=== PATIENT | male | born 1945 | race Caucasian/White ===

== ENCOUNTER → 2017-12-11 06:11 | Outpatient (CLI) | payer MEDICARE, SELFPAY ==
[2017-12-11 08:11] LABS: Hemoglobin A1c 7.4 % (4.2-6.3)
[2017-12-11 08:38] LABS: Anion Gap 8 (5-15); BUN 29 mg/dL (7-18); BUN/Creat Ratio 14.4 RATIO (10-20); Chloride 105 mmol/L (98-107); Creatinine, Serum 2.02 mg/dL (0.70-1.30); EST Glomerular Filtration Rate 35 mL/min (>60); Est Glom Filt Rate - Afr Amer 42 mL/min (>60); Glucose 84 mg/dL (74-106); Potassium 4.3 mmol/L (3.5-5.1); Sodium Level 136 mmol/L (136-145)
== END ==
PROVIDERS: Family Provider Family Medicine; PCP Family Medicine; Visit Provider Family Medicine
DX: E11.9 Type 2 diabetes mellitus without complications (principal); R97.20 Elevated prostate specific antigen [PSA]
CPT/HCPCS: 36415; 80048; 83036; 84153

== ENCOUNTER → 2018-01-30 09:54 | Outpatient (CLI) | payer MEDICARE, SELFPAY ==
[2018-01-30 11:20] LABS: AST(SGOT) 19 U/L (15-37); Alanine Aminotransfer ALT/SGPT 20 U/L (16-61); Albumin, Serum 3.7 g/dL (3.2-5.0); Alkaline Phosphatase 96 U/L (45-117); Bilirubin, Direct 0.17 mg/dL (0.00-0.30); Cholesterol 131 mg/dL (200); Globulin 3.8 g/dL (2.2-4.2); High Density Lipoprotein 36 mg/dL; Protein, Total 7.5 g/dL (6.4-8.2); Triglycerides 146 mg/dL; Very Low Density Lipoprotein 29 mg/dL (5-40)
== END ==
PROVIDERS: Physician Assistant Medical; Family Provider Family Medicine; PCP Family Medicine; Visit Provider Internal Medicine Cardiovascular Disease
DX: E78.5 Hyperlipidemia, unspecified (principal); I10 Essential (primary) hypertension; I25.810 Atherosclerosis of coronary artery bypass graft(s) without angina pectoris; E11.9 Type 2 diabetes mellitus without complications; I25.5 Ischemic cardiomyopathy; Z79.899 Other long term (current) drug therapy
CPT/HCPCS: 36415; 80061; 80076

== ENCOUNTER → 2018-03-27 08:25 | Outpatient (CLI) | payer MEDICARE, SELFPAY ==
[2018-03-27 08:48] LABS: Absolute Lymphocyte Count 2.49 X10^3/ul (0.83-4.51); Absolute Neutrophil Count 4.3 X10^3/uL (2.0-7.7); Basophil# 0.02 X10^3/uL; Basophil% 0.3 % (0-1); Eosinophil# 0.17 X10^3/uL; Eosinophils% 2.2 % (0-5); Hematocrit 35.6 % (40-54); Hemoglobin 11.5 g/dl (13.0-16.5); Lymphocyte # 2.49 X10^3/ul (4.0); Lymphocyte % 32.8 % (19-41); Mean Corp Hgb Conc 32.3 g/gl (32-36); Mean Corpuscular Volume 89.9 fL (80-94); Mean Platelet Vol. 11.1 fl (6.2-12.0); Monocyte# 0.59 X10^3/uL; Monocyte% 7.8 % (0-10); Neutrophil # 4.31 X10^3/uL (2.7-7.7); Neutrophil % 56.8 % (47-70); Platelet Count 234 K/mm3 (150-450); RBC Distribution Width CV 13.1 % (11.6-14.6); Red Blood Count 3.96 M/mm3 (4.6-6.2); White Blood Count 7.6 K/mm3 (4.4-11.0)
[2018-03-27 08:49] LABS: POSITIVE COUNT NO; POSITIVE DIFFERENTIAL NO; POSITIVE MORPHOLOGY NO
[2018-03-27 09:04] LABS: Hemoglobin A1c 6.9 % (4.2-6.3)
[2018-03-27 09:22] LABS: Anion Gap 7 (5-15); BUN 22 mg/dL (7-18); BUN/Creat Ratio 10.3 RATIO (10-20); Calcium,Total 8.6 mg/dL (8.5-10.1); Chloride 103 mmol/L (98-107); Creatinine, Serum 2.14 mg/dL (0.70-1.30); EST Glomerular Filtration Rate 32 mL/min (>60); Est Glom Filt Rate - Afr Amer 39 mL/min (>60); Glucose 96 mg/dL (74-106); Potassium 3.9 mmol/L (3.5-5.1); Sodium Level 140 mmol/L (136-145)
== END ==
PROVIDERS: Family Provider Family Medicine; PCP Family Medicine; Visit Provider Nurse Practitioner Adult Health
DX: E11.9 Type 2 diabetes mellitus without complications (principal); N18.3 Chronic kidney disease, stage 3 (moderate); R97.20 Elevated prostate specific antigen [PSA]
CPT/HCPCS: 36415; 80048; 83036; 84153; 85025

== ENCOUNTER 2018-03-29 08:06 | Observation (INO) | payer MEDICARE, SELFPAY ==
[2018-03-29] VITALS (14 sets, daily range): BP systolic 109–176; BP diastolic 58–83; PULSE 65–92; RESP 16–18; TEMP 36–37.3; O2SAT 93–100; BMI 23.8; BMI 24.3
--- NOTE | 2018-03-29 08:16 | EKG12_ITS ---
Test Reason : MALE PAIN Blood Pressure : / mmHG Vent. Rate : 066 BPM Atrial Rate : 066 BPM P-R Int : 148 ms QRS Dur : 088 ms QT Int : 410 ms P-R-T Axes : 043 021 143 degrees QTc Int : 429 ms Sinus rhythm with frequent Premature ventricular complexes Septal infarct , age undetermined ST & T wave abnormality, consider inferolateral ischemia Abnormal ECG Confirmed by LOUANN CIFUENTES, GLENNA ([id number]), brands editor CARLITA VASQUEZ ([id number]) on 04/03/2018 3:40:17 PM Referred By: Nilda Irwin Confirmed By:GLENNA LEW MD
--- NOTE | 2018-03-29 08:16 | RAD_ITS ---
STUDY: X-RAY CHEST REASON FOR EXAM: Male, 72 years old. Pre-op abdominal surgery. TECHNIQUE: Single AP portable view of the chest. COMPARISON: 02/01/15. FINDINGS: The lungs are clear and expanded. Very mild pleural-parenchymal scarring in the lower left lung. There is no demonstrated pleural abnormality. Sternal cerclage wires and vascular clips are present from a prior sternotomy and coronary artery bypass graft procedure (CABG). Normal mediastinum and clay. Normal visualized pulmonary arteries. Normal visualized aortic arch and descending thoracic aorta. Normal visualized thoracic spine. Normal visualized ribs, clavicles, and shoulders. There is no demonstrated abnormality of the visualized soft tissue structures of the upper abdomen. RAD/Chest 1 View (Portable) IMPRESSION: No acute chest disease. Electronically Signed: Deejay Quiñones MD at 9:03 EDT , Service support ,
[2018-03-29] MEDS: 0.9% Normal Saline 1,000 ML 150 ML IV (08:37)
[2018-03-29] MEDS: Morphine 4 MG/ML Syringe IV (08:37)
[2018-03-29] MEDS: Ondansetron 4 MG/2 ML Vial IV ×2 (08:38→17:28)
--- NOTE | 2018-03-29 08:40 | ED.VISSUMM ---
- ER Visit Summary Date of Service: 03/29/18 Chief Complaint: Severe right groin pain History of Present Illness: The patient is a 72 M who presents because of severe right groin pain. He states he has had a hernia for some time and never had it checked. He does complain of mild nausea. He denies dysuria, frequency, urgency or hematuria. He denies fever, chills or night sweats. He denies any cardiac respiratory symptoms. He last ate last evening. He is not on any anticoagulant. He does have history of coronary disease and Dr. Zabala is his chief counsel. He also has history of type 2 diabetes and hypertension and GERD. PCP is Dr. ALAN Bagley. Physical Examination: Patient appears uncomfortable. Blood pressure elevated 165/70. HEENT exam is remarkable poor dentition. Trach is midline. There is no stridor. There is no carotid bruit. Heart is irregular. Monitor reveals frequent PVCs. Lungs are clear to auscultation. Abdomen soft nontender. Patient has a large right inguinal hernia that is not reducible. There are no penile lesions or discharge noted. There is no CVA tenderness. Neuro exam is nonfocal. Test Results: Portable chest x-ray reveals no acute process. Median sternotomy wires noted. Surgical clips noted as well. There is no acute process noted. Bony structures appear normal. X-ray was compared to film obtained on February 01, 2015 and unchanged. Twelve-lead EKG reveals a sinus rhythm with frequent premature ventricular beats. Decreased anterior force. Blood work is pending. Emergency Department Course and Treatment: Dr. Trinidad was paged after seeing patient and informed of his findings, history and past medical history. EKG, chest x-ray and appropriate blood work was obtained. IV was established and he was medicated with 4 mg of Zofran and 4 mg of morphine IV push. Treatment Plan: To OR Disposition: Per Dr. Derrick Henning Impression: 1. Non-reducible right inguinal hernia 2. History of coronary disease 3. History of type 2 diabetes 4. History of hypertension This note was generated with Orbsteration software. It may contain incorrect words, spelling, and punctuation that were not noted in review of the chart prior to signing ED Disposition - Plan for ED Patient: Chief Complaint: Male Pain/Injury Referrals: Saman Bagley MD [Primary Care Provider] -
--- NOTE | 2018-03-29 08:45 | ED.DCSUM_ITS ---
- ER Visit Summary Date of Service: 03/29/18 Chief Complaint: Severe right groin pain History of Present Illness: The patient is a 72 M who presents because of severe right groin pain. He states he has had a hernia for some time and never had it checked. He does complain of mild nausea. He denies dysuria, frequency , urgency or hematuria. He denies fever, chills or night sweats. He denies any cardiac respiratory symptoms. He last ate last evening. He is not on any anticoagulant. He does have history of coronary disease and Dr. Zabala is his suction plate roller hand. He also has history of type 2 diabetes and hypertension and GERD. PCP is Dr. ALAN Bagley. Physical Examination: Patient appears uncomfortable. Blood pressure elevated 165/70. HEENT exam is remarkable poor dentition. Trach is midline. There is no stridor. There is no carotid bruit. Heart is irregular. Monitor reveals frequent PVCs. Lungs are clear to auscultation. Abdomen soft nontender. Patient has a large right inguinal hernia that is not reducible. There are no penile lesions or discharge noted. There is no CVA tenderness. Neuro exam is nonfocal. Test Results: Portable chest x-ray reveals no acute process. Median sternotomy wires noted. Surgical clips noted as well. There is no acute process noted. Bony structures appear normal. X-ray was compared to film obtained on January and unchanged. Twelve-lead EKG reveals a sinus rhythm with frequent premature ventricular beats. Decreased anterior force. Blood work is pending. Emergency Department Course and Treatment: Dr. Trinidad was paged after seeing patient and informed of his findings, history and past medical history. EKG, chest x-ray and appropriate blood work was obtained. IV was established and he was medicated with 4 mg of Zofran and 4 mg of morphine IV push. Treatment Plan: To OR Disposition: Per Dr. Derrick Henning Impression: 1. Non-reducible right inguinal hernia 2. History of coronary disease 3. History of type 2 diabetes 4. History of hypertension This note was generated with MOBEXOation software. It may contain incorrect words, spelling, and punctuation that were not noted in review of the chart prior to signing ED Disposition - Plan for ED Patient: Chief Complaint: Male Pain/Injury Referrals: Saman Bagley MD [Primary Care Provider] -
[2018-03-29 08:53] LABS: Absolute Lymphocyte Count 2.64 X10^3/ul (0.83-4.51); Absolute Neutrophil Count 6.2 X10^3/uL (2.0-7.7); Basophil# 0.02 X10^3/uL; Basophil% 0.2 % (0-1); Eosinophil# 0.14 X10^3/uL; Eosinophils% 1.4 % (0-5); Hematocrit 37.4 % (40-54); Hemoglobin 12.4 g/dl (13.0-16.5); Lymphocyte # 2.64 X10^3/ul (4.0); Lymphocyte % 26.2 % (19-41); Mean Corp Hgb Conc 33.2 g/gl (32-36); Mean Corpuscular Volume 90.6 fL (80-94); Mean Platelet Vol. 11.7 fl (6.2-12.0); Monocyte# 1.11 X10^3/uL; Neutrophil # 6.16 X10^3/uL (2.7-7.7); Platelet Count 251 K/mm3 (150-450); RBC Distribution Width CV 12.8 % (11.6-14.6); RBC Distribution Width SD 41.7 fl (35.1-43.9); Red Blood Count 4.13 M/mm3 (4.6-6.2); White Blood Count 10.1 K/mm3 (4.4-11.0)
--- NOTE | 2018-03-29 08:53 | PCM.HP.STD ---
Problem List (1) Incarcerated right inguinal hernia Status: Acute History of Present Illness Date of Admission: 03/29/18 The patient is a 72 year old M who presents to the emergency room this morning. He presents with a 2 day history of severe right groin pain. He has had a many year history of a right anal hernia. There is been intermittently symptomatic but he never thought severe enough to deserve attention. Yesterday developed severe pain and bulging. He denies nausea or vomiting. He notes that there is been diaphoresis. His past history is notable for diabetes. He has had coronary bypass grafting 2 years ago. In 2013 he had congestive heart failure. He is diabetic and he has spontaneous eruptions of ulcers of both lower extremities. Primary care physician Dr. ALAN Bagley and vp research is Dr. Napoleon Zabala. The patient is complaining currently of severe right groin pain. An attempt was made by Dr. Lu to reduce it. That was not successful. 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) CAB04/30/2014 [facility], DIAG, SVG-OM, SVG-PDA RCA Atherosclerotic heart disease of [place] coronary artery without angina pectoris (Chronic) CAD (coronary artery disease) (Chronic) Cardiomyopathy, ischemic (Chronic) Pure hypercholesterolemia (Chronic) HTN (hypertension) (Chronic) Type II diabetes mellitus (Chronic) HLD (hyperlipidemia) (Chronic) Congestive heart failure (Chronic) Medical History: Medical History (Last Reviewed 02/07/18 @ 09:43 by Napoleon Zabala MD) Atherosclerosis of coronary artery bypass graft without angina pectoris (Chronic) I25.810 CAB04/30/2014 [facility], DIAG, SVG-OM, SVG-PDA RCA Atherosclerotic heart disease of [place] coronary artery without angina pectoris (Chronic) I25.10 Cardiomyopathy, ischemic (Chronic) I25.5 HTN (hypertension) (Chronic) I10 Type II diabetes mellitus (Chronic) E11.9 HLD (hyperlipidemia) (Chronic) E78.5 Congestive heart failure (Chronic) I50.9 Bilateral pleural effusion J90 Allergies No Known Allergies Allergy (Verified 03/29/18 08:17) Home Medications: Ambulatory Orders Medication Instructions Recorded Atorvastatin Calcium [Lipitor] 80 mg PO QHS 04/26/14 Glimepiride 4 mg PO DAILY 04/26/14 Aspirin [Aspirin, Baby] 81 mg PO DAILY@0800 09/29/14 Furosemide [Lasix] 40 mg PO DAILY #30 tab 10/15/14 carvedilol 12.5 mg tablet 12.5 mg PO BID #180 tab 01/28/18 escitalopram 10 mg tablet 10 mg PO QDAY 30 Days #30 tab 02/04/18 lisinopril 5 mg tablet 5 mg PO QDAY #90 tab 02/07/18 metformin 850 mg tablet 850 mg PO BID 30 Days #60 tab 02/07/18 pantoprazole 40 mg tablet,delayed 40 mg PO QDAY 30 Days #30 tab 02/07/18 release Surgical History: Surgical History (Last Reviewed 02/07/18 @ 09:43 by Napoleon Zabala MD) History of left heart catheterization (LHC) Z98.890 Left heart cath March 2012; LHC W/ IABP INsertion 04/27/14 History of thoracentesis Z98.890 Surgical History: coronary bypass surgery, - - CABG Smoking Status: Never smoker - *Family History Maternal Family History: Family History (Last Reviewed 02/07/18 @ 09:43 by Napoleon Zabala MD) Brother CAD (coronary artery disease) History Items: No pertinent history Sibling Family History: Family History (Last Reviewed 02/07/18 @ 09:43 by Napoleon Zabala MD) Brother CAD (coronary artery disease) History Items: Heart Disease Review of Systems Constitutional: Reports: Night Sweats Eyes: Denies: Blurred vision HEENT: Reports: Difficulty Hearing Cardiovascular: Reports: Claudication. Denies: Chest Pain, Chest Pressure Respiratory: Denies: Cough Gastrointestinal: Reports: Abdominal Pain Genitourinary: Denies: Dysuria Musculoskeletal: Denies: Arm Pain Skin: Reports: Wounds, -. Denies: Dryness Neurological: Denies: Balance problems Psychiatric: Denies: Anxiety VTE Information - Inpt Only VTE Present on Admission: No Patient Problems: Active and Suspected Problems (Last Reviewed 02/07/18 @ 09:43 by Napoleon Zabala MD) Incarcerated right inguinal hernia (Acute) - Physical Exam General: Alert, - - Patient is diaphoretic. Clearly uncomfortable. [place] respirations due to discomfort and pain. Lying supine HEENT: Atraumatic Oral: Moist Mucosa Neck: Supple, - - 3+ carotid pulses no bruits Lungs: Clear to auscultation Cardiovascular: Regular rate Abdomen: - - Abdomen is tightly distended, bowel sounds absent, very large right inguinal hernia with palpable bowel, tender to even light palpation, nonreducible, testicle cannot be from the loops of bowel Extremities: - - Areas of punctate ulceration bilateral lower extremities with erythema, no drainage Musculoskeletal: - - Muscle wasting of bilateral lower extremities noted. Calves are supple nontender Lymphatic: No Cervical, Supraclavicular, or Inguinal Adenopathy Neurological: Cranial nerves II-XII grossly intact Psych/Mental Status: Anxious Vital Signs Temp Pulse Resp BP Pulse Ox 97.9 F 65 18 169/76 H 99 03/29/18 08:41 03/29/18 08:41 03/29/18 08:41 03/29/18 08:41 03/29/18 08:41 Oxygen Delivery Method Room Air Weight: 138 lb 7.205 oz Body Mass Index (BMI) 23.8 Laboratory Tests Past 24 Hrs 03/29/18 03/29/18 03/29/18 08:40 08:40 08:40 WBC Pending RBC Pending Hgb Pending Hct Pending MCV Pending MCH Pending MCHC Pending RDW Pending RDW Differential Pending Plt Count Pending Neut % (Auto) Pending Absolute Neuts (auto) Pending Total Counted Pending PT Pending INR Pending APTT Pending Sodium Pending Potassium Pending Chloride Pending Carbon Dioxide Pending Anion Gap Pending BUN Pending Creatinine Pending Est GFR (MDRD) Af Amer Pending Est GFR (MDRD) Non-Af Pending BUN/Creatinine Ratio Pending Glucose Pending Calcium Pending Assessment/Plan All Active Problems (Last Reviewed 02/07/18 @ 09:43 by Napoleon Zabala MD) Incarcerated right inguinal hernia (Acute) Systolic CHF, acute on chronic (Acute) Dyspnea (Acute) 72-year-old gentleman who clearly is an acute abdominal and groin distress. It is evident that he has likely cecum and multiple loops of bowel incarcerated within a right inguinal hernia. The viability of the bowel is not clear. He is diaphoretic. EKG shows septal infarct age undetermined. ST and T-wave abnormality possible inferior lateral ischemia. I will consult cardiology. I recommended the patient a laparoscopic visualization of the bowel to assess for viability. Possible laparoscopic repair possible open repair possible laparotomy possible ileostomy possible colostomy. Possible utilization of mesh. The patient and his are aware that this is now a very high risk intervention. The patient may require ICU stay and ventilatory management postoperatively. He has had an opportunity to ask and have questions answered. He is received with surgical intervention. Derrick Henning M.D., F.A.C.S.
[2018-03-29 08:54] LABS: POSITIVE COUNT NO; POSITIVE DIFFERENTIAL NO; POSITIVE MORPHOLOGY NO
[2018-03-29 08:55] LABS: Bedside Glucose 131 mg/dL (70-110)
--- NOTE | 2018-03-29 09:01 | HP.PCM_ITS ---
Problem List (1) Incarcerated right inguinal hernia Status: Acute History of Present Illness Date of Admission: 03/29/18 The patient is a 72 year old M who presents to the emergency room this morning. He presents with a 2 day history of severe right groin pain. He has had a many year history of a right anal hernia. There is been intermittently symptomatic but he never thought severe enough to deserve attention. Yesterday developed severe pain and bulging. He denies nausea or vomiting. He notes that there is been diaphoresis. His past history is notable for diabetes. He has had coronary bypass grafting 2 years ago. In 2013 he had congestive heart failure. He is diabetic and he has spontaneous eruptions of ulcers of both lower extremities. Primary care physician Dr. ALAN Bagley and drawing frame tender is Dr. Napoleon Zabala. The patient is complaining currently of severe right groin pain. An attempt was made by Dr. Lu to reduce it. That was not successful. 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 ) CAB04/30/2014 [facility], DIAG, SVG-OM, SVG-PDA RCA Atherosclerotic heart disease of [place] coronary artery without angina pectoris (Chronic) CAD (coronary artery disease) (Chronic) Cardiomyopathy, ischemic (Chronic) Pure hypercholesterolemia (Chronic) HTN (hypertension) (Chronic) Type II diabetes mellitus (Chronic) HLD (hyperlipidemia) (Chronic) Congestive heart failure (Chronic) Medical History: Medical History (Last Reviewed 02/07/18 @ 09:43 by Napoleon Zabala MD) Atherosclerosis of coronary artery bypass graft without angina pectoris (Chronic ) I25.810 CAB04/30/2014 [facility], DIAG, SVG-OM, SVG-PDA RCA Atherosclerotic heart disease of [place] coronary artery without angina pectoris (Chronic) I25.10 Cardiomyopathy, ischemic (Chronic) I25.5 HTN (hypertension) (Chronic) I10 Type II diabetes mellitus (Chronic) E11.9 HLD (hyperlipidemia) (Chronic) E78.5 Congestive heart failure (Chronic) I50.9 Bilateral pleural effusion J90 Allergies No Known Allergies Allergy (Verified 03/29/18 08:17) Home Medications: Ambulatory Orders Medication Instructions Recorded Atorvastatin Calcium [Lipitor] 80 mg PO QHS 04/26/14 Glimepiride 4 mg PO DAILY 04/26/14 Aspirin [Aspirin, Baby] 81 mg PO DAILY@0800 09/29/14 Furosemide [Lasix] 40 mg PO DAILY #30 tab 10/15/14 carvedilol 12.5 mg tablet 12.5 mg PO BID #180 tab 01/28/18 escitalopram 10 mg tablet 10 mg PO QDAY 30 Days #30 tab 02/04/18 lisinopril 5 mg tablet 5 mg PO QDAY #90 tab 02/07/18 metformin 850 mg tablet 850 mg PO BID 30 Days #60 tab 02/07/18 pantoprazole 40 mg tablet,delayed 40 mg PO QDAY 30 Days #30 tab 02/07/18 release Surgical History: Surgical History (Last Reviewed 02/07/18 @ 09:43 by Napoleon Zabala MD) History of left heart catheterization (LHC) Z98.890 Left heart cath March 2012; LHC W/ IABP INsertion 04/27/14 History of thoracentesis Z98.890 Surgical History: coronary bypass surgery, - - CABG Smoking Status: Never smoker - *Family History Maternal Family History: Family History (Last Reviewed 02/07/18 @ 09:43 by Napoleon Zabala MD) Brother CAD (coronary artery disease) History Items: No pertinent history Sibling Family History: Family History (Last Reviewed 02/07/18 @ 09:43 by Napoleon Zabala MD) Brother CAD (coronary artery disease) History Items: Heart Disease Review of Systems Constitutional: Reports: Night Sweats Eyes: Denies: Blurred vision HEENT: Reports: Difficulty Hearing Cardiovascular: Reports: Claudication. Denies: Chest Pain, Chest Pressure Respiratory: Denies: Cough Gastrointestinal: Reports: Abdominal Pain Genitourinary: Denies: Dysuria Musculoskeletal: Denies: Arm Pain Skin: Reports: Wounds, -. Denies: Dryness Neurological: Denies: Balance problems Psychiatric: Denies: Anxiety VTE Information - Inpt Only VTE Present on Admission: No Patient Problems: Active and Suspected Problems (Last Reviewed 02/07/18 @ 09:43 by Napoleon Zabala MD ) Incarcerated right inguinal hernia (Acute) - Physical Exam General: Alert, - - Patient is diaphoretic. Clearly uncomfortable. [place] respirations due to discomfort and pain. Lying supine HEENT: Atraumatic Oral: Moist Mucosa Neck: Supple, - - 3+ carotid pulses no bruits Lungs: Clear to auscultation Cardiovascular: Regular rate Abdomen: - - Abdomen is tightly distended, bowel sounds absent, very large right inguinal hernia with palpable bowel, tender to even light palpation, nonreducible, testicle cannot be from the loops of bowel Extremities: - - Areas of punctate ulceration bilateral lower extremities with erythema, no drainage Musculoskeletal: - - Muscle wasting of bilateral lower extremities noted. Calves are supple nontender Lymphatic: No Cervical, Supraclavicular, or Inguinal Adenopathy Neurological: Cranial nerves II-XII grossly intact Psych/Mental Status: Anxious Vital Signs Temp Pulse Resp BP Pulse Ox 97.9 F 65 18 169/76 H 99 03/29/18 08:41 03/29/18 08:41 03/29/18 08:41 03/29/18 08:41 03/29/18 08:41 Oxygen Delivery Method Room Air Weight: 138 lb 7.205 oz Body Mass Index (BMI) 23.8 Laboratory Tests Past 24 Hrs 03/29/18 03/29/18 03/29/18 08:40 08:40 08:40 WBC Pending RBC Pending Hgb Pending Hct Pending MCV Pending MCH Pending MCHC Pending RDW Pending RDW Differential Pending Plt Count Pending Neut % (Auto) Pending Absolute Neuts (auto) Pending Total Counted Pending PT Pending INR Pending APTT Pending Sodium Pending Potassium Pending Chloride Pending Carbon Dioxide Pending Anion Gap Pending BUN Pending Creatinine Pending Est GFR (MDRD) Af Amer Pending Est GFR (MDRD) Non-Af Pending BUN/Creatinine Ratio Pending Glucose Pending Calcium Pending Assessment/Plan All Active Problems (Last Reviewed 02/07/18 @ 09:43 by Napoleon Zabala MD) Incarcerated right inguinal hernia (Acute) Systolic CHF, acute on chronic (Acute) Dyspnea (Acute) 72-year-old gentleman who clearly is an acute abdominal and groin distress. It is evident that he has likely cecum and multiple loops of bowel incarcerated within a right inguinal hernia. The viability of the bowel is not clear. He is diaphoretic. EKG shows septal infarct age undetermined. ST and T-wave abnormality possible inferior lateral ischemia. I will consult cardiology. I recommended the patient a laparoscopic visualization of the bowel to assess for viability. Possible laparoscopic repair possible open repair possible laparotomy possible ileostomy possible colostomy. Possible utilization of mesh. The patient and his are aware that this is now a very high risk intervention. The patient may require ICU stay and ventilatory management postoperatively. He has had an opportunity to ask and have questions answered. He is received with surgical intervention. Derrick Henning M.D., F.A.C.S.
[2018-03-29 09:17] LABS: Anion Gap 8 (5-15); BUN 22 mg/dL (7-18); Calcium,Total 9.2 mg/dL (8.5-10.1); Chloride 103 mmol/L (98-107); EST Glomerular Filtration Rate 31 mL/min (>60); Est Glom Filt Rate - Afr Amer 38 mL/min (>60); Estimated Creatinine Clearance 24.67 ml/min; Glucose 145 mg/dL (74-106); Sodium Level 138 mmol/L (136-145)
[2018-03-29 09:27] LABS: International Normalized Ratio 1.1; Prothrombin Time (Protime)PT. 13.7 SECONDS (11.7-14.9)
--- NOTE | 2018-03-29 09:36 | EKGRS_ITS ---
Test Reason : PRE OP Blood Pressure : / mmHG Vent. Rate : 063 BPM Atrial Rate : 063 BPM P-R Int : 136 ms QRS Dur : 104 ms QT Int : 434 ms P-R-T Axes : 047 006 179 degrees QTc Int : 444 ms Sinus rhythm with occasional Premature ventricular complexes ST & T wave abnormality, consider lateral ischemia Abnormal ECG Confirmed by LOUANN CIFUENTES, GLENNA ([id number]), art editor CARLITA VASQUEZ ([id number]) on 04/03/2018 4:05:04 PM Referred By: Nilda Irwin Confirmed By:GLENNA LEW MD
--- NOTE | 2018-03-29 11:19 | PCM.CONS.C ---
Problem List (1) CAD (coronary artery disease) Status: Chronic Qualifiers: Coronary Disease-Associated Artery/Lesion type: bypass graft [place] vs. transplanted heart: [place] heart Associated angina: without angina Qualified Code(s): I25.810 - Atherosclerosis of coronary artery bypass graft(s) without angina pectoris (2) S/P CABG (coronary artery bypass graft) Status: Chronic (3) Cardiomyopathy, ischemic Status: Chronic (4) CHF (congestive heart failure) Status: Chronic Qualifiers: Heart failure type: systolic (5) HLD (hyperlipidemia) Status: Chronic (6) HTN (hypertension) Status: Chronic (7) Type II diabetes mellitus Status: Chronic (8) Incarcerated right inguinal hernia Status: Acute (9) Preop cardiovascular exam Status: Acute Reason for Consult Date of Consultation: 03/29/18 History of Present Illness: The patient is a 72 year old white male with a past cardiovascular history of underlying CAD, status post CABG, ischemic mediated cardiomyopathy, chronic systolic CHF, hyperlipidemia, and hypertension who now presents for an incarcerated inguinal hernia requiring urgent/emergent surgical intervention. The patient, since his last outpatient cardiovascular visit on 02/07/2018, states that he had been doing well with respect to his cardiovascular status. He has denied any ongoing chest discomfort or difficulty breathing at rest or with exertion. There has been no orthopnea, PND, or peripheral pitting edema. He has not had any near-syncope or syncope. He states that his inguinal hernia has markedly enlarged within the last 1-2 days and has become painful. He presented to the emergency department for evaluation. He has been deemed to have an incarcerated inguinal hernia requiring urgent/emergent surgical intervention. He has had a preoperative ECG performed. His ECG has demonstrated underlying sinus rhythm with PVCs with ST and T-wave changes potentially compatible with inferolateral myocardial ischemia. His ECG was repeated without significant change. It was compared to a previous ECG from 02/01/2015. Again there were similar type findings. The patient has undergone previous evaluation on 10/14/2014 which included a transthoracic echocardiogram. At that time he had moderately severe segmental systolic dysfunction with an LVEF of 30% with mild diffuse mitral valve thickening with mild papillary muscle dysfunction with mild diffuse aortic valve thickening and mild focal aortic valve calcification. He did have a calcified aortic root. [] Past Medical History Allergies/Adverse Reactions: Allergies No Known Allergies Allergy (Verified 03/29/18 08:17) Home Medications: Ambulatory Orders Medication Instructions Recorded Atorvastatin Calcium [Lipitor] 80 mg PO QHS 04/26/14 Glimepiride 4 mg PO DAILY 04/26/14 Aspirin [Aspirin, Baby] 81 mg PO DAILY@0800 09/29/14 Furosemide [Lasix] 40 mg PO DAILY #30 tab 10/15/14 carvedilol 12.5 mg tablet 12.5 mg PO BID #180 tab 01/28/18 escitalopram 10 mg tablet 10 mg PO QDAY 30 Days #30 tab 02/04/18 lisinopril 5 mg tablet 5 mg PO QDAY #90 tab 02/07/18 metformin 850 mg tablet 850 mg PO BID 30 Days #60 tab 02/07/18 pantoprazole 40 mg tablet,delayed 40 mg PO QDAY 30 Days #30 tab 02/07/18 release Past Medical History (Chronic Problems): Chronic Problems (Last Reviewed 02/07/18 @ 09:43 by Napoleon Zabala MD) S/P CABG (coronary artery bypass graft) (Chronic) CHF (congestive heart failure) (Chronic) Claudication of both lower extremities (Chronic) Atherosclerosis of coronary artery bypass graft without angina pectoris (Chronic) CAB04/30/2014 [facility] [place], DIAG, SVG-OM, SVG-PDA RCA Atherosclerotic heart disease of [place] coronary artery without angina pectoris (Chronic) CAD (coronary artery disease) (Chronic) Cardiomyopathy, ischemic (Chronic) Pure hypercholesterolemia (Chronic) HTN (hypertension) (Chronic) Type II diabetes mellitus (Chronic) HLD (hyperlipidemia) (Chronic) Congestive heart failure (Chronic) Surgical History: coronary bypass surgery, - - CABG - *Family History Maternal Family History: Family History (Last Reviewed 02/07/18 @ 09:43 by Napoleon Zabala MD) Brother CAD (coronary artery disease) History Items: No pertinent history Sibling Family History: Family History (Last Reviewed 02/07/18 @ 09:43 by Napoleon Zabala MD) Brother CAD (coronary artery disease) History Items: Heart Disease Lives: Spouse/ Significant Other Smoking Status: Never smoker Alcohol: None Drugs: None Review of Systems - Review of Systems General: Denies: Fever, Night Sweats, Fatigue Cardiovascular: Denies: Chest Discomfort, Shortness of Breath, Orthopnea, PND, Peripheral Edema, Palpitations, Lightheadedness, Dizziness, Near Syncope, Syncope Respiratory: Denies: Cough, Sputum Production, Hemoptysis Gastrointestinal: Reports: Abdominal Discomfort. Denies: Hematemesis, Hematochezia, Melena Genitourinary: Reports: - - Enlarged scrotum compatible with the diagnosis of an incarcerated inguinal hernia. Denies: Dysuria, Hematuria Skin: Denies: Rash Subjectve: This is a 72-year-old white male who appears to be resting comfortably at the moment in no acute cardiovascular distress. Objective: Vital Signs Temp Pulse Resp BP Pulse Ox 97.9 F 65 18 169/76 H 99 03/29/18 08:41 03/29/18 09:23 03/29/18 09:23 03/29/18 09:23 03/29/18 09:23 Oxygen Delivery Method Room Air Weight: 138 lb 7.205 oz Body Mass Index (BMI) 23.8 General: Awake, Alert, Oriented x 3, Cooperative, No Acute Distress HEENT: Atraumatic, Normocephalic, PERRL, EOMI, Sclera Non Icteric Oral: Moist Mucosa Neck: Supple, Good ROM, No JVD Lungs: Clear to auscultation Cardiovascular: Regular Rhythm, Premature Ectopic Beats, Normal S1, Normal S2 Vascular: No Carotid Bruits Abdomen: Bowel Sounds Present, Soft Genitalia: Scrotal Edema Extremities: No Cyanosis, No Clubbing, No edema Neurological: No Focal Motor or Sensory Deficit Psych/Mental Status: Appropriate, Normal Affect 03/29/18 08:40: WBC 10.1, RBC 4.13 L, Hgb 12.4 L, Hct 37.4 L, MCV 90.6, MCH 30.0, MCHC 33.2, RDW 12.8, RDW Differential 41.7, Plt Count 251, MPV 11.7, Immature Gran % (Auto) 0.200, Neut % (Auto) 61.0, Lymph % (Auto) 26.2, [place] % (Auto) 11.0 H, Eos % (Auto) 1.4, Baso % (Auto) 0.2, Absolute Neuts (auto) 6.2, Total Counted Not Reportable 03/29/18 08:40: PT 13.7, INR 1.1, APTT 29.0 03/29/18 08:40: Sodium 138, Potassium 4.0, Chloride 103, Carbon Dioxide 27.0, Anion Gap 8, BUN 22 H, Creatinine 2.20 H, Est GFR (MDRD) Af Amer 38 L, Est GFR (MDRD) Non-Af 31 L, BUN/Creatinine Ratio 10.0, Glucose 145 H, Calcium 9.2 03/29/18 08:40: Troponin I 0.016 Rhythm: Sinus rhythm; PVCs EKG: As noted above ECHO: As noted above Cardiac Cath: 04/27/2014: [facility]: LVEF reported at 20-25%; left main coronary artery patent; LAD with proximal 50% stenosis and mid to distal 70-80% stenosis; first diagonal branch with proximal 70% stenosis; LCx with proximal 90-99% stenosis; first OM with 70% stenosis; RCA with proximal 70-80% stenosis, mid 80-90% stenosis, and distal 70% stenosis; right PDA with 80% stenosis CT Surgery: 2013: [facility]: F[place] to the LAD-diagonal distal branch; SVG to the OM; SVG to the distal right PDA CXR: Preliminary evaluation: Post open heart surgery changes: Please see official report Assessment/Plan 1. CAD status post CABG The patient has no symptoms of acute coronary syndrome. He will continue medical management as deemed appropriate. It does not appear he requires additional cardiac diagnostic studies or therapeutic intervention at this time with respect to his underlying CAD status. 2. Ischemic mediated cardiomyopathy The patient does have an ischemic mediated cardiomyopathy. His overall LV systolic function has changed over time. This will need to be followed over time. In the interim he does not appear to have any acute symptoms with respect to acute on chronic systolic CHF. Thus she will continue medical management. 3. Chronic systolic CHF The patient has a history of chronic systolic CHF. At the moment he appears to be without any acute changes. He will continue medical therapy and follow-up. 4. Hyperlipidemia The patient should continue lipid-lowering therapy as part of his cardiovascular risk factor modification. 5. Hypertension The patient's blood pressure will need be followed. His medications can be adjusted as needed. 6. Diabetes mellitus The patient will continue under the care of internal medicine. 7. Incarcerated inguinal hernia The patient has been evaluated by Dr. Derrick Henning of general surgery and Dr. Anthony Martin of anesthesiology. He has been deemed in need of urgent/emergent surgery. 8. Preoperative cardiovascular evaluation At the present time the patient appears to be without acute cardiovascular symptoms. He is in need of urgent/emergent general surgery. It would be recommended that he have close monitoring of his cardiac rate, rhythm, and blood pressure during and after his surgical procedure. He should continue his medical therapy as best as possible in and around the time of his surgical procedure especially with respect to his beta-hernán therapy. Attempt should be made to avoid IV volume overload that may bring out acute on chronic systolic CHF symptoms/objective changes. Following surgery it would not be unreasonable to place the patient in a cardiac telemetry unit and/or ICU cardiovascular monitoring. The patient is, based on his previous cardiovascular condition, at an increased risk for adverse cardiovascular events from noncardiac surgery, however, hopefully with the patient appearing without acute cardiovascular symptoms and close monitoring these risk and be kept at a minimum. Comment: The above was discussed with Dr. Derrick Henning and Dr. Anthony Martin. This note was generated with [employer] dictation software. It may contain incorrect words, spelling, and punctuation that were not noted in checking the note before signing.
--- NOTE | 2018-03-29 11:29 | CON.PCM_ITS ---
Problem List (1) CAD (coronary artery disease) Status: Chronic Qualifiers: Coronary Disease-Associated Artery/Lesion type: bypass graft [place] vs. transplanted heart: [place] heart Associated angina: without angina Qualified Code(s): I25.810 - Atherosclerosis of coronary artery bypass graft(s) without angina pectoris (2) S/P CABG (coronary artery bypass graft) Status: Chronic (3) Cardiomyopathy, ischemic Status: Chronic (4) CHF (congestive heart failure) Status: Chronic Qualifiers: Heart failure type: systolic (5) HLD (hyperlipidemia) Status: Chronic (6) HTN (hypertension) Status: Chronic (7) Type II diabetes mellitus Status: Chronic (8) Incarcerated right inguinal hernia Status: Acute (9) Preop cardiovascular exam Status: Acute Reason for Consult Date of Consultation: 03/29/18 History of Present Illness: The patient is a 72 year old white male with a past cardiovascular history of underlying CAD, status post CABG, ischemic mediated cardiomyopathy, chronic systolic CHF, hyperlipidemia, and hypertension who now presents for an incarcerated inguinal hernia requiring urgent/emergent surgical intervention. The patient, since his last outpatient cardiovascular visit on 02/07/2018, states that he had been doing well with respect to his cardiovascular status. He has denied any ongoing chest discomfort or difficulty breathing at rest or with exertion. There has been no orthopnea, PND, or peripheral pitting edema. He has not had any near-syncope or syncope. He states that his inguinal hernia has markedly enlarged within the last 1-2 days and has become painful. He presented to the emergency department for evaluation. He has been deemed to have an incarcerated inguinal hernia requiring urgent/emergent surgical intervention. He has had a preoperative ECG performed. His ECG has demonstrated underlying sinus rhythm with PVCs with ST and T-wave changes potentially compatible with inferolateral myocardial ischemia. His ECG was repeated without significant change. It was compared to a previous ECG from 02/01/2015. Again there were similar type findings. The patient has undergone previous evaluation on 10/14/2014 which included a transthoracic echocardiogram. At that time he had moderately severe segmental systolic dysfunction with an LVEF of 30% with mild diffuse mitral valve thickening with mild papillary muscle dysfunction with mild diffuse aortic valve thickening and mild focal aortic valve calcification. He did have a calcified aortic root. [] Past Medical History Allergies/Adverse Reactions: Allergies No Known Allergies Allergy (Verified 03/29/18 08:17) Home Medications: Ambulatory Orders Medication Instructions Recorded Atorvastatin Calcium [Lipitor] 80 mg PO QHS 04/26/14 Glimepiride 4 mg PO DAILY 04/26/14 Aspirin [Aspirin, Baby] 81 mg PO DAILY@0800 09/29/14 Furosemide [Lasix] 40 mg PO DAILY #30 tab 10/15/14 carvedilol 12.5 mg tablet 12.5 mg PO BID #180 tab 01/28/18 escitalopram 10 mg tablet 10 mg PO QDAY 30 Days #30 tab 02/04/18 lisinopril 5 mg tablet 5 mg PO QDAY #90 tab 02/07/18 metformin 850 mg tablet 850 mg PO BID 30 Days #60 tab 02/07/18 pantoprazole 40 mg tablet,delayed 40 mg PO QDAY 30 Days #30 tab 02/07/18 release Past Medical History (Chronic Problems): Chronic Problems (Last Reviewed 02/07/18 @ 09:43 by Napoleon Zabala MD) S/P CABG (coronary artery bypass graft) (Chronic) CHF (congestive heart failure) (Chronic) Claudication of both lower extremities (Chronic) Atherosclerosis of coronary artery bypass graft without angina pectoris (Chronic ) CAB04/30/2014 [facility], DIAG, SVG-OM, SVG-PDA RCA Atherosclerotic heart disease of [place] coronary artery without angina pectoris (Chronic) CAD (coronary artery disease) (Chronic) Cardiomyopathy, ischemic (Chronic) Pure hypercholesterolemia (Chronic) HTN (hypertension) (Chronic) Type II diabetes mellitus (Chronic) HLD (hyperlipidemia) (Chronic) Congestive heart failure (Chronic) Surgical History: coronary bypass surgery, - - CABG - *Family History Maternal Family History: Family History (Last Reviewed 02/07/18 @ 09:43 by Napoleon Zabala MD) Brother CAD (coronary artery disease) History Items: No pertinent history Sibling Family History: Family History (Last Reviewed 02/07/18 @ 09:43 by Napoleon Zabala MD) Brother CAD (coronary artery disease) History Items: Heart Disease Lives: Spouse/ Significant Other Smoking Status: Never smoker Alcohol: None Drugs: None Review of Systems - Review of Systems General: Denies: Fever, Night Sweats, Fatigue Cardiovascular: Denies: Chest Discomfort, Shortness of Breath, Orthopnea, PND, Peripheral Edema, Palpitations, Lightheadedness, Dizziness, Near Syncope, Syncope Respiratory: Denies: Cough, Sputum Production, Hemoptysis Gastrointestinal: Reports: Abdominal Discomfort. Denies: Hematemesis, Hematochezia, Melena Genitourinary: Reports: - - Enlarged scrotum compatible with the diagnosis of an incarcerated inguinal hernia. Denies: Dysuria, Hematuria Skin: Denies: Rash Subjectve: This is a 72-year-old white male who appears to be resting comfortably at the moment in no acute cardiovascular distress. Objective: Vital Signs Temp Pulse Resp BP Pulse Ox 97.9 F 65 18 169/76 H 99 03/29/18 08:41 03/29/18 09:23 03/29/18 09:23 03/29/18 09:23 03/29/18 09:23 Oxygen Delivery Method Room Air Weight: 138 lb 7.205 oz Body Mass Index (BMI) 23.8 General: Awake, Alert, Oriented x 3, Cooperative, No Acute Distress HEENT: Atraumatic, Normocephalic, PERRL, EOMI, Sclera Non Icteric Oral: Moist Mucosa Neck: Supple, Good ROM, No JVD Lungs: Clear to auscultation Cardiovascular: Regular Rhythm, Premature Ectopic Beats, Normal S1, Normal S2 Vascular: No Carotid Bruits Abdomen: Bowel Sounds Present, Soft Genitalia: Scrotal Edema Extremities: No Cyanosis, No Clubbing, No edema Neurological: No Focal Motor or Sensory Deficit Psych/Mental Status: Appropriate, Normal Affect 03/29/18 08:40: WBC 10.1, RBC 4.13 L, Hgb 12.4 L, Hct 37.4 L, MCV 90.6, MCH 30.0 , MCHC 33.2, RDW 12.8, RDW Differential 41.7, Plt Count 251, MPV 11.7, Immature Gran % (Auto) 0.200, Neut % (Auto) 61.0, Lymph % (Auto) 26.2, [place] % (Auto) 11.0 H, Eos % (Auto) 1.4, Baso % (Auto) 0.2, Absolute Neuts (auto) 6.2, Total Counted Not Reportable 03/29/18 08:40: PT 13.7, INR 1.1, APTT 29.0 03/29/18 08:40: Sodium 138, Potassium 4.0, Chloride 103, Carbon Dioxide 27.0, Anion Gap 8, BUN 22 H, Creatinine 2.20 H, Est GFR (MDRD) Af Amer 38 L, Est GFR ( MDRD) Non-Af 31 L, BUN/Creatinine Ratio 10.0, Glucose 145 H, Calcium 9.2 03/29/18 08:40: Troponin I 0.016 Rhythm: Sinus rhythm; PVCs EKG: As noted above ECHO: As noted above Cardiac Cath: 04/27/2014: [facility]: LVEF reported at 20-25%; left main coronary artery patent; LAD with proximal 50% stenosis and mid to distal 70-80% stenosis; first diagonal branch with proximal 70% stenosis; LCx with proximal 90-99% stenosis; first OM with 70% stenosis; RCA with proximal 70- 80% stenosis, mid 80-90% stenosis, and distal 70% stenosis; right PDA with 80% stenosis CT Surgery: 2013: [facility]: [place] to the LAD-diagonal distal branch; SVG to the OM; SVG to the distal right PDA CXR: Preliminary evaluation: Post open heart surgery changes: Please see official report Assessment/Plan 1. CAD status post CABG The patient has no symptoms of acute coronary syndrome. He will continue medical management as deemed appropriate. It does not appear he requires additional cardiac diagnostic studies or therapeutic intervention at this time with respect to his underlying CAD status. 2. Ischemic mediated cardiomyopathy The patient does have an ischemic mediated cardiomyopathy. His overall LV systolic function has changed over time. This will need to be followed over time. In the interim he does not appear to have any acute symptoms with respect to acute on chronic systolic CHF. Thus she will continue medical management. 3. Chronic systolic CHF The patient has a history of chronic systolic CHF. At the moment he appears to be without any acute changes. He will continue medical therapy and follow-up. 4. Hyperlipidemia The patient should continue lipid-lowering therapy as part of his cardiovascular risk factor modification. 5. Hypertension The patient's blood pressure will need be followed. His medications can be adjusted as needed. 6. Diabetes mellitus The patient will continue under the care of internal medicine. 7. Incarcerated inguinal hernia The patient has been evaluated by Dr. Derrick Henning of general surgery and Dr. Anthony Martin of anesthesiology. He has been deemed in need of urgent/emergent surgery. 8. Preoperative cardiovascular evaluation At the present time the patient appears to be without acute cardiovascular symptoms. He is in need of urgent/emergent general surgery. It would be recommended that he have close monitoring of his cardiac rate, rhythm, and blood pressure during and after his surgical procedure. He should continue his medical therapy as best as possible in and around the time of his surgical procedure especially with respect to his beta-hernán therapy. Attempt should be made to avoid IV volume overload that may bring out acute on chronic systolic CHF symptoms/objective changes. Following surgery it would not be unreasonable to place the patient in a cardiac telemetry unit and/or ICU cardiovascular monitoring. The patient is, based on his previous cardiovascular condition, at an increased risk for adverse cardiovascular events from noncardiac surgery, however, hopefully with the patient appearing without acute cardiovascular symptoms and close monitoring these risk and be kept at a minimum. Comment: The above was discussed with Dr. Derrick Henning and Dr. Anthony Martin. This note was generated with [employer] dictation software. It may contain incorrect words, spelling, and punctuation that were not noted in checking the note before signing.
[2018-03-29] MEDS: Bupivacaine Mpf 0.5% 30 ML VIAL (11:55)
--- NOTE | 2018-03-29 12:08 | OP.PCM_ITS ---
Problem List (1) Incarcerated right inguinal hernia Status: Acute Report of Operation Date of Procedure: 03/29/18 Pre-Operative Diagnosis: Incarcerated right inguinal hernia Post-Operative Diagnosis: Congested multiple loops of small bowel within the right inguinal hernia with incarceration Surgery/Procedure Performed:: Laparoscopic right inguinal herniorrhaphy with reduction of incarcerated small bowel Description of Surgical Findings:: Timeout informed consent was obtained 2-year-old gent was taken the operating room. This is an emergency high risk case. He received 2 g of cefotetan. The abdomen sterilely prepped draped. 0.5% Marcaine was used as local anesthetic. Throughout the procedure a total of 30 cc was used. Skin sites were pre- anesthetized. A vertical umbilical incision was created holding sutures of 0 Vicryl placed varies needle inserted saline drop test performed the abdomen was insufflated with CO2 to pressure of 12 mmHg pressure. Pulmonary trocar inserted 10 lap scope was inserted over the joint trocar injuries five-minute trochars are placed in the right left lower quadrant. There is evidence of incarcerated small bowel within the right anal hernia. With careful trans- scrotal pressure is able to reduce the bowel. The bowel was noted to be markedly congested. There was free fluid in the abdomen. There is no perforation. The bowel was allowed to rest and appeared to pink up. I did not feel any of the bowel was necrotic. The peritoneum superior lateral to the internal ring was incised carried medially and extraordinary large hernia sac was encountered this was bluntly dissected free due to the absolute massive size of the hernia sac I elected to transect the sac and about its midportion I did that with Martines scissors. This allowed me then to completely reduce the peritoneum I dissected free until I had the direct space indirect space and femoral area clearly identified. I selected a Bard 3D max extra-large mesh for the right. I placed that and it nicely covered the defect area very nicely seating and placed a secured that medially superiolaterally with secure strap. Wonderful positioning was achieved. The peritoneum was then approximated with secure strap and Hem-o-roxana clips completely obliterating access to the mesh. The bowel was now reinspected it was noted it was carefully run from the terminal ileum that was noted be completely viable albeit still somewhat congested. Did not feel that any resection was required. The trochars removed the abdomen was deflated CO2 the fascia at the umbilicus approximated with interrupted 0 Vicryl figure 8 suture. Skin edges proximate interrupted 4 Monocryl subdermal stitches. Steri-Strips Telfa OpSite dressings applied. Sponge instrument and needle counts were reported the surgeon be correct. Specimens none. Drains none. Blood loss minimal. He was taken to the recovery area in satisfactory condition without apparent complication. Derrick Henning M.D., F.A.C.S. Type of Anesthesia:: General Anesthesiologist: Reese Olivares
--- NOTE | 2018-03-29 12:36 | EKG12_ITS ---
Test Reason : POST OP Blood Pressure : / mmHG Vent. Rate : 075 BPM Atrial Rate : 075 BPM P-R Int : 160 ms QRS Dur : 090 ms QT Int : 402 ms P-R-T Axes : 044 038 065 degrees QTc Int : 448 ms Sinus rhythm with occasional Premature ventricular complexes Left ventricular hypertrophy with repolarization abnormality Anteroseptal infarct , age undetermined Abnormal ECG Confirmed by LOUANN CIFUENTES, GLENNA ([id number]), health editor CARLITA VASQUEZ ([id number]) on 04/03/2018 4:05:26 PM Referred By: Nilda Irwin Confirmed By:GLENNA LEW MD
[2018-03-29 12:45] LABS: Bedside Glucose 163 mg/dL (70-110)
[2018-03-29] MEDS: Lactated Ringers 1,000 ML 50 ML IV (13:08)
[2018-03-29 16:56] LABS: Bedside Glucose 167 mg/dL (70-110)
[2018-03-29] MEDS: Carvedilol 12.5 MG Tablet PO (22:30)
[2018-03-29] MEDS: Atorvastatin Calcium 80 MG Tablet PO (22:30)
[2018-03-29 22:40] LABS: Bedside Glucose 172 mg/dL (70-110)
[2018-03-30 03:00] VITALS: PULSE 81
[2018-03-30 04:00] VITALS: BP 124/68; PULSE 82; RESP 18; TEMP 36.9; O2SAT 93
--- NOTE | 2018-03-30 05:40 | PN.SURG_ITS ---
Patient Problems: Active and Suspected Problems (Last Reviewed 02/07/18 @ 09:43 by Napoleon Zabala MD ) Incarcerated right inguinal hernia (Acute) Preop cardiovascular exam (Acute) Subjective: Pt states minimal pain No flatus Stov[place] just removed No nausea - Physical Exam General: Alert, Oriented x3, Cooperative, No apparent distress Lungs: Clear to auscultation Abdomen: Soft, Non Tender, Hypoactive Bowel Sounds Vital Signs Temp Pulse Resp BP Pulse Ox 98.4 F 82 18 124/68 H 93 03/30/18 04:00 03/30/18 04:00 03/30/18 04:00 03/30/18 04:00 03/30/18 04:00 Oxygen Flow Rate (L/min) 2 Oxygen Delivery Method Room Air Weight: 146 lb 9.718 oz Body Mass Index (BMI) 24.3 Finger Stick Blood Glucose 163 Intake and Output for Last 24 Hours 03/28/18 03/29/18 03/30/18 23:59 23:59 23:59 Intake Total 1848 / 1848 Output Total 475 / 950 Balance 1373 / 898 POC Glucose 03/29/18 03/29/18 22:33 16:50 POC Glucose 172 H 167 H Medical Necessity - Tobacco Use Smoking Status: Never smoker Assessment/Plan All Active Problems (Last Reviewed 02/07/18 @ 09:43 by Napoleon Zabala MD) Incarcerated right inguinal hernia (Acute) Preop cardiovascular exam (Acute) Systolic CHF, acute on chronic (Acute) Dyspnea (Acute) Good progress If he is able to void and passes flatus then I will discharge later today
--- NOTE | 2018-03-30 05:55 | EKG12_ITS ---
Test Reason : AM EKG Blood Pressure : / mmHG Vent. Rate : 080 BPM Atrial Rate : 080 BPM P-R Int : 150 ms QRS Dur : 084 ms QT Int : 376 ms P-R-T Axes : 036 -02 137 degrees QTc Int : 433 ms Normal sinus rhythm ST & T wave abnormality, consider lateral ischemia Abnormal ECG When compared with ECG of 29-MAR-2018 12:41, MANUAL COMPARISON REQUIRED, DATA IS UNCONFIRMED Confirmed by LOUANN CIFUENTES, GLENNA ([id number]), editor in chief CARLITA VASQUEZ ([id number]) on 04/04/2018 10:41:06 AM Referred By: DR GOMEZ Confirmed By:GLENNA LEW MD
--- NOTE | 2018-03-30 05:57 | PCM.DC.GS ---
Discharge Diet: Light diet - advance as tolerated - if you have questions about your diet instructions, please talk to you doctor. Discharge Activity: May Not Drive - for 1 week or while taking narcotic pain medicine. May shower in (days): 1 Lifting Restrictions: 10 pounds Call your doctor if your incision/area has: Continuous Slow Oozing, Sudden Increased Bleeding, Increased Pain/ Swelling, Increased Redness, Foul Smelling Discharge Call your doctor if you observe: Fever of 101 or Higher Suture Line Care: Avoid Pulling/Pushing, Avoid Pinching/Bending Additional Dressing/Incision Instructions:: Change or remove dressing in 3 days. Leave steri-strips in place for 1 week. Allergies/Adverse Reactions: Allergies No Known Allergies Allergy (Verified 03/29/18 08:17) Medications to take at Discharge Atorvastatin Calcium [Lipitor] 80 mg PO QHS 04/26/14 Glimepiride 4 mg PO DAILY 04/26/14 Aspirin [Aspirin, Baby] 81 mg PO DAILY@0800 09/29/14 Furosemide [Lasix] 40 mg PO DAILY #30 tab 10/15/14 carvedilol 12.5 mg tablet 12.5 mg PO BID #180 tab 01/28/18 escitalopram 10 mg tablet 10 mg PO QDAY 30 Days #30 tab 02/04/18 lisinopril 5 mg tablet 5 mg PO QDAY #90 tab 02/07/18 metformin 850 mg tablet 850 mg PO BID 30 Days #60 tab 02/07/18 pantoprazole 40 mg tablet,delayed release 40 mg PO QDAY 30 Days #30 tab 02/07/18 Primary Care Physician: Saman Bagley MD [Primary Care Provider] - Please Follow Up With: Derrick Henning MD - [phone] When: Call to make an appointment to be seen in about 10 days.
[2018-03-30] MEDS: Polyethylene Glycol 3350 17 GM PACKET PO (06:13)
[2018-03-30 06:57] VITALS: PULSE 77
[2018-03-30 07:05] LABS: Bedside Glucose 152 mg/dL (70-110)
[2018-03-30 07:25] LABS: Anion Gap 7 (5-15); BUN 28 mg/dL (7-18); BUN/Creat Ratio 11.3 RATIO (10-20); Chloride 106 mmol/L (98-107); Creatinine, Serum 2.47 mg/dL (0.70-1.30); EST Glomerular Filtration Rate 27 mL/min (>60); Est Glom Filt Rate - Afr Amer 33 mL/min (>60); Estimated Creatinine Clearance 22.82 ml/min; Glucose 146 mg/dL (74-106); Potassium 4.2 mmol/L (3.5-5.1); Sodium Level 140 mmol/L (136-145)
[2018-03-30] MEDS: Aspirin 81 MG TAB.CHEW PO (08:27)
[2018-03-30] MEDS: Glimepiride 4 MG Tablet PO (08:27)
[2018-03-30 09:15] VITALS: BP 141/57; PULSE 82; RESP 16; TEMP 36.4; O2SAT 94
[2018-03-30] MEDS: Pantoprazole Sodium 40 MG Tablet PO (09:20)
[2018-03-30] MEDS: Escitalopram Oxalate 10 MG Tablet PO (09:20)
[2018-03-30] MEDS: Carvedilol 12.5 MG Tablet PO (09:20)
[2018-03-30] MEDS: Lisinopril 5 MG Tablet PO (09:20)
[2018-03-30] MEDS: Furosemide 40 MG Tablet PO (09:20)
== END 2018-03-30 10:30 | disposition home or self-care (01) ==
LOC: ED 08:29 → SDC 09:38 → AC 09:39 → PCU 15:56 → MS3 03-30 08:11 → SDC 03-30 08:12 → PCU 03-30 08:13
PROVIDERS: Anesthesiology; Internal Medicine Cardiovascular Disease; Admitting Provider Surgery; Emergency Provider Emergency Medicine; Family Provider Family Medicine; PCP Family Medicine; Visit Provider Surgery
PROC: (CPT 49650; principal; 2018-03-29 07:10)
DX: K40.30 Unilateral inguinal hernia, with obstruction, without gangrene, not specified as recurrent (principal); K21.9 Gastro-esophageal reflux disease without esophagitis; I25.10 Atherosclerotic heart disease of native coronary artery without angina pectoris; E11.622 Type 2 diabetes mellitus with other skin ulcer; L97.829 Non-pressure chronic ulcer of other part of left lower leg with unspecified severity; L97.819 Non-pressure chronic ulcer of other part of right lower leg with unspecified severity; E11.22 Type 2 diabetes mellitus with diabetic chronic kidney disease; I13.2 Hypertensive heart and chronic kidney disease with heart failure and with stage 5 chronic kidney disease, or end stage renal disease; N18.6 End stage renal disease; I50.23 Acute on chronic systolic (congestive) heart failure; I25.5 Ischemic cardiomyopathy; E78.5 Hyperlipidemia, unspecified; F41.9 Anxiety disorder, unspecified; Z95.1 Presence of aortocoronary bypass graft; Z79.82 Long term (current) use of aspirin; Z79.899 Other long term (current) drug therapy; Z79.84 Long term (current) use of oral hypoglycemic drugs
CPT/HCPCS: 49650; 36415; 71045; 80048; 82962; 84484; 85025; 85610; 85730; 93005; 96361; 96374; 96375; 96376; 99218; 99285; J7030; J7120; A4216; C1781; G0378; J0330; J2405

== ENCOUNTER → 2018-07-24 09:48 | Outpatient (CLI) | payer MEDICARE, SELFPAY ==
[2018-07-24 12:18] LABS: Absolute Lymphocyte Count 2.07 X10^3/ul (0.83-4.51); Basophil# 0.03 X10^3/uL; Basophil% 0.4 % (0-1); Eosinophils% 4.1 % (0-5); Hematocrit 35.8 % (40-54); Hemoglobin 11.4 g/dl (13.0-16.5); Lymphocyte # 2.07 X10^3/ul (4.0); Lymphocyte % 28.5 % (19-41); Mean Corp Hgb Conc 31.8 g/gl (32-36); Mean Corpuscular Hgb 28.7 pg (27.0-32.0); Mean Corpuscular Volume 90.2 fL (80-94); Mean Platelet Vol. 11.6 fl (6.2-12.0); Monocyte# 0.82 X10^3/uL; Monocyte% 11.3 % (0-10); Neutrophil # 4.04 X10^3/uL (2.7-7.7); Neutrophil % 55.6 % (47-70); Platelet Count 243 K/mm3 (150-450); RBC Distribution Width CV 13.3 % (11.6-14.6); RBC Distribution Width SD 43.8 fl (35.1-43.9); Red Blood Count 3.97 M/mm3 (4.6-6.2); White Blood Count 7.3 K/mm3 (4.4-11.0)
[2018-07-24 12:19] LABS: POSITIVE COUNT NO; POSITIVE DIFFERENTIAL NO; POSITIVE MORPHOLOGY NO
[2018-07-24 13:02] LABS: Anion Gap 9 (5-15); BUN 28 mg/dL (7-18); BUN/Creat Ratio 11.3 RATIO (10-20); Chloride 107 mmol/L (98-107); Creatinine, Serum 2.48 mg/dL (0.70-1.30); EST Glomerular Filtration Rate 27 mL/min (>60); Est Glom Filt Rate - Afr Amer 33 mL/min (>60); Glucose 120 mg/dL (74-106); Potassium 4.3 mmol/L (3.5-5.1); Sodium Level 142 mmol/L (136-145)
[2018-07-24 13:12] LABS: AST(SGOT) 23 U/L (15-37); Alanine Aminotransfer ALT/SGPT 26 U/L (16-61); Albumin, Serum 3.7 g/dL (3.2-5.0); Alkaline Phosphatase 100 U/L (45-117); Bilirubin, Direct 0.16 mg/dL (0.00-0.30); Cholesterol 139 mg/dL (200); Globulin 4.1 g/dL (2.2-4.2); High Density Lipoprotein 42 mg/dL; Protein, Total 7.8 g/dL (6.4-8.2); Triglycerides 127 mg/dL; Very Low Density Lipoprotein 25 mg/dL (5-40)
== END ==
PROVIDERS: Family Provider Family Medicine; PCP Family Medicine; Referring Provider Physician Assistant Medical; Visit Provider Physician Assistant Medical
DX: N18.3 Chronic kidney disease, stage 3 (moderate) (principal); E11.9 Type 2 diabetes mellitus without complications; E78.5 Hyperlipidemia, unspecified
CPT/HCPCS: 36415; 80048; 80061; 80076; 85025

== ENCOUNTER → 2019-01-23 09:10 | Outpatient (CLI) | payer MEDICARE, SELFPAY ==
[2018-08-07 10:09] VITALS: BMI 23.5
[2019-01-23 10:00] LABS: Absolute Lymphocyte Count 1.24 X10^3/ul (0.83-4.51); Absolute Neutrophil Count 3.1 X10^3/uL (2.0-7.7); Basophil# 0.02 X10^3/uL; Basophil% 0.4 % (0-1); Eosinophil# 0.16 X10^3/uL; Eosinophils% 3.1 % (0-5); Hematocrit 32.3 % (40-54); Hemoglobin 10.2 g/dl (13.0-16.5); Lymphocyte # 1.24 X10^3/ul (4.0); Lymphocyte % 24.4 % (19-41); Mean Corp Hgb Conc 31.6 g/gl (32-36); Mean Corpuscular Hgb 28.5 pg (27.0-32.0); Mean Corpuscular Volume 90.2 fL (80-94); Monocyte# 0.54 X10^3/uL; Monocyte% 10.6 % (0-10); Neutrophil # 3.13 X10^3/uL (2.7-7.7); Neutrophil % 61.5 % (47-70); Platelet Count 273 K/mm3 (150-450); RBC Distribution Width CV 14.3 % (11.6-14.6); RBC Distribution Width SD 47.3 fl (35.1-43.9); Red Blood Count 3.58 M/mm3 (4.6-6.2); White Blood Count 5.1 K/mm3 (4.4-11.0)
[2019-01-23 10:03] LABS: POSITIVE COUNT NO; POSITIVE DIFFERENTIAL NO; POSITIVE MORPHOLOGY NO
[2019-01-23 10:20] LABS: Hemoglobin A1c 6.9 % (4.2-6.3)
[2019-01-23 10:40] LABS: AST(SGOT) 21 U/L (15-37); Alanine Aminotransfer ALT/SGPT 17 U/L (16-61); Albumin, Serum 3.8 g/dL (3.2-5.0); Alkaline Phosphatase 103 U/L (45-117); Bilirubin, Direct 0.21 mg/dL (0.00-0.30); Cholesterol 125 mg/dL (200); Globulin 3.5 g/dL (2.2-4.2); High Density Lipoprotein 38 mg/dL; Protein, Total 7.3 g/dL (6.4-8.2); Triglycerides 145 mg/dL; Very Low Density Lipoprotein 29 mg/dL (5-40)
[2019-01-23 10:47] LABS: Anion Gap 9 (5-15); BUN 21 mg/dL (7-18); BUN/Creat Ratio 9.1 RATIO (10-20); Calcium,Total 8.8 mg/dL (8.5-10.1); Chloride 107 mmol/L (98-107); Creatinine, Serum 2.31 mg/dL (0.70-1.30); EST Glomerular Filtration Rate 30 mL/min (>60); Est Glom Filt Rate - Afr Amer 36 mL/min (>60); Glucose 88 mg/dL (74-106); Sodium Level 140 mmol/L (136-145)
== END ==
PROVIDERS: Physician Assistant Medical; Family Provider Family Medicine; PCP Family Medicine; Referring Provider Internal Medicine Cardiovascular Disease; Visit Provider Internal Medicine Cardiovascular Disease
DX: E11.22 Type 2 diabetes mellitus with diabetic chronic kidney disease (principal); N18.3 Chronic kidney disease, stage 3 (moderate); E78.5 Hyperlipidemia, unspecified
CPT/HCPCS: 36415; 80048; 80061; 80076; 83036; 85025

== ENCOUNTER → 2019-01-30 09:44 | Outpatient (CLI) | payer MEDICARE, SELFPAY ==
--- NOTE | 2019-01-30 09:49 | US_ITS ---
STUDY: RENAL ULTRASOUND - COMPLETE REASON FOR EXAM: Male, 73 years old. Chronic renal disease TECHNIQUE: Ultrasound evaluation of the kidneys was performed with real-time and static sauceda-scale imaging. COMPARISON: None. FINDINGS: RIGHT KIDNEY: Normal location of the right kidney, which is normal in size. The right kidney measures 10.7 x 5 x 4.3 cm. There is a normal cortex of the right kidney. The renal cortex measures 1.1 cm. There is a cyst measuring 2.8 x 3.6 x 3.4 cm. There is a second more solid-appearing nodule measuring 2.1 x 3.09 cm There are no right renal calculi. There is no right hydronephrosis. DISTAL RIGHT URETER: There is non-visualization of the distal right ureter. There is no demonstrated right ureterovesical junction calculus. There is a visualized right ureteral jet. LEFT KIDNEY: Normal location of the left kidney, which is normal in size. The left kidney measures 10.0 x 4.9 x 5.2 cm. There is a normal cortex of the left kidney. The renal cortex measures 1.3 cm. There is no left renal mass or cyst. There are no left renal calculi. There is no left hydronephrosis. DISTAL LEFT URETER: There is non-visualization of the distal left ureter. There is no demonstrated left ureterovesical junction calculus. There is a visualized left ureteral jet. Diffusely increased cortical echoes are seen consistent with nonspecific renal parenchymal disease. BLADDER: The distended urinary bladder has a volume of 160.44 ml. There is a normal wall thickness of the distended urinary bladder. There is no demonstrated mass within the urinary bladder. There are no demonstrated bladder calculi. The solid nodule in the right kidney is unchanged in size since previous CT exam on October 13, 2014 US/Kidney and Bladder IMPRESSION: Findings consistent with chronic renal parenchymal disease. There is a simple cyst in the upper pole the right kidney as well as a solid nodule which is stable since previous study. Follow-up CT or MRI may be helpful for more definitive evaluation if indicated Electronically Signed: Gary Tomas MD at 20:23 EDT , Service support ,
== END ==
PROVIDERS: Family Provider Family Medicine; PCP Family Medicine; Referring Provider Family Medicine; Visit Provider Family Medicine
DX: N18.3 Chronic kidney disease, stage 3 (moderate) (principal)
CPT/HCPCS: 76770

== ENCOUNTER → 2019-03-12 15:01 | Outpatient (CLI) | payer MEDICARE, SELFPAY ==
[2019-03-07 13:26] VITALS: BMI 23.5
[2019-03-12 16:07] LABS: Absolute Lymphocyte Count 0.87 X10^3/ul (0.83-4.51); Absolute Neutrophil Count 4.5 X10^3/uL (2.0-7.7); Basophil# 0.03 X10^3/uL; Basophil% 0.5 % (0-1); Eosinophil# 0.09 X10^3/uL; Eosinophils% 1.5 % (0-5); Hematocrit 27.5 % (40-54); Hemoglobin 8.5 g/dl (13.0-16.5); Lymphocyte # 0.87 X10^3/ul (4.0); Lymphocyte % 14.3 % (19-41); Mean Corp Hgb Conc 30.9 g/gl (32-36); Mean Corpuscular Hgb 28.9 pg (27.0-32.0); Mean Corpuscular Volume 93.5 fL (80-94); Mean Platelet Vol. 11.7 fl (6.2-12.0); Monocyte% 9.8 % (0-10); Neutrophil % 73.7 % (47-70); Platelet Count 219 K/mm3 (150-450); RBC Distribution Width CV 14.8 % (11.6-14.6); RBC Distribution Width SD 48.4 fl (35.1-43.9); Red Blood Count 2.94 M/mm3 (4.6-6.2); White Blood Count 6.1 K/mm3 (4.4-11.0)
[2019-03-12 16:08] LABS: POSITIVE COUNT NO; POSITIVE DIFFERENTIAL NO; POSITIVE MORPHOLOGY NO
[2019-03-12 16:31] LABS: ALB/GLOB Ratio 1.1 RATIO (0.9-2.4); AST(SGOT) 18 U/L (15-37); Alanine Aminotransfer ALT/SGPT 20 U/L (16-61); Alkaline Phosphatase 101 U/L (45-117); Bilirubin, Direct 0.44 mg/dL (0.00-0.30); Globulin 3.5 g/dL (2.2-4.2); Protein, Total 7.5 g/dL (6.4-8.2)
== END ==
PROVIDERS: Family Provider Family Medicine; PCP Family Medicine; Referring Provider Family Medicine; Visit Provider Nurse Practitioner Family
DX: R17 Unspecified jaundice (principal)
CPT/HCPCS: 36415; 80076; 84156; 85025

== ENCOUNTER → 2019-03-13 11:25 | Outpatient (CLI) | payer MEDICARE, SELFPAY ==
[2019-03-07 13:26] VITALS: BMI 23.5
[2019-03-13 12:42] LABS: Absolute Lymphocyte Count 0.77 X10^3/ul (0.83-4.51); Absolute Neutrophil Count 4.5 X10^3/uL (2.0-7.7); Basophil# 0.02 X10^3/uL; Basophil% 0.3 % (0-1); Eosinophil# 0.08 X10^3/uL; Eosinophils% 1.4 % (0-5); Hematocrit 26.7 % (40-54); Hemoglobin 8.3 g/dl (13.0-16.5); Lymphocyte # 0.77 X10^3/ul (4.0); Mean Corp Hgb Conc 31.1 g/gl (32-36); Mean Corpuscular Hgb 29.2 pg (27.0-32.0); Mean Platelet Vol. 11.7 fl (6.2-12.0); Monocyte# 0.55 X10^3/uL; Monocyte% 9.3 % (0-10); Neutrophil # 4.48 X10^3/uL (2.7-7.7); Neutrophil % 75.7 % (47-70); Platelet Count 206 K/mm3 (150-450); RBC Distribution Width CV 14.8 % (11.6-14.6); Red Blood Count 2.84 M/mm3 (4.6-6.2); White Blood Count 5.9 K/mm3 (4.4-11.0)
[2019-03-13 12:43] LABS: POSITIVE COUNT NO; POSITIVE DIFFERENTIAL NO; POSITIVE MORPHOLOGY NO
[2019-03-13 13:49] LABS: ALB/GLOB Ratio 1.1 RATIO (0.9-2.4); AST(SGOT) 18 U/L (15-37); Alanine Aminotransfer ALT/SGPT 19 U/L (16-61); Albumin, Serum 3.8 g/dL (3.2-5.0); Alkaline Phosphatase 92 U/L (45-117); Anion Gap 8 (5-15); BUN 29 mg/dL (7-18); Calcium,Total 8.9 mg/dL (8.5-10.1); Chloride 109 mmol/L (98-107); Creatinine, Serum 2.42 mg/dL (0.70-1.30); EST Glomerular Filtration Rate 28 mL/min (>60); Est Glom Filt Rate - Afr Amer 34 mL/min (>60); Ferritin 187 ng/mL (26-388); Globulin 3.5 g/dL (2.2-4.2); Glucose 195 mg/dL (74-106); Potassium 4.1 mmol/L (3.5-5.1); Protein, Total 7.3 g/dL (6.4-8.2); Sodium Level 139 mmol/L (136-145)
[2019-03-14 12:26] LABS: Carcinoembryonic Antigen 4.1 ng/mL (0.0-4.7)
== END ==
PROVIDERS: Family Provider Family Medicine; PCP Family Medicine; Referring Provider Family Medicine; Visit Provider Family Medicine
DX: R17 Unspecified jaundice (principal)
CPT/HCPCS: 36415; 80053; 82378; 82728; 84153; 85025

== ENCOUNTER → 2019-03-15 09:51 | Outpatient (CLI) | payer MEDICARE, SELFPAY ==
[2019-03-07 13:26] VITALS: BMI 23.5
--- NOTE | 2019-03-15 10:07 | US_ITS ---
STUDY: ABDOMINAL ULTRASOUND - RIGHT UPPER QUADRANT REASON FOR VISIT: Male, 73 years old. Right-sided abdominal pain TECHNIQUE: Ultrasound evaluation of the right upper quadrant was performed with real-time and static worley-scale imaging. TECHNICAL QUALITY: Adequate. COMPARISON: 10/13/2014 FINDINGS: Liver: The liver measures 14.6 cm. There is normal echogenicity of the liver. The bile ducts are within normal limits. There is hepatic color flow. The direction of portal flow is hepatopetal. There is no demonstrated mass lesion. Gallbladder: Normal distended gallbladder. The gallbladder wall measures 3 mm. There is a negative sonographic Galarza's sign. There is no pericholecystic fluid. There are multiple echogenic structures within the gallbladder, consistent with multiple gallstones and sludge. Common Bile Duct (C.B.D.): The common bile duct measures 2.4 mm. Pancreas: There is normal echogenicity of the visualized pancreas. There is no demonstrated pancreatic mass or cyst. Right Kidney: Normal size of the right kidney. The right kidney measures 11.1 x 5.2 x 4.4 cm. Normal renal cortex. The right cortex measures 1.5 cm. Anechoic cyst of the right kidney measures 3.3 cm. Along the superior right kidney, there is a hypoechoic exophytic lesion measuring 2.6 cm, not documented on prior renal ultrasound of January 2019. There is no right hydronephrosis. US/Abdomen Limited IMPRESSION: 1. Cholelithiasis without evidence of acute cholecystitis or biliary obstruction. 2. 2.6 cm exophytic solid lesion of the superior right kidney, not previously documented on ultrasound of January 2019. Differential considerations include solid neoplasm or lobulation/cortical scarring artifact. Renal protocol MRI or CT recommended. 3. Simple right renal cyst. Electronically Signed: Vargas Rojas MD at 19:28 EDT , Service support ,
--- NOTE | 2019-03-15 10:40 | RAD_ITS ---
STUDY: X-RAY CHEST REASON FOR EXAM: Male, 73 years old. Cough with abdominal pain TECHNIQUE: PA and lateral views of the chest. COMPARISON: 03/29/2018 FINDINGS: There are interstitial fibrotic changes of the lungs. No airspace consolidation. There is pleural fibrotic scarring of the left costophrenic angle. There is mild cardiac enlargement. Sternal wires and mediastinal surgical clips compatible with prior CABG. Normal visualized pulmonary arteries. There is atherosclerotic tortuosity of the aortic arch and descending thoracic aorta. There is demineralization of the osseous structures. Normal visualized ribs, clavicles, and shoulders. There is no demonstrated abnormality of the visualized soft tissue structures of the upper abdomen. RAD/Chest PA and Lateral IMPRESSION: 1. No acute cardiopulmonary process. 2. Stable cardiomegaly. CABG. Electronically Signed: Vargas Rojas MD at 19:24 EDT , Service support ,
== END ==
PROVIDERS: Family Provider Family Medicine; PCP Family Medicine; Referring Provider Family Medicine; Visit Provider Family Medicine
DX: R10.9 Unspecified abdominal pain (principal); R05 Cough
CPT/HCPCS: 71046; 76705

== ENCOUNTER 2019-03-19 01:23 | Inpatient (IN) | payer MEDICARE, SELFPAY ==
[2019-03-07 13:26] VITALS: BMI 23.5
[2019-03-19] VITALS (14 sets, daily range): BP systolic 121–146; BP diastolic 47–89; PULSE 59–85; RESP 15–20; TEMP 36.4–36.9; O2SAT 92–100; BMI 23.4; BMI 22.9; BMI 23.0
--- NOTE | 2019-03-19 01:24 | ED.RN ---
CALLED FOR EKG PER RN REQUEST, PULLED OLD EKGS FOR
--- NOTE | 2019-03-19 01:26 | EKG12_ITS ---
Test Reason : CP Blood Pressure : / mmHG Vent. Rate : 071 BPM Atrial Rate : 071 BPM P-R Int : 146 ms QRS Dur : 158 ms QT Int : 440 ms P-R-T Axes : 023 108 -23 degrees QTc Int : 478 ms Normal sinus rhythm Right bundle branch block Abnormal ECG Confirmed by LUIGI GALVAN ([id number]), news video editor CARLITA VASQUEZ ([id number]) on 03/21/2019 6:10:34 AM Referred By: Ana Moncada Confirmed By:LUIGI GALVAN
--- NOTE | 2019-03-19 01:26 | RAD_ITS ---
STUDY: X-RAY CHEST REASON FOR EXAM: Male, 73 years old. Chest pain TECHNIQUE: 1 view COMPARISON: March 15, 2019 FINDINGS: There is cardiomegaly with median sternotomy wires in place and mild central vascular congestion but no pneumonia and no pleural effusions Normal visualized thoracic spine. Normal visualized ribs, clavicles, and shoulders. There is no demonstrated abnormality of the visualized soft tissue structures of the upper abdomen. RAD/Chest 1 View (Portable) IMPRESSION: Cardiomegaly with mild central vascular congestion. No pneumonia. No pleural effusions. Electronically Signed: Alphonso Fontana MD at 1:50 EDT Tel , Service support ,
--- NOTE | 2019-03-19 01:29 | ED.VISSUMM ---
- ER Visit Summary Date of Service: 03/19/19 Chief Complaint: Chest pain History of Present Illness: The patient is a 73 M presents to the emergency department with chest pain. The patient states is been off and on for the past few weeks. He states that sometimes, when he exerts himself, he will get heaviness. He states if he stands too quickly, he will get lightheaded and feels that he is going to pass out. He states is also been having some intermittent abdominal cramping. He is unsure if it is made worse with exertion. Patient does have history of prior bypass. He does follow with Dr. Zabala. He did have outpatient lab work done by his primary care physician this week. He denies any trouble laying flat. He states the pain did come on tonight and seemed to be worse that the reason that he came in. He was mildly nauseated without vomiting. Physical Examination: Vital signs reviewed General: Well-nourished, well-developed Head: Normocephalic, atraumatic Eyes: Pupils equal and reactive, extraocular muscles intact Neck, supple, no lymphadenopathy Heart: Regular rate and rhythm Respiratory: No distress, clear bilaterally Abdomen: Soft, nontender, nondistended, no peritoneal signs Back: Nontender Extremities: Nontender, no edema, no cords Skin: Normal color no rash Neuro: Alert and oriented, no focal or lateralizing deficits Test Results: [] Emergency Department Course and Treatment: Patient presents to the emergency department with intermittent chest pain, dyspnea, and lightheadedness. He is also been having some abdominal fullness. He does not weigh himself and is unsure if he is been gaining weight. His EKG does not show acute ischemic change. Chest x-ray does show some cephalization and mild edema. His cardiac enzymes were negative. However, given the patient's advanced cardiovascular disease history, evidence of heart failure, and intermittent chest pain that he would benefit from admission for diuresis and potentially stress first echo to determine his cardiac function. The patient is comfortable with this plan of care. He was discussed with the hospitalist. Treatment Plan: [] Disposition: Admission Impression: 1. Chest pain with history of coronary vascular disease 2. CHF exacerbation This note was generated with [employer] software. It may contain incorrect words, spelling, and punctuation that were not noted in review of the chart prior to signing ED Disposition - Plan for ED Patient: Referrals: Saman Bagley MD [Primary Care Provider] -
[2019-03-19] MEDS: Aspirin 81 MG TAB.CHEW 324 MG PO (01:34)
[2019-03-19 01:46] LABS: Absolute Lymphocyte Count 1.13 X10^3/ul (0.83-4.51); Absolute Neutrophil Count 4.6 X10^3/uL (2.0-7.7); Basophil# 0.02 X10^3/uL; Basophil% 0.3 % (0-1); Eosinophils% 1.6 % (0-5); Hematocrit 26.3 % (40-54); Hemoglobin 8.3 g/dl (13.0-16.5); Lymphocyte # 1.13 X10^3/ul (4.0); Lymphocyte % 17.7 % (19-41); Mean Corp Hgb Conc 31.6 g/gl (32-36); Mean Corpuscular Hgb 29.6 pg (27.0-32.0); Mean Corpuscular Volume 93.9 fL (80-94); Mean Platelet Vol. 11.3 fl (6.2-12.0); Monocyte# 0.55 X10^3/uL; Monocyte% 8.6 % (0-10); Neutrophil # 4.58 X10^3/uL (2.7-7.7); Neutrophil % 71.6 % (47-70); Platelet Count 225 K/mm3 (150-450); RBC Distribution Width CV 15.1 % (11.6-14.6); RBC Distribution Width SD 49.2 fl (35.1-43.9); White Blood Count 6.4 K/mm3 (4.4-11.0)
[2019-03-19 01:47] LABS: POSITIVE COUNT NO; POSITIVE DIFFERENTIAL NO; POSITIVE MORPHOLOGY NO
[2019-03-19 02:01] LABS: AST(SGOT) 25 U/L (15-37); Alanine Aminotransfer ALT/SGPT 22 U/L (16-61); Albumin, Serum 3.8 g/dL (3.2-5.0); Alkaline Phosphatase 93 U/L (45-117); Anion Gap 11 (5-15); BUN 31 mg/dL (7-18); BUN/Creat Ratio 12.3 RATIO (10-20); Calcium,Total 8.6 mg/dL (8.5-10.1); Chloride 108 mmol/L (98-107); Creatinine, Serum 2.52 mg/dL (0.70-1.30); EST Glomerular Filtration Rate 27 mL/min (>60); Est Glom Filt Rate - Afr Amer 32 mL/min (>60); Estimated Creatinine Clearance 22.03 ml/min; Globulin 3.7 g/dL (2.2-4.2); Glucose 119 mg/dL (74-106); Magnesium 1.8 mg/dL (1.6-2.6); Potassium 4.4 mmol/L (3.5-5.1); Protein, Total 7.5 g/dL (6.4-8.2); Sodium Level 139 mmol/L (136-145)
[2019-03-19] MEDS: Furosemide 40 MG/4 ML Vial IV (02:10)
--- NOTE | 2019-03-19 02:20 | HP.PCM_ITS ---
Problem List (1) Chest pain Status: Acute Qualifiers: Chest pain type: unspecified Qualified Code(s): R07.9 - Chest pain, unspecified (2) Diabetes mellitus, type II Status: Chronic Qualifiers: Diabetes mellitus senior care insulin use: without senior care use Diabetes mellitus complication status: with unspecified complications Qualified Code(s): E11.8 - Type 2 diabetes mellitus with unspecified complications (3) GERD (gastroesophageal reflux disease) Status: Chronic Qualifiers: Esophagitis presence: esophagitis presence not specified Qualified Code(s): K21.9 - Gastro-esophageal reflux disease without esophagitis (4) Essential (primary) hypertension Status: Chronic (5) Chronic systolic (congestive) heart failure Status: Chronic (6) Ischemic cardiomyopathy Status: Chronic (7) H/O coronary artery bypass surgery Status: Resolved Comment: CABG x 3: [place]-distal D1, SVG-OM, SVG-Distal PDA 04/30/2014 (8) HLD (hyperlipidemia) Status: Chronic Qualifiers: History of Present Illness Date of Admission: 03/19/19 Chief Complaint: Chest pain The patient is a 73 y/o M w/ PMHx: CKD stage III, Chronic Anemia, Chronic Systolic CHF, Ischemic Cardiomyopathy, CAD s/p CABG x 3, HTN, HLD, Diabetes mellitus type II, Anxiety and Depression who presents to the [facility] ED on 03/19/19 with history of intermittent chest pain and dyspnea over the last few weeks, worse with exertion, described as heaviness although it also does seem to be exacerbated certain movements with lightheadedness, rated 5/10 at its worse and upon evaluation in the ED 0/10. He has been unable to lay flat and has notable coughing when he does attempt to do so. Also notes recent abdominal cramping and fullness with normal outpatient US evaluation per his PCP with currently noted mild nausea without any emesis. He recently saw his human resources office assistant approximately 3 weeks prior to current presentation and had a felt fine at that time. Work-up in the ED included T 97.7, heart rate 75, BP 143/80, respiratory rate 15, 92% on room air, CBC with WBC 6.4, hemoglobin 8.3, platelet 225 market shift, CMP with chloride 108, carbon dioxide 20, BUN/creatinine 31/2.52, glucose 119, T Bili 2.20, trop 0.039, chest x-ray with cardiomegaly with mild vascular congestion with no evidence of pneumonia or pleural effusions, EKG with with no acute evidence of ischemia w/ RBBB. In the ED patient administered Lasix 40 mg IV x1 as well as aspirin 324 mg p.o. x1. 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) CABG x 3: FULTON-distal D1, SVG-OM, SVG-Distal PDA 04/30/2014 Atherosclerotic heart disease of [place] coronary artery without angina pectoris (Chronic) CABG x 3: FULTON-distal D1, SVG-OM, SVG-Distal PDA 04/30/2014 HLD (hyperlipidemia) (Chronic) Medical History: Medical History (Last Reviewed 03/07/19 @ 14:04 by Napoleon Zabala MD) Essential (primary) hypertension (Chronic) I10 Chronic systolic (congestive) heart failure (Chronic) I50.22 Ischemic cardiomyopathy (Chronic) I25.5 Claudication of both lower extremities (Chronic) I73.9 Atherosclerosis of coronary artery bypass graft without angina pectoris (Chronic) I25.810 CABG x 3: FULTON-distal D1, SVG-OM, SVG-Distal PDA 04/30/2014 Atherosclerotic heart disease of [place] coronary artery without angina pectoris (Chronic) I25.10 CABG x 3: FULTON-distal D1, SVG-OM, SVG-Distal PDA 04/30/2014 HLD (hyperlipidemia) (Chronic) E78.5 Bilateral pleural effusion J90 Type 2 diabetes mellitus E11.9 Dyspnea (Resolved) R06.00 Incarcerated right inguinal hernia (Resolved) K40.30 Preop cardiovascular exam (Resolved) Z01.810 Allergies No Known Allergies Allergy (Verified 03/07/19 13:26) Home Medications: Ambulatory Orders Medication Instructions Recorded Glimepiride 4 mg PO DAILY 04/26/14 Aspirin [Aspirin, Baby] 81 mg PO DAILY@0800 09/29/14 escitalopram 10 mg tablet 10 mg PO QDAY 30 Days #30 tab 02/04/18 pantoprazole 40 mg tablet,delayed 40 mg PO QDAY 30 Days #30 tab 02/07/18 release atorvastatin 80 mg tablet 80 mg PO QHS #90 tab 04/08/18 furosemide 40 mg tablet 40 mg PO DAILY #90 tab 09/03/18 carvedilol 12.5 mg tablet 12.5 mg PO BID #180 tab 02/05/19 lisinopril 5 mg tablet 5 mg PO QDAY #90 tab 02/10/19 metformin 850 mg tablet 850 mg PO DAILY 30 Days #30 tab 03/07/19 Ferrous Sulfate [Iron] 325 mg PO DAILY 03/19/19 Surgical History: Surgical History (Last Reviewed 03/07/19 @ 14:04 by Napoleon Zabala MD) H/O coronary artery bypass surgery (Resolved) Onset Date: 04/30/14 Z95.1 CABG x 3: FULTON-distal D1, SVG-OM, SVG-Distal PDA 04/30/2014 History of left heart catheterization (LHC) Onset Date: 04/27/14 Z98.890 Left heart cath March 2012; LHC W/ IABP INsertion 04/27/14 History of right inguinal hernia repair Onset Date: 03/2018 Z98.890, Z87.19 History of thoracentesis Z98.890 Surgical History: coronary bypass surgery, - - CABG x 3, R inguinal hernia repair. Psychiatric History: Anxiety, Depression Lives: Spouse/ Significant Other Smoking Status: Never smoker Tobacco Use: Non-smoker Alcohol: None Drugs: None - *Family History Maternal Family History: Family History (Last Reviewed 03/07/19 @ 14:04 by Napoleon Zabala MD) Brother CAD (coronary artery disease) History Items: Heart Disease Sibling Family History: Family History (Last Reviewed 03/07/19 @ 14:04 by Napoleon Zabala MD) Brother CAD (coronary artery disease) History Items: Heart Disease Paternal Family History: Family History (Last Reviewed 03/07/19 @ 14:04 by Napoleon Zabala MD) Brother CAD (coronary artery disease) History Items: - - Patient notes father with a history of polio with debility secondary to this but otherwise had been healthy and in his 90s. Review of Systems Constitutional: Reports: Malaise, Weakness, Fatigue. Denies: Chills, Fever, Weight Change HEENT: Denies: Head Aches, Sinus Congestion, Sinus Drainage Cardiovascular: Reports: Chest Pain, Chest Pressure, Edema, Heaviness, Light Headedness, Orthopnea. Denies: Palpitations, Syncope Respiratory: Reports: Cough, Shortness of breath upon exertion. Denies: Shortness of breath at rest, Sputum production Gastrointestinal: Denies: Abdominal Pain, Nausea, Vomiting Genitourinary: Denies: Dysuria Musculoskeletal: Reports: Joint Pain. Denies: Joint Tenderness Skin: Denies: Rash, Wounds Neurological: Denies: Numbness, Tingling, Focal weakness Psychiatric: Reports: Anxiety, Depression. Denies: Homicidal Ideations, Suicidal Ideations Hematologic/ Lymphatic: Reports: Anemia. Denies: Easy Bruising, Easy Bleeding VTE Information - Inpt Only VTE Present on Admission: No VTE Mechan Device Prophylaxis: SCD's VTE Pharm Prophylaxis ordered?: Yes Patient Problems: Active and Suspected Problems (Last Reviewed 03/07/19 @ 14:04 by Napoleon Zabala MD) Chest pain (Acute) Subjective: Seated upright in the ED bed, no acute distress, denies any current chest discomfort. Objective: Physical Examination: General: awake, alert, oriented x 3 and cooperative, seated upright in the ED bed in no apparent distress, denies any current chest discomfort or dyspnea. Skin: normal color, turgor, no icterus, cyanosis. HEENT: AT/NC, EOMI, PERRLA, MMM, no carotid bruits, mild JVD noted. Lungs: Diminished breath sounds bilateral bases, moderate effort, mild rales bases, no rhonchi or wheezing. Heart: regular rate and rhythm; no gallop, rub audible, SM. Abdomen: soft, NTTP, ND, mildly hypoactive BS, no HSM. Extremities: no cyanosis, clubbing, or edema. Neurological: patient awake, alert, oriented x 3; cognitive function intact; pupils equally reactive to light and accomodation; cranial nerves II-XII grossly normal, moving all 4 extremities, no focal deficits, strength moderately globally decreased secondary to acute presentation. Psychiatric: affect appears normal, no acute evidence of depressive or anxiety feelings. - Physical Exam Vital Signs Temp Pulse Resp BP Pulse Ox 97.7 F L 75 15 143/80 H 92 03/19/19 01:24 03/19/19 01:24 03/19/19 01:24 03/19/19 01:24 03/19/19 01:24 Oxygen Flow Rate (L/min) 2 Oxygen Delivery Method Nasal Cannula Weight: 141 lb 1.533 oz Body Mass Index (BMI) 23.4 Finger Stick Blood Glucose 163 Laboratory Tests Past 24 Hrs 03/19/19 03/19/19 03/19/19 01:35 01:35 01:35 WBC 6.4 RBC 2.80 L Hgb 8.3 L Hct 26.3 L MCV 93.9 MCH 29.6 MCHC 31.6 L RDW 15.1 H RDW Differential 49.2 H Plt Count 225 MPV 11.3 Immature Gran % (Auto) 0.200 Neut % (Auto) 71.6 H Lymph % (Auto) 17.7 L [place] % (Auto) 8.6 Eos % (Auto) 1.6 Baso % (Auto) 0.3 Absolute Neuts (auto) 4.6 Absolute Lymphs (auto) 1.13 Total Counted Not Reportable Sodium 139 Potassium 4.4 Chloride 108 H Carbon Dioxide 20.0 L Anion Gap 11 BUN 31 H Creatinine 2.52 H Estim Creat Clear Calc 22.03 Est GFR (MDRD) Af Amer 32 L Est GFR (MDRD) Non-Af 27 L BUN/Creatinine Ratio 12.3 Glucose 119 H Calcium 8.6 Magnesium 1.8 Total Bilirubin 2.20 H AST 25 ALT 22 Alkaline Phosphatase 93 Troponin I 0.039 B-Natriuretic Peptide Pending Total Protein 7.5 Albumin 3.8 Globulin 3.7 Albumin/Globulin Ratio 1.0 Assessment/Plan All Active Problems (Last Reviewed 03/07/19 @ 14:04 by Napoleon Zabala MD) Chest pain (Acute) H/O coronary artery bypass surgery (Resolved 04/30/14) Dyspnea (Resolved) Incarcerated right inguinal hernia (Resolved) Preop cardiovascular exam (Resolved) The patient is a 73 y/o M w/ PMHx: CKD stage III, Chronic Anemia, Chronic Systolic CHF, Ischemic Cardiomyopathy, CAD s/p CABG x 3, HTN, HLD, Diabetes mellitus type II, Anxiety and Depression who presents to the [facility] ED on 03/19/19 with history of intermittent chest pain and dyspnea over the last few weeks, worse with exertion, described as heaviness although it also does seem to be exacerbated certain movements with lightheadedness, rated 5/10 at its worse and upon evaluation in the ED 0/10 with associated pedal edema, orthopnea. (1) Acute Decompensated Systolic CHF with Chest Pain: Work-up in the ED included T 97.7, heart rate 75, BP 143/80, respiratory rate 15, 92% on room air, CBC with WBC 6.4, hemoglobin 8.3, platelet 225 market shift, CMP with chloride 108, carbon dioxide 20, BUN/creatinine 31/2.52, glucose 119, T Bili 2.20, trop 0.039, chest x-ray with cardiomegaly with mild vascular congestion with no evidence of pneumonia or pleural effusions, EKG with with no acute evidence of ischemia w/ RBBB. Patient administered IV lasix in the ED, will admit to PCU, maintain on cardiac telemetry, obtain cardiac enzyme series, obtain serial EKGs, continue IV lasix diuresis, monitor I/Os, maintain on intake restriction, continue medical therapy w/ asa, statin, BB, ACEI. Will obtain TSH and magnesium level. Most recent ECHO noted 2013 with repeat pending. Cardiology consulted, pending. PRN morphine to decrease afterload, continue oxygen supplementation, if necessary will position w/ upright position with legs off bed to decrease preload. Given presentation once exacerbation resolved may need to consider stress testing. (2) CAD: Status post CABG x 3 (FULTON-distal D1, SVG-OM, SVG-Distal PDA 04/30/2014 at [facility]), continue home aspirin, statin, Coreg, lisinopril (3) Chronic Normocytic Anemia, Fe Deficiency, AOCD: Admission hemoglobin 8.3, prior noted similar 8.3-8.5, baseline more remotely 10-11 range, stable, trend CBC. Continue Fe supplementation. (4) Chronic Kidney Disease Stage ? IV: Admission BUN/Cr 31/2.52, baseline renal function 2.4, repeat BMP in AM. (5) Hypertension: Continue home regimen including IV Lasix as noted, Coreg, lisinopril, PRN hydralazine. (6) Hyperlipidemia: Continue home statin regimen. (7) Diabetes mellitus type II: Hold oral home regimen, ADA diet, accu checks w/ ISS. Given patient renal function, prior to discharge his medications will need to be adjusted for his renal disease. (8) Anxiety and depression: Continue home escitalopram regimen. (9) GERD: PPI. (10) DVT prophylaxis: SCD, heparin. Code Visit Inpatient E&M: 21522 Init Hosp L3
[2019-03-19 05:07] LABS: Absolute Lymphocyte Count 0.81 X10^3/ul (0.83-4.51); Absolute Neutrophil Count 3.4 X10^3/uL (2.0-7.7); Basophil# 0.02 X10^3/uL; Basophil% 0.4 % (0-1); Eosinophil# 0.08 X10^3/uL; Eosinophils% 1.7 % (0-5); Hematocrit 23.9 % (40-54); Hemoglobin 7.6 g/dl (13.0-16.5); Lymphocyte # 0.81 X10^3/ul (4.0); Mean Corp Hgb Conc 31.8 g/gl (32-36); Mean Corpuscular Hgb 29.7 pg (27.0-32.0); Mean Corpuscular Volume 93.4 fL (80-94); Mean Platelet Vol. 11.1 fl (6.2-12.0); Monocyte# 0.43 X10^3/uL; Neutrophil # 3.41 X10^3/uL (2.7-7.7); Neutrophil % 71.7 % (47-70); POSITIVE COUNT NO; POSITIVE DIFFERENTIAL NO; POSITIVE MORPHOLOGY NO; Platelet Count 195 K/mm3 (150-450); RBC Distribution Width CV 14.7 % (11.6-14.6); RBC Distribution Width SD 48.2 fl (35.1-43.9); Red Blood Count 2.56 M/mm3 (4.6-6.2); White Blood Count 4.8 K/mm3 (4.4-11.0)
[2019-03-19 05:35] LABS: Anion Gap 11 (5-15); BUN 33 mg/dL (7-18); BUN/Creat Ratio 13.3 RATIO (10-20); Calcium,Total 8.2 mg/dL (8.5-10.1); Chloride 110 mmol/L (98-107); Cholesterol 78 mg/dL (200); Creatinine, Serum 2.48 mg/dL (0.70-1.30); EST Glomerular Filtration Rate 27 mL/min (>60); Est Glom Filt Rate - Afr Amer 33 mL/min (>60); Estimated Creatinine Clearance 21.55 ml/min; Glucose 115 mg/dL (74-106); High Density Lipoprotein 27 mg/dL; Potassium 3.7 mmol/L (3.5-5.1); Sodium Level 142 mmol/L (136-145); Thyroid Stim Hormone (TSH) 3.27 uIU/mL (0.358-3.74); Triglycerides 115 mg/dL; Very Low Density Lipoprotein 23 mg/dL (5-40)
--- NOTE | 2019-03-19 05:55 | EKG12_ITS ---
Test Reason : ADM EKG Blood Pressure : / mmHG Vent. Rate : 076 BPM Atrial Rate : 076 BPM P-R Int : 158 ms QRS Dur : 152 ms QT Int : 438 ms P-R-T Axes : 056 100 003 degrees QTc Int : 492 ms Sinus rhythm with frequent Premature ventricular complexes in a pattern of bigeminy Right bundle branch block Abnormal ECG When compared with ECG of 30-MAR-2018 05:42, Premature ventricular complexes are now Present Right bundle branch block is now Present Confirmed by LOUANN CIFUENTES, GLENNA ([id number]), senior editor CARLITA VASQUEZ ([id number]) on 03/21/2019 8:14:35 AM Referred By: Ana Moncada Confirmed By:GLENNA LEW MD
--- NOTE | 2019-03-19 05:55 | ECHOCS_ITS ---
Reason For Study: CHF Procedure This was a 2D Doppler, Color Flow transthoracic echocardiogram. Exam performed in department. Left Ventricle Severely dilated left ventricle. The estimated ejection fraction is 15 %. Septal motion consistent with IVCD. There is severe global hypokinesis of the left ventricle. Right Ventricle Moderately dilated right ventricle. Normal systolic function. Atria The left atrium is moderately enlarged. Normal right atrium. Normal atrial septum. Mitral Valve The mitral valve is structurally normal. No prolapse or stenosis seen. Mild-Moderate (1-2+) eccentric mitral valve insufficiency. Tricuspid Valve Normal tricuspid valve. Mild (1+) tricuspid valve insufficiency. Right ventricular systolic pressure estimated to be 61 mmHg. Severe pulmonary hypertension. Aortic Valve Trisinus/trileaflet aortic valve. Pulmonic Valve Normal pulmonic valve. Great Vessels Calcified aortic root. Normal arch. The inferior vena cava is dilated. No collapse of the inferior vena cava. Pericardium/Pleural No pericardial effusion. Medication Diluted definity 1ml given slow IV push to enhance endocardial definition. MMode/2D Measurements & Calculations LVIDd: 6.4 cm IVSd: 0.91 cm Ao root diam: 3.0 cm LVIDs: 6.0 cm LVPWd: 0.94 cm RVDd: 4.3 cm FS: 6.2 % LAV(MOD-bp): 89.3 ml EDV(MOD-sp4): 212.3 ml EDV(MOD-sp2): 199.9 ml LAV(MOD-bp) Indexed: 53.0 ml/m2 ESV(MOD-sp4): 166.9 ml EF(MOD-sp2): 22.5 % LAV(MOD-sp2): 95.3 ml EF(MOD-sp4): 21.4 % LAV(MOD-sp4): 72.2 ml SV(MOD-sp4): 45.4 ml SV(MOD-sp2): 44.9 ml LA A4 area: 21.4 cm2 LA dimension(2D): 4.9 cm RA A4 area: 15.8 cm2 Time Measurements MV dec time: 0.14 sec Doppler Measurements & Calculations MV E max silvio: 92.6 cm/sec Lat Peak E' Silvio: 2.0 cm/sec Med Peak E' Silvio: 1.4 cm/sec MV A max silvio: 23.4 cm/sec E/E' lat: 45.5 E/E' med: 65.2 MV E/A: 4.0 Ao V2 max: 117.3 cm/sec LV V1 max: 61.2 cm/sec PA V2 max: 77.3 cm/sec Ao max P.5 mmHg LV V1 max P.5 mmHg PI end-d silvio: 167.3 cm/sec TR max silvio: 338.4 cm/sec TR max P.9 mmHg Interpretation Summary Severely dilated left ventricle. The estimated ejection fraction is 15 %. There is severe global hypokinesis of the left ventricle. Moderately dilated right ventricle. The left atrium is moderately enlarged. Mild-Moderate (1-2+) eccentric mitral valve insufficiency. Mild (1+) tricuspid valve insufficiency. Right ventricular systolic pressure estimated to be 61 mmHg. Severe pulmonary hypertension. The inferior vena cava is dilated Compared to echo report dated 10/14/2014, LV function has worsened from 30% to 15%. RVSP not estimated at that time. The study was technically difficult. Contrast injection was performed. Ordering Physician: Ana Moncada Referring Physician: AURA VASQUEZ Performed By: Alisha Shabazz RDCS, RVT
[2019-03-19 06:56] LABS: Bedside Glucose 106 mg/dL (70-110)
[2019-03-19 07:41] LABS: Hematocrit 27.4 % (40-54); Hemoglobin 8.7 g/dl (13.0-16.5)
[2019-03-19 08:13] LABS: Iron 44 ug/dL (65-175); Iron Binding Capacity,Total 285 ug/dL (250-450); PERCENT IRON SATURATION 15.4 % (15.0-55.0)
--- NOTE | 2019-03-19 08:44 | CON.PCM_ITS ---
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 transplanted heart: [place] heart Qualified Code(s): I25.810 - Atherosclerosis of coronary artery bypass graft(s) without angina pectoris Comment: CABG x 3: FULTON-distal D1, SVG-OM, SVG-Distal PDA 04/30/2014 (5) Atherosclerotic heart disease of [place] coronary artery without angina pectoris Status: Chronic Comment: CABG x 3: FULTON-distal D1, SVG-OM, SVG-Distal PDA 04/30/2014 (6) HLD (hyperlipidemia) Status: Chronic Qualifiers: Reason for Consult Date of Consultation: 03/19/19 Reason for Consultation: Chest pain, coronary artery disease, hypertension, hyperlipidemia, diabetes, dyspnea on exertion History of Present Illness: The patient is a 73 year old M with a history of hypertension, hypercholesterolemia, coronary artery disease status post multivessel bypass surgery which took place at [facility] on 04/30/[address] Owens. At that time he had a high risk coronary bypass surgery x3 with a FULTON to the LAD/diagonal distal branch, saphenous vein graft to the obtuse marginal, and a saphenous vein graft to the distal PDA. The patient has been doing well up into the last couple of months when he developed new onset atypical, nonexertional chest pain, worse with laying down flat and improves with sitting forward. However, he also complains of worsening dyspnea on exertion going to get his mail at the end of the driveway, shortness of breath and lower extremity edema. He apparently has not had a heart catheterization since his bypass surgery in 2013. Apparently he sees Dr. Zabala however he has memory issues and does not recall who his talent development consultant is. Patient was admitted last evening, and his EKG showed sinus rhythm with ventricular bigeminy in a right bundle branch pattern. No acute changes were noted. Troponins were negative x2. He is has no chest pain this morning. He is a non-smoker, is medically compliant, and does complain of lower extremity edema. In addition he complains of mild lightheadedness getting up from a sitting position. Echocardiogram and stress test are pending. [] Past Medical History Allergies/Adverse Reactions: Allergies No Known Allergies Allergy (Verified 03/07/19 13:26) Home Medications: Ambulatory Orders Medication Instructions Recorded Glimepiride 4 mg PO DAILY 04/26/14 Aspirin [Aspirin, Baby] 81 mg PO DAILY@0800 09/29/14 escitalopram 10 mg tablet 10 mg PO QDAY 30 Days #30 tab 02/04/18 pantoprazole 40 mg tablet,delayed 40 mg PO QDAY 30 Days #30 tab 02/07/18 release atorvastatin 80 mg tablet 80 mg PO QHS #90 tab 04/08/18 furosemide 40 mg tablet 40 mg PO DAILY #90 tab 09/03/18 carvedilol 12.5 mg tablet 12.5 mg PO BID #180 tab 02/05/19 lisinopril 5 mg tablet 5 mg PO QDAY #90 tab 02/10/19 metformin 850 mg tablet 850 mg PO DAILY 30 Days #30 tab 03/07/19 Ferrous Sulfate [Iron] 325 mg PO DAILY 03/19/19 Past Medical History (Chronic Problems): Chronic Problems (Last Reviewed 03/07/19 @ 14:04 by Napoleon Zabala MD) Diabetes mellitus, type II (Chronic) GERD (gastroesophageal reflux disease) (Chronic) Essential (primary) hypertension (Chronic) Chronic systolic (congestive) heart failure (Chronic) Ischemic cardiomyopathy (Chronic) 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 Psychiatric History: Anxiety, Depression - *Family History Paternal Family History: Family History (Last Reviewed 03/07/19 @ 14:04 by Napoleon Zabala MD) Brother CAD (coronary artery disease) History Items: - - Patient notes father with a history of polio with debility secondary to this but otherwise had been healthy and in his 90s. Maternal Family History: Family History (Last Reviewed 03/07/19 @ 14:04 by Napoleon Zabala MD) Brother CAD (coronary artery disease) History Items: Heart Disease Sibling Family History: Family History (Last Reviewed 03/07/19 @ 14:04 by Napoleon Zabala MD) Brother CAD (coronary artery disease) History Items: Heart Disease Lives: Spouse/ Significant Other Smoking Status: Never smoker Tobacco Use: Non-smoker Alcohol: None Drugs: None Review of Systems - Review of Systems General: Denies: Fever, Night Sweats, Fatigue Cardiovascular: Reports: Chest Discomfort, Chest Discomfort at Rest, Chest Discomfort with Exertion, Shortness of Breath, Shortness of Breath with Exertion, Peripheral Edema. Denies: Orthopnea, PND, Palpitations, Lightheadedness, Dizziness, Near Syncope, Syncope Respiratory: Denies: Cough, Sputum Production, Hemoptysis Gastrointestinal: Denies: Hematemesis, Hematochezia, Melena Genitourinary: Denies: Dysuria, Hematuria Skin: Denies: Rash Subjectve: Patient sitting on the edge of the bed, no acute distress. Objective: Vital Signs Temp Pulse Resp BP Pulse Ox 97.8 F 84 18 127/89 H 94 03/19/19 06:50 03/19/19 07:03 03/19/19 06:50 03/19/19 06:50 03/19/19 06:50 Oxygen Flow Rate (L/min) 1 Oxygen Delivery Method Nasal Cannula Weight: 137 lb 9.095 oz Body Mass Index (BMI) 22.9 Finger Stick Blood Glucose 163 Intake and Output for Last 24 Hours 03/17/19 03/18/19 03/19/19 23:59 23:59 23:59 Intake Total 240 / 240 Output Total 50 / 50 Balance 190 / 190 General: Awake, Alert, Oriented x 3 HEENT: PERRL, EOMI, Sclera Non Icteric Neck: Supple, Good ROM, No Lymph Node Enlargement Lungs: Clear to auscultation Cardiovascular: Regular Rhythm, Premature Ectopic Beats, Normal S1, Normal S2, No Murmurs, No Rubs, No Gallops Vascular: No Carotid Bruits, Normal Femoral Pulses, Normal Radial Pulses, Normal Dorsalis Pedal Pulse, Normal Posterior Tibial Pulses Abdomen: Bowel Sounds Present, Soft, Non Tender, No HSM, No Organomegaly Extremities: No Cyanosis, No Clubbing, No edema Neurological: No Focal Motor or Sensory Deficit 03/19/19 01:35: WBC 6.4, RBC 2.80 L, Hgb 8.3 L, Hct 26.3 L, MCV 93.9, MCH 29.6, MCHC 31.6 L, RDW 15.1 H, RDW Differential 49.2 H, Plt Count 225, MPV 11.3, Immature Gran % (Auto) 0.200, Neut % (Auto) 71.6 H, Lymph % (Auto) 17.7 L, [place] % (Auto) 8.6, Eos % (Auto) 1.6, Baso % (Auto) 0.3, Absolute Neuts (auto) 4.6, Total Counted Not Reportable 03/19/19 01:35: Sodium 139, Potassium 4.4, Chloride 108 H, Carbon Dioxide 20.0 L , Anion Gap 11, BUN 31 H, Creatinine 2.52 H, Est GFR (MDRD) Af Amer 32 L, Est GFR (MDRD) Non-Af 27 L, BUN/Creatinine Ratio 12.3, Glucose 119 H, Calcium 8.6, Magnesium 1.8, Total Bilirubin 2.20 H, Troponin I 0.039 03/19/19 01:35: B-Natriuretic Peptide 1692.0 H 03/19/19 05:00: WBC 4.8, RBC 2.56 L, Hgb 7.6 L, Hct 23.9 L, MCV 93.4, MCH 29.7, MCHC 31.8 L, RDW 14.7 H, RDW Differential 48.2 H, Plt Count 195, MPV 11.1, Immature Gran % (Auto) 0.200, Neut % (Auto) 71.7 H, Lymph % (Auto) 17.0 L, [place] % (Auto) 9.0, Eos % (Auto) 1.7, Baso % (Auto) 0.4, Absolute Neuts (auto) 3.4, Total Counted Not Reportable 03/19/19 05:00: Sodium 142, Potassium 3.7, Chloride 110 H, Carbon Dioxide 21.0, Anion Gap 11, BUN 33 H, Creatinine 2.48 H, Est GFR (MDRD) Af Amer 33 L, Est GFR (MDRD) Non-Af 27 L, BUN/Creatinine Ratio 13.3, Glucose 115 H, Calcium 8.2 L, Troponin I 0.041, Triglycerides 115, Cholesterol 78, LDL Cholesterol 28, VLDL Cholesterol 23, HDL Cholesterol 27 L 03/19/19 07:25: Troponin I 0.040 03/19/19 07:25: Hgb 8.7 L, Hct 27.4 L 03/19/19 07:25: Iron 44 L, TIBC 285, Iron Saturation 15.4 Rhythm: EKG: ECHO: Stress Test: Cardiac Cath: PCI: CT Surgery: Holter monitor: EPS: PPM: CXR: Chest CT Scan: Assessment/Plan 1. Coronary artery disease: The patient complains of both atypical and typical chest pain symptoms, some with exertion, some with rest and with recumbency. His EKG shows no overt abnormalities, no ST elevation in his troponins have been essentially negative x2. Patient also has some memory issues, as well as chronic renal insufficiency and anemia which may all be contributing to his overall symptoms. I have recommended the patient undergo a 2D echo with Doppler to determine his LV function, valvular status and pulmonary pressures. In addition I recommend that he undergo a modified Ravi treadmill echocardiogram to evaluate for possible ischemia. If the patient's stress test is markedly abnormal, I would recommend a repeat catheterization and graft angiography with either myself or Dr. Zabala. Would not recommend LV angiogram given his chronic renal insufficiency, and should the patient require intervention we may want to consider a staged procedure. In the meantime we will continue baby aspirin, and would only loaded with Plavix if he was to require a catheterization given his anemia. Would recommend keeping his hemoglobin above 9.0, and this may assist with his positional lightheadedness, dizziness, shortness of breath, and oxygen carrying capacity. His anemia may be a result of his chronic renal insufficiency but would recommend evaluation to look for a GI source. 2. Hyperlipidemia: His LDL and HDL cholesterol are fairly well-controlled. Continue Lipitor. 3. Thank you very much for the opportunity to participate in the cardiac care of your patient. Consultation time took place between 8 AM and 8:30 AM. Code Visit Inpatient E&M: 65448 Init Hosp L2
[2019-03-19] MEDS: Aspirin 81 MG TAB.CHEW PO (08:49)
[2019-03-19] MEDS: Lisinopril 5 MG Tablet PO (08:49)
[2019-03-19] MEDS: Pantoprazole Sodium 40 MG Tablet PO (08:49)
--- NOTE | 2019-03-19 10:14 | PCM.PN.HOSP ---
Patient Problems: Active and Suspected Problems (Last Reviewed 03/07/19 @ 14:04 by Napoleon Zabala MD) Chest pain (Acute) Subjective: Patient seen and examined. He was admitted with complaint of intermittent chest pain and dyspnea over the last few weeks which worsened with exertion. He also had orthopnea and coughing with lying down. BNP was markedly elevated on admission chest x-ray showed cardiomegaly with mild vascular congestion. He was admitted and is being managed for acute CHF exacerbation. Patient has no complaints this morning. Shortness of breath has improved. He denies any chest pain now. Denies any palpitations or dizziness, abdominal pain, diarrhea vomiting. Review of systems otherwise negative. Labs and vitals reviewed. Cardiology on board. Vitals/I&O's: Vital Signs Temp Pulse Resp BP Pulse Ox 97.6 F L 85 16 137/75 H 96 03/19/19 08:48 03/19/19 08:48 03/19/19 08:48 03/19/19 08:48 03/19/19 08:48 Oxygen Flow Rate (L/min) 1 Oxygen Delivery Method Room Air Weight: 137 lb 9.095 oz Body Mass Index (BMI) 22.9 Finger Stick Blood Glucose 163 Intake and Output for Last 24 Hours 03/17/19 03/18/19 03/19/19 23:59 23:59 23:59 Intake Total 240 / 240 Output Total 50 / 50 Balance 190 / 190 General: Alert, Oriented x3, Cooperative, No apparent distress HEENT: Atraumatic, PERRLA, EOMI, Normocephalic, - - patient looks pale Oral: Moist Mucosa Neck: Supple, No JVD, Negative Carotid Bruits Lungs: - - decreased breath sounds bibasally, no wheezes or crackles Cardiovascular: Regular rate, Regular Rhythm, Normal S1, Normal S2, No murmurs Abdomen: Bowel Sounds Present, Soft, Non Tender, Non-Distended, No Hepato-splenomegaly Extremities: No clubbing, No cyanosis, No edema, Capillary Refill Less than 3 Seconds Skin: No rashes, No breakdown Musculoskeletal: No Tenderness to Palpation of Joints or Extremities Lymphatic: No Cervical, Supraclavicular, or Inguinal Adenopathy Neurological: Cranial nerves II-XII grossly intact, Neuro grossly intact, Motor Exam 5/5 strength throughout Psych/Mental Status: Normal Affect, Appropriate, Alert and oriented to time, place, person, mood and affect Laboratory Results 03/19/19 01:35: WBC 6.4, RBC 2.80 L, Hgb 8.3 L, Hct 26.3 L, MCV 93.9, MCH 29.6, MCHC 31.6 L, RDW 15.1 H, RDW Differential 49.2 H, Plt Count 225, MPV 11.3, Immature Gran % (Auto) 0.200, Neut % (Auto) 71.6 H, Lymph % (Auto) 17.7 L, [place] % (Auto) 8.6, Eos % (Auto) 1.6, Baso % (Auto) 0.3, Absolute Neuts (auto) 4.6, Absolute Lymphs (auto) 1.13, Total Counted Not Reportable 03/19/19 01:35: Sodium 139, Potassium 4.4, Chloride 108 H, Carbon Dioxide 20.0 L, Anion Gap 11, BUN 31 H, Creatinine 2.52 H, Estim Creat Clear Calc 22.03, Est GFR (MDRD) Af Amer 32 L, Est GFR (MDRD) Non-Af 27 L, BUN/Creatinine Ratio 12.3, Glucose 119 H, Calcium 8.6, Magnesium 1.8, Total Bilirubin 2.20 H, AST 25, ALT 22, Alkaline Phosphatase 93, Troponin I 0.039, Total Protein 7.5, Albumin 3.8, Globulin 3.7, Albumin/Globulin Ratio 1.0 03/19/19 01:35: B-Natriuretic Peptide 1692.0 H 03/19/19 05:00: WBC 4.8, RBC 2.56 L, Hgb 7.6 L, Hct 23.9 L, MCV 93.4, MCH 29.7, MCHC 31.8 L, RDW 14.7 H, RDW Differential 48.2 H, Plt Count 195, MPV 11.1, Immature Gran % (Auto) 0.200, Neut % (Auto) 71.7 H, Lymph % (Auto) 17.0 L, [place] % (Auto) 9.0, Eos % (Auto) 1.7, Baso % (Auto) 0.4, Absolute Neuts (auto) 3.4, Absolute Lymphs (auto) 0.81 L, Total Counted Not Reportable 03/19/19 05:00: Sodium 142, Potassium 3.7, Chloride 110 H, Carbon Dioxide 21.0, Anion Gap 11, BUN 33 H, Creatinine 2.48 H, Estim Creat Clear Calc 21.55, Est GFR (MDRD) Af Amer 33 L, Est GFR (MDRD) Non-Af 27 L, BUN/Creatinine Ratio 13.3, Glucose 115 H, Calcium 8.2 L, Troponin I 0.041, Triglycerides 115, Cholesterol 78, LDL Cholesterol 28, VLDL Cholesterol 23, HDL Cholesterol 27 L, TSH 3.27 03/19/19 06:45: POC Glucose 106 03/19/19 07:25: Troponin I 0.040 03/19/19 07:25: Hgb 8.7 L, Hct 27.4 L 03/19/19 07:25: Iron 44 L, TIBC 285, Iron Saturation 15.4 Diagnostic Data Chest X-Ray 03/19/19 01:26 IMPRESSION: Cardiomegaly with mild central vascular congestion. No pneumonia. No pleural effusions. Electronically Signed: Alphonso Fontana MD at 1:50 EDT Tel , Service support , Current Medications Acetaminophen (Tylenol) 650 mg PO Q6H PRN PRN PRN Reason: Non-cardiac pain (mod-severe) Hydrocodone Bitart/Acetaminophen ([place] 5mg-325mg) 1 - 2 tablet PO Q6H PRN PRN PRN Reason: MOD-SEVERE PAIN (4-10/10) Al Hydroxide/Mg Hydroxide (Mylanta Ii) 15 - 30 ml PO Q4H PRN PRN PRN Reason: INDIGESTION Albuterol Sulfate (Ventolin Aerosols) 2.5 mg INHALATION Q2H PRN PRN PRN Reason: dyspnea, wheezing Aspirin (Aspirin, Baby) 81 mg PO DAILY@0800 [facility] Last Admin: 03/19/19 08:49 Dose: 81 mg Atorvastatin Calcium (Lipitor) 80 mg PO QHS [facility] Carvedilol (Coreg) 12.5 mg PO BID [facility] Dextrose (D50w Syringe) 0 gm IV X1 PRN; Protocol PRN Reason: Hypoglycemia Escitalopram Oxalate (Lexapro) 10 mg PO DAILY [facility] Ferrous Sulfate (Ferrous Sulfate) [facility] Furosemide (Lasix) 60 mg IV Q8 [facility] Glucagon () 1 mg IM .X1 PRN PRN Reason: Hypoglycemia Heparin Sodium (Porcine) (Heparin Na) 5,000 unit SC Q12 [facility] Hydralazine HCl (Apresoline Iv) 10 mg IV Q4H PRN PRN PRN Reason: SBP > 160 Insulin Human Lispro (Humalog Kwikpen (Bkc)) 0 unit SQ ACHS [facility]; Protocol Last Admin: 03/19/19 06:51 Dose: Not Given Lisinopril (Zestril) 5 mg PO DAILY [facility] Last Admin: 03/19/19 08:49 Dose: 5 mg Melatonin (Melatonin) 3 mg PO QHS PRN PRN PRN Reason: INSOMNIA Morphine Sulfate () 1 - 2 mg IV Q4H PRN PRN PRN Reason: PAIN Nitroglycerin (Nitrostat) 0.4 mg SUBLINGUAL Q5M PRN PRN Reason: CARDIAC/CHEST PAIN Nutritional Formula (Lactose Free) (Glucerna Shake) 120 ml PO TIDCM [facility] Last Admin: 03/19/19 08:49 Dose: Not Given Ondansetron HCl (Zofran) 4 mg IV Q8H PRN PRN PRN Reason: NAUSEA/VOMITING Pantoprazole Sodium (Protonix) 40 mg PO DAILY [facility] Last Admin: 03/19/19 08:49 Dose: 40 mg Sodium Chloride () 5 - 15 ml IV UD PRN PRN Reason: SALINE FLUSH Medical Necessity - Tobacco Use Smoking Status: Never smoker Tobacco Use: Non-smoker Assessment/Plan All Active Problems (Last Reviewed 03/07/19 @ 14:04 by Napoleon Zabala MD) Chest pain (Acute) H/O coronary artery bypass surgery (Resolved 04/30/14) Dyspnea (Resolved) Incarcerated right inguinal hernia (Resolved) Preop cardiovascular exam (Resolved) 1. Acute exacerbation of Heart failure with reduced EF BNP was 1692 on admission currently on IV lasix 40mg bid; monitor input output and daily weights. restrict fluid to 1500cc daily EKG showed no acute ST changes and troponins x 3 were negative cardiology on board chest pain hasnt recurred since admission 2D echo done showed EF of 15%, with septal motion consistent with IVCD, severely dilated LV and sevre global hypokinesis of LV; modrately dilated RV and left artrium also moderatley dilated. RVSP estimated to be 61mmhg for cardiac cath tomorrow per cardiology 2. CAD s/p CABG x 3: chest pain hasnt recurred since admission. On aspirin, statin, coreg and lisinopril. For stress test today 3. Chronic normocytic iron deficiency anemia Hemoglobin was 8.3 on admission. Repeat this morning was 7.6 but one was repeated again it was 8.6. This has been noted to be around his baseline. Oral iron supplementation. Iron panel showed iron of 44, with iron saturation of 15.4. 4. Hypertension: On Coreg, lisinopril and PRN hydralazine. 5. CKD stage IV: Creatinine is 2.48 today with his baseline around 2.4. Will monitor. 6. Hyperlipidemia: On statin 7. Anxiety and depression: On Lexapro 8. GERD: On PPI. DVT prophylaxis: Heparin Code Visit Inpatient E&M: 89320 Subs Hosp L3
--- NOTE | 2019-03-19 10:18 | PN_ITS ---
Patient Problems: Active and Suspected Problems (Last Reviewed 03/07/19 @ 14:04 by Napoleon Zabala MD) Chest pain (Acute) Subjective: Patient seen and examined. He was admitted with complaint of intermittent chest pain and dyspnea over the last few weeks which worsened with exertion. He also had orthopnea and coughing with lying down. BNP was markedly elevated on admission chest x-ray showed cardiomegaly with mild vascular congestion. He was admitted and is being managed for acute CHF exacerbation. Patient has no complaints this morning. Shortness of breath has improved. He denies any chest pain now. Denies any palpitations or dizziness, abdominal pain, diarrhea vomiting. Review of systems otherwise negative. Labs and vitals reviewed. Cardiology on board. Vitals/I&O's: Vital Signs Temp Pulse Resp BP Pulse Ox 97.6 F L 85 16 137/75 H 96 03/19/19 08:48 03/19/19 08:48 03/19/19 08:48 03/19/19 08:48 03/19/19 08:48 Oxygen Flow Rate (L/min) 1 Oxygen Delivery Method Room Air Weight: 137 lb 9.095 oz Body Mass Index (BMI) 22.9 Finger Stick Blood Glucose 163 Intake and Output for Last 24 Hours 03/17/19 03/18/19 03/19/19 23:59 23:59 23:59 Intake Total 240 / 240 Output Total 50 / 50 Balance 190 / 190 General: Alert, Oriented x3, Cooperative, No apparent distress HEENT: Atraumatic, PERRLA, EOMI, Normocephalic, - - patient looks pale Oral: Moist Mucosa Neck: Supple, No JVD, Negative Carotid Bruits Lungs: - - decreased breath sounds bibasally, no wheezes or crackles Cardiovascular: Regular rate, Regular Rhythm, Normal S1, Normal S2, No murmurs Abdomen: Bowel Sounds Present, Soft, Non Tender, Non-Distended, No Hepato- splenomegaly Extremities: No clubbing, No cyanosis, No edema, Capillary Refill Less than 3 Seconds Skin: No rashes, No breakdown Musculoskeletal: No Tenderness to Palpation of Joints or Extremities Lymphatic: No Cervical, Supraclavicular, or Inguinal Adenopathy Neurological: Cranial nerves II-XII grossly intact, Neuro grossly intact, Motor Exam 5/5 strength throughout Psych/Mental Status: Normal Affect, Appropriate, Alert and oriented to time, place, person, mood and affect Laboratory Results 03/19/19 01:35: WBC 6.4, RBC 2.80 L, Hgb 8.3 L, Hct 26.3 L, MCV 93.9, MCH 29.6, MCHC 31.6 L, RDW 15.1 H, RDW Differential 49.2 H, Plt Count 225, MPV 11.3, Immature Gran % (Auto) 0.200, Neut % (Auto) 71.6 H, Lymph % (Auto) 17.7 L, [place] % (Auto) 8.6, Eos % (Auto) 1.6, Baso % (Auto) 0.3, Absolute Neuts (auto) 4.6, Absolute Lymphs (auto) 1.13, Total Counted Not Reportable 03/19/19 01:35: Sodium 139, Potassium 4.4, Chloride 108 H, Carbon Dioxide 20.0 L , Anion Gap 11, BUN 31 H, Creatinine 2.52 H, Estim Creat Clear Calc 22.03, Est GFR (MDRD) Af Amer 32 L, Est GFR (MDRD) Non-Af 27 L, BUN/Creatinine Ratio 12.3, Glucose 119 H, Calcium 8.6, Magnesium 1.8, Total Bilirubin 2.20 H, AST 25, ALT 22, Alkaline Phosphatase 93, Troponin I 0.039, Total Protein 7.5, Albumin 3.8, Globulin 3.7, Albumin/Globulin Ratio 1.0 03/19/19 01:35: B-Natriuretic Peptide 1692.0 H 03/19/19 05:00: WBC 4.8, RBC 2.56 L, Hgb 7.6 L, Hct 23.9 L, MCV 93.4, MCH 29.7, MCHC 31.8 L, RDW 14.7 H, RDW Differential 48.2 H, Plt Count 195, MPV 11.1, Immature Gran % (Auto) 0.200, Neut % (Auto) 71.7 H, Lymph % (Auto) 17.0 L, [place] % (Auto) 9.0, Eos % (Auto) 1.7, Baso % (Auto) 0.4, Absolute Neuts (auto) 3.4, Absolute Lymphs (auto) 0.81 L, Total Counted Not Reportable 03/19/19 05:00: Sodium 142, Potassium 3.7, Chloride 110 H, Carbon Dioxide 21.0, Anion Gap 11, BUN 33 H, Creatinine 2.48 H, Estim Creat Clear Calc 21.55, Est GFR (MDRD) Af Amer 33 L, Est GFR (MDRD) Non-Af 27 L, BUN/Creatinine Ratio 13.3, Glucose 115 H, Calcium 8.2 L, Troponin I 0.041, Triglycerides 115, Cholesterol 78, LDL Cholesterol 28, VLDL Cholesterol 23, HDL Cholesterol 27 L, TSH 3.27 03/19/19 06:45: POC Glucose 106 03/19/19 07:25: Troponin I 0.040 03/19/19 07:25: Hgb 8.7 L, Hct 27.4 L 03/19/19 07:25: Iron 44 L, TIBC 285, Iron Saturation 15.4 Diagnostic Data Chest X-Ray 03/19/19 01:26 IMPRESSION: Cardiomegaly with mild central vascular congestion. No pneumonia. No pleural effusions. Electronically Signed: Alphonso Fontana MD at 1:50 EDT Tel , Service support , Current Medications Acetaminophen (Tylenol) 650 mg PO Q6H PRN PRN PRN Reason: Non-cardiac pain (mod-severe) Hydrocodone Bitart/Acetaminophen (Dupree 5mg-325mg) 1 - 2 tablet PO Q6H PRN PRN PRN Reason: MOD-SEVERE PAIN (4-10/10) Al Hydroxide/Mg Hydroxide (Mylanta Ii) 15 - 30 ml PO Q4H PRN PRN PRN Reason: INDIGESTION Albuterol Sulfate (Ventolin Aerosols) 2.5 mg INHALATION Q2H PRN PRN PRN Reason: dyspnea, wheezing Aspirin (Aspirin, Baby) 81 mg PO DAILY@0800 [facility] Last Admin: 03/19/19 08:49 Dose: 81 mg Atorvastatin Calcium (Lipitor) 80 mg PO QHS [facility] Carvedilol (Coreg) 12.5 mg PO BID [facility] Dextrose (D50w Syringe) 0 gm IV X1 PRN; Protocol PRN Reason: Hypoglycemia Escitalopram Oxalate (Lexapro) 10 mg PO DAILY [facility] Furosemide (Lasix) 60 mg IV Q8 [facility] Glucagon () 1 mg IM .X1 PRN PRN Reason: Hypoglycemia Heparin Sodium (Porcine) (Heparin Na) 5,000 unit SC Q12 [facility] Hydralazine HCl (Apresoline Iv) 10 mg IV Q4H PRN PRN PRN Reason: SBP > 160 Insulin Human Lispro (Humalog Kwikpen (Bkc)) 0 unit SQ ACHS [facility]; Protocol Last Admin: 03/19/19 06:51 Dose: Not Given Lisinopril (Zestril) 5 mg PO DAILY [facility] Last Admin: 03/19/19 08:49 Dose: 5 mg Melatonin (Melatonin) 3 mg PO QHS PRN PRN PRN Reason: INSOMNIA Morphine Sulfate () 1 - 2 mg IV Q4H PRN PRN PRN Reason: PAIN Nitroglycerin (Nitrostat) 0.4 mg SUBLINGUAL Q5M PRN PRN Reason: CARDIAC/CHEST PAIN Nutritional Formula (Lactose Free) (Glucerna Shake) 120 ml PO TIDCM [facility] Last Admin: 03/19/19 08:49 Dose: Not Given Ondansetron HCl (Zofran) 4 mg IV Q8H PRN PRN PRN Reason: NAUSEA/VOMITING Pantoprazole Sodium (Protonix) 40 mg PO DAILY [facility] Last Admin: 03/19/19 08:49 Dose: 40 mg Sodium Chloride () 5 - 15 ml IV UD PRN PRN Reason: SALINE FLUSH Medical Necessity - Tobacco Use Smoking Status: Never smoker Tobacco Use: Non-smoker Assessment/Plan All Active Problems (Last Reviewed 03/07/19 @ 14:04 by Napoleon Zabala MD) Chest pain (Acute) H/O coronary artery bypass surgery (Resolved 04/30/14) Dyspnea (Resolved) Incarcerated right inguinal hernia (Resolved) Preop cardiovascular exam (Resolved) 1. Acute exacerbation of Heart failure with reduced EF * BNP was 1692 on admission * currently on IV lasix 40mg bid; * monitor input output and daily weights. restrict fluid to 1500cc daily * EKG showed no acute ST changes and troponins x 3 were negative * cardiology on board * chest pain hasnt recurred since admission * 2D echo done showed EF of 15%, with septal motion consistent with IVCD, severely dilated LV and sevre global hypokinesis of LV; modrately dilated RV and left artrium also moderatley dilated. RVSP estimated to be 61mmhg * for cardiac cath tomorrow per cardiology * 2. CAD s/p CABG x 3: chest pain hasnt recurred since admission. On aspirin, statin, coreg and lisinopril. For stress test today 3. Chronic normocytic iron deficiency anemia * Hemoglobin was 8.3 on admission. Repeat this morning was 7.6 but one was repeated again it was 8.6. This has been noted to be around his baseline. * Oral iron supplementation. * Iron panel showed iron of 44, with iron saturation of 15.4. * 4. Hypertension: On Coreg, lisinopril and PRN hydralazine. 5. CKD stage IV: Creatinine is 2.48 today with his baseline around 2.4. Will monitor. 6. Hyperlipidemia: On statin 7. Anxiety and depression: On Lexapro 8. GERD: On PPI. DVT prophylaxis: Heparin Code Visit Inpatient E&M: 47448 Subs Hosp L3
--- NOTE | 2019-03-19 10:44 | CASEMGMT ---
According to the [facility], the following are in-network tertiary facilities: [facility], [facility], [facility], [facility], [facility], [facility], [facility], and . [facility] PICKER[facility] CM
[2019-03-19] MEDS: Escitalopram Oxalate 10 MG Tablet PO (11:01)
[2019-03-19] MEDS: Heparin Injection (Vial) 5,000 UNIT/ML VIAL 5000 UNIT SC ×2 (11:01→21:10)
[2019-03-19] MEDS: Ferrous Sulfate 325 MG Tablet PO (11:01)
[2019-03-19] MEDS: Carvedilol 12.5 MG Tablet PO ×2 (11:01→21:10)
[2019-03-19] MEDS: Glucerna Shake 120 ML LIQUID PO ×2 (11:04→17:01)
[2019-03-19 11:05] LABS: Bedside Glucose 123 mg/dL (70-110)
[2019-03-19] MEDS: Clopidogrel Bisulfate 300 MG Tablet PO (11:07)
--- NOTE | 2019-03-19 13:34 | CASEMGMT ---
RAHEEL CANTU assessment: Face to Face with patient for initial transition planning/care coordination assessment. RAHEEL CANTU introduced self and role at [facility], pt voices understanding and consents to assessment at this time. Pt is sitting up in bed in no distress at this time. Pt is A/Ox4 at this time and answers all questions appropriately at this time. Care providers, pharmacy, and demographics verified at this time. PCP: Saman Bagley Specialists: Sag[facility] cardio Yvonne Pharmacy: [facility] Insurance: [employer] Prescription Benefit: [employer] Living Will/HPOA: Pt states does have LW/HPOA and is aware that they are not currently on file at [facility] at this time. Pt states that his , Vicki Lerma, is HPOA. LNOK: Vicki Lerma, Living Arrangements: Pt states lives with on main level of home with 3-4 steps into home and states no concerns at home at this time. Pt states is mostly independent with ADL's. 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 Transportation: Pt states drives and states no transportation concerns at this time. DME/HHC: Pt states has a cane and walker and states no need for any further DME at this time. Pt states no hx of HHC or SNF in the past. Pt states no concerns with going home at this time. Pt states is retired. Pt states does not smoke or drink ETOH. Pt states no further questions/concerns/needs at this time. CM to follow for any further discharge planning/needs. Advised pt to ask for CM if any further questions/concerns/needs arise, voices understanding. Pt Goal: Home Plan[place] RAHEEL CANTU
[2019-03-19] MEDS: Furosemide 100 MG/10 ML Vial 60 MG IV ×2 (14:16→21:10)
[2019-03-19] MEDS: 0.9% NaCl Peripheral Flush Adult/Peds IV (14:16)
[2019-03-19 16:31] LABS: Bedside Glucose 278 mg/dL (70-110)
[2019-03-19] MEDS: Insulin Lispro 100 UNIT/ML INSULN.PEN SQ ×2 (17:01→21:10)
[2019-03-19] MEDS: Atorvastatin Calcium 80 MG Tablet PO (21:10)
[2019-03-19 21:25] LABS: Bedside Glucose 171 mg/dL (70-110)
[2019-03-19] MEDS: MELATONIN 3 MG TABLET PO (22:31)
[2019-03-20] VITALS (22 sets, daily range): BP systolic 94–137; BP diastolic 44–75; PULSE 56–75; RESP 13–20; TEMP 36.3–37.1; O2SAT 91–98
[2019-03-20 05:31] LABS: Absolute Lymphocyte Count 0.97 X10^3/ul (0.83-4.51); Absolute Neutrophil Count 3.2 X10^3/uL (2.0-7.7); Basophil# 0.02 X10^3/uL; Basophil% 0.4 % (0-1); Eosinophil# 0.06 X10^3/uL; Eosinophils% 1.2 % (0-5); Hematocrit 22.8 % (40-54); Hemoglobin 7.2 g/dl (13.0-16.5); Lymphocyte # 0.97 X10^3/ul (4.0); Lymphocyte % 19.9 % (19-41); Mean Corp Hgb Conc 31.6 g/gl (32-36); Mean Corpuscular Hgb 29.4 pg (27.0-32.0); Mean Corpuscular Volume 93.1 fL (80-94); Mean Platelet Vol. 11.2 fl (6.2-12.0); Monocyte# 0.59 X10^3/uL; Monocyte% 12.1 % (0-10); Neutrophil # 3.22 X10^3/uL (2.7-7.7); Platelet Count 201 K/mm3 (150-450); RBC Distribution Width CV 14.8 % (11.6-14.6); RBC Distribution Width SD 47.9 fl (35.1-43.9); Red Blood Count 2.45 M/mm3 (4.6-6.2); White Blood Count 4.9 K/mm3 (4.4-11.0)
[2019-03-20 05:37] LABS: International Normalized Ratio 1.3; Prothrombin Time (Protime)PT. 15.8 SECONDS (11.7-14.9)
[2019-03-20 05:38] LABS: Partial Thromboplast Time 36.8 Seconds (24.1-36.2)
[2019-03-20 05:42] LABS: POSITIVE COUNT NO; POSITIVE DIFFERENTIAL NO; POSITIVE MORPHOLOGY NO
[2019-03-20 05:54] LABS: Anion Gap 8 (5-15); BUN 35 mg/dL (7-18); BUN/Creat Ratio 13.6 RATIO (10-20); Calcium,Total 8.5 mg/dL (8.5-10.1); Chloride 109 mmol/L (98-107); Creatinine, Serum 2.57 mg/dL (0.70-1.30); EST Glomerular Filtration Rate 26 mL/min (>60); Est Glom Filt Rate - Afr Amer 32 mL/min (>60); Glucose 109 mg/dL (74-106); Potassium 3.5 mmol/L (3.5-5.1); Sodium Level 143 mmol/L (136-145)
--- NOTE | 2019-03-20 05:55 | EKG12_ITS ---
Test Reason : AM EKG Blood Pressure : / mmHG Vent. Rate : 060 BPM Atrial Rate : 060 BPM P-R Int : 156 ms QRS Dur : 158 ms QT Int : 484 ms P-R-T Axes : 031 104 -53 degrees QTc Int : 484 ms Normal sinus rhythm Right bundle branch block Abnormal ECG When compared with ECG of 19-MAR-2019 03:24, MANUAL COMPARISON REQUIRED, DATA IS UNCONFIRMED Confirmed by LOUANN CIFUENTES, GLENNA ([id number]), editorial manager CARLITA VASQUEZ ([id number]) on 03/21/2019 8:11:31 AM Referred By: Ana Moncada Confirmed By:GLENNA LEW MD
[2019-03-20] MEDS: Carvedilol 12.5 MG Tablet PO ×2 (06:19→22:16)
[2019-03-20] MEDS: Lisinopril 5 MG Tablet PO (06:19)
[2019-03-20] MEDS: Clopidogrel Bisulfate 75 MG Tablet PO (06:20)
[2019-03-20] MEDS: Aspirin 81 MG TAB.CHEW PO (06:20)
[2019-03-20 06:30] LABS: Bedside Glucose 115 mg/dL (70-110)
[2019-03-20 06:32] LABS: Bacteria 0 SEEN /hpf (None Seen); Mucous, Urine 0 SEEN /hpf (<or=2+); Red Blood Cells-Urine 0 SEEN /hpf (0-5); Squamous Epithelial Cells - UA 0 SEEN /hpf (0-5); White Blood Cells 0 SEEN /hpf (0-5)
[2019-03-20 06:33] LABS: Color, Urine Straw (Yellow); Glucose, Dipstick Normal (Normal); Ketone-Dipstick Negative (Negative); Leukocyte Esterase-Dipstick Negative /ul (Negative); Nitrite-Dipstick Negative (Negative); Occult Blood-Urine Negative /ul (Negative); Protein-Dipstick 15 mg/dl (Negative); Specific Gravity, Urine 1.005 (1.002-1.030); Urine Bilirubin Dipstick Negative (Negative); Urine Clarity Clear (Clear); Urine Urobilinogen Normal (Normal)
[2019-03-20 06:37] LABS: Hematocrit 25.5 % (40-54); Hemoglobin 8.1 g/dl (13.0-16.5)
[2019-03-20] MEDS: DiphenhydrAMINE 25 MG Capsule 50 MG PO (08:03)
[2019-03-20] MEDS: 0.9% NaCl Peripheral Flush Adult/Peds IV (08:03)
--- NOTE | 2019-03-20 09:25 | CL.D_ITS ---
Patient Name: TAM BUSTOS Study Date: 03/20/2019 Performing: Trev Stinson MD Ht: 64.96 inches 165 cm : 1945 Wt: 132.28 lbs 60 kg Age: 73 Gender: male BSA: 1.66 PROCEDURE(S) PERFORMED [id number]/COR/CABG CLINICAL PROFILE AND INDICATIONS Indications: Stable Known CAD, LV Dysfunction Heart Failure: NYHA Class: 3, Newly Diagnosed: No, Heart Failure Type: Systolic Stress/Imaging Stress/Image Study Performed: No Angina Classification Anginal Classification w/in 2 Weeks: No symptoms CAD Presentations: Other: Severe LV dysfunction, CAD, CHF. Comorbidities/Risk Factors: Hypertension Dyslipidemia Prior CHF Prior CABG CONCLUSIONS Triple vessel CAD of the LAD, LCX and RCA [place] patet FULTON to LAD Widely patent SVG to OM Occluded SVG to PDA (appears old) No LV angiogram done due to CRI. Elevated Left Ventricular End Diastolic Pressure RECOMMENDATIONS Management as per referring Assembly Inspector Start coumadin for pulmonary HTN and Severe LV dysfunction. Manual sheath removal. DESCRIPTION OF PROCEDURE The patient arrived to the procedure lab. The risks and benefits of the procedure as well as a full d escription of our services here and current unavailability of surgical backup were fully explained to the patient and/or their significant other prior to the catheterization. The Timeout was completed, verifying the correct patient and procedure. The patient's procedural site was prepped and draped in the usual fashion. Local anesthetic was given subcutaneously to right groin region with Lidocaine 2%. Using a modified Seldinger technique, arterial access was obtained via the right femoral artery, a 4 Fr sheath was inserted Left Coronary Artery selective angiography was performed in multiple views us ing a 4 Fr. JL5 catheter. Right Coronary Artery selective angiography was then performed in multiple views using a 4 Fr. 3DRC catheter. Saphenous Vein graft to the OM 1 selective angiography was perform ed in multiple views using a 4 Fr. 3DRC catheter. Left internal mammary artery graft to the DIAG 1 selective angiography was performed in multiple views using a 4 Fr. 3DRC catheter. Sapheno us Vein graft to the RPDA selective angiography was performed in multiple views using a 4 Fr. AR MOD 2 catheter, appears occluded. LV to AO pullback pressures were then recorded.The arterial sheath was pulled and manual compression applied until hemostasis is achieved. CORONARY ANGIOGRAPHY DOMINANCE: Right Dominant LEFT HEART ASSESSMENT Left Ventricular Ejection Fraction: Not assessed Elevated Left Ventricular End Diastolic Pressure LEFT MAIN: Mild luminal irregularities less than 30% LEFT ANTERIOR DESCENDING ARTERY: MID LAD: 85 % Stenosis CIRCUMFLEX ARTERY: PROX CIRC: is occluded RIGHT CORONARY ARTERY: PROX RCA: Severe calcification, 85 % Stenosis DISTAL RCA: Severe calcification, 90 % Stenosis RT PDA: Proximal - is occluded GRAFTS: FULTON graft to the LAD is patent Saphenous Vein graft to the 1st OM is patent Saphenous Vein graft to the RPDA is totally occluded COLLATERAL FLOW: Collateral flow from Left to Right Collateral flow from Right to Right COMPLICATIONS No Complications PROCEDURE MEDICATIONS Oxygen: 2 L/min via nasal cannula SUMMARY OF HEMODYNAMIC DATA Time AIR REST ECG 08:21:03 AO 98/45 (66) SA 08:59:37 LV 125/-3, 20 09:08:56 LV 120/0, 22 09:09:03 LVp 127/15, 34 09:09:09 AOp 127/46 (72) 09:09:15 Signed By Trev Stinson MD On 03/20/2019 09:24:31 Trev Stinson MD
--- NOTE | 2019-03-20 09:42 | PCM.PN.HOSP ---
Patient Problems: Active and Suspected Problems (Last Reviewed 03/07/19 @ 14:04 by Napoleon Zabala MD) Chest pain (Acute) Subjective: Patient seen and examined this morning. was by his bedside. He had no complaints. Shortness of breath had resolved. He denied any palpitations, dizziness, chest pain, diarrhea vomiting. Review of systems otherwise negative. Labs and vitals reviewed. He is for cardiac cath today. Vitals/I&O's: Vital Signs Temp Pulse Resp BP Pulse Ox 97.8 F 71 13 126/68 H 97 03/20/19 08:00 03/20/19 09:30 03/20/19 09:30 03/20/19 09:30 03/20/19 09:30 Oxygen Flow Rate (L/min) 2 Oxygen Delivery Method Nasal Cannula Weight: 132 lb 0.91 oz Body Mass Index (BMI) 22.9 Finger Stick Blood Glucose 163 Intake and Output for Last 24 Hours 03/18/19 03/19/19 03/20/19 23:59 23:59 23:59 Intake Total 1225 / 1225 240 / 240 Output Total 150 / 150 Balance 1075 / 1075 240 / 240 General: Alert, Oriented x3, Cooperative, No apparent distress HEENT: Atraumatic, PERRLA, EOMI, Normocephalic, Oral: Moist Mucosa Neck: Supple, No JVD, Negative Carotid Bruits Lungs: lungs clear to auscultation. no wheezes or crackles. Cardiovascular: Regular rate, Regular Rhythm, Normal S1, Normal S2, No murmurs Abdomen: Bowel Sounds Present, Soft, Non Tender, Non-Distended, No Hepato-splenomegaly Extremities: No clubbing, No cyanosis, No edema, Capillary Refill Less than 3 Seconds Skin: No rashes, No breakdown Musculoskeletal: No Tenderness to Palpation of Joints or Extremities Lymphatic: No Cervical, Supraclavicular, or Inguinal Adenopathy Neurological: Cranial nerves II-XII grossly intact, Neuro grossly intact, Motor Exam 5/5 strength throughout Psych/Mental Status: Normal Affect, Appropriate, Alert and oriented to time, place, person, mood and affect Microbiology Past 72 Hours 03/19/19 15:30 Stool Stool Occult Blood (SANA) - Final Laboratory Results 03/19/19 10:55: POC Glucose 123 H 03/19/19 16:24: POC Glucose 278 H 03/19/19 21:05: POC Glucose 171 H 03/19/19 21:50: Urine Color Straw, Urine Clarity Clear, Urine pH 7.0, Ur Specific [place] 1.005, Urine Protein 15 H, Urine Glucose (UA) Normal, Urine Ketones Negative, Urine Occult Blood Negative, Urine Nitrite Negative, Urine Bilirubin Negative, Urine Urobilinogen Normal, Ur Leukocyte Esterase Negative, Urine RBC 0 SEEN, Urine WBC 0 SEEN, Ur Squamous Epith Cells 0 SEEN, Urine Bacteria 0 SEEN, Urine Mucus 0 SEEN 03/20/19 05:05: WBC 4.9, RBC 2.45 L, Hgb 7.2 L, Hct 22.8 L, MCV 93.1, MCH 29.4, MCHC 31.6 L, RDW 14.8 H, RDW Differential 47.9 H, Plt Count 201, MPV 11.2, Immature Gran % (Auto) 0.400, Neut % (Auto) 66.0, Lymph % (Auto) 19.9, [place] % (Auto) 12.1 H, Eos % (Auto) 1.2, Baso % (Auto) 0.4, Absolute Neuts (auto) 3.2, Absolute Lymphs (auto) 0.97, Total Counted Not Reportable 03/20/19 05:05: PT 15.8 H, INR 1.3, APTT 36.8 H 03/20/19 05:05: Sodium 143, Potassium 3.5, Chloride 109 H, Carbon Dioxide 26.0, Anion Gap 8, BUN 35 H, Creatinine 2.57 H, Estim Creat Clear Calc 20.80, Est GFR (MDRD) Af Amer 32 L, Est GFR (MDRD) Non-Af 26 L, BUN/Creatinine Ratio 13.6, Glucose 109 H, Calcium 8.5 03/20/19 06:15: Hgb 8.1 L, Hct 25.5 L 03/20/19 06:23: POC Glucose 115 H Diagnostic Data Chest X-Ray 03/19/19 01:26 IMPRESSION: Cardiomegaly with mild central vascular congestion. No pneumonia. No pleural effusions. Electronically Signed: Alphonso Fontana MD at 1:50 EDT Tel , Service support , Current Medications Acetaminophen (Tylenol) 650 mg PO Q6H PRN PRN PRN Reason: Non-cardiac pain (mod-severe) Hydrocodone Bitart/Acetaminophen (Hope 5mg-325mg) 1 - 2 tablet PO Q6H PRN PRN PRN Reason: MOD-SEVERE PAIN (4-10/10) Al Hydroxide/Mg Hydroxide (Mylanta Ii) 15 - 30 ml PO Q4H PRN PRN PRN Reason: INDIGESTION Albuterol Sulfate (Ventolin Aerosols) 2.5 mg INHALATION Q2H PRN PRN PRN Reason: dyspnea, wheezing Aspirin (Aspirin, Baby) 81 mg PO DAILY@0800 [facility] Last Admin: 03/20/19 06:20 Dose: 81 mg Atorvastatin Calcium (Lipitor) 80 mg PO QHS [facility] Last Admin: 03/19/19 21:10 Dose: 80 mg Carvedilol (Coreg) 12.5 mg PO BID [facility] Last Admin: 03/20/19 06:19 Dose: 12.5 mg Dextrose (D50w Syringe) 0 gm IV X1 PRN; Protocol PRN Reason: Hypoglycemia Escitalopram Oxalate (Lexapro) 10 mg PO DAILY [facility] Last Admin: 03/19/19 11:01 Dose: 10 mg Furosemide (Lasix) 40 mg PO BID@1000,1800 [facility] Glucagon () 1 mg IM .X1 PRN PRN Reason: Hypoglycemia Heparin Sodium (Beef Lung) (Heparin 500 Unit/5 Ml (100/Ml)) 500 unit IV UD PRN PRN Reason: HEPARIN FLUSH Heparin Sodium (Porcine) (Heparin Na) 5,000 unit SC Q12 [facility] Last Admin: 03/19/19 21:10 Dose: 5,000 unit Hydralazine HCl (Apresoline Iv) 10 mg IV Q4H PRN PRN PRN Reason: SBP > 160 Hydralazine HCl (Apresoline) 10 mg PO TID [facility] Sodium Chloride () 1,000 mls @ 0 mls/hr IV .Q0M [facility] Insulin Human Lispro (Humalog Kwikpen (Bkc)) 0 unit SQ ACHS [facility]; Protocol Last Admin: 03/20/19 06:23 Dose: Not Given Labetalol HCl (Trandate) 5 mg IV X1 PRN PRN Reason: SBP > 160 prior to sheath pull Stop: 03/22/19 09:12 Melatonin (Melatonin) 3 mg PO QHS PRN PRN PRN Reason: INSOMNIA Last Admin: 03/19/19 22:31 Dose: 3 mg Morphine Sulfate () 1 - 2 mg IV Q4H PRN PRN PRN Reason: PAIN Nitroglycerin (Nitrostat) 0.4 mg SUBLINGUAL Q5M PRN PRN Reason: CARDIAC/CHEST PAIN Nutritional Formula (Lactose Free) (Glucerna Shake) 120 ml PO TIDCM [facility] Last Admin: 03/19/19 17:01 Dose: 120 ml Ondansetron HCl (Zofran) 4 mg IV Q8H PRN PRN PRN Reason: NAUSEA/VOMITING Pantoprazole Sodium (Protonix) 40 mg PO DAILY [facility] Last Admin: 03/19/19 08:49 Dose: 40 mg Sodium Chloride () 5 - 15 ml IV UD PRN PRN Reason: SALINE FLUSH Last Admin: 03/20/19 08:03 Dose: 10 ml Medical Necessity - Tobacco Use Smoking Status: Never smoker Tobacco Use: Non-smoker Assessment/Plan All Active Problems (Last Reviewed 03/07/19 @ 14:04 by Napoleon Zabala MD) Chest pain (Acute) H/O coronary artery bypass surgery (Resolved 04/30/14) Dyspnea (Resolved) Incarcerated right inguinal hernia (Resolved) Preop cardiovascular exam (Resolved) 1. Acute exacerbation of Heart failure with reduced EF currently on IV lasix 40mg bid; now on room air. chest pain hasnt recurred since admission 2D echo done showed EF of 15%, with septal motion consistent with IVCD, severely dilated LV and sevre global hypokinesis of LV; modrately dilated RV and left artrium also moderatley dilated. RVSP estimated to be 61mmhg cardiac cath today: mild LAD with 85% stenosis; severe calcification of the RCA and patent graft to the LAD and 1st OM; graft to RPDA totally occluded per cardiology, for medical management. TO stop plavix and start oral anticoagulation for severe LV dysfunction and pulmonary hypertension 2. CAD s/p CABG x 3: as under 1. 3. Chronic normocytic iron deficiency anemia Hb today is 8.1 on oral iron supplementation 4. Hypertension: On Coreg, lisinopril and PRN hydralazine. 5. CKD stage IV: Creatinine is 2.57 today with his baseline around 2.4. will monitor Cr as he received a bit of dye during cath; will verify quantity of dye received 6. Hyperlipidemia: On statin 7. Anxiety and depression: On Lexapro 8. GERD: On PPI. DVT prophylaxis: Heparin; will switch to PO coumadin tomorrow. Code Visit Inpatient E&M: 03054 Subs Hosp L3
--- NOTE | 2019-03-20 09:49 | PN_ITS ---
Patient Problems: Active and Suspected Problems (Last Reviewed 03/07/19 @ 14:04 by Napoleon Zabala MD) Chest pain (Acute) Subjective: Patient seen and examined this morning. was by his bedside. He had no complaints. Shortness of breath had resolved. He denied any palpitations, dizziness, chest pain, diarrhea vomiting. Review of systems otherwise negative. Labs and vitals reviewed. He is for cardiac cath today. Vitals/I&O's: Vital Signs Temp Pulse Resp BP Pulse Ox 97.8 F 71 13 126/68 H 97 03/20/19 08:00 03/20/19 09:30 03/20/19 09:30 03/20/19 09:30 03/20/19 09:30 Oxygen Flow Rate (L/min) 2 Oxygen Delivery Method Nasal Cannula Weight: 132 lb 0.91 oz Body Mass Index (BMI) 22.9 Finger Stick Blood Glucose 163 Intake and Output for Last 24 Hours 03/18/19 03/19/19 03/20/19 23:59 23:59 23:59 Intake Total 1225 / 1225 240 / 240 Output Total 150 / 150 Balance 1075 / 1075 240 / 240 General: Alert, Oriented x3, Cooperative, No apparent distress HEENT: Atraumatic, PERRLA, EOMI, Normocephalic, Oral: Moist Mucosa Neck: Supple, No JVD, Negative Carotid Bruits Lungs: lungs clear to auscultation. no wheezes or crackles. Cardiovascular: Regular rate, Regular Rhythm, Normal S1, Normal S2, No murmurs Abdomen: Bowel Sounds Present, Soft, Non Tender, Non-Distended, No Hepato- splenomegaly Extremities: No clubbing, No cyanosis, No edema, Capillary Refill Less than 3 Seconds Skin: No rashes, No breakdown Musculoskeletal: No Tenderness to Palpation of Joints or Extremities Lymphatic: No Cervical, Supraclavicular, or Inguinal Adenopathy Neurological: Cranial nerves II-XII grossly intact, Neuro grossly intact, Motor Exam 5/5 strength throughout Psych/Mental Status: Normal Affect, Appropriate, Alert and oriented to time, place, person, mood and affect Microbiology Past 72 Hours 03/19/19 15:30 Stool Stool Occult Blood (SANA) - Final Laboratory Results 03/19/19 10:55: POC Glucose 123 H 03/19/19 16:24: POC Glucose 278 H 03/19/19 21:05: POC Glucose 171 H 03/19/19 21:50: Urine Color Straw, Urine Clarity Clear, Urine pH 7.0, Ur Specific [place] 1.005, Urine Protein 15 H, Urine Glucose (UA) Normal, Urine Ketones Negative, Urine Occult Blood Negative, Urine Nitrite Negative, Urine Bilirubin Negative, Urine Urobilinogen Normal, Ur Leukocyte Esterase Negative, Urine RBC 0 SEEN, Urine WBC 0 SEEN, Ur Squamous Epith Cells 0 SEEN, Urine Bacteria 0 SEEN, Urine Mucus 0 SEEN 03/20/19 05:05: WBC 4.9, RBC 2.45 L, Hgb 7.2 L, Hct 22.8 L, MCV 93.1, MCH 29.4, MCHC 31.6 L, RDW 14.8 H, RDW Differential 47.9 H, Plt Count 201, MPV 11.2, Immature Gran % (Auto) 0.400, Neut % (Auto) 66.0, Lymph % (Auto) 19.9, [place] % (Auto) 12.1 H, Eos % (Auto) 1.2, Baso % (Auto) 0.4, Absolute Neuts (auto) 3.2, Absolute Lymphs (auto) 0.97, Total Counted Not Reportable 03/20/19 05:05: PT 15.8 H, INR 1.3, APTT 36.8 H 03/20/19 05:05: Sodium 143, Potassium 3.5, Chloride 109 H, Carbon Dioxide 26.0, Anion Gap 8, BUN 35 H, Creatinine 2.57 H, Estim Creat Clear Calc 20.80, Est GFR (MDRD) Af Amer 32 L, Est GFR (MDRD) Non-Af 26 L, BUN/Creatinine Ratio 13.6, Glucose 109 H, Calcium 8.5 03/20/19 06:15: Hgb 8.1 L, Hct 25.5 L 03/20/19 06:23: POC Glucose 115 H Diagnostic Data Chest X-Ray 03/19/19 01:26 IMPRESSION: Cardiomegaly with mild central vascular congestion. No pneumonia. No pleural effusions. Electronically Signed: Alphonso Fontana MD at 1:50 EDT Tel , Service support , Current Medications Acetaminophen (Tylenol) 650 mg PO Q6H PRN PRN PRN Reason: Non-cardiac pain (mod-severe) Hydrocodone Bitart/Acetaminophen ([place] 5mg-325mg) 1 - 2 tablet PO Q6H PRN PRN PRN Reason: MOD-SEVERE PAIN (4-10/10) Al Hydroxide/Mg Hydroxide (Mylanta Ii) 15 - 30 ml PO Q4H PRN PRN PRN Reason: INDIGESTION Albuterol Sulfate (Ventolin Aerosols) 2.5 mg INHALATION Q2H PRN PRN PRN Reason: dyspnea, wheezing Aspirin (Aspirin, Baby) 81 mg PO DAILY@0800 ON LICENSE OF [facility] Last Admin: 03/20/19 06:20 Dose: 81 mg Atorvastatin Calcium (Lipitor) 80 mg PO QHS ON LICENSE OF [facility] Last Admin: 03/19/19 21:10 Dose: 80 mg Carvedilol (Coreg) 12.5 mg PO BID ON LICENSE OF [facility] Last Admin: 03/20/19 06:19 Dose: 12.5 mg Dextrose (D50w Syringe) 0 gm IV X1 PRN; Protocol PRN Reason: Hypoglycemia Escitalopram Oxalate (Lexapro) 10 mg PO DAILY ON LICENSE OF [facility] Last Admin: 03/19/19 11:01 Dose: 10 mg Furosemide (Lasix) 40 mg PO BID@1000,1800 ON LICENSE OF [facility] Glucagon () 1 mg IM .X1 PRN PRN Reason: Hypoglycemia Heparin Sodium (Beef Lung) (Heparin 500 Unit/5 Ml (100/Ml)) 500 unit IV UD PRN PRN Reason: HEPARIN FLUSH Heparin Sodium (Porcine) (Heparin Na) 5,000 unit SC Q12 ON LICENSE OF [facility] Last Admin: 03/19/19 21:10 Dose: 5,000 unit Hydralazine HCl (Apresoline Iv) 10 mg IV Q4H PRN PRN PRN Reason: SBP > 160 Hydralazine HCl (Apresoline) 10 mg PO TID ON LICENSE OF [facility] Sodium Chloride () 1,000 mls @ 0 mls/hr IV .Q0M ON LICENSE OF [facility] Insulin Human Lispro (Humalog Kwikpen (Bkc)) 0 unit SQ ACHS ON LICENSE OF [facility]; Protocol Last Admin: 03/20/19 06:23 Dose: Not Given Labetalol HCl (Trandate) 5 mg IV X1 PRN PRN Reason: SBP > 160 prior to sheath pull Stop: 03/22/19 09:12 Melatonin (Melatonin) 3 mg PO QHS PRN PRN PRN Reason: INSOMNIA Last Admin: 03/19/19 22:31 Dose: 3 mg Morphine Sulfate () 1 - 2 mg IV Q4H PRN PRN PRN Reason: PAIN Nitroglycerin (Nitrostat) 0.4 mg SUBLINGUAL Q5M PRN PRN Reason: CARDIAC/CHEST PAIN Nutritional Formula (Lactose Free) (Glucerna Shake) 120 ml PO TIDCM ON LICENSE OF [facility] Last Admin: 03/19/19 17:01 Dose: 120 ml Ondansetron HCl (Zofran) 4 mg IV Q8H PRN PRN PRN Reason: NAUSEA/VOMITING Pantoprazole Sodium (Protonix) 40 mg PO DAILY ON LICENSE OF [facility] Last Admin: 03/19/19 08:49 Dose: 40 mg Sodium Chloride () 5 - 15 ml IV UD PRN PRN Reason: SALINE FLUSH Last Admin: 03/20/19 08:03 Dose: 10 ml Medical Necessity - Tobacco Use Smoking Status: Never smoker Tobacco Use: Non-smoker Assessment/Plan All Active Problems (Last Reviewed 03/07/19 @ 14:04 by Napoleon Zabala MD) Chest pain (Acute) H/O coronary artery bypass surgery (Resolved 04/30/14) Dyspnea (Resolved) Incarcerated right inguinal hernia (Resolved) Preop cardiovascular exam (Resolved) 1. Acute exacerbation of Heart failure with reduced EF * currently on IV lasix 40mg bid; * now on room air. * chest pain hasnt recurred since admission * 2D echo done showed EF of 15%, with septal motion consistent with IVCD, severely dilated LV and sevre global hypokinesis of LV; modrately dilated RV and left artrium also moderatley dilated. RVSP estimated to be 61mmhg * cardiac cath today: mild LAD with 85% stenosis; severe calcification of the RCA and patent graft to the LAD and 1st OM; graft to RPDA totally occluded * per cardiology, for medical management. TO stop plavix and start oral anticoagulation for severe LV dysfunction and pulmonary hypertension * 2. CAD s/p CABG x 3: as under 1. 3. Chronic normocytic iron deficiency anemia * Hb today is 8.1 * on oral iron supplementation * 4. Hypertension: On Coreg, lisinopril and PRN hydralazine. 5. CKD stage IV: Creatinine is 2.57 today with his baseline around 2.4. will monitor Cr as he received a bit of dye during cath; will verify quantity of dye received 6. Hyperlipidemia: On statin 7. Anxiety and depression: On Lexapro 8. GERD: On PPI. DVT prophylaxis: Heparin; will switch to PO coumadin tomorrow. Code Visit Inpatient E&M: 73660 Subs Hosp L3
[2019-03-20 10:51] LABS: Bedside Glucose 120 mg/dL (70-110)
--- NOTE | 2019-03-20 11:02 | CASEMGMT ---
Patient has a Healthcare POA and Healthcare LW and he is aware they are not on file at [facility]. Rachelle BARBOUR MSW
[2019-03-20] MEDS: Escitalopram Oxalate 10 MG Tablet PO (11:07)
[2019-03-20] MEDS: Pantoprazole Sodium 40 MG Tablet PO (11:07)
--- NOTE | 2019-03-20 13:40 | NURSING ---
Patient ambulated small lap around hallway. Dressing remains c/d/i, soft.
[2019-03-20] MEDS: Furosemide 40 MG Tablet PO ×2 (13:41→17:46)
[2019-03-20] MEDS: hydrALAZINE 10 MG Tablet PO ×2 (13:41→22:15)
[2019-03-20 16:56] LABS: Bedside Glucose 190 mg/dL (70-110)
[2019-03-20] MEDS: Insulin Lispro 100 UNIT/ML INSULN.PEN SQ ×2 (17:46→22:16)
[2019-03-20] MEDS: Glucerna Shake 120 ML LIQUID 60 ML PO (17:46)
[2019-03-20] MEDS: Atorvastatin Calcium 80 MG Tablet PO (22:16)
[2019-03-20] MEDS: Heparin Injection (Vial) 5,000 UNIT/ML VIAL 5000 UNIT SC (22:16)
[2019-03-20 22:51] LABS: Bedside Glucose 203 mg/dL (70-110)
[2019-03-21] VITALS (19 sets, daily range): BP systolic 96–141; BP diastolic 46–78; PULSE 57–77; RESP 13–16; TEMP 36.4–37.2; O2SAT 94–99; BMI 22.1
[2019-03-21 05:36] LABS: Absolute Lymphocyte Count 1.08 X10^3/ul (0.83-4.51); Absolute Neutrophil Count 3.3 X10^3/uL (2.0-7.7); Basophil# 0.03 X10^3/uL; Basophil% 0.6 % (0-1); Eosinophil# 0.11 X10^3/uL; Eosinophils% 2.1 % (0-5); Hematocrit 23.5 % (40-54); Hemoglobin 7.3 g/dl (13.0-16.5); Lymphocyte # 1.08 X10^3/ul (4.0); Lymphocyte % 20.7 % (19-41); Mean Corp Hgb Conc 31.1 g/gl (32-36); Mean Corpuscular Volume 93.3 fL (80-94); Mean Platelet Vol. 11.1 fl (6.2-12.0); Monocyte% 13.4 % (0-10); Platelet Count 206 K/mm3 (150-450); RBC Distribution Width CV 14.9 % (11.6-14.6); RBC Distribution Width SD 49.1 fl (35.1-43.9); Red Blood Count 2.52 M/mm3 (4.6-6.2); White Blood Count 5.2 K/mm3 (4.4-11.0)
[2019-03-21 05:42] LABS: POSITIVE COUNT NO; POSITIVE DIFFERENTIAL NO; POSITIVE MORPHOLOGY NO
[2019-03-21 05:57] LABS: Anion Gap 10 (5-15); BUN 35 mg/dL (7-18); BUN/Creat Ratio 12.8 RATIO (10-20); Calcium,Total 8.3 mg/dL (8.5-10.1); Chloride 110 mmol/L (98-107); Creatinine, Serum 2.74 mg/dL (0.70-1.30); EST Glomerular Filtration Rate 24 mL/min (>60); Est Glom Filt Rate - Afr Amer 29 mL/min (>60); Estimated Creatinine Clearance 19.51 ml/min; Glucose 87 mg/dL (74-106); Potassium 3.6 mmol/L (3.5-5.1); Sodium Level 144 mmol/L (136-145)
[2019-03-21] MEDS: hydrALAZINE 10 MG Tablet PO ×3 (06:54→21:26)
[2019-03-21 07:05] LABS: Bedside Glucose 92 mg/dL (70-110)
[2019-03-21 08:09] LABS: Hematocrit 24.3 % (40-54)
[2019-03-21] MEDS: Glucerna Shake 120 ML LIQUID 60 ML PO (08:50)
[2019-03-21] MEDS: Aspirin 81 MG TAB.CHEW PO (08:51)
[2019-03-21] MEDS: Furosemide 40 MG Tablet PO (08:51)
[2019-03-21] MEDS: Pantoprazole Sodium 40 MG Tablet PO (08:51)
[2019-03-21] MEDS: Heparin Injection (Vial) 5,000 UNIT/ML VIAL 5000 UNIT SC (08:51)
[2019-03-21] MEDS: Escitalopram Oxalate 10 MG Tablet PO (08:51)
[2019-03-21] MEDS: Carvedilol 12.5 MG Tablet PO ×2 (08:51→21:26)
--- NOTE | 2019-03-21 09:29 | PCM.PN.CARD ---
Subjectve: Patient doing better this morning, no shortness of breath, dyspnea, right groin is clean/dry/intact. Telemetry shows normal sinus rhythm with rare PACs. Patient is [place] heart classification 1 at this time. Hemoglobin has decreased slightly, but was already anemic at baseline. Objective: Vital Signs Temp Pulse Resp BP Pulse Ox 98.4 F 70 15 124/62 H 94 03/21/19 08:50 03/21/19 08:50 03/21/19 08:50 03/21/19 08:50 03/21/19 08:50 Oxygen Flow Rate (L/min) 2 Oxygen Delivery Method Room Air Weight: 132 lb 11.492 oz Body Mass Index (BMI) 22.9 Finger Stick Blood Glucose 163 Intake and Output for Last 24 Hours 03/19/19 03/20/19 03/21/19 23:59 23:59 23:59 Intake Total 1225 / 1225 910 / 910 Output Total 150 / 150 600 / 600 Balance 1075 / 1075 310 / 310 General: Awake, Alert, Oriented x 3 HEENT: PERRL, EOMI, Sclera Non Icteric Neck: Supple, Good ROM, No Lymph Node Enlargement Lungs: Clear to auscultation Cardiovascular: Regular Rhythm, Normal S1, Normal S2, No Murmurs, No Rubs, No Gallops Vascular: No Carotid Bruits, Normal Femoral Pulses, Normal Radial Pulses, Normal Dorsalis Pedal Pulse, Normal Posterior Tibial Pulses Abdomen: Bowel Sounds Present, Soft, Non Tender, No HSM, No Organomegaly Extremities: No Cyanosis, No Clubbing, No edema Neurological: No Focal Motor or Sensory Deficit 03/21/19 05:18: WBC 5.2, RBC 2.52 L, Hgb 7.3 L, Hct 23.5 L, MCV 93.3, MCH 29.0, MCHC 31.1 L, RDW 14.9 H, RDW Differential 49.1 H, Plt Count 206, MPV 11.1, Immature Gran % (Auto) 0.200, Neut % (Auto) 63.0, Lymph % (Auto) 20.7, [place] % (Auto) 13.4 H, Eos % (Auto) 2.1, Baso % (Auto) 0.6, Absolute Neuts (auto) 3.3, Total Counted Not Reportable 03/21/19 05:18: Sodium 144, Potassium 3.6, Chloride 110 H, Carbon Dioxide 24.0, Anion Gap 10, BUN 35 H, Creatinine 2.74 H, Est GFR (MDRD) Af Amer 29 L, Est GFR (MDRD) Non-Af 24 L, BUN/Creatinine Ratio 12.8, Glucose 87, Calcium 8.3 L 03/21/19 08:00: Hgb 8.0 L, Hct 24.3 L Rhythm: EKG: ECHO: Stress Test: Cardiac Cath: PCI: CT Surgery: Holter monitor: EPS: PPM: CXR: Chest CT Scan: Medical Necessity - Tobacco Use Smoking Status: Never smoker Tobacco Use: Non-smoker Assessment/Plan 1. Coronary artery disease: The patient complains of both atypical and typical chest pain symptoms, some with exertion, some with rest and with recumbency. His EKG shows no overt abnormalities, no ST elevation in his troponins have been essentially negative x2. Patient also has some memory issues, as well as chronic renal insufficiency and anemia which may all be contributing to his overall symptoms. Patient underwent a 2D echo with Doppler which showed severe global LV dysfunction, with an EF around 15%, and severe pulmonary hypertension with PA pressures in the 60s. He underwent diagnostic coronary angiogram yesterday which demonstrated occluded saphenous vein graft to the PDA, subtotal right coronary artery which was not amenable to PCI, widely patent [place] to the LAD, and widely patent saphenous vein graft to the circumflex. No LV gram was performed for dye conservation purposes. Given the patient's severe LV dysfunction, pulmonary hypertension, I recommended that we start him on Coumadin therapy in place of Xarelto or Eliquis given his chronic renal insufficiency. However, it appears that he has baseline anemia, which appears to be getting worse despite IV diuretic therapy. Have recommended he be transfused 1 unit of PRBCs to assist with oncotic pressure and oxygen carrying capacity. Would recommend discontinuation of his Plavix, but continue baby aspirin unless it is determined the patient has some sort of ulcer. PPI prophylaxis may be a good idea as well. 2. Hyperlipidemia: His LDL and HDL cholesterol are fairly well-controlled. Continue Lipitor. 3. Ischemic cardiomyopathy: The patient has significant deterioration of his LV dysfunction from 30% down to 15% on this admission. His Lasix at home was 40 mg p.o. twice daily. He appears to be euvolemic at this time, but given his chronic renal insufficiency I recommend increasing this to 60 mg p.o. twice daily. Would not recommend spironolactone given his chronic renal insufficiency. He may require periodic metolazone to assist with fluid management. 4. Discussed with Dr. Heredia. Would recommend keeping the patient 1 more day until his transfusion is been completed.
--- NOTE | 2019-03-21 10:47 | PCM.PN.HOSP ---
Patient Problems: Active and Suspected Problems (Last Reviewed 03/07/19 @ 14:04 by Napoleon Zabala MD) Chest pain (Acute) Subjective: Patient seen and examined. He had no complaints. Review of systems otherwise negative. Labs and vitals reviewed. Patient does look quite pale and hemoglobin noted to have dropped to 7.3. Will repeat hemoglobin. Vitals/I&O's: Vital Signs Temp Pulse Resp BP Pulse Ox 98.4 F 70 15 124/62 H 94 03/21/19 08:50 03/21/19 08:50 03/21/19 08:50 03/21/19 08:50 03/21/19 08:50 Oxygen Flow Rate (L/min) 2 Oxygen Delivery Method Room Air Weight: 132 lb 11.492 oz Body Mass Index (BMI) 22.9 Finger Stick Blood Glucose 163 Intake and Output for Last 24 Hours 03/19/19 03/20/19 03/21/19 23:59 23:59 23:59 Intake Total 1225 / 1225 910 / 910 Output Total 150 / 150 600 / 600 Balance 1075 / 1075 310 / 310 General: Alert, Oriented x3, Cooperative, No apparent distress HEENT: Atraumatic, PERRLA, EOMI, Normocephalic, Oral: Moist Mucosa Neck: Supple, No JVD, Negative Carotid Bruits Lungs: lungs clear to auscultation. no wheezes or crackles. Cardiovascular: Regular rate, Regular Rhythm, Normal S1, Normal S2, No murmurs Abdomen: Bowel Sounds Present, Soft, Non Tender, Non-Distended, No Hepato-splenomegaly Extremities: No clubbing, No cyanosis, No edema, Capillary Refill Less than 3 Seconds Skin: No rashes, No breakdown Musculoskeletal: No Tenderness to Palpation of Joints or Extremities Lymphatic: No Cervical, Supraclavicular, or Inguinal Adenopathy Neurological: Cranial nerves II-XII grossly intact, Neuro grossly intact, Motor Exam 5/5 strength throughout Psych/Mental Status: Normal Affect, Appropriate, Alert and oriented to time, place, person, mood and affect Microbiology Past 72 Hours 03/19/19 15:30 Stool Stool Occult Blood (SANA) - Final Laboratory Results 03/20/19 10:43: POC Glucose 120 H 03/20/19 16:50: POC Glucose 190 H 03/20/19 22:07: POC Glucose 203 H 03/21/19 05:18: WBC 5.2, RBC 2.52 L, Hgb 7.3 L, Hct 23.5 L, MCV 93.3, MCH 29.0, MCHC 31.1 L, RDW 14.9 H, RDW Differential 49.1 H, Plt Count 206, MPV 11.1, Immature Gran % (Auto) 0.200, Neut % (Auto) 63.0, Lymph % (Auto) 20.7, [place] % (Auto) 13.4 H, Eos % (Auto) 2.1, Baso % (Auto) 0.6, Absolute Neuts (auto) 3.3, Absolute Lymphs (auto) 1.08, Total Counted Not Reportable 03/21/19 05:18: Sodium 144, Potassium 3.6, Chloride 110 H, Carbon Dioxide 24.0, Anion Gap 10, BUN 35 H, Creatinine 2.74 H, Estim Creat Clear Calc 19.51, Est GFR (MDRD) Af Amer 29 L, Est GFR (MDRD) Non-Af 24 L, BUN/Creatinine Ratio 12.8, Glucose 87, Calcium 8.3 L 03/21/19 06:53: POC Glucose 92 03/21/19 08:00: Hgb 8.0 L, Hct 24.3 L 03/21/19 08:00: Blood Type Pending, Antibody Screen Pending, Crossmatch See Detail Current Medications Acetaminophen (Tylenol) 650 mg PO Q6H PRN PRN PRN Reason: Non-cardiac pain (mod-severe) Hydrocodone Bitart/Acetaminophen ([place] 5mg-325mg) 1 - 2 tablet PO Q6H PRN PRN PRN Reason: MOD-SEVERE PAIN (4-10/10) Al Hydroxide/Mg Hydroxide (Mylanta Ii) 15 - 30 ml PO Q4H PRN PRN PRN Reason: INDIGESTION Albuterol Sulfate (Ventolin Aerosols) 2.5 mg INHALATION Q2H PRN PRN PRN Reason: dyspnea, wheezing Aspirin (Aspirin, Baby) 81 mg PO DAILY@0800 [facility] Last Admin: 03/21/19 08:51 Dose: 81 mg Atorvastatin Calcium (Lipitor) 80 mg PO QHS [facility] Last Admin: 03/20/19 22:16 Dose: 80 mg Carvedilol (Coreg) 12.5 mg PO BID [facility] Last Admin: 03/21/19 08:51 Dose: 12.5 mg Dextrose (D50w Syringe) 0 gm IV X1 PRN; Protocol PRN Reason: Hypoglycemia Escitalopram Oxalate (Lexapro) 10 mg PO DAILY [facility] Last Admin: 03/21/19 08:51 Dose: 10 mg Furosemide (Lasix) 60 mg PO BID@1000,1800 [facility] Glucagon () 1 mg IM .X1 PRN PRN Reason: Hypoglycemia Heparin Sodium (Beef Lung) (Heparin 500 Unit/5 Ml (100/Ml)) 500 unit IV UD PRN PRN Reason: HEPARIN FLUSH Heparin Sodium (Porcine) (Heparin Na) 5,000 unit SC Q12 [facility] Last Admin: 03/21/19 08:51 Dose: 5,000 unit Hydralazine HCl (Apresoline Iv) 10 mg IV Q4H PRN PRN PRN Reason: SBP > 160 Hydralazine HCl (Apresoline) 10 mg PO TID [facility] Last Admin: 03/21/19 06:54 Dose: 10 mg Sodium Chloride () 1,000 mls @ 0 mls/hr IV .Q0M [facility] Insulin Human Lispro (Humalog Kwikpen (Bkc)) 0 unit SQ ACHS [facility]; Protocol Last Admin: 03/21/19 06:55 Dose: Not Given Labetalol HCl (Trandate) 5 mg IV X1 PRN PRN Reason: SBP > 160 prior to sheath pull Stop: 03/22/19 09:12 Melatonin (Melatonin) 3 mg PO QHS PRN PRN PRN Reason: INSOMNIA Last Admin: 03/19/19 22:31 Dose: 3 mg Morphine Sulfate () 1 - 2 mg IV Q4H PRN PRN PRN Reason: PAIN Nitroglycerin (Nitrostat) 0.4 mg SUBLINGUAL Q5M PRN PRN Reason: CARDIAC/CHEST PAIN Nutritional Formula (Lactose Free) (Glucerna Shake) 60 ml PO TIDCM [facility] Last Admin: 03/21/19 08:50 Dose: 60 ml Ondansetron HCl (Zofran) 4 mg IV Q8H PRN PRN PRN Reason: NAUSEA/VOMITING Pantoprazole Sodium (Protonix) 40 mg PO DAILY [facility] Last Admin: 03/21/19 08:51 Dose: 40 mg Sodium Chloride () 5 - 15 ml IV UD PRN PRN Reason: SALINE FLUSH Last Admin: 03/20/19 08:03 Dose: 10 ml Medical Necessity - Tobacco Use Smoking Status: Never smoker Tobacco Use: Non-smoker Assessment/Plan All Active Problems (Last Reviewed 03/07/19 @ 14:04 by Napoleon Zabala MD) Chest pain (Acute) H/O coronary artery bypass surgery (Resolved 04/30/14) Dyspnea (Resolved) Incarcerated right inguinal hernia (Resolved) Preop cardiovascular exam (Resolved) 1. Acute exacerbation of Heart failure with reduced EF lasix switched to PO lasix 60mg daily by cardiology. on room air. 2D echo done showed EF of 15%, with septal motion consistent with IVCD, severely dilated LV and sevre global hypokinesis of LV; modrately dilated RV and left atrium also moderatley dilated. RVSP estimated to be 61mmhg cardiac cath today: mild LAD with 85% stenosis; severe calcification of the RCA and patent graft to the LAD and 1st OM; graft to RPDA totally occluded per cardiology, for medical management. TO stop plavix and start oral anticoagulation for severe LV dysfunction and pulmonary hypertension due to anemia, will hold off on starting coumadin and get general surgery evaluation to transfuse one unit of PRBC today. 2. CAD s/p CABG x 3: as under 1. 3. Chronic normocytic iron deficiency anemia Hb today was 7.3, and on repeat was 6 on oral iron supplementation general surgery consulted; for EGD and colonoscopy tomorrow. 5. Right kidney mass: Abdominal ultrasound done on 03/15/2019 showed right superior pole hypoechoic exophytic lesion measuring 2.6cm, not documented on prior renal USG Of January 2019 this was discussed on phone with his PCP Dr karin Bagley; Abdominal USG had been ordered o/a of elevated bilirubin, and had not yet been followed up. to follow up with PCP on outpatient basis. of note, patient also has elevated which could be a solid tumor 4. Hypertension: On Coreg, lisinopril and PRN hydralazine. 5. CKD stage IV: Creatinine is 2.74 today. had some hypotension overnight which could have cause slight uptrend in Cr. lasix could also have contributed. Did not have an LV gram during cath in order to protect kidneys will contiue to monitor 6. Hyperlipidemia: On statin 7. Anxiety and depression: On Lexapro 8. GERD: On PPI. DVT prophylaxis: Heparin; plan is to switch to coumadin after EGD and colonoscopy tomorrow. Code Visit Inpatient E&M: [id number] [facility] L3
--- NOTE | 2019-03-21 11:07 | PN_ITS ---
Patient Problems: Active and Suspected Problems (Last Reviewed 03/07/19 @ 14:04 by Napoleon Zabala MD) Chest pain (Acute) Subjective: Patient seen and examined. He had no complaints. Review of systems otherwise negative. Labs and vitals reviewed. Patient does look quite pale and hemoglobin noted to have dropped to 7.3. Will repeat hemoglobin. Vitals/I&O's: Vital Signs Temp Pulse Resp BP Pulse Ox 98.4 F 70 15 124/62 H 94 03/21/19 08:50 03/21/19 08:50 03/21/19 08:50 03/21/19 08:50 03/21/19 08:50 Oxygen Flow Rate (L/min) 2 Oxygen Delivery Method Room Air Weight: 132 lb 11.492 oz Body Mass Index (BMI) 22.9 Finger Stick Blood Glucose 163 Intake and Output for Last 24 Hours 03/19/19 03/20/19 03/21/19 23:59 23:59 23:59 Intake Total 1225 / 1225 910 / 910 Output Total 150 / 150 600 / 600 Balance 1075 / 1075 310 / 310 General: Alert, Oriented x3, Cooperative, No apparent distress HEENT: Atraumatic, PERRLA, EOMI, Normocephalic, Oral: Moist Mucosa Neck: Supple, No JVD, Negative Carotid Bruits Lungs: lungs clear to auscultation. no wheezes or crackles. Cardiovascular: Regular rate, Regular Rhythm, Normal S1, Normal S2, No murmurs Abdomen: Bowel Sounds Present, Soft, Non Tender, Non-Distended, No Hepato- splenomegaly Extremities: No clubbing, No cyanosis, No edema, Capillary Refill Less than 3 Seconds Skin: No rashes, No breakdown Musculoskeletal: No Tenderness to Palpation of Joints or Extremities Lymphatic: No Cervical, Supraclavicular, or Inguinal Adenopathy Neurological: Cranial nerves II-XII grossly intact, Neuro grossly intact, Motor Exam 5/5 strength throughout Psych/Mental Status: Normal Affect, Appropriate, Alert and oriented to time, place, person, mood and affect Microbiology Past 72 Hours 03/19/19 15:30 Stool Stool Occult Blood (SANA) - Final Laboratory Results 03/20/19 10:43: POC Glucose 120 H 03/20/19 16:50: POC Glucose 190 H 03/20/19 22:07: POC Glucose 203 H 03/21/19 05:18: WBC 5.2, RBC 2.52 L, Hgb 7.3 L, Hct 23.5 L, MCV 93.3, MCH 29.0, MCHC 31.1 L, RDW 14.9 H, RDW Differential 49.1 H, Plt Count 206, MPV 11.1, Immature Gran % (Auto) 0.200, Neut % (Auto) 63.0, Lymph % (Auto) 20.7, [place] % (Auto) 13.4 H, Eos % (Auto) 2.1, Baso % (Auto) 0.6, Absolute Neuts (auto) 3.3, Absolute Lymphs (auto) 1.08, Total Counted Not Reportable 03/21/19 05:18: Sodium 144, Potassium 3.6, Chloride 110 H, Carbon Dioxide 24.0, Anion Gap 10, BUN 35 H, Creatinine 2.74 H, Estim Creat Clear Calc 19.51, Est GFR (MDRD) Af Amer 29 L, Est GFR (MDRD) Non-Af 24 L, BUN/Creatinine Ratio 12.8, Glucose 87, Calcium 8.3 L 03/21/19 06:53: POC Glucose 92 03/21/19 08:00: Hgb 8.0 L, Hct 24.3 L 03/21/19 08:00: Blood Type Pending, Antibody Screen Pending, Crossmatch See Detail Current Medications Acetaminophen (Tylenol) 650 mg PO Q6H PRN PRN PRN Reason: Non-cardiac pain (mod-severe) Hydrocodone Bitart/Acetaminophen ([place] 5mg-325mg) 1 - 2 tablet PO Q6H PRN PRN PRN Reason: MOD-SEVERE PAIN (4-10/10) Al Hydroxide/Mg Hydroxide (Mylanta Ii) 15 - 30 ml PO Q4H PRN PRN PRN Reason: INDIGESTION Albuterol Sulfate (Ventolin Aerosols) 2.5 mg INHALATION Q2H PRN PRN PRN Reason: dyspnea, wheezing Aspirin (Aspirin, Baby) 81 mg PO DAILY@0800 [facility] Last Admin: 03/21/19 08:51 Dose: 81 mg Atorvastatin Calcium (Lipitor) 80 mg PO QHS [facility] Last Admin: 03/20/19 22:16 Dose: 80 mg Carvedilol (Coreg) 12.5 mg PO BID [facility] Last Admin: 03/21/19 08:51 Dose: 12.5 mg Dextrose (D50w Syringe) 0 gm IV X1 PRN; Protocol PRN Reason: Hypoglycemia Escitalopram Oxalate (Lexapro) 10 mg PO DAILY [facility] Last Admin: 03/21/19 08:51 Dose: 10 mg Furosemide (Lasix) 60 mg PO BID@1000,1800 [facility] Glucagon () 1 mg IM .X1 PRN PRN Reason: Hypoglycemia Heparin Sodium (Beef Lung) (Heparin 500 Unit/5 Ml (100/Ml)) 500 unit IV UD PRN PRN Reason: HEPARIN FLUSH Heparin Sodium (Porcine) (Heparin Na) 5,000 unit SC Q12 [facility] Last Admin: 03/21/19 08:51 Dose: 5,000 unit Hydralazine HCl (Apresoline Iv) 10 mg IV Q4H PRN PRN PRN Reason: SBP > 160 Hydralazine HCl (Apresoline) 10 mg PO TID [facility] Last Admin: 03/21/19 06:54 Dose: 10 mg Sodium Chloride () 1,000 mls @ 0 mls/hr IV .Q0M [facility] Insulin Human Lispro (Humalog Kwikpen (Bkc)) 0 unit SQ ACHS [facility]; Protocol Last Admin: 03/21/19 06:55 Dose: Not Given Labetalol HCl (Trandate) 5 mg IV X1 PRN PRN Reason: SBP > 160 prior to sheath pull Stop: 03/22/19 09:12 Melatonin (Melatonin) 3 mg PO QHS PRN PRN PRN Reason: INSOMNIA Last Admin: 03/19/19 22:31 Dose: 3 mg Morphine Sulfate () 1 - 2 mg IV Q4H PRN PRN PRN Reason: PAIN Nitroglycerin (Nitrostat) 0.4 mg SUBLINGUAL Q5M PRN PRN Reason: CARDIAC/CHEST PAIN Nutritional Formula (Lactose Free) (Glucerna Shake) 60 ml PO TIDCM [facility] Last Admin: 03/21/19 08:50 Dose: 60 ml Ondansetron HCl (Zofran) 4 mg IV Q8H PRN PRN PRN Reason: NAUSEA/VOMITING Pantoprazole Sodium (Protonix) 40 mg PO DAILY [facility] Last Admin: 03/21/19 08:51 Dose: 40 mg Sodium Chloride () 5 - 15 ml IV UD PRN PRN Reason: SALINE FLUSH Last Admin: 03/20/19 08:03 Dose: 10 ml Medical Necessity - Tobacco Use Smoking Status: Never smoker Tobacco Use: Non-smoker Assessment/Plan All Active Problems (Last Reviewed 03/07/19 @ 14:04 by Napoleon Zabala MD) Chest pain (Acute) H/O coronary artery bypass surgery (Resolved 04/30/14) Dyspnea (Resolved) Incarcerated right inguinal hernia (Resolved) Preop cardiovascular exam (Resolved) 1. Acute exacerbation of Heart failure with reduced EF * lasix switched to PO lasix 60mg daily by cardiology. * on room air. * 2D echo done showed EF of 15%, with septal motion consistent with IVCD, severely dilated LV and sevre global hypokinesis of LV; modrately dilated RV and left atrium also moderatley dilated. RVSP estimated to be 61mmhg * cardiac cath today: mild LAD with 85% stenosis; severe calcification of the RCA and patent graft to the LAD and 1st OM; graft to RPDA totally occluded * per cardiology, for medical management. * TO stop plavix and start oral anticoagulation for severe LV dysfunction and pulmonary hypertension * due to anemia, will hold off on starting coumadin and get general surgery evaluation * to transfuse one unit of PRBC today. * 2. CAD s/p CABG x 3: as under 1. 3. Chronic normocytic iron deficiency anemia * Hb today was 7.3, and on repeat was 6 * on oral iron supplementation * general surgery consulted; for EGD and colonoscopy tomorrow. * 5. Right kidney mass: * Abdominal ultrasound done on 03/15/2019 showed right superior pole hypoechoic exophytic lesion measuring 2.6cm, not documented on prior renal USG Of January 2019 * this was discussed on phone with his PCP Dr karin Bagley; Abdominal USG had been ordered o/a of elevated bilirubin, and had not yet been followed up. * to follow up with PCP on outpatient basis. * of note, patient also has elevated which could be a solid tumor * 4. Hypertension: On Coreg, lisinopril and PRN hydralazine. 5. CKD stage IV: * Creatinine is 2.74 today. had some hypotension overnight which could have cause slight uptrend in Cr. lasix could also have contributed. * Did not have an LV gram during cath in order to protect kidneys * will contiue to monitor 6. Hyperlipidemia: On statin 7. Anxiety and depression: On Lexapro 8. GERD: On PPI. DVT prophylaxis: Heparin; plan is to switch to coumadin after EGD and colonoscopy tomorrow. Code Visit Inpatient E&M: 52522 Subs Hosp L3
[2019-03-21] MEDS: Insulin Lispro 100 UNIT/ML INSULN.PEN SQ (11:15)
[2019-03-21 11:30] LABS: Bedside Glucose 216 mg/dL (70-110)
--- NOTE | 2019-03-21 13:09 | PCM.CONS.GEN ---
Reason for Consult Date of Consultation: 03/21/19 History of Present Illness: The patient is a 73 year old M consult for anemia. Patient underwent cardiac cath yesterday which showed severe 3 vessel disease along with occluded previous graft. Patient's ejection fraction is currently 15% from 30%. Dr. Stinson wanted to start the patient on Coumadin however patient came in his hemoglobin has been between 8.7 and 7.3. Patient denies any blood in his stools currently or in the past. is also present for this conversation as may have some short-term memory issues. Patient has never had a colonoscopy in the past per his . Patient denies any abdominal pain or heartburn or reflux however he is on Protonix 40 mg p.o. daily as well as states that he did have some reflux symptoms but does not think he has any on the medication. Patient's fecal occult blood test was negative here. 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) CABG x 3: FULTON-distal D1, SVG-OM, SVG-Distal PDA 04/30/2014 Atherosclerotic heart disease of [place] coronary artery without angina pectoris (Chronic) CABG x 3: FULTON-distal D1, SVG-OM, SVG-Distal PDA 04/30/2014 HLD (hyperlipidemia) (Chronic) Medical History: Medical History (Last Reviewed 03/07/19 @ 14:04 by Napoleon Zabala MD) Essential (primary) hypertension (Chronic) I10 Chronic systolic (congestive) heart failure (Chronic) I50.22 Ischemic cardiomyopathy (Chronic) I25.5 Claudication of both lower extremities (Chronic) I73.9 Atherosclerosis of coronary artery bypass graft without angina pectoris (Chronic) I25.810 CABG x 3: FULTON-distal D1, SVG-OM, SVG-Distal PDA 04/30/2014 Atherosclerotic heart disease of [place] coronary artery without angina pectoris (Chronic) I25.10 CABG x 3: FULTON-distal D1, SVG-OM, SVG-Distal PDA 04/30/2014 HLD (hyperlipidemia) (Chronic) E78.5 Bilateral pleural effusion J90 Type 2 diabetes mellitus E11.9 Dyspnea (Resolved) R06.00 Incarcerated right inguinal hernia (Resolved) K40.30 Preop cardiovascular exam (Resolved) Z01.810 Allergies No Known Allergies Allergy (Verified 03/07/19 13:26) Home Medications: Ambulatory Orders Medication Instructions Recorded Glimepiride 4 mg PO DAILY 04/26/14 Aspirin [Aspirin, Baby] 81 mg PO DAILY@0800 09/29/14 escitalopram 10 mg tablet 10 mg PO QDAY 30 Days #30 tab 02/04/18 pantoprazole 40 mg tablet,delayed 40 mg PO QDAY 30 Days #30 tab 02/07/18 release atorvastatin 80 mg tablet 80 mg PO QHS #90 tab 04/08/18 furosemide 40 mg tablet 40 mg PO DAILY #90 tab 09/03/18 carvedilol 12.5 mg tablet 12.5 mg PO BID #180 tab 02/05/19 lisinopril 5 mg tablet 5 mg PO QDAY #90 tab 02/10/19 metformin 850 mg tablet 850 mg PO DAILY 30 Days #30 tab 03/07/19 Ferrous Sulfate [Iron] 325 mg PO DAILY 03/19/19 Surgical History: Surgical History (Last Updated 03/20/19 @ 16:59 by Radha Denney) H/O coronary artery bypass surgery (Resolved) Onset Date: 04/30/14 Z95.1 CABG x 3: FULTON-distal D1, SVG-OM, SVG-Distal PDA 04/30/2014 History of left heart catheterization (LHC) Onset Date: 03/20/19 Z98.890 Per [facility] 03/20/2019: Triple vessel CAD of the LAD, LCX and RCA; [place] patent FULTON to LAD; Widely patent SVG to OM; Occluded SVG to PDA (appears old); No LV angiogram done due to CRI. Elevated Left Ventricular End Diastolic Pressure Left heart cath March 2012; LHC W/ IABP INsertion 04/27/14 History of thoracentesis Z98.890 History of right inguinal hernia repair Onset Date: 03/2018 Z98.890, Z87.19 Surgical History: coronary bypass surgery, - - CABG x 3, R inguinal hernia repair. Psychiatric History: Anxiety, Depression Lives: Spouse/ Significant Other Smoking Status: Never smoker Tobacco Use: Non-smoker Alcohol: None Drugs: None - *Family History Paternal Family History: Family History (Last Reviewed 03/07/19 @ 14:04 by Napoleon Zabala MD) Brother CAD (coronary artery disease) History Items: - - Patient notes father with a history of polio with debility secondary to this but otherwise had been healthy and in his 90s. Maternal Family History: Family History (Last Reviewed 03/07/19 @ 14:04 by Napoleon Zabala MD) Brother CAD (coronary artery disease) History Items: Heart Disease Sibling Family History: Family History (Last Reviewed 03/07/19 @ 14:04 by Napoleon Zabala MD) Brother CAD (coronary artery disease) History Items: Heart Disease Review of Systems Constitutional: Denies: Anorexia, Fever HEENT: Denies: Difficulty Swallowing Cardiovascular: Denies: Chest Pain Respiratory: Denies: Cough Gastrointestinal: Denies: Abdominal Pain, Nausea, Vomiting Genitourinary: Denies: Dysuria Skin: Denies: Jaundice Neurological: Denies: Blurred vision Psychiatric: Denies: Anxiety, Depression Hematologic/ Lymphatic: Reports: Anemia Patient Problems: Active and Suspected Problems (Last Reviewed 03/07/19 @ 14:04 by Napoleon Zabala MD) Chest pain (Acute) - Physical Exam General: Alert, Oriented x3, Cooperative, No apparent distress HEENT: Atraumatic Lungs: Normal air movement Cardiovascular: Regular rate Abdomen: Soft, Non Tender - No peritoneal signs, Non-Distended Extremities: No clubbing, No cyanosis, No edema, - - Right groin dressed, clean dry and intact Neurological: Cranial nerves II-XII grossly intact Psych/Mental Status: Normal Affect Vital Signs Temp Pulse Resp BP Pulse Ox 97.5 F L 62 15 108/53 L 97 03/21/19 13:05 03/21/19 13:05 03/21/19 13:05 03/21/19 13:03/21/19 13:05 Oxygen Flow Rate (L/min) 2 Oxygen Delivery Method Room Air Weight: 132 lb 11.492 oz Body Mass Index (BMI) 22.9 Finger Stick Blood Glucose 163 Intake and Output for Last 24 Hours 06/03/0203/20/19 03/21/19 23:59 23:59 23:59 Intake Total 1225 / 1225 910 / 910 240 / 240 Output Total 150 / 150 600 / 600 Balance 1075 / 1075 310 / 310 240 / 240 Microbiology Past 72 Hours 03/19/19 15:30 Stool Occult Blood (SANA) - Final Stool Laboratory Tests Past 24 Hrs 03/21/19 03/21/19 03/21/19 05:18 05:18 08:00 WBC 5.2 RBC 2.52 L Hgb 7.3 L 8.0 L Hct 23.5 L 24.3 L MCV 93.3 MCH 29.0 MCHC 31.1 L RDW 14.9 H RDW Differential 49.1 H Plt Count 206 MPV 11.1 Immature Gran % (Auto) 0.200 Neut % (Auto) 63.0 Lymph % (Auto) 20.7 [place] % (Auto) 13.4 H Eos % (Auto) 2.1 Baso % (Auto) 0.6 Absolute Neuts (auto) 3.3 Absolute Lymphs (auto) 1.08 Total Counted Not Reportable Sodium 144 Potassium 3.6 Chloride 110 H Carbon Dioxide 24.0 Anion Gap 10 BUN 35 H Creatinine 2.74 H Estim Creat Clear Calc 19.51 Est GFR (MDRD) Af Amer 29 L Est GFR (MDRD) Non-Af 24 L BUN/Creatinine Ratio 12.8 Glucose 87 Calcium 8.3 L Blood Type Antibody Screen Crossmatch 03/21/19 08:00 WBC RBC Hgb Hct MCV MCH MCHC RDW RDW Differential Plt Count MPV Immature Gran % (Auto) Neut % (Auto) Lymph % (Auto) [place] % (Auto) Eos % (Auto) Baso % (Auto) Absolute Neuts (auto) Absolute Lymphs (auto) Total Counted Sodium Potassium Chloride Carbon Dioxide Anion Gap BUN Creatinine Estim Creat Clear Calc Est GFR (MDRD) Af Amer Est GFR (MDRD) Non-Af BUN/Creatinine Ratio Glucose Calcium Blood Type A POSITIVE Antibody Screen NEGATIVE Crossmatch See Detail POC Glucose 03/21/19 03/21/19 03/20/19 11:12 06:53 22:07 POC Glucose 216 H 92 203 H 03/20/19 16:50 POC Glucose 190 H Assessment/Plan All Active Problems (Last Reviewed 05/24/19 @ 14:04 by Napoleon Zabala MD) Chest pain (Acute) H/O coronary artery bypass surgery (Resolved 04/30/14) Dyspnea (Resolved) Incarcerated right inguinal hernia (Resolved) Preop cardiovascular exam (Resolved) 73-year-old male with anemia, severe three-vessel cardiac disease, congestive heart failure, ejection fraction 15%. I have discussed the above with the patient and his . Did discuss with the patient and his that due to patient's severe cardiac disease he would be at high risk for anesthesia and there could be a possibility of not being able to proceed with endoscopy or possibly even need to stop the endoscopy once we have started. and the patient were agreeable for a full code during the procedure. I have offered the patient EGD and colonoscopy for evaluation plan for 8 AM tomorrow. I have explained the risks/benefits of the procedure and described the procedure. I have discussed the risks with the patient, including but not limited to: infection, bleeding, perforation of the GI tract requiring emergency surgery, inability to complete the procedure, injury to any internal organs, complications of anesthesia, etc. - the patient understands and agrees to proceed. I have answered all the patient's questions to the patient's satisfaction and the patient has no further questions. Jody was ordered for a colon prep 4 L x 1 Ana María Kruse M.D. Pager: [phone] [facility] [address] [place] [address], [facility], [address] [place] [address] Office: [phone] Code Visit Inpatient E&M: 60174 Init Hosp L2
--- NOTE | 2019-03-21 13:13 | CON.PCM_ITS ---
Reason for Consult Date of Consultation: 03/21/19 History of Present Illness: The patient is a 73 year old M consult for anemia. Patient underwent cardiac cath yesterday which showed severe 3 vessel disease along with occluded previous graft. Patient's ejection fraction is currently 15% from 30%. Dr. Stinson wanted to start the patient on Coumadin however patient came in his hemoglobin has been between 8.7 and 7.3. Patient denies any blood in his stools currently or in the past. is also present for this conversation as may have some short-term memory issues. Patient has never had a colonoscopy in the past per his . Patient denies any abdominal pain or heartburn or reflux however he is on Protonix 40 mg p.o. daily as well as states that he did have some reflux symptoms but does not think he has any on the medication. Patient's fecal occult blood test was negative here. 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) CABG x 3: FULTON-distal D1, SVG-OM, SVG-Distal PDA 04/30/2014 Atherosclerotic heart disease of [place] coronary artery without angina pectoris (Chronic) CABG x 3: FULTON-distal D1, SVG-OM, SVG-Distal PDA 04/30/2014 HLD (hyperlipidemia) (Chronic) Medical History: Medical History (Last Reviewed 03/07/19 @ 14:04 by Napoleon Zabala MD) Essential (primary) hypertension (Chronic) I10 Chronic systolic (congestive) heart failure (Chronic) I50.22 Ischemic cardiomyopathy (Chronic) I25.5 Claudication of both lower extremities (Chronic) I73.9 Atherosclerosis of coronary artery bypass graft without angina pectoris (Chronic) I25.810 CABG x 3: FULTON-distal D1, SVG-OM, SVG-Distal PDA 04/30/2014 Atherosclerotic heart disease of [place] coronary artery without angina pectoris (Chronic) I25.10 CABG x 3: FULTON-distal D1, SVG-OM, SVG-Distal PDA 04/30/2014 HLD (hyperlipidemia) (Chronic) E78.5 Bilateral pleural effusion J90 Type 2 diabetes mellitus E11.9 Dyspnea (Resolved) R06.00 Incarcerated right inguinal hernia (Resolved) K40.30 Preop cardiovascular exam (Resolved) Z01.810 Allergies No Known Allergies Allergy (Verified 03/07/19 13:26) Home Medications: Ambulatory Orders Medication Instructions Recorded Glimepiride 4 mg PO DAILY 04/26/14 Aspirin [Aspirin, Baby] 81 mg PO DAILY@0800 09/29/14 escitalopram 10 mg tablet 10 mg PO QDAY 30 Days #30 tab 02/04/18 pantoprazole 40 mg tablet,delayed 40 mg PO QDAY 30 Days #30 tab 02/07/18 release atorvastatin 80 mg tablet 80 mg PO QHS #90 tab 04/08/18 furosemide 40 mg tablet 40 mg PO DAILY #90 tab 09/03/18 carvedilol 12.5 mg tablet 12.5 mg PO BID #180 tab 02/05/19 lisinopril 5 mg tablet 5 mg PO QDAY #90 tab 02/10/19 metformin 850 mg tablet 850 mg PO DAILY 30 Days #30 tab 03/07/19 Ferrous Sulfate [Iron] 325 mg PO DAILY 03/19/19 Surgical History: Surgical History (Last Updated 03/20/19 @ 16:59 by Radha Denney) H/O coronary artery bypass surgery (Resolved) Onset Date: 04/30/14 Z95.1 CABG x 3: FULTON-distal D1, SVG-OM, SVG-Distal PDA 04/30/2014 History of left heart catheterization (LHC) Onset Date: 03/20/19 Z98.890 Per [facility] 03/20/2019: Triple vessel CAD of the LAD, LCX and RCA; [place] patent FULTON to LAD; Widely patent SVG to OM; Occluded SVG to PDA (appears old); No LV angiogram done due to CRI. Elevated Left Ventricular End Diastolic Pressure Left heart cath March 2012; LHC W/ IABP INsertion 04/27/14 History of thoracentesis Z98.890 History of right inguinal hernia repair Onset Date: 03/2018 Z98.890, Z87.19 Surgical History: coronary bypass surgery, - - CABG x 3, R inguinal hernia repair. Psychiatric History: Anxiety, Depression Lives: Spouse/ Significant Other Smoking Status: Never smoker Tobacco Use: Non-smoker Alcohol: None Drugs: None - *Family History Paternal Family History: Family History (Last Reviewed 03/07/19 @ 14:04 by Napoleon Zabala MD) Brother CAD (coronary artery disease) History Items: - - Patient notes father with a history of polio with debility secondary to this but otherwise had been healthy and in his 90s. Maternal Family History: Family History (Last Reviewed 03/07/19 @ 14:04 by Napoleon Zabala MD) Brother CAD (coronary artery disease) History Items: Heart Disease Sibling Family History: Family History (Last Reviewed 03/07/19 @ 14:04 by Napoleon Zabala MD) Brother CAD (coronary artery disease) History Items: Heart Disease Review of Systems Constitutional: Denies: Anorexia, Fever HEENT: Denies: Difficulty Swallowing Cardiovascular: Denies: Chest Pain Respiratory: Denies: Cough Gastrointestinal: Denies: Abdominal Pain, Nausea, Vomiting Genitourinary: Denies: Dysuria Skin: Denies: Jaundice Neurological: Denies: Blurred vision Psychiatric: Denies: Anxiety, Depression Hematologic/ Lymphatic: Reports: Anemia Patient Problems: Active and Suspected Problems (Last Reviewed 03/07/19 @ 14:04 by Napoleon Zabala MD) Chest pain (Acute) - Physical Exam General: Alert, Oriented x3, Cooperative, No apparent distress HEENT: Atraumatic Lungs: Normal air movement Cardiovascular: Regular rate Abdomen: Soft, Non Tender - No peritoneal signs, Non-Distended Extremities: No clubbing, No cyanosis, No edema, - - Right groin dressed, clean dry and intact Neurological: Cranial nerves II-XII grossly intact Psych/Mental Status: Normal Affect Vital Signs Temp Pulse Resp BP Pulse Ox 97.5 F L 62 15 108/53 L 97 03/21/19 13:05 03/21/19 13:05 03/21/19 13:05 03/21/19 13:03/21/19 13:05 Oxygen Flow Rate (L/min) 2 Oxygen Delivery Method Room Air Weight: 132 lb 11.492 oz Body Mass Index (BMI) 22.9 Finger Stick Blood Glucose 163 Intake and Output for Last 24 Hours 06/03/0203/20/19 03/21/19 23:59 23:59 23:59 Intake Total 1225 / 1225 910 / 910 240 / 240 Output Total 150 / 150 600 / 600 Balance 1075 / 1075 310 / 310 240 / 240 Microbiology Past 72 Hours 03/19/19 15:30 Stool Occult Blood (SANA) - Final Stool Laboratory Tests Past 24 Hrs 03/21/19 03/21/19 03/21/19 05:18 05:18 08:00 WBC 5.2 RBC 2.52 L Hgb 7.3 L 8.0 L Hct 23.5 L 24.3 L MCV 93.3 MCH 29.0 MCHC 31.1 L RDW 14.9 H RDW Differential 49.1 H Plt Count 206 MPV 11.1 Immature Gran % (Auto) 0.200 Neut % (Auto) 63.0 Lymph % (Auto) 20.7 [place] % (Auto) 13.4 H Eos % (Auto) 2.1 Baso % (Auto) 0.6 Absolute Neuts (auto) 3.3 Absolute Lymphs (auto) 1.08 Total Counted Not Reportable Sodium 144 Potassium 3.6 Chloride 110 H Carbon Dioxide 24.0 Anion Gap 10 BUN 35 H Creatinine 2.74 H Estim Creat Clear Calc 19.51 Est GFR (MDRD) Af Amer 29 L Est GFR (MDRD) Non-Af 24 L BUN/Creatinine Ratio 12.8 Glucose 87 Calcium 8.3 L Blood Type Antibody Screen Crossmatch 03/21/19 08:00 WBC RBC Hgb Hct MCV MCH MCHC RDW RDW Differential Plt Count MPV Immature Gran % (Auto) Neut % (Auto) Lymph % (Auto) [place] % (Auto) Eos % (Auto) Baso % (Auto) Absolute Neuts (auto) Absolute Lymphs (auto) Total Counted Sodium Potassium Chloride Carbon Dioxide Anion Gap BUN Creatinine Estim Creat Clear Calc Est GFR (MDRD) Af Amer Est GFR (MDRD) Non-Af BUN/Creatinine Ratio Glucose Calcium Blood Type A POSITIVE Antibody Screen NEGATIVE Crossmatch See Detail POC Glucose 03/21/19 03/21/19 03/20/19 11:12 06:53 22:07 POC Glucose 216 H 92 203 H 03/20/19 16:50 POC Glucose 190 H Assessment/Plan All Active Problems (Last Reviewed 05/24/19 @ 14:04 by Napoleon Zabala MD) Chest pain (Acute) H/O coronary artery bypass surgery (Resolved 04/30/14) Dyspnea (Resolved) Incarcerated right inguinal hernia (Resolved) Preop cardiovascular exam (Resolved) 73-year-old male with anemia, severe three-vessel cardiac disease, congestive heart failure, ejection fraction 15%. I have discussed the above with the patient and his . Did discuss with the patient and his that due to patient's severe cardiac disease he would be at high risk for anesthesia and there could be a possibility of not being able to proceed with endoscopy or possibly even need to stop the endoscopy once we have started. and the patient were agreeable for a full code during the procedure. I have offered the patient EGD and colonoscopy for evaluation plan for 8 AM tomorrow. I have explained the risks/benefits of the procedure and described the procedure. I have discussed the risks with the patient, including but not limited to: infection, bleeding, perforation of the GI tract requiring emergency surgery, inability to complete the procedure, injury to any internal organs, complications of anesthesia, etc. - the patient understands and agrees to proceed. I have answered all the patient's questions to the patient's satisfaction and the patient has no further questions. Jody was ordered for a colon prep 4 L x 1 Ana María Kruse M.D. Pager: [phone] [facility] [address] [place] [address], [facility], [address] [place] [address] Office: [phone] Code Visit Inpatient E&M: 54618 Init Hosp L2
[2019-03-21] MEDS: 0.9% NaCl Peripheral Flush Adult/Peds IV (13:16)
[2019-03-21] MEDS: Electrolyte Solution/Peg's 4000 ML PO (14:28)
[2019-03-21] MEDS: Furosemide 20 MG Tablet 60 MG PO (16:30)
[2019-03-21 17:05] LABS: Bedside Glucose 194 mg/dL (70-110)
[2019-03-21] MEDS: Atorvastatin Calcium 80 MG Tablet PO (21:26)
[2019-03-21 21:36] LABS: Bedside Glucose 147 mg/dL (70-110)
[2019-03-22] VITALS (12 sets, daily range): BP systolic 118–137; BP diastolic 56–66; PULSE 59–78; RESP 14–18; TEMP 36.4–37.1; O2SAT 90–98
--- NOTE | 2019-03-22 | COLBX_PTH ---
PATIENT: TAM BUSTOS LOC: [facility] U#:[id number] AGE/SX: 73/M ROOM: [facility] RE03/19/[address]: Dr. Judith Heredia MD : [id number] BED: 1 DIS: 03/22/2019 SPEC #: [id number] RECD: 03/22/19 10:05 STATUS: TYRONE RECortez #: [id number] BRITTANY: 03/22/19 00:[address]: Ana María Kruse DEPT: SURGICAL PATHOLOGY RECD BY: Wilfredo Muñoz ENTERED: 03/24/19 08:48 SP TYPE: COLON BX OTHR DR: MD Dr. Saman Shore MD Dr. Nana Yaa Koram, MD Dr. Paul Moodispaw, MD Dr. Tamera Robotham, MD Tissues: Rectum, NOS Procedures: Surgery Specimen Level IV Comments: @ Ordering doctor for SUIV edited from to @ by KAY at 03/24/19 1448 @ Submitting doctor edited from to @ by RGOOD at 03/24/19 1448 HEADER OPERATION: Colonoscopy, EGD ([facility]) PRE-OP DIAGNOSIS: Anemia TISSUE SUBMITTED: Rectal polyp MICROSCOPIC DIAGNOSIS Rectal polyp, biopsy: Fragments of tubular adenoma. AM:prudence 03/25/19 MICROSCOPIC DESCRIPTION Slides are reviewed. GROSS DESCRIPTION Received in fixative is one container labeled with the patient's name and designated rectal polyp biopsy. The specimen consists of multiple irregular fragments of light nathan soft tissue that in aggregate measure 1.5 x 0.3 x 0.1 cm. The specimen is totally submitted in one cassette. / SJ:prudence 03/24/19 TC:5 CPT: 45858
--- NOTE | 2019-03-22 05:55 | EKG12_ITS ---
Test Reason : Blood Pressure : / mmHG Vent. Rate : 064 BPM Atrial Rate : 064 BPM P-R Int : 162 ms QRS Dur : 154 ms QT Int : 464 ms P-R-T Axes : 050 109 -18 degrees QTc Int : 478 ms Normal sinus rhythm Right bundle branch block Abnormal ECG Confirmed by SEBASTIAN CIFUENTES, AYANNA ([id number]), editor newspaper NATALY NATHAN ([id number]) on 03/26/2019 11:36:39 AM Referred By: Ana Moncada Confirmed By:AYANNA CORTES MD
--- NOTE | 2019-03-22 06:47 | NURSING ---
This RN spoke with RN from Endo with an update of patient throughout the night.
[2019-03-22 07:05] LABS: Bedside Glucose 109 mg/dL (70-110)
[2019-03-22 07:31] LABS: Absolute Lymphocyte Count 0.74 X10^3/ul (0.83-4.51); Absolute Neutrophil Count 3.7 X10^3/uL (2.0-7.7); Basophil# 0.02 X10^3/uL; Basophil% 0.4 % (0-1); Eosinophil# 0.11 X10^3/uL; Eosinophils% 2.1 % (0-5); Hematocrit 27.4 % (40-54); Hemoglobin 8.9 g/dl (13.0-16.5); Lymphocyte # 0.74 X10^3/ul (4.0); Lymphocyte % 14.2 % (19-41); Mean Corp Hgb Conc 32.5 g/gl (32-36); Mean Corpuscular Hgb 29.5 pg (27.0-32.0); Mean Corpuscular Volume 90.7 fL (80-94); Mean Platelet Vol. 10.7 fl (6.2-12.0); Monocyte# 0.67 X10^3/uL; Monocyte% 12.9 % (0-10); Neutrophil # 3.65 X10^3/uL (2.7-7.7); Neutrophil % 70.2 % (47-70); Platelet Count 200 K/mm3 (150-450); RBC Distribution Width CV 15.8 % (11.6-14.6); Red Blood Count 3.02 M/mm3 (4.6-6.2); White Blood Count 5.2 K/mm3 (4.4-11.0)
--- NOTE | 2019-03-22 07:31 | PN.SURG_ITS ---
Patient Problems: Active and Suspected Problems (Last Reviewed 03/07/19 @ 14:04 by Napoleon Zabala MD) Chest pain (Acute) Subjective: Patient states prep went well and bowel movements are clear. Patient denies any chest or abdominal pain labs are pending - Physical Exam General: Alert, Oriented x3, Cooperative, No apparent distress HEENT: Atraumatic Lungs: Normal air movement Cardiovascular: Regular rate Abdomen: Soft, Non Tender, Non-Distended Extremities: No clubbing, No cyanosis, No edema Neurological: Cranial nerves II-XII grossly intact Psych/Mental Status: Normal Affect Vital Signs Temp Pulse Resp BP Pulse Ox 98.7 F 66 15 137/61 H 95 03/22/19 06:51 03/22/19 07:00 03/22/19 06:51 03/22/19 06:51 03/22/19 06:51 Oxygen Flow Rate (L/min) 2 Oxygen Delivery Method Room Air Weight: 133 lb 6.075 oz Body Mass Index (BMI) 22.1 Finger Stick Blood Glucose 163 Intake and Output for Last 24 Hours 03/20/19 03/21/19 03/22/19 23:59 23:59 23:59 Intake Total 910 / 910 4745 / 4745 Output Total 600 / 600 Balance 310 / 310 4745 / 4745 Microbiology Past 72 Hours 03/19/19 15:30 Stool Occult Blood (SANA) - Final Stool Laboratory Tests Past 24 Hrs 03/21/19 03/21/19 03/22/19 08:00 08:00 07:02 WBC Pending RBC Pending Hgb 8.0 L Pending Hct 24.3 L Pending MCV Pending MCH Pending MCHC Pending RDW Pending RDW Differential Pending Plt Count Pending Neut % (Auto) Pending Absolute Neuts (auto) Pending Total Counted Pending PT INR APTT Sodium Potassium Chloride Carbon Dioxide Anion Gap BUN Creatinine Est GFR (MDRD) Af Amer Est GFR (MDRD) Non-Af BUN/Creatinine Ratio Glucose Calcium Magnesium Blood Type A POSITIVE Antibody Screen NEGATIVE Crossmatch See Detail 03/22/19 03/22/19 07:02 07:02 WBC RBC Hgb Hct MCV MCH MCHC RDW RDW Differential Plt Count Neut % (Auto) Absolute Neuts (auto) Total Counted PT Pending INR Pending APTT Pending Sodium Pending Potassium Pending Chloride Pending Carbon Dioxide Pending Anion Gap Pending BUN Pending Creatinine Pending Est GFR (MDRD) Af Amer Pending Est GFR (MDRD) Non-Af Pending BUN/Creatinine Ratio Pending Glucose Pending Calcium Pending Magnesium Pending Blood Type Antibody Screen Crossmatch POC Glucose 03/22/19 03/21/19 03/21/19 06:54 21:23 16:29 POC Glucose 109 147 H 194 H 03/21/19 11:12 POC Glucose 216 H Medical Necessity - Tobacco Use Smoking Status: Never smoker Tobacco Use: Non-smoker Assessment/Plan All Active Problems (Last Reviewed 03/07/19 @ 14:04 by Napoleon Zabala MD) Chest pain (Acute) H/O coronary artery bypass surgery (Resolved 04/30/14) Dyspnea (Resolved) Incarcerated right inguinal hernia (Resolved) Preop cardiovascular exam (Resolved) 73-year-old male with anemia, severe three-vessel cardiac disease, congestive heart failure, ejection fraction 15%. Reviewed the procedure with the patient and his . Also discussed that due to his Plavix loading dose on 03/19/19 and Plavix on 03/20/19 would not be planning to do any larger biopsies at this time. Also discussed with patient and his that if he would need further surgery if the mass were to be found I would recommend surgery be done at tertiary care center due to his cardiac disease/function. Patient is had no further questions this morning. Ana María Kruse M.D. Pager: [phone] [facility] [address] [place] [address], [facility], [address] [place] [address] Office: [phone]
[2019-03-22 07:32] LABS: POSITIVE COUNT NO; POSITIVE DIFFERENTIAL NO; POSITIVE MORPHOLOGY NO
[2019-03-22 07:39] LABS: BUN 31 mg/dL (7-18); BUN/Creat Ratio 11.9 RATIO (10-20); Calcium,Total 8.7 mg/dL (8.5-10.1); Chloride 111 mmol/L (98-107); EST Glomerular Filtration Rate 26 mL/min (>60); Est Glom Filt Rate - Afr Amer 31 mL/min (>60); Estimated Creatinine Clearance 20.56 ml/min; Glucose 108 mg/dL (74-106); International Normalized Ratio 1.2; Partial Thromboplast Time 33.2 Seconds (24.1-36.2); Potassium 3.5 mmol/L (3.5-5.1); Prothrombin Time (Protime)PT. 14.8 SECONDS (11.7-14.9); Sodium Level 142 mmol/L (136-145)
[2019-03-22 07:40] LABS: Anion Gap 7 (5-15)
--- NOTE | 2019-03-22 08:54 | OP.ENDO_ITS ---
03/22/2019 Saman Bagley [address] [place] [address] Re : Upper GI endoscopy procedure for Bakari Lerma Dear Dr. Bagley This procedure was performed on Friday, March 22, 2019. My impressions and recommendations are as follows: Impressions : - No gross lesions in esophagus. - No gross lesions in the stomach. - Normal examined duodenum. - No specimens collected. Recommendations : - [facility]. - Resume previous diet. - Continue present medications. My findings are described in the full procedure note, which is enclosed. If I can be of further assistance, please feel free to contact me at Doctor phone number(s): , Work: . Sincerely, MD Ana María Solares MD 03/22/2019 8:54:03 AM This report has been signed electronically.
--- NOTE | 2019-03-22 08:59 | OP.ENDO_ITS ---
03/22/2019 Saman Bagley [address] [place] [address] Re : Colonoscopy procedure for Bakari Lerma Dear Dr. Bagley This procedure was performed on Friday, March 22, 2019. My impressions and recommendations are as follows: Impressions : - Hemorrhoids found on perianal exam. - Diverticulosis in the entire examined colon. - The distal rectum and anal verge are normal on retroflexion view. - One less than 5 mm polyp in the rectum, removed with a cold biopsy forceps. Resected and retrieved. Recommendations : - Await pathology results. - Return patient to [facility] for [facility] care. - Cardiac diet. - Continue present medications. - No repeat colonoscopy for screening due to current age (66 years or older) and overall health. My findings are described in the full procedure note, which is enclosed. If I can be of further assistance, please feel free to contact me at Doctor phone number(s): , Work: . Sincerely, MD Ana María Solares MD 03/22/2019 8:59:10 AM This report has been signed electronically.
[2019-03-22] MEDS: hydrALAZINE 10 MG Tablet PO (09:23)
[2019-03-22] MEDS: Aspirin 81 MG TAB.CHEW PO (09:24)
[2019-03-22] MEDS: Glucerna Shake 120 ML LIQUID 60 ML PO ×2 (09:24→11:21)
[2019-03-22] MEDS: Escitalopram Oxalate 10 MG Tablet PO (09:25)
[2019-03-22] MEDS: Pantoprazole Sodium 40 MG Tablet PO (09:26)
[2019-03-22] MEDS: Furosemide 20 MG Tablet 60 MG PO (11:14)
[2019-03-22] MEDS: Carvedilol 12.5 MG Tablet PO (11:14)
[2019-03-22] MEDS: Insulin Lispro 100 UNIT/ML INSULN.PEN SQ (11:20)
[2019-03-22 11:26] LABS: Bedside Glucose 163 mg/dL (70-110)
--- NOTE | 2019-03-22 11:47 | DCINST_ITS ---
- Discharge Diagnoses Current Active Problems: Current Active and Chronic Problems (Last Reviewed 03/07/19 @ 14:04 by Napoleon Zabala MD) Chest pain (Acute) Diabetes mellitus, type II (Chronic) GERD (gastroesophageal reflux disease) (Chronic) You will use the following diet at home:: Cardiac Your food should be the consistency of: Regular Your liquids should be the consistency of: Regular/Thin Discharge Activity: Return to Normal Activity Weight Bearing Status: Weight bearing as tolerated Call your doctor if you observe: Inability to urinate, Shortness of breath, Fainting spells, Swelling in the ankles, Chest pain Instructions: Discharge Instructions for Heart Failure, Heart Failure: Tracking Your Weight, What Is Heart Failure? Allergies/Adverse Reactions: Allergies No Known Allergies Allergy (Verified 03/07/19 13:26) Medications to take at Discharge Glimepiride 4 mg PO DAILY 04/26/14 Aspirin [Aspirin, Baby] 81 mg PO DAILY@0800 09/29/14 escitalopram 10 mg tablet 10 mg PO QDAY 30 Days #30 tab 02/04/18 pantoprazole 40 mg tablet,delayed release 40 mg PO QDAY 30 Days #30 tab 02/07/18 atorvastatin 80 mg tablet 80 mg PO QHS #90 tab 04/08/18 carvedilol 12.5 mg tablet 12.5 mg PO BID #180 tab 02/05/19 Ferrous Sulfate [Iron] 325 mg PO DAILY 03/19/19 Furosemide [Lasix] 60 mg PO BID@1000,1800 #180 tablet 03/22/19 hydrALAZINE [Apresoline] 10 mg PO TID #90 tablet 03/22/19 The following prescriptions were given: Furosemide [Lasix] 60 mg PO BID@1000,1800 #180 tablet hydrALAZINE [Apresoline] 10 mg PO TID #90 tablet Primary Care Physician: Saman Bagley MD [Primary Care Provider] - Please follow up with your Primary Care Physician in: one week Test Results: Test results from this visit will be discussed in further detail at your follow- up appointment, if applicable. Please Follow Up With: Napoleon Zabala MD When: one week Proposed Discharge Date: 03/22/19
--- NOTE | 2019-03-22 14:22 | DS.PCM_ITS ---
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 No pneumonia. No pleural effusions. Electronically Signed: Alphonso Fontana MD at 1:50 EDT Tel , Service support , Dr Stinson- Cardiology Operations: None Procedures: 2-D Echocardiogram, Cardiac catheterization, Colonoscopy, EGD Summary of Care Provided: The patient is a 73 year old M with an extensive past medical history as listed. He was admitted through the ED on 03/19/2019 with a complaint of intermittent chest pain and dyspnea which had been going on for about a few weeks prior to admission. He also had some chest heaviness which was exacerbated by movement. He had orthopnea and PND. Chest x-ray done on admission showed mild vascular congestion with no evidence of pneumonia or pleural effusions and EKG showed no acute ST changes. BNP up done was over 1600. He was admitted and managed for acute exacerbation of heart failure with reduced ejection fraction. 2D echo done showed EF of 15% with septal motion consistent with IVCD and severely dilated left ventricle and severe global hypokinesia of the right ventricle. RVSP was estimated to be 61 mmHg. Cardiology was consulted and patient went for cardiac cath on 03/20/2019 which showed triple-vessel CAD of the LAD, left circumflex and RCA with widely patent grafts to the LAD and OM and occluded graft to the PDA which appeared to be old. He did not have an LV gram to conserve dye on account of CKD stage III. Cardiology recommendation was to start Coumadin for pulmonary hypertension and severe left ventricular dysfunction. However patient was noted to be anemic with hemoglobin falling is low at 7.3. He was transfused with 1 unit of packed red blood cells. General surgery was consulted and he had an EGD and colonoscopy which showed no obvious bleeding or source of bleeding on EGD or colonoscopy and he had a small rectal polyp which was removed as well as diverticulosis and external hemorrhoids. On day of discharge hemoglobin was 8.9. Patient remained stable and was discharged home on 03/22/2019. His Lasix was increased to 60 mg twice daily. Lisinopril and metformin were stopped and he was started on p.o. hydralazine. Discontinue glimepiride. Of note, patient was being worked up on outpatient basis for anemia and had an abdominal ultrasound which showed a right superior pole hypoechoic exophytic lesion measuring about 2.6 cm. This was discussed with his PCP Dr. Saman Bagley on phone and he will follow patient up on outpatient basis for further work-up of the mass. Patient is to follow-up with his primary care doctor and with cardiology. Patient seen and examined prior to discharge. was by his bedside. He had no complaints and felt well. Review of systems is otherwise negative. Labs and vitals reviewed. Home medications reviewed and reconciled. o/e: Vital Signs Height 5 ft 4.96 in Weight: 133 lb 6.075 oz Weight in Pounds 133.4 lbs Pulse Ox 94 Temperature 97.7 F Pulse Rate 71 Respiratory Rate 18 Blood Pressure 122/60 Blood Pressure Position Semi-Fowlers [] General: Alert, Oriented x3, Cooperative, No apparent distress HEENT: Atraumatic, PERRLA, EOMI, Normocephalic, Oral: Moist Mucosa Neck: Supple, No JVD, Negative Carotid Bruits Lungs: lungs clear to auscultation. no wheezes or crackles. Cardiovascular: Regular rate, Regular Rhythm, Normal S1, Normal S2, No murmurs Abdomen: Bowel Sounds Present, Soft, Non Tender, Non-Distended, No Hepato- splenomegaly Extremities: No clubbing, No cyanosis, No edema, Capillary Refill Less than 3 Seconds Skin: No rashes, No breakdown Musculoskeletal: No Tenderness to Palpation of Joints or Extremities Lymphatic: No Cervical, Supraclavicular, or Inguinal Adenopathy Neurological: Cranial nerves II-XII grossly intact, Neuro grossly intact, Motor Exam 5/5 strength throughout Psych/Mental Status: Normal Affect, Appropriate, Alert and oriented to time, place, person, mood and affect Plan as above. Of note, per discussion with patient's primary fisher scallop Dr. Zabala, Coumadin was not started as he will follow patient up on outpatient basis and decide about Coumadin. - Physical Exam Vital Signs Temp Pulse Resp BP Pulse Ox 97.7 F L 71 18 122/60 H 94 03/22/19 11:12 03/22/19 11:12 03/22/19 11:12 03/22/19 11:12 03/22/19 11:12 Oxygen Flow Rate (L/min) 2 Oxygen Delivery Method Room Air Weight: 133 lb 6.075 oz Body Mass Index (BMI) 22.1 Finger Stick Blood Glucose 163 Intake and Output for Last 24 Hours 03/20/19 03/21/19 03/22/19 23:59 23:59 23:59 Intake Total 910 / 910 4745 / 4745 250 / 250 Output Total 600 / 600 Balance 310 / 310 4745 / 4745 250 / 250 Microbiology Past 72 Hours 03/19/19 15:30 Stool Occult Blood (SANA) - Final Stool Laboratory Tests Past 24 Hrs 03/21/19 03/22/19 03/22/19 08:00 07:02 07:02 WBC 5.2 RBC 3.02 L Hgb 8.9 L Hct 27.4 L MCV 90.7 MCH 29.5 MCHC 32.5 RDW 15.8 H RDW Differential 52.0 H Plt Count 200 MPV 10.7 Immature Gran % (Auto) 0.200 Neut % (Auto) 70.2 H Lymph % (Auto) 14.2 L [place] % (Auto) 12.9 H Eos % (Auto) 2.1 Baso % (Auto) 0.4 Absolute Neuts (auto) 3.7 Absolute Lymphs (auto) 0.74 L Total Counted Not Reportable PT INR APTT Sodium 142 Potassium 3.5 Chloride 111 H Carbon Dioxide 24.0 Anion Gap 7 BUN 31 H Creatinine 2.60 H Estim Creat Clear Calc 20.56 Est GFR (MDRD) Af Amer 31 L Est GFR (MDRD) Non-Af 26 L BUN/Creatinine Ratio 11.9 Glucose 108 H Calcium 8.7 Magnesium 2.0 Crossmatch See Detail 03/22/19 07:02 WBC RBC Hgb Hct MCV MCH MCHC RDW RDW Differential Plt Count MPV Immature Gran % (Auto) Neut % (Auto) Lymph % (Auto) [place] % (Auto) Eos % (Auto) Baso % (Auto) Absolute Neuts (auto) Absolute Lymphs (auto) Total Counted PT 14.8 INR 1.2 APTT 33.2 Sodium Potassium Chloride Carbon Dioxide Anion Gap BUN Creatinine Estim Creat Clear Calc Est GFR (MDRD) Af Amer Est GFR (MDRD) Non-Af BUN/Creatinine Ratio Glucose Calcium Magnesium Crossmatch POC Glucose 03/22/19 03/22/19 03/21/19 11:20 06:54 21:23 POC Glucose 163 H 109 147 H 03/21/19 16:29 POC Glucose 194 H Discharge Diet: Low fat/ Low Cholesterol Discharge Activity: Return to Normal Activity Weight Bearing Status: Weight bearing as tolerated Call your doctor if you observe: Inability to urinate, Shortness of breath, Fainting spells, Swelling in the ankles, Chest pain Home Medications: Medications to take at Discharge Glimepiride 4 mg PO DAILY 04/26/14 Aspirin [Aspirin, Baby] 81 mg PO DAILY@0800 09/29/14 escitalopram 10 mg tablet 10 mg PO QDAY 30 Days #30 tab 02/04/18 pantoprazole 40 mg tablet,delayed release 40 mg PO QDAY 30 Days #30 tab 02/07/18 atorvastatin 80 mg tablet 80 mg PO QHS #90 tab 04/08/18 carvedilol 12.5 mg tablet 12.5 mg PO BID #180 tab 02/05/19 Ferrous Sulfate [Iron] 325 mg PO DAILY 03/19/19 Furosemide [Lasix] 60 mg PO BID@1000,1800 #180 tablet 03/22/19 hydrALAZINE [Apresoline] 10 mg PO TID #90 tablet 03/22/19 Following Prescrptions Were Given to Patient: Furosemide [Lasix] 60 mg PO BID@1000,1800 #180 tablet hydrALAZINE [Apresoline] 10 mg PO TID #90 tablet Primary Care Physician: Saman Bagley MD [Primary Care Provider] - Please follow up with your Primary Care Physician in: one week Please Follow Up With: Napoleon Zabala MD When: one week Please Follow Up With: Saman Bagley MD When: one week Patient Instructions: What Is Heart Failure?, Heart Failure: Tracking Your Weight, Discharge Instructions for Heart Failure Disposition: Home Minutes spent on discharge:: 45 Patient Condition:: Stable Medical Necessity - Tobacco Use Smoking Status: Never smoker Tobacco Use: Non-smoker Meaningful Use Info Meaningful Use Diagnoses (Choose all that apply): CHF - CHF ELDER/ARB ordered at discharge?: No Reason ELDER/ARB not ordered?: Worsening renal disease Documented LVEF (%): 15 Code Visit Inpatient E&M: 91974 Disch Hosp
--- NOTE | 2019-03-25 15:32 | CASEMGMT ---
RAHEEL CANTU Discharge Follow-Up Phone Call. Lace: 11 Strata: 3 Discharge Date: 03/22/19 Adm Dx: CHF Exac, CP Attempted discharge follow-up phone call. No answer. Message left for pt to return call to CONFIGURATION MANAGEMENT ARCHITECTHeidi PICKERING CM, if he has any questions/concerns re: discharge instructions, medications, or follow-up appts. Phone number provided. Adilson YANES RN, CM
== END 2019-03-22 13:01 | disposition home or self-care (01) | DRG 286 ==
LOC: ED 02:25 → PCU 02:37
PROVIDERS: Anesthesiology; Surgery; Admitting Provider Family Medicine; Emergency Provider Emergency Medicine; Family Provider Family Medicine; PCP Family Medicine; Referring Provider Family Medicine; Visit Provider Student in an Organized Health Care Education/Training Program
PROC: 0DJD8ZZ Inspection of Lower Intestinal Tract, Via Natural or Artificial Opening Endoscopic (ICD-10-PCS; CPT 45378; principal; 2019-03-22 07:55)
DX: I13.0 Hypertensive heart and chronic kidney disease with heart failure and stage 1 through stage 4 chronic kidney disease, or unspecified chronic kidney disease (principal); I50.23 Acute on chronic systolic (congestive) heart failure; I25.810 Atherosclerosis of coronary artery bypass graft(s) without angina pectoris; N18.4 Chronic kidney disease, stage 4 (severe); E11.22 Type 2 diabetes mellitus with diabetic chronic kidney disease; N18.3 Chronic kidney disease, stage 3 (moderate); D50.9 Iron deficiency anemia, unspecified; E11.51 Type 2 diabetes mellitus with diabetic peripheral angiopathy without gangrene; I27.20 Pulmonary hypertension, unspecified; K62.1 Rectal polyp; D63.8 Anemia in other chronic diseases classified elsewhere; I25.5 Ischemic cardiomyopathy; E78.5 Hyperlipidemia, unspecified; F32.9 Major depressive disorder, single episode, unspecified; F41.9 Anxiety disorder, unspecified; K21.9 Gastro-esophageal reflux disease without esophagitis; Z79.84 Long term (current) use of oral hypoglycemic drugs; Z79.82 Long term (current) use of aspirin; Z79.899 Other long term (current) drug therapy; Z95.1 Presence of aortocoronary bypass graft
CPT/HCPCS: 36415; 71045; 80048; 80053; 80061; 81001; 82274; 82962; 83540; 83550; 83735; 83880; 84443; 84484; 85014; 85018; 85025; 85610; 85730; 86850; 86900; 86920; 86922; 88305; 93005; 93306; 93455; 97161; 97165; 97802; 99285; J7040; P9016; Q9957; Q9967; A4216; C1769; C1894; C8929; J1940

== ENCOUNTER → 2019-04-07 10:37 | Outpatient (CLI) | payer MEDICARE, SELFPAY ==
[2019-03-21 23:42] VITALS: BMI 22.1
[2019-04-07 12:33] LABS: Absolute Lymphocyte Count 1.12 X10^3/ul (0.83-4.51); Absolute Neutrophil Count 3.7 X10^3/uL (2.0-7.7); Basophil# 0.03 X10^3/uL; Basophil% 0.5 % (0-1); Eosinophil# 0.17 X10^3/uL; Hematocrit 33.3 % (40-54); Hemoglobin 10.4 g/dl (13.0-16.5); Lymphocyte # 1.12 X10^3/ul (4.0); Lymphocyte % 19.6 % (19-41); Mean Corp Hgb Conc 31.2 g/gl (32-36); Mean Corpuscular Hgb 28.7 pg (27.0-32.0); Mean Corpuscular Volume 91.7 fL (80-94); Mean Platelet Vol. 11.5 fl (6.2-12.0); Monocyte# 0.72 X10^3/uL; Monocyte% 12.6 % (0-10); Neutrophil # 3.67 X10^3/uL (2.7-7.7); Neutrophil % 64.3 % (47-70); Platelet Count 222 K/mm3 (150-450); RBC Distribution Width CV 13.7 % (11.6-14.6); RBC Distribution Width SD 44.6 fl (35.1-43.9); Red Blood Count 3.63 M/mm3 (4.6-6.2); White Blood Count 5.7 K/mm3 (4.4-11.0)
[2019-04-07 12:37] LABS: Anion Gap 8 (5-15); BUN 28 mg/dL (7-18); BUN/Creat Ratio 11.5 RATIO (10-20); Calcium,Total 9.1 mg/dL (8.5-10.1); Chloride 103 mmol/L (98-107); Creatinine, Serum 2.43 mg/dL (0.70-1.30); EST Glomerular Filtration Rate 28 mL/min (>60); Est Glom Filt Rate - Afr Amer 34 mL/min (>60); Glucose 129 mg/dL (74-106); Potassium 3.9 mmol/L (3.5-5.1); Sodium Level 140 mmol/L (136-145)
[2019-04-07 12:46] LABS: POSITIVE COUNT NO; POSITIVE DIFFERENTIAL NO; POSITIVE MORPHOLOGY NO
== END ==
PROVIDERS: Family Provider Family Medicine; PCP Family Medicine; Visit Provider Family Medicine
DX: E11.9 Type 2 diabetes mellitus without complications (principal); E78.00 Pure hypercholesterolemia, unspecified; D63.8 Anemia in other chronic diseases classified elsewhere
CPT/HCPCS: 36415; 80048; 85025

== ENCOUNTER → 2019-04-09 12:08 | Outpatient (CLI) | payer MEDICARE, SELFPAY ==
[2019-03-21 23:42] VITALS: BMI 22.1
--- NOTE | 2019-04-09 12:14 | MRI_ITS ---
STUDY: MRI ABDOMEN WITHOUT CONTRAST REASON FOR EXAM: Male, 73 years old. Right renal lesion TECHNIQUE: Standardized fat and water weighted pulse sequences were obtained in all 3 orthogonal planes. COMPARISON: Ultrasound dated 03/15/2019. CT dated 10/13/2014. FINDINGS: This study is limited by contrast. There is a rounded contour abnormality in the upper pole of the right kidney (image 16 series 10, medial to the cyst) which likely corresponds to the solid nodule seen on the recent ultrasound. This is not well evaluated without contrast. Based on the ultrasound findings, this is highly suspicious for renal cell carcinoma. There is a 3.5 cm exophytic simple cyst arising from the upper pole of the right kidney. The left kidney is unremarkable. There is no hydronephrosis. There are gallstones noted in the gallbladder. There is no biliary duct dilatation. The liver, spleen, pancreas and adrenal glands are normal in contour and signal intensity. The visualized bowel demonstrates no evidence of obstruction. The aorta is normal in caliber. MRI/Abdomen without Contrast IMPRESSION: Study significantly limited by lack of contrast. Rounded contour abnormality in the upper pole of the right kidney which likely corresponds to the solid nodule seen on the recent ultrasound. This is not well evaluated without contrast. Based on the ultrasound findings, this is highly suspicious for renal cell carcinoma. Electronically Signed: Param Iyer, at 17:26 EDT Tel , Service support ,
== END ==
PROVIDERS: Family Provider Family Medicine; PCP Family Medicine; Referring Provider Family Medicine; Visit Provider Family Medicine
DX: N28.89 Other specified disorders of kidney and ureter (principal)
CPT/HCPCS: 74181

== ENCOUNTER → 2019-04-21 09:40 | Outpatient (CLI) | payer MEDICARE, SELFPAY ==
[2019-04-11 11:46] VITALS: BMI 22.8
== END ==
PROVIDERS: Family Provider Family Medicine; PCP Family Medicine; Referring Provider Urology; Visit Provider Urology
DX: R97.20 Elevated prostate specific antigen [PSA] (principal)
CPT/HCPCS: 36415; 84153

== ENCOUNTER 2019-04-28 09:41 | Observation (INO) | payer MEDICARE, SELFPAY ==
[2019-04-11 11:46] VITALS: BMI 22.8
[2019-04-28] VITALS (12 sets, daily range): BP systolic 105–154; BP diastolic 49–71; PULSE 76–81; RESP 15–21; TEMP 36.4–36.8; O2SAT 94–96; BMI 22.4; BMI 23.6
--- NOTE | 2019-04-28 09:54 | RAD_ITS ---
STUDY: X-RAY CHEST REASON FOR EXAM: Male, 73 years old. Shortness of breath with weakness and cough. TECHNIQUE: Single AP portable view of the chest. COMPARISON: Comparison is made with prior study dated March 19, 2019. FINDINGS: EKG electrodes are seen. Mild degree of vascular congestion. Blunting of the left costophrenic angle. Sternal cerclage wires and vascular clips are present from a prior sternotomy and coronary artery bypass graft procedure (CABG). Mild cardiomegaly. Normal mediastinum and clay. Normal visualized pulmonary arteries. Normal visualized aortic arch and descending thoracic aorta. Normal visualized thoracic spine. Normal visualized ribs, clavicles, and shoulders. There is no demonstrated abnormality of the visualized soft tissue structures of the upper abdomen. RAD/Chest 1 View (Portable) IMPRESSION: Cardiomegaly and vascular congestion with blunting of the left costophrenic angle. Electronically Signed: Raheel Ortega, at 10:25 EDT , Service support ,
--- NOTE | 2019-04-28 09:58 | EKG12_ITS ---
Test Reason : CP Blood Pressure : / mmHG Vent. Rate : 073 BPM Atrial Rate : 073 BPM P-R Int : 152 ms QRS Dur : 156 ms QT Int : 458 ms P-R-T Axes : 043 105 -74 degrees QTc Int : 504 ms Normal sinus rhythm Right bundle branch block T wave abnormality, consider inferolateral ischemia Abnormal ECG Confirmed by SEBASTIAN CIFUENTES, AYANNA ([id number]), supervising editor news reel ASHLEY ROSE ([id number]) on 04/30/2019 11:32:03 AM Referred By: Lexy Rosenberg Confirmed By:AYANNA CORTES MD
--- NOTE | 2019-04-28 10:00 | ED.VIS.GEN ---
History of Present Illness Chief Complaint: Weakness Informant: Patient Onset: Days - 5 Context: Onset with activity Timing: Continuous Current Severity: Moderate Maximum Severity: Moderate Narrative: Patient presents with shortness of breath and generalized weakness for 4 to 5 days, he also has a chronic cough. No reported fever chills or productive cough. He does not have chest pain but he has intermittent chest discomfort. He has a history of congestive heart failure, per his clinical presentation is similar. No recent weight gain or weight loss, no lower extremity edema. He does not have orthopnea but he does have exertional dyspnea. He has no DVT or PE risk factors. He was found to be hypoxic prior to arrival to the room he was 88% on room air in triage. Past Medical History - Allergies and Home Meds Allergies/Adverse Reactions: Allergies No Known Allergies Allergy (Verified 04/11/19 11:46) Primary Care Physician: Saman Bagley MD [Primary Care Provider] - Past Medical History: - - As in HPI, hypertension, CHF Surgical History: noncontributory, coronary bypass surgery, - - CABG x 3, R inguinal hernia repair. Lives: Spouse/ Significant Other Smoking Status: Never smoker Drugs: None - Family History Paternal Family History: Family History (Last Reviewed 04/11/19 @ 12:30 by Napoleon Zabala MD) Brother CAD (coronary artery disease) Family History: Reports: - - Patient notes father with a history of polio with debility secondary to this but otherwise had been healthy and in his 90s. Maternal Family History: Family History (Last Reviewed 04/11/19 @ 12:30 by Napoleon Zabala MD) Brother CAD (coronary artery disease) Family History: Reports: Heart Disease Sibling Family History: Family History (Last Reviewed 04/11/19 @ 12:30 by Napoleon Zabala MD) Brother CAD (coronary artery disease) Family History: Reports: Heart Disease Review of Systems All systems negative except as indicated General: Denies: Chills, Fever, Sweats ENT: Denies: Rhinorrhea, Sore throat Cardiovascular: Denies: Chest pain, Palpitations Respiratory: Reports: Dyspnea, Cough, Dyspnea on exertion. Denies: Sputum Gastrointestinal: Denies: Abdominal pain, Nausea, Vomiting, Diarrhea, Melena, Hematochezia Genitourinary: Denies: Dysuria, Hematuria, Frequency Musculoskeletal: Denies: Back pain, Extremity Pain Skin: Denies: Rash, Wounds Neurological: Reports: Weakness. Denies: Headache, Numbness Hematologic: Denies: Easy bruising Physical Exam Vital Signs/Narrative: Vital Signs Temp Pulse Resp BP Pulse Ox 04/28/19 09:43 98.3 F 76 15 105/49 L 95 General: Well nourished, Well developed Eyes: Negative for: Scleral icterus ENT: Moist mucous membranes. Negative for: Nasal congestion Cardiovascular: Regular rate, Regular rhythm Respiratory: - - Coarse bilateral breath sounds speaking full sentences no wheezing. Negative for: No distress Abdomen: Soft, Nontender Back: Nontender, Normal Inspection Extremities: Nontender, No edema. Negative for: Calf Tenderness Skin: Normal color Neurological: Alert, Oriented x3 Diagnostic/Tx/Re-eval - Rhythm Strip Rhythm Strip: Sinus Rhythm Rate: 73 Ectopy: None - EKG Initial EKG Interpretation: Sinus Rhythm, RBBB, Non-Specific ST Changes, - - Normal NV and QTc intervals. Interpreted by emergency doctor - Medical Decision Making Patient is found to have a CHF exacerbation, I gave Lasix, I will admit to the hospitalist. Disposition admit in stable condition ED Disposition - Plan for ED Patient: Diagnosis: Congestive heart failure Referrals: Saman Bagley MD [Primary Care Provider] -
[2019-04-28 10:09] LABS: Absolute Lymphocyte Count 0.82 X10^3/ul (0.83-4.51); Absolute Neutrophil Count 6.6 X10^3/uL (2.0-7.7); Basophil# 0.02 X10^3/uL; Basophil% 0.2 % (0-1); Eosinophil# 0.11 X10^3/uL; Eosinophils% 1.3 % (0-5); Hematocrit 25.6 % (40-54); Hemoglobin 8.4 g/dl (13.0-16.5); Lymphocyte # 0.82 X10^3/ul (4.0); Lymphocyte % 9.8 % (19-41); Mean Corp Hgb Conc 32.8 g/gl (32-36); Mean Corpuscular Hgb 28.8 pg (27.0-32.0); Mean Corpuscular Volume 87.7 fL (80-94); Mean Platelet Vol. 10.5 fl (6.2-12.0); Monocyte# 0.81 X10^3/uL; Monocyte% 9.7 % (0-10); Neutrophil # 6.55 X10^3/uL (2.7-7.7); Neutrophil % 78.8 % (47-70); Platelet Count 336 K/mm3 (150-450); RBC Distribution Width SD 44.8 fl (35.1-43.9); Red Blood Count 2.92 M/mm3 (4.6-6.2); White Blood Count 8.3 K/mm3 (4.4-11.0)
[2019-04-28 10:10] LABS: POSITIVE COUNT NO; POSITIVE DIFFERENTIAL NO; POSITIVE MORPHOLOGY NO
[2019-04-28 10:26] LABS: ALB/GLOB Ratio 0.8 RATIO (0.9-2.4); AST(SGOT) 20 U/L (15-37); Alanine Aminotransfer ALT/SGPT 19 U/L (16-61); Albumin, Serum 3.2 g/dL (3.2-5.0); Alkaline Phosphatase 101 U/L (45-117); Anion Gap 8 (5-15); BUN 29 mg/dL (7-18); BUN/Creat Ratio 11.7 RATIO (10-20); Calcium,Total 8.6 mg/dL (8.5-10.1); Chloride 107 mmol/L (98-107); Creatinine, Serum 2.48 mg/dL (0.70-1.30); EST Glomerular Filtration Rate 27 mL/min (>60); Est Glom Filt Rate - Afr Amer 33 mL/min (>60); Estimated Creatinine Clearance 22.29 ml/min; Globulin 4.2 g/dL (2.2-4.2); Glucose 191 mg/dL (74-106); Protein, Total 7.4 g/dL (6.4-8.2); Sodium Level 139 mmol/L (136-145)
[2019-04-28 10:40] LABS: BNP,B-Type NATRIURETIC PEPTIDE 2277.5 pg/mL (0-100)
--- NOTE | 2019-04-28 11:23 | NURSING ---
314 ACUTE ON CHRONIC SYSTOLIC CHF SEMENTI
[2019-04-28] MEDS: Furosemide 40 MG/4 ML Vial IV ×2 (11:29→17:05)
--- NOTE | 2019-04-28 13:35 | HP.PCM_ITS ---
Problem List (1) Chronic renal failure, stage 4 (severe) Status: Chronic (2) Diabetes mellitus type 2 in nonobese Status: Chronic (3) GERD (gastroesophageal reflux disease) Status: Chronic (4) Anemia of chronic renal failure, stage 4 (severe) Status: Chronic (5) Elevated PSA, between 10 and less than 20 ng/ml Status: Chronic (6) Right bundle branch block (RBBB) Status: Chronic (7) Secondary pulmonary arterial hypertension Status: Chronic (8) Acute on chronic systolic (congestive) heart failure Status: Acute (9) Essential (primary) hypertension Status: Chronic (10) Ischemic cardiomyopathy Status: Chronic Comment: EF is 15% on 03/19/2019 with severe global hypokinesis of the left ventricle and moderately dilated right ventricle. (11) H/O coronary artery bypass surgery Status: Resolved Comment: CABG x 3: FULTON-distal D1, SVG-OM, SVG-Distal PDA 04/30/2014 (12) Atherosclerosis of coronary artery bypass graft without angina pectoris Status: Chronic Qualifiers: [place] vs. transplanted heart: [place] heart Qualified Code(s): I25.810 - Atherosclerosis of coronary artery bypass graft(s) without angina pectoris Comment: CABG x 3: FULTON-distal D1, SVG-OM, SVG-Distal PDA 04/30/2014 (13) HLD (hyperlipidemia) Status: Chronic Qualifiers: History of Present Illness Date of Admission: 04/28/19 Chief Complaint: Dry cough when lying down at night, shortness of breath and weakness in his legs The patient is a 73 year old M with a past medical history of hypertension, hyperlipidemia, diabetes mellitus type 2, chronic renal failure stage IV, anemia of chronic renal failure, coronary artery disease with history of CABG, elevated PSA and severe cardiomyopathy with a 15% ejection fraction in March 2019 who presented to the emergency department at [facility] on 04/28/2019 complaining of increasing shortness of breath with exertion, orthopnea and dry cough when he lies down at night. His weight ranges between 131 and 135 and he thinks it was 134 on 04/27/2019. He was admitted to the hospital in early March 2019 for acute on chronic congestive heart failure and at that time Lasix was increased to 60 mg daily and hydralazine was added to his drug regimen. He has been compliant with his medications. He also tells me he feels lightheaded when standing at times and his legs feel weak. He has not noticed any significant change in his urine output. He has trace lower extremity edema where his socks are tighter. Vital signs of presentation to the emergency room are temperature 98.3, pulse rate 76, blood pressure 105/49, respiratory rate 15 and he was 95 to 96% saturated on room air. Current blood pressure is 138/71. White blood cell count is within normal limits with 79% neutrophils. Hemoglobin is 8.4, down from 8.9 in March 2019. Platelets are within normal limits. BUN is 29 and his creatinine is 2.48 which is within his baseline. Potassium is 4.0 today. Troponin was 0.046 and he chronically has some mildly increased troponin. BNP was 2277 which was up from approximately 1700 in March 2019. Chest x-ray shows increased pulmonary vascular congestion with some blunting of the left costophrenic angle. He is being admitted to the hospital with a diagnosis of acute on chronic systolic congestive heart failure. He received 40 mg of IV Lasix in the emergency department and has urinated 3 times already. Past Medical History Past Medical History (Chronic Problems): Chronic Problems (Last Reviewed 04/11/19 @ 12:30 by Napoleon Zabala MD) Chronic renal failure, stage 4 (severe) (Chronic) Diabetes mellitus type 2 in nonobese (Chronic) GERD (gastroesophageal reflux disease) (Chronic) Anemia of chronic renal failure, stage 4 (severe) (Chronic) Elevated PSA, between 10 and less than 20 ng/ml (Chronic) Right bundle branch block (RBBB) (Chronic) Secondary pulmonary arterial hypertension (Chronic) Essential (primary) hypertension (Chronic) Ischemic cardiomyopathy (Chronic) EF is 15% on 03/19/2019 with severe global hypokinesis of the left ventricle and moderately dilated right ventricle. Atherosclerosis of coronary artery bypass graft without angina pectoris (Chronic) CABG x 3: FULTON-distal D1, SVG-OM, SVG-Distal PDA 04/30/2014 HLD (hyperlipidemia) (Chronic) Medical History: Medical History (Last Reviewed 04/28/19 @ 13:44 by Lexy Rosenberg DO) Right bundle branch block (RBBB) (Chronic) I45.10 Secondary pulmonary arterial hypertension (Chronic) I27.21 Acute on chronic systolic (congestive) heart failure (Acute) Onset Date: 03/20 I50.23 Essential (primary) hypertension (Chronic) I10 Ischemic cardiomyopathy (Chronic) I25.5 EF is 15% on 03/19/2019 with severe global hypokinesis of the left ventricle and moderately dilated right ventricle. Atherosclerosis of coronary artery bypass graft without angina pectoris (Chronic) I25.810 CABG x 3: FULTON-distal D1, SVG-OM, SVG-Distal PDA 04/30/2014 HLD (hyperlipidemia) (Chronic) E78.5 Anemia D64.9 Bilateral pleural effusion J90 Claudication of both lower extremities I73.9 Type 2 diabetes mellitus E11.9 Dyspnea (Resolved) R06.00 Incarcerated right inguinal hernia (Resolved) K40.30 Allergies No Known Allergies Allergy (Verified 04/11/19 11:46) Home Medications: Ambulatory Orders Medication Instructions Recorded Glimepiride 4 mg PO DAILY 04/26/14 Aspirin [Aspirin, Baby] 81 mg PO DAILY@0800 09/29/14 escitalopram 10 mg tablet 10 mg PO QDAY 30 Days #30 tab 02/04/18 pantoprazole 40 mg tablet,delayed 40 mg PO QDAY 30 Days #30 tab 02/07/18 release Ferrous Sulfate [Iron] 325 mg PO DAILY 03/19/19 Atorvastatin Calcium 80 mg PO QHS 04/28/19 Carvedilol [Coreg (Beta Demetrio)] 12.5 mg PO BID 04/28/19 Furosemide [Lasix] 60 mg PO DAILY 04/28/19 Hydralazine HCl 10 mg PO TID 04/28/19 Surgical History: Surgical History (Last Reviewed 04/28/19 @ 13:44 by Lexy Rosenberg DO) H/O coronary artery bypass surgery (Resolved) Onset Date: 04/30/14 Z95.1 CABG x 3: FULTON-distal D1, SVG-OM, SVG-Distal PDA 04/30/2014 History of left heart catheterization (LHC) Onset Date: 03/20/19 Z98.890 Per LHC 03/20/2019: Triple vessel CAD of the LAD, LCX and RCA; [place] patent FULTON to LAD; Widely patent SVG to OM; Occluded SVG to PDA (appears old); No LV angiogram done due to CRI. Elevated Left Ventricular End Diastolic Pressure Left heart cath March 2012; LHC W/ IABP INsertion 04/27/14 History of right inguinal hernia repair Onset Date: 03/2018 Z98.890, Z87.19 History of thoracentesis Z98.890 Surgical History: noncontributory, coronary bypass surgery, - - CABG x 3, R inguinal hernia repair. Psychiatric History: Anxiety, Depression Lives: Spouse/ Significant Other Smoking Status: Never smoker Tobacco Use: Non-smoker Alcohol: None Drugs: None - *Family History Paternal Family History: Family History (Last Reviewed 04/28/19 @ 13:45 by Lexy Rosenberg DO) Brother CAD (coronary artery disease) History Items: - - Patient notes father with a history of polio with debility secondary to this but otherwise had been healthy and in his 90s. Maternal Family History: Family History (Last Reviewed 04/28/19 @ 13:45 by Lexy Rosenberg DO) Brother CAD (coronary artery disease) History Items: Heart Disease Sibling Family History: Family History (Last Reviewed 04/28/19 @ 13:45 by Lexy Rosenberg DO) Brother CAD (coronary artery disease) History Items: Heart Disease Review of Systems Constitutional: Reports: Chills - He tells me he is often cold but TSH was recently normal and this may be due to marked decrease in ejection fraction with poor cardiac output.. Denies: Fever, Weight Change Eyes: Denies: Blurred vision HEENT: Denies: Head Aches, Sinus Congestion, Sinus Drainage Cardiovascular: Reports: Edema - Trace of the ankles, Light Headedness, Orthopnea. Denies: Chest Pain, Palpitations, Syncope Respiratory: Reports: Cough - Dry cough at night when he lies down to sleep, Shortness of breath upon exertion, - - He also has shortness of breath when lying down.. Denies: Hemoptysis, Pleuritic Pain, Sputum production Gastrointestinal: Denies: Abdominal Pain, Nausea, Vomiting Genitourinary: Denies: Dysuria Musculoskeletal: Denies: Joint Pain, Joint Tenderness Skin: Denies: Rash, Wounds Neurological: Denies: Focal weakness, Numbness, Tingling, Tremor, Seizures Psychiatric: Reports: Anxiety, Depression. Denies: Homicidal Ideations, Suicidal Ideations Endocrine: Denies: Change in Body Habitus Hematologic/ Lymphatic: Denies: Easy Bruising, Easy Bleeding, Hx of blood clot VTE Information - Inpt Only VTE Present on Admission: No VTE Mechan Device Prophylaxis: Knee High DANITA Hose VTE Pharm Prophylaxis ordered?: Yes - Physical Exam General: Alert, Oriented x3, Cooperative, No apparent distress, Well developed, Well nourished HEENT: Atraumatic, PERRLA, EOMI, Normocephalic Oral: Moist Mucosa Neck: Supple, Negative Carotid Bruits, Trachea Midline, JVD, Bilateral - Mild Lungs: Normal air movement, Rales - Bilateral bases, right greater than left Cardiovascular: Regular rate, Normal S1, Normal S2, No murmurs, No Ectopic Activity, Gallops - Positive S4, No rub noted Abdomen: Bowel Sounds Present, Soft, Non Tender, Non-Distended Extremities: No clubbing, No cyanosis, Capillary Refill Less than 3 Seconds, No Calf Tenderness, Edema - He has a slight ring above his ankles secondary to a tight sock Skin: No rashes, No breakdown, - - He has some scabs on his right lower extremity when he fell playing basketball with his grandson. None appear infected. Musculoskeletal: No Tenderness to Palpation of Joints or Extremities Neurological: Cranial nerves II-XII grossly intact, Neuro grossly intact Psych/Mental Status: Normal Affect, Appropriate Vital Signs Temp Pulse Resp BP Pulse Ox 97.5 F L 79 18 154/70 H 94 04/28/19 12:24 04/28/19 12:24 04/28/19 12:53 04/28/19 12:24 04/28/19 12:24 Oxygen Flow Rate (L/min) 2 Oxygen Delivery Method Nasal Cannula Weight: 137 lb 9.095 oz Body Mass Index (BMI) 23.6 Finger Stick Blood Glucose 163 Laboratory Tests Past 24 Hrs 04/28/19 04/28/19 04/28/19 10:00 10:00 10:00 WBC 8.3 RBC 2.92 L Hgb 8.4 L Hct 25.6 L MCV 87.7 MCH 28.8 MCHC 32.8 RDW 14.0 RDW Differential 44.8 H Plt Count 336 MPV 10.5 Immature Gran % (Auto) 0.200 Neut % (Auto) 78.8 H Lymph % (Auto) 9.8 L [place] % (Auto) 9.7 Eos % (Auto) 1.3 Baso % (Auto) 0.2 Absolute Neuts (auto) 6.6 Absolute Lymphs (auto) 0.82 L Total Counted Not Reportable Sodium 139 Potassium 4.0 Chloride 107 Carbon Dioxide 24.0 Anion Gap 8 BUN 29 H Creatinine 2.48 H Estim Creat Clear Calc 22.29 Est GFR (MDRD) Af Amer 33 L Est GFR (MDRD) Non-Af 27 L BUN/Creatinine Ratio 11.7 Glucose 191 H Calcium 8.6 Total Bilirubin 1.50 H AST 20 ALT 19 Alkaline Phosphatase 101 Troponin I 0.046 H B-Natriuretic Peptide 2277.5 H Total Protein 7.4 Albumin 3.2 Globulin 4.2 Albumin/Globulin Ratio 0.8 L Assessment/Plan All Active Problems (Last Reviewed 04/11/19 @ 12:30 by Napoleon Zabala MD) Acute on chronic systolic (congestive) heart failure (Acute 03/20/19) H/O coronary artery bypass surgery (Resolved 04/30/14) Dyspnea (Resolved) Incarcerated right inguinal hernia (Resolved) Impressions 1. Acute on chronic systolic congestive heart failure 2. Severe ischemic cardiomyopathy with a 15% ejection fraction in March 2019 3. Severe pulmonary hypertension 4. Coronary artery disease with history of CABG x3 vessels 5. hyperlipidemia 6. Diabetes mellitus type 2-well controlled with recent hemoglobin A1c less than 7 7. Hypertension 8. Chronic renal failure stage IV 9. Anemia of chronic renal failure stage IV-stable 10. Chronic mild elevation in troponin-likely secondary to chronic renal failure 11. Chronic elevation in PSA-most recent 14.6 Admit to a monitored bed on PCU Weigh at admission to the floor and then daily Acccurate I&O's Chest XRAY BNP Diurese with Lasix 40 mg IV twice today and then transition to oral Lasix 60 mg daily in the a.m. It is possible he will require an increase in the Lasix to twice daily. Recheck lab in the AM Salt restriction-reinforced the need to restrict salt to prevent excess fluid accumulation Fluid restriction-1200 cc daily Dietary consult for education regarding low sodium diet and fluid restriction Check orthostatic vital signs Increase hydralazine to 25 mg p.o. 3 times daily for better blood pressure control Code Visit Inpatient E&M: 79571 Init Hosp L3
[2019-04-28 13:47] LABS: Magnesium 2.1 mg/dL (1.6-2.6)
[2019-04-28] MEDS: Heparin Injection (Vial) 5,000 UNIT/ML VIAL 5000 UNIT SC ×2 (14:50→22:04)
[2019-04-28] MEDS: hydrALAZINE 25 MG Tablet PO ×2 (14:50→22:03)
[2019-04-28] MEDS: Glucerna Shake 120 ML LIQUID PO (17:06)
[2019-04-28 17:16] LABS: Bedside Glucose 213 mg/dL (70-110)
[2019-04-28] MEDS: Acetaminophen 325 MG Tablet 650 MG PO (22:02)
[2019-04-28] MEDS: Carvedilol 12.5 MG Tablet PO (22:03)
[2019-04-28] MEDS: Atorvastatin Calcium 80 MG Tablet PO (22:03)
[2019-04-28 22:20] LABS: Bedside Glucose 240 mg/dL (70-110)
[2019-04-28 23:24] LABS: Bacteria 0 SEEN /hpf (None Seen); Mucous, Urine 0 SEEN /hpf (<or=2+); Red Blood Cells-Urine 0 SEEN /hpf (0-5); Squamous Epithelial Cells - UA 0 SEEN /hpf (0-5); White Blood Cells 0 SEEN /hpf (0-5)
[2019-04-28 23:25] LABS: Color, Urine Straw (Yellow); Glucose, Dipstick Normal (Normal); Ketone-Dipstick Negative (Negative); Leukocyte Esterase-Dipstick Negative /ul (Negative); Nitrite-Dipstick Negative (Negative); Occult Blood-Urine Negative /ul (Negative); Protein-Dipstick 15 mg/dl (Negative); Specific Gravity, Urine 1.005 (1.002-1.030); Urine Bilirubin Dipstick Negative (Negative); Urine Clarity Clear (Clear); Urine Urobilinogen Normal (Normal); Urine pH 6.5 (5.0 - 8.0)
[2019-04-29] VITALS (9 sets, daily range): BP systolic 106–133; BP diastolic 48–61; PULSE 51–75; RESP 16; TEMP 36.7–37.2; O2SAT 94–97
[2019-04-29] MEDS: Heparin Injection (Vial) 5,000 UNIT/ML VIAL 5000 UNIT SC ×2 (06:33→14:27)
[2019-04-29] MEDS: hydrALAZINE 25 MG Tablet PO ×2 (06:33→14:27)
[2019-04-29 06:45] LABS: Bedside Glucose 138 mg/dL (70-110)
[2019-04-29 07:06] LABS: Anion Gap 5 (5-15); BUN 28 mg/dL (7-18); Calcium,Total 8.6 mg/dL (8.5-10.1); Chloride 108 mmol/L (98-107); Creatinine, Serum 2.33 mg/dL (0.70-1.30); EST Glomerular Filtration Rate 29 mL/min (>60); Est Glom Filt Rate - Afr Amer 35 mL/min (>60); Estimated Creatinine Clearance 22.94 ml/min; Glucose 143 mg/dL (74-106); Phosphorus 3.5 mg/dL (2.5-4.9); Potassium 3.3 mmol/L (3.5-5.1); Sodium Level 139 mmol/L (136-145)
[2019-04-29] MEDS: Aspirin 81 MG TAB.CHEW PO (08:05)
[2019-04-29] MEDS: Ferrous Sulfate 325 MG Tablet PO (08:05)
[2019-04-29] MEDS: Glimepiride 4 MG Tablet PO (08:05)
[2019-04-29] MEDS: Escitalopram Oxalate 10 MG Tablet PO (08:06)
[2019-04-29] MEDS: Pantoprazole Sodium 40 MG Tablet PO (08:06)
[2019-04-29] MEDS: Carvedilol 12.5 MG Tablet PO (08:06)
[2019-04-29] MEDS: Furosemide 20 MG Tablet 60 MG PO (08:06)
[2019-04-29] MEDS: Glucerna Shake 120 ML LIQUID PO ×2 (08:11→16:04)
[2019-04-29 11:05] LABS: Bedside Glucose 175 mg/dL (70-110)
--- NOTE | 2019-04-29 14:23 | CASEMGMT ---
RN CM Assessment Introduced role of RN CM to patient and patient Vicki at bedside.? Patient is alert, oriented and able?to participate in RN CM Assessment. ?Care providers, pharmacy, and demographics verified. Presentation: SOB, Generalized Weakness 4-5days, Chronic Cough Admit Dx: AoC Systolic CHF Re-Admit: No, Inpt 03/29-03/22/19 for CHF Exacerbation Barriers/Issues: None. Patient states that he does not drink much fluids, states consumes salt and is better than he used to be, however indicated patient likes salt and patient states he eats what she makes. has a scale and does weigh himself, states that he had lost 10lbs awhile back and had not gained weight since and has been maintaining his weight. States does take a diuretic. Denies any issues with getting f/u with his providers. PCP: Saman Bagley. just received a letter in the mail that PCP is retiring and was provided a new person that is going to be taking over, states their plan is to stay within that office with the new provider. Specialists: Uro- Dr Tavarez, Cardio- Dr Zabala Preferred Pharmacy: [facility] Insurance: [employer] [facility] Rx Benefit:?Yes LNOK: Vicki Lerma LW/HPOA: Has both, HPOA- Vicki Lerma Living Arrangements:?Lives with in a SS home, has to go down to basement to do laundry 10-12 steps. 1-2 steps to enter home. ADL?s: Independent with ambulation and ADLs Transportation: DME: [employer] HHC: None SNF: None Goal: Home, Does not think will have any needs. Denies any questions/concerns/issues with DC Planning. Aware CM remains available for any emerging needs. DC PLAN: Home with no anticipated needs identified at this time. GABRIELA Colmenares
--- NOTE | 2019-04-29 16:19 | DCINST_ITS ---
- Discharge Diagnoses Current Active Problems: Current Active and Chronic Problems (Last Reviewed 04/28/19 @ 13:44 by Lexy Rosenberg DO) Chronic renal failure, stage 4 (severe) (Chronic) Diabetes mellitus type 2 in nonobese (Chronic) GERD (gastroesophageal reflux disease) (Chronic) Anemia of chronic renal failure, stage 4 (severe) (Chronic) Elevated PSA, between 10 and less than 20 ng/ml (Chronic) You will use the following diet at home:: Cardiac - low cholesterol and LOW SALT, Fluid restricted (specify 2000 mls, 1500 mls) - 40 oz a day Your food should be the consistency of: Regular Your liquids should be the consistency of: Regular/Thin Discharge Activity: Return to Normal Activity Call your doctor if you observe: Fever of 101 or Higher, Shortness of breath, Dizziness, Fainting spells, Swelling in the ankles, Chest pain Additional Instructions: 1. Keep weighing yourself everyday in the morning after you urinate. If the weight increases by 4 lbs in 3-4 days you should take a second lasix in the afternoon until the weight comes down to your baseline. You weighed 137.9lbs at admission to the hospital and 133 at discharge. Your BP was a little high at admission and I increased the dose of the Hydralazine to 25 mg 3 times a day instead of 10 mg. The BP on the day of DC is very good. Pending Tests on Discharge: none Allergies/Adverse Reactions: Allergies No Known Allergies Allergy (Verified 04/11/19 11:46) Medications to take at Discharge Glimepiride 4 mg PO DAILY 04/26/14 Aspirin [Aspirin, Baby] 81 mg PO DAILY@0800 09/29/14 escitalopram 10 mg tablet 10 mg PO DAILY 30 Days #30 tab 02/04/18 pantoprazole 40 mg tablet,delayed release 40 mg PO DAILY 30 Days #30 tab 02/07/18 Ferrous Sulfate [Iron] 325 mg PO DAILY 03/19/19 Atorvastatin Calcium 80 mg PO QHS 04/28/19 Carvedilol [Coreg (Beta Demetrio)] 12.5 mg PO BID 04/28/19 Furosemide [Lasix] 60 mg PO DAILY 04/28/19 hydrALAZINE [Apresoline] 25 mg PO TID #90 tab 04/29/19 The following prescriptions were given: hydrALAZINE [Apresoline] 25 mg PO TID #90 tab Transmission Status: Pending to [facility] Primary Care Physician: Saman Bagley MD [Primary Care Provider] - Please follow up with your Primary Care Physician in: 1 week Test Results: Test results from this visit will be discussed in further detail at your follow- up appointment, if applicable. Please Follow Up With: Napoleon Zabala MD When: 1 month Proposed Discharge Date: 04/29/19
--- NOTE | 2019-04-29 17:47 | PCM.DC.SUM ---
Discharge Date and Diagnosis - Problem List Patient Problems: Active and Suspected Problems (Last Reviewed 04/28/19 @ 13:44 by Lexy Rosenberg DO) Hypokalemia (Acute) Date of Admission: 04/28/19 Date of Discharge: 04/29/19 - Primary Discharge Diagnosis Active and Suspected Problems (Last Reviewed 04/28/19 @ 13:44 by Lexy Rosenberg DO) Acute on chronic systolic congestive heart failure Hypokalemia (Acute) - Secondary Discharge Diagnosis Chronic Problems (Last Reviewed 04/28/19 @ 13:44 by Lexy Rosenberg DO) Chronic renal failure, stage 4 (severe) (Chronic) Diabetes mellitus type 2 in nonobese (Chronic) GERD (gastroesophageal reflux disease) (Chronic) Anemia of chronic renal failure, stage 4 (severe) (Chronic) Elevated PSA, between 10 and less than 20 ng/ml (Chronic) Right bundle branch block (RBBB) (Chronic) Secondary pulmonary arterial hypertension (Chronic) Essential (primary) hypertension (Chronic) Ischemic cardiomyopathy (Chronic) EF is 15% on 03/19/2019 with severe global hypokinesis of the left ventricle and moderately dilated right ventricle. Atherosclerosis of coronary artery bypass graft without angina pectoris (Chronic) CABG x 3: FULTON-distal D1, SVG-OM, SVG-Distal PDA 04/30/2014 HLD (hyperlipidemia) (Chronic) Hospital Course and Treatment Imaging Results: Clinical Impression(s) from Imaging Studies Chest X-Ray 04/28/19 09:54 IMPRESSION: Cardiomegaly and vascular congestion with blunting of the left costophrenic angle. Electronically Signed: Raheel Ortega, at 10:25 EDT , Service support , Laboratory Results - last 24 hr 04/28/19 04/28/19 04/29/19 15:50 22:08 06:15 Sodium 139 Potassium 3.3 L Chloride 108 H Carbon Dioxide 26.0 Anion Gap 5 BUN 28 H Creatinine 2.33 H Estim Creat Clear Calc 22.94 Est GFR (MDRD) Af Amer 35 L Est GFR (MDRD) Non-Af 29 L BUN/Creatinine Ratio 12.0 Glucose 143 H Calcium 8.6 Phosphorus 3.5 Magnesium 2.0 Urine Color Straw Urine Clarity Clear Urine pH 6.5 Ur Specific [place] 1.005 Urine Protein 15 H Urine Glucose (UA) Normal Urine Ketones Negative Urine Occult Blood Negative Urine Nitrite Negative Urine Bilirubin Negative Urine Urobilinogen Normal Ur Leukocyte Esterase Negative Urine RBC 0 SEEN Urine WBC 0 SEEN Ur Squamous Epith Cells 0 SEEN Urine Bacteria 0 SEEN Urine Mucus 0 SEEN POC Glucose 240 H 04/29/19 04/29/19 06:38 11:01 Sodium Potassium Chloride Carbon Dioxide Anion Gap BUN Creatinine Estim Creat Clear Calc Est GFR (MDRD) Af Amer Est GFR (MDRD) Non-Af BUN/Creatinine Ratio Glucose Calcium Phosphorus Magnesium Urine Color Urine Clarity Urine pH Ur Specific [place] Urine Protein Urine Glucose (UA) Urine Ketones Urine Occult Blood Urine Nitrite Urine Bilirubin Urine Urobilinogen Ur Leukocyte Esterase Urine RBC Urine WBC Ur Squamous Epith Cells Urine Bacteria Urine Mucus POC Glucose 138 H 175 H None Operations: None Procedures: None Summary of Care Provided: The patient is a 73 year old M with a past medical history of hypertension, hyperlipidemia, diabetes mellitus type 2, chronic renal failure stage IV, anemia of chronic renal failure, coronary artery disease with history of CABG, elevated PSA and severe cardiomyopathy with a 15% ejection fraction in March 2019 who presented to the emergency department at [facility] on 04/28/2019 complaining of increasing shortness of breath with exertion, orthopnea and dry cough when he lies down at night. His weight ranges between 131 and 135 and he thinks it was 134 on 04/27/2019. It was 137.9 on PCU. He was admitted to the hospital in early March 2019 for acute on chronic congestive heart failure and at that time Lasix was increased to 60 mg daily and hydralazine was added to his drug regimen. He has been compliant with his medications. He also told me he feels lightheaded when standing at times and his legs feel weak. He has not noticed any significant change in his urine output. He has trace lower extremity edema where his socks are tighter. Vital signs of presentation to the emergency room were temperature 98.3, pulse rate 76, blood pressure 105/49, respiratory rate 15 and he was 95 to 96% saturated on room air. BP was 138/71 when he arrived on PCU. White blood cell count was within normal limits with 79% neutrophils. Hemoglobin was 8.4, down from 8.9 in March 2019. Platelets were within normal limits. BUN was 29 and his creatinine was 2.48 which is within his baseline. Potassium was 4.0. Troponin was 0.046 and he chronically has some mildly increased troponin. BNP was 2277 which was up from approximately 1700 in March 2019. Chest x-ray showed increased pulmonary vascular congestion with some blunting of the left costophrenic angle. He was admitted to the hospital with a diagnosis of acute on chronic systolic congestive heart failure. He received 40 mg of IV Lasix in the emergency department and received a second dose of 40 mg in the evening. Hydralazine was increased to 25 mg TID to better control the BP in this pt with a 15% EF. He diuresed well and he was restarted on Lasix 60 mg daily in the AM on 04/29/2019. Repeat lab on 04/29/2019 showed a low potassium at 3.3 and he received potassium supplements. He denied shortness of breath and denied lightheadedness or weakness. He stated his cough had nearly completely resolved. He was discharged home and was given a prescription for hydralazine 25 mg p.o. 3 times daily. He was instructed to continue weighing himself daily and if his weight increases by 4 pounds in 3 to 4 days he should take an extra Lasix in the afternoon until his weight is back to baseline. We reinforced with he and his the need for salt restriction to prevent further episodes of acute congestive heart failure. He was instructed to follow-up with his primary care physician, Dr. Saman Bagley, in [address] Zabala in 1 month. PHYSICAL EXAM: GENERAL: alert, oriented X 3, Cooperative, NAD ORAL: moist mucosa, no mucosal lesions NECK: No JVD, supple, trachea midline LUNGS: persistent coarse crackles in the bases BL that do not change with several deep breaths , symmetric chest expansion, not tachypnea, no conversational dyspnea, no accessory muscle use, able to lay nearly flat in bed with no shortness of breath. HEART: RRR, Normal S1 and S2, no rub, no gallop, no murmur ABDOMEN: soft, NT, ND, BS present, no guarding with palpation EXTREMITIES: no edema, no cyanosis, no calf tenderness SKIN: No rashes, no breakdown NEUROLOGIC: no focal neurologic deficits PSYCH: appropriate, normal affect, pleasant This note was generated with Dragon dictation software. It may contain incorrect words, spelling, and punctuation that were not noted in checking the note before signing. Patient Problems: Active and Suspected Problems (Last Reviewed 04/28/19 @ 13:44 by Lexy Rosenberg DO) Hypokalemia (Acute) - Physical Exam Vital Signs Temp Pulse Resp BP Pulse Ox 98.0 F 58 L 16 116/59 L 94 04/29/19 14:22 04/29/19 15:00 04/29/19 14:22 04/29/19 14:22 04/29/19 14:22 Oxygen Flow Rate (L/min) 1 Oxygen Delivery Method Room Air Weight: 133 lb 9.602 oz Body Mass Index (BMI) 23.6 Finger Stick Blood Glucose 163 Intake and Output for Last 24 Hours 04/27/19 04/28/19 04/29/19 23:59 23:59 23:59 Intake Total 330 / 330 290 / 290 Output Total 1550 / 1550 300 / 300 Balance -1220 / -1220 -10 / -10 Laboratory Tests Past 24 Hrs 04/28/19 04/29/19 15:50 06:15 Sodium 139 Potassium 3.3 L Chloride 108 H Carbon Dioxide 26.0 Anion Gap 5 BUN 28 H Creatinine 2.33 H Estim Creat Clear Calc 22.94 Est GFR (MDRD) Af Amer 35 L Est GFR (MDRD) Non-Af 29 L BUN/Creatinine Ratio 12.0 Glucose 143 H Calcium 8.6 Phosphorus 3.5 Magnesium 2.0 Urine Color Straw Urine Clarity Clear Urine pH 6.5 Ur Specific [place] 1.005 Urine Protein 15 H Urine Glucose (UA) Normal Urine Ketones Negative Urine Occult Blood Negative Urine Nitrite Negative Urine Bilirubin Negative Urine Urobilinogen Normal Ur Leukocyte Esterase Negative Urine RBC 0 SEEN Urine WBC 0 SEEN Ur Squamous Epith Cells 0 SEEN Urine Bacteria 0 SEEN Urine Mucus 0 SEEN POC Glucose 04/29/19 04/29/19 04/28/19 11:01 06:38 22:08 POC Glucose 175 H 138 H 240 H Discharge Activity: Return to Normal Activity Call your doctor if you observe: Fever of 101 or Higher, Shortness of breath, Dizziness, Fainting spells, Swelling in the ankles, Chest pain Home Medications: Medications to take at Discharge Glimepiride 4 mg PO DAILY 04/26/14 Aspirin [Aspirin, Baby] 81 mg PO DAILY@0800 09/29/14 escitalopram 10 mg tablet 10 mg PO DAILY 30 Days #30 tab 02/04/18 pantoprazole 40 mg tablet,delayed release 40 mg PO DAILY 30 Days #30 tab 02/07/18 Ferrous Sulfate [Iron] 325 mg PO DAILY 03/19/19 Atorvastatin Calcium 80 mg PO QHS 04/28/19 Carvedilol [Coreg (Beta Demetrio)] 12.5 mg PO BID 04/28/19 Furosemide [Lasix] 60 mg PO DAILY 04/28/19 hydrALAZINE [Apresoline] 25 mg PO TID #90 tab 04/29/19 Following Prescrptions Were Given to Patient: hydrALAZINE [Apresoline] 25 mg PO TID #90 tab Transmission Status: Received by [facility]30 Primary Care Physician: Saman Bagley MD [Primary Care Provider] - Please follow up with your Primary Care Physician in: 1 week Please Follow Up With: Napoleon Zabala MD When: 1 month Disposition: Home Minutes spent on discharge:: 30 Patient Condition:: Good Medical Necessity - Tobacco Use Smoking Status: Never smoker Tobacco Use: Non-smoker Meaningful Use Info Meaningful Use Diagnoses (Choose all that apply): CHF - CHF ELDER/ARB ordered at discharge?: No Reason ELDER/ARB not ordered?: Worsening renal disease Documented LVEF (%): 15 Code Visit OBSV E&M: 44744 Observation care discharge
== END 2019-04-29 17:23 | disposition home or self-care (01) ==
LOC: ED 10:00 → PCU 11:38
PROVIDERS: Admitting Provider Internal Medicine; Emergency Provider Emergency Medicine; Family Provider Family Medicine; PCP Family Medicine; Referring Provider Internal Medicine; Visit Provider Internal Medicine
DX: E87.6 Hypokalemia (principal); I13.0 Hypertensive heart and chronic kidney disease with heart failure and stage 1 through stage 4 chronic kidney disease, or unspecified chronic kidney disease; I50.23 Acute on chronic systolic (congestive) heart failure; N18.4 Chronic kidney disease, stage 4 (severe); E11.22 Type 2 diabetes mellitus with diabetic chronic kidney disease; K21.9 Gastro-esophageal reflux disease without esophagitis; E78.5 Hyperlipidemia, unspecified; I25.5 Ischemic cardiomyopathy; I27.21 Secondary pulmonary arterial hypertension; I45.10 Unspecified right bundle-branch block; D63.1 Anemia in chronic kidney disease; I25.810 Atherosclerosis of coronary artery bypass graft(s) without angina pectoris; Z79.899 Other long term (current) drug therapy; Z79.82 Long term (current) use of aspirin; Z79.84 Long term (current) use of oral hypoglycemic drugs
CPT/HCPCS: 36415; 71045; 80048; 80053; 81001; 82962; 83735; 83880; 84100; 84484; 85025; 93005; 96372; 96374; 96376; 97802; 99218; 99284; A4216; G0378; J1940

== ENCOUNTER → 2019-05-19 16:30 | Outpatient (CLI) | payer MEDICARE, SELFPAY ==
[2019-05-19 15:44] VITALS: BMI 24.0
--- NOTE | 2019-05-19 16:35 | RAD_ITS ---
STUDY: X-RAY CHEST REASON FOR EXAM: Male, 73 years old. Cough TECHNIQUE: Frontal view of the chest was performed COMPARISON: 28 April 2019 FINDINGS: There is no pneumothorax or pneumonia. There is mild hepatomegaly with mild pulmonary edema and small left pleural effusion. Sternotomy wires and coronary bypass clips are in place. Osseous structures are intact. Appearance is similar to prior. [ ] RAD/Chest PA and Lateral IMPRESSION: 1. No change since prior. 2. Cardiomegaly with mild heart failure. Electronically Signed: Salomon Casiano, at 18:43 EDT Tel , Service support ,
== END ==
PROVIDERS: Family Provider Family Medicine; PCP Family Medicine; Referring Provider Nurse Practitioner Family; Visit Provider Nurse Practitioner Family
DX: I50.23 Acute on chronic systolic (congestive) heart failure (principal); I25.5 Ischemic cardiomyopathy; R05 Cough
CPT/HCPCS: 71046

== ENCOUNTER 2019-05-20 16:50 | Emergency (ER) | payer MEDICARE, SELFPAY ==
[2019-05-19 15:44] VITALS: BMI 24.0
[2019-05-20 16:51] VITALS: BP 114/75; PULSE 72; RESP 16; TEMP 36.1; O2SAT 95; BMI 22.6
--- NOTE | 2019-05-20 17:10 | RAD_ITS ---
STUDY: X-RAY CHEST REASON FOR EXAM: Male, 73 years old. Dizziness TECHNIQUE: Frontal and lateral views of the chest. COMPARISON: 05/19/2019 FINDINGS: Median sternotomy wires and CABG clips. The lungs are clear and expanded. Stable small left pleural effusion. Stable cardiomediastinal silhouette. Normal mediastinum and clay. Normal visualized pulmonary arteries. Normal visualized aortic arch and descending thoracic aorta. Normal visualized thoracic spine. Normal visualized ribs, clavicles, and shoulders. Carotid calcifications. There is no demonstrated abnormality of the visualized soft tissue structures of the upper abdomen. RAD/Chest PA and Lateral IMPRESSION: Stable small left pleural effusion. Electronically Signed: Paul Mcmahan MD at 17:28 EDT Tel , Service support ,
--- NOTE | 2019-05-20 17:57 | ED.RN ---
STATES HE IS GOING TO CALL PCP TOMORROW
== END 2019-05-20 18:00 | disposition left against medical advice (07) ==
LOC: ED 18:08
PROVIDERS: Emergency Provider Emergency Medicine; Family Provider Family Medicine; PCP Family Medicine
DX: R42 Dizziness and giddiness (principal); Z53.21 Procedure and treatment not carried out due to patient leaving prior to being seen by health care provider
CPT/HCPCS: 71046

== ENCOUNTER 2019-05-20 21:49 | Emergency (ER) | payer MEDICARE, SELFPAY ==
[2019-05-20 16:51] VITALS: BMI 22.6
[2019-05-20 21:50] VITALS: BP 126/63; PULSE 77; RESP 15; TEMP 36.7; O2SAT 96; BMI 23.6
--- NOTE | 2019-05-20 22:53 | EKG12_ITS ---
Test Reason : Blood Pressure : / mmHG Vent. Rate : 072 BPM Atrial Rate : 072 BPM P-R Int : 166 ms QRS Dur : 146 ms QT Int : 460 ms P-R-T Axes : 055 097 -28 degrees QTc Int : 503 ms Sinus rhythm with frequent Premature ventricular complexes Right bundle branch block Septal infarct , age undetermined Abnormal ECG Confirmed by LUIGI GALVAN ([id number]), editorial clerk NATALY NATHAN ([id number]) on 05/21/2019 2:28:59 PM Referred By: Saman Guillen Confirmed By:LUIGI GALVAN
--- NOTE | 2019-05-20 22:56 | ED.DCSUM_ITS ---
- ER Visit Summary Date of Service: 05/20/19 Chief Complaint: Multiple complaints History of Present Illness: The patient is a 73 M presenting with multiple complaints. He states that he has had dizziness and lightheadedness. He has been able to walk without difficulty. He has not fallen. He denies vertigo, weakness, numbness. He denies shortness of breath or chest pain. He has had a cough. He denies fever. He denies abdominal pain. He states that he has lower extremity swelling. He was seen by cardiology yesterday and had an echocardiogram and chest x-ray ordered. He had the chest x-ray today. He complains of decreased sleep. He also complains of anxiety. Physical Examination: Vitals are stable. Patient is afebrile. Alert no acute distress. HEENT exam is unremarkable. Neck is supple. Lungs are clear and equal bilaterally. Heart is regular rate and rhythm. Abdomen is soft nontender nondistended. Extremities mild symmetric edema Skin is warm and dry. No focal neurologic deficit. Remainder of exam is unremarkable. Emergency Department Course and Treatment: Chest x-ray from earlier today shows stable left pleural effusion. EKG is sinus with frequent PVCs rate of 72. CBC shows hemoglobin 8.2. Chemistries show glucose 182, BUN 31, creatinine 2.56. Total bili 1.4. Urinalysis unremarkable. Troponin 0.071. Patient was given Ativan on arrival. He is requesting discharge home. His troponin is indeterminate, I recommend admission for further testing. Patient declines admission. He understands the risks including VT and . He will sign out AGAINST MEDICAL ADVICE. Family is at bedside. He is advised if his symptoms worsen he should return to the ED. Advised to follow-up with primary care physician. Disposition: Left AGAINST MEDICAL ADVICE Impression: Dizziness, indeterminate troponin This note was generated with Popcorn5 dictation software. It may contain incorrect words, spelling, and punctuation that were not noted in review of the chart prior to signing ED Disposition - Plan for ED Patient: Disposition: Home or Assisted Living Instructions: DIZZINESS, Unk Cause Referrals: Saman Bagley MD [Primary Care Provider] -
[2019-05-20] MEDS: LORazepam 0.5 MG Tablet PO (22:59)
[2019-05-20 23:08] LABS: Absolute Lymphocyte Count 0.94 X10^3/uL (0.83-4.51); Absolute Neutrophil Count 5.9 X10^3/uL (2.0-7.7); Basophil# 0.03 X10^3/uL; Basophil% 0.4 % (0-1); Eosinophil# 0.08 X10^3/uL; Hematocrit 25.7 % (40-54); Hemoglobin 8.2 g/dL (13.0-16.5); Lymphocyte # 0.94 X10^3/ul (4.0); Lymphocyte % 12.2 % (19-41); Mean Corp Hgb Conc 31.9 g/dL (32-36); Mean Corpuscular Hgb 28.6 pg (27.0-32.0); Mean Corpuscular Volume 89.5 fL (80-94); Mean Platelet Vol. 11.5 fl (6.2-12.0); Monocyte# 0.77 X10^3/uL; NRBC Flagged by Analyzer 0 % (0-5); Neutrophil # 5.87 X10^3/uL (2.7-7.7); Platelet Count 255 K/mm3 (150-450); RBC Distribution Width CV 14.9 % (11.6-14.6); RBC Distribution Width SD 48.5 fl (35.1-43.9); Red Blood Count 2.87 M/mm3 (4.6-6.2); White Blood Count 7.7 K/mm3 (4.4-11.0)
[2019-05-20 23:21] LABS: Red Blood Cells-Urine 0 SEEN /hpf (0-5)
[2019-05-20 23:24] LABS: Color, Urine Yellow (Yellow); Glucose, Dipstick Normal (Normal); Ketone-Dipstick Negative (Negative); Leukocyte Esterase-Dipstick 25 /ul (Negative); Nitrite-Dipstick Negative (Negative); Occult Blood-Urine Negative /ul (Negative); Protein-Dipstick 100 mg/dl (Negative); Urine Bilirubin Dipstick Negative (Negative); Urine Clarity Clear (Clear); Urine Urobilinogen Normal (Normal); Urine pH 6.5 (5.0 - 8.0)
[2019-05-20 23:27] LABS: ALB/GLOB Ratio 0.8 RATIO (0.9-2.4); AST(SGOT) 16 U/L (15-37); Alanine Aminotransfer ALT/SGPT 15 U/L (16-61); Albumin, Serum 3.4 g/dL (3.2-5.0); Alkaline Phosphatase 102 U/L (45-117); Anion Gap 9 (5-15); BUN 31 mg/dL (7-18); BUN/Creat Ratio 12.1 RATIO (10-20); Calcium,Total 8.8 mg/dL (8.5-10.1); Chloride 104 mmol/L (98-107); Creatinine, Serum 2.56 mg/dL (0.70-1.30); EST Glomerular Filtration Rate 26 mL/min (>60); Est Glom Filt Rate - Afr Amer 32 mL/min (>60); Estimated Creatinine Clearance 21.69 ml/min; Glucose 182 mg/dL (74-106); Protein, Total 7.4 g/dL (6.4-8.2); Sodium Level 138 mmol/L (136-145)
[2019-05-20 23:36] LABS: Bacteria RARE /hpf (None Seen); White Blood Cells 0-5 SEEN /hpf (0-5)
[2019-05-20 23:37] LABS: Mucous, Urine 1+ /hpf (<or=2+); Squamous Epithelial Cells - UA 0-5 SEEN /hpf (0-5)
[2019-05-21] VITALS: BP 140/69; PULSE 74; RESP 16; O2SAT 97
[2019-05-21 01:09] VITALS: BP 147/66; PULSE 82; RESP 16; O2SAT 94
--- NOTE | 2019-05-21 01:45 | ED.DEP ---
ED Disposition - Plan for ED Patient: Instructions: DIZZINESS, Unk Cause Referrals: Saman Bagley MD [Primary Care Provider] -
[2019-05-21 01:52] VITALS: BP 142/70; PULSE 80; RESP 16; O2SAT 93
== END 2019-05-21 01:53 | disposition left against medical advice (07) ==
PROVIDERS: Emergency Provider Emergency Medicine; Family Provider Family Medicine; PCP Family Medicine
DX: R42 Dizziness and giddiness (principal); F41.9 Anxiety disorder, unspecified; I45.10 Unspecified right bundle-branch block; I25.10 Atherosclerotic heart disease of native coronary artery without angina pectoris; D64.9 Anemia, unspecified; I49.3 Ventricular premature depolarization; I13.0 Hypertensive heart and chronic kidney disease with heart failure and stage 1 through stage 4 chronic kidney disease, or unspecified chronic kidney disease; E11.22 Type 2 diabetes mellitus with diabetic chronic kidney disease; N18.9 Chronic kidney disease, unspecified; I50.9 Heart failure, unspecified; M79.89 Other specified soft tissue disorders; K21.9 Gastro-esophageal reflux disease without esophagitis; Z79.84 Long term (current) use of oral hypoglycemic drugs; Z79.82 Long term (current) use of aspirin; Z79.899 Other long term (current) drug therapy; Z95.1 Presence of aortocoronary bypass graft
CPT/HCPCS: 71046; 80053; 81001; 84484; 85025; 93005; 99285; A4216

== ENCOUNTER → 2019-05-23 08:20 | Outpatient (CLI) | payer MEDICARE, SELFPAY ==
[2019-05-20 21:50] VITALS: BMI 23.6
[2019-05-23 10:19] LABS: Absolute Lymphocyte Count 0.91 X10^3/uL (0.83-4.51); Absolute Neutrophil Count 4.9 X10^3/uL (2.0-7.7); Basophil# 0.04 X10^3/uL; Basophil% 0.6 % (0-1); Eosinophil# 0.14 X10^3/uL; Eosinophils% 2.1 % (0-5); Hematocrit 25.7 % (40-54); Lymphocyte # 0.91 X10^3/ul (4.0); Lymphocyte % 13.6 % (19-41); Mean Corp Hgb Conc 31.1 g/dL (32-36); Mean Corpuscular Hgb 27.7 pg (27.0-32.0); Mean Corpuscular Volume 88.9 fL (80-94); Mean Platelet Vol. 11.8 fl (6.2-12.0); Monocyte# 0.71 X10^3/uL; Monocyte% 10.6 % (0-10); NRBC Flagged by Analyzer 0 % (0-5); Neutrophil # 4.87 X10^3/uL (2.7-7.7); Neutrophil % 72.7 % (47-70); Platelet Count 252 K/mm3 (150-450); RBC Distribution Width CV 15.3 % (11.6-14.6); RBC Distribution Width SD 49.6 fl (35.1-43.9); Red Blood Count 2.89 M/mm3 (4.6-6.2); White Blood Count 6.7 K/mm3 (4.4-11.0)
[2019-05-23 10:48] LABS: Hemoglobin A1c 7.5 % (4.2-6.3)
[2019-05-23 10:49] LABS: Anion Gap 10 (5-15); BUN 31 mg/dL (7-18); BUN/Creat Ratio 12.2 RATIO (10-20); Calcium,Total 8.6 mg/dL (8.5-10.1); Chloride 107 mmol/L (98-107); Creatinine, Serum 2.54 mg/dL (0.70-1.30); EST Glomerular Filtration Rate 26 mL/min (>60); Est Glom Filt Rate - Afr Amer 32 mL/min (>60); Glucose 120 mg/dL (74-106); Potassium 3.7 mmol/L (3.5-5.1); Sodium Level 141 mmol/L (136-145)
== END ==
PROVIDERS: Nurse Practitioner Family; Family Provider Family Medicine; PCP Family Medicine; Referring Provider Family Medicine; Visit Provider Family Medicine
DX: I50.23 Acute on chronic systolic (congestive) heart failure (principal); E11.22 Type 2 diabetes mellitus with diabetic chronic kidney disease; N18.3 Chronic kidney disease, stage 3 (moderate)
CPT/HCPCS: 36415; 80048; 83036; 83880; 85025

== ENCOUNTER 2019-05-26 18:15 | Observation (INO) | payer MEDICARE, SELFPAY ==
[2019-05-26 18:15] VITALS: BP 115/60; PULSE 68; RESP 18; TEMP 36.6; O2SAT 96; BMI 23.3
--- NOTE | 2019-05-26 18:46 | CT_ITS ---
STUDY: CT BRAIN WITHOUT CONTRAST REASON FOR EXAM: Male, 73 years old. Headache RADIATION DOSAGE (If Supplied By Facility): DLP = ( 745.49 ) mGycm TECHNIQUE: Transaxial CT imaging of the brain was performed without administration of intravenous contrast material. Individualized dose optimization techniques were used for this CT. COMPARISON: None. FINDINGS: There is no acute bleed or infarct. There are chronic ischemic and atrophic changes. The ventricles are normal in configuration. There is no hydrocephalus. A right maxillary sinus retention cyst is present. The mastoid air cells are well aerated. There is no skull fracture. CT/Brain/Head without Contrast IMPRESSION: No acute intracranial abnormality. Chronic ischemic and atrophic changes. Right maxillary sinus retention cyst. Electronically Signed: Gary Sarmiento, at 19:43 EDT Tel , Service support ,
--- NOTE | 2019-05-26 18:46 | EKG12_ITS ---
Test Reason : Blood Pressure : / mmHG Vent. Rate : 065 BPM Atrial Rate : 065 BPM P-R Int : 154 ms QRS Dur : 162 ms QT Int : 470 ms P-R-T Axes : 073 121 -63 degrees QTc Int : 488 ms Normal sinus rhythm Right bundle branch block T wave abnormality, consider inferolateral ischemia Abnormal ECG Confirmed by SEBASTIAN CIFUENTES, AYANNA ([id number]), technical editor NATALY NATHAN ([id number]) on 05/28/2019 9:03:43 AM Referred By: Confirmed By:AYANNA CORTES MD
--- NOTE | 2019-05-26 18:47 | ED.DCSUM_ITS ---
History of Present Illness Chief Complaint: Headache Informant: Patient, Significant Other Onset: Weeks - Greater than 1 week of vertigo described as spinning lasting hours. He had several episodes. Context: Sudden Onset Timing: Intermittent Quality and Location: Difficulty with Ambulation Onset: 1.5 weeks ago Current Severity: Mild Maximum Severity: Severe Worsened by: Nothing Relieved by: Nothing Associated Symptoms: Nausea. Negative for: Headache, Vomiting, Chest Pain Narrative: Patient is an elderly male. He has a poor informant. states he has had significant decline in his recall of events over the past 6 months. He has told his physician. No work-up was undertaken. He presently states he does not feel well. He states his stomach feels nauseous. He is no longer spinning. He has complained of binocular blurred vision. He denied double vision, partial loss or complete loss of vision. Prior similar symptoms: No Recent Illness/Hospitalization: No - Past Medical History (1) Anemia of chronic renal failure, stage 4 (severe) Status: Chronic (2) Atherosclerosis of coronary artery bypass graft without angina pectoris Status: Chronic Comment: CABG x 3: FULTON-distal D1, SVG-OM, SVG-Distal PDA 04/30/2014 (3) Diabetes mellitus type 2 in nonobese Status: Chronic (4) Elevated PSA, between 10 and less than 20 ng/ml Status: Chronic (5) Essential (primary) hypertension Status: Chronic (6) GERD (gastroesophageal reflux disease) Status: Chronic (7) HLD (hyperlipidemia) Status: Chronic (8) Ischemic cardiomyopathy Status: Chronic Comment: EF is 15% on 03/19/2019 with severe global hypokinesis of the left ventricle and moderately dilated right ventricle. (9) Secondary pulmonary arterial hypertension Status: Chronic Past Medical History - Allergies and Home Meds Allergies/Adverse Reactions: Allergies No Known Allergies Allergy (Verified 05/26/19 18:18) Primary Care Physician: Saman Bagley MD [Primary Care Provider] - Prior records reviewed: Yes Surgical History: noncontributory, coronary bypass surgery, - - CABG x 3, R inguinal hernia repair. Lives: Spouse/ Significant Other Smoking Status: Never smoker Alcohol: None Drugs: None - Family History Paternal Family History: Family History (Last Reviewed 04/28/19 @ 13:45 by Lexy Rosenberg DO) Brother CAD (coronary artery disease) Family History: Reports: - - Patient notes father with a history of polio with debility secondary to this but otherwise had been healthy and in his 90s. Maternal Family History: Family History (Last Reviewed 04/28/19 @ 13:45 by Lexy Rosenberg DO) Brother CAD (coronary artery disease) Family History: Reports: Heart Disease Sibling Family History: Family History (Last Reviewed 04/28/19 @ 13:45 by Lexy Rosenberg DO) Brother CAD (coronary artery disease) Family History: Reports: Heart Disease Review of Systems General: Denies: Chills, Fever, Sweats Eyes: Reports: Visual changes - bilaterally, Blurred Vision - bilaterally. Denies: Diplopia ENT: Denies: Bilateral ear pain, Rhinorrhea, Sore throat Cardiovascular: Denies: Chest pain, Palpitations Respiratory: Denies: Dyspnea, Cough, Dyspnea on exertion Gastrointestinal: Reports: Nausea. Denies: Abdominal pain, Vomiting, Diarrhea, Constipation, Melena, Hematochezia Genitourinary: Denies: Dysuria, Hematuria, Frequency Musculoskeletal: Denies: Myalgias, Arthralgias, Neck pain, Back pain, Swelling, Extremity Pain Skin: Denies: Rash, Wounds Neurological: Reports: Weakness, Numbness. Denies: Headache Endocrine: Denies: Polyuria, Polydipsia Hematologic: Denies: Easy bruising, Easy bleeding Allergy: Denies: Uticaria, Swelling of the mouth, Swelling of the tongue STROKE Vital Signs/Narrative: Vital Signs Temp Pulse Resp BP Pulse Ox 05/26/19 18:15 97.9 F 68 18 115/60 96 - NIHSS Initial 1a Level of Consciousness: 0 1b LOC Questions (Score 2 if aphasic/stupor): 2 1c LOC Commands (Only score 1st attempt): 0 2 Best Gaze (If aphasic, use reflexive mvmts.): 0 3 Visual: 0 4 Facial Palsy: 0 5 Motor Arm Right (UN = amputation/fusion): 0 5 Motor Arm Left: 0 6 Motor Leg Right: 0 6 Motor Leg Left: 0 7 Limb ataxia (Only + if out of proportion): 0 8 Sensory (Aphasia/stupor=0 or 1, coma=2): 0 9 Best Language: 0 10 Dysarthria (mute, coma=2, intubated=UN): 0 11 Extinction and Inattention (only scored if +): 0 Total Score: 2 General: Well nourished, Well developed Head: Normocephalic, Atraumatic Eyes: Perrl, EOMI, Pale conjunctiva, Scleral icterus, - - Posterior 1 to 2 mm and reactive. ENT: Moist mucous membranes, No rhinorrhea, TM's clear Neck: Supple, Nontender, No lymphadenopathy, No JVD Cardiovascular: Regular rate, Regular rhythm, No murmurs, Normal S1, Normal S2 Respiratory: No distress, CTA bilaterally, Chest nontender Abdomen: Soft, Nontender, Nondistended, Normal bowel sounds Rectal: Deferred Back: Nontender, Normal Inspection. Negative for: CVA tenderness Extremities: Nontender, No edema Skin: Normal color, No rash, No Trauma. Negative for: Cyanosis, Diaphoresis, Jaundice Neurological: Alert, Cranial nerves II-XII grossly intact, Normal Strength, Normal Sensation, Normal DTR - There is no clonus equivocal Babinski left, - - Memory is impaired. Negative for: Oriented x3 Psychological: Normal affect, Normal Mood Diagnostic/Tx/Re-eval Impressions Brain CT 05/26/19 18:46 IMPRESSION: No acute intracranial abnormality. Chronic ischemic and atrophic changes. Right maxillary sinus retention cyst. Electronically Signed: Gary Guillermina, at 19:43 EDT Tel , Service support , 05/26/19 18:46 Brain/Head without Contrast [CT] Stat Laboratory Results 05/26/19 05/26/19 05/26/19 19:00 19:00 19:00 WBC 10.1 RBC 3.05 L Hgb 8.7 L Hct 27.6 L MCV 90.5 MCH 28.5 MCHC 31.5 L RDW Std Deviation 52.3 H RDW Coeff of Milad 16.0 H Plt Count 255 MPV 11.2 Immature Gran % (Auto) 0.600 Neut % (Auto) 83.9 H Lymph % (Auto) 6.3 L [place] % (Auto) 7.8 Eos % (Auto) 1.1 Baso % (Auto) 0.3 Absolute Neuts (auto) 8.5 H Absolute Lymphs (auto) 0.64 L Nucleated RBC % 0 PT 13.9 INR 1.1 APTT 34.4 Sodium 135 L Potassium 4.0 Chloride 103 Carbon Dioxide 24.0 Anion Gap 8 BUN 26 H Creatinine 2.45 H Estim Creat Clear Calc 21.81 Est GFR (MDRD) Af Amer 33 L Est GFR (MDRD) Non-Af 28 L BUN/Creatinine Ratio 10.6 Glucose 193 H Calcium 9.2 Troponin I 0.022 - Medical Decision Making Stroke Team Activated: No Reviewed Inclusion/Exclusion criteria: No Was Patient considered for Endovascular Intervention?: No IV Alteplase (t-PA) Administered: No With altered mental status that started 6 months ago concerned patient may have undiagnosed dementia. With him reporting vertigo this may represent vertebrobasilar insufficiency, peripheral vertigo. Doubt full since this is not positional and last for hours. History is comp gated by the fact the patient's mental status is altered and he is unable to give specifics. Stroke work-up was undertaken. Will need to assess for metabolic causes as well. Hospitalist has been paged for further work-up of patient's vertigo. ED Disposition - Plan for ED Patient: Disposition: Acute Care Hospital [facility] Diagnosis: Vertigo Referrals: Saman Bagley MD [Primary Care Provider] -
[2019-05-26 19:06] VITALS: O2SAT 96
[2019-05-26 19:27] LABS: Absolute Lymphocyte Count 0.64 X10^3/uL (0.83-4.51); Absolute Neutrophil Count 8.5 X10^3/uL (2.0-7.7); Basophil# 0.03 X10^3/uL; Basophil% 0.3 % (0-1); Eosinophil# 0.11 X10^3/uL; Eosinophils% 1.1 % (0-5); Hematocrit 27.6 % (40-54); Hemoglobin 8.7 g/dL (13.0-16.5); Lymphocyte # 0.64 X10^3/ul (4.0); Lymphocyte % 6.3 % (19-41); Mean Corp Hgb Conc 31.5 g/dL (32-36); Mean Corpuscular Hgb 28.5 pg (27.0-32.0); Mean Corpuscular Volume 90.5 fL (80-94); Mean Platelet Vol. 11.2 fl (6.2-12.0); Monocyte# 0.79 X10^3/uL; Monocyte% 7.8 % (0-10); NRBC Flagged by Analyzer 0 % (0-5); Neutrophil # 8.49 X10^3/uL (2.7-7.7); Neutrophil % 83.9 % (47-70); Platelet Count 255 K/mm3 (150-450); RBC Distribution Width SD 52.3 fl (35.1-43.9); Red Blood Count 3.05 M/mm3 (4.6-6.2); White Blood Count 10.1 K/mm3 (4.4-11.0)
[2019-05-26 19:32] LABS: International Normalized Ratio 1.1; Prothrombin Time (Protime)PT. 13.9 SECONDS (11.7-14.9)
[2019-05-26 19:33] LABS: Partial Thromboplast Time 34.4 Seconds (24.1-36.2)
[2019-05-26 19:38] LABS: Anion Gap 8 (5-15); BUN 26 mg/dL (7-18); BUN/Creat Ratio 10.6 RATIO (10-20); Calcium,Total 9.2 mg/dL (8.5-10.1); Chloride 103 mmol/L (98-107); Creatinine, Serum 2.45 mg/dL (0.70-1.30); EST Glomerular Filtration Rate 28 mL/min (>60); Est Glom Filt Rate - Afr Amer 33 mL/min (>60); Estimated Creatinine Clearance 21.81 ml/min; Glucose 193 mg/dL (74-106); Sodium Level 135 mmol/L (136-145)
[2019-05-26 21:51] VITALS: BP 143/66; PULSE 74; RESP 18; O2SAT 95
[2019-05-26 21:56] VITALS: PULSE 75; RESP 18
--- NOTE | 2019-05-26 22:13 | HP.PCM_ITS ---
Problem List (1) Vertigo Status: Acute (2) Chronic renal failure, stage 4 (severe) Status: Chronic (3) Diabetes mellitus type 2 in nonobese Status: Chronic (4) GERD (gastroesophageal reflux disease) Status: Chronic (5) Anemia of chronic renal failure, stage 4 (severe) Status: Chronic (6) Elevated PSA, between 10 and less than 20 ng/ml Status: Chronic (7) Acute on chronic systolic (congestive) heart failure Status: Acute (8) Essential (primary) hypertension Status: Chronic (9) H/O coronary artery bypass surgery Status: Resolved Comment: CABG x 3: FULTON-distal D1, SVG-OM, SVG-Distal PDA 04/30/2014 (10) HLD (hyperlipidemia) Status: Chronic Qualifiers: Hyperlipidemia type: pure hypercholesterolemia Qualified Code(s): E78.00 - Pure hypercholesterolemia, unspecified; E78.0 - Pure hypercholesterolemia History of Present Illness Date of Admission: 05/26/19 Chief Complaint: headache, dizziness The patient is a 73 year old male patient with a significant past medical history coronary artery disease status post CABG who presents the emergency room with chief complaint of headache and dizziness (the second ER visit 2 weeks). The patient is a poor historian, his describes cognitive decline over the past 6 months. He recently complains of random episodes or attacks of dizziness associated with nausea and imbalance. He denies falling or injury. Currently he is without dizziness during my examination. But he does complain of anxiety over staying here overnight. CT scan is negative for acute hemorrhage or neurologic deficits at this time. Laboratory studies are remarkable for elevated creatinine consistent with his chronic kidney disease and anemia also associated with chronic disease he will be admitted overnight for observation with neuro checks being done. May need case management to assist with discharge planning as it seems the patient may have undiagnosed dementia and there may be needs at home that are not able to be met by the spouse at this time. Past Medical History Past Medical History (Chronic Problems): Chronic Problems (Last Reviewed 04/28/19 @ 13:44 by Lexy Rosenberg DO) Chronic renal failure, stage 4 (severe) (Chronic) Diabetes mellitus type 2 in nonobese (Chronic) GERD (gastroesophageal reflux disease) (Chronic) Anemia of chronic renal failure, stage 4 (severe) (Chronic) Elevated PSA, between 10 and less than 20 ng/ml (Chronic) Right bundle branch block (RBBB) (Chronic) Secondary pulmonary arterial hypertension (Chronic) Essential (primary) hypertension (Chronic) Ischemic cardiomyopathy (Chronic) EF is 15% on 03/19/2019 with severe global hypokinesis of the left ventricle and moderately dilated right ventricle. Atherosclerosis of coronary artery bypass graft without angina pectoris (Chronic) CABG x 3: FULTON-distal D1, SVG-OM, SVG-Distal PDA 04/30/2014 HLD (hyperlipidemia) (Chronic) Medical History: Medical History (Last Reviewed 04/28/19 @ 13:44 by Lexy Rosenberg DO) Right bundle branch block (RBBB) (Chronic) I45.10 Secondary pulmonary arterial hypertension (Chronic) I27.21 Acute on chronic systolic (congestive) heart failure (Acute) Onset Date: 03/20/19 I50.23 Essential (primary) hypertension (Chronic) I10 Ischemic cardiomyopathy (Chronic) I25.5 EF is 15% on 03/19/2019 with severe global hypokinesis of the left ventricle and moderately dilated right ventricle. Atherosclerosis of coronary artery bypass graft without angina pectoris (Chronic) I25.810 CABG x 3: FULTON-distal D1, SVG-OM, SVG-Distal PDA 04/30/2014 HLD (hyperlipidemia) (Chronic) E78.5 Anemia D64.9 Bilateral pleural effusion J90 Claudication of both lower extremities I73.9 Type 2 diabetes mellitus E11.9 Dyspnea (Resolved) R06.00 Incarcerated right inguinal hernia (Resolved) K40.30 Allergies No Known Allergies Allergy (Verified 05/26/19 18:18) Home Medications: Ambulatory Orders Medication Instructions Recorded Aspirin [Aspirin, Baby] 81 mg PO DAILY@0800 09/29/14 escitalopram 10 mg tablet 10 mg PO DAILY 30 Days #30 tab 02/04/18 pantoprazole 40 mg tablet,delayed 40 mg PO DAILY 30 Days #30 tab 02/07/18 release Ferrous Sulfate [Iron] 325 mg PO DAILY@1200 03/19/19 Atorvastatin Calcium 80 mg PO QHS 04/28/19 Carvedilol [Coreg (Beta Demetrio)] 12.5 mg PO BID 04/28/19 Furosemide [Lasix] 20 mg PO DAILY 04/28/19 hydralazine 25 mg tablet 25 mg PO TID #90 tab 05/23/19 Furosemide [Lasix] 40 mg PO BID 05/26/19 Glimepiride 4 mg PO DAILY 05/26/19 Surgical History: Surgical History (Last Reviewed 04/28/19 @ 13:44 by Lexy Rosenberg DO) H/O coronary artery bypass surgery (Resolved) Onset Date: 04/30/14 Z95.1 CABG x 3: FULTON-distal D1, SVG-OM, SVG-Distal PDA 04/30/2014 History of left heart catheterization (LHC) Onset Date: 03/20/19 Z98.890 Per [facility] 03/20/2019: Triple vessel CAD of the LAD, LCX and RCA; [place] patent FULTON to LAD; Widely patent SVG to OM; Occluded SVG to PDA (appears old); No LV angiogram done due to CRI. Elevated Left Ventricular End Diastolic Pressure Left heart cath March 2012; [facility] W/ IABP INsertion 04/27/14 History of right inguinal hernia repair Onset Date: 03/2018 Z98.890, Z87.19 History of thoracentesis Z98.890 Surgical History: noncontributory, coronary bypass surgery, - - CABG x 3, R inguinal hernia repair. Psychiatric History: Anxiety, Depression Lives: Spouse/ Significant Other Smoking Status: Never smoker Alcohol: None Drugs: None - *Family History Paternal Family History: Family History (Last Reviewed 04/28/19 @ 13:45 by Lexy Rosenberg DO) Brother CAD (coronary artery disease) History Items: - - Patient notes father with a history of polio with debility secondary to this but otherwise had been healthy and in his 90s. Maternal Family History: Family History (Last Reviewed 04/28/19 @ 13:45 by Lexy Rosenberg DO) Brother CAD (coronary artery disease) History Items: Heart Disease Sibling Family History: Family History (Last Reviewed 04/28/19 @ 13:45 by Lexy Rosenberg DO) Brother CAD (coronary artery disease) History Items: Heart Disease Review of Systems Constitutional: Denies: Chills, Fever, Weight Change HEENT: Denies: Head Aches, Sinus Congestion, Sinus Drainage Cardiovascular: Denies: Chest Pain, Palpitations Respiratory: Denies: Cough, Shortness of breath at rest, Sputum production Gastrointestinal: Reports: Nausea. Denies: Abdominal Pain, Vomiting Genitourinary: Denies: Dysuria Musculoskeletal: Denies: Joint Pain, Joint Tenderness Skin: Denies: Rash, Wounds Neurological: Reports: Balance problems, Blurred vision, Confusion, Incoordination. Denies: Focal weakness, Numbness, Tingling Psychiatric: Reports: Anxiety. Denies: Depression, Homicidal Ideations, Suicidal Ideations Hematologic/ Lymphatic: Denies: Easy Bruising, Easy Bleeding VTE Information - Inpt Only VTE Present on Admission: No VTE Mechan Device Prophylaxis: None VTE Pharm Prophylaxis ordered?: Yes Patient Problems: Active and Suspected Problems (Last Reviewed 04/28/19 @ 13:44 by Lexy Rosenberg DO) Vertigo (Acute) - Physical Exam General: Alert, Cooperative, Confused HEENT: Atraumatic, PERRLA, EOMI, Normocephalic Neck: Supple Lungs: Clear to auscultation, Normal air movement, No rhonchi, No wheeze, No ral es Cardiovascular: Regular rate, Normal S1, Normal S2, No murmurs Abdomen: Bowel Sounds Present, Soft, Non Tender Extremities: No edema Skin: No rashes Musculoskeletal: No Tenderness to Palpation of Joints or Extremities Neurological: Cranial nerves II-XII grossly intact Psych/Mental Status: Appropriate, Anxious Vital Signs Temp Pulse Resp BP Pulse Ox 97.9 F 75 18 143/66 H 95 05/26/19 18:15 05/26/19 21:56 05/26/19 21:56 05/26/19 21:51 05/26/19 21:51 Oxygen Delivery Method Room Air Weight: 136 lb Body Mass Index (BMI) 23.3 Finger Stick Blood Glucose 163 Laboratory Tests Past 24 Hrs 05/26/19 05/26/19 05/26/19 19:00 19:00 19:00 WBC 10.1 RBC 3.05 L Hgb 8.7 L Hct 27.6 L MCV 90.5 MCH 28.5 MCHC 31.5 L RDW Std Deviation 52.3 H RDW Coeff of Milad 16.0 H Plt Count 255 MPV 11.2 Immature Gran % (Auto) 0.600 Neut % (Auto) 83.9 H Lymph % (Auto) 6.3 L [place] % (Auto) 7.8 Eos % (Auto) 1.1 Baso % (Auto) 0.3 Absolute Neuts (auto) 8.5 H Absolute Lymphs (auto) 0.64 L Nucleated RBC % 0 PT 13.9 INR 1.1 APTT 34.4 Sodium 135 L Potassium 4.0 Chloride 103 Carbon Dioxide 24.0 Anion Gap 8 BUN 26 H Creatinine 2.45 H Estim Creat Clear Calc 21.81 Est GFR (MDRD) Af Amer 33 L Est GFR (MDRD) Non-Af 28 L BUN/Creatinine Ratio 10.6 Glucose 193 H Calcium 9.2 Troponin I 0.022 Assessment/Plan All Active Problems (Last Reviewed 04/28/19 @ 13:44 by Lexy Rosenberg DO) Vertigo (Acute) Hypokalemia (Acute) Acute on chronic systolic (congestive) heart failure (Acute 03/20/19) H/O coronary artery bypass surgery (Resolved 04/30/14) Dyspnea (Resolved) Incarcerated right inguinal hernia (Resolved) Chronic Problems (Last Reviewed 04/28/19 @ 13:44 by Lexy Rosenberg DO) Chronic renal failure, stage 4 (severe) (Chronic) Diabetes mellitus type 2 in nonobese (Chronic) GERD (gastroesophageal reflux disease) (Chronic) Anemia of chronic renal failure, stage 4 (severe) (Chronic) Elevated PSA, between 10 and less than 20 ng/ml (Chronic) Right bundle branch block (RBBB) (Chronic) Secondary pulmonary arterial hypertension (Chronic) Essential (primary) hypertension (Chronic) Ischemic cardiomyopathy (Chronic) EF is 15% on 03/19/2019 with severe global hypokinesis of the left ventricle and moderately dilated right ventricle. Atherosclerosis of coronary artery bypass graft without angina pectoris (Chronic) CABG x 3: FULTON-distal D1, SVG-OM, SVG-Distal PDA 04/30/2014 HLD (hyperlipidemia) (Chronic) Plan 1. Transient dizziness with headache?CT scan was unremarkable to admit to progressive care unit initiate neurologic evaluations per protocol, will give low-dose Valium this evening to assist with sleep and dizziness symptoms that are presumably related to vertigo. 2. Cognitive decline?consult case management to assist with discharge planning 3. Chronic renal failure?BMP in the a.m. 4. Anemia of chronic disease?CBC in the a.m. 5. Hypertension?continue routine home medication 6. Hyperlipidemia?continue home medication 7. GERD continue routine home medication 8. DVT prophylaxis?low molecular weight heparin Code Visit Inpatient E&M: 96974 Init Hosp L3
[2019-05-26 22:52] VITALS: BMI 23.8
[2019-05-26 23:00] VITALS: PULSE 82
[2019-05-26 23:01] VITALS: BP 136/74; PULSE 82; RESP 18; TEMP 37; O2SAT 95
[2019-05-26] MEDS: diazePAM 2 MG Tablet PO (23:45)
[2019-05-26] MEDS: Atorvastatin Calcium 80 MG Tablet PO (23:46)
[2019-05-27] VITALS (13 sets, daily range): BP systolic 109–142; BP diastolic 50–75; PULSE 60–85; RESP 14–20; TEMP 36.4–37; O2SAT 87–97; BMI 23.8
[2019-05-27 05:48] LABS: Absolute Lymphocyte Count 0.87 X10^3/uL (0.83-4.51); Basophil# 0.02 X10^3/uL; Basophil% 0.3 % (0-1); Eosinophil# 0.07 X10^3/uL; Eosinophils% 0.9 % (0-5); Hematocrit 25.9 % (40-54); Hemoglobin 8.1 g/dL (13.0-16.5); Lymphocyte # 0.87 X10^3/ul (4.0); Lymphocyte % 11.3 % (19-41); Mean Corp Hgb Conc 31.3 g/dL (32-36); Mean Corpuscular Hgb 27.8 pg (27.0-32.0); Mean Platelet Vol. 10.9 fl (6.2-12.0); Monocyte# 0.71 X10^3/uL; Monocyte% 9.2 % (0-10); NRBC Flagged by Analyzer 0 % (0-5); Neutrophil # 6.03 X10^3/uL (2.7-7.7); Neutrophil % 77.9 % (47-70); Platelet Count 250 K/mm3 (150-450); Red Blood Count 2.91 M/mm3 (4.6-6.2); White Blood Count 7.7 K/mm3 (4.4-11.0)
[2019-05-27] MEDS: hydrALAZINE 25 MG Tablet PO ×2 (06:04→13:50)
[2019-05-27 06:12] LABS: Anion Gap 10 (5-15); BUN 25 mg/dL (7-18); BUN/Creat Ratio 10.6 RATIO (10-20); Calcium,Total 8.8 mg/dL (8.5-10.1); Chloride 105 mmol/L (98-107); Cholesterol 87 mg/dL (200); Creatinine, Serum 2.35 mg/dL (0.70-1.30); EST Glomerular Filtration Rate 29 mL/min (>60); Est Glom Filt Rate - Afr Amer 35 mL/min (>60); Estimated Creatinine Clearance 22.74 ml/min; Glucose 172 mg/dL (74-106); High Density Lipoprotein 32 mg/dL; Potassium 4.2 mmol/L (3.5-5.1); Sodium Level 138 mmol/L (136-145); Triglycerides 126 mg/dL; Very Low Density Lipoprotein 25 mg/dL (5-40)
[2019-05-27] MEDS: Ondansetron 4 MG/2 ML Vial IV (06:43)
[2019-05-27] MEDS: 0.9% NaCl Peripheral Flush Adult/Peds IV ×3 (06:43→10:03)
--- NOTE | 2019-05-27 07:04 | PCM.PROGNOTE ---
Patient Problems: Active and Suspected Problems (Last Reviewed 04/28/19 @ 13:44 by Lexy Rosenberg DO) Vertigo (Acute) Subjective: The patient is a 73 year old M with a past medical history of hypertension, hyperlipidemia, diabetes mellitus type 2, chronic renal failure stage IV, anemia of chronic renal failure, coronary artery disease with history of CABG, elevated PSA and severe cardiomyopathy with a 15% ejection fraction in March 2019 who presented to the emergency department at [facility] on 05/26/2019 complaining of episodic dizziness nausea and loss of balance. Vital signs at presentation to the emergency temp 97.9, pulse rate 68, blood pressure 136/68, respiratory rate 18 and he was 92 to 96% saturated on room air. White blood cell count was 10.1 with 84% neutrophils. Hemoglobin was 8.7 which is within his baseline. Platelets were within normal limits. Sodium was mildly decreased at 135 and the BUN was 26 with a creatinine of 2.45 which is within his baseline. Troponin was 0.022. A noncontrasted brain CT showed no acute intracranial abnormality. He was admitted to a monitored bed on PCU and neuro checks were ordered. NIH has been 0 since admission and the neuro checks were discontinued. He received IV fluids in the ED......no documentation as to how much. Bakari is a poor historian. He really can not tell me if he gets nauseated, sweaty or SOB with the episodic dizziness. He thinks it happens more when he is standing but, orthostatics were negative this AM. His weight is 138 and 14 ounces today, up from 134 pounds and 4 ounces on 04/29/2019. He tells me he has been weighing himself every day and his weight varies between 135 and 136. He sleeps on 2 pillows and denies PND or coughing. He has no swelling of his legs this AM but tells me at the end of the day his ankles are swollen. CXR on 05/20/2019 shows cardiomegaly with stable blunting of the Left costophrenic angle, no infiltrates and no pulmonary vascular congestion. He is sitting in bed today eating his breakfast and appears to be in no distress. He denies CP, SOB, palpitations, lightheadedness. - Physical Exam General: Alert, Cooperative, No apparent distress, Well developed, Well nourished HEENT: Atraumatic, Normocephalic Oral: Moist Mucosa Neck: Supple, No JVD, No Nodes, Trachea Midline Lungs: Rales - He has coarse crackles in the R base only. He had coarse crackles in both bases at the time of DC in April. No wheezes and no rhonchi. Cardiovascular: Regular rate, Regular Rhythm, Normal S1, Normal S2, No murmurs, No rub noted, No Gallop, - - He has a fixed split of S2. Tlelemetry overnight shows NSR with PVC's and a RBBB with stable ST and T wave changes Abdomen: Bowel Sounds Present, Soft, Non Tender, Non-Distended Extremities: No clubbing, No cyanosis, No edema, Diminished Peripheral Pulses Skin: No rashes Neurological: Cranial nerves II-XII grossly intact, Neuro grossly intact Psych/Mental Status: Normal Affect, Appropriate Vital Signs Temp Pulse Resp BP Pulse Ox 98.6 F 82 20 H 142/75 H 92 05/27/19 06:00 05/27/19 06:04 05/27/19 06:00 05/27/19 06:00 05/27/19 06:00 Oxygen Flow Rate (L/min) 2 Oxygen Delivery Method Room Air Weight: 138 lb 14.259 oz Body Mass Index (BMI) 23.8 Finger Stick Blood Glucose 163 Laboratory Tests Past 24 Hrs 05/26/19 05/26/19 05/26/19 19:00 19:00 19:00 WBC 10.1 RBC 3.05 L Hgb 8.7 L Hct 27.6 L MCV 90.5 MCH 28.5 MCHC 31.5 L RDW Std Deviation 52.3 H RDW Coeff of Milad 16.0 H Plt Count 255 MPV 11.2 Immature Gran % (Auto) 0.600 Neut % (Auto) 83.9 H Lymph % (Auto) 6.3 L [place] % (Auto) 7.8 Eos % (Auto) 1.1 Baso % (Auto) 0.3 Absolute Neuts (auto) 8.5 H Absolute Lymphs (auto) 0.64 L Nucleated RBC % 0 PT 13.9 INR 1.1 APTT 34.4 Sodium 135 L Potassium 4.0 Chloride 103 Carbon Dioxide 24.0 Anion Gap 8 BUN 26 H Creatinine 2.45 H Estim Creat Clear Calc 21.81 Est GFR (MDRD) Af Amer 33 L Est GFR (MDRD) Non-Af 28 L BUN/Creatinine Ratio 10.6 Glucose 193 H Calcium 9.2 Troponin I 0.022 Triglycerides Cholesterol LDL Cholesterol VLDL Cholesterol HDL Cholesterol 05/27/19 05/27/19 05:35 05:35 WBC 7.7 RBC 2.91 L Hgb 8.1 L Hct 25.9 L MCV 89.0 MCH 27.8 MCHC 31.3 L RDW Std Deviation 52.0 H RDW Coeff of Milad 16.0 H Plt Count 250 MPV 10.9 Immature Gran % (Auto) 0.400 Neut % (Auto) 77.9 H Lymph % (Auto) 11.3 L [place] % (Auto) 9.2 Eos % (Auto) 0.9 Baso % (Auto) 0.3 Absolute Neuts (auto) 6.0 Absolute Lymphs (auto) 0.87 Nucleated RBC % 0 PT INR APTT Sodium 138 Potassium 4.2 Chloride 105 Carbon Dioxide 23.0 Anion Gap 10 BUN 25 H Creatinine 2.35 H Estim Creat Clear Calc 22.74 Est GFR (MDRD) Af Amer 35 L Est GFR (MDRD) Non-Af 29 L BUN/Creatinine Ratio 10.6 Glucose 172 H Calcium 8.8 Troponin I Triglycerides 126 Cholesterol 87 LDL Cholesterol 30 VLDL Cholesterol 25 HDL Cholesterol 32 L Medical Necessity - Tobacco Use Smoking Status: Never smoker Assessment/Plan All Active Problems (Last Reviewed 04/28/19 @ 13:44 by Lexy Rosenberg DO) Vertigo (Acute) Hypokalemia (Acute) Acute on chronic systolic (congestive) heart failure (Acute 03/20/19) H/O coronary artery bypass surgery (Resolved 04/30/14) Dyspnea (Resolved) Incarcerated right inguinal hernia (Resolved) Impressions 1. episodic lightheadedness with negative orthostatics today. With a 15% EF he is at high risk for VT and he has frequent PVC's in the past. Will repeat a limited ECHO and if the EF is still <30% will need an AICD. 2. RBBB 3. CAD with hx of CABG - cardiac cath in March of 2019 showed an occluded saphenous vein graft to PDA with widely patent FULTON to LAD and SVG to OM. 4. Stage IV chronic renal failure -he tells me his only [address] Zabala [address]. Bagley. He should be evaluated by nephrology, this can be done as an outpatient. 5. Anemia of chronic renal failure and iron deficiency 6. Diabetes mellitus type 2 7. Hypertension 8. Hyperlipidemia 9. Elevated PSA-follows with Dr. Tavarez 10. Severe ischemic cardiomyopathy with a recent 15% ejection fraction Echocardiogram today Consult Dr. Lara Restart telemetry -if he has any ventricular tachycardia he can be referred immediately for AICD placement if his EF is less than 35% Intravenous iron supplementation - he should have 1 GM of iron over the next 2 weeks recheck lab in the AM
[2019-05-27 07:42] LABS: Magnesium 2.4 mg/dL (1.6-2.6); Phosphorus 2.9 mg/dL (2.5-4.9)
[2019-05-27] MEDS: Aspirin 81 MG TAB.CHEW PO (08:01)
[2019-05-27] MEDS: Glimepiride 4 MG Tablet PO (08:01)
[2019-05-27] MEDS: Enoxaparin 30 MG/0.3 ML Syringe SC (08:02)
[2019-05-27] MEDS: Escitalopram Oxalate 10 MG Tablet PO (08:02)
[2019-05-27] MEDS: Carvedilol 12.5 MG Tablet PO (08:02)
[2019-05-27] MEDS: Ferrous Sulfate 325 MG Tablet PO (08:03)
[2019-05-27] MEDS: Pantoprazole Sodium 40 MG Tablet PO (08:03)
[2019-05-27] MEDS: Furosemide 20 MG Tablet 60 MG PO (08:05)
--- NOTE | 2019-05-27 09:22 | EKG12_ITS ---
Test Reason : CAD Blood Pressure : / mmHG Vent. Rate : 063 BPM Atrial Rate : 063 BPM P-R Int : 156 ms QRS Dur : 158 ms QT Int : 466 ms P-R-T Axes : 050 106 253 degrees QTc Int : 476 ms Normal sinus rhythm Right bundle branch block T wave abnormality, consider inferolateral ischemia Abnormal ECG When compared with ECG of 26-MAY-2019 18:25, MANUAL COMPARISON REQUIRED, DATA IS UNCONFIRMED Confirmed by LUIGI GALVAN ([id number]), editorial cartoonist NATALY NATHAN ([id number]) on 05/29/2019 2:55:39 PM Referred By: TERRIE Confirmed By:LUIGI GALVAN
--- NOTE | 2019-05-27 13:50 | CASEMGMT ---
Addendum entered by Heidi Amanda 05/27/19 15:42: updated as well at this time, voices understanding. Murray PICKERING CM Original Note: Per Dr. Rosenberg, pt needs to be set up with OP iron(venofer) infusion at discharge. Call to infusion center to notify and then call to [facility] to see if pre cert required. Per rep at [facility], pre-cert is not required for Jcode [id number] and CPT codes 07260 and 45730 at this time. Ref# [id number]. Order, along with facesheet and copies of cards faxed to infusion center at this time. Call to Jennifer at Infusion center to notify her order faxed and to advise that this RN PEPE will keep them up to date on pt discharge so that they can set up OP times/dates, voices understanding. Jennifer voices no further questions/concerns/needs at this time. Pt updated on all at this time, voices understanding. Murray PICKERING CM
--- NOTE | 2019-05-27 14:11 | PCM.CONS.C ---
Problem List (1) Dizziness Status: Acute (2) Ventricular ectopy Status: Acute (3) CAD in [place] artery Status: Chronic (4) H/O coronary artery bypass surgery Status: Resolved Comment: CABG x 3: FULTON-distal D1, SVG-OM, SVG-Distal PDA 04/30/2014 (5) Ischemic cardiomyopathy Status: Chronic Comment: EF is 15% on 03/19/2019 with severe global hypokinesis of the left ventricle and moderately dilated right ventricle. (6) HLD (hyperlipidemia) Status: Chronic Qualifiers: Hyperlipidemia type: pure hypercholesterolemia Qualified Code(s): E78.00 - Pure hypercholesterolemia, unspecified; E78.0 - Pure hypercholesterolemia (7) Essential (primary) hypertension Status: Chronic (8) Diabetes mellitus type 2 in nonobese Status: Chronic (9) GERD (gastroesophageal reflux disease) Status: Chronic (10) Chronic renal failure, stage 4 (severe) Status: Chronic (11) Anemia of chronic renal failure, stage 4 (severe) Status: Chronic Reason for Consult Date of Consultation: 05/27/19 History of Present Illness: The patient is a 73 year old male with a past medical history of underlying CAD, CABG, ischemic cardiomyopathy, hyperlipidemia, hypertension, diabetes mellitus, GERD, chronic renal insufficiency, anemia, who presents for concerns of dizziness and has been found to have evidence of underlying ventricular ectopy on cardiac rhythm monitoring and evidence of continued diminished LV systolic function/LVEF on follow-up transthoracic echocardiogram. The patient has been followed both as an outpatient and inpatient. His most recent outpatient visit was on 05-19-19. At that time his case was reviewed noting his underlying CAD process in his previous noninvasive and invasive studies. It appeared that in March of this year he underwent noninvasive evaluation which concluded a transthoracic echocardiogram. At that time his left ventricle was listed as dilated with left ventricular systolic dysfunction with an estimated LVEF of 15% with right ventricular dilatation, left atrial enlargement, mild to moderate MR, mild TR, and an estimated RV systolic pressure of 61 mmHg. He also underwent invasive evaluation which included a diagnostic cardiac catheterization based on concerns of his diminished LV systolic function. At that time his left main coronary artery had mild luminal irregularities, the LAD had a mid 85% stenosis, the LCx was occluded, the RCA had severe calcification with proximal and distal 85% and 90% stenosis respectively, the right PDA was occluded, FULTON graft to the LAD was patent, the SVG to the first OM was patent, the SVG to the right PDA was occluded, there was collateral flow from the left to the right as well as collateral flow from the right to the right. He was treated medically. During his most recent outpatient visit there was consideration that if despite medical management he did not have overall improvement in his LV systolic function/LVEF he would need to be considered for primary prevention ICD therapy. He presents back to the hospital now because of concerns of episodes of dizziness. He states that he has had episodes, spontaneously, becoming dizzy. He has had no syncopal events. He has had no new concerning chest discomfort. He has chronic shortness of breath and dyspnea. He has had no significant change with lower extremity peripheral pitting edema. He has remained on medical management. He was placed in the hospital based upon his symptoms and concerns for further evaluation and care. His troponin I level was negative. His ECG is demonstrated sinus rhythm with a right bundle branch block pattern. A follow-up transthoracic echocardiogram was performed. The results are as noted below although his LV systolic function remain decreased and his estimated LVEF was 20%. He remains with chronic renal insufficiency with an elevated creatinine level and with chronic anemia. He stated he had been taking his medications as prescribed. His cardiac rhythm was monitored. On cardiac rhythm evaluation he was noted to have sinus rhythm with episodes of PVCs as well as an episode appearing compatible with a IVR and a separate episode of a somewhat tacky wide-complex tachycardia with a differential being related to his underlying bundle branch block pattern versus ventricular ectopy/tachycardia. Cardiology was consulted to evaluate the patient for consideration for ICD placement. [] Past Medical History Allergies/Adverse Reactions: Allergies No Known Allergies Allergy (Verified 05/26/19 18:18) Home Medications: Ambulatory Orders Medication Instructions Recorded Aspirin [Aspirin, Baby] 81 mg PO DAILY@0800 09/29/14 escitalopram 10 mg tablet 10 mg PO DAILY 30 Days #30 tab 02/04/18 pantoprazole 40 mg tablet,delayed 40 mg PO DAILY 30 Days #30 tab 02/07/18 release Ferrous Sulfate [Iron] 325 mg PO DAILY@1200 03/19/19 Atorvastatin Calcium 80 mg PO QHS 04/28/19 Carvedilol [Coreg (Beta Demetrio)] 12.5 mg PO BID 04/28/19 Furosemide [Lasix] 20 mg PO DAILY 04/28/19 hydralazine 25 mg tablet 25 mg PO TID #90 tab 05/23/19 Furosemide [Lasix] 40 mg PO BID 05/26/19 Glimepiride 4 mg PO DAILY 05/26/19 Past Medical History (Chronic Problems): Chronic Problems (Last Reviewed 04/28/19 @ 13:44 by Lexy Rosenberg DO) CAD in [place] artery (Chronic) Chronic renal failure, stage 4 (severe) (Chronic) Diabetes mellitus type 2 in nonobese (Chronic) GERD (gastroesophageal reflux disease) (Chronic) Anemia of chronic renal failure, stage 4 (severe) (Chronic) Elevated PSA, between 10 and less than 20 ng/ml (Chronic) Right bundle branch block (RBBB) (Chronic) Secondary pulmonary arterial hypertension (Chronic) Essential (primary) hypertension (Chronic) Ischemic cardiomyopathy (Chronic) EF is 15% on 03/19/2019 with severe global hypokinesis of the left ventricle and moderately dilated right ventricle. Atherosclerosis of coronary artery bypass graft without angina pectoris (Chronic) CABG x 3: FULTON-distal D1, SVG-OM, SVG-Distal PDA 04/30/2014 HLD (hyperlipidemia) (Chronic) Surgical History: noncontributory, coronary bypass surgery, - - CABG x 3, R inguinal hernia repair. Psychiatric History: Anxiety, Depression - *Family History Paternal Family History: Family History (Last Reviewed 04/28/19 @ 13:45 by Lexy Rosenberg DO) Brother CAD (coronary artery disease) History Items: - - Patient notes father with a history of polio with debility secondary to this but otherwise had been healthy and in his 90s. Maternal Family History: Family History (Last Reviewed 04/28/19 @ 13:45 by Lexy Rosenberg DO) Brother CAD (coronary artery disease) History Items: Heart Disease Sibling Family History: Family History (Last Reviewed 04/28/19 @ 13:45 by Lexy Rosenberg DO) Brother CAD (coronary artery disease) History Items: Heart Disease Lives: Spouse/ Significant Other Smoking Status: Never smoker Alcohol: None Drugs: None Review of Systems - Review of Systems General: Reports: Fatigue. Denies: Fever, Night Sweats Cardiovascular: Reports: Shortness of Breath, Dizziness. Denies: Chest Discomfort, Orthopnea, PND, Peripheral Edema, Palpitations, Lightheadedness, Near Syncope, Syncope Respiratory: Reports: Shortness of Breath. Denies: Cough, Sputum Production, Hemoptysis Gastrointestinal: Denies: Hematemesis, Hematochezia, Melena Genitourinary: Denies: Dysuria, Hematuria Skin: Denies: Rash Subjectve: This is a 73-year-old white male who appears to be resting comfortably at the moment in no acute distress. Objective: Vital Signs Temp Pulse Resp BP Pulse Ox 98.2 F 60 14 117/57 L 95 05/27/19 09:26 05/27/19 13:50 05/27/19 09:26 05/27/19 09:26 05/27/19 09:57 Oxygen Flow Rate (L/min) 2 Oxygen Delivery Method Room Air Weight: 138 lb 14.259 oz Body Mass Index (BMI) 23.8 Finger Stick Blood Glucose 163 Orthostatic Vital Signs Start: 05/27/19 08:12 Freq: q24h Status: Active Protocol: Activity Type Activity Date Activity User E-Sign Co-Sign Detail Recorded Client Recorded Date Recorded By Document 05/27/19 08:12 MLB [id number] 05/27/19 08:13 MLB 05/27/19 08:12 Orthostatic Vitals Standing -Blood Pressure (90/60-120/80) 114/55 L -Extremity Use Left Arm -Pulse Rate (60-100) 74 Sitting -Blood Pressure (90/60-120/80) 116/50 L -Extremity Use Left Arm -Pulse Rate (60-100) 71 Lying -Blood Pressure (90/60-120/80) 118/60 -Extremity Use Left Arm -Pulse Rate (60-100) 71 Intake and Output for Last 24 Hours 05/25/19 05/26/19 05/27/19 23:59 23:59 23:59 Intake Total 406 / 406 Balance 406 / 406 General: Awake, Alert, Oriented x 3, Cooperative, No Acute Distress HEENT: Atraumatic, Normocephalic, PERRL, EOMI Oral: Moist Mucosa Neck: Supple, Good ROM, No JVD Lungs: Diminished [place] Bases Cardiovascular: Regular Rhythm, Premature Ectopic Beats, Normal S1, Normal S2 Murmur Murmur: Grade 2/6, Soft, Mid Systolic, LLSB, [place] Abdomen: Bowel Sounds Present, Soft, Non Tender Extremities: No Cyanosis, No Clubbing, No edema Psych/Mental Status: Appropriate 05/26/19 19:00: WBC 10.1, RBC 3.05 L, Hgb 8.7 L, Hct 27.6 L, MCV 90.5, MCH 28.5, MCHC 31.5 L, Plt Count 255, MPV 11.2, Immature Gran % (Auto) 0.600, Neut % (Auto) 83.9 H, Lymph % (Auto) 6.3 L, [place] % (Auto) 7.8, Eos % (Auto) 1.1, Baso % (Auto) 0.3, Absolute Neuts (auto) 8.5 H, Nucleated RBC % 0 05/26/19 19:00: PT 13.9, INR 1.1, APTT 34.4 05/26/19 19:00: Sodium 135 L, Potassium 4.0, Chloride 103, Carbon Dioxide 24.0, Anion Gap 8, BUN 26 H, Creatinine 2.45 H, Est GFR (MDRD) Af Amer 33 L, Est GFR (MDRD) Non-Af 28 L, BUN/Creatinine Ratio 10.6, Glucose 193 H, Calcium 9.2, Troponin I 0.022 05/27/19 05:35: WBC 7.7, RBC 2.91 L, Hgb 8.1 L, Hct 25.9 L, MCV 89.0, MCH 27.8, MCHC 31.3 L, Plt Count 250, MPV 10.9, Immature Gran % (Auto) 0.400, Neut % (Auto) 77.9 H, Lymph % (Auto) 11.3 L, [place] % (Auto) 9.2, Eos % (Auto) 0.9, Baso % (Auto) 0.3, Absolute Neuts (auto) 6.0, Nucleated RBC % 0 05/27/19 05:35: Sodium 138, Potassium 4.2, Chloride 105, Carbon Dioxide 23.0, Anion Gap 10, BUN 25 H, Creatinine 2.35 H, Est GFR (MDRD) Af Amer 35 L, Est GFR (MDRD) Non-Af 29 L, BUN/Creatinine Ratio 10.6, Glucose 172 H, Calcium 8.8, Triglycerides 126, Cholesterol 87, LDL Cholesterol 30, VLDL Cholesterol 25, HDL Cholesterol 32 L 05/27/19 05:35: Phosphorus 2.9, Magnesium 2.4 Rhythm: Sinus rhythm; PVCs EKG: Sinus rhythm; right bundle branch block pattern ECHO: Technically diminished quality study Contrast injection performed Moderate left ventricular dilatation Severe segmental left ventricular systolic dysfunction Estimated LVEF 20% Moderate right ventricular dilatation Moderate global right ventricular systolic dysfunction Moderate left atrial enlargement Mild diffuse mitral valve thickening Mild MR Moderate TR Focal aortic valve calcification Calcified aortic root Estimated RV systolic pressure 45 mmHg Unable to assess diastolic dysfunction Cardiac Cath: As noted above CT Surgery: Reported is being performed in April,: FULTON to the LAD SVG to the OM SVG to the right PDA CXR: Small left pleural effusion: Please see official report Assessment/Plan 1. Dizziness The patient has episodes of dizziness. The etiology may be multifactorial, however, from a cardiovascular standpoint there are concerns about the patient's underlying ischemic mediated cardiomyopathy with diminished LV systolic function and findings of underlying ventricular ectopy as a potential contributing factor. He has been evaluated noninvasively as noted above. He also has findings of chronic renal insufficiency and chronic anemia. He has been receiving iron supplement. From a cardiac standpoint at the present time he will continue to be monitored. However, it was felt reasonable his case was reviewed with elective physiology for consideration based upon his symptoms and findings of superimposed upon his underlying ischemic mediated cardia myopathy diminished LV systolic function for proceeding further with primary prevention ICD placement. 2. Ventricular ectopy He has been found on cardiac rhythm monitor to have an element of ventricular ectopy. This is included PVCs as well as an episode appearing compatible with AI VR. He also had a somewhat tachycardic wide-complex rhythm with a differential including his underlying aberrancy versus ventricular tachycardia. Thus, it was felt reasonable to continue his cardiovascular medical therapy and consider EP input for primary prevention ICD placement. 3. CAD status post CABG The details of his CAD status are as noted above based upon his recent diagnostic cardiac catheterization. He did not require additional revascularization therapy. He required continued medical management. 4. Ischemic mediated cardiomyopathy He does have an ischemic mediated cardiomyopathy. His LV systolic function is diminished. It has been reevaluated and remains diminished. He will continue medical therapy. He will be considered for primary prevention ICD placement. 5. Hyperlipidemia He will continue lipid-lowering therapy as deemed appropriate. 6. Hypertension His blood pressure will be followed. His medications can be adjusted as deemed appropriate. 7. Diabetes mellitus He will continue under the care of internal medicine. 8. GERD He will continue medical management with adjustment as needed. 7. Chronic renal insufficiency He does have a history of chronic renal insufficiency. He will continue evaluation care per internal medicine and nephrology as needed. 8. Anemia He has a history of chronic anemia. He is continuing medical therapy/supplement. Comment: The patient's case was discussed and reviewed with patient, his spouse, and Dr. Rosenberg of the [facility] staff. This note was generated with [employer] dictation software. It may contain incorrect words, spelling, and punctuation that were not noted in checking the note before signing.
--- NOTE | 2019-05-27 15:46 | CASEMGMT ---
According to [facility] website, the following are in-network tertiary facilities: [facility], [facility], [facility], [facility], [facility], [facility], [facility], and . [facility]
--- NOTE | 2019-05-27 16:36 | DS.PCM_ITS ---
Discharge Date and Diagnosis - Problem List Patient Problems: Active and Suspected Problems (Last Reviewed 04/28/19 @ 13:44 by Lexy Rosenberg DO) Vertigo (Acute) Dizziness (Acute) Ventricular ectopy (Acute) Date of Admission: 05/26/19 Date of Discharge: 05/27/19 - Primary Discharge Diagnosis Active and Suspected Problems (Last Reviewed 04/28/19 @ 13:44 by Lexy Rosenberg DO) Dizziness/near syncope (Acute) Frequent Ventricular ectopy with bigeminal PVC's, Triplets and couplets iron deficiency - Secondary Discharge Diagnosis Chronic Problems (Last Reviewed 04/28/19 @ 13:44 by Lexy Rosenberg DO) CAD in [place] artery (Chronic) Chronic renal failure, stage 4 (severe) (Chronic) Diabetes mellitus type 2 in nonobese (Chronic) GERD (gastroesophageal reflux disease) (Chronic) Anemia of chronic renal failure AND iron deficiency (Chronic) Elevated PSA, between 10 and less than 20 ng/ml (Chronic) follows with urology Right bundle branch block (RBBB) (Chronic) Secondary pulmonary arterial hypertension (Chronic) with a PA systolic of 45 on ECHO Essential (primary) hypertension (Chronic) Ischemic cardiomyopathy (Chronic) EF is 15% on 03/19/2019 with severe global hypokinesis of the left ventricle and moderately dilated right ventricle. 20% on 05/27/19 Atherosclerosis of coronary artery bypass graft without angina pectoris (Chronic) CABG x 3: FULTON-distal D1, SVG-OM, SVG-Distal PDA 04/30/2014 PDA was occluded on cath done in March 2019 HLD (hyperlipidemia) (Chronic) Moderate left atrial enlargement, 1+ MR and 2+ TR Hospital Course and Treatment Imaging Results: 05/27/19 09:20 Echo Limited w/Contrast [ECHO] Routine Clinical Impression(s) from Imaging Studies Brain CT 05/26/19 18:46 IMPRESSION: No acute intracranial abnormality. Chronic ischemic and atrophic changes. Right maxillary sinus retention cyst. Electronically Signed: Gary Sarmiento, at 19:43 EDT Tel , Service support , [facility] None Procedures: 2-D Echocardiogram Summary of Care Provided: The patient is a 73 year old M with a past medical history of hypertension, hyperlipidemia, pulmonary hypertension, diabetes mellitus type 2, chronic renal failure stage IV, anemia of chronic renal failure, iron deficiency, coronary artery disease with history of CABG, elevated PSA (followed by urology) and severe cardiomyopathy with a 15% ejection fraction in March 2019 who presented to the emergency department at [facility] on 05/26/2019 complaining of episodic dizziness, nausea and loss of balance. He denied vertigo. Vital signs at presentation to the emergency room were temp 97.9, pulse rate 68, blood pressure 136/68, respiratory rate 18 and he was 92 to 96% saturated on room air. White blood cell count was 10.1 with 84% neutrophils. Hemoglobin was 8.7 which is within his baseline. Platelets were within normal limits. Sodium was mildly decreased at 135 and the BUN was 26 with a creatinine of 2.45 which is within his baseline. Troponin was 0.022. A noncontrasted brain CT showed no acute intracranial abnormality. He was admitted to a monitored bed on PCU and neuro checks were ordered. NIH was never higher than 0 since admission and the neuro checks were discontinued. Review of telemetry showed frequent PVC's with ventricular bigeminy, couplets and triplets. He denied dizziness while admitted to the hospital. Orthostatic VS's were negative for orthostatic hypotension. Calcium and magnesium were within normal limits. LDL is well controlled at 30 and the HDL is 32 with triglycerides of 126. Dr. Gregory Lara from [facility] was consulted and a repeat echocardiogram was obtained. The left ventricular ejection fraction was estimated at 20% and there was severe segmental systolic dysfunction, moderately dilated left ventricle and right ventricle, moderate global right ventricular systolic dysfunction, moderate left atrial enlargement, +1 MR, +2 TR and the right ventricular systolic pressure was estimated to be 45. Recent chest x-ray showed blunting of the left costophrenic angle with no pulmonary vascular congestion and no infiltrates. His weight has been stable between 135 and 136 on his scale at home and he weighs himself daily. Dr. Lara recommended transfer for AICD placement. This was discussed with Dr. Tai from [facility] and Dr. Tai has accepted the pt for AICD placement. He will be admitted to the hospital service with consult for Dr. Tai. - Physical Exam General: Alert, Cooperative, No apparent distress, Well developed, Well nourished HEENT: Atraumatic, Normocephalic Oral: Moist Mucosa Neck: Supple, No JVD, No Nodes, Trachea Midline Lungs: Rales - He has coarse crackles in the R base only. He had coarse crackles in both bases at the time of DC in April. No wheezes and no rhonchi. Cardiovascular: Regular rate, Regular Rhythm, Normal S1, Normal S2, No murmurs, No rub noted, No Gallop, - - He has a fixed split of S2. Tlelemetry overnight shows NSR with PVC's and a RBBB with stable ST and T wave changes Abdomen: Bowel Sounds Present, Soft, Non Tender, Non-Distended Extremities: No clubbing, No cyanosis, No edema, Diminished Peripheral Pulses Skin: No rashes Neurological: Cranial nerves II-XII grossly intact, Neuro grossly intact Psych/Mental Status: Normal Affect, Appropriate He was given 100 mg of IV iron sucrose for iron deficiency and will need to get an additional 900 mg over the next 2 weeks. He can follow up in the infusion center at [facility] following discharge from [facility] for Iron infusions which have already been arranged. This note was generated with [employer] dictation software. It may contain incorrect words, spelling, and punctuation that were not noted in checking the note before signing. Patient Problems: Active and Suspected Problems (Last Reviewed 04/28/19 @ 13:44 by Lexy Rosenberg DO) Vertigo (Acute) Dizziness (Acute) Ventricular ectopy (Acute) - Physical Exam Vital Signs Temp Pulse Resp BP Pulse Ox 97.6 F L 61 16 109/61 95 05/27/19 15:26 05/27/19 15:26 05/27/19 15:26 05/27/19 15:26 05/27/19 15:26 Oxygen Flow Rate (L/min) 2 Oxygen Delivery Method Nasal Cannula Weight: 138 lb 14.259 oz Body Mass Index (BMI) 23.8 Finger Stick Blood Glucose 163 Orthostatic Vital Signs Start: 05/27/19 08:12 Freq: q24h Status: Active Protocol: Activity Type Activity Date Activity User E-Sign Co-Sign Detail Recorded Client Recorded Date Recorded By Document 05/27/19 08:12 MLB [id number] 05/27/19 08:13 MLB 08/13/19 08:12 Orthostatic Vitals Standing -Blood Pressure (90/60-120/80 mm Hg) 114/55 L -Extremity Use Left Arm -Pulse Rate (60-100 beats/min) 74 Sitting -Blood Pressure (90/60-120/80 mm Hg) 116/50 L -Extremity Use Left Arm -Pulse Rate (60-100 beats/min) 71 Lying -Blood Pressure (90/60-120/80 mm Hg) 118/60 -Extremity Use Left Arm -Pulse Rate (60-100 beats/min) 71 Intake and Output for Last 24 Hours 05/25/19 05/26/19 05/27/19 23:59 23:59 23:59 Intake Total 406 / 406 Balance 406 / 406 Laboratory Tests Past 24 Hrs 05/26/19 05/26/19 05/26/19 19:00 19:00 19:00 WBC 10.1 RBC 3.05 L Hgb 8.7 L Hct 27.6 L MCV 90.5 MCH 28.5 MCHC 31.5 L RDW Std Deviation 52.3 H RDW Coeff of Milad 16.0 H Plt Count 255 MPV 11.2 Immature Gran % (Auto) 0.600 Neut % (Auto) 83.9 H Lymph % (Auto) 6.3 L [place] % (Auto) 7.8 Eos % (Auto) 1.1 Baso % (Auto) 0.3 Absolute Neuts (auto) 8.5 H Absolute Lymphs (auto) 0.64 L Nucleated RBC % 0 PT 13.9 INR 1.1 APTT 34.4 Sodium 135 L Potassium 4.0 Chloride 103 Carbon Dioxide 24.0 Anion Gap 8 BUN 26 H Creatinine 2.45 H Estim Creat Clear Calc 21.81 Est GFR (MDRD) Af Amer 33 L Est GFR (MDRD) Non-Af 28 L BUN/Creatinine Ratio 10.6 Glucose 193 H Calcium 9.2 Phosphorus Magnesium Troponin I 0.022 Triglycerides Cholesterol LDL Cholesterol VLDL Cholesterol HDL Cholesterol 05/27/19 05/27/19 05/27/19 05:35 05:35 05:35 WBC 7.7 RBC 2.91 L Hgb 8.1 L Hct 25.9 L MCV 89.0 MCH 27.8 MCHC 31.3 L RDW Std Deviation 52.0 H RDW Coeff of Milad 16.0 H Plt Count 250 MPV 10.9 Immature Gran % (Auto) 0.400 Neut % (Auto) 77.9 H Lymph % (Auto) 11.3 L [place] % (Auto) 9.2 Eos % (Auto) 0.9 Baso % (Auto) 0.3 Absolute Neuts (auto) 6.0 Absolute Lymphs (auto) 0.87 Nucleated RBC % 0 PT INR APTT Sodium 138 Potassium 4.2 Chloride 105 Carbon Dioxide 23.0 Anion Gap 10 BUN 25 H Creatinine 2.35 H Estim Creat Clear Calc 22.74 Est GFR (MDRD) Af Amer 35 L Est GFR (MDRD) Non-Af 29 L BUN/Creatinine Ratio 10.6 Glucose 172 H Calcium 8.8 Phosphorus 2.9 Magnesium 2.4 Troponin I Triglycerides 126 Cholesterol 87 LDL Cholesterol 30 VLDL Cholesterol 25 HDL Cholesterol 32 L Home Medications: Medications to take at Discharge Aspirin [Aspirin, Baby] 81 mg PO DAILY@0800 09/29/14 escitalopram 10 mg tablet 10 mg PO DAILY 30 Days #30 tab 02/04/18 pantoprazole 40 mg tablet,delayed release 40 mg PO DAILY 30 Days #30 tab 02/07/18 Ferrous Sulfate [Iron] 325 mg PO DAILY@1200 03/19/19 Atorvastatin Calcium 80 mg PO QHS 04/28/19 Carvedilol [Coreg (Beta Demetrio)] 12.5 mg PO BID 04/28/19 Furosemide [Lasix] 20 mg PO DAILY 04/28/19 hydralazine 25 mg tablet 25 mg PO TID #90 tab 05/23/19 Furosemide [Lasix] 40 mg PO BID 05/26/19 Glimepiride 4 mg PO DAILY 05/26/19 Primary Care Physician: Saman Bagley MD [Primary Care Provider] - Disposition: [facility] Minutes spent on discharge:: 40 Patient Condition:: Guarded Medical Necessity - Tobacco Use Smoking Status: Never smoker Tobacco Use: Non-smoker Meaningful Use Info Meaningful Use Diagnoses (Choose all that apply): None applicable Code Visit Inpatient E&M: 01570 Disch Hosp
--- NOTE | 2019-05-27 17:15 | PCM.PN.CARD ---
Objective: Vital Signs Temp Pulse Resp BP Pulse Ox 97.6 F L 61 16 109/61 95 05/27/19 15:26 05/27/19 15:26 05/27/19 15:26 05/27/19 15:26 05/27/19 15:26 Oxygen Flow Rate (L/min) 2 Oxygen Delivery Method Nasal Cannula Weight: 63 kg Body Mass Index (BMI) 23.8 Finger Stick Blood Glucose 163 Orthostatic Vital Signs Start: 05/27/19 08:12 Freq: q24h Status: Active Protocol: Activity Type Activity Date Activity User E-Sign Co-Sign Detail Recorded Client Recorded Date Recorded By Document 05/27/19 08:12 MLB [id number] 05/27/19 08:13 MLB 05/27/19 08:12 Orthostatic Vitals Standing -Blood Pressure (90/60-120/80 mm Hg) 114/55 L -Extremity Use Left Arm -Pulse Rate (60-100 beats/min) 74 Sitting -Blood Pressure (90/60-120/80 mm Hg) 116/50 L -Extremity Use Left Arm -Pulse Rate (60-100 beats/min) 71 Lying -Blood Pressure (90/60-120/80 mm Hg) 118/60 -Extremity Use Left Arm -Pulse Rate (60-100 beats/min) 71 Intake and Output for Last 24 Hours 05/25/19 05/26/19 05/27/19 23:59 23:59 23:59 Intake Total 406 / 406 Balance 406 / 406 05/26/19 19:00: WBC 10.1, RBC 3.05 L, Hgb 8.7 L, Hct 27.6 L, MCV 90.5, MCH 28.5, MCHC 31.5 L, Plt Count 255, MPV 11.2, Immature Gran % (Auto) 0.600, Neut % (Auto) 83.9 H, Lymph % (Auto) 6.3 L, [place] % (Auto) 7.8, Eos % (Auto) 1.1, Baso % (Auto) 0.3, Absolute Neuts (auto) 8.5 H, Nucleated RBC % 0 05/26/19 19:00: PT 13.9, INR 1.1, APTT 34.4 05/26/19 19:00: Sodium 135 L, Potassium 4.0, Chloride 103, Carbon Dioxide 24.0, Anion Gap 8, BUN 26 H, Creatinine 2.45 H, Est GFR (MDRD) Af Amer 33 L, Est GFR (MDRD) Non-Af 28 L, BUN/Creatinine Ratio 10.6, Glucose 193 H, Calcium 9.2, Troponin I 0.022 05/27/19 05:35: WBC 7.7, RBC 2.91 L, Hgb 8.1 L, Hct 25.9 L, MCV 89.0, MCH 27.8, MCHC 31.3 L, Plt Count 250, MPV 10.9, Immature Gran % (Auto) 0.400, Neut % (Auto) 77.9 H, Lymph % (Auto) 11.3 L, [place] % (Auto) 9.2, Eos % (Auto) 0.9, Baso % (Auto) 0.3, Absolute Neuts (auto) 6.0, Nucleated RBC % 0 05/27/19 05:35: Sodium 138, Potassium 4.2, Chloride 105, Carbon Dioxide 23.0, Anion Gap 10, BUN 25 H, Creatinine 2.35 H, Est GFR (MDRD) Af Amer 35 L, Est GFR (MDRD) Non-Af 29 L, BUN/Creatinine Ratio 10.6, Glucose 172 H, Calcium 8.8, Triglycerides 126, Cholesterol 87, LDL Cholesterol 30, VLDL Cholesterol 25, HDL Cholesterol 32 L 05/27/19 05:35: Phosphorus 2.9, Magnesium 2.4 Rhythm: EKG: ECHO: Stress Test: Cardiac Cath: PCI: CT Surgery: Holter monitor: EPS: PPM: CXR: Chest CT Scan: Medical Necessity - Tobacco Use Smoking Status: Never smoker Tobacco Use: Non-smoker
--- NOTE | 2019-05-28 14:52 | CASEMGMT ---
Call to Jennifer at [facility] infusion center to notify them that pt was transferred to [facility] last evening to have AICD placed and that they will have to call pt's to set up infusions once pt is home, voices understanding. Murray PICKERING CM
== END 2019-05-27 16:35 | disposition short-term general hospital (02) ==
LOC: ED 21:22 → PCU 23:02
PROVIDERS: Admitting Provider Family Medicine; Emergency Provider Emergency Medicine; Family Provider Family Medicine; PCP Family Medicine; Visit Provider Internal Medicine
DX: R42 Dizziness and giddiness (principal); I49.3 Ventricular premature depolarization; R51 Headache; R11.0 Nausea; H53.8 Other visual disturbances; D63.1 Anemia in chronic kidney disease; N18.4 Chronic kidney disease, stage 4 (severe); E11.22 Type 2 diabetes mellitus with diabetic chronic kidney disease; I13.0 Hypertensive heart and chronic kidney disease with heart failure and stage 1 through stage 4 chronic kidney disease, or unspecified chronic kidney disease; I25.10 Atherosclerotic heart disease of native coronary artery without angina pectoris; K21.9 Gastro-esophageal reflux disease without esophagitis; E78.5 Hyperlipidemia, unspecified; I27.21 Secondary pulmonary arterial hypertension; I25.5 Ischemic cardiomyopathy; R29.702 NIHSS score 2; I50.23 Acute on chronic systolic (congestive) heart failure; F41.9 Anxiety disorder, unspecified; Z95.1 Presence of aortocoronary bypass graft; Z79.899 Other long term (current) drug therapy; Z79.82 Long term (current) use of aspirin; Z79.84 Long term (current) use of oral hypoglycemic drugs; F32.9 Major depressive disorder, single episode, unspecified; R97.20 Elevated prostate specific antigen [PSA]; I45.10 Unspecified right bundle-branch block
CPT/HCPCS: 36415; 70450; 80048; 80061; 83735; 84100; 84484; 85025; 85610; 85730; 93005; 93308; 94762; 96365; 96372; 96375; 97162; 97166; 99218; 99285; J1756; Q9957; A4216; C8924; G0378; J2405

== ENCOUNTER → 2019-06-03 10:41 | Outpatient (CLI) | payer MEDICARE, SELFPAY ==
[2019-05-27 00:43] VITALS: BMI 23.8
[2019-06-03 12:41] LABS: ALB/GLOB Ratio 0.9 RATIO (0.9-2.4); AST(SGOT) 19 U/L (15-37); Alanine Aminotransfer ALT/SGPT 18 U/L (16-61); Albumin, Serum 3.3 g/dL (3.2-5.0); Alkaline Phosphatase 80 U/L (45-117); Anion Gap 8 (5-15); BUN 27 mg/dL (7-18); BUN/Creat Ratio 11.6 RATIO (10-20); Calcium,Total 8.5 mg/dL (8.5-10.1); Chloride 108 mmol/L (98-107); Creatinine, Serum 2.33 mg/dL (0.70-1.30); EST Glomerular Filtration Rate 29 mL/min (>60); Est Glom Filt Rate - Afr Amer 35 mL/min (>60); Globulin 3.8 g/dL (2.2-4.2); Glucose 141 mg/dL (74-106); Potassium 4.1 mmol/L (3.5-5.1); Protein, Total 7.1 g/dL (6.4-8.2); Sodium Level 139 mmol/L (136-145)
== END ==
PROVIDERS: Family Provider Family Medicine; PCP Family Medicine; Referring Provider Family Medicine; Visit Provider Nurse Practitioner Adult Health
DX: R17 Unspecified jaundice (principal)
CPT/HCPCS: 36415; 80053

== ENCOUNTER → 2019-06-03 12:39 | Outpatient (CLI) | payer MEDICARE, SELFPAY ==
[2019-05-27 00:43] VITALS: BMI 23.8
[2019-06-03 12:52] VITALS: BP 102/46; PULSE 67; RESP 16; TEMP 36.3; O2SAT 94; BMI 22.9
== END ==
PROVIDERS: Family Provider Family Medicine; PCP Family Medicine; Referring Provider Internal Medicine; Visit Provider Internal Medicine
DX: N18.4 Chronic kidney disease, stage 4 (severe) (principal); D50.9 Iron deficiency anemia, unspecified; R17 Unspecified jaundice
CPT/HCPCS: 96365; 36415; 80053; J1756; J7050; A4216

== ENCOUNTER → 2019-06-05 08:00 | Outpatient (CLI) | payer MEDICARE, SELFPAY ==
[2019-06-03 12:52] VITALS: BMI 22.9
--- NOTE | 2019-06-05 | IMM_PTH ---
PATIENT: TAM BUSTOS LOC: [facility] U#:[id number] AGE/SX: 79/M ROOM: RE06/05/[address]: Dr. Shiva Tavarez MD : 1945 BED: DIS: SPEC #: [id number] RECD: 06/09/19 10:45 STATUS: TYRONE REQ #: [id number] BRITTANY: 06/05/19 00:[address]: Shiva Tavarez DEPT: IMMUNOHISTOCHEMISTRY RECD BY: Abdirahman Baer ENTERED: 06/09/19 10:46 SP TYPE: IMMUNO OTHR DR: Dr. Saman Bagley MD Tissues: PROSTATE BIOPSY Procedures: 34BE12 (add) P40 (add) 34BE12 (initial) PHYSICIAN & INSTITUTION [place] [id number] SPECIMEN INFORMATION: Tissue Source: B. Prostate biopsy, right mid C. Prostate biopsy, right base Clinical Info: R97.20 Specimen Number: [id number] B & C CPT code: 56389, 56771 x3 METHODOLOGY: Deparaffinized sections of prefer/formalin-fixed tissue or PAP/DQ stained slides are incubated with monoclonal/polyclonal antibodies/oligonucleotide probes. Localization is made via biotin free immunoperoxidase method. Appropriate controls are performed and reacted as expected. Results on target cell population are indicated in the following table: RESULTS: ANTIBODY / CLONE RESULT Block B 34BE12 (34BE12) positive P40 (BC28) positive Block C 34BE12 (34BE12) positive P40 (BC28) positive These tests were developed and their performance characteristics determined by [facility]. They may not have been cleared or approved by the U.S. Food and Drug Administration. The FDA has determined that such clearance or approval is not necessary. INTERPRETATION: B. Right mid prostate, needle core biopsy: Benign prostatic tissue C. Right prostate base, needle core biopsy: Benign prostatic tissue AM:herve 06/09/19
--- NOTE | 2019-06-05 | PROSBIL_PTH ---
PATIENT: TAM BUSTOS LOC: [facility] U#:[id number] AGE/SX: 79/M ROOM: RE06/05/[address]: Dr. Shiva Tavarez MD : 1945 BED: DIS: SPEC #: [id number] RECD: 06/05/19 08:54 STATUS: TYRONE YOLANDA #: [id number] BRITTANY: 06/05/19 00:[address]: Shiva Tavarez DEPT: SURGICAL PATHOLOGY RECD BY: Wilfredo Muñoz ENTERED: 06/06/19 08:55 SP TYPE: PROST BX CORWIN DR: Dr. Saman Bagley MD Tissues: A - PROSTATE RIGHT B - PROSTATE RIGHT C - PROSTATE RIGHT D - PROSTATE LEFT E - PROSTATE LEFT F - PROSTATE LEFT Procedures: PROSTATE BX HEADER OPERATION: Prostate biopsy PRE-OP DIAGNOSIS: R97.20 TISSUE SUBMITTED: A - Right apex, B - Right mid, C - Right base, D - Left apex, E - Left mid, F - Left base MICROSCOPIC DIAGNOSIS A. Right prostate, apex, core biopsy: Focal glandular atrophy. Mild chronic inflammation. B. Right prostate, mid, core biopsy: Focal glandular atrophy. Mild chronic inflammation. C. Right prostate, base, core biopsy: Focal glandular atrophy. Mild chronic inflammation. Focal high-grade PIN. D. Left prostate, apex, core biopsy: Focal glandular atrophy. E. Left prostate, mid, core biopsy: Focal glandular atrophy. Focal acute inflammation. F. Left prostate, base, core biopsy: Focal glandular atrophy. Mild chronic inflammation. AM:syeda 06/09/19 COMMENT B&C: Immunohistochemistry ([id number]) supports the above diagnosis. MICROSCOPIC DESCRIPTION Slides are reviewed. GROSS DESCRIPTION A - Received is one container designated prostate, right apex. The specimen consists of two elongated fragments of light nathan-white soft tissue each measuring 1 and 1.5 cm in length and 0.1 cm in diameter. The specimen is totally submitted in one cassette. B - Received is one container designated prostate, right mid. The specimen consists of two elongated fragments of light nathan-white soft tissue each measuring 1.2 cm in length and 0.1 cm in diameter. The specimen is totally submitted in one cassette. C - Received is one container designated prostate, right base. The specimen consists of two elongated fragments of light nathan-white soft tissue each measuring 1 and 1.3 cm in length and 0.1 cm in diameter. The specimen is totally submitted in one cassette. D - Received is one container designated prostate, left apex. The specimen consists of two elongated fragments of light nathan-white soft tissue each measuring 1.5 cm in length and 0.1 cm in diameter. The specimen is totally submitted in one cassette. E - Received is one container designated prostate, left mid. The specimen consists of two elongated fragments of light nathan-white soft tissue each measuring 1.5 cm in length and 0.1 cm in diameter. The specimen is totally submitted in one cassette. F - Received is one container designated prostate, left base. The specimen consists of two elongated fragments of light nathan-white soft tissue each measuring 1.5 cm in length and 0.1 cm in diameter. The specimen is totally submitted in one cassette. /JORY:sp 06/06/19 TC:2 CPT: G0146
== END ==
PROVIDERS: Family Provider Family Medicine; PCP Family Medicine; Referring Provider Urology; Visit Provider Urology
DX: R97.20 Elevated prostate specific antigen [PSA] (principal)
CPT/HCPCS: 88305; 88341; 88342; G0416

== ENCOUNTER → 2019-06-06 12:45 | Outpatient (CLI) | payer MEDICARE, SELFPAY ==
[2019-05-27 00:43] VITALS: BMI 23.8
[2019-06-03 12:52] VITALS: BMI 22.9
[2019-06-06 13:14] VITALS: BP 113/55; PULSE 62; RESP 16; TEMP 36.4; BMI 22.4
== END ==
PROVIDERS: Family Provider Family Medicine; PCP Family Medicine; Referring Provider Internal Medicine; Visit Provider Internal Medicine
DX: N18.4 Chronic kidney disease, stage 4 (severe) (principal); D50.9 Iron deficiency anemia, unspecified
CPT/HCPCS: 96365; J1756; J7050; A4216

== ENCOUNTER → 2019-06-10 13:35 | Outpatient (CLI) | payer MEDICARE, SELFPAY ==
[2019-06-06 13:14] VITALS: BMI 22.4
[2019-06-10 13:41] VITALS: BP 136/61; PULSE 71; RESP 16; TEMP 36.4; O2SAT 94; BMI 22.9
== END ==
PROVIDERS: Family Provider Family Medicine; PCP Family Medicine; Referring Provider Internal Medicine; Visit Provider Internal Medicine
DX: N18.4 Chronic kidney disease, stage 4 (severe) (principal); D50.9 Iron deficiency anemia, unspecified
CPT/HCPCS: 96365; J1756; J7050; A4216

== ENCOUNTER → 2019-06-13 13:34 | Outpatient (CLI) | payer MEDICARE, SELFPAY ==
[2019-06-06 13:14] VITALS: BMI 22.4
[2019-06-12 13:20] VITALS: BMI 23.4
[2019-06-13 13:53] VITALS: BP 138/64; PULSE 70; RESP 18; O2SAT 95; BMI 23.4
== END ==
PROVIDERS: Family Provider Family Medicine; PCP Family Medicine; Referring Provider Internal Medicine; Visit Provider Internal Medicine
DX: N18.4 Chronic kidney disease, stage 4 (severe) (principal); D50.9 Iron deficiency anemia, unspecified
CPT/HCPCS: 96365; J1756; J7050; A4216

== ENCOUNTER → 2019-07-10 09:23 | Outpatient (CLI) | payer MEDICARE, SELFPAY ==
[2019-06-13 13:53] VITALS: BMI 23.4
[2019-07-10 10:02] LABS: Absolute Lymphocyte Count 0.78 X10^3/uL (0.83-4.51); Absolute Neutrophil Count 4.4 X10^3/uL (2.0-7.7); Basophil# 0.03 X10^3/uL; Basophil% 0.5 % (0-1); Eosinophil# 0.14 X10^3/uL; Eosinophils% 2.4 % (0-5); Hematocrit 29.4 % (40-54); Hemoglobin 9.1 g/dL (13.0-16.5); Lymphocyte # 0.78 X10^3/ul (4.0); Lymphocyte % 13.2 % (19-41); Mean Corpuscular Hgb 28.6 pg (27.0-32.0); Mean Corpuscular Volume 92.5 fL (80-94); Mean Platelet Vol. 11.2 fl (6.2-12.0); Monocyte# 0.55 X10^3/uL; Monocyte% 9.3 % (0-10); NRBC Flagged by Analyzer 0 % (0-5); Neutrophil # 4.38 X10^3/uL (2.7-7.7); Neutrophil % 74.4 % (47-70); Platelet Count 175 K/mm3 (150-450); RBC Distribution Width CV 16.3 % (11.6-14.6); RBC Distribution Width SD 55.9 fl (35.1-43.9); Red Blood Count 3.18 M/mm3 (4.6-6.2); White Blood Count 5.9 K/mm3 (4.4-11.0)
== END ==
PROVIDERS: Family Medicine; Family Provider Family Medicine; PCP Family Medicine; Referring Provider Family Medicine; Visit Provider Family Medicine
DX: E11.9 Type 2 diabetes mellitus without complications (principal); D63.8 Anemia in other chronic diseases classified elsewhere
CPT/HCPCS: 36415; 85025

== ENCOUNTER → 2019-10-14 08:59 | Outpatient (CLI) | payer MEDICARE, SELFPAY ==
[2019-06-13 13:53] VITALS: BMI 23.4
[2019-10-14 10:08] LABS: AST(SGOT) 25 U/L (15-37); Alanine Aminotransfer ALT/SGPT 28 U/L (16-61); Albumin, Serum 3.7 g/dL (3.2-5.0); Alkaline Phosphatase 109 U/L (45-117); Bilirubin, Direct 0.32 mg/dL (0.00-0.30); Cholesterol 155 mg/dL (200); Globulin 3.9 g/dL (2.2-4.2); High Density Lipoprotein 39 mg/dL; Protein, Total 7.6 g/dL (6.4-8.2); Triglycerides 162 mg/dL; Very Low Density Lipoprotein 32 mg/dL (5-40)
[2019-10-14 10:24] LABS: Microalbumin:Creatinine Ratio 592.8 mg/g CRE (<30 mg/g CRE)
== END ==
PROVIDERS: Family Medicine; Physician Assistant Medical; Family Provider Family Medicine; PCP Family Medicine; Referring Provider Urology; Visit Provider Urology
DX: R97.20 Elevated prostate specific antigen [PSA] (principal); E11.9 Type 2 diabetes mellitus without complications; E78.5 Hyperlipidemia, unspecified
CPT/HCPCS: 36415; 80061; 80076; 82043; 82570; 84153

== ENCOUNTER → 2019-10-31 11:10 | Outpatient (CLI) | payer MEDICARE, SELFPAY ==
[2019-10-31 09:20] VITALS: BMI 22.8
[2019-10-31 11:42] LABS: Absolute Lymphocyte Count 0.87 X10^3/uL (0.83-4.51); Absolute Neutrophil Count 5.5 X10^3/uL (2.0-7.7); Basophil# 0.04 X10^3/uL; Basophil% 0.5 % (0-1); Eosinophil# 0.12 X10^3/uL; Eosinophils% 1.6 % (0-5); Hematocrit 38.8 % (40-54); Hemoglobin 12.6 g/dL (13.0-16.5); Lymphocyte # 0.87 X10^3/ul (4.0); Lymphocyte % 11.9 % (19-41); Mean Corp Hgb Conc 32.5 g/dL (32-36); Mean Corpuscular Hgb 28.8 pg (27.0-32.0); Mean Corpuscular Volume 88.6 fL (80-94); Mean Platelet Vol. 10.5 fl (6.2-12.0); Monocyte# 0.76 X10^3/uL; Monocyte% 10.4 % (0-10); NRBC Flagged by Analyzer 0 % (0-5); Neutrophil # 5.47 X10^3/uL (2.7-7.7); Neutrophil % 75.2 % (47-70); Platelet Count 258 K/mm3 (150-450); RBC Distribution Width CV 13.5 % (11.6-14.6); RBC Distribution Width SD 43.9 fl (35.1-43.9); Red Blood Count 4.38 M/mm3 (4.6-6.2); White Blood Count 7.3 K/mm3 (4.4-11.0)
[2019-10-31 12:09] LABS: Anion Gap 4 (5-15); BUN 24 mg/dL (7-18); Calcium,Total 9.5 mg/dL (8.5-10.1); Chloride 104 mmol/L (98-107); EST Glomerular Filtration Rate 28 mL/min (>60); Est Glom Filt Rate - Afr Amer 34 mL/min (>60); Glucose 201 mg/dL (74-106); Potassium 3.9 mmol/L (3.5-5.1); Sodium Level 137 mmol/L (136-145)
== END ==
PROVIDERS: PCP Family Medicine; Referring Provider Internal Medicine Cardiovascular Disease; Visit Provider Internal Medicine Cardiovascular Disease
DX: I11.0 Hypertensive heart disease with heart failure (principal); I50.23 Acute on chronic systolic (congestive) heart failure; E78.00 Pure hypercholesterolemia, unspecified
CPT/HCPCS: 36415; 80048; 85025

== ENCOUNTER → 2020-07-06 08:11 | Outpatient (CLI) | payer MEDICARE, SELFPAY ==
[2019-10-31 09:20] VITALS: BMI 22.8
[2020-07-06 08:57] LABS: AST(SGOT) 23 U/L (15-37); Alanine Aminotransfer ALT/SGPT 27 U/L (16-61); Albumin, Serum 3.9 g/dL (3.2-5.0); Alkaline Phosphatase 119 U/L (45-117); Bilirubin, Direct 0.36 mg/dL (0.00-0.30); Cholesterol 130 mg/dL (200); Globulin 4.1 g/dL (2.2-4.2); High Density Lipoprotein 36 mg/dL; Triglycerides 178 mg/dL; Very Low Density Lipoprotein 36 mg/dL (5-40)
[2020-07-06 09:00] LABS: Anion Gap 7 (5-15); BUN 39 mg/dL (7-18); BUN/Creat Ratio 13.6 RATIO (10-20); Calcium,Total 9.2 mg/dL (8.5-10.1); Chloride 98 mmol/L (98-107); Creatinine, Serum 2.87 mg/dL (0.70-1.30); EST Glomerular Filtration Rate 23 mL/min (>60); Est Glom Filt Rate - Afr Amer 28 mL/min (>60); Glucose 256 mg/dL (74-106); Hemoglobin A1c 11.8 % (3.8-5.6); Potassium 3.9 mmol/L (3.5-5.1); Sodium Level 135 mmol/L (136-145)
== END ==
PROVIDERS: PCP Family Medicine; Referring Provider Physician Assistant Medical; Visit Provider Physician Assistant Medical
DX: E11.9 Type 2 diabetes mellitus without complications (principal); E78.00 Pure hypercholesterolemia, unspecified
CPT/HCPCS: 36415; 80048; 80061; 80076; 83036

== ENCOUNTER → 2020-09-24 08:52 | Outpatient (CLI) | payer MEDICARE, SELFPAY ==
[2020-09-22 08:34] VITALS: BMI 22.3
[2020-09-24 09:26] LABS: Absolute Neutrophil Count 6.8 X10^3/uL (2.0-7.7); Basophil# 0.04 X10^3/uL; Basophil% 0.4 % (0-1); Eosinophil# 0.07 X10^3/uL; Eosinophils% 0.7 % (0-5); Hematocrit 41.9 % (40-54); Hemoglobin 13.5 g/dL (13.0-16.5); Lymphocyte % 20.3 % (19-41); Mean Corp Hgb Conc 32.2 g/dL (32-36); Mean Corpuscular Hgb 29.1 pg (27.0-32.0); Mean Corpuscular Volume 90.3 fL (80-94); Mean Platelet Vol. 10.3 fl (6.2-12.0); Monocyte# 0.89 X10^3/uL; NRBC Flagged by Analyzer 0 % (0-5); Neutrophil # 6.83 X10^3/uL (2.7-7.7); Neutrophil % 69.2 % (47-70); Platelet Count 345 K/mm3 (150-450); RBC Distribution Width CV 12.8 % (11.6-14.6); RBC Distribution Width SD 41.8 fl (35.1-43.9); Red Blood Count 4.64 M/mm3 (4.6-6.2); White Blood Count 9.9 K/mm3 (4.4-11.0)
[2020-09-24 09:59] LABS: ALB/GLOB Ratio 0.8 RATIO (0.9-2.4); AST(SGOT) 25 U/L (15-37); Alanine Aminotransfer ALT/SGPT 25 U/L (16-61); Albumin, Serum 3.5 g/dL (3.2-5.0); Alkaline Phosphatase 116 U/L (45-117); Anion Gap 6 (5-15); BUN 30 mg/dL (7-18); BUN/Creat Ratio 12.3 RATIO (10-20); Calcium,Total 9.1 mg/dL (8.5-10.1); Chloride 105 mmol/L (98-107); Creatinine, Serum 2.44 mg/dL (0.70-1.30); EST Glomerular Filtration Rate 28 mL/min (>60); Est Glom Filt Rate - Afr Amer 33 mL/min (>60); Globulin 4.3 g/dL (2.2-4.2); Glucose 82 mg/dL (74-106); Protein, Total 7.8 g/dL (6.4-8.2); Sodium Level 138 mmol/L (136-145)
== END ==
PROVIDERS: PCP Family Medicine; Referring Provider Podiatrist; Visit Provider Podiatrist
DX: E11.622 Type 2 diabetes mellitus with other skin ulcer (principal); L98.499 Non-pressure chronic ulcer of skin of other sites with unspecified severity
CPT/HCPCS: 36415; 80053; 85025

== ENCOUNTER 2020-10-13 11:15 | Outpatient (RCR) | payer MEDICARE, SELFPAY ==
[2020-07-13 07:58] VITALS: BMI 22.4
[2020-09-22 08:34] VITALS: BP 111/51; PULSE 66; RESP 16; TEMP 36.2; BMI 22.3
--- NOTE | 2020-09-22 12:27 | HP.PCM_ITS ---
(1) Ulcer of left foot with fat layer exposed Status: Acute Code(s): L97.522 - Non-pressure chronic ulcer of other part of left foot with fat layer exposed (2) Callus of foot Status: Chronic Code(s): L84 - Corns and callosities Comment: right (3) Diabetes mellitus with neuropathy Status: Acute Qualifiers: Diabetes mellitus type: type 2 Code(s): E11.40 - Type 2 diabetes mellitus with diabetic neuropathy, unspecified (4) Peripheral vascular disease Status: Suspected Code(s): I73.9 - Peripheral vascular disease, unspecified (5) Malnutrition Status: Suspected Code(s): E46 - Unspecified protein-calorie malnutrition (6) Hammertoe of left foot Status: Chronic Code(s): M20.42 - Other hammer toe(s) (acquired), left foot (7) Colonization status Status: Suspected Code(s): Z22.9 - Carrier of infectious disease, unspecified History of Present Illness Date of Service: 09/24/20 Chief Complaint: Left foot ulcer History of Wound: This 74-year-old male was seen for left foot ulcer with an onset of approximately 2 weeks ago. He relates it started as a callus and a blister. The patient as well as his thinks it may have been from wearing his shoe too tight. He is not a full feeling and he has a similar callus pattern on the right foot as well that has not started draining. He reports drainage, discomfort, and skin peeling. His pain is moderate rated as at least a 5 out of 10. He denies a known odor. He thinks it may have been read but has difficulty seeing his foot. He denies any additional known traumas. He denies claudications. Past Medical History Past Medical History: Chronic Problems (Last Reviewed 10/31/19 @ 10:[address] Napoleon Zabala MD) Callus of foot (Chronic) right Hammertoe of left foot (Chronic) Ischemic cardiomyopathy (Chronic) Atherosclerosis of coronary artery bypass graft without angina pectoris (Chronic) CABG x 3: FULTON-distal D1, SVG-OM, SVG-Distal PDA 04/30/2014 Acute on chronic systolic (congestive) heart failure (Chronic) Right bundle branch block (RBBB) (Chronic) Secondary pulmonary arterial hypertension (Chronic) Essential (primary) hypertension (Chronic) HLD (hyperlipidemia) (Chronic) Surgical History: noncontributory, coronary bypass surgery, - - CABG x 3, R inguinal hernia repair. Allergies/Adverse Reactions: Allergies No Known Allergies Allergy (Verified 09/22/20 08:50) Home Medications: Ambulatory Orders Medication Instructions Recorded Aspirin [Aspirin, Baby] 81 mg PO DAILY@0800 09/29/14 pantoprazole 40 mg tablet,delayed 40 mg PO DAILY 30 Days #30 tab 02/07/18 release Ferrous Sulfate [Iron] 325 mg PO DAILY@1200 03/19/19 carvedilol 12.5 mg tablet 12.5 mg PO BID #180 tab 01/14/20 atorvastatin 80 mg tablet 80 mg PO QHS #90 tab 04/14/20 hydralazine 25 mg tablet 25 mg PO TID #270 tab 06/30/20 escitalopram oxalate 10 mg tablet 10 mg PO DAILY 30 Days #60 tab 07/13/20 furosemide 20 mg tablet 60 mg PO DAILY 90 Days #270 tab 09/20/20 Glimepiride 4 mg PO DAILY 09/22/20 Insulin Glargine,Hum.rec.anlog 25 unit SQ DAILY 09/22/20 [Lantus Solostar] hydrALAZINE [Apresoline] 25 mg PO TID 09/22/20 traZODone [Desyrel] 50 mg PO QHS PRN 09/22/20 - Family History Paternal Family History: Family History (Last Reviewed 10/31/19 @ 10:[address] Napoleon Zabala MD) Brother CAD (coronary artery disease) - - Patient notes father with a history of polio with debility secondary to this but otherwise had been healthy and in his 90s. Maternal Family History: Family History (Last Reviewed 10/31/19 @ 10:[address] Napoleon Zabala MD) Brother CAD (coronary artery disease) Heart Disease Sibling Family History: Family History (Last Reviewed 10/31/19 @ 10:[address] Napoleon Zabala MD) Brother CAD (coronary artery disease) Heart Disease Smoking Status: Never smoker Review of Systems Constitutional: Denies: Chills, Fever Cardiovascular: Denies: Edema Respiratory: Denies: Cough Gastrointestinal: Denies: Constipation, Vomiting Musculoskeletal: Reports: Foot Pain. Denies: Leg Pain Skin: Reports: Skin Changes, Wounds Hematologic/ Lymphatic: Denies: Easy Bleeding - Physical Exam Vital Signs Temp Pulse Resp BP 97.1 F L 66 16 111/51 L 09/22/20 08:34 12 08:34 09/22/20 08:34 09/22/20 08:34 General: Alert, Oriented x3, Cooperative, No apparent distress HEENT: Atraumatic Extremities: No cyanosis, Capillary Refill Less than 3 Seconds, No Calf Tenderness - Negative Sarahi present bilateral, Diminished Peripheral Pulses, Edema Skin: Ulcer/ Wound - Skin discontinuity to plantar lateral fifth metatarsal head with adjacent skin peeling and blister formation. After removal of loose nonadherent tissue there is granular base with no exposed capsule or probe to bone. Some of the adjacent distal blister skin was left intact as a biological barrier, - - There is no additional interdigital maceration, necrosis, erythema streaking or purulence. The left foot has a callus subfifth metatarsal head Wound Measurements and Assessment WC - Nurse 1 - General Ulcer Measurement Start: 09/22/20 08:29 Freq: Status: Active Protocol: Activity Type Activity Date Activity User E-Sign Co-Sign Detail Recorded Client Recorded Date Recorded By Document 09/22/20 08:34 [facility] [id number] 09/22/20 08:48 [facility] 09/22/20 08:34 Wound Center Nurse 1 [Ulcer Assessment] #1- L LATERAL FOOT -Combined with other wound No -Current Size (cm) - Length 0.6 -Current Size (cm) - Width 0.4 -Current Size (cm) - Depth 0.1 -Total Square Cm 0.24 -Date of Last Picture (Recall this 09/22/20 field) -Photo Taken Yes -Epithelialization None Present -Tunneling No -Undermining/Tunneling No -Circular Undermining No -Exudate Amt Small -Exudate Type Serosanguineous -Wound Margin Distinct, Outline Attached -Granulation Amt Small (1-33%) -Granulation Quality Red -Slough/Fibrin Yes -Necrosis Amt Large (67-100%) -Necrotic Tissue Type Adherent Slough -Texture (Kasia-wound Skin Appearance) Assessed -Moisture (Kasia-wound Skin Appearance Assessed, ) Maceration -Color (Kasia-wound Skin Appearance) Assessed, Erythema,Palor -Temperature (Kasia-wound Skin No Abnormality Appearance) (Pt Warm) -Tenderness on Palpation (Kasia-wound Yes Skin Appearance) -Ulcer Cleansing Rinsed/ Irrigated with Saline -Foul Odor after Cleansing No -Anesthetic Used 5% Lidocaine Gel [Edema Assessment] -Right Calf (cm) 27.6 -Right Ankle (cm) 16.8 -Left Calf (cm) 27.4 -Left Ankle (cm) 17.1 WC - Nurse 2 - General Ulcer CM Notes Start: 09/22/20 08:29 Freq: Status: Active Protocol: Activity Type Activity Date Activity User E-Sign Co-Sign Detail Recorded Client Recorded Date Recorded By Document 09/22/20 09:09 [id number] 09/22/20 09:12 09/22/20 09:09 Wound Center Nurse 2 [Procedure/Treatment] #1- L LATERAL FOOT -Time 09:09 -Correct Patient Yes -Correct Side, Site, Position Yes -Correct Procedure Yes -Procedure Performed Yes -Type of Procedure Debridement -Clinical Debridement Subcutaneous -Tissue Removed Subcutaneous -Post Debridement (cm) - Length 3.4 -Post Debridement (cm) - Width 1.5 -Post Debridement (cm) - Depth 0.3 -Total Square (Post) (cm) 5.10 -Area of Debridement (cm) - Length 3.4 -Area of Debridement (cm) - Width 1.5 -Total Square (Area) (cm) 5.10 -Tunneling No -Undermining/Tunneling No -Circular Undermining No -Wound/Ulcer Outcome Not Healed -Ulcer Cleansing Rinsed/ Irrigated with Saline -Foul Odor after Cleansing No -Bioengineered Tissue No -Bleeding Controlled with Pressure -Offloading Yes -Type of Offloading Surgical Shoe -Treatment Response Procedure Tolerated Well -Debridement - Subq, 1st 20sq cm Yes [See Physician Procedure note for Specifics] Pain Scale: 0-10 Numeric [Pain] -Is Patient Pain Free? Yes - Nurse 3 - General Ulcer D/C NN Start: 09/22/20 08:29 Freq: Status: Active Protocol: Activity Type Activity Date Activity User E-Sign Co-Sign Detail Recorded Client Recorded Date Recorded By Document 09/22/20 09:29 RI [id number] 09/22/20 09:30 RI 09/22/20 09:29 Wound Care Nurse 3 [Wound Dressing] #1- L LATERAL FOOT -Ulcer Cleansing Rinsed/ Irrigated with Saline -Foul Odor after Cleansing No -Negative Pressure Wound Therapy N/A -Primary Dressing Applied Aquacel AG 4x4 -Primary Dressing Covered/Secured Dry Gauze & with Roll Gauze, Secured with Tape -Aquacel AG 4x4 1 WC - Visit Discharge [Visit Discharge Information] -Notes: LABS, XRAY AND VASCULAR AT HOSPITAL. Musculoskeletal: No Tenderness to Palpation of Joints or Extremities, Muscle Wasting, - - Dorsal contraction of lesser toes with prominent metatarsal heads Neurological: - - Lack of epicritic sensation light touch Psych/Mental Status: Normal Affect, Appropriate Debridement Note Post-Debridement Measurements/Treatment WC - Nurse 2 - General Ulcer CM Notes Start: 09/22/20 08:29 Freq: Status: Active Protocol: Activity Type Activity Date Activity User E-Sign Co-Sign Detail Recorded Client Recorded Date Recorded By Document 09/22/20 09:09 [id number] 09/22/20 09:12 09/22/20 09:09 Wound Center Nurse 2 #1- L LATERAL FOOT -Time 09:09 -Correct Patient Yes -Correct Side, Site, Position Yes -Correct Procedure Yes -Procedure Performed Yes -Type of Procedure Debridement -Clinical Debridement Subcutaneous -Tissue Removed Subcutaneous -Post Debridement (cm) - Length 3.4 -Post Debridement (cm) - Width 1.5 -Post Debridement (cm) - Depth 0.3 -Total Square (Post) (cm) 5.10 -Area of Debridement (cm) - Length 3.4 -Area of Debridement (cm) - Width 1.5 -Total Square (Area) (cm) 5.10 -Tunneling No -Undermining/Tunneling No -Circular Undermining No -Wound/Ulcer Outcome Not Healed -Ulcer Cleansing Rinsed/ Irrigated with Saline -Foul Odor after Cleansing No -Bioengineered Tissue No -Bleeding Controlled with Pressure -Offloading Yes -Type of Offloading Surgical Shoe -Treatment Response Procedure Tolerated Well -Debridement - Subq, 1st 20sq cm Yes Pain Scale: 0-10 Numeric Is Patient Pain Free? Yes - Nurse 3 - General Ulcer D/C NN Start: 09/22/20 08:29 Freq: Status: Active Protocol: Activity Type Activity Date Activity User E-Sign Co-Sign Detail Recorded Client Recorded Date Recorded By Document 09/22/20 09:29 RI [id number] 09/22/20 09:30 RI 09/22/20 09:29 Wound Care Nurse 3 #1- L LATERAL FOOT -Ulcer Cleansing Rinsed/ Irrigated with Saline -Foul Odor after Cleansing No -Negative Pressure Wound Therapy N/A -Primary Dressing Applied Aquacel AG 4x4 -Primary Dressing Covered/Secured with Dry Gauze & Roll Gauze, Secured with Tape -Aquacel AG 4x4 1 WC - Visit Discharge Notes: LABS, XRAY AND VASCULAR AT HOSPITAL. Wound debrided: plantar lateral forefoot Laterality: Left Wound Grade/Stage: grade 1 Type of Debridement: Excisional debridement Anesthesia Used: 5% Lidocaine Gel Depth: in the subcutaneous layer Percentage of wound debrided: 100 Instrument Used: #15 blade Tissue Removed: fibrous, devitalized subcutaneous, biofilm, slough Severity: Fat Layer Exposed Amount of bleeding with debridement: Mild Bleeding Controlled with: Pressure Patient tolerated procedure well Assessment/Plan Active Problems (Last Reviewed 10/31/19 @ 10:[address] Napoleon Zabala MD) Ulcer of left foot with fat layer exposed (Acute) Callus of foot (Chronic) right Diabetes mellitus with neuropathy (Acute) Hammertoe of left foot (Chronic) Assessment: Left foot ulcer with fat layer exposed, left (subfifth metatarsal head). Right foot subfifth metatarsal head callus. Diabetes with suspected neuropathy. Peripheral vascular disease work-up in process. Hammertoes with forefoot deformities bilateral. Malnutrition suspected Plan: I reviewed and discussed his plan. Subcutaneous excisional debridement was performed as noted in the clinical panel. He was advised to change his dressing daily with Aquacel Ag. To change his daily wash with antibacterial soap and water. I recommend offloading bilateral subfifth metatarsal head areas with surgical shoes. These were fitted and dispensed today. To try to keep mostly weight on the heel. Basic labs were ordered including CBC and CMP. I would also like to review his most recent hemoglobin A1c level and will see if this is on file. X-rays were ordered of the left foot to evaluate for any evidence of trauma. Due to the periulcer inflammation infection screening will be started with a wound culture including aerobic, anaerobic, and MRSA PCR. This was obtained in clinic and will follow the results. He understands the inflammatory changes may be secondary to mechanical pressure and therefore local wound care and routine soap use will be addressed today. An antibiotic will be considered if these inflammatory changes do not reside with his new treatment planned and depending on what organisms grow. I recommend nutritional supplementation optimize healing including Neri nutritional supplement pack daily. Noninvasive arterial studies including segmental pressures, MEHREEN, systolic toe pressures were ordered to screen for any vascular impairment to the lower extremity. I recommend that he return to the wound healing center 1 week or call sooner if he has any questions or concerns. I answered all his questions.
[2020-09-29 08:24] VITALS: BP 121/63; PULSE 77; RESP 18; TEMP 36.3; BMI 22.3
--- NOTE | 2020-09-29 09:00 | PCM.WC.PN ---
(1) Ulcer of left foot with fat layer exposed Status: Acute Code(s): L97.522 - Non-pressure chronic ulcer of other part of left foot with fat layer exposed (2) Diabetes mellitus with neuropathy Status: Acute Qualifiers: Diabetes mellitus type: type 2 Code(s): E11.40 - Type 2 diabetes mellitus with diabetic neuropathy, unspecified (3) Peripheral vascular disease Status: Chronic Code(s): I73.9 - Peripheral vascular disease, unspecified (4) Malnutrition Status: Suspected Code(s): E46 - Unspecified protein-calorie malnutrition (5) Hammertoe of left foot Status: Chronic Code(s): M20.42 - Other hammer toe(s) (acquired), left foot (6) Colonization status Status: Ruled-out Code(s): Z22.9 - Carrier of infectious disease, unspecified Type of Wound Date of Service: 09/29/20 Chief Complaint: Left foot ulcer History of Wound: This 74-year-old male was seen for left foot ulcer return to the wound healing center today. He has been changing the dressing as advised. He wears offloading surgical shoe. He reports drainage, discomfort, and skin peeling. His pain is moderate rated as at least a 5 out of 10. He denies a known odor. He did not get his foot x-ray scheduled noninvasive blood flow studies yet. He denies odor or redness. Progress of Wound: Stabilizing - Physical Exam Vital Signs Temp Pulse Resp BP 97.4 F L 77 18 121/63 H 09/29/20 08:24 09/29/20 08:24 09/29/20 08:24 09/29/20 08:24 General: Alert, Oriented x3, Cooperative, No apparent distress HEENT: Atraumatic Extremities: No cyanosis, Capillary Refill Less than 3 Seconds, No Calf Tenderness, Diminished Peripheral Pulses, Edema Skin: Ulcer/ Wound - No purulence, erythema, streaking, odor, infection. The ulcer bed is pale and granular. There is no deep tissue exposed, maceration or necrosis. No bogginess or fluctuance. The adjacent skin is hairless and atrophic Wound Measurements and Assessment WC - Nurse 1 - General Ulcer Measurement Start: 09/22/20 08:29 Freq: Status: Active Protocol: Activity Type Activity Date Activity User E-Sign Co-Sign Detail Recorded Client Recorded Date Recorded By Document 12/16/20 08:24 MARK [id number] 09/29/20 08:30 DL 09/29/20 08:24 Wound Center Nurse 1 [Ulcer Assessment] #1- L LATERAL FOOT -Current Size (cm) - Length 1.5 -Current Size (cm) - Width 1.4 -Current Size (cm) - Depth 0.1 -Total Square Cm 2.10 -Photo Taken No -Exudate Amt Small -Exudate Type Serosanguineous -Wound Margin Distinct, Outline Attached -Granulation Amt Large (67-100%) -Granulation Quality Red -Necrosis Amt Small (1-33%) -Necrotic Tissue Type Adherent Slough -Structure Exposed N/A -Texture (Kasia-wound Skin Appearance) Scarring -Moisture (Kasia-wound Skin Appearance Dry/Scaly ) -Color (Kasia-wound Skin Appearance) No Abnormality -Temperature (Kasia-wound Skin No Abnormality Appearance) (Pt Warm) -Tenderness on Palpation (Kasia-wound No Skin Appearance) -Ulcer Cleansing Rinsed/ Irrigated with Saline -Foul Odor after Cleansing No -Anesthetic Used 4% Lidocaine Solution WC - Nurse 2 - General Ulcer CM Notes Start: 09/22/20 08:29 Freq: Status: Active Protocol: Activity Type Activity Date Activity User E-Sign Co-Sign Detail Recorded Client Recorded Date Recorded By Document 09/29/20 08:48 MICHA [id number] 09/29/20 08:52 MICHA 09/29/20 08:48 Wound Center Nurse 2 [Procedure/Treatment] -Time 08:49 -Correct Patient Yes -Correct Side, Site, Position Yes -Correct Procedure Yes -Procedure Performed Yes -Type of Procedure Incision & Drainage -Clinical Debridement Subcutaneous -Tissue Removed Subcutaneous -Post Debridement (cm) - Length 3 -Post Debridement (cm) - Width 1 -Post Debridement (cm) - Depth 0.2 -Total Square (Post) (cm) 3 -Area of Debridement (cm) - Length 3 -Area of Debridement (cm) - Width 1 -Total Square (Area) (cm) 3 -Tunneling No -Undermining/Tunneling No -Circular Undermining No -Wound/Ulcer Outcome Not Healed -Ulcer Cleansing Rinsed/ Irrigated with Saline -Foul Odor after Cleansing No -Bioengineered Tissue No -Bleeding Controlled with Pressure -Offloading Yes -Type of Offloading Surgical Shoe -Treatment Response Procedure Tolerated Well -Debridement - Subq, 1st 20sq cm Yes [See Physician Procedure note for Specifics] Pain Scale: 0-10 Numeric [Pain] -Is Patient Pain Free? Yes Musculoskeletal: No Tenderness to Palpation of Joints or Extremities, Muscle Wasting Neurological: - - Lack of epicritic sensation light touch is consistent with neuropathy status Psych/Mental Status: Normal Affect, Appropriate Debridement Note Post-Debridement Measurements/Treatment WC - Nurse 2 - General Ulcer CM Notes Start: 09/22/20 08:29 Freq: Status: Active Protocol: Activity Type Activity Date Activity User E-Sign Co-Sign Detail Recorded Client Recorded Date Recorded By Document 09/22/20 09:09 [id number] 09/22/20 09:12 Document 09/29/20 08:48 [id number] 09/29/20 08:52 09/22/20 09/29/20 09:09 08:48 Wound Center Nurse 2 #1- L LATERAL FOOT -Time 09:09 08:49 -Correct Patient Yes Yes -Correct Side, Site, Position Yes Yes -Correct Procedure Yes Yes -Procedure Performed Yes Yes -Type of Procedure Debridement Incision & Drainage -Clinical Debridement Subcutaneous Subcutaneous -Tissue Removed Subcutaneous Subcutaneous -Post Debridement (cm) - Length 3.4 3 -Post Debridement (cm) - Width 1.5 1 -Post Debridement (cm) - Depth 0.3 0.2 -Total Square (Post) (cm) 5.10 3 -Area of Debridement (cm) - Length 3.4 3 -Area of Debridement (cm) - Width 1.5 1 -Total Square (Area) (cm) 5.10 3 -Tunneling No No -Undermining/Tunneling No No -Circular Undermining No No -Wound/Ulcer Outcome Not Healed Not Healed -Ulcer Cleansing Rinsed/ Rinsed/ Irrigated with Irrigated with Saline Saline -Foul Odor after Cleansing No No -Bioengineered Tissue No No -Bleeding Controlled with Pressure Pressure -Offloading Yes Yes -Type of Offloading Surgical Shoe Surgical Shoe -Treatment Response Procedure Procedure Tolerated Well Tolerated Well -Debridement - Subq, 1st 20sq cm Yes Yes Pain Scale: 0-10 Numeric Is Patient Pain Free? Yes Yes ALFREDO - Nurse 3 - General Ulcer D/C NN Start: 09/22/20 08:29 Freq: Status: Active Protocol: Activity Type Activity Date Activity User E-Sign Co-Sign Detail Recorded Client Recorded Date Recorded By Document 09/22/20 09:29 NE [id number] 09/22/20 09:30 NE 09/22/20 09:29 Wound Care Nurse 3 #1- L LATERAL FOOT -Ulcer Cleansing Rinsed/ Irrigated with Saline -Foul Odor after Cleansing No -Negative Pressure Wound Therapy N/A -Primary Dressing Applied Aquacel AG 4x4 -Primary Dressing Covered/Secured with Dry Gauze & Roll Gauze, Secured with Tape -Aquacel AG 4x4 1 WC - Visit Discharge Notes: LABS, XRAY AND VASCULAR AT HOSPITAL. Wound debrided: sub 5th metatarsal head Laterality: Left Type of Debridement: Excisional debridement Anesthesia Used: 5% Lidocaine Gel Depth: in the subcutaneous layer Percentage of wound debrided: 100 Instrument Used: #15 blade Tissue Removed: fibrous, devitalized subcutaneous, biofilm, slough Severity: Fat Layer Exposed Amount of bleeding with debridement: Mild Bleeding Controlled with: Pressure Patient tolerated procedure well Assessment/Plan Active Problems (Last Reviewed 10/31/19 @ 10:[address] Napoleon Zabala MD) Ulcer of left foot with fat layer exposed (Acute) Callus of foot (Chronic) right Diabetes mellitus with neuropathy (Acute) Peripheral vascular disease (Chronic) Hammertoe of left foot (Chronic) Assessment: Left foot ulcer with fat layer exposed, left (subfifth metatarsal head). Right foot subfifth metatarsal head callus. Diabetes with suspected neuropathy. Peripheral vascular disease work-up in process. Hammertoes with forefoot deformities bilateral. Malnutrition suspected Plan: I reviewed and discussed his plan. Subcutaneous excisional debridement was performed as noted in the clinical panel. He was advised to change his dressing daily with Aquacel Ag. To change his daily wash with antibacterial soap and water. I recommend offloading bilateral subfifth metatarsal head areas with surgical shoes. These were fitted and dispensed today. To try to keep mostly weight on the heel. Basic labs were ordered including CBC and CMP. I would also like to review his most recent hemoglobin A1c level and will see if this is on file. X-rays were ordered of the left foot to evaluate for any evidence of trauma. He did not get this yet and he was encouraged to do so. Due to the periulcer inflammation infection screening will be started with a wound culture including aerobic, anaerobic, and MRSA PCR. There is no bacterial growth so far. He understands the inflammatory changes may be secondary to mechanical pressure and therefore local wound care and routine soap use will be addressed today. He has been using the surgical shoe well. I fabricated dual density offloading liners today to take additional pressure off of the ulcer site. I recommend nutritional supplementation optimize healing including Neri nutritional supplement pack daily. Noninvasive arterial studies including segmental pressures, MEHREEN, systolic toe pressures were ordered to screen for any vascular impairment to the lower extremity. I recommend that he return to the wound healing center 1 week or call sooner if he has any questions or concerns. I answered all his questions.
--- NOTE | 2020-09-29 09:23 | RAD_ITS ---
STUDY: X-RAY - LEFT FOOT CLINICAL: Male, 74 years old. ULCER ON DISTAL LATERAL FOOT AND 5TH DIGIT TECHNIQUE: 3 view(s) of the foot. COMPARISON: None. FINDINGS: Normal talus, calcaneus, and tarsal bones. Large posterior calcaneal enthesophyte. Tiny plantar calcaneal enthesophyte. Normal visualized subtalar, talonavicular, calcaneocuboid, tarsal and tarsometatarsal articulations. Normal metatarsi. Normal metatarsophalangeal joint of the great toe. There is a bipartite tibial sesamoid. Normal interphalangeal joint of the great toe. Normal phalanges of the great toe. Normal second through fifth metatarsophalangeal joints. Normal interphalangeal joints and phalanges of the lesser toes. The soft tissue structures are unremarkable. RAD/Foot min 3 Views IMPRESSION: Normal x-ray examination of the foot. No radiographic evidence of osteomyelitis. Electronically Signed: Ray Zamorano MD at 8:27 EST Tel , Service support ,
[2020-10-06 09:00] VITALS: BP 124/60; PULSE 67; TEMP 36.2; BMI 22.3
--- NOTE | 2020-10-06 21:08 | PCM.WC.PN ---
(1) Ulcer of left foot with fat layer exposed Status: Chronic Code(s): L97.522 - Non-pressure chronic ulcer of other part of left foot with fat layer exposed (2) Diabetes mellitus with neuropathy Status: Acute Qualifiers: Diabetes mellitus type: type 2 Code(s): E11.40 - Type 2 diabetes mellitus with diabetic neuropathy, unspecified (3) Peripheral vascular disease Status: Chronic Code(s): I73.9 - Peripheral vascular disease, unspecified (4) Malnutrition Status: Suspected Code(s): E46 - Unspecified protein-calorie malnutrition (5) Hammertoe of left foot Status: Chronic Code(s): M20.42 - Other hammer toe(s) (acquired), left foot Type of Wound Date of Service: 10/06/20 Chief Complaint: Left foot ulcer History of Wound: He got his foot x-ray and would like to discuss results today. He is scheduled to have noninvasive vascular studies performed next week. This 74-year-old male was seen for left foot ulcer return to the wound healing center today. He has been changing the dressing as advised. He wears offloading surgical shoe. He reports drainage, discomfort, and skin peeling. He denies a known odor. He denies odor or redness. Progress of Wound: Stabilizing - Physical Exam Vital Signs Temp Pulse Resp BP 97.2 F L 67 18 124/60 H 10/06/20 09:00 10/06/20 09:00 09/29/20 08:24 10/06/20 09:00 General: Alert, Oriented x3, Cooperative, No apparent distress HEENT: Atraumatic Extremities: No cyanosis, Capillary Refill Less than 3 Seconds, No Calf Tenderness, Diminished Peripheral Pulses, Edema Skin: Ulcer/ Wound - No purulence, erythema, streaking, odor, infection. Atrophic skin. The ulcer is dry with some intermittent fibrous and eschar tissue. No deep tissue exposure noted Wound Measurements and Assessment WC - Nurse 1 - General Ulcer Measurement Start: 09/22/20 08:29 Freq: Status: Active Protocol: Activity Type Activity Date Activity User E-Sign Co-Sign Detail Recorded Client Recorded Date Recorded By Document 10/06/20 09:00 KR [id number] 10/06/20 09:06 KR 10/06/20 09:00 Wound Center Nurse 1 [Ulcer Assessment] #1- L LATERAL FOOT -Current Size (cm) - Length 2.5 -Current Size (cm) - Width 0.7 -Current Size (cm) - Depth 0.1 -Total Square Cm 1.75 -Exudate Amt None Present -Wound Margin Distinct, Outline Attached -Granulation Amt None Present (0 %) -Necrosis Amt Small (1-33%) -Necrotic Tissue Type Adherent Slough -Texture (Kasia-wound Skin Appearance) Assessed, Scarring -Moisture (Kasia-wound Skin Appearance Assessed,Dry/ ) Scaly -Color (Kasia-wound Skin Appearance) No Abnormality, Assessed -Temperature (Kasia-wound Skin No Abnormality Appearance) (Pt Warm) -Tenderness on Palpation (Kasia-wound No Skin Appearance) -Ulcer Cleansing Rinsed/ Irrigated with Saline -Foul Odor after Cleansing No -Anesthetic Used 4% Lidocaine Solution ALFREDO - Nurse 2 - General Ulcer CM Notes Start: 09/22/20 08:29 Freq: Status: Active Protocol: Activity Type Activity Date Activity User E-Sign Co-Sign Detail Recorded Client Recorded Date Recorded By Document 10/06/20 09:18 MICHA [id number] 10/06/20 09:21 MICHA 10/06/20 09:18 Wound Center Nurse 2 [Procedure/Treatment] -Time 09:19 -Correct Patient Yes -Correct Side, Site, Position Yes -Correct Procedure Yes -Procedure Performed Yes -Type of Procedure Debridement -Clinical Debridement Subcutaneous -Tissue Removed Subcutaneous -Post Debridement (cm) - Length 2.5 -Post Debridement (cm) - Width 0.8 -Post Debridement (cm) - Depth 0.1 -Total Square (Post) (cm) 2.00 -Area of Debridement (cm) - Length 2.5 -Area of Debridement (cm) - Width 0.8 -Total Square (Area) (cm) 2.00 -Tunneling No -Undermining/Tunneling No -Circular Undermining No -Wound/Ulcer Outcome Not Healed -Ulcer Cleansing Rinsed/ Irrigated with Saline -Foul Odor after Cleansing No -Bioengineered Tissue No -Bleeding Controlled with Pressure -Offloading Yes -Type of Offloading Surgical Shoe -Treatment Response Procedure Tolerated Well -Debridement - Subq, 1st 20sq cm Yes [See Physician Procedure note for Specifics] Pain Scale: 0-10 Numeric [Pain] -Is Patient Pain Free? Yes ALFREDO - Nurse 3 - General Ulcer D/C NN Start: 12/09/20 08:29 Freq: Status: Active Protocol: Activity Type Activity Date Activity User E-Sign Co-Sign Detail Recorded Client Recorded Date Recorded By Document 10/06/20 09:31 [email or web address] [id number] 10/06/20 09:37 FREDDIE 10/06/20 09:31 Wound Care Nurse 3 [Wound Dressing] #1- L LATERAL FOOT -Ulcer Cleansing Rinsed/ Irrigated with Saline -Primary Dressing Applied C Hydrogel ($) -Primary Dressing Covered/Secured Dry Gauze, with Secured with Tape Pain Scale: 0-10 Numeric [Pain] -Is Patient Pain Free? Yes WC - Visit Discharge [Visit Discharge Information] -Discharge Condition Stable -Ambulatory Status Ambulatory -Transportation Private Auto -Accompanied by Musculoskeletal: No Tenderness to Palpation of Joints or Extremities, Muscle Wasting Neurological: Sensory exam intact to light touch and pain, - Psych/Mental Status: Normal Affect, Appropriate Debridement Note Post-Debridement Measurements/Treatment WC - Nurse 2 - General Ulcer CM Notes Start: 09/22/20 08:29 Freq: Status: Active Protocol: Activity Type Activity Date Activity User E-Sign Co-Sign Detail Recorded Client Recorded Date Recorded By Document 09/22/20 09:09 [id number] 09/22/20 09:12 Document 09/29/20 08:48 [id number] 09/29/20 08:52 Document 10/06/20 09:18 [id number] 10/06/20 09:21 09/22/20 09/29/20 10/06/20 09:09 08:48 09:18 Wound Center Nurse 2 #1- L LATERAL FOOT -Time 09:09 08:49 09:19 -Correct Patient Yes Yes Yes -Correct Side, Site, Position Yes Yes Yes -Correct Procedure Yes Yes Yes -Procedure Performed Yes Yes Yes -Type of Procedure Debridement Incision & Debridement Drainage -Clinical Debridement Subcutaneous Subcutaneous Subcutaneous -Tissue Removed Subcutaneous Subcutaneous Subcutaneous -Post Debridement (cm) - Length 3.4 3 2.5 -Post Debridement (cm) - Width 1.5 1 0.8 -Post Debridement (cm) - Depth 0.3 0.2 0.1 -Total Square (Post) (cm) 5.10 3 2.00 -Area of Debridement (cm) - Length 3.4 3 2.5 -Area of Debridement (cm) - Width 1.5 1 0.8 -Total Square (Area) (cm) 5.10 3 2.00 -Tunneling No No No -Undermining/Tunneling No No No -Circular Undermining No No No -Wound/Ulcer Outcome Not Healed Not Healed Not Healed -Ulcer Cleansing Rinsed/ Rinsed/ Rinsed/ Irrigated with Irrigated with Irrigated with Saline Saline Saline -Foul Odor after Cleansing No No No -Bioengineered Tissue No No No -Bleeding Controlled with Pressure Pressure Pressure -Offloading Yes Yes Yes -Type of Offloading Surgical Shoe Surgical Shoe Surgical Shoe -Treatment Response Procedure Procedure Procedure Tolerated Well Tolerated Well Tolerated Well -Debridement - Subq, 1st 20sq cm Yes Yes Yes Pain Scale: 0-10 Numeric Is Patient Pain Free? Yes Yes Yes - Nurse 3 - General Ulcer D/C NN Start: 09/22/20 08:29 Freq: Status: Active Protocol: Activity Type Activity Date Activity User E-Sign Co-Sign Detail Recorded Client Recorded Date Recorded By Document 09/22/20 09:29 MT [id number] 09/22/20 09:30 MT Document 09/29/20 09:04 DL [id number] 09/29/20 09:05 DL Document 10/06/20 09:31 KR [id number] 10/06/20 09:37 KR 09/22/20 09/29/20 10/06/20 09:29 09:04 09:31 Wound Care Nurse 3 #1- L LATERAL FOOT -Ulcer Cleansing Rinsed/ Rinsed/ Rinsed/ Irrigated with Irrigated with Irrigated with Saline Saline Saline -Foul Odor after Cleansing No No -Negative Pressure Wound Therapy N/A -Primary Dressing Applied Aquacel AG 4x4 Aquacel AG 4x4 C Hydrogel ($) -Primary Dressing Covered/Secured with Dry Gauze & Dry Gauze & Dry Gauze, Roll Gauze, Roll Gauze, Secured with Secured with Secured with Tape Tape Tape -Aquacel AG 4x4 1 1 Treatment Response Procedure Tolerated Well Pain Scale: 0-10 Numeric Is Patient Pain Free? Yes Yes - Visit Discharge Discharge Condition Stable Stable Ambulatory Status Ambulatory Ambulatory Transportation Private Auto Private Auto Accompanied by Notes: LABS, XRAY AND VASCULAR AT HOSPITAL. Wound debrided: plantar lateral foot Laterality: Left Wound Grade/Stage: grade 1 Type of Debridement: Excisional debridement Anesthesia Used: 5% Lidocaine Gel Depth: in the subcutaneous layer Percentage of wound debrided: 100 Instrument Used: #15 blade Tissue Removed: fibrous, devitalized subcutaneous, biofilm, slough Severity: Fat Layer Exposed Amount of bleeding with debridement: Mild Bleeding Controlled with: Pressure Patient tolerated procedure well Assessment/Plan Clinical Impression(s) from Imaging Studies Foot X-Ray 09/29/20 09:23 IMPRESSION: Normal x-ray examination of the foot. No radiographic evidence of osteomyelitis. Electronically Signed: Ray Zamorano MD at 8:27 EST Tel , Service support , Active Problems (Last Reviewed 10/31/19 @ 10:[address] Napoleon Zabala MD) Ulcer of left foot with fat layer exposed (Chronic) Callus of foot (Chronic) right Diabetes mellitus with neuropathy (Acute) Peripheral vascular disease (Chronic) Hammertoe of left foot (Chronic) Assessment: Left foot ulcer with fat layer exposed, left (subfifth metatarsal head). Diabetes with suspected neuropathy. Peripheral vascular disease work-up in process. Hammertoes with forefoot deformities bilateral. Malnutrition suspected Plan: I reviewed and discussed his plan. Subcutaneous excisional debridement was performed as noted in the clinical panel. He was advised to change his dressing daily with Aquacel Ag. To change his daily wash with antibacterial soap and water. I recommend offloading bilateral subfifth metatarsal head areas with surgical shoes. These were fitted and dispensed today. To try to keep mostly weight on the heel. Basic labs were ordered including CBC and CMP. I would also like to review his most recent hemoglobin A1c level and will see if this is on file. X-rays were ordered of the left foot. This was reviewed without fracture, dislocation, soft tissue emphysema, osseous destruction or foreign body. Due to the periulcer inflammation infection screening will be started with a wound culture including aerobic, anaerobic, and MRSA PCR. There is no bacterial growth so far. He understands the inflammatory changes may be secondary to mechanical pressure and therefore local wound care and routine soap use will be addressed today. He has been using the surgical shoe well. I fabricated dual density offloading liners today to take additional pressure off of the ulcer site. I recommend nutritional supplementation optimize healing including Neri nutritional supplement pack daily. Noninvasive arterial studies including segmental pressures, MEHREEN, systolic toe pressures were ordered to screen for any vascular impairment to the lower extremity. This is scheduled for next week. I recommend that he return to the wound healing center 1 week or call sooner if he has any questions or concerns. I answered all his questions.
--- NOTE | 2020-10-13 08:47 | ART_ITS ---
Reason For Study: LEFT FOOT ULCER Procedure A bilateral lower extremity continuous wave Doppler with analog waveform analysis,segmental pressures,and ankle brachial indexes without exercise. Left Segmental Pressures Left brachial= 137mmHg. Left thigh = NON-compressiblemmHg. Left calf = NON-compressiblemmHg. The left dorsalis pedis waveforms are monophasic. The left posterior tibial artery waveforms are monophasic. Right Segmental Pressures Right brachial= 144mmHg. Right thigh = NON-compressiblemmHg. Right calf = 189mmHg. Right posterior tibial artery = 96mmHg. Right dorsalis pedis artery = 158mmHg. Right digit = 55 mmHg. The right dorsalis pedis waveforms are monophasic. The right posterior tibial artery waveforms are monophasic. Indices The right ankle brachial index by the dorsalis pedis is 1.1. The right ankle brachial index by the posterior tibial artery is 0.67. The left ankle brachial index by the dorsalis pedis is 1.1. The left ankle brachial index by the posterior tibial artery is 0.63. Interpretation Summary Monophasic Doppler waveforms are noted at ankle level bilaterally. Pulse-volume recording waveform amplitudes are diminished at digital level on the left, but satisfactory at all other levels bilaterally. Resting ankle-brachial indices are normal. Digital-brachial indices are moderately/severely diminished. Arterial flow appears to be normal at ankle level bilaterally based upon resting ankle-brachial indices. 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 There appears to be [id number] impairment of arterial flow at digital level bilaterally. Ordering Physician: Aleyda Mandujano Referring Physician: Saman Arenas Performed By: Isela Werner RVT, RDCS
[2020-10-13 11:47] VITALS: BP 152/74; PULSE 68; RESP 18; TEMP 36.6; BMI 22.3
--- NOTE | 2020-10-13 12:50 | PCM.WC.PN ---
(1) Ulcer of left foot with fat layer exposed Status: Chronic Code(s): L97.522 - Non-pressure chronic ulcer of other part of left foot with fat layer exposed (2) Diabetes mellitus with neuropathy Status: Acute Qualifiers: Diabetes mellitus type: type 2 Code(s): E11.40 - Type 2 diabetes mellitus with diabetic neuropathy, unspecified (3) Peripheral vascular disease Status: Chronic Code(s): I73.9 - Peripheral vascular disease, unspecified (4) Malnutrition Status: Suspected Code(s): E46 - Unspecified protein-calorie malnutrition (5) Hammertoe of left foot Status: Chronic Code(s): M20.42 - Other hammer toe(s) (acquired), left foot Type of Wound Date of Service: 10/13/20 Chief Complaint: Left foot ulcer History of Wound: He got his noninvasive vascular studies completed this morning, and would like to discuss results today. This 74-year-old male was seen for left foot ulcer return to the wound healing center today. He has been changing the dressing as advised. He wears offloading surgical shoe. He reports drainage, discomfort, and skin peeling. He denies a known odor. He denies odor or redness. Progress of Wound: Stabilizing - Physical Exam Vital Signs Temp Pulse Resp BP 97.8 F 68 18 152/74 H 10/13/20 11:47 10/13/20 11:47 10/13/20 11:47 10/13/20 11:47 General: Alert, Oriented x3, Cooperative, No apparent distress HEENT: Atraumatic Extremities: No cyanosis, No edema, Capillary Refill Less than 3 Seconds, No Calf Tenderness, Diminished Peripheral Pulses Skin: Ulcer/ Wound - No purulence, erythema, string, odor, infection. Ulcers moist eschar with intermittent fibrous and granulation tissue. No exposed bone or capsule. Adjacent skin is hairless and atrophic Wound Measurements and Assessment WC - Nurse 1 - General Ulcer Measurement Start: 09/22/20 08:29 Freq: Status: Active Protocol: Activity Type Activity Date Activity User E-Sign Co-Sign Detail Recorded Client Recorded Date Recorded By Document 10/13/20 11:47 DL [id number] 10/13/20 11:49 DL 10/13/20 11:47 Wound Center Nurse 1 [Ulcer Assessment] #1- L LATERAL FOOT -Current Size (cm) - Length 2.2 -Current Size (cm) - Width 0.6 -Current Size (cm) - Depth 0.2 -Total Square Cm 1.32 -Photo Taken No -Exudate Amt Small -Wound Margin Distinct, Outline Attached -Granulation Amt Small (1-33%) -Granulation Quality Red -Necrosis Amt Small (1-33%) -Necrotic Tissue Type Adherent Slough -Structure Exposed N/A -Texture (Kasia-wound Skin Appearance) Scarring -Moisture (Kasia-wound Skin Appearance No Abnormality, ) Dry/Scaly -Color (Kasia-wound Skin Appearance) Erythema,Rubor -Tenderness on Palpation (Kasia-wound No Skin Appearance) -Ulcer Cleansing Rinsed/ Irrigated with Saline -Foul Odor after Cleansing No -Anesthetic Used 4% Lidocaine Solution ALFREDO - Nurse 2 - General Ulcer CM Notes Start: 09/22/20 08:29 Freq: Status: Active Protocol: Activity Type Activity Date Activity User E-Sign Co-Sign Detail Recorded Client Recorded Date Recorded By Document 10/13/20 11:56 MICHA [id number] 10/13/20 12:00 MICHA 10/13/20 11:56 Wound Center Nurse 2 [Procedure/Treatment] -Time 11:57 -Correct Patient Yes -Correct Side, Site, Position Yes -Correct Procedure Yes -Procedure Performed Yes -Type of Procedure Debridement -Clinical Debridement Epidermis / Dermis -Tissue Removed Epidermis, Dermis -Post Debridement (cm) - Length 2.2 -Post Debridement (cm) - Width 0.6 -Post Debridement (cm) - Depth 0.2 -Total Square (Post) (cm) 1.32 -Area of Debridement (cm) - Length 2.2 -Area of Debridement (cm) - Width 0.6 -Total Square (Area) (cm) 1.32 -Tunneling No -Undermining/Tunneling No -Circular Undermining No -Wound/Ulcer Outcome Not Healed -Ulcer Cleansing Rinsed/ Irrigated with Saline -Foul Odor after Cleansing No -Bioengineered Tissue No -Bleeding Controlled with Pressure -Offloading Yes -Type of Offloading Surgical Shoe -Treatment Response Procedure Tolerated Well -Debridement - Open, 1st 20sq cm Yes -Debridement - Subq, 1st 20sq cm No [See Physician Procedure note for Specifics] Pain Scale: 0-10 Numeric [Pain] -Is Patient Pain Free? Yes - Nurse 3 - General Ulcer D/C NN Start: 09/22/20 08:29 Freq: Status: Active Protocol: Activity Type Activity Date Activity User E-Sign Co-Sign Detail Recorded Client Recorded Date Recorded By Document 10/13/20 12:10 MARK [id number] 10/13/20 12:10 MARK 10/13/20 12:10 Wound Care Nurse 3 [Wound Dressing] #1- L LATERAL FOOT -Ulcer Cleansing Rinsed/ Irrigated with Saline -Foul Odor after Cleansing No -Other Dressing hydrogel -Primary Dressing Covered/Secured Dry Gauze & with Roll Gauze, Secured with Tape [Post Procedure Tolerated] -Treatment Response Procedure Tolerated Well Pain Scale: 0-10 Numeric [Pain] -Is Patient Pain Free? Yes - Visit Discharge [Visit Discharge Information] -Discharge Condition Stable -Ambulatory Status Ambulatory -Transportation Private Auto Musculoskeletal: No Tenderness to Palpation of Joints or Extremities, Muscle Wasting, - - Prominent fifth metatarsal head and varus rotation fifth toe Psych/Mental Status: Normal Affect, Appropriate Debridement Note Post-Debridement Measurements/Treatment - Nurse 2 - General Ulcer CM Notes Start: 09/22/20 08:29 Freq: Status: Active Protocol: Activity Type Activity Date Activity User E-Sign Co-Sign Detail Recorded Client Recorded Date Recorded By Document 09/22/20 09:09 MICHA [id number] 09/22/20 09:12 Document 09/29/20 08:48 [id number] 09/29/20 08:52 Document 10/06/20 09:18 [id number] 10/06/20 09:21 Document 10/13/20 11:56 [id number] 10/13/20 12:00 09/22/20 09/29/20 10/06/20 09:09 08:48 09:18 Wound Center Nurse 2 #1- L LATERAL FOOT -Time 09:09 08:49 09:19 -Correct Patient Yes Yes Yes -Correct Side, Site, Position Yes Yes Yes -Correct Procedure Yes Yes Yes -Procedure Performed Yes Yes Yes -Type of Procedure Debridement Incision & Debridement Drainage -Clinical Debridement Subcutaneous Subcutaneous Subcutaneous -Tissue Removed Subcutaneous Subcutaneous Subcutaneous -Post Debridement (cm) - Length 3.4 3 2.5 -Post Debridement (cm) - Width 1.5 1 0.8 -Post Debridement (cm) - Depth 0.3 0.2 0.1 -Total Square (Post) (cm) 5.10 3 2.00 -Area of Debridement (cm) - Length 3.4 3 2.5 -Area of Debridement (cm) - Width 1.5 1 0.8 -Total Square (Area) (cm) 5.10 3 2.00 -Tunneling No No No -Undermining/Tunneling No No No -Circular Undermining No No No -Wound/Ulcer Outcome Not Healed Not Healed Not Healed -Ulcer Cleansing Rinsed/ Rinsed/ Rinsed/ Irrigated with Irrigated with Irrigated with Saline Saline Saline -Foul Odor after Cleansing No No No -Bioengineered Tissue No No No -Bleeding Controlled with Pressure Pressure Pressure -Offloading Yes Yes Yes -Type of Offloading Surgical Shoe Surgical Shoe Surgical Shoe -Treatment Response Procedure Procedure Procedure Tolerated Well Tolerated Well Tolerated Well -Debridement - Open, 1st 20sq cm -Debridement - Subq, 1st 20sq cm Yes Yes Yes Pain Scale: 0-10 Numeric Is Patient Pain Free? Yes Yes Yes 10/13/20 11:56 Wound Center Nurse 2 #1- L LATERAL FOOT -Time 11:57 -Correct Patient Yes -Correct Side, Site, Position Yes -Correct Procedure Yes -Procedure Performed Yes -Type of Procedure Debridement -Clinical Debridement Epidermis / Dermis -Tissue Removed Epidermis, Dermis -Post Debridement (cm) - Length 2.2 -Post Debridement (cm) - Width 0.6 -Post Debridement (cm) - Depth 0.2 -Total Square (Post) (cm) 1.32 -Area of Debridement (cm) - Length 2.2 -Area of Debridement (cm) - Width 0.6 -Total Square (Area) (cm) 1.32 -Tunneling No -Undermining/Tunneling No -Circular Undermining No -Wound/Ulcer Outcome Not Healed -Ulcer Cleansing Rinsed/ Irrigated with Saline -Foul Odor after Cleansing No -Bioengineered Tissue No -Bleeding Controlled with Pressure -Offloading Yes -Type of Offloading Surgical Shoe -Treatment Response Procedure Tolerated Well -Debridement - Open, 1st 20sq cm Yes -Debridement - Subq, 1st 20sq cm No Pain Scale: 0-10 Numeric Is Patient Pain Free? Yes WC - Nurse 3 - General Ulcer D/C NN Start: 09/22/20 08:29 Freq: Status: Active Protocol: Activity Type Activity Date Activity User E-Sign Co-Sign Detail Recorded Client Recorded Date Recorded By Document 09/22/20 09:29 MT [id number] 09/22/20 09:30 MT Document 09/29/20 09:04 DL [id number] 09/29/20 09:05 DL Document 10/06/20 09:31 KR [id number] 10/06/20 09:37 KR Document 10/13/20 12:10 DL [id number] 10/13/20 12:10 DL 09/22/20 09/29/20 10/06/20 09:29 09:04 09:31 Wound Care Nurse 3 #1- L LATERAL FOOT -Ulcer Cleansing Rinsed/ Rinsed/ Rinsed/ Irrigated with Irrigated with Irrigated with Saline Saline Saline -Foul Odor after Cleansing No No -Negative Pressure Wound Therapy N/A -Primary Dressing Applied Aquacel AG 4x4 Aquacel AG 4x4 C Hydrogel ($) -Other Dressing -Primary Dressing Covered/Secured with Dry Gauze & Dry Gauze & Dry Gauze, Roll Gauze, Roll Gauze, Secured with Secured with Secured with Tape Tape Tape -Aquacel AG 4x4 1 1 Treatment Response Procedure Tolerated Well Pain Scale: 0-10 Numeric Is Patient Pain Free? Yes Yes WC - Visit Discharge Discharge Condition Stable Stable Ambulatory Status Ambulatory Ambulatory Transportation Private Auto Private Auto Accompanied by Notes: LABS, XRAY AND VASCULAR AT HOSPITAL. 10/13/20 12:10 Wound Care Nurse 3 #1- L LATERAL FOOT -Ulcer Cleansing Rinsed/ Irrigated with Saline -Foul Odor after Cleansing No -Negative Pressure Wound Therapy -Primary Dressing Applied -Other Dressing hydrogel -Primary Dressing Covered/Secured with Dry Gauze & Roll Gauze, Secured with Tape -Aquacel AG 4x4 Treatment Response Procedure Tolerated Well Pain Scale: 0-10 Numeric Is Patient Pain Free? Yes WC - Visit Discharge Discharge Condition Stable Ambulatory Status Ambulatory Transportation Private Auto Accompanied by Notes: Wound debrided: plantar lateral forefoot Laterality: Left Wound Grade/Stage: grade 1 Type of Debridement: Excisional debridement Anesthesia Used: 5% Lidocaine Gel Depth: in the subcutaneous layer Percentage of wound debrided: 100 Instrument Used: #15 blade Tissue Removed: fibrous, devitalized subcutaneous, biofilm, slough Severity: Fat Layer Exposed Amount of bleeding with debridement: Mild Bleeding Controlled with: Pressure Patient tolerated procedure well Assessment/Plan Clinical Impression(s) from Imaging Studies Foot X-Ray 09/29/20 09:23 IMPRESSION: Normal x-ray examination of the foot. No radiographic evidence of osteomyelitis. Electronically Signed: Ray Zamorano MD at 8:27 EST Tel , Service support , Active Problems (Last Reviewed 10/31/19 @ 10:[address] Napoleon Zabala MD) Ulcer of left foot with fat layer exposed (Chronic) Callus of foot (Chronic) right Diabetes mellitus with neuropathy (Acute) Peripheral vascular disease (Chronic) Hammertoe of left foot (Chronic) Assessment: Left foot ulcer with fat layer exposed, left (subfifth metatarsal head). Diabetes with suspected neuropathy. Peripheral vascular disease. Low cardiac output. Hammertoes with forefoot deformities bilateral. Malnutrition suspected Plan: I reviewed and discussed his plan. Subcutaneous excisional debridement was performed as noted in the clinical panel. He was advised to change his dressing daily with hydrogel. To change his daily wash with antibacterial soap and water. I recommend offloading bilateral subfifth metatarsal head areas with surgical shoes. To try to keep mostly weight on the heel. Basic labs were ordered including CBC and CMP. This was reviewed without fracture, dislocation, soft tissue emphysema, osseous destruction or foreign body. Due to the periulcer inflammation infection screening will be started with a wound culture including aerobic, anaerobic, and MRSA PCR. There is no bacterial growth so far. He understands the inflammatory changes may be secondary to mechanical pressure and therefore local wound care and routine soap use will be addressed today. He has been using the surgical shoe well. I fabricated dual density offloading liners today to take additional pressure off of the ulcer site. I recommend nutritional supplementation optimize healing including Neri nutritional supplement pack daily. Noninvasive arterial studies including segmental pressures, MEHREEN, systolic toe pressures were ordered to screen for any vascular impairment to the lower extremity. He has apparent calcification and monophasic PT and DP waveforms bilateral. I recommend a referral to vascular specialist, Dr. Bowens. I recommend that he return to the wound healing center 1 week or call sooner if he has any questions or concerns. I answered all his questions.
== END 2020-10-14 23:59 ==
LOC: WC 11:15
PROVIDERS: PCP Family Medicine; Referring Provider Family Medicine; Visit Provider Podiatrist
DX: E11.621 Type 2 diabetes mellitus with foot ulcer (principal); L97.522 Non-pressure chronic ulcer of other part of left foot with fat layer exposed; L84 Corns and callosities; E11.51 Type 2 diabetes mellitus with diabetic peripheral angiopathy without gangrene; E11.40 Type 2 diabetes mellitus with diabetic neuropathy, unspecified; M20.42 Other hammer toe(s) (acquired), left foot; Z79.899 Other long term (current) drug therapy; Z79.4 Long term (current) use of insulin; Z79.82 Long term (current) use of aspirin
CPT/HCPCS: 11042; 73630; 87070; 87075; 87205; 93923; 97597; 99213; G0463

== ENCOUNTER 2020-11-03 09:00 | Outpatient (RCR) | payer MEDICARE, SELFPAY ==
[2020-10-15 00:37] VITALS: BP 152/74; PULSE 68; RESP 18; TEMP 36.6
[2020-10-20 10:19] VITALS: BP 126/61; PULSE 63; RESP 18; TEMP 36.4; BMI 22.3
--- NOTE | 2020-10-20 14:04 | PN.PCM_ITS ---
(1) Ulcer of left foot with fat layer exposed Status: Chronic Code(s): L97.522 - Non-pressure chronic ulcer of other part of left foot with fat layer exposed (2) Diabetes mellitus with neuropathy Status: Chronic Code(s): E11.40 - Type 2 diabetes mellitus with diabetic neuropathy, unspecified (3) Peripheral vascular disease Status: Chronic Code(s): I73.9 - Peripheral vascular disease, unspecified (4) Malnutrition Status: Chronic Code(s): E46 - Unspecified protein-calorie malnutrition (5) Hammertoe of left foot Status: Chronic Code(s): M20.42 - Other hammer toe(s) (acquired), left foot Type of Wound Date of Service: 10/20/20 Chief Complaint: Left foot ulcer History of Wound: He got his noninvasive vascular studies completed recently and he still did not schedule his vascular referral as advised. This 74-year-old male was seen for left foot ulcer return to the wound healing center today. He has been changing the dressing as advised. He wears offloading surgical shoe. He reports drainage, discomfort, and skin peeling. He denies a known odor. He denies odor or redness. Progress of Wound: Stable with noted delayed healing - Physical Exam Vital Signs Temp Pulse Resp BP 97.6 F L 63 18 126/61 H 10/20/20 10:19 10/20/20 10:19 10/20/20 10:19 10/20/20 10:19 General: Alert, Oriented x3, Cooperative, No apparent distress HEENT: Atraumatic Extremities: No cyanosis, Capillary Refill Less than 3 Seconds, No Calf Tenderness, Diminished Peripheral Pulses, Edema - Mild Skin: Ulcer/ Wound - No purulence, erythema, string, odor, infection. There is continued delays in healing and the base granular fibers. The skin is hairless, atrophic, and with dependent rubor Wound Measurements and Assessment WC - Nurse 1 - General Ulcer Measurement Start: 10/20/20 10:18 Freq: Status: Active Protocol: Activity Type Activity Date Activity User E-Sign Co-Sign Detail Recorded Client Recorded Date Recorded By Document 10/20/20 10:19 RB [id number] 10/20/20 10:20 RB 10/20/20 10:19 Wound Center Nurse 1 [Ulcer Assessment] #1- L LATERAL FOOT -Combined with other wound No -Current Size (cm) - Length 2.1 -Current Size (cm) - Width 0.8 -Current Size (cm) - Depth 0.3 -Total Square Cm 1.68 -Tunneling No -Undermining/Tunneling No -Circular Undermining No -Exudate Amt Small -Exudate Type Serosanguineous -Wound Margin Thickened -Granulation Amt Small (1-33%) -Granulation Quality [place] -Slough/Fibrin Yes -Necrosis Amt Medium (34-66%) -Necrotic Tissue Type Adherent Slough -Structure Exposed N/A -Texture (Kasia-wound Skin Appearance) Scarring -Moisture (Kasia-wound Skin Appearance Dry/Scaly ) -Color (Kasia-wound Skin Appearance) Assessed -Temperature (Kasia-wound Skin No Abnormality Appearance) (Pt Warm) -Tenderness on Palpation (Kasia-wound No Skin Appearance) -Ulcer Cleansing Wound Cleanser -Foul Odor after Cleansing No -Anesthetic Used 4% Lidocaine Solution WC - Nurse 2 - General Ulcer CM Notes Start: 10/20/20 10:18 Freq: Status: Active Protocol: Activity Type Activity Date Activity User E-Sign Co-Sign Detail Recorded Client Recorded Date Recorded By Document 10/20/20 12:45 PL [id number] 10/20/20 12:46 PL 10/20/20 12:45 Wound Center Nurse 2 [Procedure/Treatment] -Time 10:38 -Correct Patient Yes -Correct Side, Site, Position Yes -Correct Procedure Yes -Procedure Performed Yes -Type of Procedure Debridement -Clinical Debridement Subcutaneous -Tissue Removed Subcutaneous -Post Debridement (cm) - Length 2.1 -Post Debridement (cm) - Width 0.8 -Post Debridement (cm) - Depth 0.3 -Total Square (Post) (cm) 1.68 -Area of Debridement (cm) - Length 2.1 -Area of Debridement (cm) - Width 0.8 -Total Square (Area) (cm) 1.68 -Tunneling No -Undermining/Tunneling No -Circular Undermining No -Wound/Ulcer Outcome Not Healed -Ulcer Cleansing Rinsed/ Irrigated with Saline -Foul Odor after Cleansing No -Bioengineered Tissue No -Debridement - Subq, 1st 20sq cm Yes [See Physician Procedure note for Specifics] Pain Scale: 0-10 Numeric [Pain] -Is Patient Pain Free? Yes WC - Nurse 3 - General Ulcer D/C NN Start: 10/20/20 10:18 Freq: Status: Active Protocol: Activity Type Activity Date Activity User E-Sign Co-Sign Detail Recorded Client Recorded Date Recorded By Document 10/20/20 10:47 [facility] [id number] 10/20/20 10:48 [facility] 10/20/20 10:47 Wound Care Nurse 3 [Wound Dressing] #1- L LATERAL FOOT -Ulcer Cleansing Rinsed/ Irrigated with Saline -Foul Odor after Cleansing No -Primary Dressing Applied C Hydrogel ($) -Primary Dressing Covered/Secured Dry Gauze, with Secured with Tape [Post Procedure Tolerated] -Treatment Response Procedure Tolerated Well Pain Scale: 0-10 Numeric [Pain] -Is Patient Pain Free? Yes - Visit Discharge [Visit Discharge Information] -Discharge Condition Stable -Ambulatory Status Ambulatory -Transportation Private Auto -Accompanied by Musculoskeletal: No Tenderness to Palpation of Joints or Extremities, Muscle Wasting Neurological: - - Lack of full epicritic sensation light touch Psych/Mental Status: Normal Affect, Appropriate Debridement Note Post-Debridement Measurements/Treatment ALFREDO - Nurse 2 - General Ulcer CM Notes Start: 10/20/20 10:18 Freq: Status: Active Protocol: Activity Type Activity Date Activity User E-Sign Co-Sign Detail Recorded Client Recorded Date Recorded By Document 10/20/20 12:45 PL [id number] 10/20/20 12:46 PL 10/20/20 12:45 Wound Center Nurse 2 #1- L LATERAL FOOT -Time 10:38 -Correct Patient Yes -Correct Side, Site, Position Yes -Correct Procedure Yes -Procedure Performed Yes -Type of Procedure Debridement -Clinical Debridement Subcutaneous -Tissue Removed Subcutaneous -Post Debridement (cm) - Length 2.1 -Post Debridement (cm) - Width 0.8 -Post Debridement (cm) - Depth 0.3 -Total Square (Post) (cm) 1.68 -Area of Debridement (cm) - Length 2.1 -Area of Debridement (cm) - Width 0.8 -Total Square (Area) (cm) 1.68 -Tunneling No -Undermining/Tunneling No -Circular Undermining No -Wound/Ulcer Outcome Not Healed -Ulcer Cleansing Rinsed/ Irrigated with Saline -Foul Odor after Cleansing No -Bioengineered Tissue No -Debridement - Subq, 1st 20sq cm Yes Pain Scale: 0-10 Numeric Is Patient Pain Free? Yes - Nurse 3 - General Ulcer D/C NN Start: 10/20/20 10:18 Freq: Status: Active Protocol: Activity Type Activity Date Activity User E-Sign Co-Sign Detail Recorded Client Recorded Date Recorded By Document 10/20/20 10:47 [facility] [id number] 10/20/20 10:48 [facility] 10/20/20 10:47 Wound Care Nurse 3 #1- L LATERAL FOOT -Ulcer Cleansing Rinsed/ Irrigated with Saline -Foul Odor after Cleansing No -Primary Dressing Applied C Hydrogel ($) -Primary Dressing Covered/Secured with Dry Gauze, Secured with Tape Treatment Response Procedure Tolerated Well Pain Scale: 0-10 Numeric Is Patient Pain Free? Yes WC - Visit Discharge Discharge Condition Stable Ambulatory Status Ambulatory Transportation Private Auto Accompanied by Wound debrided: plantar lateral foot Laterality: Left Wound Grade/Stage: grade 1 Type of Debridement: Excisional debridement Anesthesia Used: 5% Lidocaine Gel Depth: in the subcutaneous layer Percentage of wound debrided: 100 Instrument Used: #15 blade Tissue Removed: fibrous, devitalized subcutaneous, biofilm, slough Severity: Fat Layer Exposed Amount of bleeding with debridement: Mild Bleeding Controlled with: Pressure Patient tolerated procedure well Assessment/Plan Active Problems (Last Reviewed 10/31/19 @ 10:[address] Napoleon Zabala MD) Ulcer of left foot with fat layer exposed (Chronic) Diabetes mellitus with neuropathy (Chronic) Peripheral vascular disease (Chronic) Malnutrition (Chronic) Hammertoe of left foot (Chronic) Assessment: Left foot ulcer with fat layer exposed, left (subfifth metatarsal head). Diabetes with suspected neuropathy. Peripheral vascular disease. Low cardiac output. Hammertoes with forefoot deformities bilateral. Malnutrition suspected Plan: I reviewed and discussed his plan. Subcutaneous excisional debridement was performed as noted in the clinical panel. He was advised to change his dressing daily with hydrogel. To change his daily wash with antibacterial soap and water. I recommend offloading bilateral subfifth metatarsal head areas with surgical shoes. To try to keep mostly weight on the heel. Basic labs were ordered including CBC and CMP. This was reviewed without fracture, dislocation, soft tissue emphysema, osseous destruction or foreign body. Due to the periulcer inflammation infection screening will be started with a wound cult ure including aerobic, anaerobic, and MRSA PCR. There is no bacterial growth. He understands the inflammatory changes may be secondary to mechanical pressure and therefore local wound care and routine soap use will be addressed today. He has been using the surgical shoe well. I fabricated dual density offloading liners today to take additional pressure off of the ulcer site. I recommend nutritional supplementation optimize healing including Neri nutritional supplement pack daily. Noninvasive arterial studies including segmental pressures, MEHREEN, systolic toe pressures were ordered to screen for any vascular impairment to the lower extremity. He has apparent calcification and monophasic PT and DP waveforms bilateral. I recommend a referral to vascular specialist, Dr. Bowens. He relates he is not interested in completing the referral and I educated him that his potential for healing is extremely limited without perfusion to the feet. It is also noted that his A1c is 11.8% which also does not have a good healing outcome. I advised him on continued improved diabetic control. The etiology of the ulcer development and component needed for wound healing were reviewed in detail again today. I recommend that he return to the wound healing center 2 weeks or call sooner if he has any questions or concerns. At this point may be more appropriate to debride every other week due to his vascular status and low cardiac output. I answered all his questions. The problems addressed require a moderate decision making level which includes one or more chronic illnesses (w/ exacerbation, progression, or side effects), two or more stable chronic illnesses, one undiagnosed new problem w/ uncertain prognosis, one acute illness with systemic symptoms, or one acute complicated injury. The medical decision making level is moderate. There is noted moderate risk of morbidity after considering this treatment plan and diagnostic data. Considerations were given to prescription management, decisions regarding surgical options, or social determinants of health. Note: [employer] speech recognition transcription coordinator software was used to create portions of this document. Sound-alike and misspelled words, as well as other transcription coordinator errors may be contained in the documentation. Macra 2020: reviewed today: medications and allergies reviewed and reconciled. reviewed 10/20/2020: BMI 24.0. blood pressure 126/61. He was advised to follow-up with his primary care physician on his systolic blood pressure which is over 120. He was advised on proper activity levels and diet to optimize wound healing and for overall health. Tobacco status: It is noted he was never smoker. Living will: Yes
[2020-11-03 08:51] VITALS: BP 135/70; PULSE 68; TEMP 35.8; BMI 22.3
--- NOTE | 2020-11-03 09:20 | PN.PCM_ITS ---
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: Acute Code(s): L97.523 - Non-pressure chronic ulcer of other part of left foot with necrosis of muscle (2) Diabetes mellitus with neuropathy Status: Chronic Code(s): E11.40 - Type 2 diabetes mellitus with diabetic neuropathy, unspecified (3) Peripheral vascular disease Status: Chronic Code(s): I73.9 - Peripheral vascular disease, unspecified (4) Malnutrition Status: Chronic Code(s): E46 - Unspecified protein-calorie malnutrition (5) Hammertoe of left foot Status: Chronic Code(s): M20.42 - Other hammer toe(s) (acquired), left foot Type of Wound Date of Service: 11/03/20 Chief Complaint: Left foot ulcer History of Wound: This 74-year-old male was seen for left foot ulcer return to the wound healing center today. He got his noninvasive vascular studies completed recently and he still did not schedule his vascular referral as advised. He states he does not want to. He has been changing the dressing as advised with hydrogel. He wears offloading surgical shoe. He reports drainage, discomfort, and skin peeling. He denies a known odor. He denies redness. He has some discomforts to the arch of his foot. Progress of Wound: Worsening status change with increased ulcer depth - Physical Exam Vital Signs Temp Pulse Resp BP 96.5 F L 68 18 135/70 H 11/03/20 08:51 11/03/20 08:51 10/20/20 10:19 11/03/20 08:51 General: Alert, Oriented x3, Cooperative, No apparent distress HEENT: Atraumatic Extremities: No cyanosis, Capillary Refill Less than 3 Seconds, No Calf Tenderness, Diminished Peripheral Pulses Skin: Ulcer/ Wound - No purulence, erythema, streaking, necrosis or infection. There is increased all third depth now with devitalized capsule noted that is fibrous and discolored. No direct exposed bone however this is in close approximation. His adjacent skin is hairless and atrophic the leg level Wound Measurements and Assessment WC - Nurse 1 - General Ulcer Measurement Start: 10/20/20 10:18 Freq: Status: Active Protocol: Activity Type Activity Date Activity User E-Sign Co-Sign Detail Recorded Client Recorded Date Recorded By Document 11/03/20 08:51 FREDDIE [id number] 11/03/20 08:54 11/03/20 08:51 Wound Center Nurse 1 [Ulcer Assessment] #1- L LATERAL FOOT -Current Size (cm) - Length 2.5 -Current Size (cm) - Width 1 -Current Size (cm) - Depth 0.3 -Total Square Cm 2.5 -Exudate Amt Small -Exudate Type Serosanguineous -Wound Margin Distinct, Outline Attached -Granulation Amt Small (1-33%) -Granulation Quality Red -Necrosis Amt Medium (34-66%) -Necrotic Tissue Type Adherent Slough -Texture (Kasia-wound Skin Appearance) Assessed, Scarring -Moisture (Kasia-wound Skin Appearance Assessed ) -Color (Kasia-wound Skin Appearance) No Abnormality, Assessed -Temperature (Kasia-wound Skin No Abnormality Appearance) (Pt Warm) -Tenderness on Palpation (Kasia-wound No Skin Appearance) -Ulcer Cleansing Rinsed/ Irrigated with Saline -Foul Odor after Cleansing No -Anesthetic Used 4% Lidocaine Solution WC - Nurse 2 - General Ulcer CM Notes Start: 10/20/20 10:18 Freq: Status: Active Protocol: Activity Type Activity Date Activity User E-Sign Co-Sign Detail Recorded Client Recorded Date Recorded By Document 11/03/20 09:00 [id number] 11/03/20 09:06 MICHA 11/03/20 09:00 Wound Center Nurse 2 [Procedure/Treatment] -Time 09:05 -Correct Patient Yes -Correct Side, Site, Position Yes -Correct Procedure Yes -Procedure Performed Yes -Type of Procedure Debridement -Clinical Debridement Subcutaneous -Tissue Removed Subcutaneous -Post Debridement (cm) - Length 2.5 -Post Debridement (cm) - Width 1.1 -Post Debridement (cm) - Depth 0.4 -Total Square (Post) (cm) 2.75 -Area of Debridement (cm) - Length 2.5 -Area of Debridement (cm) - Width 1.1 -Total Square (Area) (cm) 2.75 -Tunneling No -Undermining/Tunneling No -Circular Undermining No -Wound/Ulcer Outcome Not Healed -Ulcer Cleansing Rinsed/ Irrigated with Saline -Foul Odor after Cleansing No -Bioengineered Tissue No -Bleeding Controlled with Pressure -Offloading Yes -Type of Offloading Surgical Shoe -Treatment Response Procedure Tolerated Well -Debridement - Subq, 1st 20sq cm Yes [See Physician Procedure note for Specifics] Pain Scale: 0-10 Numeric [Pain] -Is Patient Pain Free? Yes Musculoskeletal: No Tenderness to Palpation of Joints or Extremities, Muscle Wasting, - - Varus rotation and dorsal contraction of fifth toe with prominent fifth metatarsal head left foot. No bogginess or fluctuance on palpation. Pain with ulcer manipulation Neurological: Sensory exam intact to light touch and pain Psych/Mental Status: Normal Affect, Appropriate Debridement Note Post-Debridement Measurements/Treatment - Nurse 2 - General Ulcer CM Notes Start: 10/20/20 10:18 Freq: Status: Active Protocol: Activity Type Activity Date Activity User E-Sign Co-Sign Detail Recorded Client Recorded Date Recorded By Document 10/20/20 12:45 PL [id number] 10/20/20 12:46 PL Document 11/03/20 09:00 JF [id number] 11/03/20 09:06 MICHA 10/20/20 11/03/20 12:45 09:00 Wound Center Nurse 2 #1- L LATERAL FOOT -Time 10:38 09:05 -Correct Patient Yes Yes -Correct Side, Site, Position Yes Yes -Correct Procedure Yes Yes -Procedure Performed Yes Yes -Type of Procedure Debridement Debridement -Clinical Debridement Subcutaneous Subcutaneous -Tissue Removed Subcutaneous Subcutaneous -Post Debridement (cm) - Length 2.1 2.5 -Post Debridement (cm) - Width 0.8 1.1 -Post Debridement (cm) - Depth 0.3 0.4 -Total Square (Post) (cm) 1.68 2.75 -Area of Debridement (cm) - Length 2.1 2.5 -Area of Debridement (cm) - Width 0.8 1.1 -Total Square (Area) (cm) 1.68 2.75 -Tunneling No No -Undermining/Tunneling No No -Circular Undermining No No -Wound/Ulcer Outcome Not Healed Not Healed -Ulcer Cleansing Rinsed/ Rinsed/ Irrigated with Irrigated with Saline Saline -Foul Odor after Cleansing No No -Bioengineered Tissue No No -Bleeding Controlled with Pressure -Offloading Yes -Type of Offloading Surgical Shoe -Treatment Response Procedure Tolerated Well -Debridement - Subq, 1st 20sq cm Yes Yes Pain Scale: 0-10 Numeric Is Patient Pain Free? Yes Yes - Nurse 3 - General Ulcer D/C NN Start: 10/20/20 10:18 Freq: Status: Active Protocol: Activity Type Activity Date Activity User E-Sign Co-Sign Detail Recorded Client Recorded Date Recorded By Document 10/20/20 10:47 [facility] [id number] 10/20/20 10:48 [facility] 10/20/20 10:47 Wound Care Nurse 3 #1- L LATERAL FOOT -Ulcer Cleansing Rinsed/ Irrigated with Saline -Foul Odor after Cleansing No -Primary Dressing Applied C Hydrogel ($) -Primary Dressing Covered/Secured with Dry Gauze, Secured with Tape Treatment Response Procedure Tolerated Well Pain Scale: 0-10 Numeric Is Patient Pain Free? Yes WC - Visit Discharge Discharge Condition Stable Ambulatory Status Ambulatory Transportation Private Auto Accompanied by Wound debrided: lateral foot Laterality: Left Wound Grade/Stage: grade 2 Type of Debridement: Excisional debridement Anesthesia Used: 5% Lidocaine Gel Depth: in the subcutaneous layer Percentage of wound debrided: 100 Instrument Used: #15 blade Tissue Removed: fibrous, devitalized subcutaneous, biofilm, slough Severity: Fat Layer Exposed Amount of bleeding with debridement: Mild Bleeding Controlled with: Pressure Patient tolerated procedure well Assessment/Plan Active Problems (Last Reviewed 10/31/19 @ 10:[address] Napoleon Zabala MD) Ulcer of left foot with fat layer exposed (Chronic) Diabetes mellitus with neuropathy (Chronic) Peripheral vascular disease (Chronic) Malnutrition (Chronic) Hammertoe of left foot (Chronic) Assessment: Left foot ulcer now with the capsule layer exposed, left (subfifth metatarsal head). Diabetes with suspected neuropathy. Peripheral vascular disease. Low cardiac output. Hammertoes with forefoot deformities bilateral. Malnutrition suspected Plan: I reviewed and discussed his plan. Subcutaneous excisional debridement was performed as noted in the clinical panel. He was advised to change his dressing daily with collagenase, enzymatic debrider. A prescription was provided and they were advised on proper application. His will be performing the dressing change. To change his daily wash with antibacterial soap and water. I recommend offloading bilateral subfifth metatarsal head areas with surgical shoes. To try to keep mostly weight on the heel. Basic labs were ordered including CBC and CMP. This was reviewed without fracture, dislocation, soft tissue emphysema, osseous destruction or foreign body. Due to the periulcer inflammation infection screening will be started with a wound culture including aerobic, anaerobic, and MRSA PCR. There is no bacterial growt h. I fabricated dual density offloading liners today to take additional pressure off of the ulcer site. I recommend nutritional supplementation optimize healing including Neri nutritional supplement pack daily. Noninvasive arterial studies including segmental pressures, MEHREEN, systolic toe pressures were ordered to screen for any vascular impairment to the lower extremity. He has apparent calcification and monophasic PT and DP waveforms bilateral. I recommend a referral to vascular specialist, Dr. Bowens. He is apprehensive to go for this referral and is considering a palliative care plan which I do not recommend at this time. I recommend proceeding forward with a consult to see what the treatment options are. His healing potential is limited without adequate blood flow. It is also noted that his A1c is 11.8% which also does not have a good healing outcome. I advised him on continued improved diabetic control. The etiology of the ulcer development and component needed for wound healing were reviewed in detail again today. I recommend that he return to the wound healing center 2 weeks or call sooner if he has any questions or concerns. At this point may be more appropriate to debride every other week due to his vascular status and low cardiac output. I answered all his questions. The problems addressed require a moderate decision making level which includes one or more chronic illnesses (w/ exacerbation, progression, or side effects), two or more stable chronic illnesses, one undiagnosed new problem w/ uncertain prognosis, one acute illness with systemic symptoms, or one acute complicated injury. The medical decision making level is moderate. There is noted moderate risk of morbidity after considering this treatment plan and diagnostic data. Considerations were given to prescription management, decisions regarding surgical options, or social determinants of health. Note: [employer] speech recognition loom fixer apprentice software was used to create portions of this document. Sound-alike and misspelled words, as well as other loom fixer apprentice errors may be contained in the documentation. [employer]ra 2020: reviewed today: medications and allergies reviewed and reconciled. reviewed 10/20/2020: BMI 24.0. blood pressure 126/61. He was advised to follow-up with his primary care physician on his systolic blood pressure which is over 120. He was advised on proper activity levels and diet to optimize wound healing and for overall health. Tobacco status: It is noted he was never smoker. Living will: Yes
== END 2020-11-14 23:59 ==
LOC: WC 09:00
PROVIDERS: PCP Family Medicine; Referring Provider Family Medicine; Visit Provider Podiatrist
DX: E11.621 Type 2 diabetes mellitus with foot ulcer (principal); E11.51 Type 2 diabetes mellitus with diabetic peripheral angiopathy without gangrene; E11.40 Type 2 diabetes mellitus with diabetic neuropathy, unspecified; L97.522 Non-pressure chronic ulcer of other part of left foot with fat layer exposed; M20.42 Other hammer toe(s) (acquired), left foot
CPT/HCPCS: 11042

== ENCOUNTER 2020-12-08 10:45 | Outpatient (RCR) | payer MEDICARE, SELFPAY ==
[2020-11-15 00:33] VITALS: BP 135/70; PULSE 68; RESP 18; TEMP 35.8
[2020-11-17 09:21] VITALS: BP 116/54; PULSE 73; RESP 18; TEMP 35.8; BMI 22.3
[2020-11-17 09:57] VITALS: BP 116/54
--- NOTE | 2020-11-17 11:45 | PCM.WC.PN ---
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 Code(s): L97.523 - Non-pressure chronic ulcer of other part of left foot with necrosis of muscle (2) Diabetes mellitus with neuropathy Status: Chronic Code(s): E11.40 - Type 2 diabetes mellitus with diabetic neuropathy, unspecified (3) Peripheral vascular disease Status: Chronic Code(s): I73.9 - Peripheral vascular disease, unspecified (4) Malnutrition Status: Chronic Code(s): E46 - Unspecified protein-calorie malnutrition Type of Wound Date of Service: 11/17/20 Chief Complaint: Left foot ulcer History of Wound: This 74-year-old male was seen for left foot ulcer return to the wound healing center today. He got his noninvasive vascular studies completed recently and he still did not schedule his vascular referral as advised. He states he does not want to. He has been changing the dressing as advised with hydrogel. He wears offloading surgical shoe. He reports drainage, discomfort, and skin peeling. He denies a known odor. He denies redness. He scheduled his vascular surgery consultation visit. Progress of Wound: Stable - Physical Exam Vital Signs Temp Pulse Resp BP 96.5 F L 73 18 116/54 L 11/17/20 09:21 11/17/20 09:21 11/17/20 09:21 11/17/20 09:57 General: Alert, Oriented x3, Cooperative, No apparent distress Extremities: No cyanosis, No edema, Capillary Refill Less than 3 Seconds, No Calf Tenderness, Diminished Peripheral Pulses Skin: Ulcer/ Wound - Dry wound with fibrinous and scant granulation tissue. No purulence, erythema, streaking, odor. This is in near proximity to the capsule and fifth metatarsal head. Wound Measurements and Assessment WC - Nurse 1 - General Ulcer Measurement Start: 11/17/20 09:21 Freq: Status: Active Protocol: Activity Type Activity Date Activity User E-Sign Co-Sign Detail Recorded Client Recorded Date Recorded By Document 11/17/20 09:21 MICHA [id number] 11/17/20 09:23 MICHA 11/17/20 09:21 Wound Center Nurse 1 [Ulcer Assessment] #1- L LATERAL FOOT -Combined with other wound No -Current Size (cm) - Length 2.5 -Current Size (cm) - Width 1.3 -Current Size (cm) - Depth 0.3 -Total Square Cm 3.25 -Photo Taken No -Epithelialization Small 1-33% -Tunneling No -Undermining/Tunneling No -Circular Undermining No -Exudate Amt Small -Exudate Type Serosanguineous -Wound Margin Indistinct, Non -Visible -Granulation Amt None Present (0 %) -Slough/Fibrin Yes -Necrosis Amt Large (67-100%) -Necrotic Tissue Type Adherent Slough -Structure Exposed N/A -Texture (Kasia-wound Skin Appearance) Assessed -Moisture (Kasia-wound Skin Appearance Assessed,Dry/ ) Scaly -Color (Kasia-wound Skin Appearance) Assessed -Temperature (Kasia-wound Skin No Abnormality Appearance) (Pt Warm) -Tenderness on Palpation (Kasia-wound No Skin Appearance) -Ulcer Cleansing Rinsed/ Irrigated with Saline -Foul Odor after Cleansing No -Anesthetic Used 4% Lidocaine Solution [Edema Assessment] -Lower Limb Edema Present NA WC - Nurse 2 - General Ulcer CM Notes Start: 11/17/20 09:21 Freq: Status: Active Protocol: Activity Type Activity Date Activity User E-Sign Co-Sign Detail Recorded Client Recorded Date Recorded By Document 11/17/20 09:40 MICHA [id number] 11/17/20 09:45 MICHA 11/17/20 09:40 Wound Center Nurse 2 [Procedure/Treatment] #1- L LATERAL FOOT -Time 09:40 -Correct Patient Yes -Correct Side, Site, Position Yes -Correct Procedure Yes -Procedure Performed Yes -Type of Procedure Debridement -Clinical Debridement Subcutaneous -Tissue Removed Subcutaneous -Post Debridement (cm) - Length 2.6 -Post Debridement (cm) - Width 1.4 -Post Debridement (cm) - Depth 0.3 -Total Square (Post) (cm) 3.64 -Area of Debridement (cm) - Length 2.6 -Area of Debridement (cm) - Width 1.4 -Total Square (Area) (cm) 3.64 -Tunneling No -Undermining/Tunneling No -Circular Undermining No -Wound/Ulcer Outcome Not Healed -Ulcer Cleansing Rinsed/ Irrigated with Saline -Foul Odor after Cleansing No -Bioengineered Tissue No -Bleeding Controlled with Pressure -Offloading Yes -Type of Offloading Surgical Shoe -Treatment Response Procedure Tolerated Well -Debridement - Subq, 1st 20sq cm Yes [See Physician Procedure note for Specifics] Pain Scale: 0-10 Numeric [Pain] -Is Patient Pain Free? Yes - Nurse 3 - General Ulcer D/C NN Start: 11/17/20 09:21 Freq: Status: Active Protocol: Activity Type Activity Date Activity User E-Sign Co-Sign Detail Recorded Client Recorded Date Recorded By Document 11/17/20 09:57 RB [id number] 11/17/20 09:58 RB 11/17/20 09:57 Wound Care Nurse 3 [Wound Dressing] #1- L LATERAL FOOT -Other Dressing hydrogel -Primary Dressing Covered/Secured Dry Gauze,Dry with Gauze & Roll Gauze,Secured with Tape [Post Procedure Tolerated] -Treatment Response Procedure Tolerated Well Vital Signs [Blood Pressure] -Blood Pressure (90/60-120/80) 116/54 L -Blood Pressure Mean (mm Hg) 74 -Source Monitor -Position Semi-Fowlers -Blood Pressure Location Left Arm Pain Scale: 0-10 Numeric [Pain] -Is Patient Pain Free? Yes - Visit Discharge [Visit Discharge Information] -Discharge Condition Stable -Ambulatory Status Ambulatory -Transportation Private Auto -Medication Reconcilliation completed No & provided to patient/care provider -Clinical Summary of Care Provided Yes Musculoskeletal: Muscle Wasting, - - Prominent fifth metatarsal head Neurological: - - Lack of epicritic sensation light touch is consistent with neuropathy Psych/Mental Status: Normal Affect, Appropriate Debridement Note Post-Debridement Measurements/Treatment - Nurse 2 - General Ulcer CM Notes Start: 11/17/20 09:21 Freq: Status: Active Protocol: Activity Type Activity Date Activity User E-Sign Co-Sign Detail Recorded Client Recorded Date Recorded By Document 11/17/20 09:40 MICHA [id number] 11/17/20 09:45 MICHA 11/17/20 09:40 Wound Center Nurse 2 #1- L LATERAL FOOT -Time 09:40 -Correct Patient Yes -Correct Side, Site, Position Yes -Correct Procedure Yes -Procedure Performed Yes -Type of Procedure Debridement -Clinical Debridement Subcutaneous -Tissue Removed Subcutaneous -Post Debridement (cm) - Length 2.6 -Post Debridement (cm) - Width 1.4 -Post Debridement (cm) - Depth 0.3 -Total Square (Post) (cm) 3.64 -Area of Debridement (cm) - Length 2.6 -Area of Debridement (cm) - Width 1.4 -Total Square (Area) (cm) 3.64 -Tunneling No -Undermining/Tunneling No -Circular Undermining No -Wound/Ulcer Outcome Not Healed -Ulcer Cleansing Rinsed/ Irrigated with Saline -Foul Odor after Cleansing No -Bioengineered Tissue No -Bleeding Controlled with Pressure -Offloading Yes -Type of Offloading Surgical Shoe -Treatment Response Procedure Tolerated Well -Debridement - Subq, 1st 20sq cm Yes Pain Scale: 0-10 Numeric Is Patient Pain Free? Yes - Nurse 3 - General Ulcer D/C NN Start: 11/17/20 09:21 Freq: Status: Active Protocol: Activity Type Activity Date Activity User E-Sign Co-Sign Detail Recorded Client Recorded Date Recorded By Document 11/17/20 09:57 RB [id number] 11/17/20 09:58 RB 11/17/20 09:57 Wound Care Nurse 3 #1- L LATERAL FOOT -Other Dressing hydrogel -Primary Dressing Covered/Secured with Dry Gauze,Dry Gauze & Roll Gauze,Secured with Tape Treatment Response Procedure Tolerated Well Vital Signs Blood Pressure (90/60-120/80) 116/54 L Blood Pressure Mean (mm Hg) 74 Source Monitor Position Semi-Fowlers Blood Pressure Location Left Arm Pain Scale: 0-10 Numeric Is Patient Pain Free? Yes WC - Visit Discharge Discharge Condition Stable Ambulatory Status Ambulatory Transportation Private Auto Medication Reconcilliation completed & No provided to patient/care provider Clinical Summary of Care Provided Yes Wound debrided: plantar lateral foot Laterality: Left Wound Grade/Stage: grade 2 Type of Debridement: Excisional debridement Anesthesia Used: 5% Lidocaine Gel Depth: in the subcutaneous layer Percentage of wound debrided: 100 Instrument Used: #15 blade Tissue Removed: fibrous, devitalized subcutaneous, biofilm, slough Severity: Fat Layer Exposed Amount of bleeding with debridement: Mild Bleeding Controlled with: Pressure Patient tolerated procedure well Assessment/Plan Active Problems (Last Reviewed 10/31/19 @ 10:[address] 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 Diabetes with suspected neuropathy. Peripheral vascular disease. Low cardiac output. Hammertoes with forefoot deformities bilateral. Malnutrition suspected Plan: I reviewed and discussed his plan. Subcutaneous excisional debridement was performed as noted in the clinical panel. He was advised to change his dressing daily with collagenase, enzymatic debrider. To continue. To change his daily wash with antibacterial soap and water. I recommend offloading bilateral subfifth metatarsal head areas with surgical shoes. To try to keep mostly weight on the heel. Basic labs were ordered including CBC and CMP. This was reviewed without fracture, dislocation, soft tissue emphysema, osseous destruction or foreign body. Due to the periulcer inflammation infection screening will be started with a wound culture including aerobic, anaerobic, and MRSA PCR. There is no bacterial growth. I fabricated dual density offloading liners today to take additional pressure off of the ulcer site. I recommend nutritional supplementation optimize healing including Neri nutritional supplement pack daily. Noninvasive arterial studies including segmental pressures, MEHREEN, systolic toe pressures were ordered to screen for any vascular impairment to the lower extremity. He has apparent calcification and monophasic PT and DP waveforms bilateral. I recommend a referral to vascular specialist, Dr. Bowens. He has scheduled this. I recommend proceeding forward with a consult to see what the treatment options are. His healing potential is limited without adequate blood flow. It is also noted that his A1c is 11.8% which also does not have a good healing outcome. I advised him on continued improved diabetic control. The etiology of the ulcer development and component needed for wound healing were reviewed in detail again today. I recommend that he return to the wound healing center 2 weeks or call sooner if he has any questions or concerns. At this point may be more appropriate to debride every other week due to his vascular status and low cardiac output. I answered all his questions. The problems addressed require a moderate decision making level which includes one or more chronic illnesses (w/ exacerbation, progression, or side effects), two or more stable chronic illnesses, one undiagnosed new problem w/ uncertain prognosis, one acute illness with systemic symptoms, or one acute complicated injury. The medical decision making level is moderate. There is noted moderate risk of morbidity after considering this treatment plan and diagnostic data. Considerations were given to prescription management, decisions regarding surgical options, or social determinants of health. Note: [employer] speech recognition personnel generalist manager software was used to create portions of this document. Sound-alike and misspelled words, as well as other personnel generalist manager errors may be contained in the documentation. Mac2020: reviewed today: medications and allergies reviewed and reconciled. reviewed 10/20/2020: BMI 24.0. blood pressure 126/61. He was advised to follow-up with his primary care physician on his systolic blood pressure which is over 120. He was advised on proper activity levels and diet to optimize wound healing and for overall health. Tobacco status: It is noted he was never smoker. Living will: Yes
[2020-12-08 10:58] VITALS: BP 141/69; PULSE 66; RESP 18; TEMP 36.1; BMI 22.3
--- NOTE | 2020-12-08 11:42 | PN.PCM_ITS ---
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 Code(s): L97.523 - Non-pressure chronic ulcer of other part of left foot with necrosis of muscle (2) Diabetes mellitus with neuropathy Status: Chronic Code(s): E11.40 - Type 2 diabetes mellitus with diabetic neuropathy, unspecified (3) Peripheral vascular disease Status: Chronic Code(s): I73.9 - Peripheral vascular disease, unspecified (4) Malnutrition Status: Chronic Code(s): E46 - Unspecified protein-calorie malnutrition Type of Wound Date of Service: 12/08/20 Chief Complaint: Left foot ulcer History of Wound: This 75-year-old male was seen for left foot ulcer return to the wound healing center today. He got his noninvasive vascular studies completed recently and he canceled his referral appointment last week. This is now rescheduled for next week. He has been changing the dressing as advised with Adelso. He wears offloading surgical shoe. He reports drainage, discomfort, and skin peeling. He denies a known odor. He denies redness. He is with his today. Progress of Wound: Stable - Physical Exam Vital Signs Temp Pulse Resp BP 97 F L 66 18 141/69 H 12/08/20 10:58 12/08/20 10:58 12/08/20 10:58 12/08/20 10:58 General: Alert, Oriented x3, Cooperative, No apparent distress Extremities: No edema, Capillary Refill Less than 3 Seconds, No Calf Tenderness, Diminished Peripheral Pulses Skin: Ulcer/ Wound - No purulence, erythema, streaking, odor, infection. The ulcer that is fibrous partially adhered devitalized tissue that may potentially be part of the capsule. There is no visualized bone. His adjacent skin is hairless and atrophic Wound Measurements and Assessment WC - Nurse 1 - General Ulcer Measurement Start: 11/17/20 09:21 Freq: Status: Active Protocol: Activity Type Activity Date Activity User E-Sign Co-Sign Detail Recorded Client Recorded Date Recorded By Document 12/08/20 10:58 [email or web address] [id number] 12/08/20 11:00 RB 12/08/20 10:58 Wound Center Nurse 1 [Ulcer Assessment] #1- L LATERAL FOOT -Combined with other wound No -Current Size (cm) - Length 1.7 -Current Size (cm) - Width 1.4 -Current Size (cm) - Depth 0.1 -Total Square Cm 2.38 -Tunneling No -Undermining/Tunneling No -Circular Undermining No -Exudate Amt Medium -Exudate Type Serosanguineous -Wound Margin Thickened -Granulation Amt Medium (34-66%) -Granulation Quality [place] -Slough/Fibrin Yes -Necrosis Amt Small (1-33%) -Necrotic Tissue Type Adherent Slough -Structure Exposed N/A -Texture (Kasia-wound Skin Appearance) Assessed, Scarring -Moisture (Kasia-wound Skin Appearance Assessed ) -Color (Kasia-wound Skin Appearance) Assessed -Temperature (Kasia-wound Skin No Abnormality Appearance) (Pt Warm) -Tenderness on Palpation (Kasia-wound No Skin Appearance) -Ulcer Cleansing Wound Cleanser -Foul Odor after Cleansing No -Anesthetic Used 5% Lidocaine Gel WC - Nurse 2 - General Ulcer CM Notes Start: 11/17/20 09:21 Freq: Status: Active Protocol: Activity Type Activity Date Activity User E-Sign Co-Sign Detail Recorded Client Recorded Date Recorded By Document 12/08/20 11:39 MICHA [id number] 12/08/20 11:41 MICHA 12/08/20 11:39 Wound Center Nurse 2 [Procedure/Treatment] -Time 11:39 -Correct Patient Yes -Correct Side, Site, Position Yes -Correct Procedure Yes -Procedure Performed Yes -Type of Procedure Debridement -Clinical Debridement Subcutaneous -Tissue Removed Subcutaneous -Post Debridement (cm) - Length 1.8 -Post Debridement (cm) - Width 1.5 -Post Debridement (cm) - Depth 0.3 -Total Square (Post) (cm) 2.70 -Area of Debridement (cm) - Length 1.8 -Area of Debridement (cm) - Width 1.5 -Total Square (Area) (cm) 2.70 -Tunneling No -Undermining/Tunneling No -Circular Undermining No -Wound/Ulcer Outcome Not Healed -Ulcer Cleansing Rinsed/ Irrigated with Saline -Foul Odor after Cleansing No -Bioengineered Tissue No -Bleeding Controlled with Pressure -Offloading Yes -Type of Offloading Surgical Shoe -Treatment Response Procedure Tolerated Well -Debridement - Subq, 1st 20sq cm Yes [See Physician Procedure note for Specifics] Pain Scale: 0-10 Numeric [Pain] -Is Patient Pain Free? Yes Musculoskeletal: No Tenderness to Palpation of Joints or Extremities, Muscle Wasting, - - Prominent fifth metatarsal head and adjacent varus rotation of the fifth toe Neurological: - - Lack of normal epicritic sensation light touch is consistent with neuropathic status Psych/Mental Status: Normal Affect, Appropriate Debridement Note Post-Debridement Measurements/Treatment WC - Nurse 2 - General Ulcer CM Notes Start: 11/17/20 09:21 Freq: Status: Active Protocol: Activity Type Activity Date Activity User E-Sign Co-Sign Detail Recorded Client Recorded Date Recorded By Document 11/17/20 09:40 [id number] 11/17/20 09:45 Document 12/08/20 11:39 [id number] 12/08/20 11:41 11/17/20 12/08/20 09:40 11:39 Wound Center Nurse 2 #1- L LATERAL FOOT -Time 09:40 11:39 -Correct Patient Yes Yes -Correct Side, Site, Position Yes Yes -Correct Procedure Yes Yes -Procedure Performed Yes Yes -Type of Procedure Debridement Debridement -Clinical Debridement Subcutaneous Subcutaneous -Tissue Removed Subcutaneous Subcutaneous -Post Debridement (cm) - Length 2.6 1.8 -Post Debridement (cm) - Width 1.4 1.5 -Post Debridement (cm) - Depth 0.3 0.3 -Total Square (Post) (cm) 3.64 2.70 -Area of Debridement (cm) - Length 2.6 1.8 -Area of Debridement (cm) - Width 1.4 1.5 -Total Square (Area) (cm) 3.64 2.70 -Tunneling No No -Undermining/Tunneling No No -Circular Undermining No No -Wound/Ulcer Outcome Not Healed Not Healed -Ulcer Cleansing Rinsed/ Rinsed/ Irrigated with Irrigated with Saline Saline -Foul Odor after Cleansing No No -Bioengineered Tissue No No -Bleeding Controlled with Pressure Pressure -Offloading Yes Yes -Type of Offloading Surgical Shoe Surgical Shoe -Treatment Response Procedure Procedure Tolerated Well Tolerated Well -Debridement - Subq, 1st 20sq cm Yes Yes Pain Scale: 0-10 Numeric Is Patient Pain Free? Yes Yes ALFREDO - Nurse 3 - General Ulcer D/C NN Start: 11/17/20 09:21 Freq: Status: Active Protocol: Activity Type Activity Date Activity User E-Sign Co-Sign Detail Recorded Client Recorded Date Recorded By Document 11/17/20 09:57 RB [id number] 11/17/20 09:58 RB 11/17/20 09:57 Wound Care Nurse 3 #1- L LATERAL FOOT -Other Dressing hydrogel -Primary Dressing Covered/Secured with Dry Gauze,Dry Gauze & Roll Gauze,Secured with Tape Treatment Response Procedure Tolerated Well Vital Signs Blood Pressure (90/60-120/80) 116/54 L Blood Pressure Mean (mm Hg) 74 Source Monitor Position Semi-Fowlers Blood Pressure Location Left Arm Pain Scale: 0-10 Numeric Is Patient Pain Free? Yes WC - Visit Discharge Discharge Condition Stable Ambulatory Status Ambulatory Transportation Private Auto Medication Reconcilliation completed & No provided to patient/care provider Clinical Summary of Care Provided Yes Wound debrided: lateral forefoot Laterality: Left Wound Grade/Stage: grade 2 Type of Debridement: Excisional debridement Anesthesia Used: 5% Lidocaine Gel Depth: in the subcutaneous layer Percentage of wound debrided: 100 Instrument Used: #15 blade, Forceps Tissue Removed: fibrous, devitalized subcutaneous, biofilm, slough Severity: Fat Layer Exposed Amount of bleeding with debridement: Mild - Scant Bleeding Controlled with: Pressure Patient tolerated procedure well Assessment/Plan Active Problems (Last Reviewed 10/31/19 @ 10:[address] 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 Diabetes with suspected neuropathy. Peripheral vascular disease. Low cardiac output. Hammertoes with forefoot deformities bilateral. Malnutrition suspected Plan: I reviewed and discussed his plan. Subcutaneous excisional debridement was performed as noted in the clinical panel. He was advised to change his dressing daily with collagenase, enzymatic debrider. To continue. To change his daily wash with antibacterial soap and water. I recommend offloading bila teral subfifth metatarsal head areas with surgical shoes. To try to keep mostly weight on the heel. Basic labs were ordered including CBC and CMP. This was reviewed without fracture, dislocation, soft tissue emphysema, osseous destruction or foreign body. Due to the periulcer inflammation infection screening will be started with a wound culture including aerobic, anaerobic, and MRSA PCR. There is no bacterial growth. I fabricated dual density offloading liners today to take additional pressure off of the ulcer site. I recommend nutritional supplementation optimize healing including Neri nutritional supplement pack daily. Noninvasive arterial studies including segmental pressures, MEHREEN, systolic toe pressures were ordered to screen for any vascular impairment to the lower extremity. He has apparent calcification and monophasic PT and DP waveforms bilateral. I recommend a referral to vascular specialist, Dr. Bowens. He has scheduled this. I recommend proceeding forward with a consult to see what the treatment options are. His healing potential is limited without adequate blood flow. It is also noted that his A1c is 11.8% which also does not have a good healing outcome. I advised him on continued improved diabetic control. The etiology of the ulcer development and component needed for wound healing were reviewed in detail again today. I recommend that he return to the wound healing center 2 weeks or call sooner if he has any questions or concerns. At this point may be more appropriate to debride every other week due to his vascular status and low cardiac output. I answered all his questions. . Note: [employer] speech recognition dairy processing equipment operator software was used to create portions of this document. Sound-alike and misspelled words, as well as other dairy processing equipment operator errors may be contained in the documentation. Dawna 2020: reviewed today: medications and allergies reviewed and reconciled. reviewed 10/20/2020: BMI 24.0. blood pressure 126/61. He was advised to follow- up with his primary care physician on his systolic blood pressure which is over 120. He was advised on proper activity levels and diet to optimize wound healing and for overall health. Tobacco status: It is noted he was never smoker. Living will: Yes
[2020-12-08 11:53] VITALS: BP 140/70
== END 2020-12-12 23:59 ==
LOC: WC 10:45
PROVIDERS: PCP Family Medicine; Referring Provider Family Medicine; Visit Provider Podiatrist
DX: E11.621 Type 2 diabetes mellitus with foot ulcer (principal); E11.51 Type 2 diabetes mellitus with diabetic peripheral angiopathy without gangrene; E11.40 Type 2 diabetes mellitus with diabetic neuropathy, unspecified; L97.522 Non-pressure chronic ulcer of other part of left foot with fat layer exposed; M20.42 Other hammer toe(s) (acquired), left foot; M20.41 Other hammer toe(s) (acquired), right foot
CPT/HCPCS: 11042

== ENCOUNTER → 2020-12-09 12:14 | Outpatient (CLI) | payer MEDICARE, SELFPAY ==
[2020-12-08 10:58] VITALS: BMI 22.3
[2020-12-09 15:13] LABS: Absolute Lymphocyte Count 1.48 X10^3/uL (0.83-4.51); Absolute Neutrophil Count 6.3 X10^3/uL (2.0-7.7); Basophil# 0.02 X10^3/uL; Basophil% 0.2 % (0-1); Eosinophil# 0.03 X10^3/uL; Eosinophils% 0.3 % (0-5); Hematocrit 41.5 % (40-54); Hemoglobin 13.3 g/dL (13.0-16.5); Lymphocyte # 1.48 X10^3/ul (4.0); Mean Corpuscular Volume 90.4 fL (80-94); Mean Platelet Vol. 11.3 fl (6.2-12.0); Monocyte# 0.89 X10^3/uL; Monocyte% 10.2 % (0-10); NRBC Flagged by Analyzer 0 % (0-5); Neutrophil # 6.28 X10^3/uL (2.7-7.7); Platelet Count 305 K/mm3 (150-450); RBC Distribution Width CV 12.8 % (11.6-14.6); RBC Distribution Width SD 42.1 fl (35.1-43.9); Red Blood Count 4.59 M/mm3 (4.6-6.2); White Blood Count 8.7 K/mm3 (4.4-11.0)
[2020-12-09 15:58] LABS: Vitamin B12 398 pg/mL (211-911)
[2020-12-09 16:02] LABS: ALB/GLOB Ratio 0.8 RATIO (0.9-2.4); AST(SGOT) 20 U/L (15-37); Alanine Aminotransfer ALT/SGPT 20 U/L (16-61); Albumin, Serum 3.6 g/dL (3.2-5.0); Alkaline Phosphatase 128 U/L (45-117); Anion Gap 7 (5-15); BUN 25 mg/dL (7-18); BUN/Creat Ratio 10.2 RATIO (10-20); Calcium,Total 9.1 mg/dL (8.5-10.1); Chloride 104 mmol/L (98-107); Creatinine, Serum 2.45 mg/dL (0.70-1.30); EST Glomerular Filtration Rate 27 mL/min (>60); Est Glom Filt Rate - Afr Amer 33 mL/min (>60); Globulin 4.3 g/dL (2.2-4.2); Glucose 136 mg/dL (74-106); Protein, Total 7.9 g/dL (6.4-8.2); Sodium Level 137 mmol/L (136-145)
[2020-12-09 16:23] LABS: Microalbumin,Random Urine 36.3 mg/L (NO RANGE EST.)
== END ==
PROVIDERS: PCP Family Medicine; Referring Provider Family Medicine; Visit Provider Family Medicine
DX: E11.40 Type 2 diabetes mellitus with diabetic neuropathy, unspecified (principal)
CPT/HCPCS: 36415; 80053; 82043; 82570; 82607; 85025

== ENCOUNTER → 2020-12-31 12:32 | Outpatient (CLI) | payer MEDICARE, SELFPAY ==
[2020-12-08 10:58] VITALS: BMI 22.3
[2020-12-22 10:34] VITALS: BMI 22.3
--- NOTE | 2020-12-31 12:34 | ADUL_ITS ---
Reason For Study: STRICTURE OF ARTERY Left Velocities Common Iliac Artery, dist = 136.3 cm./sec. Common Femoral Artery, mid = 77.3 cm./sec. Supf. Femoral Artery, prox = 96.5 cm./sec. Supf. Femoral Artery, mid = 351.3 cm./sec. Supf. Femoral Artery, dist = 39.8 cm./sec. Profunda Femoral Artery = 96.9 cm./sec. Popliteal Artery, proximal, = 99.0 cm./sec. Popliteal Artery, mid = 68.8 cm./sec. Popliteal Artery, distal = 64.1 cm./sec. Post. Tibial Artery, prox = 111.2 cm./sec. Post Tibial Artery, mid = 47.5 cm./sec. Post Tibial Artery, dist. = 43.1 cm./sec. Peroneal Artery, prox = 34.2 cm./sec. Peroneal Artery, mid = 35.3 cm./sec. Peroneal Artery,dist. = 19.1 cm./sec. Ant.Tibial Artery, prox = 21.3 cm./sec. Ant Tibial Artery, mid = 19.4 cm./sec. Ant. Tibial Artery, distal = 19.4 cm./sec. Procedure Technically difficult study below the knee. The exam was diagnostic. Exam performed in department. Interpretation Summary Left SFA with severe stenosis and goes from triphasic to biphasic flow. Ordering Physician: Emerson Bowens Referring Physician: Saman Arenas Performed By: Isela Werner, GINNACS, RVT
== END ==
PROVIDERS: PCP Family Medicine; Referring Provider Surgery Vascular Surgery; Visit Provider Surgery Vascular Surgery
DX: I73.9 Peripheral vascular disease, unspecified (principal); I77.1 Stricture of artery; E11.9 Type 2 diabetes mellitus without complications; E78.00 Pure hypercholesterolemia, unspecified; I10 Essential (primary) hypertension; L97.509 Non-pressure chronic ulcer of other part of unspecified foot with unspecified severity
CPT/HCPCS: 93926

== ENCOUNTER 2021-01-12 09:15 | Outpatient (RCR) | payer MEDICARE, SELFPAY ==
[2020-12-13 00:29] VITALS: BP 140/70; PULSE 66; RESP 18; TEMP 36.1
[2020-12-22 10:34] VITALS: BP 139/70; PULSE 61; RESP 18; TEMP 36.5; BMI 22.3
[2020-12-22 11:13] VITALS: BP 140/70
--- NOTE | 2020-12-22 11:52 | PCM.WC.PN ---
(1) Ulcer of left foot with fat layer exposed Status: Chronic Code(s): L97.522 - Non-pressure chronic ulcer of other part of left foot with fat layer exposed (2) Diabetes mellitus with neuropathy Status: Chronic Code(s): E11.40 - Type 2 diabetes mellitus with diabetic neuropathy, unspecified (3) Peripheral vascular disease Status: Chronic Code(s): I73.9 - Peripheral vascular disease, unspecified Type of Wound Date of Service: 12/22/20 Chief Complaint: Left foot ulcer History of Wound: This 75-year-old male was seen for left foot ulcer return to the wound healing center today. He got his noninvasive vascular studies completed recently. He was referred to vascular surgery and went for consultation. Additional arterial Doppler was ordered. It is noted he has a low ejection fraction and also small vessel disease is suspected. Dr. Bowens's note was reviewed. He has been changing the dressing as advised with Adelso. He wears offloading surgical shoe. He is with his today. Progress of Wound: Stable - Physical Exam Vital Signs Temp Pulse Resp BP 97.7 F L 61 18 140/70 H 12/22/20 10:34 12/22/20 10:34 12/22/20 10:34 12/22/20 11:13 General: Alert, Oriented x3, Cooperative, No apparent distress HEENT: Atraumatic Extremities: No cyanosis, No edema, Capillary Refill Less than 3 Seconds, No Calf Tenderness, Diminished Peripheral Pulses Skin: Ulcer/ Wound - No purulence, erythema, string, odor, infection. There is exposed devitalized fibers tissue including capsular tissue noted without healing progress. Adjacent skin is hairless and atrophic Wound Measurements and Assessment WC - Nurse 1 - General Ulcer Measurement Start: 12/22/20 10:34 Freq: Status: Active Protocol: Activity Type Activity Date Activity User E-Sign Co-Sign Detail Recorded Client Recorded Date Recorded By Document 12/22/20 10:34 DL [id number] 12/22/20 10:41 DL 12/22/20 10:34 Wound Center Nurse 1 [Ulcer Assessment] #1- L LATERAL FOOT -Current Size (cm) - Length 1.6 -Current Size (cm) - Width 1.6 -Current Size (cm) - Depth 0.3 -Total Square Cm 2.56 -Photo Taken No -Exudate Amt Medium -Wound Margin Thickened -Granulation Amt None Present (0 %) -Necrosis Amt Large (67-100%) -Necrotic Tissue Type Adherent Slough -Structure Exposed N/A -Texture (Kasia-wound Skin Appearance) Localized Edema ,Scarring -Moisture (Kasia-wound Skin Appearance No Abnormality ) -Color (Kasia-wound Skin Appearance) Erythema -Temperature (Kasia-wound Skin No Abnormality Appearance) (Pt Warm) -Tenderness on Palpation (Kasia-wound Yes Skin Appearance) -Ulcer Cleansing Rinsed/ Irrigated with Saline -Foul Odor after Cleansing No -Anesthetic Used 4% Lidocaine Solution ALFREDO - Nurse 2 - General Ulcer CM Notes Start: 12/22/20 10:34 Freq: Status: Active Protocol: Activity Type Activity Date Activity User E-Sign Co-Sign Detail Recorded Client Recorded Date Recorded By Document 12/22/20 10:51 MICHA [id number] 12/22/20 10:56 MICHA 12/22/20 10:51 Wound Center Nurse 2 [Procedure/Treatment] -Time 10:52 -Correct Patient Yes -Correct Side, Site, Position Yes -Correct Procedure Yes -Procedure Performed Yes -Type of Procedure Debridement -Clinical Debridement Subcutaneous -Tissue Removed Subcutaneous -Post Debridement (cm) - Length 1.6 -Post Debridement (cm) - Width 1.7 -Post Debridement (cm) - Depth 0.3 -Total Square (Post) (cm) 2.72 -Area of Debridement (cm) - Length 1.6 -Area of Debridement (cm) - Width 1.7 -Total Square (Area) (cm) 2.72 -Tunneling No -Undermining/Tunneling No -Circular Undermining No -Wound/Ulcer Outcome Not Healed -Ulcer Cleansing Rinsed/ Irrigated with Saline -Foul Odor after Cleansing No -Bioengineered Tissue No -Bleeding Controlled with Pressure -Offloading Yes -Type of Offloading Surgical Shoe -Debridement - Subq, 1st 20sq cm Yes [See Physician Procedure note for Specifics] Pain Scale: 0-10 Numeric [Pain] -Is Patient Pain Free? Yes ALFREDO - Nurse 3 - General Ulcer D/C NN Start: 12/22/20 10:34 Freq: Status: Active Protocol: Activity Type Activity Date Activity User E-Sign Co-Sign Detail Recorded Client Recorded Date Recorded By Document 12/22/20 11:13 RB [id number] 12/22/20 11:14 RB 12/22/20 11:13 Wound Care Nurse 3 [Wound Dressing] #1- L LATERAL FOOT -Ulcer Cleansing Rinsed/ Irrigated with Saline -Other Dressing hydrogel -Primary Dressing Covered/Secured Dry Gauze,Dry with Gauze & Roll Gauze,Secured with Tape [Post Procedure Tolerated] -Treatment Response Procedure Tolerated Well Vital Signs [Blood Pressure] -Blood Pressure (90/60-120/80) 140/70 H -Blood Pressure Mean (mm Hg) 93 -Source Monitor -Position Sitting -Blood Pressure Location Left Arm Pain Scale: 0-10 Numeric [Pain] -Is Patient Pain Free? Yes WC - Visit Discharge [Visit Discharge Information] -Discharge Condition Stable -Ambulatory Status Ambulatory -Transportation Private Auto -Medication Reconcilliation completed No & provided to patient/care provider -Clinical Summary of Care Provided Yes Musculoskeletal: No Tenderness to Palpation of Joints or Extremities, Muscle Wasting, - - Prominent fifth metatarsal head and subtle varus rotation of the fifth adjacent toe Neurological: Sensory exam intact to light touch and pain Psych/Mental Status: Normal Affect, Appropriate Debridement Note Post-Debridement Measurements/Treatment WC - Nurse 2 - General Ulcer CM Notes Start: 12/22/20 10:34 Freq: Status: Active Protocol: Activity Type Activity Date Activity User E-Sign Co-Sign Detail Recorded Client Recorded Date Recorded By Document 12/22/20 10:51 MICHA [id number] 12/22/20 10:56 MICHA 12/22/20 10:51 Wound Center Nurse 2 #1- L LATERAL FOOT -Time 10:52 -Correct Patient Yes -Correct Side, Site, Position Yes -Correct Procedure Yes -Procedure Performed Yes -Type of Procedure Debridement -Clinical Debridement Subcutaneous -Tissue Removed Subcutaneous -Post Debridement (cm) - Length 1.6 -Post Debridement (cm) - Width 1.7 -Post Debridement (cm) - Depth 0.3 -Total Square (Post) (cm) 2.72 -Area of Debridement (cm) - Length 1.6 -Area of Debridement (cm) - Width 1.7 -Total Square (Area) (cm) 2.72 -Tunneling No -Undermining/Tunneling No -Circular Undermining No -Wound/Ulcer Outcome Not Healed -Ulcer Cleansing Rinsed/ Irrigated with Saline -Foul Odor after Cleansing No -Bioengineered Tissue No -Bleeding Controlled with Pressure -Offloading Yes -Type of Offloading Surgical Shoe -Debridement - Subq, 1st 20sq cm Yes Pain Scale: 0-10 Numeric Is Patient Pain Free? Yes - Nurse 3 - General Ulcer D/C NN Start: 12/22/20 10:34 Freq: Status: Active Protocol: Activity Type Activity Date Activity User E-Sign Co-Sign Detail Recorded Client Recorded Date Recorded By Document 12/22/20 11:13 RB [id number] 12/22/20 11:14 RB 12/22/20 11:13 Wound Care Nurse 3 #1- L LATERAL FOOT -Ulcer Cleansing Rinsed/ Irrigated with Saline -Other Dressing hydrogel -Primary Dressing Covered/Secured with Dry Gauze,Dry Gauze & Roll Gauze,Secured with Tape Treatment Response Procedure Tolerated Well Vital Signs Blood Pressure (90/60-120/80) 140/70 H Blood Pressure Mean (mm Hg) 93 Source Monitor Position Sitting Blood Pressure Location Left Arm Pain Scale: 0-10 Numeric Is Patient Pain Free? Yes WC - Visit Discharge Discharge Condition Stable Ambulatory Status Ambulatory Transportation Private Auto Medication Reconcilliation completed & No provided to patient/care provider Clinical Summary of Care Provided Yes Wound debrided: lateral 5th metatarsal head Laterality: Left Wound Grade/Stage: grade 2 Type of Debridement: Excisional debridement Anesthesia Used: 5% Lidocaine Gel Depth: in the subcutaneous layer Percentage of wound debrided: 100 Instrument Used: #15 blade Tissue Removed: fibrous, devitalized subcutaneous, biofilm, slough Severity: Fat Layer Exposed Amount of bleeding with debridement: None Bleeding Controlled with: Pressure Patient tolerated procedure well Assessment/Plan Assessment: Left foot ulcer now with the capsule layer exposed, left (subfifth metatarsal head). Diabetes with suspected neuropathy. Peripheral vascular disease. Low cardiac output. Hammertoes with forefoot deformities bilateral. Malnutrition suspected Plan: I reviewed and discussed his plan. Subcutaneous excisional debridement was performed as noted in the clinical panel. He was advised to change his dressing daily with collagenase, enzymatic debrider. To continue. To change his daily wash with antibacterial soap and water. I recommend offloading bilateral subfifth metatarsal head areas with surgical shoes. To try to keep mostly weight on the heel. Basic labs were ordered including CBC and CMP. This was reviewed without fracture, dislocation, soft tissue emphysema, osseous destruction or foreign body. Due to the periulcer inflammation infection screening will be started with a wound culture including aerobic, anaerobic, and MRSA PCR. There is no bacterial growth. I fabricated dual density offloading liners today to take additional pressure off of the ulcer site. I recommend nutritional supplementation optimize healing including Enri nutritional supplement pack daily. Noninvasive arterial studies including segmental pressures, MEHREEN, systolic toe pressures were ordered to screen for any vascular impairment to the lower extremity. He has apparent calcification and monophasic PT and DP waveforms bilateral. I recommend a referral to vascular specialist, Dr. Bowens. He was seen by Dr. Bowens and his note was reviewed. An arterial Doppler was ordered to see if additional intervention is appropriate. His healing potential is limited without adequate blood flow. It is also noted that his A1c is 11.8% which also does not have a good healing outcome. I advised him on continued improved diabetic control. The etiology of the ulcer development and component needed for wound healing were reviewed in detail again today. I recommend that he return to the wound healing center 2 weeks or call sooner if he has any questions or concerns. At this point may be more appropriate to debride every other week due to his vascular status and low cardiac output. I answered all his questions. . Note: [employer] speech recognition crisis counselor software was used to create portions of this document. Sound-alike and misspelled words, as well as other crisis counselor errors may be contained in the documentation. 11 minutes was spent on this encounter. This included face to face and non face to face care including preparing for the visit, reviewing the history, performing the exam, counseling and providing education to the patient, family, or caregiver, ordering medications/test/ procedures if indicated as documented, communicating with other healthcare providers, documenting information in the medical record, interpreting / sharing this information when indicated as documented, and care coordination. Macra 2020: reviewed today: medications and allergies reviewed and reconciled. reviewed 10/20/2020: BMI 24.0. blood pressure 140/70. He was advised to follow-up with his primary care physician on his systolic blood pressure which is over 120. He was advised on proper activity levels and diet to optimize wound healing and for overall health. Tobacco status: It is noted he was never smoker. Living will: Yes
--- NOTE | 2021-01-05 | BON_PTH ---
PATIENT: TAM BUSTOS LOC: U#:[id number] AGE/SX: 75/M ROOM: RE01/12/[address]: Dr. Aleyda Mandujano DPM : 1945 BED: DIS: 01/12/2021 SPEC #: [id number] RECD: 01/05/21 12:44 STATUS: TYRONE RECortez #: [id number] BRITTANY: 01/05/21 00:[address]: Aleyda Mandujano DEPT: SURGICAL PATHOLOGY RECD BY: Wilfredo Muñoz ENTERED: 01/05/21 12:45 SP TYPE: Bone OTHR DR: Dr. Saman Arenas MD Tissues: Bone of foot, NOS Procedures: Decalcification bone/plaque Surgery Specimen Level IV HEADER OPERATION: Bone biopsy fifth metatarsal, left PRE-OP DIAGNOSIS: Osteomyelitis, chronic ulcer TISSUE SUBMITTED: Left fifth metatarsal head bone MICROSCOPIC DIAGNOSIS Left fifth metatarsal head bone, biopsy: Fibrocartilaginous tissue with associated fibrinoid material, acute inflammation and dystrophic microcalcifications. Minute fragment of bone with no pathologic change. Bacterial colonies present. AM:prudence 01/07/2021 COMMENT GMS stain with matched control supports the diagnosis. Clinical correlation is necessary. Case has been reviewed in consultation with Dr. Martin who concurs with the above diagnosis. IDC:JORY MICROSCOPIC DESCRIPTION Slides are reviewed. GROSS DESCRIPTION Received in fixative is one container labeled with the patient's name and designated left fifth metatarsal head bone. The specimen consists of a piece of bone measuring 1 x 0.6 x 0.3 cm. The entire specimen is submitted in one cassette after decalcification. / JORY:prudence 01/05/21 TC:2 CPT: 74394, 46831,45117
[2021-01-05 10:33] VITALS: BP 113/54; PULSE 77; RESP 18; TEMP 36.6; BMI 22.3
[2021-01-05 11:15] VITALS: BP 113/54
--- NOTE | 2021-01-05 11:15 | PCM.WC.PN ---
(1) Non-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 Status: Chronic Code(s): L97.524 - Non-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 (2) Diabetes mellitus with neuropathy Status: Chronic Code(s): E11.40 - Type 2 diabetes mellitus with diabetic neuropathy, unspecified (3) Peripheral vascular disease Status: Chronic Code(s): I73.9 - Peripheral vascular disease, unspecified (4) Tailor's bunion of left foot Status: Chronic Code(s): M21.622 - Bunionette of left foot Type of Wound Date of Service: 01/05/21 Chief Complaint: Left foot ulcer History of Wound: This 75-year-old male was seen for left foot ulcer return to the wound healing center today. He got his noninvasive vascular studies completed recently. He was referred to vascular surgery and went for consultation. Additional arterial Doppler was ordered and he is in the process of getting scheduled for interventional procedure. It is noted he has a low ejection fraction and also small vessel disease is suspected. Dr. Bowens's note was reviewed. He has been changing the dressing as advised with Santyl. He wears offloading surgical shoe. He is with his today. His foot has pain today. He denies odor. Progress of Wound: Worse status with deeper tissue exposed - Physical Exam Vital Signs Temp Pulse Resp BP 97.9 F 77 18 113/54 L 01/05/21 10:33 01/05/21 10:33 01/05/21 10:33 01/05/21 10:33 General: Alert, Oriented x3, Cooperative, No apparent distress HEENT: Atraumatic Extremities: No cyanosis, Capillary Refill Less than 3 Seconds, No Calf Tenderness, Diminished Peripheral Pulses, Edema - Mild peripheral ulcer site, Tenderness - Ulcer manipulation and debridement, left Skin: Ulcer/ Wound - No purulence, odor, erythema or streaking. There is no exposed capsule and bone at the fifth metatarsal head site. No adjacent bogginess or fluctuance on palpation. The adjacent skin is hairless and atrophic. There is intermittent eschar fibrous and devitalized tissue in the ulcer bed., - Wound Measurements and Assessment WC - Nurse 1 - General Ulcer Measurement Start: 12/22/20 10:34 Freq: Status: Active Protocol: Activity Type Activity Date Activity User E-Sign Co-Sign Detail Recorded Client Recorded Date Recorded By Document 01/05/21 10:33 DL [id number] 01/05/21 10:42 DL 01/05/21 10:33 Wound Center Nurse 1 [Ulcer Assessment] #1- L LATERAL FOOT -Current Size (cm) - Length 1.8 -Current Size (cm) - Width 1.8 -Current Size (cm) - Depth 0.2 -Total Square Cm 3.24 -Undermining/Tunneling Starts (O' 2 clock) -Undermining/Tunneling Ends (O'clock) 5 -Maximum Distance (cm) 0.2 -Exudate Amt Medium -Exudate Type Serosanguineous -Wound Margin Distinct, Outline Attached -Granulation Amt None Present (0 %) -Slough/Fibrin Yes -Necrotic Tissue Type Eschar -Texture (Kasia-wound Skin Appearance) Localized Edema ,Scarring -Moisture (Kasia-wound Skin Appearance No Abnormality ) -Color (Kasia-wound Skin Appearance) Erythema -Temperature (Kasia-wound Skin Hot Appearance) -Tenderness on Palpation (Kasia-wound Yes Skin Appearance) -Ulcer Cleansing Wound Cleanser -Foul Odor after Cleansing No -Anesthetic Used 4% Lidocaine Solution,5% Lidocaine Gel WC - Nurse 2 - General Ulcer CM Notes Start: 12/22/20 10:34 Freq: Status: Active Protocol: Activity Type Activity Date Activity User E-Sign Co-Sign Detail Recorded Client Recorded Date Recorded By Document 01/05/21 10:55 MICHA [id number] 01/05/21 10:59 MICHA 01/05/21 10:55 Wound Center Nurse 2 [Procedure/Treatment] -Time 10:57 -Correct Patient Yes -Correct Side, Site, Position Yes -Correct Procedure Yes -Procedure Performed Yes -Type of Procedure Debridement -Clinical Debridement Bone -Tissue Removed Muscle,Slough, Non-viable tissue -Post Debridement (cm) - Length 1.8 -Post Debridement (cm) - Width 1.8 -Post Debridement (cm) - Depth 0.2 -Total Square (Post) (cm) 3.24 -Area of Debridement (cm) - Length 1.8 -Area of Debridement (cm) - Width 1.8 -Total Square (Area) (cm) 3.24 -Tunneling No -Undermining/Tunneling No -Circular Undermining No -Wound/Ulcer Outcome Not Healed -Ulcer Cleansing Rinsed/ Irrigated with Saline -Foul Odor after Cleansing No -Bioengineered Tissue No -Bleeding Controlled with Pressure -Offloading No -Treatment Response Procedure Tolerated Well -Debridement - Open, 1st 20sq cm No -Debridement - Bone, 20sq cm Yes [See Physician Procedure note for Specifics] Pain Scale: 0-10 Numeric [Pain] -Is Patient Pain Free? Yes Musculoskeletal: Muscle Wasting Neurological: Sensory exam intact to light touch and pain Psych/Mental Status: Normal Affect, Appropriate Debridement Note Post-Debridement Measurements/Treatment WC - Nurse 2 - General Ulcer CM Notes Start: 12/22/20 10:34 Freq: Status: Active Protocol: Activity Type Activity Date Activity User E-Sign Co-Sign Detail Recorded Client Recorded Date Recorded By Document 12/22/20 10:51 [id number] 12/22/20 10:56 Document 01/05/21 10:55 [id number] 01/05/21 10:59 12/22/20 01/05/21 10:51 10:55 Wound Center Nurse 2 #1- L LATERAL FOOT -Time 10:52 10:57 -Correct Patient Yes Yes -Correct Side, Site, Position Yes Yes -Correct Procedure Yes Yes -Procedure Performed Yes Yes -Type of Procedure Debridement Debridement -Clinical Debridement Subcutaneous Bone -Tissue Removed Subcutaneous Muscle,Slough, Non-viable tissue -Post Debridement (cm) - Length 1.6 1.8 -Post Debridement (cm) - Width 1.7 1.8 -Post Debridement (cm) - Depth 0.3 0.2 -Total Square (Post) (cm) 2.72 3.24 -Area of Debridement (cm) - Length 1.6 1.8 -Area of Debridement (cm) - Width 1.7 1.8 -Total Square (Area) (cm) 2.72 3.24 -Tunneling No No -Undermining/Tunneling No No -Circular Undermining No No -Wound/Ulcer Outcome Not Healed Not Healed -Ulcer Cleansing Rinsed/ Rinsed/ Irrigated with Irrigated with Saline Saline -Foul Odor after Cleansing No No -Bioengineered Tissue No No -Bleeding Controlled with Pressure Pressure -Offloading Yes No -Type of Offloading Surgical Shoe -Treatment Response Procedure Tolerated Well -Debridement - Open, 1st 20sq cm No -Debridement - Subq, 20sq cm Yes -Debridement - Bone, 1st 20sq cm Yes Pain Scale: 0-10 Numeric Is Patient Pain Free? Yes Yes WC - Nurse 3 - General Ulcer D/C NN Start: 12/22/20 10:34 Freq: Status: Active Protocol: Activity Type Activity Date Activity User E-Sign Co-Sign Detail Recorded Client Recorded Date Recorded By Document 12/22/20 11:13 RB [id number] 12/22/20 11:14 RB 12/22/20 11:13 Wound Care Nurse 3 #1- L LATERAL FOOT -Ulcer Cleansing Rinsed/ Irrigated with Saline -Other Dressing hydrogel -Primary Dressing Covered/Secured with Dry Gauze,Dry Gauze & Roll Gauze,Secured with Tape Treatment Response Procedure Tolerated Well Vital Signs Blood Pressure (90/60-120/80) 140/70 H Blood Pressure Mean (mm Hg) 93 Source Monitor Position Sitting Blood Pressure Location Left Arm Pain Scale: 0-10 Numeric Is Patient Pain Free? Yes WC - Visit Discharge Discharge Condition Stable Ambulatory Status Ambulatory Transportation Private Auto Medication Reconcilliation completed & No provided to patient/care provider Clinical Summary of Care Provided Yes Wound debrided: lateral forefoot Laterality: Left Wound Grade/Stage: grade 2 Type of Debridement: Excisional debridement Anesthesia Used: 5% Lidocaine Gel Depth: in the subcutaneous layer Percentage of wound debrided: 100 Instrument Used: #15 blade Tissue Removed: fibrous, devitalized subcutaneous, biofilm, slough Severity: Fat Layer Exposed Amount of bleeding with debridement: Mild Bleeding Controlled with: Pressure Patient tolerated procedure well Assessment/Plan Active Problems (Last Reviewed 10/31/19 @ 10:[address] Napoleon Zabala MD) Ulcer of left foot with fat layer exposed (Chronic) Diabetes mellitus with neuropathy (Chronic) Peripheral vascular disease (Chronic) Non-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 (Chronic) Tailor's bunion of left foot (Chronic) Assessment: Left foot ulcer now with the bone layer exposed, left (subfifth metatarsal head). Diabetes with suspected neuropathy. Peripheral vascular disease. Low cardiac output. Hammertoes with forefoot deformities bilateral. Malnutrition suspected Plan: I reviewed and discussed his plan. Subcutaneous excisional debridement was performed as noted in the clinical panel including the recently exposed bone. He was advised to change his dressing daily with Dakin wet-to-dry daily to continue. To change his daily wash with antibacterial soap and water. I am concerned about his exposed bone and this is classified as a [place] grade 2. Work-up for osteomyelitis ([place] grade 3) will be started due to this exposed deep layer. There was some of the bone cortex debrided and this was sent to both microbiology and pathology. Updated labs were ordered including CBC, CMP, ESR, C-reactive protein. A foot x-ray was also ordered. I will follow up with him with these results prior to his follow-up visit next week. He does not have systemic illness or even any adjacent purulence or erythema. At this time this, this work-up can be completed in the outpatient setting. I recommend offloading bilateral subfifth metatarsal head areas with surgical shoes. To try to keep mostly weight on the heel. I previously fabricated dual density offloading liners today to take additional pressure off of the ulcer site. I recommend nutritional supplementation optimize healing including Neri nutritional supplement pack daily. Noninvasive arterial studies including segmental pressures, MEHREEN, systolic toe pressures were ordered to screen for any vascular impairment to the lower extremity. He has apparent calcification and monophasic PT and DP waveforms bilateral. I recommend a referral to vascular specialist, Dr. Bowens. He was seen by Dr. Bowens and his note was reviewed. An arterial Doppler was ordered to see if additional intervention is appropriate and scheduling is in process. His healing potential is limited without adequate blood flow. It is also noted that his A1c is 11.8% which also does not have a good healing outcome. I advised him on continued improved diabetic control. The etiology of the ulcer development and component needed for wound healing were reviewed in detail again today. I recommend that he return to the wound healing center 1 weeks or call sooner if he has any questions or concerns. I answered all his questions. . Note: [employer] speech recognition procurement clerk software was used to create portions of this document. Sound-alike and misspelled words, as well as other procurement clerk errors may be contained in the documentation. 11 minutes was spent on this encounter. This included face to face and non face to face care including preparing for the visit, reviewing the history, performing the exam, counseling and providing education to the patient, family, or caregiver, ordering medications/test/ procedures if indicated as documented, communicating with other healthcare providers, documenting information in the medical record, interpreting / sharing this information when indicated as documented, and care coordination. Mac 2020: reviewed today: medications and allergies reviewed and reconciled. reviewed 10/20/2020: BMI 24.0. blood pressure 140/70. He was advised to follow-up with his primary care physician on his systolic blood pressure which is over 120. He was advised on proper activity levels and diet to optimize wound healing and for overall health. Tobacco status: It is noted he was never smoker. Living will: Yes
--- NOTE | 2021-01-05 12:00 | RAD_ITS ---
ACR Level 3 findings have been noted. An addendum which confirms receipt of the report will follow. STUDY: X-RAY - LEFT FOOT CLINICAL: Open wound of the fifth digit for one year, diabetic, evaluate osteomyelitis. TECHNIQUE: 3 view(s) of the foot. COMPARISON: Radiographs 09/29/2020. FINDINGS: There is a posterior calcaneal enthesophyte. Otherwise, unremarkable talus, calcaneus, and tarsal bones. Normal visualized subtalar, talonavicular, calcaneocuboid, tarsal and tarsometatarsal articulations. Normal metatarsophalangeal joint of the great toe. Normal tibial and fibular sesamoid bones. There is a bipartite tibial sesamoid. Normal interphalangeal joint of the great toe. Normal phalanges of the great toe. Normal second through fifth metatarsophalangeal joints. There is interval development of osseous destruction of the fifth proximal diametaphysis of the fifth proximal phalanx and of the lateral aspect of the fifth metatarsal head. There is vascular calcification. RAD/Foot min 3 Views IMPRESSION: Interval development of osseous destruction of the fifth metatarsal head and fifth proximal phalanx suggestive of osteomyelitis. Electronically Signed: Anand Eckert MD at 14:43 EDT Tel , Service support ,
[2021-01-05 12:27] LABS: Erythrocyte Sedimentation Rate 55 mm/hr (0-20)
[2021-01-05 12:31] LABS: Absolute Lymphocyte Count 1.53 X10^3/uL (0.83-4.51); Absolute Neutrophil Count 9.3 X10^3/uL (2.0-7.7); Basophil# 0.04 X10^3/uL; Basophil% 0.3 % (0-1); Eosinophil# 0.02 X10^3/uL; Eosinophils% 0.2 % (0-5); Hematocrit 40.1 % (40-54); Hemoglobin 12.8 g/dL (13.0-16.5); Lymphocyte # 1.53 X10^3/ul (4.0); Lymphocyte % 12.6 % (19-41); Mean Corp Hgb Conc 31.9 g/dL (32-36); Mean Corpuscular Hgb 29.2 pg (27.0-32.0); Mean Corpuscular Volume 91.6 fL (80-94); Mean Platelet Vol. 10.8 fl (6.2-12.0); Monocyte% 9.9 % (0-10); NRBC Flagged by Analyzer 0 % (0-5); Neutrophil # 9.27 X10^3/uL (2.7-7.7); Neutrophil % 76.6 % (47-70); Platelet Count 316 K/mm3 (150-450); RBC Distribution Width CV 12.8 % (11.6-14.6); RBC Distribution Width SD 42.9 fl (35.1-43.9); Red Blood Count 4.38 M/mm3 (4.6-6.2); White Blood Count 12.1 K/mm3 (4.4-11.0)
[2021-01-05 13:23] LABS: ALB/GLOB Ratio 0.6 RATIO (0.9-2.4); AST(SGOT) 21 U/L (15-37); Alanine Aminotransfer ALT/SGPT 18 U/L (16-61); Albumin, Serum 3.1 g/dL (3.2-5.0); Alkaline Phosphatase 129 U/L (45-117); Anion Gap 8 (5-15); BUN 29 mg/dL (7-18); BUN/Creat Ratio 11.2 RATIO (10-20); Calcium,Total 9.3 mg/dL (8.5-10.1); Chloride 106 mmol/L (98-107); Creatinine, Serum 2.59 mg/dL (0.70-1.30); EST Glomerular Filtration Rate 26 mL/min (>60); Est Glom Filt Rate - Afr Amer 31 mL/min (>60); Estimated Creatinine Clearance 20.53 ml/min; Globulin 4.8 g/dL (2.2-4.2); Glucose 118 mg/dL (74-106); Protein, Total 7.9 g/dL (6.4-8.2); Sodium Level 136 mmol/L (136-145)
[2021-01-12 09:20] VITALS: BP 123/59; PULSE 74; RESP 18; TEMP 35.9; BMI 22.3
--- NOTE | 2021-01-12 11:16 | PN.PCM_ITS ---
(1) Non-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 Status: Chronic Code(s): L97.524 - Non-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 (2) Diabetes mellitus with neuropathy Status: Chronic Code(s): E11.40 - Type 2 diabetes mellitus with diabetic neuropathy, unspecified (3) Peripheral vascular disease Status: Chronic Code(s): I73.9 - Peripheral vascular disease, unspecified (4) Tailor's bunion of left foot Status: Chronic Code(s): M21.622 - Bunionette of left foot (5) Osteomyelitis Status: Chronic Code(s): M86.9 - Osteomyelitis, unspecified Type of Wound Date of Service: 01/12/21 Chief Complaint: Left foot ulcer History of Wound: This 75-year-old male was seen for left foot ulcer return to the wound healing center today. He got his noninvasive vascular studies completed and is scheduled for an interventional procedure next week. It is noted he has a low ejection fraction and also small vessel disease is suspected. Dr. Bowens's note was reviewed. He has been changing the dressing as advised with Dakins solution. He wears offloading surgical shoe. He is with his today. He has odor and redness and was started on Augmentin within the past week. He has been taking it without side effects or diarrhea. He was scheduled with infectious disease this upcoming in the [place] office however relates he he has canceled this and does not feel comfortable driving in [place]. His rescheduled the appointment for next month and this is not recommended. Progress of Wound: Worse status with deeper tissue exposed - Physical Exam Vital Signs Temp Pulse Resp BP 96.7 F L 74 18 123/59 H 01/12/21 09:20 01/12/21 09:20 01/12/21 09:20 01/12/21 09:20 General: Alert, Oriented x3, Cooperative, No apparent distress Extremities: No cyanosis, Capillary Refill Less than 3 Seconds, No Calf Tenderness, Diminished Peripheral Pulses, Edema Skin: Ulcer/ Wound - There is exposed fifth metatarsal and proximal phalanx bone that is worley soft and necrotic with adjacent devitalized tissue. Upon debridement there is bleeding tissue and no additional purulence fluctuance or bogginess. His adjacent skin is hairless and atrophic., - - Erythema extends approximately 1 cm adjacent to ulcer in each direction Wound Measurements and Assessment WC - Nurse 1 - General Ulcer Measurement Start: 12/22/20 10:34 Freq: Status: Active Protocol: Activity Type Activity Date Activity User E-Sign Co-Sign Detail Recorded Client Recorded Date Recorded By Document 01/12/21 09:20 DL [id number] 01/12/21 09:24 DL 01/12/21 09:20 Wound Center Nurse 1 [Ulcer Assessment] #1- L LATERAL FOOT -Current Size (cm) - Length 1.8 -Current Size (cm) - Width 1.8 -Current Size (cm) - Depth 0.3 -Total Square Cm 3.24 -Photo Taken No -Exudate Amt Medium -Exudate Type Serosanguineous -Wound Margin Distinct, Outline Attached -Granulation Amt None Present (0 %) -Necrosis Amt Large (67-100%) -Necrotic Tissue Type Adherent Slough -Structure Exposed Bone -Texture (Kasia-wound Skin Appearance) Localized Edema ,Scarring -Moisture (Kasia-wound Skin Appearance No Abnormality ) -Color (Kasia-wound Skin Appearance) Erythema -Temperature (Kasia-wound Skin No Abnormality Appearance) (Pt Warm) -Tenderness on Palpation (Kasia-wound Yes Skin Appearance) -Ulcer Cleansing Wound Cleanser -Foul Odor after Cleansing No -Anesthetic Used 4% Lidocaine Solution,5% Lidocaine Gel WC - Nurse 2 - General Ulcer CM Notes Start: 12/22/20 10:34 Freq: Status: Active Protocol: Activity Type Activity Date Activity User E-Sign Co-Sign Detail Recorded Client Recorded Date Recorded By Document 01/12/21 09:57 MICHA [id number] 01/12/21 09:59 01/12/21 09:57 Wound Center Nurse 2 [Procedure/Treatment] -Time 09:58 -Correct Patient Yes -Correct Side, Site, Position Yes -Correct Procedure Yes -Procedure Performed Yes -Type of Procedure Debridement -Clinical Debridement Bone -Tissue Removed Slough,Non- viable tissue -Post Debridement (cm) - Length 1.8 -Post Debridement (cm) - Width 2 -Post Debridement (cm) - Depth 0.3 -Total Square (Post) (cm) 3.6 -Area of Debridement (cm) - Length 1.8 -Area of Debridement (cm) - Width 2 -Total Square (Area) (cm) 3.6 -Tunneling No -Undermining/Tunneling No -Circular Undermining No -Wound/Ulcer Outcome Not Healed -Ulcer Cleansing Rinsed/ Irrigated with Saline -Foul Odor after Cleansing No -Bioengineered Tissue No -Bleeding Controlled with Pressure -Offloading Yes -Type of Offloading Surgical Shoe -Treatment Response Procedure Tolerated Well -Debridement - Bone, 1st 20sq cm Yes [See Physician Procedure note for Specifics] Pain Scale: 0-10 Numeric [Pain] -Is Patient Pain Free? Yes - Nurse 3 - General Ulcer D/C NN Start: 12/22/20 10:34 Freq: Status: Active Protocol: Activity Type Activity Date Activity User E-Sign Co-Sign Detail Recorded Client Recorded Date Recorded By Document 01/12/21 10:08 [facility] [id number] 01/12/21 10:08 [facility] 01/12/21 10:08 Wound Care Nurse 3 [Wound Dressing] #1- L LATERAL FOOT -Ulcer Cleansing Rinsed/ Irrigated with Saline -Foul Odor after Cleansing No -Primary Dressing Applied Other -Other Dressing MOIST TO DRY DRSG -Primary Dressing Covered/Secured Dry Gauze & with Roll Gauze, Secured with Tape [Post Procedure Tolerated] -Treatment Response Procedure Tolerated Well Pain Scale: 0-10 Numeric [Pain] -Is Patient Pain Free? Yes - Visit Discharge [Visit Discharge Information] -Discharge Condition Stable -Ambulatory Status Ambulatory,Cane -Transportation Private Auto -Accompanied by Musculoskeletal: No Tenderness to Palpation of Joints or Extremities, Muscle Wasting, Tenderness, - - Compartment soft to palpate to the foot without skin tenting Neurological: Sensory exam intact to light touch and pain Psych/Mental Status: Normal Affect, Appropriate Debridement Note Post-Debridement Measurements/Treatment - Nurse 2 - General Ulcer CM Notes Start: 12/22/20 10:34 Freq: Status: Active Protocol: Activity Type Activity Date Activity User E-Sign Co-Sign Detail Recorded Client Recorded Date Recorded By Document 12/22/20 10:51 [id number] 12/22/20 10:56 Document 01/05/21 10:55 [id number] 01/05/21 10:59 Document 01/12/21 09:57 [id number] 01/12/21 09:59 JF 12/22/20 01/05/21 01/12/21 10:51 10:55 09:57 Wound Center Nurse 2 #1- L LATERAL FOOT -Time 10:52 10:57 09:58 -Correct Patient Yes Yes Yes -Correct Side, Site, Position Yes Yes Yes -Correct Procedure Yes Yes Yes -Procedure Performed Yes Yes Yes -Type of Procedure Debridement Debridement Debridement -Clinical Debridement Subcutaneous Bone Bone -Tissue Removed Subcutaneous Muscle,Slough, Slough,Non- Non-viable viable tissue tissue -Post Debridement (cm) - Length 1.6 1.8 1.8 -Post Debridement (cm) - Width 1.7 1.8 2 -Post Debridement (cm) - Depth 0.3 0.2 0.3 -Total Square (Post) (cm) 2.72 3.24 3.6 -Area of Debridement (cm) - Length 1.6 1.8 1.8 -Area of Debridement (cm) - Width 1.7 1.8 2 -Total Square (Area) (cm) 2.72 3.24 3.6 -Tunneling No No No -Undermining/Tunneling No No No -Circular Undermining No No No -Wound/Ulcer Outcome Not Healed Not Healed Not Healed -Ulcer Cleansing Rinsed/ Rinsed/ Rinsed/ Irrigated with Irrigated with Irrigated with Saline Saline Saline -Foul Odor after Cleansing No No No -Bioengineered Tissue No No No -Bleeding Controlled with Pressure Pressure Pressure -Offloading Yes No Yes -Type of Offloading Surgical Shoe Surgical Shoe -Treatment Response Procedure Procedure Tolerated Well Tolerated Well -Debridement - Open, 1st 20sq cm No -Debridement - Subq, 1st 20sq cm Yes -Debridement - Bone, 1st 20sq cm Yes Yes Pain Scale: 0-10 Numeric Is Patient Pain Free? Yes Yes Yes - Nurse 3 - General Ulcer D/C NN Start: 12/22/20 10:34 Freq: Status: Active Protocol: Activity Type Activity Date Activity User E-Sign Co-Sign Detail Recorded Client Recorded Date Recorded By Document 12/22/20 11:13 RB [id number] 12/22/20 11:14 RB Document 01/05/21 11:15 RB [id number] 01/05/21 11:16 RB Document 01/05/21 11:24 DL [id number] 01/05/21 11:26 DL Document 01/12/21 10:08 BMF [id number] 01/12/21 10:08 BMF 12/22/20 01/05/21 01/05/21 11:13 11:15 11:24 Wound Care Nurse 3 #1- L LATERAL FOOT -Ulcer Cleansing Rinsed/ Rinsed/ Irrigated with Irrigated with Saline Saline -Foul Odor after Cleansing No -Primary Dressing Applied -Other Dressing hydrogel saline moist gauze moistened gauze -Primary Dressing Covered/Secured with Dry Gauze,Dry Dry Gauze,Dry Dry Gauze & Gauze & Roll Gauze & Roll Roll Gauze, Gauze,Secured Gauze,Secured Secured with with Tape with Tape Tape Treatment Response Procedure Procedure Procedure Tolerated Well Tolerated Well Tolerated Well Vital Signs Blood Pressure (90/60-120/80) 140/70 H 113/54 L Blood Pressure Mean (mm Hg) 93 73 Source Monitor Monitor Position Sitting Sitting Blood Pressure Location Left Arm Left Arm Pain Scale: 0-10 Numeric Is Patient Pain Free? Yes Yes WC - Visit Discharge Discharge Condition Stable Stable Stable Ambulatory Status Ambulatory Ambulatory Ambulatory,Cane Transportation Private Auto Private Auto Private Auto Accompanied by Medication Reconcilliation completed & No No provided to patient/care provider Clinical Summary of Care Provided Yes Yes Notes: instructed on application of Dakins and where to obtain it. 01/12/21 10:08 Wound Care Nurse 3 #1- L LATERAL FOOT -Ulcer Cleansing Rinsed/ Irrigated with Saline -Foul Odor after Cleansing No -Primary Dressing Applied Other -Other Dressing MOIST TO DRY DRSG -Primary Dressing Covered/Secured with Dry Gauze & Roll Gauze, Secured with Tape Treatment Response Procedure Tolerated Well Vital Signs Blood Pressure (90/60-120/80) Blood Pressure Mean (mm Hg) Source Position Blood Pressure Location Pain Scale: 0-10 Numeric Is Patient Pain Free? Yes WC - Visit Discharge Discharge Condition Stable Ambulatory Status Ambulatory,Cane Transportation Private Auto Accompanied by Medication Reconcilliation completed & provided to patient/care provider Clinical Summary of Care Provided Notes: Wound debrided: lateral forefoot Laterality: Left Wound Grade/Stage: grade 3 Type of Debridement: Excisional debridement Anesthesia Used: 5% Lidocaine Gel, - - 8 cc 2% lidocaine plain administered in typical left foot fifth ray block fashion Depth: in the subcutaneous layer, to muscle, to bone Percentage of wound debrided: 100 Instrument Used: #15 blade Tissue Removed: fibrous, devitalized subcutaneous and bone, biofilm, slough Severity: Necrosis of Bone Amount of bleeding with debridement: Mild Bleeding Controlled with: Pressure Patient tolerated procedure well Assessment/Plan Clinical Impression(s) from Imaging Studies Foot X-Ray 01/05/21 12:00 IMPRESSION: Interval development of osseous destruction of the fifth metatarsal head and fifth proximal phalanx suggestive of osteomyelitis. Electronically Signed: Anand Eckert MD at 14:43 EDT Tel , Service support , ADDENDUM: 01/05/21 1538 IMPRESSION: Interval development of osseous destruction of the fifth metatarsal head and fifth proximal phalanx suggestive of osteomyelitis. N.B. : Aleyda Mandujano MD, confirmed on 01/05/2021 15:31:16 (ET) that the healthcare facility has received the radiology report. Electronically Signed: Anand Eckert MD at 14:43 EDT Tel , Service support , Active Problems (Last Reviewed 10/31/19 @ 10:[address] Napoleon Zabala MD) Ulcer of left foot with fat layer exposed (Chronic) Diabetes mellitus with neuropathy (Chronic) Peripheral vascular disease (Chronic) Non-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 ( Chronic) Tailor's bunion of left foot (Chronic) Osteomyelitis (Chronic) Assessment: Left foot ulcer now with the bone layer exposed, left (subfifth metatarsal head). Osteomyelitis. Diabetes with suspected neuropathy. Peripheral vascular disease. Low cardiac output. Hammertoes with forefoot deformities bilateral. Malnutrition suspected Plan: I reviewed and discussed his plan. Subcutaneous and bone excisional debridement was performed as noted in the clinical panel. This is consistent with clinical diagnosis of osteomyelitis due to the worley discoloration softness and necrotic tissue. He was advised to change his dressing daily with Dakin wet-to-dry daily to continue. To change his daily wash with antibacterial soap and water. I am concerned about his exposed bone and this is classified as a [place] grade 3. Work-up for osteomyelitis ([place] grade 3). Culture growth is reviewed (staph aginoginosus, staph caprae, and enterococcus faecalis) and he was advised to continue Augmentin. His previous bone biopsy did not confirm osteomyelitis however there is now significant clinical change and this is being treated at this time. He had leukocytosis last week. He had a white blood cell count of 12.1, ESR 55, C-reactive protein is 64.2. His prior hemoglobin A1c from June was 11.8%. A foot x-ray was also reviewed from the foot and ankle center this past Sunday with continued diminished bone density to the head of the fifth metatarsal consistent with osteomyelitis and a rare fraction. There is no soft tissue emphysema or foreign body or other william osseous destruction. I recommended infectious disease referral. I like to see him treated for to inspection and stabilized while he undergoes vascular surgery intervention and then foot specific surgery including a fifth ray resection. The patient understands and is amenable. It is noted he rescheduled his infectious disease consult for approximately 1 month later which is not appropriate. I advised him to see if he can find a ride to go to [place] later this week or try for a phone consultation. If his condition worsens in regards to his infection status he may require hospital admission. I recommend offloading bilateral subfifth metatarsal head areas with surgical shoes. To try to keep mostly weight on the heel. I previously fabricated dual density offloading liners today to take additional pressure off of the ulcer site. I recommend nutritional supplementation optimize healing including Neri nutritional supplement pack daily. Noninvasive arterial studies including segmental pressures, MEHREEN, systolic toe pressures were ordered to screen for any vascular impairment to the lower extremity. He has apparent calcification and monophasic PT and DP waveforms bilateral. I recommend a referral to vascular specialist, Dr. Bowens. He was seen by Dr. Bowens and his note was reviewed. An arterial Doppler was ordered to see if additional intervention is appropriate and is scheduled next week. His healing potential is limited without adequate blood flow. It is also noted that his A1c is 11.8% which also does not have a good healing outcome. I advised him on continued improved diabetic control. The etiology of the ulcer development and component needed for wound healing were reviewed in detail again today. I recommend that he return to the wound healing center 1 weeks or call sooner if he has any questions or concerns. I answered all his questions. . Note: [employer] speech recognition professor of fine art software was used to create portions of this document. Sound-alike and misspelled words, as well as other professor of fine art errors may be contained in the documentation. 20 minutes was spent on this encounter. This included face to face and non face to face care including preparing for the visit, reviewing the history, performing the exam, counseling and providing education to the patient, family, or caregiver, ordering medications/test/ procedures if indicated as documented, communicating with other healthcare providers, documenting information in the medical record, interpreting / sharing this information when indicated as documented, and care coordination. Macra 2020: reviewed today: medications and allergies reviewed and reconciled. BMI 24.0. blood pressure 123/59. He was advised to follow-up with his primary care physician on his systolic blood pressure which is over 120. He was advised on proper activity levels and diet to optimize wound healing and for overall health. Tobacco status: It is noted he was never smoker. Living will: Yes
== END 2021-01-12 23:59 ==
LOC: WC 09:15
PROVIDERS: PCP Family Medicine; Referring Provider Family Medicine; Visit Provider Podiatrist
DX: E11.621 Type 2 diabetes mellitus with foot ulcer (principal); E11.40 Type 2 diabetes mellitus with diabetic neuropathy, unspecified; L97.522 Non-pressure chronic ulcer of other part of left foot with fat layer exposed; E11.51 Type 2 diabetes mellitus with diabetic peripheral angiopathy without gangrene; M20.42 Other hammer toe(s) (acquired), left foot; M20.41 Other hammer toe(s) (acquired), right foot; M21.622 Bunionette of left foot; L97.524 Non-pressure chronic ulcer of other part of left foot with necrosis of bone
CPT/HCPCS: 11042; 11044; 36415; 73630; 80053; 85025; 85652; 86140; 87015; 87070; 87075; 87077; 87101; 87116; 87176; 87186; 87205; 87206; 88304; 88305; 88311; 97597

== ENCOUNTER 2021-01-20 07:05 | Day surgery (SDC) | payer MEDICARE, SELFPAY ==
[2021-01-05 10:33] VITALS: BMI 22.3
[2021-01-19 09:22] VITALS: BMI 22.3
[2021-01-19 10:13] VITALS: BMI 23.5
[2021-01-20 07:17] LABS: Hemoglobin 12.2 g/dL (13.0-16.5); Mean Corp Hgb Conc 32.1 g/dL (32-36); Mean Corpuscular Volume 90.5 fL (80-94); Mean Platelet Vol. 10.2 fl (6.2-12.0); Platelet Count 359 K/mm3 (150-450); RBC Distribution Width CV 12.8 % (11.6-14.6); RBC Distribution Width SD 41.7 fl (35.1-43.9); White Blood Count 11.8 K/mm3 (4.4-11.0)
[2021-01-20 07:30] LABS: Albumin, Serum 3.1 g/dL (3.2-5.0); BUN 36 mg/dL (7-18); BUN/Creat Ratio 13.5 RATIO (10-20); Chloride 106 mmol/L (98-107); Creatinine, Serum 2.67 mg/dL (0.70-1.30); EST Glomerular Filtration Rate 25 mL/min (>60); Est Glom Filt Rate - Afr Amer 30 mL/min (>60); Glucose 82 mg/dL (74-106); Phosphorus 3.1 mg/dL (2.5-4.9); Potassium 3.8 mmol/L (3.5-5.1); Sodium Level 136 mmol/L (136-145)
--- NOTE | 2021-01-20 10:47 | PCM.OPRPT ---
Problem List (1) Peripheral vascular disease Status: Chronic Report of Operation Date of Procedure: 01/20/21 Pre-Operative Diagnosis: Nonhealing wound left leg Post-Operative Diagnosis: The same Surgery/Procedure Performed:: 1. Ultrasound-guided cyst retrograde right common femoral artery. 2. Left lower extremity angiogram with catheter placed into the distal popliteal artery. 3. Balloon angioplasty the entire SFA through the mid popliteal with a 4 x 200 balloon. 4. Closure with Star close Type of Anesthesia:: Sedation,Conscious Description of Procedure: Patient brought to the [facility]. Underwent appropriate timeout consent. Underwent sedation. Prepped and draped in a sterile fashion. We did ultrasound-guided access retrograde right common femoral artery. Put a Glidewire up and then a 5 Dutch sheath. A 5000 units of heparin. Got up and over the bifurcation did an angiogram from the left external iliac artery. This showed the common femoral artery and the profunda are widely patent. Femoral artery had some areas of the a moderate to severe stenosis. Put the catheter and wire down through here image distally and it showed the popliteal artery with an occlusion from the proximal segment through to the distal segment. Collateral flow was filling around the knee joint down. A look like below this flow end of 3 tibials. Secondary to his elevated creatinine we did not image all the way down into the ankle. We brought in a longer 6 Dutch sheath. Using different wires and catheters we eventually got through the occlusion and confirm that we are into the [place] vessel. We imaged from there and it showed flow through all distal tibial arteries via the peroneal and posterior tibial as we were injecting through the tibioperoneal trunk. We replaced the wire and then ballooned but could not get it to get all the way down. We inflated from the popliteal through the femoral for over 2 minutes. We pulled this back and then in flatus throughout the entire proximal femoral for over 3 minutes. We then got the balloon further down through to the mid popliteal artery inflated at there for over 3 minutes. Completion proximally is much improved with better flow. We imaged distally and there is good flow all the way through this segment filling all 3 tibials. We then put in 035 wire in and removed out the sheath and deployed a Star close with good hemostasis. Patient brought to recovery stable condition. Sedation: This 75-year-old gentleman underwent moderate sedation given by Dr. Emerson Bowens. He was monitored EKG blood pressure and pulse ox for over the 30 minutes of the procedure. See the EMR for the complete record. Fluoroscopy: Contrast dye: 25 cc
== END 2021-01-20 14:55 | disposition home or self-care (01) ==
LOC: CLSP 07:06
PROVIDERS: PCP Family Medicine; Referring Provider Surgery Vascular Surgery; Visit Provider Surgery Vascular Surgery
DX: E11.621 Type 2 diabetes mellitus with foot ulcer (principal); E11.51 Type 2 diabetes mellitus with diabetic peripheral angiopathy without gangrene; L97.509 Non-pressure chronic ulcer of other part of unspecified foot with unspecified severity; I10 Essential (primary) hypertension; I27.20 Pulmonary hypertension, unspecified; E78.00 Pure hypercholesterolemia, unspecified; F41.9 Anxiety disorder, unspecified; Z79.82 Long term (current) use of aspirin; Z79.899 Other long term (current) drug therapy; Z79.4 Long term (current) use of insulin; Z95.1 Presence of aortocoronary bypass graft
CPT/HCPCS: 36245; 36415; 37224; 75710; 76937; 80069; 85027; 99152; 99153; C1769; J7040; Q9967; C1725; C1760; C1887; C1894

== ENCOUNTER → 2021-01-27 09:34 | Outpatient (CLI) | payer MEDICARE, SELFPAY ==
[2021-01-27 06:18] VITALS: BMI 23.3
[2021-01-27 12:23] LABS: Absolute Lymphocyte Count 1.57 X10^3/uL (0.83-4.51); Absolute Neutrophil Count 4.3 X10^3/uL (2.0-7.7); Basophil# 0.04 X10^3/uL; Basophil% 0.6 % (0-1); Eosinophil# 0.04 X10^3/uL; Eosinophils% 0.6 % (0-5); Hematocrit 38.9 % (40-54); Hemoglobin 12.3 g/dL (13.0-16.5); Lymphocyte # 1.57 X10^3/ul (0.83-4.51); Lymphocyte % 21.8 % (19-41); Mean Corp Hgb Conc 31.6 g/dL (32-36); Mean Corpuscular Hgb 28.8 pg (27.0-32.0); Mean Corpuscular Volume 91.1 fL (80-94); Mean Platelet Vol. 11.2 fl (6.2-12.0); Monocyte% 16.7 % (0-10); NRBC Flagged by Analyzer 0 % (0-5); Neutrophil # 4.31 X10^3/uL (2.7-7.7); Neutrophil % 59.9 % (47-70); Platelet Count 340 K/mm3 (150-450); RBC Distribution Width CV 13.2 % (11.6-14.6); RBC Distribution Width SD 43.3 fl (35.1-43.9); Red Blood Count 4.27 M/mm3 (4.6-6.2); White Blood Count 7.2 K/mm3 (4.4-11.0)
[2021-01-27 12:24] LABS: Erythrocyte Sedimentation Rate 38 mm/hr (0-20)
[2021-01-27 12:30] LABS: ALB/GLOB Ratio 0.7 RATIO (0.9-2.4); AST(SGOT) 22 U/L (15-37); Alanine Aminotransfer ALT/SGPT 27 U/L (16-61); Albumin, Serum 3.3 g/dL (3.2-5.0); Alkaline Phosphatase 111 U/L (45-117); Anion Gap 6 (5-15); BUN 31 mg/dL (7-18); Calcium,Total 9.2 mg/dL (8.5-10.1); Chloride 105 mmol/L (98-107); Creatinine, Serum 2.59 mg/dL (0.70-1.30); EST Glomerular Filtration Rate 26 mL/min (>60); Est Glom Filt Rate - Afr Amer 31 mL/min (>60); Globulin 4.5 g/dL (2.2-4.2); Glucose 74 mg/dL (74-106); Potassium 4.1 mmol/L (3.5-5.1); Protein, Total 7.8 g/dL (6.4-8.2); Sodium Level 137 mmol/L (136-145)
== END ==
PROVIDERS: PCP Family Medicine; Referring Provider Podiatrist; Visit Provider Podiatrist
DX: M86.9 Osteomyelitis, unspecified (principal); L98.499 Non-pressure chronic ulcer of skin of other sites with unspecified severity
CPT/HCPCS: 36415; 80053; 85025; 85652; 86140

== ENCOUNTER 2021-02-02 14:15 | Outpatient (RCR) | payer MEDICARE, SELFPAY ==
[2021-01-13 00:38] VITALS: BP 123/59; PULSE 74; RESP 18; TEMP 35.9
[2021-01-19 09:22] VITALS: BP 140/61; PULSE 85; RESP 18; TEMP 37.1; BMI 22.3
--- NOTE | 2021-01-19 10:02 | PN.PCM_ITS ---
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 He got his noninvasive vascular studies completed and is scheduled for an interventional procedure tomorrow. It is noted he has a low ejection fraction and also small vessel disease is suspected. Dr. Bowens's note was reviewed. He has been changing the dressing as advised with Dakins solution. He wears offloading surgical shoe. He is with his today. He is on augmentin for cellulitis and osteomyelitis. He is scheduled to see infectious disease as soon as they could make arrangements. His is unable to drive and not able to do a phone visit. He denies odor or increased redness. Progress of Wound: Worse status with deeper tissue exposed; stabilized compared to last week - Physical Exam Vital Signs Temp Pulse Resp BP 98.7 F 85 18 140/61 H 01/19/21 09:22 01/19/21 09:22 01/19/21 09:22 01/19/21 09:22 General: Alert, Cooperative, No apparent distress, Confused - intermittent; corona kuhn on for communication about half of the time HEENT: Atraumatic Extremities: No edema, Diminished Peripheral Pulses - non palpable pulses, left, - - delayed capillary fill time to fifth toe, left Skin: Ulcer/ Wound - lateral forefoot ulcer with exposed fifth proximal phalanx and fifth metatarsal head with discoloration consistent with osteomyelitis. rubour noted. erythema less intense without streaking. no odor or purulence. atrophic and hairless skin Wound Measurements and Assessment WC - Nurse 1 - General Ulcer Measurement Start: 01/19/21 09:20 Freq: Status: Active Protocol: Activity Type Activity Date Activity User E-Sign Co-Sign Detail Recorded Client Recorded Date Recorded By Document 01/19/21 09:22 DL [id number] 01/19/21 09:26 DL 01/19/21 09:22 Wound Center Nurse 1 [Ulcer Assessment] #1- L LATERAL FOOT -Current Size (cm) - Length 1.8 -Current Size (cm) - Width 1.8 -Current Size (cm) - Depth 0.2 -Total Square Cm 3.24 -Photo Taken No -Exudate Amt Medium -Exudate Type Serosanguineous -Wound Margin Distinct, Outline Attached -Granulation Quality [place] -Necrosis Amt Large (67-100%) -Necrotic Tissue Type Adherent Slough -Structure Exposed Bone -Texture (Kasia-wound Skin Appearance) Localized Edema ,Scarring -Moisture (Kasia-wound Skin Appearance Dry/Scaly ) -Color (Kasia-wound Skin Appearance) Erythema -Temperature (Kasia-wound Skin No Abnormality Appearance) (Pt Warm) -Tenderness on Palpation (Kasia-wound No Skin Appearance) -Ulcer Cleansing Rinsed/ Irrigated with Saline -Foul Odor after Cleansing No -Anesthetic Used 4% Lidocaine Solution,5% Lidocaine Gel WC - Nurse 2 - General Ulcer CM Notes Start: 01/19/21 09:20 Freq: Status: Active Protocol: Activity Type Activity Date Activity User E-Sign Co-Sign Detail Recorded Client Recorded Date Recorded By Document 01/19/21 09:43 MICHA [id number] 01/19/21 09:44 MICHA 01/19/21 09:43 Wound Center Nurse 2 [Procedure/Treatment] -Correct Patient No -Correct Side, Site, Position No -Correct Procedure No -Procedure Performed No -Wound/Ulcer Outcome Not Healed [See Physician Procedure note for Specifics] Pain Scale: 0-10 Numeric [Pain] -Is Patient Pain Free? Yes WC - Nurse 3 - General Ulcer D/C NN Start: 01/19/21 09:20 Freq: Status: Active Protocol: Activity Type Activity Date Activity User E-Sign Co-Sign Detail Recorded Client Recorded Date Recorded By Document 01/19/21 09:45 MICHA [id number] 01/19/21 09:52 MICHA 01/19/21 09:45 Wound Care Nurse 3 [Wound Dressing] #1- L LATERAL FOOT -Ulcer Cleansing Rinsed/ Irrigated with Saline -Foul Odor after Cleansing No -Other Dressing BETADINE -Primary Dressing Covered/Secured Dry Gauze, with Secured with Tape Pain Scale: 0-10 Numeric [Pain] -Is Patient Pain Free? Yes - Visit Discharge [Visit Discharge Information] -Discharge Condition Stable -Ambulatory Status Ambulatory -Transportation Private Auto -Accompanied by Maria Ines -Medication Reconcilliation completed Yes & provided to patient/care provider -Clinical Summary of Care Provided Yes Musculoskeletal: No Tenderness to Palpation of Joints or Extremities, Muscle Wasting, - Neurological: Sensory exam intact to light touch and pain, - - altered sensation consistent with neuropathy Psych/Mental Status: Normal Affect, Appropriate Debridement Note Post-Debridement Measurements/Treatment - Nurse 2 - General Ulcer CM Notes Start: 01/19/21 09:20 Freq: Status: Active Protocol: Activity Type Activity Date Activity User E-Sign Co-Sign Detail Recorded Client Recorded Date Recorded By Document 01/19/21 09:43 MICHA [id number] 01/19/21 09:44 MICHA 01/19/21 09:43 Wound Center Nurse 2 #1- L LATERAL FOOT -Correct Patient No -Correct Side, Site, Position No -Correct Procedure No -Procedure Performed No -Wound/Ulcer Outcome Not Healed Pain Scale: 0-10 Numeric Is Patient Pain Free? Yes - Nurse 3 - General Ulcer D/C NN Start: 01/19/21 09:20 Freq: Status: Active Protocol: Activity Type Activity Date Activity User E-Sign Co-Sign Detail Recorded Client Recorded Date Recorded By Document 01/19/21 09:45 MICHA [id number] 01/19/21 09:52 MICHA 01/19/21 09:45 Wound Care Nurse 3 #1- L LATERAL FOOT -Ulcer Cleansing Rinsed/ Irrigated with Saline -Foul Odor after Cleansing No -Other Dressing BETADINE -Primary Dressing Covered/Secured with Dry Gauze, Secured with Tape Pain Scale: 0-10 Numeric Is Patient Pain Free? Yes - Visit Discharge Discharge Condition Stable Ambulatory Status Ambulatory Transportation Private Auto Accompanied by Maria Ines Medication Reconcilliation completed & Yes provided to patient/care provider Clinical Summary of Care Provided Yes Wound debrided: lateral forefoot Laterality: Left No debridement was completed today Assessment/Plan Active Problems (Last Reviewed 10/31/19 @ 10:[address] 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 Osteomyelitis. Diabetes with suspected neuropathy (A1C 11%). Peripheral vascular disease. Low cardiac output (EF 15 %). Hammertoes with forefoot deformities bilateral. Malnutrition suspected Plan: I reviewed and discussed his plan. Debridement was not performed today. This is consistent with clinical diagnosis of osteomyelitis due to the worley discoloration softness and necrotic tissue. He was advised to change his dressing daily with Dakin wet-to-dry daily to continue. To change his daily wash with antibacterial soap and water. I am concerned about his exposed bone and this is classified as a [place] grade 3. Work-up for osteomyelitis ([place] grade 3). Culture growth is reviewed (staph aginoginosus, staph caprae, and enterococcus faecalis) and he was advised to continue Augmentin. His previous bone biopsy did not confirm osteomyelitis however there is now significant clinical change and this is being treated at this time. Augmentin refill sent to pharmacy of choice electronically. To monitor for side effects or diarrhea which is not noted so far. Previous labs were reviewed. He had a white blood cell count of 12.1, ESR 55, C-reactive protein is 64.2. His prior hemoglobin A1c from June was 11.8%. A foot x-ray was also reviewed from the foot and ankle center this past week with continued diminished bone density to the head of the fifth metatarsal consistent with osteomyelitis and a rare fraction. There is no soft tissue emphysema or foreign body or other william osseous destruction. I recommended infectious disease referral. I like to see him treated for to inspection and stabilized while he undergoes vascular surgery intervention and then foot specific surgery including a fifth ray resection in the following weeks. The patient understands and is amenable. It is noted he rescheduled his infectious disease consult for approximately 1 month later which is not recommended however his is not able to drive anywhere else or do a phone visit. I advised him to see if he can find a ride to go to [place] or consider a phone consultation. Surgical informed consent was performed today. The indications, benefits, risks, complications, anticipated procedure and management were reviewed with the patient ans his . Consents were signed for left foot debridement of non viable soft tissue and bone including a fifth ray resection to be open versus closed. I anticipate MAC/local anesthesia with post operative observation admission due to his comorobidities. No guarantees were made. He understands risks and complications include but are not limited to the following: pain, swelling, scarring, infection, delayed or non healing, transfer lesions, contractions, blood clots, allergic reactions, loss of limb, function or life. I answered his questions. He understands clearance for the surgery with pcp and possibly also cardiology will be needed. His prior labs and ekg/echo were reviewed. I recommend offloading bilateral subfifth metatarsal head areas with surgical shoes. To try to keep mostly weight on the heel. I previously fabricated dual density offloading liners today to take additional pressure off of the ulcer site. I recommend nutritional supplementation optimize healing including Neri nutritional supplement pack daily. Noninvasive arterial studies including segmental pressures, MEHREEN, systolic toe pressures were ordered to screen for any vascular impairment to the lower extremity. He has apparent calcification and monophasic PT and DP waveforms bilateral. I recommend a referral to vascular specialist, Dr. Bowens. He was seen by Dr. Bowens and his note was reviewed. An arterial Doppler was ordered to see if additional intervention is appropriate and is scheduled tomorrow. His healing potential is limited without adequate blood flow. It is also noted that his A1c is 11.8% which also does not have a good healing outcome. I advised him on continued improved diabetic control. The etiology of the ulcer development and component needed for wound healing were reviewed in detail again today. I recommend that he return to the wound healing center 1 weeks or call sooner if he has any questions or concerns. I answered all his questions. . Note: [employer] speech recognition retail sales professional software was used to create portions of this document. Sound-alike and misspelled words, as well as other retail sales professional errors may be contained in the documentation. . The medical decision making level is moderate. There is noted moderate risk of morbidity after considering this treatment plan and diagnostic data. Considerations were given to prescription management, decisions regarding surgical options, or social determinants of health. The problems addressed require a moderate decision making level which includes one or more chronic illnesses (w/ exacerbation, progression, or side effects), two or more stable chronic illnesses, one undiagnosed new problem w/ uncertain prognosis, one acute illness with systemic symptoms, or one acute complicated injury. ----. MACRA 2020: meds/allergies reconciled and reviewed. he is a tobacco non user. denies fall this past year. Blood pressure 140/61 which is elevated. to follow up w/ pcp and diet and activity were reviewed for wound healing and health.
[2021-01-26 09:55] VITALS: BP 122/60; PULSE 73; RESP 20; TEMP 36.4; BMI 22.3
--- NOTE | 2021-01-26 12:04 | PN.PCM_ITS ---
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 Code(s): L97.524 - Non-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 (2) Diabetes mellitus with neuropathy Status: Chronic Code(s): E11.40 - Type 2 diabetes mellitus with diabetic neuropathy, unspecified (3) Peripheral vascular disease Status: Chronic Code(s): I73.9 - Peripheral vascular disease, unspecified (4) Malnutrition Status: Chronic Code(s): E46 - Unspecified protein-calorie malnutrition (5) Osteomyelitis Status: Chronic Code(s): M86.9 - Osteomyelitis, unspecified Type of Wound Date of Service: 01/26/21 Chief Complaint: Left foot ulcer History of Wound: This 75-year-old male was seen for left foot ulcer return to the wound healing center today. He had lower extremity vascular successful intervention performed last with Dr. Bowens. He relates he has improved warmth and sensation to his left foot. It is noted he has a low ejection fraction and also small vessel disease is suspected. He has been changing the dressing as advised with Dakins solution. He wears offloading surgical shoe. He is with his today. He is on augmentin for cellulitis and osteomyelitis. He is scheduled to see infectious disease as soon as they could make arrangements. His is unable to drive and not able to do a phone visit. He denies odor or increased redness. Progress of Wound: Stable still with bone exposed - Physical Exam Vital Signs Temp Pulse Resp BP 97.5 F L 73 20 H 122/60 H 01/26/21 09:55 01/26/21 09:55 01/26/21 09:55 01/26/21 09:55 General: Alert, Oriented x3, Cooperative, No apparent distress HEENT: Atraumatic Extremities: No cyanosis, No edema, Capillary Refill Less than 3 Seconds, No Calf Tenderness, Diminished Peripheral Pulses Skin: Ulcer/ Wound - No purulence, erythema, streaking, odor, infection. Adjacent skin atrophic. Minimal necrosis and devitalized bone is still noted with dusky fifth toe. This is consistent with osteomyelitis and peripheral vascular disease Wound Measurements and Assessment WC - Nurse 1 - General Ulcer Measurement Start: 01/19/21 09:20 Freq: Status: Active Protocol: Activity Type Activity Date Activity User E-Sign Co-Sign Detail Recorded Client Recorded Date Recorded By Document 01/26/21 09:55 DL [id number] 01/26/21 10:07 DL 01/26/21 09:55 Wound Center Nurse 1 [Ulcer Assessment] #2 L 5th toe -Current Size (cm) - Length 1.5 -Current Size (cm) - Width 0.4 -Current Size (cm) - Depth 0.1 -Total Square Cm 0.60 -Photo Taken No -Exudate Amt Small -Exudate Type Serosanguineous -Wound Margin Indistinct, Non -Visible -Granulation Amt Medium (34-66%) -Granulation Quality Red -Necrosis Amt Medium (34-66%) -Necrotic Tissue Type Adherent Slough -Structure Exposed N/A -Texture (Kasia-wound Skin Appearance) Localized Edema -Moisture (Kasia-wound Skin Appearance Weeping ) -Color (Kasia-wound Skin Appearance) Erythema -Temperature (Kasia-wound Skin No Abnormality Appearance) (Pt Warm) -Tenderness on Palpation (Kasia-wound No Skin Appearance) -Ulcer Cleansing Rinsed/ Irrigated with Saline -Foul Odor after Cleansing No -Anesthetic Used 4% Lidocaine Solution #1- L LATERAL FOOT -Current Size (cm) - Length 1.8 -Current Size (cm) - Width 1.8 -Current Size (cm) - Depth 0.1 -Total Square Cm 3.24 -Photo Taken No -Exudate Amt Small -Exudate Type Serosanguineous -Wound Margin Distinct, Outline Attached -Granulation Amt None Present (0 %) -Necrosis Amt Large (67-100%) -Necrotic Tissue Type Adherent Slough -Structure Exposed Bone -Texture (Kasia-wound Skin Appearance) Localized Edema ,Scarring -Moisture (Kasia-wound Skin Appearance No Abnormality ) -Color (Kasia-wound Skin Appearance) Erythema -Temperature (Kasia-wound Skin Hot Appearance) -Tenderness on Palpation (Kasia-wound Yes Skin Appearance) -Ulcer Cleansing Rinsed/ Irrigated with Saline -Foul Odor after Cleansing No -Anesthetic Used 4% Lidocaine Solution WC - Nurse 2 - General Ulcer CM Notes Start: 01/19/21 09:20 Freq: Status: Active Protocol: Activity Type Activity Date Activity User E-Sign Co-Sign Detail Recorded Client Recorded Date Recorded By Document 01/26/21 10:20 MICHA [id number] 01/26/21 10:22 01/26/21 10:20 Wound Center Nurse 2 [Procedure/Treatment] #2 L 5th toe -Correct Patient No -Correct Side, Site, Position No -Correct Procedure No -Procedure Performed No -Wound/Ulcer Outcome Not Healed #1- L LATERAL FOOT -Correct Patient No -Correct Side, Site, Position No -Correct Procedure No -Procedure Performed No -Wound/Ulcer Outcome Not Healed [See Physician Procedure note for Specifics] Pain Scale: 0-10 Numeric [Pain] -Is Patient Pain Free? Yes - Nurse 3 - General Ulcer D/C NN Start: 01/19/21 09:20 Freq: Status: Active Protocol: Activity Type Activity Date Activity User E-Sign Co-Sign Detail Recorded Client Recorded Date Recorded By Document 01/26/21 10:23 [id number] 01/26/21 10:23 01/26/21 10:23 Wound Care Nurse 3 [Wound Dressing] #1- L LATERAL FOOT -Ulcer Cleansing Rinsed/ Irrigated with Saline -Foul Odor after Cleansing No -Other Dressing BETADINE -Primary Dressing Covered/Secured Dry Gauze, with Secured with Tape Pain Scale: 0-10 Numeric [Pain] -Is Patient Pain Free? Yes - Visit Discharge [Visit Discharge Information] -Discharge Condition Stable -Ambulatory Status Ambulatory -Transportation Private Auto -Medication Reconcilliation completed Yes & provided to patient/care provider -Clinical Summary of Care Provided Yes Musculoskeletal: No Tenderness to Palpation of Joints or Extremities, Muscle Wasting Neurological: - - Altered of epicritic sensation to light touch is consistent with neuropathy Psych/Mental Status: Normal Affect, Appropriate Debridement Note Post-Debridement Measurements/Treatment - Nurse 2 - General Ulcer CM Notes Start: 01/19/21 09:20 Freq: Status: Active Protocol: Activity Type Activity Date Activity User E-Sign Co-Sign Detail Recorded Client Recorded Date Recorded By Document 01/19/21 09:43 [id number] 01/19/21 09:44 Document 01/26/21 10:20 [id number] 01/26/21 10:22 01/19/21 01/26/21 09:43 10:20 Wound Center Nurse 2 #2 L 5th toe -Correct Patient No -Correct Side, Site, Position No -Correct Procedure No -Procedure Performed No -Wound/Ulcer Outcome Not Healed #1- L LATERAL FOOT -Correct Patient No No -Correct Side, Site, Position No No -Correct Procedure No No -Procedure Performed No No -Wound/Ulcer Outcome Not Healed Not Healed Pain Scale: 0-10 Numeric Is Patient Pain Free? Yes Yes - Nurse 3 - General Ulcer D/C NN Start: 01/19/21 09:20 Freq: Status: Active Protocol: Activity Type Activity Date Activity User E-Sign Co-Sign Detail Recorded Client Recorded Date Recorded By Document 01/19/21 09:45 [id number] 01/19/21 09:52 Document 01/26/21 10:23 [id number] 01/26/21 10:23 01/19/21 01/26/21 09:45 10:23 Wound Care Nurse 3 #1- L LATERAL FOOT -Ulcer Cleansing Rinsed/ Rinsed/ Irrigated with Irrigated with Saline Saline -Foul Odor after Cleansing No No -Other Dressing BETADINE BETADINE -Primary Dressing Covered/Secured with Dry Gauze, Dry Gauze, Secured with Secured with Tape Tape Pain Scale: 0-10 Numeric Is Patient Pain Free? 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 Osteomyelitis. Diabetes with suspected neuropathy (A1C 11%). Peripheral vascular disease now with recent intervention. Low cardiac output (EF 15 %). Hammertoes with forefoot deformities bilateral. Malnutrition suspected Plan: I reviewed and discussed his plan. Debridement was not performed today. This is consistent with clinical diagnosis of osteomyelitis due to the worley discoloration softness and necrotic tissue. He was advised to change his dressing daily with Dakin wet-to-dry daily to continue. To change his daily wash with antibacterial soap and water. I am concerned about his exposed bone and this is classified as a [place] grade 3. Work-up for osteomyelitis ([place] grade 3). Culture growth is reviewed (staph aginoginosus, staph caprae, and enterococcus faecalis) and he was advised to continue Augmentin. His previous bone biopsy did not confirm osteomyelitis however there is now significant clinical change and this is being treated at this time. Augmentin refill sent to pharmacy of choice electronically. To monitor for side effects or diarrhea which is not noted so far. Previous labs were reviewed. He had a white blood cell count of 12.1, ESR 55, C-reactive protein is 64.2. His prior hemoglobin A1c from June was 11.8%. A foot x-ray was also reviewed from the foot and ankle center this past week with continued diminished bone density to the head of the fifth metatarsal consistent with osteomyelitis and a rare fraction. There is no soft tissue emphysema or foreign body or other william osseous destruction. I recommended infectious disease referral. I like to see him treated for to inspection and stabilized while he undergoes vascular surgery intervention and then foot specific surgery including a fifth ray resection in the following weeks. The patient understands and is amenable. It is noted he rescheduled his infectious disease consult for approximately 1 month later which is not recommended however his is not able to drive anywhere else or do a phone visit. I advised him to see if he can find a ride to go to [place] or do a phone consultation. Surgical informed consent was performed last week for fifth ray resection. The indications, benefits, risks, complications, anticipated procedure and management were reviewed with the patient ans his . I anticipate MAC/local anesthesia with post operative observation admission due to his comorobidities. No guarantees were made. I answered his questions. He understands clearance for the surgery with pcp and possibly also cardiology will be needed. His prior labs and ekg/echo were reviewed. It is noted he saw cardiology yesterday and his current EF is 15%. He is considered stable from a cardiac standpoint and was advised to proceed forward with the foot surgery with known comorbidity risks. Is also recommended he has monitor closely in the postoperative setting for fluid management to avoid going into congestive heart failure. He is tentatively scheduled for surgery next Sunday at [facility]. I recommend offloading bilateral subfifth metatarsal head areas with surgical shoes. To try to keep mostly weight on the heel. I previously fabricated dual density offloading liners today to take additional pressure off of the ulcer site. I recommend nutritional supplementation optimize healing including Neri nutritional supplement pack daily. Noninvasive arterial studies including segmental pressures, MEHREEN, systolic toe pressures were ordered to screen for any vascular impairment to the lower extremity. He has apparent calcification and monophasic PT and DP waveforms bilateral. His recent intervention with Dr. Bowens last is noted and appears to be successful. This is an ideal time to perform a staged foot surgery as previously detailed. His healing potential is limited without adequate blood flow. It is also noted that his A1c is 11.8% which also does not have a good healing outcome. I advised him on continued improved diabetic control. The etiology of the ulcer development and component needed for wound healing were reviewed in detail again today. I recommend that he return to the wound healing center 1 weeks or call sooner if he has any questions or concerns. I answered all his questions. . Note: [employer] speech recognition lightning rod erector software was used to create portions of this document. Sound-alike and misspelled words, as well as other lightning rod erector errors may be contained in the documentation. . The medical decision making level is moderate. There is noted moderate risk of morbidity after considering this treatment plan and diagnostic data. Considerations were given to prescription management, decisions regarding surgical options, or social determinants of health. The problems addressed require a moderate decision making level which includes one or more chronic illnesses (w/ exacerbation, progression, or side effects), two or more stable chronic illnesses, one undiagnosed new problem w/ uncertain prognosis, one acute illness with systemic symptoms, or one acute complicated injury. ----. MACRA 2020: meds/allergies reconciled and reviewed. he is a tobacco non user. denies fall this past year. Blood pressure 122/60 which is slightly elevated. to follow up w/ pcp and diet and activity were reviewed for wound healing and health.
[2021-02-02 14:17] VITALS: BP 136/82; PULSE 71; TEMP 36.8; BMI 22.3
--- NOTE | 2021-02-02 14:51 | PCM.PROGNOTE ---
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
--- NOTE | 2021-02-02 17:09 | PCM.WC.PN ---
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 Code(s): L97.524 - Non-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 (2) Diabetes mellitus with neuropathy Status: Chronic Code(s): E11.40 - Type 2 diabetes mellitus with diabetic neuropathy, unspecified (3) Peripheral vascular disease Status: Chronic Code(s): I73.9 - Peripheral vascular disease, unspecified (4) Malnutrition Status: Chronic Code(s): E46 - Unspecified protein-calorie malnutrition (5) Osteomyelitis Status: Chronic Code(s): M86.9 - Osteomyelitis, unspecified Type of Wound Date of Service: 02/02/21 Chief Complaint: Left foot ulcer History of Wound: This 75-year-old male was seen for left foot ulcer return to the wound healing center today. He had recent lower extremity vascular successful intervention performed with Dr. Bowens. He relates he has improved warmth and sensation to his left foot. It is noted he has a low ejection fraction and also small vessel disease is suspected. He has been changing the dressing as advised with Dakins solution. He wears offloading surgical shoe. He is with his today. He is on augmentin for cellulitis and osteomyelitis. He is scheduled to see infectious disease as soon as they could make arrangements which is this afternoon. His is unable to drive and was not able to do a prior phone visit. He denies odor or increased redness. He is ready to proceed with surgical intervention this Sunday for a ray resection. Progress of Wound: Stable still with bone exposed - Physical Exam Vital Signs Temp Pulse Resp BP 98.2 F 71 20 H 136/82 H 02/02/21 14:17 02/02/21 14:17 01/26/21 09:55 02/02/21 14:17 General: Alert, Oriented x3, Cooperative, No apparent distress HEENT: Atraumatic Extremities: No cyanosis, Capillary Refill Less than 3 Seconds, No Calf Tenderness, Diminished Peripheral Pulses, Edema Skin: Ulcer/ Wound - No purulence, erythema, streaking, odor. There is exposed bone with some devitalized fibrous soft discolored bone and devitalized tissue consistent with clinical osteomyelitis. His adjacent skin is with lack of capillary refill time, atrophic, hairless. This is tender to touch Wound Measurements and Assessment WC - Nurse 1 - General Ulcer Measurement Start: 01/19/21 09:20 Freq: Status: Active Protocol: Activity Type Activity Date Activity User E-Sign Co-Sign Detail Recorded Client Recorded Date Recorded By Document 02/02/21 14:17 KR [id number] 02/02/21 14:22 FREDDIE 02/02/21 14:17 Wound Center Nurse 1 [Ulcer Assessment] #1- L LATERAL FOOT -Current Size (cm) - Length 2 -Current Size (cm) - Width 1.5 -Current Size (cm) - Depth 0.3 -Total Square Cm 3.0 -Exudate Amt Medium -Exudate Type Serosanguineous -Wound Margin Distinct, Outline Attached -Granulation Amt Small (1-33%) -Granulation Quality Green [place],Red -Necrosis Amt Medium (34-66%) -Necrotic Tissue Type Adherent Slough -Texture (Kasia-wound Skin Appearance) Assessed, Scarring -Moisture (Kasia-wound Skin Appearance No Abnormality, ) Assessed -Color (Kasia-wound Skin Appearance) No Abnormality, Assessed -Temperature (Kasia-wound Skin No Abnormality Appearance) (Pt Warm) -Tenderness on Palpation (Kasia-wound No Skin Appearance) -Ulcer Cleansing Rinsed/ Irrigated with Saline -Foul Odor after Cleansing No -Anesthetic Used 4% Lidocaine Solution WC - Nurse 2 - General Ulcer CM Notes Start: 01/19/21 09:20 Freq: Status: Active Protocol: Activity Type Activity Date Activity User E-Sign Co-Sign Detail Recorded Client Recorded Date Recorded By Document 02/02/21 14:42 MICHA [id number] 02/02/21 14:43 MICHA 02/02/21 14:42 Wound Center Nurse 2 [Procedure/Treatment] -Time 14:42 -Correct Patient Yes -Correct Side, Site, Position Yes -Correct Procedure Yes -Procedure Performed Yes -Type of Procedure Debridement -Clinical Debridement Subcutaneous -Tissue Removed Subcutaneous -Post Debridement (cm) - Length 2.1 -Post Debridement (cm) - Width 1.2 -Post Debridement (cm) - Depth 0.3 -Total Square (Post) (cm) 2.52 -Area of Debridement (cm) - Length 2.1 -Area of Debridement (cm) - Width 1.2 -Total Square (Area) (cm) 2.52 -Tunneling No -Undermining/Tunneling No -Circular Undermining No -Wound/Ulcer Outcome Not Healed -Ulcer Cleansing Rinsed/ Irrigated with Saline -Foul Odor after Cleansing No -Bioengineered Tissue No -Bleeding Controlled with Pressure -Offloading Yes -Type of Offloading Surgical Shoe -Treatment Response Procedure Tolerated Well -Debridement - Subq, 1st 20sq cm Yes [See Physician Procedure note for Specifics] Pain Scale: 0-10 Numeric [Pain] -Is Patient Pain Free? Yes - Nurse 3 - General Ulcer D/C NN Start: 01/19/21 09:20 Freq: Status: Active Protocol: Activity Type Activity Date Activity User E-Sign Co-Sign Detail Recorded Client Recorded Date Recorded By Document 02/02/21 16:20 RB [id number] 02/02/21 16:21 RB 02/02/21 16:20 Wound Care Nurse 3 [Wound Dressing] #1- L LATERAL FOOT -Other Dressing betadine to wound and wrapped with gauze -Primary Dressing Covered/Secured Dry Gauze & with Roll Gauze, Secured with Tape - Visit Discharge [Visit Discharge Information] -Discharge Condition Stable -Ambulatory Status Ambulatory -Transportation Private Auto -Medication Reconcilliation completed No & provided to patient/care provider -Clinical Summary of Care Provided Yes Musculoskeletal: Muscle Wasting, - - No adjacent ulcer bogginess, fluctuance, or crepitus Neurological: - - Altered sensation light touch Psych/Mental Status: Normal Affect, Appropriate Debridement Note Post-Debridement Measurements/Treatment - Nurse 2 - General Ulcer CM Notes Start: 01/19/21 09:20 Freq: Status: Active Protocol: Activity Type Activity Date Activity User E-Sign Co-Sign Detail Recorded Client Recorded Date Recorded By Document 01/19/21 09:43 [id number] 01/19/21 09:44 Document 01/26/21 10:20 [id number] 01/26/21 10:22 Document 02/02/21 14:42 [id number] 02/02/21 14:43 01/19/21 01/26/21 02/02/21 09:43 10:20 14:42 Wound Center Nurse 2 #2 L 5th toe -Correct Patient No -Correct Side, Site, Position No -Correct Procedure No -Procedure Performed No -Wound/Ulcer Outcome Not Healed #1- L LATERAL FOOT -Time 14:42 -Correct Patient No No Yes -Correct Side, Site, Position No No Yes -Correct Procedure No No Yes -Procedure Performed No No Yes -Type of Procedure Debridement -Clinical Debridement Subcutaneous -Tissue Removed Subcutaneous -Post Debridement (cm) - Length 2.1 -Post Debridement (cm) - Width 1.2 -Post Debridement (cm) - Depth 0.3 -Total Square (Post) (cm) 2.52 -Area of Debridement (cm) - Length 2.1 -Area of Debridement (cm) - Width 1.2 -Total Square (Area) (cm) 2.52 -Tunneling No -Undermining/Tunneling No -Circular Undermining No -Wound/Ulcer Outcome Not Healed Not Healed Not Healed -Ulcer Cleansing Rinsed/ Irrigated with Saline -Foul Odor after Cleansing No -Bioengineered Tissue No -Bleeding Controlled with Pressure -Offloading Yes -Type of Offloading Surgical Shoe -Treatment Response Procedure Tolerated Well -Debridement - Subq, 1st 20sq cm Yes Pain Scale: 0-10 Numeric Is Patient Pain Free? Yes Yes Yes - Nurse 3 - General Ulcer D/C NN Start: 01/19/21 09:20 Freq: Status: Active Protocol: Activity Type Activity Date Activity User E-Sign Co-Sign Detail Recorded Client Recorded Date Recorded By Document 01/19/21 09:45 [id number] 01/19/21 09:52 Document 01/26/21 10:23 [id number] 01/26/21 10:23 Document 02/02/21 16:20 RB [id number] 02/02/21 16:21 RB 01/19/21 01/26/21 02/02/21 09:45 10:23 16:20 Wound Care Nurse 3 #1- L LATERAL FOOT -Ulcer Cleansing Rinsed/ Rinsed/ Irrigated with Irrigated with Saline Saline -Foul Odor after Cleansing No No -Other Dressing BETADINE BETADINE betadine to wound and wrapped with gauze -Primary Dressing Covered/Secured with Dry Gauze, Dry Gauze, Dry Gauze & Secured with Secured with Roll Gauze, Tape Tape Secured with Tape Pain Scale: 0-10 Numeric Is Patient Pain Free? Yes Yes - Visit Discharge Discharge Condition Stable Stable Stable Ambulatory Status Ambulatory Ambulatory Ambulatory Transportation Private Auto Private Auto Private Auto Accompanied by Maria Ines Medication Reconcilliation completed & Yes Yes No provided to patient/care provider Clinical Summary of Care Provided Yes Yes Yes Wound debrided: lateral forefoot Laterality: Left Wound Grade/Stage: grade 3 Type of Debridement: Excisional debridement Anesthesia Used: 5% Lidocaine Gel Depth: in the subcutaneous layer Percentage of wound debrided: 100 Instrument Used: #15 blade Tissue Removed: fibrous, devitalized subcutaneous, biofilm, slough Severity: Fat Layer Exposed Amount of bleeding with debridement: Mild Bleeding Controlled with: Pressure Patient tolerated procedure well Assessment/Plan Active Problems (Last Reviewed 01/25/21 @ 13:41 by Traci GARCIA, PA) Diabetes mellitus with neuropathy (Chronic) Peripheral vascular disease (Chronic) Malnutrition (Chronic) Osteomyelitis (Chronic) 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 Osteomyelitis. Diabetes with suspected neuropathy (A1C 11%). Peripheral vascular disease now with recent intervention. Low cardiac output (EF 15 %). Hammertoes with forefoot deformities bilateral. Malnutrition suspected Plan: I reviewed and discussed his plan. Debridement was performed today as noted in the clinical nursing panel. This is consistent with clinical diagnosis of osteomyelitis due to the worley discoloration softness and necrotic tissue. He was advised to change his dressing daily with Dakin wet-to-dry daily. To change his daily wash with antibacterial soap and water. I am concerned about his exposed bone and this is classified as a [place] grade 3. Work-up for osteomyelitis ([place] grade 3). Culture growth is reviewed (staph aginoginosus, staph caprae, and enterococcus faecalis) and he was advised to continue Augmentin (renal dosing) unless recommended otherwise by infectious disease physician, Dr. Balderas. He has a consultation this afternoon and I will follow up on the updated recommendations. His previous bone biopsy did not confirm osteomyelitis however there is now significant clinical change and this is being treated at this time. Previous labs were reviewed. He had a white blood cell count of 12.1, ESR 55, C-reactive protein is 64.2. His prior hemoglobin A1c from June was 11.8%. A foot x-ray was also reviewed from the foot and ankle center recently with continued diminished bone density to the head of the fifth metatarsal consistent with osteomyelitis and a rarefraction. There is no soft tissue emphysema or foreign body or other william osseous destruction. He is scheduled for left foot fifth ray resection open versus closed this upcoming Sunday in the morning. Surgical consents were already obtained and I answered his questions. I also answered his 's questions. No guarantees were made. The patient understands and is amenable. The surgical indications, benefits, risks, complications, anticipated procedure and management were reviewed with the patient and his . I anticipate MAC/local anesthesia with post operative observation admission due to his comorobidities. His clearance and preoperative diagnostic data have also been reviewed as noted. It is also recommended is monitored closely in the postoperative setting for fluid management to avoid going into congestive heart failure. I recommend continued offloading subfifth metatarsal head areas with surgical shoes. To try to keep mostly weight on the heel. I previously fabricated dual density offloading liners today to take additional pressure off of the ulcer site. I recommend nutritional supplementation optimize healing including Neri nutritional supplement pack daily. It is also noted that his A1c is 11.8% which also does not have a good healing outcome. I advised him on continued improved diabetic control. . Note: [employer] speech recognition recycling tech software was used to create portions of this document. Sound-alike and misspelled words, as well as other recycling tech errors may be contained in the documentation. . The medical decision making level is moderate. There is noted moderate risk of morbidity after considering this treatment plan and diagnostic data. Considerations were given to prescription management, decisions regarding surgical options, or social determinants of health. The problems addressed require a moderate decision making level which includes one or more chronic illnesses (w/ exacerbation, progression, or side effects), two or more stable chronic illnesses, one undiagnosed new problem w/ uncertain prognosis, one acute illness with systemic symptoms, or one acute complicated injury. ----. MACRA 2020: meds/allergies reconciled and reviewed. he is a tobacco non user. denies fall this past year. Blood pressure 136/82 which is slightly elevated. to follow up w/ pcp and diet and activity were reviewed for wound healing and health.
--- NOTE | 2021-02-02 23:39 | PCM.HP.ID ---
Problem List (1) Osteomyelitis Status: Chronic Reason for Consult: osteo Consulted by: Dr. Mandujano History of Present Illness: The patient is a 75 year old M with DM neuropathy, PAD, follows at wound center for L lateral foot ulcer, worsened over past 4-5 months. Increasing redness, drainage, pain. No fever or chills. Cx with strep, CoNS, and enterococcus, now on augmentin for past 10 or so days, seeing improvement in redness. He and his have gotten covid shots. Plan is for OR in 2 days. No n/v/d. Full ROS performed and neg except as noted above. 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) Osteomyelitis (Chronic) 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 (Chronic) Ischemic cardiomyopathy (Chronic) Atherosclerosis of coronary artery bypass graft without angina pectoris (Chronic) CABG x 3: FULTON-distal D1, SVG-OM, SVG-Distal PDA 04/30/2014 Acute on chronic systolic (congestive) heart failure (Chronic) Right bundle branch block (RBBB) (Chronic) Secondary pulmonary arterial hypertension (Chronic) Essential (primary) hypertension (Chronic) HLD (hyperlipidemia) (Chronic) Allergies/Adverse Reactions: Allergies No Known Allergies Allergy (Verified 02/01/21 15:10) Home Medications: Ambulatory Orders Medication Instructions Recorded Aspirin [Aspirin, Baby] 81 mg PO DAILY@0800 09/29/14 pantoprazole 40 mg tablet,delayed 40 mg PO DAILY 30 Days #30 tablet 02/07/18 release Ferrous Sulfate [Iron] 325 mg PO DAILY@1200 03/19/19 carvedilol 12.5 mg tablet 12.5 mg PO BID #180 tablet 01/14/20 atorvastatin 80 mg tablet 80 mg PO QHS #90 tablet 04/14/20 escitalopram oxalate 10 mg tablet 10 mg PO DAILY 30 Days #60 tablet 09/29/20 furosemide 20 mg tablet 60 mg PO DAILY 90 Days #270 tablet 09/20/20 Insulin Glargine,Hum.rec.anlog 12.5 unit SQ BID 09/22/20 [Lantus Solostar] traZODone [Desyrel] 50 mg PO QHS PRN 09/22/20 hydralazine 25 mg tablet 25 mg PO TID #270 tablet 10/21/20 Gabapentin [Neurontin] 100 mg PO QHS 12/22/20 - Social History Tobacco Use: non-smoker Vital Signs Temp Pulse Resp BP 98.2 F 71 20 H 136/82 H 02/02/21 14:17 02/02/21 14:17 01/26/21 09:55 02/02/21 14:17 Weight: 60.781 kg Body Mass Index (BMI) 22.3 Finger Stick Blood Glucose 163 reviewed. - Other Studies Radiology: [] reviewed Other Studies: [] Route of nutrition/ use of supplements: [] Nutritional Intake: [] IV Site: [] Stovall Catheter: [] - Physical Exam General: Alert, Oriented x3, Cooperative, No apparent distress HEENT: Atraumatic, PERRLA, EOMI Neck: Supple, No Nodes Lungs: Clear to auscultation, Normal air movement Cardiovascular: Regular rate, Regular Rhythm Abdomen: Soft, Non Tender, Non-Distended Extremities: No edema Skin: Ulcer/ Wound - L lateral foot ulcer Musculoskeletal: No Tenderness to Palpation of Joints or Extremities Neurological: Cranial nerves II-XII grossly intact - Assessment/Plan Antibiotics: [] Assessment/Plan: [] L foot osteo with PAD and DM neuropathy - recent wound cx with strep, CoNS, and enterococcus. Agree with augmentin, on 10/16 tab 875mg bid given CKD. OR planned for 02/[address] Mandujano, will assist with abx. He and have completed covid vaccination. Will follow, thank you, d/w Dr. Mandujano.
== END 2021-02-11 23:59 ==
LOC: WC 14:15
PROVIDERS: PCP Family Medicine; Referring Provider Family Medicine; Visit Provider Podiatrist
DX: E11.621 Type 2 diabetes mellitus with foot ulcer (principal); E11.51 Type 2 diabetes mellitus with diabetic peripheral angiopathy without gangrene; E11.40 Type 2 diabetes mellitus with diabetic neuropathy, unspecified; L03.90 Cellulitis, unspecified; E11.69 Type 2 diabetes mellitus with other specified complication; M86.9 Osteomyelitis, unspecified; L97.522 Non-pressure chronic ulcer of other part of left foot with fat layer exposed; M20.42 Other hammer toe(s) (acquired), left foot; M20.41 Other hammer toe(s) (acquired), right foot; I11.0 Hypertensive heart disease with heart failure; L84 Corns and callosities; I50.22 Chronic systolic (congestive) heart failure; Z95.1 Presence of aortocoronary bypass graft; I27.21 Secondary pulmonary arterial hypertension; E78.5 Hyperlipidemia, unspecified; Z79.4 Long term (current) use of insulin; Z79.899 Other long term (current) drug therapy; Z79.82 Long term (current) use of aspirin
CPT/HCPCS: 11042; 99213; G0463

== ENCOUNTER 2021-02-04 07:16 | Inpatient (IN) | payer MEDICARE, SELFPAY ==
[2021-01-27 06:18] VITALS: BMI 23.3
[2021-02-04] VITALS (18 sets, daily range): BP systolic 139–179; BP diastolic 57–93; PULSE 56–82; RESP 16–18; TEMP 36.3–36.8; O2SAT 69–99; BMI 23.6
--- NOTE | 2021-02-04 | BON_PTH ---
PATIENT: TAM BUSTOS LOC: [facility] U#:[id number] AGE/SX: 75/M [place] [facility] [place]05[place]: Dr. Aleyda Mandujano DPM : 1945 BED: 1 DIS: 02/06/2021 SPEC #: [id number] RECD: 02/04/21 10:16 STATUS: TYRONE YOLANDA #: [id number] BRITTANY: 02/04/21 00:[address]: Aleyda Mandujano DEPT: SURGICAL PATHOLOGY RECD BY: Wilfredo Muñoz ENTERED: 02/04/21 10:17 SP TYPE: Bone OTHR DR: MD Dr. Ramu Tyler, DO Dr. Derrick Balderas MD Tissues: A - Bone of foot, NOS B - Bone of foot, NOS Procedures: Decalcification bone/plaque Surgery Specimen Level III Surgery Specimen Level IV HEADER OPERATION: Debridement of nonviable soft tissue and bone including fifth toe PRE-OP DIAGNOSIS: Osteomyelitis left foot TISSUE SUBMITTED: A ? Left metatarsal, B ? Left clearance fragment metatarsal MICROSCOPIC DIAGNOSIS A. Left fifth metatarsal and toe, amputation: Focal ulceration with associated acute inflammation. Underlying bone with acute osteomyelitis. B. Left clearance fragment metatarsal: A piece of bone with reactive changes, negative for acute osteomyelitis. JORY:prudence 02/09/2021 MICROSCOPIC DESCRIPTION Slides are reviewed. GROSS DESCRIPTION A - Received in fixative is one container labeled with the patient's name and designated left fifth metatarsal. The specimen consists of a distal toe with attached nail, bone and soft tissue measuring 4.5 cm in length and 1.6 cm in diameter. Also present in the specimen container are multiple irregular fragments of nathan-red bone measuring in aggregate 3 x 2 x 1.5 cm. Inspection Machine Tender sections are submitted in two cassettes after decalcification. B - Received in fixative is one container labeled with the patient's name and designated left clearance fragment metatarsal. The specimen consists of a single discoid fragment of nathan bone measuring 1 x 0.8 x 0.2 cm. The specimen is submitted in its entirety in one cassette after decalcification. / AM:prudence 02/04/21 TC:2 CPT: 07460, 62892, 61325 x2
[2021-02-04] MEDS: Lactated Ringers 1,000 ML 80 ML IV ×2 (06:39→10:51)
--- NOTE | 2021-02-04 07:23 | PCM.HP.STD ---
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 He had recent vascular surgery intervention with improved perfusion. He has the following medical conditions: stage IV renal failure, uncontrolled diabetes with neuropathy, peripheral vascular disease, GERD, hypertension, hyperlipidemia, right bundle branch block. He also has ejection fraction of 15%. He was admitted for postoperative medical observation. Prior to his surgery he was treated with oral antibiotics for osteomyelitis and has been under a comprehensive wound healing plan at the wound center. 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 (Chronic) Tailor's bunion of left foot (Chronic) Osteomyelitis (Chronic) 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 (Chronic) Ischemic cardiomyopathy (Chronic) Atherosclerosis of coronary artery bypass graft without angina pectoris (Chronic) CABG x 3: FULTON-distal D1, SVG-OM, SVG-Distal PDA 04/30/2014 Acute on chronic systolic (congestive) heart failure (Chronic) Right bundle branch block (RBBB) (Chronic) Secondary pulmonary arterial hypertension (Chronic) Essential (primary) hypertension (Chronic) HLD (hyperlipidemia) (Chronic) Medical History: Medical History (Last Reviewed 01/25/21 @ 13:41 by Traci GARCIA, PA) Peripheral vascular occlusive disease (Chronic) I73.9 Ischemic cardiomyopathy (Chronic) I25.5 Atherosclerosis of coronary artery bypass graft without angina pectoris (Chronic) I25.810 CABG x 3: FULTON-distal D1, SVG-OM, SVG-Distal PDA 04/30/2014 Acute on chronic systolic (congestive) heart failure (Chronic) I50.23 Right bundle branch block (RBBB) (Chronic) I45.10 Secondary pulmonary arterial hypertension (Chronic) I27.21 Essential (primary) hypertension (Chronic) I10 HLD (hyperlipidemia) (Chronic) E78.5 Anemia D64.9 Anemia of chronic renal failure, stage 4 (severe) N18.4, D63.1 Bilateral pleural effusion J90 Chronic renal failure, stage 4 (severe) N18.4 Claudication of both lower extremities I73.9 Diabetes mellitus type 2 in nonobese E11.9 Elevated PSA, between 10 and less than 20 ng/ml R97.20 GERD (gastroesophageal reflux disease) K21.9 Type 2 diabetes mellitus E11.9 Dyspnea (Resolved) R06.00 Incarcerated right inguinal hernia (Resolved) K40.30 Allergies No Known Allergies Allergy (Verified 02/04/21 06:24) Home Medications: Ambulatory Orders Medication Instructions Recorded Aspirin [Aspirin, Baby] 81 mg PO DAILY@0800 09/29/14 pantoprazole 40 mg tablet,delayed 40 mg PO DAILY 30 Days #30 tablet 02/07/18 release Ferrous Sulfate [Iron] 325 mg PO DAILY@1200 03/19/19 carvedilol 12.5 mg tablet 12.5 mg PO BID #180 tablet 01/14/20 atorvastatin 80 mg tablet 80 mg PO QHS #90 tablet 04/14/20 escitalopram oxalate 10 mg tablet 10 mg PO DAILY 30 Days #60 tablet 07/13/20 furosemide 20 mg tablet 60 mg PO DAILY 90 Days #270 tablet 09/20/20 Insulin Glargine,Hum.rec.anlog 12.5 unit SQ BID 09/22/20 [Lantus Solostar] traZODone [Desyrel] 50 mg PO QHS PRN 09/22/20 hydralazine 25 mg tablet 25 mg PO TID #270 tablet 10/21/20 Gabapentin [Neurontin] 100 mg PO QHS 12/22/20 Amoxicillin 875 mg PO 02/04/21 Clopidogrel Bisulfate [Clopidogrel] 75 mg PO 02/04/21 Surgical History: Surgical History (Last Reviewed 01/25/21 @ 13:41 by Traci Gan PA, PA) History of angioplasty of peripheral vessel (Resolved) Onset Date: 01/20/21 Z98.62 Balloon angioplasty the entire Left SFA through the mid popliteal with a 4 x 200 balloon. 01/20/21 H/O coronary artery bypass surgery (Resolved) Onset Date: 04/30/14 Z95.1 CABG x 3: FULTON-distal D1, SVG-OM, SVG-Distal PDA 04/30/2014 History of left heart catheterization (LHC) Onset Date: 03/20/19 Z98.890 Per [facility] 03/20/2019: Triple vessel CAD of the LAD, LCX and RCA; [place] patent FULTON to LAD; Widely patent SVG to OM; Occluded SVG to PDA (appears old); No LV angiogram done due to CRI. Elevated Left Ventricular End Diastolic Pressure Left heart cath March 2012; C W/ IABP INsertion 04/27/14 History of right inguinal hernia repair Onset Date: 03/2018 Z98.890, Z87.19 History of thoracentesis Z98.890 Surgical History: noncontributory, coronary bypass surgery, - - CABG x 3, R inguinal hernia repair. Left fifth ray resection Psychiatric History: Anxiety, Depression Lives: Spouse/ Significant Other Smoking Status: Never smoker Tobacco Use: Non-smoker - *Family History Paternal Family History: Family History (Last Reviewed 01/25/21 @ 13:41 by Traci GARCIA, PA) Brother CAD (coronary artery disease) History Items: - - Patient notes father with a history of polio with debility secondary to this but otherwise had been healthy and in his 90s. Maternal Family History: Family History (Last Reviewed 01/25/21 @ 13:41 by Traci GARCIA, PA) Brother CAD (coronary artery disease) History Items: Heart Disease Sibling Family History: Family History (Last Reviewed 01/25/21 @ 13:41 by Traci GARCIA, PA) Brother CAD (coronary artery disease) History Items: Heart Disease Review of Systems Constitutional: Denies: Chills, Fever Cardiovascular: Denies: Chest Pain Respiratory: Denies: Shortness of Breath VTE Information - Inpt Only VTE Present on Admission: No VTE Mechan Device Prophylaxis: SCD's VTE Pharm Prophylaxis ordered?: Yes - Physical Exam Vitals/I&O's: Vital Signs Temp Pulse Resp BP Pulse Ox 98.3 F 67 16 151/68 H 99 02/04/21 06:32 02/04/21 06:32 02/04/21 06:32 02/04/21 06:32 02/04/21 06:32 Oxygen Delivery Method Room Air Weight: 62.3 kg Body Mass Index (BMI) 23.6 Finger Stick Blood Glucose 163 General: Alert, Cooperative, Confused - intermittent confusion is his baseline status HEENT: Atraumatic Extremities: No cyanosis, No edema, Capillary Refill Less than 3 Seconds, No Calf Tenderness, Diminished Peripheral Pulses Skin: Incision - left foot Musculoskeletal: Muscle Wasting, - - fifth ray resection left foot; dressing intact Neurological: - - altered via light touch Psych/Mental Status: Normal Affect, Appropriate Microbiology Past 72 Hours 02/03/21 09:41 Interface Orders SARS-CoV-2 Antigen (Rapid) - Final Current Medications Docusate Sodium (Docusate Sodium 100 Mg Capsule) 100 mg PO BID PRN PRN PRN Reason: Constipation Lactated Ringer's () 1,000 mls @ 80 mls/hr IV .[id number] JENN Last Admin: 02/04/21 06:39 Dose: 80 mls/hr Documented by: Cefazolin Sodium 2 gm/ Sodium (Chloride) 110 mls @ 150 mls/hr IV X1 ONE Stop: 02/04/21 08:13 Ondansetron HCl (Ondansetron 4 Mg/2 Ml Vial) 4 mg IV Q8H PRN PRN PRN Reason: NAUSEA/VOMITING Oxycodone HCl (Oxycodone 5 Mg Tablet) 5 mg PO Q4H PRN PRN PRN Reason: Pain Score 4-5 Assessment/Plan All Active Problems (Last Reviewed 01/25/21 @ 13:41 by Traci Gan PA, PA) History of angioplasty of peripheral vessel (Resolved 01/20/21) Colonization status (Ruled-out) H/O coronary artery bypass surgery (Resolved 04/30/14) Dizziness (Acute) Ventricular ectopy (Acute) Dyspnea (Resolved) Hypokalemia (Resolved) Incarcerated right inguinal hernia (Resolved) Postoperative day #0 left fifth ray resection for treatment of osteomyelitis Recent peripheral vascular disease intervention with balloon angioplasty of the distal popliteal, SFA Uncontrolled diabetes with A1c over 11% Other comorbidities: stage IV renal failure, GERD, hypertension, hyperlipidemia, coronary artery disease with EF 15% (previously declined ICD) Malnutrition suspected Delayed healing He has been admitted postoperative for medical observation. There is no purulence, necrosis, or erythema noted after the resection was performed. Specimens were sent to both microbiology and pathology including clearance fragment of the fifth metatarsal. His preoperative cultures were noted and were previously covered with Augmentin. Infectious disease has seen this patient in the outpatient setting and also placed on consultation while here in the postoperative setting which is appreciated. Hospitalist was also asked to be on consultation for medical management and DVT prophylaxis recommendations. Case was discussed with Dr. Sanchez. It is noted the patient has continued on Plavix during the ashley and postoperative time due to his recent revascularization procedure. Postoperative x-rays were reviewed with adequate resection of the fifth ray. He was advised to maintain a nonweightbearing status to the left lower extremity and only heel weight-bear with surgical shoe as needed for transferring. PT OT ordered for tomorrow morning. I will follow him close while in house. Please do not hesitate to call if you have any questions. Aleyda Mandujano DPM, [facility] [phone]
--- NOTE | 2021-02-04 07:30 | RAD_ITS ---
STUDY: X-RAY - LEFT FOOT CLINICAL: Male, 75 years old. DEBRIDEMENT TECHNIQUE: 2 view(s) of the foot. COMPARISON: 01/05/2021 FINDINGS: 3 seconds of fluoroscopy of the left foot was utilized and operating room during transmetatarsal orientation of the fifth digit.. RAD/Foot 2 Views IMPRESSION: Fluoroscopy during surgery. Electronically Signed: Ray Zamorano MD at 6:44 EDT Tel , Service support ,
[2021-02-04 07:40] LABS: Bedside Glucose 104 mg/dL (70-110)
[2021-02-04] MEDS: Cefazolin 2 GM in 0.9% Normal Saline 100 ML IV (08:04)
[2021-02-04] MEDS: Bupivacaine Mpf 0.5% 30 ML VIAL (08:05)
[2021-02-04] MEDS: Lidocaine 1% (30 ml sdv) 30 ML Vial (08:05)
--- NOTE | 2021-02-04 08:21 | OP.PCM_ITS ---
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 tailor bunion, left Post-Operative Diagnosis: ulcer left foot with osteomyelitis of fifth metatarsal head. tailor bunion, left Surgery/Procedure Performed:: left fifth ray resection Description of Surgical Findings:: Hemostasis: Well-padded pneumatic left ankle tourniquet, 250 mmHg, 13 minutes Materials: 2-0 Vicryl, 3-0 and 4-0 nylon Specimens sent Complications: None Main findings: No necrosis, purulence, infection noted at amputation level The patient tolerated the procedure and anesthesia well. The patient was transported to the PACU with vital signs stable and vascular status intact to the surgical limb. To ice for pain and inflammation management. Pain medication was additionally ordered if needed. Postoperative x-rays were reviewed prior to leaving the operating room with status post fifth ray resection without acute injuries, foreign body, soft tissue emphysema or other remaining acute osseous destruction. Postoperative orders were entered electronically. He will stay for observation and will be transferred to the medical floor. sander hand: yes - Surgeon: Aleyda Mandujano DPM. Web Application Developer: Edy Pabon PGY2, DPLarry Type of Anesthesia:: MAC/Supplemental/Local - Preoperative: One-to-one mixture of 1% lidocaine plain and 0.5% Marcaine plain ministered and typical left foot fashion, 10 cc Intraoperative: One-to-one mixture of 1% lidocaine plain and 0.5% Marcaine plain ministered and typical left foot fashion, 5 cc Specimen's removed: 1. Left foot soft tissue and bone sent to pathology. 2. Left foot soft tissue and bone sent to microbiology (aerobic, anaerobic, acid- fast, fungal). 3. Left metatarsal clearance fragment sent to pathology. 4. Left metatarsal clearance fragment sent to microbiology (aerobic, anaerobic, acid-fast, fungal) Estimated Blood Loss (mL): < 25 mL Description of Procedure: Indications: This 75-year-old male has been treated at the wound healing center for nonhealing left foot ulcer with exposed bone that has deteriorated. He has a diagnosis of osteomyelitis and his comprehensive wound healing plan has included vascular surgery intervention, offloading, antibiotic use, and local wound care including debridements. He has multiple comorbidities including the following: stage IV renal failure, uncontrolled diabetes with neuropathy (A1c over 11%), peripheral vascular disease, GERD, hypertension, hyperlipidemia, right bundle branch block, and malnutrition with significant delayed healing. He also has ejection fraction of 15%. His preoperative H&P were reviewed including his diagnostic data. His impaired cardiac function is noted and his most recent echo demonstrated significantly reduced EF. His renal impairment is also noted. He does not have leukocytosis or acute purulence at this time. Clinically, he has tissue loss and recent vascular intervention is noted including balloon angioplasty of the left SFA and distal popliteal with Dr. Bowens. He also has tailor bunion deformity and adjacent hammer toe which has contributed to pressure at this fifth metatarsal head fragile site. He has exposed discolored and soft fifth metatarsal head bone thatcorresponds with his clinical diagnosis of osteomyelitis. His prior cultures demonstrated bacterial growth in which Augmentin with renal dosing per infectious disease physician, Dr. Balderas provided adequate coverage. The preoperative indications, planned procedure, benefits, risk, anticipated healing time and management were reviewed. The patient understands and elects proceed with surgery at this time. No guarantees were made. The patient understands risk and complications include but are not limited to following: pain, swelling, scarring, need for further surgery, tendon contracture, transfer lesions or ulcers, arthritis, need for further surgery, delayed or nonhealing, infection, blood clot, allergic reaction, loss of limb, function, or life. The informed surgical limb and consent were signed. I answered all the patient's questions. The patient also understands there is an inherent risk with being in the hospital and undergoing a procedure during the time of COVID-19 pandemic. The patient understands precautions are being taken to prevent transmission. This patient understands the benefits and risks of having a procedure at this time versus waiting in which the benefits are reasonable at this time. Procedure in detail: The patient was transported to the operating room via cart and placed on the operating table in the supine position. Final verification of the patient, surgery, limb designation was performed via the timeout procedure. MAC anesthesia was initiated by the anesthesia team. Preoperative local anesthetic was initiated by the podiatry team. A well-padded pneumatic left ankle tourniquet was placed. His left hip was bumped to allow good exposure. The left lower extremity was prepped and draped in the usual aseptic manner. [place] exsanguination was performed the tourniquet was inflated at this time. Surgery began the following manner: Attention was first directed to the lateral left forefoot in which a linear and distal fishmouth incision was made to excise the ulcer and allow good exposure of the distal half of the metatarsal. Blunt dissection was performed down to the bone level and care was taken to identify, protect, and retract all neurovascular structures at this point and throughout the remainder of surgery for the desired remaining tissue. A sagittal saw was next used to excise the fifth metatarsal and digit excised and this was sent to microbiology and pathology. Any devitalized tissue including remaining plantar plate and tendons were also excised. Healthy bleeding tissue was noted however there was minimal bleeding. Copious saline irrigation was performed and it is noted there is no purulence, necrosis or remaining devitalized tissue. At this time new instruments, adjacent drapes, and gloves were used. A clean sagittal saw was used to obtain a clearance fragment of the fifth metatarsal which was also sent to microbiology and pathology. Saline irrigation was performed again. The tourniquet was deflated at this time and capillary fill time was noted to the dorsal and plantar aspects of the distal amputation site less than three seconds. No pulsatile bleeding was noted and minimal electrocauterization was performed. Deep closure was performed with Vicryl suture. The skin was reapproximated utilizing vertical mattress and simple suture techniques in a nontension and no touch technique manner. A postoperative dressing consisting of Betadine soaked Adaptic, gauze, Kerlix, and Sean wrap applied in a noncompressive manner was applied to the left foot. After procedure: The patient tolerated the procedure and anesthesia well. The patient was transported to the PACU with vital signs stable and vascular status intact to the surgical limb. To ice and elevate for pain and inflammation management. Postoperative x-rays were reviewed prior to leaving the operating room as noted. He will stay for observation and medical management in the immediate postoperative setting. He will be transferred to the medical floor upon continued stability. PT and OT will see him tomorrow to confirm he is able to stay off of his surgical amputation site. Infectious diseases on consult as well and additional input will be appreciated. Hospitalist service was also consulted for medical management. It is noted he continues on Plavix during the intra and postoperative time due to his recent revascularization procedure. Intraoperative specimens including clearance fragments were sent to both microbiology and pathology and these results are pending. Postoperative orders were entered electronically. Aleyda Mandujano DPM, [facility] [place] Grafts/Implants Used: none - Complications none - Admit VTE Documentation VTE Present on Admission: No VTE Mechan Device Prophylaxis: SCD's VTE Pharm Prophylaxis ordered?: Yes
--- NOTE | 2021-02-04 12:25 | RAD_ITS ---
STUDY: X-RAY - LEFT FOOT CLINICAL: Male, 75 years old. s/p fifth ray resection TECHNIQUE: 3 view(s) of the foot. COMPARISON: 01/05/2021 FINDINGS: Normal talus, calcaneus, and tarsal bones. Small posterior calcaneal enthesophyte. Normal visualized subtalar, talonavicular, calcaneocuboid, tarsal and tarsometatarsal articulations. Interval transmetatarsal amputation of the fifth digit. Normal metatarsophalangeal joint of the great toe. There is a bipartite tibial sesamoid. Normal interphalangeal joint of the great toe. Normal phalanges of the great toe. Normal second through fifth metatarsophalangeal joints. Normal interphalangeal joints and phalanges of the lesser toes. The soft tissue structures are unremarkable. RAD/Foot min 3 Views IMPRESSION: Interval transmetatarsal amputation of the fifth digit. Electronically Signed: Ray Zamorano MD at 6:45 EDT Tel , Service support ,
[2021-02-04] MEDS: oxyCODONE 5 MG Tablet PO ×3 (12:55→22:06)
--- NOTE | 2021-02-04 13:41 | PN_ITS ---
Subjective: Patient seen and examined. Underwent left fifth ray resection secondary to left foot ulcer with osteomyelitis. Patient complains of mild throbbing sensation. Denies other associated symptoms or complaints. - Physical Exam Vitals/I&O's: Vital Signs Temp Pulse Resp BP Pulse Ox 97.4 F L 57 L 18 146/57 H 96 02/04/21 11:59 02/04/21 11:59 02/04/21 11:59 02/04/21 11:59 02/04/21 11:59 Oxygen Delivery Method Room Air Weight: 137 lb 5.568 oz Body Mass Index (BMI) 23.6 Finger Stick Blood Glucose 163 Intake and Output for Last 24 Hours 02/02/21 02/03/21 02/04/21 23:59 23:59 23:59 Intake Total 446 / 446 Output Total 1600 / 1600 Balance -1154 / -1154 General: Alert, Oriented x3, Cooperative HEENT: Atraumatic, PERRLA, EOMI, Normocephalic Neck: Supple, No JVD, Negative Carotid Bruits Lungs: Clear to auscultation, Normal air movement Cardiovascular: Regular rate, No murmurs Abdomen: Bowel Sounds Present, Soft, Non Tender, Non-Distended Extremities: No clubbing, No cyanosis, No edema Skin: No rashes, No breakdown, - - Left foot postop dressing intact Musculoskeletal: No Tenderness to Palpation of Joints or Extremities Neurological: Cranial nerves II-XII grossly intact, Neuro grossly intact Psych/Mental Status: Normal Affect, Appropriate Microbiology Past 72 Hours 02/04/21 08:05 Tissue - Clearance Fragment Gram Stain - Final 02/04/21 08:01 Tissue - 5th Metatarsal Bone Gram Stain - Final 02/03/21 09:41 Interface Orders SARS-CoV-2 Antigen (Rapid) - Final Laboratory Results 02/04/21 06:14: POC Glucose 104 Current Medications Docusate Sodium (Docusate Sodium 100 Mg Capsule) 100 mg PO BID PRN PRN PRN Reason: Constipation Lactated Ringer's () 1,000 mls @ 80 mls/hr IV .[id number] [facility] Last Admin: 02/04/21 10:51 Dose: 80 mls/hr Documented by: Ampicillin Sodium/Sulbactam (Sodium 3 gm/ Sodium Chloride) 112 mls @ 150 mls/hr IV Q12 JENN Vancomycin IV Pharmacy to Dose (1 each/ Sodium Chloride) 500 mls @ 250 mls/hr IV X1 PRN; Protocol PRN Reason: Rx to Dose Vancomycin HCl 1,500 mg/ (Sodium Chloride) 530 mls @ 250 mls/hr IV X1 ONE Stop: 02/04/21 15:37 Vancomycin HCl () 500 mg in 100 mls @ 100 mls/hr IV Q24H JENN Ondansetron HCl (Ondansetron 4 Mg/2 Ml Vial) 4 mg IV Q8H PRN PRN PRN Reason: NAUSEA/VOMITING Oxycodone HCl (Oxycodone 5 Mg Tablet) 5 mg PO Q4H PRN PRN PRN Reason: Pain Score 4-10 Last Admin: 02/04/21 12:55 Dose: 5 mg Documented by: Sodium Chloride (0.9% Saline Lock 10 Ml Syringe) 10 - 40 ml IV UD PRN PRN Reason: SALINE FLUSH Medical Necessity - Tobacco Use Smoking Status: Never smoker Tobacco Use: Non-smoker Assessment/Plan All Active Problems (Last Reviewed 01/25/21 @ 13:41 by Traci Gan PA, PA) History of angioplasty of peripheral vessel (Resolved 01/20/21) Colonization status (Ruled-out) H/O coronary artery bypass surgery (Resolved 04/30/14) Dizziness (Acute) Ventricular ectopy (Acute) Dyspnea (Resolved) Hypokalemia (Resolved) Incarcerated right inguinal hernia (Resolved) 1. Left foot ulcer with osteomyelitis status post left fifth ray resection 02/04/[address] Mandujano- management per podiatry. On IV Vanc and IV Unasyn. As needed pain regimen. PT/OT. 2. CAD with history of CABG/severe cardiomyopathy-echocardiogram March 2019 demonstrated an EF of 15%. Following as outpatient cardiology. Continue aspirin, statin, carvedilol, Plavix, Lasix, hydralazine. 3. Type 2 diabetes [id number] with sliding scale insulin. Continue home Lantus regimen. 4. Hypertension-stable, continue carvedilol, Lasix, hydralazine. 5. Hyperlipidemia-continue statin. 6. Anemia of chronic disease-stable, trend CBC. 7. Chronic kidney disease stage IV-at baseline. DVT prophylaxis-SCDs, pharmacologic prophylaxis if approved per podiatry This patient was seen by CHAITANYA Mao under the supervision of Dr. Sanchez.
--- NOTE | 2021-02-04 13:46 | PCM.HP.ID ---
Problem List (1) Osteomyelitis Status: Chronic Reason for Consult: osteo Consulted by: Dr. Mandujano History of Present Illness: The patient is a 75 year old M with PAD, CHF, CKD, DM neuropathy, presented with L foot ulcer since at least 09/2020. Follows at wound care, has had continued redness, ulceration, drainage. Wound cx done as outpt, has been on augmentin without much improvement. Has completed covid series. Now admitted for L 5th ray resection by Dr. Mandujano this AM, c/o some throbbing in foot, otherwise ok. Full ROS performed and neg except as noted above. 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) Osteomyelitis (Chronic) 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 (Chronic) Ischemic cardiomyopathy (Chronic) Atherosclerosis of coronary artery bypass graft without angina pectoris (Chronic) CABG x 3: FULTON-distal D1, SVG-OM, SVG-Distal PDA 04/30/2014 Acute on chronic systolic (congestive) heart failure (Chronic) Right bundle branch block (RBBB) (Chronic) Secondary pulmonary arterial hypertension (Chronic) Essential (primary) hypertension (Chronic) HLD (hyperlipidemia) (Chronic) Allergies/Adverse Reactions: Allergies No Known Allergies Allergy (Verified 02/04/21 06:24) Home Medications: Ambulatory Orders Medication Instructions Recorded Aspirin [Aspirin, Baby] 81 mg PO DAILY@0800 09/29/14 pantoprazole 40 mg tablet,delayed 40 mg PO DAILY 30 Days #30 tablet 02/07/18 release Ferrous Sulfate [Iron] 325 mg PO DAILY@1200 03/19/19 carvedilol 12.5 mg tablet 12.5 mg PO BID #180 tablet 01/14/20 atorvastatin 80 mg tablet 80 mg PO QHS #90 tablet 04/14/20 escitalopram oxalate 10 mg tablet 10 mg PO DAILY 30 Days #60 tablet 07/13/20 furosemide 20 mg tablet 60 mg PO DAILY 90 Days #270 tablet 09/20/20 Insulin Glargine,Hum.rec.anlog 12.5 unit SQ BID 09/22/20 [Lantus Solostar] traZODone [Desyrel] 50 mg PO QHS PRN 09/22/20 hydralazine 25 mg tablet 25 mg PO TID #270 tablet 10/21/20 Gabapentin [Neurontin] 100 mg PO QHS 12/22/20 Amoxicillin 875 mg PO 02/04/21 Clopidogrel Bisulfate [Clopidogrel] 75 mg PO 02/04/21 - Social History Tobacco Use: non-smoker Vital Signs Temp Pulse Resp BP Pulse Ox 97.4 F L 57 L 18 146/57 H 96 02/04/21 11:59 02/04/21 11:59 02/04/21 11:59 02/04/21 11:59 02/04/21 11:59 Oxygen Delivery Method Room Air Weight: 62.3 kg Body Mass Index (BMI) 23.6 Finger Stick Blood Glucose 163 Microbiology Past 72 Hours 02/04/21 08:05 Gram Stain - Final Tissue - Clearance Fragment 02/04/21 08:01 Gram Stain - Final Tissue - 5th Metatarsal Bone 02/03/21 09:41 SARS-CoV-2 Antigen (Rapid) - Final Interface Orders - Other Studies Radiology: [] reviewed Other Studies: [] Route of nutrition/ use of supplements: [] Nutritional Intake: [] IV Site: [] Stovall Catheter: [] - Physical Exam General: Alert, Oriented x3, Cooperative, No apparent distress HEENT: Atraumatic, PERRLA, EOMI Neck: Supple, No Nodes Lungs: Clear to auscultation, Normal air movement Cardiovascular: Regular rate, Regular Rhythm Abdomen: Soft, Non Tender, Non-Distended Extremities: No edema Skin: Ulcer/ Wound - foot wrapped IV Site: Peripheral, without redness Musculoskeletal: No Tenderness to Palpation of Joints or Extremities Neurological: Cranial nerves II-XII grossly intact - Assessment/Plan Antibiotics: [] Assessment/Plan: [] L foot osteo - now s/p L 5th ray resection by Dr. Mandujano 02/04/21. Surg cx pending. Recent wound cx with strep, MS-CoNS, and enterococcus. Had been on augmentin up until admit for OR. Will cover with vanc/unasyn empirically now, adjusted for GFR. With good source control, hopefully will be able to d/c home on po abx. Will follow, thank you, d/w case advocate
--- NOTE | 2021-02-04 15:20 | PCM.RX.CS ---
Consult Type of Consult: New start Prior Doses of Antibiotics Received/Current Regimen: Medications Vancomycin HCl 1,500 mg/ (Sodium Chloride) 530 mls @ 250 mls/hr IV X1 ONE Stop: 02/04/21 15:37 Last Admin: 02/04/21 14:49 Dose: 250 mls/hr Documented by: Microbiology: Microbiology 02/04/21 08:05 Tissue - Clearance Fragment Gram Stain - Final 02/04/21 08:01 Tissue - 5th Metatarsal Bone Gram Stain - Final 02/03/21 09:41 Interface Orders SARS-CoV-2 Antigen (Rapid) - Final Weight used for dosin kg Estimated Creatinine Clearance: 20 Goal Trough: 15-20 mcg/mL Pharmacy Plan for Drug Dosinmg load given, follow with 500mg IV q24h with trough prior to 3rd dose per policy. Pharmacy Service will continue to monitor and adjust dosing as required. Follow-Up Labs: Trough Vancomycin - 02/06 @ 1430
[2021-02-04] MEDS: Morphine 2 MG/ML Syringe IV ×2 (15:44→23:31)
[2021-02-04] MEDS: Insulin Lispro 100 UNIT/ML INSULN.PEN SC ×2 (16:02→22:07)
[2021-02-04] MEDS: Tamsulosin HCl 0.4 MG Capsule PO (17:00)
[2021-02-04] MEDS: Gabapentin 100 MG Capsule PO (19:50)
[2021-02-04] MEDS: hydrALAZINE 25 MG Tablet PO (19:50)
[2021-02-04] MEDS: Aspirin 81 MG TAB.CHEW PO (19:50)
[2021-02-04] MEDS: Carvedilol 12.5 MG Tablet PO (19:50)
[2021-02-04] MEDS: Docusate Sodium 100 MG Capsule PO (19:50)
[2021-02-04] MEDS: Atorvastatin Calcium 80 MG Tablet PO (19:50)
[2021-02-04] MEDS: traZODone 50 MG Tablet PO (22:06)
[2021-02-04 22:21] LABS: Bedside Glucose 206 mg/dL (70-110)
[2021-02-05] VITALS (8 sets, daily range): BP systolic 110–135; BP diastolic 57–82; PULSE 78–88; RESP 18; TEMP 36.6–36.9; O2SAT 93–98
[2021-02-05] MEDS: Lactated Ringers 1,000 ML 80 ML IV ×2 (01:30→14:24)
[2021-02-05 03:05] LABS: Bedside Glucose 186 mg/dL (70-110)
[2021-02-05] MEDS: hydrALAZINE 25 MG Tablet PO ×3 (05:06→22:43)
[2021-02-05 06:40] LABS: Bedside Glucose 126 mg/dL (70-110)
[2021-02-05 06:57] LABS: Absolute Lymphocyte Count 1.79 X10^3/uL (0.83-4.51); Basophil# 0.04 X10^3/uL; Basophil% 0.3 % (0-1); Eosinophil# 0.08 X10^3/uL; Eosinophils% 0.5 % (0-5); Hematocrit 34.6 % (40-54); Lymphocyte # 1.79 X10^3/ul (0.83-4.51); Lymphocyte % 11.5 % (19-41); Mean Corp Hgb Conc 31.8 g/dL (32-36); Mean Corpuscular Hgb 28.8 pg (27.0-32.0); Mean Corpuscular Volume 90.6 fL (80-94); Mean Platelet Vol. 10.9 fl (6.2-12.0); Monocyte% 10.9 % (0-10); NRBC Flagged by Analyzer 0 % (0-5); Neutrophil # 11.96 X10^3/uL (2.7-7.7); Neutrophil % 76.4 % (47-70); POSITIVE DIFFERENTIAL YES; Platelet Count 302 K/mm3 (150-450); RBC Distribution Width CV 13.6 % (11.6-14.6); RBC Distribution Width SD 45.2 fl (35.1-43.9); Red Blood Count 3.82 M/mm3 (4.6-6.2); White Blood Count 15.6 K/mm3 (4.4-11.0)
[2021-02-05] MEDS: Polyethylene Glycol 3350 17 GM PACKET PO (06:57)
[2021-02-05 07:06] LABS: Differential Indicated SCAN CRITERIA MET
[2021-02-05 07:20] LABS: ALB/GLOB Ratio 0.7 RATIO (0.9-2.4); AST(SGOT) 21 U/L (15-37); Alanine Aminotransfer ALT/SGPT 13 U/L (16-61); Albumin, Serum 2.8 g/dL (3.2-5.0); Alkaline Phosphatase 91 U/L (45-117); Anion Gap 3 (5-15); BUN 37 mg/dL (7-18); BUN/Creat Ratio 15.2 RATIO (10-20); Calcium,Total 8.8 mg/dL (8.5-10.1); Chloride 107 mmol/L (98-107); Creatinine, Serum 2.43 mg/dL (0.70-1.30); EST Glomerular Filtration Rate 28 mL/min (>60); Est Glom Filt Rate - Afr Amer 33 mL/min (>60); Estimated Creatinine Clearance 21.32 ml/min; Globulin 4.1 g/dL (2.2-4.2); Glucose 120 mg/dL (74-106); Potassium 4.7 mmol/L (3.5-5.1); Protein, Total 6.9 g/dL (6.4-8.2); Sodium Level 136 mmol/L (136-145)
[2021-02-05 07:42] LABS: Hemoglobin A1c 7.5 % (3.8-5.6)
--- NOTE | 2021-02-05 08:39 | PCM.PROGNOTE ---
Subjective: This 75-year-old male with multiple comorbidities was seen bedside postoperative day #1 left foot fifth ray resection for treatment of osteomyelitis. He rates his pain at worst a 5 out of 10 that is controlled well with his pain medication. He denies fever, chill, nausea, vomiting, shortness of breath or chest pain or calf pain. Urinary retention yesterday. He did not see physical therapy yet. - Physical Exam Vitals/I&O's: Vital Signs Temp Pulse Resp BP Pulse Ox 98.4 F 80 18 121/58 H 93 02/05/21 04:00 02/05/21 05:06 02/05/21 04:00 02/05/21 04:00 02/05/21 04:00 Oxygen Delivery Method Room Air Weight: 62.3 kg Body Mass Index (BMI) 23.6 Finger Stick Blood Glucose 163 Intake and Output for Last 24 Hours 02/03/21 02/04/21 02/05/21 23:59 23:59 23:59 Intake Total 1560 / 1560 1120 / 1120 Output Total 2850 / 2850 200 / 200 Balance -1290 / -1290 920 / 920 General: Alert, Oriented x3, Cooperative HEENT: Atraumatic Extremities: No cyanosis, No edema, Capillary Refill Less than 3 Seconds - adjacent to incision site, No Calf Tenderness, Diminished Peripheral Pulses, Tenderness - with amputation site palpation Skin: Incision - well aligned and coapted with sutures intact without gapping, purulence, erythema, odor or infection Musculoskeletal: Muscle Wasting, Tenderness Neurological: Sensory exam intact to light touch and pain Psych/Mental Status: Normal Affect, Appropriate Microbiology Past 72 Hours 02/04/21 08:05 Tissue - Clearance Fragment Gram Stain - Final 02/04/21 08:01 Tissue - 5th Metatarsal Bone Gram Stain - Final 02/03/21 09:41 Interface Orders SARS-CoV-2 Antigen (Rapid) - Final Laboratory Results 02/04/21 15:58: POC Glucose 186 H 02/04/21 22:05: POC Glucose 206 H 02/05/21 06:32: POC Glucose 126 H 02/05/21 06:49: WBC 15.6 H, RBC 3.82 L, Hgb 11.0 L, Hct 34.6 L, MCV 90.6, MCH 28.8, MCHC 31.8 L, RDW Std Deviation 45.2 H, RDW Coeff of Milad 13.6, Plt Count 302, MPV 10.9, Immature Gran % (Auto) 0.400, Neut % (Auto) 76.4 H, Lymph % (Auto) 11.5 L, [place] % (Auto) 10.9 H, Eos % (Auto) 0.5, Baso % (Auto) 0.3, Absolute Neuts (auto) 12.0 H, Absolute Lymphs (auto) 1.79, Nucleated RBC % 0, Diff Path Review February02/05/21 06:49: Sodium 136, Potassium 4.7, Chloride 107, Carbon Dioxide 26.0, Anion Gap 3 L, BUN 37 H, Creatinine 2.43 H, Estim Creat Clear Calc 21.32, Est GFR (MDRD) Af Amer 33 L, Est GFR (MDRD) Non-Af 28 L, BUN/Creatinine Ratio 15.2, Glucose 120 H, Calcium 8.8, Total Bilirubin 1.00, AST 21, ALT 13 L, Alkaline Phosphatase 91, Total Protein 6.9, Albumin 2.8 L, Globulin 4.1, Albumin/Globulin Ratio 0.7 L 02/05/21 06:49: Hemoglobin A1c 7.5 H Current Medications Al Hydroxide/Mg Hydroxide (Mag Hydrox/Al Hydrox/Simeth 30 Ml Udc) 30 ml PO Q6H PRN PRN PRN Reason: Gastric Burning Aspirin (Aspirin 81 Mg Tab.Chew) 81 mg PO QHS [facility] Last Admin: 02/04/21 19:50 Dose: 81 mg Documented by: Atorvastatin Calcium (Atorvastatin Calcium 80 Mg Tablet) 80 mg PO QHS [facility] Last Admin: 02/04/21 19:50 Dose: 80 mg Documented by: Bisacodyl (Bisacodyl 5 Mg Tablet) 10 mg PO DAILY PRN PRN PRN Reason: Constipation Carvedilol (Carvedilol 12.5 Mg Tablet) 12.5 mg PO BID [facility] Last Admin: 02/04/21 19:50 Dose: 12.5 mg Documented by: Docusate Sodium (Docusate Sodium 100 Mg Capsule) 100 mg PO BID PRN PRN PRN Reason: Constipation Last Admin: 02/04/21 19:50 Dose: 100 mg Documented by: Escitalopram Oxalate (Escitalopram Oxalate 10 Mg Tablet) 10 mg PO DAILY [facility] Ferrous Sulfate (Ferrous Sulfate 325 Mg Tablet) 325 mg PO DAILY@1200 [facility] Furosemide (Furosemide 20 Mg Tablet) 60 mg PO DAILY [facility] Gabapentin (Gabapentin 100 Mg Capsule) 100 mg PO QHS [facility] Last Admin: 02/04/21 19:50 Dose: 100 mg Documented by: Hydralazine HCl (Hydralazine 25 Mg Tablet) 25 mg PO TID [facility] Last Admin: 02/05/21 05:06 Dose: 25 mg Documented by: Lactated Ringer's () 1,000 mls @ 80 mls/hr IV .[id number] [facility] Last Admin: 02/05/21 01:30 Dose: 80 mls/hr Documented by: Ampicillin Sodium/Sulbactam (Sodium 3 gm/ Sodium Chloride) 112 mls @ 150 mls/hr IV Q12 [facility] Last Infusion: 02/04/21 22:51 Dose: Infused Documented by: Vancomycin IV Pharmacy to Dose (1 each/ Sodium Chloride) 500 mls @ 250 mls/hr IV X1 PRN; Protocol PRN Reason: Rx to Dose Vancomycin HCl () 500 mg in 100 mls @ 100 mls/hr IV Q24H [facility] Insulin Glargine (Insulin Glargine 100 Units/Ml Pen) 15 units SC 1100,2200 [facility] Last Admin: 02/04/21 22:15 Dose: 15 u Documented by: Insulin Human Lispro (Insulin Lispro 100 Unit/Ml Insuln.Pen) 0 unit SC ACHS [facility]; Protocol Last Admin: 02/05/21 06:33 Dose: Not Given Documented by: Morphine Sulfate (Morphine 2 Mg/Ml Syringe) 2 mg IV Q2H PRN PRN PRN Reason: Pain Score 6-10 Last Admin: 02/04/21 23:31 Dose: 2 mg Documented by: Ondansetron HCl (Ondansetron 4 Mg/2 Ml Vial) 4 mg IV Q8H PRN PRN PRN Reason: NAUSEA/VOMITING Oxycodone HCl (Oxycodone 5 Mg Tablet) 5 mg PO Q4H PRN PRN PRN Reason: Pain Score 4-5 Last Admin: 02/04/21 22:06 Dose: 5 mg Documented by: Pantoprazole Sodium (Pantoprazole Sodium 40 Mg Tablet) 40 mg PO DAILY [facility] Polyethylene Glycol (Polyethylene Glycol 3350 17 Gm Packet) 17 gm PO DAILY [facility] Last Admin: 04/24/21 06:57 Dose: 17 gm Documented by: Sodium Chloride (0.9% Saline Lock 10 Ml Syringe) 10 - 40 ml IV UD PRN PRN Reason: SALINE FLUSH Tamsulosin HCl (Tamsulosin Hcl 0.4 Mg Capsule) 0.4 mg PO DAILY@1730 [facility] Last Admin: 02/04/21 17:00 Dose: 0.4 mg Documented by: Trazodone HCl (Trazodone 50 Mg Tablet) 50 mg PO QHS PRN PRN PRN Reason: SLEEP Last Admin: 02/04/21 22:06 Dose: 50 mg Documented by: Medical Necessity - Tobacco Use Smoking Status: Never smoker Tobacco Use: Non-smoker Assessment/Plan All Active Problems (Last Reviewed 01/25/21 @ 13:41 by Traci GARCIA, PA) History of angioplasty of peripheral vessel (Resolved 01/20/21) Colonization status (Ruled-out) H/O coronary artery bypass surgery (Resolved 04/30/14) Dizziness (Acute) Ventricular ectopy (Acute) Dyspnea (Resolved) Hypokalemia (Resolved) Incarcerated right inguinal hernia (Resolved) Postoperative day #1 left fifth ray resection for treatment of osteomyelitis Recent peripheral vascular disease intervention with balloon angioplasty of the distal popliteal, SFA Uncontrolled diabetes with A1c now reduced to 7.5% Other comorbidities: stage IV renal failure, GERD, hypertension, hyperlipidemia, coronary artery disease with EF 15% (previously declined ICD) Malnutrition suspected Delayed healing I reviewed his case. He is afebrile vital signs are stable. His dressing was changed with Betadine wet-to-dry gauze and there is no local signs of infection or william necrosis noted at the surgical site. Today his Sean wrap and surgical shoe were not applied to alleviate pressure to the surgical incision site. His leukocytosis is noted and will be monitored. Infectious diseases on consult and greatly appreciated. He is on Unasyn and vancomycin at this time. Transition to oral antibiotics is anticipated. Intraoperative clearance fragments were sent to both pathology microbiology and these results are pending. Continue plavix; post operative vascular surgery. He was advised to maintain a nonweightbearing status to the left lower extremity and only heel weight-bear. Ok to heel weightbear occasionally for transfers with surgical shoe. PT / OT ordered. Hospitalist on consultation for medical management and DVT prophylaxis recommendations. Urinary retention note and celestin placed. I will follow him close while in house. Please do not hesitate to call if you have any questions. Aleyda Mandujano DPM, FACFAS [facility] [phone]
--- NOTE | 2021-02-05 09:44 | PCM.PROGNOTE ---
Subjective: Patient seen and examined. Denies significant foot pain. Denies other associated symptoms or complaints. Stovall placed last evening due to urinary retention. - Physical Exam Vitals/I&O's: Vital Signs Temp Pulse Resp BP Pulse Ox 98.4 F 80 18 121/58 H 93 02/05/21 04:00 02/05/21 05:06 02/05/21 04:00 02/05/21 04:00 02/05/21 04:00 Oxygen Delivery Method Room Air Weight: 137 lb 5.568 oz Body Mass Index (BMI) 23.6 Finger Stick Blood Glucose 163 Intake and Output for Last 24 Hours 02/03/21 02/04/21 02/05/21 23:59 23:59 23:59 Intake Total 1560 / 1560 1120 / 1120 Output Total 2850 / 2850 200 / 200 Balance -1290 / -1290 920 / 920 General: Alert, Oriented x3, Cooperative HEENT: Atraumatic, PERRLA, EOMI, Normocephalic Neck: Supple, No JVD, Negative Carotid Bruits Lungs: Clear to auscultation, Normal air movement Cardiovascular: Regular rate, No murmurs Abdomen: Bowel Sounds Present, Soft, Non Tender, Non-Distended Extremities: No clubbing, No cyanosis, No edema, Capillary Refill Less than 3 Seconds Skin: No rashes, No breakdown, - - Left foot postop dressing intact Musculoskeletal: No Tenderness to Palpation of Joints or Extremities Neurological: Cranial nerves II-XII grossly intact, Neuro grossly intact Psych/Mental Status: Normal Affect, Appropriate Microbiology Past 72 Hours 02/04/21 08:05 Tissue - Clearance Fragment Gram Stain - Final 02/04/21 08:01 Tissue - 5th Metatarsal Bone Gram Stain - Final 02/03/21 09:41 Interface Orders SARS-CoV-2 Antigen (Rapid) - Final Laboratory Results 02/04/21 15:58: POC Glucose 186 H 02/04/21 22:05: POC Glucose 206 H 02/05/21 06:32: POC Glucose 126 H 02/05/21 06:49: WBC 15.6 H, RBC 3.82 L, Hgb 11.0 L, Hct 34.6 L, MCV 90.6, MCH 28.8, MCHC 31.8 L, RDW Std Deviation 45.2 H, RDW Coeff of Milad 13.6, Plt Count 302, MPV 10.9, Immature Gran % (Auto) 0.400, Neut % (Auto) 76.4 H, Lymph % (Auto) 11.5 L, [place] % (Auto) 10.9 H, Eos % (Auto) 0.5, Baso % (Auto) 0.3, Absolute Neuts (auto) 12.0 H, Absolute Lymphs (auto) 1.79, Nucleated RBC % 0, Diff Path Review February02/05/21 06:49: Sodium 136, Potassium 4.7, Chloride 107, Carbon Dioxide 26.0, Anion Gap 3 L, BUN 37 H, Creatinine 2.43 H, Estim Creat Clear Calc 21.32, Est GFR (MDRD) Af Amer 33 L, Est GFR (MDRD) Non-Af 28 L, BUN/Creatinine Ratio 15.2, Glucose 120 H, Calcium 8.8, Total Bilirubin 1.00, AST 21, ALT 13 L, Alkaline Phosphatase 91, Total Protein 6.9, Albumin 2.8 L, Globulin 4.1, Albumin/Globulin Ratio 0.7 L 02/05/21 06:49: Hemoglobin A1c 7.5 H Current Medications Al Hydroxide/Mg Hydroxide (Mag Hydrox/Al Hydrox/Simeth 30 Ml Udc) 30 ml PO Q6H PRN PRN PRN Reason: Gastric Burning Aspirin (Aspirin 81 Mg Tab.Chew) 81 mg PO QHS [facility] Last Admin: 02/04/21 19:50 Dose: 81 mg Documented by: Atorvastatin Calcium (Atorvastatin Calcium 80 Mg Tablet) 80 mg PO QHS [facility] Last Admin: 02/04/21 19:50 Dose: 80 mg Documented by: Bisacodyl (Bisacodyl 5 Mg Tablet) 10 mg PO DAILY PRN PRN PRN Reason: Constipation Carvedilol (Carvedilol 12.5 Mg Tablet) 12.5 mg PO BID [facility] Last Admin: 02/04/21 19:50 Dose: 12.5 mg Documented by: Docusate Sodium (Docusate Sodium 100 Mg Capsule) 100 mg PO BID PRN PRN PRN Reason: Constipation Last Admin: 02/04/21 19:50 Dose: 100 mg Documented by: Escitalopram Oxalate (Escitalopram Oxalate 10 Mg Tablet) 10 mg PO DAILY [facility] Ferrous Sulfate (Ferrous Sulfate 325 Mg Tablet) 325 mg PO DAILY@1200 [facility] Furosemide (Furosemide 20 Mg Tablet) 60 mg PO DAILY [facility] Gabapentin (Gabapentin 100 Mg Capsule) 100 mg PO QHS [facility] Last Admin: 02/04/21 19:50 Dose: 100 mg Documented by: Hydralazine HCl (Hydralazine 25 Mg Tablet) 25 mg PO TID [facility] Last Admin: 02/05/21 05:06 Dose: 25 mg Documented by: Lactated Ringer's () 1,000 mls @ 80 mls/hr IV .[id number] [facility] Last Admin: 02/05/21 01:30 Dose: 80 mls/hr Documented by: Ampicillin Sodium/Sulbactam (Sodium 3 gm/ Sodium Chloride) 112 mls @ 150 mls/hr IV Q12 [facility] Last Infusion: 02/04/21 22:51 Dose: Infused Documented by: Vancomycin IV Pharmacy to Dose (1 each/ Sodium Chloride) 500 mls @ 250 mls/hr IV X1 PRN; Protocol PRN Reason: Rx to Dose Vancomycin HCl () 500 mg in 100 mls @ 100 mls/hr IV Q24H [facility] Insulin Glargine (Insulin Glargine 100 Units/Ml Pen) 15 units SC 1100,2200 [facility] Last Admin: 02/04/21 22:15 Dose: 15 u Documented by: Insulin Human Lispro (Insulin Lispro 100 Unit/Ml Insuln.Pen) 0 unit SC ACHS [facility]; Protocol Last Admin: 02/05/21 06:33 Dose: Not Given Documented by: Morphine Sulfate (Morphine 2 Mg/Ml Syringe) 2 mg IV Q2H PRN PRN PRN Reason: Pain Score 6-10 Last Admin: 02/04/21 23:31 Dose: 2 mg Documented by: Ondansetron HCl (Ondansetron 4 Mg/2 Ml Vial) 4 mg IV Q8H PRN PRN PRN Reason: NAUSEA/VOMITING Oxycodone HCl (Oxycodone 5 Mg Tablet) 5 mg PO Q4H PRN PRN PRN Reason: Pain Score 4-5 Last Admin: 02/04/21 22:06 Dose: 5 mg Documented by: Pantoprazole Sodium (Pantoprazole Sodium 40 Mg Tablet) 40 mg PO DAILY [facility] Polyethylene Glycol (Polyethylene Glycol 3350 17 Gm Packet) 17 gm PO DAILY [facility] Last Admin: 02/05/21 06:57 Dose: 17 gm Documented by: Sodium Chloride (0.9% Saline Lock 10 Ml Syringe) 10 - 40 ml IV UD PRN PRN Reason: SALINE FLUSH Tamsulosin HCl (Tamsulosin Hcl 0.4 Mg Capsule) 0.4 mg PO DAILY@1730 [facility] Last Admin: 02/04/21 17:00 Dose: 0.4 mg Documented by: Trazodone HCl (Trazodone 50 Mg Tablet) 50 mg PO QHS PRN PRN PRN Reason: SLEEP Last Admin: 02/04/21 22:06 Dose: 50 mg Documented by: Medical Necessity - Tobacco Use Smoking Status: Never smoker Tobacco Use: Non-smoker Assessment/Plan All Active Problems (Last Reviewed 01/25/21 @ 13:41 by Traci Gan PA, PA) History of angioplasty of peripheral vessel (Resolved 01/20/21) Colonization status (Ruled-out) H/O coronary artery bypass surgery (Resolved 04/30/14) Dizziness (Acute) Ventricular ectopy (Acute) Dyspnea (Resolved) Hypokalemia (Resolved) Incarcerated right inguinal hernia (Resolved) 1. Left foot ulcer with osteomyelitis status post left fifth ray resection 02/04/[address] Mandujano- management per podiatry. On IV Vanc and IV Unasyn. As needed pain regimen. PT/OT. ID following. 2. Urinary retention-Stovall placed last evening due to difficult straight cath. Initiated on Flomax. Will need voiding trial prior to discharge. 3. CAD with history of CABG/severe cardiomyopathy-echocardiogram March 2019 demonstrated an EF of 15%. Following as outpatient cardiology. Continue aspirin, statin, carvedilol, Lasix, hydralazine. Resume Plavix if okay per podiatry. 4. Type 2 diabetes [id number] with sliding scale insulin. Continue home Lantus regimen. 5. Hypertension-stable, continue carvedilol, Lasix, hydralazine. 6. Hyperlipidemia-continue statin. 7. Anemia of chronic disease-stable, trend CBC. 8. Chronic kidney disease stage IV-at baseline. DVT prophylaxis-SCDs, pharmacologic prophylaxis if approved per podiatry This patient was seen by CHAITANYA Mao under the supervision of Dr. Sanchez.
--- NOTE | 2021-02-05 10:23 | NURSING ---
Addendum entered and electronically signed by Heidi Alarcon 02/05/21 15:08: [id number]-Patient with current Celestin Catheter d/t retention. Will need trail void prior to DC. Patient may be Dc'd with celestin/leg bag. HH order for PT/OT, SN for wound care and celestin management placed for potential weekend discharge. In network list for DME placed on chart if patient requiring WC order. Call to [facility] at this time [phone], left to return call- inquire about acceptance if patient to discharge over weekend. GABRIELA Colmenares Original Note: RN CM Assessment Introduced role of RN CM to patient.? Patient is alert, oriented and able?to participate in RN CM Assessment. Sitting up in chair next to bedside. ?Care providers, pharmacy, and demographics verified. Admit Dx: Osteomyelitis, Lt foot Ulcer. S/p 5th ray resection 02/04/21 Re-Admit: No Barriers/Issues: None. Lives with whom he states can assist him. PCP: Saman Arenas Specialists: None [facility]acy[facility] Insurance: Maricarmen Isabel Rx Benefit:?Yes LNOK: Vicki Norr LW/HPOA: States believes he has completed and HPOA Vicki. Aware if brought in, copy can be scanned on file. Living Arrangements:? Lives with in a H, 2 steps to enter home. ADL?s: Ambulates with a single prong cane. Independent with bathing and dressing, assists with medication and meals. Transportation: Both and patient drive. [place] to transport upon DC. DME: [facility] HHC: None. In network list provided, preference [facility] if needed. Pending PT/OT evals SNF: None Goal: Home with . Denies any issues, questions, concerns or needs with DC planning at this time. DC PLAN: Home with and possible HH for PT/OT, Possible walker. RNCM to f/u. GABRIELA Colmenares
[2021-02-05] MEDS: Docusate Sodium 100 MG Capsule PO (10:29)
[2021-02-05] MEDS: oxyCODONE 5 MG Tablet PO ×2 (10:29→22:55)
[2021-02-05] MEDS: Carvedilol 12.5 MG Tablet PO ×2 (10:30→20:00)
[2021-02-05] MEDS: Pantoprazole Sodium 40 MG Tablet PO (10:30)
[2021-02-05] MEDS: Escitalopram Oxalate 10 MG Tablet PO (10:30)
[2021-02-05] MEDS: Furosemide 20 MG Tablet 60 MG PO (10:30)
[2021-02-05 13:01] LABS: Bedside Glucose 137 mg/dL (70-110)
[2021-02-05] MEDS: Ferrous Sulfate 325 MG Tablet PO (13:10)
[2021-02-05] MEDS: ALPRAZolam 0.25 MG Tablet 0.125 MG PO (13:10)
[2021-02-05] MEDS: Vancomycin IV 500 MG/100 ML BAG 100 MG IV (15:27)
[2021-02-05] MEDS: Tamsulosin HCl 0.4 MG Capsule 0.8 MG PO (17:27)
[2021-02-05] MEDS: QUEtiapine 25 MG Tablet 12.5 MG PO ×2 (17:27→20:03)
[2021-02-05 17:35] LABS: Bedside Glucose 134 mg/dL (70-110)
[2021-02-05] MEDS: Atorvastatin Calcium 80 MG Tablet PO (20:00)
[2021-02-05] MEDS: traZODone 50 MG Tablet PO (20:00)
[2021-02-05] MEDS: Aspirin 81 MG TAB.CHEW PO (20:01)
[2021-02-05] MEDS: Gabapentin 100 MG Capsule PO (20:01)
[2021-02-05] MEDS: Insulin Lispro 100 UNIT/ML INSULN.PEN SC (20:20)
--- NOTE | 2021-02-05 20:25 | NURSING ---
Pt extremely agitated since start of this shift, setting off chair alarm and bed exit. Wanting to get up constantly thinking he is at home. Multiple attempts to reorient pt. Pt kept getting up and pulling at celestin. Pt walked twice down the hallway even after multiple attempts to educate about the Drs orders to non weight bear. Tried to distract pt with newspaper and tv. Spoke with hospitalist who ordered another 12.5mg seroquel. Finally able to get pt to lay in bed after walking the hallways. Gave pt all his medications as pt starting to close his eyes. Encouraged pt to try sleep as reported he did not sleep last night and during the day today. When this nurse left pt's room pt was closing his eyes.
[2021-02-05 20:26] LABS: Bedside Glucose 214 mg/dL (70-110)
[2021-02-05] MEDS: Haloperidol Lactate 5 MG/ML Vial 1 MG IM (22:44)
[2021-02-06] MEDS: Lactated Ringers 1,000 ML 80 ML IV (03:14)
[2021-02-06 06:08] LABS: Absolute Lymphocyte Count 1.26 X10^3/uL (0.83-4.51); Absolute Neutrophil Count 10.7 X10^3/uL (2.0-7.7); Basophil# 0.03 X10^3/uL; Basophil% 0.2 % (0-1); Eosinophil# 0.08 X10^3/uL; Eosinophils% 0.6 % (0-5); Hematocrit 29.8 % (40-54); Hemoglobin 9.4 g/dL (13.0-16.5); Lymphocyte # 1.26 X10^3/ul (0.83-4.51); Lymphocyte % 9.4 % (19-41); Mean Corp Hgb Conc 31.5 g/dL (32-36); Mean Corpuscular Hgb 28.4 pg (27.0-32.0); Mean Platelet Vol. 10.3 fl (6.2-12.0); Monocyte# 1.29 X10^3/uL; Monocyte% 9.6 % (0-10); NRBC Flagged by Analyzer 0 % (0-5); Neutrophil # 10.65 X10^3/uL (2.7-7.7); Neutrophil % 79.8 % (47-70); Platelet Count 244 K/mm3 (150-450); RBC Distribution Width CV 13.7 % (11.6-14.6); RBC Distribution Width SD 45.4 fl (35.1-43.9); Red Blood Count 3.31 M/mm3 (4.6-6.2); White Blood Count 13.4 K/mm3 (4.4-11.0)
[2021-02-06 06:30] LABS: Anion Gap 4 (5-15); BUN 42 mg/dL (7-18); BUN/Creat Ratio 17.3 RATIO (10-20); Calcium,Total 8.5 mg/dL (8.5-10.1); Chloride 107 mmol/L (98-107); Creatinine, Serum 2.43 mg/dL (0.70-1.30); EST Glomerular Filtration Rate 28 mL/min (>60); Est Glom Filt Rate - Afr Amer 33 mL/min (>60); Estimated Creatinine Clearance 21.32 ml/min; Glucose 81 mg/dL (74-106); Sodium Level 138 mmol/L (136-145)
[2021-02-06 07:29] VITALS: BP 123/55; PULSE 77; RESP 16; TEMP 36.9; O2SAT 95
[2021-02-06 07:39] VITALS: PULSE 77
[2021-02-06] MEDS: Carvedilol 12.5 MG Tablet PO (07:39)
[2021-02-06] MEDS: Pantoprazole Sodium 40 MG Tablet PO (07:39)
[2021-02-06] MEDS: Polyethylene Glycol 3350 17 GM PACKET PO (07:39)
[2021-02-06] MEDS: Escitalopram Oxalate 10 MG Tablet PO (07:39)
[2021-02-06] MEDS: hydrALAZINE 25 MG Tablet PO (07:39)
[2021-02-06] MEDS: Furosemide 20 MG Tablet 60 MG PO (07:39)
[2021-02-06] MEDS: oxyCODONE 5 MG Tablet PO (07:42)
[2021-02-06 07:56] LABS: Bedside Glucose 80 mg/dL (70-110)
--- NOTE | 2021-02-06 09:52 | DCINST_ITS ---
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) You will use the following diet at home:: Calorie/Carbohydrate Controlled (specify 1200, 1400, etc), Cardiac Discharge Activity: Return to Normal Activity Weight Bearing Status: No weight bearing - Left lower extremity, may heel weight-bear only Call your doctor if your incision/area has: Continuous Slow Oozing, Sudden Increased Bleeding, Increased Pain/ Swelling, Increased Redness, Foul Smelling Discharge, Swelling at the incision site Call your doctor if you observe: Fever of 101 or Higher, Shortness of breath, Dizziness, Fainting spells, Chest pain Additional Instructions: Leave dressing in place until follow up with podiatry. Allergies/Adverse Reactions: Allergies No Known Allergies Allergy (Verified 02/04/21 06:24) Medications to take at Discharge Aspirin [Aspirin, Baby] 81 mg PO DAILY@0800 09/29/14 pantoprazole 40 mg tablet,delayed release 40 mg PO DAILY 30 Days #30 tablet 02/07/18 Ferrous Sulfate [Iron] 325 mg PO DAILY@1200 03/19/19 carvedilol 12.5 mg tablet 12.5 mg PO BID #180 tablet 01/14/20 atorvastatin 80 mg tablet 80 mg PO QHS #90 tablet 04/14/20 escitalopram oxalate 10 mg tablet 10 mg PO DAILY 30 Days #60 tablet 07/13/20 furosemide 20 mg tablet 60 mg PO DAILY 90 Days #270 tablet 09/20/20 Insulin Glargine,Hum.rec.anlog [Lantus Solostar] 12.5 unit SQ BID 09/22/20 traZODone [Desyrel] 50 mg PO QHS PRN 09/22/20 hydralazine 25 mg tablet 25 mg PO TID #270 tablet 10/21/20 Gabapentin [Neurontin] 100 mg PO QHS 12/22/20 Clopidogrel Bisulfate [Clopidogrel] 75 mg PO 02/04/21 Amox/Clavulanate Tablet [Augmentin Tablet] 500 mg PO Q12H #42 tab 02/06/21 Ciprofloxacin [Cipro] 500 mg PO DAILY #21 tab 04/25/21 Tamsulosin HCl [Flomax] 0.8 mg PO DAILY@1730 #60 capsule 02/06/21 The following prescriptions were given: Amox/Clavulanate Tablet [Augmentin Tablet] 500 mg PO Q12H #42 tab Transmission Status: Pending to [facility] #30 Ciprofloxacin [Cipro] 500 mg PO DAILY #21 tab Transmission Status: Pending to [facility] #30 Tamsulosin HCl [Flomax] 0.8 mg PO DAILY@1730 #60 capsule Transmission Status: Pending to [facility] #30 Primary Care Physician: Saman Arenas MD [Primary Care Provider] - Please follow up with your Primary Care Physician in: 1 Week Test Results: Test results from this visit will be discussed in further detail at your follow- up appointment, if applicable. Please Follow Up With: Aleyda Mandujano DPM When: 3-5 Days Proposed Discharge Date: 02/06/21 - Home with home health
--- NOTE | 2021-02-06 09:59 | PCM.PROGNOTE ---
Subjective: Patient was seen this morning for follow up on left foot. Patient has been walking on foot. He had celestin removed this morning. Patient afebrile, no complaints at this time. - Physical Exam Vitals/I&O's: Vital Signs Temp Pulse Resp BP Pulse Ox 98.4 F 77 16 123/55 H 95 02/06/21 07:29 02/06/21 07:39 02/06/21 07:29 02/06/21 07:29 02/06/21 07:29 Oxygen Delivery Method Room Air Weight: 62.3 kg Body Mass Index (BMI) 23.6 Finger Stick Blood Glucose 163 Intake and Output for Last 24 Hours 02/04/21 02/05/21 02/06/21 23:59 23:59 23:59 Intake Total 1560 / 1560 3321.33 / 3671.33 1212.67 / 1212.67 Output Total 2850 / 2850 1400 / 1875 675 / 675 Balance -1290 / -1290 1921.33 / 1796.33 537.67 / 537.67 General: Alert, No apparent distress Extremities: Capillary Refill Less than 3 Seconds, No Calf Tenderness, - - s/p 5th ray resection left foot without evidence of complication, no acute ischemia noted to the left foot, incision site well coapted, sutures intact, no dehiscence, no cellulitis, no malodor, no necrosis, no flucutuance, no crepitus, no break down noted. Microbiology Past 72 Hours 02/04/21 08:05 Tissue - Clearance Fragment Gram Stain - Final 02/04/21 08:05 Tissue - Clearance Fragment Wound Culture - Preliminary Gram negative stevo 02/04/21 08:01 Tissue - 5th Metatarsal Bone Gram Stain - Final 02/04/21 08:01 Tissue - 5th Metatarsal Bone Wound Culture - Preliminary GNR lactose validation intern 02/03/21 09:41 Interface Orders SARS-CoV-2 Antigen (Rapid) - Final Laboratory Results 02/05/21 12:20: POC Glucose 137 H 02/05/21 17:30: POC Glucose 134 H 02/05/21 20:17: POC Glucose 214 H 02/06/21 06:03: WBC 13.4 H, RBC 3.31 L, Hgb 9.4 L, Hct 29.8 L, MCV 90.0, MCH 28.4, MCHC 31.5 L, RDW Std Deviation 45.4 H, RDW Coeff of Milad 13.7, Plt Count 244, MPV 10.3, Immature Gran % (Auto) 0.400, Neut % (Auto) 79.8 H, Lymph % (Auto) 9.4 L, Story % (Auto) 9.6, Eos % (Auto) 0.6, Baso % (Auto) 0.2, Absolute Neuts (auto) 10.7 H, Absolute Lymphs (auto) 1.26, Nucleated RBC % 0 02/06/21 06:03: Sodium 138, Potassium 4.0, Chloride 107, Carbon Dioxide 27.0, Anion Gap 4 L, BUN 42 H, Creatinine 2.43 H, Estim Creat Clear Calc 21.32, Est GFR (MDRD) Af Amer 33 L, Est GFR (MDRD) Non-Af 28 L, BUN/Creatinine Ratio 17.3, Glucose 81, Calcium 8.5 02/06/21 07:37: POC Glucose 80 Current Medications Al Hydroxide/Mg Hydroxide (Mag Hydrox/Al Hydrox/Simeth 30 Ml Udc) 30 ml PO Q6H PRN PRN PRN Reason: Gastric Burning Aspirin (Aspirin 81 Mg Tab.Chew) 81 mg PO QHS [facility] Last Admin: 02/05/21 20:01 Dose: 81 mg Documented by: Atorvastatin Calcium (Atorvastatin Calcium 80 Mg Tablet) 80 mg PO QHS [facility] Last Admin: 02/05/21 20:00 Dose: 80 mg Documented by: Bisacodyl (Bisacodyl 5 Mg Tablet) 10 mg PO DAILY PRN PRN PRN Reason: Constipation Carvedilol (Carvedilol 12.5 Mg Tablet) 12.5 mg PO BID [facility] Last Admin: 02/06/21 07:39 Dose: 12.5 mg Documented by: Docusate Sodium (Docusate Sodium 100 Mg Capsule) 100 mg PO BID PRN PRN PRN Reason: Constipation Last Admin: 02/05/21 10:29 Dose: 100 mg Documented by: Escitalopram Oxalate (Escitalopram Oxalate 10 Mg Tablet) 10 mg PO DAILY [facility] Last Admin: 02/06/21 07:39 Dose: 10 mg Documented by: Ferrous Sulfate (Ferrous Sulfate 325 Mg Tablet) 325 mg PO DAILY@1200 [facility] Last Admin: 02/05/21 13:10 Dose: 325 mg Documented by: Furosemide (Furosemide 20 Mg Tablet) 60 mg PO DAILY [facility] Last Admin: 02/06/21 07:39 Dose: 60 mg Documented by: Gabapentin (Gabapentin 100 Mg Capsule) 100 mg PO QHS [facility] Last Admin: 02/05/21 20:01 Dose: 100 mg Documented by: Haloperidol Lactate (Haloperidol Lactate 5 Mg/Ml Vial) 1 mg IM Q4H PRN PRN PRN Reason: SEVERE AGITATION Hydralazine HCl (Hydralazine 25 Mg Tablet) 25 mg PO TID [facility] Last Admin: 02/06/21 07:39 Dose: 25 mg Documented by: Lactated Ringer's () 1,000 mls @ 80 mls/hr IV .[id number] [facility] Last Admin: 02/06/21 03:14 Dose: 80 mls/hr Documented by: Ampicillin Sodium/Sulbactam (Sodium 3 gm/ Sodium Chloride) 112 mls @ 150 mls/hr IV Q12 [facility] Last Infusion: 02/05/21 21:47 Dose: Infused Documented by: Vancomycin IV Pharmacy to Dose (1 each/ Sodium Chloride) 500 mls @ 250 mls/hr IV X1 PRN; Protocol PRN Reason: Rx to Dose Vancomycin HCl () 500 mg in 100 mls @ 100 mls/hr IV Q24H [facility] Last Infusion: 02/05/21 16:27 Dose: Infused Documented by: Insulin Glargine (Insulin Glargine 100 Units/Ml Pen) 15 units SC 1100,2200 [facility] Last Admin: 02/05/21 20:19 Dose: 15 u Documented by: Insulin Human Lispro (Insulin Lispro 100 Unit/Ml Insuln.Pen) 0 unit SC ACHS [facility]; Protocol Last Admin: 02/06/21 07:37 Dose: Not Given Documented by: Morphine Sulfate (Morphine 2 Mg/Ml Syringe) 2 mg IV Q2H PRN PRN PRN Reason: Pain Score 6-10 Last Admin: 02/04/21 23:31 Dose: 2 mg Documented by: Ondansetron HCl (Ondansetron 4 Mg/2 Ml Vial) 4 mg IV Q8H PRN PRN PRN Reason: NAUSEA/VOMITING Oxycodone HCl (Oxycodone 5 Mg Tablet) 5 mg PO Q4H PRN PRN PRN Reason: Pain Score 4-5 Last Admin: 02/06/21 07:42 Dose: 5 mg Documented by: Pantoprazole Sodium (Pantoprazole Sodium 40 Mg Tablet) 40 mg PO DAILY [facility] Last Admin: 02/06/21 07:39 Dose: 40 mg Documented by: Polyethylene Glycol (Polyethylene Glycol 3350 17 Gm Packet) 17 gm PO DAILY [facility] Last Admin: 02/06/21 07:39 Dose: 17 gm Documented by: Sodium Chloride (0.9% Saline Lock 10 Ml Syringe) 10 - 40 ml IV UD PRN PRN Reason: SALINE FLUSH Tamsulosin HCl (Tamsulosin Hcl 0.4 Mg Capsule) 0.8 mg PO DAILY@1730 [facility] Last Admin: 02/05/21 17:27 Dose: 0.8 mg Documented by: Trazodone HCl (Trazodone 50 Mg Tablet) 50 mg PO QHS PRN PRN PRN Reason: SLEEP Last Admin: 02/05/21 20:00 Dose: 50 mg Documented by: Medical Necessity - Tobacco Use Smoking Status: Never smoker Tobacco Use: Non-smoker Assessment/Plan All Active Problems (Last Reviewed 01/25/21 @ 13:41 by Traci Gan PA, PA) History of angioplasty of peripheral vessel (Resolved 01/20/21) Colonization status (Ruled-out) H/O coronary artery bypass surgery (Resolved 04/30/14) Dizziness (Acute) Ventricular ectopy (Acute) Dyspnea (Resolved) Hypokalemia (Resolved) Incarcerated right inguinal hernia (Resolved) Postoperative day #2 left fifth ray resection for treatment of osteomyelitis Recent peripheral vascular disease intervention with balloon angioplasty of the distal popliteal, SFA Uncontrolled diabetes with A1c now reduced to 7.5% Other comorbidities: stage IV renal failure, GERD, hypertension, hyperlipidemia, coronary artery disease with EF 15% (previously declined ICD) Malnutrition suspected Delayed healing Reviewed data. He is afebrile vital signs are stable. His dressing was changed with and there is no local signs of infection or william necrosis noted at the surgical site. Applied clean, dry, sterile gauze and kerlix dressing. Sean wrap and surgical shoe were not applied to alleviate pressure to the surgical incision site. Infectious diseases on consult and greatly appreciated. He is on IV antibiotics at this time, with plan to transition to oral antibiotics. Intraoperative clearance fragments were sent to both pathology microbiology and these results are pending. Continue plavix; post operative vascular surgery. He was advised to maintain a nonweightbearing status to the left lower extremity and only heel weight-bear. Ok to heel weightbear occasionally for transfers with surgical shoe. Hospitalist on consultation for medical management and DVT prophylaxis recommendations. D/C home likely today.
--- NOTE | 2021-02-06 10:00 | PN_ITS ---
Subjective: Patient seen and examined. Nursing reports confusion overnight. Improved at this morning. Discussed with ID, plan for DC home on oral antibiotics. - Physical Exam Vitals/I&O's: Vital Signs Temp Pulse Resp BP Pulse Ox 98.4 F 77 16 123/55 H 95 02/06/21 07:29 02/06/21 07:39 02/06/21 07:29 02/06/21 07:29 02/06/21 07:29 Oxygen Delivery Method Room Air Weight: 137 lb 5.568 oz Body Mass Index (BMI) 23.6 Finger Stick Blood Glucose 163 Intake and Output for Last 24 Hours 02/04/21 02/05/21 02/06/21 23:59 23:59 23:59 Intake Total 1560 / 1560 3321.33 / 3671.33 1212.67 / 1212.67 Output Total 2850 / 2850 1400 / 1875 675 / 675 Balance -1290 / -1290 1921.33 / 1796.33 537.67 / 537.67 General: Alert, Oriented x3, Cooperative HEENT: Atraumatic, PERRLA, EOMI, Normocephalic Neck: Supple, No JVD, Negative Carotid Bruits Lungs: Clear to auscultation, Normal air movement Cardiovascular: Regular rate, No murmurs Abdomen: Bowel Sounds Present, Soft, Non Tender, Non-Distended Extremities: No clubbing, No cyanosis, No edema, Capillary Refill Less than 3 Seconds Skin: No rashes, No breakdown, - - Left foot postop dressing intact Musculoskeletal: No Tenderness to Palpation of Joints or Extremities Neurological: Cranial nerves II-XII grossly intact, Neuro grossly intact Psych/Mental Status: Normal Affect, Appropriate Microbiology Past 72 Hours 02/04/21 08:05 Tissue - Clearance Fragment Gram Stain - Final 02/04/21 08:05 Tissue - Clearance Fragment Wound Culture - Preliminary Gram negative stevo 02/04/21 08:01 Tissue - 5th Metatarsal Bone Gram Stain - Final 02/04/21 08:01 Tissue - 5th Metatarsal Bone Wound Culture - Preliminary GNR lactose business relationship manager 02/03/21 09:41 Interface Orders SARS-CoV-2 Antigen (Rapid) - Final Laboratory Results 02/05/21 12:20: POC Glucose 137 H 02/05/21 17:30: POC Glucose 134 H 02/05/21 20:17: POC Glucose 214 H 02/06/21 06:03: WBC 13.4 H, RBC 3.31 L, Hgb 9.4 L, Hct 29.8 L, MCV 90.0, MCH 28.4, MCHC 31.5 L, RDW Std Deviation 45.4 H, RDW Coeff of Milad 13.7, Plt Count 244, MPV 10.3, Immature Gran % (Auto) 0.400, Neut % (Auto) 79.8 H, Lymph % (Auto) 9.4 L, [place] % (Auto) 9.6, Eos % (Auto) 0.6, Baso % (Auto) 0.2, Absolute Neuts (auto) 10.7 H, Absolute Lymphs (auto) 1.26, Nucleated RBC % 0 02/06/21 06:03: Sodium 138, Potassium 4.0, Chloride 107, Carbon Dioxide 27.0, Anion Gap 4 L, BUN 42 H, Creatinine 2.43 H, Estim Creat Clear Calc 21.32, Est GFR (MDRD) Af Amer 33 L, Est GFR (MDRD) Non-Af 28 L, BUN/Creatinine Ratio 17.3, Glucose 81, Calcium 8.5 02/06/21 07:37: POC Glucose 80 Current Medications Al Hydroxide/Mg Hydroxide (Mag Hydrox/Al Hydrox/Simeth 30 Ml Udc) 30 ml PO Q6H PRN PRN PRN Reason: Gastric Burning Aspirin (Aspirin 81 Mg Tab.Chew) 81 mg PO QHS [facility] Last Admin: 02/05/21 20:01 Dose: 81 mg Documented by: Atorvastatin Calcium (Atorvastatin Calcium 80 Mg Tablet) 80 mg PO QHS [facility] Last Admin: 02/05/21 20:00 Dose: 80 mg Documented by: Bisacodyl (Bisacodyl 5 Mg Tablet) 10 mg PO DAILY PRN PRN PRN Reason: Constipation Carvedilol (Carvedilol 12.5 Mg Tablet) 12.5 mg PO BID [facility] Last Admin: 02/06/21 07:39 Dose: 12.5 mg Documented by: Docusate Sodium (Docusate Sodium 100 Mg Capsule) 100 mg PO BID PRN PRN PRN Reason: Constipation Last Admin: 02/05/21 10:29 Dose: 100 mg Documented by: Escitalopram Oxalate (Escitalopram Oxalate 10 Mg Tablet) 10 mg PO DAILY [facility] Last Admin: 02/06/21 07:39 Dose: 10 mg Documented by: Ferrous Sulfate (Ferrous Sulfate 325 Mg Tablet) 325 mg PO DAILY@1200 [facility] Last Admin: 02/05/21 13:10 Dose: 325 mg Documented by: Furosemide (Furosemide 20 Mg Tablet) 60 mg PO DAILY [facility] Last Admin: 02/06/21 07:39 Dose: 60 mg Documented by: Gabapentin (Gabapentin 100 Mg Capsule) 100 mg PO QHS [facility] Last Admin: 02/05/21 20:01 Dose: 100 mg Documented by: Haloperidol Lactate (Haloperidol Lactate 5 Mg/Ml Vial) 1 mg IM Q4H PRN PRN PRN Reason: SEVERE AGITATION Hydralazine HCl (Hydralazine 25 Mg Tablet) 25 mg PO TID [facility] Last Admin: 02/06/21 07:39 Dose: 25 mg Documented by: Lactated Ringer's () 1,000 mls @ 80 mls/hr IV .[id number] [facility] Last Admin: 02/06/21 03:14 Dose: 80 mls/hr Documented by: Ampicillin Sodium/Sulbactam (Sodium 3 gm/ Sodium Chloride) 112 mls @ 150 mls/hr IV Q12 [facility] Last Infusion: 02/05/21 21:47 Dose: Infused Documented by: Vancomycin IV Pharmacy to Dose (1 each/ Sodium Chloride) 500 mls @ 250 mls/hr IV X1 PRN; Protocol PRN Reason: Rx to Dose Vancomycin HCl () 500 mg in 100 mls @ 100 mls/hr IV Q24H [facility] Last Infusion: 02/05/21 16:27 Dose: Infused Documented by: Insulin Glargine (Insulin Glargine 100 Units/Ml Pen) 15 units SC 1100,2200 [facility] Last Admin: 02/05/21 20:19 Dose: 15 u Documented by: Insulin Human Lispro (Insulin Lispro 100 Unit/Ml Insuln.Pen) 0 unit SC ACHS [facility]; Protocol Last Admin: 02/06/21 07:37 Dose: Not Given Documented by: Morphine Sulfate (Morphine 2 Mg/Ml Syringe) 2 mg IV Q2H PRN PRN PRN Reason: Pain Score 6-10 Last Admin: 02/04/21 23:31 Dose: 2 mg Documented by: Ondansetron HCl (Ondansetron 4 Mg/2 Ml Vial) 4 mg IV Q8H PRN PRN PRN Reason: NAUSEA/VOMITING Oxycodone HCl (Oxycodone 5 Mg Tablet) 5 mg PO Q4H PRN PRN PRN Reason: Pain Score 4-5 Last Admin: 02/06/21 07:42 Dose: 5 mg Documented by: Pantoprazole Sodium (Pantoprazole Sodium 40 Mg Tablet) 40 mg PO DAILY [facility] Last Admin: 02/06/21 07:39 Dose: 40 mg Documented by: Polyethylene Glycol (Polyethylene Glycol 3350 17 Gm Packet) 17 gm PO DAILY [facility] Last Admin: 02/06/21 07:39 Dose: 17 gm Documented by: Sodium Chloride (0.9% Saline Lock 10 Ml Syringe) 10 - 40 ml IV UD PRN PRN Reason: SALINE FLUSH Tamsulosin HCl (Tamsulosin Hcl 0.4 Mg Capsule) 0.8 mg PO DAILY@1730 [facility] Last Admin: 02/05/21 17:27 Dose: 0.8 mg Documented by: Trazodone HCl (Trazodone 50 Mg Tablet) 50 mg PO QHS PRN PRN PRN Reason: SLEEP Last Admin: 02/05/21 20:00 Dose: 50 mg Documented by: Medical Necessity - Tobacco Use Smoking Status: Never smoker Tobacco Use: Non-smoker Assessment/Plan All Active Problems (Last Reviewed 01/25/21 @ 13:41 by Traci GARCIA, PA) History of angioplasty of peripheral vessel (Resolved 01/20/21) Colonization status (Ruled-out) H/O coronary artery bypass surgery (Resolved 04/30/14) Dizziness (Acute) Ventricular ectopy (Acute) Dyspnea (Resolved) Hypokalemia (Resolved) Incarcerated right inguinal hernia (Resolved) 1. Left foot ulcer with osteomyelitis status post left fifth ray resection 02/04/[address] Mandujano- management per podiatry. ID consulted during admission. Plan for discharge on Cipro 500 mg daily for 3 weeks and Augmentin 500 mg twice daily for 3 weeks with further outpatient follow-up with podiatry. Home with home health/PT/OT at discharge. 2. Urinary retention-continue Flomax at discharge. Voiding trial prior to discharge. 3. CAD with history of CABG/severe cardiomyopathy-echocardiogram March 2019 demonstrated an EF of 15%. Following as outpatient cardiology. Continue aspirin, statin, carvedilol, Lasix, hydralazine, Plavix. 4. Type 2 diabetes mellitus-continue home regimen. 5. Hypertension-stable, continue carvedilol, Lasix, hydralazine. 6. Hyperlipidemia-continue statin. 7. Anemia of chronic disease-stable, trend CBC. 8. Chronic kidney disease stage IV-at baseline. DVT prophylaxis-SCDs This patient was seen by CHAITANYA Mao under the supervision of Dr. Sanchez.
--- NOTE | 2021-02-06 10:05 | DCINST_ITS ---
Discharge Activity: Return to Normal Activity, Use Walker Weight Bearing Status: No weight bearing - No weightbearing left foot, but may use heel only for transitions. Call your doctor if your incision/area has: Continuous Slow Oozing, Sudden Increased Bleeding, Increased Pain/ Swelling, Increased Redness, Foul Smelling Discharge, Swelling at the incision site Call your doctor if you observe: Fever of 101 or Higher, Shortness of breath, Dizziness, Fainting spells, Chest pain Cleanse incision/area with: Do not get Incision Wet, Keep Dressing Clean & Dry - Keep dressing/bandage left foot clean, dry and intact until you see Dr. Mandujano in office this coming week. Allergies/Adverse Reactions: Allergies No Known Allergies Allergy (Verified 02/04/21 06:24) Medications to take at Discharge Aspirin [Aspirin, Baby] 81 mg PO DAILY@0800 09/29/14 pantoprazole 40 mg tablet,delayed release 40 mg PO DAILY 30 Days #30 tablet 02/07/18 Ferrous Sulfate [Iron] 325 mg PO DAILY@1200 03/19/19 carvedilol 12.5 mg tablet 12.5 mg PO BID #180 tablet 01/14/20 atorvastatin 80 mg tablet 80 mg PO QHS #90 tablet 04/14/20 escitalopram oxalate 10 mg tablet 10 mg PO DAILY 30 Days #60 tablet 07/13/20 furosemide 20 mg tablet 60 mg PO DAILY 90 Days #270 tablet 09/20/20 Insulin Glargine,Hum.rec.anlog [Lantus Solostar] 12.5 unit SQ BID 09/22/20 traZODone [Desyrel] 50 mg PO QHS PRN 09/22/20 hydralazine 25 mg tablet 25 mg PO TID #270 tablet 10/21/20 Gabapentin [Neurontin] 100 mg PO QHS 12/22/20 Clopidogrel Bisulfate [Clopidogrel] 75 mg PO 02/04/21 Amox/Clavulanate Tablet [Augmentin Tablet] 500 mg PO Q12H #42 tab 02/06/21 Ciprofloxacin [Cipro] 500 mg PO DAILY #21 tab 02/06/21 Tamsulosin HCl [Flomax] 0.8 mg PO DAILY@1730 #60 capsule 02/06/21 The following prescriptions were given: Amox/Clavulanate Tablet [Augmentin Tablet] 500 mg PO Q12H #42 tab Transmission Status: Received by [facility] #30 Ciprofloxacin [Cipro] 500 mg PO DAILY #21 tab Transmission Status: Received by [facility] #30 Tamsulosin HCl [Flomax] 0.8 mg PO DAILY@1730 #60 capsule Transmission Status: Received by [facility] #30 Primary Care Physician: Saman Arenas MD [Primary Care Provider] - Please follow up with your Primary Care Physician in: 1 Week Test Results: Test results from this visit will be discussed in further detail at your follow- up appointment, if applicable. Please Follow Up With: Aleyda Mandujano DPM - Please call office [phone] on Sunday to schedule appointment for Sunday When: on Sunday02/08/2021 at the [facility] Proposed Discharge Date: 02/06/21 - Home with home health
[2021-02-06] MEDS: Insulin Lispro 100 UNIT/ML INSULN.PEN SC (12:21)
[2021-02-06] MEDS: Ferrous Sulfate 325 MG Tablet PO (12:21)
[2021-02-06 12:30] LABS: Bedside Glucose 151 mg/dL (70-110)
[2021-02-06 13:31] VITALS: BP 117/49; PULSE 80; RESP 16; TEMP 36.7; O2SAT 95
[2021-02-07 11:51] LABS: Pathologist Review Reviewed
--- NOTE | 2021-02-07 15:17 | CASEMGMT ---
RAHEEL CANTU received call that [facility] was unable to accept the patient. RAHEEL CANTU called patient and spoke with . states that patient is doing well and feel that they do not need HHC at this time. Patient has appt with 4th grade teacher tomorrow. RAHEEL CANTU updated that should the reconsider HHC they can follow-up with PCP. voiced understanding and had no further questions at this time.
== END 2021-02-06 13:55 | disposition home or self-care (01) | DRG 616 ==
LOC: ACINP 09:10 → SDC 09:12 → MS3 09:12
PROVIDERS: Family Medicine; Nurse Practitioner Family; Admitting Provider Podiatrist; PCP Family Medicine; Referring Provider Podiatrist; Visit Provider Podiatrist
DX: E11.621 Type 2 diabetes mellitus with foot ulcer (principal); I50.23 Acute on chronic systolic (congestive) heart failure; E43 Unspecified severe protein-calorie malnutrition; I13.0 Hypertensive heart and chronic kidney disease with heart failure and stage 1 through stage 4 chronic kidney disease, or unspecified chronic kidney disease; M86.172 Other acute osteomyelitis, left ankle and foot; M86.672 Other chronic osteomyelitis, left ankle and foot; I25.810 Atherosclerosis of coronary artery bypass graft(s) without angina pectoris; E11.69 Type 2 diabetes mellitus with other specified complication; E78.5 Hyperlipidemia, unspecified; D63.1 Anemia in chronic kidney disease; N18.4 Chronic kidney disease, stage 4 (severe); L97.524 Non-pressure chronic ulcer of other part of left foot with necrosis of bone; M20.42 Other hammer toe(s) (acquired), left foot; M21.622 Bunionette of left foot; E11.51 Type 2 diabetes mellitus with diabetic peripheral angiopathy without gangrene; E11.40 Type 2 diabetes mellitus with diabetic neuropathy, unspecified; E11.65 Type 2 diabetes mellitus with hyperglycemia; E11.22 Type 2 diabetes mellitus with diabetic chronic kidney disease; I25.5 Ischemic cardiomyopathy; I27.21 Secondary pulmonary arterial hypertension; I45.10 Unspecified right bundle-branch block; K21.9 Gastro-esophageal reflux disease without esophagitis; R33.9 Retention of urine, unspecified; I25.10 Atherosclerotic heart disease of native coronary artery without angina pectoris; Z95.1 Presence of aortocoronary bypass graft; Z79.82 Long term (current) use of aspirin; Z79.02 Long term (current) use of antithrombotics/antiplatelets; Z79.4 Long term (current) use of insulin; Z79.899 Other long term (current) drug therapy
CPT/HCPCS: 11042; 36415; 73620; 73630; 76000; 80048; 80053; 82962; 83036; 85025; 87015; 87070; 87075; 87077; 87102; 87116; 87176; 87186; 87205; 87206; 87426; 88304; 88305; 88311; 97110; 97116; 97162; 97166; 97530; 97802; C9803; J7040; J7120; J0295; J1940

== ENCOUNTER 2021-03-02 14:15 | Outpatient (RCR) | payer MEDICARE, SELFPAY ==
[2021-02-04 10:20] VITALS: BMI 23.6
[2021-02-12 00:38] VITALS: BP 136/82; PULSE 71; RESP 20; TEMP 36.8
[2021-02-23 13:58] VITALS: BP 128/41; PULSE 69; RESP 16; TEMP 36.1; BMI 23.6
--- NOTE | 2021-02-23 16:34 | PCM.WC.PN ---
History of Present Illness Date of Service: 02/23/21 Chief Complaint: Left foot ulcer History of Wound: This 75-year-old male was seen for left foot ulcer return to the wound healing center today. He had recent lower extremity vascular successful intervention performed with Dr. Bowens. He relates he has improved warmth and sensation to his left foot. It is noted he has a low ejection fraction and also small vessel disease is suspected. I performed a fifth ray resection of the left foot at [facility] on 02/04/2021 for treatment of nonhealing ulcer and osteomyelitis. His sutures are still in place and there is some gapping his noted. He has been changing the dressing as advised with Dakins solution. He wears offloading surgical shoe. He is with his today. He completed a course of augmentin and cipro. He was seen by infectious disease during his last hospital admission. Progress of Wound: Worsening status Objective Data Objective Data Vital Signs: Vital Signs Temp Pulse Resp BP 97.0 F L 69 16 128/41 H 02/23/21 13:58 02/23/21 13:58 02/23/21 13:58 02/23/21 13:58 Weight: 60.781 kg Body Mass Index (BMI) 23.6 Finger Stick Blood Glucose 163 Assessment & Plan Assessment/Plan (1) Peripheral vascular occlusive disease: (2) Ulcer of left foot with fat layer exposed: (3) History of angioplasty of peripheral vessel: (4) Diabetes mellitus with neuropathy: (5) Delayed wound healing: PLAN: I reviewed and discussed his plan. Debridement was performed today as noted. He was advised to change his dressing daily with Santyl applied nickel thickness. To change his daily wash with antibacterial soap and water. To avoid soaking activities. He was previously diagnosed with osteomyelitis and underwent a fifth ray resection of the left foot at [facility] on 02-04-21. The diagnosis was confirmed with pathological acute osteomyelitis. The clearance fragment that was sent to pathology was negative for acute osteomyelitis. The clearance fragment that was sent to microbiology did not demonstrate some E. coli growth. He was discharged home from the hospital on oral Augmentin and Cipro. He was seen by infectious disease while in the hospital setting. He was advised to follow-up as scheduled and to confirm follow-up date and time. Previous labs were reviewed. Hemoglobin A1c on 02-05-21 was 7.5%. On 01-27-21 his ESR was 38 and C-reactive protein was 14.5. On 02-06-21 his white blood cell count was 13.4. Serial labs will be monitored. I recommend continued offloading surgical site areas with a surgical shoe. To try to keep mostly weight on the heel. I previously fabricated dual density offloading liners today to take additional pressure off of the ulcer site. I recommend nutritional supplementation optimize healing including Neri nutritional supplement pack daily. It is also noted that his A1c is still elevated which also does not have a good healing outcome. I advised him on continued improved diabetic control. Note: [employer] speech recognition binitrotoluene operator software was used to create portions of this document. Sound-alike and misspelled words, as well as other binitrotoluene operator errors may be contained in the documentation. 20 was spent on this encounter. This included face to face and non face to face care including preparing for the visit, reviewing the history, performing the exam, counseling and providing education to the patient, family, or caregiver, ordering medications/test/ procedures if indicated as documented, communicating with other healthcare providers, documenting information in the medical record, interpreting / sharing this information when indicated as documented, and care coordination. ---- 2020: meds/allergies reconciled and reviewed. Blood pressure 128/40 which is slightly elevated. to follow up w/ pcp and diet and activity were reviewed for wound healing and health. Physical Exam Const alert and oriented x3 General Appearance: cooperative HEENT normocephalic Extremity Extremity Narrative: No calf tenderness Diminished pulses Muscle wasting noted fifth ray resection left foot No adjacent bogginess, fluctuance or crepitus General Extremity: edema and no tenderness to palpation of joints or extremities; Negative for cyanosis Skin Skin Narrative: no purulence, no streaking, no odor, no infection Sutures intact and coapted with incisional healing at the distal and proximal aspect. The central aspect with gapping with fibrosis and granulation tissue. No direct exposure to bone. Incisional eschar noted General Skin Exam: Negative for erythema Neuro Neuro Narrative: lack of normal epicritic sensation via light touch is consistent with neuropathy status Psych cooperative and affect normal Debridement Note Debridement Note Post-Debridement Measurements and Additional Note: Post-Debridement Measurements/Treatment ALFREDO - Nurse 1 - General Ulcer Assessment Start: 02/23/21 13:58 Freq: Status: Active Protocol: WC.LOWEXT Activity Type Activity Date Activity User E-Sign Co-Sign Detail Recorded Client Recorded Date Recorded By Document 02/23/21 13:58 MS [id number] 02/23/21 14:00 MS 02/23/21 13:58 WC - Today's Visit Information Type of service Follow-up Visit (Physician/RESEARCH PROGRAM COORDINATOR ) Arrival Mode Ambulatory Patient Identification Verified (Name & Yes ) Patient Requires Transmission-Based No Precautions Safety Precautions NA Finger Stick Blood Sugar(mg/dl) (if 98 indicated): Blood Sugar Stated by Patient Height and Weight Body Mass Index (BMI) 23.6 BMI Classification Normal Vital Signs Temperature (97.8 F-99.1 F) 97.0 F L Temperature Source Temporal Pulse Rate (60-100) 69 Pulse Location Monitor Respiratory Rate (12-18) 16 Respiratory rate source Observation Blood Pressure (90/60-120/80) 128/41 H Blood Pressure Mean (mm Hg) 70 Source Monitor Position Sitting Blood Pressure Location Left Arm History Since Last Visit- (Skip if this is Patient's initial visit) Have you changed medications since your No last visit? Any new allergies or adverse reactions No Had a fall/change in ADL's that may No increase risk of falls Signs or symptoms of abuse and/or No neglect since last visit Have you been in the hospital since your No last visit? Has dressing in place as prescribed Yes Has compression in place as prescribed N/A Has offloadiing in place as prescribed N/A Experienced any changes in pain level or No management Left Footwear Surgical Shoe with pressure relief insole Right Footwear Surgical Shoe with pressure relief insole Pain Scale: 0-10 Numeric Is Patient Pain Free? Yes - Nurse 1 - General Ulcer Measurement Start: 02/23/21 13:58 Freq: Status: Active Protocol: Activity Type Activity Date Activity User E-Sign Co-Sign Detail Recorded Client Recorded Date Recorded By Document 02/23/21 13:58 MS [id number] 02/23/21 14:00 MS 02/23/21 13:58 Wound Center Nurse 1 #1- L LATERAL FOOT -Current Size (cm) - Length 6 -Current Size (cm) - Width 2 -Current Size (cm) - Depth 0.4 -Total Square Cm 12 -Exudate Amt Medium -Exudate Type Serosanguineous -Wound Margin Distinct, Outline Attached -Granulation Amt Medium (34-66%) -Slough/Fibrin Yes -Necrotic Tissue Type Adherent Slough -Texture (Kasia-wound Skin Appearance) No Abnormality -Moisture (Kasia-wound Skin Appearance) No Abnormality -Color (Kasia-wound Skin Appearance) No Abnormality -Temperature (Kasia-wound Skin No Abnormality Appearance) (Pt Warm) -Tenderness on Palpation (Kasia-wound No Skin Appearance) -Ulcer Cleansing Rinsed/ Irrigated with Saline -Foul Odor after Cleansing No -Anesthetic Used 4% Lidocaine Solution WC - Nurse 2 - General Ulcer CM Notes Start: 02/23/21 13:58 Freq: Status: Active Protocol: Activity Type Activity Date Activity User E-Sign Co-Sign Detail Recorded Client Recorded Date Recorded By Document 02/23/21 14:07 MICHA [id number] 02/23/21 14:13 MICHA 02/23/21 14:07 Wound Center Nurse 2 -Time 14:07 -Correct Patient Yes -Correct Side, Site, Position Yes -Correct Procedure Yes -Procedure Performed Yes -Type of Procedure Debridement -Clinical Debridement Subcutaneous -Tissue Removed Subcutaneous -Post Debridement (cm) - Length 3.5 -Post Debridement (cm) - Width 1 -Post Debridement (cm) - Depth 0.3 -Total Square (Post) (cm) 3.5 -Area of Debridement (cm) - Length 3.5 -Area of Debridement (cm) - Width 1 -Total Square (Area) (cm) 3.5 -Tunneling No -Undermining/Tunneling No -Circular Undermining No -Wound/Ulcer Outcome Not Healed -Ulcer Cleansing Rinsed/ Irrigated with Saline -Foul Odor after Cleansing No -Bioengineered Tissue No -Bleeding Controlled with Pressure -Offloading Yes -Type of Offloading Knee Walker -Debridement - Subq, 1st 20sq cm Yes Pain Scale: 0-10 Numeric Is Patient Pain Free? Yes - Nurse 3 - General Ulcer D/C NN Start: 02/23/21 13:58 Freq: Status: Active Protocol: Activity Type Activity Date Activity User E-Sign Co-Sign Detail Recorded Client Recorded Date Recorded By Document 02/23/21 14:20 BMF [id number] 02/23/21 14:20 [facility] 02/23/21 14:20 Wound Care Nurse 3 #1- L LATERAL FOOT -Ulcer Cleansing Rinsed/ Irrigated with Saline -Foul Odor after Cleansing No -Primary Dressing Applied Other -Other Dressing hydrogel -Primary Dressing Covered/Secured with Dry Gauze & Roll Gauze, Secured with Tape -Other Covering drsg per joaquina reyes Treatment Response Procedure Tolerated Well Pain Scale: 0-10 Numeric Is Patient Pain Free? Yes WC - Visit Discharge Discharge Condition Stable Ambulatory Status Ambulatory Transportation Private Auto Accompanied by Wound debrided: lateral left foot Wound Grade/Stage: Type of Debridement: Excisional debridement Anesthesia Used: 4% Lidocaine Solution Depth: in the subcutaneous layer Percentage of wound debrided: 100 Instrument Used: #15 blade and Forceps Tissue Removed: fibrous, devitalized subcutaneous, biofilm, slough Severity: Fat Layer Exposed Amount of bleeding with debridement: Mild Bleeding Controlled with: Pressure Patient tolerated procedure: Patient tolerated procedure well
[2021-03-02 14:26] VITALS: BP 110/76; PULSE 68; TEMP 36.3; BMI 23.6
--- NOTE | 2021-03-02 22:26 | PCM.WC.PN ---
History of Present Illness Date of Service: 03/05/21 Chief Complaint: Left foot ulcer History of Wound: This 75-year-old male was seen for left foot ulcer return to the wound healing center today. He had recent lower extremity vascular successful intervention performed with Dr. Bowens. He relates he has improved warmth and sensation to his left foot. It is noted he has a low ejection fraction and also small vessel disease is suspected. I performed a fifth ray resection of the left foot at [facility] on 02/04/2021 for treatment of nonhealing ulcer and osteomyelitis. He has been changing the dressing as advised. He wears offloading surgical shoe. He is with his today. He completed a course of augmentin and cipro. He was seen by infectious disease during his last hospital admission. Progress of Wound: Worsening status Objective Data Objective Data Vital Signs: Vital Signs Temp Pulse Resp BP 97.4 F L 68 16 110/76 03/02/21 14:26 03/02/21 14:26 02/23/21 13:58 03/02/21 14:26 Weight: 60.781 kg Body Mass Index (BMI) 23.6 Physical Exam Const alert and oriented x3 General Appearance: cooperative HEENT normocephalic Extremity Extremity Narrative: No calf tenderness Diminished pulses Muscle wasting noted fifth ray resection left foot No adjacent bogginess, fluctuance or crepitus General Extremity: edema and no tenderness to palpation of joints or extremities; Negative for cyanosis Skin Skin Narrative: no purulence, no streaking, no odor, no infection The central aspect and most distal apex is gapping with fibrosis and granulation tissue. No direct exposure to bone. Incisional eschar noted General Skin Exam: Negative for erythema Neuro Neuro Narrative: lack of normal epicritic sensation via light touch is consistent with neuropathy status Psych cooperative and affect normal Debridement Note Debridement Note Post-Debridement Measurements and Additional Note: Post-Debridement Measurements/Treatment WC - Nurse 1 - General Ulcer Assessment Start: 02/23/21 13:58 Freq: Status: Active Protocol: JV Activity Type Activity Date Activity User E-Sign Co-Sign Detail Recorded Client Recorded Date Recorded By Document 02/23/21 13:58 MS [id number] 02/23/21 14:00 MS Document 03/02/21 14:26 KR [id number] 03/02/21 14:28 KR 02/23/21 03/02/21 13:58 14:26 - Today's Visit Information Type of service Follow-up Visit Follow-up Visit (Physician/GLOVE PARTS INSPECTOR (Physician/GLOVE PARTS INSPECTOR ) ) Arrival Mode Ambulatory Ambulatory Patient Identification Verified (Name & Yes Yes ) Patient Requires Transmission-Based No Precautions Safety Precautions NA Finger Stick Blood Sugar(mg/dl) (if 98 indicated): Blood Sugar Stated by Patient Height and Weight Body Mass Index (BMI) 23.6 23.6 BMI Classification Normal Normal Vital Signs Temperature (97.8 F-99.1 F) 97.0 F L 97.4 F L Temperature Source Temporal Temporal Pulse Rate (60-100) 69 68 Pulse Location Monitor Monitor Respiratory Rate (12-18) 16 Respiratory rate source Observation Blood Pressure (90/60-120/80) 128/41 H 110/76 Blood Pressure Mean (mm Hg) 70 87 Source Monitor Monitor Position Sitting Sitting Blood Pressure Location Left Arm Left Arm History Since Last Visit- (Skip if this is Patient's initial visit) Have you changed medications since your No No last visit? Any new allergies or adverse reactions No No Had a fall/change in ADL's that may No No increase risk of falls Signs or symptoms of abuse and/or No No neglect since last visit Have you been in the hospital since your No No last visit? Has dressing in place as prescribed Yes Yes Has compression in place as prescribed N/A N/A Has offloadiing in place as prescribed N/A N/A Experienced any changes in pain level or No No management Left Footwear Surgical Shoe Regular Shoe with pressure relief insole Right Footwear Surgical Shoe Regular Shoe with pressure relief insole Pain Scale: 0-10 Numeric Is Patient Pain Free? Yes Yes - Nurse 1 - General Ulcer Measurement Start: 02/23/21 13:58 Freq: Status: Active Protocol: Activity Type Activity Date Activity User E-Sign Co-Sign Detail Recorded Client Recorded Date Recorded By Document 02/23/21 13:58 MS [id number] 02/23/21 14:00 MS Document 03/02/21 14:26 KR [id number] 03/02/21 14:28 KR 02/23/21 03/02/21 13:58 14:26 Wound Center Nurse 1 #1- L LATERAL FOOT -Current Size (cm) - Length 6 5 -Current Size (cm) - Width 2 1 -Current Size (cm) - Depth 0.4 0.5 -Total Square Cm 12 5 -Exudate Amt Medium Small -Exudate Type Serosanguineous Serosanguineous -Wound Margin Distinct, Distinct, Outline Outline Attached Attached -Granulation Amt Medium (34-66%) None Present (0 %) -Slough/Fibrin Yes -Necrosis Amt Medium (34-66%) -Necrotic Tissue Type Adherent Slough Eschar -Texture (Kasia-wound Skin Appearance) No Abnormality Assessed, Scarring -Moisture (Kasia-wound Skin Appearance) No Abnormality -Color (Kasia-wound Skin Appearance) No Abnormality Assessed, Erythema -Temperature (Kasia-wound Skin No Abnormality No Abnormality Appearance) (Pt Warm) (Pt Warm) -Tenderness on Palpation (Kasia-wound No No Skin Appearance) -Ulcer Cleansing Rinsed/ Rinsed/ Irrigated with Irrigated with Saline Saline -Foul Odor after Cleansing No No -Anesthetic Used 4% Lidocaine 4% Lidocaine Solution Solution,5% Lidocaine Gel WC - Nurse 2 - General Ulcer CM Notes Start: 02/23/21 13:58 Freq: Status: Active Protocol: Activity Type Activity Date Activity User E-Sign Co-Sign Detail Recorded Client Recorded Date Recorded By Document 02/23/21 14:07 JF [id number] 02/23/21 14:13 Document 03/02/21 14:45 [id number] 03/02/21 14:49 02/23/21 03/02/21 14:07 14:45 Wound Center Nurse 2 #1- L LATERAL FOOT -Time 14:07 14:46 -Correct Patient Yes Yes -Correct Side, Site, Position Yes Yes -Correct Procedure Yes Yes -Procedure Performed Yes Yes -Type of Procedure Debridement Debridement -Clinical Debridement Subcutaneous Subcutaneous -Tissue Removed Subcutaneous Subcutaneous -Post Debridement (cm) - Length 3.5 5.1 -Post Debridement (cm) - Width 1 1.1 -Post Debridement (cm) - Depth 0.3 0.9 -Total Square (Post) (cm) 3.5 5.61 -Area of Debridement (cm) - Length 3.5 5.1 -Area of Debridement (cm) - Width 1 1.1 -Total Square (Area) (cm) 3.5 5.61 -Tunneling No No -Undermining/Tunneling No No -Circular Undermining No No -Wound/Ulcer Outcome Not Healed Not Healed -Ulcer Cleansing Rinsed/ Rinsed/ Irrigated with Irrigated with Saline Saline -Foul Odor after Cleansing No No -Bioengineered Tissue No No -Bleeding Controlled with Pressure Pressure -Offloading Yes Yes -Type of Offloading Knee Walker Surgical Shoe -Treatment Response Procedure Tolerated Well -Debridement - Subq, 1st 20sq cm Yes Yes Pain Scale: 0-10 Numeric Is Patient Pain Free? Yes Yes - Nurse 3 - General Ulcer D/C NN Start: 02/23/21 13:58 Freq: Status: Active Protocol: Activity Type Activity Date Activity User E-Sign Co-Sign Detail Recorded Client Recorded Date Recorded By Document 02/23/21 14:20 BMF [id number] 02/23/21 14:20 BMF Document 03/02/21 15:05 DL [id number] 03/02/21 15:06 DL 02/23/21 03/02/21 14:20 15:05 Wound Care Nurse 3 #1- L LATERAL FOOT -Ulcer Cleansing Rinsed/ Rinsed/ Irrigated with Irrigated with Saline Saline -Foul Odor after Cleansing No No -Primary Dressing Applied Other -Other Dressing hydrogel hydrogel today -Primary Dressing Covered/Secured with Dry Gauze & Dry Gauze & Roll Gauze, Roll Gauze, Secured with Secured with Tape Tape -Other Covering drsg per kr recreational counselor Treatment Response Procedure Procedure Tolerated Well Tolerated Well Pain Scale: 0-10 Numeric Is Patient Pain Free? Yes Yes - Visit Discharge Discharge Condition Stable Stable Ambulatory Status Ambulatory Ambulatory Transportation Private Auto Private Auto Accompanied by Notes: Pt to resume Santly at home Wound debrided: left foot lateral near fifth ray resection Wound Grade/Stage: 3 Type of Debridement: Excisional debridement Anesthesia Used: 4% Lidocaine Solution Depth: in the subcutaneous layer Percentage of wound debrided: 100 Instrument Used: #15 blade Tissue Removed: fibrous, devitalized subcutaneous, biofilm, slough Severity: Fat Layer Exposed Amount of bleeding with debridement: Mild Bleeding Controlled with: Pressure Patient tolerated procedure: Patient tolerated procedure well Assessment/Plan Assessment/Plan (1) Peripheral vascular occlusive disease: CODE(S): Code(s): I73.9 - Peripheral vascular disease, unspecified (2) Ulcer of left foot with fat layer exposed: CODE(S): Code(s): L97.522 - Non-pressure chronic ulcer of other part of left foot with fat layer exposed (3) History of angioplasty of peripheral vessel: CODE(S): Code(s): Z98.62 - Peripheral vascular angioplasty status (4) Diabetes mellitus with neuropathy: CODE(S): Code(s): E11.40 - Type 2 diabetes mellitus with diabetic neuropathy, unspecified (5) Delayed wound healing: CODE(S): Code(s): T14.8XXD - Other injury of unspecified body region, subsequent encounter PLAN: I reviewed and discussed his plan. Debridement was performed today as noted. He was advised to change his dressing daily with Santyl applied nickel thickness. To change his daily wash with antibacterial soap and water. To avoid soaking activities. He was previously diagnosed with osteomyelitis and underwent a fifth ray resection of the left foot at [facility] on 02-04-21. The diagnosis was confirmed with pathological acute osteomyelitis. The clearance fragment that was sent to pathology was negative for acute osteomyelitis. The clearance fragment that was sent to microbiology did not demonstrate some E. coli growth. He was discharged home from the hospital on oral Augmentin and Cipro. He was seen by infectious disease while in the hospital setting. He was advised to follow-up as scheduled and to confirm follow-up date and time. Previous labs were reviewed. Hemoglobin A1c on 02-05-21 was 7.5%. On 01-27-21 his ESR was 38 and C-reactive protein was 14.5. On 02-06-21 his white blood cell count was 13.4. Serial labs will be monitored. I recommend continued offloading surgical site areas with a surgical shoe. To try to keep mostly weight on the heel. I previously fabricated dual density offloading liners today to take additional pressure off of the ulcer site. I recommend nutritional supplementation optimize healing including Neri nutritional supplement pack daily. It is also noted that his A1c is still elevated which also does not have a good healing outcome. I advised him on continued improved diabetic control. Note: [employer] speech recognition paper cup machine operator software was used to create portions of this document. Sound-alike and misspelled words, as well as other paper cup machine operator errors may be contained in the documentation.
== END 2021-03-14 23:59 ==
LOC: WC 14:15
PROVIDERS: PCP Family Medicine; Referring Provider Family Medicine; Visit Provider Podiatrist
DX: E11.621 Type 2 diabetes mellitus with foot ulcer (principal); E11.51 Type 2 diabetes mellitus with diabetic peripheral angiopathy without gangrene; L97.522 Non-pressure chronic ulcer of other part of left foot with fat layer exposed; E11.40 Type 2 diabetes mellitus with diabetic neuropathy, unspecified
CPT/HCPCS: 11042

== ENCOUNTER → 2021-03-10 09:13 | Outpatient (CLI) | payer MEDICARE, SELFPAY ==
[2021-03-02 14:26] VITALS: BMI 23.6
--- NOTE | 2021-03-10 09:16 | US_ITS ---
STUDY: ULTRASOUND BREAST - BILATERAL REASON FOR EXAM: Male, 75 years old. Palpable lump in the right breast. TECHNIQUE: Axial and longitudinal images of the BILATERAL breast were performed with a high resolution ultrasound transducer. # OF IMAGES: 12 COMPARISON: Comparison is made with prior mammogram done earlier in the day. FINDINGS: Right Breast: The palpable abnormality corresponds to a 1.3 cm x 1.5 cm x 0.7 cm irregular density. A biopsy is recommended. US/Breast Complete Bilateral IMPRESSION: 1.3 cm x 1.5 cm x 0.7 cm irregular nodular density in the retroareolar region of the right breast. A biopsy is recommended. ASSESSMENT CATEGORY: BIRADS Category 4: Suspicious - Biopsy Should Be Considered. A letter regarding these results will be sent to the patient by the facility within 30 days. Electronically Signed: Raheel Ortega MD at 15:15 EDT , Service support ,
--- NOTE | 2021-03-10 09:16 | BI_ITS ---
MAMMOGRAPHY - BILATERAL DIAGNOSTIC REASON FOR EXAM: Male, 75 years old. Right breast lump. PERTINENT HISTORY: Non-contributory. TECHNIQUE: Digital bilateral breast megan (3D mammographic acquisition) in the CC and MLO projections. 2-D mediolateral oblique (MLO) and craniocaudad (CC) views of both breasts were obtained. CAD: Full Field Digital Mammography with Computer Added Detection was performed. COMPARISON: None. Baseline examination. FINDINGS: Breast Composition: There are scattered areas of fibroglandular density in the retroareolar region more prominent on the right side. There are no dominant masses or suspicious calcifications. No other significant abnormalities are identified. BI/DIAG MAMM W/CAD, BILAT IMPRESSION: Retroareolar breast tissue more prominent on the right side. This is suggestive of gynecomastia. Correlation with ultrasound of the right breast is recommended for further evaluation. ASSESSMENT CATEGORY: BIRADS Category 0: Incomplete. Need additional imaging evaluation. A letter regarding these results will be sent to the patient by the facility within 30 days. Approximately 10% of breast cancers are not detected by mammography. A normal mammogram should not delay biopsy of a clinically suspicious abnormality. Electronically Signed: Raheel Ortega MD at 10:44 EDT , Service support ,
== END ==
PROVIDERS: PCP Family Medicine; Referring Provider Family Medicine; Visit Provider Family Medicine
DX: N63.10 Unspecified lump in the right breast, unspecified quadrant (principal); R92.8 Other abnormal and inconclusive findings on diagnostic imaging of breast
CPT/HCPCS: 76641; 77062; 77066; G0279

== ENCOUNTER → 2021-03-28 13:20 | Outpatient (CLI) | payer MEDICARE, SELFPAY ==
--- NOTE | 2021-03-28 | BRBX_PTH ---
PATIENT: TAM BUSTOS LOC: [facility] U#:[id number] AGE/SX: 79/M ROOM: RE03/28/[address]: Dr. Lamonte Muñoz MD : 1945 BED: DIS: SPEC #: [id number] RECD: 03/28/21 13:17 STATUS: TRYONE YOLANDA #: [id number] BRITTANY: 03/28/21 00:[address]: Lamonte Muñoz DEPT: SURGICAL PATHOLOGY RECD BY: Wilfredo Muñoz ENTERED: 03/29/21 08:10 SP TYPE: BREAST BX OTHR DR: Dr. Saman Arenas MD Tissues: Right breast, NOS Procedures: Surgery Specimen Level IV HEADER OPERATION: Ultrasound-guided right breast needle core biopsy PRE-OP DIAGNOSIS: Mass of right breast TISSUE SUBMITTED: Right breast tissue MICROSCOPIC DIAGNOSIS Right breast, ultrasound-guided core biopsy: Consistent with gynecomastia. AM:prudence 03/30/2021 MICROSCOPIC DESCRIPTION Slides are reviewed. GROSS DESCRIPTION Received in fixative is one container labeled with the patient's name and designated right breast. The specimen consists of multiple irregular and elongated fragments of light nathan soft tissue that in aggregate measure 1.8 x 0.7 x 0.1 cm. The specimen is totally submitted in one cassette. / AM:prudence 03/29/21 TC:5 CPT: 94057
[2021-03-28 09:25] VITALS: BMI 23.6
== END ==
PROVIDERS: PCP Family Medicine; Referring Provider Surgery; Visit Provider Surgery
DX: N63.10 Unspecified lump in the right breast, unspecified quadrant (principal)
CPT/HCPCS: 88305

== ENCOUNTER 2021-04-13 13:15 | Outpatient (RCR) | payer MEDICARE, SELFPAY ==
[2021-03-15 00:24] VITALS: BP 110/76; PULSE 68; RESP 16; TEMP 36.3
[2021-03-16 13:21] VITALS: BP 127/59; PULSE 69; RESP 16; TEMP 36.4; BMI 23.6
--- NOTE | 2021-03-16 15:02 | PN.PCM_ITS ---
History of Present Illness Date of Service: 03/16/21 Chief Complaint: Left foot ulcer History of Wound: This 75-year-old male was seen for left foot ulcer return to the wound healing center today. He had recent lower extremity vascular successful intervention performed with Dr. Bowens. He relates he has improved warmth and sensation to his left foot. It is noted he has a low ejection fraction and also small vessel disease is suspected. I performed a fifth ray resection of the left foot at [facility] on 02/04/2021 for treatment of nonhealing ulcer and osteomyelitis. He has been changing the dressing as advised with darlin. He wears offloading surgical shoe. He is with his ying borden. Progress of Wound: stable Objective Data Objective Data Vital Signs: Vital Signs Temp Pulse Resp BP 97.5 F L 69 16 127/59 H 03/16/21 13:21 03/16/21 13:21 03/16/21 13:21 03/16/21 13:21 Weight: 60.781 kg Body Mass Index (BMI) 23.6 Physical Exam Const alert and oriented x3 General Appearance: cooperative HEENT normocephalic Extremity Extremity Narrative: No calf tenderness Diminished pulses Muscle wasting noted General Extremity: edema and no tenderness to palpation of joints or extremities; Negative for cyanosis Skin Skin Narrative: no purulence, no streaking, no odor, no infection. atrophic and hairless skin. eschar and fibrous ulcer base with some granulation tissue noted. no exposed bone General Skin Exam: Negative for erythema Neuro Neuro Narrative: lack of normal epicritic sensation via light touch is consistent with neuropathy status Psych cooperative and affect normal Debridement Note Debridement Note Post-Debridement Measurements and Additional Note: Post-Debridement Measure ments/Treatment - Nurse 1 - General Ulcer Assessment Start: 03/16/21 13:21 Freq: Status: Active Protocol: ALFREDO.LOWEXT Activity Type Activity Date Activity User E-Sign Co-Sign Detail Recorded Client Recorded Date Recorded By Document 03/16/21 13:21 MICHA [id number] 03/16/21 13:28 MICHA 03/16/21 13:21 - Today's Visit Information Type of service Follow-up Visit (Physician/FUDGE CANDY MAKER ) Arrival Mode Ambulatory,Cane Accompanied by Patient Requires Transmission-Based No Precautions Height and Weight Body Mass Index (BMI) 23.6 BMI Classification Normal Vital Signs Temperature (97.8 F-99.1 F) 97.5 F L Temperature Source Temporal Pulse Rate (60-100) 69 Pulse Location Monitor Respiratory Rate (12-18) 16 Respiratory rate source Observation Blood Pressure (90/60-120/80) 127/59 H Blood Pressure Mean (mm Hg) 81 Source Monitor Position Semi-Fowlers Blood Pressure Location Left Arm History Since Last Visit- (Skip if this is Patient's initial visit) Have you changed medications since your No last visit? Any new allergies or adverse reactions No Had a fall/change in ADL's that may No increase risk of falls Signs or symptoms of abuse and/or No neglect since last visit Have you been in the hospital since your No last visit? Has dressing in place as prescribed Yes Has compression in place as prescribed N/A Has offloadiing in place as prescribed Yes Experienced any changes in pain level or No management Left Footwear Surgical Shoe with pressure relief insole Right Footwear Regular Shoe Pain Scale: 0-10 Numeric Is Patient Pain Free? Yes WC - Nurse 1 - General Ulcer Measurement Start: 03/16/21 13:21 Freq: Status: Active Protocol: Activity Type Activity Date Activity User E-Sign Co-Sign Detail Recorded Client Recorded Date Recorded By Document 03/16/21 13:21 MICHA [id number] 03/16/21 13:28 MICHA 03/16/21 13:21 Wound Center Nurse 1 #1- L LATERAL FOOT -Combined with other wound No -Current Size (cm) - Length 5.4 -Current Size (cm) - Width 1.2 -Current Size (cm) - Depth 0.4 -Total Square Cm 6.48 -Photo Taken No -Epithelialization None Present -Tunneling No -Undermining/Tunneling No -Circular Undermining No -Exudate Amt Medium -Exudate Type Serosanguineous -Wound Margin Flat & Intact -Granulation Amt None Present (0 %) -Slough/Fibrin Yes -Necrosis Amt Large (67-100%) -Necrotic Tissue Type Adherent Slough -Structure Exposed N/A -Texture (Kasia-wound Skin Appearance) Assessed -Moisture (Kasia-wound Skin Appearance) Assessed,Dry/ Scaly -Color (Kasia-wound Skin Appearance) Assessed -Temperature (Kasia-wound Skin No Abnormality Appearance) (Pt Warm) -Tenderness on Palpation (Kasia-wound No Skin Appearance) -Ulcer Cleansing Rinsed/ Irrigated with Saline -Foul Odor after Cleansing No -Anesthetic Used 5% Lidocaine Gel Lower Limb Edema Present NA WC - Nurse 2 - General Ulcer CM Notes Start: 03/16/21 13:21 Freq: Status: Active Protocol: Activity Type Activity Date Activity User E-Sign Co-Sign Detail Recorded Client Recorded Date Recorded By Document 03/16/21 13:32 MICHA [id number] 03/16/21 13:34 MICHA 03/16/21 13:32 Wound Center Nurse 2 #1- L LATERAL FOOT -Time 13:32 -Correct Patient Yes -Correct Side, Site, Position Yes -Correct Procedure Yes -Procedure Performed Yes -Type of Procedure Debridement -Clinical Debridement Epidermis / Dermis -Tissue Removed Epidermis, Dermis -Post Debridement (cm) - Length 5.5 -Post Debridement (cm) - Width 1.2 -Post Debridement (cm) - Depth 0.5 -Total Square (Post) (cm) 6.60 -Area of Debridement (cm) - Length 5.5 -Area of Debridement (cm) - Width 1.2 -Total Square (Area) (cm) 6.60 -Tunneling No -Undermining/Tunneling No -Circular Undermining No -Wound/Ulcer Outcome Not Healed -Ulcer Cleansing Rinsed/ Irrigated with Saline -Foul Odor after Cleansing No -Bioengineered Tissue No -Bleeding Controlled with Pressure -Offloading Yes -Type of Offloading Surgical Shoe -Treatment Response Procedure Tolerated Well -Debridement - Open, 1st 20sq cm Yes Pain Scale: 0-10 Numeric Is Patient Pain Free? Yes - Nurse 3 - General Ulcer D/C NN Start: 03/16/21 13:21 Freq: Status: Active Protocol: Activity Type Activity Date Activity User E-Sign Co-Sign Detail Recorded Client Recorded Date Recorded By Document 03/16/21 13:54 RB [id number] 03/16/21 13:54 RB 03/16/21 13:54 Wound Care Nurse 3 #1- L LATERAL FOOT -Ulcer Cleansing Wound Cleanser -Other Dressing santyl -Primary Dressing Covered/Secured with Dry Gauze,Dry Gauze & Roll Gauze,Secured with Tape -Other Covering abd Pain Scale: 0-10 Numeric Is Patient Pain Free? Yes WC - Visit Discharge Discharge Condition Stable Ambulatory Status Ambulatory Transportation Private Auto Medication Reconcilliation completed & No provided to patient/care provider Clinical Summary of Care Provided Yes Wound debrided: lateral left foot Wound Grade/Stage: Type of Debridement: Selective debridement Anesthesia Used: 4% Lidocaine Solution Depth: in the subcutaneous layer Percentage of wound debrided: 100 Instrument Used: #15 blade Tissue Removed: fibrous, devitalized tissue, eschar, biofilm, slough Severity: Fat Layer Exposed Amount of bleeding with debridement: Mild Bleeding Controlled with: Pressure Patient tolerated procedure: Patient tolerated procedure well Assessment/Plan Assessment/Plan (1) Delayed wound healing: CODE(S): T14.8XXD - Other injury of unspecified body region, subsequent encounter (2) Peripheral vascular occlusive disease: CODE(S): I73.9 - Peripheral vascular disease, unspecified (3) Ulcer of left foot with fat layer exposed: CODE(S): L97.522 - Non-pressure chronic ulcer of other part of left foot with fat layer exposed (4) Diabetes mellitus with neuropathy: CODE(S): E11.40 - Type 2 diabetes mellitus with diabetic neuropathy, unspecified (5) Peripheral vascular disease: CODE(S): I73.9 - Peripheral vascular disease, unspecified (6) Malnutrition: CODE(S): E46 - Unspecified protein-calorie malnutrition PLAN: I reviewed and discussed his plan. Debridement was performed today as noted. He was advised to change his dressing daily with Santyl applied nickel thickness. To change his daily wash with antibacterial soap and water. To avoid soaking activities. He was previously diagnosed with osteomyelitis and underwent a fifth ray resection of the left foot at [facility] on 02-04-21. The diagnosis was confirmed with pathological acute osteomyelitis. The clearance fragment that was sent to pathology was negative for acute osteomyelitis. The clearance fragment that was sent to microbiology did not demonstrate some E. coli growth. He was discharged home from the hospital on oral Augmentin and Cipro. He was seen by infectious disease while in the hospital setting. He was advised to follow-up as scheduled and to confirm follow-up date and time. Previous labs were reviewed. Hemoglobin A1c on 02-05-21 was 7.5%. On 01-27-21 his ESR was 38 and C-reactive protein was 14.5. On 02-06-21 his white blood cell count was 13.4. Serial labs will be monitored. I recommend continued offloading surgical site areas with a surgical shoe. To try to keep mostly weight on the heel. I previously fabricated dual density offloading liners today to take additional pressure off of the ulcer site. I recommend nutritional supplementation optimize healing including Neri nutritional supplement pack daily. It is also noted that his A1c is still elevated which also does not have a good healing outcome. I advised him on continued improved diabetic control. If lack of healing persists, palliative wound care plan versus more proximal amputation will be considered. Note: [employer] speech recognition field crop grower software was used to create portions of this document. Sound-alike and misspelled words, as well as other field crop grower errors may be contained in the documentation. 10 minutes was spent on this encounter. This included face to face and non face to face care including preparing for the visit, reviewing the history, performing the exam, counseling and providing education to the patient, family, or caregiver, ordering medications/test/ procedures if indicated as documented, communicating with other healthcare providers, documenting information in the medical record, interpreting / sharing this information when indicated as documented, and care coordination.
[2021-03-30 13:12] VITALS: BP 124/49; PULSE 62; RESP 18; TEMP 36.2; BMI 23.6
--- NOTE | 2021-03-30 16:27 | PN.PCM_ITS ---
History of Present Illness Date of Service: 03/30/21 Chief Complaint: Left foot ulcer History of Wound: This 75-year-old male was seen for left foot ulcer return to the wound healing center today. He had recent lower extremity vascular successful intervention performed with Dr. Bowens. He relates he has improved warmth and sensation to his left foot. It is noted he has a low ejection fraction and also small vessel disease is suspected. I performed a fifth ray resection of the left foot at [facility] on 02/04/2021 for treatment of nonhealing ulcer and osteomyelitis. He has been changing the dressing as advised with darlin. He wears offloading surgical shoe. He is with his ying borden who thinks it is starting to shrink. Progress of Wound: stable Objective Data Objective Data Vital Signs: Vital Signs Temp Pulse Resp BP 97.2 F L 62 18 124/49 H 03/30/21 13:12 03/30/21 13:12 03/30/21 13:12 03/30/21 13:12 Weight: 60.781 kg Body Mass Index (BMI) 23.6 Physical Exam Const alert and oriented x3 General Appearance: cooperative HEENT normocephalic Extremity Extremity Narrative: No calf tenderness Diminished pulses Muscle wasting noted General Extremity: edema and no tenderness to palpation of joints or extremities ; Negative for cyanosis Skin Skin Narrative: no purulence, no streaking, no odor, no infection. atrophic and hairless skin. resolved eschar and decreased fibrous ulcer base with some granulation tissue noted. no exposed bone . peripheral thin epithelialization noted General Skin Exam: Negative for erythema Neuro Neuro Narrative: lack of normal epicritic sensation via light touch is consisten t with neuropathy status Psych cooperative and affect normal Debridement Note Debridement Note Post-Debridement Measurements and Additional Note: Post-Debridement Measurements/Treatment - Nurse 1 - General Ulcer Assessment Start: 03/16/21 13:21 Freq: Status: Active Protocol: JV Activity Type Activity Date Activity User E-Sign Co-Sign Detail Recorded Client Recorded Date Recorded By Document 03/16/21 13:21 MICHA [id number] 03/16/21 13:28 MICHA Document 03/30/21 13:12 DL [id number] 03/30/21 13:18 DL 03/16/21 03/30/21 13:21 13:12 - Today's Visit Information Type of service Follow-up Visit Follow-up Visit (Physician/ROASTER OPERATOR (Physician/ROASTER OPERATOR ) ) Arrival Mode Ambulatory,Cane Ambulatory Transfer Assistance None Accompanied by Patient Identification Verified (Name & Yes ) Patient Requires Transmission-Based No No Precautions Height and Weight Body Mass Index (BMI) 23.6 23.6 BMI Classification Normal Normal Vital Signs Temperature (97.8 F-99.1 F) 97.5 F L 97.2 F L Temperature Source Temporal Temporal Pulse Rate (60-100) 69 62 Pulse Location Monitor Monitor Respiratory Rate (12-18) 16 18 Respiratory rate source Observation Observation Blood Pressure (90/60-120/80) 127/59 H 124/49 H Blood Pressure Mean (mm Hg) 81 74 Source Monitor Monitor Position Semi-Fowlers Blood Pressure Location Left Arm History Since Last Visit- (Skip if this is Patient's initial visit) Have you changed medications since your No No last visit? Any new allergies or adverse reactions No No Had a fall/change in ADL's that may No No increase risk of falls Signs or symptoms of abuse and/or No No neglect since last visit Have you been in the hospital since your No last visit? Has dressing in place as prescribed Yes Yes Has compression in place as prescribed N/A N/A Has offloadiing in place as prescribed Yes Yes Experienced any changes in pain level or No No management Left Footwear Surgical Shoe Surgical Shoe with pressure with pressure relief insole relief insole Right Footwear Regular Shoe Pain Scale: 0-10 Numeric Is Patient Pain Free? Yes Yes WC - Nurse 1 - General Ulcer Measurement Start: 03/16/21 13:21 Freq: Status: Active Protocol: Activity Type Activity Date Activity User E-Sign Co-Sign Detail Recorded Client Recorded Date Recorded By Document 03/16/21 13:21 [id number] 03/16/21 13:28 Document 03/30/21 13:12 DL [id number] 03/30/21 13:18 DL 03/16/21 03/30/21 13:21 13:12 Wound Center Nurse 1 #1- L LATERAL FOOT -Combined with other wound No -Current Size (cm) - Length 5.4 5.6 -Current Size (cm) - Width 1.2 1.6 -Current Size (cm) - Depth 0.4 0.2 -Total Square Cm 6.48 8.96 -Photo Taken No No -Epithelialization None Present -Tunneling No -Undermining/Tunneling No -Circular Undermining No -Exudate Amt Medium Medium -Exudate Type Serosanguineous -Wound Margin Flat & Intact Distinct, Outline Attached -Granulation Amt None Present (0 Small (1-33%) %) -Granulation Quality [place] -Slough/Fibrin Yes -Necrosis Amt Large (67-100%) Large (67-100%) -Necrotic Tissue Type Adherent Slough Adherent Slough -Structure Exposed N/A N/A -Texture (Kasia-wound Skin Appearance) Assessed Scarring -Moisture (Kasia-wound Skin Appearance) Assessed,Dry/ No Abnormality Scaly -Color (Kasia-wound Skin Appearance) Assessed Erythema,Rubor -Temperature (Kasia-wound Skin No Abnormality No Abnormality Appearance) (Pt Warm) (Pt Warm) -Tenderness on Palpation (Kasia-wound No No Skin Appearance) -Ulcer Cleansing Rinsed/ Wound Cleanser Irrigated with Saline -Foul Odor after Cleansing No No -Anesthetic Used 5% Lidocaine 4% Lidocaine Gel Solution Lower Limb Edema Present NA WC - Nurse 2 - General Ulcer CM Notes Start: 03/16/21 13:21 Freq: Status: Active Protocol: Activity Type Activity Date Activity User E-Sign Co-Sign Detail Recorded Client Recorded Date Recorded By Document 03/16/21 13:32 MICHA [id number] 03/16/21 13:34 MICHA 03/16/21 13:32 Wound Center Nurse 2 -Time 13:32 -Correct Patient Yes -Correct Side, Site, Position Yes -Correct Procedure Yes -Procedure Performed Yes -Type of Procedure Debridement -Clinical Debridement Epidermis / Dermis -Tissue Removed Epidermis, Dermis -Post Debridement (cm) - Length 5.5 -Post Debridement (cm) - Width 1.2 -Post Debridement (cm) - Depth 0.5 -Total Square (Post) (cm) 6.60 -Area of Debridement (cm) - Length 5.5 -Area of Debridement (cm) - Width 1.2 -Total Square (Area) (cm) 6.60 -Tunneling No -Undermining/Tunneling No -Circular Undermining No -Wound/Ulcer Outcome Not Healed -Ulcer Cleansing Rinsed/ Irrigated with Saline -Foul Odor after Cleansing No -Bioengineered Tissue No -Bleeding Controlled with Pressure -Offloading Yes -Type of Offloading Surgical Shoe -Treatment Response Procedure Tolerated Well -Debridement - Open, 1st 20sq cm Yes Pain Scale: 0-10 Numeric Is Patient Pain Free? Yes - Nurse 3 - General Ulcer D/C NN Start: 03/16/21 13:21 Freq: Status: Active Protocol: Activity Type Activity Date Activity User E-Sign Co-Sign Detail Recorded Client Recorded Date Recorded By Document 03/16/21 13:54 RB [id number] 03/16/21 13:54 RB Document 03/30/21 14:24 KR [id number] 03/30/21 14:24 KR 03/16/21 03/30/21 13:54 14:24 Wound Care Nurse 3 #1- L LATERAL FOOT -Ulcer Cleansing Wound Cleanser -Primary Dressing Applied C Hydrogel ($) -Other Dressing santyl -Primary Dressing Covered/Secured with Dry Gauze,Dry Dry Gauze, Gauze & Roll Secured with Gauze,Secured Tape with Tape -Other Covering abd Pain Scale: 0-10 Numeric Is Patient Pain Free? Yes Yes - Visit Discharge Discharge Condition Stable Stable Ambulatory Status Ambulatory Ambulatory,Cane Transportation Private Auto Private Auto Accompanied by Medication Reconcilliation completed & No provided to patient/care provider Clinical Summary of Care Provided Yes Wound debrided: lateral left foot Wound Grade/Stage: 3 Type of Debridement: Excisional debridement Anesthesia Used: 4% Lidocaine Solution Depth: in the subcutaneous layer Percentage of wound debrided: 100 Instrument Used: #15 blade Tissue Removed: fibrous, devitalized subcutaneous, biofilm, slough Severity: Fat Layer Exposed Amount of bleeding with debridement: Mild Bleeding Controlled with: Pressure Patient tolerated procedure: Patient tolerated procedure well Assessment/Plan Assessment/Plan (1) Delayed wound healing: CODE(S): T14.8XXD - Other injury of unspecified body region, subsequent encounter (2) Ulcer of left foot with fat layer exposed: CODE(S): L97.522 - Non-pressure chronic ulcer of other part of left foot with fat layer exposed (3) Peripheral vascular occlusive disease: CODE(S): I73.9 - Peripheral vascular disease, unspecified (4) Diabetes mellitus with neuropathy: CODE(S): E11.40 - Type 2 diabetes mellitus with diabetic neuropathy, unspecified (5) Osteomyelitis: CODE(S): M86.9 - Osteomyelitis, unspecified PLAN: I reviewed and discussed his plan. Debridement was performed today as noted. He was advised to change his dressing daily with Santyl applied nickel thickness. To change his daily wash with antibacterial soap and water. To avoid soaking activities. He was previously diagnosed with osteomyelitis and underwent a fifth ray resection of the left foot at [facility] on 02-04-21. The diagnosis was confirmed with pathological acute osteomyelitis. The clearance fragment that was sent to pathology was negative for acute osteomyelitis. The clearance fragment that was sent to microbiology did not demonstrate some E. coli growth. He was discharged home from the hospital on oral Augmentin and Cipro. He was seen by infectious disease while in the hospital setting. He was advised to follow-up as scheduled and to confirm follow-up date and time. Previous labs were reviewed. Hemoglobin A1c on 02-05-21 was 7.5%. On 01-27-21 his ESR was 38 and C-reactive protein was 14.5. On 02-06-21 his white blood cell count was 13.4. Serial labs will be monitored. I recommend continued offloading surgical site areas with a surgical shoe. To try to keep mostly weight on the heel. I previously fabricated dual density offloading liners today to take additional pressure off of the ulcer site. I recommend nutritional supplementation optimize healing including Neri nutritional supplement pack daily. It is also noted that his A1c is still elevated which also does not have a good healing outcome. I advised him on continued improved diabetic control. If lack of healing persists, palliative wound care plan versus more proximal amputation will be considered. Note: [employer] speech recognition drapery and upholstery measurer software was used to create portions of this document. Sound-alike and misspelled words, as well as other drapery and upholstery measurer errors may be contained in the documentation.
[2021-04-13 13:14] VITALS: BP 126/57; PULSE 66; RESP 16; TEMP 36.5; BMI 23.6
--- NOTE | 2021-04-13 14:29 | PN.PCM_ITS ---
History of Present Illness Date of Service: 04/13/21 Chief Complaint: Left foot ulcer History of Wound: This 75-year-old male was seen for left foot ulcer return to the wound healing center today. He had recent lower extremity vascular successful intervention performed with Dr. Bowens. It is noted he has a low ejection fraction and also small vessel disease is suspected. I performed a fifth ray resection of the left foot at [facility] on 02/04/2021 for treatment of nonhealing ulcer and osteomyelitis. He has been changing the dressing as advised with darlin. He wears offloading surgical shoe. He is with his today. Progress of Wound: stable Objective Data Objective Data Vital Signs: Vital Signs Temp Pulse Resp BP 97.7 F L 66 16 126/57 H 04/13/21 13:14 04/13/21 13:14 04/13/21 13:14 04/13/21 13:14 Oxygen Delivery Method Room Air Weight: 60.781 kg Body Mass Index (BMI) 23.6 Physical Exam Const alert and oriented x3 General Appearance: cooperative HEENT normocephalic Extremity Extremity Narrative: No calf tenderness Diminished pulses Muscle wasting noted General Extremity: edema and no tenderness to palpation of joints or extremities; Negative for cyanosis Skin Skin Narrative: no purulence, no streaking, no odor, no infection. atrophic and hairless skin. resolved eschar and decreased fibrous ulcer base with some granulation tissue noted. no exposed bone . peripheral thin epithelialization noted General Skin Exam: Negative for erythema Neuro Neuro Narrative: lack of normal epicritic sensation via light touch is consistent with neuropathy status Psych cooperative and affect normal Debridement Note Debridement Note Post-Debridement Measurements and Additional Note: Post-Debridement Measurements/Treatment - Nurse 1 - General Ulcer Assessment Start: 03/16/21 13:21 Freq: Status: Active Protocol: ALESSANDROEXColette Activity Type Activity Date Activity User E-Sign Co-Sign Detail Recorded Client Recorded Date Recorded By Document 03/16/21 13:21 JF [id number] 03/16/21 13:28 JF Document 03/30/21 13:12 DL [id number] 03/30/21 13:18 DL Document 04/13/21 13:14 BMF Desktop 04/13/21 13:21 BMF 03/16/21 03/30/21 04/13/21 13:21 13:12 13:14 - Today's Visit Information Type of service Follow-up Visit Follow-up Visit Follow-up Visit (Physician/STRATEGIC MARKETING ASSOCIATE (Physician/STRATEGIC MARKETING ASSOCIATE (Physician/STRATEGIC MARKETING ASSOCIATE ) ) ) Arrival Mode Ambulatory,Cane Ambulatory Ambulatory Transfer Assistance None None Accompanied by Patient Identification Verified (Name & Yes Yes ) Patient Requires Transmission-Based No No No Precautions Height and Weight Body Mass Index (BMI) 23.6 23.6 23.6 BMI Classification Normal Normal Normal Vital Signs Temperature (97.8 F-99.1 F) 97.5 F L 97.2 F L 97.7 F L Temperature Source Temporal Temporal Temporal Pulse Rate (60-100) 69 62 66 Pulse Location Monitor Monitor Monitor Respiratory Rate (12-18) 16 18 16 Respiratory rate source Observation Observation Observation Oxygen Delivery Method Room Air Blood Pressure (90/60-120/80) 127/59 H 124/49 H 126/57 H Blood Pressure Mean (mm Hg) 81 74 80 Source Monitor Monitor Monitor Position Semi-Fowlers Sitting Blood Pressure Location Left Arm Left Arm History Since Last Visit- (Skip if this is Patient's initial visit) Have you changed medications since your No No No last visit? Any new allergies or adverse reactions No No No Had a fall/change in ADL's that may No No No increase risk of falls Signs or symptoms of abuse and/or No No No neglect since last visit Have you been in the hospital since your No No last visit? Has dressing in place as prescribed Yes Yes Yes Has compression in place as prescribed N/A N/A N/A Has offloadiing in place as prescribed Yes Yes Yes Experienced any changes in pain level or No No No management Left Footwear Surgical Shoe Surgical Shoe Surgical Shoe with pressure with pressure with pressure relief insole relief insole relief insole Right Footwear Regular Shoe Surgical Shoe with pressure relief insole Pain Scale: 0-10 Numeric Is Patient Pain Free? Yes Yes Yes - Nurse 1 - General Ulcer Measurement Start: 03/16/21 13:21 Freq: Status: Active Protocol: Activity Type Activity Date Activity User E-Sign Co-Sign Detail Recorded Client Recorded Date Recorded By Document 03/16/21 13:21 JF [id number] 03/16/21 13:28 JF Document 03/30/21 13:12 DL [id number] 03/30/21 13:18 DL Document 04/13/21 13:14 BMF Desktop 04/13/21 13:21 [facility] 03/16/21 03/30/21 04/13/21 13:21 13:12 13:14 Wound Center Nurse 1 #1- L LATERAL FOOT -Combined with other wound No No -Current Size (cm) - Length 5.4 5.6 5.5 -Current Size (cm) - Width 1.2 1.6 1.2 -Current Size (cm) - Depth 0.4 0.2 0.4 -Total Square Cm 6.48 8.96 6.60 -Photo Taken No No No -Epithelialization None Present None Present -Tunneling No No -Undermining/Tunneling No No -Circular Undermining No No -Exudate Amt Medium Medium Medium -Exudate Type Serosanguineous Serosanguineous -Wound Margin Flat & Intact Distinct, Distinct, Outline Outline Attached Attached -Granulation Amt None Present (0 Small (1-33%) Small (1-33%) %) -Granulation Quality [place] Red -Slough/Fibrin Yes Yes -Necrosis Amt Large (67-100%) Large (67-100%) Large (67-100%) -Necrotic Tissue Type Adherent Slough Adherent Slough Adherent Slough -Structure Exposed N/A N/A -Texture (Kasia-wound Skin Appearance) Assessed Scarring Assessed, Scarring -Moisture (Kasia-wound Skin Appearance) Assessed,Dry/ No Abnormality Assessed Scaly -Color (Kasia-wound Skin Appearance) Assessed Erythema,Rubor Assessed, Erythema -Temperature (Kasia-wound Skin No Abnormality No Abnormality No Abnormality Appearance) (Pt Warm) (Pt Warm) (Pt Warm) -Tenderness on Palpation (Kasia-wound No No Yes Skin Appearance) -Ulcer Cleansing Rinsed/ Wound Cleanser Rinsed/ Irrigated with Irrigated with Saline Saline -Foul Odor after Cleansing No No No -Anesthetic Used 5% Lidocaine 4% Lidocaine 4% Lidocaine Gel Solution Solution Lower Limb Edema Present NA WC - Nurse 2 - General Ulcer CM Notes Start: 03/16/21 13:21 Freq: Status: Active Protocol: Activity Type Activity Date Activity User E-Sign Co-Sign Detail Recorded Client Recorded Date Recorded By Document 03/16/21 13:32 JF [id number] 03/16/21 13:34 JF Document 03/30/21 17:29 PL [id number] 03/30/21 17:30 PL Document 04/13/21 13:50 JF [id number] 04/13/21 13:53 JF 03/16/21 03/30/21 04/13/21 13:32 17:29 13:50 Wound Center Nurse 2 #1- L LATERAL FOOT -Time 13:32 14:10 13:50 -Correct Patient Yes Yes Yes -Correct Side, Site, Position Yes Yes Yes -Correct Procedure Yes Yes Yes -Procedure Performed Yes Yes Yes -Type of Procedure Debridement Debridement Debridement -Clinical Debridement Epidermis / Subcutaneous Subcutaneous Dermis -Tissue Removed Epidermis, Subcutaneous Subcutaneous Dermis -Post Debridement (cm) - Length 5.5 5.6 5.5 -Post Debridement (cm) - Width 1.2 1.6 1 -Post Debridement (cm) - Depth 0.5 0.2 0.5 -Total Square (Post) (cm) 6.60 8.96 5.5 -Area of Debridement (cm) - Length 5.5 5.6 5.5 -Area of Debridement (cm) - Width 1.2 0.6 1 -Total Square (Area) (cm) 6.60 3.36 5.5 -Tunneling No No No -Undermining/Tunneling No No No -Circular Undermining No No No -Wound/Ulcer Outcome Not Healed Not Healed Not Healed -Ulcer Cleansing Rinsed/ Rinsed/ Rinsed/ Irrigated with Irrigated with Irrigated with Saline Saline Saline -Foul Odor after Cleansing No No No -Bioengineered Tissue No No No -Bleeding Controlled with Pressure Pressure Pressure -Offloading Yes Yes -Type of Offloading Surgical Shoe Surgical Shoe -Treatment Response Procedure Procedure Procedure Tolerated Well Tolerated Well Tolerated Well -Debridement - Open, 1st 20sq cm Yes -Debridement - Subq, 1st 20sq cm Yes Yes Pain Scale: 0-10 Numeric Is Patient Pain Free? Yes Yes Yes WC - Nurse 3 - General Ulcer D/C NN Start: 03/16/21 13:21 Freq: Status: Active Protocol: Activity Type Activity Date Activity User E-Sign Co-Sign Detail Recorded Client Recorded Date Recorded By Document 03/16/21 13:54 RB [id number] 03/16/21 13:54 RB Document 03/30/21 14:24 KR [id number] 03/30/21 14:24 KR Document 04/13/21 14:03 RB Desktop 04/13/21 14:03 RB 03/16/21 03/30/21 04/13/21 13:54 14:24 14:03 Wound Care Nurse 3 #1- L LATERAL FOOT -Ulcer Cleansing Wound Cleanser Rinsed/ Irrigated with Saline -Primary Dressing Applied C Hydrogel ($) -Other Dressing santyl santyl -Primary Dressing Covered/Secured with Dry Gauze,Dry Dry Gauze, Dry Gauze,Dry Gauze & Roll Secured with Gauze & Roll Gauze,Secured Tape Gauze,Secured with Tape with Tape -Other Covering abd Treatment Response Procedure Tolerated Well Pain Scale: 0-10 Numeric Is Patient Pain Free? Yes Yes WC - Visit Discharge Discharge Condition Stable Stable Stable Ambulatory Status Ambulatory Ambulatory,Cane Ambulatory Transportation Private Auto Private Auto Private Auto Accompanied by Medication Reconcilliation completed & No No provided to patient/care provider Clinical Summary of Care Provided Yes Yes Wound debrided: lateral left foot Wound Grade/Stage: 3 Type of Debridement: Excisional debridement Anesthesia Used: 4% Lidocaine Solution Depth: in the subcutaneous layer Percentage of wound debrided: 100 Instrument Used: #15 blade Tissue Removed: fibrous, devitalized subcutaneous, biofilm, slough Severity: Fat Layer Exposed Amount of bleeding with debridement: Mild Bleeding Controlled with: Pressure Patient tolerated procedure: Patient tolerated procedure well Assessment/Plan Assessment/Plan (1) Delayed wound healing: CODE(S): T14.8XXD - Other injury of unspecified body region, subsequent encounter (2) Ulcer of left foot with fat layer exposed: CODE(S): L97.522 - Non-pressure chronic ulcer of other part of left foot with fat layer exposed (3) Peripheral vascular occlusive disease: CODE(S): I73.9 - Peripheral vascular disease, unspecified (4) Diabetes mellitus with neuropathy: CODE(S): E11.40 - Type 2 diabetes mellitus with diabetic neuropathy, unspecified (5) Osteomyelitis: CODE(S): M86.9 - Osteomyelitis, unspecified PLAN: I reviewed and discussed his plan. Debridement was performed today as noted. He was advised to change his dressing daily with Santyl applied nickel thickness. To change his daily wash with antibacterial soap and water. To avoid soaking activities. He was previously diagnosed with osteomyelitis and underwent a fifth ray resection of the left foot at [facility] on 02-04-21. The diagnosis was confirmed with pathological acute osteomyelitis. The clearance fragment that was sent to pathology was negative for acute osteomyelitis. The clearance fragment that was sent to microbiology did not demonstrate some E. coli growth. He was discharged home from the hospital on oral Augmentin and Cipro. No local signs of infection are noted at this time; to monitor. Previous labs were reviewed. Hemoglobin A1c on 02-05-21 was 7.5%. On 01-27-21 his ESR was 38 and C-reactive protein was 14.5. On 02-06-21 his white blood cell count was 13.4. Serial labs will be monitored. I recommend continued offloading surgical site areas with a surgical shoe. To try to keep mostly weight on the heel. I previously fabricated dual density offloading liners today to take additional pressure off of the ulcer site. I recommend nutritional supplementation optimize healing including Neri nutritional supplement pack daily. It is also noted that his A1c is still elevated which also does not have a good healing outcome. I advised him on continued improved diabetic control. If lack of healing persists, palliative wound care plan versus more proximal amputation will be considered. Note: [employer] speech recognition law firm consultant software was used to create portions of this document. Sound-alike and misspelled words, as well as other law firm consultant errors may be contained in the documentation.
== END 2021-04-13 23:59 ==
LOC: WC 13:15
PROVIDERS: PCP Family Medicine; Referring Provider Family Medicine; Visit Provider Podiatrist
DX: E11.621 Type 2 diabetes mellitus with foot ulcer (principal); L97.522 Non-pressure chronic ulcer of other part of left foot with fat layer exposed; E11.51 Type 2 diabetes mellitus with diabetic peripheral angiopathy without gangrene; Z89.432 Acquired absence of left foot
CPT/HCPCS: 11042; 97597

== ENCOUNTER 2021-04-27 13:15 | Outpatient (RCR) | payer MEDICARE, SELFPAY ==
[2021-04-14 00:21] VITALS: BP 126/57; PULSE 66; RESP 16; TEMP 36.5
[2021-04-27 13:14] VITALS: BP 130/67; PULSE 71; RESP 18; TEMP 36; BMI 23.6
--- NOTE | 2021-04-27 22:56 | PCM.WC.PN ---
History of Present Illness Date of Service: 04/27/21 Chief Complaint: Left foot ulcer History of Wound: This 75-year-old male was seen for left foot ulcer return to the wound healing center today. He had recent lower extremity vascular successful intervention performed with Dr. Bowens. It is noted he has a low ejection fraction and also small vessel disease is suspected. I performed a fifth ray resection of the left foot at [facility] on 02/04/2021 for treatment of nonhealing ulcer and osteomyelitis. He has been changing the dressing as advised with darlin. He wears offloading surgical shoe. He is with his today. Objective Data Objective Data Vital Signs: Vital Signs Temp Pulse Resp BP 96.8 F L 71 18 130/67 H 04/27/21 13:14 04/27/21 13:14 04/27/21 13:14 04/27/21 13:14 Weight: 60.781 kg Body Mass Index (BMI) 23.6 Physical Exam Const alert and oriented x3 General Appearance: cooperative HEENT normocephalic Extremity Extremity Narrative: No calf tenderness Diminished pulses Muscle wasting noted General Extremity: edema and no tenderness to palpation of joints or extremities; Negative for cyanosis Skin Skin Narrative: no purulence, no streaking, no odor, no infection. atrophic and hairless skin. resolved eschar and decreased fibrous ulcer base with some granulation tissue noted. no exposed bone . peripheral thin epithelialization noted and continued General Skin Exam: Negative for erythema Neuro Neuro Narrative: lack of normal epicritic sensation via light touch is consistent with neuropathy status Psych cooperative and affect normal Debridement Note Debridement Note Post-Debridement Measurements and Additional Note: Post-Debridement Measurements/Treatment - Nurse 1 - General Ulcer Assessment Start: 04/27/21 13:14 Freq: Status: Active Protocol: ALFREDO.LOWEXT Activity Type Activity Date Activity User E-Sign Co-Sign Detail Recorded Client Recorded Date Recorded By Document 04/27/21 13:14 MOHIT [id number] 04/27/21 13:16 MOHIT 04/27/21 13:14 - Today's Visit Information Type of service Follow-up Visit (Physician/ANESTHESIOLOGIST/PHYSICIAN ) Arrival Mode Ambulatory Transfer Assistance None Patient Identification Verified (Name & Yes ) Patient Requires Transmission-Based No Precautions Height and Weight Body Mass Index (BMI) 23.6 BMI Classification Normal Vital Signs Temperature (97.8 F-99.1 F) 96.8 F L Temperature Source Temporal Pulse Rate (60-100) 71 Pulse Location Monitor Respiratory Rate (12-18) 18 Respiratory rate source Observation Blood Pressure (90/60-120/80) 130/67 H Blood Pressure Mean (mm Hg) 88 Source Monitor Position Sitting Blood Pressure Location Left Arm History Since Last Visit- (Skip if this is Patient's initial visit) Have you changed medications since your No last visit? Any new allergies or adverse reactions No Had a fall/change in ADL's that may No increase risk of falls Signs or symptoms of abuse and/or No neglect since last visit Have you been in the hospital since your No last visit? Has dressing in place as prescribed Yes Has compression in place as prescribed No Has offloadiing in place as prescribed Yes Experienced any changes in pain level or No management Left Footwear Regular Shoe Right Footwear Surgical Shoe with pressure relief insole Pain Scale: 0-10 Numeric Is Patient Pain Free? Yes WC - Nurse 1 - General Ulcer Measurement Start: 04/27/21 13:14 Freq: Status: Active Protocol: Activity Type Activity Date Activity User E-Sign Co-Sign Detail Recorded Client Recorded Date Recorded By Document 04/27/21 13:14 MOHIT [id number] 04/27/21 13:16 RB 04/27/21 13:14 Wound Center Nurse 1 #1- L LATERAL FOOT -Combined with other wound No -Current Size (cm) - Length 3 -Current Size (cm) - Width 0.8 -Current Size (cm) - Depth 0.5 -Total Square Cm 2.4 -Photo Taken No -Tunneling No -Undermining/Tunneling No -Circular Undermining No -Exudate Type Serosanguineous -Wound Margin Thickened & Rolled Under -Granulation Amt Small (1-33%) -Granulation Quality [place] -Slough/Fibrin Yes -Necrosis Amt Large (67-100%) -Necrotic Tissue Type Adherent Slough -Structure Exposed N/A -Texture (Kasia-wound Skin Appearance) Scarring -Moisture (Kasia-wound Skin Appearance) Assessed -Color (Kasia-wound Skin Appearance) Assessed, Erythema -Temperature (Kasia-wound Skin No Abnormality Appearance) (Pt Warm) -Tenderness on Palpation (Kasia-wound No Skin Appearance) -Ulcer Cleansing Wound Cleanser -Foul Odor after Cleansing No -Anesthetic Used 4% Lidocaine Solution WC - Nurse 2 - General Ulcer CM Notes Start: 04/27/21 13:14 Freq: Status: Active Protocol: Activity Type Activity Date Activity User E-Sign Co-Sign Detail Recorded Client Recorded Date Recorded By Document 04/27/21 14:23 PL Laptop 04/27/21 14:24 PL 04/27/21 14:23 Wound Center Nurse 2 -Time 13:49 -Correct Patient Yes -Correct Side, Site, Position Yes -Correct Procedure Yes -Procedure Performed Yes -Type of Procedure Debridement -Clinical Debridement Subcutaneous -Tissue Removed Subcutaneous -Post Debridement (cm) - Length 3.0 -Post Debridement (cm) - Width 0.8 -Post Debridement (cm) - Depth 0.5 -Total Square (Post) (cm) 2.40 -Area of Debridement (cm) - Length 3.0 -Area of Debridement (cm) - Width 0.8 -Total Square (Area) (cm) 2.40 -Tunneling No -Undermining/Tunneling No -Circular Undermining No -Wound/Ulcer Outcome Not Healed -Ulcer Cleansing Rinsed/ Irrigated with Saline -Foul Odor after Cleansing No -Bioengineered Tissue No -Debridement - Subq, 1st 20sq cm Yes Wound debrided: lateral left foot Wound Grade/Stage: Type of Debridement: Excisional debridement Anesthesia Used: 4% Lidocaine Solution Depth: in the subcutaneous layer Percentage of wound debrided: 100 Instrument Used: #15 blade Tissue Removed: fibrous, devitalized subcutaneous, biofilm, slough Severity: Fat Layer Exposed Amount of bleeding with debridement: Mild Bleeding Controlled with: Pressure Patient tolerated procedure: Patient tolerated procedure well Assessment/Plan Assessment/Plan (1) Delayed wound healing: CODE(S): T14.8XXD - Other injury of unspecified body region, subsequent encounter (2) Ulcer of left foot with fat layer exposed: CODE(S): L97.522 - Non-pressure chronic ulcer of other part of left foot with fat layer exposed (3) Peripheral vascular occlusive disease: CODE(S): I73.9 - Peripheral vascular disease, unspecified (4) Diabetes mellitus with neuropathy: CODE(S): E11.40 - Type 2 diabetes mellitus with diabetic neuropathy, unspecified (5) Osteomyelitis: CODE(S): M86.9 - Osteomyelitis, unspecified PLAN: I reviewed and discussed his plan. Debridement was performed today as noted. He was advised to change his dressing daily with Santyl applied nickel thickness. To change his daily wash with antibacterial soap and water. To avoid soaking activities. He was previously diagnosed with osteomyelitis and underwent a fifth ray resection of the left foot at [facility] on 02-04-21. The diagnosis was confirmed with pathological acute osteomyelitis. The clearance fragment that was sent to pathology was negative for acute osteomyelitis. The clearance fragment that was sent to microbiology did not demonstrate some E. coli growth. He was discharged home from the hospital on oral Augmentin and Cipro. No local signs of infection are noted at this time; to monitor. Previous labs were reviewed. Hemoglobin A1c on 02-05-21 was 7.5%. On 01-27-21 his ESR was 38 and C-reactive protein was 14.5. On 02-06-21 his white blood cell count was 13.4. Serial labs will be monitored. I recommend continued offloading surgical site areas with a surgical shoe. To try to keep mostly weight on the heel. I previously fabricated dual density offloading liners today to take additional pressure off of the ulcer site. I recommend nutritional supplementation optimize healing including Neri nutritional supplement pack daily. It is also noted that his A1c is still elevated which also does not have a good healing outcome. I advised him on continued improved diabetic control. If lack of healing persists, palliative wound care plan versus more proximal amputation will be considered. Note: [employer] speech recognition power brake rebuilder software was used to create portions of this document. Sound-alike and misspelled words, as well as other power brake rebuilder errors may be contained in the documentation.
== END 2021-05-14 23:59 ==
LOC: WC 13:15
PROVIDERS: PCP Family Medicine; Referring Provider Family Medicine; Visit Provider Podiatrist
DX: E11.621 Type 2 diabetes mellitus with foot ulcer (principal); L97.522 Non-pressure chronic ulcer of other part of left foot with fat layer exposed; E11.40 Type 2 diabetes mellitus with diabetic neuropathy, unspecified; E11.51 Type 2 diabetes mellitus with diabetic peripheral angiopathy without gangrene; Z89.432 Acquired absence of left foot
CPT/HCPCS: 11042

== ENCOUNTER 2021-06-01 13:30 | Outpatient (RCR) | payer MEDICARE, SELFPAY ==
[2021-05-15 00:24] VITALS: BP 130/67; PULSE 71; RESP 18; TEMP 36
[2021-05-18 13:41] VITALS: BP 130/66; PULSE 65; RESP 16; TEMP 36.1; BMI 23.6
--- NOTE | 2021-05-18 16:42 | PN.PCM_ITS ---
History of Present Illness Date of Service: 05/18/21 Chief Complaint: Left foot ulcer History of Wound: This 75-year-old male was seen for left foot ulcer return to the wound healing center today. He had recent lower extremity vascular successful intervention performed with Dr. Bowens. It is noted he has a low ejection fraction and also small vessel disease is suspected. I performed a fifth ray resection of the left foot at [facility] on 02/04/2021 for treatment of nonhealing ulcer and osteomyelitis. He has been changing the dressing as advised with darlin. He wears offloading surgical shoe. He is with his today. Progress of Wound: Improving Objective Data Objective Data Vital Signs: Vital Signs Temp Pulse Resp BP 97.0 F L 65 16 130/66 H 05/18/21 13:41 05/18/21 13:41 05/18/21 13:41 05/18/21 13:41 Weight: 60.781 kg Body Mass Index (BMI) 23.6 Physical Exam Const alert and oriented x3 General Appearance: cooperative HEENT normocephalic Extremity Extremity Narrative: No calf tenderness Diminished pulses Muscle wasting noted General Extremity: edema and no tenderness to palpation of joints or extremities; Negative for cyanosis Skin Skin Narrative: no purulence, no streaking, no odor, no infection. atrophic and hairless skin. resolved eschar and decreased fibrous ulcer base with some granulation tissue noted. no exposed bone . peripheral thin epithelialization noted and continued. Reduced ulcer size noted General Skin Exam: Negative for erythema Neuro Neuro Narrative: lack of normal epicritic sensation via light touch is consistent with neuropathy status Psych cooperative and affect normal Debridement Note Debridement Note Post-Debridement Measurements and Additional Note: Post-Debridement Measurements/Treatment - Nurse 1 - General Ulcer Assessment Start: 05/18/21 13:41 Freq: Status: Active Protocol: WC.LOWEXT Activity Type Activity Date Activity User E-Sign Co-Sign Detail Recorded Client Recorded Date Recorded By Document 05/18/21 13:41 ML Desktop 05/18/21 13:48 ML 05/18/21 13:41 - Today's Visit Information Type of service 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 ) Arrival Mode Ambulatory Transfer Assistance None Patient Identification Verified (Name & Yes ) Patient Requires Transmission-Based No Precautions Safety Precautions NA Finger Stick Blood Sugar(mg/dl) (if 74 indicated): Blood Sugar Stated by Patient Height and Weight Body Mass Index (BMI) 23.6 BMI Classification Normal Vital Signs Temperature (97.8 F-99.1 F) 97.0 F L Temperature Source Temporal Pulse Rate (60-100) 65 Pulse Location Monitor Respiratory Rate (12-18) 16 Respiratory rate source Observation Blood Pressure (90/60-120/80) 130/66 H Blood Pressure Mean (mm Hg) 87 Source Monitor Position Sitting Blood Pressure Location Left Arm History Since Last Visit- (Skip if this is Patient's initial visit) Have you changed medications since your No last visit? Any new allergies or adverse reactions No Had a fall/change in ADL's that may No increase risk of falls Signs or symptoms of abuse and/or No neglect since last visit Have you been in the hospital since your No last visit? Has dressing in place as prescribed Yes Has compression in place as prescribed N/A Has offloadiing in place as prescribed N/A Experienced any changes in pain level or No management Left Footwear Regular Shoe Right Footwear Regular Shoe Pain Scale: 0-10 Numeric Is Patient Pain Free? Yes WC - Nurse 1 - General Ulcer Measurement Start: 05/18/21 13:41 Freq: Status: Active Protocol: Activity Type Activity Date Activity User E-Sign Co-Sign Detail Recorded Client Recorded Date Recorded By Document 05/18/21 13:41 ML Desktop 05/18/21 13:48 ML 05/18/21 13:41 Wound Center Nurse 1 #1- L LATERAL FOOT -Current Size (cm) - Length 2.5 -Current Size (cm) - Width 1 -Current Size (cm) - Depth 0.3 -Total Square Cm 2.5 -Exudate Amt Small -Exudate Type Serosanguineous -Wound Margin Distinct, Outline Attached -Granulation Amt Medium (34-66%) -Slough/Fibrin Yes -Necrosis Amt Medium (34-66%) -Necrotic Tissue Type Adherent Slough -Texture (Kasia-wound Skin Appearance) Not Assessed -Moisture (Kasia-wound Skin Appearance) Assessed -Color (Kasia-wound Skin Appearance) Assessed -Tenderness on Palpation (Kasia-wound No Skin Appearance) -Ulcer Cleansing Wound Cleanser -Foul Odor after Cleansing No -Anesthetic Used 4% Lidocaine Solution WC - Nurse 2 - General Ulcer CM Notes Start: 05/18/21 13:41 Freq: Status: Active Protocol: Activity Type Activity Date Activity User E-Sign Co-Sign Detail Recorded Client Recorded Date Recorded By Document 05/18/21 13:56 [id number] 05/18/21 13:58 05/18/21 13:56 Wound Center Nurse 2 -Time 13:56 -Correct Patient Yes -Correct Side, Site, Position Yes -Correct Procedure Yes -Procedure Performed Yes -Type of Procedure Debridement -Clinical Debridement Subcutaneous -Tissue Removed Subcutaneous -Post Debridement (cm) - Length 2.6 -Post Debridement (cm) - Width 1.1 -Post Debridement (cm) - Depth 0.3 -Total Square (Post) (cm) 2.86 -Area of Debridement (cm) - Length 2.6 -Area of Debridement (cm) - Width 1.1 -Total Square (Area) (cm) 2.86 -Tunneling No -Undermining/Tunneling No -Circular Undermining No -Wound/Ulcer Outcome Not Healed -Ulcer Cleansing Rinsed/ Irrigated with Saline -Foul Odor after Cleansing No -Bioengineered Tissue No -Bleeding Controlled with Pressure -Offloading Yes -Type of Offloading Surgical Shoe -Treatment Response Procedure Tolerated Well -Debridement - Subq, 1st 20sq cm Yes Pain Scale: 0-10 Numeric Is Patient Pain Free? Yes - Nurse 3 - General Ulcer D/C NN Start: 05/18/21 13:41 Freq: Status: Active Protocol: Activity Type Activity Date Activity User E-Sign Co-Sign Detail Recorded Client Recorded Date Recorded By Document 05/18/21 14:19 [place] Desktop 05/18/21 14:20 [place] 05/18/21 14:19 Wound Care Nurse 3 #1- L LATERAL FOOT -Ulcer Cleansing Rinsed/ Irrigated with Saline -Foul Odor after Cleansing No -Primary Dressing Applied C Hydrogel ($) -Primary Dressing Covered/Secured with Dry Gauze, Secured with Tape WC - Visit Discharge Discharge Condition Stable Ambulatory Status Ambulatory Accompanied by Medication Reconcilliation completed & No provided to patient/care provider Clinical Summary of Care Provided Yes Wound debrided: lateral forefoot Wound Grade/Stage: 1 Type of Debridement: Excisional debridement Anesthesia Used: 4% Lidocaine Solution Depth: in the subcutaneous layer Percentage of wound debrided: 100 Instrument Used: #15 blade Tissue Removed: fibrous, devitalized subcutaneous, biofilm, slough Severity: Fat Layer Exposed Amount of bleeding with debridement: Mild Bleeding Controlled with: Pressure Patient tolerated procedure: Patient tolerated procedure well Assessment/Plan Assessment/Plan (1) Delayed wound healing: CODE(S): T14.8XXD - Other injury of unspecified body region, subsequent encounter (2) Ulcer of left foot with fat layer exposed: CODE(S): L97.522 - Non-pressure chronic ulcer of other part of left foot with fat layer exposed (3) Peripheral vascular occlusive disease: CODE(S): I73.9 - Peripheral vascular disease, unspecified (4) Diabetes mellitus with neuropathy: CODE(S): E11.40 - Type 2 diabetes mellitus with diabetic neuropathy, unspecified (5) Osteomyelitis: CODE(S): M86.9 - Osteomyelitis, unspecified PLAN: I reviewed and discussed his plan. Debridement was performed today as noted. He was advised to change his dressing daily with Santyl applied nickel thickness. To change his daily wash with antibacterial soap and water. To avoid soaking activities. He was previously diagnosed with osteomyelitis and underwent a fifth ray resection of the left foot at [facility] on 02-04-21. The diagnosis was confirmed with pathological acute osteomyelitis. The clearance fragment that was sent to pathology was negative for acute osteomyelitis. The clearance fragment that was sent to microbiology did not demonstrate some E. coli growth. He was discharged home from the hospital on oral Augmentin and Cipro. No local signs of infection are noted at this time; to monitor. Previous labs were reviewed. Hemoglobin A1c on 02-05-21 was 7.5%. On 01-27-21 his ESR was 38 and C-reactive protein was 14.5. On 02-06-21 his white blood cell count was 13.4. Serial labs will be monitored. I recommend continued offloading surgical site areas with a surgical shoe. To try to keep mostly weight on the heel. I previously fabricated dual density offloading liners today to take additional pressure off of the ulcer site. I recommend nutritional supplementation optimize healing including Neri nutritional supplement pack daily. It is also noted that his A1c is still elevated which also does not have a good healing outcome. I advised him on continued improved diabetic control. If lack of healing persists, palliative wound care plan versus more proximal amputation will be considered. Note: [employer] speech recognition production clerks supervisor software was used to create portions of this document. Sound-alike and misspelled words, as well as other production clerks supervisor errors may be contained in the documentation.
[2021-06-01 13:25] VITALS: BP 133/59; PULSE 64; RESP 16; TEMP 36.2; BMI 23.6
--- NOTE | 2021-06-01 14:12 | PCM.PROGNOTE ---
Objective Data Objective Data Vital Signs: Vital Signs Temp Pulse Resp BP 97.2 F L 64 16 133/59 H 06/01/21 13:25 06/01/21 13:25 06/01/21 13:25 06/01/21 13:25 Oxygen Delivery Method Room Air Weight: 60.781 kg Body Mass Index (BMI) 23.6
--- NOTE | 2021-06-01 15:48 | PN.PCM_ITS ---
History of Present Illness Date of Service: 06/01/21 Chief Complaint: Left foot ulcer History of Wound: This 75-year-old male was seen for left foot ulcer return to the wound healing center today. He had recent lower extremity vascular successful intervention performed with Dr. Bowens. It is noted he has a low ejection fraction and also small vessel disease is suspected. I performed a fifth ray resection of the left foot at [facility] on 02/04/2021 for treatment of nonhealing ulcer and osteomyelitis. He has been changing the dressing as advised with darlin. He wears offloading surgical shoe. He is with his today. Progress of Wound: Improving Objective Data Objective Data Vital Signs: Vital Signs Temp Pulse Resp BP 97.2 F L 64 16 133/59 H 06/01/21 13:25 06/01/21 13:25 06/01/21 13:25 06/01/21 13:25 Oxygen Delivery Method Room Air Weight: 60.781 kg Body Mass Index (BMI) 23.6 Physical Exam Const alert and oriented x3 General Appearance: cooperative HEENT normocephalic Extremity Extremity Narrative: No calf tenderness Diminished pulses Muscle wasting noted General Extremity: edema and no tenderness to palpation of joints or extremities; Negative for cyanosis Skin Skin Narrative: no purulence, no streaking, no odor, no infection. atrophic and hairless skin. resolved eschar and decreased fibrous ulcer base with some granulation tissue noted. no exposed bone . peripheral thin epithelialization noted and continued. Reduced ulcer size noted General Skin Exam: Negative for erythema Neuro Neuro Narrative: lack of normal epicritic sensation via light touch is consistent with neuropathy status Psych cooperative and affect normal Debridement Note Debridement Note Post-Debridement Measurements and Additional Note: Post-Debridement Measurement s/Treatment - Nurse 1 - General Ulcer Assessment Start: 05/18/21 13:41 Freq: Status: Active Protocol: [email or web address].[email or web address] Activity Type Activity Date Activity User E-Sign Co-Sign Detail Recorded Client Recorded Date Recorded By Document 05/18/21 13:41 ML Desktop 05/18/21 13:48 ML Document 06/01/21 13:25 DL [id number] 06/01/21 13:29 DL 05/18/21 06/01/21 13:41 13:25 - Today's Visit Information Type of service Follow-up Visit Follow-up Visit (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 (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 ) ) Arrival Mode Ambulatory Ambulatory Transfer Assistance None None Accompanied by Patient Identification Verified (Name & Yes Yes ) Patient Requires Transmission-Based No No Precautions Safety Precautions NA Finger Stick Blood Sugar(mg/dl) (if 74 100 indicated): Blood Sugar Stated by Stated by Patient Patient Height and Weight Body Mass Index (BMI) 23.6 23.6 BMI Classification Normal Normal Vital Signs Temperature (97.8 F-99.1 F) 97.0 F L 97.2 F L Temperature Source Temporal Temporal Pulse Rate (60-100) 65 64 Pulse Location Monitor Monitor Respiratory Rate (12-18) 16 16 Respiratory rate source Observation Observation Oxygen Delivery Method Room Air Blood Pressure (90/60-120/80) 130/66 H 133/59 H Blood Pressure Mean (mm Hg) 87 83 Source Monitor Monitor Position Sitting Sitting Blood Pressure Location Left Arm Left Arm History Since Last Visit- (Skip if this is Patient's initial visit) Have you changed medications since your No No last visit? Any new allergies or adverse reactions No No Had a fall/change in ADL's that may No No increase risk of falls Signs or symptoms of abuse and/or No No neglect since last visit Have you been in the hospital since your No No last visit? Has dressing in place as prescribed Yes Yes Has compression in place as prescribed N/A N/A Has offloadiing in place as prescribed N/A Yes Experienced any changes in pain level or No No management Left Footwear Regular Shoe Surgical Shoe with pressure relief insole Right Footwear Regular Shoe Regular Shoe Pain Scale: 0-10 Numeric Is Patient Pain Free? Yes WC - Nurse 1 - General Ulcer Measurement Start: 05/18/21 13:41 Freq: Status: Active Protocol: Activity Type Activity Date Activity User E-Sign Co-Sign Detail Recorded Client Recorded Date Recorded By Document 05/18/21 13:41 ML Desktop 05/18/21 13:48 ML Document 06/01/21 13:25 DL [id number] 06/01/21 13:29 DL 05/18/21 06/01/21 13:41 13:25 Wound Center Nurse 1 #1- L LATERAL FOOT -Combined with other wound No -Current Size (cm) - Length 2.5 2.7 -Current Size (cm) - Width 1 0.5 -Current Size (cm) - Depth 0.3 0.3 -Total Square Cm 2.5 1.35 -Photo Taken No -Epithelialization None Present -Tunneling No -Undermining/Tunneling No -Circular Undermining No -Exudate Amt Small Medium -Exudate Type Serosanguineous Serosanguineous -Wound Margin Distinct, Distinct, Outline Outline Attached Attached -Granulation Amt Medium (34-66%) None Present (0 %) -Slough/Fibrin Yes Yes -Necrosis Amt Medium (34-66%) Large (67-100%) -Necrotic Tissue Type Adherent Slough Adherent Slough -Texture (Kasia-wound Skin Appearance) Not Assessed Assessed, Scarring -Moisture (Kasia-wound Skin Appearance) Assessed Assessed, Maceration -Color (Kasia-wound Skin Appearance) Assessed Assessed,Palor -Temperature (Kasia-wound Skin No Abnormality Appearance) (Pt Warm) -Tenderness on Palpation (Kasia-wound No No Skin Appearance) -Ulcer Cleansing Wound Cleanser Rinsed/ Irrigated with Saline -Foul Odor after Cleansing No No -Anesthetic Used 4% Lidocaine 5% Lidocaine Solution Gel WC - Nurse 2 - General Ulcer CM Notes Start: 05/18/21 13:41 Freq: Status: Active Protocol: Activity Type Activity Date Activity User E-Sign Co-Sign Detail Recorded Client Recorded Date Recorded By Document 05/18/21 13:56 [id number] 05/18/21 13:58 Document 06/01/21 14:07 [id number] 06/01/21 14:08 05/18/21 06/01/21 13:56 14:07 Wound Center Nurse 2 #1- L LATERAL FOOT -Time 13:56 14:07 -Correct Patient Yes Yes -Correct Side, Site, Position Yes Yes -Correct Procedure Yes Yes -Procedure Performed Yes Yes -Type of Procedure Debridement Debridement -Clinical Debridement Subcutaneous Subcutaneous -Tissue Removed Subcutaneous Dermis -Post Debridement (cm) - Length 2.6 2.8 -Post Debridement (cm) - Width 1.1 0.5 -Post Debridement (cm) - Depth 0.3 0.3 -Total Square (Post) (cm) 2.86 1.40 -Area of Debridement (cm) - Length 2.6 2.8 -Area of Debridement (cm) - Width 1.1 0.5 -Total Square (Area) (cm) 2.86 1.40 -Tunneling No No -Undermining/Tunneling No No -Circular Undermining No No -Wound/Ulcer Outcome Not Healed Not Healed -Ulcer Cleansing Rinsed/ Rinsed/ Irrigated with Irrigated with Saline Saline -Foul Odor after Cleansing No No -Bioengineered Tissue No No -Bleeding Controlled with Pressure Pressure -Offloading Yes Yes -Type of Offloading Surgical Shoe Surgical Shoe -Treatment Response Procedure Procedure Tolerated Well Tolerated Well -Debridement - Subq, 1st 20sq cm Yes Yes Pain Scale: 0-10 Numeric Is Patient Pain Free? Yes Yes - Nurse 3 - General Ulcer D/C NN Start: 05/18/21 13:41 Freq: Status: Active Protocol: Activity Type Activity Date Activity User E-Sign Co-Sign Detail Recorded Client Recorded Date Recorded By Document 05/18/21 14:19 [place] Desktop 05/18/21 14:20 [place] Document 06/01/21 14:19 RB [id number] 06/01/21 14:19 RB 05/18/21 06/01/21 14:19 14:19 Wound Care Nurse 3 #1- L LATERAL FOOT -Ulcer Cleansing Rinsed/ Irrigated with Saline -Foul Odor after Cleansing No -Primary Dressing Applied C Hydrogel ($) -Other Dressing santyl -Primary Dressing Covered/Secured with Dry Gauze, Dry Gauze,Dry Secured with Gauze & Roll Tape Gauze,Secured with Tape Pain Scale: 0-10 Numeric Is Patient Pain Free? Yes - Visit Discharge Discharge Condition Stable Stable Ambulatory Status Ambulatory Ambulatory Transportation Private Auto Accompanied by Medication Reconcilliation completed & No No provided to patient/care provider Clinical Summary of Care Provided Yes Yes Wound debrided: lateral left foot Wound Grade/Stage: Type of Debridement: Excisional debridement Anesthesia Used: 4% Lidocaine Solution Depth: in the subcutaneous layer Percentage of wound debrided: 100 Instrument Used: #15 blade Tissue Removed: fibrous, devitalized subcutaneous, biofilm, slough Severity: Fat Layer Exposed Amount of bleeding with debridement: Mild Bleeding Controlled with: Pressure Patient tolerated procedure: Patient tolerated procedure well Assessment/Plan Assessment/Plan (1) Delayed wound healing: CODE(S): T14.8XXD - Other injury of unspecified body region, subsequent encounter (2) Ulcer of left foot with fat layer exposed: CODE(S): L97.522 - Non-pressure chronic ulcer of other part of left foot with fat layer exposed (3) Peripheral vascular occlusive disease: CODE(S): I73.9 - Peripheral vascular disease, unspecified (4) Diabetes mellitus with neuropathy: CODE(S): E11.40 - Type 2 diabetes mellitus with diabetic neuropathy, unspecified (5) Osteomyelitis: CODE(S): M86.9 - Osteomyelitis, unspecified PLAN: I reviewed and discussed his plan. Debridement was performed today as noted. He was advised to change his dressing daily with Santyl applied nickel thickness. To change his daily wash with antibacterial soap and water. To avoid soaking activities. His recent increased improvement is noted. He was previously diagnosed with osteomyelitis and underwent a fifth ray resection of the left foot at [facility] on 02-04-21. The diagnosis was confirmed with pathological acute osteomyelitis. The clearance fragment that was sent to pathology was negative for acute osteomyelitis. The clearance fragment that was sent to microbiology did not demonstrate some E. coli growth. He was discharged home from the hospital on oral Augmentin and Cipro. No local signs of infection are noted at this time; to monitor. Previous labs were reviewed. Hemoglobin A1c on 02-05-21 was 7.5%. On 01-27-21 his ESR was 38 and C-reactive protein was 14.5. On 02-06-21 his white blood cell count was 13.4. Serial labs will be monitored. I recommend continued offloading surgical site areas with a surgical shoe. To try to keep mostly weight on the heel. I previously fabricated dual density offloading liners today to take additional pressure off of the ulcer site. I recommend nutritional supplementation optimize healing including Neri nutritional supplement pack daily. It is also noted that his A1c is still elevated which also does not have a good healing outcome. I advised him on continued improved diabetic control. If lack of healing persists, palliative wound care plan versus more proximal amputation will be considered. Note: [employer] speech recognition undertaker helper software was used to create portions of this document. Sound-alike and misspelled words, as well as other undertaker helper errors may be contained in the documentation.
== END 2021-06-14 23:59 ==
LOC: WC 13:30
PROVIDERS: PCP Family Medicine; Referring Provider Family Medicine; Visit Provider Podiatrist
DX: E11.621 Type 2 diabetes mellitus with foot ulcer (principal); L97.522 Non-pressure chronic ulcer of other part of left foot with fat layer exposed; E11.51 Type 2 diabetes mellitus with diabetic peripheral angiopathy without gangrene; E11.40 Type 2 diabetes mellitus with diabetic neuropathy, unspecified
CPT/HCPCS: 11042

== ENCOUNTER 2021-07-13 13:15 | Outpatient (RCR) | payer MEDICARE, SELFPAY ==
[2021-06-15 00:29] VITALS: BP 133/59; PULSE 64; RESP 16; TEMP 36.2; BMI 23.6
[2021-06-22 13:18] VITALS: BP 127/64; PULSE 68; TEMP 36.1; BMI 23.6
--- NOTE | 2021-06-22 13:52 | PCM.WC.PN ---
History of Present Illness Date of Service: 06/22/21 Chief Complaint: Left foot ulcer History of Wound: This 75-year-old male was seen for left foot ulcer return to the wound healing center today. He had recent lower extremity vascular successful intervention performed with Dr. Bowens. It is noted he has a low ejection fraction and also small vessel disease is suspected. I performed a fifth ray resection of the left foot at [facility] on 02/04/2021 for treatment of nonhealing ulcer and osteomyelitis. He has been changing the dressing as advised with darlin. He wears offloading surgical shoe. He is with his today. He reports improvements with size reduction and decreased discomfort. Progress of Wound: Improving Objective Data Objective Data Vital Signs: Vital Signs Temp Pulse Resp BP 97.0 F L 68 16 127/64 H 06/22/21 13:18 06/22/21 13:18 06/15/21 00:29 06/22/21 13:18 Weight: 60.781 kg Body Mass Index (BMI) 23.6 Physical Exam Const alert and oriented x3 General Appearance: cooperative HEENT normocephalic Extremity Extremity Narrative: No calf tenderness Diminished pulses Muscle wasting noted General Extremity: edema and no tenderness to palpation of joints or extremities; Negative for cyanosis Skin Skin Narrative: no purulence, no streaking, no odor, no infection. atrophic and hairless skin. resolved eschar and decreased fibrous ulcer base with some granulation tissue noted. no exposed bone . peripheral thin epithelialization noted and continued. Reduced ulcer size noted General Skin Exam: Negative for erythema Neuro Neuro Narrative: lack of normal epicritic sensation via light touch is consistent with neuropathy status Psych cooperative and affect normal Debridement Note Debridement Note Wound debrided: Lateral left foot Wound Grade/Stage: Type of Debridement: Excisional debridement Anesthesia Used: 4% Lidocaine Solution Depth: in the subcutaneous layer Percentage of wound debrided: 100 Instrument Used: #15 blade Tissue Removed: fibrous, devitalized subcutaneous, biofilm, slough Severity: Fat Layer Exposed Amount of bleeding with debridement: Mild Bleeding Controlled with: Pressure Patient tolerated procedure: Patient tolerated procedure well Post-Debridement Measurements and Additional Note: Post-Debridement Measurements/Treatment [id number] - Nurse 1 - General Ulcer Assessment Start: 06/22/21 13:18 Freq: Status: Active Protocol: JV Activity Type Activity Date Activity User E-Sign Co-Sign Detail Recorded Client Recorded Date Recorded By Document 06/22/21 13:18 KR [id number] 06/22/21 13:22 KR 06/22/21 13:18 WC - Today's Visit Information Type of service Follow-up Visit (Physician/SEPARATIONS SCIENTIST ) Arrival Mode Ambulatory Patient Identification Verified (Name & Yes ) Height and Weight Body Mass Index (BMI) 23.6 BMI Classification Normal Vital Signs Temperature (97.8 F-99.1 F) 97.0 F L Temperature Source Temporal Pulse Rate (60-100) 68 Pulse Location Monitor Blood Pressure (90/60-120/80) 127/64 H Blood Pressure Mean (mm Hg) 85 Source Monitor Position Semi-Fowlers Blood Pressure Location Right Arm History Since Last Visit- (Skip if this is Patient's initial visit) Have you changed medications since your No last visit? Any new allergies or adverse reactions No Had a fall/change in ADL's that may No increase risk of falls Signs or symptoms of abuse and/or No neglect since last visit Have you been in the hospital since your No last visit? Has dressing in place as prescribed Yes Has compression in place as prescribed N/A Has offloadiing in place as prescribed N/A Experienced any changes in pain level or No management Pain Scale: 0-10 Numeric Is Patient Pain Free? Yes - Nurse 1 - General Ulcer Measurement Start: 06/22/21 13:18 Freq: Status: Active Protocol: Activity Type Activity Date Activity User E-Sign Co-Sign Detail Recorded Client Recorded Date Recorded By Document 06/22/21 13:18 KR [id number] 06/22/21 13:22 FREDDIE 06/22/21 13:18 Wound Center Nurse 1 #1- L LATERAL FOOT -Current Size (cm) - Length 2.5 -Current Size (cm) - Width 1.5 -Current Size (cm) - Depth 0.2 -Total Square Cm 3.75 -Exudate Amt Small -Exudate Type Serosanguineous -Wound Margin Distinct, Outline Attached -Granulation Amt Medium (34-66%) -Granulation Quality [place] -Necrosis Amt Medium (34-66%) -Necrotic Tissue Type Adherent Slough -Texture (Kasia-wound Skin Appearance) No Abnormality, Scarring -Moisture (Kasia-wound Skin Appearance) Assessed -Color (Kasia-wound Skin Appearance) No Abnormality, Assessed -Temperature (Kasia-wound Skin No Abnormality Appearance) (Pt Warm) -Tenderness on Palpation (Kasia-wound No Skin Appearance) -Ulcer Cleansing Rinsed/ Irrigated with Saline -Foul Odor after Cleansing No -Anesthetic Used 4% Lidocaine Solution - Nurse 2 - General Ulcer CM Notes Start: 06/22/21 13:18 Freq: Status: Active Protocol: Activity Type Activity Date Activity User E-Sign Co-Sign Detail Recorded Client Recorded Date Recorded By Document 06/22/21 13:40 [id number] 06/22/21 13:44 06/22/21 13:40 Wound Center Nurse 2 -Time 13:40 -Correct Patient Yes -Correct Side, Site, Position Yes -Correct Procedure Yes -Procedure Performed Yes -Type of Procedure Debridement -Clinical Debridement Subcutaneous -Tissue Removed Subcutaneous -Post Debridement (cm) - Length 4.5 -Post Debridement (cm) - Width 0.8 -Post Debridement (cm) - Depth 0.3 -Total Square (Post) (cm) 3.60 -Area of Debridement (cm) - Length 4.5 -Area of Debridement (cm) - Width 0.8 -Total Square (Area) (cm) 3.60 -Tunneling No -Undermining/Tunneling No -Circular Undermining No -Wound/Ulcer Outcome Not Healed -Ulcer Cleansing Rinsed/ Irrigated with Saline -Foul Odor after Cleansing No -Bioengineered Tissue No -Bleeding Controlled with Pressure -Offloading Yes -Type of Offloading Surgical Shoe -Treatment Response Procedure Tolerated Well -Debridement - Subq, 1st 20sq cm Yes Pain Scale: 0-10 Numeric Is Patient Pain Free? Yes - Nurse 3 - General Ulcer D/C NN Start: 06/22/21 13:18 Freq: Status: Active Protocol: Activity Type Activity Date Activity User E-Sign Co-Sign Detail Recorded Client Recorded Date Recorded By Document 06/22/21 13:48 [facility] [id number] 06/22/21 13:49 [facility] 06/22/21 13:48 Wound Care Nurse 3 #1- L LATERAL FOOT -Ulcer Cleansing Rinsed/ Irrigated with Saline -Foul Odor after Cleansing No -Primary Dressing Applied Other -Other Dressing hydrogel -Primary Dressing Covered/Secured with Dry Gauze & Roll Gauze, Secured with Tape -Other Covering drsg per rb rn Treatment Response Procedure Tolerated Well Pain Scale: 0-10 Numeric Is Patient Pain Free? Yes WC - Visit Discharge Discharge Condition Stable Ambulatory Status Ambulatory Transportation Private Auto Accompanied by Assessment/Plan Assessment/Plan (1) Delayed wound healing: CODE(S): T14.8XXD - Other injury of unspecified body region, subsequent encounter (2) Ulcer of left foot with fat layer exposed: CODE(S): L97.522 - Non-pressure chronic ulcer of other part of left foot with fat layer exposed (3) Peripheral vascular occlusive disease: CODE(S): I73.9 - Peripheral vascular disease, unspecified (4) Diabetes mellitus with neuropathy: CODE(S): E11.40 - Type 2 diabetes mellitus with diabetic neuropathy, unspecified (5) Osteomyelitis: CODE(S): M86.9 - Osteomyelitis, unspecified PLAN: I reviewed and discussed his plan. Debridement was performed today as noted. He was advised to change his dressing daily with Santyl applied nickel thickness. To change his daily wash with antibacterial soap and water. To avoid soaking activities. His recent increased improvement is noted. He was previously diagnosed with osteomyelitis and underwent a fifth ray resection of the left foot at [facility] on 02-04-21. The diagnosis was confirmed with pathological acute osteomyelitis. The clearance fragment that was sent to pathology was negative for acute osteomyelitis. The clearance fragment that was sent to microbiology did not demonstrate some E. coli growth. He was discharged home from the hospital on oral Augmentin and Cipro; completed. No local signs of infection are noted at this time; to monitor. Previous labs were reviewed. Hemoglobin A1c on 02-05-21 was 7.5%. On 01-27-21 his ESR was 38 and C-reactive protein was 14.5. On 02-06-21 his white blood cell count was 13.4. Serial labs will be monitored. I recommend continued offloading surgical site areas with a surgical shoe. To try to keep mostly weight on the heel. I previously fabricated dual density offloading liners today to take additional pressure off of the ulcer site. I recommend nutritional supplementation optimize healing including Neri nutritional supplement pack daily. It is also noted that his A1c is still elevated which also does not have a good healing outcome. I advised him on continued improved diabetic control. If lack of healing persists, palliative wound care plan versus more proximal amputation will be considered. He will return to clinic in 3 weeks and is on a more palliative type plan. He has delayed healing however he is making progressive progress with each visit. Note: [email or web address] speech recognition decorating and assembly supervisor software was used to create portions of this document. Sound-alike and misspelled words, as well as other decorating and assembly supervisor errors may be contained in the documentation.
[2021-07-13 13:10] VITALS: BP 161/53; PULSE 64; TEMP 35.8; BMI 23.6
--- NOTE | 2021-07-13 21:31 | PCM.WC.PN ---
History of Present Illness Date of Service: 07/13/21 Chief Complaint: Left foot ulcer History of Wound: This 75-year-old male was seen for left foot ulcer return to the wound healing center today. He had recent lower extremity vascular successful intervention performed with Dr. Bowens. It is noted he has a low ejection fraction and also small vessel disease is suspected. I performed a fifth ray resection of the left foot at [facility] on 02/04/2021 for treatment of nonhealing ulcer and osteomyelitis. He has been changing the dressing as advised with darlin. He wears offloading surgical shoe. He is with his today. He denies pain today. Progress of Wound: Improving Objective Data Objective Data Vital Signs: Vital Signs Temp Pulse Resp BP 96.5 F L 64 16 161/53 H 07/13/21 13:10 07/13/21 13:10 06/15/21 00:29 07/13/21 13:10 Weight: 60.781 kg Body Mass Index (BMI) 23.6 Physical Exam Extremity Extremity Narrative: No calf tenderness Diminished pulses Muscle wasting noted Skin Skin Narrative: no purulence, no streaking, no odor, no infection. atrophic and hairless skin. resolved eschar and decreased fibrous ulcer base with some granulation tissue noted. no exposed bone . peripheral thin epithelialization noted and continued. Reduced ulcer size noted Neuro Neuro Narrative: lack of normal epicritic sensation via light touch is consistent with neuropathy status Debridement Note Debridement Note Wound debrided: Lateral left foot Wound Grade/Stage: 3 Type of Debridement: Excisional debridement Anesthesia Used: 4% Lidocaine Solution Depth: in the subcutaneous layer Percentage of wound debrided: 100 Instrument Used: #15 blade Tissue Removed: fibrous, devitalized subcutaneous, biofilm, slough Severity: Fat Layer Exposed Amount of bleeding with debridement: Mild Bleeding Controlled with: Pressure Patient tolerated procedure: Patient tolerated procedure well Post-Debridement Measurements and Additional Note: Post-Debridement Measurements/Treatment WC - Nurse 1 - General Ulcer Assessment Start: 06/22/21 13:18 Freq: Status: Active Protocol: JV Activity Type Activity Date Activity User E-Sign Co-Sign Detail Recorded Client Recorded Date Recorded By Document 06/22/21 13:18 FREDDIE [id number] 06/22/21 13:22 KR Document 07/13/21 13:10 FREDDIE [id number] 07/13/21 13:14 KR 06/22/21 07/13/21 13:18 13:10 - Today's Visit Information Type of service Follow-up Visit Follow-up Visit (Physician/PUBLIC HEALTH EPIDEMIOLOGIST (Physician/PUBLIC HEALTH EPIDEMIOLOGIST ) ) Arrival Mode Ambulatory Ambulatory Patient Identification Verified (Name & Yes Yes ) Height and Weight Body Mass Index (BMI) 23.6 23.6 BMI Classification Normal Normal Vital Signs Temperature (97.8 F-99.1 F) 97.0 F L 96.5 F L Temperature Source Temporal Temporal Pulse Rate (60-100) 68 64 Pulse Location Monitor Monitor Blood Pressure (90/60-120/80) 127/64 H 161/53 H Blood Pressure Mean (mm Hg) 85 89 Source Monitor Monitor Position Semi-Fowlers Sitting Blood Pressure Location Right Arm Right Arm History Since Last Visit- (Skip if this is Patient's initial visit) Have you changed medications since your No No last visit? Any new allergies or adverse reactions No No Had a fall/change in ADL's that may No No increase risk of falls Signs or symptoms of abuse and/or No No neglect since last visit Have you been in the hospital since your No No last visit? Has dressing in place as prescribed Yes Yes Has compression in place as prescribed N/A N/A Has offloadiing in place as prescribed N/A N/A Experienced any changes in pain level or No No management Left Footwear Regular Shoe Right Footwear Regular Shoe Pain Scale: 0-10 Numeric Is Patient Pain Free? Yes Yes - Nurse 1 - General Ulcer Measurement Start: 06/22/21 13:18 Freq: Status: Active Protocol: Activity Type Activity Date Activity User E-Sign Co-Sign Detail Recorded Client Recorded Date Recorded By Document 06/22/21 13:18 KR [id number] 06/22/21 13:22 KR Document 07/13/21 13:10 KR [id number] 07/13/21 13:14 KR 06/22/21 07/13/21 13:18 13:10 Wound Center Nurse 1 #1- L LATERAL FOOT -Current Size (cm) - Length 2.5 2.4 -Current Size (cm) - Width 1.5 0.8 -Current Size (cm) - Depth 0.2 0.3 -Total Square Cm 3.75 1.92 -Exudate Amt Small Medium -Exudate Type Serosanguineous Serosanguineous -Wound Margin Distinct, Distinct, Outline Outline Attached Attached -Granulation Amt Medium (34-66%) Medium (34-66%) -Granulation Quality [place] -Necrosis Amt Medium (34-66%) Medium (34-66%) -Necrotic Tissue Type Adherent Slough Adherent Slough -Texture (Kasia-wound Skin Appearance) No Abnormality, Assessed, Scarring Scarring -Moisture (Kasia-wound Skin Appearance) Assessed No Abnormality, Assessed -Color (Kasia-wound Skin Appearance) No Abnormality, No Abnormality, Assessed Assessed -Temperature (Kasia-wound Skin No Abnormality No Abnormality Appearance) (Pt Warm) (Pt Warm) -Tenderness on Palpation (Kasia-wound No No Skin Appearance) -Ulcer Cleansing Rinsed/ Rinsed/ Irrigated with Irrigated with Saline Saline -Foul Odor after Cleansing No No -Anesthetic Used 4% Lidocaine 5% Lidocaine Solution Gel WC - Nurse 2 - General Ulcer CM Notes Start: 06/22/21 13:18 Freq: Status: Active Protocol: Activity Type Activity Date Activity User E-Sign Co-Sign Detail Recorded Client Recorded Date Recorded By Document 06/22/21 13:40 [id number] 06/22/21 13:44 Document 07/13/21 13:31 [id number] 07/13/21 13:36 06/22/21 07/13/21 13:40 13:31 Wound Center Nurse 2 #1- L LATERAL FOOT -Time 13:40 13:33 -Correct Patient Yes Yes -Correct Side, Site, Position Yes Yes -Correct Procedure Yes Yes -Procedure Performed Yes Yes -Type of Procedure Debridement Debridement -Clinical Debridement Subcutaneous Subcutaneous -Tissue Removed Subcutaneous Subcutaneous -Post Debridement (cm) - Length 4.5 2.5 -Post Debridement (cm) - Width 0.8 0.8 -Post Debridement (cm) - Depth 0.3 0.3 -Total Square (Post) (cm) 3.60 2.00 -Area of Debridement (cm) - Length 4.5 2.5 -Area of Debridement (cm) - Width 0.8 0.8 -Total Square (Area) (cm) 3.60 2.00 -Tunneling No No -Undermining/Tunneling No No -Circular Undermining No No -Wound/Ulcer Outcome Not Healed Not Healed -Ulcer Cleansing Rinsed/ Rinsed/ Irrigated with Irrigated with Saline Saline -Foul Odor after Cleansing No No -Bioengineered Tissue No No -Bleeding Controlled with Pressure Pressure -Offloading Yes Yes -Type of Offloading Surgical Shoe Surgical Shoe -Treatment Response Procedure Procedure Tolerated Well Tolerated Well -Debridement - Open, 1st 20sq cm No -Debridement - Subq, 1st 20sq cm Yes Yes Pain Scale: 0-10 Numeric Is Patient Pain Free? Yes Yes - Nurse 3 - General Ulcer D/C NN Start: 06/22/21 13:18 Freq: Status: Active Protocol: Activity Type Activity Date Activity User E-Sign Co-Sign Detail Recorded Client Recorded Date Recorded By Document 06/22/21 13:48 [facility] [id number] 06/22/21 13:49 [facility] Document 07/13/21 13:53 KR [id number] 07/13/21 13:53 KR 06/22/21 07/13/21 13:48 13:53 Wound Care Nurse 3 #1- L LATERAL FOOT -Ulcer Cleansing Rinsed/ Irrigated with Saline -Foul Odor after Cleansing No -Primary Dressing Applied Other C Hydrogel ($) -Other Dressing hydrogel ABD pad -Primary Dressing Covered/Secured with Dry Gauze & Dry Gauze,Dry Roll Gauze, Gauze & Roll Secured with Gauze,Secured Tape with Tape -Other Covering drsg per rb rn Treatment Response Procedure Tolerated Well Pain Scale: 0-10 Numeric Is Patient Pain Free? Yes Yes - Visit Discharge Discharge Condition Stable Stable Ambulatory Status Ambulatory Ambulatory Transportation Private Auto Private Auto Accompanied by Assessment/Plan Assessment/Plan (1) Delayed wound healing: CODE(S): T14.8XXD - Other injury of unspecified body region, subsequent encounter (2) Ulcer of left foot with fat layer exposed: CODE(S): L97.522 - Non-pressure chronic ulcer of other part of left foot with fat layer exposed (3) Peripheral vascular occlusive disease: CODE(S): I73.9 - Peripheral vascular disease, unspecified (4) Diabetes mellitus with neuropathy: CODE(S): E11.40 - Type 2 diabetes mellitus with diabetic neuropathy, unspecified (5) Osteomyelitis: CODE(S): M86.9 - Osteomyelitis, unspecified PLAN: I reviewed and discussed his plan. Debridement was performed today as noted. He was advised to change his dressing daily with Santyl applied nickel thickness. To change his daily wash with antibacterial soap and water. To avoid soaking activities. His recent increased improvement is noted. He was previously diagnosed with osteomyelitis and underwent a fifth ray resection of the left foot at [facility] on 02-04-21. The diagnosis was confirmed with pathological acute osteomyelitis. The clearance fragment that was sent to pathology was negative for acute osteomyelitis. The clearance fragment that was sent to microbiology did not demonstrate some E. coli growth. He was discharged home from the hospital on oral Augmentin and Cipro; completed. No local signs of infection are noted at this time; to monitor. Previous labs were reviewed. Hemoglobin A1c on 02-05-21 was 7.5%. On 01-27-21 his ESR was 38 and C-reactive protein was 14.5. On 02-06-21 his white blood cell count was 13.4. Serial labs will be monitored. I recommend continued offloading surgical site areas with a surgical shoe. To try to keep mostly weight on the heel. I previously fabricated dual density offloading liners today to take additional pressure off of the ulcer site. I recommend nutritional supplementation optimize healing including Neri nutritional supplement pack daily. It is also noted that his A1c is still elevated which also does not have a good healing outcome. I advised him on continued improved diabetic control. If lack of healing persists, palliative wound care plan versus more proximal amputation will be considered. He will return to clinic in 3 weeks and is on a more palliative type plan. He has delayed healing however he is making progressive progress with each visit. Note: [employer] speech recognition metal rivet machine operator software was used to create portions of this document. Sound-alike and misspelled words, as well as other metal rivet machine operator errors may be contained in the documentation.
== END 2021-07-14 23:59 ==
LOC: WC 13:15
PROVIDERS: PCP Family Medicine; Referring Provider Family Medicine; Visit Provider Podiatrist
DX: E11.621 Type 2 diabetes mellitus with foot ulcer (principal); L97.522 Non-pressure chronic ulcer of other part of left foot with fat layer exposed; E11.40 Type 2 diabetes mellitus with diabetic neuropathy, unspecified; E11.51 Type 2 diabetes mellitus with diabetic peripheral angiopathy without gangrene
CPT/HCPCS: 11042

== ENCOUNTER 2021-08-03 13:00 | Outpatient (RCR) | payer MEDICARE, SELFPAY ==
[2021-07-15 00:23] VITALS: BP 161/53; PULSE 64; RESP 16; TEMP 35.8; BMI 23.6
[2021-08-03 13:14] VITALS: BP 101/60; PULSE 66; RESP 18; TEMP 36.4; BMI 23.6
--- NOTE | 2021-08-03 15:47 | PN.PCM_ITS ---
History of Present Illness Date of Service: 08/03/21 Chief Complaint: Left foot ulcer History of Wound: This 75-year-old male was seen for left foot ulcer return to the wound healing center today. He had recent lower extremity vascular successful intervention performed with Dr. Bowens. It is noted he has a low ejection fraction and also small vessel disease is suspected. I performed a fifth ray resection of the left foot at [facility] on 02/04/2021 for treatment of nonhealing ulcer and osteomyelitis. He has been changing the dressing as advised with darlin. He is with his today. He denies pain today. He presents wearing a regular shoe today. Progress of Wound: Stable and improving Objective Data Objective Data Vital Signs: Vital Signs Temp Pulse Resp BP 97.5 F L 66 18 101/60 08/03/21 13:14 08/03/21 13:14 08/03/21 13:14 08/03/21 13:14 Weight: 60.781 kg Body Mass Index (BMI) 23.6 Physical Exam Extremity Extremity Narrative: No calf tenderness Diminished pulses Muscle wasting noted Skin Skin Narrative: no purulence, no streaking, no odor, no infection. atrophic and hairless skin. resolved eschar and decreased fibrous ulcer base with some granulation tissue noted. no exposed bone . peripheral thin epithelialization noted and continued. Reduced ulcer size noted. dorsal kasia ulcer inflammation; no erythema Neuro Neuro Narrative: lack of normal epicritic sensation via light touch is consistent with neuropathy status Debridement Note Debridement Note Wound debrided: left foot Wound Grade/Stage: 3 Type of Debridement: Excisional debridement Anesthesia Used: 4% Lidocaine Solution Depth: in the subcutaneous layer Percentage of wound debrided: 100 Instrument Used: #15 blade Tissue Removed: fibrous, devitalized subcutaneous, biofilm, slough Severity: Fat Layer Exposed Amount of bleeding with debridement: Mild Bleeding Controlled with: Pressure Patient tolerated procedure: Patient tolerated procedure well Post-Debridement Measurements and Additional Note: Post-Debridement Measurements/Treatment ALFREDO - Nurse 1 - General Ulcer Assessment Start: 08/03/21 13:10 Freq: Status: Active Protocol: JV Activity Type Activity Date Activity User E-Sign Co-Sign Detail Recorded Client Recorded Date Recorded By Document 08/03/21 13:14 DL [id number] 08/03/21 13:19 DL 08/03/21 13:14 - Today's Visit Information Type of service Follow-up Visit (Physician/MAGICIAN/ILLUSIONIST ) Arrival Mode Ambulatory Transfer Assistance None Patient Identification Verified (Name & Yes ) Patient Requires Transmission-Based No Precautions Height and Weight Body Mass Index (BMI) 23.6 BMI Classification Normal Vital Signs Temperature (97.8 F-99.1 F) 97.5 F L Temperature Source Temporal Pulse Rate (60-100) 66 Pulse Location Monitor Respiratory Rate (12-18) 18 Respiratory rate source Observation Blood Pressure (90/60-120/80) 101/60 Blood Pressure Mean (mm Hg) 73 Source Monitor History Since Last Visit- (Skip if this is Patient's initial visit) Have you changed medications since your No last visit? Any new allergies or adverse reactions No Had a fall/change in ADL's that may No increase risk of falls Signs or symptoms of abuse and/or No neglect since last visit Have you been in the hospital since your No last visit? Has dressing in place as prescribed Yes Has compression in place as prescribed N/A Has offloadiing in place as prescribed Yes Experienced any changes in pain level or No management Pain Scale: 0-10 Numeric Is Patient Pain Free? Yes WC - Nurse 1 - General Ulcer Measurement Start: 08/03/21 13:10 Freq: Status: Active Protocol: Activity Type Activity Date Activity User E-Sign Co-Sign Detail Recorded Client Recorded Date Recorded By Document 08/03/21 13:14 DL [id number] 08/03/21 13:19 DL 08/03/21 13:14 Wound Center Nurse 1 #1- L LATERAL FOOT -Current Size (cm) - Length 2.5 -Current Size (cm) - Width 0.5 -Current Size (cm) - Depth 0.3 -Total Square Cm 1.25 -Photo Taken No -Undermining/Tunneling Starts (O'clock 7 ) -Undermining/Tunneling Ends (O'clock) 2 -Maximum Distance #2 (cm) 0.2 -Exudate Amt Small -Exudate Type Serosanguineous -Wound Margin Distinct, Outline Attached -Granulation Amt Medium (34-66%) -Granulation Quality [place] -Necrosis Amt Medium (34-66%) -Necrotic Tissue Type Adherent Slough -Structure Exposed N/A -Texture (Kasia-wound Skin Appearance) Localized Edema -Moisture (Kasia-wound Skin Appearance) Maceration -Color (Kasia-wound Skin Appearance) Erythema,Rubor -Temperature (Kasia-wound Skin No Abnormality Appearance) (Pt Warm) -Tenderness on Palpation (Kasia-wound No Skin Appearance) -Ulcer Cleansing Rinsed/ Irrigated with Saline -Foul Odor after Cleansing No -Anesthetic Used 5% Lidocaine Gel ALFREDO - Nurse 2 - General Ulcer CM Notes Start: 08/03/21 13:10 Freq: Status: Active Protocol: Activity Type Activity Date Activity User E-Sign Co-Sign Detail Recorded Client Recorded Date Recorded By Document 08/03/21 13:27 [id number] 08/03/21 13:29 08/03/21 13:27 Wound Center Nurse 2 -Time 13:27 -Correct Patient Yes -Correct Side, Site, Position Yes -Correct Procedure Yes -Procedure Performed Yes -Type of Procedure Debridement -Clinical Debridement Subcutaneous -Tissue Removed Subcutaneous -Post Debridement (cm) - Length 2.5 -Post Debridement (cm) - Width 0.6 -Post Debridement (cm) - Depth 0.3 -Total Square (Post) (cm) 1.50 -Area of Debridement (cm) - Length 2.5 -Area of Debridement (cm) - Width 0.6 -Total Square (Area) (cm) 1.50 -Tunneling No -Undermining/Tunneling No -Circular Undermining No -Wound/Ulcer Outcome Not Healed -Ulcer Cleansing Rinsed/ Irrigated with Saline -Foul Odor after Cleansing No -Bioengineered Tissue No -Bleeding Controlled with Pressure -Offloading Yes -Type of Offloading Surgical Shoe -Treatment Response Procedure Tolerated Well -Debridement - Subq, 1st 20sq cm No Pain Scale: 0-10 Numeric Is Patient Pain Free? Yes - Nurse 3 - General Ulcer D/C NN Start: 08/03/21 13:10 Freq: Status: Active Protocol: Activity Type Activity Date Activity User E-Sign Co-Sign Detail Recorded Client Recorded Date Recorded By Document 08/03/21 13:37 [facility] [id number] 08/03/21 13:37 [facility] 08/03/21 13:37 Wound Care Nurse 3 #1- L LATERAL FOOT -Ulcer Cleansing Rinsed/ Irrigated with Saline -Foul Odor after Cleansing No -Primary Dressing Applied Other -Other Dressing hydrogel -Primary Dressing Covered/Secured with Dry Gauze & Roll Gauze, Secured with Tape Treatment Response Procedure Tolerated Well Pain Scale: 0-10 Numeric Is Patient Pain Free? Yes WC - Visit Discharge Discharge Condition Stable Ambulatory Status Ambulatory Transportation Private Auto Accompanied by Assessment/Plan Assessment/Plan (1) Delayed wound healing: CODE(S): T14.8XXD - Other injury of unspecified body region, subsequent encounter (2) Ulcer of left foot with fat layer exposed: CODE(S): L97.522 - Non-pressure chronic ulcer of other part of left foot with fat layer exposed (3) Peripheral vascular occlusive disease: CODE(S): I73.9 - Peripheral vascular disease, unspecified (4) Diabetes mellitus with neuropathy: CODE(S): E11.40 - Type 2 diabetes mellitus with diabetic neuropathy, unspecified (5) Osteomyelitis: CODE(S): M86.9 - Osteomyelitis, unspecified PLAN: I reviewed and discussed his plan. Debridement was performed today as noted. He was advised to change his dressing daily with Santyl applied nickel thickness. To change his daily wash with antibacterial soap and water. To avoid soaking activities. His recent increased improvement is noted. He was previously diagnosed with osteomyelitis and underwent a fifth ray resection of the left foot at [facility] on 02-04-21. The diagnosis was confirmed with pathological acute osteomyelitis. The clearance fragment that was sent to pathology was negative for acute osteomyelitis. The clearance fragment that was sent to microbiology did not demonstrate some E. coli growth. He was discharged home from the hospital on oral Augmentin and Cipro; completed. No local signs of infection are noted at this time; to monitor. Previous labs were reviewed. Hemoglobin A1c on 02-05-21 was 7.5%. On 01-27-21 his ESR was 38 and C-reactive protein was 14.5. On 02-06-21 his white blood cell count was 13.4. Serial labs will be monitored. I recommend continued offloading surgical site areas with a surgical shoe. To try to keep mostly weight on the heel. I previously fabricated dual density offloading liners today to take additional pressure off of the ulcer site. I recommend nutritional supplementation optimize healing including Neri nutritional supplement pack daily. It is also noted that his A1c is still elevated which also does not have a good healing outcome. I advised him on continued improved diabetic control. If lack of healing persists, palliative wound care plan versus more proximal amputation will be considered. He will return to clinic in 3 weeks and is on a more palliative type plan. He has delayed healing however he is making progressive progress with each visit. Note: [employer] speech recognition statistical technician software was used to create portions of this document. Sound-alike and misspelled words, as well as other statistical technician errors may be contained in the documentation.
== END 2021-08-14 23:59 ==
LOC: WC 13:00
PROVIDERS: PCP Family Medicine; Referring Provider Family Medicine; Visit Provider Podiatrist
DX: E11.621 Type 2 diabetes mellitus with foot ulcer (principal); L97.522 Non-pressure chronic ulcer of other part of left foot with fat layer exposed; E11.40 Type 2 diabetes mellitus with diabetic neuropathy, unspecified; E11.51 Type 2 diabetes mellitus with diabetic peripheral angiopathy without gangrene
CPT/HCPCS: 11042

== ENCOUNTER → 2021-08-11 09:12 | Outpatient (CLI) | payer MEDICARE, SELFPAY ==
[2021-08-11 09:49] LABS: Absolute Lymphocyte Count 1.66 X10^3/uL (0.83-4.51); Basophil# 0.04 X10^3/uL; Basophil% 0.5 % (0-1); Eosinophil# 0.12 X10^3/uL; Eosinophils% 1.5 % (0-5); Hematocrit 37.4 % (40-54); Hemoglobin 12.6 g/dL (13.0-16.5); Lymphocyte # 1.66 X10^3/ul (0.83-4.51); Lymphocyte % 21.2 % (19-41); Mean Corp Hgb Conc 33.7 g/dL (32-36); Mean Corpuscular Hgb 29.7 pg (27.0-32.0); Mean Corpuscular Volume 88.2 fL (80-94); Monocyte# 0.95 X10^3/uL; Monocyte% 12.1 % (0-10); NRBC Flagged by Analyzer 0 % (0-5); Neutrophil # 5.02 X10^3/uL (2.7-7.7); Neutrophil % 64.3 % (47-70); Platelet Count 253 K/mm3 (150-450); RBC Distribution Width CV 13.5 % (11.6-14.6); Red Blood Count 4.24 M/mm3 (4.6-6.2); White Blood Count 7.8 K/mm3 (4.4-11.0)
[2021-08-11 10:35] LABS: Hemoglobin A1c 8.1 % (3.8-5.6)
[2021-08-11 10:40] LABS: ALB/GLOB Ratio 0.8 RATIO (0.9-2.4); AST(SGOT) 22 U/L (15-37); Alanine Aminotransfer ALT/SGPT 25 U/L (16-61); Albumin, Serum 3.2 g/dL (3.2-5.0); Alkaline Phosphatase 94 U/L (45-117); Anion Gap 8 (5-15); BUN 21 mg/dL (7-18); BUN/Creat Ratio 8.9 RATIO (10-20); Calcium,Total 8.8 mg/dL (8.5-10.1); Chloride 106 mmol/L (98-107); Cholesterol 126 mg/dL (200); Creatinine, Serum 2.36 mg/dL (0.70-1.30); EST Glomerular Filtration Rate 29 mL/min (>60); Est Glom Filt Rate - Afr Amer 35 mL/min (>60); Globulin 3.9 g/dL (2.2-4.2); Glucose 110 mg/dL (74-106); High Density Lipoprotein 34 mg/dL; Potassium 3.2 mmol/L (3.5-5.1); Protein, Total 7.1 g/dL (6.4-8.2); Sodium Level 140 mmol/L (136-145); Triglycerides 133 mg/dL; Very Low Density Lipoprotein 27 mg/dL (5-40)
[2021-08-11 12:22] LABS: Microalbumin,Random Urine 88.5 mg/L (NO RANGE EST.); Microalbumin:Creatinine Ratio 78.3 mg/g CRE (<30 mg/g CRE)
== END ==
PROVIDERS: PCP Family Medicine; Referring Provider Family Medicine; Visit Provider Family Medicine
DX: E11.40 Type 2 diabetes mellitus with diabetic neuropathy, unspecified (principal)
CPT/HCPCS: 36415; 80053; 80061; 82043; 82570; 83036; 85025

== ENCOUNTER → 2021-08-18 13:48 | Outpatient (CLI) | payer MEDICARE, SELFPAY ==
[2021-08-18 14:44] LABS: Absolute Lymphocyte Count 1.34 X10^3/uL (0.83-4.51); Absolute Neutrophil Count 5.6 X10^3/uL (2.0-7.7); Basophil# 0.05 X10^3/uL; Basophil% 0.6 % (0-1); Eosinophil# 0.16 X10^3/uL; Hematocrit 39.3 % (40-54); Hemoglobin 13.1 g/dL (13.0-16.5); Lymphocyte # 1.34 X10^3/ul (0.83-4.51); Lymphocyte % 16.9 % (19-41); Mean Corp Hgb Conc 33.3 g/dL (32-36); Mean Corpuscular Hgb 29.6 pg (27.0-32.0); Mean Corpuscular Volume 88.7 fL (80-94); Monocyte% 10.1 % (0-10); NRBC Flagged by Analyzer 0 % (0-5); Neutrophil # 5.56 X10^3/uL (2.7-7.7); Neutrophil % 70.1 % (47-70); Platelet Count 266 K/mm3 (150-450); RBC Distribution Width CV 13.2 % (11.6-14.6); RBC Distribution Width SD 43.6 fl (35.1-43.9); Red Blood Count 4.43 M/mm3 (4.6-6.2); White Blood Count 7.9 K/mm3 (4.4-11.0)
[2021-08-18 15:04] LABS: Anion Gap 7 (5-15); BUN 25 mg/dL (7-18); BUN/Creat Ratio 9.5 RATIO (10-20); Calcium,Total 8.7 mg/dL (8.5-10.1); Chloride 103 mmol/L (98-107); Creatinine, Serum 2.62 mg/dL (0.70-1.30); EST Glomerular Filtration Rate 25 mL/min (>60); Est Glom Filt Rate - Afr Amer 31 mL/min (>60); Glucose 277 mg/dL (74-106); Potassium 3.6 mmol/L (3.5-5.1); Sodium Level 138 mmol/L (136-145)
[2021-08-18 15:06] LABS: ALB/GLOB Ratio 0.8 RATIO (0.9-2.4); AST(SGOT) 21 U/L (15-37); Alanine Aminotransfer ALT/SGPT 28 U/L (16-61); Albumin, Serum 3.4 g/dL (3.2-5.0); Alkaline Phosphatase 111 U/L (45-117); Anion Gap 6 (5-15); BUN 26 mg/dL (7-18); BUN/Creat Ratio 10.1 RATIO (10-20); Calcium,Total 8.9 mg/dL (8.5-10.1); Chloride 103 mmol/L (98-107); Cholesterol 130 mg/dL (200); Creatinine, Serum 2.58 mg/dL (0.70-1.30); EST Glomerular Filtration Rate 26 mL/min (>60); Est Glom Filt Rate - Afr Amer 31 mL/min (>60); Globulin 4.3 g/dL (2.2-4.2); Glucose 281 mg/dL (74-106); High Density Lipoprotein 35 mg/dL; Potassium 3.6 mmol/L (3.5-5.1); Protein, Total 7.7 g/dL (6.4-8.2); Sodium Level 137 mmol/L (136-145); Triglycerides 178 mg/dL; Very Low Density Lipoprotein 36 mg/dL (5-40)
[2021-08-18 15:09] LABS: Hemoglobin A1c 8.3 % (3.8-5.6)
== END ==
PROVIDERS: PCP Nurse Practitioner Family; Referring Provider Nurse Practitioner Gerontology; Visit Provider Nurse Practitioner Gerontology
DX: E87.6 Hypokalemia (principal); E11.40 Type 2 diabetes mellitus with diabetic neuropathy, unspecified
CPT/HCPCS: 36415; 80048; 80053; 80061; 83036; 85025

== ENCOUNTER 2021-09-07 14:45 | Outpatient (RCR) | payer MEDICARE, SELFPAY ==
[2021-08-15 00:19] VITALS: BP 101/60; PULSE 66; RESP 18; TEMP 36.4; BMI 23.6
[2021-08-24 13:01] VITALS: BP 138/90; PULSE 78; RESP 18; TEMP 36.1; BMI 23.6
--- NOTE | 2021-08-24 14:00 | RAD_ITS ---
EXAM: XR LEFT FOOT COMPLETE, 3 OR MORE VIEWS CLINICAL INDICATION: ULCER TECHNIQUE: Frontal, lateral and oblique views of the left foot. This report was created using iFormul[employer] report generation technology. COMPARISON: 02.04.21 FINDINGS: BONES/JOINTS: Stable transmetatarsal amputation of the fifth digit. There is a calcaneal spur. There is an enthesophyte involving the posterior superior calcaneus at the site of insertion of the Achilles tendon. There are atherosclerotic vascular calcifications. No acute fracture. No subluxation. Normal alignment. Preservation of the joint space. SOFT TISSUES: There is non-specific soft tissue swelling of the foot with an ulcer around the region of the 4th digit. No radiopaque foreign body. RAD/Foot min 3 Views IMPRESSION: 1. Stable transmetatarsal amputation of the fifth digit. 2. There is non-specific soft tissue swelling of the foot with an ulcer around the region of the 4th digit. Electronically Signed: Hema Waddell MD at 18:14 EST , Service support ,
[2021-08-24 14:29] LABS: Absolute Lymphocyte Count 1.71 X10^3/uL (0.83-4.51); Absolute Neutrophil Count 5.9 X10^3/uL (2.0-7.7); Basophil# 0.05 X10^3/uL; Basophil% 0.6 % (0-1); Eosinophil# 0.27 X10^3/uL; Hematocrit 38.6 % (40-54); Lymphocyte # 1.71 X10^3/ul (0.83-4.51); Lymphocyte % 19.3 % (19-41); Mean Corp Hgb Conc 33.7 g/dL (32-36); Mean Corpuscular Hgb 29.7 pg (27.0-32.0); Mean Corpuscular Volume 88.1 fL (80-94); Mean Platelet Vol. 11.3 fl (6.2-12.0); Monocyte% 10.1 % (0-10); NRBC Flagged by Analyzer 0 % (0-5); Neutrophil % 66.5 % (47-70); Platelet Count 278 K/mm3 (150-450); RBC Distribution Width CV 13.2 % (11.6-14.6); RBC Distribution Width SD 43.3 fl (35.1-43.9); Red Blood Count 4.38 M/mm3 (4.6-6.2); White Blood Count 8.9 K/mm3 (4.4-11.0)
[2021-08-24 14:30] LABS: Erythrocyte Sedimentation Rate 11 mm/hr (0-20)
[2021-08-24 14:46] LABS: ALB/GLOB Ratio 0.8 RATIO (0.9-2.4); AST(SGOT) 24 U/L (15-37); Alanine Aminotransfer ALT/SGPT 24 U/L (16-61); Albumin, Serum 3.4 g/dL (3.2-5.0); Alkaline Phosphatase 107 U/L (45-117); Anion Gap 9 (5-15); BUN 25 mg/dL (7-18); CRP 4.63 mg/L (0.0-3.0); Calcium,Total 9.2 mg/dL (8.5-10.1); Chloride 106 mmol/L (98-107); Creatinine, Serum 2.49 mg/dL (0.70-1.30); EST Glomerular Filtration Rate 27 mL/min (>60); Est Glom Filt Rate - Afr Amer 33 mL/min (>60); Estimated Creatinine Clearance 19.99 ml/min; Globulin 4.1 g/dL (2.2-4.2); Glucose 218 mg/dL (74-106); Potassium 3.9 mmol/L (3.5-5.1); Protein, Total 7.5 g/dL (6.4-8.2); Sodium Level 137 mmol/L (136-145)
[2021-08-24 14:49] LABS: M R Staph aureus DNA By PCR Negative (Negative); Probe Check PASS; Specimen Processing Control PASS; Staph aureus DNA By PCR NEGATIVE (Negative)
--- NOTE | 2021-08-24 16:06 | PCM.WC.PN ---
History of Present Illness Date of Service: 08/24/21 Chief Complaint: Left foot ulcer History of Wound: This 75-year-old male was seen for left foot ulcer return to the wound healing center today. He had recent lower extremity vascular successful intervention performed with Dr. Bowens. It is noted he has a low ejection fraction and also small vessel disease is suspected. He had a fifth ray resection of the left foot at [facility] on 02/04/2021 for treatment of nonhealing ulcer and osteomyelitis. He has been changing the dressing as advised with darlin. He is with his today. He denies pain today. He presents wearing a regular shoe today. He has been applying lotion to his dry skin and now reports significant redness of the top of his foot and leg. He saw his primary care physician who diagnosed him with cellulitis and started him on antibiotic. He is on Keflex and Bactrim. He is with his . Progress of Wound: Improving wound New cellulitis noted Objective Data Objective Data Vital Signs: Vital Signs Temp Pulse Resp BP 97 F L 78 18 138/90 H 08/24/21 13:01 08/24/21 13:01 08/24/21 13:01 08/24/21 13:01 Weight: 60.781 kg Body Mass Index (BMI) 23.6 Lab / Micro Data Result Diagrams: 08/24/21 13:42 08/24/21 13:42 Labs: Laboratory Results - last 24 hr 08/24/21 13:42: Sodium 137, Potassium 3.9, Chloride 106, Carbon Dioxide 22.0, Anion Gap 9, BUN 25 H, Creatinine 2.49 H, Estim Creat Clear Calc 19.99, Est GFR (MDRD) Af Amer 33 L, Est GFR (MDRD) Non-Af 27 L, BUN/Creatinine Ratio 10.0, Glucose 218 H, Calcium 9.2, Total Bilirubin 0.70, AST 24, ALT 24, Alkaline Phosphatase 107, C-React Prot Ext Range 4.63 H, Total Protein 7.5, Albumin 3.4, Globulin 4.1, Albumin/Globulin Ratio 0.8 L 08/24/21 13:42: WBC 8.9, RBC 4.38 L, Hgb 13.0, Hct 38.6 L, MCV 88.1, MCH 29.7, MCHC 33.7, RDW Std Deviation 43.3, RDW Coeff of Milad 13.2, Plt Count 278, MPV 11.3, Immature Gran % (Auto) 0.500, Neut % (Auto) 66.5, Lymph % (Auto) 19.3, [place] % (Auto) 10.1 H, Eos % (Auto) 3.0, Baso % (Auto) 0.6, Absolute Neuts (auto) 5.9, Absolute Lymphs (auto) 1.71, Nucleated RBC % 0, ESR 11 08/24/21 : S.aureus Protein A PCR NEGATIVE, MRSA (PCR) Negative Physical Exam Extremity Extremity Narrative: No calf tenderness Diminished pulses Muscle wasting noted Skin Skin Narrative: no purulence, no streaking, no odor, no infection. atrophic and hairless skin. resolved eschar and decreased fibrous ulcer base with some granulation tissue noted. no exposed bone. peripheral thin epithelialization noted and continued. Reduced ulcer size noted. dorsal kasia ulcer inflammation with dry skin and erythema and some petechiae to the dorsal foot and also the anterior left leg. No adjacent bogginess or fluctuance or william necrosis Neuro Neuro Narrative: lack of normal epicritic sensation via light touch is consistent with neuropathy status Debridement Note Debridement Note Wound debrided: left foot Wound Grade/Stage: 3 Type of Debridement: Excisional debridement Anesthesia Used: 4% Lidocaine Solution Depth: in the subcutaneous layer Percentage of wound debrided: 100 Instrument Used: #15 blade Tissue Removed: fibrous, devitalized subcutaneous, biofilm, slough Severity: Fat Layer Exposed Amount of bleeding with debridement: Mild Bleeding Controlled with: Pressure Patient tolerated procedure: Patient tolerated procedure well Post-Debridement Measurements and Additional Note: Post-Debridement Measurements/Treatment [facility] Nurse 1 - General Ulcer Assessment Start: 08/24/21 13:01 Freq: Status: Active Protocol: ALFREDO.LOWEXT Activity Type Activity Date Activity User E-Sign Co-Sign Detail Recorded Client Recorded Date Recorded By Document 08/24/21 13:01 Desktop 08/24/21 13:04 08/24/21 13:01 - Today's Visit Information Type of service Follow-up Visit (Physician/ACID TREATER ) Arrival Mode Ambulatory Transfer Assistance None Patient Identification Verified (Name & Yes ) Patient Requires Transmission-Based No Precautions Height and Weight Body Mass Index (BMI) 23.6 BMI Classification Normal Vital Signs Temperature (97.8 F-99.1 F) 97 F L Temperature Source Temporal Pulse Rate (60-100) 78 Pulse Location Monitor Respiratory Rate (12-18) 18 Respiratory rate source Observation Blood Pressure (90/60-120/80) 138/90 H Blood Pressure Mean (mm Hg) 106 Source Monitor Position Sitting Blood Pressure Location Left Arm History Since Last Visit- (Skip if this is Patient's initial visit) Have you changed medications since your No last visit? Any new allergies or adverse reactions No Had a fall/change in ADL's that may No increase risk of falls Signs or symptoms of abuse and/or No neglect since last visit Have you been in the hospital since your No last visit? Has dressing in place as prescribed Yes Has compression in place as prescribed No Has offloadiing in place as prescribed No Experienced any changes in pain level or No management Pain Scale: 0-10 Numeric Is Patient Pain Free? Yes - Nurse 1 - General Ulcer Measurement Start: 08/24/21 13:01 Freq: Status: Active Protocol: Activity Type Activity Date Activity User E-Sign Co-Sign Detail Recorded Client Recorded Date Recorded By Document 08/24/21 13:01 Desktop 08/24/21 13:04 08/24/21 13:01 Wound Center Nurse 1 #1- L LATERAL FOOT -Combined with other wound No -Current Size (cm) - Length 2.6 -Current Size (cm) - Width 0.7 -Current Size (cm) - Depth 0.4 -Total Square Cm 1.82 -Tunneling No -Undermining/Tunneling No -Circular Undermining No -Exudate Amt Large -Exudate Type Serosanguineous -Wound Margin Thickened & Rolled Under -Granulation Amt Large (67-100%) -Granulation Quality [place] -Slough/Fibrin Yes -Necrosis Amt Medium (34-66%) -Necrotic Tissue Type Adherent Slough -Structure Exposed N/A -Texture (Kasia-wound Skin Appearance) Excoriation -Moisture (Kasia-wound Skin Appearance) Assessed -Color (Kasia-wound Skin Appearance) Erythema -Temperature (Kasia-wound Skin No Abnormality Appearance) (Pt Warm) -Tenderness on Palpation (Kasia-wound No Skin Appearance) -Ulcer Cleansing Wound Cleanser -Foul Odor after Cleansing No -Anesthetic Used 4% Lidocaine Solution ALFREDO - Nurse 2 - General Ulcer CM Notes Start: 08/24/21 13:01 Freq: Status: Active Protocol: Activity Type Activity Date Activity User E-Sign Co-Sign Detail Recorded Client Recorded Date Recorded By Document 08/24/21 13:14 JF [id number] 08/24/21 13:21 MICHA 08/24/21 13:14 Wound Center Nurse 2 -Time 13:18 -Correct Patient Yes -Correct Side, Site, Position Yes -Correct Procedure Yes -Procedure Performed Yes -Type of Procedure Debridement -Clinical Debridement Subcutaneous -Tissue Removed Subcutaneous -Post Debridement (cm) - Length 2.6 -Post Debridement (cm) - Width 0.8 -Post Debridement (cm) - Depth 0.4 -Total Square (Post) (cm) 2.08 -Area of Debridement (cm) - Length 2.6 -Area of Debridement (cm) - Width 0.8 -Total Square (Area) (cm) 2.08 -Undermining/Tunneling No -Circular Undermining No -Wound/Ulcer Outcome Not Healed -Ulcer Cleansing Rinsed/ Irrigated with Saline -Foul Odor after Cleansing No -Bioengineered Tissue No -Bleeding Controlled with Pressure -Offloading Yes -Type of Offloading Surgical Shoe -Treatment Response Procedure Tolerated Well -Debridement - Subq, 1st 20sq cm Yes Pain Scale: 0-10 Numeric Is Patient Pain Free? Yes - Nurse 3 - General Ulcer D/C NN Start: 08/24/21 13:01 Freq: Status: Active Protocol: Activity Type Activity Date Activity User E-Sign Co-Sign Detail Recorded Client Recorded Date Recorded By Document 08/24/21 13:26 [facility] Desktop 08/24/21 13:26 [facility] 08/24/21 13:26 Wound Care Nurse 3 #1- L LATERAL FOOT -Ulcer Cleansing Rinsed/ Irrigated with Saline -Primary Dressing Applied Other -Other Dressing santyl -Primary Dressing Covered/Secured with Dry Gauze & Roll Gauze, Secured with Tape Treatment Response Procedure Tolerated Well - Visit Discharge Discharge Condition Stable Ambulatory Status Ambulatory Transportation Private Auto Accompanied by Assessment/Plan Assessment/Plan (1) Delayed wound healing: CODE(S): T14.8XXD - Other injury of unspecified body region, subsequent encounter (2) Ulcer of left foot with fat layer exposed: CODE(S): L97.522 - Non-pressure chronic ulcer of other part of left foot with fat layer exposed (3) Peripheral vascular occlusive disease: CODE(S): I73.9 - Peripheral vascular disease, unspecified (4) Diabetes mellitus with neuropathy: CODE(S): E11.40 - Type 2 diabetes mellitus with diabetic neuropathy, unspecified (5) Osteomyelitis: CODE(S): M86.9 - Osteomyelitis, unspecified (6) Non-pressure chronic ulcer of other part of left foot with fat layer exposed: CODE(S): L97.522 - Non-pressure chronic ulcer of other part of left foot with fat layer exposed (7) Cellulitis of left lower limb: CODE(S): L03.116 - Cellulitis of left lower limb PLAN: I reviewed and discussed his plan. Debridement was performed today as noted. He was advised to change his dressing daily with Santyl applied nickel thickness. To change his daily wash with antibacterial soap and water. To avoid soaking activities. His recent increased improvement is noted. He was previously diagnosed with osteomyelitis and underwent a fifth ray resection of the left foot at [facility] on 02-04-21. The diagnosis was confirmed with pathological acute osteomyelitis. The clearance fragment that was sent to pathology was negative for acute osteomyelitis. The clearance fragment that was sent to microbiology did not demonstrate some E. coli growth. He was discharged home from the hospital on oral Augmentin and Cipro; completed. No local signs of infection are noted at this time; to monitor. Previous labs were reviewed. Hemoglobin A1c on 02-05-21 was 7.5%. On 01-27-21 his ESR was 38 and C-reactive protein was 14.5. On 02-06-21 his white blood cell count was 13.4. His new clinical presentation of cellulitis is noted. He is on cephalexin and Bactrim under the management of his primary care physician. After debridement and irrigation, an updated wound culture was obtained with aerobic, anaerobic, acid-fast, fungal. I recommend updated foot x-ray and labs (CBC, CMP, ESR, C-reactive protein. 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 Xrays show fifth ray resection without soft tissue emphysema, osseous destruction , foreign body. Cultures with corynebacterium jeikeium, gram-positive stevo, gram-positive cocci, MRSA negative serology. I recommend updating his antibiotics for better bacterial coverage and also with renal dosing incorporated. I will call him with the results and recommendations. I recommend continued offloading chronic wound site areas with a surgical shoe. To try to keep mostly weight on the heel. I previously fabricated dual density offloading liners today to take additional pressure off of the ulcer site. I recommend nutritional supplementation optimize healing including Neri nutritional supplement pack daily. It is also noted that his A1c is still elevated which also does not have a good healing outcome. I advised him on continued improved diabetic control. If lack of healing persists, palliative wound care plan versus more proximal amputation will be considered. He will return to clinic in 3 weeks and is on a more palliative type plan. He has delayed healing however he is making progressive progress with each visit. Note: [employer] speech recognition applications packager software was used to create portions of this document. Sound-alike and misspelled words, as well as other applications packager errors may be contained in the documentation. The medical decision making level is moderate. There is noted moderate risk of morbidity after considering this treatment plan and diagnostic data. Considerations were given to prescription management, decisions regarding surgical options, or social determinants of health. The problems addressed require a moderate decision making level which includes one or more chronic illnesses (w/ exacerbation, progression, or side effects), two or more stable chronic illnesses, one undiagnosed new problem w/ uncertain prognosis, one acute illness with systemic symptoms, or one acute complicated injury.
[2021-08-31 13:10] VITALS: BP 138/52; PULSE 76; TEMP 36.8; BMI 23.6
--- NOTE | 2021-08-31 14:15 | PCM.PN.ID ---
Physical Exam Narrative Developed L foot redness and BLE rash prior to starting bactrim/keflex by PCP. Now on omnicef, feeling better. No fever, no n/v/d. Has had covid shot. Const alert and no apparent distress General Appearance: cooperative Resp normal air movement and clear to auscultation bilaterally Cardio regular rate and regular rhythm GI normal to inspection, nondistended, normoactive bowel sounds Skin Skin Narrative: L foot dorsal redness and scaling, small wounds on lateral foot. Scattered erythema on lower legs. ID ID: Route of nutrition/ use of supplements: [] Nutritional Intake: [] IV Site: [] Stovall Catheter: [] Assessment & Plan Assessment/Plan (1) Cellulitis of left lower limb: PLAN: Polymicrobial growth 08/24 on wound cx. On cefdinir, improving. Will add flagyl for one week course. Will follow as needed, d/w Dr. Mandujano
--- NOTE | 2021-08-31 15:34 | PCM.WC.PN ---
History of Present Illness Date of Service: 08/31/21 Chief Complaint: Left foot ulcer History of Wound: This 75-year-old male was seen for left foot ulcer return to the wound healing center today. He had recent lower extremity vascular successful intervention performed with Dr. Bowens. It is noted he has a low ejection fraction and also small vessel disease is suspected. He had a fifth ray resection of the left foot at [facility] on 02/04/2021 for treatment of nonhealing ulcer and osteomyelitis. He has been changing the dressing as advised with darlin. He is with his today. He denies pain today. He saw his primary care physician who diagnosed him with cellulitis and started him on antibiotic. He is on Keflex and Bactrim. He had progressive redness extending up the front of the leg which now seems to be less intense. He also reports that he has a rash-like presentation on his arm and both thighs. He was advised to change his antibiotic to cefdinir over the weekend. He is scheduled to see infectious disease specialist, Dr. Balderas today also. Progress of Wound: Improving wound cellulitis noted Objective Data Objective Data Vital Signs: Vital Signs Temp Pulse Resp BP 98.3 F 76 18 138/52 H 08/31/21 13:10 08/31/21 13:10 08/24/21 13:01 08/31/21 13:10 Weight: 60.781 kg Body Mass Index (BMI) 23.6 Lab / Micro Data Result Diagrams: 08/24/21 13:42 08/24/21 13:42 Micro: Microbiology 08/24/21 Unknown Wound Abcess - Left Foot Gram Stain - Final 08/24/21 Unknown Wound Abcess - Left Foot Wound Culture - Preliminary Eggerthia catenaformis Propionibacterium propionicum Kocuria kristinae Alpha Hemolytic Streptococcus Actinotignum schaalii 08/24/21 Unknown Wound Abcess - Left Foot Anaerobic Culture - Final No anaerobic bacteria isolated. Physical Exam Extremity Extremity Narrative: No calf tenderness Diminished pulses Muscle wasting noted Skin Skin Narrative: no purulence, no streaking, no odor. atrophic and hairless skin. fibrous ulcer base with some granulation tissue noted. no exposed bone. peripheral thin epithelialization noted and continued. Reduced ulcer size noted. dorsal kasia ulcer inflammation with dry skin and erythema (less intense) and some petechiae to the dorsal foot and also the anterior left leg also now noted on anterior right leg and bilateral thighs and right arm. No adjacent bogginess or fluctuance or william necrosis Neuro Neuro Narrative: lack of normal epicritic sensation via light touch is consistent with neuropathy status Debridement Note Debridement Note Wound debrided: Left foot Wound Grade/Stage: 3 Type of Debridement: Excisional debridement Anesthesia Used: 4% Lidocaine Solution Depth: in the subcutaneous layer Percentage of wound debrided: 100 Instrument Used: #15 blade Tissue Removed: fibrous, devitalized subcutaneous, biofilm, slough Severity: Fat Layer Exposed Amount of bleeding with debridement: Mild Bleeding Controlled with: Pressure Patient tolerated procedure: Patient tolerated procedure well Post-Debridement Measurements and Additional Note: Post-Debridement Measurements/Treatment - Nurse 1 - General Ulcer Assessment Start: 08/24/21 13:01 Freq: Status: Active Protocol: JV Activity Type Activity Date Activity User E-Sign Co-Sign Detail Recorded Client Recorded Date Recorded By Document 08/24/21 13:01 RB Desktop 08/24/21 13:04 RB Document 08/31/21 13:10 DL [id number] 08/31/21 13:15 DL 08/24/21 08/31/21 13:01 13:10 - Today's Visit Information Type of service Follow-up Visit Follow-up Visit (Physician/ICE 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 (Physician/ICE CREAM 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 ) ) Arrival Mode Ambulatory Ambulatory Transfer Assistance None None Patient Identification Verified (Name & Yes Yes ) Patient Requires Transmission-Based No No Precautions Finger Stick Blood Sugar(mg/dl) (if 127 indicated): Blood Sugar Stated by Patient Height and Weight Body Mass Index (BMI) 23.6 23.6 BMI Classification Normal Normal Vital Signs Temperature (97.8 F-99.1 F) 97 F L 98.3 F Temperature Source Temporal Temporal Pulse Rate (60-100) 78 76 Pulse Location Monitor Monitor Respiratory Rate (12-18) 18 Respiratory rate source Observation Blood Pressure (90/60-120/80) 138/90 H 138/52 H Blood Pressure Mean (mm Hg) 106 80 Source Monitor Monitor Position Sitting Blood Pressure Location Left Arm History Since Last Visit- (Skip if this is Patient's initial visit) Have you changed medications since your No No last visit? Any new allergies or adverse reactions No No Had a fall/change in ADL's that may No No increase risk of falls Signs or symptoms of abuse and/or No No neglect since last visit Have you been in the hospital since your No No last visit? Has dressing in place as prescribed Yes Yes Has compression in place as prescribed No N/A Has offloadiing in place as prescribed No Yes Experienced any changes in pain level or No No management Left Footwear Removable Cast Walker/Walking Boot Pain Scale: 0-10 Numeric Is Patient Pain Free? Yes Yes ALFREDO - Nurse 1 - General Ulcer Measurement Start: 08/24/21 13:01 Freq: Status: Active Protocol: Activity Type Activity Date Activity User E-Sign Co-Sign Detail Recorded Client Recorded Date Recorded By Document 08/24/21 13:01 RB Desktop 08/24/21 13:04 RB Document 08/31/21 13:10 DL [id number] 08/31/21 13:15 DL 08/24/21 08/31/21 13:01 13:10 Wound Center Nurse 1 #1- L LATERAL FOOT -Combined with other wound No -Current Size (cm) - Length 2.6 2.3 -Current Size (cm) - Width 0.7 0.3 -Current Size (cm) - Depth 0.4 0.3 -Total Square Cm 1.82 0.69 -Photo Taken No -Tunneling No -Undermining/Tunneling No -Circular Undermining No -Exudate Amt Large Small -Exudate Type Serosanguineous Yellow/Green -Wound Margin Thickened & Thickened & Rolled Under Rolled Under -Granulation Amt Large (67-100%) None Present (0 %) -Granulation Quality [place] -Slough/Fibrin Yes -Necrosis Amt Medium (34-66%) Large (67-100%) -Necrotic Tissue Type Adherent Slough Adherent Slough -Structure Exposed N/A N/A -Texture (Kasia-wound Skin Appearance) Excoriation Scarring,Rash -Moisture (Kasia-wound Skin Appearance) Assessed Dry/Scaly -Color (Kasia-wound Skin Appearance) Erythema Rubor -Temperature (Kasia-wound Skin No Abnormality No Abnormality Appearance) (Pt Warm) (Pt Warm) -Tenderness on Palpation (Kasia-wound No No Skin Appearance) -Ulcer Cleansing Wound Cleanser Soap and Water -Foul Odor after Cleansing No No -Anesthetic Used 4% Lidocaine 5% Lidocaine Solution Gel ALFREDO - Nurse 2 - General Ulcer CM Notes Start: 08/24/21 13:01 Freq: Status: Active Protocol: Activity Type Activity Date Activity User E-Sign Co-Sign Detail Recorded Client Recorded Date Recorded By Document 08/24/21 13:14 [id number] 08/24/21 13:21 JF Document 08/31/21 13:39 [id number] 08/31/21 13:41 08/24/21 08/31/21 13:14 13:39 Wound Center Nurse 2 #1- L LATERAL FOOT -Time 13:18 13:39 -Correct Patient Yes Yes -Correct Side, Site, Position Yes Yes -Correct Procedure Yes Yes -Procedure Performed Yes Yes -Type of Procedure Debridement Debridement -Clinical Debridement Subcutaneous Subcutaneous -Tissue Removed Subcutaneous Subcutaneous -Post Debridement (cm) - Length 2.6 2.6 -Post Debridement (cm) - Width 0.8 0.4 -Post Debridement (cm) - Depth 0.4 0.3 -Total Square (Post) (cm) 2.08 1.04 -Area of Debridement (cm) - Length 2.6 2.6 -Area of Debridement (cm) - Width 0.8 0.4 -Total Square (Area) (cm) 2.08 1.04 -Tunneling No -Undermining/Tunneling No No -Circular Undermining No No -Wound/Ulcer Outcome Not Healed Not Healed -Ulcer Cleansing Rinsed/ Rinsed/ Irrigated with Irrigated with Saline Saline -Foul Odor after Cleansing No No -Bioengineered Tissue No No -Bleeding Controlled with Pressure Pressure -Offloading Yes Yes -Type of Offloading Surgical Shoe Surgical Shoe -Treatment Response Procedure Procedure Tolerated Well Tolerated Well -Debridement - Subq, 1st 20sq cm Yes Yes Pain Scale: 0-10 Numeric Is Patient Pain Free? Yes Yes WC - Nurse 3 - General Ulcer D/C NN Start: 08/24/21 13:01 Freq: Status: Active Protocol: Activity Type Activity Date Activity User E-Sign Co-Sign Detail Recorded Client Recorded Date Recorded By Document 08/24/21 13:26 [facility] Desktop 08/24/21 13:26 [facility] 08/24/21 13:26 Wound Care Nurse 3 #1- L LATERAL FOOT -Ulcer Cleansing Rinsed/ Irrigated with Saline -Primary Dressing Applied Other -Other Dressing santyl -Primary Dressing Covered/Secured with Dry Gauze & Roll Gauze, Secured with Tape Treatment Response Procedure Tolerated Well WC - Visit Discharge Discharge Condition Stable Ambulatory Status Ambulatory Transportation Private Auto Accompanied by Assessment/Plan Assessment/Plan (1) Delayed wound healing: CODE(S): T14.8XXD - Other injury of unspecified body region, subsequent encounter (2) Ulcer of left foot with fat layer exposed: CODE(S): L97.522 - Non-pressure chronic ulcer of other part of left foot with fat layer exposed (3) Peripheral vascular occlusive disease: CODE(S): I73.9 - Peripheral vascular disease, unspecified (4) Diabetes mellitus with neuropathy: CODE(S): E11.40 - Type 2 diabetes mellitus with diabetic neuropathy, unspecified (5) Osteomyelitis: CODE(S): M86.9 - Osteomyelitis, unspecified (6) Non-pressure chronic ulcer of other part of left foot with fat layer exposed: CODE(S): L97.522 - Non-pressure chronic ulcer of other part of left foot with fat layer exposed (7) Cellulitis of left lower limb: CODE(S): L03.116 - Cellulitis of left lower limb PLAN: I reviewed and discussed his plan. Debridement was performed today as noted. He was advised to change his dressing daily with Santyl applied nickel thickness. To change his daily wash with antibacterial soap and water. To avoid soaking activities. His recent increased improvement is noted. He was previously diagnosed with osteomyelitis and underwent a fifth ray resection of the left foot at [facility] on 02-04-21. The diagnosis was confirmed with pathological acute osteomyelitis. The clearance fragment that was sent to pathology was negative for acute osteomyelitis. The clearance fragment that was sent to microbiology did not demonstrate some E. coli growth. He was discharged home from the hospital on oral Augmentin and Cipro; completed. This issue was resolved and addressed. Previous labs were reviewed. Hemoglobin A1c on 02-05-21 was 7.5%. On 01-27-21 his ESR was 38 and C-reactive protein was 14.5. On 02-06-21 his white blood cell count was 13.4. His current cellulitis work-up information is as follows: He was switched from cephalexin and Bactrim under the management of his primary care physician to cefadroxil. Labs reviewed as WBC 8.9, esr 111, cr 2.49, GFR 27, a1c 8.3%(on 08/18/21). Xrays show fifth ray resection without soft tissue emphysema, osseous destruction , foreign body. I recommend updating his antibiotics for better bacterial coverage and also with renal dosing incorporated. Was seen by infectious disease specialist today who recommended additional Flagyl. His multi organism growth. I recommend continued offloading chronic wound site areas with a surgical shoe. To try to keep mostly weight on the heel. I previously fabricated dual density offloading liners today to take additional pressure off of the ulcer site. I recommend nutritional supplementation optimize healing including Neri nutritional supplement pack daily. It is also noted that his A1c is still elevated which also does not have a good healing outcome. I advised him on continued improved diabetic control. If lack of healing persists, palliative wound care plan versus more proximal amputation will be considered. He will return to clinic in 1 week. He has delayed healing however he is making progressive progress with each visit. Note: [employer] speech recognition bowling alley floors installer software was used to create portions of this document. Sound-alike and misspelled words, as well as other bowling alley floors installer errors may be contained in the documentation. The medical decision making level is limited based on data including the review of prior external notes, review of a prior test, or ordering a test. The medical decision making level is low to moderate. There is noted low risk of morbidity after considering this treatment plan and diagnostic data.
[2021-09-07 14:36] VITALS: BP 137/57; PULSE 74; RESP 16; TEMP 36.8; BMI 23.6
--- NOTE | 2021-09-07 16:46 | PN.PCM_ITS ---
History of Present Illness Date of Service: 09/07/21 Chief Complaint: Left foot ulcer History of Wound: This 75-year-old male was seen for left foot ulcer return to the wound healing center today. He had recent lower extremity vascular successful intervention performed with Dr. Bowens. It is noted he has a low ejection fraction and also small vessel disease is suspected. He had a fifth ray resection of the left foot at [facility] on 02/04/2021 for treatment of nonhealing ulcer and osteomyelitis. He has been changing the dressing as advised with darlin. He is with his today. He denies pain today. He has almost completed his course of to cefdinir and Flagyl without side effects or diarrhea. His redness on his legs have resolved Progress of Wound: Improving Objective Data Objective Data Vital Signs: Vital Signs Temp Pulse Resp BP 98.3 F 74 16 137/57 H 09/07/21 14:36 09/07/21 14:36 09/07/21 14:36 09/07/21 14:36 Weight: 60.781 kg Body Mass Index (BMI) 23.6 Lab / Micro Data Result Diagrams: 08/24/21 13:42 08/24/21 13:42 Micro: Microbiology 08/24/21 Unknown Wound Abcess - Left Foot Gram Stain - Final 08/24/21 Unknown Wound Abcess - Left Foot Wound Culture - Final Eggerthia catenaformis Propionibacterium propionicum Kocuria kristinae Aerococcus urinae Actinotignum schaalii 08/24/21 Unknown Wound Abcess - Left Foot Anaerobic Culture - Final No anaerobic bacteria isolated. Physical Exam Extremity Extremity Narrative: No calf tenderness Diminished pulses Muscle wasting noted Skin Skin Narrative: no purulence, no streaking, no odor. atrophic and hairless skin. fibrous ulcer base with some granulation tissue noted. no exposed bone. peripheral thin epithelialization noted and continued. Reduced ulcer size noted. dorsal kasia ulcer inflammation with dry skin and erythema (less intense) and resolved petechiae to the dorsal foot and also the anterior left leg also now noted on anterior right leg and bilateral thighs and right arm. No adjacent bogginess or fluctuance or william necrosis Neuro Neuro Narrative: lack of normal epicritic sensation via light touch is consistent with neuropathy status Debridement Note Debridement Note Wound debrided: left foot Wound Grade/Stage: Type of Debridement: Excisional debridement Anesthesia Used: 4% Lidocaine Solution Depth: in the subcutaneous layer Percentage of wound debrided: 100 Instrument Used: #15 blade Tissue Removed: fibrous, devitalized subcutaneous, biofilm, slough Severity: Fat Layer Exposed Amount of bleeding with debridement: Mild Bleeding Controlled with: Pressure Patient tolerated procedure: Patient tolerated procedure well Post-Debridement Measurements and Additional Note: Post-Debridement Measurements/Treatment WC - Nurse 1 - General Ulcer Assessment Start: 08/24/21 13:01 Freq: Status: Active Protocol: JV Activity Type Activity Date Activity User E-Sign Co-Sign Detail Recorded Client Recorded Date Recorded By Document 08/24/21 13:01 RB Desktop 08/24/21 13:04 RB Document 08/31/21 13:10 DL [id number] 08/31/21 13:15 DL Document 09/07/21 14:36 ML [id number] 09/07/21 14:39 ML 08/24/21 08/31/21 09/07/21 13:01 13:10 14:36 - Today's Visit Information Type of service Follow-up Visit Follow-up Visit Follow-up Visit (Physician/[employer] (Physician/[employer] (Physician/[employer] ) ) ) Arrival Mode Ambulatory Ambulatory Ambulatory Transfer Assistance None None Patient Identification Verified (Name & Yes Yes Yes ) Patient Requires Transmission-Based No No No Precautions Safety Precautions NA Finger Stick Blood Sugar(mg/dl) (if 127 indicated): Blood Sugar Stated by Patient Height and Weight Body Mass Index (BMI) 23.6 23.6 23.6 BMI Classification Normal Normal Normal Vital Signs Temperature (97.8 F-99.1 F) 97 F L 98.3 F 98.3 F Temperature Source Temporal Temporal Temporal Pulse Rate (60-100) 78 76 74 Pulse Location Monitor Monitor Monitor Respiratory Rate (12-18) 18 16 Respiratory rate source Observation Observation Blood Pressure (90/60-120/80) 138/90 H 138/52 H 137/57 H Blood Pressure Mean (mm Hg) 106 80 83 Source Monitor Monitor Monitor Position Sitting Sitting Blood Pressure Location Left Arm Left Arm History Since Last Visit- (Skip if this is Patient's initial visit) Have you changed medications since your No No No last visit? Any new allergies or adverse reactions No No No Had a fall/change in ADL's that may No No No increase risk of falls Signs or symptoms of abuse and/or No No No neglect since last visit Have you been in the hospital since your No No No last visit? Has dressing in place as prescribed Yes Yes Yes Has compression in place as prescribed No N/A N/A Has offloadiing in place as prescribed No Yes N/A Experienced any changes in pain level or No No No management Left Footwear Removable Cast Surgical Shoe Walker/Walking with pressure Boot relief insole Right Footwear Surgical Shoe with pressure relief insole Pain Scale: 0-10 Numeric Is Patient Pain Free? Yes Yes Yes WC - Nurse 1 - General Ulcer Measurement Start: 08/24/21 13:01 Freq: Status: Active Protocol: Activity Type Activity Date Activity User E-Sign Co-Sign Detail Recorded Client Recorded Date Recorded By Document 08/24/21 13:01 RB Desktop 08/24/21 13:04 RB Document 08/31/21 13:10 DL [id number] 08/31/21 13:15 DL Document 09/07/21 14:36 ML [id number] 09/07/21 14:39 ML 08/24/21 08/31/21 09/07/21 13:01 13:10 14:36 Wound Center Nurse 1 #1- L LATERAL FOOT -Combined with other wound No -Current Size (cm) - Length 2.6 2.3 2 -Current Size (cm) - Width 0.7 0.3 0.3 -Current Size (cm) - Depth 0.4 0.3 0.2 -Total Square Cm 1.82 0.69 0.6 -Photo Taken No -Tunneling No -Undermining/Tunneling No -Circular Undermining No -Exudate Amt Large Small Medium -Exudate Type Serosanguineous Yellow/Green Serosanguineous -Wound Margin Thickened & Thickened & Distinct, Rolled Under Rolled Under Outline Attached -Granulation Amt Large (67-100%) None Present (0 Medium (34-66%) %) -Granulation Quality [place] -Slough/Fibrin Yes Yes -Necrosis Amt Medium (34-66%) Large (67-100%) Medium (34-66%) -Necrotic Tissue Type Adherent Slough Adherent Slough Adherent Slough -Structure Exposed N/A N/A -Texture (Kasia-wound Skin Appearance) Excoriation Scarring,Rash Assessed,Rash -Moisture (Kasia-wound Skin Appearance) Assessed Dry/Scaly Assessed -Color (Kasia-wound Skin Appearance) Erythema Rubor Assessed -Temperature (Kasia-wound Skin No Abnormality No Abnormality No Abnormality Appearance) (Pt Warm) (Pt Warm) (Pt Warm) -Tenderness on Palpation (Kasia-wound No No No Skin Appearance) -Ulcer Cleansing Wound Cleanser Soap and Water Rinsed/ Irrigated with Saline -Foul Odor after Cleansing No No No -Anesthetic Used 4% Lidocaine 5% Lidocaine 5% Lidocaine Solution Gel Gel WC - Nurse 2 - General Ulcer CM Notes Start: 08/24/21 13:01 Freq: Status: Active Protocol: Activity Type Activity Date Activity User E-Sign Co-Sign Detail Recorded Client Recorded Date Recorded By Document 08/24/21 13:14 [id number] 08/24/21 13:21 Document 08/31/21 13:39 [id number] 08/31/21 13:41 Document 09/07/21 15:05 [id number] 09/07/21 15:08 08/24/21 08/31/21 09/07/21 13:14 13:39 15:05 Wound Center Nurse 2 #1- L LATERAL FOOT -Time 13:18 13:39 15:05 -Correct Patient Yes Yes Yes -Correct Side, Site, Position Yes Yes Yes -Correct Procedure Yes Yes Yes -Procedure Performed Yes Yes Yes -Type of Procedure Debridement Debridement Debridement -Clinical Debridement Subcutaneous Subcutaneous Subcutaneous -Tissue Removed Subcutaneous Subcutaneous Subcutaneous -Post Debridement (cm) - Length 2.6 2.6 2.6 -Post Debridement (cm) - Width 0.8 0.4 0.4 -Post Debridement (cm) - Depth 0.4 0.3 0.4 -Total Square (Post) (cm) 2.08 1.04 1.04 -Area of Debridement (cm) - Length 2.6 2.6 2.6 -Area of Debridement (cm) - Width 0.8 0.4 0.4 -Total Square (Area) (cm) 2.08 1.04 1.04 -Tunneling No No -Undermining/Tunneling No No No -Circular Undermining No No No -Wound/Ulcer Outcome Not Healed Not Healed Not Healed -Ulcer Cleansing Rinsed/ Rinsed/ Rinsed/ Irrigated with Irrigated with Irrigated with Saline Saline Saline -Foul Odor after Cleansing No No No -Bioengineered Tissue No No No -Bleeding Controlled with Pressure Pressure Pressure -Offloading Yes Yes Yes -Type of Offloading Surgical Shoe Surgical Shoe Surgical Shoe -Treatment Response Procedure Procedure Procedure Not Tolerated Well Tolerated Well Tolerated Well -Debridement - Subq, 1st 20sq cm Yes Yes Yes Pain Scale: 0-10 Numeric Is Patient Pain Free? Yes Yes Yes - Nurse 3 - General Ulcer D/C NN Start: 08/24/21 13:01 Freq: Status: Active Protocol: Activity Type Activity Date Activity User E-Sign Co-Sign Detail Recorded Client Recorded Date Recorded By Document 08/24/21 13:26 [facility] Desktop 08/24/21 13:26 [facility] Document 09/07/21 15:13 ML [id number] 09/07/21 15:14 ML 08/24/21 09/07/21 13:26 15:13 Wound Care Nurse 3 #1- L LATERAL FOOT -Ulcer Cleansing Rinsed/ Rinsed/ Irrigated with Irrigated with Saline Saline -Foul Odor after Cleansing No -Primary Dressing Applied Other -Other Dressing santyl hydrogel -Primary Dressing Covered/Secured with Dry Gauze & Dry Gauze,Dry Roll Gauze, Gauze & Roll Secured with Gauze,Secured Tape with Tape Treatment Response Procedure Tolerated Well WC - Visit Discharge Discharge Condition Stable Stable Ambulatory Status Ambulatory Ambulatory Transportation Private Auto Private Auto Accompanied by Medication Reconcilliation completed & No provided to patient/care provider Clinical Summary of Care Provided 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 (3) Peripheral vascular occlusive disease: CODE(S): I73.9 - Peripheral vascular disease, unspecified (4) Diabetes mellitus with neuropathy: CODE(S): E11.40 - Type 2 diabetes mellitus with diabetic neuropathy, unspecified (5) Osteomyelitis: CODE(S): M86.9 - Osteomyelitis, unspecified (6) Non-pressure chronic ulcer of other part of left foot with fat layer exposed: CODE(S): L97.522 - Non-pressure chronic ulcer of other part of left foot with fat layer exposed (7) Cellulitis of left lower limb: CODE(S): L03.116 - Cellulitis of left lower limb PLAN: I reviewed and discussed his plan. Debridement was performed today as noted. He was advised to change his dressing daily with Santyl applied nickel thickness. To change his daily wash with antibacterial soap and water. To avoid soaking activities. His recent increased improvement is noted. He was previously diagnosed with osteomyelitis and underwent a fifth ray resection of the left foot at [facility] on 02-04-21. The diagnosis was confirmed with pathological acute osteomyelitis. The clearance fragment that was sent to pathology was negative for acute osteomyelitis. The clearance fragment that was sent to microbiology did not demonstrate some E. coli growth. He was discharged home from the hospital on oral Augmentin and Cipro; completed. This issue was resolved and addressed. Previous labs were reviewed. Hemoglobin A1c on 02-05-21 was 7.5%. On 01-27-21 his ESR was 38 and C- reactive protein was 14.5. On 02-06-21 his white blood cell count was 13.4. His current cellulitis work-up information is as follows: He was switched from cephalexin and Bactrim under the management of his primary care physician to cefadroxil. Labs reviewed as WBC 8.9, esr 111, cr 2.49, GFR 27, a1c 8.3%(on 08/18/21). Xrays show fifth ray resection without soft tissue emphysema, osseous destruction , foreign body. Complete course of cefdinir and Flagyl as also recommended by Dr. Balderas, infectious disease specialist. He is clinically demonstrating a good response. I recommend continued offloading chronic wound site areas with a surgical shoe. To try to keep mostly weight on the heel. I recommend nutritional supplementation optimize healing including Neri nutritional supplement pack daily. It is also noted that his A1c is still elevated which also does not have a good healing outcome. I advised him on continued improved diabetic control. He will return to clinic in 2 weeks. He has delayed healing however he is making progressive progress with each visit. Note: [employer] speech recognition remedial project manager software was used to create portions of this document. Sound-alike and misspelled words, as well as other remedial project manager errors may be contained in the documentation. The medical decision making level is limited based on data including the review of prior external notes, review of a prior test, or ordering a test. The problems addressed require a medical decision making level which includes two or more minor problems, a stable chronic illness, or an acute uncomplicated illness or injury.
== END 2021-09-13 23:59 ==
LOC: WC 14:45
PROVIDERS: PCP Nurse Practitioner Family; Referring Provider Family Medicine; Visit Provider Podiatrist
DX: E11.621 Type 2 diabetes mellitus with foot ulcer (principal); L97.522 Non-pressure chronic ulcer of other part of left foot with fat layer exposed; E11.40 Type 2 diabetes mellitus with diabetic neuropathy, unspecified; E11.51 Type 2 diabetes mellitus with diabetic peripheral angiopathy without gangrene; R21 Rash and other nonspecific skin eruption
CPT/HCPCS: 11042; 36415; 73630; 80053; 85025; 85652; 86140; 87070; 87075; 87077; 87205; 87640

== ENCOUNTER 2021-10-05 10:15 | Outpatient (RCR) | payer MEDICARE, SELFPAY ==
[2021-09-14 00:24] VITALS: BP 137/57; PULSE 74; RESP 16; TEMP 36.8; BMI 23.6
[2021-09-21 13:41] VITALS: BP 137/39; PULSE 76; RESP 20; TEMP 36.2; BMI 23.6
--- NOTE | 2021-09-21 14:26 | PCM.WC.PN ---
History of Present Illness Date of Service: 09/21/21 Chief Complaint: Left foot ulcer History of Wound: This 75-year-old male was seen for left foot ulcer return to the wound healing center today. He had recent lower extremity vascular successful intervention performed with Dr. Bowens. It is noted he has a low ejection fraction and also small vessel disease is suspected. He had a fifth ray resection of the left foot at [facility] on 02/04/2021 for treatment of nonhealing ulcer and osteomyelitis. He has been changing the dressing as advised with santyl. He is with his today. He denies pain today. He has almost completed his course of to cefdinir and Flagyl without side effects or diarrhea. His redness has returned to his foot. He has a scab to his dorsal fourth toe as well in which his has been applying Santyl. Progress of Wound: improving Redness return Objective Data Objective Data Vital Signs: Vital Signs Temp Pulse Resp BP 97.2 F L 76 20 H 137/39 H 09/21/21 13:41 09/21/21 13:41 09/21/21 13:41 09/21/21 13:41 Weight: 60.781 kg Body Mass Index (BMI) 23.6 Physical Exam Extremity Extremity Narrative: No calf tenderness Diminished pulses Muscle wasting noted Skin Skin Narrative: no purulence, no streaking, no odor. atrophic and hairless skin. fibrous ulcer base with some granulation tissue noted to lateral foot in 2 locations. no exposed bone. peripheral thin epithelialization noted and continued. Reduced ulcer size noted. dorsal kasia ulcer inflammation with dry skin and erythema (return with mild intensity). No petechiae to the dorsal foot noted. No adjacent bogginess or fluctuance or william necrosis. Dry eschar to dorsal fourth toe Neuro Neuro Narrative: lack of normal epicritic sensation via light touch is consistent with neuropathy status Debridement Note Debridement Note Wound debrided: Lateral left foot Wound Grade/Stage: 3 Type of Debridement: Excisional debridement Anesthesia Used: 4% Lidocaine Solution Depth: in the subcutaneous layer Percentage of wound debrided: 100 Instrument Used: #15 blade Tissue Removed: fibrous, devitalized subcutaneous, biofilm, slough Severity: Fat Layer Exposed Amount of bleeding with debridement: Mild Bleeding Controlled with: Pressure Patient tolerated procedure: Patient tolerated procedure well Post-Debridement Measurements and Additional Note: Post-Debridement Measurements/Treatment WC - Nurse 1 - General Ulcer Assessment Start: 09/21/21 13:37 Freq: Status: Active Protocol: JV Activity Type Activity Date Activity User E-Sign Co-Sign Detail Recorded Client Recorded Date Recorded By Document 09/21/21 13:41 DL [id number] 09/21/21 13:45 DL 09/21/21 13:41 WC - Today's Visit Information Type of service Follow-up Visit (Physician/ADMINISTRATION CLERK ) Arrival Mode Ambulatory Transfer Assistance None Patient Identification Verified (Name & Yes ) Finger Stick Blood Sugar(mg/dl) (if 77 indicated): Blood Sugar Stated by Patient Height and Weight Body Mass Index (BMI) 23.6 BMI Classification Normal Vital Signs Temperature (97.8 F-99.1 F) 97.2 F L Temperature Source Temporal Pulse Rate (60-100) 76 Pulse Location Monitor Respiratory Rate (12-18) 20 H Respiratory rate source Observation Blood Pressure (90/60-120/80) 137/39 H Blood Pressure Mean (mm Hg) 71 Source Monitor History Since Last Visit- (Skip if this is Patient's initial visit) Have you changed medications since your No last visit? Any new allergies or adverse reactions No Had a fall/change in ADL's that may No increase risk of falls Signs or symptoms of abuse and/or No neglect since last visit Have you been in the hospital since your No last visit? Has dressing in place as prescribed Yes Has compression in place as prescribed N/A Has offloadiing in place as prescribed Yes Experienced any changes in pain level or No management Left Footwear Surgical Shoe with pressure relief insole Pain Scale: 0-10 Numeric Is Patient Pain Free? Yes ALFREDO - Nurse 1 - General Ulcer Measurement Start: 09/21/21 13:37 Freq: Status: Active Protocol: Activity Type Activity Date Activity User E-Sign Co-Sign Detail Recorded Client Recorded Date Recorded By Document 09/21/21 13:41 MARK [id number] 09/21/21 13:45 DL 09/21/21 13:41 Wound Center Nurse 1 #1- L LATERAL FOOT -Current Size (cm) - Length 5 -Current Size (cm) - Width 0.3 -Current Size (cm) - Depth 0.2 -Total Square Cm 1.5 -Photo Taken No -Exudate Amt Small -Wound Margin Indistinct, Non -Visible -Granulation Amt Small (1-33%) -Granulation Quality [place] -Necrosis Amt Small (1-33%) -Necrotic Tissue Type Adherent Slough -Texture (Kasia-wound Skin Appearance) Scarring,Rash -Moisture (Kasia-wound Skin Appearance) No Abnormality -Color (Kasia-wound Skin Appearance) Rubor -Temperature (Kasia-wound Skin No Abnormality Appearance) (Pt Warm) -Tenderness on Palpation (Kasia-wound No Skin Appearance) -Ulcer Cleansing Rinsed/ Irrigated with Saline -Foul Odor after Cleansing No -Anesthetic Used 4% Lidocaine Solution ALFREDO - Nurse 2 - General Ulcer CM Notes Start: 09/21/21 13:37 Freq: Status: Active Protocol: Activity Type Activity Date Activity User E-Sign Co-Sign Detail Recorded Client Recorded Date Recorded By Document 09/21/21 13:52 MICHA [id number] 09/21/21 13:55 MICHA 09/21/21 13:52 Wound Center Nurse 2 -Time 13:52 -Correct Patient Yes -Correct Side, Site, Position Yes -Correct Procedure Yes -Procedure Performed Yes -Type of Procedure Debridement -Clinical Debridement Subcutaneous -Tissue Removed Subcutaneous -Post Debridement (cm) - Length 5.2 -Post Debridement (cm) - Width 0.4 -Post Debridement (cm) - Depth 0.3 -Total Square (Post) (cm) 2.08 -Area of Debridement (cm) - Length 5.2 -Area of Debridement (cm) - Width 0.4 -Total Square (Area) (cm) 2.08 -Tunneling No -Undermining/Tunneling No -Circular Undermining No -Wound/Ulcer Outcome Not Healed -Ulcer Cleansing Rinsed/ Irrigated with Saline -Foul Odor after Cleansing No -Bioengineered Tissue No -Bleeding Controlled with Pressure -Offloading Yes -Type of Offloading Surgical Shoe -Treatment Response Procedure Tolerated Well -Debridement - Subq, 1st 20sq cm Yes Pain Scale: 0-10 Numeric Is Patient Pain Free? Yes - Nurse 3 - General Ulcer D/C NN Start: 09/21/21 13:37 Freq: Status: Active Protocol: Activity Type Activity Date Activity User E-Sign Co-Sign Detail Recorded Client Recorded Date Recorded By Document 09/21/21 14:05 MOHIT [id number] 09/21/21 14:06 RB 09/21/21 14:05 Wound Care Nurse 3 #1- L LATERAL FOOT -Ulcer Cleansing Rinsed/ Irrigated with Saline -Other Dressing santyl -Primary Dressing Covered/Secured with Dry Gauze,Dry Gauze & Roll Gauze,Secured with Tape Treatment Response Procedure Tolerated Well Pain Scale: 0-10 Numeric Is Patient Pain Free? Yes WC - Visit Discharge Discharge Condition Stable Ambulatory Status Ambulatory Transportation Private Auto Medication Reconcilliation completed & No provided to patient/care provider Clinical Summary of Care Provided 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 (3) Peripheral vascular occlusive disease: CODE(S): I73.9 - Peripheral vascular disease, unspecified (4) Diabetes mellitus with neuropathy: CODE(S): E11.40 - Type 2 diabetes mellitus with diabetic neuropathy, unspecified (5) Osteomyelitis: CODE(S): M86.9 - Osteomyelitis, unspecified (6) Non-pressure chronic ulcer of other part of left foot with fat layer exposed: CODE(S): L97.522 - Non-pressure chronic ulcer of other part of left foot with fat layer exposed (7) Cellulitis of left lower limb: CODE(S): L03.116 - Cellulitis of left lower limb (8) Eschar of foot: CODE(S): R23.4 - Changes in skin texture PLAN: I reviewed and discussed his plan. Debridement was performed today as noted. He was advised to change his dressing daily with Santyl applied nickel thickness to the new fourth toe eschar and also to the lateral left foot. To change his daily wash with antibacterial soap and water. To avoid soaking activities. His recent increased improvement is noted. He was previously diagnosed with osteomyelitis and underwent a fifth ray resection of the left foot at [facility] on 02-04-21. The diagnosis was confirmed with pathological acute osteomyelitis. The clearance fragment that was sent to pathology was negative for acute osteomyelitis. The clearance fragment that was sent to microbiology did not demonstrate some E. coli growth. He was discharged home from the hospital on oral Augmentin and Cipro; completed. This issue was resolved and addressed. Previous labs were reviewed. Hemoglobin A1c on 02-05-21 was 7.5%. On 01-27-21 his ESR was 38 and C-reactive protein was 14.5. On 02-06-21 his white blood cell count was 13.4. His current cellulitis work-up information is as follows: He was switched from cephalexin and Bactrim under the management of his primary care physician to cefadroxil. Labs reviewed as WBC 8.9, esr 111, cr 2.49, GFR 27, a1c 8.3%(on 08/18/21). Xrays show fifth ray resection without soft tissue emphysema, osseous destruction , foreign body. Complete course of cefdinir and Flagyl as also recommended by Dr. Balderas, infectious disease specialist. He is clinically demonstrating a good response now with returned erythema. [facility]. I recommend continued offloading chronic wound site areas with a surgical shoe. To try to keep mostly weight on the heel. I recommend nutritional supplementation optimize healing including Neri nutritional supplement pack daily. It is also noted that his A1c is still elevated which also does not have a good healing outcome. I advised him on continued improved diabetic control. He will return to clinic in 1 week. He has delayed healing however he is making progressive progress with each visit. Note: [employer] speech recognition maintenance supervisor mechanical software was used to create portions of this document. Sound-alike and misspelled words, as well as other maintenance supervisor mechanical errors may be contained in the documentation. The medical decision making level is limited based on data including the review of prior external notes, review of a prior test, or ordering a test. The medical decision making level is low. There is noted low risk of morbidity after considering this treatment plan and diagnostic data.
[2021-09-28 14:41] VITALS: BP 157/90; PULSE 95; TEMP 36.1; BMI 23.6
--- NOTE | 2021-09-28 16:11 | PN.PCM_ITS ---
History of Present Illness Date of Service: 09/28/21 Chief Complaint: Left foot ulcer History of Wound: This 75-year-old male was seen for left foot ulcer return to the wound healing center today. He had recent lower extremity vascular successful intervention performed with Dr. Bowens. It is noted he has a low ejection fraction and also small vessel disease is suspected. He had a fifth ray resection of the left foot at [facility] on 02/04/2021 for treatment of nonhealing ulcer and osteomyelitis. He has been changing the dressing as advised with santyl. He is with his today. He denies pain today. He has almost completed his course of to cefdinir and Flagyl without side effects or diarrhea. His redness has decreased but it is not resolved to his foot. He has a scab to his dorsal fourth toe as well in which his has been applying Santyl. Since last week his reports that they only picked up 1 antibiotic and is concerned that they did not start the second 1 yet. Progress of Wound: improving Redness decreased but still present Objective Data Objective Data Vital Signs: Vital Signs Temp Pulse Resp BP 96.9 F L 95 20 H 157/90 H 09/28/21 14:41 09/28/21 14:41 09/21/21 13:41 09/28/21 14:41 Weight: 60.781 kg Body Mass Index (BMI) 23.6 Physical Exam Extremity Extremity Narrative: No calf tenderness Diminished pulses Muscle wasting noted Skin Skin Narrative: no purulence, no streaking, no odor. atrophic and hairless skin. fibrous ulcer base with some granulation tissue noted to lateral foot in 2 locations. no exposed bone. peripheral thin epithelialization noted and continued. Reduced ulcer size noted. dorsal kasia ulcer inflammation with dry skin and erythema (decreased but still present). No petechiae to the dorsal foot noted. No adjacent bogginess or fluctuance or william necrosis. Dry eschar to dorsal fourth toe Neuro Neuro Narrative: lack of normal epicritic sensation via light touch is consistent with neuropathy status Debridement Note Debridement Note Wound debrided: lateral left foot Wound Grade/Stage: 3 Type of Debridement: Excisional debridement Anesthesia Used: 4% Lidocaine Solution Depth: in the subcutaneous layer Percentage of wound debrided: 100 Instrument Used: #15 blade Tissue Removed: fibrous, devitalized subcutaneous, biofilm, slough Severity: Fat Layer Exposed Amount of bleeding with debridement: Mild Bleeding Controlled with: Pressure Patient tolerated procedure: Patient tolerated procedure well Post-Debridement Measurements and Additional Note: Post-Debridement Measurements/Treatment ALFREDO - Nurse 1 - General Ulcer Assessment Start: 09/21/21 13:37 Freq: Status: Active Protocol: JV Activity Type Activity Date Activity User E-Sign Co-Sign Detail Recorded Client Recorded Date Recorded By Document 09/21/21 13:41 DL [id number] 09/21/21 13:45 DL Document 09/28/21 14:41 AK [id number] 09/28/21 14:47 AK 09/21/21 09/28/21 13:41 14:41 WC - Today's Visit Information Type of service Follow-up Visit Follow-up Visit (Physician/AUTOMATIC BLOCKER (Physician/AUTOMATIC BLOCKER ) ) Arrival Mode Ambulatory Ambulatory Transfer Assistance None Patient Identification Verified (Name & Yes No ) Patient Requires Transmission-Based No Precautions Safety Precautions NA Finger Stick Blood Sugar(mg/dl) (if 75 indicated): Blood Sugar Stated by Patient Height and Weight Body Mass Index (BMI) 23.6 23.6 BMI Classification Normal Normal Vital Signs Temperature (97.8 F-99.1 F) 97.2 F L 96.9 F L Temperature Source Temporal Temporal Pulse Rate (60-100) 76 95 Pulse Location Monitor Monitor Respiratory Rate (12-18) 20 H Respiratory rate source Observation Blood Pressure (90/60-120/80) 137/39 H 157/90 H Blood Pressure Mean (mm Hg) 71 112 Source Monitor Monitor History Since Last Visit- (Skip if this is Patient's initial visit) Have you changed medications since your No No last visit? Any new allergies or adverse reactions No No Had a fall/change in ADL's that may No No increase risk of falls Signs or symptoms of abuse and/or No No neglect since last visit Have you been in the hospital since your No No last visit? Has dressing in place as prescribed Yes Yes Has compression in place as prescribed N/A Has offloadiing in place as prescribed Yes N/A Experienced any changes in pain level or No No management Left Footwear Surgical Shoe Regular Shoe with pressure relief insole Right Footwear Regular Shoe Pain Scale: 0-10 Numeric Is Patient Pain Free? Yes ALFREDO - Nurse 1 - General Ulcer Measurement Start: 09/21/21 13:37 Freq: Status: Active Protocol: Activity Type Activity Date Activity User E-Sign Co-Sign Detail Recorded Client Recorded Date Recorded By Document 09/21/21 13:41 DL [id number] 09/21/21 13:45 DL Document 09/28/21 14:41 AK [id number] 09/28/21 14:47 AK 09/21/21 09/28/21 13:41 14:41 Wound Center Nurse 1 #1- L LATERAL FOOT -Combined with other wound No -Current Size (cm) - Length 5 1.6 -Current Size (cm) - Width 0.3 3.8 -Current Size (cm) - Depth 0.2 0.2 -Total Square Cm 1.5 6.08 -Photo Taken No No -Tunneling No -Undermining/Tunneling No -Circular Undermining No -Change in Wound Grade/Stage No -Exudate Amt Small Medium -Exudate Type Serosanguineous -Wound Margin Indistinct, Non Distinct, -Visible Outline Attached -Granulation Amt Small (1-33%) Small (1-33%) -Granulation Quality [place] N/A -Slough/Fibrin No -Necrosis Amt Small (1-33%) Medium (34-66%) -Necrotic Tissue Type Adherent Slough Adherent Slough -Structure Exposed N/A -Texture (Kasia-wound Skin Appearance) Scarring,Rash Assessed, Scarring -Moisture (Kasia-wound Skin Appearance) No Abnormality No Abnormality, Assessed -Color (Kasia-wound Skin Appearance) Rubor No Abnormality, Assessed -Temperature (Kasia-wound Skin No Abnormality No Abnormality Appearance) (Pt Warm) (Pt Warm) -Tenderness on Palpation (Kasia-wound No No Skin Appearance) -Ulcer Cleansing Rinsed/ Rinsed/ Irrigated with Irrigated with Saline Saline -Foul Odor after Cleansing No No -Anesthetic Used 4% Lidocaine 4% Lidocaine Solution Solution Left Calf (cm) 30 Left Ankle (cm) 22.5 WC - Nurse 2 - General Ulcer CM Notes Start: 09/21/21 13:37 Freq: Status: Active Protocol: Activity Type Activity Date Activity User E-Sign Co-Sign Detail Recorded Client Recorded Date Recorded By Document 09/21/21 13:52 [id number] 09/21/21 13:55 Document 09/28/21 15:03 [id number] 09/28/21 15:07 JF 09/21/21 09/28/21 13:52 15:03 Wound Center Nurse 2 3-left 4th toe -Time 15:06 -Correct Patient Yes -Correct Side, Site, Position Yes -Correct Procedure Yes -Procedure Performed Yes -Type of Procedure Debridement -Clinical Debridement Subcutaneous -Tissue Removed Subcutaneous -Post Debridement (cm) - Length 0.3 -Post Debridement (cm) - Width 0.3 -Post Debridement (cm) - Depth 0.1 -Total Square (Post) (cm) 0.09 -Area of Debridement (cm) - Length 0.3 -Area of Debridement (cm) - Width 0.3 -Total Square (Area) (cm) 0.09 -Tunneling No -Undermining/Tunneling No -Circular Undermining No -Wound/Ulcer Outcome Not Healed -Ulcer Cleansing Rinsed/ Irrigated with Saline -Foul Odor after Cleansing No -Bioengineered Tissue No -Bleeding Controlled with Pressure -Offloading Yes -Type of Offloading Surgical Shoe -Treatment Response Procedure Tolerated Well -Debridement - Subq, 1st 20sq cm No #1- L LATERAL FOOT -Time 13:52 15:03 -Correct Patient Yes Yes -Correct Side, Site, Position Yes Yes -Correct Procedure Yes Yes -Procedure Performed Yes Yes -Type of Procedure Debridement Debridement -Clinical Debridement Subcutaneous Subcutaneous -Tissue Removed Subcutaneous Subcutaneous -Post Debridement (cm) - Length 5.2 2.6 -Post Debridement (cm) - Width 0.4 0.3 -Post Debridement (cm) - Depth 0.3 0.2 -Total Square (Post) (cm) 2.08 0.78 -Area of Debridement (cm) - Length 5.2 2.6 -Area of Debridement (cm) - Width 0.4 0.3 -Total Square (Area) (cm) 2.08 0.78 -Tunneling No No -Undermining/Tunneling No No -Circular Undermining No No -Wound/Ulcer Outcome Not Healed Not Healed -Ulcer Cleansing Rinsed/ Rinsed/ Irrigated with Irrigated with Saline Saline -Foul Odor after Cleansing No No -Bioengineered Tissue No No -Bleeding Controlled with Pressure Pressure -Offloading Yes Yes -Type of Offloading Surgical Shoe Surgical Shoe -Treatment Response Procedure Procedure Tolerated Well Tolerated Well -Debridement - Subq, 1st 20sq cm Yes Yes Pain Scale: 0-10 Numeric Is Patient Pain Free? Yes Yes WC - Nurse 3 - General Ulcer D/C NN Start: 09/21/21 13:37 Freq: Status: Active Protocol: Activity Type Activity Date Activity User E-Sign Co-Sign Detail Recorded Client Recorded Date Recorded By Document 09/21/21 14:05 RB [id number] 09/21/21 14:06 RB Document 09/28/21 15:17 RB [id number] 09/28/21 15:20 RB 09/21/21 09/28/21 14:05 15:17 Wound Care Nurse 3 3-left 4th toe -Primary Dressing Applied Mepilex Border -Other Dressing hydrogel, mepilex -Mepilex Border 1 #1- L LATERAL FOOT -Ulcer Cleansing Rinsed/ Irrigated with Saline -Other Dressing santyl hydrogel -Primary Dressing Covered/Secured with Dry Gauze,Dry Gauze & Roll Gauze,Secured with Tape Treatment Response Procedure Procedure Tolerated Well Tolerated Well Pain Scale: 0-10 Numeric Is Patient Pain Free? Yes Yes WC - Visit Discharge Discharge Condition Stable Stable Ambulatory Status Ambulatory Ambulatory Transportation Private Auto Private Auto Medication Reconcilliation completed & No No provided to patient/care provider Clinical Summary of Care Provided Yes 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 (3) Peripheral vascular occlusive disease: CODE(S): I73.9 - Peripheral vascular disease, unspecified (4) Diabetes mellitus with neuropathy: CODE(S): E11.40 - Type 2 diabetes mellitus with diabetic neuropathy, unspecified (5) Osteomyelitis: CODE(S): M86.9 - Osteomyelitis, unspecified (6) Non-pressure chronic ulcer of other part of left foot with fat layer exposed: CODE(S): L97.522 - Non-pressure chronic ulcer of other part of left foot with fat layer exposed (7) Cellulitis of left lower limb: CODE(S): L03.116 - Cellulitis of left lower limb (8) Eschar of foot: CODE(S): R23.4 - Changes in skin texture PLAN: I reviewed and discussed his plan. Debridement was performed today as noted. He was advised to change his dressing daily with Santyl applied nickel thickness to the new fourth toe eschar and also to the lateral left foot. To change his daily wash with antibacterial soap and water. To avoid soaking activities. His recent increased improvement is noted. He was previously diagnosed with osteomyelitis and underwent a fifth ray resection of the left foot at [facility] on 02-04-21. The diagnosis was confirmed with pathological acute osteomyelitis. The clearance fragment that was sent to pathology was negative for acute osteomyelitis. The clearance fragment that was sent to microbiology did not demonstrate some E. coli growth. He was discharged home from the hospital on oral Augmentin and Cipro; completed. This issue was resolved and addressed. Previous labs were reviewed. Hemoglobin A1c on 02-05-21 was 7.5%. On 01-27-21 his ESR was 38 and C- reactive protein was 14.5. On 02-06-21 his white blood cell count was 13.4. His current cellulitis work-up information is as follows: He was switched from cephalexin and Bactrim under the management of his primary care physician to cefadroxil. Labs reviewed as WBC 8.9, esr 111, cr 2.49, GFR 27, a1c 8.3%(on 08/18/21). Xrays show fifth ray resection without soft tissue emphysema, osseous destruction , foreign body. Complete course of cefdinir and Flagyl as also recommended by Dr. Balderas, infectious disease specialist. He is clinically demonstrating a good response now with returned erythema. refills will be sent to [facility] additional week. He was advised to complete antibiotics including for which he has not started the second antibiotic yet. They will pick this up today. I recommend continued offloading chronic wound site areas with a surgical shoe. To try to keep mostly weight on the heel. I recommend nutritional supplementation optimize healing including Neri nutritional supplement pack daily. It is also noted that his A1c is still elevated which also does not have a good healing outcome. I advised him on continued improved diabetic control. He will return to clinic in 1 week. He has delayed healing however he is making progressive progress with each visit. Note: [employer] speech recognition secondary history teacher software was used to create portions of this document. Sound-alike and misspelled words, as well as other secondary history teacher errors may be contained in the documentation. 20 minutes was spent on this encounter. This included face to face and non face to face care including preparing for the visit, reviewing the history, performing the exam, counseling and providing education to the patient, family, or caregiver, ordering medications/test/ procedures if indicated as documented, communicating with other healthcare providers, documenting information in the medical record, interpreting / sharing this information when indicated as documented, and care coordination.
[2021-10-05 10:14] VITALS: BP 131/62; PULSE 69; RESP 18; TEMP 36.4; BMI 23.6
--- NOTE | 2021-10-05 13:25 | PCM.WC.HP ---
History of Present Illness Date of Service: 10/05/21 Chief Complaint: Left foot ulcer History of Wound: This 75-year-old male was seen for left foot ulcer return to the wound healing center today. He had recent lower extremity vascular successful intervention performed with Dr. Bowens. It is noted he has a low ejection fraction and also small vessel disease is suspected. He had a fifth ray resection of the left foot at [facility] on 02/04/2021 for treatment of nonhealing ulcer and osteomyelitis. He has been changing the dressing as advised with santyl. He is with his today. He denies pain today. He has almost completed his course of to cefdinir and Flagyl without side effects or diarrhea. His redness has decreased but it is not resolved to his foot. He has a scab to his dorsal fourth toe as well in which his has been applying Santyl. Since last week his reports that they only picked up 1 antibiotic and is concerned that they did not start the second 1 yet. Progress of Wound: improving Redness decreased but still present [facility] Medical History Anemia Anemia of chronic renal failure, stage 4 (severe) Atherosclerosis of coronary artery bypass graft without angina pectoris Bilateral pleural effusion Callus of foot Chronic HFrEF (heart failure with reduced ejection fraction) Chronic renal failure, stage 4 (severe) Claudication of both lower extremities Delayed wound healing Diabetes mellitus type 2 in nonobese Diabetes mellitus with neuropathy Elevated PSA, between 10 and less than 20 ng/ml Essential (primary) hypertension GERD (gastroesophageal reflux disease) Hammertoe of left foot HLD (hyperlipidemia) Incarcerated right inguinal hernia Ischemic cardiomyopathy Malnutrition Mass of right breast Non-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 Osteomyelitis Peripheral vascular disease Peripheral vascular occlusive disease Right bundle branch block (RBBB) Secondary pulmonary arterial hypertension Tailor's bunion of left foot Type 2 diabetes mellitus Ulcer of left foot with fat layer exposed 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 Ulcer of left foot with necrosis of muscle Home Medications aspirin 81 mg PO DAILY@0800 09/29/14 [History Last Taken 02/03/21 06:00] pantoprazole 40 mg tablet,delayed release 40 mg PO DAILY 30 Days #30 tablet 02/07/18 [History Last Taken 02/04/21 06:00] ferrous sulfate 325 mg PO DAILY@1200 06/05/19 [History Last Taken 05/26/19] escitalopram oxalate 10 mg tablet 10 mg PO DAILY 30 Days #60 tablet 07/13/20 [History Last Taken 02/04/21 06:00] insulin glargine 12.5 unit SQ BID 09/22/20 [History Last Taken 02/03/21 21:00 6.25 units] trazodone 50 mg PO QHS PRN 09/22/20 [History Last Taken Unknown] hydralazine 25 mg tablet 25 mg PO TID #270 tablet 10/21/20 [Rx Last Taken 02/04/21 06:00] gabapentin 100 mg PO QHS 12/22/20 [History Last Taken Unknown] clopidogrel 75 mg PO 02/04/21 [History Last Taken 02/03/21 21:00] tamsulosin 0.8 mg PO DAILY@1730 #60 capsule 02/06/21 [Rx Last Taken Unknown] carvedilol 12.5 mg tablet 12.5 mg PO BID #180 tablet 02/07/21 [Rx Last Taken Unknown] atorvastatin 80 mg tablet 80 mg PO QHS #90 tablet 05/02/21 [Rx Last Taken Unknown] furosemide 20 mg tablet 60 mg PO DAILY 90 Days #270 tablet 08/18/21 [Rx Last Taken Unknown] cephalexin 500 mg PO Q6H 08/24/21 [History Last Taken Unknown] sulfamethoxazole-trimethoprim [Sulfamethoprim DS] 1 tab PO Q12H 08/24/21 [History Last Taken Unknown] cefdinir 300 mg PO DAILY #7 cap 08/28/21 [Rx Last Taken Unknown] cefdinir 300 mg PO DAILY 7 Days #7 cap 09/21/21 [Rx Last Taken Unknown] metronidazole 500 mg PO TID #21 tab 09/21/21 [Rx Last Taken Unknown] Allergy/AdvReac Type Severity Reaction Status Date / Time atorvastatin [From Lipitor] AdvReac Mild myalgias Verified 08/18/21 13:24 Family History Brother CAD (coronary artery disease) Hx CABG Surgical History Amputated toe of left foot (01/2021) H/O coronary artery bypass surgery (04/30/14) History of angioplasty of peripheral vessel (01/20/21) History of left heart catheterization (LHC) (03/20/19) History of right breast biopsy (03/2021) History of right inguinal hernia repair (03/2018) History of thoracentesis Social History Smoking Status: Never smoker alcohol intake: never substance use type: does not use caffeine: No what type of physical activity do you participate in: none seatbelt use: always do you feel safe at home: Yes ROS Constitutional Constitutional: Reports systems reviewed and no addt'l complaints, except as documented Eyes Eyes: Reports systems reviewed and no addt'l complaints, except as documented ENT HEENT: Reports systems reviewed and no addt'l complaints, except as documented Cardiovascular Cardiovascular: Reports systems reviewed and no addt'l complaints, except as documented Respiratory/Chest Respiratory/Chest: Reports systems reviewed and no addt'l complaints, except as documented Gastrointestinal Gastrointestinal: Reports systems reviewed and no addt'l complaints, except as documented Genitourinary Genitourinary: Reports systems reviewed and no addt'l complaints, except as documented Musculoskeletal Musculoskeletal: Reports systems reviewed and no addt'l complaints, except as documented Integumentary Integumentary: Reports systems reviewed and no addt'l complaints, except as documented Neurologic Neurologic: Reports systems reviewed and no addt'l complaints, except as documented Psychiatric Psychiatric: Reports systems reviewed and no addt'l complaints, except as documented Endocrine Endocrinology: Reports systems reviewed and no addt'l complaints, except as documented Hematologic/Lymphatic Hematologic/Lymphatic: Reports systems reviewed and no addt'l complaints, except as documented Allergic/Immunologic Allergic/Immunologic: Reports systems reviewed and no addt'l complaints, except as documented Vital Signs Vital Signs Vital Signs: 10/05/21 10:14 Temperature 97.6 F L Temperature Source Temporal Pulse Rate 69 Respiratory Rate 18 Blood Pressure 131/62 H Blood Pressure Mean 85 Blood Pressure Source Monitor Blood Pressure Position Semi-Fowlers Blood Pressure Location Left Arm Weight Weight: 134 lb Body Mass Index (BMI) 23.6 Physical Exam Extremity Extremity Narrative: No calf tenderness Diminished pulses Muscle wasting noted Skin Skin Narrative: no purulence, no streaking, no odor. atrophic and hairless skin. fibrous ulcer base with some granulation tissue noted to lateral foot in 2 locations. no exposed bone. peripheral thin epithelialization noted and continued. Reduced ulcer size noted. dorsal kasia ulcer inflammation with dry skin and erythema (decreased but still present). No petechiae to the dorsal foot noted. No adjacent bogginess or fluctuance or william necrosis. Dry eschar to dorsal fourth toe Neuro Neuro Narrative: lack of normal epicritic sensation via light touch is consistent with neuropathy status Debridement Note Debridement Note Wound debrided: Left lateral foot cluster Type of Debridement: Excisional debridement Anesthesia Used: 5% Lidocaine Gel Depth: in the subcutaneous layer Percentage of wound debrided: 100 Tissue Removed: Devitalized tissue fibrin Severity: Fat Layer Exposed Amount of bleeding with debridement: Mild Bleeding Controlled with: Compression and gauze Patient tolerated procedure: Patient tolerated procedure well Post-Debridement Measurements and Additional Note: Post-Debridement Measurements/Treatment - Nurse 1 - General Ulcer Assessment Start: 09/21/21 13:37 Freq: Status: Active Protocol: JV Activity Type Activity Date Activity User E-Sign Co-Sign Detail Recorded Client Recorded Date Recorded By Document 09/21/21 13:41 DL [id number] 09/21/21 13:45 DL Document 09/28/21 14:41 AK [id number] 09/28/21 14:47 AK Document 10/05/21 10:14 [facility] [id number] 10/05/21 10:19 BMF 09/21/21 09/28/21 10/05/21 13:41 14:41 10:14 - Today's Visit Information Type of service Follow-up Visit Follow-up Visit Follow-up Visit (Physician/ZIPPER SETTER LOCKSTITCH (Physician/ZIPPER SETTER LOCKSTITCH (Physician/ZIPPER SETTER LOCKSTITCH ) ) ) Arrival Mode Ambulatory Ambulatory Ambulatory Transfer Assistance None None Patient Identification Verified (Name & Yes No Yes ) Patient Requires Transmission-Based No No Precautions Safety Precautions NA Finger Stick Blood Sugar(mg/dl) (if 77 indicated): Blood Sugar Stated by Patient Height and Weight Body Mass Index (BMI) 23.6 23.6 23.6 BMI Classification Normal Normal Normal Vital Signs Temperature (97.8 F-99.1 F) 97.2 F L 96.9 F L 97.6 F L Temperature Source Temporal Temporal Temporal Pulse Rate (60-100) 76 95 69 Pulse Location Monitor Monitor Monitor Respiratory Rate (12-18) 20 H 18 Respiratory rate source Observation Observation Blood Pressure (90/60-120/80) 137/39 H 157/90 H 131/62 H Blood Pressure Mean 71 112 85 Source Monitor Monitor Monitor Position Semi-Fowlers Blood Pressure Location Left Arm History Since Last Visit- (Skip if this is Patient's initial visit) Have you changed medications since your No No No last visit? Any new allergies or adverse reactions No No No Had a fall/change in ADL's that may No No No increase risk of falls Signs or symptoms of abuse and/or No No No neglect since last visit Have you been in the hospital since your No No No last visit? Has dressing in place as prescribed Yes Yes Yes Has compression in place as prescribed N/A No Has offloadiing in place as prescribed Yes N/A Yes Experienced any changes in pain level or No No No management Left Footwear Surgical Shoe Regular Shoe Surgical Shoe with pressure with pressure relief insole relief insole Right Footwear Regular Shoe Surgical Shoe with pressure relief insole Pain Scale: 0-10 Numeric Is Patient Pain Free? Yes Yes WC - Nurse 1 - General Ulcer Measurement Start: 09/21/21 13:37 Freq: Status: Active Protocol: Activity Type Activity Date Activity User E-Sign Co-Sign Detail Recorded Client Recorded Date Recorded By Document 09/21/21 13:41 DL [id number] 09/21/21 13:45 DL Document 09/28/21 14:41 AK [id number] 09/28/21 14:47 AK Document 10/05/21 10:14 [facility] [id number] 10/05/21 10:19 [facility] 09/21/21 09/28/21 10/05/21 13:41 14:41 10:14 Wound Center Nurse 1 3-left 4th toe -Combined with other wound No -Current Size (cm) - Length 0.4 -Current Size (cm) - Width 0.4 -Current Size (cm) - Depth 0.1 -Total Square Cm 0.16 -Tunneling No -Undermining/Tunneling No -Circular Undermining No -Exudate Type Serosanguineous -Wound Margin Thickened & Rolled Under -Granulation Amt Small (1-33%) -Granulation Quality [place] -Slough/Fibrin Yes -Necrosis Amt Large (67-100%) -Necrotic Tissue Type Adherent Slough -Texture (Kasia-wound Skin Appearance) Assessed, Scarring -Moisture (Ksaia-wound Skin Appearance) Assessed -Color (Kasia-wound Skin Appearance) Assessed -Temperature (Kasia-wound Skin No Abnormality Appearance) (Pt Warm) -Tenderness on Palpation (Kasia-wound No Skin Appearance) -Ulcer Cleansing Wound Cleanser -Foul Odor after Cleansing No -Anesthetic Used 5% Lidocaine Gel #1- L LATERAL FOOT -Combined with other wound No No -Current Size (cm) - Length 5 1.6 2.5 -Current Size (cm) - Width 0.3 3.8 0.5 -Current Size (cm) - Depth 0.2 0.2 0.3 -Total Square Cm 1.5 6.08 1.25 -Photo Taken No No -Tunneling No No -Undermining/Tunneling No No -Circular Undermining No No -Change in Wound Grade/Stage No -Exudate Amt Small Medium Medium -Exudate Type Serosanguineous Serosanguineous -Wound Margin Indistinct, Non Distinct, Thickened & -Visible Outline Rolled Under Attached -Granulation Amt Small (1-33%) Small (1-33%) Small (1-33%) -Granulation Quality [place] N/A [place] -Slough/Fibrin No Yes -Necrosis Amt Small (1-33%) Medium (34-66%) Large (67-100%) -Necrotic Tissue Type Adherent Slough Adherent Slough Adherent Slough -Structure Exposed N/A N/A -Texture (Kasia-wound Skin Appearance) Scarring,Rash Assessed, Assessed, Scarring Scarring -Moisture (Kasia-wound Skin Appearance) No Abnormality No Abnormality, Maceration Assessed -Color (Kasia-wound Skin Appearance) Rubor No Abnormality, Assessed Assessed -Temperature (Kasia-wound Skin No Abnormality No Abnormality No Abnormality Appearance) (Pt Warm) (Pt Warm) (Pt Warm) -Tenderness on Palpation (Kasia-wound No No No Skin Appearance) -Ulcer Cleansing Rinsed/ Rinsed/ Rinsed/ Irrigated with Irrigated with Irrigated with Saline Saline Saline -Foul Odor after Cleansing No No -Anesthetic Used 4% Lidocaine 4% Lidocaine 5% Lidocaine Solution Solution Gel,Cetacaine Left Calf (cm) 30 Left Ankle (cm) 22.5 WC - Nurse 2 - General Ulcer CM Notes Start: 09/21/21 13:37 Freq: Status: Active Protocol: Activity Type Activity Date Activity User E-Sign Co-Sign Detail Recorded Client Recorded Date Recorded By Document 09/21/21 13:52 [id number] 09/21/21 13:55 Document 09/28/21 15:03 [id number] 09/28/21 15:07 Document 10/05/21 10:37 [id number] 10/05/21 10:42 09/21/21 09/28/21 10/05/21 13:52 15:03 10:37 Wound Center Nurse 2 3-left 4th toe -Time 15:06 10:38 -Correct Patient Yes Yes -Correct Side, Site, Position Yes Yes -Correct Procedure Yes Yes -Procedure Performed Yes Yes -Type of Procedure Debridement Debridement -Clinical Debridement Subcutaneous Subcutaneous -Tissue Removed Subcutaneous Subcutaneous -Post Debridement (cm) - Length 0.3 0.4 -Post Debridement (cm) - Width 0.3 0.4 -Post Debridement (cm) - Depth 0.1 0.1 -Total Square (Post) (cm) 0.09 0.16 -Area of Debridement (cm) - Length 0.3 0.4 -Area of Debridement (cm) - Width 0.3 0.4 -Total Square (Area) (cm) 0.09 0.16 -Tunneling No No -Undermining/Tunneling No No -Circular Undermining No No -Wound/Ulcer Outcome Not Healed Not Healed -Ulcer Cleansing Rinsed/ Rinsed/ Irrigated with Irrigated with Saline Saline -Foul Odor after Cleansing No No -Bioengineered Tissue No No -Bleeding Controlled with Pressure Pressure -Offloading Yes No -Type of Offloading Surgical Shoe -Treatment Response Procedure Procedure Tolerated Well Tolerated Well -Debridement - Subq, 1st 20sq cm No Yes #1- L LATERAL FOOT -Time 13:52 15:03 10:38 -Correct Patient Yes Yes Yes -Correct Side, Site, Position Yes Yes Yes -Correct Procedure Yes Yes Yes -Procedure Performed Yes Yes Yes -Type of Procedure Debridement Debridement Debridement -Clinical Debridement Subcutaneous Subcutaneous Subcutaneous -Tissue Removed Subcutaneous Subcutaneous Subcutaneous -Post Debridement (cm) - Length 5.2 2.6 2.5 -Post Debridement (cm) - Width 0.4 0.3 0.4 -Post Debridement (cm) - Depth 0.3 0.2 0.3 -Total Square (Post) (cm) 2.08 0.78 1.00 -Area of Debridement (cm) - Length 5.2 2.6 2.5 -Area of Debridement (cm) - Width 0.4 0.3 0.4 -Total Square (Area) (cm) 2.08 0.78 1.00 -Tunneling No No No -Undermining/Tunneling No No No -Circular Undermining No No No -Wound/Ulcer Outcome Not Healed Not Healed Not Healed -Ulcer Cleansing Rinsed/ Rinsed/ Rinsed/ Irrigated with Irrigated with Irrigated with Saline Saline Saline -Foul Odor after Cleansing No No No -Bioengineered Tissue No No No -Bleeding Controlled with Pressure Pressure Pressure -Offloading Yes Yes No -Type of Offloading Surgical Shoe Surgical Shoe -Treatment Response Procedure Procedure Procedure Tolerated Well Tolerated Well Tolerated Well -Debridement - Subq, 1st 20sq cm Yes Yes No Pain Scale: 0-10 Numeric Is Patient Pain Free? Yes Yes Yes - Nurse 3 - General Ulcer D/C NN Start: 09/21/21 13:37 Freq: Status: Active Protocol: Activity Type Activity Date Activity User E-Sign Co-Sign Detail Recorded Client Recorded Date Recorded By Document 09/21/21 14:05 RB [id number] 09/21/21 14:06 RB Document 09/28/21 15:17 RB [id number] 09/28/21 15:20 RB Document 10/05/21 10:58 RB [id number] 10/05/21 10:58 RB 09/21/21 09/28/21 10/05/21 14:05 15:17 10:58 Wound Care Nurse 3 3-left 4th toe -Primary Dressing Applied Mepilex Border NonAdherent Contact Layer -Other Dressing hydrogel, hydrogel mepilex -Primary Dressing Covered/Secured with Dry Gauze,Dry Gauze & Roll Gauze,Secured with Tape -Mepilex Border 1 #1- L LATERAL FOOT -Ulcer Cleansing Rinsed/ Irrigated with Saline -Primary Dressing Applied NonAdherent Contact Layer -Other Dressing santyl hydrogel hydrogel -Primary Dressing Covered/Secured with Dry Gauze,Dry Dry Gauze,Dry Gauze & Roll Gauze & Roll Gauze,Secured Gauze,Secured with Tape with Tape Treatment Response Procedure Procedure Procedure Tolerated Well Tolerated Well Tolerated Well Pain Scale: 0-10 Numeric Is Patient Pain Free? Yes Yes Yes WC - Visit Discharge Discharge Condition Stable Stable Stable Ambulatory Status Ambulatory Ambulatory Ambulatory Transportation Private Auto Private Auto Private Auto Medication Reconcilliation completed & No No No provided to patient/care provider Clinical Summary of Care Provided Yes Yes 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 (3) Peripheral vascular occlusive disease: CODE(S): I73.9 - Peripheral vascular disease, unspecified (4) Diabetes mellitus with neuropathy: CODE(S): E11.40 - Type 2 diabetes mellitus with diabetic neuropathy, unspecified QUALIFIERS: Diabetes mellitus type: type 2 Diabetes mellitus adjunct faculty for medical terminology insulin use: without adjunct faculty for medical terminology use Qualified Code(s): E11.40 - Type 2 diabetes mellitus with diabetic neuropathy, unspecified (5) Osteomyelitis: CODE(S): M86.9 - Osteomyelitis, unspecified QUALIFIERS: Osteomyelitis type: unspecified type Osteomyelitis location: foot Laterality: left Qualified Code(s): M86.9 - Osteomyelitis, unspecified (6) Non-pressure chronic ulcer of other part of left foot with fat layer exposed: CODE(S): L97.522 - Non-pressure chronic ulcer of other part of left foot with fat layer exposed PLAN: Continue using Santyl the left lateral foot cover with Adaptic and gauze and tape till seen by Dr. Davidson next week Daily dressing changes (7) Cellulitis of left lower limb: CODE(S): L03.116 - Cellulitis of left lower limb (8) Eschar of foot: CODE(S): R23.4 - Changes in skin texture
--- NOTE | 2021-10-12 11:51 | WC ---
Patient's called concerned about patient's ashley-ulcer on how the rash has reoccurred from before. Patient has been on sanyl. Vicki is states is more like a rash. I recommended that she stop the santyl for now and start Aquacel-ag that they have already have. Wash the ulcer daily and with soap and water and apply aquaphor or A &D ointment to the ashley-ulcer and we will discuss wound care next wound care. I did explain that if her symptoms get worse, she needs to take him to the Urgent care of ER. She verbalized understanding.
== END 2021-10-14 23:59 ==
LOC: WC 10:15
PROVIDERS: PCP Nurse Practitioner Family; Referring Provider Family Medicine; Visit Provider Podiatrist
DX: E11.621 Type 2 diabetes mellitus with foot ulcer (principal); L97.522 Non-pressure chronic ulcer of other part of left foot with fat layer exposed; E11.51 Type 2 diabetes mellitus with diabetic peripheral angiopathy without gangrene; L03.116 Cellulitis of left lower limb; E11.40 Type 2 diabetes mellitus with diabetic neuropathy, unspecified; R23.4 Changes in skin texture; K21.9 Gastro-esophageal reflux disease without esophagitis; E11.22 Type 2 diabetes mellitus with diabetic chronic kidney disease; I13.0 Hypertensive heart and chronic kidney disease with heart failure and stage 1 through stage 4 chronic kidney disease, or unspecified chronic kidney disease; I50.22 Chronic systolic (congestive) heart failure; N18.4 Chronic kidney disease, stage 4 (severe); E78.5 Hyperlipidemia, unspecified; I25.810 Atherosclerosis of coronary artery bypass graft(s) without angina pectoris; D63.1 Anemia in chronic kidney disease; M20.42 Other hammer toe(s) (acquired), left foot; I27.21 Secondary pulmonary arterial hypertension; Z79.899 Other long term (current) drug therapy; Z79.82 Long term (current) use of aspirin; Z79.4 Long term (current) use of insulin; Z79.02 Long term (current) use of antithrombotics/antiplatelets
CPT/HCPCS: 11042

== ENCOUNTER 2021-11-09 14:45 | Outpatient (RCR) | payer MEDICARE, SELFPAY ==
[2021-10-15 00:23] VITALS: BP 131/62; PULSE 69; RESP 18; TEMP 36.4; BMI 23.6
[2021-10-19 13:09] VITALS: BP 139/47; PULSE 62; TEMP 36.1; BMI 23.6
--- NOTE | 2021-10-19 13:30 | PCM.WC.PN ---
History of Present Illness Date of Service: 10/19/21 Chief Complaint: Left foot ulcer History of Wound: This 75-year-old male was seen for left foot ulcer return to the wound healing center today. He had recent lower extremity vascular successful intervention performed with Dr. Bowens. It is noted he has a low ejection fraction and also small vessel disease is suspected. He had a fifth ray resection of the left foot at [facility] on 02/04/2021 for treatment of nonhealing ulcer and osteomyelitis. He has been changing the dressing as advised with santyl. He is with his today. He denies pain today. He has almost completed his course of to cefdinir and Flagyl without side effects or diarrhea. His redness has decreased but it is not resolved to his foot. He has a scab to his dorsal fourth toe as well in which his has been applying Santyl. He is no longer on antibiotics. His reports his lotion is not demonstrating skin improvement. Progress of Wound: Improving ulcer Irritated periulcer continues Objective Data Objective Data Vital Signs: Vital Signs Temp Pulse Resp BP 97.0 F L 62 18 139/47 H 10/19/21 13:09 10/19/21 13:09 10/15/21 00:23 10/19/21 13:09 Weight: 60.781 kg Body Mass Index (BMI) 23.6 Physical Exam Extremity Extremity Narrative: No calf tenderness Diminished pulses Muscle wasting noted Skin Skin Narrative: no purulence, no streaking, no odor. atrophic and hairless skin. fibrous ulcer base with some granulation tissue noted to lateral foot in 2 locations; decreased sizes. no exposed bone. peripheral thin epithelialization noted and continued. Reduced ulcer size noted. dorsal kasia ulcer inflammation with dry skin and erythema (decreased but still present). No petechiae to the dorsal foot noted. No adjacent bogginess or fluctuance or william necrosis. Dry eschar to dorsal fourth toe remains stable Neuro Neuro Narrative: lack of normal epicritic sensation via light touch is consistent with neuropathy status Debridement Note Debridement Note Wound debrided: Left foot Wound Grade/Stage: 2 Type of Debridement: Selective debridement Anesthesia Used: 4% Lidocaine Solution Depth: Down to and including healthy tissue and in the subcutaneous layer Percentage of wound debrided: 100 Instrument Used: #15 blade Tissue Removed: fibrous, devitalized subcutaneous and tissue, biofilm, slough Severity: Fat Layer Exposed Amount of bleeding with debridement: Mild Bleeding Controlled with: Pressure Patient tolerated procedure: Patient tolerated procedure well Post-Debridement Measurements and Additional Note: Post-Debridement Measurements/Treatment - Nurse 1 - General Ulcer Assessment Start: 10/19/21 13:09 Freq: Status: Active Protocol: JV Activity Type Activity Date Activity User E-Sign Co-Sign Detail Recorded Client Recorded Date Recorded By Document 10/19/21 13:09 FREDDIE [id number] 10/19/21 13:11 FREDDIE 10/19/21 13:09 - Today's Visit Information Type of service Follow-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 Any new allergies or adverse reactions No Had a fall/change in ADL's that may No increase risk of falls Signs or symptoms of abuse and/or No neglect since last visit Have you been in the hospital since your No last visit? Has dressing in place as prescribed Yes Has compression in place as prescribed N/A Has offloadiing in place as prescribed N/A Experienced any changes in pain level or No management Left Footwear Regular Shoe Right Footwear Regular Shoe Pain Scale: 0-10 Numeric Is Patient Pain Free? Yes - Nurse 1 - General Ulcer Measurement Start: 10/19/21 13:09 Freq: Status: Active Protocol: Activity Type Activity Date Activity User E-Sign Co-Sign Detail Recorded Client Recorded Date Recorded By Document 10/19/21 13:09 FREDDIE [id number] 10/19/21 13:11 FREDDIE 10/19/21 13:09 Wound Center Nurse 1 3-left 4th toe -Current Size (cm) - Length 0.1 -Current Size (cm) - Width 0.1 -Current Size (cm) - Depth 0.1 -Total Square Cm 0.01 -Exudate Amt None Present -Wound Margin Distinct, Outline Attached -Granulation Amt None Present (0 %) -Necrosis Amt None Present (0 %) -Texture (Kasia-wound Skin Appearance) Assessed, Scarring -Moisture (Kasia-wound Skin Appearance) Assessed,Dry/ Scaly -Color (Kasia-wound Skin Appearance) No Abnormality, Assessed -Temperature (Kasia-wound Skin No Abnormality Appearance) (Pt Warm) -Tenderness on Palpation (Kasia-wound No Skin Appearance) -Ulcer Cleansing Rinsed/ Irrigated with Saline -Foul Odor after Cleansing No -Anesthetic Used 4% Lidocaine Solution #1- L LATERAL FOOT -Current Size (cm) - Length 0.1 -Current Size (cm) - Width 0.1 -Current Size (cm) - Depth 0.1 -Total Square Cm 0.01 -Exudate Amt Small -Exudate Type Serosanguineous -Wound Margin Distinct, Outline Attached -Granulation Amt Small (1-33%) -Granulation Quality Red -Necrosis Amt None Present (0 %) -Texture (Kasia-wound Skin Appearance) Assessed, Scarring -Moisture (Kasia-wound Skin Appearance) Assessed,Dry/ Scaly -Color (Kasia-wound Skin Appearance) No Abnormality, Assessed -Temperature (Ksaia-wound Skin No Abnormality Appearance) (Pt Warm) -Tenderness on Palpation (Kasia-wound No Skin Appearance) -Ulcer Cleansing Rinsed/ Irrigated with Saline -Foul Odor after Cleansing No -Anesthetic Used 4% Lidocaine Solution WC - Nurse 2 - General Ulcer CM Notes Start: 10/19/21 13:09 Freq: Status: Active Protocol: Activity Type Activity Date Activity User E-Sign Co-Sign Detail Recorded Client Recorded Date Recorded By Document 10/19/21 13:24 [id number] 10/19/21 13:27 MICHA 10/19/21 13:24 Wound Center Nurse 2 3-left 4th toe -Time 13:24 -Correct Patient Yes -Correct Side, Site, Position Yes -Correct Procedure Yes -Procedure Performed Yes -Type of Procedure Debridement -Clinical Debridement Epidermis / Dermis -Tissue Removed Epidermis, Dermis -Post Debridement (cm) - Length 0.5 -Post Debridement (cm) - Width 0.4 -Post Debridement (cm) - Depth 0.1 -Total Square (Post) (cm) 0.20 -Area of Debridement (cm) - Length 0.5 -Area of Debridement (cm) - Width 0.4 -Total Square (Area) (cm) 0.20 -Tunneling No -Undermining/Tunneling No -Circular Undermining No -Ulcer Cleansing Rinsed/ Irrigated with Saline -Foul Odor after Cleansing No -Bioengineered Tissue No -Bleeding Controlled with Pressure -Offloading Yes -Type of Offloading Surgical Shoe -Treatment Response Procedure Tolerated Well -Debridement - Open, 1st 20sq cm Yes -Debridement - Subq, 1st 20sq cm No #1- L LATERAL FOOT -Time 13:26 -Correct Patient Yes -Correct Side, Site, Position Yes -Correct Procedure Yes -Procedure Performed Yes -Type of Procedure Debridement -Clinical Debridement Epidermis / Dermis -Tissue Removed Epidermis, Dermis -Post Debridement (cm) - Length 2.2 -Post Debridement (cm) - Width 0.2 -Post Debridement (cm) - Depth 0.2 -Total Square (Post) (cm) 0.44 -Area of Debridement (cm) - Length 2.2 -Area of Debridement (cm) - Width 0.2 -Total Square (Area) (cm) 0.44 -Tunneling No -Undermining/Tunneling No -Circular Undermining No -Wound/Ulcer Outcome Not Healed -Ulcer Cleansing Rinsed/ Irrigated with Saline -Foul Odor after Cleansing No -Bioengineered Tissue No -Bleeding Controlled with Pressure -Offloading Yes -Type of Offloading Surgical Shoe -Treatment Response Procedure Tolerated Well -Debridement - Open, 1st 20sq cm No -Debridement - Subq, 1st 20sq cm No Pain Scale: 0-10 Numeric Is Patient Pain Free? 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: without penitentiary use Qualified Code(s): E11.40 - Type 2 diabetes mellitus with diabetic neuropathy, unspecified (5) Osteomyelitis: CODE(S): M86.9 - Osteomyelitis, unspecified QUALIFIERS: Osteomyelitis type: unspecified type Osteomyelitis location: foot Laterality: left Qualified Code(s): M86.9 - Osteomyelitis, unspecified (6) Non-pressure chronic ulcer of other part of left foot with fat layer exposed: CODE(S): L97.522 - Non-pressure chronic ulcer 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 Debridement was performed today as noted. He was advised to change his dressing daily with Santyl applied nickel thickness to the new fourth toe eschar and and hydrogel also to the lateral left foot. To change his daily wash with antibacterial soap and water. To avoid soaking activities. His recent increased improvement is noted. He was previously diagnosed with osteomyelitis and underwent a fifth ray resection of the left foot at [facility] on 02-04-21. The diagnosis was confirmed with pathological acute osteomyelitis. The clearance fragment that was sent to pathology was negative for acute osteomyelitis. The clearance fragment that was sent to microbiology did not demonstrate some E. coli growth. He was discharged home from the hospital on oral Augmentin and Cipro; completed. This issue was resolved and addressed. Previous labs were reviewed. Hemoglobin A1c on 02-05-21 was 7.5%. On 01-27-21 his ESR was 38 and C-reactive protein was 14.5. On 02-06-21 his white blood cell count was 13.4. His current cellulitis work-up information is as follows: He was switched from cephalexin and Bactrim under the management of his primary care physician to cefadroxil. Labs reviewed as WBC 8.9, esr 111, cr 2.49, GFR 27, a1c 8.3%(on 08/18/21). Xrays show fifth ray resection without soft tissue emphysema, osseous destruction , foreign body. Complete course of cefdinir and Flagyl as also recommended by Dr. Balderas, infectious disease specialist. He is clinically demonstrating a good response now with returned erythema. ref[facility] additional week. He was advised to complete antibiotics including for which he has not started the second antibiotic yet. I recommend continued offloading chronic wound site areas with a surgical shoe. To try to keep mostly weight on the heel. I recommend nutritional supplementation optimize healing including Neri nutritional supplement pack daily. It is also noted that his A1c is still elevated which also does not have a good healing outcome. I advised him on continued improved diabetic control. A prescription for Lac-Hydrin was sent to [facility] and he was advised to apply this daily avoiding direct application to the wound. This will address his dry skin and periulcer deterioration. He will return to clinic in 1 week. He has delayed healing however he is making progressive progress with each visit. Note: triptap speech recognition inventory associate software was used to create portions of this document. Sound-alike and misspelled words, as well as other inventory associate errors may be contained in the documentation. The medical decision making level is low. There is noted low risk of morbidity after considering this treatment plan and diagnostic data. The problems addressed require a low medical decision making level which includes two or more minor problems, a stable chronic illness, or an acute uncomplicated illness or injury.
[2021-10-26 13:22] VITALS: BP 134/71; PULSE 60; RESP 16; TEMP 36.3; BMI 23.6
--- NOTE | 2021-10-26 14:10 | PCM.WC.PN ---
History of Present Illness Date of Service: 10/26/21 Chief Complaint: Left foot ulcer History of Wound: This 75-year-old male was seen for left foot ulcer return to the wound healing center today. He had recent lower extremity vascular successful intervention performed with Dr. Bowens. It is noted he has a low ejection fraction and also small vessel disease is suspected. He had a fifth ray resection of the left foot at [facility] on 02/04/2021 for treatment of nonhealing ulcer and osteomyelitis. He has been changing the dressing as advised with darlin. He is with his today. He denies pain today. He recently saw dermatology who started him on triamcinolone cream and CeraVe. He will follow-up in 2 weeks. His erythema has decreased intensity. He denies odor. Progress of Wound: Improving ulcer Irritated periulcer improving Objective Data Objective Data Vital Signs: Vital Signs Temp Pulse Resp BP 97.4 F L 60 16 134/71 H 10/26/21 13:22 10/26/21 13:22 10/26/21 13:22 10/26/21 13:22 Oxygen Delivery Method Room Air Weight: 60.781 kg Body Mass Index (BMI) 23.6 Physical Exam Extremity Extremity Narrative: No calf tenderness Diminished pulses Muscle wasting noted Skin Skin Narrative: no purulence, no streaking, no odor. atrophic and hairless skin. fibrous ulcer base with some granulation tissue noted to lateral foot in 2 locations; decreased sizes. no exposed bone. peripheral thin epithelialization noted and continued. Reduced ulcer size noted. dorsal kasia ulcer inflammation with dry skin and erythema (decreased but still present). No petechiae to the dorsal foot noted and decreased . No adjacent bogginess or fluctuance or william necrosis. Dry eschar to dorsal fourth toe remains stable Neuro Neuro Narrative: lack of normal epicritic sensation via light touch is consistent with neuropathy status Debridement Note Debridement Note Wound debrided: left x 2 Wound Grade/Stage: 3 Type of Debridement: Excisional debridement Anesthesia Used: 4% Lidocaine Solution Depth: in the subcutaneous layer Percentage of wound debrided: 100 Instrument Used: #15 blade Tissue Removed: fibrous, devitalized subcutaneous, biofilm, slough Severity: Fat Layer Exposed Amount of bleeding with debridement: Mild Bleeding Controlled with: Pressure Patient tolerated procedure: Patient tolerated procedure well Post-Debridement Measurements and Additional Note: Post-Debridement Measurements/Treatment WC - Nurse 1 - General Ulcer Assessment Start: 10/19/21 13:09 Freq: Status: Active Protocol: JV Activity Type Activity Date Activity User E-Sign Co-Sign Detail Recorded Client Recorded Date Recorded By Document 10/19/21 13:09 KR [id number] 10/19/21 13:11 KR Document 10/26/21 13:22 [facility] [id number] 10/26/21 13:27 BMF 10/19/21 10/26/21 13:09 13:22 - Today's Visit Information Type of service Follow-up Visit Follow-up Visit (Physician/SOFTWARE PROGRAMMER (Physician/SOFTWARE PROGRAMMER ) ) Arrival Mode Ambulatory Ambulatory Transfer Assistance None Accompanied by Patient Identification Verified (Name & Yes Yes ) Height and Weight Body Mass Index (BMI) 23.6 23.6 BMI Classification Normal Normal Vital Signs Temperature (97.8 F-99.1 F) 97.0 F L 97.4 F L Temperature Source Temporal Temporal Pulse Rate (60-100) 62 60 Pulse Location Monitor Monitor Respiratory Rate (12-18) 16 Respiratory rate source Observation Oxygen Delivery Method Room Air Blood Pressure (90/60-120/80) 139/47 H 134/71 H Blood Pressure Mean (mm Hg) 77 92 Source Monitor Monitor Position Semi-Fowlers Sitting Blood Pressure Location Right Arm Left Arm History Since Last Visit- (Skip if this is Patient's initial visit) Have you changed medications since your No Yes last visit? Any new allergies or adverse reactions No No Had a fall/change in ADL's that may No No increase risk of falls Signs or symptoms of abuse and/or No No neglect since last visit Have you been in the hospital since your No No last visit? Has dressing in place as prescribed Yes Yes Has compression in place as prescribed N/A N/A Has offloadiing in place as prescribed N/A Yes Experienced any changes in pain level or No No management Left Footwear Regular Shoe Surgical Shoe with pressure relief insole Right Footwear Regular Shoe Surgical Shoe with pressure relief insole Pain Scale: 0-10 Numeric Is Patient Pain Free? Yes Yes - Nurse 1 - General Ulcer Measurement Start: 10/19/21 13:09 Freq: Status: Active Protocol: Activity Type Activity Date Activity User E-Sign Co-Sign Detail Recorded Client Recorded Date Recorded By Document 10/19/21 13:09 KR [id number] 10/19/21 13:11 KR Document 10/26/21 13:22 [facility] [id number] 10/26/21 13:27 BMF 10/19/21 10/26/21 13:09 13:22 Wound Center Nurse 1 3-left 4th toe -Combined with other wound No -Current Size (cm) - Length 0.1 0.4 -Current Size (cm) - Width 0.1 0.4 -Current Size (cm) - Depth 0.1 0.1 -Total Square Cm 0.01 0.16 -Photo Taken No -Epithelialization None Present -Tunneling No -Undermining/Tunneling No -Circular Undermining No -Exudate Amt None Present None Present -Wound Margin Distinct, Distinct, Outline Outline Attached Attached -Granulation Amt None Present (0 None Present (0 %) %) -Slough/Fibrin Yes -Necrosis Amt None Present (0 Large (67-100%) %) -Necrotic Tissue Type Adherent Slough -Texture (Kasia-wound Skin Appearance) Assessed, Assessed, Scarring Scarring -Moisture (Kasia-wound Skin Appearance) Assessed,Dry/ Assessed Scaly -Color (Kasia-wound Skin Appearance) No Abnormality, Assessed, Assessed Erythema -Temperature (Kasia-wound Skin No Abnormality No Abnormality Appearance) (Pt Warm) (Pt Warm) -Tenderness on Palpation (Kasia-wound No No Skin Appearance) -Ulcer Cleansing Rinsed/ Rinsed/ Irrigated with Irrigated with Saline Saline -Foul Odor after Cleansing No No -Anesthetic Used 4% Lidocaine 5% Lidocaine Solution Gel #1- L LATERAL FOOT -Combined with other wound No -Current Size (cm) - Length 0.1 0.1 -Current Size (cm) - Width 0.1 0.1 -Current Size (cm) - Depth 0.1 0.1 -Total Square Cm 0.01 0.01 -Photo Taken No -Epithelialization Large 67-100% -Tunneling No -Undermining/Tunneling No -Circular Undermining No -Exudate Amt Small None Present -Exudate Type Serosanguineous -Wound Margin Distinct, Distinct, Outline Outline Attached Attached -Granulation Amt Small (1-33%) None Present (0 %) -Granulation Quality Red -Slough/Fibrin Yes -Necrosis Amt None Present (0 Large (67-100%) %) -Necrotic Tissue Type Adherent Slough -Texture (Kasia-wound Skin Appearance) Assessed, Assessed, Scarring Excoriation, Scarring -Moisture (Kasia-wound Skin Appearance) Assessed,Dry/ Assessed Scaly -Color (Kasia-wound Skin Appearance) No Abnormality, Assessed, Assessed Erythema -Temperature (Kasia-wound Skin No Abnormality No Abnormality Appearance) (Pt Warm) (Pt Warm) -Tenderness on Palpation (Kasia-wound No No Skin Appearance) -Ulcer Cleansing Rinsed/ Rinsed/ Irrigated with Irrigated with Saline Saline -Foul Odor after Cleansing No No -Anesthetic Used 4% Lidocaine 5% Lidocaine Solution Gel WC - Nurse 2 - General Ulcer CM Notes Start: 10/19/21 13:09 Freq: Status: Active Protocol: Activity Type Activity Date Activity User E-Sign Co-Sign Detail Recorded Client Recorded Date Recorded By Document 10/19/21 13:24 [id number] 10/19/21 13:27 Document 10/26/21 13:43 [id number] 10/26/21 13:48 10/19/21 10/26/21 13:24 13:43 Wound Center Nurse 2 3-left 4th toe -Time 13:24 13:43 -Correct Patient Yes Yes -Correct Side, Site, Position Yes Yes -Correct Procedure Yes Yes -Procedure Performed Yes Yes -Type of Procedure Debridement Debridement -Clinical Debridement Epidermis / Subcutaneous Dermis -Tissue Removed Epidermis, Subcutaneous Dermis -Post Debridement (cm) - Length 0.5 0.4 -Post Debridement (cm) - Width 0.4 0.4 -Post Debridement (cm) - Depth 0.1 0.2 -Total Square (Post) (cm) 0.20 0.16 -Area of Debridement (cm) - Length 0.5 0.4 -Area of Debridement (cm) - Width 0.4 0.4 -Total Square (Area) (cm) 0.20 0.16 -Tunneling No No -Undermining/Tunneling No No -Circular Undermining No No -Wound/Ulcer Outcome Not Healed -Ulcer Cleansing Rinsed/ Rinsed/ Irrigated with Irrigated with Saline Saline -Foul Odor after Cleansing No No -Bioengineered Tissue No No -Bleeding Controlled with Pressure Pressure -Offloading Yes Yes -Type of Offloading Surgical Shoe Surgical Shoe -Treatment Response Procedure Procedure Tolerated Well Tolerated Well -Debridement - Open, 1st 20sq cm Yes -Debridement - Subq, 1st 20sq cm No No #1- L LATERAL FOOT -Time 13:26 13:44 -Correct Patient Yes Yes -Correct Side, Site, Position Yes Yes -Correct Procedure Yes Yes -Procedure Performed Yes Yes -Type of Procedure Debridement Debridement -Clinical Debridement Epidermis / Subcutaneous Dermis -Tissue Removed Epidermis, Subcutaneous Dermis -Post Debridement (cm) - Length 2.2 2.6 -Post Debridement (cm) - Width 0.2 0.5 -Post Debridement (cm) - Depth 0.2 0.2 -Total Square (Post) (cm) 0.44 1.30 -Area of Debridement (cm) - Length 2.2 2.6 -Area of Debridement (cm) - Width 0.2 0.5 -Total Square (Area) (cm) 0.44 1.30 -Tunneling No No -Undermining/Tunneling No No -Circular Undermining No No -Wound/Ulcer Outcome Not Healed Not Healed -Ulcer Cleansing Rinsed/ Rinsed/ Irrigated with Irrigated with Saline Saline -Foul Odor after Cleansing No No -Bioengineered Tissue No No -Bleeding Controlled with Pressure Pressure -Offloading Yes Yes -Type of Offloading Surgical Shoe Surgical Shoe -Treatment Response Procedure Procedure Tolerated Well Tolerated Well -Debridement - Open, 1st 20sq cm No -Debridement - Subq, 1st 20sq cm No Yes Pain Scale: 0-10 Numeric Is Patient Pain Free? Yes Yes WC - Nurse 3 - General Ulcer D/C NN Start: 10/19/21 13:09 Freq: Status: Active Protocol: Activity Type Activity Date Activity User E-Sign Co-Sign Detail Recorded Client Recorded Date Recorded By Document 10/19/21 13:38 KR [id number] 10/19/21 13:38 KR Document 10/26/21 13:55 DL [id number] 10/26/21 13:57 DL 10/19/21 10/26/21 13:38 13:55 Wound Care Nurse 3 3-left 4th toe -Ulcer Cleansing Rinsed/ Rinsed/ Irrigated with Irrigated with Saline Saline -Foul Odor after Cleansing No -Other Dressing HYDROGEL -Primary Dressing Covered/Secured with Dry Gauze, Dry Gauze & Secured with Roll Gauze, Tape Secured with Tape #1- L LATERAL FOOT -Ulcer Cleansing Rinsed/ Irrigated with Saline -Foul Odor after Cleansing No -Primary Dressing Applied C Hydrogel ($) -Other Dressing HYDROGEL -Primary Dressing Covered/Secured with Dry Gauze, Dry Gauze, Secured with Secured with Tape Tape Treatment Response Procedure Tolerated Well Pain Scale: 0-10 Numeric Is Patient Pain Free? Yes Yes WC - Visit Discharge Discharge Condition Stable Stable Ambulatory Status Ambulatory Ambulatory Transportation Private Auto Private Auto Accompanied by Assessment/Plan Assessment/Plan (1) Delayed wound healing: CODE(S): T14.8XXD - Other injury of unspecified body region, subsequent encounter (2) Ulcer of left foot with fat layer exposed: CODE(S): L97.522 - Non-pressure chronic ulcer of other part of left foot with fat layer exposed (3) Peripheral vascular occlusive disease: CODE(S): I73.9 - Peripheral vascular disease, unspecified (4) Diabetes mellitus with neuropathy: CODE(S): E11.40 - Type 2 diabetes mellitus with diabetic neuropathy, unspecified QUALIFIERS: Diabetes mellitus type: type 2 Diabetes mellitus jail insulin use: without buttermilk drier operator use Qualified Code(s): E11.40 - Type 2 diabetes mellitus with diabetic neuropathy, unspecified (5) Osteomyelitis: CODE(S): M86.9 - Osteomyelitis, unspecified QUALIFIERS: Osteomyelitis type: unspecified type Osteomyelitis location: foot Laterality: left Qualified Code(s): M86.9 - Osteomyelitis, unspecified (6) Non-pressure chronic ulcer of other part of left foot with fat layer exposed: CODE(S): L97.522 - Non-pressure chronic ulcer 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 Debridement was performed today as noted. He was advised to change his dressing daily with Santyl applied nickel thickness to the new fourth toe eschar and and hydrogel also to the lateral left foot. To change his daily wash with antibacterial soap and water. To avoid soaking activities. His recent increased improvement is noted. He was previously diagnosed with osteomyelitis and underwent a fifth ray resection of the left foot at [facility] on 02-04-21. The diagnosis was confirmed with pathological acute osteomyelitis. The clearance fragment that was sent to pathology was negative for acute osteomyelitis. The clearance fragment that was sent to microbiology did not demonstrate some E. coli growth. He was discharged home from the hospital on oral Augmentin and Cipro; completed. This issue was resolved and addressed. Previous labs were reviewed. Hemoglobin A1c on 02-05-21 was 7.5%. On 01-27-21 his ESR was 38 and C-reactive protein was 14.5. On 02-06-21 his white blood cell count was 13.4. His current cellulitis work-up information is as follows: He was switched from cephalexin and Bactrim under the management of his primary care physician to cefadroxil. Labs reviewed as WBC 8.9, esr 111, cr 2.49, GFR 27, a1c 8.3%(on 08/18/21). Xrays show fifth ray resection without soft tissue emphysema, osseous destruction , foreign body. Complete course of cefdinir and Flagyl as also recommended by Dr. Balderas, infectious disease specialist. He is clinically demonstrating a good response now with returned erythema. [facility] He was advised to complete antibiotics including for which he has not started the second antibiotic yet. I recommend continued offloading chronic wound site areas with a surgical shoe. To try to keep mostly weight on the heel. I recommend nutritional supplementation optimize healing including Neri nutritional supplement pack daily. It is also noted that his A1c is still elevated which also does not have a good healing outcome. I advised him on continued improved diabetic control. His dermatology recommendations are noted. He is on triamcinolone and survey. To follow-up as scheduled. He will return to clinic in 1 week. He has delayed healing however he is making progressive progress with each visit. Note: [employer] speech recognition lye bath operator software was used to create portions of this document. Sound-alike and misspelled words, as well as other lye bath operator errors may be contained in the documentation.
[2021-11-09 14:43] VITALS: BP 151/73; PULSE 71; RESP 16; TEMP 36.2; BMI 23.6
--- NOTE | 2021-11-09 17:07 | PN.PCM_ITS ---
History of Present Illness Date of Service: 11/09/21 Chief Complaint: Left foot ulcer History of Wound: This 75-year-old male was seen for left foot ulcer return to the wound healing center today. He had recent lower extremity vascular successful intervention performed with Dr. Bowens. It is noted he has a low ejection fraction and also small vessel disease is suspected. He had a fifth ray resection of the left foot at [facility] on 02/04/2021 for treatment of nonhealing ulcer and osteomyelitis. He has been changing the dressing as advised with darlin. He is with his today. He denies pain today. He recently saw dermatology who started him on triamcinolone cream and CeraVe. His erythema has decreased intensity. He denies odor. Progress of Wound: Improving ulcer periulcer improving Objective Data Objective Data Vital Signs: Vital Signs Temp Pulse Resp BP 97.2 F L 71 16 151/73 H 11/09/21 14:43 11/09/21 14:43 11/09/21 14:43 11/09/21 14:43 Oxygen Delivery Method Room Air Weight: 60.781 kg Body Mass Index (BMI) 23.6 Physical Exam Extremity Extremity Narrative: No calf tenderness Diminished pulses Muscle wasting noted Skin Skin Narrative: no purulence, no streaking, no odor. atrophic and hairless skin. fibrous ulcer base with some granulation tissue noted to lateral foot in 2 locations; decreased sizes. no exposed bone. peripheral thin epithelialization noted and continued. Reduced ulcer size noted. dorsal kasia ulcer inflammation with dry skin and erythema (decreased but still present). No petechiae to the dorsal foot noted and decreased. No adjacent bogginess or fluctuance or william necrosis. Dry eschar to dorsal fourth toe remains stable now with more fibrous tissue and less eschar Neuro Neuro Narrative: lack of normal epicritic sensation via light touch is consistent with neuropathy status Debridement Note Debridement Note Wound debrided: dorsal left fourth toe and lateral left forefoot Wound Grade/Stage: 1,3 Type of Debridement: Excisional debridement Anesthesia Used: 4% Lidocaine Solution Depth: in the subcutaneous layer Percentage of wound debrided: 100 Instrument Used: #15 blade Tissue Removed: fibrous, devitalized subcutaneous, biofilm, slough Severity: Fat Layer Exposed Amount of bleeding with debridement: Mild Bleeding Controlled with: Pressure Patient tolerated procedure: Patient tolerated procedure well Post-Debridement Measurements and Additional Note: Post-Debridement Measurements/Treatment WC - Nurse 1 - General Ulcer Assessment Start: 10/19/21 13:09 Freq: Status: Active Protocol: [email or web address].[email or web address] Activity Type Activity Date Activity User E-Sign Co-Sign Detail Recorded Client Recorded Date Recorded By Document 10/19/21 13:09 KR [id number] 10/19/21 13:11 KR Document 10/26/21 13:22 [facility] [id number] 10/26/21 13:27 BM Document 11/09/21 14:43 [facility] [id number] 11/09/21 14:51 BMF 10/19/21 10/26/21 11/09/21 13:09 13:22 14:43 WC - Today's Visit Information Type of service Follow-up Visit Follow-up Visit Follow-up Visit (Physician/STOCK PREPARATION SUPERVISOR (Physician/STOCK PREPARATION SUPERVISOR (Physician/STOCK PREPARATION SUPERVISOR ) ) ) Arrival Mode Ambulatory Ambulatory Ambulatory Transfer Assistance None Accompanied by Patient Identification Verified (Name & Yes Yes Yes ) Patient Requires Transmission-Based No Precautions Height and Weight Body Mass Index (BMI) 23.6 23.6 23.6 BMI Classification Normal Normal Normal Vital Signs Temperature (97.8 F-99.1 F) 97.0 F L 97.4 F L 97.2 F L Temperature Source Temporal Temporal Temporal Pulse Rate (60-100) 62 60 71 Pulse Location Monitor Monitor Monitor Respiratory Rate (12-18) 16 16 Respiratory rate source Observation Observation Oxygen Delivery Method Room Air Room Air Blood Pressure (90/60-120/80) 139/47 H 134/71 H 151/73 H Blood Pressure Mean (mm Hg) 77 92 99 Source Monitor Monitor Monitor Position Semi-Fowlers Sitting Sitting Blood Pressure Location Right Arm Left Arm Left Arm History Since Last Visit- (Skip if this is Patient's initial visit) Have you changed medications since your No Yes No last visit? Any new allergies or adverse reactions No No No Had a fall/change in ADL's that may No No No increase risk of falls Signs or symptoms of abuse and/or No No No neglect since last visit Have you been in the hospital since your No No No last visit? Has dressing in place as prescribed Yes Yes Yes Has compression in place as prescribed N/A N/A N/A Has offloadiing in place as prescribed N/A Yes Yes Experienced any changes in pain level or No No No management Left Footwear Regular Shoe Surgical Shoe Surgical Shoe with pressure with pressure relief insole relief insole Right Footwear Regular Shoe Surgical Shoe Regular Shoe with pressure relief insole Pain Scale: 0-10 Numeric Is Patient Pain Free? Yes Yes Yes WC - Nurse 1 - General Ulcer Measurement Start: 10/19/21 13:09 Freq: Status: Active Protocol: Activity Type Activity Date Activity User E-Sign Co-Sign Detail Recorded Client Recorded Date Recorded By Document 10/19/21 13:09 KR [id number] 10/19/21 13:11 KR Document 10/26/21 13:22 [facility] [id number] 10/26/21 13:27 BM Document 11/09/21 14:43 [facility] [id number] 11/09/21 14:51 [facility] 10/19/21 10/26/21 11/09/21 13:09 13:22 14:43 Wound Center Nurse 1 3-left 4th toe -Combined with other wound No No -Current Size (cm) - Length 0.1 0.4 0.5 -Current Size (cm) - Width 0.1 0.4 0.5 -Current Size (cm) - Depth 0.1 0.1 0.1 -Total Square Cm 0.01 0.16 0.25 -Photo Taken No No -Epithelialization None Present None Present -Tunneling No No -Undermining/Tunneling No No -Circular Undermining No No -Exudate Amt None Present None Present None Present -Wound Margin Distinct, Distinct, Distinct, Outline Outline Outline Attached Attached Attached -Granulation Amt None Present (0 None Present (0 None Present (0 %) %) %) -Slough/Fibrin Yes Yes -Necrosis Amt None Present (0 Large (67-100%) Large (67-100%) %) -Necrotic Tissue Type Adherent Slough Adherent Slough -Texture (Kasia-wound Skin Appearance) Assessed, Assessed, Assessed, Scarring Scarring Scarring -Moisture (Kasia-wound Skin Appearance) Assessed,Dry/ Assessed Assessed Scaly -Color (Kasia-wound Skin Appearance) No Abnormality, Assessed, Assessed Assessed Erythema -Temperature (Kasia-wound Skin No Abnormality No Abnormality No Abnormality Appearance) (Pt Warm) (Pt Warm) (Pt Warm) -Tenderness on Palpation (Kasia-wound No No No Skin Appearance) -Ulcer Cleansing Rinsed/ Rinsed/ Soap and Water Irrigated with Irrigated with Saline Saline -Foul Odor after Cleansing No No No -Anesthetic Used 4% Lidocaine 5% Lidocaine 5% Lidocaine Solution Gel Gel #1- L LATERAL FOOT -Combined with other wound No No -Current Size (cm) - Length 0.1 0.1 0.1 -Current Size (cm) - Width 0.1 0.1 0.1 -Current Size (cm) - Depth 0.1 0.1 0.1 -Total Square Cm 0.01 0.01 0.01 -Photo Taken No No -Epithelialization Large 67-100% Large 67-100% -Tunneling No No -Undermining/Tunneling No No -Circular Undermining No No -Exudate Amt Small None Present None Present -Exudate Type Serosanguineous -Wound Margin Distinct, Distinct, Outline Outline Attached Attached -Granulation Amt Small (1-33%) None Present (0 %) -Granulation Quality Red -Slough/Fibrin Yes -Necrosis Amt None Present (0 Large (67-100%) %) -Necrotic Tissue Type Adherent Slough -Texture (Kasia-wound Skin Appearance) Assessed, Assessed, Assessed, Scarring Excoriation, Scarring,Rash Scarring -Moisture (Kasia-wound Skin Appearance) Assessed,Dry/ Assessed Assessed,Dry/ Scaly Scaly -Color (Kasia-wound Skin Appearance) No Abnormality, Assessed, Assessed, Assessed Erythema Erythema -Temperature (Kasia-wound Skin No Abnormality No Abnormality No Abnormality Appearance) (Pt Warm) (Pt Warm) (Pt Warm) -Tenderness on Palpation (Kasia-wound No No No Skin Appearance) -Ulcer Cleansing Rinsed/ Rinsed/ Rinsed/ Irrigated with Irrigated with Irrigated with Saline Saline Saline -Foul Odor after Cleansing No No No -Anesthetic Used 4% Lidocaine 5% Lidocaine 5% Lidocaine Solution Gel Gel WC - Nurse 2 - General Ulcer CM Notes Start: 10/19/21 13:09 Freq: Status: Active Protocol: Activity Type Activity Date Activity User E-Sign Co-Sign Detail Recorded Client Recorded Date Recorded By Document 10/19/21 13:24 MICHA [id number] 10/19/21 13:27 Document 10/26/21 13:43 [id number] 10/26/21 13:48 JF Document 11/09/21 15:05 [id number] 11/09/21 15:07 10/19/21 10/26/21 11/09/21 13:24 13:43 15:05 Wound Center Nurse 2 3-left 4th toe -Time 13:24 13:43 15:05 -Correct Patient Yes Yes Yes -Correct Side, Site, Position Yes Yes Yes -Correct Procedure Yes Yes Yes -Procedure Performed Yes Yes Yes -Type of Procedure Debridement Debridement Debridement -Clinical Debridement Epidermis / Subcutaneous Subcutaneous Dermis -Tissue Removed Epidermis, Subcutaneous Subcutaneous Dermis -Post Debridement (cm) - Length 0.5 0.4 0.5 -Post Debridement (cm) - Width 0.4 0.4 0.6 -Post Debridement (cm) - Depth 0.1 0.2 0.1 -Total Square (Post) (cm) 0.20 0.16 0.30 -Area of Debridement (cm) - Length 0.5 0.4 0.5 -Area of Debridement (cm) - Width 0.4 0.4 0.6 -Total Square (Area) (cm) 0.20 0.16 0.30 -Tunneling No No No -Undermining/Tunneling No No No -Circular Undermining No No No -Wound/Ulcer Outcome Not Healed Not Healed -Ulcer Cleansing Rinsed/ Rinsed/ Rinsed/ Irrigated with Irrigated with Irrigated with Saline Saline Saline -Foul Odor after Cleansing No No No -Bioengineered Tissue No No No -Bleeding Controlled with Pressure Pressure Pressure -Offloading Yes Yes Yes -Type of Offloading Surgical Shoe Surgical Shoe Surgical Shoe -Treatment Response Procedure Procedure Procedure Tolerated Well Tolerated Well Tolerated Well -Debridement - Open, 1st 20sq cm Yes -Debridement - Subq, 1st 20sq cm No No Yes #1- L LATERAL FOOT -Time 13: 13:44 15:05 -Correct Patient Yes Yes Yes -Correct Side, Site, Position Yes Yes Yes -Correct Procedure Yes Yes Yes -Procedure Performed Yes Yes Yes -Type of Procedure Debridement Debridement Debridement -Clinical Debridement Epidermis / Subcutaneous Subcutaneous Dermis -Tissue Removed Epidermis, Subcutaneous Subcutaneous Dermis -Post Debridement (cm) - Length 2.2 2.6 2.5 -Post Debridement (cm) - Width 0.2 0.5 0.2 -Post Debridement (cm) - Depth 0.2 0.2 0.2 -Total Square (Post) (cm) 0.44 1.30 0.50 -Area of Debridement (cm) - Length 2.2 2.6 2.5 -Area of Debridement (cm) - Width 0.2 0.5 0.2 -Total Square (Area) (cm) 0.44 1.30 0.50 -Tunneling No No No -Undermining/Tunneling No No No -Circular Undermining No No No -Wound/Ulcer Outcome Not Healed Not Healed Not Healed -Ulcer Cleansing Rinsed/ Rinsed/ Rinsed/ Irrigated with Irrigated with Irrigated with Saline Saline Saline -Foul Odor after Cleansing No No No -Bioengineered Tissue No No No -Bleeding Controlled with Pressure Pressure Pressure -Offloading Yes Yes Yes -Type of Offloading Surgical Shoe Surgical Shoe Surgical Shoe -Treatment Response Procedure Procedure Procedure Tolerated Well Tolerated Well Tolerated Well -Debridement - Open, 1st 20sq cm No -Debridement - Subq, 1st 20sq cm No Yes No Pain Scale: 0-10 Numeric Is Patient Pain Free? Yes Yes Yes - Nurse 3 - General Ulcer D/C NN Start: 10/19/21 13:09 Freq: Status: Active Protocol: Activity Type Activity Date Activity User E-Sign Co-Sign Detail Recorded Client Recorded Date Recorded By Document 10/19/21 13:38 KR [id number] 10/19/21 13:38 KR Document 10/26/21 13:55 DL [id number] 10/26/21 13:57 DL Document 11/09/21 15:13 [id number] 11/09/21 15:13 10/19/21 10/26/21 11/09/21 13:38 13:55 15:13 Wound Care Nurse 3 3-left 4th toe -Ulcer Cleansing Rinsed/ Rinsed/ Rinsed/ Irrigated with Irrigated with Irrigated with Saline Saline Saline -Foul Odor after Cleansing No No -Primary Dressing Applied Enzymatic -Other Dressing HYDROGEL -Primary Dressing Covered/Secured with Dry Gauze, Dry Gauze & Dry Gauze & Secured with Roll Gauze, Roll Gauze, Tape Secured with Secured with Tape Tape #1- L LATERAL FOOT -Ulcer Cleansing Rinsed/ Rinsed/ Irrigated with Irrigated with Saline Saline -Foul Odor after Cleansing No No -Primary Dressing Applied C Hydrogel ($) Enzymatic -Other Dressing HYDROGEL -Primary Dressing Covered/Secured with Dry Gauze, Dry Gauze, Dry Gauze & Secured with Secured with Roll Gauze, Tape Tape Secured with Tape Treatment Response Procedure Tolerated Well Pain Scale: 0-10 Numeric Is Patient Pain Free? Yes Yes Yes WC - Visit Discharge Discharge Condition Stable Stable Stable Ambulatory Status Ambulatory Ambulatory Ambulatory,Cane Transportation Private Auto Private Auto Private Auto Accompanied by Medication Reconcilliation completed & Yes provided to patient/care provider Clinical Summary of Care Provided Yes Assessment/Plan Assessment/Plan (1) Delayed wound healing: CODE(S): T14.8XXD - Other injury of unspecified body region, subsequent en counter (2) Ulcer of left foot with fat layer exposed: CODE(S): L97.522 - Non-pressure chronic ulcer of other part of left foot with fat layer exposed (3) Peripheral vascular occlusive disease: CODE(S): I73.9 - Peripheral vascular disease, unspecified (4) Diabetes mellitus with neuropathy: CODE(S): E11.40 - Type 2 diabetes mellitus with diabetic neuropathy, unspecified QUALIFIERS: 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 use: without intermodal owner operator truck driver use Diabetes mellitus type: type 2 Qualified Code(s): E11.40 - Type 2 diabetes mellitus with diabetic neuropathy, unspecified (5) Osteomyelitis: CODE(S): M86.9 - Osteomyelitis, unspecified QUALIFIERS: Laterality: left Osteomyelitis location: foot Osteomyelitis type: unspecified type Qualified Code(s): M86.9 - Osteomyelitis, unspecified (6) Non-pressure chronic ulcer of other part of left foot with fat layer exposed: CODE(S): L97.522 - Non-pressure chronic ulcer 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 Debridement was performed today as noted. He was advised to change his dressing daily with Santyl applied nickel thickness to the new fourth toe eschar and and hydrogel also to the lateral left foot. To change his daily wash with antibacterial soap and water. To avoid soaking activities. His recent increased improvement is noted. He was previously diagnosed with osteomyelitis and underwent a fifth ray resection of the left foot at [facility] on 02-04-21. The diagnosis was confirmed with pathological acute osteomyelitis. The clearance fragment that was sent to pathology was negative for acute osteomyelitis. The clearance fragment that was sent to microbiology did not demonstrate some E. coli growth. He was discharged home from the hospital on oral Augmentin and Cipro; completed. This issue was resolved and addressed. Previous labs were reviewed. Hemoglobin A1c on 02-05-21 was 7.5%. On 01-27-21 his ESR was 38 and C- reactive protein was 14.5. On 02-06-21 his white blood cell count was 13.4. His current cellulitis work-up information is as follows: He was switched from cephalexin and Bactrim under the management of his primary care physician to cefadroxil. Labs reviewed as WBC 8.9, esr 111, cr 2.49, GFR 27, a1c 8.3%(on 08/18/21). Xrays show fifth ray resection without soft tissue emphysema, osseous destruction , foreign body. Complete course of cefdinir and Flagyl as also recommended by Dr. Balderas, infectious disease specialist. He is clinically demonstrating a good response now with returned erythema. [facility] He was advised to complete antibiotics including for which he has not started the second antibiotic yet. I recommend continued offloading chronic wound site areas with a surgical shoe. To try to keep mostly weight on the heel. I recommend nutritional supplementation optimize healing including Neri nutritional supplement pack daily. It is also noted that his A1c is still elevated which also does not have a good healing outcome. I advised him on continued improved diabetic control. His dermatology recommendations are noted. He is on triamcinolone and cera ve. To follow-up as scheduled. He will return to clinic in 1 week. He has delayed healing however he is making progressive progress with each visit. Note: [employer] speech recognition induction heating equipment setter software was used to create portions of this document. Sound-alike and misspelled words, as well as other induction heating equipment setter errors may be contained in the documentation.
== END 2021-11-14 23:59 ==
LOC: WC 14:45
PROVIDERS: PCP Nurse Practitioner Family; Referring Provider Family Medicine; Visit Provider Podiatrist
DX: E11.621 Type 2 diabetes mellitus with foot ulcer (principal); E11.51 Type 2 diabetes mellitus with diabetic peripheral angiopathy without gangrene; L97.522 Non-pressure chronic ulcer of other part of left foot with fat layer exposed; M86.8X7 Other osteomyelitis, ankle and foot; E11.69 Type 2 diabetes mellitus with other specified complication; E11.40 Type 2 diabetes mellitus with diabetic neuropathy, unspecified; L03.116 Cellulitis of left lower limb; R23.4 Changes in skin texture; L85.3 Xerosis cutis
CPT/HCPCS: 11042; 97597

== ENCOUNTER 2021-12-07 13:00 | Outpatient (RCR) | payer MEDICARE, SELFPAY ==
[2021-11-15 00:28] VITALS: BP 151/73; PULSE 71; RESP 16; TEMP 36.2; BMI 23.6
[2021-11-25 14:21] VITALS: BP 142/59; PULSE 66; RESP 18; TEMP 36.1; BMI 23.6
--- NOTE | 2021-11-25 16:58 | PN.PCM_ITS ---
History of Present Illness Date of Service: 11/25/21 Chief Complaint: Left foot ulcer History of Wound: This 75-year-old male was seen for left foot ulcer return to the wound healing center today. He had recent lower extremity vascular successful intervention performed with Dr. Bowens. It is noted he has a low ejection fraction and also small vessel disease is suspected. He had a fifth ray resection of the left foot at [facility] on 02/04/2021 for treatment of nonhealing ulcer and osteomyelitis. He has been changing the dressing as advised with darlin. He is with his today. He denies pain today. He recently saw dermatology who started him on triamcinolone cream which was switched to betamethasone and he was also advised to continue topical CeraVe. His erythema has resolved. He denies odor. Progress of Wound: Improving Objective Data Objective Data Vital Signs: Vital Signs Temp Pulse Resp BP 97 F L 66 18 142/59 H 11/25/21 14:21 11/25/21 14:21 11/25/21 14:21 11/25/21 14:21 Weight: 60.781 kg Body Mass Index (BMI) 23.6 Physical Exam Extremity Extremity Narrative: No calf tenderness Diminished pulses Muscle wasting noted Skin Skin Narrative: no purulence, no streaking, no odor. atrophic and hairless skin. fibrous ulcer base with some granulation tissue noted to lateral foot in 2 locations; decreased sizes. no exposed bone. peripheral thin epithelialization noted and continued. Reduced ulcer size noted. dorsal kasia ulcer inflammation with dry skin and erythema (decreased but still present). No petechiae to the dorsal foot noted and this is resolved. No adjacent bogginess or fluctuance or william necrosis. Dry eschar to dorsal fourth toe remains stable now with more fibrous tissue and less eschar Neuro Neuro Narrative: lack of normal epicritic sensation via light touch is consistent with neuropathy status Debridement Note Debridement Note Wound debrided: dorsal fourth toe ,lateral foot Laterality: Left (post debride dorsal 4th toe 4x5x1 mm and post debride 4x5x1 mm and prox lat 4x3x1 mm) Wound Grade/Stage: Type of Debridement: Excisional debridement Anesthesia Used: 4% Lidocaine Solution Depth: in the subcutaneous layer Percentage of wound debrided: 100 Instrument Used: #15 blade Tissue Removed: fibrous, devitalized subcutaneous, biofilm, slough Severity: Fat Layer Exposed Amount of bleeding with debridement: Mild Bleeding Controlled with: Pressure Patient tolerated procedure: Patient tolerated procedure well Post-Debridement Measurements and Additional Note: Post-Debridement Measurements/Treatment - Nurse 1 - General Ulcer Assessment Start: 11/25/21 14:17 Freq: Status: Active Protocol: JV Activity Type Activity Date Activity User E-Sign Co-Sign Detail Recorded Client Recorded Date Recorded By Document 11/25/21 14:21 WA [id number] 11/25/21 14:24 WA 11/25/21 14:21 WC - Today's Visit Information Type of service Follow-up Visit (Physician/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 ) Arrival Mode Ambulatory Accompanied by Patient Identification Verified (Name & Yes ) Finger Stick Blood Sugar(mg/dl) (if 83 indicated): Blood Sugar Stated by Patient Height and Weight Body Mass Index (BMI) 23.6 BMI Classification Normal Vital Signs Temperature (97.8 F-99.1 F) 97 F L Temperature Source Temporal Pulse Rate (60-100) 66 Pulse Location Monitor Respiratory Rate (12-18) 18 Respiratory rate source Observation Blood Pressure (90/60-120/80) 142/59 H Blood Pressure Mean (mm Hg) 86 Source Monitor Position Sitting Blood Pressure Location Left Arm History Since Last Visit- (Skip if this is Patient's initial visit) Has dressing in place as prescribed Yes Has compression in place as prescribed Yes Has offloadiing in place as prescribed Yes Experienced any changes in pain level or Yes management Left Footwear Regular Shoe Right Footwear Regular Shoe Pain Scale: 0-10 Numeric Is Patient Pain Free? Yes - Nurse 1 - General Ulcer Measurement Start: 11/25/21 14:17 Freq: Status: Active Protocol: Activity Type Activity Date Activity User E-Sign Co-Sign Detail Recorded Client Recorded Date Recorded By Document 11/25/21 14:21 WA [id number] 11/25/21 14:24 WA 11/25/21 14:21 Wound Center Nurse 1 3-left 4th toe -Current Size (cm) - Length 0.1 -Current Size (cm) - Width 0.1 -Current Size (cm) - Depth 0.1 -Total Square Cm 0.01 -Epithelialization Large 67-100% -Exudate Amt None Present -Wound Margin Flat & Intact -Granulation Amt Large (67-100%) -Granulation Quality Pale,High [place]mana -Texture (Kasia-wound Skin Appearance) Assessed -Moisture (Kasia-wound Skin Appearance) Assessed -Color (Kasia-wound Skin Appearance) Assessed -Temperature (Kasia-wound Skin No Abnormality Appearance) (Pt Warm) -Tenderness on Palpation (Kasia-wound No Skin Appearance) -Ulcer Cleansing Rinsed/ Irrigated with Saline -Foul Odor after Cleansing No -Anesthetic Used 4% Lidocaine Solution #1- L LATERAL FOOT -Current Size (cm) - Length 0.1 -Current Size (cm) - Width 0.1 -Current Size (cm) - Depth 0.1 -Total Square Cm 0.01 -Epithelialization Large 67-100% -Exudate Amt None Present -Wound Margin Flat & Intact -Granulation Amt Large (67-100%) -Granulation Quality Pale,High [place] -Necrosis Amt Small (1-33%) -Necrotic Tissue Type Adherent Slough -Texture (Kasia-wound Skin Appearance) Assessed,Callus -Moisture (Kasia-wound Skin Appearance) Assessed -Color (Kasia-wound Skin Appearance) Assessed -Temperature (Kasia-wound Skin No Abnormality Appearance) (Pt Warm) -Tenderness on Palpation (Kasia-wound Yes Skin Appearance) -Ulcer Cleansing Soap and Water -Foul Odor after Cleansing No -Anesthetic Used 4% Lidocaine Solution Lower Limb Edema Present NA - Nurse 3 - General Ulcer D/C NN Start: 11/25/21 14:17 Freq: Status: Active Protocol: Activity Type Activity Date Activity User E-Sign Co-Sign Detail Recorded Client Recorded Date Recorded By Document 11/25/21 15:16 WA [id number] 11/25/21 15:17 WA 11/25/21 15:16 Wound Care Nurse 3 3-left 4th toe -Ulcer Cleansing Soap and Water -Primary Dressing Covered/Secured with Dry Gauze & Roll Gauze, Secured with Tape #1- L LATERAL FOOT -Primary Dressing Covered/Secured with Dry Gauze & Roll Gauze, Secured with Tape Pain Scale: 0-10 Numeric Is Patient Pain Free? Yes WC - Visit Discharge Discharge Condition Stable Ambulatory Status Ambulatory Transportation Private Auto Medication Reconcilliation completed & No provided to patient/care provider Clinical Summary of Care Provided 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 (3) Peripheral vascular occlusive disease: CODE(S): I73.9 - Peripheral vascular disease, unspecified (4) Diabetes mellitus with neuropathy: CODE(S): E11.40 - Type 2 diabetes mellitus with diabetic neuropathy, unspecified QUALIFIERS: Diabetes mellitus type: type 2 Diabetes mellitus half-way insulin use: without watermaster use Qualified Code(s): E11.40 - Type 2 diabetes mellitus with diabetic neuropathy, unspecified (5) Osteomyelitis: CODE(S): M86.9 - Osteomyelitis, unspecified QUALIFIERS: Osteomyelitis type: unspecified type Osteomyelitis location: foot Laterality: left Qualified Code(s): M86.9 - Osteomyelitis, unspecified (6) Non-pressure chronic ulcer of other part of left foot with fat layer exposed: CODE(S): L97.522 - Non-pressure chronic ulcer 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 Debridement was performed today as noted. He was advised to change his dressing daily with Santyl applied nickel thickness to the new fourth toe eschar and and hydrogel also to the lateral left foot. To change his daily wash with antibacterial soap and water. To avoid soaking activities. His recent increased improvement is noted. He was previously diagnosed with osteomyelitis and underwent a fifth ray resection of the left foot at [facility] on 02-04-21. The diagnosis was confirmed with pathological acute osteomyelitis. The clearance fragment that was sent to pathology was negative for acute osteomyelitis. The clearance fragment that was sent to microbiology did not demonstrate some E. coli growth. He was discharged home from the hospital on oral Augmentin and Cipro; completed. This issue was resolved and addressed. Previous labs were reviewed. Hemoglobin A1c on 02-05-21 was 7.5%. On 01-27-21 his ESR was 38 and C- reactive protein was 14.5. On 02-06-21 his white blood cell count was 13.4. His current cellulitis work-up information is as follows: He was switched from cephalexin and Bactrim under the management of his primary care physician to cefadroxil. Labs reviewed as WBC 8.9, esr 111, cr 2.49, GFR 27, a1c 8.3%(on 08/18/21). Xrays show fifth ray resection without soft tissue emphysema, osseous destruction , foreign body. Complete course of cefdinir and Flagyl as also recommended by Dr. Balderas, infectious disease specialist. He is clinically demonstrating a good response now with returned erythema. refills will be sent to [facility] for additional week. He was advised to complete antibiotics including for which he has not started the second antibiotic yet. I recommend continued offloading chronic wound site areas with a surgical shoe. To try to keep mostly weight on the heel. I recommend nutritional supplementation optimize healing including Neri nutritional supplement pack daily. It is also noted that his A1c is still elevated which also does not have a good healing outcome. I advised him on continued improved diabetic control. His dermatology recommendations are noted. He is on now betamethasone and cera ve. To follow-up as scheduled. He will return to clinic in 1 week. He has delayed healing however he is making progressive progress with each visit. Note: [employer] speech recognition windows security analyst software was used to create portions of this document. Sound-alike and misspelled words, as well as other windows security analyst errors may be contained in the documentation.
[2021-12-07 13:15] VITALS: BP 138/52; PULSE 64; RESP 16; TEMP 36.4; BMI 23.6
--- NOTE | 2021-12-07 14:08 | PCM.WC.PN ---
History of Present Illness Date of Service: 12/07/21 Chief Complaint: Left foot ulcer History of Wound: This 76-year-old male was seen for left foot ulcer return to the wound healing center today. He had recent lower extremity vascular successful intervention performed with Dr. Bowens. It is noted he has a low ejection fraction and also small vessel disease is suspected. He had a fifth ray resection of the left foot at [facility] on 02/04/2021 for treatment of nonhealing ulcer and osteomyelitis. He has been changing the dressing as advised with darlin. He is with his today. He denies pain today. He recently saw dermatology who started him on betamethasone cream and he was also advised to continue topical CeraVe. His erythema has resolved. He denies odor. Has irritated skin to the dorsal foot. I reviewed his case verbally and upon with black topper, Dr. Correa, this morning would like to try a steroid injection. We also discussed changing his wound care product and dressing. Progress of Wound: Improving Objective Data Objective Data Vital Signs: Vital Signs Temp Pulse Resp BP 97.6 F L 64 16 138/52 H 12/07/21 13:15 12/07/21 13:15 12/07/21 13:15 12/07/21 13:15 Oxygen Delivery Method Room Air Weight: 60.781 kg Body Mass Index (BMI) 23.6 Physical Exam Extremity Extremity Narrative: No calf tenderness Diminished pulses Muscle wasting noted Skin Skin Narrative: no purulence, no streaking, no odor. atrophic and hairless skin. fibrous ulcer base with some granulation tissue noted to lateral foot in 2 locations; decreased sizes. no exposed bone. peripheral thin epithelialization noted and continued. Reduced ulcer size noted. dorsal kasia ulcer inflammation with dry skin and erythema (decreased but still present). No petechiae to the dorsal foot noted and this is resolved. No adjacent bogginess or fluctuance or william necrosis. Dry eschar to dorsal fourth toe remains stable now with more fibrous tissue and less eschar Neuro Neuro Narrative: lack of normal epicritic sensation via light touch is consistent with neuropathy status Debridement Note Debridement Note Wound debrided: Lateral forefoot, dorsal fourth toe of left foot Wound Grade/Stage: 3, 1 Type of Debridement: Excisional debridement Anesthesia Used: 4% Lidocaine Solution Depth: in the subcutaneous layer Percentage of wound debrided: 100 Instrument Used: #15 blade Tissue Removed: fibrous, devitalized subcutaneous, biofilm, slough Severity: Fat Layer Exposed Amount of bleeding with debridement: Mild Bleeding Controlled with: Pressure Patient tolerated procedure: Patient tolerated procedure well Post-Debridement Measurements and Additional Note: Post-Debridement Measurements/Treatment - Nurse 1 - General Ulcer Assessment Start: 11/25/21 14:17 Freq: Status: Active Protocol: ALFREDO.ANAT Activity Type Activity Date Activity User E-Sign Co-Sign Detail Recorded Client Recorded Date Recorded By Document 11/25/21 14:21 DE [id number] 11/25/21 14:24 DE Document 12/07/21 13:15 [facility] [id number] 12/07/21 13:21 [facility] 11/25/21 12/07/21 14:21 13:15 - Today's Visit Information Type of service Follow-up Visit Follow-up Visit (Physician/GROUNDS AND NURSERY SPECIALIST (Physician/GROUNDS AND NURSERY SPECIALIST ) ) Arrival Mode Ambulatory Ambulatory Transfer Assistance None Accompanied by Patient Identification Verified (Name & Yes Yes ) Patient Requires Transmission-Based No Precautions Finger Stick Blood Sugar(mg/dl) (if 83 indicated): Blood Sugar Stated by Patient Height and Weight Body Mass Index (BMI) 23.6 23.6 BMI Classification Normal Normal Vital Signs Temperature (97.8 F-99.1 F) 97 F L 97.6 F L Temperature Source Temporal Temporal Pulse Rate (60-100) 66 64 Pulse Location Monitor Monitor Respiratory Rate (12-18) 18 16 Respiratory rate source Observation Observation Oxygen Delivery Method Room Air Blood Pressure (90/60-120/80) 142/59 H 138/52 H Blood Pressure Mean (mm Hg) 86 80 Source Monitor Monitor Position Sitting Sitting Blood Pressure Location Left Arm Left Arm History Since Last Visit- (Skip if this is Patient's initial visit) Have you changed medications since your No last visit? Any new allergies or adverse reactions No Had a fall/change in ADL's that may No increase risk of falls Signs or symptoms of abuse and/or No neglect since last visit Have you been in the hospital since your No last visit? Has dressing in place as prescribed Yes Yes Has compression in place as prescribed Yes N/A Has offloadiing in place as prescribed Yes Yes Experienced any changes in pain level or Yes No management Left Footwear Regular Shoe Surgical Shoe with pressure relief insole Right Footwear Regular Shoe Surgical Shoe with pressure relief insole Pain Scale: 0-10 Numeric Is Patient Pain Free? Yes Yes WC - Nurse 1 - General Ulcer Measurement Start: 11/25/21 14:17 Freq: Status: Active Protocol: Activity Type Activity Date Activity User E-Sign Co-Sign Detail Recorded Client Recorded Date Recorded By Document 11/25/21 14:21 DE [id number] 11/25/21 14:24 DE Document 12/07/21 13:15 [facility] [id number] 12/07/21 13:21 [facility] 11/25/21 12/07/21 14:21 13:15 Wound Center Nurse 1 3-left 4th toe -Combined with other wound No -Current Size (cm) - Length 0.1 0.6 -Current Size (cm) - Width 0.1 0.7 -Current Size (cm) - Depth 0.1 0.1 -Total Square Cm 0.01 0.42 -Date of Last Picture (Recall this 12/07/21 field) -Photo Taken Yes -Epithelialization Large 67-100% None Present -Tunneling No -Undermining/Tunneling No -Circular Undermining No -Exudate Amt None Present Small -Exudate Type Serous -Wound Margin Flat & Intact Distinct, Outline Attached -Granulation Amt Large (67-100%) None Present (0 %) -Granulation Quality Pale,Espy -Slough/Fibrin Yes -Necrosis Amt Large (67-100%) -Necrotic Tissue Type Adherent Slough -Texture (Kasia-wound Skin Appearance) Assessed Assessed, Scarring -Moisture (Kasia-wound Skin Appearance) Assessed Assessed,Dry/ Scaly -Color (Kasia-wound Skin Appearance) Assessed Assessed, Erythema -Temperature (Kasia-wound Skin No Abnormality No Abnormality Appearance) (Pt Warm) (Pt Warm) -Tenderness on Palpation (Kasia-wound No Yes Skin Appearance) -Ulcer Cleansing Rinsed/ Rinsed/ Irrigated with Irrigated with Saline Saline -Foul Odor after Cleansing No No -Anesthetic Used 4% Lidocaine 5% Lidocaine Solution Gel #1- L LATERAL FOOT -Combined with other wound No -Current Size (cm) - Length 0.1 0.1 -Current Size (cm) - Width 0.1 0.1 -Current Size (cm) - Depth 0.1 0.1 -Total Square Cm 0.01 0.01 -Date of Last Picture (Recall this 12/07/21 field) -Photo Taken Yes -Epithelialization Large 67-100% Large 67-100% -Tunneling No -Undermining/Tunneling No -Circular Undermining No -Exudate Amt None Present None Present -Wound Margin Flat & Intact -Granulation Amt Large (67-100%) -Granulation Quality Pale,Espy -Necrosis Amt Small (1-33%) -Necrotic Tissue Type Adherent Slough -Texture (Kasia-wound Skin Appearance) Assessed,Callus Assessed, Scarring,Rash -Moisture (Kasia-wound Skin Appearance) Assessed Assessed,Dry/ Scaly -Color (Kasia-wound Skin Appearance) Assessed Assessed, Erythema -Temperature (Kasia-wound Skin No Abnormality No Abnormality Appearance) (Pt Warm) (Pt Warm) -Tenderness on Palpation (Kasia-wound Yes No Skin Appearance) -Ulcer Cleansing Soap and Water Rinsed/ Irrigated with Saline -Foul Odor after Cleansing No No -Anesthetic Used 4% Lidocaine 5% Lidocaine Solution Gel Lower Limb Edema Present NA WC - Nurse 2 - General Ulcer CM Notes Start: 11/25/21 14:17 Freq: Status: Active Protocol: Activity Type Activity Date Activity User E-Sign Co-Sign Detail Recorded Client Recorded Date Recorded By Document 11/25/21 15:19 PL [id number] 11/26/21 15:21 PL Document 12/07/21 13:31 [id number] 12/07/21 13:34 11/25/21 12/07/21 15:19 13:31 Wound Center Nurse 2 3-left 4th toe -Time 15:03 13:31 -Correct Patient Yes Yes -Correct Side, Site, Position Yes Yes -Correct Procedure Yes Yes -Procedure Performed Yes Yes -Type of Procedure Debridement Debridement -Clinical Debridement Subcutaneous Subcutaneous -Tissue Removed Subcutaneous Subcutaneous -Post Debridement (cm) - Length 0.1 0.8 -Post Debridement (cm) - Width 0.1 0.8 -Post Debridement (cm) - Depth 0.1 0.2 -Total Square (Post) (cm) 0.01 0.64 -Area of Debridement (cm) - Length 0.1 0.8 -Area of Debridement (cm) - Width 0.1 0.8 -Total Square (Area) (cm) 0.01 0.64 -Tunneling No No -Undermining/Tunneling No No -Circular Undermining No No -Wound/Ulcer Outcome Not Healed Not Healed -Ulcer Cleansing Rinsed/ Rinsed/ Irrigated with Irrigated with Saline Saline -Foul Odor after Cleansing No No -Bioengineered Tissue No No -Bleeding Controlled with Pressure Pressure -Offloading Yes -Type of Offloading Surgical Shoe -Treatment Response Procedure Procedure Tolerated Well Tolerated Well -Debridement - Subq, 1st 20sq cm No No #1- L LATERAL FOOT -Time 15:03 13:31 -Correct Patient Yes Yes -Correct Side, Site, Position Yes Yes -Correct Procedure Yes Yes -Procedure Performed Yes Yes -Type of Procedure Debridement Debridement -Clinical Debridement Subcutaneous Subcutaneous -Tissue Removed Subcutaneous Subcutaneous -Post Debridement (cm) - Length 0.1 0.2 -Post Debridement (cm) - Width 0.1 0.1 -Post Debridement (cm) - Depth 0.1 0.1 -Total Square (Post) (cm) 0.01 0.02 -Area of Debridement (cm) - Length 0.1 0.2 -Area of Debridement (cm) - Width 0.1 0.1 -Total Square (Area) (cm) 0.01 0.02 -Tunneling No No -Undermining/Tunneling No No -Circular Undermining No No -Wound/Ulcer Outcome Not Healed Not Healed -Ulcer Cleansing Rinsed/ Irrigated with Saline -Foul Odor after Cleansing No -Bioengineered Tissue No No -Bleeding Controlled with Pressure Pressure -Offloading Yes -Type of Offloading Surgical Shoe -Treatment Response Procedure Procedure Tolerated Well Tolerated Well -Debridement - Subq, 1st 20sq cm Yes Yes Pain Scale: 0-10 Numeric Is Patient Pain Free? Yes Yes WC - Nurse 3 - General Ulcer D/C NN Start: 11/25/21 14:17 Freq: Status: Active Protocol: Activity Type Activity Date Activity User E-Sign Co-Sign Detail Recorded Client Recorded Date Recorded By Document 11/25/21 15:16 DE [id number] 11/25/21 15:17 DE Document 12/07/21 13:43 [facility] [id number] 12/07/21 13:44 [facility] 11/25/21 12/07/21 15:16 13:43 Wound Care Nurse 3 3-left 4th toe -Ulcer Cleansing Soap and Water Rinsed/ Irrigated with Saline -Foul Odor after Cleansing No -Primary Dressing Applied C Hydrogel ($) -Primary Dressing Covered/Secured with Dry Gauze & Dry Gauze & Roll Gauze, Roll Gauze, Secured with Secured with Tape Tape #1- L LATERAL FOOT -Ulcer Cleansing Rinsed/ Irrigated with Saline -Foul Odor after Cleansing No -Primary Dressing Applied Other -Other Dressing hydrogel -Primary Dressing Covered/Secured with Dry Gauze & Dry Gauze & Roll Gauze, Roll Gauze, Secured with Secured with Tape Tape Treatment Response Procedure Tolerated Well Pain Scale: 0-10 Numeric Is Patient Pain Free? Yes Yes WC - Visit Discharge Discharge Condition Stable Stable Ambulatory Status Ambulatory Ambulatory Transportation Private Auto Private Auto Accompanied by Medication Reconcilliation completed & No provided to patient/care provider Clinical Summary of Care Provided 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 (3) Peripheral vascular occlusive disease: CODE(S): I73.9 - Peripheral vascular disease, unspecified (4) Diabetes mellitus with neuropathy: CODE(S): E11.40 - Type 2 diabetes mellitus with diabetic neuropathy, unspecified QUALIFIERS: Diabetes mellitus type: type 2 Diabetes mellitus shelter insulin use: without petroleum terminal plant operator use Qualified Code(s): E11.40 - Type 2 diabetes mellitus with diabetic neuropathy, unspecified (5) Osteomyelitis: CODE(S): M86.9 - Osteomyelitis, unspecified QUALIFIERS: Osteomyelitis type: unspecified type Osteomyelitis location: foot Laterality: left Qualified Code(s): M86.9 - Osteomyelitis, unspecified (6) Eschar of foot: CODE(S): R23.4 - Changes in skin texture (7) Xerosis cutis: CODE(S): L85.3 - Xerosis cutis (8) Dermatitis of left foot: CODE(S): L30.9 - Dermatitis, unspecified PLAN: I reviewed and discussed his plan. Debridement was performed today as noted. He was advised to change his dressing daily with hydrogel (changed from Santyl). To change his daily wash with antibacterial soap and water. To avoid soaking activities. His recent increased improvement is noted. He was previously diagnosed with osteomyelitis and underwent a fifth ray resection of the left foot at [facility] on 02-04-21. The diagnosis was confirmed with pathological acute osteomyelitis. The clearance fragment that was sent to pathology was negative for acute osteomyelitis. The clearance fragment that was sent to microbiology did not demonstrate some E. coli growth. He was discharged home from the hospital on oral Augmentin and Cipro; completed. This issue was resolved and addressed. Previous labs were reviewed. Hemoglobin A1c on 02-05-21 was 7.5%. On 01-27-21 his ESR was 38 and C-reactive protein was 14.5. On 02-06-21 his white blood cell count was 13.4. His current cellulitis work-up information is as follows: He was switched from cephalexin and Bactrim under the management of his primary care physician to cefadroxil. Labs reviewed as WBC 8.9, esr 111, cr 2.49, GFR 27, a1c 8.3%(on 08/18/21). Xrays show fifth ray resection without soft tissue emphysema, osseous destruction , foreign body. Complete course of cefdinir and Flagyl as also recommended by Dr. Balderas, infectious disease specialist. He is clinically demonstrating a good response now with returned erythema. ref[facility]. He was advised to complete antibiotics including for which he has not started the second antibiotic yet. To wear white cotton socks and to avoid socks with color dyes. I recommend application of the cotton sock prior to use of Tubigrip which is recommended for local edema. I do not recommend more aggressive edema management due to his peripheral vascular disease status. To have a dermatitis in his tried both topical triamcinolone and betamethasone. He also tried to moisturize with CeraVe a to the management of black topper, Dr. Correa. Reviewed the case with him this morning and the patient will change wound care product. I also recommend discontinuation of wrapping a rolled gauze around the entire foot. Instead, he will simply cover the wound with a square piece of gauze and use paper tape. A steroid injection will also be provided and we discussed the benefits and risks associated with this. I recommend continued offloading chronic wound site areas with a surgical shoe. To try to keep mostly weight on the heel. I recommend nutritional supplementation optimize healing including Neri nutritional supplement pack daily. It is also noted that his A1c is still elevated which also does not have a good healing outcome. I advised him on continued improved diabetic control. He will return to clinic in 1 week. He has delayed healing however he is making progressive progress with each visit. Note: [employer] speech recognition combatant diver officer software was used to create portions of this document. Sound-alike and misspelled words, as well as other combatant diver officer errors may be contained in the documentation. The medical decision making level is limited based on data including the review of prior external notes, review of a prior test, or ordering a test. The medical decision making level is low. There is noted low risk of morbidity after considering this treatment plan and diagnostic data. Even
== END 2021-12-12 23:59 ==
LOC: WC 13:00
PROVIDERS: PCP Nurse Practitioner Family; Referring Provider Family Medicine; Visit Provider Podiatrist
DX: E11.621 Type 2 diabetes mellitus with foot ulcer (principal); E11.51 Type 2 diabetes mellitus with diabetic peripheral angiopathy without gangrene; L97.522 Non-pressure chronic ulcer of other part of left foot with fat layer exposed; M86.8X7 Other osteomyelitis, ankle and foot; E11.69 Type 2 diabetes mellitus with other specified complication; E11.40 Type 2 diabetes mellitus with diabetic neuropathy, unspecified; L03.116 Cellulitis of left lower limb; L85.3 Xerosis cutis; R23.4 Changes in skin texture
CPT/HCPCS: 11042

== ENCOUNTER 2021-12-14 10:46 | Outpatient (CLI) | payer MEDICARE, SELFPAY ==
[2021-12-14 12:18] LABS: Anion Gap 7 (5-15); BUN 30 mg/dL (7-18); BUN/Creat Ratio 12.8 RATIO (10-20); Calcium,Total 9.7 mg/dL (8.5-10.1); Chloride 104 mmol/L (98-107); Creatinine, Serum 2.35 mg/dL (0.70-1.30); EST Glomerular Filtration Rate 29 mL/min (>60); Est Glom Filt Rate - Afr Amer 35 mL/min (>60); Glucose 300 mg/dL (74-106); Potassium 4.1 mmol/L (3.5-5.1); Sodium Level 136 mmol/L (136-145)
[2021-12-14 12:22] LABS: Hemoglobin A1c 7.5 % (3.8-5.6)
== END 2021-12-14 23:59 | disposition home or self-care (01) ==
LOC: MFPLAB 10:47
PROVIDERS: PCP Nurse Practitioner Family; Referring Provider Nurse Practitioner Family; Visit Provider Nurse Practitioner Family
DX: E11.40 Type 2 diabetes mellitus with diabetic neuropathy, unspecified (principal)
CPT/HCPCS: 36415; 80048; 83036

== ENCOUNTER 2022-01-03 09:53 | Outpatient (CLI) | payer MEDICARE, SELFPAY ==
[2022-01-03 11:15] LABS: AST(SGOT) 13 U/L (15-37); Alanine Aminotransfer ALT/SGPT 24 U/L (16-61); Albumin, Serum 3.5 g/dL (3.2-5.0); Alkaline Phosphatase 106 U/L (45-117); Bilirubin, Direct 0.32 mg/dL (0.00-0.30); Cholesterol 160 mg/dL (200); Globulin 4.1 g/dL (2.2-4.2); High Density Lipoprotein 42 mg/dL; Protein, Total 7.6 g/dL (6.4-8.2); Triglycerides 134 mg/dL; Very Low Density Lipoprotein 27 mg/dL (5-40)
== END 2022-01-03 23:59 | disposition home or self-care (01) ==
PROVIDERS: PCP Nurse Practitioner Family; Referring Provider Physician Assistant Medical; Visit Provider Physician Assistant Medical
DX: E78.5 Hyperlipidemia, unspecified (principal)
CPT/HCPCS: 36415; 80061; 80076

== ENCOUNTER 2022-01-11 13:15 | Outpatient (RCR) | payer MEDICARE, SELFPAY ==
[2021-12-13 00:27] VITALS: BP 138/52; PULSE 64; RESP 16; TEMP 36.4; BMI 23.6
[2021-12-21 13:22] VITALS: BP 134/62; PULSE 71; RESP 16; BMI 23.6
--- NOTE | 2021-12-21 15:37 | PCM.WC.PN ---
History of Present Illness Date of Service: 12/21/21 Chief Complaint: Left foot ulcer History of Wound: This 76-year-old male was seen for left foot ulcer return to the wound healing center today. He had recent lower extremity vascular successful intervention performed with Dr. Bowens. It is noted he has a low ejection fraction and also small vessel disease is suspected. He had a fifth ray resection of the left foot at [facility] on 02/04/2021 for treatment of nonhealing ulcer and osteomyelitis. He has been changing the dressing as advised with darlin. He is with his today. He denies pain today. He recently saw dermatology who started him on betamethasone cream and he was also advised to continue topical CeraVe. His erythema has resolved. He denies odor. Has irritated skin to the dorsal foot. During his follow-up with dermatology, he had a steroid injection last week and reports his skin irritation is significantly improved. He has also discontinued wrapping Kerlix circumferentially around the foot and ankle. Progress of Wound: Improving Objective Data Objective Data Vital Signs: Vital Signs Temp Pulse Resp BP 97.6 F L 71 16 134/62 H 12/13/21 00:27 12/21/21 13:22 12/21/21 13:22 12/21/21 13:22 Oxygen Delivery Method Room Air Weight: 60.781 kg Body Mass Index (BMI) 23.6 Physical Exam Extremity Extremity Narrative: No calf tenderness Diminished pulses Muscle wasting noted Skin Skin Narrative: no purulence, no streaking, no odor. atrophic and hairless skin. fibrous ulcer base with some granulation tissue noted to lateral foot in 2 locations; decreased sizes. no exposed bone. peripheral thin epithelialization noted and continued. Reduced ulcer size noted. dorsal kasia ulcer inflammation with dry skin and erythema (decreased but still present). No petechiae to the dorsal foot noted and this is resolved. No adjacent bogginess or fluctuance or william necrosis. Prior dry eschar is now moist fibrous tissue to dorsal fourth toe adjacent to the nail bed Neuro Neuro Narrative: lack of normal epicritic sensation via light touch is consistent with neuropathy status Debridement Note Debridement Note Wound debrided: left lateral foot x 2, left fourth toe Wound Grade/Stage: 3, 1 Type of Debridement: Excisional debridement Anesthesia Used: 4% Lidocaine Solution Depth: in the subcutaneous layer Percentage of wound debrided: 100 Instrument Used: #15 blade Tissue Removed: fibrous, devitalized subcutaneous, biofilm, slough Severity: Fat Layer Exposed Amount of bleeding with debridement: Mild Bleeding Controlled with: Pressure Patient tolerated procedure: Patient tolerated procedure well Post-Debridement Measurements and Additional Note: Post-Debridement Measurements/Treatment [facility] Nurse 1 - General Ulcer Assessment Start: 12/21/21 13:22 Freq: Status: Active Protocol: JV Activity Type Activity Date Activity User E-Sign Co-Sign Detail Recorded Client Recorded Date Recorded By Document 12/21/21 13:22 [facility] [id number] 12/21/21 13:28 [facility] 12/21/21 13:22 WC - Today's Visit Information Type of service Follow-up Visit (Physician/PARI M[employer]EL [employer] ) Arrival Mode Ambulatory Transfer Assistance None Accompanied by Patient Identification Verified (Name & Yes ) Height and Weight Body Mass Index (BMI) 23.6 BMI Classification Normal Vital Signs Pulse Rate (60-100) 71 Pulse Location Monitor Respiratory Rate (12-18) 16 Respiratory rate source Observation Oxygen Delivery Method Room Air Blood Pressure (90/60-120/80) 134/62 H Blood Pressure Mean (mm Hg) 86 Source Monitor Position Sitting Blood Pressure Location Left Arm History Since Last Visit- (Skip if this is Patient's initial visit) Have you changed medications since your No last visit? Any new allergies or adverse reactions No Had a fall/change in ADL's that may No increase risk of falls Signs or symptoms of abuse and/or No neglect since last visit Have you been in the hospital since your No last visit? Has dressing in place as prescribed Yes Has compression in place as prescribed N/A Has offloadiing in place as prescribed N/A Experienced any changes in pain level or No management Left Footwear Surgical Shoe with pressure relief insole Right Footwear Regular Shoe Pain Scale: 0-10 Numeric Is Patient Pain Free? Yes [facility] Nurse 1 - General Ulcer Measurement Start: 12/21/21 13:22 Freq: Status: Active Protocol: Activity Type Activity Date Activity User E-Sign Co-Sign Detail Recorded Client Recorded Date Recorded By Document 12/21/21 13:22 [facility] [id number] 12/21/21 13:28 [facility] 12/21/21 13:22 Wound Center Nurse 1 3-left 4th toe -Combined with other wound No -Current Size (cm) - Length 0.8 -Current Size (cm) - Width 0.8 -Current Size (cm) - Depth 0.1 -Total Square Cm 0.64 -Photo Taken No -Epithelialization None Present -Tunneling No -Undermining/Tunneling No -Circular Undermining No -Exudate Amt None Present -Wound Margin Distinct, Outline Attached -Granulation Amt None Present (0 %) -Slough/Fibrin Yes -Necrosis Amt Large (67-100%) -Necrotic Tissue Type Adherent Slough -Texture (Kasia-wound Skin Appearance) Assessed, Scarring -Moisture (Kasia-wound Skin Appearance) Assessed,Dry/ Scaly -Color (Kasia-wound Skin Appearance) Assessed -Temperature (Kasia-wound Skin No Abnormality Appearance) (Pt Warm) -Tenderness on Palpation (Kasia-wound Yes Skin Appearance) -Ulcer Cleansing Rinsed/ Irrigated with Saline -Foul Odor after Cleansing No -Anesthetic Used 5% Lidocaine Gel #1- L LATERAL FOOT -Combined with other wound No -Current Size (cm) - Length 0.1 -Current Size (cm) - Width 0.1 -Current Size (cm) - Depth 0.1 -Total Square Cm 0.01 -Photo Taken No -Epithelialization Large 67-100% -Exudate Amt None Present -Texture (Kasia-wound Skin Appearance) Assessed, Scarring -Moisture (Kasia-wound Skin Appearance) Assessed,Dry/ Scaly -Color (Kasia-wound Skin Appearance) Assessed, Erythema -Temperature (Kasia-wound Skin No Abnormality Appearance) (Pt Warm) -Tenderness on Palpation (Kasia-wound Yes Skin Appearance) -Ulcer Cleansing Rinsed/ Irrigated with Saline -Foul Odor after Cleansing No -Anesthetic Used 5% Lidocaine Gel WC - Nurse 2 - General Ulcer CM Notes Start: 12/21/21 13:22 Freq: Status: Active Protocol: Activity Type Activity Date Activity User E-Sign Co-Sign Detail Recorded Client Recorded Date Recorded By Document 12/21/21 13:51 MICHA [id number] 12/21/21 13:56 MICHA 12/21/21 13:51 Wound Center Nurse 2 4-right lateral mid foot -Time 13:54 -Correct Patient Yes -Correct Side, Site, Position Yes -Correct Procedure Yes -Procedure Performed Yes -Type of Procedure Debridement -Clinical Debridement Subcutaneous -Tissue Removed Subcutaneous -Post Debridement (cm) - Length 0.5 -Post Debridement (cm) - Width 0.3 -Post Debridement (cm) - Depth 0.2 -Total Square (Post) (cm) 0.15 -Area of Debridement (cm) - Length 0.5 -Area of Debridement (cm) - Width 0.3 -Total Square (Area) (cm) 0.15 -Tunneling No -Undermining/Tunneling No -Circular Undermining No -Wound/Ulcer Outcome Not Healed -Ulcer Cleansing Rinsed/ Irrigated with Saline -Foul Odor after Cleansing No -Bioengineered Tissue No -Bleeding Controlled with Pressure -Offloading Yes -Type of Offloading Surgical Shoe -Treatment Response Procedure Tolerated Well -Debridement - Subq, 1st 20sq cm Yes 3-left 4th toe -Time 13:51 -Correct Patient Yes -Correct Side, Site, Position Yes -Correct Procedure Yes -Procedure Performed Yes -Type of Procedure Debridement -Clinical Debridement Subcutaneous -Tissue Removed Subcutaneous -Post Debridement (cm) - Length 0.8 -Post Debridement (cm) - Width 0.6 -Post Debridement (cm) - Depth 0.1 -Total Square (Post) (cm) 0.48 -Area of Debridement (cm) - Length 0.8 -Area of Debridement (cm) - Width 0.6 -Total Square (Area) (cm) 0.48 -Tunneling No -Undermining/Tunneling No -Circular Undermining No -Wound/Ulcer Outcome Not Healed -Ulcer Cleansing Rinsed/ Irrigated with Saline -Foul Odor after Cleansing No -Bioengineered Tissue No -Bleeding Controlled with Pressure -Offloading Yes -Type of Offloading Surgical Shoe -Treatment Response Procedure Tolerated Well -Debridement - Subq, 1st 20sq cm No #1- L LATERAL FOOT -Time 13:51 -Correct Patient Yes -Correct Side, Site, Position Yes -Correct Procedure Yes -Procedure Performed Yes -Type of Procedure Debridement -Clinical Debridement Subcutaneous -Tissue Removed Subcutaneous -Post Debridement (cm) - Length 0.4 -Post Debridement (cm) - Width 0.3 -Post Debridement (cm) - Depth 0.2 -Total Square (Post) (cm) 0.12 -Area of Debridement (cm) - Length 0.4 -Area of Debridement (cm) - Width 0.3 -Total Square (Area) (cm) 0.12 -Tunneling No -Undermining/Tunneling No -Circular Undermining No -Wound/Ulcer Outcome Not Healed -Ulcer Cleansing Rinsed/ Irrigated with Saline -Foul Odor after Cleansing No -Bioengineered Tissue No -Bleeding Controlled with Pressure -Offloading Yes -Type of Offloading Surgical Shoe -Treatment Response Procedure Tolerated Well -Debridement - Subq, 1st 20sq cm No Pain Scale: 0-10 Numeric Is Patient Pain Free? No WC - Nurse 3 - General Ulcer D/C NN Start: 12/21/21 13:22 Freq: Status: Active Protocol: Activity Type Activity Date Activity User E-Sign Co-Sign Detail Recorded Client Recorded Date Recorded By Document 12/21/21 14:13 RB [id number] 12/21/21 14:14 RB 12/21/21 14:13 Wound Care Nurse 3 4-right lateral mid foot -Other Dressing HYDROGEL -Primary Dressing Covered/Secured with Dry Gauze & Roll Gauze, Secured with Tape 3-left 4th toe -Other Dressing HYDROGEL -Primary Dressing Covered/Secured with Dry Gauze & Roll Gauze, Secured with Tape #1- L LATERAL FOOT -Other Dressing HYDROGEL -Primary Dressing Covered/Secured with Dry Gauze & Roll Gauze, Secured with Tape Treatment Response Procedure Tolerated Well Pain Scale: 0-10 Numeric Is Patient Pain Free? Yes WC - Visit Discharge Discharge Condition Stable Ambulatory Status Ambulatory Transportation Private Auto Medication Reconcilliation completed & No provided to patient/care provider Clinical Summary of Care Provided 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 (3) Peripheral vascular occlusive disease: CODE(S): I73.9 - Peripheral vascular disease, unspecified (4) Diabetes mellitus with neuropathy: CODE(S): E11.40 - Type 2 diabetes mellitus with diabetic neuropathy, unspecified QUALIFIERS: Diabetes mellitus terminal block assembler insulin use: without long-term use Diabetes mellitus type: type 2 Qualified Code(s): E11.40 - Type 2 diabetes mellitus with diabetic neuropathy, unspecified (5) Osteomyelitis: CODE(S): M86.9 - Osteomyelitis, unspecified QUALIFIERS: Laterality: left Osteomyelitis location: foot Osteomyelitis type: unspecified type Qualified Code(s): M86.9 - Osteomyelitis, unspecified (6) Eschar of foot: CODE(S): R23.4 - Changes in skin texture (7) Xerosis cutis: CODE(S): L85.3 - Xerosis cutis (8) Dermatitis of left foot: CODE(S): L30.9 - Dermatitis, unspecified PLAN: I reviewed and discussed his plan. Debridement was performed today as noted. He was advised to change his dressing daily with hydrogel (changed from Santyl). To change his daily wash with antibacterial soap and water. To avoid soaking activities. His recent increased improvement is noted. He was previously diagnosed with osteomyelitis and underwent a fifth ray resection of the left foot at [facility] on 02-04-21. The diagnosis was confirmed with pathological acute osteomyelitis. The clearance fragment that was sent to pathology was negative for acute osteomyelitis. The clearance fragment that was sent to microbiology did not demonstrate some E. coli growth. He was discharged home from the hospital on oral Augmentin and Cipro; completed. This issue was resolved and addressed. Previous labs were reviewed. Hemoglobin A1c on 02-05-21 was 7.5%. On 01-27-21 his ESR was 38 and C-reactive protein was 14.5. On 02-06-21 his white blood cell count was 13.4. His current cellulitis work-up information is as follows: He was switched from cephalexin and Bactrim under the management of his primary care physician to cefadroxil. Labs reviewed as WBC 8.9, esr 111, cr 2.49, GFR 27, a1c 8.3%(on 08/18/21). Xrays show fifth ray resection without soft tissue emphysema, osseous destruction , foreign body. Complete course of cefdinir and Flagyl as also recommended by Dr. Balderas, infectious disease specialist. This was completed and he is doing well. To wear white cotton socks and to avoid socks with color dyes. I recommend application of the cotton sock prior to use of Tubigrip which is recommended for local edema. I do not recommend more aggressive edema management due to his peripheral vascular disease status. To have a dermatitis in his tried both topical triamcinolone and betamethasone. He also tried to moisturize with CeraVe a to the management of crochet machine operator, Dr. Correa. It is noted he proceeded with the discontinuation of wrapping a rolled gauze around the entire foot. Instead, he has covered the wound with a square piece of gauze and use paper tape. A steroid injection was also provided by crochet machine operator last week. I recommend continued offloading chronic wound site areas with a surgical shoe. To try to keep mostly weight on the heel. I recommend nutritional supplementation optimize healing including Neri nutritional supplement pack daily. It is also noted that his A1c is still elevated which also does not have a good healing outcome. I advised him on continued improved diabetic control. He will return to clinic in 1 week. He has delayed healing however he is making progressive progress with each visit. Note: [employer] speech recognition substation electrician software was used to create portions of this document. Sound-alike and misspelled words, as well as other substation electrician errors may be contained in the documentation. The medical decision making level is limited based on data including the review of prior external notes, review of a prior test, or ordering a test. The problems addressed require a low medical decision making level which includes two or more minor problems, a stable chronic illness, or an acute uncomplicated illness or injury.
[2022-01-11 13:18] VITALS: BP 108/50; PULSE 70; RESP 16; TEMP 35.9; BMI 23.6
--- NOTE | 2022-01-11 15:46 | PN.PCM_ITS ---
History of Present Illness Date of Service: 01/11/22 Chief Complaint: Left foot ulcer History of Wound: This 76-year-old male was seen for left foot ulcer return to the wound healing center today. He had recent lower extremity vascular successful intervention performed with Dr. Bowens. It is noted he has a low ejection fraction and also small vessel disease is suspected. He had a fifth ray resection of the left foot at [facility] on 02/04/2021 for treatment of nonhealing ulcer and osteomyelitis. He has been changing the dressing as advised with darlin. He is with his today. He denies pain today. His erythema has resolved. He denies odor. Has irritated skin to the dorsal foot has resolved. During his follow-up with dermatology, he had a steroid injection last month, and reports his skin irritation is significantly improved. He is with his today. Progress of Wound: Improving Objective Data Objective Data Vital Signs: Vital Signs Temp Pulse Resp BP 96.6 F L 70 16 108/50 L 01/11/22 13:18 01/11/22 13:18 01/11/22 13:18 01/11/22 13:18 Oxygen Delivery Method Room Air Weight: 60.781 kg Body Mass Index (BMI) 23.6 Physical Exam Extremity Extremity Narrative: No calf tenderness Diminished pulses Muscle wasting noted Skin Skin Narrative: no purulence, no streaking, no odor. atrophic and hairless skin. fibrous ulcer base with some granulation tissue noted to lateral foot in 2 locations; decreased sizes. no exposed bone. peripheral thin epithelialization noted and continued. Reduced ulcer size noted. dorsal kasia ulcer inflammation with dry skin and erythema (decreased but still present). No petechiae to the dorsal foot noted and this is resolved. No adjacent bogginess or fluctuance or william necrosis. Prior dry eschar is now moist fibrous tissue to dorsal fourth toe adjacent to the nail bed Neuro Neuro Narrative: lack of normal epicritic sensation via light touch is consistent with neuropathy status Debridement Note Debridement Note Wound debrided: lateral left foot x 2, left fourth toe Wound Grade/Stage: 3,1 Type of Debridement: Excisional debridement Anesthesia Used: 4% Lidocaine Solution Depth: in the subcutaneous layer Percentage of wound debrided: 100 Instrument Used: #15 blade Tissue Removed: fibrous, devitalized subcutaneous, biofilm, slough Severity: Fat Layer Exposed Amount of bleeding with debridement: Mild Bleeding Controlled with: Pressure Patient tolerated procedure: Patient tolerated procedure well Post-Debridement Measurements and Additional Note: Post-Debridement Measurements/Treatment - Nurse 1 - General Ulcer Assessment Start: 12/21/21 13:22 Freq: Status: Active Protocol: JV Activity Type Activity Date Activity User E-Sign Co-Sign Detail Recorded Client Recorded Date Recorded By Document 12/21/21 13:22 [facility] [id number] 12/21/21 13:28 BM Document 01/11/22 13:18 [facility] [id number] 01/11/22 13:22 BMF 12/21/21 01/11/22 13:22 13:18 WC - Today's Visit Information Type of service Follow-up Visit Follow-up Visit (Physician/PATIENT TRANSPORTATION DRIVER (Physician/PATIENT TRANSPORTATION DRIVER ) ) Arrival Mode Ambulatory Ambulatory Transfer Assistance None None Accompanied by Patient Identification Verified (Name & Yes Yes ) Patient Requires Transmission-Based No Precautions Height and Weight Body Mass Index (BMI) 23.6 23.6 BMI Classification Normal Normal Temperature (97.8 F-99.1 F) 96.6 F L Temperature Source Temporal Vital Signs Pulse Rate (60-100) 71 70 Pulse Location Monitor Monitor Respiratory Rate (12-18) 16 16 Respiratory rate source Observation Observation Oxygen Delivery Method Room Air Room Air Blood Pressure (90/60-120/80) 134/62 H 108/50 L Blood Pressure Mean (mm Hg) 86 69 Source Monitor Monitor Position Sitting Sitting Blood Pressure Location Left Arm Left Arm History Since Last Visit- (Skip if this is Patient's initial visit) Have you changed medications since your No No last visit? Any new allergies or adverse reactions No No Had a fall/change in ADL's that may No No increase risk of falls Signs or symptoms of abuse and/or No No neglect since last visit Have you been in the hospital since your No last visit? Has dressing in place as prescribed Yes Yes Has compression in place as prescribed N/A N/A Has offloadiing in place as prescribed N/A Yes Experienced any changes in pain level or No No management Left Footwear Surgical Shoe Surgical Shoe with pressure with pressure relief insole relief insole Right Footwear Regular Shoe Regular Shoe Pain Scale: 0-10 Numeric Is Patient Pain Free? Yes Yes - Nurse 1 - General Ulcer Measurement Start: 12/21/21 13:22 Freq: Status: Active Protocol: Activity Type Activity Date Activity User E-Sign Co-Sign Detail Recorded Client Recorded Date Recorded By Document 12/21/21 13:22 [facility] [id number] 12/21/21 13:28 BM Document 01/11/22 13:18 [facility] [id number] 01/11/22 13:22 BMF 12/21/21 01/11/22 13:22 13:18 Wound Center Nurse 1 4-left lateral mid foot -Combined with other wound No -Current Size (cm) - Length 0.1 -Current Size (cm) - Width 0.1 -Current Size (cm) - Depth 0.1 -Total Square Cm 0.01 -Date of Last Picture (Recall this 01/11/22 field) -Photo Taken Yes -Epithelialization Large 67-100% -Ulcer Cleansing Rinsed/ Irrigated with Saline -Foul Odor after Cleansing No -Anesthetic Used 5% Lidocaine Gel 3-left 4th toe -Combined with other wound No No -Current Size (cm) - Length 0.8 0.6 -Current Size (cm) - Width 0.8 1.2 -Current Size (cm) - Depth 0.1 0.1 -Total Square Cm 0.64 0.72 -Date of Last Picture (Recall this 01/11/22 field) -Photo Taken No Yes -Epithelialization None Present None Present -Tunneling No No -Undermining/Tunneling No No -Circular Undermining No No -Exudate Amt None Present Small -Exudate Type Serosanguineous -Wound Margin Distinct, Distinct, Outline Outline Attached Attached -Granulation Amt None Present (0 None Present (0 %) %) -Slough/Fibrin Yes Yes -Necrosis Amt Large (67-100%) Large (67-100%) -Necrotic Tissue Type Adherent Slough Adherent Slough -Texture (Kasia-wound Skin Appearance) Assessed, Assessed, Scarring Scarring -Moisture (Kasia-wound Skin Appearance) Assessed,Dry/ Assessed Scaly -Color (Kasia-wound Skin Appearance) Assessed Assessed, Erythema -Temperature (Kasia-wound Skin No Abnormality No Abnormality Appearance) (Pt Warm) (Pt Warm) -Tenderness on Palpation (Kasia-wound Yes No Skin Appearance) -Ulcer Cleansing Rinsed/ Rinsed/ Irrigated with Irrigated with Saline Saline -Foul Odor after Cleansing No No -Anesthetic Used 5% Lidocaine 5% Lidocaine Gel Gel #1- L LATERAL FOOT -Combined with other wound No No -Current Size (cm) - Length 0.1 0.1 -Current Size (cm) - Width 0.1 0.1 -Current Size (cm) - Depth 0.1 0.1 -Total Square Cm 0.01 0.01 -Date of Last Picture (Recall this 01/11/22 field) -Photo Taken No Yes -Epithelialization Large 67-100% Large 67-100% -Exudate Amt None Present -Texture (Kasia-wound Skin Appearance) Assessed, Scarring -Moisture (Kasia-wound Skin Appearance) Assessed,Dry/ Scaly -Color (Kasia-wound Skin Appearance) Assessed, Erythema -Temperature (Kasia-wound Skin No Abnormality No Abnormality Appearance) (Pt Warm) (Pt Warm) -Tenderness on Palpation (Kasia-wound Yes No Skin Appearance) -Ulcer Cleansing Rinsed/ Rinsed/ Irrigated with Irrigated with Saline Saline -Foul Odor after Cleansing No No -Anesthetic Used 5% Lidocaine 5% Lidocaine Gel Gel WC - Nurse 2 - General Ulcer CM Notes Start: 12/21/21 13:22 Freq: Status: Active Protocol: Activity Type Activity Date Activity User E-Sign Co-Sign Detail Recorded Client Recorded Date Recorded By Document 12/21/21 13:51 [id number] 12/21/21 13:56 Document 01/11/22 13:42 [id number] 01/11/22 13:47 12/21/21 01/11/22 13:51 13:42 Wound Center Nurse 2 4-left lateral mid foot -Time 13:54 13:43 -Correct Patient Yes Yes -Correct Side, Site, Position Yes Yes -Correct Procedure Yes Yes -Procedure Performed Yes Yes -Type of Procedure Debridement Debridement -Clinical Debridement Subcutaneous Subcutaneous -Tissue Removed Subcutaneous Subcutaneous -Post Debridement (cm) - Length 0.5 0.4 -Post Debridement (cm) - Width 0.3 0.3 -Post Debridement (cm) - Depth 0.2 0.2 -Total Square (Post) (cm) 0.15 0.12 -Area of Debridement (cm) - Length 0.5 0.4 -Area of Debridement (cm) - Width 0.3 0.3 -Total Square (Area) (cm) 0.15 0.12 -Tunneling No No -Undermining/Tunneling No No -Circular Undermining No No -Wound/Ulcer Outcome Not Healed Not Healed -Ulcer Cleansing Rinsed/ Rinsed/ Irrigated with Irrigated with Saline Saline -Foul Odor after Cleansing No No -Bioengineered Tissue No No -Bleeding Controlled with Pressure Pressure -Treatment Response Procedure Procedure Tolerated Well Tolerated Well -Offloading Yes Yes -Type of Offloading Surgical Shoe Surgical Shoe -Debridement - Subq, 1st 20sq cm Yes No 3-left 4th toe -Time 13:51 13:44 -Correct Patient Yes Yes -Correct Side, Site, Position Yes Yes -Correct Procedure Yes Yes -Procedure Performed Yes Yes -Type of Procedure Debridement Debridement -Clinical Debridement Subcutaneous Subcutaneous -Tissue Removed Subcutaneous Subcutaneous -Post Debridement (cm) - Length 0.8 1.0 -Post Debridement (cm) - Width 0.6 1.0 -Post Debridement (cm) - Depth 0.1 0.2 -Total Square (Post) (cm) 0.48 1.00 -Area of Debridement (cm) - Length 0.8 1.0 -Area of Debridement (cm) - Width 0.6 1.0 -Total Square (Area) (cm) 0.48 1.00 -Tunneling No No -Undermining/Tunneling No No -Circular Undermining No No -Wound/Ulcer Outcome Not Healed Not Healed -Ulcer Cleansing Rinsed/ Rinsed/ Irrigated with Irrigated with Saline Saline -Foul Odor after Cleansing No No -Bioengineered Tissue No No -Bleeding Controlled with Pressure Pressure -Treatment Response Procedure Procedure Tolerated Well Tolerated Well -Offloading Yes Yes -Type of Offloading Surgical Shoe Surgical Shoe -Debridement - Subq, 1st 20sq cm No No #1- L LATERAL FOOT -Time 13:51 13:44 -Correct Patient Yes Yes -Correct Side, Site, Position Yes Yes -Correct Procedure Yes Yes -Procedure Performed Yes Yes -Type of Procedure Debridement Debridement -Clinical Debridement Subcutaneous Subcutaneous -Tissue Removed Subcutaneous Subcutaneous -Post Debridement (cm) - Length 0.4 0.3 -Post Debridement (cm) - Width 0.3 0.2 -Post Debridement (cm) - Depth 0.2 0.2 -Total Square (Post) (cm) 0.12 0.06 -Area of Debridement (cm) - Length 0.4 0.3 -Area of Debridement (cm) - Width 0.3 0.2 -Total Square (Area) (cm) 0.12 0.06 -Tunneling No No -Undermining/Tunneling No No -Circular Undermining No No -Wound/Ulcer Outcome Not Healed Not Healed -Ulcer Cleansing Rinsed/ Rinsed/ Irrigated with Irrigated with Saline Saline -Foul Odor after Cleansing No No -Bioengineered Tissue No No -Bleeding Controlled with Pressure Pressure -Treatment Response Procedure Procedure Tolerated Well Tolerated Well -Offloading Yes Yes -Type of Offloading Surgical Shoe Surgical Shoe -Debridement - Subq, 1st 20sq cm No Yes Pain Scale: 0-10 Numeric Is Patient Pain Free? No Yes WC - Nurse 3 - General Ulcer D/C NN Start: 12/21/21 13:22 Freq: Status: Active Protocol: Activity Type Activity Date Activity User E-Sign Co-Sign Detail Recorded Client Recorded Date Recorded By Document 12/21/21 14:13 RB [id number] 12/21/21 14:14 RB Document 01/11/22 13:55 VT [id number] 01/11/22 13:56 AK 12/21/21 01/11/22 14:13 13:55 Wound Care Nurse 3 4-left lateral mid foot -Ulcer Cleansing Rinsed/ Irrigated with Saline -Foul Odor after Cleansing No -Negative Pressure Wound Therapy N/A -Primary Dressing Applied C Hydrogel ($) -Other Dressing HYDROGEL -Primary Dressing Covered/Secured with Dry Gauze & Dry Gauze, Roll Gauze, Secured with Secured with Tape Tape 3-left 4th toe -Ulcer Cleansing Rinsed/ Irrigated with Saline -Foul Odor after Cleansing No -Negative Pressure Wound Therapy N/A -Primary Dressing Applied C Hydrogel ($) -Other Dressing HYDROGEL -Primary Dressing Covered/Secured with Dry Gauze & Roll Gauze, Secured with Tape #1- L LATERAL FOOT -Ulcer Cleansing Rinsed/ Irrigated with Saline -Foul Odor after Cleansing No -Negative Pressure Wound Therapy N/A -Primary Dressing Applied C Hydrogel ($) -Other Dressing HYDROGEL -Primary Dressing Covered/Secured with Dry Gauze & Dry Gauze, Roll Gauze, Secured with Secured with Tape Tape Treatment Response Procedure Tolerated Well Pain Scale: 0-10 Numeric Is Patient Pain Free? Yes Yes WC - Visit Discharge Discharge Condition Stable Stable Ambulatory Status Ambulatory Ambulatory Transportation Private Auto Private Auto Accompanied by Medication Reconcilliation completed & No Yes provided to patient/care provider Clinical Summary of Care Provided Yes Yes Assessment/Plan Assessment/Plan (1) Delayed wound healing: CODE(S): T14.8XXD - Other injury of unspecified body region, subsequent en counter (2) Ulcer of left foot with fat layer exposed: CODE(S): L97.522 - Non-pressure chronic ulcer of other part of left foot with fat layer exposed (3) Peripheral vascular occlusive disease: CODE(S): I73.9 - Peripheral vascular disease, unspecified (4) Diabetes mellitus with neuropathy: CODE(S): E11.40 - Type 2 diabetes mellitus with diabetic neuropathy, unspecified QUALIFIERS: Diabetes mellitus custodial insulin use: without custodial use Diabetes mellitus type: type 2 Qualified Code(s): E11.40 - Type 2 diabetes mellitus with diabetic neuropathy, unspecified (5) Osteomyelitis: CODE(S): M86.9 - Osteomyelitis, unspecified QUALIFIERS: Laterality: left Osteomyelitis location: foot Osteomyelitis type: unspecified type Qualified Code(s): M86.9 - Osteomyelitis, unspecified (6) Eschar of foot: CODE(S): R23.4 - Changes in skin texture (7) Xerosis cutis: CODE(S): L85.3 - Xerosis cutis (8) Dermatitis of left foot: CODE(S): L30.9 - Dermatitis, unspecified PLAN: I reviewed and discussed his plan. Debridement was performed today as noted. He was advised to change his dressing daily with hydrogel (changed from Santyl). To change his daily wash with antibacterial soap and water. To avoid soaking activities. His recent increased improvement is noted. He was previously diagnosed with osteomyelitis and underwent a fifth ray resection of the left foot at [facility] on 02-04-21. The diagnosis was confirmed with pathological acute osteomyelitis. The clearance fragment that was sent to pathology was negative for acute osteomyelitis. The clearance fragment that was sent to microbiology did not demonstrate some E. coli growth. He was discharged home from the hospital on oral Augmentin and Cipro; completed. This issue was resolved and addressed. Previous labs were reviewed. Hemoglobin A1c on 02-05-21 was 7.5%. On 01-27-21 his ESR was 38 and C- reactive protein was 14.5. On 02-06-21 his white blood cell count was 13.4. His current cellulitis work-up information is as follows: He was switched from cephalexin and Bactrim under the management of his primary care physician to cefadroxil. Labs reviewed as WBC 8.9, esr 111, cr 2.49, GFR 27, a1c 8.3%(on 08/18/21). Xrays show fifth ray resection without soft tissue emphysema, osseous destruction , foreign body. Complete course of cefdinir and Flagyl as also recommended by Dr. Balderas, infectious disease specialist. This was completed and he is doing well. To wear white cotton socks and to avoid socks with color dyes. I recommend application of the cotton sock prior to use of Tubigrip which is recommended for local edema. I do not recommend more aggressive edema management due to his peripheral vascular disease status. To have a dermatitis in his tried both topical triamcinolone and betamethasone. He also tried to moisturize with CeraVe a to the management of coding validator, Dr. Correa. It is noted he proceeded with the discontinuation of wrapping a rolled gauze around the entire foot. Instead, he has covered the wound with a square piece of gauze and use paper tape. A steroid injection was also provided by coding validator last month. I recommend continued offloading chronic wound site areas with a surgical shoe. To try to keep mostly weight on the heel. I recommend nutritional supplementation optimize healing including Neri nutritional supplement pack daily. It is also noted that his A1c is still elevated which also does not have a good healing outcome. I advised him on continued improved diabetic control. He will return to clinic in 2 weeks. He has delayed healing however he is making progressive progress with each visit. Note: [employer] speech recognition municipal services manager software was used to create portions of this document. Sound-alike and misspelled words, as well as other municipal services manager errors may be contained in the documentation.
== END 2022-01-12 23:59 | disposition home or self-care (01) ==
LOC: WC 13:15
PROVIDERS: PCP Nurse Practitioner Family; Referring Provider Family Medicine; Visit Provider Podiatrist
DX: E11.621 Type 2 diabetes mellitus with foot ulcer (principal); E11.51 Type 2 diabetes mellitus with diabetic peripheral angiopathy without gangrene; L97.522 Non-pressure chronic ulcer of other part of left foot with fat layer exposed; M86.8X7 Other osteomyelitis, ankle and foot; E11.69 Type 2 diabetes mellitus with other specified complication; E11.40 Type 2 diabetes mellitus with diabetic neuropathy, unspecified; E11.620 Type 2 diabetes mellitus with diabetic dermatitis; L85.3 Xerosis cutis
CPT/HCPCS: 11042

== ENCOUNTER 2022-02-08 14:15 | Outpatient (RCR) | payer MEDICARE, SELFPAY ==
[2022-01-13 00:28] VITALS: BP 108/50; PULSE 70; RESP 16; TEMP 35.9; BMI 23.6
[2022-02-08 14:16] VITALS: BP 105/38; PULSE 68; RESP 16; TEMP 36.4; BMI 23.6
--- NOTE | 2022-02-08 14:59 | PN.PCM_ITS ---
History of Present Illness Date of Service: 02/08/22 Chief Complaint: Left foot ulcer History of Wound: This 76-year-old male was seen for left foot ulcer return to the wound healing center today. He had recent lower extremity vascular successful intervention performed with Dr. Bowens. It is noted he has a low ejection fraction and also small vessel disease is suspected. He had a fifth ray resection of the left foot at [facility] on 02/04/2021 for treatment of nonhealing ulcer and osteomyelitis. He has been changing the dressing as advised with hydrogel. He is with his today. He denies pain today. He denies erythema, adjacent skin inflammation and peeling, or odor. Progress of Wound: Improving ulcer noted to the side of the left foot Objective Data Objective Data Vital Signs: Vital Signs Temp Pulse Resp BP 97.6 F L 68 16 105/38 L 02/08/22 14:16 02/08/22 14:16 02/08/22 14:16 02/08/22 14:16 Oxygen Delivery Method Room Air Weight: 60.781 kg Body Mass Index (BMI) 23.6 Debridement Note Debridement Note Wound debrided: Left fourth toe, left lateral foot Wound Grade/Stage: 1,3 Type of Debridement: Excisional debridement Anesthesia Used: 4% Lidocaine Solution Depth: in the subcutaneous layer Percentage of wound debrided: 100 Instrument Used: #15 blade Tissue Removed: fibrous, devitalized subcutaneous, biofilm, slough Severity: Fat Layer Exposed Amount of bleeding with debridement: Mild Bleeding Controlled with: Pressure Patient tolerated procedure: Patient tolerated procedure well Post-Debridement Measurements and Additional Note: Post-Debridement Measurements/Treatment - Nurse 1 - General Ulcer Assessment Start: 02/08/22 14:16 Freq: Status: Active Protocol: .BRANNON Activity Type Activity Date Activity User E-Sign Co-Sign Detail Recorded Client Recorded Date Recorded By Document 02/08/22 14:16 [facility] [id number] 02/08/22 14:22 [facility] 02/08/22 14:16 - Today's Visit Information Type of service Follow-up Visit (Physician/CUSTOMER CARE CONSULTANT ) Arrival Mode Ambulatory Transfer Assistance None Accompanied by Patient Identification Verified (Name & Yes ) Patient Requires Transmission-Based No Precautions Height and Weight Body Mass Index (BMI) 23.6 BMI Classification Normal Vital Signs Temperature (97.8 F-99.1 F) 97.6 F L Temperature Source Temporal Pulse Rate (60-100) 68 Pulse Location Monitor Respiratory Rate (12-18) 16 Respiratory rate source Observation Oxygen Delivery Method Room Air Blood Pressure (90/60-120/80) 105/38 L Blood Pressure Mean (mm Hg) 60 Source Monitor Position Sitting Blood Pressure Location Left Arm History Since Last Visit- (Skip if this is Patient's initial visit) Have you changed medications since your No last visit? Any new allergies or adverse reactions No Had a fall/change in ADL's that may No increase risk of falls Signs or symptoms of abuse and/or No neglect since last visit Have you been in the hospital since your No last visit? Has dressing in place as prescribed Yes Has compression in place as prescribed N/A Has offloadiing in place as prescribed Yes Experienced any changes in pain level or No management Left Footwear Surgical Shoe with pressure relief insole Right Footwear Regular Shoe Pain Scale: 0-10 Numeric Is Patient Pain Free? Yes WC - Nurse 1 - General Ulcer Measurement Start: 02/08/22 14:16 Freq: Status: Active Protocol: Activity Type Activity Date Activity User E-Sign Co-Sign Detail Recorded Client Recorded Date Recorded By Document 02/08/22 14:16 [facility] [id number] 02/08/22 14:22 [facility] 02/08/22 14:16 Wound Center Nurse 1 4-left lateral mid foot -Combined with other wound No -Current Size (cm) - Length 0.1 -Current Size (cm) - Width 0.1 -Current Size (cm) - Depth 0.1 -Total Square Cm 0.01 -Exudate Amt None Present -Wound Margin Distinct, Outline Attached -Slough/Fibrin Yes -Necrosis Amt Large (67-100%) -Necrotic Tissue Type Eschar -Texture (Kasia-wound Skin Appearance) Assessed -Moisture (Kasia-wound Skin Appearance) Assessed -Color (Kasia-wound Skin Appearance) Assessed 3-left 4th toe -Combined with other wound No -Current Size (cm) - Length 0.1 -Current Size (cm) - Width 0.1 -Current Size (cm) - Depth 0.1 -Total Square Cm 0.01 -Photo Taken No -Exudate Amt None Present -Wound Margin Distinct, Outline Attached -Slough/Fibrin Yes -Necrosis Amt Large (67-100%) -Necrotic Tissue Type Eschar #1- L LATERAL FOOT -Combined with other wound No -Current Size (cm) - Length 0.1 -Current Size (cm) - Width 0.1 -Current Size (cm) - Depth 0.1 -Total Square Cm 0.01 -Exudate Amt None Present -Wound Margin Distinct, Outline Attached -Slough/Fibrin Yes -Necrosis Amt Large (67-100%) -Necrotic Tissue Type Eschar -Texture (Kasia-wound Skin Appearance) Assessed -Moisture (Kasia-wound Skin Appearance) Assessed -Color (Kasia-wound Skin Appearance) Assessed -Temperature (Kasia-wound Skin No Abnormality Appearance) (Pt Warm) -Tenderness on Palpation (Kasia-wound No Skin Appearance) -Ulcer Cleansing Rinsed/ Irrigated with Saline -Foul Odor after Cleansing No -Anesthetic Used 5% Lidocaine Gel WC - Nurse 2 - General Ulcer CM Notes Start: 02/08/22 14:16 Freq: Status: Active Protocol: Activity Type Activity Date Activity User E-Sign Co-Sign Detail Recorded Client Recorded Date Recorded By Document 02/08/22 14:48 [id number] 02/08/22 14:51 MICHA 02/08/22 14:48 Wound Center Nurse 2 4-left lateral mid foot -Correct Patient No -Correct Side, Site, Position No -Correct Procedure No -Procedure Performed No -Post Debridement (cm) - Length 0 -Post Debridement (cm) - Width 0 -Post Debridement (cm) - Depth 0 -Total Square (Post) (cm) 0 -Area of Debridement (cm) - Length 0 -Area of Debridement (cm) - Width 0 -Total Square (Area) (cm) 0 -Wound/Ulcer Outcome Healed- Epithelialized 3-left 4th toe -Time 14:49 -Correct Patient Yes -Correct Side, Site, Position Yes -Correct Procedure Yes -Procedure Performed Yes -Type of Procedure Debridement -Clinical Debridement Subcutaneous -Tissue Removed Subcutaneous -Post Debridement (cm) - Length 1.0 -Post Debridement (cm) - Width 1.0 -Post Debridement (cm) - Depth 0.2 -Total Square (Post) (cm) 1.00 -Area of Debridement (cm) - Length 1.0 -Area of Debridement (cm) - Width 1.0 -Total Square (Area) (cm) 1.00 -Tunneling No -Undermining/Tunneling No -Circular Undermining No -Wound/Ulcer Outcome Not Healed -Ulcer Cleansing Rinsed/ Irrigated with Saline -Foul Odor after Cleansing No -Bioengineered Tissue No -Bleeding Controlled with Pressure -Treatment Response Procedure Tolerated Well -Offloading Yes -Type of Offloading Surgical Shoe -Debridement - Subq, 1st 20sq cm Yes #1- L LATERAL FOOT -Time 14:50 -Correct Patient Yes -Correct Side, Site, Position Yes -Correct Procedure Yes -Procedure Performed Yes -Type of Procedure Debridement -Clinical Debridement Subcutaneous -Tissue Removed Subcutaneous -Post Debridement (cm) - Length 0.3 -Post Debridement (cm) - Width 0.3 -Post Debridement (cm) - Depth 0.1 -Total Square (Post) (cm) 0.09 -Area of Debridement (cm) - Length 0.3 -Area of Debridement (cm) - Width 0.3 -Total Square (Area) (cm) 0.09 -Tunneling No -Undermining/Tunneling No -Circular Undermining No -Wound/Ulcer Outcome Not Healed -Ulcer Cleansing Rinsed/ Irrigated with Saline -Foul Odor after Cleansing No -Bioengineered Tissue No -Bleeding Controlled with Pressure -Treatment Response Procedure Tolerated Well -Offloading Yes -Type of Offloading Surgical Shoe -Debridement - Subq, 1st 20sq cm No Pain Scale: 0-10 Numeric Is Patient Pain Free? 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 (3) Peripheral vascular occlusive disease: CODE(S): I73.9 - Peripheral vascular disease, unspecified (4) Diabetes mellitus with neuropathy: CODE(S): E11.40 - Type 2 diabetes mellitus with diabetic neuropathy, unspecified QUALIFIERS: Diabetes mellitus type: type 2 Diabetes mellitus superintendent [employer] insulin use: without skilled nursing use Qualified Code(s): E11.40 - Type 2 diabetes mellitus with diabetic neuropathy, unspecified (5) Osteomyelitis: CODE(S): M86.9 - Osteomyelitis, unspecified QUALIFIERS: Osteomyelitis type: unspecified type Osteomyelitis location: foot Laterality: left Qualified Code(s): M86.9 - Osteomyelitis, unspecified (6) Eschar of foot: CODE(S): R23.4 - Changes in skin texture (7) Xerosis cutis: CODE(S): L85.3 - Xerosis cutis (8) Dermatitis of left foot: CODE(S): L30.9 - Dermatitis, unspecified PLAN: I reviewed and discussed his plan. Debridement was performed today as noted. He was advised to change his dressing daily with hydrogel (changed from Santyl). To change his daily wash with antibacterial soap and water. To avoid soaking activities. His recent increased improvement is noted. He was previously diagnosed with osteomyelitis and underwent a fifth ray resection of the left foot at [facility] on 02-04-21. The diagnosis was confirmed with pathological acute osteomyelitis. The clearance fragment that was sent to pathology was negative for acute osteomyelitis. The clearance fragment that was sent to microbiology did not demonstrate some E. coli growth. He was discharged home from the hospital on oral Augmentin and Cipro; completed. This issue was resolved and addressed. Previous labs were reviewed. Hemoglobin A1c on 02-05-21 was 7.5%. On 01-27-21 his ESR was 38 and C- reactive protein was 14.5. On 02-06-21 his white blood cell count was 13.4. His current cellulitis work-up information is as follows: He was switched from cephalexin and Bactrim under the management of his primary care physician to cefadroxil. Labs reviewed as WBC 8.9, esr 111, cr 2.49, GFR 27, a1c 8.3%(on 08/18/21). Xrays show fifth ray resection without soft tissue emphysema, osseous destruction , foreign body. Complete course of cefdinir and Flagyl as also recommended by Dr. Balderas, infectious disease specialist. This was completed and he is doing well. To wear white cotton socks and to avoid socks with color dyes. I recommend application of the cotton sock prior to use of Tubigrip which is recommended for local edema. I do not recommend more aggressive edema management due to his peripheral vascular disease status. To have a dermatitis in his tried both topical triamcinolone and betamethasone. He also tried to moisturize with CeraVe a to the management of marketing support assistant, Dr. Correa. It is noted he proceeded with the discontinuation of wrapping a rolled gauze around the entire foot. Instead, he has covered the wound with a square piece of gauze and use paper tape. A steroid injection was also provided by marketing support assistant last month. I recommend continued offloading chronic wound site areas with a surgical shoe. To try to keep mostly weight on the heel. I recommend nutritional supplementation optimize healing including Neri nutritional supplement pack daily. It is also noted that his A1c is still elevated which also does not have a good healing outcome. I advised him on continued improved diabetic control. He will return to clinic in 2 weeks. He has delayed healing however he is making progressive progress with each visit. Note: [employer] speech recognition senior database engineer software was used to create portions of this document. Sound-alike and misspelled words, as well as other senior database engineer errors may be contained in the documentation.
== END 2022-02-11 23:59 | disposition home or self-care (01) ==
LOC: WC 14:15
PROVIDERS: PCP Nurse Practitioner Family; Referring Provider Family Medicine; Visit Provider Podiatrist
DX: E11.621 Type 2 diabetes mellitus with foot ulcer (principal); E11.51 Type 2 diabetes mellitus with diabetic peripheral angiopathy without gangrene; L97.522 Non-pressure chronic ulcer of other part of left foot with fat layer exposed; M86.9 Osteomyelitis, unspecified; E11.69 Type 2 diabetes mellitus with other specified complication; E11.620 Type 2 diabetes mellitus with diabetic dermatitis; E11.40 Type 2 diabetes mellitus with diabetic neuropathy, unspecified; Z79.4 Long term (current) use of insulin; L85.3 Xerosis cutis; Z79.82 Long term (current) use of aspirin; Z79.02 Long term (current) use of antithrombotics/antiplatelets; Z79.899 Other long term (current) drug therapy
CPT/HCPCS: 11042

== ENCOUNTER 2022-03-08 13:00 | Outpatient (RCR) | payer MEDICARE, SELFPAY ==
[2022-02-12 00:27] VITALS: BP 105/38; PULSE 68; RESP 16; TEMP 36.4; BMI 23.6
[2022-02-22 13:06] VITALS: BP 123/39; PULSE 66; RESP 16; TEMP 36.1; BMI 23.6
--- NOTE | 2022-02-22 21:50 | PN.PCM_ITS ---
History of Present Illness Date of Service: 02/22/22 Chief Complaint: Left foot ulcer History of Wound: This 76-year-old male was seen for left foot ulcer return to the wound healing center today. He had recent lower extremity vascular successful intervention performed with Dr. Bowens. It is noted he has a low ejection fraction and also small vessel disease is suspected. He had a fifth ray resection of the left foot at [facility] on 02/04/2021 for treatment of nonhealing ulcer and osteomyelitis. He has been changing the dressing as advised with hydrogel. He is with his today. He denies pain today. He denies erythema, adjacent skin inflammation and peeling, or odor. he also asks for help safely trimming his toenails in which he cannot perform on his own. Progress of Wound: improving Objective Data Objective Data Vital Signs: Vital Signs Temp Pulse Resp BP 96.9 F L 66 16 123/39 H 02/22/22 13:06 02/22/22 13:06 02/22/22 13:06 02/22/22 13:06 Oxygen Delivery Method Room Air Weight: 60.781 kg Body Mass Index (BMI) 23.6 Physical Exam Extremity Extremity Narrative: No calf tenderness Diminished pulses Muscle wasting noted Skin Skin Narrative: no purulence, no streaking, no odor. atrophic and hairless skin. fibrous ulcer base with some granulation tissue noted to lateral foot in 2 locations; decreased sizes. no exposed bone. peripheral thin epithelialization noted and continued. Reduced ulcer size noted. dorsal kasia ulcer inflammation with dry skin and erythema (decreased but still present). No petechiae to the dorsal foot noted and this is resolved. No adjacent bogginess or fluctuance or william necrosis. Prior dry eschar is now moist fibrous tissue to dorsal fourth toe adjacent to the nail bed nails long thick right [id number] and left 1234 Neuro Neuro Narrative: lack of normal epicritic sensation via light touch is consistent with neuropathy status Debridement Note Debridement Note Wound debrided: left foot Wound Grade/Stage: Type of Debridement: Excisional debridement Anesthesia Used: 4% Lidocaine Solution Depth: in the subcutaneous layer Percentage of wound debrided: 100 Instrument Used: #15 blade Tissue Removed: fibrous, devitalized subcutaneous, biofilm, slough Severity: Fat Layer Exposed Amount of bleeding with debridement: Mild Bleeding Controlled with: Pressure Patient tolerated procedure: Patient tolerated procedure well Post-Debridement Measurements and Additional Note: Post-Debridement Measurements/Treatment - Nurse 1 - General Ulcer Assessment Start: 02/22/22 13:06 Freq: Status: Active Protocol: JV Activity Type Activity Date Activity User E-Sign Co-Sign Detail Recorded Client Recorded Date Recorded By Document 02/22/22 13:06 [facility] [id number] 02/22/22 13:11 [facility] 02/22/22 13:06 WC - Today's Visit Information Type of service Follow-up Visit (Physician/EXTERMINATION INSPECTOR ) Arrival Mode Ambulatory Transfer Assistance None Accompanied by Patient Identification Verified (Name & Yes ) Patient Requires Transmission-Based No Precautions Height and Weight Body Mass Index (BMI) 23.6 BMI Classification Normal Vital Signs Temperature (97.8 F-99.1 F) 96.9 F L Temperature Source Temporal Pulse Rate (60-100) 66 Pulse Location Monitor Respiratory Rate (12-18) 16 Respiratory rate source Observation Oxygen Delivery Method Room Air Blood Pressure (90/60-120/80) 123/39 H Blood Pressure Mean (mm Hg) 67 Source Monitor Position Sitting Blood Pressure Location Left Arm History Since Last Visit- (Skip if this is Patient's initial visit) Have you changed medications since your No last visit? Any new allergies or adverse reactions No Had a fall/change in ADL's that may No increase risk of falls Signs or symptoms of abuse and/or No neglect since last visit Have you been in the hospital since your No last visit? Has dressing in place as prescribed Yes Has compression in place as prescribed N/A Has offloadiing in place as prescribed Yes Experienced any changes in pain level or No management Left Footwear Surgical Shoe with pressure relief insole Right Footwear Regular Shoe Pain Scale: 0-10 Numeric Is Patient Pain Free? Yes - Nurse 1 - General Ulcer Measurement Start: 02/22/22 13:06 Freq: Status: Active Protocol: Activity Type Activity Date Activity User E-Sign Co-Sign Detail Recorded Client Recorded Date Recorded By Document 02/22/22 13:06 [facility] [id number] 02/22/22 13:11 [facility] 02/22/22 13:06 Wound Center Nurse 1 3-left 4th toe -Combined with other wound No -Current Size (cm) - Length 0.1 -Current Size (cm) - Width 0.1 -Current Size (cm) - Depth 0.1 -Total Square Cm 0.01 -Date of Last Picture (Recall this 02/22/22 field) -Photo Taken Yes -Epithelialization Large 67-100% -Texture (Kasia-wound Skin Appearance) Assessed, Scarring -Moisture (Kasia-wound Skin Appearance) Assessed,Dry/ Scaly -Color (Kasia-wound Skin Appearance) Assessed -Ulcer Cleansing Rinsed/ Irrigated with Saline -Foul Odor after Cleansing No -Anesthetic Used 5% Lidocaine Gel #1- L LATERAL FOOT -Combined with other wound No -Current Size (cm) - Length 0.1 -Current Size (cm) - Width 0.1 -Current Size (cm) - Depth 0.1 -Total Square Cm 0.01 -Date of Last Picture (Recall this 02/22/22 field) -Photo Taken Yes -Epithelialization Large 67-100% -Texture (Kasia-wound Skin Appearance) Assessed, Scarring -Moisture (Kasia-wound Skin Appearance) Assessed,Dry/ Scaly -Color (Kasia-wound Skin Appearance) Assessed -Temperature (Kasia-wound Skin No Abnormality Appearance) (Pt Warm) -Ulcer Cleansing Rinsed/ Irrigated with Saline -Foul Odor after Cleansing No -Anesthetic Used 5% Lidocaine Gel WC - Nurse 2 - General Ulcer CM Notes Start: 02/22/22 13:06 Freq: Status: Active Protocol: Activity Type Activity Date Activity User E-Sign Co-Sign Detail Recorded Client Recorded Date Recorded By Document 02/22/22 13:27 MICHA [id number] 02/22/22 13:32 MICHA 02/22/22 13:27 Wound Center Nurse 2 3-left 4th toe -Time 13:27 -Correct Patient Yes -Correct Side, Site, Position Yes -Correct Procedure Yes -Procedure Performed Yes -Type of Procedure Debridement -Clinical Debridement Subcutaneous -Tissue Removed Subcutaneous -Post Debridement (cm) - Length 1.0 -Post Debridement (cm) - Width 0.5 -Post Debridement (cm) - Depth 0.1 -Total Square (Post) (cm) 0.50 -Area of Debridement (cm) - Length 1.0 -Area of Debridement (cm) - Width 0.5 -Total Square (Area) (cm) 0.50 -Tunneling No -Undermining/Tunneling No -Circular Undermining No -Wound/Ulcer Outcome Not Healed -Ulcer Cleansing Rinsed/ Irrigated with Saline -Foul Odor after Cleansing No -Bioengineered Tissue No -Bleeding Controlled with Pressure -Offloading Yes -Type of Offloading Surgical Shoe -Debridement - Subq, 1st 20sq cm No #1- L LATERAL FOOT -Time 13:30 -Correct Patient Yes -Correct Side, Site, Position Yes -Correct Procedure Yes -Procedure Performed Yes -Type of Procedure Debridement -Clinical Debridement Subcutaneous -Tissue Removed Subcutaneous -Post Debridement (cm) - Length 0.2 -Post Debridement (cm) - Width 0.2 -Post Debridement (cm) - Depth 0.1 -Total Square (Post) (cm) 0.04 -Area of Debridement (cm) - Length 0.2 -Area of Debridement (cm) - Width 0.2 -Total Square (Area) (cm) 0.04 -Tunneling No -Undermining/Tunneling No -Circular Undermining No -Wound/Ulcer Outcome Not Healed -Ulcer Cleansing Rinsed/ Irrigated with Saline -Foul Odor after Cleansing No -Bioengineered Tissue No -Bleeding Controlled with Pressure -Treatment Response Procedure Tolerated Well -Offloading Yes -Type of Offloading Surgical Shoe -Debridement - Subq, 20sq cm Yes Pain Scale: 0-10 Numeric Is Patient Pain Free? Yes - Nurse 3 - General Ulcer D/C NN Start: 02/22/22 13:06 Freq: Status: Active Protocol: Activity Type Activity Date Activity User E-Sign Co-Sign Detail Recorded Client Recorded Date Recorded By Document 02/22/22 13:34 [facility] [id number] 02/22/22 13:36 [facility] 02/22/22 13:34 Wound Care Nurse 3 3-left 4th toe -Ulcer Cleansing Rinsed/ Irrigated with Saline -Foul Odor after Cleansing No -Primary Dressing Applied Other -Other Dressing hydrogel -Primary Dressing Covered/Secured with Dry Gauze -Other Covering drsg per deloris reyes #1- L LATERAL FOOT -Ulcer Cleansing Rinsed/ Irrigated with Saline -Foul Odor after Cleansing No -Primary Dressing Applied Other -Other Dressing hydrogel -Primary Dressing Covered/Secured with Dry Gauze, Secured with Tape -Other Covering drsg per ak marketing manager Treatment Response Procedure Tolerated Well Pain Scale: 0-10 Numeric Is Patient Pain Free? Yes - Visit Discharge Discharge Condition Stable Ambulatory Status Ambulatory Transportation Private Auto Accompanied by Assessment/Plan Assessment/Plan (1) Delayed wound healing: CODE(S): T14.8XXD - Other injury of unspecified body region, subsequent encounter (2) Ulcer of left foot with fat layer exposed: CODE(S): L97.522 - Non-pressure chronic ulcer of other part of left foot with fat layer exposed (3) Peripheral vascular occlusive disease: CODE(S): I73.9 - Peripheral vascular disease, unspecified (4) Diabetes mellitus with neuropathy: CODE(S): E11.40 - Type 2 diabetes mellitus with diabetic neuropathy, unspecified QUALIFIERS: Diabetes mellitus adjunct faculty for medical terminology insulin use: without adjunct faculty for medical terminology use Diabetes mellitus type: type 2 Qualified Code(s): E11.40 - Type 2 diabetes mellitus with diabetic neuropathy, unspecified (5) Osteomyelitis: CODE(S): M86.9 - Osteomyelitis, unspecified QUALIFIERS: Laterality: left Osteomyelitis location: foot Osteomyelitis type: unspecified type Qualified Code(s): M86.9 - Osteomyelitis, unspecified (6) Eschar of foot: CODE(S): R23.4 - Changes in skin texture (7) Xerosis cutis: CODE(S): L85.3 - Xerosis cutis (8) Dermatitis of left foot: CODE(S): L30.9 - Dermatitis, unspecified (9) 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 Debridement was performed today as noted. He was advised to change his dressing daily with hydrogel (changed from Santyl). To change his daily wash with antibacterial soap and water. To avoid soaking activities. His recent increased improvement is noted. He was previously diagnosed with osteomyelitis and underwent a fifth ray resection of the left foot at [facility] on 02-04-21. The diagnosis was confirmed with pathological acute osteomyelitis. The clearance fragment that was sent to pathology was negative for acute osteomyelitis. The clearance fragment that was sent to microbiology did not demonstrate some E. coli growth. He was discharged home from the hospital on oral Augmentin and Cipro; completed. This issue was resolved and addressed. Previous labs were reviewed. Hemoglobin A1c on 02-05-21 was 7.5%. On 01-27-21 his ESR was 38 and C- reactive protein was 14.5. On 02-06-21 his white blood cell count was 13.4. His current cellulitis work-up information is as follows: He was switched from cephalexin and Bactrim under the management of his primary care physician to cefadroxil. Labs reviewed as WBC 8.9, esr 111, cr 2.49, GFR 27, a1c 8.3%(on 08/18/21). Xrays show fifth ray resection without soft tissue emphysema, osseous destruction , foreign body. Complete course of cefdinir and Flagyl as also recommended by Dr. Balderas, infectious disease specialist. This was completed and he is doing well. To wear white cotton socks and to avoid socks with color dyes. I recommend application of the cotton sock prior to use of Tubigrip which is recommended for local edema. I do not recommend more aggressive edema management due to his peripheral vascular disease status. To have a dermatitis in his tried both topical triamcinolone and betamethasone. He also tried to moisturize with CeraVe a to the management of orthotic fitter, Dr. Correa. It is noted he proceeded with the discontinuation of wrapping a rolled gauze around the entire foot. Instead, he has covered the wound with a square piece of gauze and use paper tape. A steroid injection was also provided by orthotic fitter last month. I recommend continued offloading chronic wound site areas with a surgical shoe. To try to keep mostly weight on the heel. I recommend nutritional supplementation optimize healing including Neri nutritional supplement pack daily. It is also noted that his A1c is still elevated which also does not have a good healing outcome. I advised him on continued improved diabetic control. He will return to clinic in 2 weeks. He has delayed healing however he is making progressive progress with each visit. Note: [employer] speech recognition home appliance technician software was used to create portions of this document. Sound-alike and misspelled words, as well as other home appliance technician errors may be contained in the documentation. Nails debrided w/ nail nipper bilateral 1,2,3, and right 5 without incident due to class findings. Debridement per professional is recommended to prevent limb loss, wound and infection. He tolerated this well. Verbal consent was obtained.
[2022-03-08 13:06] VITALS: BP 128/59; PULSE 74; TEMP 35.7; BMI 23.6
--- NOTE | 2022-03-08 16:28 | PCM.WC.PN ---
History of Present Illness Date of Service: 03/08/22 Chief Complaint: Left foot ulcer History of Wound: This 76-year-old male was seen for left foot ulcer return to the wound healing center today. He had recent lower extremity vascular successful intervention performed with Dr. Bowens. It is noted he has a low ejection fraction and also small vessel disease is suspected. He had a fifth ray resection of the left foot at [facility] on 02/04/2021 for treatment of nonhealing ulcer and osteomyelitis. He has been changing the dressing as advised with hydrogel. He is with his today. He denies pain today. He denies erythema, adjacent skin inflammation and peeling, or odor. He reports decreased drainage and resolved adjacent skin irritation Progress of Wound: improving Objective Data Objective Data Vital Signs: Vital Signs Temp Pulse Resp BP 96.3 F L 74 16 128/59 H 03/08/22 13:06 03/08/22 13:06 02/22/22 13:06 03/08/22 13:06 Oxygen Delivery Method Room Air Weight: 60.781 kg Body Mass Index (BMI) 23.6 Physical Exam Extremity Extremity Narrative: No calf tenderness Diminished pulses Muscle wasting noted Skin Skin Narrative: no purulence, no streaking, no odor. atrophic and hairless skin. fibrous ulcer base with some granulation tissue noted to lateral foot in 2 locations; decreased sizes. no exposed bone. peripheral thin epithelialization noted and continued. Reduced ulcer size noted. dorsal kasia ulcer inflammation with dry skin and erythema (decreased but still present). No petechiae to the dorsal foot noted and this is resolved. No adjacent bogginess or fluctuance or william necrosis. Prior dry eschar is now moist fibrous tissue to dorsal fourth toe adjacent to the nail bed with decreased sizes Neuro Neuro Narrative: lack of normal epicritic sensation via light touch is consistent with neuropathy status Debridement Note Debridement Note Wound debrided: left fourth toe, left lateral foot Wound Grade/Stage: 1,3 Type of Debridement: Excisional debridement Anesthesia Used: 4% Lidocaine Solution Depth: in the subcutaneous layer Percentage of wound debrided: 100 Instrument Used: #15 blade Tissue Removed: fibrous, devitalized subcutaneous, biofilm, slough Severity: Fat Layer Exposed Amount of bleeding with debridement: Mild Bleeding Controlled with: Pressure Patient tolerated procedure: Patient tolerated procedure well Post-Debridement Measurements and Additional Note: Post-Debridement Measurements/Treatment WC - Nurse 1 - General Ulcer Assessment Start: 02/22/22 13:06 Freq: Status: Active Protocol: JV Activity Type Activity Date Activity User E-Sign Co-Sign Detail Recorded Client Recorded Date Recorded By Document 02/22/22 13:06 [facility] [id number] 02/22/22 13:11 [facility] Document 03/08/22 13:06 [place] [id number] 03/08/22 13:17 OR 02/22/22 03/08/22 13:06 13:06 - Today's Visit Information Type of service Follow-up Visit Follow-up Visit (Physician/[employer] 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 (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[employer] 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 ) ) Arrival Mode Ambulatory Ambulatory Transfer Assistance None Accompanied by Patient Identification Verified (Name & Yes Yes ) Patient Requires Transmission-Based No No Precautions Safety Precautions NA Height and Weight Body Mass Index (BMI) 23.6 23.6 BMI Classification Normal Normal Vital Signs Temperature (97.8 F-99.1 F) 96.9 F L 96.3 F L Temperature Source Temporal Temporal Pulse Rate (60-100) 66 74 Pulse Location Monitor Monitor Respiratory Rate (12-18) 16 Respiratory rate source Observation Oxygen Delivery Method Room Air Blood Pressure (90/60-120/80) 123/39 H 128/59 H Blood Pressure Mean (mm Hg) 67 82 Source Monitor Monitor Position Sitting Blood Pressure Location Left Arm History Since Last Visit- (Skip if this is Patient's initial visit) Have you changed medications since your No No last visit? Any new allergies or adverse reactions No No Had a fall/change in ADL's that may No No increase risk of falls Signs or symptoms of abuse and/or No No neglect since last visit Have you been in the hospital since your No No last visit? Has dressing in place as prescribed Yes Yes Has compression in place as prescribed N/A N/A Has offloadiing in place as prescribed Yes N/A Experienced any changes in pain level or No No management Left Footwear Surgical Shoe Regular Shoe with pressure relief insole Right Footwear Regular Shoe Regular Shoe Pain Scale: 0-10 Numeric Is Patient Pain Free? Yes Yes ALFREDO - Nurse 1 - General Ulcer Measurement Start: 02/22/22 13:06 Freq: Status: Active Protocol: Activity Type Activity Date Activity User E-Sign Co-Sign Detail Recorded Client Recorded Date Recorded By Document 02/22/22 13:06 [facility] [id number] 02/22/22 13:11 [facility] Document 03/08/22 13:06 [place] [id number] 03/08/22 13:17 [place] 02/22/22 03/08/22 13:06 13:06 Wound Center Nurse 1 3-left 4th toe -Combined with other wound No No -Current Size (cm) - Length 0.1 0.2 -Current Size (cm) - Width 0.1 0.2 -Current Size (cm) - Depth 0.1 0.1 -Total Square Cm 0.01 0.04 -Date of Last Picture (Recall this 02/22/22 03/08/22 field) -Photo Taken Yes Yes -Epithelialization Large 67-100% Small 1-33% -Tunneling No -Undermining/Tunneling No -Circular Undermining No -Change in Wound Grade/Stage No -Exudate Amt Medium -Exudate Type Serosanguineous -Wound Margin Distinct, Outline Attached -Granulation Amt Medium (34-66%) -Granulation Quality Pale,[place] -Slough/Fibrin Yes -Necrosis Amt Small (1-33%) -Necrotic Tissue Type Adherent Slough -Structure Exposed N/A -Texture (Kasia-wound Skin Appearance) Assessed, Assessed, Scarring Scarring -Moisture (Kasia-wound Skin Appearance) Assessed,Dry/ Assessed,Dry/ Scaly Scaly -Color (Kasia-wound Skin Appearance) Assessed No Abnormality, Assessed -Temperature (Kasia-wound Skin No Abnormality Appearance) (Pt Warm) -Tenderness on Palpation (Kasia-wound No Skin Appearance) -Ulcer Cleansing Rinsed/ Rinsed/ Irrigated with Irrigated with Saline Saline -Foul Odor after Cleansing No No -Anesthetic Used 5% Lidocaine 4% Lidocaine Gel Solution #1- L LATERAL FOOT -Combined with other wound No No -Current Size (cm) - Length 0.1 0.1 -Current Size (cm) - Width 0.1 0.1 -Current Size (cm) - Depth 0.1 0.1 -Total Square Cm 0.01 0.01 -Date of Last Picture (Recall this 02/22/22 03/08/22 field) -Photo Taken Yes Yes -Epithelialization Large 67-100% None Present -Tunneling No -Undermining/Tunneling No -Circular Undermining No -Change in Wound Grade/Stage No -Exudate Amt None Present -Granulation Amt None Present (0 %) -Granulation Quality N/A -Slough/Fibrin No -Structure Exposed N/A -Texture (Kasia-wound Skin Appearance) Assessed, No Abnormality, Scarring Assessed -Moisture (Kasia-wound Skin Appearance) Assessed,Dry/ No Abnormality, Scaly Assessed -Color (Kasia-wound Skin Appearance) Assessed No Abnormality, Assessed -Temperature (Kasia-wound Skin No Abnormality No Abnormality Appearance) (Pt Warm) (Pt Warm) -Tenderness on Palpation (Kasia-wound No Skin Appearance) -Ulcer Cleansing Rinsed/ Rinsed/ Irrigated with Irrigated with Saline Saline -Foul Odor after Cleansing No -Anesthetic Used 5% Lidocaine 4% Lidocaine Gel Solution WC - Nurse 2 - General Ulcer CM Notes Start: 02/22/22 13:06 Freq: Status: Active Protocol: Activity Type Activity Date Activity User E-Sign Co-Sign Detail Recorded Client Recorded Date Recorded By Document 02/22/22 13:27 [id number] 02/22/22 13:32 Document 03/08/22 13:26 [id number] 03/08/22 13:29 02/22/22 03/08/22 13:27 13:26 Wound Center Nurse 2 3-left 4th toe -Time 13:27 13:27 -Correct Patient Yes Yes -Correct Side, Site, Position Yes Yes -Correct Procedure Yes Yes -Procedure Performed Yes Yes -Type of Procedure Debridement Debridement -Clinical Debridement Subcutaneous Subcutaneous -Tissue Removed Subcutaneous Subcutaneous -Post Debridement (cm) - Length 1.0 0.3 -Post Debridement (cm) - Width 0.5 0.2 -Post Debridement (cm) - Depth 0.1 0.1 -Total Square (Post) (cm) 0.50 0.06 -Area of Debridement (cm) - Length 1.0 0.3 -Area of Debridement (cm) - Width 0.5 0.2 -Total Square (Area) (cm) 0.50 0.06 -Tunneling No No -Undermining/Tunneling No No -Circular Undermining No No -Wound/Ulcer Outcome Not Healed Not Healed -Ulcer Cleansing Rinsed/ Rinsed/ Irrigated with Irrigated with Saline Saline -Foul Odor after Cleansing No No -Bioengineered Tissue No No -Bleeding Controlled with Pressure Pressure -Treatment Response Procedure Tolerated Well -Offloading Yes Yes -Type of Offloading Surgical Shoe Surgical Shoe -Debridement - Subq, 1st 20sq cm No Yes #1- L LATERAL FOOT -Time 13:30 13:28 -Correct Patient Yes Yes -Correct Side, Site, Position Yes Yes -Correct Procedure Yes Yes -Procedure Performed Yes Yes -Type of Procedure Debridement Debridement -Clinical Debridement Subcutaneous Subcutaneous -Tissue Removed Subcutaneous Subcutaneous -Post Debridement (cm) - Length 0.2 0.2 -Post Debridement (cm) - Width 0.2 0.1 -Post Debridement (cm) - Depth 0.1 0.1 -Total Square (Post) (cm) 0.04 0.02 -Area of Debridement (cm) - Length 0.2 0.2 -Area of Debridement (cm) - Width 0.2 0.1 -Total Square (Area) (cm) 0.04 0.02 -Tunneling No No -Undermining/Tunneling No No -Circular Undermining No No -Wound/Ulcer Outcome Not Healed Not Healed -Ulcer Cleansing Rinsed/ Rinsed/ Irrigated with Irrigated with Saline Saline -Foul Odor after Cleansing No No -Bioengineered Tissue No No -Bleeding Controlled with Pressure Pressure -Treatment Response Procedure Procedure Tolerated Well Tolerated Well -Offloading Yes Yes -Type of Offloading Surgical Shoe Surgical Shoe -Debridement - Subq, 1st 20sq cm Yes No Pain Scale: 0-10 Numeric Is Patient Pain Free? Yes Yes WC - Nurse 3 - General Ulcer D/C NN Start: 02/22/22 13:06 Freq: Status: Active Protocol: Activity Type Activity Date Activity User E-Sign Co-Sign Detail Recorded Client Recorded Date Recorded By Document 02/22/22 13:34 [facility] [id number] 02/22/22 13:36 [facility] Document 03/08/22 13:34 [facility] [id number] 03/08/22 13:35 BMF 02/22/22 03/08/22 13:34 13:34 Wound Care Nurse 3 3-left 4th toe -Ulcer Cleansing Rinsed/ Rinsed/ Irrigated with Irrigated with Saline Saline -Foul Odor after Cleansing No No -Primary Dressing Applied Other Other -Other Dressing hydrogel HYDROGEL -Primary Dressing Covered/Secured with Dry Gauze Dry Gauze, Secured with Tape -Other Covering drsg per ak denture finisher #1- L LATERAL FOOT -Ulcer Cleansing Rinsed/ Rinsed/ Irrigated with Irrigated with Saline Saline -Foul Odor after Cleansing No No -Primary Dressing Applied Other Other -Other Dressing hydrogel HYDROGEL -Primary Dressing Covered/Secured with Dry Gauze, Dry Gauze, Secured with Secured with Tape Tape -Other Covering drsg per ak denture finisher Treatment Response Procedure Procedure Tolerated Well Tolerated Well Pain Scale: 0-10 Numeric Is Patient Pain Free? Yes Yes WC - Visit Discharge Discharge Condition Stable Stable Ambulatory Status Ambulatory Ambulatory Transportation Private Auto Private Auto Accompanied by Assessment/Plan Assessment/Plan (1) Delayed wound healing: CODE(S): T14.8XXD - Other injury of unspecified body region, subsequent encounter (2) Ulcer of left foot with fat layer exposed: CODE(S): L97.522 - Non-pressure chronic ulcer of other part of left foot with fat layer exposed (3) Peripheral vascular occlusive disease: CODE(S): I73.9 - Peripheral vascular disease, unspecified (4) Diabetes mellitus with neuropathy: CODE(S): E11.40 - Type 2 diabetes mellitus with diabetic neuropathy, unspecified QUALIFIERS: Diabetes mellitus adjunct faculty for medical terminology insulin use: without adjunct faculty for medical terminology use Diabetes mellitus type: type 2 Qualified Code(s): E11.40 - Type 2 diabetes mellitus with diabetic neuropathy, unspecified (5) Osteomyelitis: CODE(S): M86.9 - Osteomyelitis, unspecified QUALIFIERS: Laterality: left Osteomyelitis location: foot Osteomyelitis type: unspecified type Qualified Code(s): M86.9 - Osteomyelitis, unspecified (6) Eschar of foot: CODE(S): R23.4 - Changes in skin texture (7) Xerosis cutis: CODE(S): L85.3 - Xerosis cutis (8) Dermatitis of left foot: CODE(S): L30.9 - Dermatitis, unspecified (9) 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 Debridement was performed today as noted. He was advised to change his dressing daily with hydrogel (changed from Santyl). To change his daily wash with antibacterial soap and water. To avoid soaking activities. His recent increased improvement is noted. He was previously diagnosed with osteomyelitis and underwent a fifth ray resection of the left foot at [facility] on 02-04-21. The diagnosis was confirmed with pathological acute osteomyelitis. The clearance fragment that was sent to pathology was negative for acute osteomyelitis. The clearance fragment that was sent to microbiology did not demonstrate some E. coli growth. He was discharged home from the hospital on oral Augmentin and Cipro; completed. This issue was resolved and addressed. Previous labs were reviewed. Hemoglobin A1c on 02-05-21 was 7.5%. On 01-27-21 his ESR was 38 and C-reactive protein was 14.5. On 02-06-21 his white blood cell count was 13.4. His current cellulitis work-up information is as follows: He was switched from cephalexin and Bactrim under the management of his primary care physician to cefadroxil. Labs reviewed as WBC 8.9, esr 111, cr 2.49, GFR 27, a1c 8.3%(on 08/18/21). Xrays show fifth ray resection without soft tissue emphysema, osseous destruction , foreign body. Complete course of cefdinir and Flagyl as also recommended by Dr. Balderas, infectious disease specialist. This was completed and he is doing well. To wear white cotton socks and to avoid socks with color dyes. I recommend application of the cotton sock prior to use of Tubigrip which is recommended for local edema. I do not recommend more aggressive edema management due to his peripheral vascular disease status. To have a dermatitis in his tried both topical triamcinolone and betamethasone. He also tried to moisturize with CeraVe a to the management of tanning wheel filler, Dr. Correa. It is noted he proceeded with the discontinuation of wrapping a rolled gauze around the entire foot. Instead, he has covered the wound with a square piece of gauze and use paper tape. A steroid injection was also provided by tanning wheel filler previously and this is a resolved condition at this time. I recommend continued offloading chronic wound site areas with a surgical shoe. To try to keep mostly weight on the heel. I recommend nutritional supplementation optimize healing including Neri nutritional supplement pack daily. It is also noted that his A1c is still elevated which also does not have a good healing outcome. I advised him on continued improved diabetic control. He will return to clinic in 2 weeks. He has delayed healing however he is making progressive progress with each visit. Note: [employer] speech recognition revenue cycle administrator software was used to create portions of this document. Sound-alike and misspelled words, as well as other revenue cycle administrator errors may be contained in the documentation.
== END 2022-03-14 23:59 | disposition home or self-care (01) ==
LOC: WC 13:00
PROVIDERS: PCP Nurse Practitioner Family; Referring Provider Family Medicine; Visit Provider Podiatrist
DX: E11.621 Type 2 diabetes mellitus with foot ulcer (principal); E11.51 Type 2 diabetes mellitus with diabetic peripheral angiopathy without gangrene; L97.522 Non-pressure chronic ulcer of other part of left foot with fat layer exposed; M86.8X7 Other osteomyelitis, ankle and foot; E11.69 Type 2 diabetes mellitus with other specified complication; E11.40 Type 2 diabetes mellitus with diabetic neuropathy, unspecified; E11.620 Type 2 diabetes mellitus with diabetic dermatitis; L85.3 Xerosis cutis; L60.2 Onychogryphosis
CPT/HCPCS: 11042

== ENCOUNTER 2022-04-05 13:15 | Outpatient (RCR) | payer MEDICARE, SELFPAY ==
[2022-03-15 00:43] VITALS: BP 128/59; PULSE 74; RESP 16; TEMP 35.7; BMI 23.6
[2022-03-22 13:20] VITALS: BP 117/52; PULSE 67; RESP 18; TEMP 36.3; BMI 23.6
--- NOTE | 2022-03-22 14:55 | PN.PCM_ITS ---
History of Present Illness Date of Service: 03/22/22 Chief Complaint: Left foot ulcer History of Wound: This 76-year-old male was seen for left foot ulcer return to the wound healing center today. He had recent lower extremity vascular successful intervention performed with Dr. Bowens. It is noted he has a low ejection fraction and also small vessel disease is suspected. He had a fifth ray resection of the left foot at [facility] on 02/04/2021 for treatment of nonhealing ulcer and osteomyelitis. He has been changing the dressing as advised with hydrogel. He is with his today. He denies pain today. He denies erythema, adjacent skin inflammation and peeling, or odor. He reports his skin tore from tape on the top of his foot. Progress of Wound: stable (improved toe and reopened lateral foot) Objective Data Objective Data Vital Signs: Vital Signs Temp Pulse Resp BP 97.3 F L 67 18 117/52 L 03/22/22 13:20 03/22/22 13:20 03/22/22 13:20 03/22/22 13:20 Weight: 60.781 kg Body Mass Index (BMI) 23.6 Physical Exam Extremity Extremity Narrative: No calf tenderness Diminished pulses Muscle wasting noted Skin Skin Narrative: no purulence, no streaking, no odor. atrophic and hairless skin. fibrous ulcer base with some granulation tissue noted to lateral foot reopened x 1; decreased sizes. no exposed bone. peripheral thin epithelialization noted and continued. dorsal kasia ulcer inflammation with dry skin and erythema (decreased but still present). No petechiae to the dorsal foot noted and this is resolved. No adjacent bogginess or fluctuance or william necrosis. Prior dry eschar is now moist fibrous tissue to dorsal fourth toe adjacent to the nail bed with decreased size Neuro Neuro Narrative: lack of normal epicritic sensation via light touch is consistent with neuropathy status Debridement Note Debridement Note Wound debrided: left lateral foot, fourth toe Wound Grade/Stage: 1,1 Type of Debridement: Excisional debridement Anesthesia Used: 4% Lidocaine Solution Depth: in the subcutaneous layer Percentage of wound debrided: 100 Instrument Used: #15 blade Tissue Removed: fibrous, devitalized subcutaneous, biofilm, slough Severity: Fat Layer Exposed Amount of bleeding with debridement: Mild Bleeding Controlled with: Pressure Patient tolerated procedure: Patient tolerated procedure well Post-Debridement Measurements and Additional Note: Post-Debridement Measureme nts/Treatment WC - Nurse 1 - General Ulcer Assessment Start: 03/22/22 13:20 Freq: Status: Active Protocol: JV Activity Type Activity Date Activity User E-Sign Co-Sign Detail Recorded Client Recorded Date Recorded By Document 03/22/22 13:20 MOHIT [id number] 03/22/22 13:24 RB 03/22/22 13:20 WC - Today's Visit Information Type of service Follow-up Visit (Physician/LA[facility]WMAN ) Arrival Mode Ambulatory Transfer Assistance None Patient Identification Verified (Name & Yes ) Patient Requires Transmission-Based No Precautions Height and Weight Body Mass Index (BMI) 23.6 BMI Classification Normal Vital Signs Temperature (97.8 F-99.1 F) 97.3 F L Temperature Source Temporal Pulse Rate (60-100) 67 Pulse Location Monitor Respiratory Rate (12-18) 18 Respiratory rate source Observation Blood Pressure (90/60-120/80) 117/52 L Blood Pressure Mean (mm Hg) 73 Source Monitor Position Sitting Blood Pressure Location Left Arm History Since Last Visit- (Skip if this is Patient's initial visit) Have you changed medications since your No last visit? Any new allergies or adverse reactions No Had a fall/change in ADL's that may No increase risk of falls Signs or symptoms of abuse and/or No neglect since last visit Have you been in the hospital since your No last visit? Has dressing in place as prescribed Yes Has compression in place as prescribed No Has offloadiing in place as prescribed Yes Experienced any changes in pain level or No management Left Footwear Surgical Shoe with pressure relief insole Pain Scale: 0-10 Numeric Is Patient Pain Free? Yes ALFREDO - Nurse 1 - General Ulcer Measurement Start: 03/22/22 13:20 Freq: Status: Active Protocol: Activity Type Activity Date Activity User E-Sign Co-Sign Detail Recorded Client Recorded Date Recorded By Document 03/22/22 13:20 MOHIT [id number] 03/22/22 13:24 RB 03/22/22 13:20 Wound Center Nurse 1 3-left 4th toe -Combined with other wound No -Current Size (cm) - Length 0.1 -Current Size (cm) - Width 0.1 -Current Size (cm) - Depth 0.1 -Total Square Cm 0.01 -Tunneling No -Undermining/Tunneling No -Circular Undermining No -Exudate Amt None Present -Granulation Amt Large (67-100%) -Granulation Quality [place] -Slough/Fibrin Yes -Necrosis Amt Small (1-33%) -Necrotic Tissue Type Adherent Slough -Structure Exposed N/A -Texture (Kasia-wound Skin Appearance) Assessed -Moisture (Kasia-wound Skin Appearance) Dry/Scaly -Color (Kasia-wound Skin Appearance) Assessed -Temperature (Kasia-wound Skin No Abnormality Appearance) (Pt Warm) -Tenderness on Palpation (Kasia-wound No Skin Appearance) -Ulcer Cleansing Rinsed/ Irrigated with Saline -Foul Odor after Cleansing No -Anesthetic Used 5% Lidocaine Gel #1- L LATERAL FOOT -Combined with other wound No -Current Size (cm) - Length 0.1 -Current Size (cm) - Width 0.1 -Current Size (cm) - Depth 0.1 -Total Square Cm 0.01 -Tunneling No -Undermining/Tunneling No -Circular Undermining No -Exudate Amt None Present -Wound Margin Distinct, Outline Attached -Granulation Amt Large (67-100%) -Granulation Quality [place] -Slough/Fibrin Yes -Necrosis Amt Small (1-33%) -Necrotic Tissue Type Adherent Slough -Structure Exposed N/A -Texture (Kasia-wound Skin Appearance) Assessed -Moisture (Kasia-wound Skin Appearance) Dry/Scaly -Color (Kasia-wound Skin Appearance) Assessed -Temperature (Kasia-wound Skin No Abnormality Appearance) (Pt Warm) -Tenderness on Palpation (Kasia-wound No Skin Appearance) -Ulcer Cleansing Rinsed/ Irrigated with Saline -Foul Odor after Cleansing No -Anesthetic Used 5% Lidocaine Gel WC - Nurse 2 - General Ulcer CM Notes Start: 03/22/22 13:20 Freq: Status: Active Protocol: Activity Type Activity Date Activity User E-Sign Co-Sign Detail Recorded Client Recorded Date Recorded By Document 03/22/22 13:33 MICHA [id number] 03/22/22 13:36 MICHA 03/22/22 13:33 Wound Center Nurse 2 3-left 4th toe -Time 13:34 -Correct Patient Yes -Correct Side, Site, Position Yes -Correct Procedure Yes -Procedure Performed Yes -Type of Procedure Debridement -Clinical Debridement Subcutaneous -Tissue Removed Subcutaneous -Post Debridement (cm) - Length 0.4 -Post Debridement (cm) - Width 0.2 -Post Debridement (cm) - Depth 0.1 -Total Square (Post) (cm) 0.08 -Area of Debridement (cm) - Length 0.4 -Area of Debridement (cm) - Width 0.2 -Total Square (Area) (cm) 0.08 -Tunneling No -Undermining/Tunneling No -Circular Undermining No -Wound/Ulcer Outcome Not Healed -Ulcer Cleansing Rinsed/ Irrigated with Saline -Foul Odor after Cleansing No -Bioengineered Tissue No -Bleeding Controlled with Pressure -Treatment Response Procedure Tolerated Well -Offloading Yes -Type of Offloading Surgical Shoe -Debridement - Subq, 1st 20sq cm Yes #1- L LATERAL FOOT -Time 13:34 -Correct Patient Yes -Correct Side, Site, Position Yes -Correct Procedure Yes -Procedure Performed Yes -Type of Procedure Debridement -Clinical Debridement Subcutaneous -Tissue Removed Subcutaneous -Post Debridement (cm) - Length 0.2 -Post Debridement (cm) - Width 0.4 -Post Debridement (cm) - Depth 0.2 -Total Square (Post) (cm) 0.08 -Area of Debridement (cm) - Length 0.2 -Area of Debridement (cm) - Width 0.4 -Total Square (Area) (cm) 0.08 -Tunneling No -Undermining/Tunneling No -Circular Undermining No -Wound/Ulcer Outcome Not Healed -Ulcer Cleansing Rinsed/ Irrigated with Saline -Foul Odor after Cleansing No -Bioengineered Tissue No -Bleeding Controlled with Pressure -Treatment Response Procedure Tolerated Well -Offloading Yes -Type of Offloading Surgical Shoe -Debridement - Subq, 1st 20sq cm No Pain Scale: 0-10 Numeric Is Patient Pain Free? Yes WC - Nurse 3 - General Ulcer D/C NN Start: 03/22/22 13:20 Freq: Status: Active Protocol: Activity Type Activity Date Activity User E-Sign Co-Sign Detail Recorded Client Recorded Date Recorded By Document 03/22/22 13:54 NATALEE [id number] 03/22/22 13:54 NATALEE 03/22/22 13:54 Wound Care Nurse 3 3-left 4th toe -Ulcer Cleansing Rinsed/ Irrigated with Saline -Foul Odor after Cleansing No -Negative Pressure Wound Therapy N/A -Primary Dressing Applied C Hydrogel ($) -Primary Dressing Covered/Secured with Dry Gauze, Secured with Tape #1- L LATERAL FOOT -Ulcer Cleansing Rinsed/ Irrigated with Saline -Foul Odor after Cleansing No -Negative Pressure Wound Therapy N/A -Primary Dressing Applied C Hydrogel ($) -Primary Dressing Covered/Secured with Dry Gauze, Secured with Tape Pain Scale: 0-10 Numeric Is Patient Pain Free? 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 (3) Peripheral vascular occlusive disease: CODE(S): I73.9 - Peripheral vascular disease, unspecified (4) Diabetes mellitus with neuropathy: CODE(S): E11.40 - Type 2 diabetes mellitus with diabetic neuropathy, unspecified QUALIFIERS: Diabetes mellitus residential insulin use: without residential use Diabetes mellitus type: type 2 Qualified Code(s): E11.40 - Type 2 diabetes mellitus with diabetic neuropathy, unspecified (5) Osteomyelitis: CODE(S): M86.9 - Osteomyelitis, unspecified QUALIFIERS: Laterality: left Osteomyelitis location: foot Osteomyelitis type: unspecified type Qualified Code(s): M86.9 - Osteomyelitis, unspecified (6) Xerosis cutis: CODE(S): L85.3 - Xerosis cutis (7) Noninfected skin tear of lower extremity: CODE(S): S81.819A - Laceration without foreign body, unspecified lower leg, initial encounter PLAN: I reviewed and discussed his plan. Debridement was performed today as noted. He was advised to change his dressing daily with hydrogel (changed from Santyl). To change his daily wash with antibacterial soap and water. To avoid soaking activities. His recent increased improvement is noted. He was previously diagnosed with osteomyelitis and underwent a fifth ray resection of the left foot at [facility] on 02-04-21. The diagnosis was confirmed with pathological acute osteomyelitis. The clearance fragment that was sent to pathology was negative for acute osteomyelitis. The clearance fragment that was sent to microbiology did not demonstrate some E. coli growth. He was discharged home from the hospital on oral Augmentin and Cipro; completed. This issue was resolved and addressed. Previous labs were reviewed. Hemoglobin A1c on 02-05-21 was 7.5%. On 01-27-21 his ESR was 38 and C- reactive protein was 14.5. On 02-06-21 his white blood cell count was 13.4. His current cellulitis work-up information is as follows: He was switched from cephalexin and Bactrim under the management of his primary care physician to cefadroxil. Labs reviewed as WBC 8.9, esr 111, cr 2.49, GFR 27, a1c 8.3%(on 08/18/21). Xrays show fifth ray resection without soft tissue emphysema, osseous destruction , foreign body. Complete course of cefdinir and Flagyl as also recommended by Dr. Balderas, infectious disease specialist. This was completed and he is doing well. To wear white cotton socks and to avoid socks with color dyes. I recommend application of the cotton sock prior to use of Tubigrip which is recommended for local edema. I do not recommend more aggressive edema management due to his peripheral vascular disease status. To have a dermatitis in his tried both topical triamcinolone and betamethasone. He also tried to moisturize with CeraVe a to the management of computer systems consultant, Dr. Correa. It is noted he proceeded with the discontinuation of wrapping a rolled gauze around the entire foot. Instead, he has covered the wound with a square piece of gauze and use paper tape. A steroid injection was also provided by computer systems consultant previously and this is a resolved condition at this time. I recommend continued offloading chronic wound site areas with a surgical shoe. To try to keep mostly weight on the heel. I recommend nutritional supplementation optimize healing including Neri nutritional supplement pack daily. It is also noted that his A1c is still elevated which also does not have a good healing outcome. I advised him on continued improved diabetic control. He will return to clinic in 2 weeks. He has delayed healing however he is making progressive progress with each visit. To take caution with tape application; will try medipore tape instead of paper tape this week. Note: [employer] speech recognition child welfare counselor software was used to create portions of this document. Sound-alike and misspelled words, as well as other child welfare counselor errors may be contained in the documentation. The medical decision making level is low. There is noted low risk of morbidity after considering this treatment plan and diagnostic data. The problems addressed require a low medical decision making level which includes two or more minor problems, a stable chronic illness, or an acute uncomplicated illness or injury.
[2022-04-05 13:12] VITALS: BP 126/52; PULSE 70; RESP 18; TEMP 36.7; BMI 23.6
--- NOTE | 2022-04-05 15:24 | PCM.WC.PN ---
History of Present Illness Date of Service: 04/05/22 Chief Complaint: Left foot ulcer History of Wound: This 76-year-old male was seen for left foot ulcer return to the wound healing center today. He had recent lower extremity vascular successful intervention performed with Dr. Bowens. It is noted he has a low ejection fraction and also small vessel disease is suspected. He had a fifth ray resection of the left foot at [facility] on 02/04/2021 for treatment of nonhealing ulcer and osteomyelitis. He has been changing the dressing as advised with hydrogel. He is with his today. He denies pain today. He reports some returned erythema, adjacent skin inflammation and peeling, but no odor. Progress of Wound: stable (improved toe and stablelateral foot) Objective Data Objective Data Vital Signs: Vital Signs Temp Pulse Resp BP 98.1 F 70 18 126/52 H 04/05/22 13:12 04/05/22 13:12 04/05/22 13:12 04/05/22 13:12 Weight: 60.781 kg Body Mass Index (BMI) 23.6 Physical Exam Extremity Extremity Narrative: No calf tenderness Diminished pulses Muscle wasting noted Skin Skin Narrative: no purulence, no streaking, no odor. atrophic and hairless skin. fibrous ulcer base with some granulation tissue noted to lateral foot reopened x 1; decreased sizes. no exposed bone. peripheral thin epithelialization noted and continued. dorsal kasia ulcer inflammation with dry skin and erythema (more notable and irritated today, no new wounds or infection present). No adjacent bogginess or fluctuance or william necrosis. Neuro Neuro Narrative: lack of normal epicritic sensation via light touch is consistent with neuropathy status Debridement Note Debridement Note Wound debrided: left lateral foot, fourth toe Wound Grade/Stage: 1,1 Type of Debridement: Excisional debridement Anesthesia Used: 4% Lidocaine Solution Depth: in the subcutaneous layer Percentage of wound debrided: 100 Instrument Used: #15 blade Tissue Removed: fibrous, devitalized subcutaneous, biofilm, slough Severity: Fat Layer Exposed Amount of bleeding with debridement: Mild Bleeding Controlled with: Pressure Patient tolerated procedure: Patient tolerated procedure well Post-Debridement Measurements and Additional Note: Post-Debridement Measurements/Treatment ALFREDO - Nurse 1 - General Ulcer Assessment Start: 03/22/22 13:20 Freq: Status: Active Protocol: JV Activity Type Activity Date Activity User E-sign Co-sign Detail Recorded Client Recorded Date Recorded By Document 03/22/22 13:20 RB [id number] 03/22/22 13:24 RB Document 04/05/22 13:12 DL [id number] 04/05/22 13:16 DL 03/22/22 04/05/22 13:20 13:12 - Today's Visit Information Type of service Follow-up Visit Follow-up Visit (Physician/ROTARY HELPER (Physician/ROTARY HELPER ) ) Arrival Mode Ambulatory Ambulatory Transfer Assistance None None Patient Identification Verified (Name & Yes Yes ) Patient Requires Transmission-Based No No Precautions Finger Stick Blood Sugar(mg/dl) (if 119 indicated): Blood Sugar Stated by Patient Height and Weight Body Mass Index (BMI) 23.6 23.6 BMI Classification Normal Normal Vital Signs Temperature (97.8 F-99.1 F) 97.3 F L 98.1 F Temperature Source Temporal Temporal Pulse Rate (60-100) 67 70 Pulse Location Monitor Monitor Respiratory Rate (12-18) 18 18 Respiratory rate source Observation Observation Blood Pressure (90/60-120/80) 117/52 L 126/52 H Blood Pressure Mean (mm Hg) 73 76 Source Monitor Monitor Position Sitting Blood Pressure Location Left Arm History Since Last Visit- (Skip if this is Patient's initial visit) Have you changed medications since your No No last visit? Any new allergies or adverse reactions No No Had a fall/change in ADL's that may No No increase risk of falls Signs or symptoms of abuse and/or No No neglect since last visit Have you been in the hospital since your No No last visit? Has dressing in place as prescribed Yes Yes Has compression in place as prescribed No N/A Has offloadiing in place as prescribed Yes Yes Experienced any changes in pain level or No No management Left Footwear Surgical Shoe Surgical Shoe with pressure with pressure relief insole relief insole Right Footwear Surgical Shoe with pressure relief insole Pain Scale: 0-10 Numeric Is Patient Pain Free? Yes Yes - Nurse 1 - General Ulcer Measurement Start: 03/22/22 13:20 Freq: Status: Active Protocol: Activity Type Activity Date Activity User E-sign Co-sign Detail Recorded Client Recorded Date Recorded By Document 03/22/22 13:20 RB [id number] 03/22/22 13:24 RB Document 04/05/22 13:12 DL [id number] 04/05/22 13:16 DL 03/22/22 04/05/22 13:20 13:12 Wound Center Nurse 1 3-left 4th toe -Combined with other wound No -Current Size (cm) - Length 0.1 0.1 -Current Size (cm) - Width 0.1 0.1 -Current Size (cm) - Depth 0.1 0.1 -Total Square Cm 0.01 0.01 -Photo Taken No -Tunneling No -Undermining/Tunneling No -Circular Undermining No -Exudate Amt None Present None Present -Wound Margin Distinct, Outline Attached -Granulation Amt Large (67-100%) Small (1-33%) -Granulation Quality Harvel Harvel -Slough/Fibrin Yes -Necrosis Amt Small (1-33%) Small (1-33%) -Necrotic Tissue Type Adherent Slough Adherent Slough -Structure Exposed N/A N/A -Texture (Kasia-wound Skin Appearance) Assessed Scarring -Moisture (Kasia-wound Skin Appearance) Dry/Scaly Dry/Scaly -Color (Kasia-wound Skin Appearance) Assessed Erythema -Temperature (Kasia-wound Skin No Abnormality No Abnormality Appearance) (Pt Warm) (Pt Warm) -Tenderness on Palpation (Kasia-wound No No Skin Appearance) -Ulcer Cleansing Rinsed/ Rinsed/ Irrigated with Irrigated with Saline Saline -Foul Odor after Cleansing No No -Anesthetic Used 5% Lidocaine 5% Lidocaine Gel Gel #1- L LATERAL FOOT -Combined with other wound No -Current Size (cm) - Length 0.1 0.1 -Current Size (cm) - Width 0.1 0.1 -Current Size (cm) - Depth 0.1 0.1 -Total Square Cm 0.01 0.01 -Photo Taken Yes -Tunneling No -Undermining/Tunneling No -Circular Undermining No -Exudate Amt None Present None Present -Wound Margin Distinct, Flat & Intact Outline Attached -Granulation Amt Large (67-100%) Large (67-100%) -Granulation Quality Harvel Harvel -Slough/Fibrin Yes -Necrosis Amt Small (1-33%) None Present (0 %) -Necrotic Tissue Type Adherent Slough -Structure Exposed N/A N/A -Texture (Kasia-wound Skin Appearance) Assessed Scarring -Moisture (Kasia-wound Skin Appearance) Dry/Scaly Dry/Scaly -Color (Kasia-wound Skin Appearance) Assessed No Abnormality -Temperature (Kasia-wound Skin No Abnormality Appearance) (Pt Warm) -Tenderness on Palpation (Kasia-wound No No Skin Appearance) -Ulcer Cleansing Rinsed/ Rinsed/ Irrigated with Irrigated with Saline Saline -Foul Odor after Cleansing No No -Anesthetic Used 5% Lidocaine 5% Lidocaine Gel Gel WC - Nurse 2 - General Ulcer CM Notes Start: 03/22/22 13:20 Freq: Status: Active Protocol: Activity Type Activity Date Activity User E-sign Co-sign Detail Recorded Client Recorded Date Recorded By Document 03/22/22 13:33 [id number] 03/22/22 13:36 Document 04/05/22 13:32 [id number] 04/05/22 13:35 03/22/22 04/05/22 13:33 13:32 Wound Center Nurse 2 3-left 4th toe -Time 13:34 13:32 -Correct Patient Yes Yes -Correct Side, Site, Position Yes Yes -Correct Procedure Yes Yes -Procedure Performed Yes Yes -Type of Procedure Debridement Debridement -Clinical Debridement Subcutaneous Subcutaneous -Tissue Removed Subcutaneous Subcutaneous -Post Debridement (cm) - Length 0.4 0.3 -Post Debridement (cm) - Width 0.2 0.2 -Post Debridement (cm) - Depth 0.1 0.1 -Total Square (Post) (cm) 0.08 0.06 -Area of Debridement (cm) - Length 0.4 0.3 -Area of Debridement (cm) - Width 0.2 0.2 -Total Square (Area) (cm) 0.08 0.06 -Tunneling No No -Undermining/Tunneling No No -Circular Undermining No No -Wound/Ulcer Outcome Not Healed Not Healed -Ulcer Cleansing Rinsed/ Rinsed/ Irrigated with Irrigated with Saline Saline -Foul Odor after Cleansing No No -Bioengineered Tissue No No -Bleeding Controlled with Pressure Pressure -Treatment Response Procedure Procedure Tolerated Well Tolerated Well -Offloading Yes Yes -Type of Offloading Surgical Shoe Surgical Shoe -Debridement - Subq, 1st 20sq cm Yes No #1- L LATERAL FOOT -Time 13:34 13:33 -Correct Patient Yes Yes -Correct Side, Site, Position Yes Yes -Correct Procedure Yes Yes -Procedure Performed Yes Yes -Type of Procedure Debridement Debridement -Clinical Debridement Subcutaneous Subcutaneous -Tissue Removed Subcutaneous Subcutaneous -Post Debridement (cm) - Length 0.2 0.2 -Post Debridement (cm) - Width 0.4 0.1 -Post Debridement (cm) - Depth 0.2 0.1 -Total Square (Post) (cm) 0.08 0.02 -Area of Debridement (cm) - Length 0.2 0.2 -Area of Debridement (cm) - Width 0.4 0.1 -Total Square (Area) (cm) 0.08 0.02 -Tunneling No No -Undermining/Tunneling No No -Circular Undermining No No -Wound/Ulcer Outcome Not Healed Not Healed -Ulcer Cleansing Rinsed/ Rinsed/ Irrigated with Irrigated with Saline Saline -Foul Odor after Cleansing No No -Bioengineered Tissue No No -Bleeding Controlled with Pressure Pressure -Treatment Response Procedure Procedure Tolerated Well Tolerated Well -Offloading Yes Yes -Type of Offloading Surgical Shoe Surgical Shoe -Debridement - Subq, 1st 20sq cm No Yes Pain Scale: 0-10 Numeric Is Patient Pain Free? Yes Yes WC - Nurse 3 - General Ulcer D/C NN Start: 03/22/22 13:20 Freq: Status: Active Protocol: Activity Type Activity Date Activity User E-sign Co-sign Detail Recorded Client Recorded Date Recorded By Document 03/22/22 13:54 [place] [id number] 03/22/22 13:54 [place] Document 04/05/22 13:43 [facility] [id number] 04/05/22 13:43 [facility] 03/22/22 04/05/22 13:54 13:43 Wound Care Nurse 3 3-left 4th toe -Ulcer Cleansing Rinsed/ Rinsed/ Irrigated with Irrigated with Saline Saline -Foul Odor after Cleansing No No -Negative Pressure Wound Therapy N/A -Primary Dressing Applied C Hydrogel ($) Other -Other Dressing hydrogel -Primary Dressing Covered/Secured with Dry Gauze, Dry Gauze, Secured with Secured with Tape Tape #1- L LATERAL FOOT -Ulcer Cleansing Rinsed/ Rinsed/ Irrigated with Irrigated with Saline Saline -Foul Odor after Cleansing No No -Negative Pressure Wound Therapy N/A -Primary Dressing Applied C Hydrogel ($) Other -Other Dressing hydrogel -Primary Dressing Covered/Secured with Dry Gauze, Dry Gauze, Secured with Secured with Tape Tape Treatment Response Procedure Tolerated Well Pain Scale: 0-10 Numeric Is Patient Pain Free? Yes Yes WC - Visit Discharge Discharge Condition Stable Ambulatory Status Ambulatory Transportation Private Auto Accompanied by Assessment/Plan Assessment/Plan (1) Delayed wound healing: CODE(S): T14.8XXD - Other injury of unspecified body region, subsequent encounter (2) Ulcer of left foot with fat layer exposed: CODE(S): L97.522 - Non-pressure chronic ulcer of other part of left foot with fat layer exposed (3) Peripheral vascular occlusive disease: CODE(S): I73.9 - Peripheral vascular disease, unspecified (4) Diabetes mellitus with neuropathy: CODE(S): E11.40 - Type 2 diabetes mellitus with diabetic neuropathy, unspecified QUALIFIERS: Diabetes mellitus correction insulin use: without long distance billing operator use Diabetes mellitus type: type 2 Qualified Code(s): E11.40 - Type 2 diabetes mellitus with diabetic neuropathy, unspecified (5) Osteomyelitis: CODE(S): M86.9 - Osteomyelitis, unspecified QUALIFIERS: Laterality: left Osteomyelitis location: foot Osteomyelitis type: unspecified type Qualified Code(s): M86.9 - Osteomyelitis, unspecified (6) Xerosis cutis: CODE(S): L85.3 - Xerosis cutis (7) Dermatitis: CODE(S): L30.9 - Dermatitis, unspecified PLAN: Plan I reviewed and discussed his plan. Debridement was performed today as noted. He was advised to change his dressing daily with hydrogel (changed from Santyl). To change his daily wash with antibacterial soap and water. To avoid soaking activities. His recent increased improvement is noted. He was previously diagnosed with osteomyelitis and underwent a fifth ray resection of the left foot at [facility] on 02-04-21. The diagnosis was confirmed with pathological acute osteomyelitis. The clearance fragment that was sent to pathology was negative for acute osteomyelitis. The clearance fragment that was sent to microbiology did not demonstrate some E. coli growth. He was discharged home from the hospital on oral Augmentin and Cipro; completed. This issue was resolved and addressed. Previous labs were reviewed. Hemoglobin A1c on 02-05-21 was 7.5%. On 01-27-21 his ESR was 38 and C-reactive protein was 14.5. On 02-06-21 his white blood cell count was 13.4. diagnostic data: Labs reviewed as WBC 8.9, esr 111, cr 2.49, GFR 27, a1c 8.3%(on 08/18/21). Xrays show fifth ray resection without soft tissue emphysema, osseous destruction , foreign body. To wear white cotton socks and to avoid socks with color dyes. I recommend application of the cotton sock prior to use of Tubigrip which is recommended for local edema. I do not recommend more aggressive edema management due to his peripheral vascular disease status. To have a dermatitis in his tried both topical triamcinolone and betamethasone. He also tried to moisturize with CeraVe a to the management of teaching pastor, Dr. Correa. He had h/o steroid injection also which helped. He has some return and I advised him to resume topical steroid for 2 weeks. I recommend continued offloading chronic wound site areas with a surgical shoe. To try to keep mostly weight on the heel. I recommend nutritional supplementation optimize healing including Neri nutritional supplement pack daily. It is also noted that his A1c is still elevated which also does not have a good healing outcome. I advised him on continued improved diabetic control. He will return to clinic in 2 weeks. He has delayed healing however he is making progressive progress with each visit. To take caution with tape application; will try medipore tape instead of paper tape this week. Note: [employer] speech recognition machine farmworker software was used to create portions of this document. Sound-alike and misspelled words, as well as other machine farmworker errors may be contained in the documentation. The medical decision making level is low. There is noted low risk of morbidity after considering this treatment plan and diagnostic data. The problems addressed require a low medical decision making level which includes two or more minor problems, a stable chronic illness, or an acute uncomplicated illness or injury.
== END 2022-04-13 23:59 | disposition home or self-care (01) ==
LOC: WC 13:15
PROVIDERS: PCP Nurse Practitioner Family; Referring Provider Family Medicine; Visit Provider Podiatrist
DX: E11.69 Type 2 diabetes mellitus with other specified complication (principal); E11.621 Type 2 diabetes mellitus with foot ulcer; E11.51 Type 2 diabetes mellitus with diabetic peripheral angiopathy without gangrene; L97.522 Non-pressure chronic ulcer of other part of left foot with fat layer exposed; M86.9 Osteomyelitis, unspecified; E11.40 Type 2 diabetes mellitus with diabetic neuropathy, unspecified; Z79.4 Long term (current) use of insulin; L85.3 Xerosis cutis; Z79.02 Long term (current) use of antithrombotics/antiplatelets; Z79.82 Long term (current) use of aspirin; Z79.899 Other long term (current) drug therapy
CPT/HCPCS: 11042

== ENCOUNTER → 2022-05-04 | Outpatient (CLI) | payer MEDICARE, SELFPAY ==
--- NOTE | 2022-05-04 08:36 | ECHOD_ITS ---
Reason For Study: s/p CABG Procedure This was a 2D Doppler, Color Flow transthoracic echocardiogram. Exam performed in department. Left Ventricle Normal LV size. The estimated ejection fraction is 40 %. Mild to moderate segmental systolic dysfunction (see wall motion). Stage 1 diastolic dysfunction. Mid-Inferior: Hypokinetic. Infero- Basal: Akinetic. Basal inferoseptal: Akinetic. Posterior-Basal: Hypokinetic. Mid-Posterior: Hypokinetic. The rest of the wall segments are normal. Right Ventricle Normal RV size. Normal systolic function. Atria Normal left atrium. Normal right atrium. Mitral Valve Normal mitral valve. Mild (1+) eccentric mitral valve insufficiency. Tricuspid Valve Normal tricuspid valve. Aortic Valve Normal aortic valve. Trisinus/trileaflet aortic valve. Pulmonic Valve Normal pulmonic valve. Great Vessels Normal aortic root. The pulmonary artery is normal size. Normal inferior vena cava. Pericardium/Pleural Small pericardial effusion. MMode/2D Measurements & Calculations LVIDd: 6.0 cm IVSd: 1.1 cm Ao root diam: 3.0 cm LVIDs: 4.4 cm LVPWd: 0.93 cm LA dimension: 4.9 cm RVDd: 3.6 cm FS: 25.9 % LAV(MOD-bp): 60.3 ml LA A4 area: 19.1 cm2 RA A4 area: 13.0 cm2 LAV(MOD-bp) Indexed: 38.8 ml/m2 LAV(MOD-sp2): 59.4 ml LAV(MOD-sp4): 61.0 ml Time Measurements MV dec time: 0.20 sec Doppler Measurements & Calculations MV E max allyson: 57.6 cm/sec MV V2 max: 89.8 cm/sec MV P1/2t max allyson: 52.0 cm/sec MV A max allyson: 81.1 cm/sec MV max P.2 mmHg MV P1/2t: 58.1 msec MV E/A: 0.71 MV V2 mean: 41.4 cm/sec MV dec slope: 262.3 cm/sec2 MV mean P.85 mmHg MVA(P1/2t): 3.8 cm2 MV V2 VTI: 25.3 cm Ao V2 max: 111.8 cm/sec LV V1 max: 73.5 cm/sec MR max allyson: 468.4 cm/sec Ao max P.0 mmHg LV V1 max P.2 mmHg MR max P.8 mmHg MR mean allyson: 358.4 cm/sec MR mean P.8 mmHg MR VTI: 166.0 cm PA V2 max: 90.6 cm/sec ECHO/Echo Complete Interpretation Summary Normal LV size. The estimated ejection fraction is 40 %. Mild to moderate segmental systolic dysfunction (see wall motion). Mild (1+) eccentric mitral valve insufficiency. Stage 1 diastolic dysfunction. Compared to previous study, the left ventricular systolic function has improved .. Ordering Physician: Napoleon Zabala Referring Physician: Ayala Flores Performed By: Navi Gilliam RCS
== END | disposition home or self-care (01) ==
PROVIDERS: PCP Nurse Practitioner Family; Referring Provider Internal Medicine Cardiovascular Disease; Visit Provider Internal Medicine Cardiovascular Disease
DX: I25.810 Atherosclerosis of coronary artery bypass graft(s) without angina pectoris (principal); Z95.1 Presence of aortocoronary bypass graft
CPT/HCPCS: 93306

== ENCOUNTER 2022-05-10 14:45 | Outpatient (RCR) | payer MEDICARE, SELFPAY ==
[2022-04-14 00:27] VITALS: BP 126/52; PULSE 70; RESP 18; TEMP 36.7; BMI 23.6
[2022-04-19 12:59] VITALS: BP 150/60; PULSE 71; RESP 16; TEMP 36.1; BMI 23.6
--- NOTE | 2022-04-19 13:30 | PCM.WC.PN ---
History of Present Illness Date of Service: 04/19/22 Chief Complaint: Left foot ulcer History of Wound: This 76-year-old male was seen for left foot ulcer return to the wound healing center today. He had recent lower extremity vascular successful intervention performed with Dr. Bowens. It is noted he has a low ejection fraction and also small vessel disease is suspected. He had a fifth ray resection of the left foot at [facility] on 02/04/2021 for treatment of non-healing ulcer and osteomyelitis. He has been changing the dressing as advised with hydrogel. He is with his today. He denies pain today. He reports resolved erythema and decreased skin peeling. They report scant drainage on the dressings. His applies both CeraVe and a steroid cream at the same time once daily in the evening. They are not able to follow-up in clinic next week. Progress of Wound: Healed left fourth toe Stable left foot ulcer Objective Data Objective Data Vital Signs: Vital Signs Temp Pulse Resp BP O2 Del Method 97 F L 71 16 150/60 H Room Air 04/19/22 12:59 04/19/22 12:59 04/19/22 12:59 04/19/22 12:59 04/19/22 12:59 Oxygen Delivery Method Room Air Weight: 60.781 kg Body Mass Index (BMI) 23.6 Physical Exam Extremity Extremity Narrative: No calf tenderness Diminished pulses Muscle wasting noted Skin Skin Narrative: no purulence, no streaking, no odor. atrophic and hairless skin. fibrous ulcer base with some granulation tissue noted to lateral foot reopened x 1; decreased sizes. now with exposed firm bone. dorsal ashley ulcer inflammation with dry skin and resolved erythema. No adjacent bogginess or fluctuance or william necrosis. The fourth toe ulcer has healed with full epithelialization and no drainage. Dry skin noted ashley Ulcer Neuro Neuro Narrative: lack of normal epicritic sensation via light touch is consistent with neuropathy status Debridement Note Debridement Note Wound debrided: left lateral foot Wound Grade/Stage: 2 Type of Debridement: Excisional debridement Anesthesia Used: 4% Lidocaine Solution Depth: in the subcutaneous layer Percentage of wound debrided: 100 Instrument Used: #15 blade Tissue Removed: fibrous, devitalized subcutaneous, biofilm, slough Severity: Fat Layer Exposed Amount of bleeding with debridement: Mild Bleeding Controlled with: Pressure Patient tolerated procedure: Patient tolerated procedure well Post-Debridement Measurements and Additional Note: Post-Debridement Measurements/Treatment WC - Nurse 1 - General Ulcer Assessment Start: 04/19/22 12:59 Freq: Status: Active Protocol: JV Activity Type Activity Date Activity User E-sign Co-sign Detail Recorded Client Recorded Date Recorded By Document 04/19/22 12:59 [facility] [id number] 04/19/22 13:01 [facility] 04/19/22 12:59 WC - Today's Visit Information Type of service Follow-up Visit (Physician/[employer] ) Arrival Mode Ambulatory Transfer Assistance None Patient Identification Verified (Name & Yes ) Height and Weight Body Mass Index (BMI) 23.6 BMI Classification Normal Vital Signs Temperature (97.8 F-99.1 F) 97 F L Temperature Source Temporal Pulse Rate (60-100) 71 Pulse Location Monitor Respiratory Rate (12-18) 16 Respiratory rate source Observation Oxygen Delivery Method Room Air Blood Pressure (90/60-120/80) 150/60 H Blood Pressure Mean (mm Hg) 90 Source Monitor Position Sitting Blood Pressure Location Left Arm History Since Last Visit- (Skip if this is Patient's initial visit) Have you changed medications since your No last visit? Any new allergies or adverse reactions No Had a fall/change in ADL's that may No increase risk of falls Signs or symptoms of abuse and/or No neglect since last visit Have you been in the hospital since your No last visit? Has dressing in place as prescribed Yes Has compression in place as prescribed N/A Has offloadiing in place as prescribed Yes Experienced any changes in pain level or No management Left Footwear Surgical Shoe with pressure relief insole Right Footwear Regular Shoe Pain Scale: 0-10 Numeric Is Patient Pain Free? Yes - Nurse 1 - General Ulcer Measurement Start: 04/19/22 12:59 Freq: Status: Active Protocol: Activity Type Activity Date Activity User E-sign Co-sign Detail Recorded Client Recorded Date Recorded By Document 04/19/22 12:59 [facility] [id number] 04/19/22 13:01 [facility] 04/19/22 12:59 Wound Center Nurse 1 3-left 4th toe -Combined with other wound No -Current Size (cm) - Length 0.1 -Current Size (cm) - Width 0.1 -Current Size (cm) - Depth 0.1 -Total Square Cm 0.01 -Date of Last Picture (Recall this 04/19/22 field) -Photo Taken Yes -Epithelialization Large 67-100% #1- L LATERAL FOOT -Current Size (cm) - Length 0.1 -Current Size (cm) - Width 0.1 -Current Size (cm) - Depth 0.1 -Total Square Cm 0.01 -Date of Last Picture (Recall this 04/19/22 field) -Photo Taken Yes -Epithelialization Large 67-100% Assessment/Plan Assessment/Plan (1) Delayed wound healing: CODE(S): T14.8XXD - Other injury of unspecified body region, subsequent encounter (2) Ulcer of left foot with fat layer exposed: CODE(S): L97.522 - Non-pressure chronic ulcer of other part of left foot with fat layer exposed PLAN: healed 4th toe (3) Peripheral vascular occlusive disease: CODE(S): I73.9 - Peripheral vascular disease, unspecified (4) Diabetes mellitus with neuropathy: CODE(S): E11.40 - Type 2 diabetes mellitus with diabetic neuropathy, unspecified QUALIFIERS: Diabetes mellitus type: type 2 Diabetes mellitus mcfp insulin use: without mcfp use Qualified Code(s): E11.40 - Type 2 diabetes mellitus with diabetic neuropathy, unspecified (5) Osteomyelitis: CODE(S): M86.9 - Osteomyelitis, unspecified QUALIFIERS: Osteomyelitis type: unspecified type Osteomyelitis location: foot Laterality: left Qualified Code(s): M86.9 - Osteomyelitis, unspecified (6) Xerosis cutis: CODE(S): L85.3 - Xerosis cutis (7) Dermatitis: CODE(S): L30.9 - Dermatitis, unspecified (8) Chronic ulcer of left foot with necrosis of bone: CODE(S): L97.524 - Non-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 PLAN: Plan I reviewed and discussed his plan. Debridement was performed today as noted. The toe ulcer is healed. It is noted that there is exposed probe to bone on the lateral foot ulcer site and this is firm. Additional debridement next office visit including potential bone excision will be considered after the x-rays are reviewed and clinical assessment performed. He was advised to change his dressing daily with hydrogel (changed from Santyl). To change his daily wash with antibacterial soap and water. To avoid soaking activities. His recent increased improvement is noted. He was previously diagnosed with osteomyelitis and underwent a fifth ray resection of the left foot at [facility] on 02-04-21. The diagnosis was confirmed with pathological acute osteomyelitis. The clearance fragment that was sent to pathology was negative for acute osteomyelitis. The clearance fragment that was sent to microbiology did not demonstrate some E. coli growth. He was discharged home from the hospital on oral Augmentin and Cipro; completed. This issue was resolved and addressed. Previous labs were reviewed. Hemoglobin A1c on 02-05-21 was 7.5%. On 01-27-21 his ESR was 38 and C-reactive protein was 14.5. On 02-06-21 his white blood cell count was 13.4. diagnostic data: Labs reviewed as WBC 8.9, esr 111, cr 2.49, GFR 27, a1c 8.3%(on 08/18/21). Xrays show fifth ray resection without soft tissue emphysema, osseous destruction , foreign body. Due to status change and updated foot x-ray was ordered and he is going to try to get this today. To wear white cotton socks and to avoid socks with color dyes. I recommend application of the cotton sock prior to use of Tubigrip which is recommended for local edema. I do not recommend more aggressive edema management due to his peripheral vascular disease status. To have a dermatitis in his tried both topical triamcinolone and betamethasone. He also tried to moisturize with CeraVe a to the management of microsoft net developer, Dr. Corrae. He had h/o steroid injection also which helped. He has some return and I advised him to resume topical steroid for 2 weeks. He will apply steroid cream for 2 weeks and he can discontinue at this time. I do recommend that he applies the moisturizing lotion 1-2 times daily I recommend continued offloading chronic wound site areas with a surgical shoe. To try to keep mostly weight on the heel. I recommend nutritional supplementation optimize healing including Neri nutritional supplement pack daily. It is also noted that his A1c is still elevated which also does not have a good healing outcome. I advised him on continued improved diabetic control. He will return to clinic in 1 - 2 weeks. He has delayed healing however he is making progressive progress with each visit. Note: [employer] speech recognition medical supervisor software was used to create portions of this document. Sound-alike and misspelled words, as well as other medical supervisor errors may be contained in the documentation. The medical decision making level is low. There is noted low risk of morbidity after considering this treatment plan and diagnostic data. The problems addressed require a low medical decision making level which includes two or more minor problems, a stable chronic illness, or an acute uncomplicated illness or injury.
--- NOTE | 2022-04-19 13:47 | RAD_ITS ---
STUDY: X-RAY - LEFT FOOT CLINICAL: Male, 76 years old. ULCER TECHNIQUE: 3 view(s) of the foot. COMPARISON: Comparison is made with prior study dated 08/24/2021. FINDINGS: There is an enthesophyte involving the posterior superior calcaneus at the site of insertion of the Achilles tendon. Small plantar spur. Normal visualized subtalar, talonavicular, calcaneocuboid, tarsal and tarsometatarsal articulations. The patient is status post amputation of the fifth metatarsal and fifth toe. Normal metatarsophalangeal joint of the great toe. There is a bipartite tibial sesamoid. Normal interphalangeal joint of the great toe. Normal phalanges of the great toe. Normal second through fifth metatarsophalangeal joints. Normal interphalangeal joints and phalanges of the lesser toes. Vascular calcification. RAD/Foot min 3 Views IMPRESSION: Soft tissue swelling. 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 Electronically Signed: Raheel Ortega MD at 10:23 EDT ,
--- NOTE | 2022-05-03 | BON_PTH ---
PATIENT: TAM BUSTOS LOC: U#:[id number] AGE/SX: 76/M ROOM: RE05/10/[address]: Dr. Aleyda Mandujano DPM : 1945 BED: DIS: 05/14/2022 SPEC #: [id number] RECD: 05/03/22 13:50 STATUS: TYRONE YOLANDA #: [id number] BRITTANY: 05/03/22 00:[address]: Aleyda Mandujano DEPT: SURGICAL PATHOLOGY RECD BY: Wilfredo Muñoz ENTERED: 05/04/22 09:36 SP TYPE: Bone OTHR DR: Ayala Flores, EXECUTIVE PRODUCER-C Tissues: Bone of foot, NOS Procedures: Decalcification bone/plaque Surgery Specimen Level V HEADER OPERATION: Bone biopsy left foot PRE-OP DIAGNOSIS: Osteomyelitis vs chronic wound TISSUE SUBMITTED: Bone left foot MICROSCOPIC DIAGNOSIS Bone of left foot, bone biopsy: Acute osteomyelitis. Fragments of skin with parakeratosis. AM:prudence 05/05/2022 MICROSCOPIC DESCRIPTION Slides are reviewed. GROSS DESCRIPTION Received in fixative is one container labeled with the patient's name and designated left foot. The specimen consists of an irregular fragment of nathan bone measuring 0.8 x 0.5 x 0.1 cm. The specimen is totally submitted in one cassette after decalcification. / AM:prudence 05/04/2022 TC:2 CPT: 71477, 70239
[2022-05-03 13:05] VITALS: BP 127/59; PULSE 74; RESP 16; TEMP 36.4; BMI 23.6
--- NOTE | 2022-05-03 15:11 | PN.PCM_ITS ---
History of Present Illness Date of Service: 05/03/22 Chief Complaint: Left foot ulcer History of Wound: This 76-year-old male was seen for left foot ulcer return to the wound healing center today. He had recent lower extremity vascular successful intervention performed with Dr. Bowens. It is noted he has a low ejection fraction and also small vessel disease is suspected. He had a fifth ray resection of the left foot at [facility] on 02/04/2021 for treatment of non-healing ulcer and osteomyelitis. He has been changing the dressing as advised with hydrogel. He is with his today. He denies pain today. He reports resolved erythema and decreased skin peeling. Progress of Wound: Stable left foot Objective Data Objective Data Vital Signs: Vital Signs Temp Pulse Resp BP O2 Del Method 97.6 F L 74 16 127/59 H Room Air 05/03/22 13:05 05/03/22 13:05 05/03/22 13:05 05/03/22 13:05 05/03/22 13:05 Oxygen Delivery Method Room Air Weight: 60.781 kg Body Mass Index (BMI) 23.6 Physical Exam Extremity Extremity Narrative: No calf tenderness Diminished pulses Muscle wasting noted Skin Skin Narrative: no purulence, no streaking, no odor. atrophic and hairless skin. fibrous ulcer base with some granulation tissue noted to lateral foot reopened x 1. now with exposed firm bone. dorsal kasia ulcer inflammation with dry skin and resolved erythema. No adjacent bogginess or fluctuance or william necrosis. The fourth toe ulcer has healed with full epithelialization and no drainage. Dry skin noted kasia Ulcer Neuro Neuro Narrative: lack of normal epicritic sensation via light touch is consistent with neuropathy status Debridement Note Debridement Note Wound debrided: left lateral foot Wound Grade/Stage: 2 Type of Debridement: Excisional debridement Anesthesia Used: 4% Lidocaine Solution Depth: to bone Percentage of wound debrided: 100 Instrument Used: #15 blade and - (ronguer) Tissue Removed: fibrous, devitalized subcutaneous, biofilm, slough, bone Severity: Necrosis of Bone Amount of bleeding with debridement: Mild Bleeding Controlled with: Pressure Patient tolerated procedure: Patient tolerated procedure well Post-Debridement Measurements and Additional Note: Post-Debridement Measurements/Treatment ALFREDO - Nurse 1 - General Ulcer Assessment Start: 04/19/22 12:59 Freq: Status: Active Protocol: JV Activity Type Activity Date Activity User E-sign Co-sign Detail Recorded Client Recorded Date Recorded By Document 04/19/22 12:59 [facility] [id number] 04/19/22 13:01 [facility] Document 05/03/22 13:05 [facility] [id number] 05/03/22 13:09 [facility] 04/19/22 05/03/22 12:59 13:05 - Today's Visit Information Type of service Follow-up Visit Follow-up Visit (Physician/SVP DIGITAL SALES (Physician/SVP D[employer]ITAL SALES ) ) Arrival Mode Ambulatory Ambulatory Transfer Assistance None None Accompanied by Patient Identification Verified (Name & Yes Yes ) Patient Requires Transmission-Based No Precautions Height and Weight Body Mass Index (BMI) 23.6 23.6 BMI Classification Normal Normal Vital Signs Temperature (97.8 F-99.1 F) 97 F L 97.6 F L Temperature Source Temporal Temporal Pulse Rate (60-100) 71 74 Pulse Location Monitor Monitor Respiratory Rate (12-18) 16 16 Respiratory rate source Observation Observation Oxygen Delivery Method Room Air Room Air Blood Pressure (90/60-120/80) 150/60 H 127/59 H Blood Pressure Mean (mm Hg) 90 81 Source Monitor Monitor Position Sitting Sitting Blood Pressure Location Left Arm Left Arm History Since Last Visit- (Skip if this is Patient's initial visit) Have you changed medications since your No No last visit? Any new allergies or adverse reactions No No Had a fall/change in ADL's that may No No increase risk of falls Signs or symptoms of abuse and/or No No neglect since last visit Have you been in the hospital since your No No last visit? Has dressing in place as prescribed Yes No Has compression in place as prescribed N/A N/A Has offloadiing in place as prescribed Yes Yes Experienced any changes in pain level or No No management Left Footwear Surgical Shoe Surgical Shoe with pressure with pressure relief insole relief insole Right Footwear Regular Shoe Regular Shoe Pain Scale: 0-10 Numeric Is Patient Pain Free? Yes Yes - Nurse 1 - General Ulcer Measurement Start: 04/19/22 12:59 Freq: Status: Active Protocol: Activity Type Activity Date Activity User E-sign Co-sign Detail Recorded Client Recorded Date Recorded By Document 04/19/22 12:59 [facility] [id number] 04/19/22 13:01 [facility] Document 05/03/22 13:05 [facility] [id number] 05/03/22 13:09 [facility] 04/19/22 05/03/22 12:59 13:05 Wound Center Nurse 1 3-left 4th toe -Combined with other wound No -Current Size (cm) - Length 0.1 -Current Size (cm) - Width 0.1 -Current Size (cm) - Depth 0.1 -Total Square Cm 0.01 -Date of Last Picture (Recall this 04/19/22 field) -Photo Taken Yes -Epithelialization Large 67-100% #1- L LATERAL FOOT -Combined with other wound No -Current Size (cm) - Length 0.1 0.1 -Current Size (cm) - Width 0.1 0.1 -Current Size (cm) - Depth 0.1 0.1 -Total Square Cm 0.01 0.01 -Date of Last Picture (Recall this 04/19/22 05/03/22 field) -Photo Taken Yes Yes -Epithelialization Large 67-100% Large 67-100% -Tunneling No -Undermining/Tunneling No -Circular Undermining No -Exudate Amt None Present -Wound Margin Distinct, Outline Attached -Granulation Amt None Present (0 %) -Slough/Fibrin Yes -Necrosis Amt Small (1-33%) -Necrotic Tissue Type Eschar -Texture (Kasia-wound Skin Appearance) Assessed, Scarring -Moisture (Kasia-wound Skin Appearance) Assessed,Dry/ Scaly -Color (Kasia-wound Skin Appearance) Assessed -Temperature (Kasia-wound Skin No Abnormality Appearance) (Pt Warm) -Tenderness on Palpation (Kasia-wound No Skin Appearance) -Ulcer Cleansing Rinsed/ Irrigated with Saline -Foul Odor after Cleansing No -Anesthetic Used 5% Lidocaine Gel WC - Nurse 2 - General Ulcer CM Notes Start: 04/19/22 12:59 Freq: Status: Active Protocol: Activity Type Activity Date Activity User E-sign Co-sign Detail Recorded Client Recorded Date Recorded By Document 04/19/22 13:41 PL [id number] 04/19/22 13:42 PL Document 05/03/22 13:50 PL [id number] 05/03/22 13:51 PL 04/19/22 05/03/22 13:41 13:50 Wound Center Nurse 2 #1- L LATERAL FOOT -Time 13:18 13:21 -Correct Patient Yes Yes -Correct Side, Site, Position Yes Yes -Correct Procedure Yes Yes -Procedure Performed Yes Yes -Type of Procedure Debridement Debridement -Clinical Debridement Subcutaneous Bone -Tissue Removed Subcutaneous Subcutaneous, Muscle -Post Debridement (cm) - Length 0.1 0.5 -Post Debridement (cm) - Width 0.1 0.5 -Post Debridement (cm) - Depth 0.1 0.4 -Total Square (Post) (cm) 0.01 0.25 -Area of Debridement (cm) - Length 0.1 0.5 -Area of Debridement (cm) - Width 0.1 0.5 -Total Square (Area) (cm) 0.01 0.25 -Tunneling No No -Undermining/Tunneling No No -Circular Undermining No No -Wound/Ulcer Outcome Not Healed Not Healed -Ulcer Cleansing Rinsed/ Rinsed/ Irrigated with Irrigated with Saline Saline -Foul Odor after Cleansing No No -Bioengineered Tissue No No -Bleeding Controlled with Pressure -Treatment Response Procedure Tolerated Well -Debridement - Subq, 1st 20sq cm Yes -Debridement - Bone, 1st 20sq cm Yes Pain Scale: 0-10 Numeric Is Patient Pain Free? Yes Yes - Nurse 3 - General Ulcer D/C NN Start: 04/19/22 12:59 Freq: Status: Active Protocol: Activity Type Activity Date Activity User E-sign Co-sign Detail Recorded Client Recorded Date Recorded By Document 04/19/22 13:37 [facility] [id number] 04/19/22 13:37 [facility] Document 05/03/22 13:50 [id number] 05/03/22 13:51 04/19/22 05/03/22 13:37 13:50 Wound Care Nurse 3 #1- L LATERAL FOOT -Ulcer Cleansing Rinsed/ Irrigated with Saline -Foul Odor after Cleansing No -Primary Dressing Applied Other Aquacel AG 4x4 -Other Dressing hydrogel abd -Primary Dressing Covered/Secured with Dry Gauze, Dry Gauze,Dry Secured with Gauze & Roll Tape Gauze,Secured with Tape -Aquacel AG 4x4 1 Treatment Response Procedure Procedure Tolerated Well Tolerated Well Pain Scale: 0-10 Numeric Is Patient Pain Free? Yes Yes - Visit Discharge Discharge Condition Stable Stable Ambulatory Status Ambulatory Ambulatory Transportation Private Auto Private Auto Accompanied by Medication Reconcilliation completed & No provided to patient/care provider Clinical Summary of Care Provided 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 PLAN: healed 4th toe (3) Peripheral vascular occlusive disease: CODE(S): I73.9 - Peripheral vascular disease, unspecified (4) Diabetes mellitus with neuropathy: CODE(S): E11.40 - Type 2 diabetes mellitus with diabetic neuropathy, unspecified QUALIFIERS: Diabetes mellitus watermelon harvesting supervisor insulin use: without watermelon harvesting supervisor use Diabetes mellitus type: type 2 Qualified Code(s): E11.40 - Type 2 diabetes mellitus with diabetic neuropathy, unspecified (5) Osteomyelitis: CODE(S): M86.9 - Osteomyelitis, unspecified QUALIFIERS: Laterality: left Osteomyelitis location: foot Osteomyelitis type: unspecified type Qualified Code(s): M86.9 - Osteomyelitis, unspecified (6) Xerosis cutis: CODE(S): L85.3 - Xerosis cutis PLAN: improved (7) Dermatitis: CODE(S): L30.9 - Dermatitis, unspecified PLAN: improved (8) Chronic ulcer of left foot with necrosis of bone: CODE(S): L97.524 - Non-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 PLAN: Plan I reviewed and discussed his plan. Debridement was performed today as noted. The toe ulcer is healed. It is noted that there is exposed probe to bone on the lateral foot ulcer site and this is firm. Verbal consent was obtained to perform debridement under local anesthetic, 2% lidocaine plain was injected with local infiltration of 2 cc. The bone that was debrided was sent to microbiology pathology to confirm if there is any pathogenic bacterial growth. He was advised to change his dressing daily with [employer]. To change his daily wash with antibacterial soap and water. To avoid soaking activities. His recent increased improvement is noted. He was previously diagnosed with osteomyelitis and underwent a fifth ray resection of the left foot at [facility] on 02-04-21. The diagnosis was confirmed with pathological acute osteomyelitis. The clearance fragment that was sent to pathology was negative for acute osteomyelitis. The clearance fragment that was sent to microbiology did not demonstrate some E. coli growth. He was discharged home from the hospital on oral Augmentin and Cipro; completed. This issue was resolved and addressed. Previous labs were reviewed. Hemoglobin A1c on 02-05-21 was 7.5%. On 01-27-21 his ESR was 38 and C- reactive protein was 14.5. On 02-06-21 his white blood cell count was 13.4. diagnostic data: Labs reviewed as WBC 8.9, esr 111, cr 2.49, GFR 27, a1c 8.3%(on 08/18/21). Xrays show fifth ray resection without soft tissue emphysema, osseous destruction , foreign body. To wear white cotton socks and to avoid socks with color dyes. I recommend application of the cotton sock prior to use of Tubigrip which is recommended for local edema. I do not recommend more aggressive edema management due to his peripheral vascular disease status. To have a dermatitis in his tried both topical triamcinolone and betamethasone. He also tried to moisturize with CeraVe a to the management of market garden worker, Dr. Correa. He had h/o steroid injection also which helped. He has some return and I advised him to resume topical steroid for 2 weeks. He will apply steroid cream for 2 weeks and he can discontinue at this time. I do recommend that he applies the moisturizing lotion 1-2 times daily. This has resolved and this will be monitored. I recommend continued offloading chronic wound site areas with a surgical shoe. To try to keep mostly weight on the heel. I recommend nutritional supplementation optimize healing including Neri nutritional supplement pack daily. It is also noted that his A1c is still elevated which also does not have a good healing outcome. I advised him on continued improved diabetic control. He will return to clinic in 1 weeks. He has delayed healing however he is making progressive progress with each visit. Note: [employer] speech recognition process helper software was used to create portions of this document. Sound-alike and misspelled words, as well as other process helper errors may be contained in the documentation. The medical decision making level is low. There is noted low risk of morbidity after considering this treatment plan and diagnostic data. The problems addressed require a low medical decision making level which includes two or more minor problems, a stable chronic illness, or an acute uncomplicated illness or injury.
[2022-05-10 14:44] VITALS: BP 151/71; PULSE 72; RESP 18; TEMP 36.2; BMI 23.6
--- NOTE | 2022-05-10 15:40 | PCM.WC.PN ---
History of Present Illness Date of Service: 05/10/22 Chief Complaint: Left foot ulcer History of Wound: This 76-year-old male was seen for left foot ulcer return to the wound healing center today. He had recent lower extremity vascular successful intervention performed with Dr. Bowens. It is noted he has a low ejection fraction and also small vessel disease is suspected. He had a fifth ray resection of the left foot at [facility] on 02/04/2021 for treatment of non-healing ulcer and osteomyelitis. He has been changing the dressing as advised with hydrogel. He is with his today. He denies pain today. He reports resolved erythema and decreased skin peeling. He had a bone biopsy performed last week and would like to go over the treatment options due to his acute osteomyelitis finding. Progress of Wound: Stable left foot, updated diagnosis of osteomyelitis of the remaining fifth metatarsal Objective Data Objective Data Vital Signs: Vital Signs Temp Pulse Resp BP O2 Del Method 97.1 F L 72 18 151/71 H Room Air 05/10/22 14:44 05/10/22 14:44 05/10/22 14:44 05/10/22 14:44 05/03/22 13:05 Oxygen Delivery Method Room Air Weight: 60.781 kg Body Mass Index (BMI) 23.6 Lab / Micro Data Micro: Microbiology 05/03/22 13:30 Bone - Left Foot Gram Stain - Final 05/03/22 13:30 Bone - Left Foot Wound Culture - Final Strep anginosus 05/03/22 13:30 Bone - Left Foot Anaerobic Culture - Final Anaerobic cocci Physical Exam Extremity Extremity Narrative: No calf tenderness Diminished pulses Muscle wasting noted Skin Skin Narrative: no purulence, no streaking, no odor. atrophic and hairless skin. granular and fibrous ulcer at proximal most aspect of prior surgical site (remote) now with exposed firm bone (site of recent biopsy). dorsal kasia ulcer inflammation with dry skin and resolved erythema. No adjacent bogginess or fluctuance or william necrosis. The fourth toe ulcer has healed with full epithelialization and no drainage. Dry skin noted kasia Ulcer Neuro Neuro Narrative: lack of normal epicritic sensation via light touch is consistent with neuropathy status Debridement Note Debridement Note Wound debrided: left lateral foot Wound Grade/Stage: 3 Type of Debridement: Excisional debridement Anesthesia Used: 4% Lidocaine Solution Depth: to bone Percentage of wound debrided: 100 Instrument Used: #15 blade and - (ronguer) Tissue Removed: fibrous, devitalized subcutaneous, biofilm, slough, bone Severity: Necrosis of Bone Amount of bleeding with debridement: Mild Bleeding Controlled with: Pressure Patient tolerated procedure: Patient tolerated procedure well Post-Debridement Measurements and Additional Note: Post-Debridement Measurements/Treatment - Nurse 1 - General Ulcer Assessment Start: 04/19/22 12:59 Freq: Status: Active Protocol: JV Activity Type Activity Date Activity User E-sign Co-sign Detail Recorded Client Recorded Date Recorded By Document 04/19/22 12:59 [facility] [id number] 04/19/22 13:01 [facility] Document 05/03/22 13:05 [facility] [id number] 05/03/22 13:09 [facility] Document 05/10/22 14:44 DL [id number] 05/10/22 14:49 DL Edit Result 05/10/22 14:44 DL (1) [id number] 05/10/22 14:52 DL (1) Blood Pressure (90/60-120/80) 143/93 H => 151/71 H Blood Pressure Mean (mm Hg) 109 => 97 04/19/22 05/03/22 05/10/22 12:59 13:05 14:44 - Today's Visit Information Type of service Follow-up Visit Follow-up Visit Follow-up Visit (Physician/METAL EXPEDITER (Physician/METAL EXPEDITER (Physician/METAL EXPEDITER ) ) ) Arrival Mode Ambulatory Ambulatory Ambulatory Transfer Assistance None None None Accompanied by Patient Identification Verified (Name & Yes Yes Yes ) Patient Requires Transmission-Based No No Precautions Finger Stick Blood Sugar(mg/dl) (if 116 indicated): Blood Sugar Stated by Patient Height and Weight Body Mass Index (BMI) 23.6 23.6 23.6 BMI Classification Normal Normal Normal Vital Signs Temperature (97.8 F-99.1 F) 97 F L 97.6 F L 97.1 F L Temperature Source Temporal Temporal Temporal Pulse Rate (60-100) 71 74 72 Pulse Location Monitor Monitor Monitor Respiratory Rate (12-18) 16 16 18 Respiratory rate source Observation Observation Observation Oxygen Delivery Method Room Air Room Air Blood Pressure (90/60-120/80) 150/60 H 127/59 H 151/71 H Blood Pressure Mean (mm Hg) 90 81 97 Source Monitor Monitor Monitor Position Sitting Sitting Blood Pressure Location Left Arm Left Arm History Since Last Visit- (Skip if this is Patient's initial visit) Have you changed medications since your No No No last visit? Any new allergies or adverse reactions No No No Had a fall/change in ADL's that may No No No increase risk of falls Signs or symptoms of abuse and/or No No No neglect since last visit Have you been in the hospital since your No No No last visit? Has dressing in place as prescribed Yes No Yes Has compression in place as prescribed N/A N/A Has offloadiing in place as prescribed Yes Yes Experienced any changes in pain level or No No No management Left Footwear Surgical Shoe Surgical Shoe with pressure with pressure relief insole relief insole Right Footwear Regular Shoe Regular Shoe Pain Scale: 0-10 Numeric Is Patient Pain Free? Yes Yes Yes WC - Nurse 1 - General Ulcer Measurement Start: 04/19/22 12:59 Freq: Status: Active Protocol: Activity Type Activity Date Activity User E-sign Co-sign Detail Recorded Client Recorded Date Recorded By Document 04/19/22 12:59 [facility] [id number] 04/19/22 13:01 [facility] Document 05/03/22 13:05 [facility] [id number] 05/03/22 13:09 [facility] Document 05/10/22 14:44 DL [id number] 05/10/22 14:49 DL 04/19/22 05/03/22 05/10/22 12:59 13:05 14:44 Wound Center Nurse 1 3-left 4th toe -Combined with other wound No -Current Size (cm) - Length 0.1 -Current Size (cm) - Width 0.1 -Current Size (cm) - Depth 0.1 -Total Square Cm 0.01 -Date of Last Picture (Recall this 04/19/22 field) -Photo Taken Yes -Epithelialization Large 67-100% #1- L LATERAL FOOT -Combined with other wound No -Current Size (cm) - Length 0.1 0.1 0.7 -Current Size (cm) - Width 0.1 0.1 0.3 -Current Size (cm) - Depth 0.1 0.1 0.3 -Total Square Cm 0.01 0.01 0.21 -Date of Last Picture (Recall this 04/19/22 05/03/22 field) -Photo Taken Yes Yes No -Epithelialization Large 67-100% Large 67-100% -Tunneling No -Undermining/Tunneling No -Circular Undermining No -Exudate Amt None Present Small -Wound Margin Distinct, Distinct, Outline Outline Attached Attached -Granulation Amt None Present (0 Small (1-33%) %) -Granulation Quality [place] -Slough/Fibrin Yes -Necrosis Amt Small (1-33%) Small (1-33%) -Necrotic Tissue Type Eschar Adherent Slough -Structure Exposed N/A -Texture (Kasia-wound Skin Appearance) Assessed, Scarring Scarring -Moisture (Kasia-wound Skin Appearance) Assessed,Dry/ No Abnormality Scaly -Color (Kasia-wound Skin Appearance) Assessed Erythema -Temperature (Kasia-wound Skin No Abnormality No Abnormality Appearance) (Pt Warm) (Pt Warm) -Tenderness on Palpation (Kasia-wound No No Skin Appearance) -Ulcer Cleansing Rinsed/ Rinsed/ Irrigated with Irrigated with Saline Saline -Foul Odor after Cleansing No No -Anesthetic Used 5% Lidocaine 5% Lidocaine Gel Gel WC - Nurse 2 - General Ulcer CM Notes Start: 04/19/22 12:59 Freq: Status: Active Protocol: Activity Type Activity Date Activity User E-sign Co-sign Detail Recorded Client Recorded Date Recorded By Document 04/19/22 13:41 PL [id number] 04/19/22 13:42 PL Document 05/03/22 13:50 PL [id number] 05/03/22 13:51 PL Document 05/10/22 15:05 [id number] 05/10/22 15:08 04/19/22 05/03/22 05/10/22 13:41 13:50 15:05 Wound Center Nurse 2 #1- L LATERAL FOOT -Time 13:18 13:21 15:07 -Correct Patient Yes Yes Yes -Correct Side, Site, Position Yes Yes Yes -Correct Procedure Yes Yes Yes -Procedure Performed Yes Yes Yes -Type of Procedure Debridement Debridement Debridement -Clinical Debridement Subcutaneous Bone Subcutaneous -Tissue Removed Subcutaneous Subcutaneous, Subcutaneous Muscle -Post Debridement (cm) - Length 0.1 0.5 0.8 -Post Debridement (cm) - Width 0.1 0.5 0.3 -Post Debridement (cm) - Depth 0.1 0.4 0.2 -Total Square (Post) (cm) 0.01 0.25 0.24 -Area of Debridement (cm) - Length 0.1 0.5 0.8 -Area of Debridement (cm) - Width 0.1 0.5 0.3 -Total Square (Area) (cm) 0.01 0.25 0.24 -Tunneling No No No -Undermining/Tunneling No No No -Circular Undermining No No No -Wound/Ulcer Outcome Not Healed Not Healed Not Healed -Ulcer Cleansing Rinsed/ Rinsed/ Rinsed/ Irrigated with Irrigated with Irrigated with Saline Saline Saline -Foul Odor after Cleansing No No No -Bioengineered Tissue No No No -Bleeding Controlled with Pressure Pressure -Treatment Response Procedure Procedure Tolerated Well Tolerated Well -Offloading Yes -Type of Offloading Surgical Shoe -Debridement - Subq, 1st 20sq cm Yes Yes -Debridement - Bone, 1st 20sq cm Yes Pain Scale: 0-10 Numeric Is Patient Pain Free? Yes Yes Yes - Nurse 3 - General Ulcer D/C NN Start: 04/19/22 12:59 Freq: Status: Active Protocol: Activity Type Activity Date Activity User E-sign Co-sign Detail Recorded Client Recorded Date Recorded By Document 04/19/22 13:37 [facility] [id number] 04/19/22 13:37 [facility] Document 05/03/22 13:50 RB [id number] 05/03/22 13:51 RB Document 05/10/22 15:30 DL [id number] 05/10/22 15:31 DL 04/19/22 05/03/22 05/10/22 13:37 13:50 15:30 Wound Care Nurse 3 #1- L LATERAL FOOT -Ulcer Cleansing Rinsed/ Rinsed/ Irrigated with Irrigated with Saline Saline -Foul Odor after Cleansing No No -Primary Dressing Applied Other Aquacel AG 4x4 Aquacel AG 2x2 -Other Dressing hydrogel abd -Primary Dressing Covered/Secured with Dry Gauze, Dry Gauze,Dry Dry Gauze, Secured with Gauze & Roll Secured with Tape Gauze,Secured Tape with Tape -Aquacel AG 4x4 1 -Aquacel AG 2x2 1 Treatment Response Procedure Procedure Procedure Tolerated Well Tolerated Well Tolerated Well Pain Scale: 0-10 Numeric Is Patient Pain Free? Yes Yes Yes WC - Visit Discharge Discharge Condition Stable Stable Stable Ambulatory Status Ambulatory Ambulatory Ambulatory Transportation Private Auto Private Auto Private Auto Accompanied by Medication Reconcilliation completed & No provided to patient/care provider Clinical Summary of Care Provided 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 PLAN: healed 4th toe (3) Peripheral vascular occlusive disease: CODE(S): I73.9 - Peripheral vascular disease, unspecified (4) Diabetes mellitus with neuropathy: CODE(S): E11.40 - Type 2 diabetes mellitus with diabetic neuropathy, unspecified QUALIFIERS: Diabetes mellitus type: type 2 Diabetes mellitus chcf insulin use: without chcf use Qualified Code(s): E11.40 - Type 2 diabetes mellitus with diabetic neuropathy, unspecified (5) Osteomyelitis: CODE(S): M86.9 - Osteomyelitis, unspecified QUALIFIERS: Osteomyelitis type: unspecified type Osteomyelitis location: foot Laterality: left Qualified Code(s): M86.9 - Osteomyelitis, unspecified (6) Chronic ulcer of left foot with necrosis of bone: CODE(S): L97.524 - Non-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 PLAN: Plan I reviewed and discussed his plan. Debridement was performed today as noted. He was advised to change his dressing daily with Aquacel Ag. To change his daily wash with antibacterial soap and water. To avoid soaking activities. His recent increased improvement is noted. He was previously diagnosed with osteomyelitis and underwent a fifth ray resection of the left foot at [facility] on 02-04-21. The diagnosis was confirmed with pathological acute osteomyelitis. The clearance fragment that was sent to pathology was negative for acute osteomyelitis. The clearance fragment that was sent to microbiology did not demonstrate some E. coli growth. He was discharged home from the hospital on oral Augmentin and Cipro; completed. This issue was resolved and addressed. Previous labs were reviewed. Hemoglobin A1c on 02-05-21 was 7.5%. diagnostic data: Xrays show fifth ray resection without soft tissue emphysema, osseous destruction , foreign body. Bone culture demonstrated acute osteomyelitis with anaerobic cocci and strep anginosis. He was started on 6-week course of oral Augmentin under the management of infectious disease was seen today. There is no purulence I do not recommend surgical intervention at this time. Now that he has a diagnosis of osteomyelitis, hyperbaric oxygen therapy may be a treatment option. This will be discussed at follow-up visit including risk benefits anticipated management and clearance process. It is noted his last echocardiogram demonstrated an EF of 40%. To wear white cotton socks and to avoid socks with color dyes. I recommend application of the cotton sock prior to use of Tubigrip which is recommended for local edema. I do not recommend more aggressive edema management due to his peripheral vascular disease status. I recommend continued offloading chronic wound site areas with a surgical shoe. To try to keep mostly weight on the heel. I recommend nutritional supplementation optimize healing including Neri nutritional supplement pack daily. It is also noted that his A1c is still elevated which also does not have a good healing outcome. I advised him on continued improved diabetic control. He will return to clinic in 1 weeks. He has delayed healing however he is making progressive progress with each visit. Note: [email or web address] speech recognition supervisor hydrochloric area software was used to create portions of this document. Sound-alike and misspelled words, as well as other supervisor hydrochloric area errors may be contained in the documentation. The medical decision making level is limited based on data including the review of prior external notes, review of a prior test, or ordering a test. The problems addressed require a low medical decision making level which includes two or more minor problems, a stable chronic illness, or an acute uncomplicated illness or injury.
== END 2022-05-14 23:59 | disposition home or self-care (01) ==
LOC: WC 14:45
PROVIDERS: PCP Nurse Practitioner Family; Referring Provider Podiatrist; Visit Provider Podiatrist
DX: E11.621 Type 2 diabetes mellitus with foot ulcer (principal); E11.51 Type 2 diabetes mellitus with diabetic peripheral angiopathy without gangrene; L97.524 Non-pressure chronic ulcer of other part of left foot with necrosis of bone; M86.172 Other acute osteomyelitis, left ankle and foot; E11.40 Type 2 diabetes mellitus with diabetic neuropathy, unspecified; E11.69 Type 2 diabetes mellitus with other specified complication; Z79.4 Long term (current) use of insulin; L85.3 Xerosis cutis; L30.9 Dermatitis, unspecified; Z79.82 Long term (current) use of aspirin; Z79.899 Other long term (current) drug therapy
CPT/HCPCS: 11042; 11044; 73630; 87015; 87070; 87075; 87077; 87101; 87116; 87186; 87205; 87206; 88304; 88307; 88311

== ENCOUNTER 2022-06-07 13:00 | Outpatient (RCR) | payer MEDICARE, SELFPAY ==
[2022-05-15 00:22] VITALS: BP 151/71; PULSE 72; RESP 18; TEMP 36.2; BMI 23.6
--- NOTE | 2022-05-17 15:46 | PCM.WC.PN ---
History of Present Illness Date of Service: 05/17/22 Chief Complaint: Left foot ulcer History of Wound: This 76-year-old male was seen for left foot ulcer return to the wound healing center today. He had recent lower extremity vascular successful intervention performed with Dr. Bowens. It is noted he has a low ejection fraction and also small vessel disease is suspected. He had a fifth ray resection of the left foot at [facility] on 02/04/2021 for treatment of non-healing ulcer and osteomyelitis. He has been changing the dressing as advised with hydrogel. He is with his today. He denies pain today. his bone biopsy demonstrated acute osteomyelitis and he is on a six week course of oral antibiotics under the management of infectious disease. Progress of Wound: stable Objective Data Objective Data Vital Signs: Vital Signs Temp Pulse Resp BP 97.1 F L 72 18 151/71 H 05/15/22 00:22 05/15/22 00:22 05/15/22 00:22 05/15/22 00:22 Weight: 60.781 kg Body Mass Index (BMI) 23.6 Physical Exam Extremity Extremity Narrative: No calf tenderness Diminished pulses Muscle wasting noted Skin Skin Narrative: no purulence, no streaking, no odor. atrophic and hairless skin. granular and fibrous ulcer at proximal most aspect of prior surgical site (remote) now with exposed firm bone (site of recent biopsy). dorsal ashley ulcer inflammation with dry skin and resolved erythema. No adjacent bogginess or fluctuance or william necrosis. Neuro Neuro Narrative: lack of normal epicritic sensation via light touch is consistent with neuropathy status Debridement Note Debridement Note Wound debrided: left lateral foot Wound Grade/Stage: 3 Type of Debridement: Excisional debridement Anesthesia Used: 4% Lidocaine Solution Depth: to bone Percentage of wound debrided: 100 Instrument Used: #15 blade and - (ronguer) Tissue Removed: fibrous, devitalized subcutaneous, biofilm, slough, bone Severity: Necrosis of Bone Amount of bleeding with debridement: Mild Bleeding Controlled with: Pressure Patient tolerated procedure: Patient tolerated procedure well Post-Debridement Measurements and Additional Note: Post-Debridement Measurements/Treatment WC - Nurse 2 - General Ulcer CM Notes Start: 05/17/22 14:41 Freq: Status: Active Protocol: Activity Type Activity Date Activity User E-sign Co-sign Detail Recorded Client Recorded Date Recorded By Document 05/17/22 14:56 [id number] 05/17/22 14:58 05/17/22 14:56 Wound Center Nurse 2 #1- L LATERAL FOOT -Time 14:57 -Correct Patient Yes -Correct Side, Site, Position Yes -Correct Procedure Yes -Procedure Performed Yes -Type of Procedure Debridement -Clinical Debridement Subcutaneous -Tissue Removed Subcutaneous -Post Debridement (cm) - Length 0.5 -Post Debridement (cm) - Width 0.1 -Post Debridement (cm) - Depth 0.2 -Total Square (Post) (cm) 0.05 -Area of Debridement (cm) - Length 0.5 -Area of Debridement (cm) - Width 0.1 -Total Square (Area) (cm) 0.05 -Tunneling No -Undermining/Tunneling No -Circular Undermining No -Wound/Ulcer Outcome Not Healed -Ulcer Cleansing Rinsed/ Irrigated with Saline -Foul Odor after Cleansing No -Bioengineered Tissue No -Bleeding Controlled with Pressure -Treatment Response Procedure Tolerated Well -Offloading Yes -Type of Offloading Surgical Shoe -Debridement - Subq, 1st 20sq cm Yes Pain Scale: 0-10 Numeric Is Patient Pain Free? Yes - Nurse 3 - General Ulcer D/C NN Start: 05/17/22 14:41 Freq: Status: Active Protocol: Activity Type Activity Date Activity User E-sign Co-sign Detail Recorded Client Recorded Date Recorded By Document 05/17/22 15:11 [id number] 05/17/22 15:11 05/17/22 15:11 Wound Care Nurse 3 #1- L LATERAL FOOT -Ulcer Cleansing Wound Cleanser -Primary Dressing Applied Aquacel AG 2x2 -Primary Dressing Covered/Secured with Dry Gauze, Secured with Tape -Aquacel AG 2x2 1 Treatment Response Procedure Tolerated Well Pain Scale: 0-10 Numeric Is Patient Pain Free? Yes Teaching: Wound Center Dressing Your Wound -Person Taught Patient,Family -Teaching Method Discussion, Demonstration -Response to teaching Verbalize understanding WC - Visit Discharge Discharge Condition Stable Ambulatory Status Ambulatory Transportation Private Auto Medication Reconcilliation completed & No provided to patient/care provider Clinical Summary of Care Provided 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 PLAN: healed 4th toe (3) Peripheral vascular occlusive disease: CODE(S): I73.9 - Peripheral vascular disease, unspecified (4) Diabetes mellitus with neuropathy: CODE(S): E11.40 - Type 2 diabetes mellitus with diabetic neuropathy, unspecified QUALIFIERS: Diabetes mellitus long term care pharmacist insulin use: without long term care pharmacist use Diabetes mellitus type: type 2 Qualified Code(s): E11.40 - Type 2 diabetes mellitus with diabetic neuropathy, unspecified (5) Osteomyelitis: CODE(S): M86.9 - Osteomyelitis, unspecified QUALIFIERS: Laterality: left Osteomyelitis location: foot Osteomyelitis type: unspecified type Qualified Code(s): M86.9 - Osteomyelitis, unspecified (6) Chronic ulcer of left foot with necrosis of bone: CODE(S): L97.524 - Non-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 PLAN: Plan I reviewed and discussed his plan. Debridement was performed today as noted. He was advised to change his dressing daily with [employer]. To change his daily wash with antibacterial soap and water. To avoid soaking activities. His recent increased improvement is noted. I recommend a delayed primary closure with suture and he deferred today. He was previously diagnosed with osteomyelitis and underwent a fifth ray resection of the left foot at [facility] on 02-04-21. The diagnosis was confirmed with pathological acute osteomyelitis. The clearance fragment that was sent to pathology was negative for acute osteomyelitis. The clearance fragment that was sent to microbiology did not demonstrate some E. coli growth. He was discharged home from the hospital on oral Augmentin and Cipro; completed. This issue was resolved and addressed. Previous labs were reviewed. Hemoglobin A1c on 02-05-21 was 7.5%. diagnostic data: X-rays show fifth ray resection without soft tissue emphysema, osseous destruction , foreign body. Bone culture demonstrated acute osteomyelitis with anaerobic cocci and strep anginosis. He was started on 6-week course of oral Augmentin under the management of infectious disease was seen today. There is no purulence I do not recommend surgical intervention at this time. Now that he has a diagnosis of osteomyelitis, hyperbaric oxygen therapy may be a treatment option. This will be discussed at follow-up visit including risk benefits anticipated management and clearance process. It is noted his last echocardiogram demonstrated an EF of 40%. To wear white cotton socks and to avoid socks with color dyes. I recommend application of the cotton sock prior to use of Tubigrip which is recommended for local edema. I do not recommend more aggressive edema management due to his peripheral vascular disease status. I recommend continued offloading chronic wound site areas with a surgical shoe. To try to keep mostly weight on the heel. I recommend nutritional supplementation optimize healing including Neri nutritional supplement pack daily. It is also noted that his A1c is still elevated which also does not have a good healing outcome. I advised him on continued improved diabetic control. He will return to clinic in 1 weeks. He has delayed healing however he is making progressive progress with each visit. Note: [employer] speech recognition digital sales manager software was used to create portions of this document. Sound-alike and misspelled words, as well as other digital sales manager errors may be contained in the documentation. The medical decision making level is limited based on data including the review of prior external notes, review of a prior test, or ordering a test. The problems addressed require a low medical decision making level which includes two or more minor problems, a stable chronic illness, or an acute uncomplicated illness or injury.
[2022-05-24 14:21] VITALS: BP 142/58; PULSE 69; RESP 18; TEMP 36.3; BMI 23.6
--- NOTE | 2022-05-24 15:38 | PCM.WC.PN ---
History of Present Illness Date of Service: 05/24/22 Chief Complaint: Left foot ulcer History of Wound: This 76-year-old male was seen for left foot ulcer return to the wound healing center today. He had recent lower extremity vascular successful intervention performed with Dr. Bowens. It is noted he has a low ejection fraction and also small vessel disease is suspected. He had a fifth ray resection of the left foot at [facility] on 02/04/2021 for treatment of non-healing ulcer and osteomyelitis. He has been changing the dressing as advised with hydrogel. He is with his today. He denies pain today. his bone biopsy demonstrated acute osteomyelitis and he is on a six week course of oral antibiotics under the management of infectious disease. He defers delayed primary closure today or hyperbaric oxygen therapy treatment. Progress of Wound: Slow improvement Objective Data Objective Data Vital Signs: Vital Signs Temp Pulse Resp BP 97.4 F L 69 18 142/58 H 05/24/22 14:21 05/24/22 14:21 05/24/22 14:21 05/24/22 14:21 Weight: 60.781 kg Body Mass Index (BMI) 23.6 Physical Exam Extremity Extremity Narrative: No calf tenderness Diminished pulses Muscle wasting noted Skin Skin Narrative: no purulence, no streaking, no odor. atrophic and hairless skin. granular ulcer at proximal most aspect of prior surgical site (remote) now with exposed firm bone (site of recent biopsy). dorsal kasia ulcer inflammation with dry skin and resolved erythema. No adjacent bogginess or fluctuance or william necrosis. Neuro Neuro Narrative: lack of normal epicritic sensation via light touch is consistent with neuropathy status Debridement Note Debridement Note Wound debrided: left lateral foot Wound Grade/Stage: 3 Type of Debridement: Excisional debridement Anesthesia Used: 4% Lidocaine Solution Depth: to bone Percentage of wound debrided: 100 Instrument Used: #15 blade and - (ronguer) Tissue Removed: fibrous, devitalized subcutaneous, biofilm, slough, bone Severity: Necrosis of Bone Amount of bleeding with debridement: Mild Bleeding Controlled with: Pressure Patient tolerated procedure: Patient tolerated procedure well Post-Debridement Measurements and Additional Note: Post-Debridement Measurements/Treatment ALFREDO - Nurse 1 - General Ulcer Assessment Start: 05/17/22 14:41 Freq: Status: Active Protocol: JV Activity Type Activity Date Activity User E-sign Co-sign Detail Recorded Client Recorded Date Recorded By Document 05/24/22 14:21 DL [id number] 05/24/22 14:25 05/24/22 14:21 WC - Today's Visit Information Type of service Follow-up Visit (Physician/[employer] ) Arrival Mode Ambulatory Transfer Assistance None Patient Identification Verified (Name & Yes ) Patient Requires Transmission-Based No Precautions Height and Weight Body Mass Index (BMI) 23.6 BMI Classification Normal Vital Signs Temperature (97.8 F-99.1 F) 97.4 F L Temperature Source Temporal Pulse Rate (60-100) 69 Pulse Location Monitor Respiratory Rate (12-18) 18 Respiratory rate source Observation Blood Pressure (90/60-120/80) 142/58 H Blood Pressure Mean (mm Hg) 86 Source Monitor History Since Last Visit- (Skip if this is Patient's initial visit) Have you changed medications since your No last visit? Any new allergies or adverse reactions No Had a fall/change in ADL's that may No increase risk of falls Signs or symptoms of abuse and/or No neglect since last visit Have you been in the hospital since your No last visit? Has dressing in place as prescribed Yes Has compression in place as prescribed Yes Has offloadiing in place as prescribed Yes Experienced any changes in pain level or No management Pain Scale: 0-10 Numeric Is Patient Pain Free? Yes - Nurse 1 - General Ulcer Measurement Start: 05/17/22 14:41 Freq: Status: Active Protocol: Activity Type Activity Date Activity User E-sign Co-sign Detail Recorded Client Recorded Date Recorded By Document 05/24/22 14:21 [id number] 05/24/22 14:25 05/24/22 14:21 Wound Center Nurse 1 #1- L LATERAL FOOT -Current Size (cm) - Length 0.4 -Current Size (cm) - Width 0.2 -Current Size (cm) - Depth 0.4 -Total Square Cm 0.08 -Photo Taken No -Exudate Amt Small -Wound Margin Distinct, Outline Attached -Granulation Amt Large (67-100%) -Granulation Quality [place] -Necrosis Amt None Present (0 %) -Structure Exposed N/A -Texture (Kasia-wound Skin Appearance) Scarring,Rash -Moisture (Kasia-wound Skin Appearance) Dry/Scaly -Color (Kasia-wound Skin Appearance) No Abnormality -Temperature ([place]-wound Skin No Abnormality Appearance) (Pt Warm) -Tenderness on Palpation (Kasia-wound No Skin Appearance) -Ulcer Cleansing Rinsed/ Irrigated with Saline -Foul Odor after Cleansing No -Anesthetic Used 5% Lidocaine Gel ALFREDO - Nurse 2 - General Ulcer CM Notes Start: 05/17/22 14:41 Freq: Status: Active Protocol: Activity Type Activity Date Activity User E-sign Co-sign Detail Recorded Client Recorded Date Recorded By Document 05/17/22 14:56 [id number] 05/17/22 14:58 Document 05/24/22 14:42 [id number] 05/24/22 14:44 05/17/22 05/24/22 14:56 14:42 Wound Center Nurse 2 #1- L LATERAL FOOT -Time 14:57 14:42 -Correct Patient Yes Yes -Correct Side, Site, Position Yes Yes -Correct Procedure Yes Yes -Procedure Performed Yes Yes -Type of Procedure Debridement Debridement -Clinical Debridement Subcutaneous Subcutaneous -Tissue Removed Subcutaneous Subcutaneous -Post Debridement (cm) - Length 0.5 0.1 -Post Debridement (cm) - Width 0.1 0.6 -Post Debridement (cm) - Depth 0.2 0.6 -Total Square (Post) (cm) 0.05 0.06 -Area of Debridement (cm) - Length 0.5 0.1 -Area of Debridement (cm) - Width 0.1 0.6 -Total Square (Area) (cm) 0.05 0.06 -Tunneling No No -Undermining/Tunneling No No -Circular Undermining No No -Wound/Ulcer Outcome Not Healed Not Healed -Ulcer Cleansing Rinsed/ Rinsed/ Irrigated with Irrigated with Saline Saline -Foul Odor after Cleansing No No -Bioengineered Tissue No No -Bleeding Controlled with Pressure Pressure -Treatment Response Procedure Procedure Tolerated Well Tolerated Well -Offloading Yes Yes -Type of Offloading Surgical Shoe Surgical Shoe -Debridement - Subq, 1st 20sq cm Yes Yes Pain Scale: 0-10 Numeric Is Patient Pain Free? Yes Yes ALFREDO - Nurse 3 - General Ulcer D/C NN Start: 05/17/22 14:41 Freq: Status: Active Protocol: Activity Type Activity Date Activity User E-sign Co-sign Detail Recorded Client Recorded Date Recorded By Document 05/17/22 15:11 [id number] 05/17/22 15:11 RB Document 05/24/22 14:49 [facility] [id number] 05/24/22 14:50 [facility] 05/17/22 05/24/22 15:11 14:49 Wound Care Nurse 3 #1- L LATERAL FOOT -Ulcer Cleansing Wound Cleanser Rinsed/ Irrigated with Saline -Foul Odor after Cleansing No -Primary Dressing Applied Aquacel AG 2x2 C Hydrogel ($) -Primary Dressing Covered/Secured with Dry Gauze, Dry Gauze, Secured with Secured with Tape Tape -Aquacel AG 2x2 1 Treatment Response Procedure Procedure Tolerated Well Tolerated Well Pain Scale: 0-10 Numeric Is Patient Pain Free? Yes Yes Teaching: Wound Center Dressing Your Wound -Person Taught Patient,Family -Teaching Method Discussion, Demonstration -Response to teaching Verbalize understanding WC - Visit Discharge Discharge Condition Stable Stable Ambulatory Status Ambulatory Ambulatory Transportation Private Auto Private Auto Accompanied by Medication Reconcilliation completed & No provided to patient/care provider Clinical Summary of Care Provided 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 PLAN: healed 4th toe (3) Peripheral vascular occlusive disease: CODE(S): I73.9 - Peripheral vascular disease, unspecified (4) Diabetes mellitus with neuropathy: CODE(S): E11.40 - Type 2 diabetes mellitus with diabetic neuropathy, unspecified QUALIFIERS: Diabetes mellitus type: type 2 Diabetes mellitus terminal supervisor insulin use: without terminal supervisor use Qualified Code(s): E11.40 - Type 2 diabetes mellitus with diabetic neuropathy, unspecified (5) Osteomyelitis: CODE(S): M86.9 - Osteomyelitis, unspecified QUALIFIERS: Osteomyelitis type: unspecified type Osteomyelitis location: foot Laterality: left Qualified Code(s): M86.9 - Osteomyelitis, unspecified (6) Chronic ulcer of left foot with necrosis of bone: CODE(S): L97.524 - Non-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 PLAN: Plan I reviewed and discussed his plan. Debridement was performed today as noted. He was advised to change his dressing daily with Aquacel Ag. To change his daily wash with antibacterial soap and water. To avoid soaking activities. His recent increased improvement is noted. I recommend a delayed primary closure with suture and he deferred today. He was previously diagnosed with osteomyelitis and underwent a fifth ray resection of the left foot at [facility] on 02-04-21. The diagnosis was confirmed with pathological acute osteomyelitis. The clearance fragment that was sent to pathology was negative for acute osteomyelitis. The clearance fragment that was sent to microbiology did not demonstrate some E. coli growth. He was discharged home from the hospital on oral Augmentin and Cipro; completed. This issue was resolved and addressed. Previous labs were reviewed. Hemoglobin A1c on 02-05-21 was 7.5%. diagnostic data: X-rays show fifth ray resection without soft tissue emphysema, osseous destruction , foreign body. Bone culture demonstrated acute osteomyelitis with anaerobic cocci and strep anginosis. He was started on 6-week course of oral Augmentin under the management of infectious disease was seen today. There is no purulence I do not recommend surgical intervention at this time. Now that he has a diagnosis of osteomyelitis, hyperbaric oxygen therapy may be a treatment option. This will be discussed at follow-up visit including risk benefits anticipated management and clearance process. It is noted his last echocardiogram demonstrated an EF of 40%. He reports he does not want to come in daily for this treatment and defers at this time. To wear white cotton socks and to avoid socks with color dyes. I recommend application of the cotton sock prior to use of Tubigrip which is recommended for local edema. I do not recommend more aggressive edema management due to his peripheral vascular disease status. I recommend continued offloading chronic wound site areas with a surgical shoe. To try to keep mostly weight on the heel. I recommend nutritional supplementation optimize healing including Neri nutritional supplement pack daily. It is also noted that his A1c is still elevated which also does not have a good healing outcome. I advised him on continued improved diabetic control. He will return to clinic in 2 weeks. He has delayed healing however he is making progressive progress with each visit. Note: [email or web address] speech recognition instrument shop supervisor software was used to create portions of this document. Sound-alike and misspelled words, as well as other instrument shop supervisor errors may be contained in the documentation. The medical decision making level is moderate. There is noted moderate risk of morbidity after considering this treatment plan and diagnostic data. Considerations were given to prescription management, decisions regarding surgical options, or social determinants of health. The problems addressed require a moderate decision making level which includes one or more chronic illnesses (w/ exacerbation, progression, or side effects), two or more stable chronic illnesses, one undiagnosed new problem w/ uncertain prognosis, one acute illness with systemic symptoms, or one acute complicated injury.
[2022-06-07 13:07] VITALS: BP 146/56; PULSE 66; RESP 18; TEMP 36.1; BMI 23.6
--- NOTE | 2022-06-07 13:41 | PN.PCM_ITS ---
History of Present Illness Date of Service: 06/07/22 Chief Complaint: Left foot ulcer History of Wound: This 76-year-old male was seen for left foot ulcer return to the wound healing center today. He had recent lower extremity vascular successful intervention performed with Dr. Bowens. It is noted he has a low ejection fraction and also small vessel disease is suspected. He had a fifth ray resection of the left foot at [facility] on 02/04/2021 for treatment of non-healing ulcer and osteomyelitis. He has been changing the dressing as advised with hydrogel. He is with his today. He denies pain today. his bone biopsy demonstrated acute osteomyelitis and he is on a six week course of oral antibiotics under the management of infectious disease. He is now amendable to proceed with the delayed primary closure today. He defers hyperbaric oxygen therapy treatment. Progress of Wound: Slow improvement Objective Data Objective Data Vital Signs: Vital Signs Temp Pulse Resp BP 97 F L 66 18 146/56 H 06/07/22 13:07 06/07/22 13:07 06/07/22 13:07 06/07/22 13:07 Weight: 60.781 kg Body Mass Index (BMI) 23.6 Physical Exam Extremity Extremity Narrative: No calf tenderness Diminished pulses Muscle wasting noted Skin Skin Narrative: no purulence, no streaking, no odor. atrophic and hairless skin. granular ulcer at proximal most aspect of prior surgical site (remote) now without exposed firm bone (site of recent biopsy); very mobile site. dorsal kasia ulcer inflammation with dry skin and resolved erythema; inflammation noted. No adjacent bogginess or fluctuance or william necrosis. Neuro Neuro Narrative: lack of normal epicritic sensation via light touch is consistent with neuropathy status Debridement Note Debridement Note Wound debrided: left lateral foot Wound Grade/Stage: 3 Type of Debridement: Excisional debridement Anesthesia Used: 4% Lidocaine Solution Depth: to bone Percentage of wound debrided: 100 Instrument Used: #15 blade and - (ronguer) Tissue Removed: fibrous, devitalized subcutaneous, biofilm, slough, bone Severity: Necrosis of Bone Amount of bleeding with debridement: Mild Bleeding Controlled with: Pressure Patient tolerated procedure: Patient tolerated procedure well Post-Debridement Measurements and Additional Note: Post-Debridement Measurements/Treatment ALFREDO - Nurse 1 - General Ulcer Assessment Start: 05/17/22 14:41 Freq: Status: Active Protocol: JV Activity Type Activity Date Activity User E-sign Co-sign Detail Recorded Client Recorded Date Recorded By Document 05/24/22 14:21 DL [id number] 05/24/22 14:25 DL Document 06/07/22 13:07 RB [id number] 06/07/22 13:13 RB 05/24/22 06/07/22 14:21 13:07 WC - Today's Visit Information Type of service Follow-up Visit Follow-up Visit (Physician/TAX ASSESSOR (Physician/TAX ASSESSOR ) ) Arrival Mode Ambulatory Ambulatory Transfer Assistance None None Patient Identification Verified (Name & Yes Yes ) Patient Requires Transmission-Based No No Precautions Height and Weight Body Mass Index (BMI) 23.6 23.6 BMI Classification Normal Normal Vital Signs Temperature (97.8 F-99.1 F) 97.4 F L 97 F L Temperature Source Temporal Temporal Pulse Rate (60-100) 69 66 Pulse Location Monitor Monitor Respiratory Rate (12-18) 18 18 Respiratory rate source Observation Observation Blood Pressure (90/60-120/80) 142/58 H 146/56 H Blood Pressure Mean (mm Hg) 86 86 Source Monitor Monitor Position Sitting Blood Pressure Location Right Arm History Since Last Visit- (Skip if this is Patient's initial visit) Have you changed medications since your No No last visit? Any new allergies or adverse reactions No No Had a fall/change in ADL's that may No No increase risk of falls Signs or symptoms of abuse and/or No No neglect since last visit Have you been in the hospital since your No No last visit? Has dressing in place as prescribed Yes Yes Has compression in place as prescribed Yes No Has offloadiing in place as prescribed Yes Yes Experienced any changes in pain level or No No management Left Footwear Regular Shoe Right Footwear Surgical Shoe with pressure relief insole Pain Scale: 0-10 Numeric Is Patient Pain Free? Yes Yes - Nurse 1 - General Ulcer Measurement Start: 05/17/22 14:41 Freq: Status: Active Protocol: Activity Type Activity Date Activity User E-sign Co-sign Detail Recorded Client Recorded Date Recorded By Document 05/24/22 14:21 DL [id number] 05/24/22 14:25 DL Document 06/07/22 13:07 RB [id number] 06/07/22 13:13 RB 05/24/22 06/07/22 14:21 13:07 Wound Center Nurse 1 #1- L LATERAL FOOT -Combined with other wound No -Current Size (cm) - Length 0.4 0.4 -Current Size (cm) - Width 0.2 0.1 -Current Size (cm) - Depth 0.4 0.3 -Total Square Cm 0.08 0.04 -Photo Taken No Yes -Tunneling No -Undermining/Tunneling No -Circular Undermining No -Exudate Amt Small Medium -Exudate Type Serosanguineous -Wound Margin Distinct, Distinct, Outline Outline Attached Attached -Granulation Amt Large (67-100%) Medium (34-66%) -Granulation Quality [place] -Slough/Fibrin Yes -Necrosis Amt None Present (0 Small (1-33%) %) -Necrotic Tissue Type Adherent Slough -Structure Exposed N/A N/A -Texture (Kasia-wound Skin Appearance) Scarring,Rash Assessed, Localized Edema -Moisture (Kasia-wound Skin Appearance) Dry/Scaly Assessed -Color (Kasia-wound Skin Appearance) No Abnormality Assessed -Temperature (Kasia-wound Skin No Abnormality No Abnormality Appearance) (Pt Warm) (Pt Warm) -Tenderness on Palpation (Kasia-wound No No Skin Appearance) -Ulcer Cleansing Rinsed/ Wound Cleanser Irrigated with Saline -Foul Odor after Cleansing No No -Anesthetic Used 5% Lidocaine 5% Lidocaine Gel Gel WC - Nurse 2 - General Ulcer CM Notes Start: 05/17/22 14:41 Freq: Status: Active Protocol: Activity Type Activity Date Activity User E-sign Co-sign Detail Recorded Client Recorded Date Recorded By Document 05/17/22 14:56 [id number] 05/17/22 14:58 Document 05/24/22 14:42 [id number] 05/24/22 14:44 Document 06/07/22 13:18 [id number] 06/07/22 13:26 05/17/22 05/24/22 06/07/22 14:56 14:42 13:18 Wound Center Nurse 2 #1- L LATERAL FOOT -Time 14:57 14:42 13:19 -Correct Patient Yes Yes Yes -Correct Side, Site, Position Yes Yes Yes -Correct Procedure Yes Yes Yes -Procedure Performed Yes Yes Yes -Type of Procedure Debridement Debridement Debridement -Clinical Debridement Subcutaneous Subcutaneous Subcutaneous -Tissue Removed Subcutaneous Subcutaneous Subcutaneous -Post Debridement (cm) - Length 0.5 0.1 0.1 -Post Debridement (cm) - Width 0.1 0.6 0.5 -Post Debridement (cm) - Depth 0.2 0.6 0.2 -Total Square (Post) (cm) 0.05 0.06 0.05 -Area of Debridement (cm) - Length 0.5 0.1 0.1 -Area of Debridement (cm) - Width 0.1 0.6 0.5 -Total Square (Area) (cm) 0.05 0.06 0.05 -Tunneling No No No -Undermining/Tunneling No No No -Circular Undermining No No No -Wound/Ulcer Outcome Not Healed Not Healed Not Healed -Ulcer Cleansing Rinsed/ Rinsed/ Rinsed/ Irrigated with Irrigated with Irrigated with Saline Saline Saline -Foul Odor after Cleansing No No No -Bioengineered Tissue No No No -Bleeding Controlled with Pressure Pressure Pressure -Treatment Response Procedure Procedure Procedure Tolerated Well Tolerated Well Tolerated Well -Offloading Yes Yes Yes -Type of Offloading Surgical Shoe Surgical Shoe Surgical Shoe -Debridement - Subq, 1st 20sq cm Yes Yes Yes Pain Scale: 0-10 Numeric Is Patient Pain Free? Yes Yes Yes - Nurse 3 - General Ulcer D/C NN Start: 05/17/22 14:41 Freq: Status: Active Protocol: Activity Type Activity Date Activity User E-sign Co-sign Detail Recorded Client Recorded Date Recorded By Document 05/17/22 15:11 [id number] 05/17/22 15:11 Document 05/24/22 14:49 [facility] [id number] 05/24/22 14:50 [facility] Document 06/07/22 13:36 [id number] 06/07/22 13:36 05/17/22 05/24/22 06/07/22 15:11 14:49 13:36 Wound Care Nurse 3 #1- L LATERAL FOOT -Ulcer Cleansing Wound Cleanser Rinsed/ Irrigated with Saline -Foul Odor after Cleansing No -Primary Dressing [employer] 2x2 C Hydrogel ($) -Primary Dressing Covered/Secured with Dry Gauze, Dry Gauze, Dry Gauze,Dry Secured with Secured with Gauze & Roll Tape Tape Gauze,Secured with Tape -Aquacel AG 2x2 1 Treatment Response Procedure Procedure Procedure Tolerated Well Tolerated Well Tolerated Well Pain Scale: 0-10 Numeric Is Patient Pain Free? Yes Yes Yes Teaching: Wound Center Dressing Your Wound -Person Taught Patient,Family -Teaching Method Discussion, Demonstration -Response to teaching Verbalize understanding WC - Visit Discharge Discharge Condition Stable Stable Stable Ambulatory Status Ambulatory Ambulatory Ambulatory Transportation Private Auto Private Auto Private Auto Accompanied by Medication Reconcilliation completed & No No provided to patient/care provider Clinical Summary of Care Provided Yes 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 PLAN: healed 4th toe (3) Peripheral vascular occlusive disease: CODE(S): I73.9 - Peripheral vascular disease, unspecified (4) Diabetes mellitus with neuropathy: CODE(S): E11.40 - Type 2 diabetes mellitus with diabetic neuropathy, unspecified QUALIFIERS: Diabetes mellitus type: type 2 Diabetes mellitus senior living insulin use: without senior living use Qualified Code(s): E11.40 - Type 2 diabetes mellitus with diabetic neuropathy, unspecified (5) Osteomyelitis: CODE(S): M86.9 - Osteomyelitis, unspecified QUALIFIERS: Osteomyelitis type: unspecified type Osteomyelitis location: foot Laterality: left Qualified Code(s): M86.9 - Osteomyelitis, unspecified (6) Chronic ulcer of left foot with necrosis of bone: CODE(S): L97.524 - Non-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 PLAN: Plan I reviewed and discussed his plan. Debridement was performed today as noted. Verbal consent was obtained to perform a delayed primary closure. 1.5 cc of 2% lidocaine plain was administered after alcohol preparation was performed with local infiltration to the left foot. A horizontal mattress and simple suture was applied to reapproximate the skin edges with 3-0 Prolene. He tolerated this well. This is anticipated to remain in place for 3 to 4 weeks. He was advised to change his dressing every other day with dry gauze. He was previously diagnosed with osteomyelitis and underwent a fifth ray res ection of the left foot at [facility] on 02-04-21. The diagnosis was confirmed with pathological acute osteomyelitis. The clearance fragment that was sent to pathology was negative for acute osteomyelitis. The clearance fragment that was sent to microbiology did not demonstrate some E. coli growth. He was discharged home from the hospital on oral Augmentin and Cipro; completed. This issue was resolved and addressed. Previous labs were reviewed. Hemoglobin A1c on 02-05-21 was 7.5%. diagnostic data: X-rays show fifth ray resection without soft tissue emphysema, osseous destruction , foreign body. Bone culture demonstrated acute osteomyelitis with anaerobic cocci and strep anginosis. He was started on 6- week course of oral Augmentin under the management of infectious disease was seen today. There is no purulence I do not recommend surgical intervention at this time. Now that he has a diagnosis of osteomyelitis, hyperbaric oxygen therapy may be a treatment option. This will be discussed at follow-up visit including risk benefits anticipated management and clearance process. It is noted his last echocardiogram demonstrated an EF of 40%. He reports he does not want to come in daily for this treatment and defers at this time. To wear white cotton socks and to avoid socks with color dyes. I recommend application of the cotton sock prior to use of Tubigrip which is recommended for local edema. I do not recommend more aggressive edema management due to his peripheral vascular disease status. I recommend continued offloading chronic wound site areas with a surgical shoe. To try to keep mostly weight on the heel. I recommend nutritional supplementation optimize healing including Neri nutritional supplement pack daily. It is also noted that his A1c is still elevated which also does not have a good healing outcome. I advised him on continued improved diabetic control. He will return to clinic in 2 weeks. Note: [email or web address] speech recognition repairer switchgear software was used to create portions of this document. Sound-alike and misspelled words, as well as other repairer switchgear errors may be contained in the documentation.
== END 2022-06-14 23:59 | disposition home or self-care (01) ==
LOC: WC 13:00
PROVIDERS: PCP Nurse Practitioner Family; Referring Provider Podiatrist; Visit Provider Podiatrist
DX: E11.621 Type 2 diabetes mellitus with foot ulcer (principal); E11.51 Type 2 diabetes mellitus with diabetic peripheral angiopathy without gangrene; L97.524 Non-pressure chronic ulcer of other part of left foot with necrosis of bone; M86.172 Other acute osteomyelitis, left ankle and foot; E11.69 Type 2 diabetes mellitus with other specified complication; E11.40 Type 2 diabetes mellitus with diabetic neuropathy, unspecified; Z79.82 Long term (current) use of aspirin; Z79.84 Long term (current) use of oral hypoglycemic drugs; Z79.899 Other long term (current) drug therapy
CPT/HCPCS: 11042

== ENCOUNTER 2022-07-11 09:15 | Outpatient (RCR) | payer MEDICARE, SELFPAY ==
[2022-06-15 00:26] VITALS: BP 146/56; PULSE 66; RESP 18; TEMP 36.1; BMI 23.6
[2022-06-21 13:24] VITALS: BP 136/54; PULSE 66; RESP 18; TEMP 36.1; BMI 23.6
--- NOTE | 2022-06-21 14:20 | PN.PCM_ITS ---
History of Present Illness Date of Service: 06/21/22 Chief Complaint: Left foot ulcer History of Wound: This 76-year-old male was seen for left foot ulcer return to the wound healing center today. He had recent lower extremity vascular successful intervention performed with Dr. Bowens. It is noted he has a low ejection fraction and also small vessel disease is suspected. He had a fifth ray resection of the left foot at [facility] on 02/04/2021 for treatment of non-healing ulcer and osteomyelitis. He has been changing the dressing as advised with hydrogel. He is with his today. He denies pain today. His bone biopsy demonstrated acute osteomyelitis and he is on a six week course of oral antibiotics under the management of infectious disease. He had a recent delayed primary closure today. He defers hyperbaric oxygen therapy treatment. His adjacent skin is now reirritated. He uses CeraVe lotion. Progress of Wound: stable Objective Data Objective Data Vital Signs: Vital Signs Temp Pulse Resp BP 97 F L 66 18 136/54 H 06/21/22 13:24 06/21/22 13:24 06/21/22 13:24 06/21/22 13:24 Weight: 60.781 kg Body Mass Index (BMI) 23.6 Physical Exam Extremity Extremity Narrative: No calf tenderness Diminished pulses Muscle wasting noted Skin Skin Narrative: no purulence, no streaking, no odor. atrophic and hairless skin. granular dorsal kasia ulcer inflammation with dry skin and returned erythema; inflammation noted. No adjacent bogginess or fluctuance or william necrosis. The delayed primary closure site is intact with sutures. There is no gapping or visualized drainage. The wound margin edges are coapting well. Neuro Neuro Narrative: lack of normal epicritic sensation via light touch is consistent with neuropathy status Debridement Note Debridement Note Post-Debridement Measurements and Additional Note: Post-Debridement Measurements/Treatment ALFREDO - Nurse 1 - General Ulcer Assessment Start: 06/21/22 13:23 Freq: Status: Active Protocol: JV Activity Type Activity Date Activity User E-sign Co-sign Detail Recorded Client Recorded Date Recorded By Document 06/21/22 13:24 MOHIT [id number] 06/21/22 13:28 MOHIT 06/21/22 13:24 - Today's Visit Information Type of service Follow-up Visit (Physician/FLIGHT ENGINEER HELICOPTER ) Arrival Mode Ambulatory Transfer Assistance None Patient Identification Verified (Name & Yes ) Patient Requires Transmission-Based No Precautions Height and Weight Body Mass Index (BMI) 23.6 BMI Classification Normal Vital Signs Temperature (97.8 F-99.1 F) 97 F L Temperature Source Temporal Pulse Rate (60-100) 66 Pulse Location Monitor Respiratory Rate (12-18) 18 Respiratory rate source Observation Blood Pressure (90/60-120/80) 136/54 H Blood Pressure Mean (mm Hg) 81 Source Monitor Position Semi-Fowlers Blood Pressure Location Left Arm History Since Last Visit- (Skip if this is Patient's initial visit) Have you changed medications since your No last visit? Any new allergies or adverse reactions No Had a fall/change in ADL's that may No increase risk of falls Signs or symptoms of abuse and/or No neglect since last visit Have you been in the hospital since your No last visit? Has dressing in place as prescribed Yes Has compression in place as prescribed No Has offloadiing in place as prescribed Yes Experienced any changes in pain level or No management Left Footwear Surgical Shoe with pressure relief insole Right Footwear Regular Shoe Pain Scale: 0-10 Numeric Is Patient Pain Free? Yes WC - Nurse 1 - General Ulcer Measurement Start: 06/21/22 13:23 Freq: Status: Active Protocol: Activity Type Activity Date Activity User E-sign Co-sign Detail Recorded Client Recorded Date Recorded By Document 06/21/22 13:24 [id number] 06/21/22 13:28 MOHIT 06/21/22 13:24 Wound Center Nurse 1 #1- L LATERAL FOOT -Combined with other wound No -Current Size (cm) - Length 0.1 -Current Size (cm) - Width 0.1 -Current Size (cm) - Depth 0.1 -Total Square Cm 0.01 -Epithelialization Medium 34-66% -Tunneling No -Undermining/Tunneling No -Circular Undermining No -Exudate Amt Small -Exudate Type Serosanguineous -Wound Margin Distinct, Outline Attached -Granulation Amt Medium (34-66%) -Granulation Quality [place] -Slough/Fibrin Yes -Necrosis Amt Small (1-33%) -Necrotic Tissue Type Adherent Slough -Structure Exposed N/A -Texture (Kasia-wound Skin Appearance) Assessed -Moisture (Kasia-wound Skin Appearance) Assessed -Color (Kasia-wound Skin Appearance) Assessed -Temperature (Kasia-wound Skin No Abnormality Appearance) (Pt Warm) -Tenderness on Palpation (Kasia-wound No Skin Appearance) -Ulcer Cleansing Wound Cleanser -Foul Odor after Cleansing No -Anesthetic Used 4% Lidocaine Solution -Wound Comment(s) suture intact on wound #1 - Nurse 2 - General Ulcer CM Notes Start: 06/21/22 13:23 Freq: Status: Active Protocol: Activity Type Activity Date Activity User E-sign Co-sign Detail Recorded Client Recorded Date Recorded By Document 06/21/22 13:38 [id number] 06/21/22 13:39 06/21/22 13:38 Wound Center Nurse 2 -Correct Patient No -Correct Side, Site, Position No -Correct Procedure No -Procedure Performed No -Wound/Ulcer Outcome Not Healed Pain Scale: 0-10 Numeric Is Patient Pain Free? Yes - Nurse 3 - General Ulcer D/C NN Start: 06/21/22 13:23 Freq: Status: Active Protocol: Activity Type Activity Date Activity User E-sign Co-sign Detail Recorded Client Recorded Date Recorded By Document 06/21/22 13:44 [id number] 06/21/22 13:44 06/21/22 13:44 Wound Care Nurse 3 #1- L LATERAL FOOT -Ulcer Cleansing Rinsed/ Irrigated with Saline -Foul Odor after Cleansing No -Primary Dressing Covered/Secured with Dry Gauze, Secured with Tape Pain Scale: 0-10 Numeric Is Patient Pain Free? Yes - Visit Discharge Discharge Condition Stable Ambulatory Status Ambulatory,Cane Transportation Private Auto Accompanied by Medication Reconcilliation completed & Yes provided to patient/care provider Clinical Summary of Care Provided 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 PLAN: healed 4th toe (3) Peripheral vascular occlusive disease: CODE(S): I73.9 - Peripheral vascular disease, unspecified (4) Diabetes mellitus with neuropathy: CODE(S): E11.40 - Type 2 diabetes mellitus with diabetic neuropathy, unspecified QUALIFIERS: Diabetes mellitus type: type 2 Diabetes mellitus residential insulin use: without residential use Qualified Code(s): E11.40 - Type 2 diabetes mellitus with diabetic neuropathy, unspecified (5) Osteomyelitis: CODE(S): M86.9 - Osteomyelitis, unspecified QUALIFIERS: Osteomyelitis type: unspecified type Osteomyelitis location: foot Laterality: left Qualified Code(s): M86.9 - Osteomyelitis, unspecified (6) Chronic ulcer of left foot with necrosis of bone: CODE(S): L97.524 - Non-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 (7) Dermatitis: CODE(S): L30.9 - Dermatitis, unspecified PLAN: Plan I reviewed and discussed his plan. Debridement was performed today as noted. He has recurrent dermatitis and has been seen previously by wood tile installation helper. CeraVe lotion works most of the time for his xerosis however it appears he is having an inflammatory flareup. He has had improvement in the past with a short course of topical steroid cream. He was advised to resume for the next 1 to 3 weeks. This will be reassessed at his follow-up. He was reassured the site does not look infected and there are no new wounds. To gently wash with soap and water and pat dry. Verbal consent was obtained to perform a delayed primary closure at last visit and it looks stable today. He was advised to change his dressing every other day with dry gauze. Suture removal will be considered in 1 to 2 weeks which may reveal a healed closure site or reduced ulcer size. He was previously diagnosed with osteomyelitis and underwent a fifth ray resection of the left foot at [facility] on 02-04-21. The diagnosis was confirmed with pathological acute osteomyelitis. The clearance fragment that was sent to pathology was negative for acute osteomyelitis. The clearance fragment that was sent to microbiology did not demonstrate some E. coli growth. He was discharged home from the hospital on oral Augmentin and Cipro; completed. This issue was resolved and addressed. Previous labs were reviewed. Hemoglobin A1c on 02-05-21 was 7.5%. diagnostic data: X-rays show fifth ray resection without soft tissue emphysema, osseous destruction , foreign body. Bone culture demonstrated acute osteomyelitis with anaerobic cocci and strep anginosis. He was started on 6- week course of oral Augmentin under the management of infectious disease was seen today. There is no purulence I do not recommend surgical intervention at this time. Now that he has a diagnosis of osteomyelitis, hyperbaric oxygen therapy may be a treatment option. This will be discussed at follow-up visit including risk benefits anticipated management and clearance process. It is noted his last echocardiogram demonstrated an EF of 40%. He reports he does not want to come in daily for this treatment and defers at this time. To wear white cotton socks and to avoid socks with color dyes. I recommend application of the cotton sock prior to use of Tubigrip which is recommended for local edema. I do not recommend more aggressive edema management due to his peripheral vascular disease status. I recommend continued offloading chronic wound site areas with a surgical shoe. To try to keep mostly weight on the heel. I recommend nutritional supplementation optimize healing including Neri nutritional supplement pack daily. It is also noted that his A1c is still elevated which also does not have a good healing outcome. I advised him on continued improved diabetic control. He will return to clinic in 1-2 weeks. Note: [employer] speech recognition nuclear medicine officer software was used to create portions of this document. Sound-alike and misspelled words, as well as other nuclear medicine officer errors may be contained in the documentation. The medical decision making level is low. There is noted low risk of morbidity after considering this treatment plan and diagnostic data. The problems addressed require a low medical decision making level which includes two or more minor problems, a stable chronic illness, or an acute uncomplicated illness or injury.
[2022-06-27 09:31] VITALS: BP 124/49; PULSE 70; RESP 16; TEMP 35.8; BMI 23.6
--- NOTE | 2022-06-27 09:58 | PN.PCM_ITS ---
History of Present Illness Date of Service: 06/27/22 Chief Complaint: Left foot ulcer History of Wound: This 76-year-old male was seen for left foot ulcer return to the wound healing center today. He had recent lower extremity vascular successful intervention performed with Dr. Bowens. It is noted he has a low ejection fraction and also small vessel disease is suspected. He had a fifth ray resection of the left foot at [facility] on 02/04/2021 for treatment of non-healing ulcer and osteomyelitis. He has been changing the dressing as advised with hydrogel. He is with his today. He denies pain today. Patient off antibiotics at this time. He had a recent delayed primary closure today. He defers hyperbaric oxygen therapy treatment. Patient using betamethasone cream to periwound area. Progress of Wound: stable Objective Data Objective Data Vital Signs: Vital Signs Temp Pulse Resp BP O2 Del Method 96.5 F L 70 16 124/49 H Room Air 06/27/22 09:31 06/27/22 09:31 06/27/22 09:31 06/27/22 09:31 06/27/22 09:31 Oxygen Delivery Method Room Air Weight: 60.781 kg Body Mass Index (BMI) 23.6 Physical Exam Extremity Extremity Narrative: No calf tenderness Diminished pulses Muscle wasting noted Skin Skin Narrative: no purulence, no streaking, no odor. atrophic and hairless skin. granular dorsal kasia ulcer inflammation with dry skin and returned erythema; inflammation noted. No adjacent bogginess or fluctuance or william necrosis. The delayed primary closure site is intact with sutures. There is no gapping or visualized drainage. The wound margin edges are coapting well. Neuro Neuro Narrative: lack of normal epicritic sensation via light touch is consistent with neuropathy status Debridement Note Debridement Note Post-Debridement Measurements and Additional Note: Post-Debridement Measurements/Treatment WC - Nurse 1 - General Ulcer Assessment Start: 06/21/22 13:23 Freq: Status: Active Protocol: JV Activity Type Activity Date Activity User E-sign Co-sign Detail Recorded Client Recorded Date Recorded By Document 06/21/22 13:24 RB [id number] 06/21/22 13:28 RB Document 06/27/22 09:31 BMF [id number] 06/27/22 09:35 BMF 06/21/22 06/27/22 13:24 09:31 - Today's Visit Information Type of service Follow-up Visit Follow-up Visit (Physician/DIE TRIPPER (Physician/DIE TRIPPER ) ) Arrival Mode Ambulatory Ambulatory Transfer Assistance None None Accompanied by Patient Identification Verified (Name & Yes Yes ) Patient Requires Transmission-Based No No Precautions Height and Weight Body Mass Index (BMI) 23.6 23.6 BMI Classification Normal Normal Vital Signs Temperature (97.8 F-99.1 F) 97 F L 96.5 F L Temperature Source Temporal Temporal Pulse Rate (60-100) 66 70 Pulse Location Monitor Monitor Respiratory Rate (12-18) 18 16 Respiratory rate source Observation Observation Oxygen Delivery Method Room Air Blood Pressure (90/60-120/80) 136/54 H 124/49 H Blood Pressure Mean (mm Hg) 81 74 Source Monitor Monitor Position Semi-Fowlers Sitting Blood Pressure Location Left Arm Right Arm History Since Last Visit- (Skip if this is Patient's initial visit) Have you changed medications since your No No last visit? Any new allergies or adverse reactions No No Had a fall/change in ADL's that may No No increase risk of falls Signs or symptoms of abuse and/or No No neglect since last visit Have you been in the hospital since your No No last visit? Has dressing in place as prescribed Yes Yes Has compression in place as prescribed No N/A Has offloadiing in place as prescribed Yes N/A Experienced any changes in pain level or No No management Left Footwear Surgical Shoe Surgical Shoe with pressure with pressure relief insole relief insole Right Footwear Regular Shoe Surgical Shoe with pressure relief insole Pain Scale: 0-10 Numeric Is Patient Pain Free? Yes Yes - Nurse 1 - General Ulcer Measurement Start: 06/21/22 13:23 Freq: Status: Active Protocol: Activity Type Activity Date Activity User E-sign Co-sign Detail Recorded Client Recorded Date Recorded By Document 06/21/22 13:24 RB [id number] 06/21/22 13:28 RB Document 06/27/22 09:31 [facility] [id number] 06/27/22 09:35 BM 06/21/22 06/27/22 13:24 09:31 Wound Center Nurse 1 #1- L LATERAL FOOT -Combined with other wound No No -Current Size (cm) - Length 0.1 0.1 -Current Size (cm) - Width 0.1 0.1 -Current Size (cm) - Depth 0.1 0.1 -Total Square Cm 0.01 0.01 -Epithelialization Medium 34-66% Large 67-100% -Tunneling No -Undermining/Tunneling No -Circular Undermining No -Exudate Amt Small -Exudate Type Serosanguineous -Wound Margin Distinct, Outline Attached -Granulation Amt Medium (34-66%) -Granulation Quality [place] -Slough/Fibrin Yes -Necrosis Amt Small (1-33%) -Necrotic Tissue Type Adherent Slough -Structure Exposed N/A -Texture (Kasia-wound Skin Appearance) Assessed Assessed, Scarring,Rash -Moisture (Kasia-wound Skin Appearance) Assessed Assessed,Dry/ Scaly -Color (Kasia-wound Skin Appearance) Assessed Assessed, Erythema -Temperature (Kasia-wound Skin No Abnormality No Abnormality Appearance) (Pt Warm) (Pt Warm) -Tenderness on Palpation (Kasia-wound No No Skin Appearance) -Ulcer Cleansing Wound Cleanser Rinsed/ Irrigated with Saline -Foul Odor after Cleansing No No -Anesthetic Used 4% Lidocaine Solution -Wound Comment(s) suture intact suture intact on wound #1 WC - Nurse 2 - General Ulcer CM Notes Start: 06/21/22 13:23 Freq: Status: Active Protocol: Activity Type Activity Date Activity User E-sign Co-sign Detail Recorded Client Recorded Date Recorded By Document 06/21/22 13:38 [id number] 06/21/22 13:39 Document 06/27/22 09:43 [id number] 06/27/22 09:46 06/21/22 06/27/22 13:38 09:43 Wound Center Nurse 2 #1- L LATERAL FOOT -Time 09:45 -Correct Patient No Yes -Correct Side, Site, Position No Yes -Correct Procedure No Yes -Procedure Performed No Yes -Type of Procedure Debridement -Clinical Debridement Subcutaneous -Tissue Removed Subcutaneous -Post Debridement (cm) - Length 0.1 -Post Debridement (cm) - Width 0.1 -Post Debridement (cm) - Depth 0.1 -Total Square (Post) (cm) 0.01 -Area of Debridement (cm) - Length 0.1 -Area of Debridement (cm) - Width 0.1 -Total Square (Area) (cm) 0.01 -Tunneling No -Undermining/Tunneling No -Circular Undermining No -Wound/Ulcer Outcome Not Healed Not Healed -Ulcer Cleansing Rinsed/ Irrigated with Saline -Foul Odor after Cleansing No -Bioengineered Tissue No -Bleeding Controlled with Pressure -Treatment Response Procedure Tolerated Well -Offloading Yes -Type of Offloading Surgical Shoe -Debridement - Subq, 1st 20sq cm Yes Pain Scale: 0-10 Numeric Is Patient Pain Free? Yes Yes - Nurse 3 - General Ulcer D/C NN Start: 06/21/22 13:23 Freq: Status: Active Protocol: Activity Type Activity Date Activity User E-sign Co-sign Detail Recorded Client Recorded Date Recorded By Document 06/21/22 13:44 [id number] 06/21/22 13:44 Document 06/27/22 09:53 [facility] [id number] 06/27/22 09:54 [facility] 06/21/22 06/27/22 13:44 09:53 Wound Care Nurse 3 #1- L LATERAL FOOT -Ulcer Cleansing Rinsed/ Rinsed/ Irrigated with Irrigated with Saline Saline -Foul Odor after Cleansing No No -Primary Dressing Applied Other -Other Dressing hydrogel -Primary Dressing Covered/Secured with Dry Gauze, Dry Gauze, Secured with Secured with Tape Tape Treatment Response Procedure Tolerated Well Pain Scale: 0-10 Numeric Is Patient Pain Free? Yes Yes - Visit Discharge Discharge Condition Stable Stable Ambulatory Status Ambulatory,Cane Ambulatory Transportation Private Auto Private Auto Accompanied by Medication Reconcilliation completed & Yes provided to patient/care provider Clinical Summary of Care Provided Yes Assessment/Plan Assessment/Plan (1) Peripheral vascular occlusive disease: CODE(S): I73.9 - Peripheral vascular disease, unspecified (2) Chronic ulcer of left foot with necrosis of bone: CODE(S): L97.524 - Non-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 (3) Dermatitis: CODE(S): L30.9 - Dermatitis, unspecified PLAN: Plan I reviewed and discussed his plan. Debridement was performed today as noted. 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 Patient will use betamethasone cream to periwound area to assist healing of his dermatitis. To gently wash with soap and water and pat dry. Verbal consent was obtained to perform a delayed primary closure at last visit and it looks stable today. He was advised to change his dressing every other day with dry gauze. Sutures aseptically removed today. Wound was excisionally debrided down to including level subcutaneous tissue of all nonviable tissue using 5 mm dermal curette without incident. Patient tolerated procedure well. Known anesthesia due to neuropathy. Hemostasis obtained with light compression. Pre and postdebridement measurements document nursing notes. He was previously diagnosed with osteomyelitis and underwent a fifth ray resection of the left foot at [facility] on 02-04-21. The diagnosis was confirmed with pathological acute osteomyelitis. The clearance fragment that was sent to pathology was negative for acute osteomyelitis. The clearance fragment that was sent to microbiology did not demonstrate some E. coli growth. He was discharged home from the hospital on oral Augmentin and Cipro; completed. This issue was resolved and addressed. Previous labs were reviewed. Hemoglobin A1c on 02-05-21 was 7.5%. diagnostic data: X-rays show fifth ray resection without soft tissue emphysema, osseous destruction , foreign body. Bone culture demonstrated acute osteomyelitis with anaerobic cocci and strep anginosis. He was started on 6- week course of oral Augmentin under the management of infectious disease was seen today. There is no purulence I do not recommend surgical intervention at this time. Now that he has a diagnosis of osteomyelitis, hyperbaric oxygen therapy may be a treatment option. This will be discussed at follow-up visit including risk benefits anticipated management and clearance process. It is noted his last echocardiogram demonstrated an EF of 40%. He reports he does not want to come in daily for this treatment and defers at this time. To wear white cotton socks and to avoid socks with color dyes. I recommend application of the cotton sock prior to use of Tubigrip which is recommended for local edema. I do not recommend more aggressive edema management due to his peripheral vascular disease status. I recommend continued offloading chronic wound site areas with a surgical shoe. To try to keep mostly weight on the heel. I recommend nutritional supplementation optimize healing including Neri nutritional supplement pack daily. It is also noted that his A1c is still elevated which also does not have a good healing outcome. I advised him on continued improved diabetic control. He will return to clinic in 1-2 weeks. Note: WebPT speech recognition assistant golf course superintendent software was used to create portions of this document. Sound-alike and misspelled words, as well as other assistant golf course superintendent errors may be contained in the documentation. The medical decision making level is low. There is noted low risk of morbidity after considering this treatment plan and diagnostic data. The problems addressed require a low medical decision making level which includes two or more minor problems, a stable chronic illness, or an acute uncomplicated illness or injury.
[2022-07-11 10:10] VITALS: BP 136/68; PULSE 72; TEMP 36.1; BMI 23.6
--- NOTE | 2022-07-11 10:11 | WC ---
hydrogel and gauze over healed out wound
--- NOTE | 2022-07-11 11:34 | PCM.WC.PN ---
History of Present Illness Date of Service: 07/11/22 Chief Complaint: Left foot ulcer History of Wound: 76-year-old male seen for left partial fourth and fifth ray resection site wound. Patient was seen in my office. Patient notes improvement of his wound at this time and ambulating in a surgical shoe without issue. Patient denies constitutional symptoms. Patient was seen by dermatology and was given a Kenalog injection which is resolved some dermatitis to his left foot. No other complaints at this time. Progress of Wound: stable Objective Data Objective Data Vital Signs: Vital Signs Temp Pulse Resp BP O2 Del Method 96.9 F L 72 16 136/68 H Room Air 07/11/22 10:10 07/11/22 10:10 06/27/22 09:31 07/11/22 10:10 06/27/22 09:31 Oxygen Delivery Method Room Air Weight: 60.781 kg Body Mass Index (BMI) 23.6 Physical Exam Narrative Neurovascular status unchanged at this time. Dermatologic full-thickness wound to lateral left foot has healed at this time. Resolved erythema edema. No gross deformity partial fourth and fifth ray resection noted to the left foot. Extremity Extremity Narrative: No calf tenderness Diminished pulses Muscle wasting noted Skin Skin Narrative: no purulence, no streaking, no odor. atrophic and hairless skin. granular dorsal kasia ulcer inflammation with dry skin and returned erythema; inflammation noted. No adjacent bogginess or fluctuance or william necrosis. The delayed primary closure site is intact with sutures. There is no gapping or visualized drainage. The wound margin edges are coapting well. Neuro Neuro Narrative: lack of normal epicritic sensation via light touch is consistent with neuropathy status Debridement Note Debridement Note Post-Debridement Measurements and Additional Note: Post-Debridement Measurements/Treatment - Nurse 1 - General Ulcer Assessment Start: 06/21/22 13:23 Freq: Status: Active Protocol: [email or web address].BRANNON Activity Type Activity Date Activity User E-sign Co-sign Detail Recorded Client Recorded Date Recorded By Document 06/21/22 13:24 RB [id number] 06/21/22 13:28 RB Document 06/27/22 09:31 [facility] [id number] 06/27/22 09:35 BM Document 07/11/22 10:10 [place] [id number] 07/11/22 10:12 [place] 06/21/22 06/27/2207/11/22 13:24 09:31 10:10 WC - Today's Visit Information Type of service Follow-up Visit Follow-up Visit Follow-up Visit (Physician/ASSOCIATE JUSTICE (Physician/ASSOCIATE JUSTICE (Physician/ASSOCIATE JUSTICE ) ) ) Arrival Mode Ambulatory Ambulatory Ambulatory Transfer Assistance None None Accompanied by Patient Identification Verified (Name & Yes Yes Yes ) Patient Requires Transmission-Based No No No Precautions Height and Weight Body Mass Index (BMI) 23.6 23.6 23.6 BMI Classification Normal Normal Normal Vital Signs Temperature (97.8 F-99.1 F) 97 F L 96.5 F L 96.9 F L Temperature Source Temporal Temporal Temporal Pulse Rate (60-100) 66 70 72 Pulse Location Monitor Monitor Monitor Respiratory Rate (12-18) 18 16 Respiratory rate source Observation Observation Oxygen Delivery Method Room Air Blood Pressure (90/60-120/80) 136/54 H 124/49 H 136/68 H Blood Pressure Mean (mm Hg) 81 74 90 Source Monitor Monitor Monitor Position Semi-Fowlers Sitting Blood Pressure Location Left Arm Right Arm History Since Last Visit- (Skip if this is Patient's initial visit) Have you changed medications since your No No No last visit? Any new allergies or adverse reactions No No No Had a fall/change in ADL's that may No No No increase risk of falls Signs or symptoms of abuse and/or No No No neglect since last visit Have you been in the hospital since your No No No last visit? Has dressing in place as prescribed Yes Yes Yes Has compression in place as prescribed No N/A N/A Has offloadiing in place as prescribed Yes N/A N/A Experienced any changes in pain level or No No No management Left Footwear Surgical Shoe Surgical Shoe Surgical Shoe with pressure with pressure with pressure relief insole relief insole relief insole Right Footwear Regular Shoe Surgical Shoe Surgical Shoe with pressure with pressure relief insole relief insole Pain Scale: 0-10 Numeric Is Patient Pain Free? Yes Yes Yes 07/11/22 10:11 Wound Center by Dominic Feng hydrogel and gauze over healed out wound Initialized on 07/11/22 10:11 - END OF NOTE WC - Nurse 1 - General Ulcer Measurement Start: 06/21/22 13:23 Freq: Status: Active Protocol: Activity Type Activity Date Activity User E-sign Co-sign Detail Recorded Client Recorded Date Recorded By Document 06/21/22 13:24 RB [id number] 06/21/22 13:28 RB Document 06/27/22 09:31 BM [id number] 06/27/22 09:35 BM 06/21/22 06/27/22 13:24 09:31 Wound Center Nurse 1 #1- L LATERAL FOOT -Combined with other wound No No -Current Size (cm) - Length 0.1 0.1 -Current Size (cm) - Width 0.1 0.1 -Current Size (cm) - Depth 0.1 0.1 -Total Square Cm 0.01 0.01 -Epithelialization Medium 34-66% Large 67-100% -Tunneling No -Undermining/Tunneling No -Circular Undermining No -Exudate Amt Small -Exudate Type Serosanguineous -Wound Margin Distinct, Outline Attached -Granulation Amt Medium (34-66%) -Granulation Quality [place] -Slough/Fibrin Yes -Necrosis Amt Small (1-33%) -Necrotic Tissue Type Adherent Slough -Structure Exposed N/A -Texture (Kasia-wound Skin Appearance) Assessed Assessed, Scarring,Rash -Moisture (Kasia-wound Skin Appearance) Assessed Assessed,Dry/ Scaly -Color (Kasia-wound Skin Appearance) Assessed Assessed, Erythema -Temperature (Kasia-wound Skin No Abnormality No Abnormality Appearance) (Pt Warm) (Pt Warm) -Tenderness on Palpation (Kasia-wound No No Skin Appearance) -Ulcer Cleansing Wound Cleanser Rinsed/ Irrigated with Saline -Foul Odor after Cleansing No No -Anesthetic Used 4% Lidocaine Solution -Wound Comment(s) suture intact suture intact on wound #1 WC - Nurse 2 - General Ulcer CM Notes Start: 06/21/22 13:23 Freq: Status: Active Protocol: Activity Type Activity Date Activity User E-sign Co-sign Detail Recorded Client Recorded Date Recorded By Document 06/21/22 13:38 [id number] 06/21/22 13:39 Document 06/27/22 09:43 [id number] 06/27/22 09:46 Document 07/11/22 09:57 [id number] 07/11/22 09:58 06/21/22 06/27/22 07/11/22 13:38 09:43 09:57 Wound Center Nurse 2 #1- L LATERAL FOOT -Time 09:45 -Correct Patient No Yes No -Correct Side, Site, Position No Yes No -Correct Procedure No Yes No -Procedure Performed No Yes No -Type of Procedure Debridement -Clinical Debridement Subcutaneous -Tissue Removed Subcutaneous -Post Debridement (cm) - Length 0.1 0 -Post Debridement (cm) - Width 0.1 0 -Post Debridement (cm) - Depth 0.1 0 -Total Square (Post) (cm) 0.01 0 -Area of Debridement (cm) - Length 0.1 0 -Area of Debridement (cm) - Width 0.1 0 -Total Square (Area) (cm) 0.01 0 -Tunneling No -Undermining/Tunneling No -Circular Undermining No -Wound/Ulcer Outcome Not Healed Not Healed Healed- Epithelialized -Ulcer Cleansing Rinsed/ Irrigated with Saline -Foul Odor after Cleansing No -Bioengineered Tissue No -Bleeding Controlled with Pressure -Treatment Response Procedure Tolerated Well -Offloading Yes -Type of Offloading Surgical Shoe -Debridement - Subq, 1st 20sq cm Yes Pain Scale: 0-10 Numeric Is Patient Pain Free? Yes Yes Yes WC - Nurse 3 - General Ulcer D/C NN Start: 06/21/22 13:23 Freq: Status: Active Protocol: Activity Type Activity Date Activity User E-sign Co-sign Detail Recorded Client Recorded Date Recorded By Document 06/21/22 13:44 [id number] 06/21/22 13:44 Document 06/27/22 09:53 [facility] [id number] 06/27/22 09:54 [facility] Document 07/11/22 10:10 [place] [id number] 07/11/22 10:12 [place] 06/21/22 06/27/22 07/11/22 13:44 09:53 10:10 Wound Care Nurse 3 #1- L LATERAL FOOT -Ulcer Cleansing Rinsed/ Rinsed/ Irrigated with Irrigated with Saline Saline -Foul Odor after Cleansing No No -Primary Dressing Applied Other -Other Dressing hydrogel -Primary Dressing Covered/Secured with Dry Gauze, Dry Gauze, Secured with Secured with Tape Tape Treatment Response Procedure Tolerated Well Vital Signs Temperature (97.8 F-99.1 F) 96.9 F L Temperature Source Temporal Pulse Rate (60-100) 72 Pulse Location Monitor Blood Pressure (90/60-120/80) 136/68 H Blood Pressure Mean (mm Hg) 90 Source Monitor Pain Scale: 0-10 Numeric Is Patient Pain Free? Yes Yes Yes WC - Visit Discharge Discharge Condition Stable Stable Stable Ambulatory Status Ambulatory,Cane Ambulatory Ambulatory Transportation Private Auto Private Auto Private Auto Accompanied by Medication Reconcilliation completed & Yes Yes provided to patient/care provider Clinical Summary of Care Provided Yes Yes 07/11/22 10:11 Wound Center by Dominic Feng and gauze over healed out wound Initialized on 07/11/22 10:11 - END OF NOTE Assessment/Plan Assessment/Plan (1) Peripheral vascular occlusive disease: CODE(S): I73.9 - Peripheral vascular disease, unspecified (2) Chronic ulcer of left foot with necrosis of bone: CODE(S): L97.524 - Non-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 PLAN: Patient examined evaluate all fine discussed patient in great detail. Wound healed at this time will discharge from the wound care center. Patient will continue to observe the site daily for recurrence. I have recommended applying antibiotic ointment to help soften the area and allow for scar tissue remodeling. Patient will follow up in my clinic at which time we will get custom inserts with diabetic shoes to prevent any recurrent wound formation allow the patient to return to a more normal ambulate patient's status. Patient will follow up for these. We will also perform at risk nail care for the patient with every 9-week checks. (3) Dermatitis: CODE(S): L30.9 - Dermatitis, unspecified PLAN: Plan I reviewed and discussed his plan. Debridement was performed today as noted. He has recurrent dermatitis and has been seen previously by cotton ginner helper. Patient will use betamethasone cream to periwound area to assist healing of his dermatitis. To gently wash with soap and water and pat dry. Verbal consent was obtained to perform a delayed primary closure at last visit and it looks stable today. He was advised to change his dressing every other day with dry gauze. Sutures aseptically removed today. Wound was excisionally debrided down to including level subcutaneous tissue of all nonviable tissue using 5 mm dermal curette without incident. Patient tolerated procedure well. Known anesthesia due to neuropathy. Hemostasis obtained with light compression. Pre and postdebridement measurements document nursing notes. He was previously diagnosed with osteomyelitis and underwent a fifth ray resection of the left foot at [facility] on 02-04-21. The diagnosis was confirmed with pathological acute osteomyelitis. The clearance fragment that was sent to pathology was negative for acute osteomyelitis. The clearance fragment that was sent to microbiology did not demonstrate some E. coli growth. He was discharged home from the hospital on oral Augmentin and Cipro; completed. This issue was resolved and addressed. Previous labs were reviewed. Hemoglobin A1c on 02-05-21 was 7.5%. diagnostic data: X-rays show fifth ray resection without soft tissue emphysema, osseous destruction , foreign body. Bone culture demonstrated acute osteomyelitis with anaerobic cocci and strep anginosis. He was started on 6-week course of oral Augmentin under the management of infectious disease was seen today. There is no purulence I do not recommend surgical intervention at this time. Now that he has a diagnosis of osteomyelitis, hyperbaric oxygen therapy may be a treatment option. This will be discussed at follow-up visit including risk benefits anticipated management and clearance process. It is noted his last echocardiogram demonstrated an EF of 40%. He reports he does not want to come in daily for this treatment and defers at this time. To wear white cotton socks and to avoid socks with color dyes. I recommend application of the cotton sock prior to use of Tubigrip which is recommended for local edema. I do not recommend more aggressive edema management due to his peripheral vascular disease status. I recommend continued offloading chronic wound site areas with a surgical shoe. To try to keep mostly weight on the heel. I recommend nutritional supplementation optimize healing including Neri nutritional supplement pack daily. It is also noted that his A1c is still elevated which also does not have a good healing outcome. I advised him on continued improved diabetic control. He will return to clinic in 1-2 weeks. Note: [employer] speech recognition online communications manager software was used to create portions of this document. Sound-alike and misspelled words, as well as other online communications manager errors may be contained in the documentation. The medical decision making level is low. There is noted low risk of morbidity after considering this treatment plan and diagnostic data. The problems addressed require a low medical decision making level which includes two or more minor problems, a stable chronic illness, or an acute uncomplicated illness or injury.
== END 2022-07-11 15:13 | disposition home or self-care (01) ==
LOC: WC 09:15
PROVIDERS: PCP Nurse Practitioner Family; Referring Provider Podiatrist; Visit Provider Podiatrist
DX: E11.621 Type 2 diabetes mellitus with foot ulcer (principal); E11.51 Type 2 diabetes mellitus with diabetic peripheral angiopathy without gangrene; L97.524 Non-pressure chronic ulcer of other part of left foot with necrosis of bone; M86.172 Other acute osteomyelitis, left ankle and foot; E11.40 Type 2 diabetes mellitus with diabetic neuropathy, unspecified; E11.69 Type 2 diabetes mellitus with other specified complication; L30.9 Dermatitis, unspecified; Z79.84 Long term (current) use of oral hypoglycemic drugs; Z79.82 Long term (current) use of aspirin; Z79.02 Long term (current) use of antithrombotics/antiplatelets; Z79.899 Other long term (current) drug therapy
CPT/HCPCS: 11042; 99212; 99213; G0463

== ENCOUNTER → 2022-07-18 | Outpatient (CLI) | payer MEDICARE, SELFPAY ==
[2022-07-18 12:07] LABS: Absolute Lymphocyte Count 1.18 X10^3/uL (0.83-4.51); Absolute Neutrophil Count 7.7 X10^3/uL (2.0-7.7); Basophil# 0.04 X10^3/uL; Basophil% 0.4 % (0-1); Eosinophil# 0.03 X10^3/uL; Eosinophils% 0.3 % (0-5); Hematocrit 43.5 % (40-54); Hemoglobin 14.3 g/dL (13.0-16.5); Lymphocyte # 1.18 X10^3/ul (0.83-4.51); Lymphocyte % 11.9 % (19-41); Mean Corp Hgb Conc 32.9 g/dL (32-36); Mean Corpuscular Hgb 28.9 pg (27.0-32.0); Mean Corpuscular Volume 87.9 fL (80-94); Mean Platelet Vol. 12.1 fl (6.2-12.0); Monocyte# 0.99 X10^3/uL; Monocyte% 9.9 % (0-10); NRBC Flagged by Analyzer 0 % (0-5); Neutrophil # 7.66 X10^3/uL (2.7-7.7); Platelet Count 259 K/mm3 (150-450); RBC Distribution Width CV 12.8 % (11.6-14.6); RBC Distribution Width SD 41.1 fl (35.1-43.9); Red Blood Count 4.95 M/mm3 (4.6-6.2)
[2022-07-18 13:08] LABS: Microalbumin:Creatinine Ratio 126.9 mg/g CRE (<30 mg/g CRE)
[2022-07-18 14:09] LABS: ALB/GLOB Ratio 0.8 RATIO (0.9-2.4); AST(SGOT) 18 U/L (15-37); Alanine Aminotransfer ALT/SGPT 25 U/L (16-61); Albumin, Serum 3.5 g/dL (3.2-5.0); Alkaline Phosphatase 106 U/L (45-117); Anion Gap 11 (5-15); BUN 74 mg/dL (7-18); BUN/Creat Ratio 23.4 RATIO (10-20); Calcium,Total 9.3 mg/dL (8.5-10.1); Chloride 95 mmol/L (98-107); Creatinine, Serum 3.16 mg/dL (0.70-1.30); EST Glomerular Filtration Rate 20 mL/min (>60); Est Glom Filt Rate - Afr Amer 25 mL/min (>60); Globulin 4.4 g/dL (2.2-4.2); Glucose 574 mg/dL (74-106); Potassium 4.7 mmol/L (3.5-5.1); Protein, Total 7.9 g/dL (6.4-8.2); Sodium Level 128 mmol/L (136-145)
== END | disposition home or self-care (01) ==
LOC: MFPLAB 11:04
PROVIDERS: PCP Nurse Practitioner Family; Visit Provider Family Medicine
DX: E11.40 Type 2 diabetes mellitus with diabetic neuropathy, unspecified (principal)
CPT/HCPCS: 36415; 80053; 82043; 82570; 85025

== ENCOUNTER → 2022-12-05 | Outpatient (CLI) | payer MEDICARE, SELFPAY ==
[2022-12-05 12:23] LABS: Microalbumin,Random Urine 57.4 mg/L (NO RANGE EST.)
[2022-12-05 12:28] LABS: Erythrocyte Sedimentation Rate 17 mm/hr (0-20)
[2022-12-05 13:06] LABS: Anion Gap 9 (5-15); BUN 19 mg/dL (7-18); BUN/Creat Ratio 8.4 RATIO (10-20); Calcium,Total 9.2 mg/dL (8.5-10.1); Chloride 104 mmol/L (98-107); Cholesterol 141 mg/dL (200); Creatinine, Serum 2.26 mg/dL (0.70-1.30); EST Glomerular Filtration Rate 30 mL/min (>60); Est Glom Filt Rate - Afr Amer 36 mL/min (>60); Glucose 265 mg/dL (74-106); High Density Lipoprotein 31 mg/dL; Potassium 3.1 mmol/L (3.5-5.1); Sodium Level 140 mmol/L (136-145); Triglycerides 225 mg/dL; Very Low Density Lipoprotein 45 mg/dL (5-40)
== END | disposition home or self-care (01) ==
PROVIDERS: PCP Family Medicine; Referring Provider Family Medicine; Visit Provider Family Medicine
DX: N18.4 Chronic kidney disease, stage 4 (severe) (principal); E78.00 Pure hypercholesterolemia, unspecified
CPT/HCPCS: 36415; 80048; 80061; 82043; 85652

== ENCOUNTER 2022-12-12 07:57 | Outpatient (RCR) | payer MEDICARE, SELFPAY ==
[2022-12-12 08:13] VITALS: BP 113/66; PULSE 70; RESP 18; TEMP 36.3; BMI 21.9
--- NOTE | 2022-12-12 08:57 | HP.PCM_ITS ---
History of Present Illness Date of Service: 12/12/22 Chief Complaint: Diabetic left foot ulcer with dermatomycosis History of Wound: This is a 77-year-old male who presents accompanied by his . He has been treated in the past for an ulceration on the lateral aspect of his left foot. He has previously undergone left fifth ray resection on February 04, 2021. He has developed left lateral foot ulceration at this site in the past, which subsequently healed. Medical records indicate that the patient was treated for a chronic ulceration at the site with necrosis of bone in June 2022, which was healed by conservative means. Approximately 2 weeks prior to his current presentation, another superficial ulceration appeared. He presents at this time for evaluation and management. The patient is ambulatory. He suffers from multiple pre-existing medical conditions, as listed below. 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 There is no mention of osteomyelitis. It is noted that the patient has a history of peripheral arterial occlusive disease, and underwent balloon angioplasty of the left superficial femoral artery and popliteal artery by Dr. Emerson Bowens on January 20, 2021. Prior to that, a noninvasive lower extremity arterial study had revealed moderate to severe peripheral arterial occlusive disease at digital level bilaterally. [facility] Medical History Anemia Anemia of chronic renal failure, stage 4 (severe) Atherosclerosis of coronary artery bypass graft without angina pectoris Atherosclerosis of wainwright artery of lower extremity with ulceration of foot Bilateral pleural effusion Callus of foot Cellulitis of left lower limb Chronic HFrEF (heart failure with reduced ejection fraction) Chronic renal failure, stage 4 (severe) Claudication of both lower extremities Delayed wound healing Dermatitis of left foot Dermatomycosis of foot Diabetes mellitus type 2 in nonobese Diabetes mellitus with neuropathy Diabetic foot ulcer associated with diabetes mellitus due to underlying condition Elevated PSA, between 10 and less than 20 ng/ml Eschar of foot Essential (primary) hypertension GERD (gastroesophageal reflux disease) Hammertoe of left foot HLD (hyperlipidemia) Hypokalemia Incarcerated right inguinal hernia Ischemic cardiomyopathy Malnutrition Mass of right breast Non-pressure chronic ulcer of other part of left foot with fat layer exposed Non-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 Osteomyelitis Peripheral vascular disease Peripheral vascular occlusive disease Right bundle branch block (RBBB) Secondary pulmonary arterial hypertension Tailor's bunion of left foot Type 2 diabetes mellitus Ulcer of left foot with fat layer exposed 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 Ulcer of left foot with necrosis of muscle Xerosis cutis Home Medications aspirin 81 mg chewable tablet 81 mg PO DAILY@0800 Check with primary doctor 09/29/14 [History Last Taken 02/03/21 06:00] pantoprazole 40 mg tablet,delayed release 40 mg PO DAILY Check with primary doctor 30 days #30 tabs 02/07/18 [History Last Taken 02/04/21 06:00] ferrous sulfate 325 mg (65 mg iron) tablet 325 mg PO DAILY@1200 Check with primary doctor 03/19/19 [History Last Taken 05/26/19] trazodone 50 mg tablet 50 mg PO QHS PRN Sleep 09/22/20 [History Last Taken Unknown] gabapentin 100 mg capsule 100 mg PO QHS 12/22/20 [History Last Taken Unknown] ammonium lactate 12 % topical cream 1 applic topical DAILY #140 grams 10/19/21 [Rx Last Taken Unknown] atorvastatin 80 mg tablet 80 mg PO QHS cholesterol #90 tabs 01/30/22 [Rx Last Taken Unknown] carvedilol 12.5 mg tablet 12.5 mg PO BID #180 tabs 03/29/22 [Rx Last Taken Unknown] escitalopram oxalate 20 mg tablet 20 mg PO DAILY 03/29/22 [History Last Taken Unknown] furosemide 20 mg tablet 60 mg PO DAILY 90 days #270 tabs 03/29/22 [Rx Last Taken Unknown] clopidogrel 75 mg tablet 75 mg PO DAILY #90 tabs 08/02/22 [Rx Last Taken Unknown] hydralazine 25 mg tablet 25 mg PO TID #270 tabs 08/04/22 [Rx Last Taken Unknown] insulin glargine 100 unit/mL (3 mL) subcutaneous pen 15 unit subcut BID 10/02/22 [History Last Taken Unknown] dulaglutide 0.75 mg/0.5 mL subcutaneous pen injector (Trulicity) 0.75 mg subcut QWEEK 12/12/22 [History Last Taken Unknown] Allergy/AdvReac Type Severity Reaction Status Date / Time atorvastatin [From Lipitor] AdvReac Mild myalgias Verified 12/12/22 08:33 Family History Brother CAD (coronary artery disease) Hx CABG Surgical History Amputated toe of left foot (01/2021) H/O coronary artery bypass surgery (04/30/14) History of angioplasty of peripheral vessel (01/20/21) History of inguinal hernia repair History of left heart catheterization (LHC) (03/20/19) History of right breast biopsy (03/2021) History of right inguinal hernia repair (03/2018) History of thoracentesis Social History Smoking Status: Never smoker alcohol intake: never substance use type: does not use caffeine: No what type of physical activity do you participate in: none seatbelt use: always do you feel safe at home: Yes Vital Signs Vital Signs Vital Signs: 12/12/22 08:13 Temperature 97.4 F L Temperature Source Temporal Pulse Rate 70 Respiratory Rate 18 Blood Pressure 113/66 Blood Pressure Mean 81 Blood Pressure Source Monitor Weight Weight: 135 lb 9.985 oz Body Mass Index (BMI) 21.9 Physical Exam Const alert, oriented x3, no apparent distress, average body habitus and well n ourished General Appearance: cooperative, comfortable, well kempt and well developed Orientation / Consciousness: awake, oriented to person, oriented to place and oriented to time HEENT normocephalic, head/scalp atraumatic and hearing grossly normal bilaterally Head and Scalp: normal to inspection, normocephalic and atraumatic Face and Sinus: normal facial exam Nose: external nose normal External Ear: external ears normal Eyes PERRL and EOMs intact bilaterally General Eye: normal appearance of both eyes Neck full ROM Resp normal respiratory effort, normal air movement, no retractions and no use of accessory muscles Effort and Inspection: able to speak in complete sentences Extremity no calf tenderness General Extremity: Negative for clubbing or cyanosis Skin Wound Narrative: A left fifth ray amputation is noted. Mild erythema is noted to encompass the lateral aspect of the left foot. There is a linear wound on the left lateral foot, the dimensions of which are documented elsewhere. There is a moderate amount of sloughing skin surrounding the wound, and bioburden noted within the wound itself. The periwound erythema appears consistent with a dermatitic or mycotic process. No significant swelling is noted in the patient's left lower extremity. Neuro oriented x3, CN's II-XII intact bilaterally, moves all extremities and no focal motor deficits Sensorium / Orientation: awake, alert, oriented to person, oriented to place and oriented to time Speech: speech normal Psych Appearance: grossly normal and appropriate Attitude: calm Activity / Motor Behavior: appropriate eye contact Speech: normal speech Mood & Affect: euthymic mood Thought Process: normal thought process Thought Content: normal thought content Attention / Concentration: attention grossly intact Debridement Note Debridement Note Wound debrided: Left lateral foot Laterality: Left Type of Debridement: Excisional debridement Anesthesia Used: 5% Lidocaine Gel Depth: Down to and including healthy tissue and in the subcutaneous layer Percentage of wound debrided: 100 Instrument Used: 5mm curette Tissue Removed: Bioburden and sloughing epidermis Severity: Fat Layer Exposed Amount of bleeding with debridement: Mild Bleeding Controlled with: Compression and gauze Patient tolerated procedure: Patient tolerated procedure well Post-Debridement Measurements and Additional Note: Post-Debridement Measurements/Treatment - Nurse 1 - General Ulcer Assessment Start: 12/12/22 08:13 Freq: Status: Active Protocol: [email or web address] Activity Type Activity Date Activity User E-sign Co-sign Detail Recorded Client Recorded Date Recorded By Document 12/12/22 08:13 DL [id number] 12/12/22 08:29 DL 12/12/22 08:13 - Today's Visit Information Type of service Nurse-only Visit Arrival Mode Ambulatory Transfer Assistance None Patient Identification Verified (Name & Yes ) Patient Requires Transmission-Based No Precautions Finger Stick Blood Sugar(mg/dl) (if 139 indicated): Blood Sugar Stated by Patient Height and Weight Height 5 ft 6 in Weight 135 lb 9.985 oz Weight in Pounds 135.6 lbs Body Mass Index (BMI) 21.9 BMI Classification Normal BSA - Terri 1.70 Vital Signs Temperature (97.8 F-99.1 F) 97.4 F L Temperature Source Temporal Pulse Rate (60-100) 70 Pulse Location Monitor Respiratory Rate (12-18) 18 Respiratory rate source Observation Blood Pressure (90/60-120/80) 113/66 Blood Pressure Mean 81 Source Monitor History Since Last Visit- (Skip if this is Patient's initial visit) Left Footwear Surgical Shoe with pressure relief insole Pain Scale: 0-10 Numeric Is Patient Pain Free? Yes Neuropathy Assessment Feet - Top Side and Bottom <Entered> (a) Communication Assessment Preferred language U[place] Able to Read Yes Able to Write No Communication Tools None Caregiver Communication Skills No Impairment Impairment Teaching Assessment Preferences Verbal,Written, Demonstration Barriers to Learning Unable to Comprehend Readiness To Learn Good Willingness to Engage in Self Management Med Activies Readiness to Engage in Self Management Med Activities Anxiety Level Calm Cooperation Cooperative Perception Coherent Interest in Health Problem Asks Questions Education Importance Acknowledges Need Does Patient Smoke tobacco or other No substances Smoking Status Never smoker Is Patient Diabetic Yes Functional Assessment Recent Decline in Ability to Perform Denies Any Declines Teaching: Wound Center Discharge Instructions -Person Taught Patient,Family Skin Care -Person Taught Patient,Family Dressing Your Wound -Person Taught Patient,Family *Nutrition -Person Taught Patient,Family Eliminating Foot Pressure -Person Taught Patient,Family *Welcome to the Wound Center -Person Taught Patient,Family (a) 1 - + WC - Nurse 1 - General Ulcer Measurement Start: 12/12/22 08:13 Freq: Status: Active Protocol: Activity Type Activity Date Activity User E-sign Co-sign Detail Recorded Client Recorded Date Recorded By Document 12/12/22 08:13 DL [id number] 12/12/22 08:29 DL 12/12/22 08:13 Wound Center Nurse 1 #5 L Lat foot/ Amp site -Current Size (cm) - Length 1.1 -Current Size (cm) - Width 0.2 -Current Size (cm) - Depth 0.2 -Total Square Cm 0.22 -Photo Taken Yes -Exudate Amt None Present -Wound Margin Fibrotic Scar, Thickened Scar -Granulation Amt Large (67-100%) -Granulation Quality [place] -Necrosis Amt Small (1-33%) -Necrotic Tissue Type Adherent Slough -Structure Exposed N/A -Texture (Kasia-wound Skin Appearance) Excoriation, Scarring,Rash -Moisture (Kasia-wound Skin Appearance) Dry/Scaly -Color (Kasia-wound Skin Appearance) No Abnormality -Temperature (Kasia-wound Skin No Abnormality Appearance) (Pt Warm) -Tenderness on Palpation (Kasia-wound No Skin Appearance) -Ulcer Cleansing Soap and Water -Foul Odor after Cleansing No -Anesthetic Used 5% Lidocaine Gel WC - Nurse 2 - General Ulcer CM Notes Start: 12/12/22 08:13 Freq: Status: Active Protocol: Activity Type Activity Date Activity User E-sign Co-sign Detail Recorded Client Recorded Date Recorded By Document 12/12/22 08:41 MW [id number] 12/12/22 08:54 MW 12/12/22 08:41 Wound Center Nurse 2 -Time 08:41 -Correct Patient Yes -Correct Side, Site, Position Yes -Correct Procedure Yes -Procedure Performed Yes -Type of Procedure Debridement -Clinical Debridement Subcutaneous -Tissue Removed Subcutaneous -Post Debridement (cm) - Length 1.7 -Post Debridement (cm) - Width 0.4 -Post Debridement (cm) - Depth 0.1 -Total Square (Post) (cm) 0.68 -Area of Debridement (cm) - Length 1.7 -Area of Debridement (cm) - Width 0.4 -Total Square (Area) (cm) 0.68 -Tunneling No -Undermining/Tunneling No -Circular Undermining No -Wound/Ulcer Outcome Not Healed -Ulcer Cleansing Rinsed/ Irrigated with Saline -Foul Odor after Cleansing No -Bioengineered Tissue No -Bleeding Controlled with Pressure -Treatment Response Procedure Tolerated Well -Offloading No -Debridement - Subq, 1st 20sq cm Yes Pain Scale: 0-10 Numeric Is Patient Pain Free? Yes - Nurse 3 - General Ulcer D/C NN Start: 12/12/22 08:13 Freq: Status: Active Protocol: Activity Type Activity Date Activity User E-sign Co-sign Detail Recorded Client Recorded Date Recorded By Document 12/12/22 08:56 MW [id number] 12/12/22 08:56 MW 12/12/22 08:56 Wound Care Center Nurse 3 #5 L Lat foot/ Amp site -Ulcer Cleansing Rinsed/ Irrigated with Saline -Foul Odor after Cleansing No -Negative Pressure Wound Therapy N/A -Primary Dressing Applied C Hydrogel ($) -Primary Dressing Covered/Secured with Dry Gauze & Roll Gauze, Secured with Tape Treatment Response Procedure Tolerated Well Pain Scale: 0-10 Numeric Is Patient Pain Free? Yes Teaching: Wound Center Dressing Your Wound -Person Taught Patient -Teaching Method Discussion -Response to teaching Verbalize understanding WC - Visit Discharge Discharge Condition Stable Ambulatory Status Ambulatory Transportation Private Auto Accompanied by Medication Reconcilliation completed & No provided to patient/care provider Clinical Summary of Care Provided Yes Assessment/Plan Assessment/Plan (1) Diabetic foot ulcer associated with diabetes mellitus due to underlying c ondition: CODE(S): E08.621 - Diabetes mellitus due to underlying condition with foot ulcer; L97.509 - Non-pressure chronic ulcer of other part of unspecified foot with unspecified severity (2) Atherosclerosis of wainwright artery of lower extremity with ulceration of foot: CODE(S): I70.25 - Atherosclerosis of wainwright arteries of other extremities with ulceration; L97.509 - Non-pressure chronic ulcer of other part of unspecified foot with unspecified severity (3) Dermatomycosis of foot: CODE(S): B36.9 - Superficial mycosis, unspecified (4) Atherosclerosis of coronary artery bypass graft without angina pectoris: CODE(S): I25.810 - Atherosclerosis of coronary artery bypass graft(s) without angina pectoris QUALIFIERS: [place] vs. transplanted heart: wainwright heart Qualified Code(s): I25.810 - Atherosclerosis of coronary artery bypass graft(s) without angina pectoris (5) H/O coronary artery bypass surgery: CODE(S): Z95.1 - Presence of aortocoronary bypass graft (6) Ischemic cardiomyopathy: CODE(S): I25.5 - Ischemic cardiomyopathy (7) Chronic HFrEF (heart failure with reduced ejection fraction): CODE(S): I50.22 - Chronic systolic (congestive) heart failure (8) Right bundle branch block (RBBB): CODE(S): I45.10 - Unspecified right bundle-branch block (9) Secondary pulmonary arterial hypertension: CODE(S): I27.21 - Secondary pulmonary arterial hypertension (10) Essential (primary) hypertension: CODE(S): I10 - Essential (primary) hypertension (11) HLD (hyperlipidemia): CODE(S): E78.5 - Hyperlipidemia, unspecified QUALIFIERS: Hyperlipidemia type: pure hypercholesterolemia Qualified Code(s): E78.00 - Pure hypercholesterolemia, unspecified; E78.0 - Pure hypercholesterolemia (12) Type 2 diabetes mellitus: CODE(S): E11.9 - Type 2 diabetes mellitus without complications (13) Peripheral vascular occlusive disease: CODE(S): I73.9 - Peripheral vascular disease, unspecified (14) Onychauxis: CODE(S): 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 According to the patient and his , it has been present for approximately 2 weeks, though the patient has had an ulceration at the site previously, which was healed by conservative means. Of note, the patient underwent left fifth ray resection in [address] Mandujano. He is known to be diabetic and to have a history of peripheral arterial occlusive disease, for which he underwent endovascular revascularization in January 2021. The patient has been advised to optimize his diabetic control, and to consume a nutritious, well-balanced diet. We are to implement the use of collagen hydrogel topically at the site of the ulceration on a daily basis. The periwound erythema appears to represent a dermatomycosis, and a prescription has been provided for Lotrisone cream 1%, to be applied topically twice daily. The patient is return in 1 week for reevaluation. Additional measures will be considered based upon the patient's evolving clinical course. Total time: 60 minutes
== END 2022-12-12 23:59 | disposition home or self-care (01) ==
LOC: WC 07:57
PROVIDERS: PCP Family Medicine; Visit Provider Surgery
DX: E11.621 Type 2 diabetes mellitus with foot ulcer (principal); E11.51 Type 2 diabetes mellitus with diabetic peripheral angiopathy without gangrene; Z89.422 Acquired absence of other left toe(s); L97.522 Non-pressure chronic ulcer of other part of left foot with fat layer exposed; I13.0 Hypertensive heart and chronic kidney disease with heart failure and stage 1 through stage 4 chronic kidney disease, or unspecified chronic kidney disease; I50.22 Chronic systolic (congestive) heart failure; E11.42 Type 2 diabetes mellitus with diabetic polyneuropathy; E11.22 Type 2 diabetes mellitus with diabetic chronic kidney disease; N18.4 Chronic kidney disease, stage 4 (severe); E78.00 Pure hypercholesterolemia, unspecified; I25.10 Atherosclerotic heart disease of native coronary artery without angina pectoris; D63.1 Anemia in chronic kidney disease; Z79.82 Long term (current) use of aspirin
CPT/HCPCS: 11042; 99213; G0463

== ENCOUNTER 2023-01-02 10:45 | Outpatient (RCR) | payer MEDICARE, SELFPAY ==
[2022-12-13 00:38] VITALS: BP 113/66; PULSE 70; RESP 18; TEMP 36.3; BMI 21.9
[2022-12-19 10:22] VITALS: BP 126/63; PULSE 66; TEMP 35.3; BMI 21.9
--- NOTE | 2022-12-19 13:10 | PCM.WC.HP ---
History of Present Illness Date of Service: 12/19/22 Chief Complaint: Diabetic left foot ulcer with dermatomycosis History of Wound: This is a 77-year-old diabetic male who has been treated in the past for an ulceration on the lateral aspect of his left foot. He has previously undergone left fifth ray resection on February 04, 2021. He developed left lateral foot ulceration at this site in the past, which subsequently healed. Medical records indicate that the patient was treated for a chronic ulceration at the site with necrosis of bone in June 2022, which was healed by conservative means. Approximately 2 weeks prior to his current presentation, another superficial ulceration appeared. He presented at this time for evaluation and management. The patient is ambulatory. He suffers from multiple pre-existing medical conditions, as listed below. 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 There is no mention of osteomyelitis. It is noted that the patient has a history of peripheral arterial occlusive disease, and underwent balloon angioplasty of the left superficial femoral artery and popliteal artery by Dr. Emerson Bowens on January 20, 2021. Prior to that, a noninvasive lower extremity arterial study had revealed moderate to severe peripheral arterial occlusive disease at digital level bilaterally. 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 Bilateral pleural effusion Callus of foot Cellulitis of left lower limb Chronic HFrEF (heart failure with reduced ejection fraction) Chronic renal failure, stage 4 (severe) Claudication of both lower extremities Delayed wound healing Dermatitis of left foot Dermatomycosis of foot Diabetes mellitus type 2 in nonobese Diabetes mellitus with neuropathy Diabetic foot ulcer associated with diabetes mellitus due to underlying condition Elevated PSA, between 10 and less than 20 ng/ml Eschar of foot Essential (primary) hypertension GERD (gastroesophageal reflux disease) Hammertoe of left foot HLD (hyperlipidemia) Hypokalemia Incarcerated right inguinal hernia Ischemic cardiomyopathy Malnutrition Mass of right breast Non-pressure chronic ulcer of other part of left foot with fat layer exposed Non-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 Osteomyelitis Peripheral vascular disease Peripheral vascular occlusive disease Right bundle branch block (RBBB) Secondary pulmonary arterial hypertension Tailor's bunion of left foot Type 2 diabetes mellitus Ulcer of left foot with fat layer exposed 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 Ulcer of left foot with necrosis of muscle Xerosis cutis Home Medications aspirin 81 mg chewable tablet 81 mg PO DAILY@0800 Check with primary doctor 09/29/14 [History Last Taken 02/03/21 06:00] pantoprazole 40 mg tablet,delayed release 40 mg PO DAILY Check with primary doctor 30 days #30 tabs 02/07/18 [History Last Taken 02/04/21 06:00] ferrous sulfate 325 mg (65 mg iron) tablet 325 mg PO DAILY@1200 Check with primary doctor 03/19/19 [History Last Taken 05/26/19] trazodone 50 mg tablet 50 mg PO QHS PRN Sleep 09/22/20 [History Last Taken Unknown] gabapentin 100 mg capsule 100 mg PO QHS 12/22/20 [History Last Taken Unknown] ammonium lactate 12 % topical cream 1 applic topical DAILY #140 grams 10/19/21 [Rx Last Taken Unknown] atorvastatin 80 mg tablet 80 mg PO QHS cholesterol #90 tabs 01/30/22 [Rx Last Taken Unknown] carvedilol 12.5 mg tablet 12.5 mg PO BID #180 tabs 03/29/22 [Rx Last Taken Unknown] escitalopram oxalate 20 mg tablet 20 mg PO DAILY 03/29/22 [History Last Taken Unknown] furosemide 20 mg tablet 60 mg PO DAILY 90 days #270 tabs 03/29/22 [Rx Last Taken Unknown] clopidogrel 75 mg tablet 75 mg PO DAILY #90 tabs 08/02/22 [Rx Last Taken Unknown] hydralazine 25 mg tablet 25 mg PO TID #270 tabs 08/04/22 [Rx Last Taken Unknown] insulin glargine 100 unit/mL (3 mL) subcutaneous pen 15 unit subcut BID 10/02/22 [History Last Taken Unknown] dulaglutide 0.75 mg/0.5 mL subcutaneous pen injector (Trulicity) 0.75 mg subcut QWEEK 12/12/22 [History Last Taken Unknown] Allergy/AdvReac Type Severity Reaction Status Date / Time atorvastatin [From Lipitor] AdvReac Mild myalgias Verified 12/12/22 08:33 Family History Brother CAD (coronary artery disease) Hx CABG Surgical History Amputated toe of left foot (01/2021) H/O coronary artery bypass surgery (04/30/14) History of angioplasty of peripheral vessel (01/20/21) History of inguinal hernia repair History of left heart catheterization (LHC) (03/20/19) History of right breast biopsy (03/2021) History of right inguinal hernia repair (03/2018) History of thoracentesis Social History Smoking Status: Never smoker alcohol intake: never substance use type: does not use caffeine: No what type of physical activity do you participate in: none seatbelt use: always do you feel safe at home: Yes Vital Signs Vital Signs Vital Signs: 12/19/22 10:22 Temperature 95.6 F L Temperature Source Temporal Pulse Rate 66 Blood Pressure 126/63 H Blood Pressure Mean 84 Blood Pressure Source Monitor Weight Weight: 135 lb 9.985 oz Body Mass Index (BMI) 21.9 Physical Exam Const alert, oriented x3, no apparent distress, average body habitus and well nourished General Appearance: cooperative, comfortable, well kempt and well developed Orientation / Consciousness: awake, oriented to person, oriented to place and oriented to time HEENT normocephalic, head/scalp atraumatic and hearing grossly normal bilaterally Head and Scalp: normal to inspection, normocephalic and atraumatic Face and Sinus: normal facial exam Nose: external nose normal External Ear: external ears normal Eyes PERRL and EOMs intact bilaterally General Eye: normal appearance of both eyes Neck full ROM Resp normal respiratory effort, normal air movement, no retractions and no use of accessory muscles Effort and Inspection: able to speak in complete sentences Extremity no calf tenderness General Extremity: Negative for clubbing or cyanosis Skin Wound Narrative: A left fifth ray amputation is noted. Mild erythema is noted to encompass the lateral aspect of the left foot, but with significant improvement since last evaluated a week ago. There is a linear wound on the left lateral foot, decreasing in size, the dimensions of which are documented elsewhere. There is a moderate amount of sloughing skin surrounding the wound, and bioburden noted within the wound itself. The periwound erythema appears consistent with a dermatitic or mycotic process, which has improved within the last week, since implementation of topical antifungal treatment. No significant swelling is noted in the patient's left lower extremity. Neuro oriented x3, CN's II-XII intact bilaterally, moves all extremities and no focal motor deficits Sensorium / Orientation: awake, alert, oriented to person, oriented to place and oriented to time Speech: speech normal Psych Appearance: grossly normal and appropriate Attitude: calm Activity / Motor Behavior: appropriate eye contact Speech: normal speech Mood & Affect: euthymic mood Thought Process: normal thought process Thought Content: normal thought content Attention / Concentration: attention grossly intact Debridement Note Debridement Note Wound debrided: Left lateral foot Laterality: Left Type of Debridement: Excisional debridement Anesthesia Used: 5% Lidocaine Gel Depth: Down to and including healthy tissue and in the subcutaneous layer Percentage of wound debrided: 100 Instrument Used: 5mm curette Tissue Removed: Bioburden and sloughing epidermis Severity: Fat Layer Exposed Amount of bleeding with debridement: Mild Bleeding Controlled with: Compression and gauze Patient tolerated procedure: Patient tolerated procedure well Post-Debridement Measurements and Additional Note: Post-Debridement Measurements/Treatment ALFREDO - Nurse 1 - General Ulcer Assessment Start: 12/19/22 10:22 Freq: Status: Active Protocol: JV Activity Type Activity Date Activity User E-sign Co-sign Detail Recorded Client Recorded Date Recorded By Document 12/19/22 10:22 NATALEE [id number] 12/19/22 10:23 NATALEE 12/19/22 10:22 - Today's Visit Information Type of service Follow-up Visit (Physician/OBIEE [employer] ) Arrival Mode Ambulatory Patient Identification Verified (Name & Yes ) Patient Requires Transmission-Based No Precautions Safety Precautions NA Height and Weight Body Mass Index (BMI) 21.9 BMI Classification Normal Vital Signs Temperature (97.8 F-99.1 F) 95.6 F L Temperature Source Temporal Pulse Rate (60-100) 66 Pulse Location Monitor Blood Pressure (90/60-120/80) 126/63 H Blood Pressure Mean 84 Source Monitor History Since Last Visit- (Skip if this is Patient's initial visit) Have you changed medications since your No last visit? Any new allergies or adverse reactions No Had a fall/change in ADL's that may No increase risk of falls Signs or symptoms of abuse and/or No neglect since last visit Have you been in the hospital since your No last visit? Has dressing in place as prescribed Yes Has compression in place as prescribed N/A Has offloadiing in place as prescribed N/A Experienced any changes in pain level or No management Left Footwear Surgical Shoe with pressure relief insole Right Footwear Surgical Shoe with pressure relief insole Pain Scale: 0-10 Numeric Is Patient Pain Free? Yes ALFREDO - Nurse 1 - General Ulcer Measurement Start: 12/19/22 10:22 Freq: Status: Active Protocol: Activity Type Activity Date Activity User E-sign Co-sign Detail Recorded Client Recorded Date Recorded By Document 12/19/22 10:22 AK [id number] 12/19/22 10:23 AK 12/19/22 10:22 Wound Center Nurse 1 #5 L Lat foot/ Amp site -Combined with other wound No -Current Size (cm) - Length 0.1 -Current Size (cm) - Width 0.1 -Current Size (cm) - Depth 0.1 -Total Square Cm 0.01 -Photo Taken Yes -Tunneling No -Undermining/Tunneling No -Circular Undermining No -Change in Wound Grade/Stage No -Exudate Amt None Present -Exudate Type Serosanguineous -Wound Margin Distinct, Outline Attached -Granulation Amt None Present (0 %) -Granulation Quality Hyper- granulation,N/A -Slough/Fibrin No -Necrosis Amt None Present (0 %) -Structure Exposed N/A -Texture (Kasia-wound Skin Appearance) No Abnormality, Assessed -Moisture (Kasai-wound Skin Appearance) Assessed,Dry/ Scaly -Color (Kasia-wound Skin Appearance) No Abnormality, Assessed -Temperature (Kasia-wound Skin No Abnormality Appearance) (Pt Warm) -Tenderness on Palpation (Kasia-wound No Skin Appearance) -Ulcer Cleansing Rinsed/ Irrigated with Saline -Foul Odor after Cleansing No -Anesthetic Used 5% Lidocaine Gel ALFREDO - Nurse 2 - General Ulcer CM Notes Start: 12/19/22 10:22 Freq: Status: Active Protocol: Activity Type Activity Date Activity User E-sign Co-sign Detail Recorded Client Recorded Date Recorded By Document 12/19/22 11:36 PL [id number] 12/19/22 11:37 PL 12/19/22 11:36 Wound Center Nurse 2 -Time 10:31 -Correct Patient Yes -Correct Side, Site, Position Yes -Correct Procedure Yes -Procedure Performed Yes -Type of Procedure Debridement -Clinical Debridement Subcutaneous -Tissue Removed Subcutaneous -Post Debridement (cm) - Length 0.1 -Post Debridement (cm) - Width 0.1 -Post Debridement (cm) - Depth 0.1 -Total Square (Post) (cm) 0.01 -Area of Debridement (cm) - Length 0.1 -Area of Debridement (cm) - Width 0.1 -Total Square (Area) (cm) 0.01 -Tunneling No -Undermining/Tunneling No -Circular Undermining No -Wound/Ulcer Outcome Not Healed -Ulcer Cleansing Rinsed/ Irrigated with Saline -Foul Odor after Cleansing No -Bioengineered Tissue No -Bleeding Controlled with Pressure -Treatment Response Procedure Tolerated Well -Debridement - Subq, 1st 20sq cm Yes Pain Scale: 0-10 Numeric Is Patient Pain Free? Yes - Nurse 3 - General Ulcer D/C NN Start: 12/19/22 10:22 Freq: Status: Active Protocol: Activity Type Activity Date Activity User E-sign Co-sign Detail Recorded Client Recorded Date Recorded By Document 12/19/22 11:00 NATALEE [id number] 12/19/22 11:01 NATALEE 12/19/22 11:00 Wound Care Center Nurse 3 #5 L Lat foot/ Amp site -Ulcer Cleansing Rinsed/ Irrigated with Saline -Foul Odor after Cleansing No -Negative Pressure Wound Therapy N/A -Other Dressing hydrogel -Primary Dressing Covered/Secured with Dry Gauze & Roll Gauze, Secured with Tape Pain Scale: 0-10 Numeric Is Patient Pain Free? 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 transplanted heart: beaver heart Qualified Code(s): I25.810 - Atherosclerosis of coronary artery bypass graft(s) without angina pectoris (5) H/O coronary artery bypass surgery: CODE(S): Z95.1 - Presence of aortocoronary bypass graft (6) Ischemic cardiomyopathy: CODE(S): I25.5 - Ischemic cardiomyopathy (7) Chronic HFrEF (heart failure with reduced ejection fraction): CODE(S): I50.22 - Chronic systolic (congestive) heart failure (8) Right bundle branch block (RBBB): CODE(S): I45.10 - Unspecified right bundle-branch block (9) Secondary pulmonary arterial hypertension: CODE(S): I27.21 - Secondary pulmonary arterial hypertension (10) Essential (primary) hypertension: CODE(S): I10 - Essential (primary) hypertension (11) HLD (hyperlipidemia): CODE(S): E78.5 - Hyperlipidemia, unspecified QUALIFIERS: Hyperlipidemia type: pure hypercholesterolemia Qualified Code(s): E78.00 - Pure hypercholesterolemia, unspecified; E78.0 - Pure hypercholesterolemia (12) Type 2 diabetes mellitus: CODE(S): E11.9 - Type 2 diabetes mellitus without complications (13) Peripheral vascular occlusive disease: CODE(S): I73.9 - Peripheral vascular disease, unspecified (14) 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 According to the patient and his , it had been present for approximately 2 weeks, though the patient has had an ulceration at the site previously, which was healed by conservative means. Of note, the patient underwent left fifth ray resection in [address] Mandujano. He is known to be diabetic and to have a history of peripheral arterial occlusive disease, for which he underwent endovascular revascularization in January 2021. The patient has been advised to optimize his diabetic control, and to consume a nutritious, well-balanced diet. We are to continue the use of collagen hydrogel topically at the site of the ulceration on a daily basis. The kasia-ulcer erythema appears to represent a dermatomycosis, and a prescription has been provided for Lotrisone cream 1%, to be applied topically twice daily. This has resulted in significant improvement within the last week, and is to be continued. The patient is return in 1 week for reevaluation. Additional measures will be considered based upon the patient's evolving clinical course. Total time: 28 minutes
[2022-12-26 10:32] VITALS: BP 119/67; PULSE 76; RESP 18; TEMP 35.9; BMI 21.9
--- NOTE | 2022-12-26 12:11 | HP.PCM_ITS ---
History of Present Illness Date of Service: 12/26/22 Chief Complaint: Diabetic left foot ulcer with dermatomycosis History of Wound: This is a 77-year-old diabetic male who has been treated in the past for an ulceration on the lateral aspect of his left foot. He has previously undergone left fifth ray resection on February 04, 2021. He developed left lateral foot ulceration at this site in the past, which subsequently healed. Medical records indicate that the patient was treated for a chronic ulceration at the site with necrosis of bone in June 2022, which was healed by conservative means. Approximately 2 weeks prior to his current presentation, another superficial ulceration appeared. He presented at this time for evaluation and management. The patient is ambulatory. He suffers from multiple pre-existing medical conditions, as listed below. 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 There is no mention of osteomyelitis. It is noted that the patient has a history of peripheral arterial occlusive disease, and underwent balloon angioplasty of the left superficial femoral artery and popliteal artery by Dr. Emerson Bowens on January 20, 2021. Prior to that, a noninvasive lower extremity arterial study had revealed moderate to severe peripheral arterial occlusive disease at digital level bilaterally. [facility] Medical History Anemia Anemia of chronic renal failure, stage 4 (severe) Atherosclerosis of coronary artery bypass graft without angina pectoris Atherosclerosis of [place] artery of lower extremity with ulceration of foot Bilateral pleural effusion Callus of foot Cellulitis of left lower limb Chronic HFrEF (heart failure with reduced ejection fraction) Chronic renal failure, stage 4 (severe) Claudication of both lower extremities Delayed wound healing Dermatitis of left foot Dermatomycosis of foot Diabetes mellitus type 2 in nonobese Diabetes mellitus with neuropathy Diabetic foot ulcer associated with diabetes mellitus due to underlying condition Elevated PSA, between 10 and less than 20 ng/ml Eschar of foot Essential (primary) hypertension GERD (gastroesophageal reflux disease) Hammertoe of left foot HLD (hyperlipidemia) Hypokalemia Incarcerated right inguinal hernia Ischemic cardiomyopathy Malnutrition Mass of right breast Non-pressure chronic ulcer of other part of left foot with fat layer exposed Non-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 Osteomyelitis Peripheral vascular disease Peripheral vascular occlusive disease Right bundle branch block (RBBB) Secondary pulmonary arterial hypertension Tailor's bunion of left foot Type 2 diabetes mellitus Ulcer of left foot with fat layer exposed 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 Ulcer of left foot with necrosis of muscle Xerosis cutis Home Medications aspirin 81 mg chewable tablet 81 mg PO DAILY@0800 Check with primary doctor 09/29/14 [History Last Taken 02/03/21 06:00] pantoprazole 40 mg tablet,delayed release 40 mg PO DAILY Check with primary doctor 30 days #30 tabs 02/07/18 [History Last Taken 02/04/21 06:00] ferrous sulfate 325 mg (65 mg iron) tablet 325 mg PO DAILY@1200 Check with primary doctor 03/19/19 [History Last Taken 05/26/19] trazodone 50 mg tablet 50 mg PO QHS PRN Sleep 09/22/20 [History Last Taken Unknown] gabapentin 100 mg capsule 100 mg PO QHS 12/22/20 [History Last Taken Unknown] ammonium lactate 12 % topical cream 1 applic topical DAILY #140 grams 10/19/21 [Rx Last Taken Unknown] atorvastatin 80 mg tablet 80 mg PO QHS cholesterol #90 tabs 01/30/22 [Rx Last Taken Unknown] carvedilol 12.5 mg tablet 12.5 mg PO BID #180 tabs 03/29/22 [Rx Last Taken Unknown] escitalopram oxalate 20 mg tablet 20 mg PO DAILY 03/29/22 [History Last Taken Unknown] furosemide 20 mg tablet 60 mg PO DAILY 90 days #270 tabs 03/29/22 [Rx Last Taken Unknown] clopidogrel 75 mg tablet 75 mg PO DAILY #90 tabs 08/02/22 [Rx Last Taken Unknown] hydralazine 25 mg tablet 25 mg PO TID #270 tabs 08/04/22 [Rx Last Taken Unknown] insulin glargine 100 unit/mL (3 mL) subcutaneous pen 15 unit subcut BID 10/02/22 [History Last Taken Unknown] dulaglutide 0.75 mg/0.5 mL subcutaneous pen injector (Trulicity) 0.75 mg subcut QWEEK 12/12/22 [History Last Taken Unknown] Allergy/AdvReac Type Severity Reaction Status Date / Time atorvastatin [From Lipitor] AdvReac Mild myalgias Verified 12/12/22 08:33 Family History Brother CAD (coronary artery disease) Hx CABG Surgical History Amputated toe of left foot (01/2021) H/O coronary artery bypass surgery (04/30/14) History of angioplasty of peripheral vessel (01/20/21) History of inguinal hernia repair History of left heart catheterization (LHC) (03/20/19) History of right breast biopsy (03/2021) History of right inguinal hernia repair (03/2018) History of thoracentesis Social History Smoking Status: Never smoker alcohol intake: never substance use type: does not use caffeine: No what type of physical activity do you participate in: none seatbelt use: always do you feel safe at home: Yes Vital Signs Vital Signs Vital Signs: 12/26/22 10:32 Temperature 96.7 F L Temperature Source Temporal Pulse Rate 76 Respiratory Rate 18 Blood Pressure 119/67 Blood Pressure Mean 84 Blood Pressure Source Monitor Weight Weight: 135 lb 9.985 oz Body Mass Index (BMI) 21.9 Physical Exam Const alert, oriented x3, no apparent distress, average body habitus and well nourished General Appearance: cooperative, comfortable, well kempt and well developed Orientation / Consciousness: awake, oriented to person, oriented to place and oriented to time HEENT normocephalic, head/scalp atraumatic and hearing grossly normal bilaterally Head and Scalp: normal to inspection, normocephalic and atraumatic Face and Sinus: normal facial exam Nose: external nose normal External Ear: external ears normal Eyes PERRL and EOMs intact bilaterally General Eye: normal appearance of both eyes Neck full ROM Resp normal respiratory effort, normal air movement, no retractions and no use of accessory muscles Effort and Inspection: able to speak in complete sentences Extremity no calf tenderness General Extremity: Negative for clubbing or cyanosis Skin Wound Narrative: A left fifth ray amputation is noted. Mild erythema, previously noted to encompass the lateral aspect of the left foot, is now essentially resolved. Only a very small open wound persists on the left lateral foot, with a small amount of bioburden. Dimensions are documented elsewhere. No significant swelling is noted in the patient's left lower extremity. Neuro oriented x3, CN's II-XII intact bilaterally, moves all extremities and no focal motor deficits Sensorium / Orientation: awake, alert, oriented to person, oriented to place and oriented to time Speech: speech normal Psych Appearance: grossly normal and appropriate Attitude: calm Activity / Motor Behavior: appropriate eye contact Speech: normal speech Mood & Affect: euthymic mood Thought Process: normal thought process Thought Content: normal thought content Attention / Concentration: attention grossly intact Debridement Note Debridement Note Wound debrided: Left lateral foot Laterality: Left Type of Debridement: Excisional debridement Anesthesia Used: 5% Lidocaine Gel Depth: Down to and including healthy tissue and in the subcutaneous layer Percentage of wound debrided: 100 Instrument Used: 5mm curette Tissue Removed: Bioburden Severity: Fat Layer Exposed Amount of bleeding with debridement: Mild Bleeding Controlled with: Compression and gauze Patient tolerated procedure: Patient tolerated procedure well Post-Debridement Measurements and Additional Note: Post-Debridement Measurements/Treatment - Nurse 1 - General Ulcer Assessment Start: 12/19/22 10:22 Freq: Status: Active Protocol: JV Activity Type Activity Date Activity User E-sign Co-sign Detail Recorded Client Recorded Date Recorded By Document 12/19/22 10:22 NH [id number] 12/19/22 10:23 AK Document 12/26/22 10:32 DL [id number] 12/26/22 10:37 DL 12/19/22 12/26/22 10:22 10:32 - Today's Visit Information Type of service Follow-up Visit Follow-up Visit (Physician/DATA LIBRARIAN (Physician/DATA LIBRARIAN ) ) Arrival Mode Ambulatory Ambulatory Transfer Assistance None Patient Identification Verified (Name & Yes Yes ) Patient Requires Transmission-Based No No Precautions Safety Precautions NA Height and Weight Body Mass Index (BMI) 21.9 21.9 BMI Classification Normal Normal Vital Signs Temperature (97.8 F-99.1 F) 95.6 F L 96.7 F L Temperature Source Temporal Temporal Pulse Rate (60-100) 66 76 Pulse Location Monitor Monitor Respiratory Rate (12-18) 18 Respiratory rate source Observation Blood Pressure (90/60-120/80) 126/63 H 119/67 Blood Pressure Mean 84 84 Source Monitor Monitor History Since Last Visit- (Skip if this is Patient's initial visit) Have you changed medications since your No No last visit? Any new allergies or adverse reactions No No Had a fall/change in ADL's that may No No increase risk of falls Signs or symptoms of abuse and/or No No neglect since last visit Have you been in the hospital since your No No last visit? Has dressing in place as prescribed Yes Yes Has compression in place as prescribed N/A N/A Has offloadiing in place as prescribed N/A Yes Experienced any changes in pain level or No No management Left Footwear Surgical Shoe Surgical Shoe with pressure with pressure relief insole relief insole Right Footwear Surgical Shoe with pressure relief insole Pain Scale: 0-10 Numeric Is Patient Pain Free? Yes Yes WC - Nurse 1 - General Ulcer Measurement Start: 12/19/22 10:22 Freq: Status: Active Protocol: Activity Type Activity Date Activity User E-sign Co-sign Detail Recorded Client Recorded Date Recorded By Document 12/19/22 10:22 AK [id number] 12/19/22 10:23 AK Document 12/26/22 10:32 DL [id number] 12/26/22 10:37 DL 12/19/22 12/26/22 10:22 10:32 Wound Center Nurse 1 #5 L Lat foot/ Amp site -Combined with other wound No -Current Size (cm) - Length 0.1 0.1 -Current Size (cm) - Width 0.1 0.1 -Current Size (cm) - Depth 0.1 0.1 -Total Square Cm 0.01 0.01 -Photo Taken Yes Yes -Tunneling No -Undermining/Tunneling No -Circular Undermining No -Change in Wound Grade/Stage No -Exudate Amt None Present None Present -Exudate Type Serosanguineous -Wound Margin Distinct, Thickened Outline Attached -Granulation Amt None Present (0 Large (67-100%) %) -Granulation Quality Hyper- Pale granulation,N/A -Slough/Fibrin No -Necrosis Amt None Present (0 None Present (0 %) %) -Structure Exposed N/A N/A -Texture (Kasia-wound Skin Appearance) No Abnormality, Scarring Assessed -Moisture (Kasia-wound Skin Appearance) Assessed,Dry/ Dry/Scaly Scaly -Color (Kasia-wound Skin Appearance) No Abnormality, No Abnormality Assessed -Temperature (Kasia-wound Skin No Abnormality No Abnormality Appearance) (Pt Warm) (Pt Warm) -Tenderness on Palpation (Kasia-wound No No Skin Appearance) -Ulcer Cleansing Rinsed/ Rinsed/ Irrigated with Irrigated with Saline Saline -Foul Odor after Cleansing No No -Anesthetic Used 5% Lidocaine 5% Lidocaine Gel Gel WC - Nurse 2 - General Ulcer CM Notes Start: 12/19/22 10:22 Freq: Status: Active Protocol: Activity Type Activity Date Activity User E-sign Co-sign Detail Recorded Client Recorded Date Recorded By Document 12/19/22 11:36 PL [id number] 12/19/22 11:37 PL Document 12/26/22 12:07 PL [id number] 12/26/22 12:08 PL 12/19/22 12/26/22 11:36 12:07 Wound Center Nurse 2 #5 L Lat foot/ Amp site -Time 10:31 10:49 -Correct Patient Yes Yes -Correct Side, Site, Position Yes Yes -Correct Procedure Yes Yes -Procedure Performed Yes Yes -Type of Procedure Debridement Debridement -Clinical Debridement Subcutaneous Subcutaneous -Tissue Removed Subcutaneous Subcutaneous -Post Debridement (cm) - Length 0.1 0.1 -Post Debridement (cm) - Width 0.1 0.1 -Post Debridement (cm) - Depth 0.1 0.1 -Total Square (Post) (cm) 0.01 0.01 -Area of Debridement (cm) - Length 0.1 0.1 -Area of Debridement (cm) - Width 0.1 0.1 -Total Square (Area) (cm) 0.01 0.01 -Tunneling No No -Undermining/Tunneling No No -Circular Undermining No No -Wound/Ulcer Outcome Not Healed Not Healed -Ulcer Cleansing Rinsed/ Rinsed/ Irrigated with Irrigated with Saline Saline -Foul Odor after Cleansing No No -Bioengineered Tissue No No -Bleeding Controlled with Pressure Pressure -Treatment Response Procedure Procedure Tolerated Well Tolerated Well -Debridement - Subq, 1st 20sq cm Yes Yes Pain Scale: 0-10 Numeric Is Patient Pain Free? Yes Yes WC - Nurse 3 - General Ulcer D/C NN Start: 12/19/22 10:22 Freq: Status: Active Protocol: Activity Type Activity Date Activity User E-sign Co-sign Detail Recorded Client Recorded Date Recorded By Document 12/19/22 11:00 AK [id number] 12/19/22 11:01 AK Document 12/26/22 11:05 ML [id number] 12/26/22 11:06 ML 12/19/22 12/26/22 11:00 11:05 Wound Care Center Nurse 3 #5 L Lat foot/ Amp site -Ulcer Cleansing Rinsed/ Rinsed/ Irrigated with Irrigated with Saline Saline -Foul Odor after Cleansing No -Negative Pressure Wound Therapy N/A -Primary Dressing Applied C Hydrogel ($) -Other Dressing hydrogel -Primary Dressing Covered/Secured with Dry Gauze & Dry Gauze & Roll Gauze, Roll Gauze, Secured with Secured with Tape Tape -Hydrocolloid 0 Pain Scale: 0-10 Numeric Is Patient Pain Free? Yes Yes WC - Visit Discharge Discharge Condition Stable Ambulatory Status Ambulatory Transportation Private Auto Accompanied by Medication Reconcilliation completed & Yes provided to patient/care provider Clinical Summary of Care Provided Yes Assessment/Plan Assessment/Plan (1) Diabetic foot ulcer associated with diabetes mellitus due to underlying condition: CODE(S): E08.621 - Diabetes mellitus due to underlying condition with foot ulcer; L97.509 - Non-pressure chronic ulcer of other part of unspecified foot with unspecified severity (2) Atherosclerosis of [place] artery of lower extremity with ulceration of foot: CODE(S): I70.25 - Atherosclerosis of [place] arteries of other extremities with ulceration; L97.509 - Non-pressure chronic ulcer of other part of unspecified foot with unspecified severity (3) Dermatomycosis of foot: CODE(S): B36.9 - Superficial mycosis, unspecified (4) Atherosclerosis of coronary artery bypass graft without angina pectoris: CODE(S): I25.810 - Atherosclerosis of coronary artery bypass graft(s) wit hout angina pectoris QUALIFIERS: [place] vs. transplanted heart: [place] heart Qualified Code(s): I25.810 - Atherosclerosis of coronary artery bypass graft(s) without angina pectoris (5) H/O coronary artery bypass surgery: CODE(S): Z95.1 - Presence of aortocoronary bypass graft (6) Ischemic cardiomyopathy: CODE(S): I25.5 - Ischemic cardiomyopathy (7) Chronic HFrEF (heart failure with reduced ejection fraction): CODE(S): I50.22 - Chronic systolic (congestive) heart failure (8) Right bundle branch block (RBBB): CODE(S): I45.10 - Unspecified right bundle-branch block (9) Secondary pulmonary arterial hypertension: CODE(S): I27.21 - Secondary pulmonary arterial hypertension (10) Essential (primary) hypertension: CODE(S): I10 - Essential (primary) hypertension (11) HLD (hyperlipidemia): CODE(S): E78.5 - Hyperlipidemia, unspecified QUALIFIERS: Hyperlipidemia type: pure hypercholesterolemia Qualified Code(s): E78.00 - Pure hypercholesterolemia, unspecified; E78.0 - Pure hypercholesterolemia (12) Type 2 diabetes mellitus: CODE(S): E11.9 - Type 2 diabetes mellitus without complications (13) Peripheral vascular occlusive disease: CODE(S): I73.9 - Peripheral vascular disease, unspecified (14) 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 According to the patient and his , it had been present for approximately 2 weeks, though the patient has had an ulceration at the site previously, which was healed by conservative means. Of note, the patient underwent left fifth ray resection in January [address] Mandujano. He is known to be diabetic and to have a history of peripheral arterial occlusive disease, for which he underwent endovascular revascularization in January 2021. The patient has been advised to optimize his diabetic control, and to consume a nutritious, well-balanced diet. We are to continue the use of collagen hydrogel topically at the site of the ulceration on a daily basis. The kasia-ulcer erythema appears to represent a dermatomycosis, and a prescription has been provided for Lotrisone cream 1%, to be applied topically on a daily basis. The erythema is now minimal, having responded to a steroid/antifungal topical agent. The patient is return in 1 week for reevaluation. Additional measures will be considered based upon the patient's evolving clinical course. Total time: 26 minutes
[2023-01-02 10:49] VITALS: BP 125/69; PULSE 67; RESP 18; TEMP 36; BMI 21.9
--- NOTE | 2023-01-02 11:51 | HP.PCM_ITS ---
History of Present Illness Date of Service: 01/02/23 Chief Complaint: Diabetic left foot ulcer with dermatomycosis History of Wound: This is a 77-year-old diabetic male who has been treated in the past for an ulceration on the lateral aspect of his left foot. He has previously undergone left fifth ray resection on February 04, 2021. He developed left lateral foot ulceration at this site in the past, which subsequently healed. Medical records indicate that the patient was treated for a chronic ulceration at the site with necrosis of bone in June 2022, which was healed by conservative means. Approximately 2 weeks prior to his current presentation, another superficial ulceration appeared. He presented at this time for evaluation and management. The patient is ambulatory. He suffers from multiple pre-existing medical conditions, as listed below. 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 There is no mention of osteomyelitis. It is noted that the patient has a history of peripheral arterial occlusive disease, and underwent balloon angioplasty of the left superficial femoral artery and popliteal artery by Dr. Emerson Bowens on January 20, 2021. Prior to that, a noninvasive lower extremity arterial study had revealed moderate to severe peripheral arterial occlusive disease at digital level bilaterally. [facility] Medical History Anemia Anemia of chronic renal failure, stage 4 (severe) Atherosclerosis of coronary artery bypass graft without angina pectoris Atherosclerosis of [place] artery of lower extremity with ulceration of foot Bilateral pleural effusion Callus of foot Cellulitis of left lower limb Chronic HFrEF (heart failure with reduced ejection fraction) Chronic renal failure, stage 4 (severe) Claudication of both lower extremities Delayed wound healing Dermatitis of left foot Dermatomycosis of foot Diabetes mellitus type 2 in nonobese Diabetes mellitus with neuropathy Diabetic foot ulcer associated with diabetes mellitus due to underlying condition Elevated PSA, between 10 and less than 20 ng/ml Eschar of foot Essential (primary) hypertension GERD (gastroesophageal reflux disease) Hammertoe of left foot HLD (hyperlipidemia) Hypokalemia Incarcerated right inguinal hernia Ischemic cardiomyopathy Malnutrition Mass of right breast Non-pressure chronic ulcer of other part of left foot with fat layer exposed Non-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 Osteomyelitis Peripheral vascular disease Peripheral vascular occlusive disease Right bundle branch block (RBBB) Secondary pulmonary arterial hypertension Tailor's bunion of left foot Type 2 diabetes mellitus Ulcer of left foot with fat layer exposed 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 Ulcer of left foot with necrosis of muscle Xerosis cutis Home Medications aspirin 81 mg chewable tablet 81 mg PO DAILY@0800 Check with primary doctor 09/29/14 [History Last Taken 02/03/21 06:00] pantoprazole 40 mg tablet,delayed release 40 mg PO DAILY Check with primary doctor 30 days #30 tabs 02/07/18 [History Last Taken 02/04/21 06:00] ferrous sulfate 325 mg (65 mg iron) tablet 325 mg PO DAILY@1200 Check with primary doctor 03/19/19 [History Last Taken 05/26/19] trazodone 50 mg tablet 50 mg PO QHS PRN Sleep 09/22/20 [History Last Taken Unknown] gabapentin 100 mg capsule 100 mg PO QHS 12/22/20 [History Last Taken Unknown] ammonium lactate 12 % topical cream 1 applic topical DAILY #140 grams 10/19/21 [Rx Last Taken Unknown] atorvastatin 80 mg tablet 80 mg PO QHS cholesterol #90 tabs 01/30/22 [Rx Last Taken Unknown] carvedilol 12.5 mg tablet 12.5 mg PO BID #180 tabs 03/29/22 [Rx Last Taken Unknown] escitalopram oxalate 20 mg tablet 20 mg PO DAILY 03/29/22 [History Last Taken Unknown] furosemide 20 mg tablet 60 mg PO DAILY 90 days #270 tabs 03/29/22 [Rx Last Taken Unknown] clopidogrel 75 mg tablet 75 mg PO DAILY #90 tabs 08/02/22 [Rx Last Taken Unknown] hydralazine 25 mg tablet 25 mg PO TID #270 tabs 08/04/22 [Rx Last Taken Unknown] insulin glargine 100 unit/mL (3 mL) subcutaneous pen 15 unit subcut BID 10/02/22 [History Last Taken Unknown] dulaglutide 0.75 mg/0.5 mL subcutaneous pen injector (Trulicity) 0.75 mg subcut QWEEK 12/12/22 [History Last Taken Unknown] Allergy/AdvReac Type Severity Reaction Status Date / Time atorvastatin [From Lipitor] AdvReac Mild myalgias Verified 12/12/22 08:33 Family History Brother CAD (coronary artery disease) Hx CABG Surgical History Amputated toe of left foot (01/2021) H/O coronary artery bypass surgery (04/30/14) History of angioplasty of peripheral vessel (01/20/21) History of inguinal hernia repair History of left heart catheterization (LHC) (03/20/19) History of right breast biopsy (03/2021) History of right inguinal hernia repair (03/2018) History of thoracentesis Social History Smoking Status: Never smoker alcohol intake: never substance use type: does not use caffeine: No what type of physical activity do you participate in: none seatbelt use: always do you feel safe at home: Yes Vital Signs Vital Signs Vital Signs: 01/02/23 10:49 Temperature 96.8 F L Temperature Source Temporal Pulse Rate 67 Respiratory Rate 18 Blood Pressure 125/69 H Blood Pressure Mean 87 Blood Pressure Source Monitor Weight Weight: 135 lb 9.985 oz Body Mass Index (BMI) 21.9 Physical Exam Const alert, oriented x3, no apparent distress, average body habitus and well nourished General Appearance: cooperative, comfortable, well kempt and well developed Orientation / Consciousness: awake, oriented to person, oriented to place and oriented to time HEENT normocephalic, head/scalp atraumatic and hearing grossly normal bilaterally Head and Scalp: normal to inspection, normocephalic and atraumatic Face and Sinus: normal facial exam Nose: external nose normal External Ear: external ears normal Eyes PERRL and EOMs intact bilaterally General Eye: normal appearance of both eyes Neck full ROM Resp normal respiratory effort, normal air movement, no retractions and no use of accessory muscles Effort and Inspection: able to speak in complete sentences Extremity no calf tenderness General Extremity: Negative for clubbing or cyanosis Skin Wound Narrative: A left fifth ray amputation is noted. Mild erythema, previously noted to encompass the lateral aspect of the left foot, is now resolved. Only a very small open wound persists on the left lateral foot, with a small amount of bioburden. The wound is nearly healed. Dimensions are documented elsewhere. No significant swelling is noted in the patient's left lower extremity. Neuro oriented x3, CN's II-XII intact bilaterally, moves all extremities and no focal motor deficits Sensorium / Orientation: awake, alert, oriented to person, oriented to place and oriented to time Speech: speech normal Psych Appearance: grossly normal and appropriate Attitude: calm Activity / Motor Behavior: appropriate eye contact Speech: normal speech Mood & Affect: euthymic mood Thought Process: normal thought process Thought Content: normal thought content Attention / Concentration: attention grossly intact Debridement Note Debridement Note Wound debrided: Left lateral foot Laterality: Left Type of Debridement: Excisional debridement Anesthesia Used: 5% Lidocaine Gel Depth: Down to and including healthy tissue and in the subcutaneous layer Percentage of wound debrided: 100 Instrument Used: 3mm curette, Forceps and - (Iris scissors) Tissue Removed: Bioburden Severity: Fat Layer Exposed Amount of bleeding with debridement: Mild Bleeding Controlled with: Compression and gauze Patient tolerated procedure: Patient tolerated procedure well Post-Debridement Measurements and Additional Note: Post-Debridement Measurements/Treatment - Nurse 1 - General Ulcer Assessment Start: 12/19/22 10:22 Freq: Status: Active Protocol: JV Activity Type Activity Date Activity User E-sign Co-sign Detail Recorded Client Recorded Date Recorded By Document 12/19/22 10:22 AK [id number] 12/19/22 10:23 AK Document 12/26/22 10:32 DL [id number] 12/26/22 10:37 DL Document 01/02/23 10:49 DL [id number] 01/02/23 10:51 DL 12/19/22 12/26/22 01/02/23 10:22 10:32 10:49 [facility] Today's Visit Information Type of service Follow-up Visit Follow-up Visit Follow-up Visit (Physician/SENIOR SOFTWARE ANALYST (Physician/SENIOR SOFTWARE ANALYST (Physician/SENIOR SOFTWARE ANALYST ) ) ) Arrival Mode Ambulatory Ambulatory Cane Transfer Assistance None None Patient Identification Verified (Name & Yes Yes Yes ) Patient Requires Transmission-Based No No No Precautions Safety Precautions NA Height and Weight Body Mass Index (BMI) 21.9 21.9 21.9 BMI Classification Normal Normal Normal Vital Signs Temperature (97.8 F-99.1 F) 95.6 F L 96.7 F L 96.8 F L Temperature Source Temporal Temporal Temporal Pulse Rate (60-100) 66 76 67 Pulse Location Monitor Monitor Monitor Respiratory Rate (12-18) 18 18 Respiratory rate source Observation Observation Blood Pressure (90/60-120/80) 126/63 H 119/67 125/69 H Blood Pressure Mean 84 84 87 Source Monitor Monitor Monitor History Since Last Visit- (Skip if this is Patient's initial visit) Have you changed medications since your No No No last visit? Any new allergies or adverse reactions No No No Had a fall/change in ADL's that may No No No increase risk of falls Signs or symptoms of abuse and/or No No No neglect since last visit Have you been in the hospital since your No No No last visit? Has dressing in place as prescribed Yes Yes Yes Has compression in place as prescribed N/A N/A N/A Has offloadiing in place as prescribed N/A Yes Yes Experienced any changes in pain level or No No management Left Footwear Surgical Shoe Surgical Shoe Surgical Shoe with pressure with pressure with pressure relief insole relief insole relief insole Right Footwear Surgical Shoe with pressure relief insole Pain Scale: 0-10 Numeric Is Patient Pain Free? Yes Yes Yes WC - Nurse 1 - General Ulcer Measurement Start: 12/19/22 10:22 Freq: Status: Active Protocol: Activity Type Activity Date Activity User E-sign Co-sign Detail Recorded Client Recorded Date Recorded By Document 12/19/22 10:22 AK [id number] 12/19/22 10:23 AK Document 12/26/22 10:32 DL [id number] 12/26/22 10:37 DL Document 01/02/23 10:49 DL [id number] 01/02/23 10:51 DL 12/19/22 12/26/22 01/02/23 10:22 10:32 10:49 Wound Center Nurse 1 #5 L Lat foot/ Amp site -Combined with other wound No -Current Size (cm) - Length 0.1 0.1 0.1 -Current Size (cm) - Width 0.1 0.1 0.1 -Current Size (cm) - Depth 0.1 0.1 0.1 -Total Square Cm 0.01 0.01 0.01 -Photo Taken Yes Yes Yes -Tunneling No -Undermining/Tunneling No -Circular Undermining No -Change in Wound Grade/Stage No -Exudate Amt None Present None Present None Present -Exudate Type Serosanguineous -Wound Margin Distinct, Thickened Flat & Intact Outline Attached -Granulation Amt None Present (0 Large (67-100%) Large (67-100%) %) -Granulation Quality Hyper- Pale granulation,N/A -Slough/Fibrin No -Necrosis Amt None Present (0 None Present (0 None Present (0 %) %) %) -Structure Exposed N/A N/A N/A -Texture (Kasia-wound Skin Appearance) No Abnormality, Scarring Scarring Assessed -Moisture (Kasia-wound Skin Appearance) Assessed,Dry/ Dry/Scaly Dry/Scaly Scaly -Color (Kasia-wound Skin Appearance) No Abnormality, No Abnormality No Abnormality Assessed -Temperature (Kasia-wound Skin No Abnormality No Abnormality No Abnormality Appearance) (Pt Warm) (Pt Warm) (Pt Warm) -Tenderness on Palpation (Kasia-wound No No Skin Appearance) -Ulcer Cleansing Rinsed/ Rinsed/ Rinsed/ Irrigated with Irrigated with Irrigated with Saline Saline Saline -Foul Odor after Cleansing No No No -Anesthetic Used 5% Lidocaine 5% Lidocaine 5% Lidocaine Gel Gel Gel WC - Nurse 2 - General Ulcer CM Notes Start: 12/19/22 10:22 Freq: Status: Active Protocol: Activity Type Activity Date Activity User E-sign Co-sign Detail Recorded Client Recorded Date Recorded By Document 12/19/22 11:36 PL [id number] 12/19/22 11:37 PL Document 12/26/22 12:07 PL [id number] 12/26/22 12:08 PL Document 01/02/23 11:15 MW [id number] 01/02/23 11:19 MW 12/19/22 12/26/22 01/02/23 11:36 12:07 11:15 Wound Center Nurse 2 #5 L Lat foot/ Amp site -Time 10:31 10:49 11:16 -Correct Patient Yes Yes Yes -Correct Side, Site, Position Yes Yes Yes -Correct Procedure Yes Yes Yes -Procedure Performed Yes Yes Yes -Type of Procedure Debridement Debridement Debridement -Clinical Debridement Subcutaneous Subcutaneous Subcutaneous -Tissue Removed Subcutaneous Subcutaneous Subcutaneous -Post Debridement (cm) - Length 0.1 0.1 0.1 -Post Debridement (cm) - Width 0.1 0.1 0.1 -Post Debridement (cm) - Depth 0.1 0.1 0.1 -Total Square (Post) (cm) 0.01 0.01 0.01 -Area of Debridement (cm) - Length 0.1 0.1 0.1 -Area of Debridement (cm) - Width 0.1 0.1 0.1 -Total Square (Area) (cm) 0.01 0.01 0.01 -Tunneling No No No -Undermining/Tunneling No No No -Circular Undermining No No No -Wound/Ulcer Outcome Not Healed Not Healed Not Healed -Ulcer Cleansing Rinsed/ Rinsed/ Rinsed/ Irrigated with Irrigated with Irrigated with Saline Saline Saline -Foul Odor after Cleansing No No No -Bioengineered Tissue No No No -Bleeding Controlled with Pressure Pressure Pressure -Treatment Response Procedure Procedure Procedure Tolerated Well Tolerated Well Tolerated Well -Offloading No -Debridement - Subq, 1st 20sq cm Yes Yes Yes Pain Scale: 0-10 Numeric Is Patient Pain Free? Yes Yes Yes - Nurse 3 - General Ulcer D/C NN Start: 12/19/22 10:22 Freq: Status: Active Protocol: Activity Type Activity Date Activity User E-sign Co-sign Detail Recorded Client Recorded Date Recorded By Document 12/19/22 11:00 AK [id number] 12/19/22 11:01 AK Document 12/26/22 11:05 ML [id number] 12/26/22 11:06 ML Document 01/02/23 11:26 DL [id number] 01/02/23 11:27 DL 12/19/22 12/26/22 01/02/23 11:00 11:05 11:26 Wound Care Center Nurse 3 #5 L Lat foot/ Amp site -Ulcer Cleansing Rinsed/ Rinsed/ Rinsed/ Irrigated with Irrigated with Irrigated with Saline Saline Saline -Foul Odor after Cleansing No No -Negative Pressure Wound Therapy N/A -Primary Dressing Applied C Hydrogel ($) -Other Dressing hydrogel hydrogel -Primary Dressing Covered/Secured with Dry Gauze & Dry Gauze & Dry Gauze & Roll Gauze, Roll Gauze, Roll Gauze, Secured with Secured with Secured with Tape Tape Tape -Hydrocolloid 0 Treatment Response Procedure Tolerated Well Pain Scale: 0-10 Numeric Is Patient Pain Free? Yes Yes Yes - Visit Discharge Discharge Condition Stable Stable Ambulatory Status Ambulatory Ambulatory Transportation Private Auto Private Auto Accompanied by Medication Reconcilliation completed & Yes provided to patient/care provider Clinical Summary of Care Provided Yes Assessment/Plan Assessment/Plan (1) Diabetic foot ulcer associated with diabetes mellitus due to underlying condition: CODE(S): E08.621 - Diabetes mellitus due to underlying condition with foot ulcer; L97.509 - Non-pressure chronic ulcer of other part of unspecified foot with unspecified severity (2) Atherosclerosis of [place] artery of lower extremity with ulceration of foot: CODE(S): I70.25 - Atherosclerosis of [place] arteries of other extremities with ulceration; L97.509 - Non-pressure chronic ulcer of other part of unspecified foot with unspecified severity (3) Dermatomycosis of foot: CODE(S): B36.9 - Superficial mycosis, unspecified (4) Atherosclerosis of coronary artery bypass graft without angina pectoris: CODE(S): I25.810 - Atherosclerosis of coronary artery bypass graft(s) without angina pectoris QUALIFIERS: [place] vs. transplanted heart: [place] heart Qualified Code(s): I25.810 - Atherosclerosis of coronary artery bypass graft(s) without angina pectoris (5) H/O coronary artery bypass surgery: CODE(S): Z95.1 - Presence of aortocoronary bypass graft (6) Ischemic cardiomyopathy: CODE(S): I25.5 - Ischemic cardiomyopathy (7) Chronic HFrEF (heart failure with reduced ejection fraction): CODE(S): I50.22 - Chronic systolic (congestive) heart failure (8) Right bundle branch block (RBBB): CODE(S): I45.10 - Unspecified right bundle-branch block (9) Secondary pulmonary arterial hypertension: CODE(S): I27.21 - Secondary pulmonary arterial hypertension (10) Essential (primary) hypertension: CODE(S): I10 - Essential (primary) hypertension (11) HLD (hyperlipidemia): CODE(S): E78.5 - Hyperlipidemia, unspecified QUALIFIERS: Hyperlipidemia type: pure hypercholesterolemia Qualified Code(s): E78.00 - Pure hypercholesterolemia, unspecified; E78.0 - Pure hypercholesterolemia (12) Type 2 diabetes mellitus: CODE(S): E11.9 - Type 2 diabetes mellitus without complications (13) Peripheral vascular occlusive disease: CODE(S): I73.9 - Peripheral vascular disease, unspecified (14) 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 According to the patient and his , it had been present for approximately 2 weeks, though the patient has had an ulceration at the site previously, which was healed by conservative means. Of note, the patient underwent left fifth ray resection in January [address] Mandujano. He is known to be diabetic and to have a history of peripheral arterial occlusive disease, for which he underwent endovascular revascularization in January 2021. The patient has been advised to optimize his diabetic control, and to consume a nutritious, well-balanced diet. We are to continue the use of collagen hydrogel topically at the site of the ulceration on a daily basis. The ulceration is now very small and nearly healed. The kasia-ulcer erythema, suspected to be a dermatomycosis, has resolved with the use of topical Lotrisone 1% cream. The patient is to return in 2 weeks for reevaluation. Total time: 22 minutes
== END 2023-01-12 23:59 | disposition home or self-care (01) ==
LOC: WC 10:45
PROVIDERS: PCP Family Medicine; Referring Provider Surgery; Visit Provider Surgery
DX: E11.621 Type 2 diabetes mellitus with foot ulcer (principal); E11.51 Type 2 diabetes mellitus with diabetic peripheral angiopathy without gangrene; Z89.422 Acquired absence of other left toe(s); L97.522 Non-pressure chronic ulcer of other part of left foot with fat layer exposed; I50.22 Chronic systolic (congestive) heart failure; I13.0 Hypertensive heart and chronic kidney disease with heart failure and stage 1 through stage 4 chronic kidney disease, or unspecified chronic kidney disease; E11.22 Type 2 diabetes mellitus with diabetic chronic kidney disease; E11.42 Type 2 diabetes mellitus with diabetic polyneuropathy; N18.4 Chronic kidney disease, stage 4 (severe); Z79.82 Long term (current) use of aspirin; E78.00 Pure hypercholesterolemia, unspecified; I25.5 Ischemic cardiomyopathy; I25.10 Atherosclerotic heart disease of native coronary artery without angina pectoris; D63.1 Anemia in chronic kidney disease
CPT/HCPCS: 11042

== ENCOUNTER 2023-01-16 10:11 | Outpatient (RCR) | payer MEDICARE, SELFPAY ==
[2023-01-13 02:09] VITALS: BP 125/69; PULSE 67; RESP 18; TEMP 36; BMI 21.9
[2023-01-16 10:30] VITALS: BP 120/56; PULSE 69; RESP 16; TEMP 36.2; BMI 21.9
--- NOTE | 2023-01-16 11:50 | HP.PCM_ITS ---
History of Present Illness Date of Service: 01/16/23 Chief Complaint: Diabetic left foot ulcer with dermatomycosis History of Wound: This is a 77-year-old diabetic male who has been treated in the past for an ulceration on the lateral aspect of his left foot. He has previously undergone left fifth ray resection on February 04, 2021. He developed left lateral foot ulceration at this site in the past, which subsequently healed. Medical records indicate that the patient was treated for a chronic ulceration at the site with necrosis of bone in June 2022, which was healed by conservative means. Approximately 2 weeks prior to his current presentation, another superficial ulceration appeared. He presented at this time for evaluation and management. The patient is ambulatory. He suffers from multiple pre-existing medical conditions, as listed below. 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 There is no mention of osteomyelitis. It is noted that the patient has a history of peripheral arterial occlusive disease, and underwent balloon angioplasty of the left superficial femoral artery and popliteal artery by Dr. Emerson Bowens on January 20, 2021. Prior to that, a noninvasive lower extremity arterial study had revealed moderate to severe peripheral arterial occlusive disease at digital level bilaterally. [facility] Medical History Anemia Anemia of chronic renal failure, stage 4 (severe) Atherosclerosis of coronary artery bypass graft without angina pectoris Atherosclerosis of [place] artery of lower extremity with ulceration of foot Bilateral pleural effusion Callus of foot Cellulitis of left lower limb Chronic HFrEF (heart failure with reduced ejection fraction) Chronic renal failure, stage 4 (severe) Claudication of both lower extremities Delayed wound healing Dermatitis of left foot Dermatomycosis of foot Diabetes mellitus type 2 in nonobese Diabetes mellitus with neuropathy Diabetic foot ulcer associated with diabetes mellitus due to underlying condition Elevated PSA, between 10 and less than 20 ng/ml Eschar of foot Essential (primary) hypertension GERD (gastroesophageal reflux disease) Hammertoe of left foot HLD (hyperlipidemia) Hypokalemia Incarcerated right inguinal hernia Ischemic cardiomyopathy Malnutrition Mass of right breast Non-pressure chronic ulcer of other part of left foot with fat layer exposed Non-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 Osteomyelitis Peripheral vascular disease Peripheral vascular occlusive disease Right bundle branch block (RBBB) Secondary pulmonary arterial hypertension Tailor's bunion of left foot Type 2 diabetes mellitus Ulcer of left foot with fat layer exposed 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 Ulcer of left foot with necrosis of muscle Xerosis cutis Home Medications aspirin 81 mg chewable tablet 81 mg PO DAILY@0800 Check with primary doctor 09/29/14 [History Last Taken 02/03/21 06:00] pantoprazole 40 mg tablet,delayed release 40 mg PO DAILY Check with primary doctor 30 days #30 tabs 02/07/18 [History Last Taken 02/04/21 06:00] ferrous sulfate 325 mg (65 mg iron) tablet 325 mg PO DAILY@1200 Check with primary doctor 03/19/19 [History Last Taken 05/26/19] trazodone 50 mg tablet 50 mg PO QHS PRN Sleep 09/22/20 [History Last Taken Unknown] gabapentin 100 mg capsule 100 mg PO QHS 12/22/20 [History Last Taken Unknown] ammonium lactate 12 % topical cream 1 applic topical DAILY #140 grams 10/19/21 [Rx Last Taken Unknown] atorvastatin 80 mg tablet 80 mg PO QHS cholesterol #90 tabs 01/30/22 [Rx Last Taken Unknown] carvedilol 12.5 mg tablet 12.5 mg PO BID #180 tabs 03/29/22 [Rx Last Taken Unknown] escitalopram oxalate 20 mg tablet 20 mg PO DAILY 03/29/22 [History Last Taken Unknown] furosemide 20 mg tablet 60 mg PO DAILY 90 days #270 tabs 03/29/22 [Rx Last Taken Unknown] clopidogrel 75 mg tablet 75 mg PO DAILY #90 tabs 08/02/22 [Rx Last Taken Unknown] hydralazine 25 mg tablet 25 mg PO TID #270 tabs 08/04/22 [Rx Last Taken Unknown] insulin glargine 100 unit/mL (3 mL) subcutaneous pen 15 unit subcut BID 10/02/22 [History Last Taken Unknown] dulaglutide 0.75 mg/0.5 mL subcutaneous pen injector (Trulicity) 0.75 mg subcut QWEEK 12/12/22 [History Last Taken Unknown] Allergy/AdvReac Type Severity Reaction Status Date / Time atorvastatin [From Lipitor] AdvReac Mild myalgias Verified 12/12/22 08:33 Family History Brother CAD (coronary artery disease) Hx CABG Surgical History Amputated toe of left foot (01/2021) H/O coronary artery bypass surgery (04/30/14) History of angioplasty of peripheral vessel (01/20/21) History of inguinal hernia repair History of left heart catheterization (LHC) (03/20/19) History of right breast biopsy (03/2021) History of right inguinal hernia repair (03/2018) History of thoracentesis Social History Smoking Status: Never smoker alcohol intake: never substance use type: does not use caffeine: No what type of physical activity do you participate in: none seatbelt use: always do you feel safe at home: Yes Vital Signs Vital Signs Vital Signs: 01/16/23 10:30 Temperature 97.2 F L Temperature Source Temporal Pulse Rate 69 Respiratory Rate 16 Blood Pressure 120/56 L Blood Pressure Mean 77 Blood Pressure Source Monitor Blood Pressure Position Sitting Blood Pressure Location Left Arm Oxygen Delivery Method Room Air Weight Weight: 135 lb 9.985 oz Body Mass Index (BMI) 21.9 Physical Exam Const alert, oriented x3, no apparent distress, average body habitus and well nourished General Appearance: cooperative, comfortable, well kempt and well developed Orientation / Consciousness: awake, oriented to person, oriented to place and oriented to time HEENT normocephalic, head/scalp atraumatic and hearing grossly normal bilaterally Head and Scalp: normal to inspection, normocephalic and atraumatic Face and Sinus: normal facial exam Nose: external nose normal External Ear: external ears normal Eyes PERRL and EOMs intact bilaterally General Eye: normal appearance of both eyes Neck full ROM Resp normal respiratory effort, normal air movement, no retractions and no use of accessory muscles Effort and Inspection: able to speak in complete sentences Extremity no calf tenderness General Extremity: Negative for clubbing or cyanosis Skin Wound Narrative: A left fifth ray amputation is noted. Mild erythema, previously noted to encompass the lateral aspect of the left foot, is now resolved. The left lateral foot ulcerations are now completely healed and epithelialized. There is noted to be some scaly, dermatitic changes in this area. There is no sign of infection or cellulitis. Neuro oriented x3, CN's II-XII intact bilaterally, moves all extremities and no focal motor deficits Sensorium / Orientation: awake, alert, oriented to person, oriented to place and oriented to time Speech: speech normal Psych Appearance: grossly normal and appropriate Attitude: calm Activity / Motor Behavior: appropriate eye contact Speech: normal speech Mood & Affect: euthymic mood Thought Process: normal thought process Thought Content: normal thought content Attention / Concentration: attention grossly intact Debridement Note Debridement Note No debridement was completed: No debridement was completed today (There are no open wounds or ulcerations.) Post-Debridement Measurements and Additional Note: Post-Debridement Measurements/Treatment ALFREDO - Nurse 1 - General Ulcer Assessment Start: 01/16/23 10:30 Freq: Status: Active Protocol: JV Activity Type Activity Date Activity User E-sign Co-sign Detail Recorded Client Recorded Date Recorded By Document 01/16/23 10:30 MW [id number] 01/16/23 10:39 MW 01/16/23 10:30 WC - Today's Visit Information Type of service Follow-up Visit (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 ) Arrival Mode Ambulatory Transfer Assistance None Accompanied by Patient Identification Verified (Name & Yes ) Patient Requires Transmission-Based No Precautions Safety Precautions NA Finger Stick Blood Sugar(mg/dl) (if 140 indicated): Blood Sugar Stated by Patient Height and Weight Body Mass Index (BMI) 21.9 BMI Classification Normal Vital Signs Temperature (97.8 F-99.1 F) 97.2 F L Temperature Source Temporal Pulse Rate (60-100) 69 Pulse Location Monitor Respiratory Rate (12-18) 16 Respiratory rate source Observation Oxygen Delivery Method Room Air Blood Pressure (90/60-120/80) 120/56 L Blood Pressure Mean 77 Source Monitor Position Sitting Blood Pressure Location Left Arm History Since Last Visit- (Skip if this is Patient's initial visit) Have you changed medications since your No last visit? Any new allergies or adverse reactions No Had a fall/change in ADL's that may No increase risk of falls Signs or symptoms of abuse and/or No neglect since last visit Have you been in the hospital since your No last visit? Has dressing in place as prescribed No Has compression in place as prescribed Yes Has offloadiing in place as prescribed N/A Experienced any changes in pain level or No management Left Footwear Surgical Shoe with pressure relief insole Right Footwear Surgical Shoe with pressure relief insole Pain Scale: 0-10 Numeric Is Patient Pain Free? Yes WC - Nurse 1 - General Ulcer Measurement Start: 01/16/23 10:30 Freq: Status: Active Protocol: Activity Type Activity Date Activity User E-sign Co-sign Detail Recorded Client Recorded Date Recorded By Document 01/16/23 10:30 MW [id number] 01/16/23 10:39 MW 01/16/23 10:30 Wound Center Nurse 1 #5 L Lat foot/ Amp site -Combined with other wound No -Current Size (cm) - Length 0.1 -Current Size (cm) - Width 0.1 -Current Size (cm) - Depth 0.1 -Total Square Cm 0.01 -Date of Last Picture (Recall this 01/16/23 field) -Photo Taken Yes -Epithelialization None Present -Tunneling No -Undermining/Tunneling No -Circular Undermining No -Exudate Amt None Present -Wound Margin Flat & Intact -Granulation Amt None Present (0 %) -Granulation Quality N/A -Slough/Fibrin Yes -Necrosis Amt Small (1-33%) -Necrotic Tissue Type Adherent Slough -Structure Exposed N/A -Texture (Kasia-wound Skin Appearance) Assessed, Localized Edema ,Scarring -Moisture (Kasia-wound Skin Appearance) Assessed,Dry/ Scaly -Color (Kasia-wound Skin Appearance) No Abnormality, Assessed -Temperature (Kasia-wound Skin No Abnormality Appearance) (Pt Warm) -Tenderness on Palpation (Kasia-wound No Skin Appearance) -Ulcer Cleansing Rinsed/ Irrigated with Saline -Foul Odor after Cleansing No -Anesthetic Used 5% Lidocaine Gel Lower Limb Edema Present No Assessment/Plan Assessment/Plan (1) Diabetic foot ulcer associated with diabetes mellitus due to underlying condition: CODE(S): E08.621 - Diabetes mellitus due to underlying condition with foot ulcer; L97.509 - Non-pressure chronic ulcer of other part of unspecified foot with unspecified severity (2) Atherosclerosis of [place] artery of lower extremity with ulceration of foot: CODE(S): I70.25 - Atherosclerosis of [place] arteries of other extremities with ulceration; L97.509 - Non-pressure chronic ulcer of other part of unspecified foot with unspecified severity (3) Dermatomycosis of foot: CODE(S): B36.9 - Superficial mycosis, unspecified (4) Atherosclerosis of coronary artery bypass graft without angina pectoris: CODE(S): I25.810 - Atherosclerosis of coronary artery bypass graft(s) without angina pectoris QUALIFIERS: [place] vs. transplanted heart: [place] heart Qualified Code(s): I25.810 - Atherosclerosis of coronary artery bypass graft(s) without angina pectoris (5) H/O coronary artery bypass surgery: CODE(S): Z95.1 - Presence of aortocoronary bypass graft (6) Ischemic cardiomyopathy: CODE(S): I25.5 - Ischemic cardiomyopathy (7) Chronic HFrEF (heart failure with reduced ejection fraction): CODE(S): I50.22 - Chronic systolic (congestive) heart failure (8) Right bundle branch block (RBBB): CODE(S): I45.10 - Unspecified right bundle-branch block (9) Secondary pulmonary arterial hypertension: CODE(S): I27.21 - Secondary pulmonary arterial hypertension (10) Essential (primary) hypertension: CODE(S): I10 - Essential (primary) hypertension (11) HLD (hyperlipidemia): CODE(S): E78.5 - Hyperlipidemia, unspecified QUALIFIERS: Hyperlipidemia type: pure hypercholesterolemia Qualified Code(s): E78.00 - Pure hypercholesterolemia, unspecified; E78.0 - Pure hypercholesterolemia (12) Type 2 diabetes mellitus: CODE(S): E11.9 - Type 2 diabetes mellitus without complications (13) Peripheral vascular occlusive disease: CODE(S): I73.9 - Peripheral vascular disease, unspecified (14) 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 According to the patient and his , it had been present for approximately 2 weeks, though the patient has had an ulceration at the site previously, which was healed by conservative means. Of note, the patient underwent left fifth ray resection in January [address] Mandujano. He is known to be diabetic and to have a history of peripheral arterial occlusive disease, for which he underwent endovascular revascularization in January 2021. The patient has been advised to optimize his diabetic control, and to consume a nutritious, well-balanced diet. The patient's left foot ulceration is now completely healed and epithelialized. He is to be discharged at this time, and will follow-up henceforth on an as- needed basis. With respect to the scaly, dermatitic changes on the left lateral foot, a non-fragrance moisturizing lotion has been advised. Total time: 23 minutes
== END 2023-01-17 14:08 | disposition home or self-care (01) ==
LOC: WC 10:11
PROVIDERS: PCP Family Medicine; Referring Provider Surgery; Visit Provider Surgery
DX: Z09 Encounter for follow-up examination after completed treatment for conditions other than malignant neoplasm (principal); E11.51 Type 2 diabetes mellitus with diabetic peripheral angiopathy without gangrene; Z89.422 Acquired absence of other left toe(s); I50.22 Chronic systolic (congestive) heart failure; I13.0 Hypertensive heart and chronic kidney disease with heart failure and stage 1 through stage 4 chronic kidney disease, or unspecified chronic kidney disease; I27.21 Secondary pulmonary arterial hypertension; E11.22 Type 2 diabetes mellitus with diabetic chronic kidney disease; N18.4 Chronic kidney disease, stage 4 (severe); Z79.4 Long term (current) use of insulin; D63.1 Anemia in chronic kidney disease; B36.9 Superficial mycosis, unspecified; L60.2 Onychogryphosis; I25.5 Ischemic cardiomyopathy; E78.00 Pure hypercholesterolemia, unspecified; I25.10 Atherosclerotic heart disease of native coronary artery without angina pectoris; Z79.02 Long term (current) use of antithrombotics/antiplatelets; Z79.82 Long term (current) use of aspirin; Z79.899 Other long term (current) drug therapy; Z95.1 Presence of aortocoronary bypass graft; Z95.820 Peripheral vascular angioplasty status with implants and grafts
CPT/HCPCS: 99213; G0463

== ENCOUNTER 2023-12-06 09:47 | Outpatient (RCR) | payer MEDICARE, SELFPAY ==
[2023-12-06 10:06] VITALS: BP 102/52; PULSE 83; RESP 20; TEMP 36.3; BMI 24.5
--- NOTE | 2023-12-06 10:10 | HP.PCM_ITS ---
History of Present Illness Date of Service: 12/06/23 Chief Complaint: Neuropathic pressure ulceration subfifth metatarsal right foot History of Wound: This is an 78-year-old male with PMHx of DM type II with peripheral polyneuropathy, HTN, HLD, PVD, partial fifth ray amputation right foot, stage IV renal failure, and ischemic cardiomyopathy. He presented to the foot and ankle clinic on 11/28/2023 with history of plantar fifth metatarsal ulceration of the right foot 3 months in duration. Patient and state that they have been caring for it by themselves by putting triple antibiotic ointment over the site and Band-Aids. He was not offloading and diabetic shoes nor protective diabetic inserts. Does ambulate barefoot at home. He states he had not seen his vascular surgeon Dr. Bowens in 2 years at time of appointment. During examination on 11/28/2023 he demonstrated nonpalpable pedal pulses with trophic changes of the skin and delayed wound healing and thus was referred to vascular surgery, Dr. Alvarenga. They state that he does have an appointment next week with him. He did undergo local nonaggressive debridement due to his vascular disease in office and Dakin's wet-to-dry dressings were applied. Prescription was given for Dakin's and dressing supplies to be obtained and instructed to change dressing daily. Signs and symptoms of infection were discussed with the patient and and they were instructed to present to the ED if the signs were apparent. They were referred to the wound care center for continued local wound care. It was discussed with them at this time possible risk of fifth metatarsal amputation of the right foot. Admits to recent fever of 101 degree without nausea or vomiting. States his foot looks worse today. REPLACED BY [facility] Medical History Anemia Anemia of chronic renal failure, stage 4 (severe) Atherosclerosis of coronary artery bypass graft without angina pectoris Atherosclerosis of [place] artery of lower extremity with ulceration of foot Bilateral pleural effusion Callus of foot Cellulitis of left lower limb Chronic HFrEF (heart failure with reduced ejection fraction) Chronic renal failure, stage 4 (severe) Claudication of both lower extremities Delayed wound healing Dermatitis of left foot Dermatomycosis of foot Diabetes mellitus type 2 in nonobese Diabetes mellitus with neuropathy Diabetic foot ulcer associated with diabetes mellitus due to underlying condition Elevated PSA, between 10 and less than 20 ng/ml Eschar of foot Essential (primary) hypertension GERD (gastroesophageal reflux disease) Hammertoe of left foot HLD (hyperlipidemia) Hypokalemia Incarcerated right inguinal hernia Ischemic cardiomyopathy Malnutrition Mass of right breast Non-pressure chronic ulcer of other part of left foot with fat layer exposed Non-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 Osteomyelitis Peripheral vascular disease Peripheral vascular occlusive disease Right bundle branch block (RBBB) Secondary pulmonary arterial hypertension Tailor's bunion of left foot Type 2 diabetes mellitus Ulcer of left foot with fat layer exposed 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 Ulcer of left foot with necrosis of muscle Xerosis cutis Home Medications aspirin 81 mg chewable tablet 81 mg PO DAILY@0800 Check with primary doctor 09/29/14 [History Last Taken 02/03/21 06:00] pantoprazole 40 mg tablet,delayed release 40 mg PO DAILY Check with primary doctor 30 days #30 tabs 02/07/18 [History Last Taken 02/04/21 06:00] ferrous sulfate 325 mg (65 mg iron) tablet 325 mg PO DAILY@1200 Check with primary doctor 03/19/19 [History Last Taken 05/26/19] trazodone 50 mg tablet 50 mg PO QHS PRN Sleep 09/22/20 [History Last Taken Unknown] gabapentin 100 mg capsule 100 mg PO QHS 12/22/20 [History Last Taken Unknown] escitalopram oxalate 20 mg tablet 20 mg PO DAILY 03/29/22 [History Last Taken Unknown] atorvastatin 80 mg tablet 80 mg PO QHS cholesterol #90 tabs 01/25/23 [Rx Last Taken Unknown] carvedilol 12.5 mg tablet 12.5 mg PO BID #180 tabs 04/23/23 [Rx Last Taken Unknown] furosemide 20 mg tablet 60 mg (3 x 20 mg) PO DAILY 90 days #270 tabs 04/23/23 [Rx Last Taken Unknown] clopidogrel 75 mg tablet 75 mg PO DAILY #90 tabs 07/23/23 [Rx Last Taken Unknown] hydralazine 25 mg tablet See Rx Instructions .Route .COMPLEX #270 tabs 10/19/23 [Rx Last Taken Unknown] insulin glargine 100 unit/mL (3 mL) subcutaneous pen 15 unit subcut BID 12/04/23 [History Last Taken Unknown] insulin lispro 100 unit/mL subcutaneous solution (Humalog U-100 Insulin) 1 sliding scale dose subcut USEASDIRECTD 12/04/23 [History Last Taken Unknown] Allergy/AdvReac Type Severity Reaction Status Date / Time atorvastatin [From Lipitor] AdvReac Mild myalgias Verified 12/06/23 11:14 Family History (Reviewed 12/04/23 @ 09:10 by Blessing Orlando BAG MAKING MACHINE TENDER, BAG MAKING MACHINE TENDER-C) Brother CAD (coronary artery disease) Hx CABG Surgical History (Reviewed 12/04/23 @ 09:10 by Blessing Orlando BAG MAKING MACHINE TENDER, BAG MAKING MACHINE TENDER-C) Amputated toe of left foot (01/2021) H/O coronary artery bypass surgery (04/30/14) History of angioplasty of peripheral vessel (01/20/21) History of inguinal hernia repair History of left heart catheterization (LHC) (03/20/19) History of right breast biopsy (03/2021) History of right inguinal hernia repair (03/2018) History of thoracentesis Social History (Reviewed 12/04/23 @ 09:10 by Blessing Orlando BAG MAKING MACHINE TENDER, BAG MAKING MACHINE TENDER-C) Smoking Status: Never smoker alcohol intake: never substance use type: does not use caffeine: No what type of physical activity do you participate in: none seatbelt use: always do you feel safe at home: Yes ROS Constitutional Constitutional: Reports weakness; Denies change in weight, chills or fever(s) Eyes Eyes: Denies blurry vision, change in vision or double vision ENT HEENT: Denies dysphagia, nasal congestion, nasal discharge or sore throat Cardiovascular Cardiovascular: Reports claudication; Denies chest pain or palpitations Respiratory/Chest Respiratory/Chest: Denies cough, shortness of breath at rest or wheezing Gastrointestinal Gastrointestinal: Denies abdominal pain, constipation, diarrhea, nausea or vomiting Genitourinary Genitourinary: Denies dysuria, hematuria or urinary urgency Musculoskeletal Musculoskeletal: Denies joint pain, joint stiffness or joint swelling Integumentary Integumentary: Denies lesions, pruritus or rash Neurologic Neurologic: Reports dizziness; Denies numbness or seizures Psychiatric Psychiatric: Reports anxiety Endocrine Endocrinology: Denies cold intolerance or heat intolerance Hematologic/Lymphatic Hematologic/Lymphatic: Reports easy bleeding and easy bruising Physical Exam Const alert, oriented x3 and no apparent distress General Appearance: cooperative HEENT normocephalic Eyes Eyes Narrative: Wears glasses General Eye: normal appearance of both eyes Neck General: normal visual inspection Lymph Lymphatic: no lymphadenopathy noted and no lymphedema noted Resp normal respiratory effort Cardio regular rate and regular rhythm Extremity no pedal edema Extremity Narrative: DP and PT pulses nonpalpable bilateral. Capillary fill time is roughly 5 seconds to digits. Normal temperature gradient. Hair growth is absent to digits/foot with trophic changes noted. Dermatological: Skin demonstrates trophic changes consistent with microvascular diseases. Second digit of the left foot and dorsal hallux of the left foot demonstrate digital excoriation with eschar covering, no signs of infection. There is an ulceration noted subfifth metatarsal head of the right foot with significant black and necrotic tissue with palpable soft tissue crepitus overlying the dorsal aspect of the fifth metatarsal head. There is significant erythema of the dorsal right foot with lymphangitic streaking proximal anterior ankle extending to the midshaft of the tibia. Ulceration is close to the joint capsule of the fifth metatarsal phalangeal joint. There is serosanguineous drainage. No malodor is noted. Musculoskeletal: Previous partial fifth ray amputation of the left foot. Muscle strength 5 of 5 age-appropriate. No pain to palpation to the bones of the foot or ankle. Decreased range of motion of the ankle joint in dorsiflexion with the knee extended without pain or crepitus. Decreased range of motion of the first metatarsophalangeal joint without pain or crepitus. Skin no rashes or lesions noted, skin turgor normal and no jaundice Neuro oriented x3 and moves all extremities Debridement Note Debridement Note No debridement was completed: No debridement was completed today Assessment/Plan Assessment/Plan (1) Non-pressure chronic ulcer of other part of right foot with necrosis of bone: CODE(S): L97.514 - Non-pressure chronic ulcer of other part of right foot with necrosis of bone (2) Osteomyelitis of right foot: CODE(S): M86.9 - Osteomyelitis, unspecified (3) PVD (peripheral vascular disease) with claudication: CODE(S): I73.9 - Peripheral vascular disease, unspecified (4) Cellulitis of right lower limb: CODE(S): L03.115 - Cellulitis of right lower limb PLAN: Plan Patient seen and evaluated Skin demonstrates trophic changes consistent with microvascular diseases. There is an ulceration noted subfifth metatarsal head of the right foot with significant black and necrotic tissue with palpable soft tissue crepitus overlying the dorsal aspect of the fifth metatarsal head. There is significant erythema of the dorsal right foot with lymphangitic streaking proximal anterior ankle extending to the midshaft of the tibia. Ulceration is close to the joint capsule of the fifth metatarsal phalangeal joint. There is serosanguineous drainage. No malodor is noted. states that they have been changing his dressings daily. He was previously prescribed Dakin's wet-to-dry dressings and instructed on how to change this. He was instructed to continue to offload in a cam boot with a diabetic ulcer with a plantar fifth ray cut out to decrease pressure at his ulceration site. states that he did not wear this because he felt the boot was too cumbersome and the site was too painful. He continued to ambulate in shoe gear. Patient's states she did phone into the office earlier this week when she states his foot did become red and looked worse. They were prescribed doxycycline 100 mg twice daily and Augmentin twice daily and instructed that if foot redness did not improve to report to the ED. Patient did present to the wound care center today, 12/06/2023 with increased redness to the foot with lymphangitic streaking to the anterior ankle and proximal tibia. There is significant necrotic tissue with palpable soft tissue crepitus about the fifth metatarsal head dorsally of the right foot. Patient denies nausea and vomiting but states he did have a 101 degree fever 2 days ago. Discussed the need to report straight to the ED for IV antibiotics and admittance for anticipated surgical intervention. Discussed patient would need partial fifth metatarsal amputation/ray resection with an incision and drainage and wide debridement of necrotic tissue. Patient had stated that he did not want to present to the ED and to be admitted however importance of intervening in his infection was discussed with him today. Discussed if he continues to delay appropriate treatment more proximal amputation will likely be required. He voices understanding of this at this time. A dry sterile dressing was applied to the right foot and he was instructed to immediately present to the ED.
--- NOTE | 2023-12-21 13:18 | WC ---
2.22.24 LT LAT FT
== END 2023-12-13 23:59 | disposition home or self-care (01) ==
LOC: WC 09:47
PROVIDERS: PCP Family Medicine; Referring Provider Student in an Organized Health Care Education/Training Program; Visit Provider Student in an Organized Health Care Education/Training Program
DX: E11.621 Type 2 diabetes mellitus with foot ulcer (principal); E11.51 Type 2 diabetes mellitus with diabetic peripheral angiopathy without gangrene; Z89.432 Acquired absence of left foot; L97.514 Non-pressure chronic ulcer of other part of right foot with necrosis of bone; M86.8X7 Other osteomyelitis, ankle and foot; I13.0 Hypertensive heart and chronic kidney disease with heart failure and stage 1 through stage 4 chronic kidney disease, or unspecified chronic kidney disease; I50.22 Chronic systolic (congestive) heart failure; E11.42 Type 2 diabetes mellitus with diabetic polyneuropathy; E11.22 Type 2 diabetes mellitus with diabetic chronic kidney disease; E11.69 Type 2 diabetes mellitus with other specified complication; N18.4 Chronic kidney disease, stage 4 (severe); Z79.4 Long term (current) use of insulin; L03.115 Cellulitis of right lower limb; I25.10 Atherosclerotic heart disease of native coronary artery without angina pectoris; E78.5 Hyperlipidemia, unspecified; I25.5 Ischemic cardiomyopathy; D63.1 Anemia in chronic kidney disease; Z79.82 Long term (current) use of aspirin; Z79.02 Long term (current) use of antithrombotics/antiplatelets; Z79.899 Other long term (current) drug therapy
CPT/HCPCS: 99213; G0463

== ENCOUNTER 2023-12-06 11:11 | Inpatient (IN) | payer MEDICARE, SELFPAY ==
[2023-12-06] VITALS (9 sets, daily range): BP systolic 83–157; BP diastolic 45–90; PULSE 77–90; RESP 12–21; TEMP 36.2–36.8; O2SAT 91–97; BMI 22.2; BMI 24.3
--- NOTE | 2023-12-06 11:31 | EDS_ITS ---
HPI History of Present Illness Chief Complaint: Wound Check Detail of Chief Complaint: Diabetic foot infection Informant: patient and other ([employer]) Narrative Narrative: Patient sent in from podiatry for admission secondary to a diabetic foot infection. Patient reportedly has had an ulcer on his right foot for nearly 3 months. He was seen in the office last week to initiate care. Patient reported did not start his antibiotics until yesterday and was prescribed doxycycline and Levaquin. states that he vomited twice after starting the antibiotics yesterday. He had a fever of 101 three days ago but none since. Podiatry feels patient does have evidence of osteomyelitis on today's exam with a red streak up onto his leg. He will need to be admitted and seen for amputation and seen by vascular. [facility] Medical History Anemia Anemia of chronic renal failure, stage 4 (severe) Atherosclerosis of coronary artery bypass graft without angina pectoris Atherosclerosis of [place] artery of lower extremity with ulceration of foot Bilateral pleural effusion Callus of foot Cellulitis of left lower limb Chronic HFrEF (heart failure with reduced ejection fraction) Chronic renal failure, stage 4 (severe) Claudication of both lower extremities Delayed wound healing Dermatitis of left foot Dermatomycosis of foot Diabetes mellitus type 2 in nonobese Diabetes mellitus with neuropathy Diabetic foot ulcer associated with diabetes mellitus due to underlying condition Elevated PSA, between 10 and less than 20 ng/ml Eschar of foot Essential (primary) hypertension GERD (gastroesophageal reflux disease) Hammertoe of left foot HLD (hyperlipidemia) Hypokalemia Incarcerated right inguinal hernia Ischemic cardiomyopathy Malnutrition Mass of right breast Non-pressure chronic ulcer of other part of left foot with fat layer exposed Non-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 Osteomyelitis Peripheral vascular disease Peripheral vascular occlusive disease Right bundle branch block (RBBB) Secondary pulmonary arterial hypertension Tailor's bunion of left foot Type 2 diabetes mellitus Ulcer of left foot with fat layer exposed 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 Ulcer of left foot with necrosis of muscle Xerosis cutis Home Medications aspirin 81 mg chewable tablet 81 mg PO DAILY@0800 [facility] 09/29/14 [History Last Taken 02/03/21 06:00] pantoprazole 40 mg tablet,delayed release 40 mg PO DAILY Check with primary doctor 30 days #30 tabs 02/07/18 [History Last Taken 02/04/21 06:00] ferrous sulfate 325 mg (65 mg iron) tablet 325 mg PO DAILY@1200 Check with primary doctor 03/19/19 [History Last Taken 05/26/19] trazodone 50 mg tablet 50 mg PO QHS PRN Sleep 09/22/20 [History Last Taken Unknown] gabapentin 100 mg capsule 100 mg PO QHS 12/22/20 [History Last Taken Unknown] escitalopram oxalate 20 mg tablet 20 mg PO DAILY 03/29/22 [History Last Taken Unknown] atorvastatin 80 mg tablet 80 mg PO QHS cholesterol #90 tabs 01/25/23 [Rx Last Taken Unknown] carvedilol 12.5 mg tablet 12.5 mg PO BID #180 tabs 04/23/23 [Rx Last Taken Unknown] furosemide 20 mg tablet 60 mg (3 x 20 mg) PO DAILY 90 days #270 tabs 04/23/23 [Rx Last Taken Unknown] clopidogrel 75 mg tablet 75 mg PO DAILY #90 tabs 07/23/23 [Rx Last Taken Unknown] hydralazine 25 mg tablet See Rx Instructions .Route .COMPLEX #270 tabs 10/19/23 [Rx Last Taken Unknown] insulin glargine 100 unit/mL (3 mL) subcutaneous pen 15 unit subcut BID 12/04/23 [History Last Taken Unknown] insulin lispro 100 unit/mL subcutaneous solution (Humalog U-100 Insulin) See Protocol subcut DAILY 12/04/23 [History Last Taken Unknown] Allergy/AdvReac Type Severity Reaction Status Date / Time atorvastatin [From Lipitor] AdvReac Mild myalgias Verified 12/06/23 11:14 Family History Brother CAD (coronary artery disease) Hx CABG Surgical History Amputated toe of left foot (01/2021) H/O coronary artery bypass surgery (04/30/14) History of angioplasty of peripheral vessel (01/20/21) History of inguinal hernia repair History of left heart catheterization (LHC) (03/20/19) History of right breast biopsy (03/2021) History of right inguinal hernia repair (03/2018) History of thoracentesis Social History Smoking Status: Never smoker alcohol intake: never substance use type: does not use caffeine: No what type of physical activity do you participate in: none seatbelt use: always do you feel safe at home: Yes ROS ROS ED Constitutional Constitutional ED: Reports fever(s); Denies chills Eyes Eyes: Denies change in vision or discharge from eye(s) ENT ENT ED: Denies discharge from eye(s), rhinorrhea or sore throat Cardiovascular Cardiovascular: Denies chest pain or palpitations Respiratory/Chest Respiratory/Chest: Denies cough or dyspnea Gastrointestinal Gastrointestinal: Reports nausea and vomiting; Denies abdominal pain Genitourinary Genitourinary ED: Denies dysuria Musculoskeletal Musculoskeletal: Denies back pain or extremity pain Integumentary Reports other Details: Right foot ulcer ; Denies Abrasions or rash Neurologic Neurologic: Denies headache(s) or weakness Psychiatric Psychiatric: Denies anxiety or depression Allergic/Immunologic Allergic/Immunologic ED: Denies lip swelling or urticaria EXAM Physical Exam Const Vital Signs: 12/06/23 11:13 12/06/23 11:59 12/06/23 12:40 Temperature 97.5 F L 97.5 F L 97.2 F L Temperature Source Temporal Temporal Temporal Pulse Rate 84 77 77 Respiratory Rate 14 16 19 H Blood Pressure 111/45 L 83/71 L 151/70 H Blood Pressure Mean 67 75 97 Pulse Ox 97 94 91 Oxygen Delivery Method Room Air Room Air Room Air 12/06/23 13:12 Temperature Temperature Source Pulse Rate 78 Respiratory Rate 20 H Blood Pressure 154/68 H Blood Pressure Mean 96 Pulse Ox 94 Oxygen Delivery Method Room Air Positive well nourished and well developed General Appearance ED: well developed HEENT Reports moist mucous membranes Chest Wall inspection of chest normal and palpation of chest normal Resp normal respiratory effort and clear to auscultation bilaterally Cardio regular rate and regular rhythm GI non-tender Palpation: soft Extremity Extremity Narrative: 3 cm round eschar noted over the right fifth MTP joint on the lateral side of the foot. Surrounding erythema and edema noted. Lymphangitic streak noted up to mid doherty. Neuro oriented x3 MDM MDM MDM Narrative Medical decision making narrative: IV line established. Blood cultures obtained. Labwork obtained to evaluate for leukocytosis, anemia, and electrolyte derangement. Right foot x-ray obtained to evaluate for air in the soft tissue and bony destruction. Zosyn and vancomycin ordered. History & Record Review Discussion w/independent historian: Patient and Significant other Additional record(s) reviewed:: Prior labs Lab Data Attestation: I reviewed the patient's lab results. Labs: Laboratory Results - last 24 hr 12/06/23 11:45 WBC 18.7 H RBC 4.11 L Hgb 11.7 L Hct 35.6 L MCV 86.6 MCH 28.5 MCHC 32.9 RDW Std Deviation 41.1 RDW Coeff of Milad 13.0 Plt Count 345 MPV 10.4 Immature Gran % (Auto) 0.400 Neut % (Auto) 81.3 H Lymph % (Auto) 7.7 L Toole % (Auto) 10.4 H Eos % (Auto) 0.0 Baso % (Auto) 0.2 Absolute Neuts (auto) 15.2 H Absolute Lymphs (auto) 1.45 Nucleated RBC % 0 Differential Comment SCANNED Diff Path Review February foll ESR 72 H Sodium 135 L Potassium 3.8 Chloride 103 Carbon Dioxide 23.0 Anion Gap 9 BUN 45 H Creatinine 3.01 H Estim Creat Clear Calc 17.33 Est GFR (MDRD) Af Amer 26 L Est GFR (MDRD) Non-Af 21 L BUN/Creatinine Ratio 15.0 Glucose 139 H Lactic Acid 1.4 Calcium 9.1 C-React Prot Ext Range 165.00 H Radiography Diagnostic Testing: Clinical Impression(s) from Imaging Studies Foot X-Ray 12/06/23 12:00 IMPRESSION: Calcaneal Spurs. Soft tissue ulceration overlying the distal portion of the fifth metatarsal. Dorsal soft tissue swelling. Electronically Signed: Raheel Ortega MD at 12:23 EST , Treatment and Re-Evaluation :: CBC was a white count of 18.7 with 81% neutrophils. Hemoglobin is 11.7. Chemistry studies reveal a BUN of 45 and a creatinine of 3.01. It appears that baseline creatinine is around 2-1/2. Sed rate and CRP were added by Dr. Alva. Sed rate is elevated at 72 and CRP is 165. Right foot x-ray per my interpretation reveals soft tissue ulceration but no evidence of bony destruction. Radiology interpretation reviewed and agrees. Patient we discussed with hospitalist regarding admission. He will need to be evaluate by both podiatry as well as vascular surgery. Discharge Plan Triage Chief Complaint: Wound Check ED Provider: Lenora Schwab Dx/Rx/DC Orders Clinical Impression: Diabetic foot ulcer, Osteomyelitis Prescriptions: No Action pantoprazole 40 mg tablet,delayed release (DR/EC) 40 mg PO DAILY 30 Days Qty: 30 escitalopram oxalate 20 mg tablet 20 mg PO DAILY insulin lispro [Humalog U-100 Insulin] 100 unit/mL solution See Protocol subcut DAILY Protocol: 1. Sliding Scale Insulin Low Dosing Condition: 150-224 mg/dl = 1 unit Condition: 225-299 mg/dl = 2 units Condition: 300-374 mg/dl = 3 units Condition: 375-499 mg/dl = 4 units Condition: Greater than 449 call physician Protocol Text: - Use for Total Daily Dose of Insulin 15-27 units - Thin, elderly, renal patients LOW DOSING ALGORITHM Patient Comments: UNSURE OF SLIDING SCALE. HAS WRITTEN DOWN AT HOME Rx Instructions: subcutaneously daily; 1 sliding scale dose subcutaneously aspirin 81 MG tablet,chewable 81 mg PO DAILY@0800 ferrous sulfate 325 MG tablet 325 mg PO DAILY@1200 trazodone 50 MG tablet 50 mg PO QHS PRN (Reason: Sleep) insulin glargine 100 unit/mL (3 mL) insulin pen 15 unit subcut BID gabapentin 100 MG capsule 100 mg PO QHS atorvastatin 80 mg tablet 80 mg PO QHS Qty: 90 3RF Rx Instructions: TAKE 1 TABLET AT BEDTIME carvedilol 12.5 mg tablet 12.5 mg PO BID Qty: 180 3RF furosemide 20 mg tablet 60 mg PO DAILY 90 Days Qty: 270 3RF clopidogrel 75 mg tablet 75 mg PO DAILY Qty: 90 3RF hydralazine 25 mg tablet See Rx Instructions .ROUTE .COMPLEX Qty: 270 3RF Dose Instruction: TAKE 1 TABLET BY MOUTH 3 TIMES A DAY Rx Instructions: TAKE 1 TABLET BY MOUTH 3 TIMES A DAY Primary Care Provider: Elvia Cobian Referrals: Elvia Cobian, DO [Primary Care Provider] -
--- NOTE | 2023-12-06 12:00 | RAD_ITS ---
STUDY: X-RAY - RIGHT FOOT CLINICAL: Male, 78 years old. Possible infection of the foot. TECHNIQUE: 3 view(s) of the foot. COMPARISON: None. FINDINGS: Calcaneal spurs. Normal visualized subtalar, talonavicular, calcaneocuboid, tarsal and tarsometatarsal articulations. Normal metatarsi. Normal metatarsophalangeal joint of the great toe. Normal tibial and fibular sesamoid bones. Normal interphalangeal joint of the great toe. Normal phalanges of the great toe. Normal second through fifth metatarsophalangeal joints. Normal interphalangeal joints and phalanges of the lesser toes. Soft tissue ulceration overlying the distal lateral aspect of the fifth metatarsal. Dorsal soft tissue swelling. Vascular calcification. RAD/Foot min 3 Views IMPRESSION: Calcaneal Spurs. Soft tissue ulceration overlying the distal portion of the fifth metatarsal. Dorsal soft tissue swelling. Electronically Signed: Raheel Ortega MD at 12:23 EST ,
[2023-12-06 12:02] LABS: Absolute Lymphocyte Count 1.45 X10^3/uL (0.83-4.51); Absolute Neutrophil Count 15.2 X10^3/uL (2.0-7.7); Basophil# 0.03 X10^3/uL; Basophil% 0.2 % (0-1); Hematocrit 35.6 % (40-54); Hemoglobin 11.7 g/dL (13.0-16.5); Lymphocyte # 1.45 X10^3/ul (0.83-4.51); Lymphocyte % 7.7 % (19-41); Mean Corp Hgb Conc 32.9 g/dL (32-36); Mean Corpuscular Hgb 28.5 pg (27.0-32.0); Mean Corpuscular Volume 86.6 fL (80-94); Mean Platelet Vol. 10.4 fl (6.2-12.0); Monocyte# 1.94 X10^3/uL; Monocyte% 10.4 % (0-10); NRBC Flagged by Analyzer 0 % (0-5); Neutrophil # 15.22 X10^3/uL (2.7-7.7); Neutrophil % 81.3 % (47-70); POSITIVE DIFFERENTIAL YES; Platelet Count 345 K/mm3 (150-450); RBC Distribution Width SD 41.1 fl (35.1-43.9); Red Blood Count 4.11 M/mm3 (4.6-6.2); White Blood Count 18.7 K/mm3 (4.4-11.0)
[2023-12-06] MEDS: 0.9% Normal Saline (1000mL) 1,000 ML 150 ML IV (12:15)
[2023-12-06] MEDS: Piperacil/Tazobactam 3.375 GM in 0.9% Normal Saline (50mL MB+) 50 ML IV ×2 (12:15→21:15)
[2023-12-06 12:17] LABS: Differential Indicated SCAN CRITERIA MET
[2023-12-06 12:22] LABS: Anion Gap 9 (5-15); BUN 45 mg/dL (7-18); Calcium,Total 9.1 mg/dL (8.5-10.1); Chloride 103 mmol/L (98-107); Creatinine, Serum 3.01 mg/dL (0.70-1.30); EST Glomerular Filtration Rate 21 mL/min (>60); Est Glom Filt Rate - Afr Amer 26 mL/min (>60); Estimated Creatinine Clearance 17.33 ml/min; Glucose 139 mg/dL (74-106); Potassium 3.8 mmol/L (3.5-5.1); Sodium Level 135 mmol/L (136-145)
[2023-12-06] MEDS: 0.9% Normal Saline (1000mL) 1,000 ML 999 ML IV (12:33)
[2023-12-06] MEDS: Vancomycin IV 1,000 MG/200 ML BAG 200 MG IV (12:34)
[2023-12-06 12:39] LABS: Differential Comment SCANNED
[2023-12-06 12:43] LABS: Erythrocyte Sedimentation Rate 72 mm/hr (0-20)
[2023-12-06 12:46] LABS: Lactic Acid 1.4 mmol/L (0.4-1.9)
--- NOTE | 2023-12-06 13:48 | NURSING ---
MED SURG MURRAY DIABETIC FOOT INFECTION, OSTEOMYELITIS
--- NOTE | 2023-12-06 14:08 | PCM.HP.STD ---
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 He has had a nonhealing wound on his right foot for 3 months and followed with Dr[address] Alva with podiatry last week, doxycycline and Levaquin called in however patient started them yesterday but vomited twice after taking them and saw podiatry again today and now had red streak up the leg and concern for osteo so podiatry recommended patient come to the hospital for IV antibiotics and surgery and vascular consult. In ED CRP 165 and ESR 72, white blood cell count 18.7 and patient with creatinine of 3.01, last check a year ago 2.26 but prior to that has been variable. Blood cultures have been sent and hospitalist contacted for admission for podiatry and vascular evaluation and IV antibiotics. Patient evaluated with at bedside and they report history as above, nauseated twice yesterday and was nauseated earlier today with dinner as well. Does not have a lot of feeling in his feet so does not have a significant amount of pain at this time, did have redness around the wound on the lateral aspect of right foot but it did not started streaking up his foot until yesterday. Has no other focal or acute complaints. [facility]LY [facility] Medical History Anemia Anemia of chronic renal failure, stage 4 (severe) Atherosclerosis of coronary artery bypass graft without angina pectoris Atherosclerosis of platinum artery of lower extremity with ulceration of foot Bilateral pleural effusion Callus of foot Cellulitis of left lower limb Chronic HFrEF (heart failure with reduced ejection fraction) Chronic renal failure, stage 4 (severe) Claudication of both lower extremities Delayed wound healing Dermatitis of left foot Dermatomycosis of foot Diabetes mellitus type 2 in nonobese Diabetes mellitus with neuropathy Diabetic foot ulcer associated with diabetes mellitus due to underlying condition Elevated PSA, between 10 and less than 20 ng/ml Eschar of foot Essential (primary) hypertension GERD (gastroesophageal reflux disease) Hammertoe of left foot HLD (hyperlipidemia) Hypokalemia Incarcerated right inguinal hernia Ischemic cardiomyopathy Malnutrition Mass of right breast Non-pressure chronic ulcer of other part of left foot with fat layer exposed Non-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 Osteomyelitis Peripheral vascular disease Peripheral vascular occlusive disease Right bundle branch block (RBBB) Secondary pulmonary arterial hypertension Tailor's bunion of left foot Type 2 diabetes mellitus Ulcer of left foot with fat layer exposed 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 Ulcer of left foot with necrosis of muscle Xerosis cutis Home Medications aspirin 81 mg chewable tablet 81 mg PO DAILY@0800 [facility] 09/29/14 [History Last Taken 02/03/21 06:00] pantoprazole 40 mg tablet,delayed release 40 mg PO DAILY acid reflux 30 days #30 tabs 02/07/18 [History Last Taken 02/04/21 06:00] ferrous sulfate 325 mg (65 mg iron) tablet 325 mg PO DAILY@1200 iron supplement 03/19/19 [History Last Taken 05/26/19] trazodone 50 mg tablet 50 mg PO QHS PRN Sleep 09/22/20 [History Last Taken Unknown] gabapentin 100 mg capsule 100 mg PO QHS 12/22/20 [History Last Taken Unknown] escitalopram oxalate 20 mg tablet 20 mg PO DAILY 03/29/22 [History Last Taken Unknown] carvedilol 12.5 mg tablet 12.5 mg PO BID #180 tabs 04/23/23 [Rx Last Taken Unknown] furosemide 20 mg tablet 60 mg (3 x 20 mg) PO DAILY 90 days #270 tabs 04/23/23 [Rx Last Taken Unknown] clopidogrel 75 mg tablet 75 mg PO DAILY #90 tabs 07/23/23 [Rx Last Taken Unknown] insulin glargine 100 unit/mL (3 mL) subcutaneous pen 15 unit subcut BID 12/04/23 [History Last Taken Unknown] insulin lispro 100 unit/mL subcutaneous solution (Humalog U-100 Insulin) 1 sliding scale dose subcut DAILY DIABETES 12/04/23 [History Last Taken Unknown] atorvastatin 80 mg tablet 80 mg PO QHS cholesterol 12/06/23 [History Last Taken Unknown] hydralazine 25 mg tablet 25 mg PO TID PRN anxiety 12/06/23 [History Last Taken Unknown] Allergy/AdvReac Type Severity Reaction Status Date / Time atorvastatin [From Lipitor] AdvReac Mild myalgias Verified 12/06/23 11:14 Family History Brother CAD (coronary artery disease) Hx CABG Surgical History Amputated toe of left foot (01/2021) H/O coronary artery bypass surgery (04/30/14) History of angioplasty of peripheral vessel (01/20/21) History of inguinal hernia repair History of left heart catheterization (LHC) (03/20/19) History of right breast biopsy (03/2021) History of right inguinal hernia repair (03/2018) History of thoracentesis Social History Smoking Status: Never smoker alcohol intake: never substance use type: does not use caffeine: No what type of physical activity do you participate in: none seatbelt use: always do you feel safe at home: Yes ROS ROS Narrative General: Fever several days ago HENT: Denies headache, denies stuffy nose, denies sore throat EYES: Denies changes in vision Resp: Denies cough, denies shortness of breath Cardiac: Denies chest pain GI: Denies abdominal pain, denies changes in bowel, had some nausea yesterday and today : Denies changes in urination Extremity: Denies swelling MSK: Denies weakness Neuro: Some chronic numbness and tingling in extremities from diabetes Heme: Denies any bleeding or bruising Skin: Erythema around wound on lateral aspect of right foot with streaking up leg Psychiatric: No complaints voiced Vital Signs Vital Signs Vital Signs: 12/06/23 11:13 12/06/23 11:59 12/06/23 12:40 Temperature 97.5 F L 97.5 F L 97.2 F L Temperature Source Temporal Temporal Temporal Pulse Rate 84 77 77 Respiratory Rate 14 16 19 H Blood Pressure 111/45 L 83/71 L 151/70 H Blood Pressure Mean 67 75 97 Pulse Ox 97 94 91 Oxygen Delivery Method Room Air Room Air Room Air 12/06/23 13:12 12/06/23 13:42 12/06/23 13:42 Temperature 98 F 98 F Temperature Source Temporal Pulse Rate 78 77 77 Respiratory Rate 20 H 12 21 H Blood Pressure 154/68 H 157/69 H 157/69 H Blood Pressure Mean 96 98 98 Pulse Ox 94 95 94 Oxygen Delivery Method Room Air Room Air Weight Weight: 62.596 kg Body Mass Index (BMI) 22.2 Physical Exam Narrative General: Alert, no apparent distress HEENT: Atraumatic, normocephalic Eyes: Anicteric, normal conjunctiva, extraocular movements grossly intact Neck: Supple Respiratory: Clear to auscultation bilaterally, normal respiratory effort Cardiovascular: Regular rate and rhythm GI: Soft, nontender, nondistended Extremities: No edema Musculoskeletal: Moving all extremities Neuro: No overt focal neurological deficits Skin: 1 x 0.75in all slur on lateral distal aspect of right foot with surrounding erythema and tracking up foot, foul-smelling Psych: Superficially cooperative Results Lab / Micro Data 12/06/23 11:45 12/06/23 11:45 Labs: Laboratory Results - last 24 hr 12/06/23 11:45: WBC 18.7 H, RBC 4.11 L, Hgb 11.7 L, Hct 35.6 L, MCV 86.6, MCH 28.5, MCHC 32.9, RDW Std Deviation 41.1, RDW Coeff of Milad 13.0, Plt Count 345, MPV 10.4, Immature Gran % (Auto) 0.400, Neut % (Auto) 81.3 H, Lymph % (Auto) 7.7 L, [place] % (Auto) 10.4 H, Eos % (Auto) 0.0, Baso % (Auto) 0.2, Absolute Neuts (auto) 15.2 H, Absolute Lymphs (auto) 1.45, Nucleated RBC % 0, Differential Comment SCANNED, Diff Path Review February foll, ESR 72 H, Sodium 135 L, Potassium 3.8, Chloride 103, Carbon Dioxide 23.0, Anion Gap 9, BUN 45 H, Creatinine 3.01 H, Estim Creat Clear Calc 17.33, Est GFR (MDRD) Af Amer 26 L, Est GFR (MDRD) Non-Af 21 L, BUN/Creatinine Ratio 15.0, Glucose 139 H, Lactic Acid 1.4, Calcium 9.1, C-React Prot Ext Range 165.00 H Imaging Radiology Impression Foot X-Ray 12/06/23 12:00 IMPRESSION: Calcaneal Spurs. Soft tissue ulceration overlying the distal portion of the fifth metatarsal. Dorsal soft tissue swelling. Electronically Signed: Raheel Ortega MD at 12:23 EST , Assessment & Plan Assessment/Plan (1) Osteomyelitis of right foot: (2) Peripheral vascular occlusive disease: (3) Type 2 diabetes mellitus: (4) Ischemic cardiomyopathy: (5) Essential (primary) hypertension: (6) H/O coronary artery bypass surgery: (7) Chronic renal failure, stage 4 (severe): (8) Chronic HFrEF (heart failure with reduced ejection fraction): PLAN: Plan #R foot diabetic foot wound w/ cellulitis and concern for osteo -sent to ED by podiatry for admission for IV antibiotics and likely surgery as well as vascular consult -White blood cell count 18 -CRP 165 with ESR of 72, repeat in the a.m. -X-ray in ED with soft tissue swelling and ulceration -Podiatry consult -Vascular consult -Wound care consult -Blood culture sent -Broad-spectrum antibiotics -PT/OT -N.p.o. at midnight #CKD IV -Patient takes 60 of Lasix daily, creatinine seems to be up from baseline though patient appears euvolemic -Holding lasix, pt given IVF in ED, will decrease rate given heart failure -Will get urine studies as it is unclear if this is MOISÉS or just progression of his kidney disease -Will also consult nephrology -Renal diet #HFrEF, chronic -Patient takes 60 of Lasix daily, creatinine seems to be up from baseline though patient appears euvolemic -Was given IVF in ED, will decrease rate and monitor volume status -Will get urine studies as it is unclear if MOISÉS or progression of renal disease -Last echo 04/2022 with segmental systolic dysfunction EF of 40% -Daily weights, I's and O's -Remains on beta-henrán #Type 2 diabetes mellitus with neuropathy -Glucose checks and sliding scale insulin -Will decrease long acting insulin d/t npo -cont neurontin #GERD -Continue PPI #memory difficulty and Depression -Continue Lexapro - reports progressively worsening memory -Supportive care -Melatonin qhs -Continue trazodone #CAD -s/p CABG 2013 -patient is on aspirin, Plavix, statin, beta-hernán #DVT ppx: SCDs Fouzia South MD Time spent in the patient's overall evaluation,decision-making process, review of diagnostic data, adjustment of management, discussion with other providers, nursing nursing and ancillary staff involved in patient's care documentation, 55 Minutes Charges/Coding Visit Charges Inpatient E&M: 73626 Init Hosp L2
--- NOTE | 2023-12-06 15:55 | PHA.PHARE_ITS ---
Consult Antibiotic Management Pharmacy has been consulted to manage selected antibiotic: Vancomycin Type of Intervention Type of Consult: New start Suspected Infection Suspected Infection: Skin/Soft tissue Prior Doses of Antibiotics Prior Doses of Antibiotics Received/Current Regimen: Vancomycin 1000 mg IV x 1 given 12/06/23 @ 1234, patient is also on piperacillin/ tazobactam 3.375 grams Q12H Labs Labs: Sodium 135 mmol/L (136-145) L 12/06/23 11:45 Potassium 3.8 mmol/L (3.5-5.1) 12/06/23 11:45 Chloride 103 mmol/L (98-107) 12/06/23 11:45 Carbon Dioxide 23.0 mmol/L (21.0-32.0) 12/06/23 11:45 Anion Gap 9 (5-15) 12/06/23 11:45 BUN 45 mg/dL (7-18) H 12/06/23 11:45 Creatinine 3.01 mg/dL (0.70-1.30) H 12/06/23 11:45 Est GFR (MDRD) Af Amer 26 mL/min (>60) L 12/06/23 11:45 Est GFR (MDRD) Non-Af 21 mL/min (>60) L 12/06/23 11:45 BUN/Creatinine Ratio 15.0 RATIO (10-20) 12/06/23 11:45 Glucose 139 mg/dL (74-106) H 12/06/23 11:45 Dosing Weight Weight used for dosin kg Estimated Creatinine Clearance Estimated Creatinine Clearance: ~17 Goal Trough Goal Trough: 15-20 mcg/mL Pharmacy Plan for Drug Dosing Pharmacy Plan for Drug Dosing: Vancomycin 1000 mg IV x 1 in ED, an additional 500 mg IV x 1 to finish load, random on the 24 in the AM d/t poor renal function. Pharmacy Service will continue to monitor and adjust dosing as required. Follow-Up Labs Follow-Up Labs: Trough: Vancomycin Date/Time Labs Ordered Labs to be done on [date and time ordered]: 12/08/23 @ 0600
[2023-12-06] MEDS: 0.9% Normal Saline (1000mL) 1,000 ML 50 ML IV (16:23)
[2023-12-06] MEDS: Vancomycin IV 500 MG/100 ML BAG 100 MG IV (16:27)
[2023-12-06 16:34] LABS: Bedside Glucose 119 mg/dL (74-106)
[2023-12-06 16:45] LABS: Urea Nitrogen, Urine 290 mg/dL (NO RANGE EST.); Urine Chloride 55 mmol/L (Not Establ.); Urine Sodium 58 mmol/L (Not Establ.)
--- NOTE | 2023-12-06 17:01 | CON.PCM_ITS ---
Assessment & Plan Assessment/Plan (1) Cellulitis of right lower limb: (2) Osteomyelitis of right foot: (3) Non-pressure chronic ulcer of other part of right foot with necrosis of bone: (4) Diabetes mellitus with diabetic polyneuropathy: (5) PVD (peripheral vascular disease) with claudication: (6) Type 2 diabetes mellitus with foot ulcer: PLAN: Plan Patient seen and evaluated Ulceration subfifth metatarsal head right foot with significant necrotic tissue and palpable soft tissue crepitus overlying dorsal aspect of the fifth metatarsal head. There is significant erythema of the dorsal foot with lymp hangitic streaking proximal to the anterior ankle extending to the midshaft of the tibia. Ulceration is demonstrates exposure of the fifth metatarsal head. There is serosanguineous drainage and some malodor noted. WBC currently 20.1 increased from 18.7, ESR 72, CRP 165, lactic acid 1.4. Currently on IV Vanco/Zosyn Blood cultures obtained, awaiting results Tissue cultures to be obtained in surgery LEAS to be obtained, awaiting results. Radiographs obtained of the right foot 12/06/2023 demonstrating soft tissue ulceration overlying distal portion of the fifth metatarsal with dorsal soft tis bong swelling and vascular calcifications. I have discussed with patient and his the need for surgical intervention for a partial fifth ray amputation of the right foot with incision and drainage with wide debridement of necrotic tissue and washout of the right foot. Discussed that this is not an elective procedure and this is a limb salvage procedure that is necessary to prevent further spread of infection and to salvage as much of the foot as possible for continued ambulation. They voiced understanding of this. I discussed the procedure in detail. Risks, benefits, and complications were discussed in detail. Discussed risks include but are not limited to the following: Pain, continued pain, complex regional pain syndrome, neuritis/numbness, infection, the need for further surgical intervention/procedures, delayed healing/nonhealing, dehiscence, transfer lesions, edema, scarring, poor cosmetic result, difficulty wearing shoe gear, pain with shoe gear, difficulty with ambulation, inability to wear shoe gear, bleeding, stroke, heart attack, allergic reaction, blood clot, loss of function, loss of limb, loss of life. Patient and voiced understanding of these. Surgical consent to be obtained for partial fifth metatarsal/ray amputation of the right foot with incision and drainage with wide debridement of necrotic tissue, incision of bone cortex, and tissue rearrangement/skin flap of the right foot. Medicine currently following for medical management, they are appreciated. Vascular surgery consulted for likely intervention following surgical intervention by podiatry. Infectious disease consulted for antibiotic management. Wound nurse assisting in dressing changes Patient to be nonweightbearing to the right foot with assistance of a walker. Patient is to be n.p.o. after midnight. Surgical intervention scheduled for 12/07/2023 at 1 PM. Please do not hesitate to call with any questions or concerns. Vini Alva Jr. D.P.M. 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 He presents to [facility] ED with a nonhealing ulceration subfifth metatarsal head of the right foot which is deve loped cellulitis and lymphangitic streaking. Ulceration has been present for 3 months prior to seeking care in which patient and were putting antibiotic ointment and Band-Aid over ulcerative site. He was not offloading and diabetic shoes or protective inserts. He does have history of revascularization with Dr. Bowens but has not seen him in 2 years prior to his presentation to the foot and ankle clinic on 11/28/2023. At time of presentation it is noted he does not have palpable pedal pulses and LEAS was ordered, however was not completed. He was instructed to continue dressing the ulcerative site with Dakin's as there was no apparent infection at this time and radiographs were negative for osteomyelitis. He was also dispensed a CAM boot with diabetic insert with plantar offloading padding about the fifth metatarsal head. Patient states he did not wear cam boot or offloading insert as foot was too painful. He did present to wound care center this morning with worsening infection of the right foot. Patient states that 2 to 3 days prior to presentation to the wound center he developed fever of 101 degree and did have some vomiting. did call office stating that the f oot was starting to get red earlier in the week and he was placed on oral doxycycline and oral Levaquin but did not pick these up until Sunday, however due to vomiting was unable to keep medications down. In wound center dorsal right foot was noted to have significant erythema with lymphangitic streaking proximally up the ankle to the midshaft of the tibia. There is also noted necrotic tissue about the fifth metatarsal head. Due to worsening condition he was referred to the ED for IV antibiotics prior to surgical intervention. In ED WBC 18.7, ESR 72, CRP 165, lactic acid 1.4, radiographs obtained of right foot with noted soft tissue ulceration overlying the lateral aspect of the fifth metatarsal, dorsal soft tissue swelling, and vascular calcifications. [facility] Medical History (Updated 12/06/23 @ 17:[address] Vini Alva, DPM) Anemia Anemia of chronic renal failure, stage 4 (severe) Anxiety Atherosclerosis of coronary artery bypass graft without angina pectoris Atherosclerosis of [place] artery of lower extremity with ulceration of foot Bilateral pleural effusion Callus of foot Cellulitis of left lower limb Chronic HFrEF (heart failure with reduced ejection fraction) Chronic renal failure, stage 4 (severe) Claudication of both lower extremities Congestive heart failure (CHF) Delayed wound healing Dermatitis of left foot Dermatomycosis of foot Diabetes Diabetes mellitus type 2 in nonobese Diabetes mellitus with neuropathy Diabetic foot ulcer associated with diabetes mellitus due to underlying condition Elevated PSA, between 10 and less than 20 ng/ml Eschar of foot Essential (primary) hypertension GERD (gastroesophageal reflux disease) Hammertoe of left foot HLD (hyperlipidemia) Hypertension Hypokalemia Incarcerated right inguinal hernia Ischemic cardiomyopathy Malnutrition Mass of right breast Non-pressure chronic ulcer of other part of left foot with fat layer exposed Non-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 Osteomyelitis Peripheral vascular disease Peripheral vascular occlusive disease Restless legs Right bundle branch block (RBBB) Secondary pulmonary arterial hypertension Tailor's bunion of left foot Type 2 diabetes mellitus Ulcer of left foot with fat layer exposed 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 Ulcer of left foot with necrosis of muscle Xerosis cutis Home Medications aspirin 81 mg chewable tablet 81 mg PO DAILY@0800 [facility] 09/29/14 [History Last Taken 02/03/21 06:00] pantoprazole 40 mg tablet,delayed release 40 mg PO DAILY acid reflux 30 days #30 tabs 02/07/18 [History Last Taken 02/04/21 06:00] ferrous sulfate 325 mg (65 mg iron) tablet 325 mg PO DAILY@1200 iron supplement 03/19/19 [History Last Taken 05/26/19] trazodone 50 mg tablet 50 mg PO QHS PRN Sleep 09/22/20 [History Last Taken Unknown] gabapentin 100 mg capsule 100 mg PO QHS 12/22/20 [History Last Taken Unknown] escitalopram oxalate 20 mg tablet 20 mg PO DAILY 03/29/22 [History Last Taken Unknown] carvedilol 12.5 mg tablet 12.5 mg PO BID #180 tabs 04/23/23 [Rx Last Taken Unknown] furosemide 20 mg tablet 60 mg (3 x 20 mg) PO DAILY 90 days #270 tabs 04/23/23 [Rx Last Taken Unknown] clopidogrel 75 mg tablet 75 mg PO DAILY #90 tabs 07/23/23 [Rx Last Taken Unknown] insulin glargine 100 unit/mL (3 mL) subcutaneous pen 15 unit subcut BID 12/04/23 [History Last Taken Unknown] insulin lispro 100 unit/mL subcutaneous solution (Humalog U-100 Insulin) 1 sliding scale dose subcut DAILY DIABETES 12/04/23 [History Last Taken Unknown] atorvastatin 80 mg tablet 80 mg PO QHS cholesterol 12/06/23 [History Last Taken Unknown] hydralazine 25 mg tablet 25 mg PO TID PRN anxiety 12/06/23 [History Last Taken Unknown] Allergy/AdvReac Type Severity Reaction Status Date / Time atorvastatin [From Lipitor] AdvReac Mild myalgias Verified 12/06/23 11:14 Family History Brother CAD (coronary artery disease) Hx CABG Surgical History Amputated toe of left foot (01/2021) H/O coronary artery bypass surgery (04/30/14) History of angioplasty of peripheral vessel (01/20/21) History of inguinal hernia repair History of left heart catheterization (LHC) (03/20/19) History of right breast biopsy (03/2021) History of right inguinal hernia repair (03/2018) History of thoracentesis Social History Smoking Status: Never smoker alcohol intake: never substance use type: does not use caffeine: No what type of physical activity do you participate in: none seatbelt use: always do you feel safe at home: Yes ROS Constitutional Constitutional: Reports weakness; Denies chills, fever(s) or headache(s) Eyes Eyes: Denies change in vision, diplopia or loss of vision ENT HEENT: Denies dysphagia, nasal congestion, nasal discharge or sore throat Cardiovascular Cardiovascular: Reports claudication; Denies chest pain or palpitations Respiratory/Chest Respiratory/Chest: Denies dyspnea, shortness of breath at rest or wheezing Gastrointestinal Gastrointestinal: Denies abdominal pain, constipation, diarrhea, nausea or vomiting Genitourinary Genitourinary: Denies dysuria, hematuria or urinary urgency Musculoskeletal Musculoskeletal: Denies joint pain, joint stiffness or joint swelling Integumentary Integumentary: Denies jaundice, lesions, pruritus or rash Neurologic Neurologic: Denies dizziness, numbness or seizures Psychiatric Psychiatric: Reports depression Endocrine Endocrinology: Denies cold intolerance or heat intolerance Hematologic/Lymphatic Hematologic/Lymphatic: Reports easy bleeding and easy bruising Allergic/Immunologic Allergic/Immunologic: Denies wheezing Physical Exam Const alert, oriented x3 and no apparent distress General Appearance: cooperative HEENT normocephalic Eyes Eyes Narrative: Wears glasses General Eye: normal appearance of both eyes Neck General: normal visual inspection Lymph Lymphatic: no lymphadenopathy noted and no lymphedema noted Resp normal respiratory effort Cardio regular rate and regular rhythm Extremity no calf tenderness Extremity Narrative: DP and PT pulses nonpalpable bilateral. Capillary fill time is roughly 5 seconds digits. Normal temperature gradient. Hair growth is absent to digits/foot with trophic changes noted. Dermatological: Skin demonstrates trophic changes consistent with microvascular disease. Second digit of the left foot and dorsal hallux of the left foot demonstrate digital excoriation with eschar covering, no signs of infection. There is an ulceration noted to the subfifth metatarsal Head of the right foot with significant blackened necrotic tissue with palpable soft tissue crepitus overlying the dorsal aspect of the fifth metatarsal head. There is significant erythema of the dorsal right foot with lymphangitic streaking proximal anterior ankle extending to the midshaft of the tibia. Ulceration is close to the joint capsule of the fifth metatarsophalangeal joint with some exposure of bone. There is serosanguineous drainage and some malodor noted. Neurological: Decreased protective sensation noted to both feet secondary to diabetic peripheral polyneuropathy. Musculoskeletal: Previous partial fifth ray amputation of the left foot. Muscle strength 5 of 5 age-appropriate. No pain to palpation of the bones of the foot or ankle. Decreased range of motion of the ankle joint in dorsiflexion with the knee extended without pain or crepitus. Decreased range of motion of the first metatarsophalangeal joint without pain or crepitus. Skin no rashes or lesions noted, skin turgor normal and no jaundice Neuro oriented x3 and moves all extremities Lab / Micro Data 12/07/23 05:00 12/07/23 05:00 Labs: Laboratory Results - last 24 hr 12/06/23 11:45: WBC 18.7 H, RBC 4.11 L, Hgb 11.7 L, Hct 35.6 L, MCV 86.6, MCH 28.5, MCHC 32.9, RDW Std Deviation 41.1, RDW Coeff of Milad 13.0, Plt Count 345, MPV 10.4, Immature Gran % (Auto) 0.400, Neut % (Auto) 81.3 H, Lymph % (Auto) 7.7 L, Bartholomew % (Auto) 10.4 H, Eos % (Auto) 0.0, Baso % (Auto) 0.2, Absolute Neuts (auto) 15.2 H, Absolute Lymphs (auto) 1.45, Nucleated RBC % 0, Differential Comment SCANNED, Diff Path Review February, ESR 72 H, Sodium 135 L, Potassium 3.8, Chloride 103, Carbon Dioxide 23.0, Anion Gap 9, BUN 45 H, Creatinine 3.01 H , Estim Creat Clear Calc 17.33, Est GFR (MDRD) Af Amer 26 L, Est GFR (MDRD) Non- Af 21 L, BUN/Creatinine Ratio 15.0, Glucose 139 H, Lactic Acid 1.4, Calcium 9.1, C-React Prot Ext Range 165.00 H 12/06/23 15:51: POC Glucose 119 H 12/06/23 16:15: Ur Random Sodium 58, Urine Creatinine 31.60, Urine Potassium 19.0, Urine Chloride 55, Urine Urea Nitrogen 290 Imaging Radiology Impression Foot X-Ray 12/06/23 12:00 IMPRESSION: Calcaneal Spurs. Soft tissue ulceration overlying the distal portion of the fifth metatarsal. Dorsal soft tissue swelling. Electronically Signed: Raheel Ortega MD at 12:23 EST ,
[2023-12-06] MEDS: Glucerna Shake 120 ML LIQUID PO (17:03)
[2023-12-06 17:17] LABS: Osmolality, Urine 254 mOsm/KG
[2023-12-06] MEDS: Gabapentin 100 MG Capsule PO (21:16)
[2023-12-06] MEDS: MELATONIN 10 MG TABLET PO (21:23)
[2023-12-06] MEDS: Atorvastatin Calcium 80 MG Tablet PO (21:24)
[2023-12-06] MEDS: Carvedilol 12.5 MG Tablet PO (21:24)
[2023-12-06 21:49] LABS: Bedside Glucose 136 mg/dL (74-106)
[2023-12-07] VITALS (12 sets, daily range): BP systolic 91–144; BP diastolic 37–83; PULSE 67–82; RESP 16–18; TEMP 36.4–36.9; O2SAT 87–98; BMI 24.3
[2023-12-07 05:44] LABS: Bedside Glucose 105 mg/dL (74-106)
[2023-12-07 05:48] LABS: Anion Gap 6 (5-15); BUN 40 mg/dL (7-18); BUN/Creat Ratio 14.3 RATIO (10-20); Calcium,Total 8.9 mg/dL (8.5-10.1); Chloride 110 mmol/L (98-107); EST Glomerular Filtration Rate 23 mL/min (>60); Est Glom Filt Rate - Afr Amer 28 mL/min (>60); Estimated Creatinine Clearance 16.93 ml/min; Glucose 109 mg/dL (74-106); Potassium 3.5 mmol/L (3.5-5.1); Sodium Level 139 mmol/L (136-145)
--- NOTE | 2023-12-07 05:55 | EKG12_ITS ---
Test Reason : MNELL Blood Pressure : / mmHG Vent. Rate : 077 BPM Atrial Rate : 077 BPM P-R Int : 162 ms QRS Dur : 140 ms QT Int : 466 ms P-R-T Axes : 044 -49 055 degrees QTc Int : 527 ms Normal sinus rhythm Left axis deviation Right bundle branch block Anteroseptal infarct , age undetermined Abnormal ECG Confirmed by LOUANN CIFUENTES, GLENNA ([id number]), primer expeditor and drier NATALY NATHAN ([id number]) on 12/07/2023 10:55:07 AM Referred By: TERRI Confirmed By:GLENNA LEW MD
[2023-12-07 07:19] LABS: Erythrocyte Sedimentation Rate 64 mm/hr (0-20)
[2023-12-07 07:21] LABS: Absolute Lymphocyte Count 1.66 X10^3/uL (0.83-4.51); Absolute Neutrophil Count 16.1 X10^3/uL (2.0-7.7); Basophil# 0.03 X10^3/uL; Basophil% 0.1 % (0-1); Hematocrit 32.3 % (40-54); Hemoglobin 10.4 g/dL (13.0-16.5); Lymphocyte # 1.66 X10^3/ul (0.83-4.51); Lymphocyte % 8.3 % (19-41); Mean Corp Hgb Conc 32.2 g/dL (32-36); Mean Corpuscular Hgb 28.1 pg (27.0-32.0); Mean Corpuscular Volume 87.3 fL (80-94); Mean Platelet Vol. 10.7 fl (6.2-12.0); Monocyte# 2.21 X10^3/uL; NRBC Flagged by Analyzer 0 % (0-5); Neutrophil # 16.07 X10^3/uL (2.7-7.7); Neutrophil % 79.9 % (47-70); POSITIVE DIFFERENTIAL YES; Platelet Count 350 K/mm3 (150-450); RBC Distribution Width CV 13.2 % (11.6-14.6); RBC Distribution Width SD 41.9 fl (35.1-43.9); White Blood Count 20.1 K/mm3 (4.4-11.0)
[2023-12-07 07:24] LABS: Differential Indicated SCAN CRITERIA MET
[2023-12-07] MEDS: Escitalopram Oxalate 20 MG Tablet PO (07:43)
[2023-12-07] MEDS: Pantoprazole Sodium 40 MG Tablet PO (07:43)
[2023-12-07] MEDS: Carvedilol 12.5 MG Tablet PO ×2 (07:43→22:12)
[2023-12-07 08:01] LABS: Differential Comment SCANNED
[2023-12-07 08:07] LABS: Hemoglobin A1c 7.9 % (3.8-5.6)
--- NOTE | 2023-12-07 08:41 | PCM.PN.HOSP ---
Reason for Visit Reason for Visit: Diagnoses Type 2 diabetes mellitus without complications (12/06/23) Essential (primary) hypertension (12/06/23) Ischemic cardiomyopathy (12/06/23) Chronic systolic (congestive) heart failure (12/06/23) Peripheral vascular disease, unspecified (12/06/23) Osteomyelitis, unspecified (12/06/23) Chronic kidney disease, stage 4 (severe) (12/06/23) Presence of aortocoronary bypass graft (12/06/23) Objective Data Objective Data Vital Signs: Vital Signs Temp Pulse Resp BP Pulse Ox O2 Del Method 98.4 F 78 16 142/58 H 98 Room Air 12/07/23 08:36 12/07/23 08:36 12/07/23 08:36 12/07/23 08:36 12/07/23 08:36 12/07/23 08:36 Oxygen Delivery Method Room Air Weight: 137 lb 5.568 oz Body Mass Index (BMI) 24.3 Intake & Output: Intake and Output for Last 24 Hours 12/05/23 12/06/23 12/07/23 23:59 23:59 23:59 Intake Total 2242.5 / 2242.5 695.83 / 695.83 Output Total 1600 / 1600 300 / 300 Balance 642.5 / 642.5 395.83 / 395.83 Lab / Micro Data 12/07/23 05:00 12/07/23 05:00 Labs: Laboratory Results - last 24 hr 12/06/23 11:45: WBC 18.7 H, RBC 4.11 L, Hgb 11.7 L, Hct 35.6 L, MCV 86.6, MCH 28.5, MCHC 32.9, RDW Std Deviation 41.1, RDW Coeff of Milad 13.0, Plt Count 345, MPV 10.4, Immature Gran % (Auto) 0.400, Neut % (Auto) 81.3 H, Lymph % (Auto) 7.7 L, [place] % (Auto) 10.4 H, Eos % (Auto) 0.0, Baso % (Auto) 0.2, Absolute Neuts (auto) 15.2 H, Absolute Lymphs (auto) 1.45, Nucleated RBC % 0, Differential Comment SCANNED, Diff Path Review February, ESR 72 H, Sodium 135 L, Potassium 3.8, Chloride 103, Carbon Dioxide 23.0, Anion Gap 9, BUN 45 H, Creatinine 3.01 H, Estim Creat Clear Calc 17.33, Est GFR (MDRD) Af Amer 26 L, Est GFR (MDRD) Non-Af 21 L, BUN/Creatinine Ratio 15.0, Glucose 139 H, Lactic Acid 1.4, Calcium 9.1, C-React Prot Ext Range 165.00 H 12/06/23 15:51: POC Glucose 119 H 12/06/23 16:15: Urine Osmolality 254, Ur Random Sodium 58, Urine Creatinine 31.60, Urine Potassium 19.0, Urine Chloride 55, Urine Urea Nitrogen 290 12/06/23 21:19: POC Glucose 136 H 12/07/23 05:00: WBC 20.1 H, RBC 3.70 L, Hgb 10.4 L, Hct 32.3 L, MCV 87.3, MCH 28.1, MCHC 32.2, RDW Std Deviation 41.9, RDW Coeff of Milad 13.2, Plt Count 350, MPV 10.7, Immature Gran % (Auto) 0.700, Neut % (Auto) 79.9 H, Lymph % (Auto) 8.3 L, [place] % (Auto) 11.0 H, Eos % (Auto) 0.0, Baso % (Auto) 0.1, Absolute Neuts (auto) 16.1 H, Absolute Lymphs (auto) 1.66, Nucleated RBC % 0, Differential Comment SCANNED, Diff Path Review February, ESR 64 H, Sodium 139, Potassium 3.5, Chloride 110 H, Carbon Dioxide 23.0, Anion Gap 6, BUN 40 H, Creatinine 2.80 H, Estim Creat Clear Calc 16.93, Est GFR (MDRD) Af Amer 28 L, Est GFR (MDRD) Non-Af 23 L, BUN/Creatinine Ratio 14.3, Glucose 109 H, Hemoglobin A1c 7.9 H, Calcium 8.9, C-React Prot Ext Range 174.00 H 12/07/23 05:25: POC Glucose 105 Radiography Diagnostic Testing: Radiology Impression Foot X-Ray 12/06/23 12:00 IMPRESSION: Calcaneal Spurs. Soft tissue ulceration overlying the distal portion of the fifth metatarsal. Dorsal soft tissue swelling. Electronically Signed: Raheel Ortega MD at 12:23 EST , Physical Exam Narrative General: Alert, no apparent distress HEENT: Atraumatic, normocephalic Eyes: Anicteric, normal conjunctiva, extraocular movements grossly intact Neck: Supple Respiratory: Clear to auscultation bilaterally, normal respiratory effort Cardiovascular: Regular rate and rhythm GI: Soft, nontender, nondistended Extremities: No edema Musculoskeletal: Moving all extremities Neuro: No overt focal neurological deficits Skin: 1 x 0.75in all slur on lateral distal aspect of right foot with surrounding erythema and tracking up foot, foul-smelling Psych: Superficially cooperative Assessment & Plan Assessment/Plan (1) Osteomyelitis of right foot: (2) Peripheral vascular occlusive disease: (3) Type 2 diabetes mellitus: (4) Ischemic cardiomyopathy: (5) Essential (primary) hypertension: (6) H/O coronary artery bypass surgery: (7) Chronic renal failure, stage 4 (severe): (8) Chronic HFrEF (heart failure with reduced ejection fraction): PLAN: Plan This is a 78-year-old male was admitted for nonhealing wound on the right foot for about 3 months being followed by Dr. Alva. #R foot diabetic foot wound w/ cellulitis and concern for osteomyelitis: Patient is being on [facility] floor. Has nonhealing wound for at least 3 months. Was a started on doxycycline and Levaquin day before admission but patient vomited twice. Patient also had Registry going up to the right lower leg. IV antibiotics vancomycin and Zosyn. Patient has significant leukocytosis, 18K increased to 20.1 thousand. Afebrile. CRP 165 with ESR of 72, repeat CRP and ESR are elevated. CRP 174 and ESR 64. -X-ray in ED with dorsal soft tissue swelling and ulcer overlying the distal portion of the fifth metatarsal. Calcaneal Spurs. Light Rail Transit Operator is consulted. Vascular surgery consulted. Wound care nurse consulted. Blood cultures x 2 sent. IV broad-spectrum antibiotics. PT and OT. Plan for surgery today #CKD IV -Patient takes 60 of Lasix daily, creatinine seems to be up from baseline though patient appears euvolemic -Holding lasix, pt given IVF in ED, will decrease rate given heart failure. Improvement in creatinine. -Urine osmolarity 254, sodium 58, creatinine 30.6 potassium 19 chloride 55 urea nitrogen 290. -Database Modeler consulted. -Renal diet #HFrEF, chronic -Last echo 04/2022 with segmental systolic dysfunction EF of 40%. Holding Lasix as mentioned above. -Daily weights, I's and O's -Remains on beta-hernán #Type 2 diabetes mellitus with neuropathy -Glucose checks and sliding scale insulin decrease long acting insulin d/t npo -cont neurontin A1c 7.9%. Glucose 109 in BMP. #GERD -Continue PPI #memory difficulty and Depression -Continue Lexapro - reports progressively worsening memory -Supportive care -Melatonin qhs -Continue trazodone #CAD -s/p CABG 2013 -patient is on aspirin, Plavix, statin, beta-hernán #DVT ppx: SCDs Charges/Coding Visit Charges Inpatient E&M: 48566 Subs Hosp L2
[2023-12-07] MEDS: Piperacil/Tazobactam 3.375 GM in 0.9% Normal Saline (50mL MB+) 50 ML IV ×2 (10:13→22:12)
[2023-12-07] MEDS: 0.9% Saline Lock 10 ML Syringe IV (10:13)
--- NOTE | 2023-12-07 10:16 | CASEMGMT ---
RN PEPE Assessment: Face to Face with pt for initial transition planning/care coordination assessment. RN CM introduced self and role at [facility], pt voices understanding and consents to assessment. Pt is A&O x3 and answers questions appropriately at this time. Spouse at bedside providing most of the answers. Care providers, pharmacy, and demographics verified/updated. Admitting Dx: R foot diabetic wound PCP:Dr. Cobian Specialists: follows with [facility], and Dr. Alva with podiatry. Spouse often accompanies pt to his dr appointments due to his recent memory loss. Preferred [facility]acy[facility] Insurance: [employer] Medicare Prescription Benefit: yes LNOK: Spouse Vicki Living Arrangements: Pt lives at home with spouse, single story with a basement. Pt on occasion goes down to the basement but per spouse does not need to. Pt has 2 steps to enter the home through the garage with bilateral raining. Pt is independent with ADLs and IADLs. Transportation: Pt and spouse share driving and report no transportation needs. DME: Has a walker but does not use it. Has a can that he uses on occasion and with cueing from spouse, one grab bar. HHC/SNF: HHC in 2014 after heart surgery but unsure of the name. Pt and spouse open to HHC if needed at discharge. No SNF history. Pt states no concerns with going home at time of dc. Pt states no further concerns/needs. CM to follow. Advised pt to ask CM if any further question/concerns/needs arise, voices understanding. Pt Goal: Home Plan: Home Jacey HEALY, RN, CCM
--- NOTE | 2023-12-07 11:59 | CON.PCM.RE_ITS ---
Assessment & Plan Assessment/Plan (1) Chronic renal failure, stage 4 (severe): PLAN: Last known lab is from 2021 and at that time creatinine was 2.2. This admission creatinine was 3.1, slightly better at 2.8. Likely CKD stage IV. No microalbuminuria on previous estimations. Blood pressure is on the lower side, likely chronic. Volume tabor, he appears euvolemic, hold Lasix. He has received small amount of IV fluids. Reviewed old imaging. He had an MRI in 2019 which showed a possible renal tumor. No follow-up scans available. He does not remember having any surgeries on the kidneys. Will try to get records. If normal, we will repeat an ultrasound Okay to go to surgery today On vancomycin, monitor Levels closely HPI Consult Data Date of Consult: 12/07/23 HPI Narrative Reason for Consultation: CKD/MOISÉS HPI Narrative: TAM BUSTOS, is a 78 M who presents to the hospital with suspected osteomyelitis of the right lower extremity. He has known history of lower extremity wound for which she was seeing podiatry, he was seen in the office yesterday. Erythema, worsening infection. He was admitted here for suspicion of osteomyelitis. Scheduled to go to the OR today. Currently has a Celestin catheter decent urine output. On review of chart, it seems she has no history of CKD stage IV, baseline creatinine between 2.2-2.4. His creatinine was 3.1 yesterday, slightly better at 2.8 today. No breathing difficulties. No significant peripheral edema. History of congestive heart failure with reduced ejection fraction,. Takes Lasix at home. Review of systems negative except above [facility] Medical History (Updated 12/06/23 @ 17:[address] Vini Alva, DPLarry) Anemia Anemia of chronic renal failure, stage 4 (severe) Anxiety Atherosclerosis of coronary artery bypass graft without angina pectoris Atherosclerosis of [place] artery of lower extremity with ulceration of foot Bilateral pleural effusion Callus of foot Cellulitis of left lower limb Chronic HFrEF (heart failure with reduced ejection fraction) Chronic renal failure, stage 4 (severe) Claudication of both lower extremities Congestive heart failure (CHF) Delayed wound healing Dermatitis of left foot Dermatomycosis of foot Diabetes Diabetes mellitus type 2 in nonobese Diabetes mellitus with neuropathy Diabetic foot ulcer associated with diabetes mellitus due to underlying condition Elevated PSA, between 10 and less than 20 ng/ml Eschar of foot Essential (primary) hypertension GERD (gastroesophageal reflux disease) [facility] HLD (hyperlipidemia) Hypertension Hypokalemia Incarcerated right inguinal hernia Ischemic cardiomyopathy Malnutrition Mass of right breast Non-pressure chronic ulcer of other part of left foot with fat layer exposed Non-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 Osteomyelitis Peripheral vascular disease Peripheral vascular occlusive disease Restless legs Right bundle branch block (RBBB) Secondary pulmonary arterial hypertension Tailor's bunion of left foot Type 2 diabetes mellitus Ulcer of left foot with fat layer exposed 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 Ulcer of left foot with necrosis of muscle Xerosis cutis Home Medications aspirin 81 mg chewable tablet 81 mg PO DAILY@0800 [facility] 09/29/14 [History Last Taken 02/03/21 06:00] pantoprazole 40 mg tablet,delayed release 40 mg PO DAILY acid reflux 30 days #30 tabs 02/07/18 [History Last Taken 02/04/21 06:00] ferrous sulfate 325 mg (65 mg iron) tablet 325 mg PO DAILY@1200 iron supplement 03/19/19 [History Last Taken 05/26/19] trazodone 50 mg tablet 50 mg PO QHS PRN Sleep 09/22/20 [History Last Taken Unknown] gabapentin 100 mg capsule 100 mg PO QHS 12/22/20 [History Last Taken Unknown] escitalopram oxalate 20 mg tablet 20 mg PO DAILY 03/29/22 [History Last Taken Unknown] carvedilol 12.5 mg tablet 12.5 mg PO BID #180 tabs 04/23/23 [Rx Last Taken Unknown] furosemide 20 mg tablet 60 mg (3 x 20 mg) PO DAILY 90 days #270 tabs 04/23/23 [Rx Last Taken Unknown] clopidogrel 75 mg tablet 75 mg PO DAILY #90 tabs 07/23/23 [Rx Last Taken Unknown] insulin glargine 100 unit/mL (3 mL) subcutaneous pen 15 unit subcut BID 12/04/23 [History Last Taken Unknown] insulin lispro 100 unit/mL subcutaneous solution (Humalog U-100 Insulin) 1 slid ing scale dose subcut DAILY DIABETES 12/04/23 [History Last Taken Unknown] atorvastatin 80 mg tablet 80 mg PO QHS cholesterol 12/06/23 [History Last Taken Unknown] hydralazine 25 mg tablet 25 mg PO TID PRN anxiety 12/06/23 [History Last Taken Unknown] Allergy/AdvReac Type Severity Reaction Status Date / Time atorvastatin [From Lipitor] AdvReac Mild myalgias Verified 12/06/23 11:14 Family History Brother CAD (coronary artery disease) Hx CABG Surgical History Amputated toe of left foot (01/2021) H/O coronary artery bypass surgery (04/30/14) History of angioplasty of peripheral vessel (01/20/21) History of inguinal hernia repair History of left heart catheterization (LHC) (03/20/19) History of right breast biopsy (03/2021) History of right inguinal hernia repair (03/2018) History of thoracentesis Social History Smoking Status: Never smoker alcohol intake: never substance use type: does not use caffeine: No what type of physical activity do you participate in: none seatbelt use: always do you feel safe at home: Yes Physical Exam Narrative Alert awake oriented x 3 no obvious distress no pallor no icterus no JVD s1s2 no murmurs lungs clear abdomen soft no organomegaly no edema no cyanosis celestin + Lab / Micro Data 12/07/23 05:00 12/07/23 05:00 Labs: Laboratory Results - last 24 hr 12/06/23 11:45: WBC 18.7 H, RBC 4.11 L, Hgb 11.7 L, Hct 35.6 L, MCV 86.6, MCH 28.5, MCHC 32.9, RDW Std Deviation 41.1, RDW Coeff of Milad 13.0, Plt Count 345, MPV 10.4, Immature Gran % (Auto) 0.400, Neut % (Auto) 81.3 H, Lymph % (Auto) 7.7 L, [place] % (Auto) 10.4 H, Eos % (Auto) 0.0, Baso % (Auto) 0.2, Absolute Neuts (auto) 15.2 H, Absolute Lymphs (auto) 1.45, Nucleated RBC % 0, Differential Comment SCANNED, Diff Path Review February, ESR 72 H, Sodium 135 L, Potassium 3.8, Chloride 103, Carbon Dioxide 23.0, Anion Gap 9, BUN 45 H, Creatinine 3.01 H , Estim Creat Clear Calc 17.33, Est GFR (MDRD) Af Amer 26 L, Est GFR (MDRD) Non- Af 21 L, BUN/Creatinine Ratio 15.0, Glucose 139 H, Lactic Acid 1.4, Calcium 9.1, C-React Prot Ext Range 165.00 H 12/06/23 15:51: POC Glucose 119 H 12/06/23 16:15: Urine Osmolality 254, Ur Random Sodium 58, Urine Creatinine 31.60, Urine Potassium 19.0, Urine Chloride 55, Urine Urea Nitrogen 290 12/06/23 21:19: POC Glucose 136 H 12/07/23 05:00: WBC 20.1 H, RBC 3.70 L, Hgb 10.4 L, Hct 32.3 L, MCV 87.3, MCH 28.1, MCHC 32.2, RDW Std Deviation 41.9, RDW Coeff of Milad 13.2, Plt Count 350, MPV 10.7, Immature Gran % (Auto) 0.700, Neut % (Auto) 79.9 H, Lymph % (Auto) 8.3 L, [place] % (Auto) 11.0 H, Eos % (Auto) 0.0, Baso % (Auto) 0.1, Absolute Neuts (auto) 16.1 H, Absolute Lymphs (auto) 1.66, Nucleated RBC % 0, Differential Comment SCANNED, Diff Path Review February, ESR 64 H, Sodium 139, Potassium 3.5, Chloride 110 H, Carbon Dioxide 23.0, Anion Gap 6, BUN 40 H, Creatinine 2.80 H, Estim Creat Clear Calc 16.93, Est GFR (MDRD) Af Amer 28 L, Est GFR (MDRD) Non-Af 23 L, BUN/Creatinine Ratio 14.3, Glucose 109 H, Hemoglobin A1c 7.9 H, Calcium 8.9, C-React Prot Ext Range 174.00 H 12/07/23 05:25: POC Glucose 105 Imaging Radiology Impression Foot X-Ray 12/06/23 12:00 IMPRESSION: Calcaneal Spurs. Soft tissue ulceration overlying the distal portion of the fifth metatarsal. Dorsal soft tissue swelling. Electronically Signed: Raheel Ortega MD at 12:23 EST ,
--- NOTE | 2023-12-07 12:30 | NURSING ---
pt to surgery
[2023-12-07 12:42] LABS: Bedside Glucose 160 mg/dL (74-106)
--- NOTE | 2023-12-07 13:00 | BON_PTH ---
PATIENT: TAM BUSTOS LOC: ICU U#:[id number] AGE/SX: 78/M ROOM: [facility] RE12/06/[address]: Dr. Kostas Salcido MD : 1945 BED: 1 DIS: 12/22/2023 SPEC #: [id number] RECD: 12/07/23 16:54 STATUS: TYRONE REQ #: [id number] BRITTANY: 12/07/23 13:[address]: Vini Alva DEPT: SURGICAL PATHOLOGY RECD BY: Jocelyne Norwood ENTERED: 12/10/23 10:13 SP TYPE: Bone OTHR DR: MD Dr. Lucy Nice MD Kristin M Wenger, DO Dr. Michael Marshall, MINALM MD Dr. Fouzia Light MD Dr. Robert Leininger, MD Tissues: A - Toe, NOS B - Toe, NOS Procedures: Decalcification bone/plaque Surgery Specimen Level IV Comments: @ Ordering doctor for DEC edited from to DR.MMARS Jarred VILLANUEVA at 12/10/23 113 @ Ordering doctor for SUIV edited from to DR.MMARS Jarred VILLANUEVA at 12/10/23 1136 @ Submitting doctor edited from to DR.MMARS Jarred VILLANUEVA at 12/10/23 1136 HEADER OPERATION: Partial fifth metatarsal/ray amputation of right foot PRE-OP DIAGNOSIS: Osteomyelitis of right foot; peripheral vascular occlusive disease TISSUE SUBMITTED: A - Right fifth metatarsal, B - Right fourth metatarsal MICROSCOPIC DIAGNOSIS A. Right fifth metatarsal bone, excision: Skin and soft tissue with ulceration and associated acute and chronic inflammation. Bone with acute osteomyelitis. B. Right fourth metatarsal bone, excision: Reactive and reparative change with focal acute osteomyelitis. AM:prudence 12/13/2023 MICROSCOPIC DESCRIPTION Slides are reviewed. GROSS DESCRIPTION A - Received in fixative is one container labeled with the patient's name and designated right fifth metatarsal. The specimen consists of multiple irregular fragments of bone, light nathan soft tissue and nail that in aggregate measure 6.0 x 5.0 x 1.5 cm. Barista sections are submitted in one cassette after decalcification. B - Received in fixative is one container labeled with the patient's name and designated right fourth metatarsal. The specimen consists of an elongated fragment of nathan bone with attached soft tissue measuring 3.0 cm in length and 1.5 cm in diameter. A longitudinal section is submitted in one cassette after decalcification. / AM:prudence 12/10/2023 TC:2 CPT: 45553 x2, 77931 x2
--- NOTE | 2023-12-07 13:00 | RAD_ITS ---
STUDY: X-RAY - RIGHT FOOT CLINICAL: Male, 78 years old. Pain. TECHNIQUE: 4 fluoroscopic spot films of the right foot. COMPARISON: Right foot radiographs dated 12/06/2023. FINDINGS: Normal talus, calcaneus, and tarsal bones. Normal visualized subtalar, talonavicular, calcaneocuboid, tarsal and tarsometatarsal articulations. Normal first through third metatarsals. The distal halves of the fourth and fifth metatarsals have been resected. The fifth digit phalanges have also been resected. There is preservation of the fourth digit phalanges. Normal metatarsophalangeal joint of the great toe. Normal tibial and fibular sesamoid bones. Normal interphalangeal joint of the great toe. Normal phalanges of the great toe. Normal second through fifth metatarsophalangeal joints. Normal interphalangeal joints and phalanges of the second and third toes. RAD/Foot 2 Views IMPRESSION: Distal halves of the fourth and fifth metatarsals have been resected. Resection of the fifth digit phalanges. Preservation of the fourth digit phalanges. Electronically Signed: José Mosley MD at 15:05 EST ,
[2023-12-07] MEDS: Lidocaine 1% (30 ml sdv) 30 ML Vial (13:15)
[2023-12-07] MEDS: Bupivacaine Mpf 0.5% 30 ML VIAL (13:15)
[2023-12-07 13:20] LABS: Pathologist Review Reviewed
[2023-12-07] MEDS: Vancomycin IV 1,000 MG/20 ML Vial 1000 MG OPERA.SITE (14:17)
--- NOTE | 2023-12-07 14:49 | EX.PCM.CON.S ---
Assessment & Plan Assessment/Plan (1) Atherosclerosis of [place] artery of lower extremity with ulceration of foot: (2) Diabetic foot ulcer: PLAN: Plan Arterial studies still pending, but anticipate likely need for intervention to improve RLE inflow. Will tentatively plan for RLE angiogram with CO2 to reduce dye burden given his decreased kidney function. This procedure including risks, benefits, and recovery were discussed with the patient and his . They are agreeable to proceed. 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 Continue ASA 81mg daily, Plavix 75mg daily, and Atorvastatin 80mg daily. HPI Consult Data Date of Consult: 12/07/23 HPI Narrative HPI Narrative: TAM BUSTOS, is a 78 M who presented to the [facility] ER on 12/06/2023 from the wound center for a diabetic foot infection with concern for osteomyelitis. He was admitted for IV antibiotics and surgical intervention. Blood and wound cultures are pending. His WBC remains elevated at 20.1. ESR and CRP also remain elevated. He is on IV vanc and zosyn. Patient is seen resting in bed with his at bedside. His supplements much of the history. She reports that this wound to his right fifth toe has been present for about 3 months. They had been caring for the wound at home with antibiotic ointment and dry dressing until presenting to the wound center last week. He is diabetic with significant peripheral neuropathy, A1c at admission was 7.9. He denies significant pain in the foot or claudication. He does have a prior history of left toe amputation secondary to infected ulceration. At that time, he also had LLE vascular intervention by Dr. Bowens. By their description, he had endovascular intervention though they are otherwise unsure of the details. They deny any prior RLE vascular intervention. He has not followed with Dr. Bowens for over 2 years. Unfortunately, no records available for review. Outpatient LEAS had been ordered but was not completed prior to his admission here. Inpatient arterial studies are still pending. He is on ASA, Plavix, and statin. He is also noted to have CKD with Cr 2.8 and GFR 23 today, slightly better from yesterday. His medical history is otherwise significant for CAD s/p CABG, HTN, CHF. Dr. Alva is taking him for partial fifth ray amputation of the right foot and debridement of necrotic/infected tissue today. [facility] Medical History (Updated 12/06/23 @ 17:[address] Vini Alva, DPM) Anemia Anemia of chronic renal failure, stage 4 (severe) Anxiety Atherosclerosis of coronary artery bypass graft without angina pectoris Atherosclerosis of [place] artery of lower extremity with ulceration of foot Bilateral pleural effusion Callus of foot Cellulitis of left lower limb Chronic HFrEF (heart failure with reduced ejection fraction) Chronic renal failure, stage 4 (severe) Claudication of both lower extremities Congestive heart failure (CHF) Delayed wound healing Dermatitis of left foot Dermatomycosis of foot Diabetes Diabetes mellitus type 2 in nonobese Diabetes mellitus with neuropathy Diabetic foot ulcer associated with diabetes mellitus due to underlying condition Elevated PSA, between 10 and less than 20 ng/ml Eschar of foot Essential (primary) hypertension GERD (gastroesophageal reflux disease) [place] of left foot HLD (hyperlipidemia) Hypertension Hypokalemia Incarcerated right inguinal hernia Ischemic cardiomyopathy Malnutrition Mass of right breast Non-pressure chronic ulcer of other part of left foot with fat layer exposed Non-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 Osteomyelitis Peripheral vascular disease Peripheral vascular occlusive disease Restless legs Right bundle branch block (RBBB) Secondary pulmonary arterial hypertension Tailor's bunion of left foot Type 2 diabetes mellitus Ulcer of left foot with fat layer exposed 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 Ulcer of left foot with necrosis of muscle Xerosis cutis Home Medications aspirin 81 mg chewable tablet 81 mg PO DAILY@0800 [facility] 09/29/14 [History Last Taken 02/03/21 06:00] pantoprazole 40 mg tablet,delayed release 40 mg PO DAILY acid reflux 30 days #30 tabs 02/07/18 [History Last Taken 02/04/21 06:00] ferrous sulfate 325 mg (65 mg iron) tablet 325 mg PO DAILY@1200 iron supplement 03/19/19 [History Last Taken 05/26/19] trazodone 50 mg tablet 50 mg PO QHS PRN Sleep 09/22/20 [History Last Taken Unknown] gabapentin 100 mg capsule 100 mg PO QHS 12/22/20 [History Last Taken Unknown] escitalopram oxalate 20 mg tablet 20 mg PO DAILY 03/29/22 [History Last Taken Unknown] carvedilol 12.5 mg tablet 12.5 mg PO BID #180 tabs 04/23/23 [Rx Last Taken Unknown] furosemide 20 mg tablet 60 mg (3 x 20 mg) PO DAILY 90 days #270 tabs 04/23/23 [Rx Last Taken Unknown] clopidogrel 75 mg tablet 75 mg PO DAILY #90 tabs 07/23/23 [Rx Last Taken Unknown] insulin glargine 100 unit/mL (3 mL) subcutaneous pen 15 unit subcut BID 12/04/23 [History Last Taken Unknown] insulin lispro 100 unit/mL subcutaneous solution (Humalog U-100 Insulin) 1 sliding scale dose subcut DAILY DIABETES 12/04/23 [History Last Taken Unknown] atorvastatin 80 mg tablet 80 mg PO QHS cholesterol 12/06/23 [History Last Taken Unknown] hydralazine 25 mg tablet 25 mg PO TID PRN anxiety 12/06/23 [History Last Taken Unknown] Allergy/AdvReac Type Severity Reaction Status Date / Time atorvastatin [From Lipitor] AdvReac Mild myalgias Verified 12/06/23 11:14 Family History Brother CAD (coronary artery disease) Hx CABG Surgical History Amputated toe of left foot (01/2021) H/O coronary artery bypass surgery (04/30/14) History of angioplasty of peripheral vessel (01/20/21) History of inguinal hernia repair History of left heart catheterization (LHC) (03/20/19) History of right breast biopsy (03/2021) History of right inguinal hernia repair (03/2018) History of thoracentesis Social History Smoking Status: Never smoker alcohol intake: never substance use type: does not use caffeine: No what type of physical activity do you participate in: none seatbelt use: always do you feel safe at home: Yes Physical Exam Const alert and no apparent distress General Appearance: cooperative and comfortable HEENT normocephalic, head/scalp atraumatic, hearing grossly normal bilaterally, external ears normal and external nose normal Eyes EOMs intact bilaterally General Eye: normal appearance of both eyes Neck General: normal visual inspection and trachea midline Resp normal respiratory effort, no retractions and no use of accessory muscles Effort and Inspection: able to speak in complete sentences; Negative for labored, stridor or audible wheezes Cardio regular rate and regular rhythm Extremity Extremity Narrative: Monophasic DP, biphasic PT doppler signals in the R foot Dressing was not removed directly over the wound, but erythema was noted to be streaking up the doherty. Foul odor. Skin Wounds: wounds noted Neuro CN's II-XII intact bilaterally, moves all extremities, no focal motor deficits and no sensory deficits noted Lab / Micro Data 12/07/23 05:00 12/07/23 05:00 Labs: Laboratory Results - last 24 hr 12/06/23 11:45: Diff Path Review Reviewed 12/06/23 15:51: POC Glucose 119 H 12/06/23 16:15: Urine Osmolality 254, Ur Random Sodium 58, Urine Creatinine 31.60, Urine Potassium 19.0, Urine Chloride 55, Urine Urea Nitrogen 290 12/06/23 21:19: POC Glucose 136 H 12/07/23 05:00: WBC 20.1 H, RBC 3.70 L, Hgb 10.4 L, Hct 32.3 L, MCV 87.3, MCH 28.1, MCHC 32.2, RDW Std Deviation 41.9, RDW Coeff of Milad 13.2, Plt Count 350, MPV 10.7, Immature Gran % (Auto) 0.700, Neut % (Auto) 79.9 H, Lymph % (Auto) 8.3 L, [place] % (Auto) 11.0 H, Eos % (Auto) 0.0, Baso % (Auto) 0.1, Absolute Neuts (auto) 16.1 H, Absolute Lymphs (auto) 1.66, Nucleated RBC % 0, Differential Comment SCANNED, Diff Path Review February, ESR 64 H, Sodium 139, Potassium 3.5, Chloride 110 H, Carbon Dioxide 23.0, Anion Gap 6, BUN 40 H, Creatinine 2.80 H, Estim Creat Clear Calc 16.93, Est GFR (MDRD) Af Amer 28 L, Est GFR (MDRD) Non-Af 23 L, BUN/Creatinine Ratio 14.3, Glucose 109 H, Hemoglobin A1c 7.9 H, Calcium 8.9, C-React Prot Ext Range 174.00 H 12/07/23 05:25: POC Glucose 105 12/07/23 10:52: POC Glucose 160 H
--- NOTE | 2023-12-07 14:57 | CHAPLAIN ---
Type of Pastoral Visit ___ Initial Visit ___ Follow-up Visit ___ On-call Visit ___ General Patient Visit ___ Spiritual Assessment ___ Family Conference ___ Bereavement ___ Rapid Response ___ Code Blue ___ Other (describe below) Pastoral Care Referral From ___ Patient ___ Family ___ Nurse ___ Physician ___ Beauty Culturist Apprentice ___ Tourist Camp Attendant ___ Other (describe below) Sacrament/Intervention ___ Active listening ___ Anointing ___ Druze ___ Bereavement ___ Communion ___ Tanna exploration ___ ___ Life review ___ Prayer ___ Reconciliation ___ Sacrament of Sick ___ Supportive presence ___ Wedding ___ Other (describe below) Pastoral Comments patient and bed are out of the room at time of visit; left a calling card
--- NOTE | 2023-12-07 14:59 | OP.PCM_ITS ---
Problems Associated Problem List Diagnoses (1) Osteomyelitis of right foot: (2) Non-pressure chronic ulcer of other part of right foot with necrosis of bone: (3) Diabetes mellitus with diabetic polyneuropathy: (4) PVD (peripheral vascular disease) with claudication: (5) Type 2 diabetes mellitus with foot ulcer: Report of Operation Date of Procedure: 12/07/23 Pre-Operative Diagnosis: 1. Neuropathic pressure ulceration with necrotic tissue to the level of bone, right foot 2. Osteomyelitis fifth metatarsal and fifth digit right foot 3. Cellulitis right foot 4. Diabetes mellitus type 2 with peripheral polyneuropathy Post-Operative Diagnosis: 1. Neuropathic pressure ulceration with necrotic tissue to the level of bone, right foot 2. Osteomyelitis fifth metatarsal and fifth digit right foot 3. Cellulitis right foot 4. 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 Partial fifth ray amputation right foot 2. Partial fourth metatarsal amputation right foot 3. Incision of bone cortex right foot 4. Incision and drainage with wide debridement of necrotic tissue right foot 5. Tissue rearrangement/skin flap right foot Description of Surgical Findings:: See operative note for findings Surgeon: Vini Alva welding rod coater: Anirudh Deng DPM PGY-1 Type of Anesthesia: Local (20 cc one-to-one mixture 1% lidocaine plain and 0.5% Marcaine plain) and MAC Specimen's removed: Fifth metatarsal bone and fourth metatarsal bone right foot; tissue right foot Drains: None Estimated Blood Loss (mL): < 10mL Description of Procedure: HPI/indication: Patient is an 78-year-old male with longstanding history of diabetes mellitus type 2 with peripheral polyneuropathy and peripheral vascular disease, who presents to [facility] wound center with nonhealing neuropathic diabetic pressure ulceration subfifth metatarsal right foot which has been present for the last 3 months but had worsened over the last week. He was admitted due to black and necrotic tissue with soft tissue crepitus overlying the dorsal aspect of the fifth metatarsal with exposure of bone and cellulitis of the dorsal foot with lymphangitic streaking to the midshaft of the tibia. I have discussed with patient and his the need for surgical intervention for a partial fifth ray amputation of the right foot with incision and drainage with wide debridement of necrotic tissue and washout of the right foot. Discussed that this is not an elective procedure and this is a limb salvage procedure that is necessary to prevent further spread of infection and to salvage as much of the foot as possible for continued ambulation. They voiced understanding of this. I discussed the procedure in detail. Risks, benefits, and complications were discussed in detail. Discussed risks include but are not limited to the following: Pain, continued pain, complex regional pain syndrome, neuritis/numbness, infection, the need for further surgical intervention/procedures, delayed healing/nonhealing, dehiscence, transfer lesions, edema, scarring, poor cosmetic result, difficulty wearing shoe gear, pain with shoe gear, difficulty with ambulation, inability to wear shoe gear, bleeding, stroke, heart attack, allergic reaction, blood clot, loss of function, loss of limb, loss of life. Patient and voiced understanding of these. Surgical consent was signed freely by the patient for partial fifth metatarsal/ray amputation of the right foot with incision and drainage with wide debridement of necrotic tissue, incision of bone cortex, and tissue rearran gement/skin flap of the right foot. Surgical intervention planned for 12/07/2023. Patient was seen prior to surgical intervention and operative limb was signed prior to entering the OR. Procedure: Under mild sedation patient was brought to the operating room placed on the table in supine position. Patient was secured to table with safety belt. [place] bump was placed under right hip and right foot elevated via a blanket bump. A local anesthetic injection was performed about the right ankle consisting of 20 cc one-to-one mixture 1% lidocaine plain 0.5% Marcaine plain. Foot was then scrubbed, prepped, and draped in usual aseptic manner. Pneumatic ankle tourniquet was not utilized due to peripheral vascular disease. At this time attention was directed to the right foot where via fluoroscopic imaging incision placement was guided over the fifth metatarsal. Under fluoroscopic imaging it is noted obstruction of the distal one third of the fifth metatarsal is noted secondary to osteomyelitis with erosions of the lateral aspect of the fourth metatarsal head. A linear incision was utilized over the fifth metatarsal and extended distally encompassing the ulceration over the plantar lateral aspect of the fifth metatarsal. Ulcerative skin about the fifth metatarsal head was sharply excised utilizing #15 blade to expose the remaining portion of bone in the operative field. Tissue was passed from operative field to table in total. Next attention was directed to the base of the fifth digit where significant tissue destruction was noted with blackened necrotic bone at the base of the proximal phalanx of the fifth digit. The digit was sharply disarticulated at the fifth metatarsal phalangeal joint and passed from the operative field to the table in total. There was a significant malodor noted upon disarticulation of the digit with some purulence about the fifth MTPJ. Next, a bone cutter was utilized to resect the head of the fifth metatarsal and the head of the fifth metatarsal was sharply dissected free of surrounding tissue and passed from the operative field to the table in total. Fifth metatarsal head was noted to be black in color and soft with liquefaction of bone noted consistent with osteomyelitis. Fifth metatarsal head was then transected with pieces going to microbiology and pathology for analysis. Fifth metatarsal bone upon transection noted to have foul odor. This time all necrotic tissue was debrided to healthy bleeding viable tissue about the fifth metatarsal and dorsal foot overlying the fourth metatarsal. No purulence pockets were noted along the dorsal foot or within the fourth metatarsal interspace. Next, utilizing assistance of fluoroscopy a sagittal saw was utilized to resect the remaining portion of the distal fifth metatarsal at the midshaft of bone. Upon use a sagittal saw he was noted that this portion of the fifth metatarsal was noted to be of hard consistency and viability. This bone cut was noted to be slightly angled to reduce lateral prominence and plantar prominence to decrease risk of future ulceration near the base of the fifth metatarsal. At this time sites were flushed with copious amounts of normal st erile saline. Soft tissues were again inspected and there was noted to be healthy bleeding viable tissue about the fifth metatarsal, however the lateral aspect of the fourth metatarsal head and neck were noted to be discolored with some necrotic tissue of the soft tissue covering and periosteum consistent with osteomyelitis. Sagittal saw was then utilized to resect the distal one third of the fourth metatarsal under assistance of fluoroscopy and the bone was sharply dissected free and passed from the operative field to the table in total. Fourth metatarsal bone was then sent to pathology for analysis. Base of the fourth digit was noted to be healthy in coloration and hard in consistency indicating viable proximal phalanx base of the fourth digit. At this time foot was copiously irrigated with 3000 cc pulse lavage and following washout site was inspected again with no evidence of remaining tissue necrosis and no visible abscess pockets remaining. At this time new gloves were donned and previous surgical instrumentation was discarded and new sterile instruments were used for the remainder of this case. Remaining tissue was healthy in appearance with good bleeding. Next, a tissue rearrangement procedure was created utilizing a #15 blade to create a skin flap for aesthetically pleasing closure of the surgical site. Skin flap was noted to be tension-free and noted to provide good coverage of the surgical site with no exposure of tissue or bone. Next, final fluoroscopic imaging was obtained confirming resection of the distal fifth metatarsal and distal fourth metatarsal in multiple views. At this time 1 g of vancomycin powder was placed throughout the surgical site and the deep tissues were closed with 4-0 Vicryl. Subcutaneous tissues of the skin flap were closed with 4-0 Monocryl. Skin was reapproximated in a tension-free aspect utilizing 3-0 Prolene in simple interrupted fashion. Following closure of the surgical site skin flap was noted to remain pink and healthy in color and erythema of the foot noted to be much improved. Incision sites were then dressed with Betadine soaked Adaptic, 4 x 4 gauze, Kerlix, and 4 inch Sean wrap rolled onto the right foot. Patient tolerated the anesthesia and procedure well was transported the PACU vital signs stable vascular status intact to remaining digits of the right foot. Following anesthesia protocol he will return to medical surgical floor and continue to receive IV antibiotics. He is to remain nonweightbearing to the right lower extremity with the assistance of a walker. Dressings to remain clean, dry, and intact to the right foot. Dressings may be reinforced for strikethrough. Dressing is to remain in place to not disturb skin flap and I will continue to follow patient while in house with next dressing change to take place on 12/10/2023. Grafts/Implants Used: 1 g vancomycin powder Complications None Admit VTE Documentation VTE Present on Admission: No VTE Mechan Device Prophylaxis: SCD's VTE Pharm Prophylaxis ordered?: No Reason prophylaxis not ordered:: Procedure Not Indicated
--- NOTE | 2023-12-07 15:08 | RAD_ITS ---
STUDY: X-RAY - RIGHT FOOT CLINICAL: Male, 78 years old. Postop partial fifth ray, partial fourth ray amp. TECHNIQUE: 3 views of the right foot. COMPARISON: Right foot radiographs dated 12/06/2023. FINDINGS: Intact talus, calcaneus, and tarsal bones. There are plantar and posterior calcaneal spurs. Normal visualized subtalar, talonavicular, calcaneocuboid, tarsal and tarsometatarsal articulations. Normal first through third metatarsals. The distal halves of the fourth and fifth metatarsals have been resected. The fifth digit phalanges have also been resected. There is preservation of the fourth digit phalanges. Normal metatarsophalangeal joint of the great toe. Normal tibial and fibular sesamoid bones. Normal interphalangeal joint of the great toe. Normal phalanges of the great toe. Normal second through fifth metatarsophalangeal joints. Normal interphalangeal joints and phalanges of the second and third toes. There are atherosclerotic calcifications. RAD/Foot min 3 Views IMPRESSION: Distal halves of the fourth and fifth metatarsals have been resected. Resection of the fifth digit phalanges. Preservation of the fourth digit phalanges. Plantar and posterior calcaneal spurs. Electronically Signed: José Mosley MD at 15:25 EST ,
[2023-12-07] MEDS: Insulin Lispro 100 UNIT/ML INSULN.PEN SC ×2 (16:24→22:09)
[2023-12-07] MEDS: Juven (unflavored) Packet 1 PACKET PO (16:25)
--- NOTE | 2023-12-07 17:16 | NURSING ---
This RN verified student nurse EMR HTT documentation. Gilda Moreno MSN, RN [id number] 12/07
[2023-12-07 17:51] LABS: Bedside Glucose 171 mg/dL (74-106)
[2023-12-07] MEDS: Insulin Glargine-YFGN 100 UNIT/ML Pen 7 UNIT SC (22:10)
[2023-12-07] MEDS: oxyCODONE 5 MG Tablet PO (22:11)
[2023-12-07] MEDS: Gabapentin 100 MG Capsule PO (22:11)
[2023-12-07] MEDS: Atorvastatin Calcium 80 MG Tablet PO (22:11)
[2023-12-07] MEDS: MELATONIN 10 MG TABLET PO (22:12)
[2023-12-07 22:47] LABS: Bedside Glucose 289 mg/dL (74-106)
[2023-12-08 02:40] VITALS: BP 106/47; PULSE 67; RESP 18; TEMP 36.6; O2SAT 95
[2023-12-08 05:15] VITALS: BMI 24.2
[2023-12-08] MEDS: Insulin Lispro 100 UNIT/ML INSULN.PEN SC ×4 (06:07→21:16)
[2023-12-08 06:46] LABS: Bedside Glucose 204 mg/dL (74-106)
[2023-12-08 06:48] LABS: Absolute Lymphocyte Count 2.07 X10^3/uL (0.83-4.51); Absolute Neutrophil Count 12.1 X10^3/uL (2.0-7.7); Basophil# 0.08 X10^3/uL; Basophil% 0.5 % (0-1); Eosinophil# 0.02 X10^3/uL; Eosinophils% 0.1 % (0-5); Hematocrit 29.6 % (40-54); Hemoglobin 9.5 g/dL (13.0-16.5); Lymphocyte # 2.07 X10^3/ul (0.83-4.51); Lymphocyte % 12.9 % (19-41); Mean Corp Hgb Conc 32.1 g/dL (32-36); Mean Corpuscular Hgb 28.4 pg (27.0-32.0); Mean Corpuscular Volume 88.6 fL (80-94); Mean Platelet Vol. 10.6 fl (6.2-12.0); Monocyte# 1.68 X10^3/uL; Monocyte% 10.5 % (0-10); NRBC Flagged by Analyzer 0 % (0-5); Neutrophil # 12.07 X10^3/uL (2.7-7.7); Neutrophil % 75.3 % (47-70); POSITIVE DIFFERENTIAL YES; Platelet Count 322 K/mm3 (150-450); RBC Distribution Width CV 13.3 % (11.6-14.6); RBC Distribution Width SD 43.5 fl (35.1-43.9); Red Blood Count 3.34 M/mm3 (4.6-6.2)
[2023-12-08 06:50] LABS: Differential Indicated SCAN CRITERIA MET
[2023-12-08 07:03] LABS: Anion Gap 7 (5-15); BUN 50 mg/dL (7-18); BUN/Creat Ratio 16.5 RATIO (10-20); Chloride 110 mmol/L (98-107); Creatinine, Serum 3.03 mg/dL (0.70-1.30); EST Glomerular Filtration Rate 21 mL/min (>60); Est Glom Filt Rate - Afr Amer 26 mL/min (>60); Estimated Creatinine Clearance 15.65 ml/min; Glucose 217 mg/dL (74-106); Potassium 3.8 mmol/L (3.5-5.1); Sodium Level 139 mmol/L (136-145)
[2023-12-08] MEDS: Insulin Glargine-YFGN 100 UNIT/ML Pen 7 UNIT SC ×2 (07:21→21:16)
[2023-12-08] MEDS: Juven (unflavored) Packet 1 PACKET PO ×2 (07:21→16:24)
[2023-12-08] MEDS: Aspirin 81 MG TAB.CHEW PO (07:21)
[2023-12-08] MEDS: Carvedilol 12.5 MG Tablet PO ×2 (07:21→21:06)
[2023-12-08] MEDS: Escitalopram Oxalate 20 MG Tablet PO (07:21)
[2023-12-08] MEDS: Pantoprazole Sodium 40 MG Tablet PO (07:21)
[2023-12-08] MEDS: Clopidogrel Bisulfate 75 MG Tablet PO (07:21)
--- NOTE | 2023-12-08 07:36 | PCM.RX.CS ---
Consult Antibiotic Management Pharmacy has been consulted to manage selected antibiotic: Vancomycin Type of Intervention Type of Consult: Follow-up Suspected Infection Suspected Infection: Skin/Soft tissue and Osteomyelitis Labs Labs: Sodium 139 mmol/L (136-145) 12/08/23 06:13 Potassium 3.8 mmol/L (3.5-5.1) 12/08/23 06:13 Chloride 110 mmol/L (98-107) H 12/08/23 06:13 Carbon Dioxide 22.0 mmol/L (21.0-32.0) 12/08/23 06:13 Anion Gap 7 (5-15) 12/08/23 06:13 BUN 50 mg/dL (7-18) H 12/08/23 06:13 Creatinine 3.03 mg/dL (0.70-1.30) H 12/08/23 06:13 Est GFR (MDRD) Af Amer 26 mL/min (>60) L 12/08/23 06:13 Est GFR (MDRD) Non-Af 21 mL/min (>60) L 12/08/23 06:13 BUN/Creatinine Ratio 16.5 RATIO (10-20) 12/08/23 06:13 Glucose 217 mg/dL (74-106) H 12/08/23 06:13 Random Vancomycin 14.0 ug/mL (0.0-15.0) 12/08/23 06:13 Microbiology Microbiology: Microbiology 12/06/23 11:50 Blood Culture (Wb) - Right Hand Blood Culture - Preliminary No growth in 48 hours. 12/06/23 11:45 Blood Culture (Wb) - Left Wrist Blood Culture - Preliminary No growth in 48 hours. Pharmacy Plan for Drug Dosing Pharmacy Plan for Drug Dosing: VANCOMYCIN LEVEL RECEIVED Current Vancomycin Dose: Had total of 1500MG 12/06 Number of Doses Received: 2 (1000mg x1 and 500mg x1) Vancomycin Level: 14 mg/dL Hours Since Last Dose: 38 Renal Function: SCr 3.03 mg/dL, CrCl 15 mL/min Renal Function Trend: worsened Lab/Micro: surgery cultures pending Vancomycin Plan/Comments: 38 hour random level is slightly subtherapeutic (goal 15-20mg /dL). CrCl is 15 mL/min so will continue to dose by level. Will give a x1 weight based dose of 1000mg and get a random level in 24 hours. Pending Level: 12/09/23 @ 0800 - random Pharmacy Service will continue to monitor and adjust dosing as required.
[2023-12-08] MEDS: Vancomycin IV 1,000 MG/200 ML BAG 200 MG IV (08:18)
[2023-12-08 08:47] VITALS: BP 111/70; PULSE 71; RESP 16; TEMP 36.5; O2SAT 95
[2023-12-08] MEDS: Piperacil/Tazobactam 3.375 GM in 0.9% Normal Saline (50mL MB+) 50 ML IV ×2 (09:39→21:08)
[2023-12-08] MEDS: Menthol/Lanolin/Calamine/Znox 113 GM Tube 1 APPLIC TOPICAL ×2 (09:39→21:06)
[2023-12-08] MEDS: Ferrous Sulfate 325 MG Tablet PO (11:25)
[2023-12-08 11:51] LABS: Bedside Glucose 281 mg/dL (74-106)
[2023-12-08 12:02] VITALS: BP 111/58; PULSE 66; RESP 16; TEMP 36.5; O2SAT 95
--- NOTE | 2023-12-08 15:33 | PCM.PN.HOSP ---
Reason for Visit Reason for Visit: Diagnoses Type 2 diabetes mellitus with diabetic polyneuropathy (12/06/23) Type 2 diabetes mellitus with foot ulcer (12/06/23) Type 2 diabetes mellitus without complications (12/06/23) Essential (primary) hypertension (12/06/23) Ischemic cardiomyopathy (12/06/23) Chronic systolic (congestive) heart failure (12/06/23) Peripheral vascular disease, unspecified (12/06/23) Cellulitis of right lower limb (12/06/23) Non-pressure chronic ulcer of other part of unspecified foot with unspecified severity (12/06/23) Non-pressure chronic ulcer of other part of right foot with necrosis of bone (12/06/23) Osteomyelitis, unspecified (12/06/23) Chronic kidney disease, stage 4 (severe) (12/06/23) Presence of aortocoronary bypass graft (12/06/23) Objective Data Objective Data Vital Signs: Vital Signs Temp Pulse Resp BP Pulse Ox O2 Del Method O2 Flow Rate 97.7 F L 66 16 111/58 L 95 Room Air 2 12/08/23 12:02 12/08/23 12:02 12/08/23 12:02 12/08/23 12:02 12/08/23 12:02 12/08/23 14:06 12/07/23 16:39 Oxygen Flow Rate (L/min) 2 Oxygen Delivery Method Room Air Weight: 136 lb 10.986 oz Body Mass Index (BMI) 24.2 Intake & Output: Intake and Output for Last 24 Hours 12/06/23 12/07/23 12/08/23 23:59 23:59 23:59 Intake Total 2242.5 / 2242.5 1545.83 / 1545.83 650 / 650 Output Total 1600 / 1600 580 / 580 750 / 750 Balance 642.5 / 642.5 965.83 / 965.83 -100 / -100 Lab / Micro Data 12/08/23 06:13 12/08/23 06:13 Labs: Laboratory Results - last 24 hr 12/07/23 16:15: POC Glucose 171 H 12/07/23 22:06: POC Glucose 289 H 12/08/23 06:06: POC Glucose 204 H 12/08/23 06:13: WBC 16.0 H, RBC 3.34 L, Hgb 9.5 L, Hct 29.6 L, MCV 88.6, MCH 28.4, MCHC 32.1, RDW Std Deviation 43.5, RDW Coeff of Milad 13.3, Plt Count 322, MPV 10.6, Immature Gran % (Auto) 0.700, Neut % (Auto) 75.3 H, Lymph % (Auto) 12.9 L, [place] % (Auto) 10.5 H, Eos % (Auto) 0.1, Baso % (Auto) 0.5, Absolute Neuts (auto) 12.1 H, Absolute Lymphs (auto) 2.07, Nucleated RBC % 0, Diff Path Review February, Sodium 139, Potassium 3.8, Chloride 110 H, Carbon Dioxide 22.0, Anion Gap 7, BUN 50 H, Creatinine 3.03 H, Estim Creat Clear Calc 15.65, Est GFR (MDRD) Af Amer 26 L, Est GFR (MDRD) Non-Af 21 L, BUN/Creatinine Ratio 16.5, Glucose 217 H, Calcium 9.0, Random Vancomycin 14.0 12/08/23 11:22: POC Glucose 281 H Micro: Microbiology 12/07/23 13:30 Tissue - 5th Toe Gram Stain - Final 12/07/23 13:30 Tissue - 5th Toe Wound Culture - Preliminary Mixed Gram Positive Organisms 12/06/23 11:50 Blood Culture (Wb) - Right Hand Blood Culture - Preliminary No growth in 48 hours. 12/06/23 11:45 Blood Culture (Wb) - Left Wrist Blood Culture - Preliminary No growth in 48 hours. Physical Exam Narrative Seen and examined. Patient had surgery yesterday. Postop day 1. General: Alert, Oriented x3, Cooperative HEENT: Atraumatic, PERRLA, EOMI, Normocephalic Oral: Oral mucosa moist. No Gingival or Mucosal Lesions/ Ulcerations Neck: Supple, No JVD, Negative Carotid Bruits Chest wall/Lungs: Air entry diminished in bilateral lung bases. No crepitation/rhonchi Cardiovascular: Regular rate, Regular Rhythm, Normal S1, Normal S2, No M/G/R Abdomen: Bowel Sounds Present, Soft, Non Tender, Non-Distended : No dysuria. No renal angle tenderness. No suprapubic tenderness. Extremities: No edema, Capillary Refill Less than 3 Seconds Skin: 1 x 0.75 ulcer on the lateral aspect of the right foot/fifth toe with surrounding erythema and cellulitis extending to the foot, foul-smelling status post surgery. Musculoskeletal: No Tenderness to Palpation of Joints or Extremities. Had left fifth ray amputation. Neurological: Cranial nerves II-XII grossly intact, DTR 2+/4. No acute focal neurological deficit. Psych/Mental Status: Flat affect. Assessment & Plan Assessment/Plan (1) Osteomyelitis of right foot: (2) Peripheral vascular occlusive disease: (3) Type 2 diabetes mellitus: (4) Ischemic cardiomyopathy: (5) Essential (primary) hypertension: (6) H/O coronary artery bypass surgery: (7) Chronic renal failure, stage 4 (severe): (8) Chronic HFrEF (heart failure with reduced ejection fraction): PLAN: Plan This is a 78-year-old male was admitted for nonhealing wound on the right foot for about 3 months being followed by Dr. Alva. #R foot diabetic foot wound w/ cellulitis and concern for osteomyelitis: Patient is being on [facility] floor. Has nonhealing wound for at least 3 months. Was a started on doxycycline and Levaquin day before admission but patient vomited twice. Patient also had Registry going up to the right lower leg. IV antibiotics vancomycin and Zosyn. Patient has significant leukocytosis, 18K increased to 20.1 thousand. Afebrile. CRP 165 with ESR of 72, repeat CRP and ESR are elevated. CRP 174 and ESR 64. -X-ray in ED with dorsal soft tissue swelling and ulcer overlying the distal portion of the fifth metatarsal. Calcaneal Spurs. Woodworking Machine Feeder is consulted. Vascular surgery consulted. Wound care nurse consulted. Blood cultures x 2 sent. IV broad-spectrum antibiotics. PT and OT. Plan for surgery today 12/08: Patient had partial fifth ray amputation of right foot on 12/07, partial fourth metatarsal amputation, incision of bone cortex and wide debridement of necrotic tissue in right foot. Skin flap right foot. Continue IV antibiotics. Vancomycin dosing as per pharmacist patient has CKD stage IV. Wound culture shows mixed gram-positive organism.Consult ID. #CKD IV -Patient takes 60 of Lasix daily, creatinine seems to be up from baseline though patient appears euvolemic -Holding lasix, pt given IVF in ED, will decrease rate given heart failure. Improvement in creatinine. -Urine osmolarity 254, sodium 58, creatinine 30.6 potassium 19 chloride 55 urea nitrogen 290. -Family Protection Specialist consulted. -Renal diet 12/08: Creatinine went to 3.0. Random vancomycin tomorrow AM. #HFrEF, chronic -Last echo 04/2022 with segmental systolic dysfunction EF of 40%. Holding Lasix as mentioned above. -Daily weights, I's and O's -Remains on beta-hernán #Type 2 diabetes mellitus with neuropathy -Glucose checks and sliding scale insulin decrease long acting insulin d/t npo -cont neurontin A1c 7.9%. Glucose 109 in BMP. #GERD -Continue PPI #memory difficulty and Depression -Continue Lexapro - reports progressively worsening memory -Supportive care -Melatonin qhs -Continue trazodone #CAD -s/p CABG 2013 -patient is on aspirin, Plavix, statin, beta-hernán #DVT ppx: SCDs Charges/Coding Visit Charges Inpatient E&M: 08032 Subs Hosp L2
[2023-12-08] MEDS: Acetaminophen 325 MG Tablet 650 MG PO ×2 (16:27→23:00)
[2023-12-08 16:49] LABS: Bedside Glucose 333 mg/dL (74-106)
[2023-12-08 17:02] VITALS: BP 115/58; PULSE 77; RESP 16; TEMP 36.5; O2SAT 97
[2023-12-08] MEDS: Polyethylene Glycol 3350 17 GM PACKET PO (17:24)
--- NOTE | 2023-12-08 18:47 | PCM.PN.REN ---
Subjective Subjective Following for CKD. Objective Data Objective Data Vital Signs: Vital Signs Temp Pulse Resp BP Pulse Ox O2 Del Method O2 Flow Rate 97.7 F L 77 16 115/58 L 97 Room Air 2 12/08/23 17:02 12/08/23 17:02 12/08/23 17:02 12/08/23 17:02 12/08/23 17:02 12/08/23 17:02 12/07/23 16:39 Oxygen Flow Rate (L/min) 2 Oxygen Delivery Method Room Air Weight: 62 kg Body Mass Index (BMI) 24.2 Intake & Output: Intake and Output for Last 24 Hours 12/06/23 12/07/23 12/08/23 23:59 23:59 23:59 Intake Total 2242.5 / 2242.5 1545.83 / 1545.83 1250 / 1250 Output Total 1600 / 1600 580 / 580 950 / 950 Balance 642.5 / 642.5 965.83 / 965.83 300 / 300 Lab / Micro Data 12/08/23 06:13 12/08/23 06:13 Labs: Laboratory Results - last 24 hr 12/07/23 22:06: POC Glucose 289 H 12/08/23 06:06: POC Glucose 204 H 12/08/23 06:13: WBC 16.0 H, RBC 3.34 L, Hgb 9.5 L, Hct 29.6 L, MCV 88.6, MCH 28.4, MCHC 32.1, RDW Std Deviation 43.5, RDW Coeff of Milad 13.3, Plt Count 322, MPV 10.6, Immature Gran % (Auto) 0.700, Neut % (Auto) 75.3 H, Lymph % (Auto) 12.9 L, [place] % (Auto) 10.5 H, Eos % (Auto) 0.1, Baso % (Auto) 0.5, Absolute Neuts (auto) 12.1 H, Absolute Lymphs (auto) 2.07, Nucleated RBC % 0, Diff Path Review February, Sodium 139, Potassium 3.8, Chloride 110 H, Carbon Dioxide 22.0, Anion Gap 7, BUN 50 H, Creatinine 3.03 H, Estim Creat Clear Calc 15.65, Est GFR (MDRD) Af Amer 26 L, Est GFR (MDRD) Non-Af 21 L, BUN/Creatinine Ratio 16.5, Glucose 217 H, Calcium 9.0, Random Vancomycin 14.0 12/08/23 11:22: POC Glucose 281 H 12/08/23 16:23: POC Glucose 333 H Micro: Microbiology 12/07/23 13:30 Tissue - 5th Toe Gram Stain - Final 12/07/23 13:30 Tissue - 5th Toe Wound Culture - Preliminary Mixed Gram Positive Organisms 12/06/23 11:50 Blood Culture (Wb) - Right Hand Blood Culture - Preliminary No growth in 48 hours. 12/06/23 11:45 Blood Culture (Wb) - Left Wrist Blood Culture - Preliminary No growth in 48 hours. Physical Exam Narrative Alert awake oriented x 3 no obvious distress no pallor no icterus no JVD s1s2 no murmurs lungs clear abdomen soft no organomegaly no edema no cyanosis celestin + Assessment & Plan Assessment/Plan (1) Chronic renal failure, stage 4 (severe): PLAN: Impression/Plan: The patient is a 78-year-old man with past history of type 2 diabetes mellitus, hypertension, PAD, HFrEF, iron deficiency anemia, and hyperlipidemia. The patient presented to hospital with right foot wound. The patient is being treated for right diabetic foot ulcer/cellulitis with concern for osteomyelitis. Nephrology is following for MOISÉS on CKD. Acute kidney injury on chronic kidney disease stage G4. Last known lab is from 2021 and at that time creatinine was 2.2. Serum creatinine has increased from 2.26 mg/dL on 12/05/2023 up to 3.03 mg/dL today. The patient is not oliguric. There was no microalbuminuria on previous estimations. Blood pressure remains on the lower side, likely chronic. Volume tabor, he appears euvolemic. We will continue to hold Lasix. Continue to encourage oral intake. Will recheck renal function again tomorrow. Reviewed old imaging. He had an MRI in 2019 which showed a possible renal tumor. No follow-up scans available. He does not remember having any surgeries on the kidneys. Will try to get records. If normal, we will repeat an ultrasound.
[2023-12-08 20:01] VITALS: BP 119/53; PULSE 79; RESP 16; TEMP 36.7; O2SAT 97
[2023-12-08 20:03] VITALS: O2SAT 97
[2023-12-08] MEDS: Atorvastatin Calcium 80 MG Tablet PO (21:07)
[2023-12-08] MEDS: MELATONIN 10 MG TABLET PO (21:07)
[2023-12-08] MEDS: Senna/Docusate Sodium 1 Tablet 2 TABLET PO (21:08)
[2023-12-08] MEDS: Gabapentin 100 MG Capsule PO (21:12)
[2023-12-08] MEDS: traZODone 50 MG Tablet PO (23:00)
[2023-12-08 23:56] LABS: Bedside Glucose 247 mg/dL (74-106)
[2023-12-09] MEDS: oxyCODONE 5 MG Tablet PO ×2 (02:55→22:57)
[2023-12-09 03:13] VITALS: BP 111/62; PULSE 69; RESP 16; TEMP 36.8; O2SAT 93
[2023-12-09 04:22] VITALS: BMI 24.3
[2023-12-09] MEDS: Insulin Lispro 100 UNIT/ML INSULN.PEN SC ×4 (06:44→21:01)
[2023-12-09 07:08] LABS: Bedside Glucose 216 mg/dL (74-106)
[2023-12-09 07:48] LABS: Absolute Lymphocyte Count 2.18 X10^3/uL (0.83-4.51); Absolute Neutrophil Count 11.9 X10^3/uL (2.0-7.7); Basophil# 0.04 X10^3/uL; Basophil% 0.3 % (0-1); Eosinophil# 0.12 X10^3/uL; Eosinophils% 0.8 % (0-5); Hematocrit 27.3 % (40-54); Hemoglobin 8.9 g/dL (13.0-16.5); Lymphocyte # 2.18 X10^3/ul (0.83-4.51); Lymphocyte % 13.8 % (19-41); Mean Corp Hgb Conc 32.6 g/dL (32-36); Mean Corpuscular Hgb 28.9 pg (27.0-32.0); Mean Corpuscular Volume 88.6 fL (80-94); Mean Platelet Vol. 10.4 fl (6.2-12.0); Monocyte# 1.49 X10^3/uL; Monocyte% 9.4 % (0-10); NRBC Flagged by Analyzer 0 % (0-5); Neutrophil # 11.88 X10^3/uL (2.7-7.7); Neutrophil % 74.9 % (47-70); Platelet Count 284 K/mm3 (150-450); RBC Distribution Width CV 13.7 % (11.6-14.6); RBC Distribution Width SD 44.4 fl (35.1-43.9); Red Blood Count 3.08 M/mm3 (4.6-6.2); White Blood Count 15.8 K/mm3 (4.4-11.0)
[2023-12-09] MEDS: Escitalopram Oxalate 20 MG Tablet PO (08:01)
[2023-12-09] MEDS: Polyethylene Glycol 3350 17 GM PACKET PO (08:01)
[2023-12-09] MEDS: Aspirin 81 MG TAB.CHEW PO (08:01)
[2023-12-09] MEDS: Juven (unflavored) Packet 1 PACKET PO ×2 (08:01→16:54)
[2023-12-09] MEDS: Clopidogrel Bisulfate 75 MG Tablet PO (08:01)
[2023-12-09] MEDS: Carvedilol 12.5 MG Tablet PO ×2 (08:01→20:35)
[2023-12-09] MEDS: Menthol/Lanolin/Calamine/Znox 113 GM Tube 1 APPLIC TOPICAL ×2 (08:02→21:01)
[2023-12-09] MEDS: Pantoprazole Sodium 40 MG Tablet PO (08:02)
[2023-12-09] MEDS: Insulin Glargine-YFGN 100 UNIT/ML Pen 7 UNIT SC ×2 (08:02→21:01)
[2023-12-09] MEDS: Senna/Docusate Sodium 1 Tablet 2 TABLET PO (08:05)
[2023-12-09 08:12] LABS: Anion Gap 5 (5-15); BUN 71 mg/dL (7-18); Calcium,Total 8.7 mg/dL (8.5-10.1); Chloride 108 mmol/L (98-107); Creatinine, Serum 3.09 mg/dL (0.70-1.30); EST Glomerular Filtration Rate 21 mL/min (>60); Est Glom Filt Rate - Afr Amer 25 mL/min (>60); Estimated Creatinine Clearance 15.35 ml/min; Glucose 212 mg/dL (74-106); Potassium 3.9 mmol/L (3.5-5.1); Sodium Level 137 mmol/L (136-145)
[2023-12-09 08:27] LABS: Vancomycin, Random Level 22.5 ug/mL (0.0-15.0)
[2023-12-09 08:30] VITALS: BP 111/86; PULSE 74; RESP 16; TEMP 36.7; O2SAT 96
[2023-12-09] MEDS: Piperacil/Tazobactam 3.375 GM in 0.9% Normal Saline (50mL MB+) 50 ML IV ×2 (09:55→21:00)
--- NOTE | 2023-12-09 11:05 | PCM.RX.CS ---
Consult Antibiotic Management Pharmacy has been consulted to manage selected antibiotic: Vancomycin Type of Intervention Type of Consult: Follow-up Suspected Infection Suspected Infection: Skin/Soft tissue and Osteomyelitis Prior Doses of Antibiotics Prior Doses of Antibiotics Received/Current Regimen: Last dose was 1 x order for 1gm on 12.08.23 @0818. Labs Labs: Sodium 137 mmol/L (136-145) 12/09/23 07:40 Potassium 3.9 mmol/L (3.5-5.1) 12/09/23 07:40 Chloride 108 mmol/L (98-107) H 12/09/23 07:40 Carbon Dioxide 24.0 mmol/L (21.0-32.0) 12/09/23 07:40 Anion Gap 5 (5-15) 12/09/23 07:40 BUN 71 mg/dL (7-18) H 12/09/23 07:40 Creatinine 3.09 mg/dL (0.70-1.30) H 12/09/23 07:40 Est GFR (MDRD) Af Amer 25 mL/min (>60) L 12/09/23 07:40 Est GFR (MDRD) Non-Af 21 mL/min (>60) L 12/09/23 07:40 BUN/Creatinine Ratio 23.0 RATIO (10-20) H 12/09/23 07:40 Glucose 212 mg/dL (74-106) H 12/09/23 07:40 Random Vancomycin 22.5 ug/mL (0.0-15.0) H 12/09/23 07:40 Microbiology Microbiology: Microbiology 12/07/23 13:30 Tissue - 5th Toe Gram Stain - Final 12/07/23 13:30 Tissue - 5th Toe Wound Culture - Preliminary Mixed Gram Positive Organisms 12/07/23 13:30 Tissue - 5th Toe Anaerobic Culture - Preliminary Checking for anaerobes, further studies to follow. 12/06/23 11:50 Blood Culture (Wb) - Right Hand Blood Culture - Preliminary No growth in 48 hours. 12/06/23 11:45 Blood Culture (Wb) - Left Wrist Blood Culture - Preliminary No growth in 48 hours. Dosing Weight Weight used for dosin.6 kg Estimated Creatinine Clearance Estimated Creatinine Clearance: 15ml/min Goal Trough Goal Trough: 15-20 mcg/mL Pharmacy Plan for Drug Dosing Pharmacy Plan for Drug Dosing: Random level today elevated at 22.5. This was ~23.5 hrs post dose. Have ordered another random level for tomorrow AM. Pharmacy Service will continue to monitor and adjust dosing as required. Follow-Up Labs Follow-Up Labs: Trough: Other (random level 2.26.24 @0600)
[2023-12-09] MEDS: Ferrous Sulfate 325 MG Tablet PO (11:19)
[2023-12-09 11:49] LABS: Bedside Glucose 226 mg/dL (74-106)
[2023-12-09 11:51] VITALS: BP 121/83; PULSE 74; RESP 16; TEMP 36.4; O2SAT 92
--- NOTE | 2023-12-09 12:28 | PCM.PN.HOSP ---
Reason for Visit Reason for Visit: Diagnoses Type 2 diabetes mellitus with diabetic polyneuropathy (12/06/23) Type 2 diabetes mellitus with foot ulcer (12/06/23) Type 2 diabetes mellitus without complications (12/06/23) Essential (primary) hypertension (12/06/23) Ischemic cardiomyopathy (12/06/23) Chronic systolic (congestive) heart failure (12/06/23) Peripheral vascular disease, unspecified (12/06/23) Cellulitis of right lower limb (12/06/23) Non-pressure chronic ulcer of other part of unspecified foot with unspecified severity (12/06/23) Non-pressure chronic ulcer of other part of right foot with necrosis of bone (12/06/23) Osteomyelitis, unspecified (12/06/23) Chronic kidney disease, stage 4 (severe) (12/06/23) Presence of aortocoronary bypass graft (12/06/23) Objective Data Objective Data Vital Signs: Vital Signs Temp Pulse Resp BP Pulse Ox O2 Del Method O2 Flow Rate 97.6 F L 74 16 121/83 H 92 Room Air 2 12/09/23 11:51 12/09/23 11:51 12/09/23 11:51 12/09/23 11:51 12/09/23 11:51 12/09/23 11:51 12/07/23 16:39 Oxygen Flow Rate (L/min) 2 Oxygen Delivery Method Room Air Weight: 137 lb 2.04 oz Body Mass Index (BMI) 24.3 Intake & Output: Intake and Output for Last 24 Hours 12/07/23 12/08/23 12/09/23 23:59 23:59 23:59 Intake Total 1545.83 / 1545.83 1250 / 1550 1100 / 1100 Output Total 580 / 580 950 / 950 600 / 600 Balance 965.83 / 965.83 300 / 600 500 / 500 Lab / Micro Data 12/09/23 07:40 12/09/23 07:40 Labs: Laboratory Results - last 24 hr 12/08/23 16:23: POC Glucose 333 H 12/08/23 21:15: POC Glucose 247 H 12/09/23 06:43: POC Glucose 216 H 12/09/23 07:40: WBC 15.8 H, RBC 3.08 L, Hgb 8.9 L, Hct 27.3 L, MCV 88.6, MCH 28.9, MCHC 32.6, RDW Std Deviation 44.4 H, RDW Coeff of Miald 13.7, Plt Count 284, MPV 10.4, Immature Gran % (Auto) 0.800, Neut % (Auto) 74.9 H, Lymph % (Auto) 13.8 L, [place] % (Auto) 9.4, Eos % (Auto) 0.8, Baso % (Auto) 0.3, Absolute Neuts (auto) 11.9 H, Absolute Lymphs (auto) 2.18, Nucleated RBC % 0, Sodium 137, Potassium 3.9, Chloride 108 H, Carbon Dioxide 24.0, Anion Gap 5, BUN 71 H, Creatinine 3.09 H, Estim Creat Clear Calc 15.35, Est GFR (MDRD) Af Amer 25 L, Est GFR (MDRD) Non-Af 21 L, BUN/Creatinine Ratio 23.0 H, Glucose 212 H, Calcium 8.7, Random Vancomycin 22.5 H 12/09/23 11:15: POC Glucose 226 H Micro: Microbiology 12/07/23 13:30 Tissue - 5th Toe Gram Stain - Final 12/07/23 13:30 Tissue - 5th Toe Wound Culture - Preliminary Gram negative stevo GPC Poss Enterococcus sp Gram positive stevo 12/07/23 13:30 Tissue - 5th Toe Anaerobic Culture - Preliminary Checking for anaerobes, further studies to follow. 12/06/23 11:50 Blood Culture (Wb) - Right Hand Blood Culture - Preliminary No growth in 48 hours. 12/06/23 11:45 Blood Culture (Wb) - Left Wrist Blood Culture - Preliminary No growth in 48 hours. Physical Exam Narrative Seen and examined. Patient had surgery. Postop day 2. Had bowel movement in the morning. Physical exam: General: Alert, Oriented x3, Cooperative HEENT: Atraumatic, PERRLA, EOMI, Normocephalic Oral: Oral mucosa moist. No Gingival or Mucosal Lesions/ Ulcerations Neck: Supple, No JVD, Negative Carotid Bruits Chest wall/Lungs: Air entry diminished in bilateral lung bases. No crepitation/rhonchi Cardiovascular: Regular rate, Regular Rhythm, Normal S1, Normal S2, No M/G/R Abdomen: Bowel Sounds Present, Soft, Non Tender, Non-Distended : No dysuria. No renal angle tenderness. No suprapubic tenderness. Extremities: No edema, Capillary Refill Less than 3 Seconds Skin: 1 x 0.75 ulcer on the lateral aspect of the right foot/fifth toe with surrounding erythema and cellulitis extending to the foot, foul-smelling status post surgery. Musculoskeletal: No Tenderness to Palpation of Joints or Extremities.Can wiggle his toes. Had left fifth ray amputation. Neurological: Cranial nerves II-XII grossly intact, DTR 2+/4. No acute focal neurological deficit. Psych/Mental Status: Flat affect. Assessment & Plan Assessment/Plan (1) Osteomyelitis of right foot: (2) Peripheral vascular occlusive disease: (3) Type 2 diabetes mellitus: (4) Ischemic cardiomyopathy: (5) Essential (primary) hypertension: (6) H/O coronary artery bypass surgery: (7) Chronic renal failure, stage 4 (severe): (8) Chronic HFrEF (heart failure with reduced ejection fraction): PLAN: Plan This is a 78-year-old male was admitted for nonhealing wound on the right foot for about 3 months being followed by Dr. Alva. #R foot diabetic foot wound w/ cellulitis and concern for osteomyelitis: [facility]. Has nonhealing wound for at least 3 months. Was a started on doxycycline and Levaquin day before admission but patient vomited twice. Patient also had Registry going up to the right lower leg. IV antibiotics vancomycin and Zosyn. Patient has significant leukocytosis, 18K increased to 20.1 thousand. Afebrile. CRP 165 with ESR of 72, repeat CRP and ESR are elevated. CRP 174 and ESR 64. -X-ray in ED with dorsal soft tissue swelling and ulcer overlying the distal portion of the fifth metatarsal. Calcaneal Spurs. Assistant Corporation Counsel is consulted. Vascular surgery consulted. Wound care nurse consulted. Blood cultures x 2 sent. IV broad-spectrum antibiotics. PT and OT. Plan for surgery today 12/08: Patient had partial fifth ray amputation of right foot on 12/07, partial fourth metatarsal amputation, incision of bone cortex and wide debridement of necrotic tissue in right foot. Skin flap right foot. Continue IV antibiotics. Vancomycin dosing as per pharmacist patient has CKD stage IV. Wound culture shows mixed gram-positive organism.Consult ID. 12/09: Patient is doing well. Cultures pending. ID consult tomorrow AM. #CKD IV -Patient takes 60 of Lasix daily, creatinine seems to be up from baseline though patient appears euvolemic -Holding lasix, pt given IVF in ED, will decrease rate given heart failure. Improvement in creatinine. -Urine osmolarity 254, sodium 58, creatinine 30.6 potassium 19 chloride 55 urea nitrogen 290. -Dynamite Packing Machine Operator consulted. -Renal diet 12/08: Creatinine went to 3.0. Random vancomycin tomorrow AM. 12/09: BUNs/creatinine 71/3.0. Random Vanco level 22. #HFrEF, chronic -Last echo 04/2022 with segmental systolic dysfunction EF of 40%. Holding Lasix as mentioned above. -Daily weights, I's and O's -Remains on beta-hernán #Type 2 diabetes mellitus with neuropathy -Glucose checks and sliding scale insulin decrease long acting insulin d/t npo -cont neurontin A1c 7.9%. Glucose 109 in BMP. #GERD -Continue PPI #memory difficulty and Depression -Continue Lexapro - reports progressively worsening memory -Supportive care -Melatonin qhs -Continue trazodone #CAD -s/p CABG 2013 -patient is on aspirin, Plavix, statin, beta-hernán #DVT ppx: SCDs Charges/Coding Visit Charges Inpatient E&M: 83558 Subs Hosp L2
[2023-12-09] MEDS: Acetaminophen 325 MG Tablet 650 MG PO ×2 (14:03→20:33)
[2023-12-09 15:43] VITALS: BP 110/43; PULSE 75; RESP 16; TEMP 36.5; O2SAT 93
[2023-12-09 16:19] LABS: Bedside Glucose 274 mg/dL (74-106)
--- NOTE | 2023-12-09 17:17 | PCM.PN.REN ---
Objective Data Objective Data Vital Signs: Vital Signs Temp Pulse Resp BP Pulse Ox O2 Del Method O2 Flow Rate 97.7 F L 75 16 110/43 L 93 Room Air 2 12/09/23 15:43 12/09/23 15:43 12/09/23 15:43 12/09/23 15:43 12/09/23 15:43 12/09/23 15:43 12/07/23 16:39 Oxygen Flow Rate (L/min) 2 Oxygen Delivery Method Room Air Weight: 62.2 kg Body Mass Index (BMI) 24.3 Intake & Output: Intake and Output for Last 24 Hours 12/07/23 12/08/23 12/09/23 23:59 23:59 23:59 Intake Total 1545.83 / 1545.83 1250 / 1550 1150 / 1150 Output Total 580 / 580 950 / 950 600 / 600 Balance 965.83 / 965.83 300 / 600 550 / 550 Lab / Micro Data 12/09/23 07:40 12/09/23 07:40 Labs: Laboratory Results - last 24 hr 12/08/23 21:15: POC Glucose 247 H 12/09/23 06:43: POC Glucose 216 H 12/09/23 07:40: WBC 15.8 H, RBC 3.08 L, Hgb 8.9 L, Hct 27.3 L, MCV 88.6, MCH 28.9, MCHC 32.6, RDW Std Deviation 44.4 H, RDW Coeff of Milad 13.7, Plt Count 284, MPV 10.4, Immature Gran % (Auto) 0.800, Neut % (Auto) 74.9 H, Lymph % (Auto) 13.8 L, [place] % (Auto) 9.4, Eos % (Auto) 0.8, Baso % (Auto) 0.3, Absolute Neuts (auto) 11.9 H, Absolute Lymphs (auto) 2.18, Nucleated RBC % 0, Sodium 137, Potassium 3.9, Chloride 108 H, Carbon Dioxide 24.0, Anion Gap 5, BUN 71 H, Creatinine 3.09 H, Estim Creat Clear Calc 15.35, Est GFR (MDRD) Af Amer 25 L, Est GFR (MDRD) Non-Af 21 L, BUN/Creatinine Ratio 23.0 H, Glucose 212 H, Calcium 8.7, Random Vancomycin 22.5 H 12/09/23 11:15: POC Glucose 226 H 12/09/23 15:37: POC Glucose 274 H Micro: Microbiology 12/07/23 13:30 Tissue - 5th Toe Gram Stain - Final 12/07/23 13:30 Tissue - 5th Toe Wound Culture - Preliminary Gram negative stevo GPC Poss Enterococcus sp Gram positive stevo 12/07/23 13:30 Tissue - 5th Toe Anaerobic Culture - Preliminary Checking for anaerobes, further studies to follow. 12/06/23 11:50 Blood Culture (Wb) - Right Hand Blood Culture - Preliminary No growth in 48 hours. 12/06/23 11:45 Blood Culture (Wb) - Left Wrist Blood Culture - Preliminary No growth in 48 hours. Physical Exam Narrative Alert awake oriented x 3 no obvious distress no pallor no icterus no JVD s1s2 no murmurs lungs clear abdomen soft no organomegaly no edema no cyanosis celestin + Assessment & Plan Assessment/Plan (1) Chronic renal failure, stage 4 (severe): PLAN: Impression/Plan: The patient is a 78-year-old man with past history of type 2 diabetes mellitus, hypertension, PAD, HFrEF, iron deficiency anemia, and hyperlipidemia. The patient presented to hospital with right foot wound. The patient is being treated for right diabetic foot ulcer/cellulitis with concern for osteomyelitis. Nephrology is following for MOISÉS on CKD. Acute kidney injury on chronic kidney disease stage G4. Last known lab is from 2021 and at that time creatinine was 2.20 mg/dL. Serum creatinine has increased from 2.26 mg/dL on 12/05/2023 up to 3.03 mg/dL on 12/08/2023. Creatinine is about the same in the last 24-hour at 3.09 mg/dL today (12/09/2023). The patient is not oliguric. There was no microalbuminuria on previous estimations. Blood pressure remains on the lower side, likely chronic. Volume tabor, he appears euvolemic. We will continue to hold Lasix particularly since serum creatinine has increased in the past 48 hours. He also does not appear to be volume overloaded. Continue to encourage oral intake. Will recheck renal function again tomorrow. If serum creatinine increases further, we will recheck urine indices, complements, and urine protein to creatinine ratio. Reviewed old imaging. He had an MRI in 2019 which showed a possible renal tumor. No follow-up scans available. He does not remember having any surgeries on the kidneys. Will try to get records. If normal, we will repeat an ultrasound.
[2023-12-09] MEDS: MELATONIN 10 MG TABLET PO (20:33)
[2023-12-09] MEDS: Gabapentin 100 MG Capsule PO (20:33)
[2023-12-09] MEDS: traZODone 50 MG Tablet PO (20:33)
[2023-12-09] MEDS: Atorvastatin Calcium 80 MG Tablet PO (20:33)
[2023-12-09] MEDS: 0.9% Saline Lock 10 ML Syringe IV (20:37)
[2023-12-09 20:48] VITALS: BP 144/79; PULSE 90; RESP 18; TEMP 37.1; O2SAT 94
[2023-12-10 02:12] LABS: Bedside Glucose 171 mg/dL (74-106)
[2023-12-10 05:35] VITALS: BMI 24.3
[2023-12-10 05:52] VITALS: BP 131/61; PULSE 75; RESP 16; TEMP 36.7; O2SAT 94
[2023-12-10] MEDS: Insulin Lispro 100 UNIT/ML INSULN.PEN SC ×4 (05:54→20:27)
[2023-12-10 06:29] LABS: Absolute Neutrophil Count 12.8 X10^3/uL (2.0-7.7); Basophil# 0.06 X10^3/uL; Basophil% 0.4 % (0-1); Eosinophil# 0.24 X10^3/uL; Eosinophils% 1.4 % (0-5); Hematocrit 29.5 % (40-54); Hemoglobin 9.4 g/dL (13.0-16.5); Lymphocyte % 11.4 % (19-41); Mean Corp Hgb Conc 31.9 g/dL (32-36); Mean Corpuscular Hgb 27.9 pg (27.0-32.0); Mean Corpuscular Volume 87.5 fL (80-94); Mean Platelet Vol. 10.6 fl (6.2-12.0); Monocyte# 1.51 X10^3/uL; Monocyte% 9.1 % (0-10); NRBC Flagged by Analyzer 0 % (0-5); Neutrophil % 76.7 % (47-70); POSITIVE DIFFERENTIAL YES; Platelet Count 324 K/mm3 (150-450); RBC Distribution Width CV 13.8 % (11.6-14.6); RBC Distribution Width SD 44.1 fl (35.1-43.9); Red Blood Count 3.37 M/mm3 (4.6-6.2); White Blood Count 16.7 K/mm3 (4.4-11.0)
[2023-12-10 06:40] LABS: Differential Indicated SCAN CRITERIA MET
[2023-12-10] MEDS: Vancomycin Trough/Random Due 1 LAB MC (06:54)
[2023-12-10 07:04] LABS: Bedside Glucose 151 mg/dL (74-106)
[2023-12-10 07:09] LABS: Differential Comment SCANNED
[2023-12-10 07:21] LABS: Anion Gap 4 (5-15); BUN 76 mg/dL (7-18); BUN/Creat Ratio 25.5 RATIO (10-20); Calcium,Total 9.1 mg/dL (8.5-10.1); Chloride 110 mmol/L (98-107); Creatinine, Serum 2.98 mg/dL (0.70-1.30); EST Glomerular Filtration Rate 22 mL/min (>60); Est Glom Filt Rate - Afr Amer 26 mL/min (>60); Estimated Creatinine Clearance 15.91 ml/min; Glucose 173 mg/dL (74-106); Potassium 4.1 mmol/L (3.5-5.1); Sodium Level 138 mmol/L (136-145)
--- NOTE | 2023-12-10 07:47 | PCM.RX.CS ---
Consult Antibiotic Management Pharmacy has been consulted to manage selected antibiotic: Vancomycin Type of Intervention Type of Consult: Follow-up Labs Labs: Sodium 138 mmol/L (136-145) 12/10/23 06:10 Potassium 4.1 mmol/L (3.5-5.1) 12/10/23 06:10 Chloride 110 mmol/L (98-107) H 12/10/23 06:10 Carbon Dioxide 24.0 mmol/L (21.0-32.0) 12/10/23 06:10 Anion Gap 4 (5-15) L 12/10/23 06:10 BUN 76 mg/dL (7-18) H 12/10/23 06:10 Creatinine 2.98 mg/dL (0.70-1.30) H 12/10/23 06:10 Est GFR (MDRD) Af Amer 26 mL/min (>60) L 12/10/23 06:10 Est GFR (MDRD) Non-Af 22 mL/min (>60) L 12/10/23 06:10 BUN/Creatinine Ratio 25.5 RATIO (10-20) H 12/10/23 06:10 Glucose 173 mg/dL (74-106) H 12/10/23 06:10 Random Vancomycin 18.0 ug/mL (0.0-15.0) H 12/10/23 06:10 Microbiology Microbiology: Microbiology 12/07/23 13:30 Tissue - 5th Toe Gram Stain - Final 12/07/23 13:30 Tissue - 5th Toe Wound Culture - Preliminary Gram negative stevo GPC Poss Enterococcus sp Gram positive stevo 12/07/23 13:30 Tissue - 5th Toe Anaerobic Culture - Preliminary Checking for anaerobes, further studies to follow. 12/06/23 11:50 Blood Culture (Wb) - Right Hand Blood Culture - Preliminary No growth in 48 hours. 12/06/23 11:45 Blood Culture (Wb) - Left Wrist Blood Culture - Preliminary No growth in 48 hours. Goal Trough Goal Trough: 15-20 mcg/mL Pharmacy Plan for Drug Dosing Pharmacy Plan for Drug Dosing: VANCOMYCIN LEVEL RECEIVED Current Vancomycin Dose: Dose based on levels - last dose was 1000mg IV x1 12/08 @0818 Number of Doses Received: 2 Vancomycin Level: 18 Hours Since Last Dose: ~46hrs Renal Function: 2.98 Renal Function Trend: SCr slightly improved, still remains elevated Lab/Micro: Wcx growing GPC poss enterococcus, GNR Vancomycin Plan/Comments: Patient had a random trough drawn which resulted in a value of 18 (goal 15-20). Patient still with elevated SCr. based on weight based dosing pt should get 1000mg today, but when 1000mg IV was given, trough was >20. In light of this, will give a reduced dose of 500mg IV x1 today and recheck a trough in 48hrs to assess dosing at that time. Pending Level: *RANDOM* level 11/16/23 with AM labs Pharmacy Service will continue to monitor and adjust dosing as required.
--- NOTE | 2023-12-10 07:56 | PCM.PROGNOTE ---
Subjective Subjective Patient seen and evaluated this a.m. resting in bed with feet elevated. Patient states he feels good and claims he is staying off of his foot, nursing states he has been walking on foot. Denies pain to the right foot. Denies constitutional symptoms. Denies further complaints. Objective Data Objective Data Vital Signs: Vital Signs Temp Pulse Resp BP Pulse Ox O2 Del Method O2 Flow Rate 98.0 F 75 16 131/61 H 94 Room Air 2 12/10/23 05:52 12/10/23 05:52 12/10/23 05:52 12/10/23 05:52 12/10/23 05:52 12/10/23 05:52 12/07/23 16:39 Oxygen Flow Rate (L/min) 2 Oxygen Delivery Method Room Air Weight: 62.3 kg Body Mass Index (BMI) 24.3 Intake & Output: Intake and Output for Last 24 Hours 12/08/23 12/09/23 12/10/23 23:59 23:59 23:59 Intake Total 1250 / 1550 1550 / 1550 450 / 450 Output Total 950 / 950 1150 / 1150 Balance 300 / 600 400 / 400 450 / 450 Lab / Micro Data 12/10/23 06:10 12/10/23 06:10 Labs: Laboratory Results - last 24 hr 12/09/23 07:40: Sodium 137, Potassium 3.9, Chloride 108 H, Carbon Dioxide 24.0, Anion Gap 5, BUN 71 H, Creatinine 3.09 H, Estim Creat Clear Calc 15.35, Est GFR (MDRD) Af Amer 25 L, Est GFR (MDRD) Non-Af 21 L, BUN/Creatinine Ratio 23.0 H, Glucose 212 H, Calcium 8.7, Random Vancomycin 22.5 H 12/09/23 11:15: POC Glucose 226 H 12/09/23 15:37: POC Glucose 274 H 12/09/23 20:45: POC Glucose 171 H 12/10/23 05:49: POC Glucose 151 H 12/10/23 06:10: WBC 16.7 H, RBC 3.37 L, Hgb 9.4 L, Hct 29.5 L, MCV 87.5, MCH 27.9, MCHC 31.9 L, RDW Std Deviation 44.1 H, RDW Coeff of Milad 13.8, Plt Count 324, MPV 10.6, Immature Gran % (Auto) 1.000 H, Neut % (Auto) 76.7 H, Lymph % (Auto) 11.4 L, [place] % (Auto) 9.1, Eos % (Auto) 1.4, Baso % (Auto) 0.4, Absolute Neuts (auto) 12.8 H, Absolute Lymphs (auto) 1.90, Nucleated RBC % 0, Differential Comment SCANNED, Diff Path Review February, Sodium 138, Potassium 4.1, Chloride 110 H, Carbon Dioxide 24.0, Anion Gap 4 L, BUN 76 H, Creatinine 2.98 H, Estim Creat Clear Calc 15.91, Est GFR (MDRD) Af Amer 26 L, Est GFR (MDRD) Non-Af 22 L, BUN/Creatinine Ratio 25.5 H, Glucose 173 H, Calcium 9.1, Random Vancomycin 18.0 H Micro: Microbiology 12/07/23 13:30 Tissue - 5th Toe Gram Stain - Final 12/07/23 13:30 Tissue - 5th Toe Wound Culture - Preliminary Gram negative stevo GPC Poss Enterococcus sp Gram positive stevo 12/07/23 13:30 Tissue - 5th Toe Anaerobic Culture - Preliminary Checking for anaerobes, further studies to follow. 12/06/23 11:50 Blood Culture (Wb) - Right Hand Blood Culture - Preliminary No growth in 48 hours. 12/06/23 11:45 Blood Culture (Wb) - Left Wrist Blood Culture - Preliminary No growth in 48 hours. Physical Exam Const alert, oriented x3 and no apparent distress General Appearance: cooperative HEENT normocephalic Eyes Eyes Narrative: Wears glasses General Eye: normal appearance of both eyes Neck General: normal visual inspection Lymph Lymphatic: no lymphadenopathy noted and no lymphedema noted Resp normal respiratory effort Cardio regular rate and regular rhythm Extremity no calf tenderness Extremity Narrative: DP and PT pulses nonpalpable bilateral. Capillary fill time is roughly 5 seconds digits. Normal temperature gradient. Hair growth is absent to digits/foot with trophic changes noted. Dermatological: Skin demonstrates trophic changes consistent with microvascular disease. Second digit of the left foot and dorsal hallux of the left foot demonstrate digital excoriation with eschar covering, no signs of infection. Sutures intact at amputation stump s/p partial fifth ray and fourth metatarsal head resection with skin flap closure. Skin flap remains healthy and viable with good coloration. Erythema is decreasing. Neurological: Decreased protective sensation noted to both feet secondary to diabetic peripheral polyneuropathy. Musculoskeletal: Previous partial fifth ray amputation of the left foot. Muscle strength 5 of 5 age-appropriate. No pain to palpation of the bones of the foot or ankle. Decreased range of motion of the ankle joint in dorsiflexion with the knee extended without pain or crepitus. Decreased range of motion of the first metatarsophalangeal joint without pain or crepitus. Skin no rashes or lesions noted, skin turgor normal and no jaundice Neuro oriented x3 and moves all extremities Assessment & Plan Assessment/Plan (1) Osteomyelitis of right foot: (2) Non-pressure chronic ulcer of other part of right foot with necrosis of bone: (3) Diabetes mellitus with diabetic polyneuropathy: (4) PVD (peripheral vascular disease) with claudication: (5) Type 2 diabetes mellitus with foot ulcer: PLAN: Plan Patient seen and evaluated He is s/p partial fifth ray amputation and fourth metatarsal head resection, incision of bone cortex, I&D with wide debridement of necrotic tissue, and skin flap right foot. DOS 12/07/2023. POD #3 Sutures intact at amputation stump s/p partial fifth ray and fourth metatarsal head resection with skin flap closure. Skin flap remains healthy and viable with good coloration. Erythema is decreasing. Overall foot is improving. Dressings changed consisting of Betadine soaked Adaptic 4 x 4 gauze Kerlix, and 4 inch Sean wrap rolled onto the right foot. WBC currently 16.7. Currently on IV Vanco/Zosyn Blood cultures obtained, no growth Surgical cultures: Tissue: Gram-negative stevo, gram-positive cocci, gram-positive stevo; Bone: Strep angiosis, anaerobic cocci LEAS to be obtained, awaiting results. Radiographs obtained of the right foot 12/06/2023 demonstrating soft tissue ulceration overlying distal portion of the fifth metatarsal with dorsal soft tissue swelling and vascular calcifications. Medicine currently following for medical management, they are appreciated. Vascular surgery consulted for intervention early this week Infectious disease consulted for antibiotic management. Wound nurse assisting in dressing changes Patient to be nonweightbearing to the right foot with assistance of a walker. Nursing may reinforce dressings for any strikethrough. Patient may benefit from SNF due to noncompliance of ambulating on amputation stump and assistance in care postsurgical status. Please do not hesitate to call with any questions or concerns. Jr. Satnam LozadaP.M. [facility] [phone]
[2023-12-10 08:01] VITALS: BP 135/65; PULSE 78; RESP 16; TEMP 37.8; O2SAT 93
[2023-12-10] MEDS: Juven (unflavored) Packet 1 PACKET PO ×2 (08:10→17:18)
[2023-12-10] MEDS: Aspirin 81 MG TAB.CHEW PO (08:10)
--- NOTE | 2023-12-10 08:37 | WOUNDNOTE ---
wound photo: right foot
--- NOTE | 2023-12-10 08:38 | WOUNDNOTE ---
wound photo: right foot
--- NOTE | 2023-12-10 08:38 | WOUNDNOTE ---
wound photo: left foot
[2023-12-10] MEDS: 0.9% Saline Lock 10 ML Syringe IV (08:50)
[2023-12-10] MEDS: Vancomycin IV 500 MG/100 ML BAG 100 MG IV (08:50)
[2023-12-10] MEDS: Acetaminophen 325 MG Tablet 650 MG PO ×2 (08:52→17:26)
--- NOTE | 2023-12-10 09:56 | CON.PCM.ID_ITS ---
Assessment & Plan Assessment/Plan (1) Diabetes mellitus with diabetic polyneuropathy: (2) Osteomyelitis: PLAN: on vanc/zosyn, taken to OR 12/07/[address] Alva for partial excision R 4th metatarsal and 5th ray. Surg cx pending, so far showing GNR, possible enterococcus, and GPR. Will follow, thank you (3) PVD (peripheral vascular disease) with claudication: HPI Consult Data Date of Consult: 12/10/23 HPI Narrative Reason for Consultation: osteo HPI Narrative: TAM BUSTOS, is a 78 M with h/o DM neuropathy, CKD, presented 12/06 with about 3 months progressive R foot ulcer. Over past week, developed progressive pain, redness, drainage, swelling. Outpt doxy and levaquin ordered but only got a few doses in. Admitted on vanc/zosyn, taken to OR 12/07/[address] Alva for partial excision R 4th metatarsal and 5th ray. Feeling ok, no fever, no n/v/d. Full ROS performed and neg except as noted above. [facility] Medical History Anemia Anemia of chronic renal failure, stage 4 (severe) Anxiety Atherosclerosis of coronary artery bypass graft without angina pectoris Atherosclerosis of kaw artery of lower extremity with ulceration of foot Bilateral pleural effusion Callus of foot Cellulitis of left lower limb Chronic HFrEF (heart failure with reduced ejection fraction) Chronic renal failure, stage 4 (severe) Claudication of both lower extremities Congestive heart failure (CHF) Delayed wound healing Dermatitis of left foot Dermatomycosis of foot Diabetes Diabetes mellitus type 2 in nonobese Diabetes mellitus with neuropathy Diabetic foot ulcer associated with diabetes mellitus due to underlying condition Elevated PSA, between 10 and less than 20 ng/ml Eschar of foot Essential (primary) hypertension GERD (gastroesophageal reflux disease) Hammertoe of left foot HLD (hyperlipidemia) Hypertension Hypokalemia Incarcerated right inguinal hernia Ischemic cardiomyopathy Malnutrition Mass of right breast Non-pressure chronic ulcer of other part of left foot with fat layer exposed Non-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 Osteomyelitis Peripheral vascular disease Peripheral vascular occlusive disease Restless legs Right bundle branch block (RBBB) Secondary pulmonary arterial hypertension Tailor's bunion of left foot Type 2 diabetes mellitus Ulcer of left foot with fat layer exposed 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 Ulcer of left foot with necrosis of muscle Xerosis cutis Home Medications aspirin 81 mg chewable tablet 81 mg PO DAILY@0800 [facility] 09/29/14 [History Last Taken 02/03/21 06:00] pantoprazole 40 mg tablet,delayed release 40 mg PO DAILY acid reflux 30 days #30 tabs 02/07/18 [History Last Taken 02/04/21 06:00] ferrous sulfate 325 mg (65 mg iron) tablet 325 mg PO DAILY@1200 iron supplement 03/19/19 [History Last Taken 05/26/19] trazodone 50 mg tablet 50 mg PO QHS PRN Sleep 09/22/20 [History Last Taken Unknown] gabapentin 100 mg capsule 100 mg PO QHS 12/22/20 [History Last Taken Unknown] escitalopram oxalate 20 mg tablet 20 mg PO DAILY 03/29/22 [History Last Taken Unknown] carvedilol 12.5 mg tablet 12.5 mg PO BID #180 tabs 04/23/23 [Rx Last Taken Unknown] furosemide 20 mg tablet 60 mg (3 x 20 mg) PO DAILY 90 days #270 tabs 04/23/23 [Rx Last Taken Unknown] clopidogrel 75 mg tablet 75 mg PO DAILY #90 tabs 07/23/23 [Rx Last Taken Unknown] insulin glargine 100 unit/mL (3 mL) subcutaneous pen 15 unit subcut BID 12/04/23 [History Last Taken Unknown] insulin lispro 100 unit/mL subcutaneous solution (Humalog U-100 Insulin) 1 sliding scale dose subcut DAILY DIABETES 12/04/23 [History Last Taken Unknown] atorvastatin 80 mg tablet 80 mg PO QHS cholesterol 12/06/23 [History Last Taken Unknown] hydralazine 25 mg tablet 25 mg PO TID PRN anxiety 12/06/23 [History Last Taken Unknown] Allergy/AdvReac Type Severity Reaction Status Date / Time atorvastatin [From Lipitor] AdvReac Mild myalgias Verified 12/06/23 11:14 Family History Brother CAD (coronary artery disease) Hx CABG Surgical History Amputated toe of left foot (01/2021) H/O coronary artery bypass surgery (04/30/14) History of angioplasty of peripheral vessel (01/20/21) History of inguinal hernia repair History of left heart catheterization (LHC) (03/20/19) History of right breast biopsy (03/2021) History of right inguinal hernia repair (03/2018) History of thoracentesis Social History Smoking Status: Never smoker alcohol intake: never substance use type: does not use caffeine: No what type of physical activity do you participate in: none seatbelt use: always do you feel safe at home: Yes Physical Exam Const alert and no apparent distress General Appearance: cooperative HEENT normocephalic and head/scalp atraumatic Eyes PERRL and EOMs intact bilaterally Neck supple and No nodes Resp normal air movement and clear to auscultation bilaterally Cardio regular rate and regular rhythm GI soft to palpation, non-tender and non-distended Extremity General Extremity: edema Skin Skin Narrative: Foot wrapped, reviewed photo Neuro CN's II-XII intact bilaterally Lab / Micro Data Attestation: I reviewed the patient's lab results. 12/10/23 06:10 12/10/23 06:10 Labs: Laboratory Results - last 24 hr 12/09/23 11:15: POC Glucose 226 H 12/09/23 15:37: POC Glucose 274 H 12/09/23 20:45: POC Glucose 171 H 12/10/23 05:49: POC Glucose 151 H 12/10/23 06:10: WBC 16.7 H, RBC 3.37 L, Hgb 9.4 L, Hct 29.5 L, MCV 87.5, MCH 27.9, MCHC 31.9 L, RDW Std Deviation 44.1 H, RDW Coeff of Milad 13.8, Plt Count 324, MPV 10.6, Immature Gran % (Auto) 1.000 H, Neut % (Auto) 76.7 H, Lymph % (Auto) 11.4 L, [place] % (Auto) 9.1, Eos % (Auto) 1.4, Baso % (Auto) 0.4, Absolute Neuts (auto) 12.8 H, Absolute Lymphs (auto) 1.90, Nucleated RBC % 0, Dif ferential Comment SCANNED, Diff Path Review May foll, Sodium 138, Potassium 4.1, Chloride 110 H, Carbon Dioxide 24.0, Anion Gap 4 L, BUN 76 H, Creatinine 2.98 H, Estim Creat Clear Calc 15.91, Est GFR (MDRD) Af Amer 26 L, Est GFR (MDRD) Non-Af 22 L, BUN/Creatinine Ratio 25.5 H, Glucose 173 H, Calcium 9.1, Random Vancomycin 18.0 H Micro: Microbiology 12/07/23 13:30 Tissue - 5th Toe Gram Stain - Final 12/07/23 13:30 Tissue - 5th Toe Wound Culture - Preliminary Gram negative stevo GPC Poss Enterococcus sp Gram positive stevo 12/07/23 13:30 Tissue - 5th Toe Anaerobic Culture - Preliminary Checking for anaerobes, further studies to follow.
[2023-12-10] MEDS: Piperacil/Tazobactam 3.375 GM in 0.9% Normal Saline (50mL MB+) 50 ML IV ×2 (10:07→20:20)
[2023-12-10] MEDS: Menthol/Lanolin/Calamine/Znox 113 GM Tube 1 APPLIC TOPICAL ×2 (10:09→20:14)
[2023-12-10] MEDS: Carvedilol 12.5 MG Tablet PO ×2 (10:10→20:19)
[2023-12-10] MEDS: Insulin Glargine-YFGN 100 UNIT/ML Pen 7 UNIT SC (10:10)
[2023-12-10] MEDS: Escitalopram Oxalate 20 MG Tablet PO (10:11)
[2023-12-10] MEDS: Clopidogrel Bisulfate 75 MG Tablet PO (10:11)
[2023-12-10] MEDS: Pantoprazole Sodium 40 MG Tablet PO (10:11)
[2023-12-10] MEDS: Senna/Docusate Sodium 1 Tablet 2 TABLET PO ×2 (10:12→20:20)
--- NOTE | 2023-12-10 10:29 | CASEMGMT ---
Discharge Planning A list of?SNF providers including quality and resource use data and consistent with the patient's preferred geographic region, medical needs, and insurance network was created in [facility].? This list was provided to the SW. Radha Melara Discharge Planning Asst.
[2023-12-10 11:51] LABS: Bedside Glucose 263 mg/dL (74-106)
--- NOTE | 2023-12-10 11:56 | CHAPLAIN ---
Type of Pastoral Visit _x__ Initial Visit ___ Follow-up Visit ___ On-call Visit ___ General Patient Visit ___ Spiritual Assessment ___ Family Conference ___ Bereavement ___ Rapid Response ___ Code Blue ___ Other (describe below) Pastoral Care Referral From _x__ Patient ___ Family ___ Nurse ___ Physician ___ Bingo Manager ___ Fifth Grade Teacher ___ Other (describe below) Sacrament/Intervention _x__ Active listening ___ Anointing ___ Scientology ___ Bereavement ___ Communion ___ Tanna exploration ___ _x__ Life review ___ Prayer ___ Reconciliation ___ Sacrament of Sick _x__ Supportive presence ___ Wedding ___ Other (describe below) Pastoral Comments patient is welcoming and talks about his work history and being fortunate in life due to life long career in [employer] and not being in hospital over the years; pt states that he feels like things are going well for him and he is feeling okay right now; pt declares no further needs
[2023-12-10] MEDS: Ferrous Sulfate 325 MG Tablet PO (12:05)
--- NOTE | 2023-12-10 12:43 | PN.HOSP_ITS ---
Reason for Visit Reason for Visit: Diagnoses Type 2 diabetes mellitus with diabetic polyneuropathy (12/06/23) Type 2 diabetes mellitus with foot ulcer (12/06/23) Type 2 diabetes mellitus without complications (12/06/23) Essential (primary) hypertension (12/06/23) Ischemic cardiomyopathy (12/06/23) Chronic systolic (congestive) heart failure (12/06/23) Peripheral vascular disease, unspecified (12/06/23) Cellulitis of right lower limb (12/06/23) Non-pressure chronic ulcer of other part of unspecified foot with unspecified severity (12/06/23) Non-pressure chronic ulcer of other part of right foot with necrosis of bone ( 12/06/23) Osteomyelitis, unspecified (12/06/23) Chronic kidney disease, stage 4 (severe) (12/06/23) Presence of aortocoronary bypass graft (12/06/23) Objective Data Objective Data Vital Signs: Vital Signs Temp Pulse Resp BP Pulse Ox O2 Del Method O2 Flow Rate 100.1 F H 78 16 135/65 H 93 Room Air 2 12/10/23 08:01 12/10/23 08:01 12/10/23 08:01 12/10/23 08:01 12/10/23 08:01 12/10/23 08:01 12/07/23 16:39 Oxygen Flow Rate (L/min) 2 Oxygen Delivery Method Room Air Weight: 137 lb 5.568 oz Body Mass Index (BMI) 24.3 Intake & Output: Intake and Output for Last 24 Hours 12/08/23 12/09/23 12/10/23 23:59 23:59 23:59 Intake Total 1250 / 1550 1550 / 1550 450 / 450 Output Total 950 / 950 1150 / 1150 Balance 300 / 600 400 / 400 450 / 450 Lab / Micro Data 12/10/23 06:10 12/10/23 06:10 Labs: Laboratory Results - last 24 hr 12/09/23 15:37: POC Glucose 274 H 12/09/23 20:45: POC Glucose 171 H 12/10/23 05:49: POC Glucose 151 H 12/10/23 06:10: WBC 16.7 H, RBC 3.37 L, Hgb 9.4 L, Hct 29.5 L, MCV 87.5, MCH 27.9, MCHC 31.9 L, RDW Std Deviation 44.1 H, RDW Coeff of Milad 13.8, Plt Count 324, MPV 10.6, Immature Gran % (Auto) 1.000 H, Neut % (Auto) 76.7 H, Lymph % (Auto) 11.4 L, Taylor % (Auto) 9.1, Eos % (Auto) 1.4, Baso % (Auto) 0.4, Absolute Neuts (auto) 12.8 H, Absolute Lymphs (auto) 1.90, Nucleated RBC % 0, Differential Comment SCANNED, Diff Path Review February, Sodium 138, Potassium 4.1, Chloride 110 H, Carbon Dioxide 24.0, Anion Gap 4 L, BUN 76 H, Creatinine 2.98 H, Estim Creat Clear Calc 15.91, Est GFR (MDRD) Af Amer 26 L, Est GFR (MDRD) Non-Af 22 L, BUN/Creatinine Ratio 25.5 H, Glucose 173 H, Calcium 9.1, Random Vancomycin 18.0 H 12/10/23 11:32: POC Glucose 263 H Micro: Microbiology 12/07/23 13:30 Tissue - 5th Toe Gram Stain - Final 12/07/23 13:30 Tissue - 5th Toe Wound Culture - Preliminary Klebsiella pneumoniae sp pneum Enterococcus faecalis Corynebacterium amycolatum GNR Poss Pseudomonas sp 12/07/23 13:30 Tissue - 5th Toe Anaerobic Culture - Preliminary Checking for anaerobes, further studies to follow. 12/06/23 11:50 Blood Culture (Wb) - Right Hand Blood Culture - Preliminary No growth in 48 hours. 12/06/23 11:45 Blood Culture (Wb) - Left Wrist Blood Culture - Preliminary No growth in 48 hours. Physical Exam Narrative Seen and examined. Patient had surgery. Postop day third. Had bowel movement in the morning. Physical exam: General: Alert, Oriented x3, Cooperative HEENT: Atraumatic, PERRLA, EOMI, Normocephalic Oral: Oral mucosa moist. No Gingival or Mucosal Lesions/ Ulcerations Neck: Supple, No JVD, Negative Carotid Bruits Chest wall/Lungs: Air entry diminished in bilateral lung bases. No crepitation/rhonchi Cardiovascular: Regular rate, Regular Rhythm, Normal S1, Normal S2, No M/G/R Abdomen: Bowel Sounds Present, Soft, Non Tender, Non-Distended Stovall catheter, clear urine.: No renal angle tenderness. No suprapubic tenderness. Extremities: No edema, Capillary Refill Less than 3 Seconds Skin: 1 x 0.75 ulcer on the lateral aspect of the right foot/fifth toe with surrounding erythema and cellulitis extending to the foot, foul-smelling status post surgery. Musculoskeletal: No Tenderness to Palpation of Joints or Extremities.Can wiggle his toes. Had left fifth ray amputation. Neurological: Cranial nerves II-XII grossly intact, DTR 2+/4. No acute focal neurological deficit. Psych/Mental Status: Flat affect. Does not remember well. Dementia. Assessment & Plan Assessment/Plan (1) Osteomyelitis of right foot: (2) Peripheral vascular occlusive disease: (3) Type 2 diabetes mellitus: (4) Ischemic cardiomyopathy: (5) Essential (primary) hypertension: (6) H/O coronary artery bypass surgery: (7) Chronic renal failure, stage 4 (severe): (8) Chronic HFrEF (heart failure with reduced ejection fraction): PLAN: Plan This is a 78-year-old male was admitted for nonhealing wound on the right foot for about 3 months being followed by Dr. Alva. #R foot diabetic foot wound w/ cellulitis and concern for osteomyelitis: [facility]. Has nonhealing wound for at least 3 months. Was a started on doxycycline and Levaquin day before admission but patient vomited twice. Patient also had Registry going up to the right lower leg. IV antibiotics vancomycin and Zosyn. Patient has significant leukocytosis, 18K increased to 20.1 thousand. Afebrile. CRP 165 with ESR of 72, repeat CRP and ESR are elevated. CRP 174 and ESR 64. -X-ray in ED with dorsal soft tissue swelling and ulcer overlying the distal portion of the fifth metatarsal. Calcaneal Spurs. Certified Pathology Assistant is consulted. Vascular surgery consulted. Wound care nurse cons ulted. Blood cultures x 2 sent. IV broad-spectrum antibiotics. PT and OT. Plan for surgery today 12/08: Patient had partial fifth ray amputation of right foot on 12/07, partial fourth metatarsal amputation, incision of bone cortex and wide debridement of necrotic tissue in right foot. Skin flap right foot. Continue IV antibiotics. Vancomycin dosing as per pharmacist patient has CKD stage IV. Wound culture shows mixed gram-positive organism.Consult ID. 12/09: Patient is doing well. Cultures pending. ID consult tomorrow AM. 12/10: Patient was evaluated by ID database consultant. On Vanco and Zosyn cultures so far showing GNR, possible Enterococcus and GPR. Full culture pending. #CKD IV -Patient takes 60 of Lasix daily, creatinine seems to be up from baseline though patient appears euvolemic -Holding lasix, pt given IVF in ED, will decrease rate given heart failure. Improvement in creatinine. -Urine osmolarity 254, sodium 58, creatinine 30.6 potassium 19 chloride 55 urea nitrogen 290. -Coding Support Specialist consulted. -Renal diet 12/08: Creatinine went to 3.0. Random vancomycin tomorrow AM. 12/09: BUNs/creatinine 71/3.0. Random Vanco level 22. 12/10: Random vancomycin 18 today. Patient has Stovall catheter. Clear urine. Had bowel movement. Vancomycin was held yesterday. Discontinue Stovall catheter. #HFrEF, chronic -Last echo 04/2022 with segmental systolic dysfunction EF of 40%. Holding Lasix as mentioned above. -Daily weights, I's and O's -Remains on beta-hernán #Type 2 diabetes mellitus with neuropathy -Glucose checks and sliding scale insulin decrease long acting insulin d/t npo -cont neurontin A1c 7.9%. Glucose 109 in BMP. 12/10: Glucose in BMP 173. Accu-Cheks 2062. Lantus dose increased to 10 units twice daily. #GERD -Continue PPI #memory difficulty and Depression -Continue Lexapro - reports progressively worsening memory -Supportive care -Melatonin qhs -Continue trazodone #CAD -s/p CABG 2013 -patient is on aspirin, Plavix, statin, beta-hernán #DVT ppx: SCDs Microbiology Past 72 Hours 12/07/23 13:30 Tissue - 5th Toe Gram Stain - Final 12/07/23 13:30 Tissue - 5th Toe Wound Culture - Preliminary Klebsiella pneumoniae sp pneum Enterococcus faecalis Corynebacterium amycolatum GNR Poss Pseudomonas sp 12/07/23 13:30 Tissue - 5th Toe Anaerobic Culture - Preliminary Checking for anaerobes, further studies to follow. 12/06/23 11:50 Blood Culture (Wb) - Right Hand Blood Culture - Preliminary No growth in 48 hours. 12/06/23 11:45 Blood Culture (Wb) - Left Wrist Blood Culture - Preliminary No growth in 48 hours. Laboratory Results 12/09/23 15:37: POC Glucose 274 H 12/09/23 20:45: POC Glucose 171 H 12/10/23 05:49: POC Glucose 151 H 12/10/23 06:10: WBC 16.7 H, RBC 3.37 L, Hgb 9.4 L, Hct 29.5 L, MCV 87.5, MCH 27.9, MCHC 31.9 L, RDW Std Deviation 44.1 H, RDW Coeff of Milad 13.8, Plt Count 324, MPV 10.6, Immature Gran % (Auto) 1.000 H, Neut % (Auto) 76.7 H, Lymph % (Auto) 11.4 L, Taylor % (Auto) 9.1, Eos % (Auto) 1.4, Baso % (Auto) 0.4, Absolute Neuts (auto) 12.8 H, Absolute Lymphs (auto) 1.90, Nucleated RBC % 0, Differential Comment SCANNED, Diff Path Review February, Sodium 138, Potassium 4.1, Chloride 110 H, Carbon Dioxide 24.0, Anion Gap 4 L, BUN 76 H, Creatinine 2.98 H, Estim Creat Clear Calc 15.91, Est GFR (MDRD) Af Amer 26 L, Est GFR (MDRD) Non-Af 22 L, BUN/Creatinine Ratio 25.5 H, Glucose 173 H, Calcium 9.1, Random Vancomycin 18.0 H 12/10/23 11:32: POC Glucose 263 H Charges/Coding Visit Charges Inpatient E&M: 26379 Subs Hosp L2
--- NOTE | 2023-12-10 12:47 | PCM.PN.REN ---
Subjective Subjective No new events Objective Data Objective Data Vital Signs: Vital Signs Temp Pulse Resp BP Pulse Ox O2 Del Method O2 Flow Rate 100.1 F H 78 16 135/65 H 93 Room Air 2 12/10/23 08:01 12/10/23 08:01 12/10/23 08:01 12/10/23 08:01 12/10/23 08:01 12/10/23 08:01 12/07/23 16:39 Oxygen Flow Rate (L/min) 2 Oxygen Delivery Method Room Air Weight: 62.3 kg Body Mass Index (BMI) 24.3 Intake & Output: Intake and Output for Last 24 Hours 12/08/23 12/09/23 12/10/23 23:59 23:59 23:59 Intake Total 1250 / 1550 1550 / 1550 450 / 450 Output Total 950 / 950 1150 / 1150 Balance 300 / 600 400 / 400 450 / 450 Lab / Micro Data 12/10/23 06:10 12/10/23 06:10 Labs: Laboratory Results - last 24 hr 12/09/23 15:37: POC Glucose 274 H 12/09/23 20:45: POC Glucose 171 H 12/10/23 05:49: POC Glucose 151 H 12/10/23 06:10: WBC 16.7 H, RBC 3.37 L, Hgb 9.4 L, Hct 29.5 L, MCV 87.5, MCH 27.9, MCHC 31.9 L, RDW Std Deviation 44.1 H, RDW Coeff of Milad 13.8, Plt Count 324, MPV 10.6, Immature Gran % (Auto) 1.000 H, Neut % (Auto) 76.7 H, Lymph % (Auto) 11.4 L, [place] % (Auto) 9.1, Eos % (Auto) 1.4, Baso % (Auto) 0.4, Absolute Neuts (auto) 12.8 H, Absolute Lymphs (auto) 1.90, Nucleated RBC % 0, Differential Comment SCANNED, Diff Path Review February, Sodium 138, Potassium 4.1, Chloride 110 H, Carbon Dioxide 24.0, Anion Gap 4 L, BUN 76 H, Creatinine 2.98 H, Estim Creat Clear Calc 15.91, Est GFR (MDRD) Af Amer 26 L, Est GFR (MDRD) Non-Af 22 L, BUN/Creatinine Ratio 25.5 H, Glucose 173 H, Calcium 9.1, Random Vancomycin 18.0 H 12/10/23 11:32: POC Glucose 263 H Micro: Microbiology 12/07/23 13:30 Tissue - 5th Toe Gram Stain - Final 12/07/23 13:30 Tissue - 5th Toe Wound Culture - Preliminary Klebsiella pneumoniae sp pneum Enterococcus faecalis Corynebacterium amycolatum GNR Poss Pseudomonas sp 12/07/23 13:30 Tissue - 5th Toe Anaerobic Culture - Preliminary Checking for anaerobes, further studies to follow. 12/06/23 11:50 Blood Culture (Wb) - Right Hand Blood Culture - Preliminary No growth in 48 hours. 12/06/23 11:45 Blood Culture (Wb) - Left Wrist Blood Culture - Preliminary No growth in 48 hours. Physical Exam Narrative Alert awake oriented x 3 no obvious distress no pallor no icterus no JVD s1s2 no murmurs lungs clear abdomen soft no organomegaly no edema no cyanosis celestin + Assessment & Plan Assessment/Plan (1) Chronic renal failure, stage 4 (severe): PLAN: Impression/Plan: The patient is a 78-year-old man with past history of type 2 diabetes mellitus, hypertension, PAD, HFrEF, iron deficiency anemia, and hyperlipidemia. The patient presented to hospital with right foot wound. The patient is being treated for right diabetic foot ulcer/cellulitis with concern for osteomyelitis. Nephrology is following for MOISÉS on CKD. Acute kidney injury on chronic kidney disease stage G4. Last known lab is from 2021 and at that time creatinine was 2.20 mg/dL. Serum creatinine has increased from 2.26 mg/dL on 12/05/2023 up to 3.03 mg/dL on 12/08/2023. Creatinine is about the same The patient is not oliguric. There was no microalbuminuria he appears euvolemic. Antibiotics as per primary/ID Reviewed old imaging. He had an MRI in 2019 which showed a possible renal tumor. No follow-up scans available. He does not remember having any surgeries on the kidneys. Will try to get records. If normal, we will repeat an ultrasound.
[2023-12-10 14:04] VITALS: BP 128/60; PULSE 73; RESP 16; TEMP 37.1; O2SAT 95
[2023-12-10 14:22] LABS: Pathologist Review Reviewed
[2023-12-10 14:26] LABS: Pathologist Review Reviewed
[2023-12-10 14:32] LABS: Pathologist Review Reviewed
--- NOTE | 2023-12-10 15:53 | CASEMGMT ---
Social Work - Discharge Planning This tech writer received update of possible need for short term SNF for PT/OT, in relation to NWB status. Chart reviewed and noted therapy recommendations for continued therapy. Patient is also on IV ATBs at this time; watching for possible IV ATB needs at discharge. Met with patient and in room. Introduced to self and role, as well as possibility of short term SNF. Provided list of area SNFs, generated from [facility] including patient's insurance network, geographical region, and Medicare star and quality data. Patient initially voiced thought that could go home, as has a walker at home. expressed concern about patient returning home right away, as concerned about patient's ability to maintain proper care of foot at home (and 's ability to assist). Patient appeared to accept the 's reasoning, and did not voice opposition to SNF. Offered SNF list, but patient deferred to the to review the list of choices. reviewed list and provided choices: [facility] and then [facility], in that order. Patient asked how long this process would take. Educated that length of time in SNF would be dependent on how patient is doing. Both patient and asked about insurance covering at the SNF. Educated that benefits are different based on plan, so uncertain exact benefit, but that once can find an accepting SNF the SNF would work on insurance authorization prior to admission. reports was at [facility] in the past, with same insurance, and had coverage. Message left for Leeanna at [facility] of referral. Spoke with Radha, Discharge Paper Cone Grader, regarding [facility]. Radha reports, based on conversations with [facility] today, there are no open beds at this facility and no expected discharges. Spoke with patient's to update about status of referrals. Asked and patient to review SNF list again for a 3rd choice, in case [facility] is unable to accept. reports will have an answer by the morning. Also asked to bring in POAHC and Living Will to hospital, so documents can be scanned into patient's chart. agrees to bring documents in. Plan: Anticipate SNF level of care. Referral pending at [facility]. -RC Galan
[2023-12-10 17:55] LABS: Bedside Glucose 150 mg/dL (74-106)
[2023-12-10] MEDS: 0.9% Normal Saline (1000mL) 1,000 ML 15 ML IV (20:14)
[2023-12-10] MEDS: Gabapentin 100 MG Capsule PO (20:19)
[2023-12-10] MEDS: Atorvastatin Calcium 80 MG Tablet PO (20:19)
[2023-12-10] MEDS: MELATONIN 10 MG TABLET PO (20:20)
[2023-12-10] MEDS: traZODone 50 MG Tablet PO (20:23)
[2023-12-10] MEDS: Insulin Glargine-YFGN 100 UNIT/ML Pen 10 UNIT SC (20:28)
[2023-12-10 20:31] VITALS: BP 133/68; PULSE 75; RESP 16; TEMP 36.9; O2SAT 97
[2023-12-10 23:37] LABS: Bedside Glucose 195 mg/dL (74-106)
[2023-12-11] VITALS (13 sets, daily range): BP systolic 103–167; BP diastolic 49–116; PULSE 66–110; RESP 12–24; TEMP 36.6–37.1; O2SAT 93–98; BMI 24.3
[2023-12-11 06:11] LABS: Bedside Glucose 133 mg/dL (74-106)
[2023-12-11 07:22] LABS: Absolute Lymphocyte Count 1.88 X10^3/uL (0.83-4.51); Absolute Neutrophil Count 12.6 X10^3/uL (2.0-7.7); Basophil# 0.06 X10^3/uL; Basophil% 0.4 % (0-1); Eosinophil# 0.41 X10^3/uL; Eosinophils% 2.5 % (0-5); Hematocrit 29.2 % (40-54); Hemoglobin 9.4 g/dL (13.0-16.5); Lymphocyte # 1.88 X10^3/ul (0.83-4.51); Lymphocyte % 11.2 % (19-41); Mean Corp Hgb Conc 32.2 g/dL (32-36); Mean Corpuscular Hgb 27.9 pg (27.0-32.0); Mean Corpuscular Volume 86.6 fL (80-94); Mean Platelet Vol. 10.6 fl (6.2-12.0); Monocyte# 1.56 X10^3/uL; Monocyte% 9.3 % (0-10); NRBC Flagged by Analyzer 0 % (0-5); Neutrophil # 12.62 X10^3/uL (2.7-7.7); Neutrophil % 75.5 % (47-70); POSITIVE DIFFERENTIAL YES; Platelet Count 322 K/mm3 (150-450); RBC Distribution Width CV 13.7 % (11.6-14.6); RBC Distribution Width SD 43.2 fl (35.1-43.9); Red Blood Count 3.37 M/mm3 (4.6-6.2); White Blood Count 16.7 K/mm3 (4.4-11.0)
[2023-12-11 07:39] LABS: Differential Indicated SCAN CRITERIA MET
[2023-12-11 07:50] LABS: Anion Gap 6 (5-15); BUN 71 mg/dL (7-18); BUN/Creat Ratio 26.9 RATIO (10-20); Calcium,Total 8.7 mg/dL (8.5-10.1); Chloride 110 mmol/L (98-107); Creatinine, Serum 2.64 mg/dL (0.70-1.30); EST Glomerular Filtration Rate 25 mL/min (>60); Est Glom Filt Rate - Afr Amer 30 mL/min (>60); Estimated Creatinine Clearance 17.96 ml/min; Glucose 131 mg/dL (74-106); Sodium Level 138 mmol/L (136-145)
[2023-12-11 09:34] LABS: Differential Comment SCANNED
--- NOTE | 2023-12-11 12:25 | CASEMGMT ---
Addendum entered by Heather Wilson 12/11/23 14:10: Social Work SW did hear back from [facility] that they cannot take pt. SW will continue to follow, awaiting call back from , will need to discuss additional SNF choices. [facility] Original Note: Social Work SW called to ask for additional long-term choices, message left. SW will continue to follow. [facility]
--- NOTE | 2023-12-11 14:46 | PCM.PN.HOSP ---
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 (12/06/23) Peripheral vascular disease, unspecified (12/06/23) Cellulitis of right lower limb (12/06/23) Non-pressure chronic ulcer of other part of unspecified foot with unspecified severity (12/06/23) Non-pressure chronic ulcer of other part of right foot with necrosis of bone (12/06/23) Osteomyelitis, unspecified (12/06/23) Chronic kidney disease, stage 4 (severe) (12/06/23) Presence of aortocoronary bypass graft (12/06/23) Objective Data Objective Data Vital Signs: Vital Signs Temp Pulse Resp BP Pulse Ox O2 Del Method O2 Flow Rate 98.5 F 66 16 153/63 H 98 Room Air 2 12/11/23 03:19 12/11/23 03:19 12/11/23 03:19 12/11/23 03:19 12/11/23 03:19 12/11/23 03:19 12/07/23 16:39 Oxygen Flow Rate (L/min) 2 Oxygen Delivery Method Room Air Weight: 137 lb 5.568 oz Body Mass Index (BMI) 24.3 Intake & Output: Intake and Output for Last 24 Hours 12/09/23 12/10/23 12/11/23 23:59 23:59 23:59 Intake Total 1550 / 1550 600 / 600 50 / 50 Output Total 1150 / 1150 725 / 725 Balance 400 / 400 -125 / -125 50 / 50 Lab / Micro Data 12/11/23 06:41 12/11/23 06:41 Labs: Laboratory Results - last 24 hr 12/10/23 17:16: POC Glucose 150 H 12/10/23 20:27: POC Glucose 195 H 12/11/23 05:29: POC Glucose 133 H 12/11/23 06:41: WBC 16.7 H, RBC 3.37 L, Hgb 9.4 L, Hct 29.2 L, MCV 86.6, MCH 27.9, MCHC 32.2, RDW Std Deviation 43.2, RDW Coeff of Milad 13.7, Plt Count 322, MPV 10.6, Immature Gran % (Auto) 1.100 H, Neut % (Auto) 75.5 H, Lymph % (Auto) 11.2 L, [place] % (Auto) 9.3, Eos % (Auto) 2.5, Baso % (Auto) 0.4, Absolute Neuts (auto) 12.6 H, Absolute Lymphs (auto) 1.88, Nucleated RBC % 0, Differential Comment SCANNED, Diff Path Review February, Sodium 138, Potassium 4.0, Chloride 110 H, Carbon Dioxide 22.0, Anion Gap 6, BUN 71 H, Creatinine 2.64 H, Estim Creat Clear Calc 17.96, Est GFR (MDRD) Af Amer 30 L, Est GFR (MDRD) Non-Af 25 L, BUN/Creatinine Ratio 26.9 H, Glucose 131 H, Calcium 8.7 Micro: Microbiology 12/06/23 11:50 Blood Culture (Wb) - Right Hand Blood Culture - Final No growth in 5 days. 12/06/23 11:45 Blood Culture (Wb) - Left Wrist Blood Culture - Final No growth in 5 days. 12/07/23 13:30 Tissue - 5th Toe Gram Stain - Final 12/07/23 13:30 Tissue - 5th Toe Wound Culture - Final Klebsiella pneumoniae sp pneum Enterococcus faecalis Corynebacterium amycolatum Pseudomonas aeruginosa 12/07/23 13:30 Tissue - 5th Toe Anaerobic Culture - Preliminary Checking for anaerobes, further studies to follow. Physical Exam Narrative Seen and examined. Patient had surgery. Postop day third. Had bowel movement in the morning. Physical exam: General: Alert, Oriented x3, Cooperative HEENT: Atraumatic, PERRLA, EOMI, Normocephalic Oral: Oral mucosa moist. No Gingival or Mucosal Lesions/ Ulcerations Neck: Supple, No JVD, Negative Carotid Bruits Chest wall/Lungs: Air entry diminished in bilateral lung bases. No crepitation/rhonchi Cardiovascular: Regular rate, Regular Rhythm, Normal S1, Normal S2, No M/G/R Abdomen: Bowel Sounds Present, Soft, Non Tender, Non-Distended :clear urine.: No renal angle tenderness. No suprapubic tenderness. Extremities: Left groin arterial sheath. No edema, Capillary Refill Less than 3 Seconds Skin: Had right sided fifth ray amputation on 12/07. Musculoskeletal: No Tenderness to Palpation of Joints or Extremities.Can wiggle his toes. Had left fifth ray amputation. Neurological: Cranial nerves II-XII grossly intact, DTR 2+/4. No acute focal neurological deficit. Psych/Mental Status: Flat affect. Does not remember well. Dementia. Assessment & Plan Assessment/Plan (1) Osteomyelitis of right foot: (2) Peripheral vascular occlusive disease: (3) Type 2 diabetes mellitus: (4) Ischemic cardiomyopathy: (5) Essential (primary) hypertension: (6) H/O coronary artery bypass surgery: (7) Chronic renal failure, stage 4 (severe): (8) Chronic HFrEF (heart failure with reduced ejection fraction): PLAN: Plan This is a 78-year-old male was admitted for nonhealing wound on the right foot for about 3 months being followed by Dr. Alva. #R foot diabetic foot wound w/ cellulitis and concern for osteomyelitis: Patient is being on [facility] floor. Has nonhealing wound for at least 3 months. Was a started on doxycycline and Levaquin day before admission but patient vomited twice. Patient also had Registry going up to the right lower leg. IV antibiotics vancomycin and Zosyn. Patient has significant leukocytosis, 18K increased to 20.1 thousand. Afebrile. CRP 165 with ESR of 72, repeat CRP and ESR are elevated. CRP 174 and ESR 64. -X-ray in ED with dorsal soft tissue swelling and ulcer overlying the distal portion of the fifth metatarsal. Calcaneal Spurs. Log Check Scaler is consulted. Vascular surgery consulted. Wound care nurse consulted. Blood cultures x 2 sent. IV broad-spectrum antibiotics. PT and OT. Plan for surgery today 12/08: Patient had partial fifth ray amputation of right foot on 12/07, partial fourth metatarsal amputation, incision of bone cortex and wide debridement of necrotic tissue in right foot. Skin flap right foot. Continue IV antibiotics. Vancomycin dosing as per pharmacist patient has CKD stage IV. Wound culture shows mixed gram-positive organism.Consult ID. 12/09: Patient is doing well. Cultures pending. ID consult tomorrow AM. 12/10: Patient was evaluated by ID construction safety consultant. On Vanco and Zosyn cultures so far showing GNR, possible Enterococcus and GPR. Full culture pending. 12/11: Patient had aortogram, right lower extremity runoff with IVUS right TP trunk, SFA/popliteal and common femoral to left femoral artery access. Left arterial sheath left. Verbal report that diffuse stenosis, poor runoff not accessible for angioplasty/stenting. Need open surgery possible bypass. Final wound culture shows Klebsiella pneumoniae, Enterococcus faecalis, corynebacterium and Pseudomonas aeruginosa. On the other tissue culture prelim gram-negative stevo anaerobic cocci. #CKD IV -Patient takes 60 of Lasix daily, creatinine seems to be up from baseline though patient appears euvolemic -Holding lasix, pt given IVF in ED, will decrease rate given heart failure. Improvement in creatinine. -Urine osmolarity 254, sodium 58, creatinine 30.6 potassium 19 chloride 55 urea nitrogen 290. -Bmx Rider consulted. -Renal diet 12/08: Creatinine went to 3.0. Random vancomycin tomorrow AM. 12/09: BUNs/creatinine 71/3.0. Random Vanco level 22. 12/10: Random vancomycin 18 today. Patient has Stovall catheter. Clear urine. Had bowel movement. Vancomycin was held yesterday. Discontinue Stovall catheter. 12/11:BUNs/creatinine 71/2.64. #HFrEF, chronic -Last echo 04/2022 with segmental systolic dysfunction EF of 40%. Holding Lasix as mentioned above. -Daily weights, I's and O's -Remains on beta-hernán #Type 2 diabetes mellitus with neuropathy -Glucose checks and sliding scale insulin decrease long acting insulin d/t npo -cont neurontin A1c 7.9%. Glucose 109 in BMP. 12/10: Glucose in BMP 173. Accu-Cheks 2062. Lantus dose increased to 10 units twice daily. #GERD -Continue PPI #memory difficulty and Depression -Continue Lexapro - reports progressively worsening memory -Supportive care -Melatonin qhs -Continue trazodone #CAD -s/p CABG 2013 -patient is on aspirin, Plavix, statin, beta-hernán #DVT ppx: SCDs Microbiology Past 72 Hours 12/07/23 13:30 Tissue - 5th Toe Gram Stain - Final 12/07/23 13:30 Tissue - 5th Toe Wound Culture - Final Klebsiella pneumoniae sp pneum Enterococcus faecalis Corynebacterium amycolatum Pseudomonas aeruginosa 12/07/23 13:30 Tissue - 5th Toe Anaerobic Culture - Preliminary Gram negative stevo Anaerobic cocci 12/06/23 11:50 Blood Culture (Wb) - Right Hand Blood Culture - Final No growth in 5 days. 12/06/23 11:45 Blood Culture (Wb) - Left Wrist Blood Culture - Final No growth in 5 days. Laboratory Results 12/10/23 17:16: POC Glucose 150 H 12/10/23 20:27: POC Glucose 195 H 12/11/23 05:29: POC Glucose 133 H 12/11/23 06:41: WBC 16.7 H, RBC 3.37 L, Hgb 9.4 L, Hct 29.2 L, MCV 86.6, MCH 27.9, MCHC 32.2, RDW Std Deviation 43.2, RDW Coeff of Milad 13.7, Plt Count 322, MPV 10.6, Immature Gran % (Auto) 1.100 H, Neut % (Auto) 75.5 H, Lymph % (Auto) 11.2 L, [place] % (Auto) 9.3, Eos % (Auto) 2.5, Baso % (Auto) 0.4, Absolute Neuts (auto) 12.6 H, Absolute Lymphs (auto) 1.88, Nucleated RBC % 0, Differential Comment SCANNED, Diff Path Review February, Sodium 138, Potassium 4.0, Chloride 110 H, Carbon Dioxide 22.0, Anion Gap 6, BUN 71 H, Creatinine 2.64 H, Estim Creat Clear Calc 17.96, Est GFR (MDRD) Af Amer 30 L, Est GFR (MDRD) Non-Af 25 L, BUN/Creatinine Ratio 26.9 H, Glucose 131 H, Calcium 8.7 Charges/Coding Visit Charges Inpatient E&M: 52472 Subs Hosp L2
--- NOTE | 2023-12-11 15:03 | PCM.OPRPT ---
Report of Operation Date of Procedure: 12/11/23 Pre-Operative Diagnosis: atherosclerosis with gangrene right lower extremity Post-Operative Diagnosis: same Surgery/Procedure Performed:: aortogram, right lower extremity runoff IVUS right TP trunk, SFA/popliteal, common femoral Surgeon: Anthony Alvarenga Type of Anesthesia: Local and Sedation,Conscious Estimated Blood Loss (mL): 4 Description of Procedure: HPI: Patient is an 78-year-old male who presented with right lower extremity foot wound and peripheral vascular disease. He underwent toe amputation as effort source control. His noninvasive vascular studies suggest moderate arterial insufficiency based on waveforms however he is noncompressible with artificially elevated indices. He is taken now for angiogram with possible intervention. Due to his severe chronic kidney disease CO2 will be utilized to minimize contrast. Description of procedure: Upon obtaining informed consent and verification of correct patient procedure site patient taken to the [facility] where he was positioned prepped and draped in usual fashion. Time was performed, sedation administered with Versed and Bentyl. Skin overlying the left common femoral artery was anesthetized 1% lidocaine the vessel accessed with a micropuncture needle wire under ultrasound guidance. This then exchanged out for micropuncture sheath through which a Bentson was advanced into the abdominal aorta. The micropuncture sheath was then exchanged out for a short 5 [place] sheath and a pigtail catheter advanced into the abdominal aorta and an aortogram pelvic angiogram was performed with CO2. We then navigated to the contralateral system using the Bentson wire and an SCOOTER catheter advancing our catheter into the distal external iliac artery. For this position sequential right lower extremity CO2 angiogram was performed. There was poor imaging of the more distal vessel so the glide advantage wire and quick cross catheter were utilized to navigate into the superficial femoral artery advancing the catheter ultimately into the distal SFA. The short 5 [place] sheath was then exchanged out for a long 6 [place] sheath. From this position further CO2 angiography was performed which gave adequate visualization of the more distal vessels. There appeared to be diffuse calcified atherosclerosis throughout the SFA popliteal as well as disease of the anterior tibial and peroneal arteries with the posterior tibial artery as the dominant runoff. In order to further define the severity and extent of the SFA popliteal disease and also potentially guide her treatment of the more distal vessels we attempted to navigate into the posterior tibial artery with a command 18 wire and an angled quick cross catheter. We ultimately were able to navigate into the proximal portion however there appeared to be a stenosis a couple of centimeters distal to the origin that diverted our wire into a sidebranch. Multiple efforts were made including further imaging with some contrast utilization however we are unable to navigate beyond the area of stenosis and/or short occlusion. Ultimately the wire traversed into the peroneal artery and then perforated beyond the area of total occlusion. Is felt that we could at least obtain intravascular sound imaging to further assess the extent of disease and severity and determine whether any endovascular options were available. A 6 Cuban intravascular sound probe was then advanced over the wire and recorded pullback performed of the tibioperoneal trunk, SFA popliteal, common femoral arteries. This revealed extensive highly calcified atherosclerosis throughout the entirety of the SFA popliteal and into the tibioperoneal trunk with really no segments that were free of disease. There was no total occlusion apparent on any of the imaging however there was multiple segments of high-grade stenosis with near occlusion of several segments. Seeing that no lesions were optimal for endovascular treatment the wires and catheters withdrawn and the long 6 Cuban sheath exchanged for a short 6 Cuban sheath after which a minx closure device was deployed and manual pressure held for 2 minutes. Patient was then taken the recovery room for bedrest prior to [facility] the [facility]. Radiographic interpretation: Abdominal aorta normal caliber with diffuse calcification but no stenosis. Left common and external leg arteries widely patent with scattered calcification but no stenosis. Right common and external iliac arteries patent with scattered calcification but no stenosis. Right common femoral artery patent with moderate calcified atherosclerosis but no significant stenosis. Right profundofemoral artery irregular artery with calcified stenosis mild in nature. Right superficial femoral artery with severe diffuse calcified atherosclerosis throughout the entirety of the vessel extending into the popliteal artery throughout its entirety with severe distal popliteal stenosis. Anterior tibial artery patent highly diseased vessel with calcified atherosclerosis with small caliber diseased vessel throughout down to the ankle. Posterior tibial artery dominant vessel runoff to the foot which was of adequate caliber however proximally and had a greater than 50% stenosis. Peroneal artery small caliber highly diseased vessel occluded shortly beyond its origin.
--- NOTE | 2023-12-11 16:04 | VDLE_ITS ---
Reason For Study: Preoperative planning RIGHT LEFT GSV prox thigh, 0.28 x 0.28 cm. GSV previously harvested. GSV mid thigh, 0.14 x 0.15 cm. SSV prox, 0.23 x 0.24 cm. GSV distal thigh, 0.24 x 0.24 cm. SSV mid, 0.20 x 0.21 cm. GSV knee, 0.22 x 0.25 cm. SSV distal, 0.20 x 0.22 cm. GSV prox calf, 0.20 x 0.21 cm. GSV mid calf, 0.20 x 0.22 cm. GSV distal calf, 0.25 x 0.27 cm. ASV prox thigh, 0.13 x 0.13 cm. ASV mid thigh, 0.18 x 0.18 cm. ASV distal thigh, 0.09 x 0.10 cm. ASV knee, 0.18 x 0.18 cm. ASV prox calf,0.17 x 0.18 cm SSV prox, 0.28 x 0.28 cm. SSV mid, 0.20 x 0.22 cm. SSV distal, 0.21 x 0.30 cm. Procedure This is a venous duplex using B-mode, color flow and spectral Doppler. Exam performed portable in patient room. VL/Saphenous Vein Mapping, Bilat Interpretation Summary Right great saphenous, small saphenous, and accessory saphenous veins patent wi th measurements above. Ordering Physician: Kaylyn Burns Referring Physician: Elvia Cobian Performed By: Heidi Menezes RVT
[2023-12-11 16:24] LABS: ACT Activated Clotting Time 228 sec (74-137)
[2023-12-11] MEDS: Juven (unflavored) Packet 1 PACKET PO (16:36)
[2023-12-11] MEDS: Menthol/Lanolin/Calamine/Znox 113 GM Tube 1 APPLIC TOPICAL ×2 (16:37→22:05)
[2023-12-11] MEDS: Senna/Docusate Sodium 1 Tablet 2 TABLET PO (16:37)
[2023-12-11] MEDS: Escitalopram Oxalate 20 MG Tablet PO (16:38)
[2023-12-11] MEDS: Carvedilol 12.5 MG Tablet PO ×2 (16:38→22:06)
[2023-12-11] MEDS: Aspirin 81 MG TAB.CHEW PO (16:38)
[2023-12-11] MEDS: Ferrous Sulfate 325 MG Tablet PO (16:38)
[2023-12-11] MEDS: Pantoprazole Sodium 40 MG Tablet PO (16:39)
[2023-12-11] MEDS: Clopidogrel Bisulfate 75 MG Tablet PO (16:39)
[2023-12-11] MEDS: Polyethylene Glycol 3350 17 GM PACKET PO (16:39)
[2023-12-11 16:49] LABS: Bedside Glucose 125 mg/dL (74-106)
[2023-12-11] MEDS: Piperacil/Tazobactam 3.375 GM in 0.9% Normal Saline (50mL MB+) 50 ML IV (21:57)
[2023-12-11] MEDS: 0.9% Saline Lock 10 ML Syringe IV (22:00)
[2023-12-11] MEDS: Insulin Lispro 100 UNIT/ML INSULN.PEN SC (22:04)
[2023-12-11] MEDS: MELATONIN 10 MG TABLET PO (22:06)
[2023-12-11] MEDS: Atorvastatin Calcium 80 MG Tablet PO (22:06)
[2023-12-11] MEDS: Gabapentin 100 MG Capsule PO (22:07)
[2023-12-11] MEDS: Insulin Glargine-YFGN 100 UNIT/ML Pen 10 UNIT SC (22:08)
[2023-12-11] MEDS: traZODone 50 MG Tablet PO (22:08)
[2023-12-11 22:31] LABS: Bedside Glucose 186 mg/dL (74-106)
[2023-12-12] VITALS (8 sets, daily range): BP systolic 103–144; BP diastolic 49–73; PULSE 73–98; RESP 16–17; TEMP 36.3–37.6; O2SAT 95–98; BMI 24.5
--- NOTE | 2023-12-12 07:53 | PN_ITS ---
Subjective Subjective Patient seen this a.m. resting in bed. Does seem a little confused about weightbearing status and care while at home. Denies pain to the foot. States he is not walking on it however nursing continues to state he does walk on this foot. Denies constitutional symptoms. Denies further complaints. Objective Data Objective Data Vital Signs: Vital Signs Temp Pulse Resp BP Pulse Ox O2 Del Method O2 Flow Rate 98.2 F 74 16 124/73 H 96 Room Air 2 12/12/23 06:25 12/12/23 06:25 12/12/23 06:25 12/12/23 06:25 12/12/23 06:25 12/12/23 06:25 12/07/23 16:39 Oxygen Flow Rate (L/min) 2 Oxygen Delivery Method Room Air Weight: 62.8 kg Body Mass Index (BMI) 24.5 Intake & Output: Intake and Output for Last 24 Hours 12/10/23 12/11/23 12/12/23 23:59 23:59 23:59 Intake Total 600 / 600 250 / 250 50 / 50 Output Total 725 / 725 850 / 850 Balance -125 / -125 -600 / -600 50 / 50 Lab / Micro Data 12/11/23 06:41 12/11/23 06:41 Labs: Laboratory Results - last 24 hr 12/11/23 06:41: Differential Comment SCANNED, Diff Path Review February12/11/23 14:30: Activated Clotting Time 228 H 12/11/23 16:30: POC Glucose 125 H 12/11/23 22:02: POC Glucose 186 H Micro: Microbiology 12/07/23 13:30 Tissue - 5th Toe Gram Stain - Final 12/07/23 13:30 Tissue - 5th Toe Wound Culture - Final Klebsiella pneumoniae sp pneum Enterococcus faecalis Corynebacterium amycolatum Pseudomonas aeruginosa 12/07/23 13:30 Tissue - 5th Toe Anaerobic Culture - Preliminary Gram negative stevo Anaerobic cocci 12/06/23 11:50 Blood Culture (Wb) - Right Hand Blood Culture - Final No growth in 5 days. 12/06/23 11:45 Blood Culture (Wb) - Left Wrist Blood Culture - Final No growth in 5 days. Physical Exam Const alert, oriented x3 and no apparent distress General Appearance: cooperative HEENT normocephalic Eyes Eyes Narrative: Wears glasses General Eye: normal appearance of both eyes Neck General: normal visual inspection Lymph Lymphatic: no lymphadenopathy noted and no lymphedema noted Resp normal respiratory effort Cardio regular rate and regular rhythm Extremity no calf tenderness Extremity Narrative: DP and PT pulses nonpalpable bilateral. Capillary fill time is roughly 5 seconds digits. Normal temperature gradient. Hair growth is absent to digits/foot with trophic changes noted. Dermatological: Skin demonstrates trophic changes consistent with microvascular disease. Second digit of the left foot and dorsal hallux of the left foot demonstrate digital excoriation with eschar covering, no signs of infection. Sutures intact at amputation stump s/p partial fifth ray and fourth metatarsal head resection with skin flap closure. Skin flap remains healthy and viable with good coloration. Erythema is decreasing. Neurological: Decreased protective sensation noted to both feet secondary to diabetic peripheral polyneuropathy. Musculoskeletal: Previous partial fifth ray amputation of the left foot. Muscle strength 5 of 5 age-appropriate. No pain to palpation of the bones of the foot or ankle. Decreased range of motion of the ankle joint in dorsiflexion with the knee extended without pain or crepitus. Decreased range of motion of the first metatarsophalangeal joint without pain or crepitus. Skin no rashes or lesions noted, skin turgor normal and no jaundice Neuro oriented x3 and moves all extremities Assessment & Plan Assessment/Plan (1) Osteomyelitis of right foot: (2) Non-pressure chronic ulcer of other part of right foot with necrosis of bone: (3) Diabetes mellitus with diabetic polyneuropathy: (4) PVD (peripheral vascular disease) with claudication: (5) Type 2 diabetes mellitus with foot ulcer: PLAN: Plan Patient seen and evaluated He is s/p partial fifth ray amputation and fourth metatarsal head resection, incision of bone cortex, I&D with wide debridement of necrotic tissue, and skin flap right foot. DOS 12/07/2023. POD #5 Did undergo arteriogram of the right lower extremity on 12/11/[address] Alvarenga. Sutures intact at amputation stump s/p partial fifth ray and fourth metatarsal head resection with skin flap closure. Skin flap remains healthy and viable with good coloration. Erythema is decreasing. Overall foot is improving. Dressings changed consisting of Betadine soaked Adaptic 4 x 4 gauze Kerlix, and 4 inch Sean wrap rolled onto the right foot. WBC currently 16.7. Currently on IV Vanco/Zosyn Blood cultures obtained, no growth Surgical cultures: Tissue: Klebsiella pneumoniae, E faecalis, corynebacterium amycolatum, PsA, anaerobic cocci; Bone: Strep angiosis, anaerobic cocci LEAS to be obtained demonstrating noncompressible vessels with likely moderate arterial insufficiency. Radiographs obtained of the right foot 12/06/2023 demonstrating soft tissue ulceration overlying distal portion of the fifth metatarsal with dorsal soft tissue swelling and vascular calcifications. Medicine currently following for medical management, they are appreciated. Vascular surgery consulted with intervention performed due to 12/11/2023. Infectious disease consulted for antibiotic management. Wound nurse assisting in dressing changes Patient to be nonweightbearing to the right foot with assistance of a walker. Nursing may reinforce dressings for any strikethrough. Patient may benefit from SNF due to noncompliance of ambulating on amputation stump and assistance in care postsurgical status. Please do not hesitate to call with any questions or concerns. Will continue to follow while in house. Discharge to outside SNF he will then follow-up in office with me. Jr. Ken Lozada.P.M. [facility] [place] [phone]
[2023-12-12] MEDS: Juven (unflavored) Packet 1 PACKET PO ×2 (08:26→17:47)
[2023-12-12] MEDS: Carvedilol 12.5 MG Tablet PO ×2 (08:31→21:54)
[2023-12-12] MEDS: Aspirin 81 MG TAB.CHEW PO (08:31)
[2023-12-12] MEDS: Clopidogrel Bisulfate 75 MG Tablet PO (08:31)
[2023-12-12] MEDS: Pantoprazole Sodium 40 MG Tablet PO (08:31)
[2023-12-12] MEDS: Menthol/Lanolin/Calamine/Znox 113 GM Tube 1 APPLIC TOPICAL ×2 (08:32→21:56)
[2023-12-12] MEDS: Insulin Glargine-YFGN 100 UNIT/ML Pen 10 UNIT SC ×2 (08:32→21:53)
[2023-12-12] MEDS: Senna/Docusate Sodium 1 Tablet 2 TABLET PO ×2 (08:40→21:54)
[2023-12-12] MEDS: Piperacil/Tazobactam 3.375 GM in 0.9% Normal Saline (50mL MB+) 50 ML IV ×2 (08:40→21:55)
[2023-12-12 09:45] LABS: Bedside Glucose 132 mg/dL (74-106)
--- NOTE | 2023-12-12 09:47 | PN.SURG_ITS ---
Subjective Subjective Patient was seen resting comfortably in bed. He reports some mild discomfort in his right foot but otherwise denies pain in his lower extremities. He denies any pain at the L groin access site. Objective Data Objective Data Vital Signs: Vital Signs Temp Pulse Resp BP Pulse Ox O2 Del Method O2 Flow Rate 98.0 F 79 16 137/53 H 97 Room Air 2 12/12/23 08:32 12/12/23 08:32 12/12/23 08:32 12/12/23 08:32 12/12/23 08:32 12/12/23 08:32 12/07/23 16:39 Oxygen Flow Rate (L/min) 2 Oxygen Delivery Method Room Air Weight: 138 lb 7.205 oz Body Mass Index (BMI) 24.5 Intake & Output: Intake and Output for Last 24 Hours 12/10/23 12/11/23 12/12/23 23:59 23:59 23:59 Intake Total 600 / 600 250 / 250 50 / 50 Output Total 725 / 725 850 / 850 Balance -125 / -125 -600 / -600 50 / 50 Lab / Micro Data 12/11/23 06:41 12/11/23 06:41 Labs: Laboratory Results - last 24 hr 12/11/23 14:30: Activated Clotting Time 228 H 12/11/23 16:30: POC Glucose 125 H 12/11/23 22:02: POC Glucose 186 H 12/12/23 06:36: POC Glucose 132 H Micro: Microbiology 12/07/23 13:30 Tissue - 5th Toe Gram Stain - Final 12/07/23 13:30 Tissue - 5th Toe Wound Culture - Final Klebsiella pneumoniae sp pneum Enterococcus faecalis Corynebacterium amycolatum Pseudomonas aeruginosa 12/07/23 13:30 Tissue - 5th Toe Anaerobic Culture - Final Bacteroides fragilis Anaerobic cocci 12/06/23 11:50 Blood Culture (Wb) - Right Hand Blood Culture - Final No growth in 5 days. 12/06/23 11:45 Blood Culture (Wb) - Left Wrist Blood Culture - Final No growth in 5 days. Physical Exam Const alert and no apparent distress General Appearance: cooperative and comfortable HEENT normocephalic, head/scalp atraumatic, hearing grossly normal bilaterally, external ears normal and external nose normal Eyes EOMs intact bilaterally General Eye: normal appearance of both eyes Neck General: normal visual inspection and trachea midline Resp normal respiratory effort, no retractions and no use of accessory muscles Effort and Inspection: able to speak in complete sentences; Negative for labored, stridor or audible wheezes Cardio regular rate and regular rhythm Extremity Extremity Narrative: L groin access site with mild ecchymosis, minimal bloody drainage noted on dry dressing. No significant swelling. 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 Unfortunately, this disease was not amenable to endovascular intervention. Will require an open femoral to PT bypass to improve inflow and healing potential. Vein mapping ordered to see if any [place] vein appropriate for use in the bypass, if not then will plan for cadaver bypass. Patient is established with [facility]. His last echo was 2021. Will seek cardiology input regarding risk stratification and optimization for surgery. Tentatively planning for surgery Sunday pending cardiology input. Continue ASA, Plavix, and statin.
[2023-12-12] MEDS: Acetaminophen 325 MG Tablet 650 MG PO (09:55)
--- NOTE | 2023-12-12 10:00 | CASEMGMT ---
LILLIAN called patient's Vicki to obtain more SNF choices. Her next choices were [facility] and [facility]. LILLIAN will work on referrals. LILLIAN sent a referral to [facility] via [facility]. Rachelle BARBOUR
[2023-12-12] MEDS: Escitalopram Oxalate 20 MG Tablet PO (10:59)
[2023-12-12] MEDS: Ferrous Sulfate 325 MG Tablet PO (10:59)
[2023-12-12] MEDS: Insulin Lispro 100 UNIT/ML INSULN.PEN SC ×3 (11:03→21:53)
[2023-12-12 11:24] LABS: Bedside Glucose 236 mg/dL (74-106)
--- NOTE | 2023-12-12 11:30 | PN.RENAL_ITS ---
Subjective Subjective S/p angiogram, CO2 contrast Objective Data Objective Data Vital Signs: Vital Signs Temp Pulse Resp BP Pulse Ox O2 Del Method O2 Flow Rate 98.0 F 79 16 137/53 H 97 Room Air 2 12/12/23 08:32 12/12/23 08:32 12/12/23 08:32 12/12/23 08:32 12/12/23 08:32 12/12/23 08:32 12/07/23 16:39 Oxygen Flow Rate (L/min) 2 Oxygen Delivery Method Room Air Weight: 62.8 kg Body Mass Index (BMI) 24.5 Intake & Output: Intake and Output for Last 24 Hours 12/10/23 12/11/23 12/12/23 23:59 23:59 23:59 Intake Total 600 / 600 250 / 250 50 / 50 Output Total 725 / 725 850 / 850 Balance -125 / -125 -600 / -600 50 / 50 Lab / Micro Data 12/11/23 06:41 12/11/23 06:41 Labs: Laboratory Results - last 24 hr 12/11/23 14:30: Activated Clotting Time 228 H 12/11/23 16:30: POC Glucose 125 H 12/11/23 22:02: POC Glucose 186 H 12/12/23 06:36: POC Glucose 132 H 12/12/23 11:02: POC Glucose 236 H Micro: Microbiology 12/07/23 13:30 Tissue - 5th Toe Gram Stain - Final 12/07/23 13:30 Tissue - 5th Toe Wound Culture - Final Klebsiella pneumoniae sp pneum Enterococcus faecalis Corynebacterium amycolatum Pseudomonas aeruginosa 12/07/23 13:30 Tissue - 5th Toe Anaerobic Culture - Final Bacteroides fragilis Anaerobic cocci 12/06/23 11:50 Blood Culture (Wb) - Right Hand Blood Culture - Final No growth in 5 days. 12/06/23 11:45 Blood Culture (Wb) - Left Wrist Blood Culture - Final No growth in 5 days. Physical Exam Narrative Alert awake oriented x 3 no obvious distress no pallor no icterus no JVD s1s2 no murmurs lungs clear abdomen soft no organomegaly no edema Assessment & Plan Assessment/Plan (1) Chronic renal failure, stage 4 (severe): PLAN: Impression/Plan: The patient is a 78-year-old man with past history of type 2 diabetes mellitus, hypertension, PAD, HFrEF, iron deficiency anemia, and hyperlipidemia. The patient presented to hospital with right foot wound. The patient is being treated for right diabetic foot ulcer/cellulitis with concern for osteomyelitis. Nephrology is following for MOISÉS on CKD. Acute kidney injury on chronic kidney disease stage G4. Last known lab is from 2021 and at that time creatinine was 2.20 mg/dL. Serum creatinine has increased from 2.26 mg/dL on 12/05/2023 up to 3.03 mg/dL on 12/08/2023. Creatinine is about the same The patient is not oliguric. There was no microalbuminuria he appears euvolemic. Reviewed old imaging. He had an MRI in 2019 which showed a possible renal t umor. Repeat renal ultrasound as outpatient
--- NOTE | 2023-12-12 13:25 | EKG12_ITS ---
Test Reason : abnormal ekg Blood Pressure : / mmHG Vent. Rate : 071 BPM Atrial Rate : 071 BPM P-R Int : 148 ms QRS Dur : 158 ms QT Int : 490 ms P-R-T Axes : 023 -49 191 degrees QTc Int : 532 ms Normal sinus rhythm Right bundle branch block Left anterior fascicular block Bifascicular block Possible Lateral infarct (cited on or before 07-DEC-2023) Inferior infarct , age undetermined Abnormal ECG When compared with ECG of 07-DEC-2023 05:14, Criteria for Anteroseptal infarct are no longer Present Serial changes of Lateral infarct Present Confirmed by HIPOLITO CIFUENTES, ARANZA ([id number]), legal editor ANDRE KISER ([id number]) on 12/17/2023 6:50:50 AM Referred By: Confirmed By:ANTOINETTE MCMILLAN MD
[2023-12-12 13:38] LABS: Pathologist Review Reviewed
--- NOTE | 2023-12-12 13:42 | PCM.PN.ID ---
Physical Exam Narrative Feeling ok, no fever, no n/v/d. Const alert and no apparent distress General Appearance: cooperative Resp normal air movement and clear to auscultation bilaterally Cardio regular rate and regular rhythm GI soft to palpation, non-tender and non-distended Skin no rashes or lesions noted Skin Narrative: foot wrapped ID ID: Route of nutrition/ use of supplements: [] Nutritional Intake: [] IV Site: [] Stovall Catheter: [] Assessment & Plan Assessment/Plan (1) Diabetes mellitus with diabetic polyneuropathy: (2) Osteomyelitis: PLAN: on zosyn, taken to OR 12/07/[address] Alva for partial excision R 4th metatarsal and 5th ray. Surg cx with PsA, enterococcus, klebs, corynebacter, anaerobes. QTC is 527 on EKG here, so will plan at this point on one week iv zosyn at discharge via midline. Wrote rx. Will follow (3) PVD (peripheral vascular disease) with claudication:
--- NOTE | 2023-12-12 14:49 | CASEMGMT ---
[facility] accepted patient and they will start patient's pre-cert. LILLIAN notified patient's and answered her questions. Plan: [facility] pending insurance authorization. Rachelle BARBOUR
--- NOTE | 2023-12-12 15:17 | PCM.PN.HOSP ---
Reason for Visit Reason for Visit: Right foot wound Subjective Subjective Patient is a 78-year-old white male who presents emergency department was counseled on 220 02/14/2024 at the recommendation of his supervisor pre wave due to diabetic foot infection. There was concern for osteomyelitis. Patient has had a nonhealing wound on his foot for about 3 months and been following with Dr. Alva. He was placed on doxycycline and Levaquin as an outpatient however the patient vomited twice after taking them and then saw podiatry again on the day of presentation and had a red streak up his leg. His vital signs were stable on presentation however his white count was elevated at 18.7 with a left shift, CRP was 165, ESR was 72 and his serum creatinine was 3.01 with a creatinine a year ago at 2.26. Blood cultures were obtained and podiatry and vascular surgery were consulted. He was started on IV antibiotics. Nephrology was also consulted. Arterial studies were ordered by vascular surgery and were abnormal so an aortogram with right lower extremity runoff was performed. He had significant atherosclerosis throughout the entire SFA popliteal and into the tibioperoneal trunk with no segments that were free of disease and no total occlusion but multiple segments of high-grade stenosis unfortunately none were amenable to endovascular treatment. He was taken to the OR on 12/07/2023 by podiatry at which time a partial fifth ray amputation of the right foot and a partial fourth metatarsal amputation of the right foot were performed. Bone cultures were sent and I&D with a wide debridement of the necrotic tissue was performed with skin flap. Postoperatively he is doing well. He is to be nonweightbearing which she has been doing here however there is concern that if he goes home he will weight-bear on this leg as he has limited memory. He also has some weakness and a at home was not able to significantly help him with anything so plan is for discharge to skilled facility once pre-CERT is obtained. Infectious disease have been following as has nephrology. Nephrology noted that his creatinine is currently stable and plans on outpatient follow-up. He has had previous MRI in 2019 which showed possible renal tumor and the plan is for outpatient ultrasound after discharge. Infectious disease has recommended ongoing antibiotics at discharge via midline with Zosyn for another 7 days. Patient states he is not having any issues. Denies any pain. We did review the plan for skilled facility at discharge and the patient is wondering why he cannot just go home. His is at the bedside and she confirms with me that she cannot take care of him at home and we have concerns with regards to his weightbearing status as well. After further discussion he was convinced that going to retirement facility for temporary rehab would be most appropriate. Patient does get somewhat agitated in the evening and I suspect this is related to symptoms. Objective Data Objective Data Vital Signs: Vital Signs Temp Pulse Resp BP Pulse Ox O2 Del Method O2 Flow Rate 97.4 F L 73 16 113/59 L 98 Room Air 2 12/12/23 14:30 12/12/23 14:30 12/12/23 14:30 12/12/23 14:30 12/12/23 14:30 12/12/23 14:30 12/07/23 16:39 Oxygen Flow Rate (L/min) 2 Oxygen Delivery Method Room Air Weight: 62.8 kg Body Mass Index (BMI) 24.5 Intake & Output: Intake and Output for Last 24 Hours 12/10/23 12/11/23 12/12/23 23:59 23:59 23:59 Intake Total 600 / 600 250 / 250 100 / 100 Output Total 725 / 725 850 / 850 Balance -125 / -125 -600 / -600 100 / 100 Lab / Micro Data 12/11/23 06:41 12/11/23 06:41 Labs: Laboratory Results - last 24 hr 12/11/23 06:41: Diff Path Review Reviewed 12/11/23 14:30: Activated Clotting Time 228 H 12/11/23 16:30: POC Glucose 125 H 12/11/23 22:02: POC Glucose 186 H 12/12/23 06:36: POC Glucose 132 H 12/12/23 11:02: POC Glucose 236 H Micro: Microbiology 12/07/23 13:30 Tissue - 5th Toe Gram Stain - Final 12/07/23 13:30 Tissue - 5th Toe Wound Culture - Final Klebsiella pneumoniae sp pneum Enterococcus faecalis Corynebacterium amycolatum Pseudomonas aeruginosa 12/07/23 13:30 Tissue - 5th Toe Anaerobic Culture - Final Bacteroides fragilis Anaerobic cocci 12/06/23 11:50 Blood Culture (Wb) - Right Hand Blood Culture - Final No growth in 5 days. 12/06/23 11:45 Blood Culture (Wb) - Left Wrist Blood Culture - Final No growth in 5 days. Physical Exam Const alert, no apparent distress, average body habitus and well nourished Constitutional Narrative: Elderly, white male, sitting up in a chair, oriented to self and place but not time, appears comfortable and nontoxic, at bedside HEENT head/scalp atraumatic and moist oral mucous membranes HEENT Narrative: Dentures in place, Mallampati 2, no thrush Head and Scalp: normocephalic Resp normal respiratory effort, no retractions, no use of accessory muscles and clear to auscultation bilaterally Auscultation: Negative for crackles, rales, rhonchi or wheezes Cardio regular rate, regular rhythm, S1 normal heart sound, S2 normal heart sound, no murmurs, no rub, no gallops and no clicks GI normal to inspection, nondistended, normoactive bowel sounds, soft to palpation and non-tender Extremity no clubbing, cyanosis or edema Extremity Narrative: Cap refill is 1+ right lower extremity, postoperative dressing in place on right lower extremity Neuro moves all extremities and no focal motor deficits Neuro Narrative: Generalized weakness noted with proximal musculature being weaker than distal Sensorium / Orientation: awake, alert, oriented to person and oriented to place Psych affect normal Psych Narrative: Eye contact is good, patient interacts appropriately Assessment & Plan Assessment/Plan (1) Diabetes mellitus with diabetic polyneuropathy: (2) Osteomyelitis: (3) Diabetic foot ulcer: (4) PVD (peripheral vascular disease) with claudication: PLAN: Plan Right diabetic foot infection/osteomyelitis -Postop day 5 partial fifth ray amputation of right foot, partial fourth metatarsal amputation, incision of bone cortex and wide debridement of necrotic tissue in right foot and skin flap right foot -Cultures are currently showing Klebsiella, Enterococcus, corynebacterium, Pseudomonas, Bacteroides, and another ANNITA aerobic cocci -Blood cultures are negative -ID is following and has recommended Zosyn for another 7 days via IV after discharge -Will need outpatient podiatry follow-up PAD -Patient underwent angiogram with runoff yesterday and patient does have significant vascular disease however none is amenable to endovascular treatment -Await further vascular input -Continue aspirin and Plavix -Continue risk factor modification with atorvastatin CKD stage IV/renal mass -Previous MRI showed abnormal mole kidney -Plan is for outpatient follow-up ultrasound per nephrology documentation -Renal function is stable -Stovall has been discontinued -Nephrology consulted and appreciate input HFrEF -Last echo from 04/2022 showed segmental systolic dysfunction with EF of 50% -Continue monitoring daily weights -I's and O's -Continue beta-hernán -Hold Lasix until okay to restart per nephrology DM-2/diabetic neuropathy -Continue home Neurontin -A1c is 7.9 -Continue Lantus 10 units twice daily with improving renal function -Continue SSI -Continue monitoring GERD -Continue home PPI CAD/HTN/HPL -Continue home aspirin and Plavix -Continue on beta-hernán -Continue home statin -Continue home hydralazine Chronic anemia secondary to renal disease -Normocytic -Hemoglobin is stable next-continue to monitor -Continue home supplemental iron Depression -Continue home escitalopram -Continue home trazodone Cognitive impairment -Highly suspect vascular related with history -Will add low-dose risperidone 0.5 mg at at bedtime to help with sundowning Debility -Plan is for skilled placement at discharge -Patient has been accepted at [facility] and pre-CERT is pending DVT prophylaxis -Start subcu heparin 3 times daily CODE STATUS -Full code is verified admission Charges/Coding Visit Charges Inpatient E&M: 01510 Subs Hosp L2
[2023-12-12 18:54] LABS: Bedside Glucose 202 mg/dL (74-106)
[2023-12-12] MEDS: Atorvastatin Calcium 80 MG Tablet PO (21:54)
[2023-12-12] MEDS: MELATONIN 10 MG TABLET PO (21:54)
[2023-12-12] MEDS: Gabapentin 100 MG Capsule PO (21:55)
[2023-12-12] MEDS: Heparin Injection (Vial) 5,000 UNIT/ML VIAL 5000 UNIT SC (21:55)
[2023-12-12] MEDS: RisperiDONE 0.5 MG Tablet PO (21:55)
[2023-12-12] MEDS: 0.9% Normal Saline (250mL Bag) 250 ML 15 ML IV (21:56)
[2023-12-12] MEDS: oxyCODONE 5 MG Tablet PO (22:19)
[2023-12-13 00:05] LABS: Bedside Glucose 224 mg/dL (74-106)
[2023-12-13 05:45] VITALS: BP 116/55; PULSE 73; RESP 16; TEMP 36.8; O2SAT 98
[2023-12-13 06:00] VITALS: BMI 24.5
[2023-12-13 07:11] LABS: Bedside Glucose 98 mg/dL (74-106)
[2023-12-13 08:17] LABS: Absolute Lymphocyte Count 1.82 X10^3/uL (0.83-4.51); Basophil# 0.03 X10^3/uL; Basophil% 0.3 % (0-1); Eosinophil# 0.11 X10^3/uL; Hematocrit 26.7 % (40-54); Hemoglobin 8.6 g/dL (13.0-16.5); Lymphocyte # 1.82 X10^3/ul (0.83-4.51); Lymphocyte % 16.3 % (19-41); Mean Corp Hgb Conc 32.2 g/dL (32-36); Mean Corpuscular Hgb 28.6 pg (27.0-32.0); Mean Corpuscular Volume 88.7 fL (80-94); Mean Platelet Vol. 10.6 fl (6.2-12.0); Monocyte# 2.04 X10^3/uL; Monocyte% 18.3 % (0-10); NRBC Flagged by Analyzer 0 % (0-5); Neutrophil # 6.98 X10^3/uL (2.7-7.7); Neutrophil % 62.4 % (47-70); POSITIVE DIFFERENTIAL YES; Platelet Count 294 K/mm3 (150-450); RBC Distribution Width SD 45.2 fl (35.1-43.9); Red Blood Count 3.01 M/mm3 (4.6-6.2); White Blood Count 11.2 K/mm3 (4.4-11.0)
[2023-12-13 08:24] LABS: Differential Indicated SCAN CRITERIA MET
[2023-12-13 08:52] LABS: Anion Gap 7 (5-15); BUN 67 mg/dL (7-18); BUN/Creat Ratio 25.4 RATIO (10-20); Calcium,Total 8.7 mg/dL (8.5-10.1); Chloride 112 mmol/L (98-107); Creatinine, Serum 2.64 mg/dL (0.70-1.30); EST Glomerular Filtration Rate 25 mL/min (>60); Est Glom Filt Rate - Afr Amer 30 mL/min (>60); Estimated Creatinine Clearance 17.96 ml/min; Glucose 97 mg/dL (74-106); Potassium 3.6 mmol/L (3.5-5.1); Sodium Level 139 mmol/L (136-145)
--- NOTE | 2023-12-13 08:58 | CASEMGMT ---
Addendum entered by Rachelle Arreola 12/13/23 10:44: LILLIAN updated [facility] patient will definitely be at [facility] for a procedure. Plan: d/c to [facility] when medically ready and insurance approves. Rachelle BARBOUR Original Note: Per physician patient may need to stay at [facility] until Sunday for a procedure. LILLIAN did let [facility] know, but asked that they not cancel the request for pre-cert in the event something changes. Rachelle BARBOUR
[2023-12-13 09:30] VITALS: BP 106/89; PULSE 80; RESP 18; TEMP 37; O2SAT 92
[2023-12-13] MEDS: Piperacil/Tazobactam 3.375 GM in 0.9% Normal Saline (50mL MB+) 50 ML IV ×2 (09:31→21:34)
[2023-12-13] MEDS: Heparin Injection (Vial) 5,000 UNIT/ML VIAL 5000 UNIT SC ×2 (09:34→21:36)
[2023-12-13] MEDS: Carvedilol 12.5 MG Tablet PO ×2 (09:34→21:35)
[2023-12-13] MEDS: Senna/Docusate Sodium 1 Tablet 2 TABLET PO (09:35)
[2023-12-13] MEDS: Juven (unflavored) Packet 1 PACKET PO ×2 (09:35→16:21)
[2023-12-13] MEDS: Polyethylene Glycol 3350 17 GM PACKET PO (09:35)
[2023-12-13] MEDS: Escitalopram Oxalate 20 MG Tablet PO (09:35)
[2023-12-13] MEDS: Aspirin 81 MG TAB.CHEW PO (09:35)
[2023-12-13] MEDS: Pantoprazole Sodium 40 MG Tablet PO (09:35)
[2023-12-13] MEDS: Clopidogrel Bisulfate 75 MG Tablet PO (09:35)
[2023-12-13] MEDS: Ferrous Sulfate 325 MG Tablet PO (09:35)
[2023-12-13] MEDS: Menthol/Lanolin/Calamine/Znox 113 GM Tube 1 APPLIC TOPICAL ×2 (09:38→21:35)
--- NOTE | 2023-12-13 11:04 | PN.RENAL_ITS ---
Subjective Subjective Resting in bed, no overnight events. Objective Data Objective Data Vital Signs: Vital Signs Temp Pulse Resp BP Pulse Ox O2 Del Method O2 Flow Rate 98.6 F 80 18 106/89 H 92 Room Air 2 12/13/23 09:30 12/13/23 09:30 12/13/23 09:30 12/13/23 09:30 12/13/23 09:30 12/13/23 09:30 12/07/23 16:39 Oxygen Flow Rate (L/min) 2 Oxygen Delivery Method Room Air Weight: 62.9 kg Body Mass Index (BMI) 24.5 Intake & Output: Intake and Output for Last 24 Hours 12/11/23 12/12/23 12/13/23 23:59 23:59 23:59 Intake Total 250 / 250 340 / 360 70 / 70 Output Total 850 / 850 Balance -600 / -600 340 / 360 70 / 70 Lab / Micro Data 12/13/23 07:00 12/13/23 07:00 Labs: Laboratory Results - last 24 hr 12/11/23 06:41: Diff Path Review Reviewed 12/12/23 11:02: POC Glucose 236 H 12/12/23 17:43: POC Glucose 202 H 12/12/23 21:51: POC Glucose 224 H 12/13/23 06:54: POC Glucose 98 12/13/23 07:00: WBC 11.2 H, RBC 3.01 L, Hgb 8.6 L, Hct 26.7 L, MCV 88.7, MCH 28.6, MCHC 32.2, RDW Std Deviation 45.2 H, RDW Coeff of Milad 14.0, Plt Count 294, MPV 10.6, Immature Gran % (Auto) 1.700 H, Neut % (Auto) 62.4, Lymph % (Auto) 16.3 L, [place] % (Auto) 18.3 H, Eos % (Auto) 1.0, Baso % (Auto) 0.3, Absolute Neuts (auto) 7.0, Absolute Lymphs (auto) 1.82, Nucleated RBC % 0, Sodium 139, Potassium 3.6, Chloride 112 H, Carbon Dioxide 20.0 L, Anion Gap 7, BUN 67 H, Creatinine 2.64 H, Estim Creat Clear Calc 17.96, Est GFR (MDRD) Af Amer 30 L, Est GFR (MDRD) Non-Af 25 L, BUN/Creatinine Ratio 25.4 H, Glucose 97, Calcium 8.7 Micro: Microbiology 12/07/23 13:30 Tissue - 5th Toe Gram Stain - Final 12/07/23 13:30 Tissue - 5th Toe Wound Culture - Final Klebsiella pneumoniae sp pneum Enterococcus faecalis Corynebacterium amycolatum Pseudomonas aeruginosa 12/07/23 13:30 Tissue - 5th Toe Anaerobic Culture - Final Bacteroides fragilis Anaerobic cocci 12/06/23 11:50 Blood Culture (Wb) - Right Hand Blood Culture - Final No growth in 5 days. 12/06/23 11:45 Blood Culture (Wb) - Left Wrist Blood Culture - Final No growth in 5 days. Radiography Diagnostic Testing: Radiology Impression Saphenous Venous Mapping 12/11/23 16:04 Interpretation Summary Right great saphenous, small saphenous, and accessory saphenous veins patent with measurements above. Ordering Physician: Kaylyn Burns Referring Physician: Elvia Cobian Performed By: Heidi Menezes RVT Physical Exam Narrative Alert awake oriented x 3 no obvious distress s1s2 no murmurs lungs clear abdomen soft no edema Assessment & Plan Assessment/Plan (1) Chronic renal failure, stage 4 (severe): PLAN: Impression/Plan: The patient is a 78-year-old man with past history of type 2 diabetes mellitus, hypertension, PAD, HFrEF, iron deficiency anemia, and hyperlipidemia. The patient presented to hospital with right foot wound. The patient is being treated for right diabetic foot ulcer/cellulitis with concern for osteomyelitis. Nephrology is following for MOISÉS on CKD. Acute kidney injury on chronic kidney disease stage G4. Last known lab is from 12/05/2022 SCr 2.26 mg/dL. Reviewed past labs from 2017 to 2022 patient has had fluctuating serum creatinines (~2.3-2.6) but baseline is possibly ranging around 2.5 mg/dL. Serum creatinine increased from 2.26 mg/dL on 12/05/2023 up to 3.03 mg/dL on 12/08/2023. Today SCr 2.6mg/dL. The patient is not oliguric. He appears near euvolemic. Bps acceptable. microalbumin/creat ratio 126.9mg/g 07/2022. Reviewed old imaging. He had an MRI in 2019 which showed a possible renal tumor. Repeat renal ultrasound as outpatient -right diabetic foot infection/osteo s/p partial fifth ray amputation of right foot. Antibiotics per ID, Zosyn - patient to follow-up with nephrology after discharge.
[2023-12-13] MEDS: Insulin Lispro 100 UNIT/ML INSULN.PEN SC ×3 (11:32→21:43)
[2023-12-13] MEDS: Acetaminophen 325 MG Tablet 650 MG PO (11:39)
[2023-12-13 11:54] LABS: Bedside Glucose 191 mg/dL (74-106)
--- NOTE | 2023-12-13 13:33 | PCM.CONS.C ---
Assessment & Plan Assessment/Plan (1) Preoperative cardiovascular examination: PLAN: No further cardiac workup is recommended at this time prior to femoropopliteal bypass grafting. Patient is at low to moderate risk of perioperative cardiac complications. HPI Consult Data Date of Consult: 12/13/23 HPI Narrative Reason for Consultation: Preoperative evaluation HPI Narrative: TAM BUSTOS, is a 78 M who presents with right foot wound. He was found to have severe peripheral vascular disease and it was felt that femoropopliteal grafting may be a better option than percutaneous intervention. Cardiology consult was requested for preoperative evaluation for femoropopliteal bypass. Patient has history of coronary artery disease status post CABG in 2013 (FULTON to LAD, SVG to OM, SVG to PDA). Coronary angiography in 2018 revealed patent 2 out of 3 bypass grafts (SVG to PDA was occluded) with collateral flow to the RCA. EF at that time was 15%. Subsequent echo in 2021 revealed an EF of 40%. Patient was seen in the cardiology clinic around April of last year and was doing well at that time. He currently denies any cardiac complaints. He can go down to the basement and come up stairs without any chest pain or significant shortness of breath. [facility] Medical History Anemia Anemia of chronic renal failure, stage 4 (severe) Anxiety Atherosclerosis of coronary artery bypass graft without angina pectoris Atherosclerosis of [place] artery of lower extremity with ulceration of foot Bilateral pleural effusion Callus of foot Cellulitis of left lower limb Chronic HFrEF (heart failure with reduced ejection fraction) Chronic renal failure, stage 4 (severe) Claudication of both lower extremities Congestive heart failure (CHF) Delayed wound healing Dermatitis of left foot Dermatomycosis of foot Diabetes Diabetes mellitus type 2 in nonobese Diabetes mellitus with neuropathy Diabetic foot ulcer associated with diabetes mellitus due to underlying condition Elevated PSA, between 10 and less than 20 ng/ml Eschar of foot Essential (primary) hypertension GERD (gastroesophageal reflux disease) Hammertoe of left foot HLD (hyperlipidemia) Hypertension Hypokalemia Incarcerated right inguinal hernia Ischemic cardiomyopathy Malnutrition Mass of right breast Non-pressure chronic ulcer of other part of left foot with fat layer exposed Non-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 Osteomyelitis Peripheral vascular disease Peripheral vascular occlusive disease Restless legs Right bundle branch block (RBBB) Secondary pulmonary arterial hypertension Tailor's bunion of left foot Type 2 diabetes mellitus Ulcer of left foot with fat layer exposed 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 Ulcer of left foot with necrosis of muscle Xerosis cutis Home Medications aspirin 81 mg chewable tablet 81 mg PO DAILY@0800 [facility] 09/29/14 [History Last Taken 02/03/21 06:00] pantoprazole 40 mg tablet,delayed release 40 mg PO DAILY acid reflux 30 days #30 tabs 02/07/18 [History Last Taken 02/04/21 06:00] ferrous sulfate 325 mg (65 mg iron) tablet 325 mg PO DAILY@1200 iron supplement 03/19/19 [History Last Taken 05/26/19] trazodone 50 mg tablet 50 mg PO QHS PRN Sleep 09/22/20 [History Last Taken Unknown] gabapentin 100 mg capsule 100 mg PO QHS 12/22/20 [History Last Taken Unknown] escitalopram oxalate 20 mg tablet 20 mg PO DAILY 03/29/22 [History Last Taken Unknown] carvedilol 12.5 mg tablet 12.5 mg PO BID #180 tabs 04/23/23 [Rx Last Taken Unknown] furosemide 20 mg tablet 60 mg (3 x 20 mg) PO DAILY 90 days #270 tabs 04/23/23 [Rx Last Taken Unknown] clopidogrel 75 mg tablet 75 mg PO DAILY #90 tabs 07/23/23 [Rx Last Taken Unknown] insulin glargine 100 unit/mL (3 mL) subcutaneous pen 15 unit subcut BID 12/04/23 [History Last Taken Unknown] insulin lispro 100 unit/mL subcutaneous solution (Humalog U-100 Insulin) 1 sliding scale dose subcut DAILY DIABETES 12/04/23 [History Last Taken Unknown] atorvastatin 80 mg tablet 80 mg PO QHS cholesterol 12/06/23 [History Last Taken Unknown] hydralazine 25 mg tablet 25 mg PO TID PRN anxiety 12/06/23 [History Last Taken Unknown] piperacillin-tazobactam 3.375 gram/50 mL dextrose(iso-os) IV piggyback (Zosyn) 3.375 g (56.25 mL) IV Q12H 7 days 12/12/23 [Rx Last Taken Unknown] Allergy/AdvReac Type Severity Reaction Status Date / Time atorvastatin [From Lipitor] AdvReac Mild myalgias Verified 12/06/23 11:14 Family History Brother CAD (coronary artery disease) Hx CABG Surgical History Amputated toe of left foot (01/2021) H/O coronary artery bypass surgery (04/30/14) History of angioplasty of peripheral vessel (01/20/21) History of inguinal hernia repair History of left heart catheterization (LHC) (03/20/19) History of right breast biopsy (03/2021) History of right inguinal hernia repair (03/2018) History of thoracentesis Social History Smoking Status: Never smoker alcohol intake: never substance use type: does not use caffeine: No what type of physical activity do you participate in: none seatbelt use: always do you feel safe at home: Yes Physical Exam Const alert and oriented x3 HEENT normocephalic Eyes no scleral icterus Resp normal respiratory effort and clear to auscultation bilaterally Risk Stratification Risk Stratification Applicable: No Charges/Coding Visit Charges Inpatient E&M: 31017 Subs Hosp L2 Objective Data Vital Signs: Vital Signs Temp Pulse Resp BP Pulse Ox O2 Del Method O2 Flow Rate 98.6 F 80 18 106/89 H 92 Room Air 2 12/13/23 09:30 12/13/23 09:30 12/13/23 09:30 12/13/23 09:30 12/13/23 09:30 12/13/23 09:30 12/07/23 16:39 Oxygen Flow Rate (L/min) 2 Oxygen Delivery Method Room Air Weight: 138 lb 10.732 oz Body Mass Index (BMI) 24.5 Intake & Output: Intake and Output for Last 24 Hours 12/11/23 12/12/23 12/13/23 23:59 23:59 23:59 Intake Total 250 / 250 340 / 360 190 / 190 Output Total 850 / 850 Balance -600 / -600 340 / 360 190 / 190 Lab / Micro Data 12/13/23 07:00 12/13/23 07:00 Labs: Laboratory Results - last 24 hr 12/11/23 06:41: Diff Path Review Reviewed 12/12/23 17:43: POC Glucose 202 H 12/12/23 21:51: POC Glucose 224 H 12/13/23 06:54: POC Glucose 98 12/13/23 07:00: WBC 11.2 H, RBC 3.01 L, Hgb 8.6 L, Hct 26.7 L, MCV 88.7, MCH 28.6, MCHC 32.2, RDW Std Deviation 45.2 H, RDW Coeff of Milad 14.0, Plt Count 294, MPV 10.6, Immature Gran % (Auto) 1.700 H, Neut % (Auto) 62.4, Lymph % (Auto) 16.3 L, Cameron % (Auto) 18.3 H, Eos % (Auto) 1.0, Baso % (Auto) 0.3, Absolute Neuts (auto) 7.0, Absolute Lymphs (auto) 1.82, Nucleated RBC % 0, Sodium 139, Potassium 3.6, Chloride 112 H, Carbon Dioxide 20.0 L, Anion Gap 7, BUN 67 H, Creatinine 2.64 H, Estim Creat Clear Calc 17.96, Est GFR (MDRD) Af Amer 30 L, Est GFR (MDRD) Non-Af 25 L, BUN/Creatinine Ratio 25.4 H, Glucose 97, Calcium 8.7 12/13/23 11:08: POC Glucose 191 H Micro: Microbiology 12/07/23 13:30 Tissue - 5th Toe Gram Stain - Final 12/07/23 13:30 Tissue - 5th Toe Wound Culture - Final Klebsiella pneumoniae sp pneum Enterococcus faecalis Corynebacterium amycolatum Pseudomonas aeruginosa 12/07/23 13:30 Tissue - 5th Toe Anaerobic Culture - Final Bacteroides fragilis Anaerobic cocci Cardiology Labs/Tests 12/13/23 07:00: WBC 11.2 H, RBC 3.01 L, Hgb 8.6 L, Hct 26.7 L, MCV 88.7, MCH 28.6, MCHC 32.2, Plt Count 294, MPV 10.6, Immature Gran % (Auto) 1.700 H, Neut % (Auto) 62.4, Lymph % (Auto) 16.3 L, Cameron % (Auto) 18.3 H, Eos % (Auto) 1.0, Baso % (Auto) 0.3, Absolute Neuts (auto) 7.0, Nucleated RBC % 0, Sodium 139, Potassium 3.6, Chloride 112 H, Carbon Dioxide 20.0 L, Anion Gap 7, BUN 67 H, Creatinine 2.64 H, Est GFR (MDRD) Af Amer 30 L, Est GFR (MDRD) Non-Af 25 L, BUN/Creatinine Ratio 25.4 H, Glucose 97, Calcium 8.7 Rhythm: EKG: ECHO: Stress Test: Cardiac Cath: PCI: CT Surgery: Holter monitor: EPS: PPM: CXR: Chest CT Scan: Radiography Diagnostic Testing: Radiology Impression Saphenous Venous Mapping 12/11/23 16:04 Interpretation Summary Right great saphenous, small saphenous, and accessory saphenous veins patent with measurements above. Ordering Physician: Kaylyn Burns Referring Physician: Elvia Cobian Performed By: Heidi Menezes RVT
[2023-12-13 15:30] VITALS: BP 91/41; PULSE 67; RESP 18; TEMP 36.6; O2SAT 96
--- NOTE | 2023-12-13 16:16 | PCM.PN.HOSP ---
Reason for Visit Reason for Visit: Right foot wound Subjective Subjective No issues overnight however the plan has changed as vascular surgery would like to proceed with an open femoropopliteal bypass on Sunday. Vascular surgery PA was in the room at the time of my evaluation talking to the family about surgical plans. Objective Data Objective Data Vital Signs: Vital Signs Temp Pulse Resp BP Pulse Ox O2 Del Method O2 Flow Rate 97.8 F 67 18 91/41 L 96 Room Air 2 12/13/23 15:30 12/13/23 15:30 12/13/23 15:30 12/13/23 15:30 12/13/23 15:30 12/13/23 15:30 12/07/23 16:39 Oxygen Flow Rate (L/min) 2 Oxygen Delivery Method Room Air Weight: 62.9 kg Body Mass Index (BMI) 24.5 Intake & Output: Intake and Output for Last 24 Hours 12/11/23 12/12/23 12/13/23 23:59 23:59 23:59 Intake Total 250 / 250 340 / 360 1490 / 1490 Output Total 850 / 850 Balance -600 / -600 340 / 360 1490 / 1490 Lab / Micro Data 12/13/23 07:00 12/13/23 07:00 Labs: Laboratory Results - last 24 hr 12/12/23 17:43: POC Glucose 202 H 12/12/23 21:51: POC Glucose 224 H 12/13/23 06:54: POC Glucose 98 12/13/23 07:00: WBC 11.2 H, RBC 3.01 L, Hgb 8.6 L, Hct 26.7 L, MCV 88.7, MCH 28.6, MCHC 32.2, RDW Std Deviation 45.2 H, RDW Coeff of Milad 14.0, Plt Count 294, MPV 10.6, Immature Gran % (Auto) 1.700 H, Neut % (Auto) 62.4, Lymph % (Auto) 16.3 L, [place] % (Auto) 18.3 H, Eos % (Auto) 1.0, Baso % (Auto) 0.3, Absolute Neuts (auto) 7.0, Absolute Lymphs (auto) 1.82, Nucleated RBC % 0, Sodium 139, Potassium 3.6, Chloride 112 H, Carbon Dioxide 20.0 L, Anion Gap 7, BUN 67 H, Creatinine 2.64 H, Estim Creat Clear Calc 17.96, Est GFR (MDRD) Af Amer 30 L, Est GFR (MDRD) Non-Af 25 L, BUN/Creatinine Ratio 25.4 H, Glucose 97, Calcium 8.7 12/13/23 11:08: POC Glucose 191 H Micro: Microbiology 12/07/23 13:30 Tissue - 5th Toe Gram Stain - Final 12/07/23 13:30 Tissue - 5th Toe Wound Culture - Final Klebsiella pneumoniae sp pneum Enterococcus faecalis Corynebacterium amycolatum Pseudomonas aeruginosa 12/07/23 13:30 Tissue - 5th Toe Anaerobic Culture - Final Bacteroides fragilis Anaerobic cocci 12/06/23 11:50 Blood Culture (Wb) - Right Hand Blood Culture - Final No growth in 5 days. 12/06/23 11:45 Blood Culture (Wb) - Left Wrist Blood Culture - Final No growth in 5 days. Radiography Diagnostic Testing: Radiology Impression Saphenous Venous Mapping 12/11/23 16:04 Interpretation Summary Right great saphenous, small saphenous, and accessory saphenous veins patent with measurements above. Ordering Physician: Kaylyn Burns Referring Physician: Elvia Cobian Performed By: Heidi Menezes RVT Physical Exam Const alert, no apparent distress, average body habitus and well nourished Constitutional Narrative: Elderly, white male, sitting up in a chair, oriented to self and place but not time, appears comfortable and nontoxic, at bedside HEENT head/scalp atraumatic and moist oral mucous membranes Resp normal respiratory effort, no retractions, no use of accessory muscles and clear to auscultation bilaterally Auscultation: Negative for crackles, rales, rhonchi or wheezes Cardio regular rate, regular rhythm, S1 normal heart sound, S2 normal heart sound, no murmurs, no rub, no gallops and no clicks GI normal to inspection, nondistended, normoactive bowel sounds, soft to palpation and non-tender Extremity no clubbing, cyanosis or edema Extremity Narrative: Cap refill is 1+ right lower extremity, postoperative dressing in place on right lower extremity Neuro moves all extremities and no focal motor deficits Neuro Narrative: Generalized weakness noted with proximal musculature being weaker than distal Sensorium / Orientation: awake, alert, oriented to person and oriented to place Psych affect normal Psych Narrative: Eye contact is good, patient interacts appropriately Assessment & Plan Assessment/Plan (1) Diabetes mellitus with diabetic polyneuropathy: (2) Osteomyelitis: (3) Diabetic foot ulcer: (4) PVD (peripheral vascular disease) with claudication: PLAN: Plan Right diabetic foot infection/osteomyelitis -Postop day 6 partial fifth ray amputation of right foot, partial fourth metatarsal amputation, incision of bone cortex and wide debridement of necrotic tissue in right foot and skin flap right foot -Cultures are currently showing Klebsiella, Enterococcus, corynebacterium, Pseudomonas, Bacteroides, and another ANNITA aerobic cocci -Blood cultures are negative -ID is following and has recommended Zosyn for another 7 days via IV after discharge however plan is for surgery on Sunday with vascular -Will need outpatient podiatry follow-up PAD -Patient underwent angiogram with runoff yesterday and patient does have significant vascular disease however none is amenable to endovascular treatment -Plan is for femoropopliteal bypass open on Sunday -Continue aspirin and Plavix -Continue risk factor modification with atorvastatin CKD stage IV/renal mass -Previous MRI showed abnormal kidney -Plan is for outpatient follow-up ultrasound per nephrology documentation -Renal function is stable -Nephrology consulted and appreciate input Acute anemia -Hemoglobin on admission was 11.7 but seems to be stabilizing -will continue to follow -Check iron studies with acute anemia HFrEF -Last echo from 04/2022 showed segmental systolic dysfunction with EF of 50% -Continue monitoring daily weights -I's and O's -Continue beta-hernán -Hold Lasix until okay to restart per nephrology DM-2/diabetic neuropathy -Continue home Neurontin -A1c is 7.9 -Continue Lantus 10 units twice daily with stable renal function -AM fasting blood sugar was 97 -Continue SSI -Continue monitoring GERD -Continue home PPI CAD/HTN/HPL -Continue home aspirin and Plavix -Continue on beta-hernán -Continue home statin -Continue home hydralazine Chronic anemia secondary to renal disease -Normocytic -Hemoglobin is stable next-continue to monitor -Continue home supplemental iron Depression -Continue home escitalopram -Continue home trazodone Cognitive impairment -Highly suspect vascular related with history -Will add low-dose risperidone 0.5 mg at at bedtime to help with sundowning Debility -Plan is for skilled placement at discharge -Patient has been accepted at [facility] and pre-CERT is pending DVT prophylaxis -Start subcu heparin 3 times daily CODE STATUS -Full code is verified admission Charges/Coding Visit Charges Inpatient E&M: 20441 Subs Hosp L2
--- NOTE | 2023-12-13 16:39 | PN.SURG_ITS ---
Subjective Subjective Patient was seen resting comfortably in bed with his at bedside. He is reporting minimal discomfort in his RLE. Objective Data Objective Data Vital Signs: Vital Signs Temp Pulse Resp BP Pulse Ox O2 Del Method O2 Flow Rate 97.8 F 67 18 91/41 L 96 Room Air 2 12/13/23 15:30 12/13/23 15:30 12/13/23 15:30 12/13/23 15:30 12/13/23 15:30 12/13/23 15:30 12/07/23 16:39 Oxygen Flow Rate (L/min) 2 Oxygen Delivery Method Room Air Weight: 138 lb 10.732 oz Body Mass Index (BMI) 24.5 Intake & Output: Intake and Output for Last 24 Hours 12/11/23 12/12/23 12/13/23 23:59 23:59 23:59 Intake Total 250 / 250 340 / 360 1490 / 1490 Output Total 850 / 850 Balance -600 / -600 340 / 360 1490 / 1490 Lab / Micro Data 12/13/23 07:00 12/13/23 07:00 Labs: Laboratory Results - last 24 hr 12/12/23 17:43: POC Glucose 202 H 12/12/23 21:51: POC Glucose 224 H 12/13/23 06:54: POC Glucose 98 12/13/23 07:00: WBC 11.2 H, RBC 3.01 L, Hgb 8.6 L, Hct 26.7 L, MCV 88.7, MCH 28.6, MCHC 32.2, RDW Std Deviation 45.2 H, RDW Coeff of Milad 14.0, Plt Count 294, MPV 10.6, Immature Gran % (Auto) 1.700 H, Neut % (Auto) 62.4, Lymph % (Auto) 16.3 L, [place] % (Auto) 18.3 H, Eos % (Auto) 1.0, Baso % (Auto) 0.3, Absolute Neuts (auto) 7.0, Absolute Lymphs (auto) 1.82, Nucleated RBC % 0, Sodium 139, Potassium 3.6, Chloride 112 H, Carbon Dioxide 20.0 L, Anion Gap 7, BUN 67 H, Creatinine 2.64 H, Estim Creat Clear Calc 17.96, Est GFR (MDRD) Af Amer 30 L, Est GFR (MDRD) Non-Af 25 L, BUN/Creatinine Ratio 25.4 H, Glucose 97, Calcium 8.7 12/13/23 11:08: POC Glucose 191 H Micro: Microbiology 12/07/23 13:30 Tissue - 5th Toe Gram Stain - Final 12/07/23 13:30 Tissue - 5th Toe Wound Culture - Final Klebsiella pneumoniae sp pneum Enterococcus faecalis Corynebacterium amycolatum Pseudomonas aeruginosa 12/07/23 13:30 Tissue - 5th Toe Anaerobic Culture - Final Bacteroides fragilis Anaerobic cocci 12/06/23 11:50 Blood Culture (Wb) - Right Hand Blood Culture - Final No growth in 5 days. 12/06/23 11:45 Blood Culture (Wb) - Left Wrist Blood Culture - Final No growth in 5 days. Radiography Diagnostic Testing: Radiology Impression Saphenous Venous Mapping 12/11/23 16:04 Interpretation Summary Right great saphenous, small saphenous, and accessory saphenous veins patent with measurements above. Ordering Physician: Kaylyn Burns Referring Physician: Elvia Cobian Performed By: Heidi Menezes RVT Physical Exam Const alert and no apparent distress General Appearance: cooperative and comfortable HEENT normocephalic, head/scalp atraumatic, hearing grossly normal bilaterally, external ears normal and external nose normal Eyes EOMs intact bilaterally General Eye: normal appearance of both eyes Neck General: normal visual inspection and trachea midline Resp normal respiratory effort, no retractions and no use of accessory muscles Effort and Inspection: able to speak in complete sentences; Negative for labored, stridor or audible wheezes Cardio regular rate and regular rhythm Extremity Extremity Narrative: L groin access site with mild ecchymosis, minimal bloody drainage noted on dry dressing. No significant swelling. R foot dressings C/D/I Skin Wounds: wounds noted Neuro CN's II-XII intact bilaterally, moves all extremities, no focal motor deficits and no sensory deficits noted Assessment & Plan Assessment/Plan (1) Atherosclerosis of [place] artery of lower extremity with ulceration of foot: (2) Diabetic foot ulcer: PLAN: Plan Patient is s/p RLE angiogram on 12/11/23 which revealed diffuse calcified atherosclerotic disease throughout the SFA, popliteal, anterior tibial, and peroneal arteries with PT as the dominant vessel into the foot. Unfortunately, this disease was not amenable to endovascular intervention. Will require an open femoral to PT bypass to improve inflow and healing potential. Vein mapping did not reveal any vein suitable for use in bypass so planning to utilize cadaver. With at bedside, discussed with both her and the patient the recommendation for fem-PT bypass. We discussed the risks, benefits, and recovery of this procedure. They understand and are agreeable to proceed at this time. Appreciate cardiology input and they have cleared patient for surgery. He is scheduled for surgery on Sunday12/17/2023. No need to hold ASA or Plavix for surgery, please continue.
[2023-12-13 16:46] LABS: Bedside Glucose 202 mg/dL (74-106)
[2023-12-13 21:30] VITALS: BP 144/76; PULSE 87; RESP 16; TEMP 36.6; O2SAT 96
[2023-12-13] MEDS: RisperiDONE 0.5 MG Tablet PO (21:35)
[2023-12-13] MEDS: MELATONIN 10 MG TABLET PO (21:35)
[2023-12-13] MEDS: traZODone 50 MG Tablet PO (21:35)
[2023-12-13] MEDS: Atorvastatin Calcium 80 MG Tablet PO (21:35)
[2023-12-13] MEDS: Gabapentin 100 MG Capsule PO (21:35)
[2023-12-13] MEDS: Insulin Glargine-YFGN 100 UNIT/ML Pen 10 UNIT SC (21:37)
[2023-12-13 22:21] LABS: Bedside Glucose 187 mg/dL (74-106)
[2023-12-14] MEDS: oxyCODONE 5 MG Tablet PO ×2 (00:25→22:50)
[2023-12-14] MEDS: 0.9% Saline Lock 10 ML Syringe IV ×2 (00:26→09:22)
[2023-12-14] MEDS: Ondansetron 4 MG/2 ML Vial IV (00:26)
[2023-12-14 03:30] VITALS: BP 100/65; PULSE 76; RESP 16; TEMP 36.9; O2SAT 95
[2023-12-14 06:00] VITALS: BMI 24.5
[2023-12-14 07:11] LABS: Bedside Glucose 140 mg/dL (74-106)
[2023-12-14 07:43] LABS: Absolute Lymphocyte Count 2.02 X10^3/uL (0.83-4.51); Basophil# 0.04 X10^3/uL; Basophil% 0.4 % (0-1); Eosinophil# 0.06 X10^3/uL; Eosinophils% 0.6 % (0-5); Hematocrit 25.2 % (40-54); Lymphocyte # 2.02 X10^3/ul (0.83-4.51); Lymphocyte % 18.6 % (19-41); Mean Corp Hgb Conc 31.7 g/dL (32-36); Mean Corpuscular Hgb 28.1 pg (27.0-32.0); Mean Corpuscular Volume 88.4 fL (80-94); Mean Platelet Vol. 10.4 fl (6.2-12.0); Monocyte# 1.53 X10^3/uL; Monocyte% 14.1 % (0-10); NRBC Flagged by Analyzer 0 % (0-5); Neutrophil # 7.01 X10^3/uL (2.7-7.7); Neutrophil % 64.5 % (47-70); POSITIVE DIFFERENTIAL YES; Platelet Count 292 K/mm3 (150-450); RBC Distribution Width CV 14.2 % (11.6-14.6); Red Blood Count 2.85 M/mm3 (4.6-6.2); White Blood Count 10.9 K/mm3 (4.4-11.0)
[2023-12-14 07:47] LABS: Differential Indicated SCAN CRITERIA MET
[2023-12-14 08:24] LABS: Anion Gap 5 (5-15); BUN 71 mg/dL (7-18); BUN/Creat Ratio 25.9 RATIO (10-20); Calcium,Total 8.5 mg/dL (8.5-10.1); Chloride 113 mmol/L (98-107); Creatinine, Serum 2.74 mg/dL (0.70-1.30); EST Glomerular Filtration Rate 24 mL/min (>60); Est Glom Filt Rate - Afr Amer 29 mL/min (>60); Estimated Creatinine Clearance 17.31 ml/min; Ferritin 1082 ng/mL (26-388); Glucose 135 mg/dL (74-106); Iron 14 ug/dL (65-175); Iron Binding Capacity,Total 179 ug/dL (250-450); PERCENT IRON SATURATION 7.8 % (15.0-55.0); Potassium 4.2 mmol/L (3.5-5.1); Sodium Level 138 mmol/L (136-145)
[2023-12-14 08:45] LABS: Differential Comment SCANNED
[2023-12-14 09:05] VITALS: BP 123/55; PULSE 69; RESP 18; TEMP 36.7; O2SAT 92
[2023-12-14] MEDS: Ferrous Sulfate 325 MG Tablet PO (09:08)
[2023-12-14] MEDS: Pantoprazole Sodium 40 MG Tablet PO (09:08)
[2023-12-14] MEDS: Escitalopram Oxalate 20 MG Tablet PO (09:08)
[2023-12-14] MEDS: Menthol/Lanolin/Calamine/Znox 113 GM Tube 1 APPLIC TOPICAL ×2 (09:08→22:44)
[2023-12-14] MEDS: Carvedilol 12.5 MG Tablet PO ×2 (09:08→22:45)
[2023-12-14] MEDS: Clopidogrel Bisulfate 75 MG Tablet PO (09:08)
[2023-12-14] MEDS: Aspirin 81 MG TAB.CHEW PO (09:08)
[2023-12-14] MEDS: Juven (unflavored) Packet 1 PACKET PO ×2 (09:08→16:11)
[2023-12-14] MEDS: Insulin Glargine-YFGN 100 UNIT/ML Pen 10 UNIT SC ×2 (09:14→22:45)
[2023-12-14] MEDS: Heparin Injection (Vial) 5,000 UNIT/ML VIAL 5000 UNIT SC ×2 (09:16→22:45)
[2023-12-14] MEDS: Piperacil/Tazobactam 3.375 GM in 0.9% Normal Saline (50mL MB+) 50 ML IV ×2 (09:55→22:55)
[2023-12-14] MEDS: Insulin Lispro 100 UNIT/ML INSULN.PEN SC ×3 (11:23→22:54)
[2023-12-14 11:43] LABS: Bedside Glucose 196 mg/dL (74-106)
--- NOTE | 2023-12-14 14:10 | WOUNDNOTE ---
wound photo: right foot
--- NOTE | 2023-12-14 14:11 | WOUNDNOTE ---
wound photo: right foot
[2023-12-14 15:05] VITALS: BP 111/46; PULSE 64; RESP 16; TEMP 36.7; O2SAT 99
--- NOTE | 2023-12-14 16:33 | PN.HOSP_ITS ---
Reason for Visit Reason for Visit: Right foot infection/osteomyelitis Subjective Subjective No issues overnight. Awaiting surgery on Sunday. Objective Data Objective Data Vital Signs: Vital Signs Temp Pulse Resp BP Pulse Ox O2 Del Method O2 Flow Rate 98.1 F 64 16 111/46 L 99 Room Air 2 12/14/23 15:05 12/14/23 15:05 12/14/23 15:05 12/14/23 15:05 12/14/23 15:05 12/14/23 15:05 12/07/23 16:39 Oxygen Flow Rate (L/min) 2 Oxygen Delivery Method Room Air Weight: 63 kg Body Mass Index (BMI) 24.5 Intake & Output: Intake and Output for Last 24 Hours 12/12/23 12/13/23 12/14/23 23:59 23:59 23:59 Intake Total 340 / 360 1730 / 1730 340 / 340 Output Total 0 / 0 Balance 340 / 360 1730 / 1730 340 / 340 Lab / Micro Data 12/14/23 07:10 12/14/23 07:10 Labs: Laboratory Results - last 24 hr 12/13/23 16:19: POC Glucose 202 H 12/13/23 21:42: POC Glucose 187 H 12/14/23 06:50: POC Glucose 140 H 12/14/23 07:10: WBC 10.9, RBC 2.85 L, Hgb 8.0 L, Hct 25.2 L, MCV 88.4, MCH 28.1, MCHC 31.7 L, RDW Std Deviation 46.0 H, RDW Coeff of Milad 14.2, Plt Count 292, MPV 10.4, Immature Gran % (Auto) 1.800 H, Neut % (Auto) 64.5, Lymph % (Auto) 18.6 L, [place] % (Auto) 14.1 H, Eos % (Auto) 0.6, Baso % (Auto) 0.4, Absolute Neuts (auto) 7.0, Absolute Lymphs (auto) 2.02, Nucleated RBC % 0, Differential Comment SCANNED, Sodium 138, Potassium 4.2, Chloride 113 H, Carbon Dioxide 20.0 L, Anion Gap 5, BUN 71 H, Creatinine 2.74 H, Estim Creat Clear Calc 17.31, Est GFR (MDRD) Af Amer 29 L, Est GFR (MDRD) Non-Af 24 L, BUN/Creatinine Ratio 25.9 H, Glucose 135 H, Calcium 8.5, Iron 14 L, TIBC 179 L, Iron Saturation 7.8 L, Ferritin 1082 H 12/14/23 11:22: POC Glucose 196 H Micro: Microbiology 12/07/23 13:30 Tissue - 5th Toe Gram Stain - Final 12/07/23 13:30 Tissue - 5th Toe Wound Culture - Final Klebsiella pneumoniae sp pneum Enterococcus faecalis Corynebacterium amycolatum Pseudomonas aeruginosa 12/07/23 13:30 Tissue - 5th Toe Anaerobic Culture - Final Bacteroides fragilis Anaerobic cocci 12/06/23 11:50 Blood Culture (Wb) - Right Hand Blood Culture - Final No growth in 5 days. 12/06/23 11:45 Blood Culture (Wb) - Left Wrist Blood Culture - Final No growth in 5 days. 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 administrator at bedside, patient oriented to self and place but not time, appears comfortable and nontoxic HEENT head/scalp atraumatic and moist oral mucous membranes Head and Scalp: normocephalic Resp normal respiratory effort, no retractions, no use of accessory muscles and clear to auscultation bilaterally Auscultation: Negative for crackles, rales, rhonchi or wheezes Cardio regular rate, regular rhythm, S1 normal heart sound, S2 normal heart sound, no murmurs, no rub, no gallops and no clicks GI normal to inspection, nondistended, normoactive bowel sounds, soft to palpation and non-tender Extremity no clubbing, cyanosis or edema Extremity Narrative: Cap refill is 1+ right lower extremity, postoperative dressing in place on right lower extremity Neuro moves all extremities and no focal motor deficits Neuro Narrative: Generalized weakness noted with proximal musculature being weaker than distal Psych affect normal Psych Narrative: Eye contact is good, patient interacts appropriately Assessment & Plan Assessment/Plan (1) Diabetes mellitus with diabetic polyneuropathy: (2) Osteomyelitis: (3) Diabetic foot ulcer: (4) PVD (peripheral vascular disease) with claudication: PLAN: Plan Right diabetic foot infection/osteomyelitis -Postop day 7 partial fifth ray amputation of right foot, partial fourth metatarsal amputation, incision of bone cortex and wide debridement of necrotic tissue in right foot and skin flap right foot -Cultures are currently showing Klebsiella, Enterococcus, corynebacterium, Pseudomonas, Bacteroides, and another ANNITA aerobic cocci -Blood cultures are negative -ID is following and has recommended Zosyn for another 7 days via IV after discharge however plan is for surgery on Sunday with vascular -Will need outpatient podiatry follow-up PAD -Patient underwent angiogram with runoff yesterday and patient does have significant vascular disease however none is amenable to endovascular treatment -Plan is for femoropopliteal bypass open on Sunday -Continue aspirin and Plavix -Continue risk factor modification with atorvastatin CKD stage IV/renal mass -Previous MRI showed abnormal kidney -Plan is for outpatient follow-up ultrasound per nephrology documentation -Renal function is stable -Nephrology consulted and appreciate input Acute anemia on chronic anemia secondary to renal disease -Hemoglobin on admission was 11.7 and slowly trending down -will continue to follow with repeat CBC in a.m. -Iron studies are consistent with anemia of chronic disease -Check guaiac -If hemoglobin continues to trend down or guaiac is positive will consult GI HFrEF -Last echo from 04/2022 showed segmental systolic dysfunction with EF of 50% -Continue monitoring daily weights -I's and O's -Continue beta-hernán -Hold Lasix until okay to restart per nephrology DM-2/diabetic neuropathy -Continue home Neurontin -A1c is 7.9 -Continue Lantus 10 units twice daily with stable renal function -AM fasting blood sugar was 135 -Continue SSI -Continue monitoring GERD -Continue home PPI CAD/HTN/HPL -Continue home aspirin and Plavix -Continue on beta-hernán -Continue home statin -Continue home hydralazine Depression -Continue home escitalopram -Continue home trazodone Cognitive impairment -Highly suspect vascular related with history -Continue risperidone Debility -Plan is for skilled placement at discharge -Patient has been accepted at [facility] and pre-CERT is pending DVT prophylaxis -Continue subcu heparin CODE STATUS -Full code is verified admission Charges/Coding Visit Charges Inpatient E&M: 98993 Subs Hosp L2
[2023-12-14 16:37] LABS: Bedside Glucose 170 mg/dL (74-106)
--- NOTE | 2023-12-14 16:49 | PN_ITS ---
Subjective Subjective Patient seen this afternoon resting in bed with foot elevated and present. Patient denies pain in the right foot. Nursing states no new overnight events. Patient states he has tried to stay off of his foot with the assistance of a walker however does walk on this foot. Denies constitutional symptoms. Denies further complaints. Objective Data Objective Data Vital Signs: Vital Signs Temp Pulse Resp BP Pulse Ox O2 Del Method O2 Flow Rate 98.1 F 64 16 111/46 L 99 Room Air 2 12/14/23 15:05 12/14/23 15:05 12/14/23 15:05 12/14/23 15:05 12/14/23 15:05 12/14/23 15:05 12/07/23 16:39 Oxygen Flow Rate (L/min) 2 Oxygen Delivery Method Room Air Weight: 63 kg Body Mass Index (BMI) 24.5 Intake & Output: Intake and Output for Last 24 Hours 12/12/23 12/13/23 12/14/23 23:59 23:59 23:59 Intake Total 340 / 360 1730 / 1730 340 / 340 Output Total 0 / 0 Balance 340 / 360 1730 / 1730 340 / 340 Lab / Micro Data 12/14/23 07:10 12/14/23 07:10 Labs: Laboratory Results - last 24 hr 12/13/23 21:42: POC Glucose 187 H 12/14/23 06:50: POC Glucose 140 H 12/14/23 07:10: WBC 10.9, RBC 2.85 L, Hgb 8.0 L, Hct 25.2 L, MCV 88.4, MCH 28.1, MCHC 31.7 L, RDW Std Deviation 46.0 H, RDW Coeff of Milad 14.2, Plt Count 292, MPV 10.4, Immature Gran % (Auto) 1.800 H, Neut % (Auto) 64.5, Lymph % (Auto) 18.6 L, [place] % (Auto) 14.1 H, Eos % (Auto) 0.6, Baso % (Auto) 0.4, Absolute Neuts (auto) 7.0, Absolute Lymphs (auto) 2.02, Nucleated RBC % 0, Differential Comment SCANNED, Sodium 138, Potassium 4.2, Chloride 113 H, Carbon Dioxide 20.0 L, Anion Gap 5, BUN 71 H, Creatinine 2.74 H, Estim Creat Clear Calc 17.31, Est GFR (MDRD) Af Amer 29 L, Est GFR (MDRD) Non-Af 24 L, BUN/Creatinine Ratio 25.9 H, Glucose 135 H, Calcium 8.5, Iron 14 L, TIBC 179 L, Iron Saturation 7.8 L, Ferritin 1082 H 12/14/23 11:22: POC Glucose 196 H 12/14/23 16:08: POC Glucose 170 H Micro: Microbiology 12/07/23 13:30 Tissue - 5th Toe Gram Stain - Final 12/07/23 13:30 Tissue - 5th Toe Wound Culture - Final Klebsiella pneumoniae sp pneum Enterococcus faecalis Corynebacterium amycolatum Pseudomonas aeruginosa 12/07/23 13:30 Tissue - 5th Toe Anaerobic Culture - Final Bacteroides fragilis Anaerobic cocci 12/06/23 11:50 Blood Culture (Wb) - Right Hand Blood Culture - Final No growth in 5 days. 12/06/23 11:45 Blood Culture (Wb) - Left Wrist Blood Culture - Final No growth in 5 days. Physical Exam Const alert, oriented x3 and no apparent distress General Appearance: cooperative HEENT normocephalic Eyes Eyes Narrative: Wears glasses General Eye: normal appearance of both eyes Neck General: normal visual inspection Lymph Lymphatic: no lymphadenopathy noted and no lymphedema noted Resp normal respiratory effort Cardio regular rate and regular rhythm Extremity no calf tenderness Extremity Narrative: DP and PT pulses nonpalpable bilateral. Capillary fill time is roughly 5 seconds digits. Normal temperature gradient. Hair growth is absent to digits/foot with trophic changes noted. Dermatological: Skin demonstrates trophic changes consistent with microvascular disease. Second digit of the left foot and dorsal hallux of the left foot demonstrate digital excoriation with eschar covering, no signs of infection. Sutures intact at amputation stump s/p partial fifth ray and fourth metatarsal head resection with skin flap closure. Skin flap remains healthy and viable with good coloration. Erythema is decreasing. Neurological: Decreased protective sensation noted to both feet secondary to diabetic peripheral polyneuropathy. Musculoskeletal: Previous partial fifth ray amputation of the left foot. Muscle strength 5 of 5 age-appropriate. No pain to palpation of the bones of the foot or ankle. Decreased range of motion of the ankle joint in dorsiflexion with the knee extended without pain or crepitus. Decreased range of motion of the first metatarsophalangeal joint without pain or crepitus. Skin no rashes or lesions noted, skin turgor normal and no jaundice Neuro oriented x3 and moves all extremities Assessment & Plan Assessment/Plan (1) Osteomyelitis of right foot: (2) Non-pressure chronic ulcer of other part of right foot with necrosis of bone: (3) Diabetes mellitus with diabetic polyneuropathy: (4) PVD (peripheral vascular disease) with claudication: (5) Type 2 diabetes mellitus with foot ulcer: PLAN: Plan Patient seen and evaluated He is s/p partial fifth ray amputation and fourth metatarsal head resection, incision of bone cortex, I&D with wide debridement of necrotic tissue, and skin flap right foot. DOS 12/07/2023. POD #7 Sutures intact at amputation stump s/p partial fifth ray and fourth metatarsal head resection with skin flap closure. Skin flap remains healthy and viable with good coloration. Erythema is decreasing. Overall foot is improving. Dressings changed consisting of Betadine soaked Adaptic 4 x 4 gauze Kerlix, and 4 inch Sean wrap rolled onto the right foot. WBC currently 10.6. Currently on IV Vanco/Zosyn Blood cultures obtained, no growth Surgical cultures: Tissue: Klebsiella pneumoniae, E faecalis, corynebacterium amycolatum, PsA, anaerobic cocci; Bone: Strep angiosis, anaerobic cocci LEAS obtained demonstrating noncompressible vessels with likely moderate arterial insufficiency. Patient had lung biopsy today. He did undergo arteriogram on 12/11/[address] Alvarenga. It is noted SFA, popliteal, peroneal arteries are significantly calcified and not amendable to endovascular procedure. He does have single-vessel inline flow to the foot through the posterior tibial artery. At this time he has been cleared by cardiology for open vascular procedure for arterial bypass surgery to the lower extremity and will undergo procedure on 12/17/2023. Radiographs obtained of the right foot 12/06/2023 demonstrating soft tissue ulceration overlying distal portion of the fifth metatarsal with dorsal soft tissue swelling and vascular calcifications. Medicine currently following for medical management, they are appreciated. Vascular surgery consulted with intervention performed due to 12/11/2023. Infectious disease consulted for antibiotic management. Wound nurse assisting in dressing changes Patient to be nonweightbearing to the right foot with assistance of a walker. Nursing may reinforce dressings for any strikethrough. Patient may benefit from SNF due to noncompliance of ambulating on amputation stump and assistance in care postsurgical status. Upon DC will have PICC line and continue IV Zosyn for 7 days per ID recommendations. Please do not hesitate to call with any questions or concerns. Will continue to follow while in house. If discharge to outside SNF he will then follow-up in office with me. Jr. Ken Lozada.P.M[facility] [phone]
[2023-12-14 21:05] VITALS: BP 152/65; PULSE 72; RESP 16; TEMP 36.6; O2SAT 93
[2023-12-14] MEDS: Atorvastatin Calcium 80 MG Tablet PO (22:46)
[2023-12-14] MEDS: RisperiDONE 0.5 MG Tablet PO (22:46)
[2023-12-14] MEDS: MELATONIN 10 MG TABLET PO (22:46)
[2023-12-14] MEDS: Gabapentin 100 MG Capsule PO (22:50)
[2023-12-14 23:24] LABS: Bedside Glucose 217 mg/dL (74-106)
[2023-12-15 03:05] VITALS: BP 105/53; PULSE 64; RESP 17; TEMP 36.7; O2SAT 95
[2023-12-15 05:20] VITALS: BMI 24.2
[2023-12-15 06:43] LABS: Bedside Glucose 119 mg/dL (74-106)
[2023-12-15 09:05] VITALS: BP 129/56; PULSE 69; RESP 18; TEMP 36.5; O2SAT 97
[2023-12-15] MEDS: Juven (unflavored) Packet 1 PACKET PO ×2 (09:18→16:24)
[2023-12-15] MEDS: Heparin Injection (Vial) 5,000 UNIT/ML VIAL 5000 UNIT SC ×2 (09:18→21:42)
[2023-12-15] MEDS: Escitalopram Oxalate 20 MG Tablet PO (09:19)
[2023-12-15] MEDS: Aspirin 81 MG TAB.CHEW PO (09:19)
[2023-12-15] MEDS: Clopidogrel Bisulfate 75 MG Tablet PO (09:19)
[2023-12-15] MEDS: Menthol/Lanolin/Calamine/Znox 113 GM Tube 1 APPLIC TOPICAL (09:19)
[2023-12-15] MEDS: Carvedilol 12.5 MG Tablet PO ×2 (09:19→21:42)
[2023-12-15] MEDS: Pantoprazole Sodium 40 MG Tablet PO (09:19)
[2023-12-15] MEDS: Insulin Glargine-YFGN 100 UNIT/ML Pen 10 UNIT SC (09:25)
[2023-12-15] MEDS: Piperacil/Tazobactam 3.375 GM in 0.9% Normal Saline (50mL MB+) 50 ML IV ×2 (10:31→21:42)
[2023-12-15] MEDS: Ferrous Sulfate 325 MG Tablet PO (11:20)
[2023-12-15] MEDS: Insulin Lispro 100 UNIT/ML INSULN.PEN SC ×2 (11:21→16:23)
[2023-12-15 11:42] LABS: Bedside Glucose 194 mg/dL (74-106)
--- NOTE | 2023-12-15 13:43 | PCM.PN.HOSP ---
Reason for Visit Reason for Visit: Right foot infection Subjective Subjective No issues overnight. Patient is doing well. No complaints. Objective Data Objective Data Vital Signs: Vital Signs Temp Pulse Resp BP Pulse Ox O2 Del Method O2 Flow Rate 97.7 F L 69 18 129/56 H 97 Room Air 2 12/15/23 09:05 12/15/23 09:05 12/15/23 09:05 12/15/23 09:05 12/15/23 09:05 12/15/23 09:05 12/07/23 16:39 Oxygen Flow Rate (L/min) 2 Oxygen Delivery Method Room Air Weight: 62.1 kg Body Mass Index (BMI) 24.2 Intake & Output: Intake and Output for Last 24 Hours 12/13/23 12/14/23 12/15/23 23:59 23:59 23:59 Intake Total 1730 / 1730 580 / 580 410 / 410 Output Total 0 / 0 Balance 1730 / 1730 580 / 580 410 / 410 Lab / Micro Data 12/14/23 07:10 12/14/23 07:10 Labs: Laboratory Results - last 24 hr 12/14/23 16:08: POC Glucose 170 H 12/14/23 22:53: POC Glucose 217 H 12/15/23 06:20: POC Glucose 119 H 12/15/23 11:19: POC Glucose 194 H Micro: Microbiology 12/14/23 19:35 Stool Stool Occult Blood (SANA) - Final 12/07/23 13:30 Tissue - 5th Toe Gram Stain - Final 12/07/23 13:30 Tissue - 5th Toe Wound Culture - Final Klebsiella pneumoniae sp pneum Enterococcus faecalis Corynebacterium amycolatum Pseudomonas aeruginosa 12/07/23 13:30 Tissue - 5th Toe Anaerobic Culture - Final Bacteroides fragilis Anaerobic cocci 12/06/23 11:50 Blood Culture (Wb) - Right Hand Blood Culture - Final No growth in 5 days. 12/06/23 11:45 Blood Culture (Wb) - Left Wrist Blood Culture - Final No growth in 5 days. Physical Exam Const alert, no apparent distress, average body habitus and well nourished Constitutional Narrative: Elderly, white male, sitting up in a chair at the bedside, watching television and eating breakfast, is at the bedside helping him,, patient oriented to self and place but not time, appears comfortable and nontoxic Extremity no clubbing, cyanosis or edema Extremity Narrative: Cap refill is 1+ right lower extremity, postoperative dressing in place on right lower extremity Psych affect normal Psych Narrative: Eye contact is good, patient interacts appropriately Assessment & Plan Assessment/Plan (1) Diabetes mellitus with diabetic polyneuropathy: (2) Osteomyelitis: (3) Diabetic foot ulcer: (4) PVD (peripheral vascular disease) with claudication: PLAN: Plan Right diabetic foot infection/osteomyelitis -Postop day 8 partial fifth ray amputation of right foot, partial fourth metatarsal amputation, incision of bone cortex and wide debridement of necrotic tissue in right foot and skin flap right foot -Cultures are currently showing Klebsiella, Enterococcus, corynebacterium, Pseudomonas, Bacteroides, and another ANNITA aerobic cocci -ID is following and has recommended Zosyn for another 7 days via IV after discharge however plan is for surgery on Sunday with vascular -Will need outpatient podiatry follow-up PAD -Patient underwent angiogram with runoff yesterday and patient does have significant vascular disease however none is amenable to endovascular treatment -Plan is for femoropopliteal bypass open on Sunday -Continue aspirin and Plavix -Continue risk factor modification with atorvastatin CKD stage IV/renal mass -Previous MRI showed abnormal kidney -Plan is for outpatient follow-up ultrasound per nephrology documentation -Renal function is stable -Nephrology consulted and appreciate input Acute anemia on chronic anemia secondary to renal disease/chronic disease -Hemoglobin on admission was 11.7 and slowly trending down -Iron studies are consistent with anemia of chronic disease -Stool occult was negative -Check a.m. CBC HFrEF -Last echo from 04/2022 showed segmental systolic dysfunction with EF of 50% -Continue monitoring daily weights -I's and O's -Continue beta-hernán -Hold Lasix until okay to restart per nephrology DM-2/diabetic neuropathy -Continue home Neurontin -A1c is 7.9 -Continue Lantus 10 units twice daily with stable renal function -AM fasting blood sugar was 119 -Will decrease Lantus by 50% tomorrow evening in preparation for n.p.o. status on Sunday evening for surgery -Continue SSI -Continue monitoring GERD -Continue home PPI CAD/HTN/HPL -Continue home aspirin and Plavix -Continue on beta-hernán -Continue home statin -Continue home hydralazine Depression -Continue home escitalopram -Continue home trazodone Cognitive impairment -Highly suspect vascular related with history -Continue risperidone Debility -Plan is for skilled placement at discharge -Patient has been accepted at [facility] and will be discharged there once stable after surgery DVT prophylaxis -Continue subcu heparin CODE STATUS -Full code is verified admission Charges/Coding Visit Charges Inpatient E&M: 54460 Subs Hosp L1
[2023-12-15 15:05] VITALS: BP 122/59; PULSE 68; RESP 18; TEMP 36.6; O2SAT 98
[2023-12-15] MEDS: oxyCODONE 5 MG Tablet PO (15:10)
[2023-12-15] MEDS: Acetaminophen 325 MG Tablet 650 MG PO (15:11)
[2023-12-15 16:43] LABS: Bedside Glucose 153 mg/dL (74-106)
[2023-12-15 21:30] VITALS: BP 145/67; PULSE 70; RESP 18; TEMP 36.2; O2SAT 95
[2023-12-15] MEDS: MELATONIN 10 MG TABLET PO (21:42)
[2023-12-15] MEDS: Atorvastatin Calcium 80 MG Tablet PO (21:42)
[2023-12-15] MEDS: Gabapentin 100 MG Capsule PO (21:42)
[2023-12-15] MEDS: RisperiDONE 0.5 MG Tablet PO (21:42)
[2023-12-15 21:53] LABS: Bedside Glucose 126 mg/dL (74-106)
[2023-12-16] MEDS: oxyCODONE 5 MG Tablet PO (01:40)
[2023-12-16 01:53] VITALS: BP 140/60; PULSE 75; RESP 18; TEMP 36.3; O2SAT 94
[2023-12-16 03:17] VITALS: BMI 24.7
[2023-12-16 06:51] LABS: Bedside Glucose 127 mg/dL (74-106)
[2023-12-16 08:36] VITALS: BP 153/76; PULSE 87; RESP 18; TEMP 36.3; O2SAT 97
[2023-12-16] MEDS: Juven (unflavored) Packet 1 PACKET PO ×2 (08:38→16:38)
[2023-12-16] MEDS: Escitalopram Oxalate 20 MG Tablet PO (08:40)
[2023-12-16] MEDS: Heparin Injection (Vial) 5,000 UNIT/ML VIAL 5000 UNIT SC (08:40)
[2023-12-16] MEDS: Clopidogrel Bisulfate 75 MG Tablet PO (08:40)
[2023-12-16] MEDS: Aspirin 81 MG TAB.CHEW PO (08:40)
[2023-12-16] MEDS: Carvedilol 12.5 MG Tablet PO ×2 (08:40→20:24)
[2023-12-16] MEDS: Pantoprazole Sodium 40 MG Tablet PO (08:40)
[2023-12-16] MEDS: Menthol/Lanolin/Calamine/Znox 113 GM Tube 1 APPLIC TOPICAL (08:41)
[2023-12-16] MEDS: Piperacil/Tazobactam 3.375 GM in 0.9% Normal Saline (50mL MB+) 50 ML IV ×2 (10:27→20:23)
[2023-12-16] MEDS: Insulin Lispro 100 UNIT/ML INSULN.PEN SC ×2 (11:15→16:38)
[2023-12-16] MEDS: Ferrous Sulfate 325 MG Tablet PO (11:15)
[2023-12-16 11:33] LABS: Bedside Glucose 199 mg/dL (74-106)
[2023-12-16] MEDS: Benzonatate 100 MG Capsule PO (14:18)
[2023-12-16 14:35] VITALS: BP 151/65; PULSE 78; RESP 18; TEMP 36.1; O2SAT 98
--- NOTE | 2023-12-16 15:07 | PN.HOSP_ITS ---
Reason for Visit Reason for Visit: Right diabetic foot infection Subjective Subjective Patient stating he wants to go home and not have surgery now. He has dementia and his is not here. He is calmer when she is present. No significant issues overnight. Plan is for OR tomorrow for open vascular surgery of right lower extremity. Objective Data Objective Data Vital Signs: Vital Signs Temp Pulse Resp BP Pulse Ox O2 Del Method O2 Flow Rate 97.0 F L 78 18 151/65 H 98 Room Air 2 12/16/23 14:35 12/16/23 14:35 12/16/23 14:35 12/16/23 14:35 12/16/23 14:35 12/16/23 14:35 12/07/23 16:39 Oxygen Flow Rate (L/min) 2 Oxygen Delivery Method Room Air Weight: 63.5 kg Body Mass Index (BMI) 24.7 Intake & Output: Intake and Output for Last 24 Hours 12/14/23 12/15/23 12/16/23 23:59 23:59 23:59 Intake Total 580 / 580 1170 / 1170 452.92 / 452.92 Output Total 0 / 0 200 / 200 Balance 580 / 580 1170 / 1170 252.92 / 252.92 Lab / Micro Data 12/14/23 07:10 12/14/23 07:10 Labs: Laboratory Results - last 24 hr 12/15/23 16:21: POC Glucose 153 H 12/15/23 21:32: POC Glucose 126 H 12/16/23 06:33: POC Glucose 127 H 12/16/23 11:14: POC Glucose 199 H Micro: Microbiology 12/14/23 19:35 Stool Stool Occult Blood (SANA) - Final 12/07/23 13:30 Tissue - 5th Toe Gram Stain - Final 12/07/23 13:30 Tissue - 5th Toe Wound Culture - Final Klebsiella pneumoniae sp pneum Enterococcus faecalis Corynebacterium amycolatum Pseudomonas aeruginosa 12/07/23 13:30 Tissue - 5th Toe Anaerobic Culture - Final Bacteroides fragilis Anaerobic cocci 12/06/23 11:50 Blood Culture (Wb) - Right Hand Blood Culture - Final No growth in 5 days. 12/06/23 11:45 Blood Culture (Wb) - Left Wrist Blood Culture - Final No growth in 5 days. Physical Exam Const alert, no apparent distress, average body habitus and well nourished Constitutional Narrative: Elderly, white male, sitting up in a chair at the bedside, sitting up on the edge of the bed, adjunct nursing faculty at bedside, patient is somewhat agitated at this time, patient oriented to self and place but not time, nontoxic HEENT head/scalp atraumatic and moist oral mucous membranes HEENT Narrative: Mallampati is 2, no thrush Neuro Neuro Narrative: Generalized weakness noted with proximal musculature being weaker than distal Psych Psych Narrative: Patient is mildly agitated right now related to his memory loss Assessment & Plan Assessment/Plan (1) Diabetes mellitus with diabetic polyneuropathy: (2) Osteomyelitis: (3) Diabetic foot ulcer: (4) PVD (peripheral vascular disease) with claudication: PLAN: Plan Right diabetic foot infection/osteomyelitis -Postop day 9 partial fifth ray amputation of right foot, partial fourth metatarsal amputation, incision of bone cortex and wide debridement of necrotic tissue in right foot and skin flap right foot -Cultures are currently showing Klebsiella, Enterococcus, corynebacterium, Pseudomonas, Bacteroides, and another ANNITA aerobic cocci -ID is following and has recommended Zosyn for another 7 days via IV after discharge however plan is for surgery on Sunday with vascular -Will need outpatient podiatry follow-up PAD -Patient underwent angiogram with runoff yesterday and patient does have significant vascular disease however none is amenable to endovascular treatment -Plan is for femoropopliteal bypass open on Sunday -Continue aspirin and Plavix -Continue risk factor modification with atorvastatin CKD stage IV/renal mass -Previous MRI showed abnormal kidney -Plan is for outpatient follow-up ultrasound per nephrology documentation -Renal function is stable -Nephrology consulted and appreciate input Acute anemia on chronic anemia secondary to renal disease/chronic disease -Hemoglobin on admission was 11.7 and slowly trending down -Iron studies are consistent with anemia of chronic disease -Stool occult was negative -Check a.m. CBC HFrEF -Last echo from 04/2022 showed segmental systolic dysfunction with EF of 50% -Continue monitoring daily weights -I's and O's -Continue beta-hernán -Hold Lasix until okay to restart per nephrology DM-2/diabetic neuropathy -Continue home Neurontin -A1c is 7.9 -Continue Lantus 10 units twice daily with stable renal function -Will decrease dose by 50% and give 5 units tonight in preparation for OR tomorrow -Continue SSI -Continue monitoring GERD -Continue home PPI CAD/HTN/HPL -Continue home aspirin and Plavix -Continue on beta-hernán -Continue home statin -Continue home hydralazine Depression -Continue home escitalopram -Continue home trazodone Cognitive impairment -Highly suspect vascular related with history -Continue risperidone Debility -Plan is for skilled placement at discharge -Patient has been accepted at [facility] and will be discharged there once stable after surgery DVT prophylaxis -Continue subcu heparin CODE STATUS -Full code is verified admission Charges/Coding Visit Charges Inpatient E&M: 04845 Subs Hosp L1
[2023-12-16 17:05] LABS: Bedside Glucose 218 mg/dL (74-106)
--- NOTE | 2023-12-16 18:14 | PN.SURG_ITS ---
Subjective Subjective No new issues. Occasional foot pain. No F/C. Objective Data Objective Data Awake, alert, confused at baseline RRR Resp non labored Vital Signs: Vital Signs Temp Pulse Resp BP Pulse Ox O2 Del Method O2 Flow Rate 97.0 F L 78 18 151/65 H 98 Room Air 2 12/16/23 14:35 12/16/23 14:35 12/16/23 14:35 12/16/23 14:35 12/16/23 14:35 12/16/23 14:35 12/07/23 16:39 Oxygen Flow Rate (L/min) 2 Oxygen Delivery Method Room Air Weight: 139 lb 15.896 oz Body Mass Index (BMI) 24.7 Intake & Output: Intake and Output for Last 24 Hours 12/14/23 12/15/23 12/16/23 23:59 23:59 23:59 Intake Total 580 / 580 1170 / 1170 932.92 / 932.92 Output Total 0 / 0 200 / 200 Balance 580 / 580 1170 / 1170 732.92 / 732.92 Lab / Micro Data 12/14/23 07:10 12/14/23 07:10 Labs: Laboratory Results - last 24 hr 12/15/23 21:32: POC Glucose 126 H 12/16/23 06:33: POC Glucose 127 H 12/16/23 11:14: POC Glucose 199 H 12/16/23 16:38: POC Glucose 218 H Micro: Microbiology 12/14/23 19:35 Stool Stool Occult Blood (SANA) - Final 12/07/23 13:30 Tissue - 5th Toe Gram Stain - Final 12/07/23 13:30 Tissue - 5th Toe Wound Culture - Final Klebsiella pneumoniae sp pneum Enterococcus faecalis Corynebacterium amycolatum Pseudomonas aeruginosa 12/07/23 13:30 Tissue - 5th Toe Anaerobic Culture - Final Bacteroides fragilis Anaerobic cocci 12/06/23 11:50 Blood Culture (Wb) - Right Hand Blood Culture - Final No growth in 5 days. 12/06/23 11:45 Blood Culture (Wb) - Left Wrist Blood Culture - Final No growth in 5 days. 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
[2023-12-16 20:18] VITALS: BP 141/94; PULSE 96; RESP 16; TEMP 36.9; O2SAT 94
[2023-12-16] MEDS: Gabapentin 100 MG Capsule PO (20:23)
[2023-12-16] MEDS: 0.9% Saline Lock 10 ML Syringe IV (20:23)
[2023-12-16] MEDS: RisperiDONE 0.5 MG Tablet PO (20:23)
[2023-12-16] MEDS: Atorvastatin Calcium 80 MG Tablet PO (20:23)
[2023-12-16] MEDS: MELATONIN 10 MG TABLET PO (20:24)
[2023-12-16] MEDS: Acetaminophen 325 MG Tablet 650 MG PO (20:30)
[2023-12-16] MEDS: Insulin Glargine-YFGN 100 UNIT/ML Pen SC (20:31)
[2023-12-16 20:44] LABS: Bedside Glucose 157 mg/dL (74-106)
[2023-12-16] MEDS: traZODone 50 MG Tablet PO (21:36)
[2023-12-16 22:21] VITALS: BMI 24.7
[2023-12-17] VITALS (26 sets, daily range): BP systolic 90–142; BP diastolic 46–98; PULSE 66–92; RESP 16–25; TEMP 36.2–36.7; O2SAT 89–100; BMI 24.1
[2023-12-17] MEDS: Benzonatate 100 MG Capsule PO (01:33)
[2023-12-17] MEDS: 0.9% Saline Lock 10 ML Syringe IV ×3 (01:34→04:33)
[2023-12-17] MEDS: guaiFENesin 10 ML UDC (200MG/10ML) PO (02:19)
[2023-12-17] MEDS: Morphine 2 MG/ML Syringe IV ×3 (04:14→19:33)
[2023-12-17] MEDS: Ondansetron 4 MG/2 ML Vial IV (04:33)
[2023-12-17 04:34] LABS: Absolute Lymphocyte Count 1.79 X10^3/uL (0.83-4.51); Absolute Neutrophil Count 9.6 X10^3/uL (2.0-7.7); Basophil# 0.08 X10^3/uL; Basophil% 0.6 % (0-1); Eosinophils% 2.3 % (0-5); Hematocrit 28.3 % (40-54); Lymphocyte # 1.79 X10^3/ul (0.83-4.51); Lymphocyte % 13.7 % (19-41); Mean Corp Hgb Conc 31.8 g/dL (32-36); Mean Corpuscular Volume 87.9 fL (80-94); Mean Platelet Vol. 9.9 fl (6.2-12.0); Monocyte# 1.01 X10^3/uL; Monocyte% 7.7 % (0-10); NRBC Flagged by Analyzer 0 % (0-5); Neutrophil # 9.61 X10^3/uL (2.7-7.7); Neutrophil % 73.8 % (47-70); Platelet Count 341 K/mm3 (150-450); RBC Distribution Width SD 45.1 fl (35.1-43.9); Red Blood Count 3.22 M/mm3 (4.6-6.2)
--- NOTE | 2023-12-17 04:43 | RAD_ITS ---
STUDY: X-RAY CHEST REASON FOR EXAM: Male, 78 years old patient with cough. TECHNIQUE: Single AP portable view of the chest. COMPARISON: Chest radiograph dated May 20, 2019. FINDINGS: Patient has had a sternotomy. The lungs are expanded. There are prominent bronchovascular markings in both lungs. There appears to be small left-sided pleural effusion. There is mild cardiac enlargement. Normal mediastinum and clay. There is prominence of the pulmonary hilar arteries with peripheral pulmonary vascular congestion. There is atherosclerotic calcification of the aortic arch with tortuosity. Normal visualized thoracic spine. There are degenerative changes of both shoulders. There is no demonstrated abnormality of the visualized soft tissue structures of the upper abdomen. RAD/Chest 1 View (Portable) IMPRESSION: Cardiomegaly and mild pulmonary congestion. Electronically Signed: Mulu Bagley MD at 7:03 EST ,
[2023-12-17 04:48] LABS: Anion Gap 4 (5-15); BUN 66 mg/dL (7-18); Calcium,Total 8.7 mg/dL (8.5-10.1); Chloride 111 mmol/L (98-107); Creatinine, Serum 2.13 mg/dL (0.70-1.30); EST Glomerular Filtration Rate 32 mL/min (>60); Est Glom Filt Rate - Afr Amer 39 mL/min (>60); Estimated Creatinine Clearance 22.26 ml/min; Glucose 144 mg/dL (74-106); Potassium 4.6 mmol/L (3.5-5.1); Sodium Level 137 mmol/L (136-145)
[2023-12-17 05:20] LABS: Bedside Glucose 133 mg/dL (74-106)
[2023-12-17] MEDS: 0.9% Normal Saline (1000mL) 1,000 ML 15 ML IV (06:34)
--- NOTE | 2023-12-17 08:24 | PCM.PN.HOSP ---
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 (12/06/23) Peripheral vascular disease, unspecified (12/06/23) Cellulitis of right lower limb (12/06/23) Non-pressure chronic ulcer of other part of unspecified foot with unspecified severity (12/06/23) Non-pressure chronic ulcer of other part of right foot with necrosis of bone (12/06/23) Osteomyelitis, unspecified (12/06/23) Chronic kidney disease, stage 4 (severe) (12/06/23) Encounter for preprocedural cardiovascular examination (12/06/23) Presence of aortocoronary bypass graft (12/06/23) Objective Data Objective Data Vital Signs: Vital Signs Temp Pulse Resp BP Pulse Ox O2 Del Method O2 Flow Rate 97.8 F 71 18 142/54 H 93 Room Air 2 12/17/23 04:10 12/17/23 06:36 12/17/23 06:36 12/17/23 04:10 12/17/23 06:36 12/17/23 06:36 12/07/23 16:39 Oxygen Flow Rate (L/min) 2 Oxygen Delivery Method Room Air Weight: 136 lb 7.458 oz Body Mass Index (BMI) 24.1 Intake & Output: Intake and Output for Last 24 Hours 12/15/23 12/16/23 12/17/23 23:59 23:59 23:59 Intake Total 1170 / 1170 976.25 / 976.25 Output Total 200 / 200 500 / 500 Balance 1170 / 1170 776.25 / 776.25 -500 / -500 Lab / Micro Data 12/17/23 04:20 12/17/23 04:20 Labs: Laboratory Results - last 24 hr 12/16/23 11:14: POC Glucose 199 H 12/16/23 16:38: POC Glucose 218 H 12/16/23 20:15: POC Glucose 157 H 12/17/23 04:11: POC Glucose 133 H 12/17/23 04:20: WBC 13.0 H, RBC 3.22 L, Hgb 9.0 L, Hct 28.3 L, MCV 87.9, MCH 28.0, MCHC 31.8 L, RDW Std Deviation 45.1 H, RDW Coeff of Milad 14.0, Plt Count 341, MPV 9.9, Immature Gran % (Auto) 1.900 H, Neut % (Auto) 73.8 H, Lymph % (Auto) 13.7 L, [place] % (Auto) 7.7, Eos % (Auto) 2.3, Baso % (Auto) 0.6, Absolute Neuts (auto) 9.6 H, Absolute Lymphs (auto) 1.79, Nucleated RBC % 0, Sodium 137, Potassium 4.6, Chloride 111 H, Carbon Dioxide 22.0, Anion Gap 4 L, BUN 66 H, Creatinine 2.13 H, Estim Creat Clear Calc 22.26, Est GFR (MDRD) Af Amer 39 L, Est GFR (MDRD) Non-Af 32 L, BUN/Creatinine Ratio 31.0 H, Glucose 144 H, Calcium 8.7, Blood Type A POSITIVE, Antibody Screen NEGATIVE Micro: Microbiology 12/14/23 19:35 Stool Stool Occult Blood (SANA) - Final 12/07/23 13:30 Tissue - 5th Toe Gram Stain - Final 12/07/23 13:30 Tissue - 5th Toe Wound Culture - Final Klebsiella pneumoniae sp pneum Enterococcus faecalis Corynebacterium amycolatum Pseudomonas aeruginosa 12/07/23 13:30 Tissue - 5th Toe Anaerobic Culture - Final Bacteroides fragilis Anaerobic cocci 12/06/23 11:50 Blood Culture (Wb) - Right Hand Blood Culture - Final No growth in 5 days. 12/06/23 11:45 Blood Culture (Wb) - Left Wrist Blood Culture - Final No growth in 5 days. Radiography Diagnostic Testing: Radiology Impression Chest X-Ray 12/17/23 04:43 IMPRESSION: Cardiomegaly and mild pulmonary congestion. Electronically Signed: Mulu Bagley MD at 7:03 EST Reading Location ID and State: [address] [place] [address] , Service support , Physical Exam Narrative Seen and examined. Patient had femoropopliteal bypass surgery today. Transferred to ICU after surgery. Physical exam: General: Mildly sedated. Still not alert. Return from surgery. Obtunded HEENT: Atraumatic, PERRLA, EOMI, Normocephalic Oral: Oral mucosa moist. No Gingival or Mucosal Lesions/ Ulcerations Neck: Supple, No JVD, Negative Carotid Bruits Chest wall/Lungs: Air entry diminished in bilateral lung bases. No crepitation/rhonchi Cardiovascular: Regular rate, Regular Rhythm, Normal S1, Normal S2, No M/G/R Abdomen: Bowel Sounds Present, Soft, Non Tender, Non-Distended. No peritoneal or retroperitoneal region tenderness. :clear urine.: No renal angle tenderness. No suprapubic tenderness. Extremities: Left groin arterial sheath. No edema, Capillary Refill Less than 3 Seconds. No Skin: Had right sided fifth ray amputation on 12/07. Right groin femoral access, has wound VAC. Right leg access is closed. Mild bruise around the right groin. Musculoskeletal: No Tenderness to Palpation of Joints or Extremities.. Had left fifth ray amputation. Neurological: Cranial nerves II-XII grossly intact, DTR 2+/4. No acute focal neurological deficit. Psych/Mental Status: Flat affect. Does not remember well. Dementia. Assessment & Plan Assessment/Plan (1) Diabetes mellitus with diabetic polyneuropathy: (2) Osteomyelitis: (3) Diabetic foot ulcer: (4) PVD (peripheral vascular disease) with claudication: PLAN: Plan This is a 78-year-old male was admitted for nonhealing wound on the right foot for about 3 months being followed by Dr. Alva. Right diabetic foot infection/osteomyelitis Patient had partial fifth ray amputation of right foot, partial fourth metatarsal amputation, incision of bone cortex and wide debridement of necrotic tissue in right foot and skin flap right foot on 12/07/2023. -Cultures are currently showing Klebsiella, Enterococcus, corynebacterium, Pseudomonas, Bacteroides, and another ANNITA aerobic cocci -ID is following and has recommended Zosyn for another 7 days via IV after discharge however plan is for surgery on Sunday with vascular -Will need outpatient podiatry follow-up PAD, atherosclerosis with right infected foot status post amputation left fifth ray amputation and a valve surgery during this hospital stay -Patient underwent angiogram with runoff yesterday and patient does have significant vascular disease however none is amenable to endovascular treatment -On 12/17/2023 patient had right femoral popliteal bypass with cadaver GSV. Will check H&H today. -Continue aspirin and Plavix -Continue risk factor modification with atorvastatin CKD stage IV/renal mass -Previous MRI showed abnormal kidney -Plan is for outpatient follow-up ultrasound per nephrology documentation -Renal function is stable -Nephrology consulted and appreciate input Acute anemia on chronic anemia secondary to renal disease/chronic disease -Hemoglobin on admission was 11.7 and slowly trending down -Iron studies are consistent with anemia of chronic disease -Stool occult was negative -Check a.m. CBC HFrEF -Last echo from 04/2022 showed segmental systolic dysfunction with EF of 50% -Continue monitoring daily weights -I's and O's -Continue beta-hernán -Hold Lasix until okay to restart per nephrology DM-2/diabetic neuropathy -Continue home Neurontin -A1c is 7.9 -Continue Lantus 10 units twice daily with stable renal function -Will decrease dose by 50% and give 5 units tonight in preparation for OR tomorrow -Continue SSI -Continue monitoring GERD -Continue home PPI CAD/HTN/HPL -Continue home aspirin and Plavix -Continue on beta-hernán -Continue home statin -Continue home hydralazine Depression -Continue home escitalopram -Continue home trazodone Cognitive impairment -Highly suspect vascular related with history -Continue risperidone Debility -Plan is for skilled placement at discharge -Patient has been accepted at [facility] and will be discharged there once stable after surgery DVT prophylaxis -Continue subcu heparin CODE STATUS -Full code is verified admission Charges/Coding Visit Charges Inpatient E&M: 51194 Subs Hosp L3
[2023-12-17] MEDS: Heparin Injection (Vial) 5,000 UNIT/ML VIAL 5000 UNIT (08:55)
[2023-12-17] MEDS: Heparin 10,000 UNITS/10 ML Vial 10000 UNITS ×2 (08:55→09:55)
--- NOTE | 2023-12-17 09:30 | WOUNDNOTE ---
Pt currently off the unit for vascular procedure.
[2023-12-17] MEDS: Piperacil/Tazobactam 3.375 GM in 0.9% Normal Saline (50mL MB+) 50 ML IV ×2 (10:03→21:30)
[2023-12-17] MEDS: HEPARIN/D5w 25,000 UNITS 25,000 UNITS/250 ML IV.SOLN. 3 UNITS CONT INF (11:25)
--- NOTE | 2023-12-17 11:30 | OP.PCM_ITS ---
Report of Operation Date of Procedure: 12/17/23 Pre-Operative Diagnosis: atherosclerosis with gangrene, right lower extremity Post-Operative Diagnosis: same Surgery/Procedure Performed:: right femoral-PT bypass with cadaver GSV Surgeon: Anthony Alvarenga Type of Anesthesia: General Estimated Blood Loss (mL): 50 Description of Procedure: HPI: Patient is an 78-year-old male with atherosclerosis with infected right digit wound status post amputation. He underwent angiography with attempted intervention however he had severe diffuse calcified atherosclerosis and this was not amenable to endovascular therapy. He had vein mapping which revealed no adequate kenaitze saphenous vein so he presents now for femoral to posterior tibial bypass with cadaver saphenous vein. Description of procedure: Upon obtaining informed consent and verification correct patient procedure site patient was taken to the operating where he was placed under general anesthesia. He was then positioned prepped and draped in usual fashion and timeout was performed. Oblique incision was made 2 fingerbreadths inferior to the inguinal ligament and Bovie electrocautery was dissect down through subcutaneous tissue. Self-retaining retractors then put in position and further dissection carried down to the inguinal ligament. The femoral sheath was then incised vertically and the self-retaining retractor moved deeper into the wound. Sharp dissection was then used to dissect free the common femoral artery proximally up to the inguinal ligament were soft and a right angle used to place a vessel loop. The dissection was then carried distally down to just above the femoral bifurcation where the vessel was soft and clampable and a right angle was used to place a vessel loop. Running was also used to place Vesseloops individually on each of the side branches. Next a longitudinal incision was made on the medial calf and Bovie electrocautery used to dissect down through the subcutaneous tissue to the level of the fascia. Self-retaining retractors then put in position and the fascia incised. The gastrocnemius muscle was then retracted posteriorly exposing the soleus muscle. Bovie electrocautery then used to dissect the soleus off of its attachment to the tibia and self-retaining retractors moved deeper in the wound. Once the soleus muscle was then mobilized the posterior tibial artery was visualized and this point sharp dissection was used to dissect proximally and distally to the location where the vessel was soft and clamped both with minimal calcification. Writing was used to place a vessel loop proximal and distal and next a tunneler was used to tunnel from the calf incision to the femoral incision. The patient was then heparinized and allowed to circulate for 3 minutes. The cadaver saphenous vein was thawed per vp cardiovascular service line's instructions and when it was prepared the femoral vessels were occluded with Vesseloops. A longitudinal arteriotomy was created with 11 blade and extended with Martines scissors. The vein was then oriented in reverse fashion and beveled to match the arteriotomy. Proximal anastomosis was then created using a 5-0 Prolene in running fashion. After completing the suture line the vessels were flushed into the graft and the graft allowed to pressurize. Sidebranches were noted to be hemostatic with no significant bleeding. The vein was then marked to maintain orientation and secured to the tunneler and pulled through to the distal incision. The posterior tibial artery was then occluded with Vesseloops and longitudinal arteriotomy created with 11 blade and extended with Martines scissors. The vein was then cut the length and beveled to match the arteriotomy after which anastomosis was created using a 7-0 Prolene in a running fashion. Prior to completing the suture line the vessels and graft were flushed and after completing the suture line the clamps were removed. Satisfactory stasis was noted there is a palpable pulse in the graft and a satisfactory Doppler signal in the distal graft across the anastomosis into the posterior tibial artery. The posterior tibial artery at the ankle was then assessed with Doppler and found to be biphasic and diminished to monophasic when the graft was compressed. The incisions were then inspected for hemostasis and Flavio topical hemostatic applied. The incisions were then closed with 2-0 Vicryl followed by 3-0 Vicryl and 4-0 Monocryl then Dermabond for the skin. Dry sterile dressings were then applied patient awakened anesthesia after which was taken the recovery room with anticipated admission to the intensive care unit for hemodynamic and vascular monitoring.
[2023-12-17] MEDS: Lorazepam 2 MG/ML WCH Syringe 1 MG IV ×2 (12:23→12:43)
[2023-12-17 12:30] LABS: Bedside Glucose 149 mg/dL (74-106)
[2023-12-17] MEDS: Clopidogrel Bisulfate 75 MG Tablet PO (14:01)
[2023-12-17] MEDS: Pantoprazole Sodium 40 MG Tablet PO (14:01)
[2023-12-17] MEDS: Aspirin 81 MG TAB.CHEW PO (14:02)
[2023-12-17] MEDS: Insulin Lispro 100 UNIT/ML INSULN.PEN SC ×2 (16:09→21:34)
[2023-12-17 16:33] LABS: Bedside Glucose 165 mg/dL (74-106)
[2023-12-17] MEDS: oxyCODONE 5 MG Tablet PO ×2 (17:18→21:23)
[2023-12-17 17:49] LABS: Hematocrit 32.4 % (40-54); Mean Corp Hgb Conc 30.9 g/dL (32-36); Mean Corpuscular Hgb 28.1 pg (27.0-32.0); Mean Platelet Vol. 10.2 fl (6.2-12.0); Platelet Count 316 K/mm3 (150-450); RBC Distribution Width CV 14.1 % (11.6-14.6); RBC Distribution Width SD 47.4 fl (35.1-43.9); Red Blood Count 3.56 M/mm3 (4.6-6.2); White Blood Count 27.6 K/mm3 (4.4-11.0)
[2023-12-17 18:08] LABS: Anion Gap 6 (5-15); BUN 64 mg/dL (7-18); BUN/Creat Ratio 26.7 RATIO (10-20); Calcium,Total 8.8 mg/dL (8.5-10.1); Chloride 114 mmol/L (98-107); EST Glomerular Filtration Rate 28 mL/min (>60); Est Glom Filt Rate - Afr Amer 34 mL/min (>60); Estimated Creatinine Clearance 19.76 ml/min; Glucose 197 mg/dL (74-106); Magnesium 2.4 mg/dL (1.6-2.6); Potassium 4.9 mmol/L (3.5-5.1); Sodium Level 138 mmol/L (136-145)
[2023-12-17] MEDS: Carvedilol 12.5 MG Tablet PO (21:22)
[2023-12-17] MEDS: MELATONIN 10 MG TABLET PO (21:23)
[2023-12-17] MEDS: traZODone 50 MG Tablet PO (21:23)
[2023-12-17] MEDS: Menthol/Lanolin/Calamine/Znox 113 GM Tube 1 APPLIC TOPICAL (21:23)
[2023-12-17] MEDS: Atorvastatin Calcium 80 MG Tablet PO (21:23)
[2023-12-17] MEDS: Gabapentin 100 MG Capsule PO (21:23)
[2023-12-17] MEDS: 0.9% Normal Saline (250mL Bag) 250 ML 15 ML IV (21:24)
[2023-12-17] MEDS: Insulin Glargine-YFGN 100 UNIT/ML Pen 10 UNIT SC (21:34)
[2023-12-17 21:57] LABS: Bedside Glucose 210 mg/dL (74-106)
[2023-12-18] VITALS (28 sets, daily range): BP systolic 85–123; BP diastolic 46–93; PULSE 68–90; RESP 12–31; TEMP 35.8–36.8; O2SAT 93–100; BMI 23.8
[2023-12-18 04:12] LABS: Absolute Lymphocyte Count 1.36 X10^3/uL (0.83-4.51); Absolute Neutrophil Count 17.3 X10^3/uL (2.0-7.7); Basophil# 0.03 X10^3/uL; Basophil% 0.1 % (0-1); Hematocrit 24.4 % (40-54); Hemoglobin 7.5 g/dL (13.0-16.5); Lymphocyte # 1.36 X10^3/ul (0.83-4.51); Lymphocyte % 6.7 % (19-41); Mean Corp Hgb Conc 30.7 g/dL (32-36); Mean Corpuscular Hgb 28.1 pg (27.0-32.0); Mean Corpuscular Volume 91.4 fL (80-94); Mean Platelet Vol. 10.4 fl (6.2-12.0); Monocyte# 1.39 X10^3/uL; Monocyte% 6.9 % (0-10); NRBC Flagged by Analyzer 0 % (0-5); Neutrophil # 17.29 X10^3/uL (2.7-7.7); Neutrophil % 85.3 % (47-70); Platelet Count 350 K/mm3 (150-450); RBC Distribution Width CV 14.2 % (11.6-14.6); RBC Distribution Width SD 47.5 fl (35.1-43.9); Red Blood Count 2.67 M/mm3 (4.6-6.2); White Blood Count 20.3 K/mm3 (4.4-11.0)
[2023-12-18 04:25] LABS: Anion Gap 5 (5-15); BUN 66 mg/dL (7-18); BUN/Creat Ratio 25.9 RATIO (10-20); Calcium,Total 7.7 mg/dL (8.5-10.1); Chloride 115 mmol/L (98-107); Creatinine, Serum 2.55 mg/dL (0.70-1.30); EST Glomerular Filtration Rate 26 mL/min (>60); Est Glom Filt Rate - Afr Amer 31 mL/min (>60); Estimated Creatinine Clearance 18.59 ml/min; Glucose 198 mg/dL (74-106); Potassium 5.2 mmol/L (3.5-5.1); Sodium Level 142 mmol/L (136-145)
[2023-12-18] MEDS: Insulin Lispro 100 UNIT/ML INSULN.PEN SC ×4 (08:44→20:36)
[2023-12-18] MEDS: Juven (unflavored) Packet 1 PACKET PO ×2 (08:44→16:28)
[2023-12-18] MEDS: Polyethylene Glycol 3350 17 GM PACKET PO (08:45)
[2023-12-18] MEDS: Senna/Docusate Sodium 1 Tablet 2 TABLET PO ×2 (08:45→20:36)
[2023-12-18] MEDS: Piperacil/Tazobactam 3.375 GM in 0.9% Normal Saline (50mL MB+) 50 ML IV ×2 (08:49→20:35)
[2023-12-18] MEDS: Escitalopram Oxalate 20 MG Tablet PO (08:49)
[2023-12-18 08:57] LABS: Bedside Glucose 177 mg/dL (74-106)
--- NOTE | 2023-12-18 09:49 | CASEMGMT ---
Therapy is needing to see this pt for the potentiality of starting precertification today. Therapy called at this time and they state they will be seeing the pt today.
[2023-12-18] MEDS: Menthol/Lanolin/Calamine/Znox 113 GM Tube 1 APPLIC TOPICAL ×2 (09:59→20:37)
[2023-12-18] MEDS: Aspirin 81 MG TAB.CHEW PO (10:00)
[2023-12-18] MEDS: Carvedilol 12.5 MG Tablet PO ×2 (10:00→20:36)
[2023-12-18] MEDS: Clopidogrel Bisulfate 75 MG Tablet PO (10:00)
[2023-12-18] MEDS: oxyCODONE 5 MG Tablet PO ×2 (10:00→23:19)
[2023-12-18] MEDS: Pantoprazole Sodium 40 MG Tablet PO (10:00)
--- NOTE | 2023-12-18 10:40 | CASEMGMT ---
SW asked Radha to send updates to [place] and asked that they start pre-cert. Rachelle Arreola CARAMEL MAKER ANGLE
[2023-12-18] MEDS: Ferrous Sulfate 325 MG Tablet PO (11:11)
[2023-12-18] MEDS: Insulin Glargine-YFGN 100 UNIT/ML Pen 10 UNIT SC ×2 (11:12→20:36)
[2023-12-18 11:37] LABS: Bedside Glucose 245 mg/dL (74-106)
[2023-12-18 11:46] LABS: Hematocrit 23.5 % (40-54); Hemoglobin 7.4 g/dL (13.0-16.5)
--- NOTE | 2023-12-18 12:01 | CHAPLAIN ---
Type of Pastoral Visit ___ Initial Visit _x__ Follow-up Visit ___ On-call Visit ___ General Patient Visit ___ Spiritual Assessment ___ Family Conference ___ Bereavement ___ Rapid Response ___ Code Blue ___ Other (describe below) Pastoral Care Referral From _x__ Patient _x__ Family ___ Nurse ___ Physician ___ General Hardware Salesperson ___ Electric Melt Operator ___ Other (describe below) Sacrament/Intervention _x__ Active listening ___ Anointing ___ Druze ___ Bereavement ___ Communion ___ Tanna exploration ___ _x__ Life review _x__ Prayer ___ Reconciliation ___ Sacrament of Sick _x__ Supportive presence ___ Wedding ___ Other (describe below) Pastoral Comments this patient was seen last week in [facility] and is now in ICU; pt had surgery yesterday and is having difficulty with being alert and clear minded; spouse is in the room and she was offered time to talk and express her feelings; pt did answer a few questions with simple words; spouse gives some life review; spouse welcomes a prayer for support
--- NOTE | 2023-12-18 12:23 | PN.HOSP_ITS ---
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 (12/06/23) Peripheral vascular disease, unspecified (12/06/23) Cellulitis of right lower limb (12/06/23) Non-pressure chronic ulcer of other part of unspecified foot with unspecified severity (12/06/23) Non-pressure chronic ulcer of other part of right foot with necrosis of bone (12/06/23) Osteomyelitis, unspecified (12/06/23) Chronic kidney disease, stage 4 (severe) (12/06/23) Encounter for preprocedural cardiovascular examination (12/06/23) Presence of aortocoronary bypass graft (12/06/23) Objective Data Objective Data Vital Signs: Vital Signs Temp Pulse Resp BP Pulse Ox O2 Del Method O2 Flow Rate 96.5 F L 73 20 H 93/46 L 98 Room Air 2 12/18/23 12:00 12/18/23 12:00 12/18/23 12:00 12/18/23 12:00 12/18/23 12:00 12/18/23 12:00 12/18/23 06:00 Oxygen Flow Rate (L/min) 2 Oxygen Delivery Method Room Air Weight: 134 lb 11.239 oz Body Mass Index (BMI) 23.8 Intake & Output: Intake and Output for Last 24 Hours 12/16/23 12/17/23 12/18/23 23:59 23:59 23:59 Intake Total 976.25 / 976.25 246.25 / 246.25 150 / 150 Output Total 200 / 200 1215 / 1215 250 / 250 Balance 776.25 / 776.25 -968.75 / -968.75 -100 / -100 Lab / Micro Data 12/18/23 11:33 12/18/23 04:05 Labs: Laboratory Results - last 24 hr 12/17/23 12:12: POC Glucose 149 H 12/17/23 16:07: POC Glucose 165 H 12/17/23 17:30: WBC 27.6 H, RBC 3.56 L, Hgb 10.0 L, Hct 32.4 L, MCV 91.0, MCH 28.1, MCHC 30.9 L, RDW Std Deviation 47.4 H, RDW Coeff of Milad 14.1, Plt Count 316, MPV 10.2, Sodium 138, Potassium 4.9, Chloride 114 H, Carbon Dioxide 18.0 L, Anion Gap 6, BUN 64 H, Creatinine 2.40 H, Estim Creat Clear Calc 19.76, Est GFR (MDRD) Af Amer 34 L, Est GFR (MDRD) Non-Af 28 L, BUN/Creatinine Ratio 26.7 H, Glucose 197 H, Calcium 8.8, Phosphorus 4.0, Magnesium 2.4 12/17/23 21:33: POC Glucose 210 H 12/18/23 04:05: WBC 20.3 H, RBC 2.67 L, Hgb 7.5 L, Hct 24.4 L, MCV 91.4, MCH 28.1, MCHC 30.7 L, RDW Std Deviation 47.5 H, RDW Coeff of Milad 14.2, Plt Count 350, MPV 10.4, Immature Gran % (Auto) 1.000 H, Neut % (Auto) 85.3 H, Lymph % (Auto) 6.7 L, [place] % (Auto) 6.9, Eos % (Auto) 0.0, Baso % (Auto) 0.1, Absolute Neuts (auto) 17.3 H, Absolute Lymphs (auto) 1.36, Nucleated RBC % 0, Sodium 142, Potassium 5.2 H, Chloride 115 H, Carbon Dioxide 22.0, Anion Gap 5, BUN 66 H, Creatinine 2.55 H, Estim Creat Clear Calc 18.59, Est GFR (MDRD) Af Amer 31 L, Est GFR (MDRD) Non-Af 26 L, BUN/Creatinine Ratio 25.9 H, Glucose 198 H, Calcium 7.7 L 12/18/23 08:40: POC Glucose 177 H 12/18/23 11:00: Hgb Cancelled, Hct Cancelled, Diff Path Review Cancelled 12/18/23 11:10: POC Glucose 245 H 12/18/23 11:33: Hgb 7.4 L, Hct 23.5 L Micro: Microbiology 12/14/23 19:35 Stool Stool Occult Blood (SANA) - Final 12/07/23 13:30 Tissue - 5th Toe Gram Stain - Final 12/07/23 13:30 Tissue - 5th Toe Wound Culture - Final Klebsiella pneumoniae sp pneum Enterococcus faecalis Corynebacterium amycolatum Pseudomonas aeruginosa 12/07/23 13:30 Tissue - 5th Toe Anaerobic Culture - Final Bacteroides fragilis Anaerobic cocci 12/06/23 11:50 Blood Culture (Wb) - Right Hand Blood Culture - Final No growth in 5 days. 12/06/23 11:45 Blood Culture (Wb) - Left Wrist Blood Culture - Final No growth in 5 days. Physical Exam Narrative Seen and examined. Patient had femoropopliteal bypass surgery on 12/17/2023. Complain of pain over right lower extremity mainly around below knee area around graft. Physical exam: General: Alert oriented x 3. Moderate to severe pain. HEENT: Atraumatic, PERRLA, EOMI, Normocephalic Oral: Oral mucosa moist. No Gingival or Mucosal Lesions/ Ulcerations Neck: Supple, No JVD, Negative Carotid Bruits Chest wall/Lungs: Air entry diminished in bilateral lung bases. No crepitation/rhonchi Cardiovascular: Regular rate, Regular Rhythm, Normal S1, Normal S2, No M/G/R Abdomen: Bowel Sounds Present, Soft, Non Tender, Non-Distended. No abdominal or retroperitoneal region tenderness. :clear urine.: No renal angle tenderness. No suprapubic tenderness. Extremities: Tenderness present around right posterior lateral region more than thigh. No edema, Capillary Refill Less than 3 Seconds. No Skin: Had right sided fifth ray amputation on 12/07. Right groin femoral access, has wound VAC. Right leg access is closed. Mild bruise around the right groi n/inguinal region. Musculoskeletal: No Tenderness to Palpation of Joints or Extremities.. Had left fifth ray amputation. Neurological: Cranial nerves II-XII grossly intact, DTR 2+/4. No acute focal neurological deficit. Psych/Mental Status: Flat affect. Does not remember well. Dementia. Assessment & Plan Assessment/Plan (1) Diabetes mellitus with diabetic polyneuropathy: (2) Osteomyelitis: (3) Diabetic foot ulcer: (4) PVD (peripheral vascular disease) with claudication: PLAN: Plan This is a 78-year-old male was admitted for nonhealing wound on the right foot for about 3 months being followed by Dr. Alva. Right diabetic foot infection/osteomyelitis Patient had partial fifth ray amputation of right foot, partial fourth metatarsal amputation, incision of bone cortex and wide debridement of necrotic tissue in right foot and skin flap right foot on 12/07/2023. -Cultures are currently showing Klebsiella, Enterococcus, corynebacterium, Pseudomonas, Bacteroides, and another ANNITA aerobic cocci -ID is following and has recommended Zosyn for another 7 days via IV after discharge however plan is for surgery on Sunday with vascular 12/18/2023-ID recommended 1 week of IV Zosyn at discharge via midline on 12/12 which she completes today on 12/18/2023. Discussed with Dr. Balderas. PAD, atherosclerosis with right infected foot status post amputation left fifth ray amputation and a valve surgery during this hospital stay -Patient underwent angiogram with runoff yesterday and patient does have significant vascular disease however none is amenable to endovascular treatment -On 12/17/2023 patient had right femoral popliteal bypass with cadaver GSV. -Continue aspirin and Plavix -Continue risk factor modification with atorvastatin CKD stage IV/renal mass -Previous MRI showed abnormal kidney -Plan is for outpatient follow-up ultrasound per nephrology documentation -Renal function is stable -Nephrology consulted and appreciate input Acute blood loss postoperative anemia on chronic anemia secondary to renal disease/chronic disease -Hemoglobin on admission was 11.7 and slowly trending down -Iron studies are consistent with anemia of chronic disease -Stool occult was negative -12/18/2023: Baseline hemoglobin 9 to 10 g dropped to 7.4 yesterday night after femoropopliteal surgery. Monitor PRBC ordered. Chronic HFrEF -Last echo from 04/2022 showed segmental systolic dysfunction with EF of 50% -Continue monitoring daily weights -I's and O's -Continue beta-hernán -Hold Lasix until okay to restart per nephrology DM-2/diabetic neuropathy -Continue home Neurontin -A1c is 7.9 -Continue Lantus 10 units twice daily with stable renal function -Will decrease dose by 50% and give 5 units tonight in preparation for OR tomorrow -Continue SSI -Continue monitoring GERD -Continue home PPI CAD/HTN/HPL -Continue home aspirin and Plavix -Continue on beta-hernán -Continue home statin -Continue home hydralazine Depression -Continue home escitalopram -Continue home trazodone Cognitive impairment -Highly suspect vascular related with history -Continue risperidone Debility -Plan is for skilled placement at discharge -Patient has been accepted at [facility] and will be discharged there once stable after surgery DVT prophylaxis -Continue subcu heparin CODE STATUS -Full code is verified admission Charges/Coding Visit Charges Inpatient E&M: 66192 Subs Hosp L3
--- NOTE | 2023-12-18 12:24 | PN.RENAL_ITS ---
Subjective Subjective Asking about going home Objective Data Objective Data Vital Signs: Vital Signs Temp Pulse Resp BP Pulse Ox O2 Del Method O2 Flow Rate 96.5 F L 73 20 H 93/46 L 98 Room Air 2 12/18/23 12:00 12/18/23 12:00 12/18/23 12:00 12/18/23 12:00 12/18/23 12:00 12/18/23 12:00 12/18/23 06:00 Oxygen Flow Rate (L/min) 2 Oxygen Delivery Method Room Air Weight: 61.1 kg Body Mass Index (BMI) 23.8 Intake & Output: Intake and Output for Last 24 Hours 12/16/23 12/17/23 12/18/23 23:59 23:59 23:59 Intake Total 976.25 / 976.25 246.25 / 246.25 150 / 150 Output Total 200 / 200 1215 / 1215 250 / 250 Balance 776.25 / 776.25 -968.75 / -968.75 -100 / -100 Lab / Micro Data 12/18/23 11:33 12/18/23 04:05 Labs: Laboratory Results - last 24 hr 12/17/23 12:12: POC Glucose 149 H 12/17/23 16:07: POC Glucose 165 H 12/17/23 17:30: WBC 27.6 H, RBC 3.56 L, Hgb 10.0 L, Hct 32.4 L, MCV 91.0, MCH 28.1, MCHC 30.9 L, RDW Std Deviation 47.4 H, RDW Coeff of Milad 14.1, Plt Count 316, MPV 10.2, Sodium 138, Potassium 4.9, Chloride 114 H, Carbon Dioxide 18.0 L, Anion Gap 6, BUN 64 H, Creatinine 2.40 H, Estim Creat Clear Calc 19.76, Est GFR (MDRD) Af Amer 34 L, Est GFR (MDRD) Non-Af 28 L, BUN/Creatinine Ratio 26.7 H, Glucose 197 H, Calcium 8.8, Phosphorus 4.0, Magnesium 2.4 12/17/23 21:33: POC Glucose 210 H 12/18/23 04:05: WBC 20.3 H, RBC 2.67 L, Hgb 7.5 L, Hct 24.4 L, MCV 91.4, MCH 28.1, MCHC 30.7 L, RDW Std Deviation 47.5 H, RDW Coeff of Milad 14.2, Plt Count 350, MPV 10.4, Immature Gran % (Auto) 1.000 H, Neut % (Auto) 85.3 H, Lymph % (Auto) 6.7 L, [place] % (Auto) 6.9, Eos % (Auto) 0.0, Baso % (Auto) 0.1, Absolute Neuts (auto) 17.3 H, Absolute Lymphs (auto) 1.36, Nucleated RBC % 0, Sodium 142, Potassium 5.2 H, Chloride 115 H, Carbon Dioxide 22.0, Anion Gap 5, BUN 66 H, Creatinine 2.55 H, Estim Creat Clear Calc 18.59, Est GFR (MDRD) Af Amer 31 L, Est GFR (MDRD) Non-Af 26 L, BUN/Creatinine Ratio 25.9 H, Glucose 198 H, Calcium 7.7 L 12/18/23 08:40: POC Glucose 177 H 12/18/23 11:00: Hgb Cancelled, Hct Cancelled, Diff Path Review Cancelled 12/18/23 11:10: POC Glucose 245 H 12/18/23 11:33: Hgb 7.4 L, Hct 23.5 L Micro: Microbiology 12/14/23 19:35 Stool Stool Occult Blood (SANA) - Final 12/07/23 13:30 Tissue - 5th Toe Gram Stain - Final 12/07/23 13:30 Tissue - 5th Toe Wound Culture - Final Klebsiella pneumoniae sp pneum Enterococcus faecalis Corynebacterium amycolatum Pseudomonas aeruginosa 12/07/23 13:30 Tissue - 5th Toe Anaerobic Culture - Final Bacteroides fragilis Anaerobic cocci 12/06/23 11:50 Blood Culture (Wb) - Right Hand Blood Culture - Final No growth in 5 days. 12/06/23 11:45 Blood Culture (Wb) - Left Wrist Blood Culture - Final No growth in 5 days. Physical Exam Narrative Alert awake oriented x 3 no obvious distress s1s2 no murmurs lungs clear abdomen soft no edema Assessment & Plan Assessment/Plan (1) Chronic renal failure, stage 4 (severe): PLAN: Impression/Plan: The patient is a 78-year-old man with past history of type 2 diabetes mellitus, hypertension, PAD, HFrEF, iron deficiency anemia, and hyperlipidemia. The pat lillie presented to hospital with right foot wound. The patient is being treated for right diabetic foot ulcer/cellulitis with concern for osteomyelitis. Nephrology is following for MOISÉS on CKD. Acute kidney injury on chronic kidney disease stage G4. Last known lab is from 12/05/2022 SCr 2.26 mg/dL. Reviewed past labs from 2018 to 2022 patient has had fluctuating serum creatinines (~2.3-2.6) but baseline is possibly ranging around 2.5 mg/dL. Overall creatinine has been stable Reviewed old imaging. He had an MRI in 2019 which showed a possible renal tumor. Repeat renal ultrasound as outpatient
--- NOTE | 2023-12-18 16:20 | PCM.PN.SRG ---
Subjective Subjective Patient was seen today resting in bedside chair. He is oriented to self, but otherwise confused. He answers some questions appropriately. He reports pain/soreness in his R leg at the incision sites. WBC is downtrending. Hgb was 7.5 this morning from 10 yesterday. Repeat Hgb 4 hours later was 7.4. His blood pressures have been lower today. Plan at d/c is to go to SNF. Objective Data Objective Data Vital Signs: Vital Signs Temp Pulse Resp BP Pulse Ox O2 Del Method O2 Flow Rate 96.8 F L 82 22 H 107/49 L 95 Room Air 2 12/18/23 15:48 12/18/23 16:00 12/18/23 16:00 12/18/23 16:00 12/18/23 16:00 12/18/23 16:00 12/18/23 06:00 Oxygen Flow Rate (L/min) 2 Oxygen Delivery Method Room Air Weight: 134 lb 11.239 oz Body Mass Index (BMI) 23.8 Intake & Output: Intake and Output for Last 24 Hours 12/16/23 12/17/23 12/18/23 23:59 23:59 23:59 Intake Total 976.25 / 976.25 246.25 / 246.25 201 / 201 Output Total 200 / 200 1215 / 1215 250 / 250 Balance 776.25 / 776.25 -968.75 / -968.75 -49 / -49 Lab / Micro Data 12/18/23 11:33 12/18/23 04:05 Labs: Laboratory Results - last 24 hr 12/17/23 04:20: Crossmatch See Detail 12/17/23 16:07: POC Glucose 165 H 12/17/23 17:30: WBC 27.6 H, RBC 3.56 L, Hgb 10.0 L, Hct 32.4 L, MCV 91.0, MCH 28.1, MCHC 30.9 L, RDW Std Deviation 47.4 H, RDW Coeff of Milad 14.1, Plt Count 316, MPV 10.2, Sodium 138, Potassium 4.9, Chloride 114 H, Carbon Dioxide 18.0 L, Anion Gap 6, BUN 64 H, Creatinine 2.40 H, Estim Creat Clear Calc 19.76, Est GFR (MDRD) Af Amer 34 L, Est GFR (MDRD) Non-Af 28 L, BUN/Creatinine Ratio 26.7 H, Glucose 197 H, Calcium 8.8, Phosphorus 4.0, Magnesium 2.4 12/17/23 21:33: POC Glucose 210 H 12/18/23 04:05: WBC 20.3 H, RBC 2.67 L, Hgb 7.5 L, Hct 24.4 L, MCV 91.4, MCH 28.1, MCHC 30.7 L, RDW Std Deviation 47.5 H, RDW Coeff of Milad 14.2, Plt Count 350, MPV 10.4, Immature Gran % (Auto) 1.000 H, Neut % (Auto) 85.3 H, Lymph % (Auto) 6.7 L, [place] % (Auto) 6.9, Eos % (Auto) 0.0, Baso % (Auto) 0.1, Absolute Neuts (auto) 17.3 H, Absolute Lymphs (auto) 1.36, Nucleated RBC % 0, Sodium 142, Potassium 5.2 H, Chloride 115 H, Carbon Dioxide 22.0, Anion Gap 5, BUN 66 H, Creatinine 2.55 H, Estim Creat Clear Calc 18.59, Est GFR (MDRD) Af Amer 31 L, Est GFR (MDRD) Non-Af 26 L, BUN/Creatinine Ratio 25.9 H, Glucose 198 H, Calcium 7.7 L 12/18/23 08:40: POC Glucose 177 H 12/18/23 11:00: Hgb Cancelled, Hct Cancelled, Diff Path Review Cancelled 12/18/23 11:10: POC Glucose 245 H 12/18/23 11:33: Hgb 7.4 L, Hct 23.5 L Micro: Microbiology 12/14/23 19:35 Stool Stool Occult Blood (SANA) - Final 12/07/23 13:30 Tissue - 5th Toe Gram Stain - Final 12/07/23 13:30 Tissue - 5th Toe Wound Culture - Final Klebsiella pneumoniae sp pneum Enterococcus faecalis Corynebacterium amycolatum Pseudomonas aeruginosa 12/07/23 13:30 Tissue - 5th Toe Anaerobic Culture - Final Bacteroides fragilis Anaerobic cocci 12/06/23 11:50 Blood Culture (Wb) - Right Hand Blood Culture - Final No growth in 5 days. 12/06/23 11:45 Blood Culture (Wb) - Left Wrist Blood Culture - Final No growth in 5 days. Physical Exam Const alert and no apparent distress General Appearance: cooperative and comfortable HEENT normocephalic, head/scalp atraumatic, hearing grossly normal bilaterally, external ears normal and external nose normal Eyes EOMs intact bilaterally General Eye: normal appearance of both eyes Neck General: normal visual inspection and trachea midline Resp normal respiratory effort, no retractions and no use of accessory muscles Effort and Inspection: able to speak in complete sentences; Negative for labored, stridor or audible wheezes Cardio regular rate and regular rhythm Extremity Extremity Narrative: R PT with low-resistance biphasic signal. R foot is warm and pink. RLE edema. R groin with Prevena vac in place and maintaining seal. No significant ecchymosis or swelling noted. Skin Wounds: wounds noted Neuro CN's II-XII intact bilaterally, moves all extremities, no focal motor deficits and no sensory deficits noted Assessment & Plan Assessment/Plan (1) PVD (peripheral vascular disease) with claudication: (2) Non-pressure chronic ulcer of other part of right foot with necrosis of bone: PLAN: Plan Incision site dressings remain C/D/I. These will remain in place for 1 week. RLE edema is expected secondary to reperfusion. Try to elevate on pillows. His Hgb was 7.4 on repeat today so 1 unit PBRCs was ordered and transfused. Will continue to monitor Hgb.
[2023-12-18 16:54] LABS: Bedside Glucose 201 mg/dL (74-106)
[2023-12-18] MEDS: RisperiDONE 0.5 MG Tablet PO (20:35)
[2023-12-18] MEDS: Gabapentin 100 MG Capsule PO (20:35)
[2023-12-18] MEDS: MELATONIN 10 MG TABLET PO (20:36)
[2023-12-18] MEDS: Atorvastatin Calcium 80 MG Tablet PO (20:36)
[2023-12-18 21:01] LABS: Bedside Glucose 249 mg/dL (74-106)
[2023-12-19] VITALS (24 sets, daily range): BP systolic 100–131; BP diastolic 48–94; PULSE 70–88; RESP 15–25; TEMP 36.1–36.4; O2SAT 93–100; BMI 24.7
[2023-12-19 03:09] LABS: Absolute Lymphocyte Count 1.69 X10^3/uL (0.83-4.51); Absolute Neutrophil Count 18.2 X10^3/uL (2.0-7.7); Basophil# 0.08 X10^3/uL; Basophil% 0.4 % (0-1); Eosinophil# 0.01 X10^3/uL; Lymphocyte # 1.69 X10^3/ul (0.83-4.51); Lymphocyte % 7.6 % (19-41); Mean Corp Hgb Conc 30.8 g/dL (32-36); Mean Corpuscular Hgb 28.2 pg (27.0-32.0); Mean Corpuscular Volume 91.5 fL (80-94); Mean Platelet Vol. 10.4 fl (6.2-12.0); Monocyte# 1.94 X10^3/uL; Monocyte% 8.8 % (0-10); NRBC Flagged by Analyzer 0 % (0-5); Neutrophil # 18.17 X10^3/uL (2.7-7.7); Neutrophil % 82.2 % (47-70); POSITIVE DIFFERENTIAL YES; Platelet Count 335 K/mm3 (150-450); RBC Distribution Width CV 14.6 % (11.6-14.6); RBC Distribution Width SD 48.8 fl (35.1-43.9); Red Blood Count 2.84 M/mm3 (4.6-6.2); White Blood Count 22.1 K/mm3 (4.4-11.0)
[2023-12-19 03:22] LABS: Differential Indicated SCAN CRITERIA MET
[2023-12-19 03:55] LABS: Differential Comment SCANNED
[2023-12-19] MEDS: oxyCODONE 5 MG Tablet PO ×3 (04:57→18:39)
[2023-12-19] MEDS: Morphine 2 MG/ML Syringe IV (06:26)
--- NOTE | 2023-12-19 06:37 | NURSING ---
Pt complaining of increased pain in groin and right foot. Area around wound vac noted to be slightly more firm compared to prior examination. Posterior tibial pulse still present with doppler. Oxy ineffective, PRN morphine given. Dr. Alvarenga updated on increased pain and groin site. He said he will be in to look at it this morning.
[2023-12-19] MEDS: Menthol/Lanolin/Calamine/Znox 113 GM Tube 1 APPLIC TOPICAL ×2 (08:41→20:33)
[2023-12-19] MEDS: Aspirin 81 MG TAB.CHEW PO (08:41)
[2023-12-19] MEDS: Carvedilol 12.5 MG Tablet PO ×2 (08:41→20:31)
[2023-12-19] MEDS: Escitalopram Oxalate 20 MG Tablet PO (08:42)
[2023-12-19] MEDS: Clopidogrel Bisulfate 75 MG Tablet PO (08:42)
[2023-12-19] MEDS: Pantoprazole Sodium 40 MG Tablet PO (08:42)
[2023-12-19] MEDS: Insulin Glargine-YFGN 100 UNIT/ML Pen 10 UNIT SC ×2 (08:45→20:32)
[2023-12-19] MEDS: Insulin Lispro 100 UNIT/ML INSULN.PEN SC ×4 (08:45→20:32)
--- NOTE | 2023-12-19 08:46 | CASEMGMT ---
Discharge Planning Updates sent to [facility] Radha Melara, Discharge Planning Asst.
[2023-12-19 09:02] LABS: Bedside Glucose 201 mg/dL (74-106)
--- NOTE | 2023-12-19 11:13 | WOUNDNOTE ---
wound photo: right foot
--- NOTE | 2023-12-19 11:14 | WOUNDNOTE ---
wound photo: right foot
--- NOTE | 2023-12-19 11:27 | ECHOD_ITS ---
Reason For Study: ARRHYTHMIA Procedure This was a 2D Doppler, Color Flow transthoracic echocardiogram. Patient was scanned in supine position during reflux assessment. Exam performed portable in ICU/CCU. Left Ventricle Moderately dilated left ventricle. Severe global left ventricular systolic dysfunction. The left ventricular ejection fraction is 30 %. Right Ventricle Normal RV size. Mild segmental dysfunction of right ventricle. Atria The left atrium is mildly enlarged. Normal right atrium. Mitral Valve Moderately severe (3+) mitral valve insufficiency. Tricuspid Valve Mild tricuspid valve insufficiency. Right ventricular systolic pressure estimated to be 38 mmHg. Aortic Valve Trisinus/trileaflet aortic valve. Pulmonic Valve The pulmonic valve is not well visualized. Trivial pulmonic valve insufficiency. Great Vessels Normal sized aortic root. Pericardium/Pleural No pericardial effusion. MMode/2D Measurements & Calculations LVIDd: 6.2 cm IVSd: 0.74 cm LVOT diam: 2.0 cm LVIDs: 5.3 cm LVPWd: 0.93 cm LVOT area: 3.1 cm2 RVDd: 4.4 cm FS: 15.8 % Ao root diam: 3.2 cm LAV(MOD-bp): 71.4 ml LVAd ap4: 39.3 cm2 LAV(MOD-bp) Indexed: 43.1 ml/m2 LVLd ap4: 8.2 cm LAV(MOD-sp2): 79.6 ml EDV(MOD-sp4): 154.0 ml LAV(MOD-sp4): 58.9 ml EDV(sp4-el): 158.8 ml LVAs ap4: 32.4 cm2 LVLs ap4: 7.9 cm ESV(MOD-sp4): 109.9 ml ESV(sp4-el): 112.3 ml EF(MOD-sp4): 28.7 % EF(sp4-el): 29.3 % LVAd ap2: 45.5 cm2 SV(MOD-sp4): 44.1 ml SV(MOD-sp2): 60.3 ml LVLd ap2: 9.1 cm EDV(MOD-sp2): 187.3 ml EDV(sp2-el): 194.4 ml LVAs ap2: 36.8 cm2 LVLs ap2: 8.8 cm ESV(MOD-sp2): 127.1 ml ESV(sp2-el): 130.8 ml EF(MOD-sp2): 32.2 % SV(sp4-el): 46.5 ml LA dimension(2D): 3.8 cm LA A4 area: 20.5 cm2 RA A4 area: 16.2 cm2 TAPSE: 1.4 cm Time Measurements MV dec time: 0.08 sec Doppler Measurements & Calculations MV E max silvio: 98.8 cm/sec Lat Peak E' Silvio: 3.4 cm/sec Med Peak E' Silvio: 3.0 cm/sec MV A max silvio: 64.9 cm/sec E/E' lat: 28.8 E/E' med: 32.5 MV E/A: 1.5 Ao V2 max: 132.7 cm/sec LV V1 max: 95.3 cm/sec MV dec slope: 1218 cm/sec2 Ao max P.0 mmHg LV V1 max P.6 mmHg Ao V2 mean: 79.0 cm/sec LV V1 mean P.6 mmHg Ao mean P.0 mmHg LV V1 mean: 58.0 cm/sec Ao V2 VTI: 25.7 cm LV V1 VTI: 18.2 cm AV (velocity ratio): 0.71 SCOT(I,D): 2.2 cm2 SCOT(V,D): 2.2 cm2 SV(LVOT): 56.5 ml PA V2 max: 73.4 cm/sec TR max silvio: 289.9 cm/sec PA max PG (full): 1.3 mmHg TR max P.6 mmHg ECHO/Echo Complete Interpretation Summary Moderately dilated left ventricle. Severe global left ventricular systolic dysfunction. The left ventricular ejection fraction is 25-30 %. Mild segmental dysfunction of right ventricle. The left atrium is mildly enlarged. Moderately severe (3+) mitral valve insufficiency. Right ventricular systolic pressure estimated to be 38 mmHg. Ordering Physician: Vini Mooney Performed By: Blanka Devlin RDCS
--- NOTE | 2023-12-19 11:28 | PCM.PN.CARD ---
Subjective Subjective I was asked to reevaluate the patient urgently due to ventricular tachycardia documented on his telemetry. The patient has a history of a dilated cardiomyopathy with an ejection fraction in the 40% range on an echocardiogram in 2021. He has known vascular disease right lower extremity revascularization surgical procedure on this admission and a history of of coronary bypass graft surgery. The patient suffers from dementia and is unable to answer questions. He denies any chest pains denies any lightheaded or dizzy spells but he is essentially confined to the bed at this point in time. His last electrolytes showed an elevated potassium of 5.2. Objective Data Vital Signs: Vital Signs Temp Pulse Resp BP Pulse Ox O2 Del Method O2 Flow Rate 97.1 F L 79 17 119/58 L 100 Room Air 2 12/19/23 08:00 12/19/23 10:00 12/19/23 10:00 12/19/23 10:00 12/19/23 10:00 12/19/23 10:00 12/18/23 06:00 Oxygen Flow Rate (L/min) 2 Oxygen Delivery Method Room Air Weight: 139 lb 5.314 oz Body Mass Index (BMI) 24.7 Intake & Output: Intake and Output for Last 24 Hours 12/17/23 12/18/23 12/19/23 23:59 23:59 23:59 Intake Total 246.25 / 246.25 669.25 / 869.25 447.25 / 447.25 Output Total 1215 / 1215 375 / 675 550 / 550 Balance -968.75 / -968.75 294.25 / 194.25 -102.75 / -102.75 Lab / Micro Data Attestation: I reviewed the patient's lab results. 12/19/23 02:55 12/18/23 04:05 Labs: Laboratory Results - last 24 hr 12/17/23 04:20: Crossmatch See Detail 12/18/23 11:10: POC Glucose 245 H 12/18/23 11:33: Hgb 7.4 L, Hct 23.5 L 12/18/23 16:26: POC Glucose 201 H 12/18/23 20:33: POC Glucose 249 H 12/19/23 02:55: WBC 22.1 H, RBC 2.84 L, Hgb 8.0 L, Hct 26.0 L, MCV 91.5, MCH 28.2, MCHC 30.8 L, RDW Std Deviation 48.8 H, RDW Coeff of Milad 14.6, Plt Count 335, MPV 10.4, Immature Gran % (Auto) 1.000 H, Neut % (Auto) 82.2 H, Lymph % (Auto) 7.6 L, [place] % (Auto) 8.8, Eos % (Auto) 0.0, Baso % (Auto) 0.4, Absolute Neuts (auto) 18.2 H, Absolute Lymphs (auto) 1.69, Nucleated RBC % 0, Differential Comment SCANNED, Diff Path Review February12/19/23 08:44: POC Glucose 201 H Rhythm Strip Rhythm Strip: Sinus Rhythm Rate: 80 Ectopy: PVC(s) (Short runs of nonsustained VT on 2 occasions documented on telemetry.) Cardiology Labs/Tests 12/18/23 11:33: Hgb 7.4 L, Hct 23.5 L 12/19/23 02:55: WBC 22.1 H, RBC 2.84 L, Hgb 8.0 L, Hct 26.0 L, MCV 91.5, MCH 28.2, MCHC 30.8 L, Plt Count 335, MPV 10.4, Immature Gran % (Auto) 1.000 H, Neut % (Auto) 82.2 H, Lymph % (Auto) 7.6 L, [place] % (Auto) 8.8, Eos % (Auto) 0.0, Baso % (Auto) 0.4, Absolute Neuts (auto) 18.2 H, Nucleated RBC % 0 Rhythm: EKG: ECHO: Stress Test: Cardiac Cath: PCI: CT Surgery: Holter monitor: EPS: PPM: CXR: Chest CT Scan: Physical Exam Const Orientation / Consciousness: awake HEENT normocephalic Eyes EOMs intact bilaterally Neck no JVD Chest inspection of chest normal Resp normal respiratory effort Auscultation: wheezes expiratory wheezes Cardio regular rate, regular rhythm, S1 normal heart sound, S2 normal heart sound, no murmurs, no rub and no gallops GI soft to palpation Narrative: Stovall in place. Extremity Extremity Narrative: Right lower extremity foot is wrapped in wound VAC is in place over the incision. Skin no rashes or lesions noted Neuro Neuro Narrative: The patient is awake but does not respond appropriate to questions. Appears to be disoriented but he does follow simple commands. The nursing staff reports that he is much better than yesterday. Psych Psych Narrative: See neuro description Assessment & Plan Assessment/Plan (1) Ischemic cardiomyopathy: PLAN: Patient has a history of ischemic cardiomyopathy. His last ejection fraction was estimated at 40% on echo in 2021. Will reevaluate his LV function and valvular heart disease with an echocardiogram this may alter the medical regiment recommendations. (2) Chronic HFrEF (heart failure with reduced ejection fraction): PLAN: Patient has a history of chronic heart failure reduced ejection fraction. His home meds included carvedilol 12.5 mg twice daily Lasix 20 mg daily. He has a history of recent elevated potassiums in the 5.2 range. He would not be an ideal candidate for spironolactone. But I believe he may be up better treated with metoprolol then carvedilol to hopefully try and suppress some of the ventricular ectopy. Would also institute ARB therapy as indicated pending the outcome of the echocardiogram and monitoring of his renal status. (3) Ventricular tachyarrhythmia: PLAN: The patient had at least 2 short runs of ventricular tachycardia. These are monomorphic. He has a history of ischemic cardiomyopathy. EF known to be in the 40% range which will be reevaluated. He did have a potassium documented 5.2 his other electrolytes appear to be adequate we will recheck magnesium and calcium and his electrolytes today. His O2 sats 100% on nasal cannula. And he denies any anginal type symptoms. PLAN: Plan 1. Will change carvedilol to metoprolol to hopefully better suppress his ectopy. 2. Follow-up with 2D echocardiogram to evaluate his LV function. 3. Pending outcome of the echo would consider adding losartan to his medical regiment and monitor his renal function. 4. Would avoid spironolactone at this time given his elevated potassium. 5. Will check his electrolytes and treat appropriately. Charges/Coding Visit Charges Inpatient E&M: 79235 Subs Hosp L3
[2023-12-19] MEDS: Ferrous Sulfate 325 MG Tablet PO (11:50)
[2023-12-19 12:10] LABS: Bedside Glucose 175 mg/dL (74-106)
--- NOTE | 2023-12-19 12:41 | PN.HOSP_ITS ---
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 (12/06/23) Peripheral vascular disease, unspecified (12/06/23) Cellulitis of right lower limb (12/06/23) Non-pressure chronic ulcer of other part of unspecified foot with unspecified severity (12/06/23) Non-pressure chronic ulcer of other part of right foot with necrosis of bone (12/06/23) Osteomyelitis, unspecified (12/06/23) Chronic kidney disease, stage 4 (severe) (12/06/23) Encounter for preprocedural cardiovascular examination (12/06/23) Presence of aortocoronary bypass graft (12/06/23) Objective Data Objective Data Vital Signs: Vital Signs Temp Pulse Resp BP Pulse Ox O2 Del Method O2 Flow Rate 97.3 F L 78 20 H 126/66 H 95 Room Air 2 12/19/23 12:00 12/19/23 12:00 12/19/23 12:00 12/19/23 12:00 12/19/23 12:00 12/19/23 12:00 12/18/23 06:00 Oxygen Flow Rate (L/min) 2 Oxygen Delivery Method Room Air Weight: 139 lb 5.314 oz Body Mass Index (BMI) 24.7 Intake & Output: Intake and Output for Last 24 Hours 12/17/23 12/18/23 12/19/23 23:59 23:59 23:59 Intake Total 246.25 / 246.25 669.25 / 869.25 637.25 / 637.25 Output Total 1215 / 1215 375 / 675 875 / 875 Balance -968.75 / -968.75 294.25 / 194.25 -237.75 / -237.75 Lab / Micro Data 12/19/23 02:55 12/18/23 04:05 Labs: Laboratory Results - last 24 hr 12/17/23 04:20: Crossmatch See Detail 12/18/23 16:26: POC Glucose 201 H 12/18/23 20:33: POC Glucose 249 H 12/19/23 02:55: WBC 22.1 H, RBC 2.84 L, Hgb 8.0 L, Hct 26.0 L, MCV 91.5, MCH 28.2, MCHC 30.8 L, RDW Std Deviation 48.8 H, RDW Coeff of Milad 14.6, Plt Count 335, MPV 10.4, Immature Gran % (Auto) 1.000 H, Neut % (Auto) 82.2 H, Lymph % (Auto) 7.6 L, [place] % (Auto) 8.8, Eos % (Auto) 0.0, Baso % (Auto) 0.4, Absolute Neuts (auto) 18.2 H, Absolute Lymphs (auto) 1.69, Nucleated RBC % 0, Di fferential Comment SCANNED, Diff Path Review February12/19/23 08:44: POC Glucose 201 H 12/19/23 11:49: POC Glucose 175 H Micro: Microbiology 12/14/23 19:35 Stool Stool Occult Blood (SANA) - Final 12/07/23 13:30 Tissue - 5th Toe Gram Stain - Final 12/07/23 13:30 Tissue - 5th Toe Wound Culture - Final Klebsiella pneumoniae sp pneum Enterococcus faecalis Corynebacterium amycolatum Pseudomonas aeruginosa 12/07/23 13:30 Tissue - 5th Toe Anaerobic Culture - Final Bacteroides fragilis Anaerobic cocci 12/06/23 11:50 Blood Culture (Wb) - Right Hand Blood Culture - Final No growth in 5 days. 12/06/23 11:45 Blood Culture (Wb) - Left Wrist Blood Culture - Final No growth in 5 days. Rhythm Strip Rhythm Strip: Sinus Rhythm Rate: 80 Ectopy: PVC(s) (Short runs of nonsustained VT on 2 occasions documented on telemetry.) Physical Exam Narrative Seen and examined. Patient is still in significant pain on right lower extremity about 8/10 in intensity. Swelling tenderness, tightness/firmness of right leg. Patient had femoropopliteal bypass surgery on 12/17/2023. Physical exam: General: Alert oriented x 3. Moderate to severe pain. HEENT: Atraumatic, PERRLA, EOMI, Normocephalic Oral: Oral mucosa moist. No Gingival or Mucosal Lesions/ Ulcerations Neck: Supple, No JVD, Negative Carotid Bruits Chest wall/Lungs: Air entry diminished in bilateral lung bases. No crepitation/rhonchi Cardiovascular: Regular rate, Regular Rhythm, Normal S1, Normal S2, No M/G/R Abdomen: Bowel Sounds Present, Soft, Non Tender, Non-Distended. No abdominal or retroperitoneal region tenderness. :clear urine.: No renal angle tenderness. No suprapubic tenderness. Extremities: Induration, tenderness present around right posterior lateral region more than thigh. No edema, Capillary Refill Less than 3 Seconds. No Skin: Had right sided fifth ray amputation on 12/07. Right groin femoral access, has wound VAC. Mild bruise around the right groin/inguinal region. Musculoskeletal: No Tenderness to Palpation of Joints or Extremities.. Had left fifth ray amputation. Neurological: Cranial nerves II-XII grossly intact, DTR 2+/4. No acute focal neurological deficit. Psych/Mental Status: Flat affect. Does not remember well. Dementia. Assessment & Plan Assessment/Plan (1) Diabetes mellitus with diabetic polyneuropathy: (2) Osteomyelitis: (3) Diabetic foot ulcer: (4) PVD (peripheral vascular disease) with claudication: PLAN: Plan This is a 78-year-old male was admitted for nonhealing wound on the right foot for about 3 months being followed by Dr. Alva. Right diabetic foot infection/osteomyelitis Patient had partial fifth ray amputation of right foot, partial fourth metatarsal amputation, incision of bone cortex and wide debridement of necrotic tissue in right foot and skin flap right foot on 12/07/2023. -Cultures are currently showing Klebsiella, Enterococcus, corynebacterium, Pseudomonas, Bacteroides, and another ANNITA aerobic cocci -ID is following and has recommended Zosyn for another 7 days via IV after discharge however plan is for surgery on Sunday with vascular 12/18/2023-ID recommended 1 week of IV Zosyn at discharge via midline on 12/12 which she completes today on 12/18/2023. Discussed with Dr. Balderas. PAD, atherosclerosis with right infected foot status post amputation left fifth ray amputation and a valve surgery during this hospital stay -Patient underwent angiogram with runoff yesterday and patient does have significant vascular disease however none is amenable to endovascular treatment -On 12/17/2023 patient had right femoral popliteal bypass with cadaver GSV. -Continue aspirin and Plavix -Continue risk factor modification with atorvastatin 12/19/2023: Patient has significant tenderness swelling, tightness/induration over right lower leg between knee and leg. Concern for compartment syndrome. CK, lactic acid and labs ordered. Vascular surgeon on board CKD stage IV/renal mass -Previous MRI showed abnormal kidney -Plan is for outpatient follow-up ultrasound per nephrology documentation 12/18: Creatinine 2.55. -Nephrology consulted and appreciate input Acute blood loss postoperative anemia on chronic anemia secondary to renal disease/chronic disease -Hemoglobin on admission was 11.7 and slowly trending down -Iron studies are consistent with anemia of chronic disease -Stool occult was negative -12/18/2023: Baseline hemoglobin 9 to 10 g dropped to 7.4 yesterday night after femoropopliteal surgery. Monitor PRBC ordered. Chronic HFrEF -Last echo from 04/2022 showed segmental systolic dysfunction with EF of 50% -Continue monitoring daily weights -I's and O's -Continue beta-hernán -Hold Lasix until okay to restart per nephrology DM-2/diabetic neuropathy -Continue home Neurontin -A1c is 7.9 -Continue Lantus 10 units twice daily with stable renal function -Will decrease dose by 50% and give 5 units tonight in preparation for OR tomorrow -Continue SSI -Continue monitoring GERD -Continue home PPI CAD/HTN/HPL -Continue home aspirin and Plavix -Continue on beta-hernán -Continue home statin -Continue home hydralazine Depression -Continue home escitalopram -Continue home trazodone Cognitive impairment -Highly suspect vascular related with history -Continue risperidone Debility -Plan is for skilled placement at discharge -Patient has been accepted at [facility] and will be discharged there once stable after surgery DVT prophylaxis -Continue subcu heparin CODE STATUS -Full code is verified admission Charges/Coding Visit Charges Inpatient E&M: 62611 [facility] Hosp L3
[2023-12-19 13:56] LABS: Lactic Acid 1.5 mmol/L (0.4-1.9)
[2023-12-19 13:57] LABS: ALB/GLOB Ratio 0.4 RATIO (0.9-2.4); AST(SGOT) 57 U/L (15-37); Alanine Aminotransfer ALT/SGPT 15 U/L (16-61); Alkaline Phosphatase 70 U/L (45-117); Anion Gap 7 (5-15); BUN 65 mg/dL (7-18); CPK Total, Creatine Kinase 683 U/L (39-308); Calcium,Total 8.3 mg/dL (8.5-10.1); Chloride 116 mmol/L (98-107); Creatinine, Serum 2.71 mg/dL (0.70-1.30); EST Glomerular Filtration Rate 24 mL/min (>60); Est Glom Filt Rate - Afr Amer 29 mL/min (>60); Globulin 4.9 g/dL (2.2-4.2); Glucose 188 mg/dL (74-106); Potassium 4.5 mmol/L (3.5-5.1); Protein, Total 6.9 g/dL (6.4-8.2); Sodium Level 141 mmol/L (136-145)
--- NOTE | 2023-12-19 15:20 | PCM.PN.SRG ---
Subjective Subjective Patient was examined a few times throughout the day. He is oriented to self and place today which is an improvement from yesterday; however, does remain otherwise confused. He does indicate discomfort at the R groin. He has noted edema of the RLE. Due to his dementia, has been difficult to maintain elevation of the leg. Similarly, nursing reports he has been moving/jamila the right leg up a lot. Objective Data Objective Data Vital Signs: Vital Signs Temp Pulse Resp BP Pulse Ox O2 Del Method O2 Flow Rate 97.3 F L 74 17 116/59 L 97 Room Air 2 12/19/23 12:00 12/19/23 15:00 12/19/23 15:00 12/19/23 15:00 12/19/23 15:00 12/19/23 15:00 12/18/23 06:00 Oxygen Flow Rate (L/min) 2 Oxygen Delivery Method Room Air Weight: 139 lb 5.314 oz Body Mass Index (BMI) 24.7 Intake & Output: Intake and Output for Last 24 Hours 12/17/23 12/18/23 12/19/23 23:59 23:59 23:59 Intake Total 246.25 / 246.25 669.25 / 869.25 637.25 / 637.25 Output Total 1215 / 1215 375 / 675 875 / 875 Balance -968.75 / -968.75 294.25 / 194.25 -237.75 / -237.75 Lab / Micro Data 12/19/23 02:55 12/19/23 13:15 Labs: Laboratory Results - last 24 hr 12/17/23 04:20: Crossmatch See Detail 12/18/23 16:26: POC Glucose 201 H 12/18/23 20:33: POC Glucose 249 H 12/19/23 02:55: WBC 22.1 H, RBC 2.84 L, Hgb 8.0 L, Hct 26.0 L, MCV 91.5, MCH 28.2, MCHC 30.8 L, RDW Std Deviation 48.8 H, RDW Coeff of Milad 14.6, Plt Count 335, MPV 10.4, Immature Gran % (Auto) 1.000 H, Neut % (Auto) 82.2 H, Lymph % (Auto) 7.6 L, [place] % (Auto) 8.8, Eos % (Auto) 0.0, Baso % (Auto) 0.4, Absolute Neuts (auto) 18.2 H, Absolute Lymphs (auto) 1.69, Nucleated RBC % 0, Differential Comment SCANNED, Diff Path Review February12/19/23 08:44: POC Glucose 201 H 12/19/23 11:49: POC Glucose 175 H 12/19/23 13:15: Sodium 141, Potassium 4.5, Chloride 116 H, Carbon Dioxide 18.0 L, Anion Gap 7, BUN 65 H, Creatinine 2.71 H, Estim Creat Clear Calc 17.50, Est GFR (MDRD) Af Amer 29 L, Est GFR (MDRD) Non-Af 24 L, BUN/Creatinine Ratio 24.0 H, Glucose 188 H, Lactic Acid 1.5, Calcium 8.3 L, Total Bilirubin 0.50, AST 57 H, ALT 15 L, Alkaline Phosphatase 70, Total Creatine Kinase 683 H, Total Protein 6.9, Albumin 2.0 L, Globulin 4.9 H, Albumin/Globulin Ratio 0.4 L Micro: Microbiology 12/14/23 19:35 Stool Stool Occult Blood (SANA) - Final 12/07/23 13:30 Tissue - 5th Toe Gram Stain - Final 12/07/23 13:30 Tissue - 5th Toe Wound Culture - Final Klebsiella pneumoniae sp pneum Enterococcus faecalis Corynebacterium amycolatum Pseudomonas aeruginosa 12/07/23 13:30 Tissue - 5th Toe Anaerobic Culture - Final Bacteroides fragilis Anaerobic cocci 12/06/23 11:50 Blood Culture (Wb) - Right Hand Blood Culture - Final No growth in 5 days. 12/06/23 11:45 Blood Culture (Wb) - Left Wrist Blood Culture - Final No growth in 5 days. Radiography Diagnostic Testing: Radiology Impression Echocardiogram 12/19/23 11:27 Interpretation Summary Moderately dilated left ventricle. Severe global left ventricular systolic dysfunction. The left ventricular ejection fraction is 25-30 %. Mild segmental dysfunction of right ventricle. The left atrium is mildly enlarged. Moderately severe (3+) mitral valve insufficiency. Right ventricular systolic pressure estimated to be 38 mmHg. Ordering Physician: Vini Mooney Performed By: Blanka Devlin RDCS Rhythm Strip Rhythm Strip: Sinus Rhythm Rate: 80 Ectopy: PVC(s) (Short runs of nonsustained VT on 2 occasions documented on telemetry.) Physical Exam Const alert and no apparent distress General Appearance: cooperative and comfortable HEENT normocephalic, head/scalp atraumatic, hearing grossly normal bilaterally, external ears normal and external nose normal Eyes EOMs intact bilaterally General Eye: normal appearance of both eyes Neck General: normal visual inspection and trachea midline Resp normal respiratory effort, no retractions and no use of accessory muscles Effort and Inspection: able to speak in complete sentences; Negative for labored, stridor or audible wheezes Cardio regular rate and regular rhythm Extremity Extremity Narrative: R PT with low-resistance biphasic signal. R foot is warm and pink. RLE edema consistent with reperfusion, no tenderness on palpation of the compartments of the lower leg except over the medial leg incision site. R groin with Prevena vac in place and maintaining seal. No significant ecchymosis. With patient lying flat in bed, did noticed focal swelling in the medial groin consistent with hematoma. Skin Wounds: wounds noted Neuro CN's II-XII intact bilaterally, moves all extremities, no focal motor deficits and no sensory deficits noted Assessment & Plan Assessment/Plan (1) PVD (peripheral vascular disease) with claudication: (2) Non-pressure chronic ulcer of other part of right foot with necrosis of bone: PLAN: Plan R groin hematoma noted on exam today, appears superficial and stable at this time. Heparin was discontinued. Continue ASA and Plavix. Will continue to monitor. RLE edema is expected secondary to reperfusion. Please try to keep the leg elevated and can apply ELDER wrap up to the knee as tolerated. Hgb had improved to 8.0 today. Will continue to monitor.
[2023-12-19] MEDS: Juven (unflavored) Packet 1 PACKET PO (15:54)
[2023-12-19 16:17] LABS: Bedside Glucose 213 mg/dL (74-106)
[2023-12-19 16:26] LABS: Magnesium 2.9 mg/dL (1.6-2.6)
[2023-12-19] MEDS: MELATONIN 10 MG TABLET PO (20:31)
[2023-12-19] MEDS: Senna/Docusate Sodium 1 Tablet 2 TABLET PO (20:31)
[2023-12-19] MEDS: RisperiDONE 0.5 MG Tablet PO (20:31)
[2023-12-19] MEDS: Atorvastatin Calcium 80 MG Tablet PO (20:31)
[2023-12-19] MEDS: Gabapentin 100 MG Capsule PO (20:35)
[2023-12-19] MEDS: traZODone 50 MG Tablet PO (20:36)
[2023-12-19 20:59] LABS: Bedside Glucose 169 mg/dL (74-106)
[2023-12-20] VITALS (25 sets, daily range): BP systolic 92–142; BP diastolic 47–93; PULSE 67–87; RESP 14–24; TEMP 36.5–36.9; O2SAT 94–100; BMI 24.0
[2023-12-20 04:34] LABS: Absolute Lymphocyte Count 1.98 X10^3/uL (0.83-4.51); Absolute Neutrophil Count 20.1 X10^3/uL (2.0-7.7); Basophil# 0.05 X10^3/uL; Basophil% 0.2 % (0-1); Eosinophil# 0.04 X10^3/uL; Eosinophils% 0.2 % (0-5); Hematocrit 24.7 % (40-54); Hemoglobin 7.7 g/dL (13.0-16.5); Lymphocyte # 1.98 X10^3/ul (0.83-4.51); Lymphocyte % 8.1 % (19-41); Mean Corp Hgb Conc 31.2 g/dL (32-36); Mean Corpuscular Hgb 28.2 pg (27.0-32.0); Mean Corpuscular Volume 90.5 fL (80-94); Mean Platelet Vol. 10.3 fl (6.2-12.0); Monocyte# 2.12 X10^3/uL; Monocyte% 8.6 % (0-10); NRBC Flagged by Analyzer 0 % (0-5); Neutrophil # 20.05 X10^3/uL (2.7-7.7); Neutrophil % 81.8 % (47-70); POSITIVE DIFFERENTIAL YES; Platelet Count 418 K/mm3 (150-450); RBC Distribution Width SD 49.9 fl (35.1-43.9); Red Blood Count 2.73 M/mm3 (4.6-6.2); White Blood Count 24.5 K/mm3 (4.4-11.0)
[2023-12-20] MEDS: oxyCODONE 5 MG Tablet PO ×3 (04:38→20:24)
[2023-12-20 04:54] LABS: Anion Gap 8 (5-15); BUN 67 mg/dL (7-18); BUN/Creat Ratio 24.5 RATIO (10-20); Calcium,Total 8.8 mg/dL (8.5-10.1); Chloride 117 mmol/L (98-107); Creatinine, Serum 2.74 mg/dL (0.70-1.30); EST Glomerular Filtration Rate 24 mL/min (>60); Est Glom Filt Rate - Afr Amer 29 mL/min (>60); Estimated Creatinine Clearance 17.31 ml/min; Glucose 170 mg/dL (74-106); Potassium 4.5 mmol/L (3.5-5.1); Sodium Level 145 mmol/L (136-145)
[2023-12-20 04:59] LABS: Differential Indicated SCAN CRITERIA MET
[2023-12-20] MEDS: Insulin Lispro 100 UNIT/ML INSULN.PEN SC ×4 (05:25→20:16)
[2023-12-20 06:16] LABS: Differential Comment SCANNED
[2023-12-20] MEDS: Aspirin 81 MG TAB.CHEW PO (08:21)
[2023-12-20 08:25] LABS: Bedside Glucose 152 mg/dL (74-106)
[2023-12-20] MEDS: Pantoprazole Sodium 40 MG Tablet PO (09:37)
[2023-12-20] MEDS: Juven (unflavored) Packet 1 PACKET PO ×2 (09:37→17:07)
[2023-12-20] MEDS: Clopidogrel Bisulfate 75 MG Tablet PO (09:37)
[2023-12-20] MEDS: Polyethylene Glycol 3350 17 GM PACKET PO (09:37)
[2023-12-20] MEDS: Escitalopram Oxalate 20 MG Tablet PO (09:37)
[2023-12-20] MEDS: Senna/Docusate Sodium 1 Tablet 2 TABLET PO ×2 (09:37→20:21)
[2023-12-20] MEDS: Menthol/Lanolin/Calamine/Znox 113 GM Tube 1 APPLIC TOPICAL ×2 (09:38→20:19)
[2023-12-20] MEDS: Carvedilol 12.5 MG Tablet PO ×2 (09:38→20:20)
[2023-12-20] MEDS: Insulin Glargine-YFGN 100 UNIT/ML Pen 10 UNIT SC ×2 (09:54→20:17)
[2023-12-20] MEDS: Ferrous Sulfate 325 MG Tablet PO (12:05)
[2023-12-20 12:33] LABS: Bedside Glucose 198 mg/dL (74-106)
--- NOTE | 2023-12-20 16:03 | PCM.PN.HOSP ---
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 (12/06/23) Peripheral vascular disease, unspecified (12/06/23) Cellulitis of right lower limb (12/06/23) Non-pressure chronic ulcer of other part of unspecified foot with unspecified severity (12/06/23) Non-pressure chronic ulcer of other part of right foot with necrosis of bone (12/06/23) Osteomyelitis, unspecified (12/06/23) Chronic kidney disease, stage 4 (severe) (12/06/23) Encounter for preprocedural cardiovascular examination (12/06/23) Presence of aortocoronary bypass graft (12/06/23) Objective Data Objective Data Vital Signs: Vital Signs Temp Pulse Resp BP Pulse Ox O2 Del Method O2 Flow Rate 98.1 F 74 18 126/54 H 100 Room Air 2 12/20/23 16:00 12/20/23 16:00 12/20/23 16:00 12/20/23 16:00 12/20/23 16:00 12/20/23 16:00 12/18/23 06:00 Oxygen Flow Rate (L/min) 2 Oxygen Delivery Method Room Air Weight: 135 lb 5.821 oz Body Mass Index (BMI) 24.0 Intake & Output: Intake and Output for Last 24 Hours 12/18/23 12/19/23 12/20/23 23:59 23:59 23:59 Intake Total 669.25 / 869.25 757.25 / 957.25 200 / 200 Output Total 375 / 675 1100 / 1300 650 / 650 Balance 294.25 / 194.25 -342.75 / -342.75 -450 / -450 Lab / Micro Data 12/20/23 04:10 12/20/23 04:10 Labs: Laboratory Results - last 24 hr 12/19/23 13:15: Magnesium 2.9 H 12/19/23 15:55: POC Glucose 213 H 12/19/23 20:29: POC Glucose 169 H 12/20/23 04:10: WBC 24.5 H, RBC 2.73 L, Hgb 7.7 L, Hct 24.7 L, MCV 90.5, MCH 28.2, MCHC 31.2 L, RDW Std Deviation 49.9 H, RDW Coeff of Milad 15.0 H, Plt Count 418, MPV 10.3, Immature Gran % (Auto) 1.100 H, Neut % (Auto) 81.8 H, Lymph % (Auto) 8.1 L, [place] % (Auto) 8.6, Eos % (Auto) 0.2, Baso % (Auto) 0.2, Absolute Neuts (auto) 20.1 H, Absolute Lymphs (auto) 1.98, Nucleated RBC % 0, Differential Comment SCANNED, Diff Path Review February, Sodium 145, Potassium 4.5, Chloride 117 H, Carbon Dioxide 20.0 L, Anion Gap 8, BUN 67 H, Creatinine 2.74 H, Estim Creat Clear Calc 17.31, Est GFR (MDRD) Af Amer 29 L, Est GFR (MDRD) Non-Af 24 L, BUN/Creatinine Ratio 24.5 H, Glucose 170 H, Calcium 8.8 12/20/23 05:24: POC Glucose 152 H 12/20/23 12:05: POC Glucose 198 H Micro: Microbiology 12/14/23 19:35 Stool Stool Occult Blood (SANA) - Final 12/07/23 13:30 Tissue - 5th Toe Gram Stain - Final 12/07/23 13:30 Tissue - 5th Toe Wound Culture - Final Klebsiella pneumoniae sp pneum Enterococcus faecalis Corynebacterium amycolatum Pseudomonas aeruginosa 12/07/23 13:30 Tissue - 5th Toe Anaerobic Culture - Final Bacteroides fragilis Anaerobic cocci 12/06/23 11:50 Blood Culture (Wb) - Right Hand Blood Culture - Final No growth in 5 days. 12/06/23 11:45 Blood Culture (Wb) - Left Wrist Blood Culture - Final No growth in 5 days. Rhythm Strip Rhythm Strip: Sinus Rhythm Rate: 80 Ectopy: PVC(s) (Short runs of nonsustained VT on 2 occasions documented on telemetry.) Physical Exam Narrative Seen and examined. Patient patient has moderate pain although cannot accurately confirm as patient is confused also as per the . She is feeding the patient. Swelling of the right lower extremity is slightly better. Patient had femoropopliteal bypass surgery on 12/17/2023. Physical exam: General: Awake. Confused to time and place. Moderate pain. HEENT: Atraumatic, PERRLA, EOMI, Normocephalic Oral: Oral mucosa moist. No Gingival or Mucosal Lesions/ Ulcerations Neck: Supple, No JVD, Negative Carotid Bruits Chest wall/Lungs: Air entry diminished in bilateral lung bases. No crepitation/rhonchi Cardiovascular: Regular rate, Regular Rhythm, Normal S1, Normal S2, No M/G/R Abdomen: Bowel Sounds Present, Soft, Non Tender, Non-Distended. No abdominal or retroperitoneal region tenderness. :clear urine.: No renal angle tenderness. No suprapubic tenderness. Extremities: Mild right groin hematoma. Right lower leg edema tenderness no superficial relativity perfusion injury. Skin: Had right sided fifth ray amputation on 12/07. Right groin femoral access, has wound VAC. Mild bruise around the right groin/inguinal region. Musculoskeletal: No Tenderness to Palpation of Joints or Extremities.. Had left fifth ray amputation. Neurological: Cranial nerves II-XII grossly intact, DTR 2+/4. No acute focal neurological deficit. Psych/Mental Status: Flat affect. Does not remember well. Dementia. Assessment & Plan Assessment/Plan (1) Diabetes mellitus with diabetic polyneuropathy: (2) Osteomyelitis: (3) Diabetic foot ulcer: (4) PVD (peripheral vascular disease) with claudication: PLAN: Plan This is a 78-year-old male was admitted for nonhealing wound on the right foot for about 3 months being followed by Dr. Alva. 1. Right diabetic foot infection/osteomyelitis Patient had partial fifth ray amputation of right foot, partial fourth metatarsal amputation, incision of bone cortex and wide debridement of necrotic tissue in right foot and skin flap right foot on 12/07/2023. -Cultures are currently showing Klebsiella, Enterococcus, corynebacterium, Pseudomonas, Bacteroides, and another ANNITA aerobic cocci -ID is following and has recommended Zosyn for another 7 days via IV after discharge however plan is for surgery on Sunday with vascular 12/18/2023-ID recommended 1 week of IV Zosyn at discharge via midline on 12/12 which she completes today on 12/18/2023. Discussed with Dr. Balderas. 12/13: Patient completed IV antibiotic. 2. PAD, atherosclerosis with right infected foot status post amputation left fifth ray amputation and a valve surgery during this hospital stay -Patient underwent angiogram with runoff yesterday and patient does have significant vascular disease however none is amenable to endovascular treatment -On 12/17/2023 patient had right femoral popliteal bypass with cadaver GSV. -Continue aspirin and Plavix -Continue risk factor modification with atorvastatin 12/19/2023: Patient has significant tenderness swelling, tightness/induration over right lower leg between knee and leg. Concern for compartment syndrome. CK, lactic acid and labs ordered. Vascular surgeon on board 12/19: Swelling and tenderness seems better. As per vascular surgeon it seems it is mainly superficial due to reperfusion injury. They do not think it is compartment syndrome. 3. Confusion/altered mental status/delirium probably due to surgery: Redirect. Orientation cues 4. CKD stage IV/renal mass -Previous MRI showed abnormal kidney -Plan is for outpatient follow-up ultrasound per nephrology documentation 12/18: Creatinine 2.55. -Nephrology consulted and appreciate input 5. Acute blood loss postoperative anemia on chronic anemia secondary to renal disease/chronic disease -Hemoglobin on admission was 11.7 and slowly trending down -Iron studies are consistent with anemia of chronic disease -Stool occult was negative -12/18/2023: Baseline hemoglobin 9 to 10 g dropped to 7.4 yesterday night after femoropopliteal surgery. Monitor PRBC ordered. 12/19: Hemoglobin 7.7. Platelet count 418,000. 6. Chronic HFrEF -Last echo from 04/2022 showed segmental systolic dysfunction with EF of 50% -Continue monitoring daily weights -I's and O's -Continue beta-hernán -Hold Lasix until okay to restart per nephrology 7. DM-2/diabetic neuropathy -Continue home Neurontin -A1c is 7.9 -Continue Lantus 10 units twice daily with stable renal function -Will decrease dose by 50% and give 5 units tonight in preparation for OR tomorrow -Continue SSI -Continue monitoring GERD -Continue home PPI CAD/HTN/HPL -Continue home aspirin and Plavix -Continue on beta-hernán -Continue home statin -Continue home hydralazine Depression -Continue home escitalopram -Continue home trazodone Cognitive impairment -Highly suspect vascular related with history -Continue risperidone Debility -Plan is for skilled placement at discharge -Patient has been accepted at [facility] and will be discharged there once stable after surgery DVT prophylaxis -Continue subcu heparin CODE STATUS -Full code is verified admission Charges/Coding Visit Charges Inpatient E&M: 04722 Subs Hosp L2
--- NOTE | 2023-12-20 16:35 | PCM.PN.SRG ---
Subjective Subjective Patient was seen resting in bed this morning. He remains confused but was able to communicate some discomfort at the R groin and along the incision site in the R lower leg. Objective Data Objective Data Vital Signs: Vital Signs Temp Pulse Resp BP Pulse Ox O2 Del Method O2 Flow Rate 98.1 F 74 18 126/54 H 100 Room Air 2 12/20/23 16:00 12/20/23 16:00 12/20/23 16:00 12/20/23 16:00 12/20/23 16:00 12/20/23 16:00 12/18/23 06:00 Oxygen Flow Rate (L/min) 2 Oxygen Delivery Method Room Air Weight: 135 lb 5.821 oz Body Mass Index (BMI) 24.0 Intake & Output: Intake and Output for Last 24 Hours 12/18/23 12/19/23 12/20/23 23:59 23:59 23:59 Intake Total 669.25 / 869.25 757.25 / 957.25 200 / 200 Output Total 375 / 675 1100 / 1300 650 / 650 Balance 294.25 / 194.25 -342.75 / -342.75 -450 / -450 Lab / Micro Data 12/20/23 04:10 12/20/23 04:10 Labs: Laboratory Results - last 24 hr 12/19/23 20:29: POC Glucose 169 H 12/20/23 04:10: WBC 24.5 H, RBC 2.73 L, Hgb 7.7 L, Hct 24.7 L, MCV 90.5, MCH 28.2, MCHC 31.2 L, RDW Std Deviation 49.9 H, RDW Coeff of Milad 15.0 H, Plt Count 418, MPV 10.3, Immature Gran % (Auto) 1.100 H, Neut % (Auto) 81.8 H, Lymph % (Auto) 8.1 L, [place] % (Auto) 8.6, Eos % (Auto) 0.2, Baso % (Auto) 0.2, Absolute Neuts (auto) 20.1 H, Absolute Lymphs (auto) 1.98, Nucleated RBC % 0, Differential Comment SCANNED, Diff Path Review February, Sodium 145, Potassium 4.5, Chloride 117 H, Carbon Dioxide 20.0 L, Anion Gap 8, BUN 67 H, Creatinine 2.74 H, Estim Creat Clear Calc 17.31, Est GFR (MDRD) Af Amer 29 L, Est GFR (MDRD) Non-Af 24 L, BUN/Creatinine Ratio 24.5 H, Glucose 170 H, Calcium 8.8 12/20/23 05:24: POC Glucose 152 H 12/20/23 12:05: POC Glucose 198 H Micro: Microbiology 12/14/23 19:35 Stool Stool Occult Blood (SANA) - Final 12/07/23 13:30 Tissue - 5th Toe Gram Stain - Final 12/07/23 13:30 Tissue - 5th Toe Wound Culture - Final Klebsiella pneumoniae sp pneum Enterococcus faecalis Corynebacterium amycolatum Pseudomonas aeruginosa 12/07/23 13:30 Tissue - 5th Toe Anaerobic Culture - Final Bacteroides fragilis Anaerobic cocci 12/06/23 11:50 Blood Culture (Wb) - Right Hand Blood Culture - Final No growth in 5 days. 12/06/23 11:45 Blood Culture (Wb) - Left Wrist Blood Culture - Final No growth in 5 days. Rhythm Strip Rhythm Strip: Sinus Rhythm Rate: 80 Ectopy: PVC(s) (Short runs of nonsustained VT on 2 occasions documented on telemetry.) Physical Exam Const alert and no apparent distress General Appearance: cooperative HEENT normocephalic, head/scalp atraumatic, hearing grossly normal bilaterally, external ears normal and external nose normal Eyes EOMs intact bilaterally General Eye: normal appearance of both eyes Neck General: normal visual inspection and trachea midline Resp normal respiratory effort, no retractions and no use of accessory muscles Effort and Inspection: able to speak in complete sentences; Negative for labored, stridor or audible wheezes Cardio regular rate and regular rhythm Extremity Extremity Narrative: R PT still with low-resistance biphasic signal. R foot is warm and pink. RLE edema consistent with reperfusion, improved from yesterday. He has tenderness along the medial aspect of the lower leg near the incision site but otherwise lower leg compartments are nontender. R groin with Prevena vac in place and maintaining seal. No significant ecchymosis. Hematoma is stable in size. Skin Wounds: wounds noted Neuro CN's II-XII intact bilaterally, moves all extremities, no focal motor deficits and no sensory deficits noted Assessment & Plan Assessment/Plan (1) PVD (peripheral vascular disease) with claudication: (2) Non-pressure chronic ulcer of other part of right foot with necrosis of bone: PLAN: Plan R groin hematoma appears stable in size. Heparin was discontinued. Continue ASA and Plavix. Will continue to monitor. Please continue to try to elevate the RLE to manage edema. Edema does appear improved today, still without significant tenderness to the lower leg compartments other than over the incision site. WBC is up to 24.5 today. No evidence of infection at the surgical sites. R foot wound pictures were reviewed and appears to be without signs of infection. He is cleared for discharge from vascular surgical perspective when otherwise medically stable. Current plan for discharge is to SNF, appears precert is still pending.
[2023-12-20 17:27] LABS: Bedside Glucose 207 mg/dL (74-106)
--- NOTE | 2023-12-20 19:26 | PN.RENAL_ITS ---
Subjective Subjective no new events Objective Data Objective Data Vital Signs: Vital Signs Temp Pulse Resp BP Pulse Ox O2 Del Method O2 Flow Rate 98.1 F 84 19 H 119/84 H 99 Room Air 2 12/20/23 16:00 12/20/23 18:00 12/20/23 18:00 12/20/23 18:00 12/20/23 18:00 12/20/23 18:00 12/18/23 06:00 Oxygen Flow Rate (L/min) 2 Oxygen Delivery Method Room Air Weight: 61.4 kg Body Mass Index (BMI) 24.0 Intake & Output: Intake and Output for Last 24 Hours 12/18/23 12/19/23 12/20/23 23:59 23:59 23:59 Intake Total 669.25 / 869.25 757.25 / 957.25 200 / 200 Output Total 375 / 675 1100 / 1300 900 / 900 Balance 294.25 / 194.25 -342.75 / -342.75 -700 / -700 Lab / Micro Data 12/20/23 04:10 12/20/23 04:10 Labs: Laboratory Results - last 24 hr 12/19/23 20:29: POC Glucose 169 H 12/20/23 04:10: WBC 24.5 H, RBC 2.73 L, Hgb 7.7 L, Hct 24.7 L, MCV 90.5, MCH 28.2, MCHC 31.2 L, RDW Std Deviation 49.9 H, RDW Coeff of Mliad 15.0 H, Plt Count 418, MPV 10.3, Immature Gran % (Auto) 1.100 H, Neut % (Auto) 81.8 H, Lymph % (Auto) 8.1 L, [place] % (Auto) 8.6, Eos % (Auto) 0.2, Baso % (Auto) 0.2, Absolute Neuts (auto) 20.1 H, Absolute Lymphs (auto) 1.98, Nucleated RBC % 0, Differential Comment SCANNED, Diff Path Review February, Sodium 145, Potassium 4.5, Chloride 117 H, Carbon Dioxide 20.0 L, Anion Gap 8, BUN 67 H, Creatinine 2.74 H, Estim Creat Clear Calc 17.31, Est GFR (MDRD) Af Amer 29 L, Est GFR (MDRD) Non-Af 24 L, BUN/Creatinine Ratio 24.5 H, Glucose 170 H, Calcium 8.8 12/20/23 05:24: POC Glucose 152 H 12/20/23 12:05: POC Glucose 198 H 12/20/23 17:05: POC Glucose 207 H Micro: Microbiology 12/14/23 19:35 Stool Stool Occult Blood (SANA) - Final 12/07/23 13:30 Tissue - 5th Toe Gram Stain - Final 12/07/23 13:30 Tissue - 5th Toe Wound Culture - Final Klebsiella pneumoniae sp pneum Enterococcus faecalis Corynebacterium amycolatum Pseudomonas aeruginosa 12/07/23 13:30 Tissue - 5th Toe Anaerobic Culture - Final Bacteroides fragilis Anaerobic cocci 12/06/23 11:50 Blood Culture (Wb) - Right Hand Blood Culture - Final No growth in 5 days. 12/06/23 11:45 Blood Culture (Wb) - Left Wrist Blood Culture - Final No growth in 5 days. Rhythm Strip Rhythm Strip: Sinus Rhythm Rate: 80 Ectopy: PVC(s) (Short runs of nonsustained VT on 2 occasions documented on telemetry.) Physical Exam Narrative Alert awake oriented x 3 no obvious distress s1s2 no murmurs lungs clear abdomen soft no edema Assessment & Plan Assessment/Plan (1) Chronic renal failure, stage 4 (severe): PLAN: Impression/Plan: The patient is a 78-year-old man with past history of type 2 diabetes mellitus, hypertension, PAD, HFrEF, iron deficiency anemia, and hyperlipidemia. The yulisa ent presented to hospital with right foot wound. The patient is being treated for right diabetic foot ulcer/cellulitis with concern for osteomyelitis. Nephrology is following for MOISÉS on CKD. Acute kidney injury on chronic kidney disease stage G4. Last known lab is from 12/05/2022 SCr 2.26 mg/dL. Reviewed past labs from 2017 to 2022 patient has had fluctuating serum creatinines (~2.3-2.6) but baseline is possibly ranging around 2.5 mg/dL. Overall creatinine has been stable
[2023-12-20] MEDS: Atorvastatin Calcium 80 MG Tablet PO (20:20)
[2023-12-20] MEDS: MELATONIN 10 MG TABLET PO (20:20)
[2023-12-20] MEDS: RisperiDONE 0.5 MG Tablet PO (20:21)
[2023-12-20] MEDS: Gabapentin 100 MG Capsule PO (20:24)
[2023-12-20] MEDS: traZODone 50 MG Tablet PO (20:24)
[2023-12-20 20:39] LABS: Bedside Glucose 234 mg/dL (74-106)
[2023-12-21] VITALS (12 sets, daily range): BP systolic 102–130; BP diastolic 48–89; PULSE 64–76; RESP 13–20; TEMP 36.3–36.9; O2SAT 95–100; BMI 24.2
[2023-12-21 05:38] LABS: Absolute Lymphocyte Count 2.06 X10^3/uL (0.83-4.51); Absolute Neutrophil Count 14.7 X10^3/uL (2.0-7.7); Basophil# 0.06 X10^3/uL; Basophil% 0.3 % (0-1); Eosinophils% 1.6 % (0-5); Hematocrit 24.1 % (40-54); Hemoglobin 7.5 g/dL (13.0-16.5); Lymphocyte # 2.06 X10^3/ul (0.83-4.51); Lymphocyte % 10.7 % (19-41); Mean Corp Hgb Conc 31.1 g/dL (32-36); Mean Corpuscular Hgb 28.4 pg (27.0-32.0); Mean Corpuscular Volume 91.3 fL (80-94); Mean Platelet Vol. 10.2 fl (6.2-12.0); Monocyte# 1.95 X10^3/uL; Monocyte% 10.1 % (0-10); NRBC Flagged by Analyzer 0 % (0-5); Neutrophil # 14.67 X10^3/uL (2.7-7.7); Neutrophil % 76.3 % (47-70); POSITIVE DIFFERENTIAL YES; Platelet Count 433 K/mm3 (150-450); RBC Distribution Width CV 15.1 % (11.6-14.6); RBC Distribution Width SD 50.6 fl (35.1-43.9); Red Blood Count 2.64 M/mm3 (4.6-6.2); White Blood Count 19.2 K/mm3 (4.4-11.0)
[2023-12-21 05:55] LABS: Anion Gap 8 (5-15); BUN 73 mg/dL (7-18); BUN/Creat Ratio 27.7 RATIO (10-20); Calcium,Total 9.1 mg/dL (8.5-10.1); Chloride 117 mmol/L (98-107); Creatinine, Serum 2.64 mg/dL (0.70-1.30); EST Glomerular Filtration Rate 25 mL/min (>60); Est Glom Filt Rate - Afr Amer 30 mL/min (>60); Estimated Creatinine Clearance 17.96 ml/min; Glucose 191 mg/dL (74-106); Potassium 4.5 mmol/L (3.5-5.1); Sodium Level 145 mmol/L (136-145)
[2023-12-21 06:03] LABS: Differential Indicated SCAN CRITERIA MET
[2023-12-21 06:54] LABS: Burr Cells 1+; Differential Comment SCANNED; Stomatocyte 1+
--- NOTE | 2023-12-21 08:00 | PN_ITS ---
Subjective Subjective Patient is seen resting in bed this a.m. He does admit to pain around the groin. Nursing does state he does seem restless at night and moves about the bed and attempts to flex right leg. Does have incisional wound VAC over axis point from arterial bypass. Nursing reports no acute overnight events. Denies constitutional symptoms. Denies further complaints. Objective Data Objective Data Vital Signs: Vital Signs Temp Pulse Resp BP Pulse Ox O2 Del Method O2 Flow Rate 98.1 F 74 20 H 117/69 99 Room Air 2 12/21/23 00:00 12/21/23 07:00 12/21/23 07:00 12/21/23 07:00 12/21/23 07:00 12/21/23 07:00 12/18/23 06:00 Oxygen Flow Rate (L/min) 2 Oxygen Delivery Method Room Air Weight: 62.1 kg Body Mass Index (BMI) 24.2 Intake & Output: Intake and Output for Last 24 Hours 12/19/23 12/20/23 12/21/23 23:59 23:59 23:59 Intake Total 757.25 / 957.25 200 / 200 Output Total 1100 / 1300 1150 / 1150 200 / 200 Balance -342.75 / -342.75 -950 / -950 -200 / -200 Lab / Micro Data 12/21/23 05:30 12/21/23 05:30 Labs: Laboratory Results - last 24 hr 12/20/23 05:24: POC Glucose 152 H 12/20/23 12:05: POC Glucose 198 H 12/20/23 17:05: POC Glucose 207 H 12/20/23 20:15: POC Glucose 234 H 12/21/23 05:30: WBC 19.2 H, RBC 2.64 L, Hgb 7.5 L, Hct 24.1 L, MCV 91.3, MCH 28.4, MCHC 31.1 L, RDW Std Deviation 50.6 H, RDW Coeff of Milad 15.1 H, Plt Count 433, MPV 10.2, Immature Gran % (Auto) 1.000 H, Neut % (Auto) 76.3 H, Lymph % (Auto) 10.7 L, [place] % (Auto) 10.1 H, Eos % (Auto) 1.6, Baso % (Auto) 0.3, Absolute Neuts (auto) 14.7 H, Absolute Lymphs (auto) 2.06, Nucleated RBC % 0, Differential Comment SCANNED, Diff Path Review May foll, Stomatocytes 1+, [place] Cells 1+, Sodium 145, Potassium 4.5, Chloride 117 H, Carbon Dioxide 20.0 L, Anion Gap 8, BUN 73 H, Creatinine 2.64 H, Estim Creat Clear Calc 17.96, Est GFR (MDRD) Af Amer 30 L, Est GFR (MDRD) Non-Af 25 L, BUN/Creatinine Ratio 27.7 H, Glucose 191 H, Calcium 9.1 Micro: Microbiology 12/14/23 19:35 Stool Stool Occult Blood (SANA) - Final 12/07/23 13:30 Tissue - 5th Toe Gram Stain - Final 12/07/23 13:30 Tissue - 5th Toe Wound Culture - Final Klebsiella pneumoniae sp pneum Enterococcus faecalis Corynebacterium amycolatum Pseudomonas aeruginosa 12/07/23 13:30 Tissue - 5th Toe Anaerobic Culture - Final Bacteroides fragilis Anaerobic cocci 12/06/23 11:50 Blood Culture (Wb) - Right Hand Blood Culture - Final No growth in 5 days. 12/06/23 11:45 Blood Culture (Wb) - Left Wrist Blood Culture - Final No growth in 5 days. Rhythm Strip Rhythm Strip: Sinus Rhythm Rate: 80 Ectopy: PVC(s) (Short runs of nonsustained VT on 2 occasions documented on telemetry.) Physical Exam Const alert, oriented x3 and no apparent distress General Appearance: cooperative HEENT normocephalic Eyes Eyes Narrative: Wears glasses General Eye: normal appearance of both eyes Neck General: normal visual inspection Lymph Lymphatic: no lymphadenopathy noted and no lymphedema noted Resp normal respiratory effort Cardio regular rate and regular rhythm Extremity no calf tenderness Extremity Narrative: DP and PT pulses nonpalpable bilateral. Capillary fill time is roughly 5 seconds digits. Normal temperature gradient. Hair growth is absent to digits/foot with trophic changes noted. Dermatological: Skin demonstrates trophic changes consistent with microvascular disease. Second digit of the left foot and dorsal hallux of the left foot demonstrate digital excoriation with eschar covering, no signs of infection. Sutures intact at amputation stump s/p partial fifth ray and fourth metatarsal head resection with skin flap closure. Skin flap remains healthy and viable with good coloration. Erythema is decreasing. Neurological: Decreased protective sensation noted to both feet secondary to diabetic peripheral polyneuropathy. Musculoskeletal: Previous partial fifth ray amputation of the left foot. Muscle strength 5 of 5 age-appropriate. No pain to palpation of the bones of the foot or ankle. Decreased range of motion of the ankle joint in dorsiflexion with the knee extended without pain or crepitus. Decreased range of motion of the first metatarsophalangeal joint without pain or crepitus. Skin no rashes or lesions noted, skin turgor normal and no jaundice Neuro oriented x3 and moves all extremities Assessment & Plan Assessment/Plan (1) Osteomyelitis of right foot: (2) Non-pressure chronic ulcer of other part of right foot with necrosis of bone: (3) Diabetes mellitus with diabetic polyneuropathy: (4) PVD (peripheral vascular disease) with claudication: (5) Type 2 diabetes mellitus with foot ulcer: PLAN: Plan Patient seen and evaluated He is s/p partial fifth ray amputation and fourth metatarsal head resection, incision of bone cortex, I&D with wide debridement of necrotic tissue, and skin flap right foot. DOS 12/07/2023. POD #14 Sutures intact at amputation stump s/p partial fifth ray and fourth metatarsal head resection with skin flap closure. Skin flap remains healthy and viable with good coloration. Erythema is decreasing. Overall foot is improving. Fourth digit has some purplish discoloration and cool to touch versus surrounding digits following his arterial bypass. Post bypass does have palpable pedal pulses. Digit at this time does appear stable however does need close monitoring. Dressings changed consisting of Betadine soaked Adaptic 4 x 4 gauze Kerlix, and 4 inch Sean wrap rolled onto the right foot. WBC currently 19.2. Currently on IV Zosyn Blood cultures obtained, no growth Surgical cultures: Tissue: Klebsiella pneumoniae, E faecalis, corynebacterium amycolatum, PsA, anaerobic cocci; Bone: Strep angiosis, anaerobic cocci LEAS obtained demonstrating noncompressible vessels with likely moderate arterial insufficiency. Patient had lung biopsy today. He did undergo arteriogram on 12/11/[address] Alvarenga. It is noted SFA, popliteal, peroneal arteries are significantly calcified and not amendable to endovascular procedure. He does have single-vessel inline flow to the foot through the posterior tibial artery. At this time he has been cleared by c ardiology for open vascular procedure for arterial bypass surgery to the lower extremity and will underwent procedure on 12/17/2023. Radiographs obtained of the right foot 12/06/2023 demonstrating soft tissue ulceration overlying distal portion of the fifth metatarsal with dorsal soft tissue swelling and vascular calcifications. Medicine currently following for medical management, they are appreciated. Vascular surgery following with intervention performed to 12/17/2023. Infectious disease consulted for antibiotic management. Wound nurse assisting in dressing changes Patient to be nonweightbearing to the right foot with assistance of a walker. Nursing may reinforce dressings for any strikethrough. Patient may benefit from SNF due to noncompliance of ambulating on amputation stump and assistance in care postsurgical status. Upon DC will have PICC line and continue IV Zosyn for 7 days per ID recommendations. Please do not hesitate to call with any questions or concerns. Will continue to follow while in house. If discharge to outside SNF he will then follow-up in office with me. Jr. eKn Lozada.P.M. [facility] [phone]
[2023-12-21] MEDS: Juven (unflavored) Packet 1 PACKET PO ×2 (08:05→17:12)
[2023-12-21] MEDS: Escitalopram Oxalate 20 MG Tablet PO (08:05)
[2023-12-21] MEDS: Menthol/Lanolin/Calamine/Znox 113 GM Tube 1 APPLIC TOPICAL ×2 (08:05→19:46)
[2023-12-21] MEDS: Aspirin 81 MG TAB.CHEW PO (08:05)
[2023-12-21] MEDS: Clopidogrel Bisulfate 75 MG Tablet PO (08:05)
[2023-12-21] MEDS: Carvedilol 12.5 MG Tablet PO ×2 (08:05→19:47)
[2023-12-21] MEDS: Pantoprazole Sodium 40 MG Tablet PO (08:05)
[2023-12-21] MEDS: Insulin Glargine-YFGN 100 UNIT/ML Pen 10 UNIT SC ×2 (08:06→20:00)
[2023-12-21] MEDS: Insulin Lispro 100 UNIT/ML INSULN.PEN SC ×3 (08:06→20:00)
[2023-12-21 08:51] LABS: Pathologist Review Reviewed
[2023-12-21 08:56] LABS: Pathologist Review Reviewed
--- NOTE | 2023-12-21 09:00 | CASEMGMT ---
Discharge Planning Updates sent via [facility] to [facility] with request to submit precert. Radha Melara, Discharge Planning Asst.
--- NOTE | 2023-12-21 11:27 | CASEMGMT ---
Social Work had brought in POA for healthcare earlier in the week, copy on chart. Vicki is pt's healthcare POA. MACIE Park
--- NOTE | 2023-12-21 11:28 | CASEMGMT ---
Social Work SW spoke w/physician, pt is not ready for discharge today, he does not anticipate pt will be ready this weekend. SW updated [facility] via [employer]. SW also spoke w/pt and , offered support, let them know we are still planning for [facility] when pt is ready. SW will continue to follow, plan continues to be [facility] when pt ready and we have precert, will follow up on Sunday. [place]
[2023-12-21 11:47] LABS: Bedside Glucose 172 mg/dL (74-106)
[2023-12-21] MEDS: Ferrous Sulfate 325 MG Tablet PO (12:15)
--- NOTE | 2023-12-21 12:26 | PN.HOSP_ITS ---
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 (12/06/23) Peripheral vascular disease, unspecified (12/06/23) Cellulitis of right lower limb (12/06/23) Non-pressure chronic ulcer of other part of unspecified foot with unspecified severity (12/06/23) Non-pressure chronic ulcer of other part of right foot with necrosis of bone (12/06/23) Osteomyelitis, unspecified (12/06/23) Chronic kidney disease, stage 4 (severe) (12/06/23) Encounter for preprocedural cardiovascular examination (12/06/23) Presence of aortocoronary bypass graft (12/06/23) Objective Data Objective Data Vital Signs: Vital Signs Temp Pulse Resp BP Pulse Ox O2 Del Method O2 Flow Rate 98.4 F 66 18 102/48 L 98 Room Air 2 12/21/23 08:00 12/21/23 09:00 12/21/23 09:00 12/21/23 09:00 12/21/23 09:00 12/21/23 09:00 12/18/23 06:00 Oxygen Flow Rate (L/min) 2 Oxygen Delivery Method Room Air Weight: 136 lb 14.513 oz Body Mass Index (BMI) 24.2 Intake & Output: Intake and Output for Last 24 Hours 12/19/23 12/20/23 12/21/23 23:59 23:59 23:59 Intake Total 757.25 / 957.25 200 / 200 240 / 240 Output Total 1100 / 1300 1150 / 1150 350 / 350 Balance -342.75 / -342.75 -950 / -950 -110 / -110 Lab / Micro Data 12/21/23 05:30 12/21/23 05:30 Labs: Laboratory Results - last 24 hr 12/19/23 02:55: Diff Path Review Reviewed 12/20/23 04:10: Diff Path Review Reviewed 12/20/23 12:05: POC Glucose 198 H 12/20/23 17:05: POC Glucose 207 H 12/20/23 20:15: POC Glucose 234 H 12/21/23 05:30: WBC 19.2 H, RBC 2.64 L, Hgb 7.5 L, Hct 24.1 L, MCV 91.3, MCH 28.4, MCHC 31.1 L, RDW Std Deviation 50.6 H, RDW Coeff of Milad 15.1 H, Plt Count 433, MPV 10.2, Immature Gran % (Auto) 1.000 H, Neut % (Auto) 76.3 H, Lymph % (Auto) 10.7 L, [place] % (Auto) 10.1 H, Eos % (Auto) 1.6, Baso % (Auto) 0.3, Absolute Neuts (auto) 14.7 H, Absolute Lymphs (auto) 2.06, Nucleated RBC % 0, Differential Comment SCANNED, Diff Path Review May foll, Stomatocytes 1+, [place] Cells 1+, Sodium 145, Potassium 4.5, Chloride 117 H, Carbon Dioxide 20.0 L, Anion Gap 8, BUN 73 H, Creatinine 2.64 H, Estim Creat Clear Calc 17.96, Est GFR (MDRD) Af Amer 30 L, Est GFR (MDRD) Non-Af 25 L, BUN/Creatinine Ratio 27.7 H, Glucose 191 H, Calcium 9.1 12/21/23 11:28: POC Glucose 172 H Micro: Microbiology 12/14/23 19:35 Stool Stool Occult Blood (SANA) - Final 12/07/23 13:30 Tissue - 5th Toe Gram Stain - Final 12/07/23 13:30 Tissue - 5th Toe Wound Culture - Final Klebsiella pneumoniae sp pneum Enterococcus faecalis Corynebacterium amycolatum Pseudomonas aeruginosa 12/07/23 13:30 Tissue - 5th Toe Anaerobic Culture - Final Bacteroides fragilis Anaerobic cocci 12/06/23 11:50 Blood Culture (Wb) - Right Hand Blood Culture - Final No growth in 5 days. 12/06/23 11:45 Blood Culture (Wb) - Left Wrist Blood Culture - Final No growth in 5 days. Rhythm Strip Rhythm Strip: Sinus Rhythm Rate: 80 Ectopy: PVC(s) (Short runs of nonsustained VT on 2 occasions documented on telemetry.) Physical Exam Narrative Seen and examined. Patient pain is controlled but is too drowsy confused and low voice tone. Seems overmedicated. He states pain is 4-5/10 intensity. Swelling of the right lower extremity is slightly better. Patient had femoropopliteal bypass surgery on 12/17/2023. Physical exam: General: Awake. Confused to time and place. Disoriented. Moderate pain. HEENT: Atraumatic, PERRLA, EOMI, Normocephalic Oral: Oral mucosa moist. No Gingival or Mucosal Lesions/ Ulcerations Neck: Supple, No JVD, Negative Carotid Bruits Chest wall/Lungs: Air entry diminished in bilateral lung bases. No crepitation/rhonchi Cardiovascular: Regular rate, Regular Rhythm, Normal S1, Normal S2, No M/G/R Abdomen: Bowel Sounds Present, Soft, Non Tender, Non-Distended. No abdominal or retroperitoneal region tenderness. :clear urine.: No renal angle tenderness. No suprapubic tenderness. Extremities: Mild right groin hematoma. Right lower leg edema tenderness no superficial relativity perfusion injury. Skin: Had right sided fifth ray amputation on 12/07. Right groin femoral access, has wound VAC. Mild bruise around the right groin/inguinal region. Musculoskeletal: No Tenderness to Palpation of Joints or Extremities.. Had left fifth ray amputation. Neurological: Cranial nerves II-XII grossly intact, DTR 2+/4. No acute focal neurological deficit. Psych/Mental Status: Flat affect. Does not remember well. Dementia. Assessment & Plan Assessment/Plan (1) Diabetes mellitus with diabetic polyneuropathy: (2) Osteomyelitis: (3) Diabetic foot ulcer: (4) PVD (peripheral vascular disease) with claudication: PLAN: Plan This is a 78-year-old male was admitted for nonhealing wound on the right foot for about 3 months being followed by Dr. Alva. 1. Right diabetic foot infection/osteomyelitis Patient had partial fifth ray amputation of right foot, partial fourth metatarsal amputation, incision of bone cortex and wide debridement of necrotic tissue in right foot and skin flap right foot on 12/07/2023. -Cultures are currently showing Klebsiella, Enterococcus, corynebacterium, Pseudomonas, Bacteroides, and another ANNITA aerobic cocci -ID is following and has recommended Zosyn for another 7 days via IV after discharge however plan is for surgery on Sunday with vascular 12/18/2023-ID recommended 1 week of IV Zosyn at discharge via midline on 12/12 which she completes today on 12/18/2023. Discussed with Dr. Balderas. 12/20: Patient completed IV antibiotic. 2. PAD, atherosclerosis with right infected foot status post amputation left fifth ray amputation and a valve surgery during this hospital stay -Patient underwent angiogram with runoff yesterday and patient does have significant vascular disease however none is amenable to endovascular treatment -On 12/17/2023 patient had right femoral popliteal bypass with cadaver GSV. -Continue aspirin and Plavix -Continue risk factor modification with atorvastatin 12/19/2023: Patient has significant tenderness swelling, tightness/induration over right lower leg between knee and leg. Concern for compartment syndrome. CK, lactic acid and labs ordered. Vascular surgeon on board 12/19: Swelling and tenderness seems better. As per vascular surgeon it seems it is mainly superficial due to reperfusion injury. They do not think it is compartment syndrome. 12/20 discussed with the vascular surgeon. Leg swelling is expected to get better as time goes by. Advised transfer to regular floor. 3. Confusion/altered mental status/delirium probably due to surgery: Redirect. Orientation cues 12/20: Patient is on Risperdal 0.5 mg twice daily discontinued. Trazodone lowest dose increased to 25 mg at bedtime as needed. Lexapro dose also decreased to 10 mg daily. Hold any further medications. Need to reevaluate tomorrow. 4. CKD stage IV/renal mass -Previous MRI showed abnormal kidney -Plan is for outpatient follow-up ultrasound per nephrology documentation 12/18: Creatinine 2.55. -Nephrology consulted and appreciate input 5. Acute blood loss postoperative anemia on chronic anemia secondary to renal disease/chronic disease -Hemoglobin on admission was 11.7 and slowly trending down -Iron studies are consistent with anemia of chronic disease -Stool occult was negative -12/18/2023: Baseline hemoglobin 9 to 10 g dropped to 7.4 yesterday night after femoropopliteal surgery. Monitor PRBC ordered. 12/19: Hemoglobin 7.7. Platelet count 418,000. 12/20: Hemoglobin 7.5. 6. Chronic HFrEF -Last echo from 04/2022 showed segmental systolic dysfunction with EF of 50% -Continue monitoring daily weights -I's and O's -Continue beta-hernán -Hold Lasix until okay to restart per nephrology 7. DM-2/diabetic neuropathy -Continue home Neurontin -A1c is 7.9 -Continue Lantus 10 units twice daily with stable renal function -Will decrease dose by 50% and give 5 units tonight in preparation for OR tomorrow -Continue SSI -Continue monitoring GERD -Continue home PPI CAD/HTN/HPL -Continue home aspirin and Plavix -Continue on beta-hernán -Continue home statin -Continue home hydralazine Depression -Continue home escitalopram -Continue home trazodone Cognitive impairment -Highly suspect vascular related with history -Continue risperidone Debility -Plan is for skilled placement at discharge -Patient has been accepted at [facility] and will be discharged there once stable after surgery DVT prophylaxis -Continue subcu heparin CODE STATUS -Full code is verified admission Charges/Coding Visit Charges Inpatient E&M: 23877 Subs Hosp L2
--- NOTE | 2023-12-21 13:27 | PN.RENAL_ITS ---
Subjective Subjective No new event Objective Data Objective Data Vital Signs: Vital Signs Temp Pulse Resp BP Pulse Ox O2 Del Method O2 Flow Rate 98.4 F 66 18 102/48 L 98 Room Air 2 12/21/23 08:00 12/21/23 09:00 12/21/23 09:00 12/21/23 09:00 12/21/23 09:00 12/21/23 09:00 12/18/23 06:00 Oxygen Flow Rate (L/min) 2 Oxygen Delivery Method Room Air Weight: 62.1 kg Body Mass Index (BMI) 24.2 Intake & Output: Intake and Output for Last 24 Hours 12/19/23 12/20/23 12/21/23 23:59 23:59 23:59 Intake Total 757.25 / 957.25 200 / 200 240 / 240 Output Total 1100 / 1300 1150 / 1150 350 / 350 Balance -342.75 / -342.75 -950 / -950 -110 / -110 Lab / Micro Data 12/21/23 05:30 12/21/23 05:30 Labs: Laboratory Results - last 24 hr 12/19/23 02:55: Diff Path Review Reviewed 12/20/23 04:10: Diff Path Review Reviewed 12/20/23 17:05: POC Glucose 207 H 12/20/23 20:15: POC Glucose 234 H 12/21/23 05:30: WBC 19.2 H, RBC 2.64 L, Hgb 7.5 L, Hct 24.1 L, MCV 91.3, MCH 28.4, MCHC 31.1 L, RDW Std Deviation 50.6 H, RDW Coeff of Milad 15.1 H, Plt Count 433, MPV 10.2, Immature Gran % (Auto) 1.000 H, Neut % (Auto) 76.3 H, Lymph % (Auto) 10.7 L, [place] % (Auto) 10.1 H, Eos % (Auto) 1.6, Baso % (Auto) 0.3, Absolute Neuts (auto) 14.7 H, Absolute Lymphs (auto) 2.06, Nucleated RBC % 0, Differential Comment SCANNED, Diff Path Review May foll, Stomatocytes 1+, [place]anes[place] Cells 1+, Sodium 145, Potassium 4.5, Chloride 117 H, Carbon Dioxide 20.0 L, Anion Gap 8, BUN 73 H, Creatinine 2.64 H, Estim Creat Clear Calc 17.96, Est GFR (MDRD) Af Amer 30 L, Est GFR (MDRD) Non-Af 25 L, BUN/Creatinine Ratio 27.7 H, Glucose 191 H, Calcium 9.1 12/21/23 11:28: POC Glucose 172 H Micro: Microbiology 12/14/23 19:35 Stool Stool Occult Blood (SANA) - Final 12/07/23 13:30 Tissue - 5th Toe Gram Stain - Final 12/07/23 13:30 Tissue - 5th Toe Wound Culture - Final Klebsiella pneumoniae sp pneum Enterococcus faecalis Corynebacterium amycolatum Pseudomonas aeruginosa 12/07/23 13:30 Tissue - 5th Toe Anaerobic Culture - Final Bacteroides fragilis Anaerobic cocci 12/06/23 11:50 Blood Culture (Wb) - Right Hand Blood Culture - Final No growth in 5 days. 12/06/23 11:45 Blood Culture (Wb) - Left Wrist Blood Culture - Final No growth in 5 days. Rhythm Strip Rhythm Strip: Sinus Rhythm Rate: 80 Ectopy: PVC(s) (Short runs of nonsustained VT on 2 occasions documented on telemetry.) Physical Exam Narrative Alert awake oriented x 3 no obvious distress s1s2 no murmurs lungs clear abdomen soft no edema Assessment & Plan Assessment/Plan (1) Chronic renal failure, stage 4 (severe): PLAN: Impression/Plan: The patient is a 78-year-old man with past history of type 2 diabetes mellitus, hypertension, PAD, HFrEF, iron deficiency anemia, and hyperlipidemia. The patie nt presented to hospital with right foot wound. The patient is being treated for right diabetic foot ulcer/cellulitis with concern for osteomyelitis. Nephrology is following for MOISÉS on CKD. Acute kidney injury on chronic kidney disease stage G4. Last known lab is from 12/05/2022 SCr 2.26 mg/dL. Reviewed past labs from 2017 to 2022 patient has had fluctuating serum creatinines (~2.3-2.6) but baseline is possibly ranging around 2.5 mg/dL. Overall creatinine has been stable
--- NOTE | 2023-12-21 15:53 | PCM.PN.SRG ---
Subjective Subjective Patient was seen resting in bed this morning. He was drowsy. He reports discomfort at the right groin incision. He was nontender to palpation of his lower leg and edema appears stable. Objective Data Objective Data Vital Signs: Vital Signs Temp Pulse Resp BP Pulse Ox O2 Del Method O2 Flow Rate 97.3 F L 68 15 118/50 L 96 Room Air 2 12/21/23 14:00 12/21/23 14:00 12/21/23 14:00 12/21/23 14:00 12/21/23 14:00 12/21/23 14:00 12/18/23 06:00 Oxygen Flow Rate (L/min) 2 Oxygen Delivery Method Room Air Weight: 136 lb 14.513 oz Body Mass Index (BMI) 24.2 Intake & Output: Intake and Output for Last 24 Hours 12/19/23 12/20/23 12/21/23 23:59 23:59 23:59 Intake Total 757.25 / 957.25 200 / 200 240 / 240 Output Total 1100 / 1300 1150 / 1150 350 / 350 Balance -342.75 / -342.75 -950 / -950 -110 / -110 Lab / Micro Data 12/21/23 05:30 12/21/23 05:30 Labs: Laboratory Results - last 24 hr 12/19/23 02:55: Diff Path Review Reviewed 12/20/23 04:10: Diff Path Review Reviewed 12/20/23 17:05: POC Glucose 207 H 12/20/23 20:15: POC Glucose 234 H 12/21/23 05:30: WBC 19.2 H, RBC 2.64 L, Hgb 7.5 L, Hct 24.1 L, MCV 91.3, MCH 28.4, MCHC 31.1 L, RDW Std Deviation 50.6 H, RDW Coeff of Milad 15.1 H, Plt Count 433, MPV 10.2, Immature Gran % (Auto) 1.000 H, Neut % (Auto) 76.3 H, Lymph % (Auto) 10.7 L, [place] % (Auto) 10.1 H, Eos % (Auto) 1.6, Baso % (Auto) 0.3, Absolute Neuts (auto) 14.7 H, Absolute Lymphs (auto) 2.06, Nucleated RBC % 0, Differential Comment SCANNED, Diff Path Review May foll, Stomatocytes 1+, Ganesh Cells 1+, Sodium 145, Potassium 4.5, Chloride 117 H, Carbon Dioxide 20.0 L, Anion Gap 8, BUN 73 H, Creatinine 2.64 H, Estim Creat Clear Calc 17.96, Est GFR (MDRD) Af Amer 30 L, Est GFR (MDRD) Non-Af 25 L, BUN/Creatinine Ratio 27.7 H, Glucose 191 H, Calcium 9.1 12/21/23 11:28: POC Glucose 172 H Micro: Microbiology 12/14/23 19:35 Stool Stool Occult Blood (SANA) - Final 12/07/23 13:30 Tissue - 5th Toe Gram Stain - Final 12/07/23 13:30 Tissue - 5th Toe Wound Culture - Final Klebsiella pneumoniae sp pneum Enterococcus faecalis Corynebacterium amycolatum Pseudomonas aeruginosa 12/07/23 13:30 Tissue - 5th Toe Anaerobic Culture - Final Bacteroides fragilis Anaerobic cocci 12/06/23 11:50 Blood Culture (Wb) - Right Hand Blood Culture - Final No growth in 5 days. 12/06/23 11:45 Blood Culture (Wb) - Left Wrist Blood Culture - Final No growth in 5 days. Rhythm Strip Rhythm Strip: Sinus Rhythm Rate: 80 Ectopy: PVC(s) (Short runs of nonsustained VT on 2 occasions documented on telemetry.) Physical Exam Const alert and no apparent distress General Appearance: cooperative HEENT normocephalic, head/scalp atraumatic, hearing grossly normal bilaterally, external ears normal and external nose normal Eyes EOMs intact bilaterally General Eye: normal appearance of both eyes Neck General: normal visual inspection and trachea midline Resp normal respiratory effort, no retractions and no use of accessory muscles Effort and Inspection: Negative for labored, stridor or audible wheezes Cardio regular rate and regular rhythm Extremity Extremity Narrative: R PT still with low-resistance biphasic signal. R foot is warm and pink. RLE edema consistent with reperfusion, stable. Lower leg remains nontender except over the incision site. R groin with Prevena vac in place and still maintaining seal. Hematoma is stable in size. Skin Wounds: wounds noted Neuro CN's II-XII intact bilaterally, moves all extremities, no focal motor deficits and no sensory deficits noted Assessment & Plan Assessment/Plan (1) PVD (peripheral vascular disease) with claudication: (2) Non-pressure chronic ulcer of other part of right foot with necrosis of bone: PLAN: Plan R groin hematoma remains stable in size. RLE edema is stable and expect this to improve with time. Continue Plavix and ASA. He is cleared for discharge from vascular surgical perspective when otherwise medically stable. Outpatient follow-up in our office is currently scheduled for 01/02.
[2023-12-21 16:47] LABS: Bedside Glucose 148 mg/dL (74-106)
[2023-12-21 16:47] LABS: Bedside Glucose 155 mg/dL (74-106)
[2023-12-21] MEDS: Acetaminophen 325 MG Tablet 650 MG PO (19:45)
[2023-12-21] MEDS: traZODone 50 MG Tablet 25 MG PO (19:45)
[2023-12-21] MEDS: Gabapentin 100 MG Capsule PO (19:45)
[2023-12-21] MEDS: MELATONIN 10 MG TABLET PO (19:45)
[2023-12-21] MEDS: oxyCODONE 5 MG Tablet PO (19:46)
[2023-12-21] MEDS: Atorvastatin Calcium 80 MG Tablet PO (19:47)
[2023-12-21 20:29] LABS: Bedside Glucose 175 mg/dL (74-106)
[2023-12-22 04:00] VITALS: BP 125/58; PULSE 80; RESP 18; TEMP 37.2; O2SAT 94
[2023-12-22] MEDS: Insulin Lispro 100 UNIT/ML INSULN.PEN SC ×2 (08:22→11:58)
[2023-12-22] MEDS: Pantoprazole Sodium 40 MG Tablet PO (08:23)
[2023-12-22] MEDS: Juven (unflavored) Packet 1 PACKET PO (08:23)
[2023-12-22] MEDS: Insulin Glargine-YFGN 100 UNIT/ML Pen 10 UNIT SC (08:23)
[2023-12-22] MEDS: Aspirin 81 MG TAB.CHEW PO (08:24)
[2023-12-22] MEDS: Clopidogrel Bisulfate 75 MG Tablet PO (08:24)
[2023-12-22] MEDS: Senna/Docusate Sodium 1 Tablet 2 TABLET PO (08:24)
[2023-12-22] MEDS: Carvedilol 12.5 MG Tablet PO (08:24)
[2023-12-22] MEDS: Escitalopram Oxalate 10 MG Tablet PO (08:24)
--- NOTE | 2023-12-22 08:30 | PCM.TXEXTCAR ---
Diet Diet Order/Speech Therapy: 12/18/23 13:39 Diet: Consistent Carb - Calorie Controlled Food consistency:: Mechanical (Minced/Moist) Is pt able to select menu?: No How many daily calories?: 1800 calorie Routine Orders/Code Status Suppository Type: Dulcolax 10mg Suppository Frequency: Daily PRN Wound(s) right fifth toe: Wound Type: Neuropathic/Diabetic Foot Ulcer right elbow: Wound Type: Abrasion left 1st and 2nd toe: Wound Type: small scabbed over wounds buttock: Wound Type: rash RIGHT FOOT: Wound Type: surgical incision s/p partial 5th ray and 4th met amputation Dressing Change: betadine Adaptic lft groin: Wound Type: Puncture RIGHT CALF: Wound Type: Surgical Incision right 4th metatarsal: Wound Type: Skin Tear Therapies Weight Bearing: Weight bearing as tolerated and Toe-touch weight bearing Extremity Affected:: Bilateral Lower Physical Therapy: Eval and Treat Occupational Therapy: Eval and Treat Speech Therapy: Eval and Treat Problem/Diagnosis (1) PVD (peripheral vascular disease) with claudication: Status: Acute Code(s): I73.9 - Peripheral vascular disease, unspecified (2) Non-pressure chronic ulcer of other part of right foot with necrosis of bone: Status: Chronic Code(s): L97.514 - Non-pressure chronic ulcer of other part of right foot with necrosis of bone Plan This is a 78-year-old male was admitted for nonhealing wound on the right foot for about 3 months being followed by Dr. Alva. 1. Right diabetic foot infection/osteomyelitis Patient had partial fifth ray amputation of right foot, partial fourth metatarsal amputation, incision of bone cortex and wide debridement of necrotic tissue in right foot and skin flap right foot on 12/07/2023. -Cultures are currently showing Klebsiella, Enterococcus, corynebacterium, Pseudomonas, Bacteroides, and another ANNITA aerobic cocci -ID is following and has recommended Zosyn for another 7 days via IV after discharge however plan is for surgery on Sunday with vascular 12/18/2023-ID recommended 1 week of IV Zosyn at discharge via midline on 12/12 which she completes today on 12/18/2023. Discussed with Dr. Balderas. 12/20: Patient completed IV antibiotic. 2. PAD, atherosclerosis with right infected foot status post amputation left fifth ray amputation and a valve surgery during this hospital stay -Patient underwent angiogram with runoff yesterday and patient does have significant vascular disease however none is amenable to endovascular treatment -On 12/17/2023 patient had right femoral popliteal bypass with cadaver GSV. -Continue aspirin and Plavix -Continue risk factor modification with atorvastatin 12/19/2023: Patient has significant tenderness swelling, tightness/induration over right lower leg between knee and leg. Concern for compartment syndrome. CK, lactic acid and labs ordered. Vascular surgeon on board 12/19: Swelling and tenderness seems better. As per vascular surgeon it seems it is mainly superficial due to reperfusion injury. They do not think it is compartment syndrome. 12/20 discussed with the vascular surgeon. Leg swelling is expected to get better as time goes by. Advised transfer to regular floor. 3. Confusion/altered mental status/delirium probably due to surgery: Redirect. Orientation cues 12/20: Patient is on Risperdal 0.5 mg twice daily discontinued. Trazodone lowest dose increased to 25 mg at bedtime as needed. Lexapro dose also decreased to 10 mg daily. Hold any further medications. Need to reevaluate tomorrow. 4. CKD stage IV/renal mass -Previous MRI showed abnormal kidney -Plan is for outpatient follow-up ultrasound per nephrology documentation 12/18: Creatinine 2.55. -Nephrology consulted and appreciate input 5. Acute blood loss postoperative anemia on chronic anemia secondary to renal disease/chronic disease -Hemoglobin on admission was 11.7 and slowly trending down -Iron studies are consistent with anemia of chronic disease -Stool occult was negative -12/18/2023: Baseline hemoglobin 9 to 10 g dropped to 7.4 yesterday night after femoropopliteal surgery. Monitor PRBC ordered. 12/19: Hemoglobin 7.7. Platelet count 418,000. 12/20: Hemoglobin 7.5. 6. Chronic HFrEF -Last echo from 04/2022 showed segmental systolic dysfunction with EF of 50% -Continue monitoring daily weights -I's and O's -Continue beta-hernán -Hold Lasix until okay to restart per nephrology 7. DM-2/diabetic neuropathy -Continue home Neurontin -A1c is 7.9 -Continue Lantus 10 units twice daily with stable renal function -Will decrease dose by 50% and give 5 units tonight in preparation for OR tomorrow -Continue SSI -Continue monitoring GERD -Continue home PPI CAD/HTN/HPL -Continue home aspirin and Plavix -Continue on beta-hernán -Continue home statin -Continue home hydralazine Depression -Continue home escitalopram -Continue home trazodone Cognitive impairment -Highly suspect vascular related with history -Continue risperidone Debility -Plan is for skilled placement at discharge -Patient has been accepted at [facility] and will be discharged there once stable after surgery DVT prophylaxis -Continue subcu heparin CODE STATUS -Full code is verified admission Allergies/Procedures Done in Hospital Allergies atorvastatin [From Lipitor] Adverse Reaction (Mild, Verified 12/06/23 11:14) myalgias Type of Care/Length of Stay Estimated LOS: Convalescent Care Less Than 30 days Type of Care Needed: Skilled Rehab Potential: Good Prognosis: Good Additional Orders/Day of Discharge Day of Discharge: 12/22/23 Dietary and Speech Recommendations Dietitian Recommendations/Changes: continue 1800 calorie controlled/consistent CHO- mechanical (minced/moist) Continue Neri BID for wound healing support. Discharge Plan Admission Admit Date/Time: 12/06/23 14:08 Primary Reason for Your Visit: Right diabetic foot ulcer, osteomyelitis, PAD s/p femoropopliteal surgery Attending Provider: Ksotas Salcido Primary Care Provider: Elvia Cobian Consulting Providers: Fouzia South; Kostas Salcido; Marimar Mosley; Blessing Fulton; Shaq Long; Hattie Gallego; Fran Phelan; Elli Meyers; Napoleon Zabala; Beto Ramos; Anthony Gonzalez; Nancie Dee; Vini Mooney; Fish Hernandez; Susan Matamoros; Kemi,Mansi; Tolu Carlos; Padilla Edward; Fernando Staley; Saman Guillen ASPHALT SCREED OPERATOR; Blessing Orlando NP; Traci Gan; Derrick Balderas; Lucy Woods; Vini Alva; Anthony Alvarenga Discharge Orders/Prescriptions Prescriptions: New polyethylene glycol 3350 17 gram Powder In Packet 17 g PO DAILY Qty: 0 0RF sennosides-docusate sodium [Stool Softener-Stimulant Laxat] 8.6-50 mg Tablet 2 tab PO BID Qty: 0 0RF oxycodone 5 mg Tablet 2.5 - 5 mg PO Q4H PRN PRN (Reason: Pain Score 4-10) 3 Days Qty: 10 0RF Rx Instructions: Oxycodone 2.5 mg for moderate pain and 5 mg for severe pain respectively. acetaminophen 325 mg Tablet 650 mg PO Q6H PRN PRN (Reason: Pain 1-10 Or Fever >100.7) Qty: 0 0RF insulin lispro [Humalog KwikPen Insulin] 100 unit/mL Insulin Pen See Protocol subcut ACHS Qty: 0 0RF Protocol: 4. Sliding Scale Insulin High-Med Dosing Condition: 150-199 mg/dl = 2 units Condition: 200-259 mg/dl = 4 units Condition: 260-324 mg/dl = 6 units Condition: 325-374 mg/dl = 8 units Condition: 375-409 mg/dl = 10 units Condition: 410-449 mg/dl = 11 units Condition: Greater than 449 call physician Protocol Text: - Use for Total Daily Dose of Insulin 56-80 units - Patient who are insulin resistant or septic HIGH MEDIUM DOSING ALGORITHM menthol-zinc oxide [Calmoseptine] 0.44-20.6 % Ointment 1 applic topical BID Qty: 0 0RF Protocol: *Topical Application Instructions APPLICATION INSTRUCTIONS: coccyx Continued pantoprazole 40 mg tablet,delayed release (DR/EC) 40 mg PO DAILY 30 Days Qty: 30 escitalopram oxalate 20 mg tablet 20 mg PO DAILY aspirin 81 MG tablet,chewable 81 mg PO DAILY@0800 ferrous sulfate 325 MG tablet 325 mg PO DAILY@1200 trazodone 50 MG tablet 50 mg PO QHS PRN (Reason: Sleep) insulin glargine 100 unit/mL (3 mL) insulin pen 15 unit subcut BID gabapentin 100 MG capsule 100 mg PO QHS atorvastatin 80 mg tablet 80 mg PO QHS hydralazine 25 mg tablet 25 mg PO TID PRN (Reason: anxiety) carvedilol 12.5 mg tablet 12.5 mg PO BID Qty: 180 3RF clopidogrel 75 mg tablet 75 mg PO DAILY Qty: 90 3RF Changed furosemide 20 mg tablet 40 mg PO DAILY 90 Days Qty: 270 3RF Discontinued insulin lispro [Humalog U-100 Insulin] 100 unit/mL solution 1 sliding scale dose subcut DAILY Protocol: 6. Sliding Scale Insulin Custom Condition: mg/dl range Dose/Route: Number of Units Condition: 125-150 Dose/Route: 2 Condition: 151-200 Dose/Route: 4 Condition: 201-250 Dose/Route: 6 Condition: 251-300 Dose/Route: 8 Condition: 301-350 Dose/Route: 10 Condition: 351-400 Dose/Route: 12 Condition: 401-450 Dose/Route: 15 Condition: 451+ Dose/Route: CALL MD Protocol Text: Custom Sliding Scale Patient Comments: UNSURE OF SLIDING SCALE. HAS WRITTEN DOWN AT HOME. CALLED MD TO OBTAIN SCALE. Rx Instructions: subcutaneously daily; 1 sliding scale dose subcutaneously Referrals / Follow Up: Anthony Alvarenga MD [Med Staff - Active Staff] - Within 2 Weeks Lucy Woods MD [Med Staff - Consulting] - Within 1 Month Elvia Cobian DO [Primary Care Provider] - Vini Mooney MD [Med Staff - Active Staff] - Within 1 Month Vini Alva DPM [Med Staff - Active Staff] - Within 2 Weeks Disposition Disposition (needs filled in before D/C Order can be placed): [facility]
[2023-12-22 09:10] VITALS: O2SAT 100
[2023-12-22] MEDS: Menthol/Lanolin/Calamine/Znox 113 GM Tube 1 APPLIC TOPICAL (09:51)
[2023-12-22 10:00] VITALS: BP 119/67; PULSE 77; RESP 18; TEMP 36.6; O2SAT 95
--- NOTE | 2023-12-22 11:49 | CASEMGMT ---
Social Work As per physician, pt may be able to go to [facility] today or tomorrow. SW sent a message to [facility], they can take pt on the weekend. SW completed the PAS/RR, placed it with results, green sheet and transport form on chart in event pt can go on the weekend. SW did let physician know that the [facility] pt should he be ready on the weekend. Heather QUIJANO
[2023-12-22] MEDS: Ferrous Sulfate 325 MG Tablet PO (11:53)
[2023-12-22] MEDS: Acetaminophen 325 MG Tablet 650 MG PO (11:53)
--- NOTE | 2023-12-22 12:11 | PCM.DC.SUM ---
Providers Date of Admission: 12/06/23 Date of Discharge: 12/22/23 Primary Care Physician: Elvia Cobian DO Consultations 12/06/23 15:38 Consult: Nephrology Routine Consulting Provider: Lucy Woods Reason for Consult: ckd IV, up from baseline, also HFrEF, needs surgery EMERGENT Consult: No MD Notified: Yes Date Notified: 12/06/23 Time Notified: 22:39 Method of Notification: Answering Service Consult: Onc/Wound/shoe cleaner Routine Comment: Reason for Consult:: R diabetic foot wound, likely osteo Consult: Podiatry Routine Consulting Provider: Vini Alva Reason for Consult: concern for foot osteo, sent in from office EMERGENT Consult: No MD Notified: Yes Date Notified: 12/06/23 Time Notified: 14:20 Method of Notification: sent in from office Consult: Vascular Surgery Routine Consulting Provider: Anthony Alvarenga Reason for Consult: Diabetic foot wound, concern for osteo and pvd, req by podiatry EMERGENT Consult: No MD Notified: Yes Date Notified: 12/06/23 Time Notified: 15:54 Method of Notification: Text 12/08/23 15:47 Consult: Infectious Disease Routine Consulting Provider: Derrick Balderas Reason for Consult: Right foot lateral Osteo, s/p surgery EMERGENT Consult: No MD Notified: Yes Date Notified: 12/08/23 Time Notified: 15:47 Method of Notification: Text 12/13/23 11:05 Consult: Cardiology Routine Consulting Provider: Janee Carrillo Reason for Consult: Preoperative evaluation EMERGENT Consult: No MD Notified: Yes Date Notified: 12/13/23 Time Notified: 11:20 Method of Notification: Text Reason For Visit: R FOOT DIABETIC WOUND Diagnosis Discharge Diagnosis (1) PVD (peripheral vascular disease) with claudication: Status: Acute Code(s): I73.9 - Peripheral vascular disease, unspecified (2) Non-pressure chronic ulcer of other part of right foot with necrosis of bone: Status: Chronic Code(s): L97.514 - Non-pressure chronic ulcer of other part of right foot with necrosis of bone Plan This is a 78-year-old male was admitted for nonhealing wound on the right foot for about 3 months being followed by Dr. Alva. 1. Right diabetic foot infection/osteomyelitis Patient had partial fifth ray amputation of right foot, partial fourth metatarsal amputation, incision of bone cortex and wide debridement of necrotic tissue in right foot and skin flap right foot on 12/07/2023. -Cultures are currently showing Klebsiella, Enterococcus, corynebacterium, Pseudomonas, Bacteroides, and another ANNITA aerobic cocci -ID is following and has recommended Zosyn for another 7 days via IV after discharge however plan is for surgery on Sunday with vascular 12/18/2023-ID recommended 1 week of IV Zosyn at discharge via midline on 12/12 which she completes today on 12/18/2023. Discussed with Dr. Balderas. 12/20: Patient completed IV antibiotic. 2. PAD, atherosclerosis with right infected foot status post amputation left fifth ray amputation and a valve surgery during this hospital stay -Patient underwent angiogram with runoff yesterday and patient does have significant vascular disease however none is amenable to endovascular treatment -On 12/17/2023 patient had right femoral popliteal bypass with cadaver GSV. -Continue aspirin and Plavix -Continue risk factor modification with atorvastatin 12/19/2023: Patient has significant tenderness swelling, tightness/induration over right lower leg between knee and leg. Concern for compartment syndrome. CK, lactic acid and labs ordered. Vascular surgeon on board 12/19: Swelling and tenderness seems better. As per vascular surgeon it seems it is mainly superficial due to reperfusion injury. They do not think it is compartment syndrome. 12/20 discussed with the vascular surgeon. Leg swelling is expected to get better as time goes by. Advised transfer to regular floor. 12/21: Patient is being discharged. Leg swelling improving. Nonweightbearing on right leg. Follow-up in vascular clinic, Dr. Anthony Alvarenga in 2 weeks 3. Confusion/altered mental status/delirium probably due to surgery: Redirect. Orientation cues 12/20: Patient is on Risperdal 0.5 mg twice daily discontinued. Trazodone lowest dose increased to 25 mg at bedtime as needed. Lexapro dose also decreased to 10 mg daily. Hold any further medications. Need to reevaluate tomorrow. 12/21: Patient on trazodone and Lexapro. Titrate the dose as per requirement of anxiety and depression follow with PCP. 4. CKD stage IV/renal mass -Previous MRI showed abnormal kidney -Plan is for outpatient follow-up ultrasound per nephrology documentation 12/18: Creatinine 2.55. -Nephrology consulted and appreciate input 5. Acute blood loss postoperative anemia on chronic anemia secondary to renal disease/chronic disease -Hemoglobin on admission was 11.7 and slowly trending down -Iron studies are consistent with anemia of chronic disease -Stool occult was negative -12/18/2023: Baseline hemoglobin 9 to 10 g dropped to 7.4 yesterday night after femoropopliteal surgery. Monitor PRBC ordered. 12/19: Hemoglobin 7.7. Platelet count 418,000. 12/20: Hemoglobin 7.5. 6. Chronic HFrEF -Last echo from 04/2022 showed segmental systolic dysfunction with EF of 50% -Continue monitoring daily weights -I's and O's -Continue beta-hernán -Hold Lasix until okay to restart per nephrology 7. DM-2/diabetic neuropathy -Continue home Neurontin -A1c is 7.9 -Continue Lantus 10 units twice daily with stable renal function -Will decrease dose by 50% and give 5 units tonight in preparation for OR tomorrow -Continue SSI -Continue monitoring GERD -Continue home PPI CAD/HTN/HPL -Continue home aspirin and Plavix -Continue on beta-hernán -Continue home statin -Continue home hydralazine Depression -Continue home escitalopram -Continue home trazodone Cognitive impairment -Highly suspect vascular related with history -Continue risperidone Debility -Plan is for skilled placement at discharge -Patient has been accepted at [facility] and will be discharged there once stable after surgery DVT prophylaxis -Continue subcu heparin CODE STATUS -Full code is verified admission Discharge medication reconciliation done. Discharge follow-up instructions completed. Discharge process discussed with the patient and all questions were answered to patient's satisfaction. Follow with PCP in 1 to 2 weeks Total time spent, exact 35 minutes on discharge meds reconciliation, examination, coordination of care with nurses and ancillary staff, review of imaging and blood test and discussion with the patient on follow-up instructions. Medications at Discharge Home Medications aspirin 81 mg chewable tablet 81 mg PO DAILY@0800 [facility] 09/29/14 pantoprazole 40 mg tablet,delayed release 40 mg PO DAILY acid reflux 30 days #30 tabs 02/07/18 ferrous sulfate 325 mg (65 mg iron) tablet 325 mg PO DAILY@1200 iron supplement 03/19/19 trazodone 50 mg tablet 50 mg PO QHS PRN Sleep 09/22/20 gabapentin 100 mg capsule 100 mg PO QHS 12/22/20 escitalopram oxalate 20 mg tablet 20 mg PO DAILY 03/29/22 carvedilol 12.5 mg tablet 12.5 mg PO BID #180 tabs 04/23/23 clopidogrel 75 mg tablet 75 mg PO DAILY #90 tabs 07/23/23 insulin glargine 100 unit/mL (3 mL) subcutaneous pen 15 unit subcut BID 12/04/23 atorvastatin 80 mg tablet 80 mg PO QHS cholesterol 12/06/23 hydralazine 25 mg tablet 25 mg PO TID PRN anxiety 12/06/23 acetaminophen 325 mg tablet 650 mg (2 x 325 mg) PO Q6H PRN PRN Pain 1-10 Or Fever >100.7 #0 tabs 12/22/23 furosemide 20 mg tablet 40 mg (2 x 20 mg) PO DAILY 90 days #270 tabs 12/22/23 insulin lispro 100 unit/mL subcutaneous pen (Humalog KwikPen (U-100) Insulin) See Protocol subcut ACHS #0 mL 12/22/23 menthol 0.44 %-zinc oxide 20.6 % topical ointment (Calmoseptine) 1 applic topical BID #0 grams 12/22/23 oxycodone 5 mg tablet 2.5 - 5 mg (0.5 - 1 x 5 mg) PO Q4H PRN PRN Pain Score 4-10 3 days #10 tabs 12/22/23 polyethylene glycol 3350 17 gram oral powder packet 17 g PO DAILY #0 ea 12/22/23 sennosides 8.6 mg-docusate sodium 50 mg tablet (Stool Softener-Stimulant Laxative) 2 tab PO BID #0 tabs 12/22/23 Physical Exam Narrative Seen and examined. Patient is more awake and alert and better than yesterday. Antipsychotic medications were changed and Risperdal discontinued Patient pain is controlled 4-5/10 intensity. Swelling of the right lower extremity is slightly better. Patient had femoropopliteal bypass surgery on 12/17/2023. Physical exam: General: Awake, alert oriented x 3. Mild to moderate pain. HEENT: Atraumatic, PERRLA, EOMI, Normocephalic Oral: Oral mucosa moist. No Gingival or Mucosal Lesions/ Ulcerations Neck: Supple, No JVD, Negative Carotid Bruits Chest wall/Lungs: Air entry diminished in bilateral lung bases. No crepitation/rhonchi Cardiovascular: Regular rate, Regular Rhythm, Normal S1, Normal S2, No M/G/R Abdomen: Bowel Sounds Present, Soft, Non Tender, Non-Distended. No abdominal or retroperitoneal region tenderness. : Stovall catheter removed. Clear urine.: No renal angle tenderness. No suprapubic tenderness. Extremities: Mild right groin hematoma. Right lower leg edema tenderness no superficial relativity perfusion injury. Skin: Had right sided fifth ray amputation on 12/07. Right groin femoral access, has wound VAC. Mild bruise around the right groin/inguinal region. Musculoskeletal: No Tenderness to Palpation of Joints or Extremities.. Had left fifth ray amputation. Neurological: Cranial nerves II-XII grossly intact, DTR 2+/4. No acute focal neurological deficit. Psych/Mental Status: Flat affect. Does not remember well. Dementia. Weight / BMI Weight Weight: 136 lb 14.513 oz Body Mass Index (BMI) 24.2 ABG / Lab / Microbiology Data 12/21/23 05:30 12/21/23 05:30 Laboratory: Laboratory Results - last 24 hr 12/21/23 08:03: POC Glucose 155 H 12/21/23 16:27: POC Glucose 148 H 12/21/23 19:58: POC Glucose 175 H Microbiology: Microbiology 12/14/23 19:35 Stool Stool Occult Blood (SANA) - Final 12/07/23 13:30 Tissue - 5th Toe Gram Stain - Final 12/07/23 13:30 Tissue - 5th Toe Wound Culture - Final Klebsiella pneumoniae sp pneum Enterococcus faecalis Corynebacterium amycolatum Pseudomonas aeruginosa 12/07/23 13:30 Tissue - 5th Toe Anaerobic Culture - Final Bacteroides fragilis Anaerobic cocci 12/06/23 11:50 Blood Culture (Wb) - Right Hand Blood Culture - Final No growth in 5 days. 12/06/23 11:45 Blood Culture (Wb) - Left Wrist Blood Culture - Final No growth in 5 days. Meaningful Use Info Meaningful Use Diagnoses (Choose all that apply): None applicable Discharge Plan Admission Admit Date/Time: 12/06/23 14:08 Primary Reason for Your Visit: Right diabetic foot ulcer, osteomyelitis, PAD s/p femoropopliteal surgery Attending Provider: Kostas Salcido Primary Care Provider: Elvia Cobian Consulting Providers: Fouzia South; Kostas Salcido; Marimar Mosley; Blessing Fulton; Shaq Long; Hattie Gallego; Fran Phelan; Elli Meyers; Sagrario,Napoleon; Beto Ramos; Anthony Gonzalez; Nancie Dee; Vini Mooney; Fish Hernandez; Susan Matamoros; Mansi Mcmullen; Tolu Carlos; Padilla Edward; Fernando Staley; Saman Guillen CLINICAL TRIALS SPECIALIST; Blessing Orlando NP; Traci Gan; Derrick Balderas; Lucy Woods; Vini Alva; Anthony Alvarenga Discharge Orders/Prescriptions Prescriptions: New polyethylene glycol 3350 17 gram Powder In Packet 17 g PO DAILY Qty: 0 0RF sennosides-docusate sodium [Stool Softener-Stimulant Laxat] 8.6-50 mg Tablet 2 tab PO BID Qty: 0 0RF oxycodone 5 mg Tablet 2.5 - 5 mg PO Q4H PRN PRN (Reason: Pain Score 4-10) 3 Days Qty: 10 0RF Rx Instructions: Oxycodone 2.5 mg for moderate pain and 5 mg for severe pain respectively. acetaminophen 325 mg Tablet 650 mg PO Q6H PRN PRN (Reason: Pain 1-10 Or Fever >100.7) Qty: 0 0RF insulin lispro [Humalog KwikPen Insulin] 100 unit/mL Insulin Pen See Protocol subcut ACHS Qty: 0 0RF Protocol: 4. Sliding Scale Insulin High-Med Dosing Condition: 150-199 mg/dl = 2 units Condition: 200-259 mg/dl = 4 units Condition: 260-324 mg/dl = 6 units Condition: 325-374 mg/dl = 8 units Condition: 375-409 mg/dl = 10 units Condition: 410-449 mg/dl = 11 units Condition: Greater than 449 call physician Protocol Text: - Use for Total Daily Dose of Insulin 56-80 units - Patient who are insulin resistant or septic HIGH MEDIUM DOSING ALGORITHM menthol-zinc oxide [Calmoseptine] 0.44-20.6 % Ointment 1 applic topical BID Qty: 0 0RF Protocol: *Topical Application Instructions APPLICATION INSTRUCTIONS: coccyx Continued pantoprazole 40 mg tablet,delayed release (DR/EC) 40 mg PO DAILY 30 Days Qty: 30 escitalopram oxalate 20 mg tablet 20 mg PO DAILY aspirin 81 MG tablet,chewable 81 mg PO DAILY@0800 ferrous sulfate 325 MG tablet 325 mg PO DAILY@1200 trazodone 50 MG tablet 50 mg PO QHS PRN (Reason: Sleep) insulin glargine 100 unit/mL (3 mL) insulin pen 15 unit subcut BID gabapentin 100 MG capsule 100 mg PO QHS atorvastatin 80 mg tablet 80 mg PO QHS hydralazine 25 mg tablet 25 mg PO TID PRN (Reason: anxiety) carvedilol 12.5 mg tablet 12.5 mg PO BID Qty: 180 3RF clopidogrel 75 mg tablet 75 mg PO DAILY Qty: 90 3RF Changed furosemide 20 mg tablet 40 mg PO DAILY 90 Days Qty: 270 3RF Discontinued insulin lispro [Humalog U-100 Insulin] 100 unit/mL solution 1 sliding scale dose subcut DAILY Protocol: 6. Sliding Scale Insulin Custom Condition: mg/dl range Dose/Route: Number of Units Condition: 125-150 Dose/Route: 2 Condition: 151-200 Dose/Route: 4 Condition: 201-250 Dose/Route: 6 Condition: 251-300 Dose/Route: 8 Condition: 301-350 Dose/Route: 10 Condition: 351-400 Dose/Route: 12 Condition: 401-450 Dose/Route: 15 Condition: 451+ Dose/Route: CALL MD Protocol Text: Custom Sliding Scale Patient Comments: UNSURE OF SLIDING SCALE. HAS WRITTEN DOWN AT HOME. CALLED MD TO OBTAIN SCALE. Rx Instructions: subcutaneously daily; 1 sliding scale dose subcutaneously Referrals / Follow Up: Anthony Alvarenga MD [Med Staff - Active Staff] - Within 2 Weeks Lucy Woods MD [Med Staff - Consulting] - Within 1 Month Elvia Cobian DO [Primary Care Provider] - Vini Mooney MD [Med Staff - Active Staff] - Within 1 Month Vini Alva DPM [Med Staff - Active Staff] - Within 2 Weeks Disposition Disposition (needs filled in before D/C Order can be placed): [facility] Charges/Coding Visit Charges Inpatient E&M: 52300 Disch Hosp >30min
[2023-12-22] MEDS: Tamsulosin HCl 0.4 MG Capsule PO (13:21)
[2023-12-22 13:28] VITALS: BP 112/61; PULSE 78; RESP 23; TEMP 36.6; O2SAT 100
--- NOTE | 2023-12-22 17:16 | NURSING ---
Report given to Angel PICKERING at 1600.
[2023-12-23 00:42] LABS: Bedside Glucose 199 mg/dL (74-106)
[2023-12-23 00:44] LABS: Bedside Glucose 155 mg/dL (74-106)
[2023-12-25 07:45] LABS: Pathologist Review Reviewed
== END 2023-12-22 16:20 | disposition skilled nursing facility (03) | DRG 240 ==
LOC: ED 14:30 → MS3 14:38 → PCU 12-11 14:55 → ICU 12-17 10:08
PROVIDERS: Internal Medicine; Internal Medicine Cardiovascular Disease; Physician Assistant; Student in an Organized Health Care Education/Training Program; Surgery Trauma Surgery; Admitting Provider Internal Medicine; Emergency Provider Emergency Medicine; PCP Family Medicine; Visit Provider Internal Medicine
PROC: 0Y6M0ZD Detachment at Right Foot, Partial 4th Ray, Open Approach (ICD-10-PCS; principal; 2023-12-07 12:45)
PROC: 041K0KN Bypass Right Femoral Artery to Posterior Tibial Artery with Nonautologous Tissue Substitute, Open Approach (ICD-10-PCS; principal; 2023-12-17 07:00)
DX: E11.52 Type 2 diabetes mellitus with diabetic peripheral angiopathy with gangrene (principal); I50.22 Chronic systolic (congestive) heart failure; I70.261 Atherosclerosis of native arteries of extremities with gangrene, right leg; M86.171 Other acute osteomyelitis, right ankle and foot; F05 Delirium due to known physiological condition; I13.0 Hypertensive heart and chronic kidney disease with heart failure and stage 1 through stage 4 chronic kidney disease, or unspecified chronic kidney disease; D62 Acute posthemorrhagic anemia; L03.115 Cellulitis of right lower limb; N17.9 Acute kidney failure, unspecified; N18.4 Chronic kidney disease, stage 4 (severe); D63.1 Anemia in chronic kidney disease; E11.22 Type 2 diabetes mellitus with diabetic chronic kidney disease; F03.90 Unspecified dementia, unspecified severity, without behavioral disturbance, psychotic disturbance, mood disturbance, and anxiety; E11.621 Type 2 diabetes mellitus with foot ulcer; E11.42 Type 2 diabetes mellitus with diabetic polyneuropathy; E11.69 Type 2 diabetes mellitus with other specified complication; L97.514 Non-pressure chronic ulcer of other part of right foot with necrosis of bone; Z79.4 Long term (current) use of insulin; F32.A Depression, unspecified; Z89.422 Acquired absence of other left toe(s); E78.5 Hyperlipidemia, unspecified; K21.9 Gastro-esophageal reflux disease without esophagitis; I25.10 Atherosclerotic heart disease of native coronary artery without angina pectoris; F41.9 Anxiety disorder, unspecified; I25.5 Ischemic cardiomyopathy; B95.2 Enterococcus as the cause of diseases classified elsewhere; B96.5 Pseudomonas (aeruginosa) (mallei) (pseudomallei) as the cause of diseases classified elsewhere; B96.1 Klebsiella pneumoniae [K. pneumoniae] as the cause of diseases classified elsewhere; B96.6 Bacteroides fragilis [B. fragilis] as the cause of diseases classified elsewhere; B96.89 Other specified bacterial agents as the cause of diseases classified elsewhere; R53.81 Other malaise; N28.89 Other specified disorders of kidney and ureter; Z95.1 Presence of aortocoronary bypass graft; Z79.01 Long term (current) use of anticoagulants; Z79.02 Long term (current) use of antithrombotics/antiplatelets; Z79.82 Long term (current) use of aspirin; Z79.899 Other long term (current) drug therapy
CPT/HCPCS: 36200; 36245; 36415; 37252; 37253; 71045; 73620; 73630; 75625; 75710; 76000; 76937; 80048; 80053; 80202; 82274; 82436; 82550; 82570; 82728; 82962; 83036; 83540; 83550; 83605; 83735; 83935; 84100; 84133; 84300; 84540; 85014; 85018; 85025; 85027; 85347; 85652; 86140; 86850; 86900; 86901; 86920; 87040; 87070; 87075; 87077; 87102; 87184; 87186; 87205; 87206; 87811; 88305; 88311; 93005; 93306; 93923; 93970; 94668; 94762; 97110; 97116; 97162; 97166; 97530; 97535; 97802; 97803; 99152; 99153; 99213; 99252; 99285; A4648; C1753; C1760; C1769; C1887; C1894; J7030; J7040; J7050; P9016; A4216; G0463; J2405

== ENCOUNTER 2023-12-23 16:31 | Emergency (ER) | payer MEDICARE, SELFPAY ==
--- NOTE | 2023-12-23 16:34 | NURSING ---
1627 CODE BLUE CALLED. ETA IS 5 MIN
[2023-12-23 16:52] VITALS: TEMP 35.5; O2SAT 0
--- OUTSIDE RECORDS SUMMARY | 2023-12-23 17:02 | XMS RPT_ITS | CCD ---
Author Name Unknown Address [address] [facility] [address] [place] [address] Organization [facility] Care Team Providers Care Half Sole Fitter Name Role Phone Nga Cordoba Unavailable Unavailable Nga Cordoba Unavailable Unavailable Nga Cordoba Unavailable Unavailable Jumana PICKERING, Radha Bernabe Unavailable Unavailable Medications Completed/Discontinued Medications Medication Drug Class(es) Dates Sig (Normalized) Sig (Original) aspirin 81 mg oral tablet (8 sources) Platelet Aggregation Inhibitor, Nonsteroidal Anti-inflammatory Drug Start: 04-11-2012 take 1 tablet by mouth once daily ASPIRIN 81 MG TABS One tablet by mouth daily ASPIRIN [id number] Radha Denney RN Problems Active Problems Problem Classification Problem Date Documented Date Episodic/Chronic Complication of device; implant or graft (16 sources) Arteriosclerosis of coronary artery bypass graft; Translations: [Atherosclerosis of coronary artery bypass graft(s) without angina pectoris] Onset: 06-30-2014 Resolved: 01-14-2016 07-01-2014 Chronic Congestive heart failure; nonhypertensive (4 sources) Congestive heart failure; Translations: [Heart failure, unspecified] Onset: 04-02-2012 04-02-2012 Chronic Coronary atherosclerosis and other heart disease (12 sources) Coronary arteriosclerosis; Translations: [Generalized ischemic myocardial dysfunction] Onset: 04-02-2012 01-15-2013 Chronic Diabetes mellitus without complication (4 sources) Diabetes mellitus; Translations: [Type 2 diabetes mellitus without complications] Onset: 08-06-2015 08-06-2015 Chronic Disorders of lipid metabolism (4 sources) Hyperlipidemia; Translations: [Hyperlipidemia, unspecified] Onset: 01-15-2013 01-15-2013 Chronic Essential hypertension (4 sources) Hypertensive disorder; Translations: [Essential (primary) hypertension] Onset: 04-02-2012 04-02-2012 Chronic Other nervous system disorders (4 sources) Claudication; Translations: [Peripheral vascular disease, unspecified] Onset: 07-21-2016 07-21-2016 Chronic Kasia-; endo-; and myocarditis; cardiomyopathy (except that caused by tuberculosis or sexually transmitted disease) (4 sources) Cardiomyopathy; Translations: [Cardiomyopathy, unspecified] Onset: 04-02-2012 04-02-2012 Chronic Unclassified (12 sources) Long-term drug therapy; Translations: [Long-term (current) use of other medications] Onset: 04-15-2013 Resolved: 07-23-2015 04-15-2013 Past or Other Problems Problem Classification Problem Date Documented Date Episodic/Chronic Other connective tissue disease (4 sources) Pain in lower limb; Translations: [Pain in leg, unspecified] Onset: 07-21-2016 07-21-2016 Episodic Other lower respiratory disease (8 sources) Dyspnea; Translations: [Shortness of breath] Onset: 10-19-2014 Resolved: 01-14-2016 10-19-2014 Episodic Other screening for suspected conditions (not mental disorders or infectious disease) (8 sources) Electrocardiogram abnormal; Translations: [Abnormal electrocardiogram [ECG] [EKG]] Onset: 04-02-2012 Resolved: 01-14-2016 01-14-2016 Episodic Pleurisy; pneumothorax; pulmonary collapse (8 sources) Pleural effusion; Translations: [Pleural effusion, not elsewhere classified] Onset: 10-27-2014 Resolved: 07-24-2017 07-24-2017 Episodic Results Test Name Value Interpretation Reference Range Facil ity Vital Signs Date Time Vital Sign Value Performing Clinician Ekta otoole 08-01-2017 10:24-0400 BMI (Body Mass Index) 24.44 kg/m2 Nga Weller [facility] Work Phone: 08-01-2017 10:24-0400 BP Diastolic 58 mm[Hg] [facility] Work Phone: 08-01-2017 10:24-0400 BP Systolic 108 mm[Hg] Nga Weller [facility] [employer] Work Phone: 08-01-2017 10:24-0400 Height 162.56 cm Nga Weller [facility] Work Phone: 08-01-2017 10:24-0400 Pulse (Heart Rate) 58 /min Nga [facility] Work Phone: 08-01-2017 10:24-0400 Respiratory Rate 12 /min Nga [facility] Work Phone: 08-01-2017 10:24-0400 Weight 64.59 kg Nga [facility] Work Phone: 01-30-2017 08:46-0400 BMI (Body Mass Index) 24.2 kg/m2 Radha [facility] Work Phone: 01-30-2017 08:46-0400 BP Diastolic 60 mm[Hg] Radha Denney RN [facility] Work Phone: 01-30-2017 08:46-0400 BP Systolic 122 mm[Hg] Radha Denney RN [facility] Work Phone: 01-30-2017 08:46-0400 Height 162.56 cm Radha Denney RN [facility] Work Phone: 01-30-2017 08:46-0400 Pulse (Heart Rate) 72 /min Radha Denney RN [facility] Work Phone: 01-30-2017 08:46-0400 Respiratory Rate 18 /min Radha Denney RN [facility] Work Phone: 01-30-2017 08:46-0400 Weight 63.96 kg Radha Denney RN [facility] Work Phone: 07-21-2016 12:49-0400 BSA (Body Surface Area) 1.7 m2 Radha Denney RN [facility] Work Phone: 07-01-2014 14:59-0400 Heart rate 81 /min Radha Denney RN [facility] Work Phone: 07-01-2014 14:35-0400 Body Temperature 98.7 [degF] Radha Denney RN [facility] Work Phone: Procedures Date Procedure Procedure Detail Performing Clinician Start: 05-27-2019 Electrocardiogram Start: 08-01-2017 End: 08-01-2017 MANAGER OF CLINICAL Traci Gan PA-C Work Phone: Start: 08-01-2017 End: 08-01-2017 Follow Up Appt 6 months Traci akers PA-C Work Phone: Start: 07-26-2017 End: 08-01-2017 *Hepatic Function Panel Traci akers PA-C Work Phone: Start: 07-26-2017 End: 08-01-2017 Lipid 1996 panel - Serum or Plasma Traci Gan PA-C Work Phone: Start: 01-30-2017 End: 07-17-2017 Follow Up Appt 6 months Larry Meneses Start: 01-30-2017 End: 07-17-2017 CLARK Zabala MD Start: 07-21-2016 End: 07-17-2017 Arterial exam Traci Gan PA-C Work Phone: Start: 07-21-2016 End: 07-21-2016 MANAGER OF CLINICAL Traci Gan PA-C Work Phone: Start: 07-21-2016 End: 07-21-2016 Follow Up Appt 6 months Traci akers PA-C Work Phone: Start: 01-24-2016 End: 01-23-2017 *Hepatic Function Panel Traci akers PA-C Work Phone: Start: 01-24-2016 End: 01-23-2017 Lipid 1996 panel - Serum or Plasma Traci Gan PA-C Work Phone: Start: 01-21-2016 End: 01-21-2016 Follow Up Appt 6 months Larry Meneses Start: 01-21-2016 End: 01-21-2016 CLARK Zabala MD Start: 08-06-2015 End: 07-05-2016 MANAGER OF CLINICAL Traci Gan PA-C Work Phone: Start: 08-06-2015 End: 07-05-2016 Follow Up Appt 6 months Traci akers PA-C Work Phone: Start: 07-21-2015 End: 07-21-2015 *Hepatic Function Panel Traci akers PA-C Work Phone: Start: 07-21-2015 End: 07-21-2015 Lipid 1996 panel - Serum or Plasma Traci Gan PA-C Work Phone: Start: 01-28-2015 End: 01-29-2015 Documentation of current medications Napoleon Zabala MD Start: 01-28-2015 End: 01-28-2015 Follow Up Appt 6 months Larry Meneses Start: 01-28-2015 End: 01-28-2015 MMM Napoleon Zabala MD Start: 01-19-2015 End: 01-19-2015 *Hepatic Function Panel Traci akers PA-C Work Phone: Start: 01-19-2015 End: 01-19-2015 Lipid 1996 panel - Serum or Plasma Traci Gan PA-C Work Phone: Start: 10-28-2014 End: 01-28-2015 *BMP Napoleon Zabala MD Start: 10-28-2014 End: 10-28-2014 MANAGER OF CLINICAL Napoleon Zabala MD Start: 10-28-2014 End: 10-29-2014 Documentation of current medications Napoleon Zabala MD Start: 10-28-2014 End: 10-28-2014 Follow Up Appt 3 months Larry Meneses Start: 09-23-2014 End: 09-23-2014 Follow Up Appt 6 months Larry Meneses Start: 09-23-2014 End: 09-23-2014 MMLarry Zabala MD Start: 07-01-2014 End: 07-23-2014 *Hepatic Function Panel Larry Meneses Start: 07-01-2014 End: 01-28-2015 Cardiac Rehab Napoleon Zabala MD Start: 07-01-2014 End: 01-28-2015 MANAGER OF CLINICAL Napoleon Zabala MD Start: 07-01-2014 End: 07-06-2014 Ecg routine ecg w/least 12 lds w/i&r Napoleon Zabala MD Start: 07-01-2014 End: 07-06-2014 Echocardiography Napoleon Zabala MD Start: 07-01-2014 End: 01-28-2015 Follow Up Appt 3 months Larry Meneses Start: 07-01-2014 End: 07-23-2014 Lipid 1996 panel - Serum or Plasma Napoleon Zabala MD Start: 11-13-2013 End: 11-13-2013 Follow Up Appt 6 months Larry Meneses Start: 11-13-2013 End: 11-13-2013 MM Napoleon Zabala MD Start: 09-14-2013 End: 11-11-2013 *Hepatic Function Panel Larry Meneses Start: 09-14-2013 End: 11-11-2013 Lipid 1996 panel - Serum or Plasma Napoleon Zabala MD Start: 05-27-2013 End: 05-27-2013 MANAGER OF CLINICAL Traci Gan PA-C Work Phone: Start: 05-27-2013 End: 05-27-2013 Follow Up Appt 2 months Traci akers PA-C Work Phone: Start: 01-15-2013 End: 04-09-2013 *Hepatic Function Panel Larry Meneses Start: 01-15-2013 End: 01-15-2013 Follow Up Appt 4 months Larry Meneses Start: 01-15-2013 End: 04-09-2013 Lipid 1996 panel - Serum or Plasma Napoleon Zabala MD Start: 01-15-2013 End: 01-15-2013 MMM Napoleon Zabala MD Start: 07-12-2012 End: 01-09-2013 Echocardiography Napoleon Zabala MD Start: 07-12-2012 End: 07-12-2012 Follow Up Appt 6 months Larry Meneses Start: 04-08-2012 End: 04-08-2012 Nurse Teaching (no charge) Napoleon Zabala MD Start: 04-04-2012 End: 04-08-2012 *BMP Napoleon Zabala MD Start: 04-04-2012 End: 04-08-2012 *CBC with Differential Napoleon Zabala MD Start: 04-04-2012 End: 11-11-2013 Follow Up Appt 3 months Larry Meneses Start: 04-04-2012 End: 04-16-2012 Left Heart Cath Napoleon Zabala MD Start: 04-04-2012 End: 04-08-2012 Natriuretic peptide B [Mass/volume] in Blood Napoleon Zabala MD Plan of Treatment Date Care Activity Detail Author Start: 02-08-2018 End: 08-01-2017 *Hepatic Function Panel *Hepatic Function Panel [facility] Work Phone: Start: 02-08-2018 End: 08-01-2017 Lipid panel [AGGREGATE] *Lipid Profile CC PCP [facility] Work Phone: Start: 02-07-2018 End: 02-07-2018 Appointment Appointment [facility] Work Phone: Start: 08-01-2017 End: 08-01-2017 MANAGER OF CLINICAL MANAGER OF CLINICAL [facility] Work Phone: Start: 08-01-2017 End: 08-01-2017 Follow Up Appt 6 months Follow Up Appt 6 months [facility] Work Phone: Start: 08-01-2017 End: 08-01-2017 Appointment Appointment [facility] Work Phone: Start: 07-26-2017 End: 08-01-2017 *Hepatic Function Panel *Hepatic Function Panel [facility] Work Phone: Start: 07-26-2017 End: 08-01-2017 Lipid panel [AGGREGATE] *Lipid Profile CC PCP [facility] Work Phone: Start: 01-30-2017 End: 07-17-2017 Follow Up Appt 6 months Follow Up Appt 6 months [facility] Work Phone: Start: 01-30-2017 End: 07-17-2017 MMM MMM [facility] Work Phone: Start: 01-30-2017 End: 02-06-2017 Office outpatient visit 25 minutes [id number] Ofc Vst, Est Level IV [facility] Work Phone: Start: 07-21-2016 End: 07-21-2016 Arterial exam Arterial exam [facility] Work Phone: Start: 07-21-2016 End: 07-21-2016 MANAGER OF CLINICAL MANAGER OF CLINICAL [facility] Work Phone: Start: 07-21-2016 End: 07-21-2016 Follow Up Appt 6 months Follow Up Appt 6 months [facility] Work Phone: Start: 01-24-2016 End: 01-23-2017 *Hepatic Function Panel *Hepatic Function Panel [facility] Work Phone: Start: 01-24-2016 End: 01-23-2017 Lipid panel [AGGREGATE] *Lipid Profile CC PCP [facility] Work Phone: Start: 01-21-2016 End: 01-21-2016 Follow Up Appt 6 months Follow Up Appt 6 months [facility] Work Phone: Start: 01-21-2016 End: 01-21-2016 MMM MMM [facility] Work Phone: Start: 08-06-2015 End: 07-05-2016 MANAGER OF CLINICAL MANAGER OF CLINICAL [facility] Work Phone: Start: 08-06-2015 End: 08-06-2015 Follow Up Appt 6 months Follow Up Appt 6 months [facility] Work Phone: Start: 07-21-2015 End: 07-21-2015 *Hepatic Function Panel *Hepatic Function Panel [facility] Work Phone: Start: 07-21-2015 End: 07-21-2015 Lipid panel [AGGREGATE] *Lipid Profile CC PCP [facility] Work Phone: Start: 01-28-2015 End: 01-28-2015 Follow Up Appt 6 months Follow Up Appt 6 months [facility] Work Phone: Start: 01-28-2015 End: 01-28-2015 MMM MMM [facility] Work Phone: Start: 01-25-2015 End: 01-19-2015 *Hepatic Function Panel *Hepatic Function Panel [facility] Work Phone: Start: 01-25-2015 End: 01-19-2015 Lipid panel [AGGREGATE] *Lipid Profile CC PCP [facility] Work Phone: Start: 10-28-2014 End: 01-28-2015 *BMP *BMP [facility] Work Phone: Start: 10-28-2014 End: 10-28-2014 [facility] Work Phone: Start: 10-28-2014 End: 10-28-2014 Follow Up Appt 3 months Follow Up Appt 3 months [facility] Work Phone: Start: 09-23-2014 End: 09-23-2014 Follow Up Appt 6 months Follow Up Appt 6 months [facility] Work Phone: Start: 09-23-2014 End: 09-23-2014 MMM MMM [facility] Work Phone: Start: 07-01-2014 End: 07-23-2014 *Hepatic Function Panel *Hepatic Function Panel [facility] Work Phone: Start: 07-01-2014 End: 01-28-2015 Cardiac Rehab [facility] Work Phone: Start: 07-01-2014 End: 01-28-2015 MANAGER OF CLINICAL MANAGER OF CLINICAL [facility] Work Phone: Start: 07-01-2014 End: 07-06-2014 Ecg routine ecg w/least 12 lds w/i&r EKG (In office) [facility] Work Phone: Start: 07-01-2014 End: 07-02-2014 Echocardiography Echocardiogram (complete) [facility] Work Phone: Start: 07-01-2014 End: 01-28-2015 Follow Up Appt 3 months Follow Up Appt 3 months [facility] Work Phone: Start: 07-01-2014 End: 07-23-2014 Lipid panel [AGGREGATE] *Lipid Profile CC PCP [facility] Work Phone: Start: 11-13-2013 End: 11-13-2013 Follow Up Appt 6 months Follow Up Appt 6 months [facility] Work Phone: Start: 11-13-2013 End: 11-13-2013 MMM MMM [facility] Work Phone: Start: 09-14-2013 End: 11-11-2013 *Hepatic Function Panel *Hepatic Function Panel [facility] Work Phone: Start: 09-14-2013 End: 11-11-2013 Lipid panel [AGGREGATE] *Lipid Profile CC PCP [facility] Work Phone: Start: 05-27-2013 End: 05-27-2013 MANAGER OF CLINICAL MANAGER OF CLINICAL [facility] Work Phone: Start: 05-27-2013 End: 05-27-2013 Follow Up Appt 2 months Follow Up Appt 2 months [facility] Work Phone: Start: 01-15-2013 End: 04-09-2013 *Hepatic Function Panel *Hepatic Function Panel [facility] Work Phone: Start: 01-15-2013 End: 01-15-2013 Follow Up Appt 4 months Follow Up Appt 4 months [facility] Work Phone: Start: 01-15-2013 End: 04-09-2013 Lipid panel [AGGREGATE] *Lipid Profile [facility] Work Phone: Start: 01-15-2013 End: 01-15-2013 MMM MMM [facility] Work Phone: Start: 07-12-2012 End: 07-12-2012 Echocardiography Echocardiogram (complete) [facility] Work Phone: Start: 07-12-2012 End: 07-12-2012 Follow Up Appt 6 months Follow Up Appt 6 months [facility] Work Phone: Start: 04-04-2012 End: 04-08-2012 *BMP *BMP [facility] Work Phone: Start: 04-04-2012 End: 04-08-2012 *CBC with Differential *CBC with Differential [facility] Work Phone: Start: 04-04-2012 End: 04-08-2012 BNP *Brain Natriuretic Peptide BNP [facility] Work Phone: Start: 04-04-2012 End: 11-11-2013 Follow Up Appt 3 months Follow Up Appt 3 months [facility] Work Phone: Start: 04-04-2012 End: 04-08-2012 Left Heart Cath Left Heart Cath [facility] Work Phone: Patient Education [facility] Work Phone: Summary Purpose Family History No Family History Records FoundNo Family History Records Found Advance Directives No Advanced Directives Records FoundNo Advanced Directives Records Found Additional Source Comments (unrecognized sect ion and content) No Status Records FoundNo Status Records Found INFORMATION SOURCE (unrecogn ized section and content) DATE CREATED AUTHOR AUTHOR'S ORGANIZ ATION 07/14/2019 [facility] FOR RECORDS PERTAINING TO PATIENTS WHO ARE OR HAVE BEEN ENROLLED IN A CHEMICAL DEPENDENCY/SUBSTANCEABUSE PROGRAM, SOME INFORMATION MAY BE OMITTED. This clinical summary was aggregated from multiple sources. Caution should be exercised in using it in the provision of clinical care. This summary normalizes information from multiple sources, and as a consequence, information in this document may materially change the coding, format and clinical context of patient data. In addition, data may be omitted in some cases. CLINICAL DECISIONS SHOULD BE BASED ON THE PRIMARY CLINICAL RECORDS. [email or web address] provides no warranty or guarantee of the accuracy or completeness of information in this document.
--- NOTE | 2023-12-23 17:06 | EX.ED.CRITCA ---
HPI History of Present Illness Chief Complaint: CPR Informant: spouse/S.O. and EMS Narrative Narrative: 78-year-old male with multiple medical problems including ischemic cardiomyopathy renal disease and dementia. Patient reportedly is at [facility] and his states was having a significant amount of coughing when he suddenly went unresponsive. EMS was called and they are presenting rhythm on their arrival was asystole. EMS notes this began CPR and gave 4 epinephrine treatments. Patient remained in asystole. Upon arrival to emergency department he has had CPR for approximately 30 minutes continuously using Oli device. Patient was recently admitted to the hospital with complications of diabetes and had a right femoral-PT bypass with cadaver GSV. [facility] Medical History Anemia Anemia of chronic renal failure, stage 4 (severe) Anxiety Atherosclerosis of coronary artery bypass graft without angina pectoris Atherosclerosis of [place] artery of lower extremity with ulceration of foot Bilateral pleural effusion Callus of foot Cellulitis of left lower limb Chronic HFrEF (heart failure with reduced ejection fraction) Chronic renal failure, stage 4 (severe) Claudication of both lower extremities Congestive heart failure (CHF) Delayed wound healing Dermatitis of left foot Dermatomycosis of foot Diabetes Diabetes mellitus type 2 in nonobese Diabetes mellitus with neuropathy Diabetic foot ulcer associated with diabetes mellitus due to underlying condition Elevated PSA, between 10 and less than 20 ng/ml Eschar of foot Essential (primary) hypertension GERD (gastroesophageal reflux disease) Hammertoe of left foot HLD (hyperlipidemia) Hypertension Hypokalemia Incarcerated right inguinal hernia Ischemic cardiomyopathy Malnutrition Mass of right breast Non-pressure chronic ulcer of other part of left foot with fat layer exposed Non-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 09/29/14 [History Last Taken 02/03/21 06:00] pantoprazole 40 mg tablet,delayed release 40 mg PO DAILY acid reflux 30 days #30 tabs 02/07/18 [History Last Taken 02/04/21 06:00] ferrous sulfate 325 mg (65 mg iron) tablet 325 mg PO DAILY@1200 iron supplement 03/19/19 [History Last Taken 05/26/19] trazodone 50 mg tablet 50 mg PO QHS PRN Sleep 09/22/20 [History Last Taken Unknown] gabapentin 100 mg capsule 100 mg PO QHS 12/22/20 [History Last Taken Unknown] escitalopram oxalate 20 mg tablet 20 mg PO DAILY 03/29/22 [History Last Taken Unknown] carvedilol 12.5 mg tablet 12.5 mg PO BID #180 tabs 04/23/23 [Rx Last Taken Unknown] clopidogrel 75 mg tablet 75 mg PO DAILY #90 tabs 07/23/23 [Rx Last Taken Unknown] insulin glargine 100 unit/mL (3 mL) subcutaneous pen 15 unit subcut BID 12/04/23 [History Last Taken Unknown] atorvastatin 80 mg tablet 80 mg PO QHS cholesterol 12/06/23 [History Last Taken Unknown] hydralazine 25 mg tablet 25 mg PO TID PRN anxiety 12/06/23 [History Last Taken Unknown] acetaminophen 325 mg tablet 650 mg (2 x 325 mg) PO Q6H PRN PRN Pain 1-10 Or Fever >100.7 #0 tabs 12/22/23 [Rx Last Taken Unknown] furosemide 20 mg tablet 40 mg (2 x 20 mg) PO DAILY 90 days #270 tabs 12/22/23 [Rx Last Taken Unknown] insulin lispro 100 unit/mL subcutaneous pen (Humalog KwikPen (U-100) Insulin) See Protocol subcut ACHS #0 mL 12/22/23 [Rx Last Taken Unknown] menthol 0.44 %-zinc oxide 20.6 % topical ointment (Calmoseptine) 1 applic topical BID #0 grams 12/22/23 [Rx Last Taken Unknown] oxycodone 5 mg tablet 2.5 - 5 mg (0.5 - 1 x 5 mg) PO Q4H PRN PRN Pain Score 4-10 3 days #10 tabs 12/22/23 [Rx Last Taken Unknown] polyethylene glycol 3350 17 gram oral powder packet 17 g PO DAILY #0 ea 12/22/23 [Rx Last Taken Unknown] sennosides 8.6 mg-docusate sodium 50 mg tablet (Stool Softener-Stimulant Laxative) 2 tab PO BID #0 tabs 12/22/23 [Rx Last Taken Unknown] Allergy/AdvReac Type Severity Reaction Status Date / Time atorvastatin [From Lipitor] AdvReac Mild myalgias Verified 12/06/23 11:14 Family History Brother CAD (coronary artery disease) Hx CABG Surgical History Amputated toe of left foot (01/2021) H/O coronary artery bypass surgery (04/30/14) History of angioplasty of peripheral vessel (01/20/21) History of inguinal hernia repair History of left heart catheterization (LHC) (03/20/19) History of right breast biopsy (03/2021) History of right inguinal hernia repair (03/2018) History of thoracentesis Social History Smoking Status: Never smoker alcohol intake: never substance use type: does not use caffeine: No what type of physical activity do you participate in: none seatbelt use: always do you feel safe at home: Yes ROS ROS ED Review of Systems ROS Unobtainable: due to mental status EXAM Physical Exam Const Vital Signs: 12/23/23 16:33 12/23/23 16:52 12/23/23 16:52 Temperature 96 F L Temperature Source Temporal Respiratory Effort Agonal Respiratory Pattern Gasping Oxygen Delivery Method Ambu-Bag Positive well nourished and well developed General Appearance ED: well developed HEENT Reports normocephalic, head/scalp atraumatic and moist mucous membranes HEENT Narrative: I gel in the oral pharynx having bagged respirations Eyes Eyes Narrative: Pupils are fixed at 4 mm no corneal reflex Neck no lymphadenopathy, supple and no JVD Resp Resp Narrative: Bagged respirations Rales on auscultation pink frothy sputum and tube Cardio Cardio Narrative: Asystole GI GI Narrative: Slightly distended abdomen. Purpleish bruising consistent with subcutaneous injections noted in the infraumbilical region Palpation: soft Neuro Neuro Narrative: Patient is unresponsive with no response to pain MDM MDM MDM Narrative Medical decision making narrative: Patient was brought into the resuscitation bay. CPR was continued. I asked if the wish to be back into the room. She asked if I would come to the waiting room and speak with her. I informed the that the patient has been in asystole and has had no response to CPR. It is her wish to treatment be stopped. Patient was pronounced at 1635 hrs. was with him when CPR was discontinued. Discharge Plan Triage Chief Complaint: CPR ED Provider: Trev Henry Dx/Rx/DC Orders Clinical Impression: Type 2 diabetes mellitus, Cardiopulmonary arrest, Ischemic cardiomyopathy Prescriptions: No Action pantoprazole 40 mg tablet,delayed release (DR/EC) 40 mg PO DAILY 30 Days Qty: 30 escitalopram oxalate 20 mg tablet 20 mg PO DAILY aspirin 81 MG tablet,chewable 81 mg PO DAILY@0800 ferrous sulfate 325 MG tablet 325 mg PO DAILY@1200 trazodone 50 MG tablet 50 mg PO QHS PRN (Reason: Sleep) insulin glargine 100 unit/mL (3 mL) insulin pen 15 unit subcut BID gabapentin 100 MG capsule 100 mg PO QHS atorvastatin 80 mg tablet 80 mg PO QHS hydralazine 25 mg tablet 25 mg PO TID PRN (Reason: anxiety) polyethylene glycol 3350 17 gram Powder In Packet 17 g PO DAILY Qty: 0 0RF sennosides-docusate sodium [Stool Softener-Stimulant Laxat] 8.6-50 mg Tablet 2 tab PO BID Qty: 0 0RF oxycodone 5 mg Tablet 2.5 - 5 mg PO Q4H PRN PRN (Reason: Pain Score 4-10) 3 Days Qty: 10 0RF Rx Instructions: Oxycodone 2.5 mg for moderate pain and 5 mg for severe pain respectively. acetaminophen 325 mg Tablet 650 mg PO Q6H PRN PRN (Reason: Pain 1-10 Or Fever >100.7) Qty: 0 0RF insulin lispro [Humalog KwikPen Insulin] 100 unit/mL Insulin Pen See Protocol subcut ACHS Qty: 0 0RF Protocol: 4. Sliding Scale Insulin High-Med Dosing Condition: 150-199 mg/dl = 2 units Condition: 200-259 mg/dl = 4 units Condition: 260-324 mg/dl = 6 units Condition: 325-374 mg/dl = 8 units Condition: 375-409 mg/dl = 10 units Condition: 410-449 mg/dl = 11 units Condition: Greater than 449 call physician Protocol Text: - Use for Total Daily Dose of Insulin 56-80 units - Patient who are insulin resistant or septic HIGH MEDIUM DOSING ALGORITHM menthol-zinc oxide [Calmoseptine] 0.44-20.6 % Ointment 1 applic topical BID Qty: 0 0RF Protocol: *Topical Application Instructions APPLICATION INSTRUCTIONS: coccyx furosemide 20 mg tablet 40 mg PO DAILY 90 Days Qty: 270 3RF carvedilol 12.5 mg tablet 12.5 mg PO BID Qty: 180 3RF clopidogrel 75 mg tablet 75 mg PO DAILY Qty: 90 3RF Primary Care Provider: Elvia Cobian Referrals: Elvia Cobian, [Primary Care Provider] - Disposition Disposition: Date/Time: 12/23/23 16:35
[2023-12-23 18:55] VITALS: BP 0/0; PULSE 0; RESP 0; TEMP -17.7; TEMP 0; O2SAT 0
== END 2023-12-23 18:58 ==
PROVIDERS: Emergency Provider Emergency Medicine; PCP Family Medicine; Visit Provider Emergency Medicine
DX: I46.9 Cardiac arrest, cause unspecified (principal); E11.51 Type 2 diabetes mellitus with diabetic peripheral angiopathy without gangrene; F03.90 Unspecified dementia, unspecified severity, without behavioral disturbance, psychotic disturbance, mood disturbance, and anxiety; I50.22 Chronic systolic (congestive) heart failure; E11.22 Type 2 diabetes mellitus with diabetic chronic kidney disease; N18.4 Chronic kidney disease, stage 4 (severe); I25.5 Ischemic cardiomyopathy
CPT/HCPCS: 99281